=== PATIENT | male | born 1940 | race Caucasian/White ===

== ENCOUNTER 2018-11-23 19:22 | Inpatient (IN) | payer MEDICARE, OTHER ==
[~2018-11-23] VITALS: Ht 172.7 cm; Wt 110.0 kg
[2018-11-23] MEDS: FUROSEMIDE 40 MG INJ IV ONE ×2 (00:45→23:02)
[~2018-11-23 19:22] MED LIST: ARIP5TAB14 PO; ASPI-535 PO; ATEN50TA PO; BENA20TA4 PO; CALC-143 PO; DIGO250T6 PO; DILT120C10 PO; ESCI20TA38 PO; FURO80TA3 PO; HYDR-3672 PO; IBUP-1542 PO; LORA10TA3 PO; METF-849 PO; MULTI PO; PANT40TA4 PO; PIOG30TA71 PO; POTA8CAP PO; TAMS0.4C2 PO
[2018-11-23] MEDS ORDERED: LEVOFLOXACIN 750MG/D5W (PMX) 150 ML IVPB STA (19:32)
[2018-11-23] MEDS ORDERED: ALBUTEROL 0.5% (NEB) 2.5 MG/0.5 ML AMP INH STA (19:32)
[2018-11-23] MEDS ORDERED: CEFTRIAXONE 1 GM/50 ML (PMX) 50 ML IVPB STA (19:32)
--- NOTE | 2018-11-23 20:16 | ERD ---
ER Documentation Chief Complaint Chief Complaint PRATIK ROBERT,from home,low O2 sat 74% RA,wheezing,lethargic HPI This is a 78-year-old man from home who was brought in for difficulty breathing and decreased mental status. The patient is a very poor historian but can tell me that he is been ill lately with a cough and malaise and possible fever. He started wheezing and have a difficult time breathing gradually this afternoon. He says he is not in any discomfort. Patient was discharged from this hospital last night. ROS All systems reviewed and are negative except as per history of present illness. Medications Home Meds Active Scripts Pantoprazole (Protonix) 40 Mg Tabec, 40 MG PO BID, #60 TAB 1 Refill Prov:IVY GARCIANAYANA S. 11/22/18 Reported Medications Calcium Citrate/Vitamin D (Citracal-Vitamin D 200 MG-250) 1 Each Tablet, 1 EACH PO BID, TAB 11/19/18 Ibuprofen* (Ibuprofen*) 600 Mg Tablet, 600 MG PO Q6H PRN for PAIN LEVEL 1-5, TAB 11/19/18 Hydralazine Hcl* (Hydralazine Hcl*) 50 Mg Tablet, 50 MG PO Q6H, #60 TAB 11/19/18 Metformin* (Glucophage*) 500 Mg Tab, 500 MG PO WITH BREAKFAST, #30 TAB 11/19/18 Multivitamins* (Theragran*) 1 Tab Tab, 1 TAB PO DAILY, TAB 11/19/18 Aripiprazole* (Abilify*) 5 Mg Tab, 5 MG PO DAILY, #30 TAB 11/19/18 Diltiazem Hcl* (Cardizem SR*) 120 Mg Cap.sr.12h, 120 MG PO Q12, CAP 11/19/18 Pioglitazone Hcl* (Pioglitazone Hcl*) 30 Mg Tablet, 30 MG PO DAILY, TAB 11/19/18 Escitalopram Oxalate* (Escitalopram Oxalate*) 20 Mg Tablet, 20 MG PO DAILY, #30 TAB 11/19/18 Benazepril Hcl* (Benazepril Hcl*) 20 Mg Tablet, 20 MG PO DAILY, #30 TAB 11/19/18 Tamsulosin Hcl* (Tamsulosin Hcl*) 0.4 Mg Cap.er.24h, 0.4 MG PO HS, CAP 11/19/18 Aspirin Ec (Aspir 81) 81 Mg Tablet.dr, 81 MG PO DAILY, #30 TAB 11/19/18 Loratadine* (Loratadine*) 10 Mg Tablet, 10 MG PO DAILY, #30 TAB 11/19/18 Potassium Chloride* (Potassium Chloride*) 8 Meq Capsule.er, 8 MEQ PO DAILY, CAP 11/19/18 Furosemide* (Furosemide*) 80 Mg Tablet, 80 MG PO DAILY, #30 TAB 11/19/18 Atenolol* (Atenolol*) 50 Mg Tablet, 50 MG PO DAILY, #30 TAB 11/19/18 Digoxin* (Lanoxin*) 0.25 Mg Tablet, 0.25 MG PO DAILY, TAB 11/19/18 Allergies Allergies: Coded Allergies: No Known Allergy (Unverified , 11/19/18) PMhx/Soc History of Surgery: Yes (HX: ) Anesthesia Reaction: No Hx Neurological Disorder: No Hx Respiratory Disorders: No Hx Cardiac Disorders: Yes (CHF, HTN) Hx Psychiatric Problems: No Hx Miscellaneous Medical Probl: Yes (pls see EMR) Hx Alcohol Use: Yes Hx Substance Use: No Hx Tobacco Use: No Smoking Status: Never smoker FmHx Family History: No coronary disease Physical Exam Vitals Vital Signs Date Temp Pulse Resp B/P (MAP) Pulse Ox O2 O2 Flow FiO2 Time Delivery Rate 11/23/18 115 27 112/71 99 BIPAP 21:30 (85) 11/23/18 115 26 137/70 95 BIPAP 21:00 (92) 11/23/18 116 96 40 20:40 11/23/18 118 20 129/75 100 BIPAP 20:30 (93) 11/23/18 117 31 119/65 100 BIPAP 20:09 (83) 11/23/18 Non 15.0 19:49 Rebreathe r 11/23/18 Non 15 19:49 Rebreathe r 11/23/18 113 21 114/59 99 BIPAP 19:30 (77) 11/23/18 101.7 103 21 124/96 74 19:23 (105) Physical Exam Const: Well-developed, well-nourished Head: Atraumatic, normocephalic Eyes: Normal Conjunctiva, PERRLA, EOMI, normal sclera, no nystagmus ENT: Normal External Ears, Nose and Mouth, moist mucus membranes. Neck: Full range of motion. No meningismus, no lymphadenopathy. Resp: Moderate increased work of breathing, bilateral rhonchi and wheezes decreased breath sounds in the bases Cardio: Regular rate and rhythm, no murmurs, S1 S2 present Abd: Soft, non tender x 4, non distended. Normal bowel sounds, no guarding or rebound, no pulsitile abdominal masses or bruits Skin: No petechiae or rashes, no ecchymosis , no maculopapular rash Back: No midline or flank tenderness Ext: No cyanosis, or edema, FROM x 4, normal inspection, neurovascularly intact x 4 Neur: Groggy but arousable, STR 5/5 x 4, sensation intact x 4, no focal findings, cerebellum intact] Psych: Normal Mood and Affect Result Diagram: 11/23/18200611/23/182006 Results 24 hrs Laboratory Tests Test 11/23/18 19:32 11/23/18 19:59 11/23/18 20:06 11/23/18 20:07 Blood Gas Blood venous Specimen Source Arterial Blood 11/23/2018 7:50:43 Date Drawn PM Arterial Blood VENOUS LINE Gas Puncture Site Nilson Test N/A Venous Blood pH 7.257 Venous Blood pCO2 73.3 mmHG (Temp Corrected) Venous Blood pO2 42.3 mmHG (Temp Corrected) Venous Blood HCO3 31.9 mmol/L Venous Blood 66.2 mmHG Oxygen Saturation Venous Blood Base 3.2 mmol/L Excess Venous Blood 11.1 g/dl Total Hemoglobin Venous Blood 64.7 % Oxyhemoglobin Venous Blood 0.3 % Methemoglobin Carboxyhemoglobin 2.0 % Blood Gas 37.0 C Temperature Blood Gas Actual 24 Respiration Rate Blood Gas NRM Modality FiO2 100.0 % Blood Gas Suresh BENÍTEZ Critical Value Read Back Blood Gas BL Notified Whom Blood Gas 11/23/2018 8:17:21 Notified Time PM POC Venous 2.6 mmol/L Lactate Digoxin Level 0.7 ng/ml White Blood Count 11.3 10^3/ul Red Blood Count 4.76 10^6/ul Hemoglobin 9.6 g/dl Hematocrit 37.4 % Mean Corpuscular 78.6 fl Volume Mean Corpuscular 20.2 pg Hemoglobin Mean Corpuscular 25.7 g/dl Hemoglobin Concen t Red Cell 29.1 % Distribution Width Platelet Count 207 10^3/UL Mean Platelet fl Volume Immature 0.700 % Granulocytes % Neutrophils % 80.0 % Lymphocytes % 9.8 % Monocytes % 7.6 % Eosinophils % 1.0 % Basophils % 0.9 % Nucleated Red 0.2 /100WBC Blood Cells % Immature 0.080 10^3/ul Granulocytes # Neutrophils # 9.0 10^3/ul Lymphocytes # 1.1 10^3/ul Monocytes # 0.9 10^3/ul Eosinophils # 0.1 10^3/ul Basophils # 0.1 10^3/ul Nucleated Red 0.0 10^3/ul Blood Cells # Prothrombin Time 17.3 Sec Prothrombin Time 1.4 Ratio INR International 1.40 Normalized Ratio Activated 38.1 Sec Partial Thrombopl ast Time Sodium Level 147 mmol/L Potassium Level 4.2 mmol/L Chloride Level 101 mmol/L Carbon Dioxide 31 mmol/L Level Anion Gap 15 Blood Urea 39 mg/dl Nitrogen Creatinine 2.07 mg/dl Est Glomerular mL/min Filtrat Rate mL/min Glucose Level 183 mg/dl Calcium Level 8.8 mg/dl Total Bilirubin 0.5 mg/dl Direct Bilirubin 0.00 mg/dl Indirect 0.5 mg/dl Bilirubin Aspartate Amino 38 IU/L Transf (AST/SGOT) Alanine 50 IU/L Aminotransferase (ALT/SGPT) Alkaline 66 IU/L Phosphatase Troponin I 0.851 ng/ml B-Type 36465 PG/ML Natriuretic Peptide Total Protein 6.8 g/dl Albumin 3.6 g/dl Globulin 3.20 g/dl Albumin/Globulin 1.12 Ratio Current Medications Medications Dose Sig/Mare Start Time Status Last (Trade) Ordered Route PRN Stop Time Admin Dose Reason Admin Albuterol 10 mg ONCE STAT 11/23/18 DC 11/23/18 (Proventil INH 19:32 11/23/18 20:10 0.5% (Neb)) 19:35 Ceftriaxone 50 ml @ ONCE STAT 11/23/18 DC 11/23/18 Sodium 100 mls/hr IVPB 19:32 11/23/18 20:29 20:01 150 ml @ ONCE STAT 11/23/18 DC 11/23/18 Levofloxacin/ 100 mls/hr IVPB 19:32 11/23/18 20:47 Dextrose 21:01 Sodium 3,140 ml BOLUS OVER 2 11/23/18 DC 11/23/18 Chloride HOURS STAT 20:25 11/23/18 20:30 (NS) IV* 20:27 Enoxaparin 105 mg ONCE ONCE 11/23/18 DC Sodium SC 21:30 11/23/18 (Lovenox) 21:31 Procedures/MDM EKG: Rate/Rhythm: Atrial fibrillation rapid ventricular response heart rate 101, left axis deviation, right bundle branch block QRS, ST, QT: NORMAL AL, QRS, QT] Impression: Abnormal EKG MR #: [id number] DOS: 11/23/181931 Ordering MD: DANICA HALL DO Location: E/R Room/Bed: PROCEDURE: Portable chest x-ray. CLINICAL INDICATION: Shortness of breath. TECHNIQUE: Portable AP view of the chest. COMPARISON: None. FINDINGS: There are patchy bilateral lower lung opacities. The cardiac silhouette is enlarged. There is a small right pleural effusion. There is no pneumothorax. IMPRESSION: Patchy bilateral lower lung opacities, possibly representing pulmonary edema or pneumonia. Enlarged cardiac silhouette. Small right pleural effusion. RPTAT: HTAR .Mor Alvarado MD, MD Date Time Electronically viewed and signed by .Mor Alvarado MD, MD on 11/23/2018 20:16 .R/ CC: DANICA HALL DO [id number] The patient was put on BiPAP. After BiPAP the patient has improved mentally. His ABG showed elevated CO2. He is clinically improving and we will get another ABG soon Patient has elevated troponins likely due to cardiac sweating due to sepsis, he was treated with Lovenox Admit MDM: Patient's infectious symptoms have not stabilized and the patient is at risk of rapid decompensation. The patient will be admitted for careful hydration, antibiotic therapy, and infectious source control. Severe Sepsis criteria: Infectious source: Pneumonia End organ damage indicated by: Evaded lactate Lactate > 2.0 mmol/L Hypotension (SBP < 90 or >40 mmHG drop or MAP < 65) Acute Resp Failure (sat < 92% w/o oxygen) [employer] > 2.0 INR > 1.5 Plt < 100 Bili > 2 Sepsis Management: Time of recognition of severe sepsis: At time of lactate Within 3 hours of recognition: Blood cultures x 2 before broad-spectrum antibiotics: []Yes 30 ml/kg NS bolus []Completed Initial lactate 2.7 Repeat lactate pending Septic Shock Assessment: Any lactic acid > 4.0 []No Persistent hypotension (SBP < 90 or 40 mmHg drop, MAP < 65) despite 30 mL/kg IV fluid bolus []No Persistent Hypotension Treatment: Comfort care []No Hypotension caused by: pt. baseline, med-induced, erroneous value, condition other than infection []No Refusal by patient/decision maker for: blood draw, IVF, Antibiotics, Pressors []No Accepting Care Team Current data and ongoing care discussed. Time: [] Admitting Physician: Panel Technical Stenographer(s): Outstanding Data: []None Critical Care Time: 40minutes Treatments/Evaluations: Close monitoring and treatment of unstable vital signs, cardiorespiratory, and neurologic status, while maintaining tight balance of fluid, respiratory, and cardiac interventions. This includes the administration of emergency fluid management while maintaining close respiratory support as well as the provision of immediate and broad-spectrum antibiotic therapy, while performing a simultaneous assessment for possible sources in order to direct targeted therapy. This time includes discussing the case with the patient and the patient's family. This time also includes the consideration for invasive and chemical support to prevent cardiopulmonary collapse. This time does not include all procedures stated elsewhere in this record. This time also includes reviewing old records, labs and radiological studies. This time includes examining and re-examining the patient. Additionally, this time also includes arranging care with admitting and consulting physicians. Departure Diagnosis: Primary Impression: Sepsis Sepsis type: sepsis due to unspecified organism Qualified Codes: A41.9 - Sepsis, unspecified organism Additional Impressions: Pneumonia Pneumonia type: due to unspecified organism Laterality: bilateral Lung location: lower lobe of lung Qualified Codes: J18.1 - Lobar pneumonia, un specified organism Non-STEMI (non-ST elevated myocardial infarction) Condition: Stable DANICA HALL DO Nov 23, 2018 20:16
[2018-11-23] MEDS ORDERED: SODIUM CHLORIDE 0.9% 1L BAG IV* STA (20:25)
[2018-11-23] MEDS ORDERED: ENOXAPARIN 100 MG/ML SYG SC ONE (21:30)
[2018-11-23] MEDS ORDERED: SOD CHLORIDE 0.9% 1,000 ML IV SCH (21:59)
[2018-11-23] MEDS ORDERED: ONDANSETRON 4 MG INJ IV PRN ×2 (22:00→22:30)
[2018-11-23] MEDS ORDERED: ACETAMINOPHEN 325 MG TAB PO PRN (22:00)
--- NOTE | 2018-11-23 22:25 | HP ---
Date/Time of Note Date/Time of Note DATE: 11/23/18 TIME: 22:25 Assessment/Plan VTE Prophylaxis Pharmacological prophylaxis: heparin Lines/Catheters IV Catheter Type (from Nrsg): Saline Lock Assessment/Plan Assessment/Plan 1. Hypoxic and hypercapnic respiratory failure: Likely secondary to pneumonia and fluid overload -ICU admission -Supplemental oxygen, BiPAP, bronchodilators -IV antibiotic -Will diurese while closely monitoring kidney function -Repeat ABG -Pulmonary consult 2. Sepsis: As evidenced by fever and tachycardia: Secondary to pneumonia -IV antibiotic -Follow-up respiratory and blood culture results -Trend lactate 3. Positive troponin: Likely secondary to #1 and #2 -Status post treatment dose Lovenox in ER. Will continue -Trend troponin -Cardiology consult 4. Sigmoid mass: Status post biopsy during recent hospitalization. Pathology pending 5. Atrial fibrillation with RVR -will give a dose of digoxin for now 6. Renal insufficiency: Creatinine slightly worsened since discharge 2 days ago -During recent hospitalization, he was diagnosed with obstructive uropathy and was evaluated by urology -We will place a Ballard -Re-consult urology as needed -Nephrology consult 7. Diabetes: Insulin while in-house Result Diagram: 11/23/18200611/23/182006 Results 24hrs Laboratory Tests Test 11/23/18 19:32 11/23/18 19:59 11/23/18 20:06 11/23/18 20:07 Blood Gas Specimen Blood venous Source Arterial Blood 11/23/2018 7:50:43 Date Drawn PM Arterial Blood Gas VENOUS LINE Puncture Site Nilson Test N/A Venous Blood pH 7.257 L Venous Blood pCO2 73.3 H (Temp Corrected) Venous Blood pO2 42.3 H (Temp Corrected) Venous Blood HCO3 31.9 H Venous Blood 66.2 Oxygen Saturation Venous Blood Base 3.2 Excess Venous Blood Total 11.1 Hemoglobin Venous Blood 64.7 Oxyhemoglobin Venous Blood 0.3 Methemoglobin Carboxyhemoglobin 2.0 Blood Gas 37.0 Temperature Blood Gas Actual 24 Respiration Rate Blood Gas Modality NRM FiO2 100.0 Blood Gas Critical Suresh BENÍTEZ Value Read Back Blood Gas Notified [facility] Blood Gas Notified 11/23/2018 8:17:21 Time PM POC Venous Lactate 2.6 *H Digoxin Level 0.7 L White Blood Count 11.3 #H Red Blood Count 4.76 Hemoglobin 9.6 L Hematocrit 37.4 L Mean Corpuscular 78.6 L Volume Mean Corpuscular 20.2 L Hemoglobin Mean Corpuscular 25.7 L Hemoglobin Concent Red Cell 29.1 H Distribution Width Platelet Count 207 Mean Platelet Volume Immature 0.700 H Granulocytes % Neutrophils % 80.0 H Lymphocytes % 9.8 L Monocytes % 7.6 Eosinophils % 1.0 Basophils % 0.9 Nucleated Red 0.2 H Blood Cells % Immature 0.080 H Granulocytes # Neutrophils # 9.0 H Lymphocytes # 1.1 Monocytes # 0.9 Eosinophils # 0.1 Basophils # 0.1 Nucleated Red 0.0 Blood Cells # Prothrombin Time 17.3 H Prothrombin Time 1.4 Ratio INR International 1.40 Normalized Ratio Activated 38.[address] Time Sodium Level 147 H Potassium Level 4.2 Chloride Level 101 Carbon Dioxide 31 Level Anion Gap 15 #H Blood Urea 39 H Nitrogen Creatinine 2.07 H Est Glomerular Filtrat Rate mL/min Glucose Level 183 Calcium Level 8.8 Total Bilirubin 0.5 Direct Bilirubin 0.00 Indirect Bilirubin 0.5 Aspartate Amino 38 Transf (AST/SGOT) Alanine 50 Aminotransferase ( ALT/SGPT) Alkaline 66 Phosphatase Troponin I 0.851 *H B-Type Natriuretic 90753 H Peptide Total Protein 6.8 Albumin 3.6 Globulin 3.20 Albumin/Globulin 1.12 Ratio Test 11/23/18 22:01 POC Venous Lactate 1.4 HPI/ROS Admit Date/Time Admit Date/Time Hx of Present Illness This is a 78-year-old male with a history of diabetes, atrial fibrillation, sigmoid mass, obstructive uropathy who was brought to ER for shortness of breath and lethargy. Patient was just discharged from here yesterday. During the recent hospitalization, he had a biopsy of the sigmoid mass, pathology is still pending. He was also found to be in volume overload with anasarca and lower extremity edema. His creatinine was around 1.8. Patient now brought back because of severe shortness of breath and lethargy. He still has lower extremity edema. Chest x-ray shows bilateral patchy opacity. When he presented, he was febrile with a temperature of 101.7, heart rate as high as almost 120. Initial O2 sat 74. VBG shows a pH of 7.25, PCO2 73, PO2 42, bicarb 32. He has been placed on BiPAP. Initial troponin [address] elevation or depression. PMH/Family/Social Past Medical History Medications Current Medications Sodium Chloride 1,000 ml @ 80 mls/hr [id number] IV ; Start 11/23/18 at 21:59; Stop 11/24/18 at 10:28 Ondansetron HCl (Zofran Inj) 4 mg BRIDGE ORDER PRN IV NAUSEA AND/OR VOMITING; Start 11/23/18 at 22:00; Stop 11/24/18 at 21:59 Acetaminophen (Tylenol Tab) 650 mg ER BRIDGE PRN PO MILD PAIN(1-3)OR ELEVATED TEMP; Start 11/23/18 at 22:00; Stop 11/24/18 at 21:59 Ondansetron HCl (Zofran Inj) 4 mg Q6H PRN IV NAUSEA AND/OR VOMITING; Start 11/23/18 at 22:30; Status UNV Albuterol/ Ipratropium (Duoneb) 3 ml Q2H RESP THERAPY PRN NEB SHORTNESS OF BREATH; Start 11/23/18 at 22:30; Status UNV Methylprednisolone Sodium Succinate (Solu-Medrol) 60 mg ONCE ONCE IV ; Start 11/23/18 at 22:30; Stop 11/23/18 at 22:31; Status UNV Acetaminophen (Tylenol Liquid) 650 mg Q6H PRN PO PAIN LEVEL 1-3 OR FEVER; Start 11/23/18 at 22:30; Status UNV Acetaminophen (Tylenol Supp) 650 mg Q4H PRN OR PAIN LEVEL 1-3 OR FEVER; Start 11/23/18 at 22:30; Status UNV Lorazepam (Ativan) 0.5 mg Q4H PRN IV ANXIETY; Start 11/23/18 at 22:30; Status UNV Pantoprazole (Protonix Iv) 40 mg DAILY@06 IV ; Start 11/24/18 at 06:00; Status UNV Furosemide (Lasix) 40 mg ONCE ONCE IV ; Start 11/23/18 at 22:30; Stop 11/23/18 at 22:31; Status UNV Cefepime HCl 50 ml @ 100 mls/hr Q12 IVPB ; Start 11/23/18 at 22:30; Status UNV Digoxin (Digoxin) 250 mcg ONCE ONCE IV ; Start 11/23/18 at 22:30; Stop 11/23/18 at 22:31; Status UNV Coded Allergies: No Known Allergy (Unverified , 11/23/18) Past Surgical History Past Surgical Hx: other Family History Significant Family History: no pertinent family hx Social History Smoking Status: Never smoker Exam/Review of Systems Vital Signs Vitals Vital Signs Date Temp Pulse Resp B/P (MAP) Pulse Ox O2 O2 Flow FiO2 Time Delivery Rate 11/23/18 115 100 30 21:56 11/23/18 27 112/71 BIPAP 21:30 (85) 11/23/18 15.0 19:49 11/23/18 101.7 19:23 Exam Exam Constitutional: other (no acute distress) Head: normocephalic Respiratory: other (slight decreased at bases) Cardiovascular: regular rate and rhythm Gastrointestinal: soft Extremities: normal pulses PMH/Family/Social Past Medical History Medical History: other (see hpi) Coded Allergies: No Known Drug Allergy (Verified Allergy, Unknown, 07/10/16) Past Surgical History Past Surgical Hx: other (see hpi) Family History Significant Family History: no pertinent family hx Social History Alcohol Use: other Smoking Status: Unknown if ever smoked Drug Use: other AJ PIERRE MD Nov 23, 2018 22:25
[2018-11-23] MEDS ORDERED: METHYLPREDNISOLONE 125 MG INJ IV ONE (22:30)
[2018-11-23] MEDS ORDERED: DIGOXIN 500 MCG INJ IV ONE (22:30)
[2018-11-23] MEDS ORDERED: ALBUTEROL/IPRATROPIUM (NEB) 3 ML AMP NEB PRN (22:30)
[2018-11-23] MEDS: CEFEPIME 1GM/50 ML (PMX) 50 ML IVPB SCH (23:02)
[2018-11-24] VITALS (35 sets, daily range): BP systolic 95–169; BP diastolic 53–128; PULSE 64–108; RESP 14–30; Ht 172.7 cm; Wt 110.0 kg
--- NOTE | 2018-11-24 03:49 | NUR ---
ADMIT TO ICU ROOM 117 ED nurse- Mckay called and gave report @ 8101 11/23/18, per Mckay hess catheter difficult to place; was told by son that during previous recent admission "special doctor" had to place hess. Pt. arrived on the unit @ 0040. Escorted by transportation services, ED RN-Mckay, and RT-Collin. Upon arrival pt. on BiPap 08/05 R22 30% and saturating well @ 100%, tachycardic in low 100s. Slightly elevated temperature of 100.5 via axillary and 100 on recheck. Pt. A&O x2, knows his name and that he's in the hospital. Son and grandson were at bedside for an hour after arrival before going home for the evening. Per son- pt. was recently here 11/19-11/22. During his stay here he was in the ICU and Med/Surg, had rectal bleeding and a colonoscopy in which a biopsy was taken and results are pending. Was told again by son that the "special doctor" placed the Hess catheter during his last admission. Currently @ 0350: Pt. saturating well on simple mask @ 10L, repeat ABG ordered for 0400. Currently in Normal Sinus Rhythm/Sinus Tach in high 90s to low 100s. Pt. has voided and had a small BM since ICU admission. Pt. did not ask for bedpan or urinal and appears to be incontinent at this time. Dr. Farias was notified about difficult to place Hess catheter and that Dr. Cramer had to place it last time, just a few days ago. Dr. Farias also made aware of Troponin trending upwards, previous draw in Ed was 0.851 now @ 1.5. Will continue to monitor patient for the remainder of shift.
[2018-11-24] MEDS ORDERED: PANTOPRAZOLE 40 MG INJ IV SCH (06:00)
--- NOTE | 2018-11-24 07:09 | NUR ---
EOSS: Pt. came in overnight (see previous note). Pt. doing well since admit to ICU, mentation improving, pt. appears to be less lethargic as he is much more alert. Pt. still A&Ox2, aware he is in the hospital, and alert to name. Heart rate bouncing between high 90s to low 100s, last temperature check pt. afebrile @ 98.7 via axillary. Pt. placed back on BiPAP from Simple Mask @ 16/5, R12, 30% due to follow up ABG reading. Pt. was only on a simple mask for 1 hour. Pt. has had 2 BMs and has Voided x2 during shift. Pt. is incontinent, and does not ask for urinal or notify of void/BM. Ballard catheter was tried in ED but no luck, as mentioned in previous note, Dr. Cramer had to place Ballard catheter during his previous admission 11/19-11/22, Dr. Farias made aware. Son Ang at bedside from admit time until approximately 0130 in which he left to go home and sleep but said he would be back in the morning. Pt. lives with son at home and son helps manage pts. medication. Son available by phone if need be. All information will be endorsed to day shift RN.
[2018-11-24] MEDS: CEFEPIME 1GM/50 ML (PMX) 50 ML IVPB SCH ×2 (08:35→20:46)
[2018-11-24] MEDS ORDERED: ASPIRIN (EC) 81 MG TAB PO SCH (09:00)
[2018-11-24] MEDS ORDERED: ALBUTEROL/IPRATROPIUM (NEB) 3 ML AMP HHN PRN (09:00)
--- NOTE | 2018-11-24 09:09 | PN ---
Date/Time of Note Date/Time of Note DATE: 11/24/18 TIME: 08:58 Assessment/Plan VTE Prophylaxis Risk [place] [facility] [place] risk: 10 SCD applied [place] [facility] [place] No SCD contraindicated: other Pharmacological prophylaxis: LMWH Lines/Catheters IV Catheter Type (from [facility]): Saline Lock Urinary Cath still in place: No Assessment/Plan Hospital Course S: Patient presently off of BiPAP now. Waiting to be seen by multiple obiee consultant teams. O: VS - see below PE: Const: Lying in bed, no acute distress presently Head: Atraumatic, normocephalic Eyes: Normal Conjunctiva, PERRLA, EOMI, normal sclera, no nystagmus ENT: Normal External Ears, Nose and Mouth, moist mucus membranes. Neck: Supple Resp: Some increased work of breathing, bilateral rhonchi and wheezes decreased breath sounds in the bases Cardio: Regular rate and rhythm, no murmurs, S1 S2 present Abd: Soft, non tender x 4, non distended. Normal bowel sounds, no guarding or rebound Ext: No cyanosis, or edema Neur: No focal deficits Assessment/Plan: 78-year-old male recently diagnosed with new colon mass, who presents with: 1. Hypoxic and hypercapnic respiratory failure: Likely secondary to pneumonia and fluid overload. Chest x-ray positive findings, patient had fever as well. Patient required BiPAP overnight. -Continue ICU care, Supplemental oxygen, BiPAP, bronchodilators -IV antibiotic, follow culture results, Tylenol as needed fever -Follow up pulmonary recommendations -DuoNeb's as needed 2. Sepsis: As evidenced by fever and tachycardia: Secondary to pneumonia -see #1. -Again, continue broad-spectrum IV antibiotic -Follow-up respiratory and blood culture results -Lactic acid slightly elevated, continue to trend lactate 3. Positive troponin: Likely secondary to #1 and #2-Status post treatment dose Lovenox in ER. -Continue to trend troponin -We will obtain cardiology consult 4. Sigmoid mass: Status post biopsy during recent hospitalization. Pathology pending -there is a suspicion of colon cancer given elevated tumor markers -Follow-up results of biopsy performed a few days ago -We will also reconsult hematology oncology, GI, and neurosurgery teams. 5. Atrial fibrillation with RVR -appears to be resolved presently after getting a dose of digoxin. -Continue to monitor, again will obtain cardiology consult 6. Renal insufficiency: Creatinine slightly worsened since discharge 2 days ago-During recent hospitalization, he was diagnosed with obstructive uropathy and was evaluated by urology at that time. -Continue Ballard -Re-consult urology as needed -Consider nephrology consult 7. Diabetes: Insulin while in-house Critical care time spent on patient care today equals 50 minutes. Result Diagram: 11/24/18 0408 11/24/18 0408 Results 24hrs Laboratory Tests Test 11/23/18 19:32 11/23/18 19:59 11/23/18 20:06 11/23/18 20:07 Blood Gas Blood venous Specimen Source Arterial Blood 11/23/2018 7:50:43 Date Drawn PM Arterial Blood VENOUS LINE Gas Puncture Site Nilson Test N/A Venous Blood pH 7.257 L Venous Blood 73.3 H pCO2 (Temp Corrected) Venous Blood pO2 42.3 H (Temp Corrected) Venous Blood 31.9 H HCO3 Venous Blood 66.2 Oxygen Saturation Venous Blood 3.2 Base Excess Venous Blood 11.1 Total Hemoglobin Venous Blood 64.7 Oxyhemoglobin Venous Blood 0.3 Methemoglobin Carboxyhemoglobi 2.0 n Blood Gas 37.0 Temperature Blood Gas Actual 24 Respiration Rate Blood Gas NRM Modality FiO2 100.0 Blood Gas Critical Value Suresh LOZANO Read Back Blood Gas BL Notified Whom Blood Gas 11/23/2018 8:17:21 Notified Time PM POC Venous 2.6 *H Lactate Digoxin Level 0.7 L White Blood 11.3 #H Count Red Blood Count 4.76 Hemoglobin 9.6 L Hematocrit 37.4 L Mean Corpuscular 78.6 L Volume Mean Corpuscular 20.2 L Hemoglobin Mean Corpuscular 25.7 L Hemoglobin Sonali nt Red Cell 29.1 H Distribution Width Platelet Count 207 Mean Platelet Volume Immature 0.700 H Granulocytes % Neutrophils % 80.0 H Lymphocytes % 9.8 L Monocytes % 7.6 Eosinophils % 1.0 Basophils % 0.9 Nucleated Red 0.2 H Blood Cells % Immature 0.080 H Granulocytes # Neutrophils # 9.0 H Lymphocytes # 1.1 Monocytes # 0.9 Eosinophils # 0.1 Basophils # 0.1 Nucleated Red 0.0 Blood Cells # Prothrombin Time 17.3 H Prothrombin Time 1.4 Ratio INR 1.40 International Normalized Ratio Activated 38.1 H Partial Thrombop last Time Sodium Level 147 H Potassium Level 4.2 Chloride Level 101 Carbon Dioxide 31 Level Anion Gap 15 #H Blood Urea 39 H Nitrogen Creatinine 2.07 H Est Glomerular Filtrat Rate mL/min Glucose Level 183 Calcium Level 8.8 Total Bilirubin 0.5 Direct Bilirubin 0.00 Indirect 0.5 Bilirubin Aspartate Amino 38 Transf (AST/SGOT ) Alanine 50 Aminotransferase (ALT/SGPT) Alkaline 66 Phosphatase Troponin I 0.851 *H B-Type 43881 H Natriuretic Peptide Total Protein 6.8 Albumin 3.6 Globulin 3.20 Albumin/Globulin 1.12 Ratio Test 11/23/18 22:01 11/23/18 23:30 11/24/18 01:19 11/24/18 04:00 POC Venous 1.4 Lactate Lactic Acid 2.2 *H Level Creatine Kinase 301 H Creatine Kinase 0.5 Index Creatinine 1.61 Kinase MB (Mass) Troponin I 1.500 *H Blood Gas Blood arterial Specimen Source Arterial Blood 11/24/2018 4:14:08 Date Drawn AM Arterial Blood 7.339 L pH (Temp corrected) Arterial Blood 53.4 H pCO2 (Temp correct) Arterial Blood 142.9 H pO2 (Temp corrected) Arterial Blood 28.1 H HCO3 Arterial Blood 1.7 Base Excess Arterial Blood 98.6 Oxygen Saturatio n Nilson Test ACCEPTAB Arterial Blood Right Radial Gas Puncture Site Arterial 1.3 Blood Carboxyhem oglobin Arterial Blood 0.4 Methemoglobin Blood Gas A-a O2 233.4 H Differential Oxyhemoglobin 96.9 Percent Blood Gas 37.0 Temperature Blood Gas Actual 20 Respiration Rate Blood Gas MASK - SIMPLE Modality FiO2 61.0 Blood Gas MM Notified Whom Blood Gas 11/24/2018 4:21:05 Notified Time AM Test 11/24/18 04:07 11/24/18 04:08 11/24/18 07:29 Lactic Acid 2.1 *H Level White Blood 11.3 H Count Red Blood Count 4.39 L Hemoglobin 9.0 L Hematocrit 34.5 L Mean Corpuscular 78.6 L Volume Mean Corpuscular 20.5 L Hemoglobin Mean Corpuscular 26.1 L Hemoglobin Sonali nt Red Cell 29.6 H Distribution Width Platelet Count 179 Mean Platelet Volume Immature 0.500 H Granulocytes % Neutrophils % 90.2 H Segmented 93 H Neutrophils % (Manual) Band Neutrophils 1 % (Manual) Lymphocytes % 6.5 L Lymphocytes % 2 L (Manual) Monocytes % 1.8 Eosinophils % 0.3 Eosinophils % 1 (Manual) Basophils % 0.7 Basophils % 1 (Manual) Myelocytes % 2 H (Manual) Nucleated Red 0.0 Blood Cells % Immature 0.060 H Granulocytes # Neutrophils # 10.2 H Neutrophils # 10.5 H (Manual) Band Neutrophils 0.1 # Lymphocytes 0.2 L (Manual) Lymphocytes # 0.7 L Monocytes # 0.2 L Eosinophils # 0.0 Basophils # 0.1 Basophils # 0.1 H (Manual) Myelocytes # 0.2 H Nucleated Red 0.0 Blood Cells # Toxic 1+ Granulation Platelet NORMAL Estimate Giant Platelets 3 H Polychromasia 1+ Poikilocytosis 1+ Anisocytosis 2+ Microcytosis 2+ Macrocytosis 1+ Sodium Level 149 H Potassium Level 4.4 Chloride Level 107 Carbon Dioxide 31 Level Anion Gap 11 Blood Urea 41 H Nitrogen Creatinine 1.84 H Est Glomerular Filtrat Rate mL/min Glucose Level 150 Calcium Level 8.4 Total Bilirubin 0.3 Direct Bilirubin 0.00 Indirect 0.3 Bilirubin Aspartate Amino 52 H Transf (AST/SGOT ) Alanine 49 Aminotransferase (ALT/SGPT) Alkaline 54 Phosphatase Total Protein 6.2 Albumin 3.2 L Globulin 3.00 Albumin/Globulin 1.06 Ratio Creatine Kinase 549 #H Creatine Kinase 0.5 Index Creatinine 2.64 H Kinase MB (Mass) Troponin I 1.200 *H Exam/Review of Systems Vital Signs Vitals Vital Signs Date Temp Pulse Resp B/P (MAP) Pulse Ox O2 O2 Flow FiO2 Time Delivery Rate 11/24/18 99 20 128/67 96 BIPAP 07:00 (87) 11/24/18 30 04:31 11/24/18 98.7 10.0 04:00 Intake and Output 11/23/18 11/23/18 11/24/18 1515:00 23:00 07:00 IntakeIntake Total 560 ml OutputOutput Total 0 ml BalanceBalance 560 ml Medications Medications Current Medications Sodium Chloride 1,000 ml @ 80 mls/hr [id number] IV Last administered on 11/23/18at 22:42; Admin Dose 80 MLS/HR; Start 11/23/18 at 21:59; Stop 11/24/18 at 10:28 Ondansetron HCl (Zofran Inj) 4 mg Q6H PRN IV NAUSEA AND/OR VOMITING; Start 11/23/18 at 22:30 Albuterol/ Ipratropium (Duoneb) 3 ml Q2H RESP THERAPY PRN NEB SHORTNESS OF BREATH; Start 11/23/18 at 22:30 Acetaminophen (Tylenol Liquid) 650 mg Q6H PRN PO PAIN LEVEL 1-3 OR FEVER; Start 11/23/18 at 22:30 Acetaminophen (Tylenol Supp) [address] PAIN LEVEL 1-3 OR FEVER; Start 11/23/18 at 22:30 Lorazepam (Ativan) 0.5 mg Q4H PRN IV ANXIETY; Start 11/23/18 at 22:30 Pantoprazole (Protonix Iv) 40 mg DAILY@06 IV Last administered on 11/24/18at 06:21; Admin Dose 40 MG; Start 11/24/18 at 06:00 Cefepime HCl 50 ml @ 100 mls/hr Q12 IVPB Last administered on 11/24/18at 08:35; Admin Dose 100 MLS/HR; Start 11/23/18 at 22:30 Aspirin (Halfprin) 81 mg DAILY PO Last administered on 11/24/18at 08:35; Admin D ose 81 MG; Start 11/24/18 at 09:00 Atorvastatin Calcium (Lipitor) 20 mg HS PO ; Start 11/24/18 at 21:00 NAYANA GARCIA Nov 24, 2018 09:09
[2018-11-24] MEDS ORDERED: DEXTROSE 5% 1,000 ML IV SCH (09:30)
[2018-11-24] MEDS ORDERED: FUROSEMIDE 40 MG TAB PO SCH (09:30)
[2018-11-24] MEDS ORDERED: IBUPROFEN 600 MG TAB PO PRN (09:30)
[2018-11-24] MEDS ORDERED: POTASSIUM CHLORIDE (SR) 8 MEQ CAP PO SCH (10:00)
[2018-11-24] MEDS: ESCITALOPRAM 10 MG TAB PO SCH (10:01)
[2018-11-24] MEDS: ARIPIPRAZOLE 5 MG TAB PO SCH (10:01)
[2018-11-24] MEDS: ATENOLOL 50 MG TAB PO SCH (10:01)
[2018-11-24] MEDS: MULTIVITAMINS THERAPEUTIC TAB PO SCH (10:02)
[2018-11-24] MEDS: CALCIUM/VITAMIN D (500/200) TAB PO SCH (10:12)
[2018-11-24] MEDS: LORATADINE 10 MG TAB PO SCH (10:12)
--- NOTE | 2018-11-24 10:57 | NUR ---
SS NOTE: READMISSION MET WITH PT AND SON, PAWAN AT PT'S BEDSIDE. PT ALERT/ORIENTED X3. LIVES AT HOME WITH SON WHO IS PT'S CAREGIVER. PT WAS DISCHARGED ON 11/22/19 AND WAS READMITTED DUE TO SEPSIS, PNA. SON REPORTED THAT PT HAD AN APPOINTMENT WITH GI ON Thursday11/25/18 BUT WAS HOSPITALIZED. SON REPORTED NO ISSUES WITH PT'S MEDICATION BUT FEELS THAT SOME OF THE MEDICATIONS MIGHT BE MAKING PT VERY SLEEPY. SW ENCOURAGED HIM TO DISCUSS HIS CONCERN WITH MD FOR POSSIBLE CHANGES IN MEDS OR DOSAGES. SON WILL F/U. SW ALSO DISCUSSED AHCD. SON REPORTED THAT PT DOES NOT HAVE AHCD. PT STATED THAT HIS SON CAN MAKE DECISIONS FOR HIM IF NEEDED. DECLINED AHCD FORM AT THIS TIME. PT WILL RETURN HOME WITH FAMILY AFTER D/C. NO OTHER ISSUES PRESENT AT TIME. SW WILL CONTINUE TO REMAIN AVAILABLE NEEDED.
[2018-11-24] MEDS ORDERED: METOPROLOL 5 MG INJ IV PRN (11:00)
--- NOTE | 2018-11-24 11:11 | NUR ---
PT EVAL Therapy day number 1 Evaluation Start Time 10:15 Evaluation Total Time 0 min Subjective Current complaint of pain Pain Scale NUMERIC Pain Intensity 0 (0-10) Patient Stated Goal for Pain Relief 0 (0-10) Pain Level Comment denies pain Pre Treatment Vital Signs Stable Yes - 110/48, 91% RA, 101 bpm Exercise Assessment Label Bilat Lower Extremity Exercise Type Active ROM Additional Exercise Comments semi-supine APs, heel slides, SLR Supine to Sit Minimum Assist Bed Mobility Sit to Supine Moderate Assist Sitting Tolerance 15 min Additional Mobility Comments dependent for scooting up in bed; rolling to L and R with Margaux Patient uses wheelchair Not Applicable Additional Gait Comments TBA Static Sitting Balance Good Dynamic Sitting Balance Fair plus Safety Judgement Good Activity Tolerance Good Equipment Present IV pump Additional Equipment Present ICU lines; O2 via NC Post Treatment Pain Intensity 0 0-10 Variance Documentation SEE PT EVAL PT Technical Record Comment PT EVAL Pt is a 78 yo M with PMH of DM, Afib, sigmoid mass, obstructive uropathy who was brought ot ER with SOB and lethargy. Pt was d/c'd from [facility] on 11/22. Pt admitted for hypoxic and hypercapnic respiratory failure likely 2/2 PNA and fluid overload. Pt with elevated troponins, EKG without ST elevation or depression. Dr. Ferro (cardiology) cleared pt for bed level assessment. pt received in ICU. PLOF: Per son, pt lives with son and dtr-in-law in single story home with 2 small steps or ramp to enter. Prior to 11/11 admission, pt was ambulatory without AD, using cane occassionally. When d/c'd on 11/22, pt was using FWW for mobility. CLOF: LEYLA Gutierrez and Dr. Ferro cleared pt for bed-level PT evaluation. Pt received in bed, vitals assessed and stable, son at bedside, pt agreeable to and educated in purpose of PT eval. B UE/LE ROM/strength WFL. Bed mobility assessment as above. Pt returned to bed, all needs in reach, no signs of distress. RN attending to pt at end of session, notified of pt's status. Recommendation: Pt demonstrates mild overall weakness, requiring Margaux for rolling and Margaux for supine>sitting EOB. Sitting balance good. Pt will benefit from additional skilled PT services during hospital stay to improve overall mobility and strength. Gait TBA. D/c recommendation pending pt progress, anticipating home discharge with family assistance once cleared by MD. No anticipated DME needs. Plan: Continue c PT POC (daily x 5)
--- NOTE | 2018-11-24 11:14 | CONS ---
Date/Time of Note Date/Time of Note DATE: 11/24/18 TIME: 11:10 Assessment/Plan Assessment/Plan Hospital Course unfortunate 78 yo with what appears to be locally advanced colon ca, path pending he has very poor performance status and multiple co-morbidities surgery has seen pt and feels he may not be an appropriate resection candidate given patient's tenuous status that is a reasonable assessment I explained to pt's family that we are working under the assumption that this is colon ca given that he appears to have localized disease, once path back (which should be by end of day, or latest by ) ideally surgical resection is optimal treatment but again given his multiple medical issues, a palliative rectal stent may be an initial approach discussed with family and son at bedside Result Diagram: 11/24/18 0408 11/24/188 Results 24hrs Laboratory Tests Test 11/23/18 19:32 11/23/18 19:59 11/23/18 20:06 11/23/18 20:07 Blood Gas Blood venous Specimen Source Arterial Blood 11/23/2018 7:50:43 Date Drawn PM Arterial Blood VENOUS LINE Gas Puncture Site Nilson Test N/A Venous Blood pH 7.257 L Venous Blood 73.3 H pCO2 (Temp Corrected) Venous Blood pO2 42.3 H (Temp Corrected) Venous Blood 31.9 H HCO3 Venous Blood 66.2 Oxygen Saturation Venous Blood 3.2 Base Excess Venous Blood 11.1 Total Hemoglobin Venous Blood 64.7 Oxyhemoglobin Venous Blood 0.3 Methemoglobin Carboxyhemoglobi 2.0 n Blood Gas 37.0 Temperature Blood Gas Actual 24 Respiration Rate Blood Gas NRM Modality FiO2 100.0 Blood Gas Critical Value Suresh LOZANO Read Back Blood Gas BL Notified Whom Blood Gas 11/23/2018 8:17:21 Notified Time PM POC Venous 2.6 *H Lactate Digoxin Level 0.7 L White Blood 11.3 #H Count Red Blood Count 4.76 Hemoglobin 9.6 L Hematocrit 37.4 L Mean Corpuscular 78.6 L Volume Mean Corpuscular 20.2 L Hemoglobin Mean Corpuscular 25.7 L Hemoglobin Sonali nt Red Cell 29.1 H Distribution Width Platelet Count 207 Mean Platelet Volume Immature 0.700 H Granulocytes % Neutrophils % 80.0 H Lymphocytes % 9.8 L Monocytes % 7.6 Eosinophils % 1.0 Basophils % 0.9 Nucleated Red 0.2 H Blood Cells % Immature 0.080 H Granulocytes # Neutrophils # 9.0 H Lymphocytes # 1.1 Monocytes # 0.9 Eosinophils # 0.1 Basophils # 0.1 Nucleated Red 0.0 Blood Cells # Prothrombin Time 17.3 H Prothrombin Time 1.4 Ratio INR 1.40 International Normalized Ratio Activated 38.1 H Partial Thrombop last Time Sodium Level 147 H Potassium Level 4.2 Chloride Level 101 Carbon Dioxide 31 Level Anion Gap 15 #H Blood Urea 39 H Nitrogen Creatinine 2.07 H Est Glomerular Filtrat Rate mL/min Glucose Level 183 Calcium Level 8.8 Total Bilirubin 0.5 Direct Bilirubin 0.00 Indirect 0.5 Bilirubin Aspartate Amino 38 Transf (AST/SGOT ) Alanine 50 Aminotransferase (ALT/SGPT) Alkaline 66 Phosphatase Troponin I 0.851 *H B-Type 04845 H Natriuretic Peptide Total Protein 6.8 Albumin 3.6 Globulin 3.20 Albumin/Globulin 1.12 Ratio Test 11/23/18 22:01 11/23/18 23:30 11/24/18 01:19 11/24/18 04:00 POC Venous 1.4 Lactate Lactic Acid 2.2 *H Level Creatine Kinase 301 H Creatine Kinase 0.5 Index Creatinine 1.61 Kinase MB (Mass) Troponin I 1.500 *H Blood Gas Blood arterial Specimen Source Arterial Blood 11/24/2018 4:14:08 Date Drawn AM Arterial Blood 7.339 L pH (Temp corrected) Arterial Blood 53.4 H pCO2 (Temp correct) Arterial Blood 142.9 H pO2 (Temp corrected) Arterial Blood 28.1 H HCO3 Arterial Blood 1.7 Base Excess Arterial Blood 98.6 Oxygen Saturatio n Nilson Test ACCEPTAB Arterial Blood Right Radial Gas Puncture Site Arterial 1.3 Blood Carboxyhem oglobin Arterial Blood 0.4 Methemoglobin Blood Gas A-a O2 233.4 H Differential Oxyhemoglobin 96.9 Percent Blood Gas 37.0 Temperature Blood Gas Actual 20 Respiration Rate Blood Gas MASK - SIMPLE Modality FiO2 61.0 Blood Gas MM Notified Whom Blood Gas 11/24/2018 4:21:05 Notified Time AM Test 11/24/18 04:07 11/24/18 04:08 11/24/18 07:29 Lactic Acid 2.1 *H Level White Blood 11.3 H Count Red Blood Count 4.39 L Hemoglobin 9.0 L Hematocrit 34.5 L Mean Corpuscular 78.6 L Volume Mean Corpuscular 20.5 L Hemoglobin Mean Corpuscular 26.1 L Hemoglobin Sonali nt Red Cell 29.6 H Distribution Width Platelet Count 179 Mean Platelet Volume Immature 0.500 H Granulocytes % Neutrophils % 90.2 H Segmented 93 H Neutrophils % (Manual) Band Neutrophils 1 % (Manual) Lymphocytes % 6.5 L Lymphocytes % 2 L (Manual) Monocytes % 1.8 Eosinophils % 0.3 Eosinophils % 1 (Manual) Basophils % 0.7 Basophils % 1 (Manual) Myelocytes % 2 H (Manual) Nucleated Red 0.0 Blood Cells % Immature 0.060 H Granulocytes # Neutrophils # 10.2 H Neutrophils # 10.5 H (Manual) Band Neutrophils 0.1 # Lymphocytes 0.2 L (Manual) Lymphocytes # 0.7 L Monocytes # 0.2 L Eosinophils # 0.0 Basophils # 0.1 Basophils # 0.1 H (Manual) Myelocytes # 0.2 H Nucleated Red 0.0 Blood Cells # Toxic 1+ Granulation Platelet NORMAL Estimate Giant Platelets 3 H Polychromasia 1+ Poikilocytosis 1+ Anisocytosis 2+ Microcytosis 2+ Macrocytosis 1+ Sodium Level 149 H Potassium Level 4.4 Chloride Level 107 Carbon Dioxide 31 Level Anion Gap 11 Blood Urea 41 H Nitrogen Creatinine 1.84 H Est Glomerular Filtrat Rate mL/min Glucose Level 150 Calcium Level 8.4 Total Bilirubin 0.3 Direct Bilirubin 0.00 Indirect 0.3 Bilirubin Aspartate Amino 52 H Transf (AST/SGOT ) Alanine 49 Aminotransferase (ALT/SGPT) Alkaline 54 Phosphatase Total Protein 6.2 Albumin 3.2 L Globulin 3.00 Albumin/Globulin 1.06 Ratio Creatine Kinase 549 #H Creatine Kinase 0.5 Index Creatinine 2.64 H Kinase MB (Mass) Troponin I 1.200 *H Consultation Date/Type/Reason Admit Date/Time Hx of Present Illness 78 yo admitted about 1 week ago when he presented to ER with weakness. Increasingly fatigued x several weels prior to admission. The family also reported that they noticed that he had swelling of his bilateral legs which has been gradually increasing over the last few months. Family also noted BRBPR. On initial eval in ER, labs showed critical anemia with hgb 4.6, iron studies c.w profound iron deficiency ferritin 4 iron sat 5%, serum iron 18. He was transfused, stabilized, Underwent colonoscopy showing sigmoid mass, path pending. Also had CT CAP showing no distant disease He was discharged on Thursday as family did not want surgery input and now returns and is back in ICU, hypoxic, CHF, +troponin leak We have been asked to see him again for oncology input Final path still pending, being reviewed by pathologist now Subjective hx not possible: pt critical Constitutional: poor po ENT: no complaints Respiratory: cough, shortness of breath Cardiovascular: no complaints Gastrointestinal: no complaints Genitourinary: no complaints Musculoskeletal: no complaints Skin: no complaints Endocrine: no complaints Lymphatic: no complaints Psychological: no complaints Past Medical History Medications Current Medications Ondansetron HCl (Zofran Inj) 4 mg Q6H PRN IV NAUSEA AND/OR VOMITING; Start 11/23/18 at 22:30 Acetaminophen (Tylenol Liquid) 650 mg Q6H PRN PO PAIN LEVEL 1-3 OR FEVER; Start 11/23/18 at 22:30 Acetaminophen (Tylenol Supp) 650 mg Q4H PRN SD PAIN LEVEL 1-3 OR FEVER; Start 11/23/18 at 22:30 Lorazepam (Ativan) 0.5 mg Q4H PRN IV ANXIETY; Start 11/23/18 at 22:30 Pantoprazole (Protonix Iv) 40 mg DAILY@06 IV Last administered on 11/24/18at 06:21; Admin Dose 40 MG; Start 11/24/18 at 06:00 Cefepime HCl 50 ml @ 100 mls/hr Q12 IVPB Last administered on 11/24/18at 08:35; Admin Dose 100 MLS/HR; Start 11/23/18 at 22:30 Atorvastatin Calcium (Lipitor) 20 mg HS PO ; Start 11/24/18 at 21:00 Albuterol/ Ipratropium (Duoneb) 3 ml Q4H RESP THERAPY PRN HHN SHORTNESS OF B REATH; Start 11/24/18 at 09:00 Dextrose 1,000 ml @ 75 mls/hr [id number] IV Last administered on 11/24/18at 10:02; Admin Dose 75 MLS/HR; Start 11/24/18 at 09:30; Stop 11/24/18 at 21:30 Aripiprazole (Abilify) 5 mg DAILY PO Last administered on 1/2/19at 10:01; Admin Dose 5 MG; Start 11/24/18 at 09:30 Atenolol (Tenormin) 50 mg DAILY PO Last administered on 11/24/18 10:01; Admin Dose 50 MG; Start 11/24/18 at 09:30 Digoxin (Digoxin) 0.25 mg DAILY@1300 PO ; Start 11/24/18 at 13:00 Diltiazem HCl (Cardizem Sr) 120 mg Q12 PO ; Start 11/24/18 at 10:00 Escitalopram Oxalate (Lexapro) 20 mg DAILY PO Last administered on 11/24/18 10:01; Admin Dose 20 MG; Start 11/24/18 at 09:30 Furosemide (Lasix) 80 mg DAILY@0600 PO Last administered on 11/24/18 10:01; Admin Dose 80 MG; Start 11/24/18 at 09:30 Hydralazine HCl (Apresoline) 50 mg Q6 PO Last administered on 11/24/18 10:02; Admin Dose 50 MG; Start 11/24/18 at 09:30 Ibuprofen (Motrin) 600 mg Q6H PRN PO PAIN LEVEL 1-5; Start 11/24/18 at 09:30 Loratadine (Claritin) 10 mg DAILY PO Last administered on 11/24/18 10:12; Admin Dose 10 MG; Start 11/24/18 at 10:00 Multivitamins Therapeutic (Theragran) 1 tab DAILY PO Last administered on 11/24/18 10:02; Admin Dose 1 TAB; Start 11/24/18 at 09:30 Potassium Chloride (Micro-K) 8 meq DAILY PO Last administered on 11/24/18 10:12; Admin Dose 8 MEQ; Start 11/24/18 at 10:00 Tamsulosin HCl (Flomax) 0.4 mg HS PO ; Start 11/24/18 at 21:00 Calcium/Vitamin D (Oyster Shell/ Vit-D (500/200)) 1 tab DAILY PO Last administered on 11/24/18 10:12; Admin Dose 1 TAB; Start 11/24/18 at 09:30 Aspirin (Ecotrin) 325 mg DAILY PO ; Start 11/25/18 at 09:00 Metoprolol Tartrate (Lopressor) 5 mg Q4H PRN IV HR>110 Hold SBP<100; Start 11/24/18 at 11:00 Allergies: Coded Allergies: No Known Allergy (Unverified , 11/23/18) Past Surgical History Past Surgical Hx: other Social History Smoking Status: Never smoker Exam/Review of Systems Vital Signs Vitals Vital Signs Date Temp Pulse Resp B/P (MAP) Pulse Ox O2 O2 Flow FiO2 Time Delivery Rate 11/24/18 98 08:00 11/24/18 20 128/67 96 BIPAP 07:00 (87) 11/24/18 30 04:31 11/24/18 98.7 10.0 04:00 Intake and Output 11/23/18 11/23/18 11/24/18 1515:00 23:00 07:00 IntakeIntake Total 560 ml OutputOutput Total 0 ml BalanceBalance 560 ml Exam Constitutional: frail Psych: confusion Eyes: other (pale) Respiratory: normal air movement Medications Medications Current Medications Ondansetron HCl (Zofran Inj) 4 mg Q6H PRN IV NAUSEA AND/OR VOMITING; Start 11/23/18 at 22:30 Acetaminophen (Tylenol Liquid) 650 mg Q6H PRN PO PAIN LEVEL 1-3 OR FEVER; Start 11/23/18 at 22:30 Acetaminophen (Tylenol Supp) 650 mg Q4H PRN SD PAIN LEVEL 1-3 OR FEVER; Start 11/23/18 at 22:30 Lorazepam (Ativan) 0.5 mg Q4H PRN IV ANXIETY; Start 11/23/18 at 22:30 Pantoprazole (Protonix Iv) 40 mg DAILY@06 IV Last administered on 11/24/18at 06:21; Admin Dose 40 MG; Start 11/24/18 at 06:00 Cefepime HCl 50 ml @ 100 mls/hr Q12 IVPB Last administered on 11/24/18at 08:35; Admin Dose 100 MLS/HR; Start 11/23/18 at 22:30 Atorvastatin Calcium (Lipitor) 20 mg HS PO ; Start 11/24/18 at 21:00 Albuterol/ Ipratropium (Duoneb) 3 ml Q4H RESP THERAPY PRN HHN SHORTNESS OF B REATH; Start 11/24/18 at 09:00 Dextrose 1,000 ml @ 75 mls/hr [id number] IV Last administered on 11/24/18at 10:02; Admin Dose 75 MLS/HR; Start 11/24/18 at 09:30; Stop 11/24/18 at 21:30 Aripiprazole (Abilify) 5 mg DAILY PO Last administered on 11/24/18 10:01; Admin Dose 5 MG; Start 11/24/18 at 09:30 Atenolol (Tenormin) 50 mg DAILY PO Last administered on 11/24/18 10:01; Admin Dose 50 MG; Start 11/24/18 at 09:30 Digoxin (Digoxin) 0.25 mg DAILY@1300 PO ; Start 11/24/18 at 13:00 Diltiazem HCl (Cardizem Sr) 120 mg Q12 PO ; Start 11/24/18 at 10:00 Escitalopram Oxalate (Lexapro) 20 mg DAILY PO Last administered on 11/24/18 10:01; Admin Dose 20 MG; Start 11/24/18 at 09:30 Furosemide (Lasix) 80 mg DAILY@0600 PO Last administered on 11/24/18 10:01; Admin Dose 80 MG; Start 11/24/18 at 09:30 Hydralazine HCl (Apresoline) 50 mg Q6 PO Last administered on 11/24/18 10:02; Admin Dose 50 MG; Start 11/24/18 at 09:30 Ibuprofen (Motrin) 600 mg Q6H PRN PO PAIN LEVEL 1-5; Start 11/24/18 at 09:30 Loratadine (Claritin) 10 mg DAILY PO Last administered on 11/24/18 10:12; Admin Dose 10 MG; Start 11/24/18 at 10:00 Multivitamins Therapeutic (Theragran) 1 tab DAILY PO Last administered on 11/24/18 10:02; Admin Dose 1 TAB; Start 11/24/18 at 09:30 Potassium Chloride (Micro-K) 8 meq DAILY PO Last administered on 11/24/18 10:12; Admin Dose 8 MEQ; Start 11/24/18 at 10:00 Tamsulosin HCl (Flomax) 0.4 mg HS PO ; Start 11/24/18 at 21:00 Calcium/Vitamin D (Oyster Shell/ Vit-D (500/200)) 1 tab DAILY PO Last administered on 11/24/18 10:12; Admin Dose 1 TAB; Start 11/24/18 at 09:30 Aspirin (Ecotrin) 325 mg DAILY PO ; Start 11/25/18 at 09:00 Metoprolol Tartrate (Lopressor) 5 mg Q4H PRN IV HR>110 Hold SBP<100; Start 11/24/18 at 11:00 TEO LOZOYA Nov 24, 2018 11:14
[2018-11-24] MEDS: DILTIAZEM (SR) 60 MG CAP PO SCH ×2 (12:00→20:49)
--- NOTE | 2018-11-24 12:12 | NUR ---
Held 10 am Diltiazem d/t delay in administration (procedures, tests, frequent clean ups and other BP meds all administered an hour or two prior). By the time RN went to administer it, BP and HR were low with other cardiac meds ordered within a couple of hours.
--- NOTE | 2018-11-24 12:27 | CONS ---
DATE OF ADMISSION: 11/23/2018 DATE OF CONSULTATION: TYPE OF CONSULTATION: Pulmonary. REASON FOR CONSULT: Respiratory distress. HISTORY OF PRESENT ILLNESS: This is a 78-year-old gentleman, recent diagnosis of colon cancer follow ing presentation for severe anemia, came in yesterday with increasing shortness of breath, orthopnea, PND, mild hypoxemia, initially requiring noninvasive positive pressure ventilation. Chest x-ray dem onstrated pulmonary edema versus pneumonia in addition to atrial fibrillation with rapid ventricular rate and elevated troponin. The patient initially was on noninvasive positive pressure ventilation, now titrated down to nasal cannula O2, remains awake, alert, oriented, responding in full and complet e sentences. PAST MEDICAL HISTORY: 1. Severe anemia. 2. Colon carcinoma. 3. AFib with RVR. 4. Hypoxemic respiratory failure. MEDICATIONS: Per chart. ALLERGIES: NONE. SOCIAL HISTORY: Nonsmoker. No alcohol, no history of drug use. FAMILY HISTORY: Noncontributory. SYSTEMS REVIEW: A 12-point review of systems was negative other than mentioned above. PHYSICAL EXAMINATION: GENERAL: Well-nourished, well-developed gentleman, comfortable at rest, talking in full and complete sentences. VITAL SIGNS: Currently afebrile, pulse is 100, blood pressure 128/67, O2 saturation 96% on nasal can nula. NECK: Supple. No JVD or lymphadenopathy. CARDIAC: S1, S2. No added sounds or murmurs. CHEST: Diminished air entry bilaterally with few rales. ABDOMEN: Soft, nontender. No guarding or rebound. EXTREMITIES: No clubbing, cyanosis or edema. NEUROLOGIC: Grossly intact. No focal deficits. LABORATORIES: White count 11.3, hemoglobin 9, platelets 179. BUN 41, creatinine 1.84. Troponin sergo nding down now 1.2. Lactic acid from 2.2 to 2.1. Arterial blood gas PaO2 was 142 on BiPAP on simple mask. DIAGNOSTIC DATA: Chest x-ray was reviewed, which showed patchy bilateral infiltrates, possible under lying pneumonia. IMPRESSION AND PLAN: 1. Acute hypoxemic respiratory failure, likely secondary to congestive cardiac failure versus commun ity-acquired pneumonia. 2. Sigmoid mass, presumed colon cancer with recent severe anemia. 3. Non-ST elevation myocardial infarction. The patient is not a candidate for heparin given signifi cant severe anemia. I discussed with cardiology. I agree with aspirin. 4. Atrial fibrillation with rapid ventricular response, now rate controlled. Continue cardiac recom mendations. Dictated By: JANNET BERG MD SV/JOANN Conf#: [id number] DID#: [id number] CC: AJ PIERRE MD; MARILEE CHAVEZ MD; NAYANA GARCIA;*EndCC*
--- NOTE | 2018-11-24 12:53 | CONS ---
DATE OF ADMISSION: 11/23/2018 DATE OF CONSULTATION: TYPE OF CONSULTATION: Gastroenterology. Dear Dr. Garcia: Thank you for asking me to see Mr. Sanders in GI consultation. HISTORY OF PRESENT ILLNESS: The patient, as you know, is a 78-year-old French gentleman was admitt ed to the hospital last night because of history of shortness of breath and apparently, he was found to have elevated troponin level of 1.500 and today, it is 1.20. CPK-MB is 2.64. He had a colonoscop y done last admission before he got discharged and he is found to have an ulcerated and stenotic sigm oid mass. Biopsies are pending. PHYSICAL EXAMINATION: GENERAL: The patient is alert. He is not really in respiratory distress. CARDIOVASCULAR: He has got atrial fibrillation with irregular heart rate around 120 per minute. RESPIRATORY: Occasional rales bilaterally. ABDOMEN: Soft. LABORATORY WORKUP: Hemoglobin 9.0, hematocrit 34.5, WBC 7.3. The potassium is 4.4. Lactic acid is 2.1. CLINICAL IMPRESSION: The patient presenting with history of shortness of breath secondary to probabl y pneumonia as noted on the chest x-ray. He also could have pulmonary edema. This is being evaluate d by Kasie from the cardiology standpoint. Again from the gastrointestinal standpoint, he has ulce rated stenotic sigmoid mass noted on the colonoscopy. Biopsies are pending. PLAN: Continue present management. There is a good possibility that the patient would not be able t o handle the surgery. He may need a stent into the rectum. Once again, doctor, thank you for this consultation. Dictated By: FRANCE PAREDES/JOANN Conf#: [id number] DID#: [id number] CC: NAYANA GARCIA; AJ PIERRE MD; MARILEE CHAVEZ MD;*EndCC*
--- NOTE | 2018-11-24 13:46 | PN ---
Date/Time of Note Date/Time of Note DATE: 11/24/18 TIME: 13:38 Assessment/Plan VTE Prophylaxis Risk score (from Ns)>0 risk: 12 SCD applied (from Ns): No SCD contraindicated: other (Edema and cellulitis) Pharmacological prophylaxis: LMWH Lines/Catheters IV Catheter Type (from [facility]): Peripheral IV Urinary Cath still in place: Yes Reason Cath still needed: other (indicate) (To monitor his urine output) Assessment/Plan Assessment/Plan This is a 78-year-old male who was in the hospital and was discharged on November 22, 2018. He was readmitted the following day because of shortness of breath and lethargy. His son gave him his medications and noticed that he was sleeping and was not waking up he called 911 and the patient was brought to the hospital. The patient was found to be in fluid overload and attempts to insert a Ballard catheter for him by the staff were not successful therefore a urological consultation was requested again. I did prep the genital area and then was able to retract the foreskin and expose the urethral meatus. I then inserted a 16 [place] Ballard catheter. The urine that drained was clear. The volume was very little indicating that he does empty his bladder well. Urologically will just leave the Ballard catheter in to monitor his urine output. Result Diagram: 11/24/18 0408 11/24/18 0408 Results 24hrs Laboratory Tests Test 11/23/18 19:32 11/23/18 19:59 11/23/18 20:06 11/23/18 20:07 Blood Gas Blood venous Specimen Source Arterial Blood 11/23/2018 7:50:43 Date Drawn PM Arterial Blood VENOUS LINE Gas Puncture Site Nilson Test N/A Venous Blood pH 7.257 L Venous Blood 73.3 H pCO2 (Temp Corrected) Venous Blood pO2 42.3 H (Temp Corrected) Venous Blood 31.9 H HCO3 Venous Blood 66.2 Oxygen Saturation Venous Blood 3.2 Base Excess Venous Blood 11.1 Total Hemoglobin Venous Blood 64.7 Oxyhemoglobin Venous Blood 0.3 Methemoglobin Carboxyhemoglobi 2.0 n Blood Gas 37.0 Temperature Blood Gas Actual 24 Respiration Rate Blood Gas NRM Modality FiO2 100.0 Blood Gas Critical Value Suresh LOZANO Read Back Blood Gas Notified Whom Blood Gas 11/23/2018 8:17:21 Notified Time PM POC Venous 2.6 *H Lactate Digoxin Level 0.7 L White Blood 11.3 #H Count Red Blood Count 4.76 Hemoglobin 9.6 L Hematocrit 37.4 L Mean Corpuscular 78.6 L Volume Mean Corpuscular 20.2 L Hemoglobin Mean Corpuscular 25.7 L Hemoglobin Sonali nt Red Cell 29.1 H Distribution Width Platelet Count 207 Mean Platelet Volume Immature 0.700 H Granulocytes % Neutrophils % 80.0 H Lymphocytes % 9.8 L Monocytes % 7.6 Eosinophils % 1.0 Basophils % 0.9 Nucleated Red 0.2 H Blood Cells % Immature 0.080 H Granulocytes # Neutrophils # 9.0 H Lymphocytes # 1.1 Monocytes # 0.9 Eosinophils # 0.1 Basophils # 0.1 Nucleated Red 0.0 Blood Cells # Prothrombin Time 17.3 H Prothrombin Time 1.4 Ratio INR 1.40 International Normalized Ratio Activated 38.1 H Partial Thrombop last Time Sodium Level 147 H Potassium Level 4.2 Chloride Level 101 Carbon Dioxide 31 Level Anion Gap 15 #H Blood Urea 39 H Nitrogen Creatinine 2.07 H Est Glomerular Filtrat Rate mL/min Glucose Level 183 Calcium Level 8.8 Total Bilirubin 0.5 Direct Bilirubin 0.00 Indirect 0.5 Bilirubin Aspartate Amino 38 Transf (AST/SGOT ) Alanine 50 Aminotransferase (ALT/SGPT) Alkaline 66 Phosphatase Troponin I 0.851 *H B-Type 09200 H Natriuretic Peptide Total Protein 6.8 Albumin 3.6 Globulin 3.20 Albumin/Globulin 1.12 Ratio Test 11/23/18 22:01 11/23/18 23:30 11/24/18 01:19 11/24/18 04:00 POC Venous 1.4 Lactate Lactic Acid 2.2 *H Level Creatine Kinase 301 H Creatine Kinase 0.5 Index Creatinine 1.61 Kinase MB (Mass) Troponin I 1.500 *H Blood Gas Blood arterial Specimen Source Arterial Blood 11/24/2018 4:14:08 Date Drawn AM Arterial Blood 7.339 L pH (Temp corrected) Arterial Blood 53.4 H pCO2 (Temp correct) Arterial Blood 142.9 H pO2 (Temp corrected) Arterial Blood 28.1 H HCO3 Arterial Blood 1.7 Base Excess Arterial Blood 98.6 Oxygen Saturatio n Nilson Test ACCEPTAB Arterial Blood Right Radial Gas Puncture Site Arterial 1.3 Blood Carboxyhem oglobin Arterial Blood 0.4 Methemoglobin Blood Gas A-a O2 233.4 H Differential Oxyhemoglobin 96.9 Percent Blood Gas 37.0 Temperature Blood Gas Actual 20 Respiration Rate Blood Gas MASK - SIMPLE Modality FiO2 61.0 Blood Gas MM Notified Whom Blood Gas 11/24/2018 4:21:05 Notified Time AM Test 11/24/18 04:07 11/24/18 04:08 11/24/18 07:29 Lactic Acid 2.1 *H Level White Blood 11.3 H Count Red Blood Count 4.39 L Hemoglobin 9.0 L Hematocrit 34.5 L Mean Corpuscular 78.6 L Volume Mean Corpuscular 20.5 L Hemoglobin Mean Corpuscular 26.1 L Hemoglobin Sonali nt Red Cell 29.6 H Distribution Width Platelet Count 179 Mean Platelet Volume Immature 0.500 H Granulocytes % Neutrophils % 90.2 H Segmented 93 H Neutrophils % (Manual) Band Neutrophils 1 % (Manual) Lymphocytes % 6.5 L Lymphocytes % 2 L (Manual) Monocytes % 1.8 Eosinophils % 0.3 Eosinophils % 1 (Manual) Basophils % 0.7 Basophils % 1 (Manual) Myelocytes % 2 H (Manual) Nucleated Red 0.0 Blood Cells % Immature 0.060 H Granulocytes # Neutrophils # 10.2 H Neutrophils # 10.5 H (Manual) Band Neutrophils 0.1 # Lymphocytes 0.2 L (Manual) Lymphocytes # 0.7 L Monocytes # 0.2 L Eosinophils # 0.0 Basophils # 0.1 Basophils # 0.1 H (Manual) Myelocytes # 0.2 H Nucleated Red 0.0 Blood Cells # Toxic 1+ Granulation Platelet NORMAL Estimate Giant Platelets 3 H Polychromasia 1+ Poikilocytosis 1+ Anisocytosis 2+ Microcytosis 2+ Macrocytosis 1+ Sodium Level 149 H Potassium Level 4.4 Chloride Level 107 Carbon Dioxide 31 Level Anion Gap 11 Blood Urea 41 H Nitrogen Creatinine 1.84 H Est Glomerular Filtrat Rate mL/min Glucose Level 150 Calcium Level 8.4 Total Bilirubin 0.3 Direct Bilirubin 0.00 Indirect 0.3 Bilirubin Aspartate Amino 52 H Transf (AST/SGOT ) Alanine 49 Aminotransferase (ALT/SGPT) Alkaline 54 Phosphatase Total Protein 6.2 Albumin 3.2 L Globulin 3.00 Albumin/Globulin 1.06 Ratio Creatine Kinase 549 #H Creatine Kinase 0.5 Index Creatinine 2.64 H Kinase MB (Mass) Troponin I 1.200 *H Subjective 24 Hr Interval Summary Free Text/Dictation This is a 78-year-old male who was in the hospital and was discharged on Dece er 2017. He was readmitted the following day because of shortness of breath and lethargy. His son gave him his medications and noticed that he was sleeping and was not waking up he called 911 and the patient was brought to the hospital. The patient was found to be in fluid overload and attempts to insert a Ballard catheter for him by the staff were not successful therefore a urological consul tation was requested again. ENT: no complaints Respiratory: shortness of breath Gastrointestinal: no complaints Genitourinary: No dysuria Neurologic: no complaints Exam/Review of Systems Vital Signs Vitals Vital Signs Date Temp Pulse Resp B/P (MAP) Pulse Ox O2 O2 Flow FiO2 Time Delivery Rate 11/24/18 76 12:00 11/24/18 30 114/67 97 Nasal 11:00 (83) Cannula 11/24/18 98.8 08:00 11/24/18 30 04:31 11/24/18 10.0 04:00 Intake and Output 11/23/18 11/23/18 11/24/18 1515:00 23:00 07:00 IntakeIntake Total 560 ml OutputOutput Total 0 ml BalanceBalance 560 ml Exam Constitutional: alert Head: normocephalic Eyes: nl conjunctiva Neck: supple Gastrointestinal: soft Genitourinary - Male: other (Phimosis, he just voided and the urine is clear.) Extremities: edema, other (Erythema of lower extremities) Medications Medications Current Medications Ondansetron HCl (Zofran Inj) 4 mg Q6H PRN IV NAUSEA AND/OR VOMITING; Start 11/23/18 at 22:30 Acetaminophen (Tylenol Liquid) 650 mg Q6H PRN PO PAIN LEVEL 1-3 OR FEVER; Start 11/23/18 at 22:30 Acetaminophen (Tylenol Supp) 650 mg Q4H PRN CO PAIN LEVEL 1-3 OR FEVER; Start 11/23/18 at 22:30 Lorazepam (Ativan) 0.5 mg Q4H PRN IV ANXIETY; Start 11/23/18 at 22:30 Pantoprazole (Protonix Iv) 40 mg DAILY@06 IV Last administered on 1/2/19at 06:21; Admin Dose 40 MG; Start 11/24/18 at 06:00 Cefepime HCl 50 ml @ 100 mls/hr Q12 IVPB Last administered on 11/24/18 08:35; Admin Dose 100 MLS/HR; Start 11/23/18 at 22:30 Atorvastatin Calcium (Lipitor) 20 mg HS PO ; Start 11/24/18 at 21:00 Albuterol/ Ipratropium (Duoneb) 3 ml Q4H RESP THERAPY PRN HHN SHORTNESS OF BREATH; Start 11/24/18 at 09:00 Dextrose 1,000 ml @ 75 mls/hr [id number] IV Last administered on 11/24/18 10:02; Admin Dose 75 MLS/HR; Start 11/24/18 at 09:30; Stop 11/24/18 at 21:30 Aripiprazole (Abilify) 5 mg DAILY PO Last administered on 11/24/18 10:01; Admin Dose 5 MG; Start 11/24/18 at 09:30 Atenolol (Tenormin) 50 mg DAILY PO Last administered on 11/24/18 10:01; Admin Dose 50 MG; Start 11/24/18 at 09:30 Digoxin (Digoxin) 0.25 mg DAILY@1300 PO ; Start 11/24/18 at 13:00 Diltiazem HCl (Cardizem Sr) 120 mg Q12 PO ; Start 11/24/18 at 10:00 Escitalopram Oxalate (Lexapro) 20 mg DAILY PO Last administered on 11/24/18 10:01; Admin Dose 20 MG; Start 11/24/18 at 09:30 Furosemide (Lasix) 80 mg DAILY@0600 PO Last administered on 11/24/18 10:01; Admin Dose 80 MG; Start 11/24/18 at 09:30 Hydralazine HCl (Apresoline) 50 mg Q6 PO Last administered on 11/24/18 10:02; Admin Dose 50 MG; Start 11/24/18 at 09:30 Ibuprofen (Motrin) 600 mg Q6H PRN PO PAIN LEVEL 1-5; Start 11/24/18 at 09:30 Loratadine (Claritin) 10 mg DAILY PO Last administered on 11/24/18 10:12; Admin Dose 10 MG; Start 11/24/18 at 10:00 Multivitamins Therapeutic (Theragran) 1 tab DAILY PO Last administered on 11/24/18at 10:02; Admin Dose 1 TAB; Start 11/24/18 at 09:30 Potassium Chloride (Micro-K) 8 meq DAILY PO Last administered on 11/24/18at 10:12; Admin Dose 8 MEQ; Start 11/24/18 at 10:00 Tamsulosin HCl (Flomax) 0.4 mg HS PO ; Start 11/24/18 at 21:00 Calcium/Vitamin D (Oyster Shell/ Vit-D (500/200)) 1 tab DAILY PO Last administered on 11/24/18at 10:12; Admin Dose 1 TAB; Start 11/24/18 at 09:30 Aspirin (Ecotrin) 325 mg DAILY PO ; Start 11/25/18 at 09:00 Metoprolol Tartrate (Lopressor) 5 mg Q4H PRN IV HR>110 Hold SBP<100; Start 11/24/18 at 11:00 MARILEE CHAVEZ MD Nov 24, 2018 13:46
--- NOTE | 2018-11-24 14:19 | RADRPT ---
Echocardiogram Report Patient Name: MARIELOS ALFORD Gender: Male Date: 1940 Study Date: 24-Nov-2018 Spiritual Care Coordinator: Abram Peng [facility] Location: [address] Ref. Physician: TWAN FERRO Quality: Adequate Procedures: Transthoracic echocardiogram with complete 2D, M-Mode, and doppler examination. Indications: Evaluate Left Ventricular function and r/o effusion. 2D/M Mode Doppler Measurement Value Normal Ranges Measurement Value Normal Ranges LVIDd 2D 4.9 3.5 - 5.6 cm LVIDs 2D 3.0 2.1 - 4.1 cm LVPWd 2D 1.2 0.6 - 1.1 cm IVSd 2D 1.5 0.6 - 1.1 cm AoR Diam 2D 3.7 2.0 - 3.7 cm LA/Ao 2D 1 0 - 1 LA Dimen 2D 4.1 2.3 - 4.0 cm Findings Left Ventricle: Normal left ventricular systolic function. Normal left ventricular cavity size. Sigmoid septum. Ejection fraction is visually estimated at 55 %. Right Ventricle: Normal right ventricular systolic function. Moderate enlargement of right ventricle. Left Atrium: There is mild enlargement of left atrium. Right Atrium: There is mild enlargement of right atrium. Mitral Valve: Mild mitral leaflet calcification. Mild mitral annular calcification. Trace mitral regurgitation. Aortic Valve: No significant aortic stenosis or insufficiency. Aortic cusps appear mildly calcified. Tricuspid Valve: Normal appearance of the tricuspid valve. There is trace tricuspid regurgitation. Pericardium: Normal pericardium with no significant pericardial effusion. Aorta: Normal aortic root. IVC: Dilated IVC without respiratory collapse consistent with elevated right atrial pressure. Conclusions Normal left ventricular systolic function. Normal left ventricular cavity size. Sigmoid septum. Ejection fraction is visually estimated at 55 %. Normal right ventricular systolic function. Moderate enlargement of right ventricle. There is mild enlargement of left atrium. There is mild enlargement of right atrium. Mild mitral leaflet calcification. Mild mitral annular calcification. Trace mitral regurgitation. Normal appearance of the tricuspid valve. There is trace tricuspid regurgitation. Electronically Signed By: Twan Ferro 24-Nov-2018 14:18:37 -0800 Patient Name: MARIELOS ALFORD Study Date: 24-Nov-2018 [id number]
--- NOTE | 2018-11-24 14:58 | NUR ---
Bedside swallow evaluation completed: Patient is a 78-year-old male with a recent diagnosis of colon cancer who was recently admitted to [facility] with severe anemia. He returned to hospital with increasing shortness of breath, orthopnea, PND, and mild hypoxemia, initially requiring noninvasive positive pressure ventilation. Chest x-ray demonstrated pulmonary edema versus pneumonia in addition to atrial fibrillation with rapid ventricular rate and elevated troponin. He is now tolerating O2 via nasal cannula, maintaining O2 SATs at 100% throughout evaluation with RR 18-22. He is being treated for acute hypoxemic respiratory failure likely 2/2 congestive cardiac failure, sigmoid mass, non-ST elevation myocardial infarction, and atrial fibrillation. He is awake, oriented and participatory in evaluation and social exchanges. He benefitted from participation with interpretation from family members at bedside. He has partial set of upper dentition, and has bottom dentures at home. However completely edentulous on bottom for evaluation. He is on a mechanical soft diet, but was noted to be coughing at breakfast and therefore his lunch tray was held by RN until he could be seen for evaluation. Oral mech: Face symmetrical, tongue at midline. Oral motor strength/ coordination is WFL. Mild reduced hyolaryngeal excursion, per palpation. Trials: Thin liquids via tsp, cup and straw, pureed solids, soft solids- reg solids not tested Oral phase characterized by increased mastication time with soft solids 2/2 missing dentition. Mild-mod residue following the initial swallow with soft solids, cleared with repeat swallow/ liquid wash. Suspect premature spillage with liquids. Suspect mild delay in the pharyngeal swallow with thin liquids. Tolerated all trials without s/s aspiration or change in O2 saturation. Patient safe to continue current diet when alert and upright in bed. Recommendations: Soft ground solids/ thin liquids Meds in puree or thin liquids Maintain aspiration precautions and oral care guidelines Sit patient upright at 90 degrees for PO intake [address] to f/u
[2018-11-24] MEDS: DIGOXIN 0.25 MG TAB PO SCH (15:25)
[2018-11-24] MEDS ORDERED: ALBUMIN HUMAN 25% 100 ML IV STA (17:26)
--- NOTE | 2018-11-24 17:26 | CONS ---
Date/Time of Note Date/Time of Note DATE: 11/24/18 TIME: 17:25 Assessment/Plan Assessment/Plan Assessment/Plan 1. Oliguric acute on chronic renal failure due to Sepsis and Hemodynamics + obstructive uropathy 2. atrial fibrillation with RVR 3. acute hypoxemic and hypercapnic resp failure due to PNA 4. Sepsis 5. Positive troponin 6. BPH on flomax Plan: seen in ICU, Labs reviewed s/p Urology consult and Ballard placement I will give albumin 25% 100ml IV x 1 followed by NS 500 cc bolus then lasix 40mg IV x 1 after it Renal US Rate control with digoxin and Atenolol Thanks for consultation, i will continue to follow up Result Diagram: 11/24/188 11/24/188 Results 24hrs Laboratory Tests Test 11/23/18 19:32 11/23/18 19:59 11/23/18 20:06 11/23/18 20:07 Blood Gas Blood venous Specimen Source Arterial Blood 11/23/2018 7:50:43 Date Drawn PM Arterial Blood VENOUS LINE Gas Puncture Site Nilson Test N/A Venous Blood pH 7.257 L Venous Blood 73.3 H pCO2 (Temp Corrected) Venous Blood pO2 42.3 H (Temp Corrected) Venous Blood 31.9 H HCO3 Venous Blood 66.2 Oxygen Saturation Venous Blood 3.2 Base Excess Venous Blood 11.1 Total Hemoglobin Venous Blood 64.7 Oxyhemoglobin Venous Blood 0.3 Methemoglobin Carboxyhemoglobi 2.0 n Blood Gas 37.0 Temperature Blood Gas Actual 24 Respiration Rate Blood Gas NRM Modality FiO2 100.0 Blood Gas Critical Value Suresh LOZANO Read Back Blood Gas BL Notified Whom Blood Gas 11/23/2018 8:17:21 Notified Time PM POC Venous 2.6 *H Lactate Digoxin Level 0.7 L White Blood 11.3 #H Count Red Blood Count 4.76 Hemoglobin 9.6 L Hematocrit 37.4 L Mean Corpuscular 78.6 L Volume Mean Corpuscular 20.2 L Hemoglobin Mean Corpuscular 25.7 L Hemoglobin Sonali nt Red Cell 29.1 H Distribution Width Platelet Count 207 Mean Platelet Volume Immature 0.700 H Granulocytes % Neutrophils % 80.0 H Lymphocytes % 9.8 L Monocytes % 7.6 Eosinophils % 1.0 Basophils % 0.9 Nucleated Red 0.2 H Blood Cells % Immature 0.080 H Granulocytes # Neutrophils # 9.0 H Lymphocytes # 1.1 Monocytes # 0.9 Eosinophils # 0.1 Basophils # 0.1 Nucleated Red 0.0 Blood Cells # Prothrombin Time 17.3 H Prothrombin Time 1.4 Ratio INR 1.40 International Normalized Ratio Activated 38.1 H Partial Thrombop last Time Sodium Level 147 H Potassium Level 4.2 Chloride Level 101 Carbon Dioxide 31 Level Anion Gap 15 #H Blood Urea 39 H Nitrogen Creatinine 2.07 H Est Glomerular Filtrat Rate mL/min Glucose Level 183 Calcium Level 8.8 Total Bilirubin 0.5 Direct Bilirubin 0.00 Indirect 0.5 Bilirubin Aspartate Amino 38 Transf (AST/SGOT ) Alanine 50 Aminotransferase (ALT/SGPT) Alkaline 66 Phosphatase Troponin I 0.851 *H B-Type 91696 H Natriuretic Peptide Total Protein 6.8 Albumin 3.6 Globulin 3.20 Albumin/Globulin 1.12 Ratio Test 11/23/18 22:01 11/23/18 23:30 11/24/18 01:19 11/24/18 04:00 POC Venous 1.4 Lactate Lactic Acid 2.2 *H Level Creatine Kinase 301 H Creatine Kinase 0.5 Index Creatinine 1.61 Kinase MB (Mass) Troponin I 1.500 *H Blood Gas Blood arterial Specimen Source Arterial Blood 11/24/2018 4:14:08 Date Drawn AM Arterial Blood 7.339 L pH (Temp corrected) Arterial Blood 53.4 H pCO2 (Temp correct) Arterial Blood 142.9 H pO2 (Temp corrected) Arterial Blood 28.1 H HCO3 Arterial Blood 1.7 Base Excess Arterial Blood 98.6 Oxygen Saturatio n Nilson Test ACCEPTAB Arterial Blood Right Radial Gas Puncture Site Arterial 1.3 Blood Carboxyhem oglobin Arterial Blood 0.4 Methemoglobin Blood Gas A-a O2 233.4 H Differential Oxyhemoglobin 96.9 Percent Blood Gas 37.0 Temperature Blood Gas Actual 20 Respiration Rate Blood Gas MASK - SIMPLE Modality FiO2 61.0 Blood Gas MM Notified Whom Blood Gas 11/24/2018 4:21:05 Notified Time AM Test 11/24/18 04:07 11/24/18 04:08 11/24/18 07:29 11/24/18 14:52 Lactic Acid 2.1 *H 1.6 Level White Blood 11.3 H Count Red Blood Count 4.39 L Hemoglobin 9.0 L Hematocrit 34.5 L Mean Corpuscular 78.6 L Volume Mean Corpuscular 20.5 L Hemoglobin Mean Corpuscular 26.1 L Hemoglobin Sonali nt Red Cell 29.6 H Distribution Width Platelet Count 179 Mean Platelet Volume Immature 0.500 H Granulocytes % Neutrophils % 90.2 H Segmented 93 H Neutrophils % (Manual) Band Neutrophils 1 % (Manual) Lymphocytes % 6.5 L Lymphocytes % 2 L (Manual) Monocytes % 1.8 Eosinophils % 0.3 Eosinophils % 1 (Manual) Basophils % 0.7 Basophils % 1 (Manual) Myelocytes % 2 H (Manual) Nucleated Red 0.0 Blood Cells % Immature 0.060 H Granulocytes # Neutrophils # 10.2 H Neutrophils # 10.5 H (Manual) Band Neutrophils 0.1 # Lymphocytes 0.2 L (Manual) Lymphocytes # 0.7 L Monocytes # 0.2 L Eosinophils # 0.0 Basophils # 0.1 Basophils # 0.1 H (Manual) Myelocytes # 0.2 H Nucleated Red 0.0 Blood Cells # Toxic 1+ Granulation Platelet NORMAL Estimate Giant Platelets 3 H Polychromasia 1+ Poikilocytosis 1+ Anisocytosis 2+ Microcytosis 2+ Macrocytosis 1+ Sodium Level 149 H Potassium Level 4.4 Chloride Level 107 Carbon Dioxide 31 Level Anion Gap 11 Blood Urea 41 H Nitrogen Creatinine 1.84 H Est Glomerular Filtrat Rate mL/min Glucose Level 150 Calcium Level 8.4 Total Bilirubin 0.3 Direct Bilirubin 0.00 Indirect 0.3 Bilirubin Aspartate Amino 52 H Transf (AST/SGOT ) Alanine 49 Aminotransferase (ALT/SGPT) Alkaline 54 Phosphatase Total Protein 6.2 Albumin 3.2 L Globulin 3.00 Albumin/Globulin 1.06 Ratio Creatine Kinase 549 #H Creatine Kinase 0.5 Index Creatinine 2.64 H Kinase MB (Mass) Troponin I 1.200 *H 0.899 *H Consultation Date/Type/Reason Admit Date/Time 11/23/18 Date of Consultation: Nov 24, 2018 Type of Consult NEPHROLOGY Reason for Consultation Oliguric acute kidney injury on CKD Requesting Provider: NAYANA GARCIA Hx of Present Illness 8-year-old male with a history of diabetes, atrial fibrillation, sigmoid mass, obstructive uropathy who was brought to ER for shortness of breath and lethargy. Patient was just discharged from here yesterday. During the recent hospitalization, he had a biopsy of the sigmoid mass, pathology is still pending. He was also found to be in volume overload with anasarca and lower extremity edema. His creatinine was around 1.8. Patient now brought back because of severe shortness of breath and lethargy. He still has lower extremity edema. Chest x-ray shows bilateral patchy opacity. When he presented, he was febrile with a temperature of 101.7, heart rate as high as almost 120. Initial O2 sat 74. VBG shows a pH of 7.25, PCO2 73, PO2 42, bicarb 32. He has been placed on BiPAP. pt was admitte for acute hypoxemic resp failure, fluid overload, noted to have Cr 1.8- Cardiology consulted for NSTEMI. Subjective hx not possible: pt critical status Past Medical History Medical History: diabetes, hypertension, other (obstructive uropathy, atrial fibrillation ) Medications Current Medications Ondansetron HCl (Zofran Inj) 4 mg Q6H PRN IV NAUSEA AND/OR VOMITING; Start 11/23/18 at 22:30 Acetaminophen (Tylenol Liquid) 650 mg Q6H PRN PO PAIN LEVEL 1-3 OR FEVER; Start 11/23/18 at 22:30 Acetaminophen (Tylenol Supp) 650 mg Q4H PRN MI PAIN LEVEL 1-3 OR FEVER; Start 11/23/18 at 22:30 Lorazepam (Ativan) 0.5 mg Q4H PRN IV ANXIETY; Start 11/23/18 at 22:30 Cefepime HCl 50 ml @ 100 mls/hr Q12 IVPB Last administered on 11/24/18at 08:35; Admin Dose 100 MLS/HR; Start 11/23/18 at 22:30 Atorvastatin Calcium (Lipitor) 20 mg HS PO ; Start 11/24/18 at 21:00 Albuterol/ Ipratropium (Duoneb) 3 ml Q4H RESP THERAPY PRN HHN SHORTNESS OF BREATH; Start 11/24/18 at 09:00 Dextrose 1,000 ml @ 75 mls/hr [id number] IV Last administered on 11/24/18at 10:02; Admin Dose 75 MLS/HR; Start 11/24/18 at 09:30; Stop 11/24/18 at 21:30 Aripiprazole (Abilify) 5 mg DAILY PO Last administered on 11/24/18 10:01; Admin Dose 5 MG; Start 11/24/18 at 09:30 Atenolol (Tenormin) 50 mg DAILY PO Last administered on 11/24/18 10:01; Admin Dose 50 MG; Start 11/24/18 at 09:30 Digoxin (Digoxin) 0.25 mg DAILY@1300 PO Last administered on 11/24/18 15:25; Admin Dose 0.25 MG; Start 11/24/18 at 13:00 Diltiazem HCl (Cardizem Sr) 120 mg Q12 PO ; Start 11/24/18 at 10:00 Escitalopram Oxalate (Lexapro) 20 mg DAILY PO Last administered on 11/24/18 10:01; Admin Dose 20 MG; Start 11/24/18 at 09:30 Furosemide (Lasix) 80 mg DAILY@0600 PO Last administered on 11/24/18 10:01; Admin Dose 80 MG; Start 11/24/18 at 09:30; Status Hold Hydralazine HCl (Apresoline) 50 mg Q6 PO Last administered on 11/24/18 15:25; Admin Dose 50 MG; Start 11/24/18 at 09:30 Ibuprofen (Motrin) 600 mg Q6H PRN PO PAIN LEVEL 1-5; Start 11/24/18 at 09:30 Loratadine (Claritin) 10 mg DAILY PO Last administered on 11/24/18 10:12; Admin Dose 10 MG; Start 11/24/18 at 10:00 Multivitamins Therapeutic (Theragran) 1 tab DAILY PO Last administered on 11/24/18 10:02; Admin Dose 1 TAB; Start 11/24/18 at 09:30 Potassium Chloride (Micro-K) 8 meq DAILY PO Last administered on 11/24/18 10:12; Admin Dose 8 MEQ; Start 11/24/18 at 10:00; Status Hold Tamsulosin HCl (Flomax) 0.4 mg HS PO ; Start 11/24/18 at 21:00 Calcium/Vitamin D (Oyster Shell/ Vit-D (500/200)) 1 tab DAILY PO Last administered on 11/24/18 10:12; Admin Dose 1 TAB; Start 11/24/18 at 09:30 Aspirin (Ecotrin) 325 mg DAILY PO ; Start 11/25/18 at 09:00 Metoprolol Tartrate (Lopressor) 5 mg Q4H PRN IV HR>110 Hold SBP<100; Start 11/24/18 at 11:00 Pantoprazole (Protonix Tab) 40 mg DAILY@06 PO ; Start 11/25/18 at 06:00 Allergies: Coded Allergies: No Known Allergy (Unverified , 11/23/18) Past Surgical History Past Surgical Hx: no surgical history, other Family History Significant Family History: no pertinent family hx Social History Alcohol Use: none Smoking Status: Never smoker Drug Use: none Exam/Review of Systems Vital Signs Vitals Vital Signs Date Temp Pulse Resp B/P (MAP) Pulse Ox O2 O2 Flow FiO2 Time Delivery Rate 11/24/18 73 16:00 11/24/18 30 114/67 97 Nasal 11:00 (83) Cannula 11/24/18 98.8 08:00 11/24/18 30 04:31 11/24/18 10.0 04:00 Intake and Output 11/23/18 11/23/18 11/24/18 1515:00 23:00 07:00 IntakeIntake Total 560 ml OutputOutput Total 0 ml BalanceBalance 560 ml Exam Constitutional: alert Psych: no complaints Head: normocephalic Eyes: nl conjunctiva Neck: supple, non-tender Respiratory: congested cough, crackles/rales, diminished breath sounds Cardiovascular: regular rate and rhythm, nl pulses Gastrointestinal: soft, non-tender Musculoskeletal: nl extremities to inspection, muscle weakness, swelling Neurological: other (Non focal ) Skin: nl turgor Lymph: nl lymph nodes Medications Medications Current Medications Ondansetron HCl (Zofran Inj) 4 mg Q6H PRN IV NAUSEA AND/OR VOMITING; Start 11/23/18 at 22:30 Acetaminophen (Tylenol Liquid) 650 mg Q6H PRN PO PAIN LEVEL 1-3 OR FEVER; Start 11/23/18 at 22:30 Acetaminophen (Tylenol Supp) 650 mg Q4H PRN MI PAIN LEVEL 1-3 OR FEVER; Start 11/23/18 at 22:30 Lorazepam (Ativan) 0.5 mg Q4H PRN IV ANXIETY; Start 11/23/18 at 22:30 Cefepime HCl 50 ml @ 100 mls/hr Q12 IVPB Last administered on 11/24/18 08:35; Admin Dose 100 MLS/HR; Start 11/23/18 at 22:30 Atorvastatin Calcium (Lipitor) 20 mg HS PO ; Start 11/24/18 at 21:00 Albuterol/ Ipratropium (Duoneb) 3 ml Q4H RESP THERAPY PRN HHN SHORTNESS OF BREATH; Start 11/24/18 at 09:00 Dextrose 1,000 ml @ 75 mls/hr [id number] IV Last administered on 11/24/18 10:02; Admin Dose 75 MLS/HR; Start 11/24/18 at 09:30; Stop 11/24/18 at 21:30 Aripiprazole (Abilify) 5 mg DAILY PO Last administered on 11/24/18 10:01; Admin Dose 5 MG; Start 11/24/18 at 09:30 Atenolol (Tenormin) 50 mg DAILY PO Last administered on 11/24/18 10:01; Admin Dose 50 MG; Start 11/24/18 at 09:30 Digoxin (Digoxin) 0.25 mg DAILY@1300 PO Last administered on 11/24/18 15:25; Admin Dose 0.25 MG; Start 11/24/18 at 13:00 Diltiazem HCl (Cardizem Sr) 120 mg Q12 PO ; Start 11/24/18 at 10:00 Escitalopram Oxalate (Lexapro) 20 mg DAILY PO Last administered on 11/24/18 10:01; Admin Dose 20 MG; Start 11/24/18 at 09:30 Furosemide (Lasix) 80 mg DAILY@0600 PO Last administered on 11/24/18 10:01; Admin Dose 80 MG; Start 11/24/18 at 09:30; Status Hold Hydralazine HCl (Apresoline) 50 mg Q6 PO Last administered on 11/24/18 15:25; Admin Dose 50 MG; Start 11/24/18 at 09:30 Ibuprofen (Motrin) 600 mg Q6H PRN PO PAIN LEVEL 1-5; Start 11/24/18 at 09:30 Loratadine (Claritin) 10 mg DAILY PO Last administered on 11/24/18 10:12; Admin Dose 10 MG; Start 11/24/18 at 10:00 Multivitamins Therapeutic (Theragran) 1 tab DAILY PO Last administered on 11/24/18at 10:02; Admin Dose 1 TAB; Start 11/24/18 at 09:30 Potassium Chloride (Micro-K) 8 meq DAILY PO Last administered on 11/24/18at 10:12; Admin Dose 8 MEQ; Start 11/24/18 at 10:00; Status Hold Tamsulosin HCl (Flomax) 0.4 mg HS PO ; Start 11/24/18 at 21:00 Calcium/Vitamin D (Oyster Shell/ Vit-D (500/200)) 1 tab DAILY PO Last administered on 11/24/18at 10:12; Admin Dose 1 TAB; Start 11/24/18 at 09:30 Aspirin (Ecotrin) 325 mg DAILY PO ; Start 11/25/18 at 09:00 Metoprolol Tartrate (Lopressor) 5 mg Q4H PRN IV HR>110 Hold SBP<100; Start 11/24/18 at 11:00 Pantoprazole (Protonix Tab) 40 mg DAILY@06 PO ; Start 11/25/18 at 06:00 RENAN HERNANDEZ MD Nov 24, 2018 17:26
[2018-11-24] MEDS ORDERED: SOD CHLORIDE 0.9% 500 ML IV ONE (17:30)
[2018-11-24] MEDS ORDERED: FUROSEMIDE 40 MG INJ IV ONE (18:30)
--- NOTE | 2018-11-24 20:13 | NUR ---
Pt changed from Bipap to 6L NC this am and is tolerating well. If NC is removed temporarily (by patient) sp02 does drop into the 80's. Restarted home medication today. At times incontinent of bowel and bladder. Total of 7 BM's today. Ballard catheter placed by urology. After 80mg PO LAsix administered per order. Patient was only voiding 30-50mls for several hours after. Ballard catheter tubing manipulated and bladder scan performed and did not show any retention. Dr. Cotton notified, orders received. Pt. at times will vagal and HR drops to the 40's temporarily, recovers and returns to SR in the 60-70's, other VSS. Swallow evaluation performed after patient was coughing throughout breakfast. Passed swallow evaluation and when patient ate his dinner, RN noted the same coughing, it appears that patient is eating quickly as well as talking with family with food in his mouth, RN requested that patient try to eat slower and not talk at the same time.
[2018-11-24] MEDS: ATORVASTATIN 20 MG TAB PO SCH (20:48)
[2018-11-24] MEDS ORDERED: NON-FORMULARY/PATIENT OWN MED (Calcium Citrate/Vitamin D (Citracal-Vitamin D 200 MG-250) 1 PO SCH (21:00)
[2018-11-24] MEDS: TAMSULOSIN (SR) 0.4 MG CAP PO SCH (21:12)
--- NOTE | 2018-11-24 21:29 | NUR ---
received patient from LEYLA Mason at 2100
[2018-11-25] VITALS (47 sets, daily range): BP systolic 82–120; BP diastolic 40–92; PULSE 50–72; RESP 8–27
[2018-11-25] MEDS: PANTOPRAZOLE (EC) 40 MG TAB PO SCH (05:50)
--- NOTE | 2018-11-25 06:19 | NUR ---
END OF SHIFT REPORT PT IS ALERT AND ORIENTED X2. HE IS AWARE OF HIS NAME AND ABLE TO ANSWER SOME BASIC QUESTIONS APPROPRIATELY. PT SLEPT WELL MOST OF THE NIGHT. PT OLIGURIC URINE OUTPUT BTW 10-20CC. PER DR. HERNANDEZ PROGRESS NOTE HE IS AWARE PATIENT IS OLIGURIC. PATIENT SATING WELL ON 6L. BLOOD PRESSURE WNL. WHEN PATIENT GOES INTO A DEEP SLEEP PT HR CAN GO INTO LOW 40S. WHEN PT IS AWAKE HR IS IN LOW TO MID 60S. PT IS ASYMPTOMATIC. DR. PIERRE AWARE ADVISED TO PASS INFO TO DAY SHIFT TO INFORM DR. ESTEVEZ WHEN HE DOES ROUNDS, CALL DR. ESTEVEZ IF PATIENT BECOMES SYMPTOMATIC.
[2018-11-25] MEDS: ATENOLOL 50 MG TAB PO SCH ×2 (09:00→14:00)
[2018-11-25] MEDS: DILTIAZEM (SR) 60 MG CAP PO SCH ×2 (09:00→14:00)
--- NOTE | 2018-11-25 09:02 | CONS ---
DATE OF ADMISSION: 11/23/2018 DATE OF CONSULTATION: 11/24/2018 REASON FOR CONSULTATION: Positive troponin consistent with non-ST elevation myocardial infarction. REQUESTING PHYSICIAN: Dr. Garcia from the hospitalist service. HISTORY OF PRESENT ILLNESS: Mr. Sanders is a 78-year-old male with a history of recently diagnosed colonic mass, likely consistent with colon CA, after presenting with severe anemia with a hemoglobin in the 4s and having a bout of sepsis, currently admitted to the ICU for ongoing renal failure, obstructive uropathy and an echo at that time that revealed a normal EF. The patient was discharged to outpatient followup, who now presents with hypercarbic respiratory failure. Upon arrival, temperature 101.7, blood pressure 124/96, pulse 103, respiratory rate 21, satting 74%. The patient's labs with a white count 11.3, hemoglobin 9.6, platelet count 207. Sodium of 147, potassium 4.2, creatinine 2.0, BUN 39, Trop positive 0.851. BNP of 20,600. INR of 1.4. Tox screen revealing digoxin 0.7. ABG with a venous pH of 7.257, PaO2 of 42, pCO2 of 73. The patient's electrocardiogram revealed atrial fibrillation at a rate of 101, right bundle branch block, left axis deviation, left anterior fascicular block. Patient subsequently has been admitted to the ICU and since admit to ICU, has been placed on BiPAP, which has been weaned off since. The patient at this time remains now in the ICU. Most recent blood pressure 120/67, pulse 99, satting 96% with patient's troponins initially trending up to 1.5 and then down to 1.2 with very low CK-MB of 2.64. PAST MEDICAL HISTORY: As above in HPI. MEDICATIONS CURRENTLY IN HOSPITAL: 1. Flomax 0.4. 2. Digoxin 0.25 mg daily. 3. Diltiazem-SR 120 mg q.12h. 4. Claritin. 5. Abilify. 6. Atenolol 50 mg daily. 7. Lexapro 20 mg daily. 8. Lasix 80 mg daily. 9. Hydralazine. 11. Motrin p.r.n. 12. Multivitamins. 13. Aspirin 81 mg daily. 14. Protonix. 15. Tylenol p.r.n. 16. Ativan p.r.n. 17. Cefepime p.r.n. ALLERGIES: No known drug allergies. SOCIAL HISTORY: No current tobacco, ETOH or illicit drug use. FAMILY HISTORY: No sudden cardiac or early CAD. REVIEW OF SYSTEMS: As above in HPI. CONSTITUTIONAL: Positive chills. PULMONARY: Respiratory failure, improving off BiPAP. GASTROINTESTINAL: Colonic mass. GENITOURINARY: No hematuria. MUSCULOSKELETAL: Degenerative joint disease. PSYCHIATRIC: No documented psych history. NEUROLOGIC: No documented CVA. ENDOCRINE: No documented . PHYSICAL EXAMINATION: VITAL SIGNS: Temperature 98.7, blood pressure 120/67, pulse 99, respiratory rate 20, satting 96%. GENERAL: The patient is alert, awake, no acute distress. NECK: JVP approximately 8 to 9 cm of water. CHEST: Upper airway rhonchus sounds. HEART: Regular rate and rhythm. Normal S1, increased S2, 1/6 systolic murmur. Nondisplaced PMI. ABDOMEN: Positive bowel sounds, soft. EXTREMITIES: Trace edema 1+. Difficult to palpate distal pulses bilateral posterior tibial. LABORATORIES: Most recent from today, sodium 149, potassium 4.4, creatinine 1.4, BUN 41, troponin 1.2, down from 1.5. CK-MB of 2.64 up from 1.61. White cells 11.3, hemoglobin 9.0, platelet count 179. IMAGING STUDIES: Chest x-ray revealing patchy bilateral low lung infiltrates, possibly representing pulmonary edema or pneumonia, large cardiac silhouette, small right pleural effusion. IMPRESSION: 1. Non-ST elevation myocardial infarction, currently down trending cardiac enzymes likely a type 2 demand infarct in the setting of fevers, hypercarbic respiratory failure. 2. Abnormal electrocardiogram. 3. Right bundle branch block. 4. Colonic mass. 5. Anemia. 6. Renal failure. 7. Leukocytosis. 8. Coagulopathy. 9. Possible sepsis. 10. Atrial fibrillation. RECOMMENDATIONS: 1. At this time, we will continue to trend the patient's cardiac enzymes, assess for any significant ongoing cardiac damage. 2. We will continue patient's aspirin at this time for prophylaxis for prevention of thromboembolic events in setting of atrial fibrillation in lieu of Lovenox at this time or heparin 3. Cystic duct anticoagulation given the patient's colonic mass and prior presentation of severe anemia. 4. Continue the patient's current diltiazem and atenolol for control of heart rate and blood pressure. Continue the patient's digoxin but will have to follow levels closely in the setting of renal failure and continue the patient's statin and adjust it according to a fasting lipid panel to be checked. 4. Continue antibiotics and follow up all culture data. 5. Pending reevaluation by surgical colleagues in GI to evaluate the patient's colonic mass. Thank you for allowing me to take part in the care of this patient. I will continue to follow closely with you with further recommendations made as the patient progresses through his inpatient hospital clinical course. Dictated By: TWAN CHARLES/JOANN Conf#: [id number] DID#: [id number] CC: NAYANA GARCIA; AJ PIERRE MD;*EndCC* MTDD
[2018-11-25] MEDS: CALCIUM/VITAMIN D (500/200) TAB PO SCH (09:19)
[2018-11-25] MEDS: ESCITALOPRAM 10 MG TAB PO SCH (09:19)
[2018-11-25] MEDS: ARIPIPRAZOLE 5 MG TAB PO SCH (09:19)
[2018-11-25] MEDS: LORATADINE 10 MG TAB PO SCH (09:19)
[2018-11-25] MEDS: ASPIRIN (EC) 325 MG TAB PO SCH (09:19)
--- NOTE | 2018-11-25 09:19 | NUR ---
PT NOTE Therapy day number 1 Subjective Denies pain Pain Scale NUMERIC Pain Intensity 0 (0-10) Patient Stated Goal for Pain Relief 0 (0-10) Pain Level Comment denies pain Pre Treatment Vital Signs Stable Yes - 80/45, 50 bpm, 94%O2 sats on O2 Exercise Assessment Label Bilat Lower Extremity Exercise Type Active ROM Additional Exercise Comments semi-supine APs, heel slides, SLR, abd/add, glute sets Exercise Start Time 08:55 Exercise End Time 09:19 Total Exercise Time 24 min (8-127) Additional Mobility Comments EOB/OOB on hold due to low BP Additional Gait Comments TBA Safety Judgement Fair Activity Tolerance Good Equipment Present Ballard Catheter IV pump Additional Equipment Present ICU lines; O2 via NC Post Treatment Pain Intensity 0 0-10 Variance Documentation SEE PT NOTE Total Treament Time 24 min (8-127) Total Minutes 24 Total Units 2 PT Technical Record Comment PT NOTE S: "I am feeling good." O: LEYLA Beyer cleared pt for PT session. Pt received in bed, family at bedside, vitals assessed, noted hypotension, limited PT session to bed-level exercise. Pt participated in bed-level exercise as described above. Pt left semi-supine in bed, no signs of distress, family at bedside, RN attending to pt. A: Pt session limited due to pt presenting with low BP (80/45), with pt participating in bed-level exercise as able. P: Continue c PT POC; progress to standing
--- NOTE | 2018-11-25 09:20 | CONS ---
Date/Time of Note Date/Time of Note DATE: 11/25/18 TIME: 09:18 Assessment/Plan Assessment/Plan Assessment/Plan Assessment recommendations; 1. 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 Clinically improving. 2. Chronic renal insufficiency. 3. History of BPH. 4. A. fib with RVR converted to sinus rhythm. 5. Sigmoid mass. Possibly malignant. 6. Anemia and thrombocytopenia. Continue current supportive care. Consider transfer to medical floor. Result Diagram: 11/25/18 0337 11/25/18 0337 Results 24hrs Laboratory Tests Test 11/24/18 14:52 11/24/18 17:00 11/24/18 21:09 11/25/18 03:32 Lactic Acid Level 1.6 1.5 Troponin I 0.899 *H 0.724 *H 0.621 *H Sodium Level 146 H Potassium Level 4.0 Chloride Level 109 Carbon Dioxide Level 29 Anion Gap 8 Blood Urea Nitrogen 47 H Creatinine 1.83 H Est Glomerular Filtrat Rate mL/min Glucose Level 198 Calcium Level 8.4 Phosphorus Level 5.3 H Magnesium Level 2.1 Test 11/25/18 03:37 11/25/18 03:48 White Blood Count 12.5 H Red Blood Count 4.18 L Hemoglobin 8.6 L Hematocrit 33.8 L Mean Corpuscular Volume 80.9 L Mean Corpuscular 20.6 L Hemoglobin Mean Corpuscular 25.4 L Hemoglobin Concent Red Cell Distribution 29.5 H Width Platelet Count 172 Mean Platelet Volume Immature Granulocytes % 0.600 H Neutrophils % Segmented Neutrophils 89 H % (Manual) Lymphocytes % Lymphocytes % (Manual) 6 L Monocytes % Monocytes % (Manual) 5 Eosinophils % Basophils % Nucleated Red Blood 0.0 Cells % Immature Granulocytes # 0.070 H Neutrophils # Lymphocytes (Manual) 0.7 L Lymphocytes # Monocytes # Monocytes # (Manual) 0.6 Eosinophils # Basophils # Nucleated Red Blood Cells # Platelet Estimate NORMAL Giant Platelets 7 H Polychromasia 2+ Hypochromasia 2+ Poikilocytosis 2+ Anisocytosis 2+ Microcytosis 2+ Tear Drop Cells 1+ Ovalocytes 2+ Sodium Level 144 Potassium Level 4.5 Chloride Level 106 Carbon Dioxide Level 30 Anion Gap 8 Blood Urea Nitrogen 57 H Creatinine 2.11 H Est Glomerular Filtrat Rate mL/min Glucose Level 132 # Calcium Level 8.8 Lactic Acid Level 1.1 Consultation Date/Type/Reason Admit Date/Time Nov 23, 2018 at 22:01 Initial Consult Date 11/24/18 Type of Consult Pulmonary/critical care Reason for Consultation Patient's condition is gradually improving. Off BiPAP now and doing fairly well on 6 L nasal cannula. Patient denies any chest pain, shortness of breath. General exam; elderly male, awake and alert. Currently in no distress. H EENT exam; supple neck, positive JVD. No lymphadenopathy. Midline trachea. No thyromegaly. No neck masses. Patient's lower jaw is edentulous. Chest exam; diminished but clear breath sounds. S1-S2 audible, no murmurs. Regular rhythm. Abdomen exam; soft, nontender. No organomegaly. Nondistended. Bowel sounds audible. Extremity exam; no peripheral edema or clubbing. CONSULTANT INTERN exam; no focal deficit. Requesting Provider: NAYANA GARCIA Exam/Review of Systems Vital Signs Vitals Vital Signs Date Temp Pulse Resp B/P (MAP) Pulse Ox O2 O2 Flow FiO2 Time Delivery Rate 11/25/18 98.5 51 18 93/44 (60) 93 07:32 11/25/18 4.0 05:51 11/24/18 Nasal 21:00 Cannula 11/24/18 30 04:31 Intake and Output 11/24/18 11/24/18 11/25/18 1515:00 23:00 07:00 IntakeIntake Total 1140 ml 1525 ml OutputOutput Total 170 ml 190 ml 100 ml BalanceBalance 970 ml 1335 ml -100 ml Medications Medications Current Medications Ondansetron HCl (Zofran Inj) 4 mg Q6H PRN IV NAUSEA AND/OR VOMITING; Start 11/23/18 at 22:30 Acetaminophen (Tylenol Liquid) 650 mg Q6H PRN PO PAIN LEVEL 1-3 OR FEVER; Start 11/23/18 at 22:30 Acetaminophen (Tylenol Supp) 650 mg Q4H PRN [place] PAIN LEVEL 1-3 OR FEVER; Start 11/23/18 at 22:30 Lorazepam (Ativan) 0.5 mg Q4H PRN IV ANXIETY; Start 11/23/18 at 22:30 Cefepime HCl 50 ml @ 100 mls/hr Q12 IVPB Last administered on 11/24/18 20:46; Admin Dose 100 MLS/HR; Start 11/23/18 at 22:30 Atorvastatin Calcium (Lipitor) 20 mg HS PO Last administered on 11/24/18 20:48; Admin Dose 20 MG; Start 11/24/18 at 21:00 Albuterol/ Ipratropium (Duoneb) 3 ml Q4H RESP THERAPY PRN HHN SHORTNESS OF BREATH; Start 11/24/18 at 09:00 Aripiprazole (Abilify) 5 mg DAILY PO Last administered on 11/24/18 10:01; Admin Dose 5 MG; Start 11/24/18 at 09:30 Atenolol (Tenormin) 50 mg DAILY PO Last administered on 11/24/18 10:01; Admin Dose 50 MG; Start 11/24/18 at 09:30 Digoxin (Digoxin) 0.25 mg DAILY@1300 PO Last administered on 11/24/18 15:25; Admin Dose 0.25 MG; Start 11/24/18 at 13:00 Diltiazem HCl (Cardizem Sr) 120 mg Q12 PO Last administered on 11/24/18 20:49; Admin Dose 120 MG; Start 11/24/18 at 10:00 Escitalopram Oxalate (Lexapro) 20 mg DAILY PO Last administered on 11/24/18 10:01; Admin Dose 20 MG; Start 11/24/18 at 09:30 Furosemide (Lasix) 80 mg DAILY@0600 PO Last administered on 11/24/18 10:01; Admin Dose 80 MG; Start 11/24/18 at 09:30; Status Hold Hydralazine HCl (Apresoline) 50 mg Q6 PO Last administered on 11/24/18 18:41; Admin Dose 50 MG; Start 11/24/18 at 09:30 Loratadine (Claritin) 10 mg DAILY PO Last administered on 11/24/18 10:12; Admin Dose 10 MG; Start 11/24/18 at 10:00 Multivitamins Therapeutic (Theragran) 1 tab DAILY PO Last administered on 10:02; Admin Dose 1 TAB; Start 11/24/18 at 09:30 Potassium Chloride (Micro-K) 8 meq DAILY PO Last administered on 1/2/19at 10:12; Admin Dose 8 MEQ; Start 11/24/18 at 10:00; Status Hold Tamsulosin HCl (Flomax) 0.4 mg HS PO Last administered on 11/24/18at 21:12; Admin Dose 0.4 MG; Start 11/24/18 at 21:00 Calcium/Vitamin D (Oyster Shell/ Vit-D (500/200)) 1 tab DAILY PO Last administered on 11/24/18at 10:12; Admin Dose 1 TAB; Start 11/24/18 at 09:30 Aspirin (Ecotrin) 325 mg DAILY PO ; Start 11/25/18 at 09:00 Metoprolol Tartrate (Lopressor) 5 mg Q4H PRN IV HR>110 Hold SBP<100; Start 11/24/18 at 11:00 Pantoprazole (Protonix Tab) 40 mg DAILY@06 PO ; Start 11/25/18 at 06:00 Ferric Sodium Gluconate Complex 125 mg/Sodium Chloride 110 ml @ 110 mls/hr DAILY@1300 IVPB ; Start 11/25/18 at 13:00; Stop 11/29/18 at 13:59 OK SOOD Nov 25, 2018 09:20
[2018-11-25] MEDS: MULTIVITAMINS THERAPEUTIC TAB PO SCH (09:21)
[2018-11-25] MEDS: CEFEPIME 1GM/50 ML (PMX) 50 ML IVPB SCH ×2 (09:22→20:11)
--- NOTE | 2018-11-25 09:42 | NUR ---
Called Dr. Cramer regarding low urine output (20 cc at this time. Was 5 cc at 0730). Verbalized, "You need to speak with the medical Doctors. This is more of a medical problem rather than a urological problem. Will notify Dr. Cotton regarding low urine output.
--- NOTE | 2018-11-25 11:00 | PN ---
Date/Time of Note Date/Time of Note DATE: 11/25/18 TIME: 10:50 Assessment/Plan VTE Prophylaxis Risk score (from Ns)>0 risk: 16 SCD applied (from Ns): Yes Pharmacological prophylaxis: other Lines/Catheters IV [facility] Type [facility]from [facility]): Peripheral IV Urinary Cath still in place: Yes Reason Cath still needed: urinary retention Assessment/Plan Hospital Course S: Patient seen by multiple consultants yesterday, still having overall low urine output since admission. Had some atrial fibrillation with RVR yesterday, now having some bradycardia and hypotension. Blood pressure medicines held this morning subsequently. No fevers in the last 24 hours however. O: VS - see below PE: Const: Lying in bed, no acute distress presently, family at the bedside Head: Atraumatic, normocephalic Eyes: Normal Conjunctiva, PERRLA, EOMI, normal sclera, no nystagmus ENT: Normal External Ears, Nose and Mouth, moist mucus membranes. Neck: Supple Resp: Some increased work of breathing, still some bilateral rhonchi and wheezes decreased breath sounds in the bases Cardio: Regular rate and rhythm, no murmurs, S1 S2 present Abd: Soft, non tender x 4, slight distention. Normal bowel sounds, no guarding or rebound Ext: No cyanosis, or edema Neur: No focal deficits 2D echo November 24, 2018: Conclusions Normal left ventricular systolic function. Normal left ventricular cavity size. Sigmoid septum. Ejection fraction is visually estimated at 55 %. Normal right ventricular systolic function. Moderate enlargement of right ventricle. There is mild enlargement of left atrium. There is mild enlargement of right atrium. Mild mitral leaflet calcification. Mild mitral annular calcification. Trace mitral regurgitation. Normal appearance of the tricuspid valve. There is trace tricuspid regurgitation. Assessment/Plan: 78-year-old male recently diagnosed with new colon mass, who presents with: 1. Hypoxic and hypercapnic respiratory failure: secondary to pneumonia and CHF/mild fluid overload. Afebrile for last 24 hours. Earlier this admission patient required BiPAP -Continue ICU care, Supplemental oxygen, BiPAP as needed, bronchodilators -continue IV antibiotic, follow culture results, Tylenol as needed fever -Follow up pulmonary recommendations -DuoNeb's as needed 2. Sepsis: As evidenced by fever and tachycardia: Secondary to pneumonia -see #1. Slowly improving now as patient is been afebrile for the last 24 hours -Again, continue broad-spectrum IV antibiotic -Follow-up respiratory and blood culture results - Lactic acid slightly elevated, continue to trend lactate 3. Cardiac, elevated troponins: Likely secondary to #1 and #2-Status post treatment dose Lovenox in ER. Elevated troponins, per cardiology, likely a type 2 demand infarct in the setting of fevers, hypercarbic respiratory failure -but currently down trending cardiac enzymes -Continue to trend troponin -Follow-up cardiology consult recommendations 4. Sigmoid mass: Status post biopsy during recent hospitalization. Pathology pending -there is a suspicion of colon cancer given elevated tumor markers -Follow-up results of biopsy performed a few days ago -All of her conditions from hematology oncology, GI teams -Surgery consult obtained as well, follow-up their recommendations 5. Atrial fibrillation with RVR -appears to be resolved presently after getting a dose of digoxin - again now patient having bradycardia -Continue to monitor, patient on beta-esther and digoxin (but these held this morning), cardiology consult 6. Renal insufficiency: Creatinine slightly worsened -likely secondary to sepsis - during recent hospitalization, he was diagnosed with obstructive uropathy and was evaluated by urology at that time. Appreciate renal consult, Ballard catheter in place now, but again overall having lower urine output, patient also still somewhat hypotensive. -Continue Ballard, measure urine output carefully -Follow-up recommendations from urology and renal teams 7. Diabetes: Sugar stable, continue insulin while in-house Critical care time spent on patient care today equals 50 minutes. Result Diagram: 11/25/18 0337 11/25/18 0337 Results 24hrs Laboratory Tests Test 11/24/18 14:52 11/24/18 17:00 11/24/18 21:09 11/25/18 03:32 Lactic Acid Level 1.6 1.5 Troponin I 0.899 *H 0.724 *H 0.621 *H Sodium Level 146 H Potassium Level 4.0 Chloride Level 109 Carbon Dioxide Level 29 Anion Gap 8 Blood Urea Nitrogen 47 H Creatinine 1.83 H Est Glomerular Filtrat Rate mL/min Glucose Level 198 Calcium Level 8.4 Phosphorus Level 5.3 H Magnesium Level 2.1 Test 11/25/18 03:37 11/25/18 03:48 White Blood Count 12.5 H Red Blood Count 4.18 L Hemoglobin 8.6 L Hematocrit 33.8 L Mean Corpuscular Volume 80.9 L Mean Corpuscular 20.6 L Hemoglobin Mean Corpuscular 25.4 L Hemoglobin Concent Red Cell Distribution 29.5 H Width Platelet Count 172 Mean Platelet Volume Immature Granulocytes % 0.600 H Neutrophils % Segmented Neutrophils 89 H % (Manual) Lymphocytes % Lymphocytes % (Manual) 6 L Monocytes % Monocytes % (Manual) 5 Eosinophils % Basophils % Nucleated Red Blood 0.0 Cells % Immature Granulocytes # 0.070 H Neutrophils # Lymphocytes (Manual) 0.7 L Lymphocytes # Monocytes # Monocytes # (Manual) 0.6 Eosinophils # Basophils # Nucleated Red Blood Cells # Platelet Estimate NORMAL Giant Platelets 7 H Polychromasia 2+ Hypochromasia 2+ Poikilocytosis 2+ Anisocytosis 2+ Microcytosis 2+ Tear Drop Cells 1+ Ovalocytes 2+ Sodium Level 144 Potassium Level 4.5 Chloride Level 106 Carbon Dioxide Level 30 Anion Gap 8 Blood Urea Nitrogen 57 H Creatinine 2.11 H Est Glomerular Filtrat Rate mL/min Glucose Level 132 # Calcium Level 8.8 Lactic Acid Level 1.1 Iron Level 18 L Total Iron Binding 338 Capacity Percent Iron Saturation 5 L Exam/Review of Systems Vital Signs Vitals Vital Signs Date Temp Pulse Resp B/P (MAP) Pulse Ox O2 O2 Flow FiO2 Time Delivery Rate 11/25/18 98.4 61 18 97/46 (63) 98 09:00 11/25/18 Nasal 6.0 08:00 Cannula 11/24/18 30 04:31 Intake and Output 11/24/18 11/24/18 11/25/18 1515:00 23:00 07:00 IntakeIntake Total 1140 ml 1525 ml OutputOutput Total 170 ml 190 ml 100 ml BalanceBalance 970 ml 1335 ml -100 ml Medications Medications Current Medications Ondansetron HCl (Zofran Inj) 4 mg Q6H PRN IV NAUSEA AND/OR VOMITING; Start 11/23/18 at 22:30 Acetaminophen (Tylenol Liquid) 650 mg Q6H PRN PO PAIN LEVEL 1-3 OR FEVER; Start 11/23/18 at 22:30 Acetaminophen (Tylenol Supp) 650 mg Q4H PRN [place] PAIN LEVEL 1-3 OR FEVER; Start 11/23/18 at 22:30 Lorazepam (Ativan) 0.5 mg Q4H PRN IV ANXIETY; Start 11/23/18 at 22:30 Cefepime HCl 50 ml @ 100 mls/hr Q12 IVPB Last administered on 11/25/18 09:22; Admin Dose 100 MLS/HR; Start 11/23/18 at 22:30 Atorvastatin Calcium (Lipitor) 20 mg HS PO Last administered on 11/24/18 20:48; Admin Dose 20 MG; Start 11/24/18 at 21:00 Albuterol/ Ipratropium (Duoneb) 3 ml Q4H RESP THERAPY PRN HHN SHORTNESS OF BREATH; Start 11/24/18 at 09:00 Aripiprazole (Abilify) 5 mg DAILY PO Last administered on 11/25/18 09:19; Admin Dose 5 MG; Start 11/24/18 at 09:30 Atenolol (Tenormin) 50 mg DAILY PO Last administered on 11/24/18 10:01; Admin Dose 50 MG; Start 11/24/18 at 09:30 Digoxin (Digoxin) 0.25 mg DAILY@1300 PO Last administered on 11/24/18 15:25; Admin Dose 0.25 MG; Start 11/24/18 at 13:00 Diltiazem HCl (Cardizem Sr) 120 mg Q12 PO Last administered on 11/24/18 20:49; Admin Dose 120 MG; Start 11/24/18 at 10:00 Escitalopram Oxalate (Lexapro) 20 mg DAILY PO Last administered on 11/25/18 09:19; Admin Dose 20 MG; Start 11/24/18 at 09:30 Furosemide (Lasix) 80 mg DAILY@0600 PO Last administered on 11/24/18 10:01; Admin Dose 80 MG; Start 11/24/18 at 09:30; Status Hold Hydralazine HCl (Apresoline) 50 mg Q6 PO Last administered on 11/24/18 18:41; Admin Dose 50 MG; Start 11/24/18 at 09:30 Loratadine (Claritin) 10 mg DAILY PO Last administered on 11/25/18 09:19; Admin Dose 10 MG; Start 11/24/18 at 10:00 Multivitamins Therapeutic (Theragran) 1 tab DAILY PO Last administered on 11/25/18 09:21; Admin Dose 1 TAB; Start 11/24/18 at 09:30 Potassium Chloride (Micro-K) 8 meq DAILY PO Last administered on 11/24/18at 10:12; Admin Dose 8 MEQ; Start 11/24/18 at 10:00; Status Hold Tamsulosin HCl (Flomax) 0.4 mg HS PO Last administered on 11/24/18at 21:12; Admin Dose 0.4 MG; Start 11/24/18 at 21:00 Calcium/Vitamin D (Oyster Shell/ Vit-D (500/200)) 1 tab DAILY PO Last administered on 11/25/18at 09:19; Admin Dose 1 TAB; Start 11/24/18 at 09:30 Aspirin (Ecotrin) 325 mg DAILY PO Last administered on 11/25/18at 09:19; Admin Dose 325 MG; Start 11/25/18 at 09:00 Metoprolol Tartrate (Lopressor) 5 mg Q4H PRN IV HR>110 Hold SBP<100; Start 11/24/18 at 11:00 Pantoprazole (Protonix Tab) 40 mg DAILY@06 PO ; Start 11/25/18 at 06:00 Ferric Sodium Gluconate Complex 125 mg/Sodium Chloride 110 ml @ 110 mls/hr DAILY@1300 IVPB ; Start 11/25/18 at 13:00; Stop 11/29/18 at 13:59 NAYANA GARCIA Nov 25, 2018 11:00
--- NOTE | 2018-11-25 11:08 | CONS ---
Date/Time of Note Date/Time of Note DATE: 11/25/18 TIME: 11:05 Assessment/Plan Assessment/Plan Assessment/Plan A 78 yo male with #Colon mass - locally advanced colon ca, path pending - poor performance status and multiple co-morbidities make patient a poor surgical candidate -path pending; once path back pt may benefit from single agent Xeloda -but again given his multiple medical issues, a palliative rectal stent may be an initial approach #Microcytic Anemia -2/2 GI bleed -IV ordered x 5 days #Sepsis/ Pneumonia -continue antibiotics #NSTEMI -Continue asa -Holding/Dilt/atenolol in the setting of hypotension -Cardiac cath on hold given hypotension Patient is seen in collaboration with Dr Langley Result Diagram: 11/25/18 0337 11/25/18 0337 Results 24hrs Laboratory Tests Test 11/24/18 14:52 11/24/18 17:00 11/24/18 21:09 11/25/18 03:32 Lactic Acid Level 1.6 1.5 Troponin I 0.899 *H 0.724 *H 0.621 *H Sodium Level 146 H Potassium Level 4.0 Chloride Level 109 Carbon Dioxide Level 29 Anion Gap 8 Blood Urea Nitrogen 47 H Creatinine 1.83 H Est Glomerular Filtrat Rate mL/min Glucose Level 198 Calcium Level 8.4 Phosphorus Level 5.3 H Magnesium Level 2.1 Test 11/25/18 03:37 11/25/18 03:48 White Blood Count 12.5 H Red Blood Count 4.18 L Hemoglobin 8.6 L Hematocrit 33.8 L Mean Corpuscular Volume 80.9 L Mean Corpuscular 20.6 L Hemoglobin Mean Corpuscular 25.4 L Hemoglobin Concent Red Cell Distribution 29.5 H Width Platelet Count 172 Mean Platelet Volume Immature Granulocytes % 0.600 H Neutrophils % Segmented Neutrophils 89 H % (Manual) Lymphocytes % Lymphocytes % (Manual) 6 L Monocytes % Monocytes % (Manual) 5 Eosinophils % Basophils % Nucleated Red Blood 0.0 Cells % Immature Granulocytes # 0.070 H Neutrophils # Lymphocytes (Manual) 0.7 L Lymphocytes # Monocytes # Monocytes # (Manual) 0.6 Eosinophils # Basophils # Nucleated Red Blood Cells # Platelet Estimate NORMAL Giant Platelets 7 H Polychromasia 2+ Hypochromasia 2+ Poikilocytosis 2+ Anisocytosis 2+ Microcytosis 2+ Tear Drop Cells 1+ Ovalocytes 2+ Sodium Level 144 Potassium Level 4.5 Chloride Level 106 Carbon Dioxide Level 30 Anion Gap 8 Blood Urea Nitrogen 57 H Creatinine 2.11 H Est Glomerular Filtrat Rate mL/min Glucose Level 132 # Calcium Level 8.8 Lactic Acid Level 1.1 Iron Level 18 L Total Iron Binding 338 Capacity Percent Iron Saturation 5 L Consultation Date/Type/Reason Admit Date/Time Nov 23, 2018 at 22:01 Initial Consult Date 11/24/18 Type of Consult oncology Reason for Consultation COLON MASS Requesting Provider: NAYANA GARCIA 24 HR Interval Summary Free Text/Dictation SP Colonoscopy - started on IViron - dw staff Subjective hx not possible: pt non-verbal Constitutional: requiring IVF, requiring O2 Exam/Review of Systems Vital Signs Vitals Vital Signs Date Temp Pulse Resp B/P (MAP) Pulse Ox O2 O2 Flow FiO2 Time Delivery Rate 11/25/18 98.4 61 18 97/46 (63) 98 09:00 11/25/18 Nasal 6.0 08:00 Cannula 11/24/18 30 04:31 Intake and Output 11/24/18 11/24/18 11/25/18 1515:00 23:00 07:00 IntakeIntake Total 1140 ml 1525 ml OutputOutput Total 170 ml 190 ml 100 ml BalanceBalance 970 ml 1335 ml -100 ml Exam Constitutional: non-verbal, frail Psych: no complaints Eyes: nl lids ENMT: nl external ears & nose Respiratory: crackles/rales, diminished breath sounds Cardiovascular: nl pulses, other (s1s2) Gastrointestinal: soft Musculoskeletal: muscle weakness Extremities: normal pulses Neurological: unresponsive Medications Medications Current Medications Ondansetron HCl (Zofran Inj) 4 mg Q6H PRN IV NAUSEA AND/OR VOMITING; Start 11/23/18 at 22:30 Acetaminophen (Tylenol Liquid) 650 mg Q6H PRN PO PAIN LEVEL 1-3 OR FEVER; Start 11/23/18 at 22:30 Acetaminophen (Tylenol Supp) 650 mg Q4H PRN [place] PAIN LEVEL 1-3 OR FEVER; Start 11/23/18 at 22:30 Lorazepam (Ativan) 0.5 mg Q4H PRN IV ANXIETY; Start 11/23/18 at 22:30 Cefepime HCl 50 ml @ 100 mls/hr Q12 IVPB Last administered on 11/25/18 09:22; Admin Dose 100 MLS/HR; Start 11/23/18 at 22:30 Atorvastatin Calcium (Lipitor) 20 mg HS PO Last administered on 11/24/18at 20:48; Admin Dose 20 MG; Start 11/24/18 at 21:00 Albuterol/ Ipratropium (Duoneb) 3 ml Q4H RESP THERAPY PRN HHN SHORTNESS OF BREATH; Start 11/24/18 at 09:00 Aripiprazole (Abilify) 5 mg DAILY PO Last administered on 11/25/18 09:19; Admin Dose 5 MG; Start 11/24/18 at 09:30 Atenolol (Tenormin) 50 mg DAILY PO Last administered on 11/24/18 10:01; Admin Dose 50 MG; Start 11/24/18 at 09:30 Digoxin (Digoxin) 0.25 mg DAILY@1300 PO Last administered on 11/24/18 15:25; Admin Dose 0.25 MG; Start 11/24/18 at 13:00 Diltiazem HCl (Cardizem Sr) 120 mg Q12 PO Last administered on 11/24/18 20:49; Admin Dose 120 MG; Start 11/24/18 at 10:00 Escitalopram Oxalate (Lexapro) 20 mg DAILY PO Last administered on 11/25/18 09:19; Admin Dose 20 MG; Start 11/24/18 at 09:30 Furosemide (Lasix) 80 mg DAILY@0600 PO Last administered on 11/24/18 10:01; Admin Dose 80 MG; Start 11/24/18 at 09:30; Status Hold Hydralazine HCl (Apresoline) 50 mg Q6 PO Last administered on 11/24/18 18:41; Admin Dose 50 MG; Start 11/24/18 at 09:30 Loratadine (Claritin) 10 mg DAILY PO Last administered on 11/25/18 09:19; Admin Dose 10 MG; Start 11/24/18 at 10:00 Multivitamins Therapeutic (Theragran) 1 tab DAILY PO Last administered on 11/25/18 09:21; Admin Dose 1 TAB; Start 11/24/18 at 09:30 Potassium Chloride (Micro-K) 8 meq DAILY PO Last administered on 11/24/18at 10:12; Admin Dose 8 MEQ; Start 11/24/18 at 10:00; Status Hold Tamsulosin HCl (Flomax) 0.4 mg HS PO Last administered on 11/24/18at 21:12; Admin Dose 0.4 MG; Start 11/24/18 at 21:00 Calcium/Vitamin D (Oyster Shell/ Vit-D (500/200)) 1 tab DAILY PO Last administered on 11/25/18at 09:19; Admin Dose 1 TAB; Start 11/24/18 at 09:30 Aspirin (Ecotrin) 325 mg DAILY PO Last administered on 11/25/18at 09:19; Admin Dose 325 MG; Start 11/25/18 at 09:00 Metoprolol Tartrate (Lopressor) 5 mg Q4H PRN IV HR>110 Hold SBP<100; Start 11/24/18 at 11:00 Pantoprazole (Protonix Tab) 40 mg DAILY@06 PO ; Start 11/25/18 at 06:00 Ferric Sodium Gluconate Complex 125 mg/Sodium Chloride 110 ml @ 110 mls/hr DAILY@1300 IVPB ; Start 11/25/18 at 13:00; Stop 11/29/18 at 13:59 DORIAN MOSS Nov 25, 2018 11:08 am
--- NOTE | 2018-11-25 11:14 | CONS ---
Date/Time of Note Date/Time of Note DATE: 11/25/18 TIME: 11:06 Assessment/Plan Assessment/Plan Hospital Course IMPRESSION: 1. Non-ST elevation myocardial infarction, currently down trending cardiac enzymes likely a type 2 demand infarct in the setting of fevers, hypercarbic respiratory failure.-downtrended cardiac enzymes. NO cp. Echo this admit 11/24 with NL EF 55% 2. Abnormal electrocardiogram. 3. Right bundle branch block. 4. Colonic mass. 5. Anemia. 6. Renal failure-worsening 7. Leukocytosis. 8. Coagulopathy. 9. Sepsis. 10. Atrial fibrillation-now in SR Recc: -ICU -consider initiation of pressors -Continue asa -Holding/Dilt/atenolol in the setting of hypotension -Had placed patient on for LHC tomorrow at 9:30 am to better define coronary anatomy in anticipation of upcoming need for resection of sigmoid mass but given worsening renal function/Hotn may have to be postponed. -Continue broad spectrum abx's and f/u cx data Result Diagram: 11/25/18 0337 11/25/18 0337 Results 24hrs Laboratory Tests Test 11/24/18 14:52 11/24/18 17:00 11/24/18 21:09 11/25/18 03:32 Lactic Acid Level 1.6 1.5 Troponin I 0.899 *H 0.724 *H 0.621 *H Sodium Level 146 H Potassium Level 4.0 Chloride Level 109 Carbon Dioxide Level 29 Anion Gap 8 Blood Urea Nitrogen 47 H Creatinine 1.83 H Est Glomerular Filtrat Rate mL/min Glucose Level 198 Calcium Level 8.4 Phosphorus Level 5.3 H Magnesium Level 2.1 Test 11/25/18 03:37 11/25/18 03:48 White Blood Count 12.5 H Red Blood Count 4.18 L Hemoglobin 8.6 L Hematocrit 33.8 L Mean Corpuscular Volume 80.9 L Mean Corpuscular 20.6 L Hemoglobin Mean Corpuscular 25.4 L Hemoglobin Concent Red Cell Distribution 29.5 H Width Platelet Count 172 Mean Platelet Volume Immature Granulocytes % 0.600 H Neutrophils % Segmented Neutrophils 89 H % (Manual) Lymphocytes % Lymphocytes % (Manual) 6 L Monocytes % Monocytes % (Manual) 5 Eosinophils % Basophils % Nucleated Red Blood 0.0 Cells % Immature Granulocytes # 0.070 H Neutrophils # Lymphocytes (Manual) 0.7 L Lymphocytes # Monocytes # Monocytes # (Manual) 0.6 Eosinophils # Basophils # Nucleated Red Blood Cells # Platelet Estimate NORMAL Giant Platelets 7 H Polychromasia 2+ Hypochromasia 2+ Poikilocytosis 2+ Anisocytosis 2+ Microcytosis 2+ Tear Drop Cells 1+ Ovalocytes 2+ Sodium Level 144 Potassium Level 4.5 Chloride Level 106 Carbon Dioxide Level 30 Anion Gap 8 Blood Urea Nitrogen 57 H Creatinine 2.11 H Est Glomerular Filtrat Rate mL/min Glucose Level 132 # Calcium Level 8.8 Lactic Acid Level 1.1 Iron Level 18 L Total Iron Binding 338 Capacity Percent Iron Saturation 5 L Consultation Date/Type/Reason Admit Date/Time Nov 23, 2018 at 22:01 Initial Consult Date 11/24/18 Type of Consult cardiology Reason for Consultation Nstemi/AF Requesting Provider: NAYANA GARCIA Exam/Review of Systems Vital Signs Vitals Vital Signs Date Temp Pulse Resp B/P (MAP) Pulse Ox O2 O2 Flow FiO2 Time Delivery Rate 11/25/18 98.4 61 18 97/46 (63) 98 09:00 11/25/18 Nasal 6.0 08:00 Cannula 11/24/18 30 04:31 Intake and Output 11/24/18 11/24/18 11/25/18 1515:00 23:00 07:00 IntakeIntake Total 1140 ml 1525 ml OutputOutput Total 170 ml 190 ml 100 ml BalanceBalance 970 ml 1335 ml -100 ml Exam Review of Systems: CONSTITUTIONAL: No fevers, chills. PULMONARY: No sob CARDIOVASCULAR: No chest pain/palpitations GASTROINTESTINAL: No nausea/vomiting. GENITOURINARY: No hematuria/dysuria. MUSCULOSKELETAL: No myagias/arthalgias. PSYCHIATRIC: The patient denies depression. NEUROLOGIC: No weakness Constitutional: alert Psych: no complaints Head: normocephalic ENMT: mucosa pink and moist Neck: supple, jvd (9 cm water) Respiratory: diminished breath sounds Cardiovascular: regular rate and rhythm Gastrointestinal: soft, non-tender Musculoskeletal: muscle tone (normal) Extremities: pitting pedal edema (trace/B) Neurological: other (No focal deficits) Medications Medications Current Medications Ondansetron HCl (Zofran Inj) 4 mg Q6H PRN IV NAUSEA AND/OR VOMITING; Start 11/23/18 at 22:30 Acetaminophen (Tylenol Liquid) 650 mg Q6H PRN PO PAIN LEVEL 1-3 OR FEVER; Start 11/23/18 at 22:30 Acetaminophen (Tylenol Supp) 650 mg Q4H PRN [place] PAIN LEVEL 1-3 OR FEVER; Start 11/23/18 at 22:30 Lorazepam (Ativan) 0.5 mg Q4H PRN IV ANXIETY; Start 11/23/18 at 22:30 Cefepime HCl 50 ml @ 100 mls/hr Q12 IVPB Last administered on 11/25/18 09:22; Admin Dose 100 MLS/HR; Start 11/23/18 at 22:30 Atorvastatin Calcium (Lipitor) 20 mg HS PO Last administered on 11/24/18at 20:48; Admin Dose 20 MG; Start 11/24/18 at 21:00 Albuterol/ Ipratropium (Duoneb) 3 ml Q4H RESP THERAPY PRN HHN SHORTNESS OF BREATH; Start 11/24/18 at 09:00 Aripiprazole (Abilify) 5 mg DAILY PO Last administered on 11/25/18 09:19; Admin Dose 5 MG; Start 11/24/18 at 09:30 Atenolol (Tenormin) 50 mg DAILY PO Last administered on 11/24/18 10:01; Admin Dose 50 MG; Start 11/24/18 at 09:30 Digoxin (Digoxin) 0.25 mg DAILY@1300 PO Last administered on 11/24/18 15:25; Admin Dose 0.25 MG; Start 11/24/18 at 13:00 Diltiazem HCl (Cardizem Sr) 120 mg Q12 PO Last administered on 11/24/18 20:49; Admin Dose 120 MG; Start 11/24/18 at 10:00 Escitalopram Oxalate (Lexapro) 20 mg DAILY PO Last administered on 11/25/18 09:19; Admin Dose 20 MG; Start 11/24/18 at 09:30 Furosemide (Lasix) 80 mg DAILY@0600 PO Last administered on 11/24/18 10:01; Admin Dose 80 MG; Start 11/24/18 at 09:30; Status Hold Hydralazine HCl (Apresoline) 50 mg Q6 PO Last administered on 11/24/18 18:41; Admin Dose 50 MG; Start 11/24/18 at 09:30 Loratadine (Claritin) 10 mg DAILY PO Last administered on 11/25/18 09:19; Admin Dose 10 MG; Start 11/24/18 at 10:00 Multivitamins Therapeutic (Theragran) 1 tab DAILY PO Last administered on 11/25/18 09:21; Admin Dose 1 TAB; Start 11/24/18 at 09:30 Potassium Chloride (Micro-K) 8 meq DAILY PO Last administered on 11/24/18at 10:12; Admin Dose 8 MEQ; Start 11/24/18 at 10:00; Status Hold Tamsulosin HCl (Flomax) 0.4 mg HS PO Last administered on 11/24/18 21:12; Admin Dose 0.4 MG; Start 11/24/18 at 21:00 Calcium/Vitamin D (Oyster Shell/ Vit-D (500/200)) 1 tab DAILY PO Last administered on 11/25/18 09:19; Admin Dose 1 TAB; Start 11/24/18 at 09:30 Aspirin (Ecotrin) 325 mg DAILY PO Last administered on 11/25/18 09:19; Admin Dose 325 MG; Start 11/25/18 at 09:00 Metoprolol Tartrate (Lopressor) 5 mg Q4H PRN IV HR>110 Hold SBP<100; Start 11/24/18 at 11:00 Pantoprazole (Protonix Tab) 40 mg DAILY@06 PO ; Start 11/25/18 at 06:00 Ferric Sodium Gluconate Complex 125 mg/Sodium Chloride 110 ml @ 110 mls/hr DAILY@1300 IVPB ; Start 11/25/18 at 13:00; Stop 11/29/18 at 13:59 TWAN ESTEVEZ Nov 25, 2018 11:14
--- NOTE | 2018-11-25 11:26 | NUR ---
Paged Dr. Linn for low urine output. Received call back and was notified. No new orders received. Verbalized to continue monitoring urine output.
--- NOTE | 2018-11-25 11:49 | NUR ---
WOUND CONSULT: 78 year old male admitted with hypoxia and hypercapnic respiratory failure possible 2/2 to pneumonia and fluid overload per record. History of sigmoid mass and diabetes. Patient awake with eye open. Nasal cannula. Ballard cath. Incontinent of bowel. Max assist to turn. On low air loss surface. WBC 12.5. H&H 8.6/33.8 BUN/Cr 57/2.11. Albumin 3.2. Dietitian on case. Generalized edema. ASSESSMENT/RECOMMENDATIONS: - Right inner gluteal region/buttock intact deep tissue pressure injury vs unknown etiology. Linear blood blister measured [id number]. Unable to directly palpate bone to injury area. Periwound intact. No drainage. No odor. Recommended to cleanse with normal saline. Pat dry. Apply Venelex ointment BID. Then, cover with foam border dressing. - Float heels off bed with HeelZup Gibson or at least 2 pillows. - Bilateral heels and Bilateral ankles: Cover with Allevyn Heels for protection. Assess skin under dressing each shift. - Continue low air loss surface. - Reposition every 2 hours. - Earmates foam for nasal cannula for protection. Discussed assessment and plan of care with RNGwendolyn. RN to obtain wound care recommendations from . [place], BSN RN CWOCN
[2018-11-25] MEDS ORDERED: SOD CHLORIDE 0.9% 250 ML IV ONE (12:30)
[2018-11-25] MEDS ORDERED: LIDOCAINE 1% (MPF) 5 ML VIAL SC ONE (12:30)
--- NOTE | 2018-11-25 12:47 | NUR ---
Received order for patient to be on levophed drip from Dr. Ferro. Dr. Cotton made aware. Received order for PICC line insertion for patient. Consent signed by Ang (Son).
[2018-11-25] MEDS: DIGOXIN 0.25 MG TAB PO SCH (13:00)
--- NOTE | 2018-11-25 13:43 | CONS ---
Date/Time of Note Date/Time of Note DATE: 11/25/18 TIME: 13:43 Assessment/Plan Assessment/Plan Assessment/Plan 1. Oliguric acute on chronic renal failure due to Sepsis and Hemodynamics + obstructive uropathy 2. atrial fibrillation with RVR 3. acute hypoxemic and hypercapnic resp failure due to PNA 4. Sepsis 5. Positive troponin 6. BPH on flomax Plan: BUN/Cr still high, urine output dropped, will start bumex gtt at 1 mg/hr s/p Urology consult and Ballard placement Renal US will follow up Result Diagram: 11/25/18 0337 11/25/18 0337 Results 24hrs Laboratory Tests Test 11/24/18 14:52 11/24/18 17:00 11/24/18 21:09 11/25/18 03:32 Lactic Acid Level 1.6 1.5 Troponin I 0.899 *H 0.724 *H 0.621 *H Sodium Level 146 H Potassium Level 4.0 Chloride Level 109 Carbon Dioxide Level 29 Anion Gap 8 Blood Urea Nitrogen 47 H Creatinine 1.83 H Est Glomerular Filtrat Rate mL/min Glucose Level 198 Calcium Level 8.4 Phosphorus Level 5.3 H Magnesium Level 2.1 Test 11/25/18 03:37 11/25/18 03:48 White Blood Count 12.5 H Red Blood Count 4.18 L Hemoglobin 8.6 L Hematocrit 33.8 L Mean Corpuscular Volume 80.9 L Mean Corpuscular 20.6 L Hemoglobin Mean Corpuscular 25.4 L Hemoglobin Concent Red Cell Distribution 29.5 H Width Platelet Count 172 Mean Platelet Volume Immature Granulocytes % 0.600 H Neutrophils % Segmented Neutrophils 89 H % (Manual) Lymphocytes % Lymphocytes % (Manual) 6 L Monocytes % Monocytes % (Manual) 5 Eosinophils % Basophils % Nucleated Red Blood 0.0 Cells % Immature Granulocytes # 0.070 H Neutrophils # Lymphocytes (Manual) 0.7 L Lymphocytes # Monocytes # Monocytes # (Manual) 0.6 Eosinophils # Basophils # Nucleated Red Blood Cells # Platelet Estimate NORMAL Giant Platelets 7 H Polychromasia 2+ Hypochromasia 2+ Poikilocytosis 2+ Anisocytosis 2+ Microcytosis 2+ Tear Drop Cells 1+ Ovalocytes 2+ Sodium Level 144 Potassium Level 4.5 Chloride Level 106 Carbon Dioxide Level 30 Anion Gap 8 Blood Urea Nitrogen 57 H Creatinine 2.11 H Est Glomerular Filtrat Rate mL/min Glucose Level 132 # Calcium Level 8.8 Lactic Acid Level 1.1 Iron Level 18 L Total Iron Binding 338 Capacity Percent Iron Saturation 5 L Consultation Date/Type/Reason Admit Date/Time Nov 23, 2018 at 22:01 Initial Consult Date 11/24/18 Type of Consult NEPHROLOGY Requesting Provider: NAYANA GARCIA Exam/Review of Systems Vital Signs Vitals Vital Signs Date Temp Pulse Resp B/P (MAP) Pulse Ox O2 O2 Flow FiO2 Time Delivery Rate 11/25/18 98.0 59 14 93/40 (57) 100 13:00 11/25/18 Nasal 6.0 08:00 Cannula 11/24/18 30 04:31 Intake and Output 11/24/18 11/24/18 11/25/18 1515:00 23:00 07:00 IntakeIntake Total 1140 ml 1525 ml OutputOutput Total 170 ml 190 ml 110 ml BalanceBalance 970 ml 1335 ml -110 ml Exam Constitutional: alert Respiratory: congested cough, crackles/rales, diminished breath sounds Cardiovascular: regular rate and rhythm, nl pulses Gastrointestinal: soft, non-tender Musculoskeletal: nl extremities to inspection, muscle weakness, swelling Neurological: other (Non focal ) Skin: nl turgor Lymph: nl lymph nodes Medications Medications Current Medications Ondansetron HCl (Zofran Inj) 4 mg Q6H PRN IV NAUSEA AND/OR VOMITING; Start 11/23/18 at 22:30 Acetaminophen (Tylenol Liquid) 650 mg Q6H PRN PO PAIN LEVEL 1-3 OR FEVER; Start 11/23/18 at 22:30 Acetaminophen (Tylenol Supp) 650 mg Q4H PRN [place] PAIN LEVEL 1-3 OR FEVER; Start 11/23/18 at 22:30 Lorazepam (Ativan) 0.5 mg Q4H PRN IV ANXIETY; Start 11/23/18 at 22:30 Cefepime HCl 50 ml @ 100 mls/hr Q12 IVPB Last administered on 11/25/18at 09:22; Admin Dose 100 MLS/HR; Start 11/23/18 at 22:30; Stop 11/25/18 at 23:45 Atorvastatin Calcium (Lipitor) 20 mg HS PO Last administered on 11/24/18at 20:48; Admin Dose 20 MG; Start 11/24/18 at 21:00 Albuterol/ Ipratropium (Duoneb) 3 ml Q4H RESP THERAPY PRN HHN SHORTNESS OF BREATH; Start 11/24/18 at 09:00 Aripiprazole (Abilify) 5 mg DAILY PO Last administered on 11/25/18 09:19; Admin Dose 5 MG; Start 11/24/18 at 09:30 Digoxin (Digoxin) 0.25 mg DAILY@1300 PO Last administered on 11/24/18at 15:25; Admin Dose 0.25 MG; Start 11/24/18 at 13:00 Escitalopram Oxalate (Lexapro) 20 mg DAILY PO Last administered on 11/25/18 09:19; Admin Dose 20 MG; Start 11/24/18 at 09:30 Furosemide (Lasix) 80 mg DAILY@0600 PO Last administered on 11/24/18 10:01; Admin Dose 80 MG; Start 11/24/18 at 09:30; Status Hold Hydralazine HCl (Apresoline) 50 mg Q6 PO Last administered on 11/24/18 18:41; Admin Dose 50 MG; Start 11/24/18 at 09:30 Loratadine (Claritin) 10 mg DAILY PO Last administered on 11/25/18 09:19; Admin Dose 10 MG; Start 11/24/18 at 10:00 Multivitamins Therapeutic (Theragran) 1 tab DAILY PO Last administered on 11/25/18 09:21; Admin Dose 1 TAB; Start 11/24/18 at 09:30 Potassium Chloride (Micro-K) 8 meq DAILY PO Last administered on 11/24/18 10:12; Admin Dose 8 MEQ; Start 11/24/18 at 10:00; Status Hold Tamsulosin HCl (Flomax) 0.4 mg HS PO Last administered on 11/24/18 21:12; Admin Dose 0.4 MG; Start 11/24/18 at 21:00 Calcium/Vitamin D (Oyster Shell/ Vit-D (500/200)) 1 tab DAILY PO Last administered on 11/25/18 09:19; Admin Dose 1 TAB; Start 11/24/18 at 09:30 Aspirin (Ecotrin) 325 mg DAILY PO Last administered on 11/25/18 09:19; Admin Dose 325 MG; Start 11/25/18 at 09:00 Metoprolol Tartrate (Lopressor) 5 mg Q4H PRN IV HR>110 Hold SBP<100; Start 11/24/18 at 11:00 Pantoprazole (Protonix Tab) 40 mg DAILY@06 PO ; Start 11/25/18 at 06:00 Ferric Sodium Gluconate Complex 125 mg/Sodium Chloride 110 ml @ 110 mls/hr DAILY@1300 IVPB ; Start 11/25/18 at 13:00; Stop 11/29/18 at 13:59 Atenolol (Tenormin) 25 mg DAILY PO ; Start 11/25/18 at 14:00 Diltiazem HCl (Cardizem Sr) 120 mg DAILY PO ; Start 11/25/18 at 14:00 Norepinephrine 16 mg/Dextrose 500 ml @ 1.88 mls/hr TITRATE IV ; Start 11/25/18 at 14:00 Cefepime HCl 50 ml @ 100 mls/hr Q24H IVPB ; Start 11/26/18 at 12:00 RENAN HERNANDEZ MD Nov 25, 2018 13:43
[2018-11-25] MEDS ORDERED: ALBUMIN HUMAN 25% 100 ML IV ONE (14:00)
--- NOTE | 2018-11-25 15:45 | NUR ---
PICC Insertion. Received order in the Radiology Department from ICU for peripherally inserted central catheter (PICC) insertion at bedside. Orders verified and history reviewed. Patient lethargic but awakens to name with tactile stimulus, son at bedside until start of procedure. Procedure reviewed, son agreed to proceed. Signed consent on chart for PICC from the son. Mid-AURE circumference 31cm. LUE prepped with chlorhexidene, then maximum barrier drape applied. Xylocaine 1% given SC at the intended insertion site. Left brachial vein accessed with 21G needle. 6 FR triple lumen Arrow Power PICC, Lot#[id number], Product #[id number], inserted into brachial vein after trimming catheter down to 42cm, using U/S guidance and sterile technique. Brisk blood return from all ports. CXR performed; tip verbally confirmed by in lower 1/3 SVC with 42cm internal and none out. All wires removed and accounted for. Sterile dressing applied. Patient tolerated procedure well.
[2018-11-25] MEDS: SOD FERRIC GLUC COMPLX 125 MG in SOD CHLORIDE 0.9% 100 ML IVPB SCH (16:28)
[2018-11-25] MEDS: BALSAM PERU/CASTOR OIL 60 GM TUBE TOP SCH ×2 (17:50→20:08)
[2018-11-25] MEDS: BUMETANIDE 25 MG in DEXTROSE 5% 150 ML IV SCH ×2 (17:50→20:51)
--- NOTE | 2018-11-25 18:21 | NUR ---
Per corina (son) request, All MD and staff must speak with him regarding all medical information. Pt.'s son Corina requested to not disclose information regarding biopsy result to patient. Will endorse to incoming nurse and staff.
--- NOTE | 2018-11-25 19:05 | CONS ---
Date/Time of Note Date/Time of Note DATE: 11/25/18 TIME: 19:02 Consult Date/Type/Reason Admit Date/Time Nov 23, 2018 at 22:01 Initial Consult Date 11/24/18 Type of Consultation: Urology Reason for Consultation Difficulty inserting catheter and phimosis Requesting Provider: NAYANA GARCIA Patient is sleeping and family at bedside asking not to tell him that the biopsy from the colon showed cancer Objective Vital Signs Date Temp Pulse Resp B/P (MAP) Pulse Ox O2 O2 Flow FiO2 Time Delivery Rate 11/25/18 97.9 59 13 102/51 95 Nasal 18:45 (68) Cannula 11/25/18 6.0 18:15 11/24/18 30 04:31 Intake and Output 11/24/18 11/24/18 11/25/18 1515:00 23:00 07:00 IntakeIntake Total 1140 ml 1525 ml OutputOutput Total 170 ml 190 ml 110 ml BalanceBalance 970 ml 1335 ml -110 ml Exam His urine output has been low earlier and he was put on Bumex. The Ballard catheter is in place and draining well Results/Medications Result Diagram: 11/25/18 0337 11/25/18 0337 Results 24 hrs Laboratory Tests Test 11/24/18 21:09 11/25/18 03:32 11/25/18 03:37 11/25/18 03:48 Lactic Acid Level 1.5 1.1 Troponin I 0.724 *H 0.621 *H Phosphorus Level 5.3 H Magnesium Level 2.1 White Blood Count 12.5 H Red Blood Count 4.18 L Hemoglobin 8.6 L Hematocrit 33.8 L Mean Corpuscular Volume 80.9 L Mean Corpuscular 20.6 L Hemoglobin Mean Corpuscular 25.4 L Hemoglobin Concent Red Cell Distribution 29.5 H Width Platelet Count 172 Mean Platelet Volume Immature Granulocytes % 0.600 H Neutrophils % Segmented Neutrophils 89 H % (Manual) Lymphocytes % Lymphocytes % (Manual) 6 L Monocytes % Monocytes % (Manual) 5 Eosinophils % Basophils % Nucleated Red Blood 0.0 Cells % Immature Granulocytes # 0.070 H Neutrophils # Lymphocytes (Manual) 0.7 L Lymphocytes # Monocytes # Monocytes # (Manual) 0.6 Eosinophils # Basophils # Nucleated Red Blood Cells # Platelet Estimate NORMAL Giant Platelets 7 H Polychromasia 2+ Hypochromasia 2+ Poikilocytosis 2+ Anisocytosis 2+ Microcytosis 2+ Tear Drop Cells 1+ Ovalocytes 2+ Sodium Level 144 Potassium Level 4.5 Chloride Level 106 Carbon Dioxide Level 30 Anion Gap 8 Blood Urea Nitrogen 57 H Creatinine 2.11 H Est Glomerular Filtrat Rate mL/min Glucose Level 132 # Calcium Level 8.8 Iron Level 18 L Total Iron Binding 338 Capacity Percent Iron Saturation 5 L Medications Current Medications Ondansetron HCl (Zofran Inj) 4 mg Q6H PRN IV NAUSEA AND/OR VOMITING; Start 11/23/18 at 22:30 Acetaminophen (Tylenol Liquid) 650 mg Q6H PRN PO PAIN LEVEL 1-3 OR FEVER; Start 11/23/18 at 22:30 Acetaminophen (Tylenol Supp) 650 mg Q4H PRN [place] PAIN LEVEL 1-3 OR FEVER; Start 11/23/18 at 22:30 Lorazepam (Ativan) 0.5 mg Q4H PRN IV ANXIETY; Start 11/23/18 at 22:30 Cefepime HCl 50 ml @ 100 mls/hr Q12 IVPB Last administered on 11/25/18at 09:22; Admin Dose 100 MLS/HR; Start 11/23/18 at 22:30; Stop 11/25/18 at 23:45 Atorvastatin Calcium (Lipitor) 20 mg HS PO Last administered on 11/24/18at 20:48; Admin Dose 20 MG; Start 11/24/18 at 21:00 Albuterol/ Ipratropium (Duoneb) 3 ml Q4H RESP THERAPY PRN HHN SHORTNESS OF BREATH; Start 11/24/18 at 09:00 Aripiprazole (Abilify) 5 mg DAILY PO Last administered on 11/25/18 09:19; Admin Dose 5 MG; Start 11/24/18 at 09:30 Digoxin (Digoxin) 0.25 mg DAILY@1300 PO Last administered on 11/24/18at 15:25; Admin Dose 0.25 MG; Start 11/24/18 at 13:00 Escitalopram Oxalate (Lexapro) 20 mg DAILY PO Last administered on 11/25/18 09:19; Admin Dose 20 MG; Start 11/24/18 at 09:30 Furosemide (Lasix) 80 mg DAILY@0600 PO Last administered on 11/24/18 10:01; Admin Dose 80 MG; Start 11/24/18 at 09:30; Status Hold Hydralazine HCl (Apresoline) 50 mg Q6 PO Last administered on 11/24/18 18:41; Admin Dose 50 MG; Start 11/24/18 at 09:30 Loratadine (Claritin) 10 mg DAILY PO Last administered on 11/25/18 09:19; Admin Dose 10 MG; Start 11/24/18 at 10:00 Multivitamins Therapeutic (Theragran) 1 tab DAILY PO Last administered on 11/25/18 09:21; Admin Dose 1 TAB; Start 11/24/18 at 09:30 Potassium Chloride (Micro-K) 8 meq DAILY PO Last administered on 11/24/18 10:12; Admin Dose 8 MEQ; Start 11/24/18 at 10:00; Status Hold Tamsulosin HCl (Flomax) 0.4 mg HS PO Last administered on 11/24/18 21:12; Admin Dose 0.4 MG; Start 11/24/18 at 21:00 Calcium/Vitamin D (Oyster Shell/ Vit-D (500/200)) 1 tab DAILY PO Last administered on 11/25/18 09:19; Admin Dose 1 TAB; Start 11/24/18 at 09:30 Aspirin (Ecotrin) 325 mg DAILY PO Last administered on 11/25/18 09:19; Admin Dose 325 MG; Start 11/25/18 at 09:00 Metoprolol Tartrate (Lopressor) 5 mg Q4H PRN IV HR>110 Hold SBP<100; Start 11/24/18 at 11:00 Pantoprazole (Protonix Tab) 40 mg DAILY@06 PO ; Start 11/25/18 at 06:00 Ferric Sodium Gluconate Complex 125 mg/Sodium Chloride 110 ml @ 110 mls/hr DAILY@1300 IVPB Last administered on 11/25/18 16:28; Admin Dose 110 MLS/HR; Start 11/25/18 at 13:00; Stop 11/29/18 at 13:59 Atenolol (Tenormin) 25 mg DAILY PO ; Start 11/25/18 at 14:00 Diltiazem HCl (Cardizem Sr) 120 mg DAILY PO ; Start 11/25/18 at 14:00 Norepinephrine 16 mg/Dextrose 500 ml @ 1.88 mls/hr TITRATE IV Last administered on 11/25/18at 15:51; Admin Dose 3.75 MLS/HR; Start 11/25/18 at 14:00 Cefepime HCl 50 ml @ 100 mls/hr Q24H IVPB ; Start 11/26/18 at 12:00 Bumetanide 25 mg/ Dextrose 250 ml @ 10 mls/hr Q24H IV Last administered on 11/25/18at 17:50; Admin Dose 10 MLS/HR; Start 11/25/18 at 16:00 IV Flush (NS 10 ml) 10 ml PRN PRN IV IV PROTOCOL; Start 11/25/18 at 16:00 Assessment/Plan Chief Complaint/Hosp Course 78-year-old male was admitted because of lethargy and difficulty breathing. Troponins were high. Attempts by the nursing staff to insert a Ballard catheter were not successful. He does have phimosis. I did insert a 16 [place] Ballard catheter for him and that is draining well. 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 Urologically I will keep the Ballard catheter as long as it is needed to monitor his output. MARILEE CHAVEZ MD Nov 25, 2018 19:05
--- NOTE | 2018-11-25 19:15 | NUR ---
End of shift report Patient is alert to person and place. No shortness of breath noted at this time. No complaint of pain. Patient was noted to have low blood pressure (lowest 81/45) and low heart rate (lowest 40's). Dr. Ferro made aware. Received order for pressors to be given. Dr. Cotton made aware. Received order for PICC line placement. Consent signed by Ang (son) at bedside. PICC line place on left upper arm. Limb alert placed to left arm. Started infusion of levophed drip after PICC line placement. Titrated by Red TAWER. Dr. dale made aware regarding low urine output. no orders received. Repositioned Q2. Wound care consult done. Wound care treatment: NS, Pat dry, Venelex cream, and mepilex BID. Wound care done. All needs attended to and met. Kept comfortable. Hourly rounds done.
--- NOTE | 2018-11-25 19:40 | RADRPT ---
Vent Rate: 51 bpm RR Interval: 0 msec TN Interval: 160 msec QRS Duration: 134 msec QT Interval: 466 msec QTC Interval: 429 msec P-R-T [place]: 53 - -80 - 0 degrees Sinus bradycardia Right bundle branch block Left anterior fascicular block Bifascicular block T wave abnormality, consider inferolateral ischemia Abnormal ECG Electronically Signed By: Levi Rodriguez [id number]
[2018-11-25] MEDS: TAMSULOSIN (SR) 0.4 MG CAP PO SCH (20:12)
[2018-11-25] MEDS: ATORVASTATIN 20 MG TAB PO SCH (20:12)
[2018-11-26] VITALS (35 sets, daily range): BP systolic 93–112; BP diastolic 44–62; PULSE 36–75; RESP 10–23
--- NOTE | 2018-11-26 01:35 | CONS ---
Date/Time of Note Date/Time of Note DATE: 11/26/18 TIME: 01:30 Assessment/Plan Assessment/Plan Assessment/Plan 78 year-old male admitted today for increasing shortness of breath patient recently diagnosedwith adenocarcinoma from colonoscopy which was done last week when the patient was in hospital. There were 2 areas biopsied at 12 and 20 cm a 20 cm mass was consistent with adenocarcinoma and the 12 cm with a dysplastic area. Patient also seems to be in acute renal failure with elevating elevated BUN and creatinine urology is following for this as well as insertion of Ballard catheter secondary to difficulty due to phimosis. Patient had non-STEMI OK. He is being followed by critical care, oncology, cardiology I discussed with the patient's son Ang who is a primary elementary math tutor and he does not want his father to know the diagnosis of colon cancer. He would like to wait a couple of days and see how the patient's clinical condition improves. I did explain that the patient is a very high risk for undergoing surgery and there is a chance that if he did undergo surgery that he would remain intubated postoperatively though the amount of time it would be unclear. Result Diagram: 11/25/18 0337 11/25/18 0337 Results 24hrs Laboratory Tests Test 11/25/18 03:32 11/25/18 03:37 11/25/18 03:48 Phosphorus Level 5.3 H Magnesium Level 2.1 Troponin I 0.621 *H White Blood Count 12.5 H Red Blood Count 4.18 L Hemoglobin 8.6 L Hematocrit 33.8 L Mean Corpuscular Volume 80.9 L Mean Corpuscular Hemoglobin 20.6 L Mean Corpuscular Hemoglobin Concent 25.4 L Red Cell Distribution Width 29.5 H Platelet Count 172 Mean Platelet Volume Immature Granulocytes % 0.600 H Neutrophils % Segmented Neutrophils % (Manual) 89 H Lymphocytes % Lymphocytes % (Manual) 6 L Monocytes % Monocytes % (Manual) 5 Eosinophils % Basophils % Nucleated Red Blood Cells % 0.0 Immature Granulocytes # 0.070 H Neutrophils # Lymphocytes (Manual) 0.7 L Lymphocytes # Monocytes # Monocytes # (Manual) 0.6 Eosinophils # Basophils # Nucleated Red Blood Cells # Platelet Estimate NORMAL Giant Platelets 7 H Polychromasia 2+ Hypochromasia 2+ Poikilocytosis 2+ Anisocytosis 2+ Microcytosis 2+ Tear Drop Cells 1+ Ovalocytes 2+ Sodium Level 144 Potassium Level 4.5 Chloride Level 106 Carbon Dioxide Level 30 Anion Gap 8 Blood Urea Nitrogen 57 H Creatinine 2.11 H Est Glomerular Filtrat Rate mL/min Glucose Level 132 # Calcium Level 8.8 Lactic Acid Level 1.1 Iron Level 18 L Total Iron Binding Capacity 338 Percent Iron Saturation 5 L Consultation Date/Type/Reason Admit Date/Time Nov 23, 2018 at 22:01 Date of Consultation: Nov 25, 2018 Type of Consult Surgical consultation Reason for Consultation Recently diagnosed sigmoid colon adenocarcinoma Requesting Provider: NAYANA GARCIA of Present Illness Patient 78-year-old male who has a complicated medical history with recent discharge from hospital at [facility] this past week. At that time he was noted to have anemia and colonoscopy revealed a moderate size mass in the sigmoid colon biopsies were taken and pathology at 12 and 20 cm were consistent with invasive adenocarcinoma. Patient also had elevated CEA at the time. Patient was discharged to home and presented today with shortness of breath and on evaluation noted to have acute CHF. Other complicating factors were phimosis and requiring urology to insert Ballard catheter increasing BUN and creatinine and decreasing urine output. Patient also had a non-STEMI, has been seen by cardiology critical care, pulmonary and oncology. Patient is now in the ICU not intubated but with signs of exacerbation of CHF. I discussed with the family they do not wish to have the patient know the diagnosis of his recent diagnosis of colon cancer at least at this time. I have an extensive discussion with the son regarding patient's wishes and next steps to treatment but they would like to hold off until his other medical issues become more stable. Respiratory: no complaints, pain, cough, pleuritic pain, shortness of breath (Increasing shortness of breath), sputum, wheezing, other Past Medical History Medical History: diabetes, hypertension, other (obstructive uropathy, atrial fibrillation ) Medications Current Medications Ondansetron HCl (Zofran Inj) 4 mg Q6H PRN IV NAUSEA AND/OR VOMITING; Start 11/23/18 at 22:30 Acetaminophen (Tylenol Liquid) 650 mg Q6H PRN PO PAIN LEVEL 1-3 OR FEVER; Start 11/23/18 at 22:30 Acetaminophen (Tylenol Supp) 650 mg Q4H PRN [place] PAIN LEVEL 1-3 OR FEVER; Start 11/23/18 at 22:30 Lorazepam (Ativan) 0.5 mg Q4H PRN IV ANXIETY; Start 11/23/18 at 22:30 Atorvastatin Calcium (Lipitor) 20 mg HS PO Last administered on 11/24/18at 20:48; Admin Dose 20 MG; Start 11/24/18 at 21:00 Albuterol/ Ipratropium (Duoneb) 3 ml Q4H RESP THERAPY PRN HHN SHORTNESS OF BREATH; Start 11/24/18 at 09:00 Aripiprazole (Abilify) 5 mg DAILY PO Last administered on 11/25/18 09:19; Admin Dose 5 MG; Start 11/24/18 at 09:30 Digoxin (Digoxin) 0.25 mg DAILY@1300 PO Last administered on 11/24/18 15:25; Admin Dose 0.25 MG; Start 11/24/18 at 13:00 Escitalopram Oxalate (Lexapro) 20 mg DAILY PO Last administered on 11/25/18 09:19; Admin Dose 20 MG; Start 11/24/18 at 09:30 Furosemide (Lasix) 80 mg DAILY@0600 PO Last administered on 11/24/18 10:01; Admin Dose 80 MG; Start 11/24/18 at 09:30; Status Hold Hydralazine HCl (Apresoline) 50 mg Q6 PO Last administered on 11/24/18 18:41; Admin Dose 50 MG; Start 11/24/18 at 09:30 Loratadine (Claritin) 10 mg DAILY PO Last administered on 11/25/18 09:19; Admin Dose 10 MG; Start 11/24/18 at 10:00 Multivitamins Therapeutic (Theragran) 1 tab DAILY PO Last administered on 11/25/18 09:21; Admin Dose 1 TAB; Start 11/24/18 at 09:30 Potassium Chloride (Micro-K) 8 meq DAILY PO Last administered on 11/24/18 10:12; Admin Dose 8 MEQ; Start 11/24/18 at 10:00; Status Hold Tamsulosin HCl (Flomax) 0.4 mg HS PO Last administered on 11/24/18 21:12; Admin Dose 0.4 MG; Start 11/24/18 at 21:00 Calcium/Vitamin D (Oyster Shell/ Vit-D (500/200)) 1 tab DAILY PO Last administered on 11/25/18at 09:19; Admin Dose 1 TAB; Start 11/24/18 at 09:30 Aspirin (Ecotrin) 325 mg DAILY PO Last administered on 11/25/18at 09:19; Admin Dose 325 MG; Start 11/25/18 at 09:00 Metoprolol Tartrate (Lopressor) 5 mg Q4H PRN IV HR>110 Hold SBP<100; Start 11/24/18 at 11:00 Pantoprazole (Protonix Tab) 40 mg DAILY@06 PO ; Start 11/25/18 at 06:00 Ferric Sodium Gluconate Complex 125 mg/Sodium Chloride 110 ml @ 110 mls/hr DAILY@1300 IVPB Last administered on 11/25/18at 16:28; Admin Dose 110 MLS/HR; Start 11/25/18 at 13:00; Stop 11/29/18 at 13:59 Atenolol (Tenormin) 25 mg DAILY PO ; Start 11/25/18 at 14:00 Diltiazem HCl (Cardizem Sr) 120 mg DAILY PO ; Start 11/25/18 at 14:00 Norepinephrine 16 mg/Dextrose 500 ml @ 1.88 mls/hr TITRATE IV Last administered on 11/25/18at 15:51; Admin Dose 3.75 MLS/HR; Start 11/25/18 at 14:00 Cefepime HCl 50 ml @ 100 mls/hr Q24H IVPB ; Start 11/26/18 at 12:00 Bumetanide 25 mg/ Dextrose 250 ml @ 10 mls/hr Q24H IV Last administered on 11/25/18at 20:51; Admin Dose 10 MLS/HR; Start 11/25/18 at 16:00 IV Flush (NS 10 ml) 10 ml PRN PRN IV IV PROTOCOL; Start 11/25/18 at 16:00 Allergies: Coded Allergies: No Known Allergy (Unverified , 11/23/18) Past Surgical History Past Surgical Hx: no surgical history, other Social History Alcohol Use: none Smoking Status: Never smoker Drug Use: none Exam/Review of Systems Vital Signs Vitals Vital Signs Date Temp Pulse Resp B/P (MAP) Pulse Ox O2 O2 Flow FiO2 Time Delivery Rate 11/26/18 98.2 69 10 98/53 (68) 94 Nasal 6.0 00:00 Cannula 11/24/18 30 04:31 Intake and Output 11/25/18 11/25/18 11/26/18 1414:59 22:59 06:59 IntakeIntake Total 120 ml 671.27 ml 31.26 ml OutputOutput Total 40 ml 55 ml 15 ml BalanceBalance 80 ml 616.27 ml 16.26 ml Exam Patient poor historian mildly interactive. The nurse says that he is able to ask for water but otherwise he is not able to have a conversation though he is also non-South African speaking (Polish speaking) according to the patient's son he was not interacting very much at all today. Patient is awake sitting in bed with mild bladder dyspnea noted. Heart regular regular normal S1-S2 without murmurs. Abdomen soft nondistended non-tender. Medications Medications Current Medications Ondansetron HCl (Zofran Inj) 4 mg Q6H PRN IV NAUSEA AND/OR VOMITING; Start 11/23/18 at 22:30 Acetaminophen (Tylenol Liquid) 650 mg Q6H PRN PO PAIN LEVEL 1-3 OR FEVER; Start 11/23/18 at 22:30 Acetaminophen (Tylenol Supp) 650 mg Q4H PRN [place] PAIN LEVEL 1-3 OR FEVER; Start 11/23/18 at 22:30 Lorazepam (Ativan) 0.5 mg Q4H PRN IV ANXIETY; Start 11/23/18 at 22:30 Atorvastatin Calcium (Lipitor) 20 mg HS PO Last administered on 11/24/18at 20:48; Admin Dose 20 MG; Start 11/24/18 at 21:00 Albuterol/ Ipratropium (Duoneb) 3 ml Q4H RESP THERAPY PRN HHN SHORTNESS OF BREATH; Start 11/24/18 at 09:00 Aripiprazole (Abilify) 5 mg DAILY PO Last administered on 11/25/18at 09:19; Admin Dose 5 MG; Start 11/24/18 at 09:30 Digoxin (Digoxin) 0.25 mg DAILY@1300 PO Last administered on 11/24/18at 15:25; Admin Dose 0.25 MG; Start 11/24/18 at 13:00 Escitalopram Oxalate (Lexapro) 20 mg DAILY PO Last administered on 11/25/18at 09:19; Admin Dose 20 MG; Start 11/24/18 at 09:30 Furosemide (Lasix) 80 mg DAILY@0600 PO Last administered on 11/24/18at 10:01; Admin Dose 80 MG; Start 11/24/18 at 09:30; Status Hold Hydralazine HCl (Apresoline) 50 mg Q6 PO Last administered on 11/24/18at 18:41; Admin Dose 50 MG; Start 11/24/18 at 09:30 Loratadine (Claritin) 10 mg DAILY PO Last administered on 11/25/18 09:19; Admin Dose 10 MG; Start 11/24/18 at 10:00 Multivitamins Therapeutic (Theragran) 1 tab DAILY PO Last administered on 11/25/18 09:21; Admin Dose 1 TAB; Start 11/24/18 at 09:30 Potassium Chloride (Micro-K) 8 meq DAILY PO Last administered on 11/24/18 10:12; Admin Dose 8 MEQ; Start 11/24/18 at 10:00; Status Hold Tamsulosin HCl (Flomax) 0.4 mg HS PO Last administered on 11/24/18 21:12; Admin Dose 0.4 MG; Start 11/24/18 at 21:00 Calcium/Vitamin D (Oyster Shell/ Vit-D (500/200)) 1 tab DAILY PO Last administered on 11/25/18 09:19; Admin Dose 1 TAB; Start 11/24/18 at 09:30 Aspirin (Ecotrin) 325 mg DAILY PO Last administered on 11/25/18 09:19; Admin Dose 325 MG; Start 11/25/18 at 09:00 Metoprolol Tartrate (Lopressor) 5 mg Q4H PRN IV HR>110 Hold SBP<100; Start 11/24/18 at 11:00 Pantoprazole (Protonix Tab) 40 mg DAILY@06 PO ; Start 11/25/18 at 06:00 Ferric Sodium Gluconate Complex 125 mg/Sodium Chloride 110 ml @ 110 mls/hr DAILY@1300 IVPB Last administered on 11/25/18at 16:28; Admin Dose 110 MLS/HR; Start 11/25/18 at 13:00; Stop 11/29/18 at 13:59 Atenolol (Tenormin) 25 mg DAILY PO ; Start 11/25/18 at 14:00 Diltiazem HCl (Cardizem Sr) 120 mg DAILY PO ; Start 11/25/18 at 14:00 Norepinephrine 16 mg/Dextrose 500 ml @ 1.88 mls/hr TITRATE IV Last administered on 11/25/18at 15:51; Admin Dose 3.75 MLS/HR; Start 11/25/18 at 14:00 Cefepime HCl 50 ml @ 100 mls/hr Q24H IVPB ; Start 11/26/18 at 12:00 Bumetanide 25 mg/ Dextrose 250 ml @ 10 mls/hr Q24H IV Last administered on 11/25/18at 20:51; Admin Dose 10 MLS/HR; Start 11/25/18 at 16:00 IV Flush (NS 10 ml) 10 ml PRN PRN IV IV PROTOCOL; Start 11/25/18 at 16:00 AJ SCOTT MD Nov 26, 2018 01:35
[2018-11-26] MEDS: PANTOPRAZOLE (EC) 40 MG TAB PO SCH (05:24)
--- NOTE | 2018-11-26 06:08 | NUR ---
end of shift report no acute events over night. pt slept most of the night. pt more lethargic today then yesterday. pt still oliguric. continuing bumex drip. vitals wnl. pt had a few second run of asymptomatic vtach. bed bath given and oral care provided, tolerated well.
[2018-11-26] MEDS: LORATADINE 10 MG TAB PO SCH (09:00)
[2018-11-26] MEDS: CALCIUM/VITAMIN D (500/200) TAB PO SCH (09:00)
[2018-11-26] MEDS: MULTIVITAMINS THERAPEUTIC TAB PO SCH (09:00)
[2018-11-26] MEDS: DILTIAZEM (SR) 60 MG CAP PO SCH (09:00)
[2018-11-26] MEDS: ATENOLOL 50 MG TAB PO SCH (09:00)
[2018-11-26] MEDS ORDERED: HEPARIN 1000 UNITS/ML 10 ML INJ ONE (09:15)
[2018-11-26] MEDS ORDERED: VERAPAMIL 5 MG INJ ONE (09:15)
[2018-11-26] MEDS ORDERED: FENTAnyl 50 MCG/ML VIAL ONE (09:15)
[2018-11-26] MEDS ORDERED: MIDAZOLAM 1 MG/ML 2 ML INJ ONE (09:15)
[2018-11-26] MEDS ORDERED: SOD CHLORIDE 0.9% 500 ML ONE (09:15)
[2018-11-26] MEDS ORDERED: IODIXANOL LOCM 100 ML BTL ONE (09:15)
[2018-11-26] MEDS ORDERED: LIDOCAINE 1% (MDV) 20 ML INJ ONE (09:15)
[2018-11-26] MEDS ORDERED: NITROGLYCERIN (IC) 100 MCG/ML INJ ONE (09:15)
--- NOTE | 2018-11-26 10:42 | CONS ---
DATE OF ADMISSION: 11/23/2018 DATE OF CONSULTATION: The patient is in the intensive care unit because of the myocardial infarction. He has a rectosigmoi d cancer. Pathology showed adenocarcinoma which was invasive and he is not a surgical candidate. He nce sigmoid stent needs to be placed. 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 PLAN: Discussed with the family, we will put a stent into the sigmoid colon, until he is stable for a surgical procedure. Dictated By: FRANCE BRIGGS MD NC/NTS Conf#: [id number] DID#: [id number] CC: NAYANA GARCIA; AJ PIERRE MD; MARILEE CHAVEZ MD;*End*
--- NOTE | 2018-11-26 10:48 | PN ---
Date/Time of Note Date/Time of Note DATE: 11/26/18 TIME: 10:39 Assessment/Plan VTE Prophylaxis Risk score (from Ns)>0 risk: 14 SCD applied (from Ns): Yes Pharmacological prophylaxis: other Lines/Catheters [facility] PICC Line Central line still needed: Yes Urinary Cath still in place: Yes Reason Cath still needed: urinary retention Assessment/Plan Hospital Course S: Patient seen by multiple consultants yesterday, now off of pressor support since early this morning after requiring it throughout the day yesterday. Pat ient still with minimal urine output despite Bumex IV given yesterday. No further arrhythmias noted. O: VS - see below PE: Const: Lying in bed, no acute distress presently, family at the bedside Head: Atraumatic, normocephalic Eyes: Normal Conjunctiva, PERRLA, EOMI, normal sclera, no nystagmus ENT: Normal External Ears, Nose and Mouth, moist mucus membranes. Neck: Supple Resp: Some increased work of breathing, still some bilateral rhonchi and wheezes decreased breath sounds in the bases Cardio: Regular rate and rhythm, no murmurs, S1 S2 present Abd: Soft, non tender x 4, slight distention. Normal bowel sounds, no guarding or rebound Ext: No cyanosis, or edema Neur: No focal deficits 2D echo November 24, 2018: Conclusions Normal left ventricular systolic function. Normal left ventricular cavity size. Sigmoid septum. Ejection fraction is visually estimated at 55 %. Normal right ventricular systolic function. Moderate enlargement of right ventricle. There is mild enlargement of left atrium. There is mild enlargement of right atrium. Mild mitral leaflet calcification. Mild mitral annular calcification. Trace mitral regurgitation. Normal appearance of the tricuspid valve. There is trace tricuspid regurgitation. Assessment/Plan: 78-year-old male recently diagnosed with new colon mass, who presents with: 1. Hypoxic and hypercapnic respiratory failure: secondary to pneumonia and CHF/mild fluid overload. Afebrile for last 48 hours. Earlier this admission patient required BiPAP -Continue ICU care, Supplemental oxygen, BiPAP as needed, bronchodilators -continue IV antibiotic, follow culture results, Tylenol as needed fever -Follow up pulmonary recommendations -DuoNeb's as needed 2. Sepsis: As evidenced by fever and tachycardia: Secondary to pneumonia -see #1. Slowly improving now as patient is been afebrile for the last 48 hours -Again, continue broad-spectrum IV antibiotic -Follow-up final respiratory and blood culture results 3. Cardiac, elevated troponins: Likely secondary to #1 and #2-Status post treatment dose Lovenox in ER. Elevated troponins, per cardiology, likely a type 2 demand infarct in the setting of fevers, hypercarbic respiratory failure -but currently down trending cardiac enzymes -Continue to trend troponin -Follow-up cardiology consult recommendations 4. Sigmoid mass: Status post biopsy during recent hospitalization. Pathology pending -there is a suspicion of colon cancer given elevated tumor markers -appr eciate surgery consult. -Follow-up final results of biopsy performed a few days ago -Follow-up surgery, hematology oncology, GI team recommendation 5. Atrial fibrillation with RVR -resolved now presently after getting a dose of digoxin - again now patient having bradycardia -Continue to monitor, patient on beta-esther and digoxin (but these held this morning), cardiology consult 6. Renal insufficiency: Overall appears to be worsening, patient received IV Bumex yesterday but still with very minimal urine output-likely secondary to sepsis - during recent hospitalization, he was diagnosed with obstructive uropathy and was evaluated by urology at that time. Appreciate renal consult, Ballard catheter in place now, but again overall having lower urine output. -Continue Ballard, measure urine output carefully, continue p.o. Bumex as ordered by renal team -Follow-up recommendations from urology and renal teams 7. Diabetes: Sugar stable, continue insulin while in-house Critical care time spent on patient care today equals 50 minutes. Result Diagram: 11/26/18 0430 11/26/18 0430 Results 24hrs Laboratory Tests Test 11/26/18 04:30 White Blood Count 10.9 H Red Blood Count 4.22 L Hemoglobin 8.8 L Hematocrit 35.0 L Mean Corpuscular Volume 82.9 Mean Corpuscular Hemoglobin 20.9 L Mean Corpuscular Hemoglobin Concent 25.1 L Red Cell Distribution Width 30.2 H Platelet Count 145 Mean Platelet Volume Immature Granulocytes % 1.700 H Neutrophils % 83.4 H Lymphocytes % 6.6 L Monocytes % 6.0 Eosinophils % 2.0 Basophils % 0.3 Nucleated Red Blood Cells % 0.5 H Immature Granulocytes # 0.190 H Neutrophils # 9.1 H Lymphocytes # 0.7 L Monocytes # 0.7 Eosinophils # 0.2 Basophils # 0.0 Nucleated Red Blood Cells # 0.1 H Sodium Level 144 Potassium Level 4.7 Chloride Level 107 Carbon Dioxide Level 27 Anion Gap 10 Blood Urea Nitrogen 71 H Creatinine 3.05 H Est Glomerular Filtrat Rate mL/min Glucose Level 120 Calcium Level 8.7 Total Bilirubin 0.0 L Direct Bilirubin 0.00 Indirect Bilirubin 0.0 Aspartate Amino Transf (AST/SGOT) 38 Alanine Aminotransferase (ALT/SGPT) 43 Alkaline Phosphatase 50 Total Protein 6.7 Albumin 3.5 Exam/Review of Systems Vital Signs Vitals Vital Signs Date Temp Pulse Resp B/P (MAP) Pulse Ox O2 O2 Flow FiO2 Time Delivery Rate 11/26/18 71 21 105/55 Nasal 08:00 (72) Cannula 11/26/18 6.0 08:00 11/26/18 98.0 99 07:00 11/24/18 30 04:31 Intake and Output 11/25/18 11/25/18 11/26/18 1515:00 23:00 07:00 IntakeIntake Total 150 ml 656.90 ml 75.63 ml OutputOutput Total 40 ml 45 ml 30 ml BalanceBalance 110 ml 611.90 ml 45.63 ml Medications Medications Current Medications Ondansetron HCl (Zofran Inj) 4 mg Q6H PRN IV NAUSEA AND/OR VOMITING; Start 11/23/18 at 22:30 Acetaminophen (Tylenol Liquid) 650 mg Q6H PRN PO PAIN LEVEL 1-3 OR FEVER; Start 11/23/18 at 22:30 Acetaminophen (Tylenol Supp) 650 mg Q4H PRN [place] PAIN LEVEL 1-3 OR FEVER; Start 11/23/18 at 22:30 Lorazepam (Ativan) 0.5 mg Q4H PRN IV ANXIETY; Start 11/23/18 at 22:30 Atorvastatin Calcium (Lipitor) 20 mg HS PO Last administered on 11/24/18at 20:48; Admin Dose 20 MG; Start 11/24/18 at 21:00 Albuterol/ Ipratropium (Duoneb) 3 ml Q4H RESP THERAPY PRN HHN SHORTNESS OF BREATH; Start 11/24/18 at 09:00 Aripiprazole (Abilify) 5 mg DAILY PO Last administered on 11/25/18at 09:19; Admin Dose 5 MG; Start 11/24/18 at 09:30 Digoxin (Digoxin) 0.25 mg DAILY@1300 PO Last administered on 11/24/18 15:25; Admin Dose 0.25 MG; Start 11/24/18 at 13:00 Escitalopram Oxalate (Lexapro) 20 mg DAILY PO Last administered on 11/25/18 09:19; Admin Dose 20 MG; Start 11/24/18 at 09:30 Furosemide (Lasix) 80 mg DAILY@0600 PO Last administered on 11/24/18 10:01; Admin Dose 80 MG; Start 11/24/18 at 09:30; Status Hold Hydralazine HCl (Apresoline) 50 mg Q6 PO Last administered on 11/24/18 18:41; Admin Dose 50 MG; Start 11/24/18 at 09:30 Loratadine (Claritin) 10 mg DAILY PO Last administered on 11/25/18 09:19; Admin Dose 10 MG; Start 11/24/18 at 10:00 Multivitamins Therapeutic (Theragran) 1 tab DAILY PO Last administered on 11/25/18 09:21; Admin Dose 1 TAB; Start 11/24/18 at 09:30 Potassium Chloride (Micro-K) 8 meq DAILY PO Last administered on 11/24/18 10:12; Admin Dose 8 MEQ; Start 11/24/18 at 10:00; Status Hold Tamsulosin HCl (Flomax) 0.4 mg HS PO Last administered on 11/24/18 21:12; Admin Dose 0.4 MG; Start 11/24/18 at 21:00 Calcium/Vitamin D (Oyster Shell/ Vit-D (500/200)) 1 tab DAILY PO Last administered on 11/25/18 09:19; Admin Dose 1 TAB; Start 11/24/18 at 09:30 Aspirin (Ecotrin) 325 mg DAILY PO Last administered on 11/25/18 09:19; Admin Dose 325 MG; Start 11/25/18 at 09:00 Metoprolol Tartrate (Lopressor) 5 mg Q4H PRN IV HR>110 Hold SBP<100; Start 11/24/18 at 11:00 Pantoprazole (Protonix Tab) 40 mg DAILY@06 PO Last administered on 11/26/18 0 5:24; Admin Dose 40 MG; Start 11/25/18 at 06:00 Ferric Sodium Gluconate Complex 125 mg/Sodium Chloride 110 ml @ 110 mls/hr DAILY@1300 IVPB Last administered on 11/25/18at 16:28; Admin Dose 110 MLS/HR; Start 11/25/18 at 13:00; Stop 11/29/18 at 13:59 Atenolol (Tenormin) 25 mg DAILY PO ; Start 11/25/18 at 14:00 Diltiazem HCl (Cardizem Sr) 120 mg DAILY PO ; Start 11/25/18 at 14:00 Norepinephrine 16 mg/Dextrose 500 ml @ 1.88 mls/hr TITRATE IV Last administered on 11/25/18at 15:51; Admin Dose 3.75 MLS/HR; Start 11/25/18 at 14:00 Cefepime HCl 50 ml @ 100 mls/hr Q24H IVPB ; Start 11/26/18 at 12:00 IV Flush (NS 10 ml) 10 ml PRN PRN IV IV PROTOCOL; Start 11/25/18 at 16:00 Bumetanide (Bumex) 2 mg BID DIURETICS PO ; Start 11/26/18 at 18:00 NAYANA GARCIA Nov 26, 2018 10:48
[2018-11-26] MEDS: ESCITALOPRAM 10 MG TAB PO SCH (11:45)
[2018-11-26] MEDS: ASPIRIN (EC) 325 MG TAB PO SCH (11:45)
[2018-11-26] MEDS: ARIPIPRAZOLE 5 MG TAB PO SCH (11:45)
--- NOTE | 2018-11-26 12:00 | NUR ---
SS NOTE: F/U MET WITH PT'S SON, PAWAN WHO REPORTED THAT HE HAD A GOOD COMMUNICATION WITH DR. GARCIA ABOUT PT'S CONDITION AND PLAN OF CARE. NO QUESTIONS AT THIS TIME. SW WILL REMAIN AVAILABLE.
--- NOTE | 2018-11-26 12:18 | NUR ---
PT NOTE Therapy day number 3 Subjective Denies pain Pain Scale NUMERIC Pain Intensity 0 (0-10) Patient Stated Goal for Pain Relief 0 (0-10) Pain Level Comment denies pain Pre Treatment Vital Signs Stable Yes - 101/62, 71bpm, 96% on 6LO2 via NC Exercise Assessment Label Bilat Lower Extremity Exercise Type Active ROM Additional Exercise Comments seated LAQs, marching Exercise Start Time 11:35 Exercise End Time 11:47 Total Exercise Time 12 min (8-127) Transfer Training Start Time 11:47 Supine to Sit Maximum Assist Transfer Sit to Stand Ability Maximum Assist Bed Mobility Sit to Supine Maximum Assist Sitting Tolerance 20 min Additional Mobility Comments all mobility maxA x 2 person assist Transfer Training End Time 12:18 Total Transfer Training Time 31 min (8-127) Additional Gait Comments intiated weight shifting; attempted marching (pt unable) Static Sitting Balance Fair plus Dynamic Sitting Balance Fair plus Standing Static Balance Fair minus Dynamic Standing Balance Poor plus Additional Balance Assessments Comments standing for ~8 minutes Safety Judgement Fair Activity Tolerance Fair Equipment Present Ballard Catheter IV pump Additional Equipment Present ICU lines, 6LO2 via NC Post Treatment Pain Intensity 0 0-10 Variance Documentation SEE PT NOTE Total Treament Time 43 min (8-127) Total Minutes 43 Total Units 3 PT Technical Record Comment PT NOTE S: Pt denied pain, states feeling better today O: LEYLA Goodwin cleared pt for PT session. Pt received in bed, son at bedside, agreeable to PT session. Vitals assessed and stable. Pt participated in interventions above, pt able to maintain static sitting for ~20 minutes and performed 2 STS and maintained static standing for ~8 minutes. Pt returned to bed, all needs in reach, no signs of distress. End vitals 112/51,73 bpm, 97%O2 sats on 6LO2. A; Pt required greater assistance today compared to initial eval to perform bed mobility tasks, requiring maxA, 2-person assist for all mobility. Attempted pre-gait training, pt able to weight shift but unable to effectively perform standing marching or side-stepping due to weakness P: Continue c PT POC; contine pre-gait training
--- NOTE | 2018-11-26 13:02 | CONS ---
DORIAN MOSS 11/26/18 1302: Date/Time of Note Date/Time of Note DATE: 11/26/18 TIME: 12:56 Assessment/Plan Assessment/Plan Assessment/Plan A 78 yo male with #Colon mass - locally advanced colon ca, path pending - poor performance status and multiple co-morbidities make patient a poor surgical candidate -path pending; once path back pt may benefit from single agent Xeloda -but again given his multiple medical issues, a palliative rectal stent may be an initial approach #Microcytic Anemia, Hgb 8.8 -2/2 GI bleed -IV ordered x 5 days #Sepsis/ Pneumonia -continue antibiotics #NSTEMI -Continue asa -Holding/Dilt/atenolol in the setting of hypotension -Cardiac cath on hold given hypotension Family at bed side - all Qs answered. Patient is seen in collaboration with Dr Hall. Result Diagram: 11/26/18 0430 11/26/18 0430 Results 24hrs Laboratory Tests Test 11/26/18 04:30 White Blood Count 10.9 H Red Blood Count 4.22 L Hemoglobin 8.8 L Hematocrit 35.0 L Mean Corpuscular Volume 82.9 Mean Corpuscular Hemoglobin 20.9 L Mean Corpuscular Hemoglobin Concent 25.1 L Red Cell Distribution Width 30.2 H Platelet Count 145 Mean Platelet Volume Immature Granulocytes % 1.700 H Neutrophils % 83.4 H Lymphocytes % 6.6 L Monocytes % 6.0 Eosinophils % 2.0 Basophils % 0.3 Nucleated Red Blood Cells % 0.5 H Immature Granulocytes # 0.190 H Neutrophils # 9.1 H Lymphocytes # 0.7 L Monocytes # 0.7 Eosinophils # 0.2 Basophils # 0.0 Nucleated Red Blood Cells # 0.1 H Sodium Level 144 Potassium Level 4.7 Chloride Level 107 Carbon Dioxide Level 27 Anion Gap 10 Blood Urea Nitrogen 71 H Creatinine 3.05 H Est Glomerular Filtrat Rate mL/min Glucose Level 120 Calcium Level 8.7 Total Bilirubin 0.0 L Direct Bilirubin 0.00 Indirect Bilirubin 0.0 Aspartate Amino Transf (AST/SGOT) 38 Alanine Aminotransferase (ALT/SGPT) 43 Alkaline Phosphatase 50 Total Protein 6.7 Albumin 3.5 Consultation Date/Type/Reason Admit Date/Time Nov 23, 2018 at 22:01 Initial Consult Date 11/24/18 Type of Consult oncology Reason for Consultation ANEMIA; COLON MASS Requesting Provider: NAYANA GARCIA 24 HR Interval Summary Free Text/Dictation - very alert - started soft diet- tolerating well - no new issues reported last night Constitutional: requiring IVF, requiring O2 Exam/Review of Systems Vital Signs Vitals Vital Signs Date Temp Pulse Resp B/P (MAP) Pulse Ox O2 O2 Flow FiO2 Time Delivery Rate 11/26/18 98.1 20 97/44 (61) 100 Nasal 12:00 Cannula 11/26/18 70 11:00 11/26/18 6.0 08:00 11/24/18 30 04:31 Intake and Output 11/25/18 11/25/18 11/26/18 1515:00 23:00 07:00 IntakeIntake Total 150 ml 656.90 ml 75.63 ml OutputOutput Total 40 ml 45 ml 30 ml BalanceBalance 110 ml 611.90 ml 45.63 ml Exam Constitutional: alert, well developed Psych: nl mood/affect Head: normocephalic Eyes: nl conjunctiva, EOMI, nl lids ENMT: nl external ears & nose Neck: non-tender Respiratory: diminished breath sounds (bilaterally) Cardiovascular: nl pulses, other (s1s2) Gastrointestinal: soft, non-tender Musculoskeletal: nl extremities to inspection Extremities: normal pulses Neurological: nl speech, other (alert/responsive) Skin: nl turgor Lymph: nontender Medications Medications Current Medications Ondansetron HCl (Zofran Inj) 4 mg Q6H PRN IV NAUSEA AND/OR VOMITING; Start 11/23/18 at 22:30 Acetaminophen (Tylenol Liquid) 650 mg Q6H PRN PO PAIN LEVEL 1-3 OR FEVER; Start 11/23/18 at 22:30 Acetaminophen (Tylenol Supp) [address] PAIN LEVEL 1-3 OR FEVER; Start 11/23/18 at 22:30 Lorazepam (Ativan) 0.5 mg Q4H PRN IV ANXIETY; Start 11/23/18 at 22:30 Atorvastatin Calcium (Lipitor) 20 mg HS PO Last administered on 11/24/18at 20:48; Admin Dose 20 MG; Start 11/24/18 at 21:00 Albuterol/ Ipratropium (Duoneb) 3 ml Q4H RESP THERAPY PRN HHN SHORTNESS OF BREATH; Start 11/24/18 at 09:00 Aripiprazole (Abilify) 5 mg DAILY PO Last administered on 11/26/18 11:45; Admin Dose 5 MG; Start 11/24/18 at 09:30 Digoxin (Digoxin) 0.25 mg DAILY@1300 PO Last administered on 11/24/18 15:25; Admin Dose 0.25 MG; Start 11/24/18 at 13:00 Escitalopram Oxalate (Lexapro) 20 mg DAILY PO Last administered on 11/26/18 11:45; Admin Dose 20 MG; Start 11/24/18 at 09:30 Furosemide (Lasix) 80 mg DAILY@0600 PO Last administered on 11/24/18 10:01; Admin Dose 80 MG; Start 11/24/18 at 09:30; Status Hold Hydralazine HCl (Apresoline) 50 mg Q6 PO Last administered on 11/24/18 18:41; Admin Dose 50 MG; Start 11/24/18 at 09:30 Loratadine (Claritin) 10 mg DAILY PO Last administered on 11/25/18 09:19; Admin Dose 10 MG; Start 11/24/18 at 10:00 Multivitamins Therapeutic (Theragran) 1 tab DAILY PO Last administered on 11/25/18 09:21; Admin Dose 1 TAB; Start 11/24/18 at 09:30 Potassium Chloride (Micro-K) 8 meq DAILY PO Last administered on 11/24/18 10:12; Admin Dose 8 MEQ; Start 11/24/18 at 10:00; Status Hold Tamsulosin HCl (Flomax) 0.4 mg HS PO Last administered on 11/24/18 21:12; Admin Dose 0.4 MG; Start 11/24/18 at 21:00 Calcium/Vitamin D (Oyster Shell/ Vit-D (500/200)) 1 tab DAILY PO Last administered on 11/25/18 09:19; Admin Dose 1 TAB; Start 11/24/18 at 09:30 Aspirin (Ecotrin) 325 mg DAILY PO Last administered on 11/26/18 11:45; Admin Dose 325 MG; Start 11/25/18 at 09:00 Metoprolol Tartrate (Lopressor) 5 mg Q4H PRN IV HR>110 Hold SBP<100; Start 11/24/18 at 11:00 Pantoprazole (Protonix Tab) 40 mg DAILY@06 PO Last administered on 11/26/18at 05:24; Admin Dose 40 MG; Start 11/25/18 at 06:00 Ferric Sodium Gluconate Complex 125 mg/Sodium Chloride 110 ml @ 110 mls/hr DAILY@1300 IVPB Last administered on 11/25/18at 16:28; Admin Dose 110 MLS/HR; Start 11/25/18 at 13:00; Stop 11/29/18 at 13:59 Atenolol (Tenormin) 25 mg DAILY PO ; Start 11/25/18 at 14:00 Diltiazem HCl (Cardizem Sr) 120 mg DAILY PO ; Start 11/25/18 at 14:00 Cefepime HCl 50 ml @ 100 mls/hr Q24H IVPB ; Start 11/26/18 at 12:00 IV Flush (NS 10 ml) 10 ml PRN PRN IV IV PROTOCOL; Start 11/25/18 at 16:00 Bumetanide (Bumex) 2 mg BID DIURETICS PO ; Start 11/26/18 at 18:00 TEO HALL 11/26/18 1454: Assessment/Plan Assessment/Plan Result Diagram: 11/26/18 0430 11/26/18 0430 24 HR Interval Summary Free Text/Dictation pt just transferred from ICU DORIAN MOSS Nov 26, 2018 13:02 TEO HALL Nov 26, 2018 14:54
--- NOTE | 2018-11-26 13:15 | NUR ---
Received pt from ICU , pt lethargic, sleepy but arousable. family at bed side . Call light within reach
[2018-11-26] MEDS: DIGOXIN 0.25 MG TAB PO SCH (13:41)
[2018-11-26] MEDS: SOD FERRIC GLUC COMPLX 125 MG in SOD CHLORIDE 0.9% 100 ML IVPB SCH (13:54)
[2018-11-26] MEDS: BALSAM PERU/CASTOR OIL 60 GM TUBE TOP SCH ×2 (13:55→22:20)
--- NOTE | 2018-11-26 14:24 | NUR ---
Pt remained stable with no acute changes A&O x 4. Scheduled for geophysical laboratory chief and was picked up this morning, but procedure got cancelled due to chemistry levels. Dr Ferro had a conversation with family to make them aware of this situation. Pt remained on NC at 4-6L . Soft diet remains an order Physical Therapy came and pt was able to stand up for a little. Transfer orders were placed. Pt went up tp [id number]. Report was given to LEYLA Lopez. Nurse met me and pt at bedside. Pt was placed on the tele monitor. Skin ointment was left in ICU, but Jessica came down during my break to pick it up. :) Family at bedside all day. Pt remained free from injury and all needs were met
--- NOTE | 2018-11-26 14:56 | CONS ---
Date/Time of Note Date/Time of Note DATE: 11/26/18 TIME: 14:54 Assessment/Plan Assessment/Plan Hospital Course unfortunate 78 yo with what appears to be locally advanced colon ca, path pending -he has very poor performance status and multiple co-morbidities -surgery has seen pt and feels he may not be an appropriate resection candidate -given patient's tenuous status that is a reasonable assessment -I explained to pt's family that we are working under the assumption that this is colon ca -given that he appears to have localized disease, once path back ideally surgical resection is optimal treatment if he every becomes stable for surgery -but again given his multiple medical issues, a palliative rectal stent may be an initial approach OF THURSDAY AFTERNOON PATH PENDING #ANEMIA due to colon mass, hgb stable keep >7 Result Diagram: 11/26/18 0430 11/26/18 0430 Results 24hrs Laboratory Tests Test 11/26/18 04:30 White Blood Count 10.9 H Red Blood Count 4.22 L Hemoglobin 8.8 L Hematocrit 35.0 L Mean Corpuscular Volume 82.9 Mean Corpuscular Hemoglobin 20.9 L Mean Corpuscular Hemoglobin Concent 25.1 L Red Cell Distribution Width 30.2 H Platelet Count 145 Mean Platelet Volume Immature Granulocytes % 1.700 H Neutrophils % 83.4 H Lymphocytes % 6.6 L Monocytes % 6.0 Eosinophils % 2.0 Basophils % 0.3 Nucleated Red Blood Cells % 0.5 H Immature Granulocytes # 0.190 H Neutrophils # 9.1 H Lymphocytes # 0.7 L Monocytes # 0.7 Eosinophils # 0.2 Basophils # 0.0 Nucleated Red Blood Cells # 0.1 H Sodium Level 144 Potassium Level 4.7 Chloride Level 107 Carbon Dioxide Level 27 Anion Gap 10 Blood Urea Nitrogen 71 H Creatinine 3.05 H Est Glomerular Filtrat Rate mL/min Glucose Level 120 Calcium Level 8.7 Total Bilirubin 0.0 L Direct Bilirubin 0.00 Indirect Bilirubin 0.0 Aspartate Amino Transf (AST/SGOT) 38 Alanine Aminotransferase (ALT/SGPT) 43 Alkaline Phosphatase 50 Total Protein 6.7 Albumin 3.5 Consultation Date/Type/Reason Admit Date/Time Nov 23, 2018 at 22:01 Initial Consult Date 11/25/18 Requesting Provider: NAYANA GARCIA 24 HR Interval Summary Free Text/Dictation pt just transferred from ICU Exam/Review of Systems Vital Signs Vitals Vital Signs Date Temp Pulse Resp B/P (MAP) Pulse Ox O2 O2 Flow FiO2 Time Delivery Rate 11/26/18 98.2 75 18 99/57 (71) 96 13:20 11/26/18 Nasal 12:00 Cannula 11/26/18 6.0 08:00 11/24/18 30 04:31 Intake and Output 11/25/18 11/25/18 11/26/18 1515:00 23:00 07:00 IntakeIntake Total 150 ml 656.90 ml 75.63 ml OutputOutput Total 40 ml 45 ml 30 ml BalanceBalance 110 ml 611.90 ml 45.63 ml Exam Constitutional: frail Psych: anxiety, confusion Head: normocephalic, atraumatic Musculoskeletal: range of motion Medications Medications Current Medications Ondansetron HCl (Zofran Inj) 4 mg Q6H PRN IV NAUSEA AND/OR VOMITING; Start 11/23/18 at 22:30 Acetaminophen (Tylenol Liquid) 650 mg Q6H PRN PO PAIN LEVEL 1-3 OR FEVER; Start 11/23/18 at 22:30 Acetaminophen (Tylenol Supp) 650 mg Q4H PRN [place] PAIN LEVEL 1-3 OR FEVER; Start 11/23/18 at 22:30 Lorazepam (Ativan) 0.5 mg Q4H PRN IV ANXIETY; Start 11/23/18 at 22:30 Atorvastatin Calcium (Lipitor) 20 mg HS PO Last administered on 11/24/18at 20:48; Admin Dose 20 MG; Start 11/24/18 at 21:00 Albuterol/ Ipratropium (Duoneb) 3 ml Q4H RESP THERAPY PRN HHN SHORTNESS OF BREATH; Start 11/24/18 at 09:00 Aripiprazole (Abilify) 5 mg DAILY PO Last administered on 11/26/18at 11:45; Admin Dose 5 MG; Start 11/24/18 at 09:30 Digoxin (Digoxin) 0.25 mg DAILY@1300 PO Last administered on 11/24/18at 15:25; Admin Dose 0.25 MG; Start 11/24/18 at 13:00 Escitalopram Oxalate (Lexapro) 20 mg DAILY PO Last administered on 11/26/18at 11:45; Admin Dose 20 MG; Start 11/24/18 at 09:30 Furosemide (Lasix) 80 mg DAILY@0600 PO Last administered on 11/24/18 10:01; Admin Dose 80 MG; Start 11/24/18 at 09:30; Status Hold Hydralazine HCl (Apresoline) 50 mg Q6 PO Last administered on 11/24/18at 18:41; Admin Dose 50 MG; Start 11/24/18 at 09:30 Loratadine (Claritin) 10 mg DAILY PO Last administered on 11/25/18 09:19; Admin Dose 10 MG; Start 11/24/18 at 10:00 Multivitamins Therapeutic (Theragran) 1 tab DAILY PO Last administered on 11/25/18 09:21; Admin Dose 1 TAB; Start 11/24/18 at 09:30 Potassium Chloride (Micro-K) 8 meq DAILY PO Last administered on 11/24/18 10:12; Admin Dose 8 MEQ; Start 11/24/18 at 10:00; Status Hold Tamsulosin HCl (Flomax) 0.4 mg HS PO Last administered on 11/24/18 21:12; Admin Dose 0.4 MG; Start 11/24/18 at 21:00 Calcium/Vitamin D (Oyster Shell/ Vit-D (500/200)) 1 tab DAILY PO Last administered on 11/25/18 09:19; Admin Dose 1 TAB; Start 11/24/18 at 09:30 Aspirin (Ecotrin) 325 mg DAILY PO Last administered on 11/26/18at 11:45; Admin Dose 325 MG; Start 11/25/18 at 09:00 Metoprolol Tartrate (Lopressor) 5 mg Q4H PRN IV HR>110 Hold SBP<100; Start 11/24/18 at 11:00 Pantoprazole (Protonix Tab) 40 mg DAILY@06 PO Last administered on 11/26/18 05:24; Admin Dose 40 MG; Start 11/25/18 at 06:00 Ferric Sodium Gluconate Complex 125 mg/Sodium Chloride 110 ml @ 110 mls/hr DAILY@1300 IVPB Last administered on 11/25/18 16:28; Admin Dose 110 MLS/HR; Start 11/25/18 at 13:00; Stop 11/29/18 at 13:59 Atenolol (Tenormin) 25 mg DAILY PO ; Start 11/25/18 at 14:00 Diltiazem HCl (Cardizem Sr) 120 mg DAILY PO ; Start 11/25/18 at 14:00 Cefepime HCl 50 ml @ 100 mls/hr Q24H IVPB ; Start 11/26/18 at 12:00 IV Flush (NS 10 ml) 10 ml PRN PRN IV IV PROTOCOL; Start 11/25/18 at 16:00 Bumetanide (Bumex) 2 mg BID DIURETICS PO ; Start 11/26/18 at 18:00 TEO LOZOYA Nov 26, 2018 14:56
[2018-11-26] MEDS: CEFEPIME 2GM/50 ML IVPB SCH (15:11)
--- NOTE | 2018-11-26 17:17 | CONS ---
Date/Time of Note Date/Time of Note DATE: 11/26/18 TIME: 17:17 Assessment/Plan Assessment/Plan Assessment/Plan 1. Oliguric acute on chronic renal failure due to Sepsis and Hemodynamics + obstructive uropathy 2. atrial fibrillation with RVR 3. acute hypoxemic and hypercapnic resp failure due to PNA 4. Sepsis 5. Positive troponin 6. BPH on flomax 7. Colon CA Plan: BUN/Cr 71/3.05, pt remains confused, Not making enough urine- did not respond to bumex gtt, will give bumex 1mg IV BID not a candidate for hemodialysis due to poor prognosis from Colon CA s/p Urology consult and [facility] placement discussed with family at [facility], if pt continues to deteriorate then consider palliative care consult will follow up Result Diagram: 11/26/18 0430 11/26/18 0430 Results 24hrs Laboratory Tests Test 11/26/18 04:30 White Blood Count 10.9 H Red Blood Count 4.22 L Hemoglobin 8.8 L Hematocrit 35.0 L Mean Corpuscular Volume 82.9 Mean Corpuscular Hemoglobin 20.9 L Mean Corpuscular Hemoglobin Concent 25.1 L Red Cell Distribution Width 30.2 H Platelet Count 145 Mean Platelet Volume Immature Granulocytes % 1.700 H Neutrophils % 83.4 H Lymphocytes % 6.6 L Monocytes % 6.0 Eosinophils % 2.0 Basophils % 0.3 Nucleated Red Blood Cells % 0.5 H Immature Granulocytes # 0.190 H Neutrophils # 9.1 H Lymphocytes # 0.7 L Monocytes # 0.7 Eosinophils # 0.2 Basophils # 0.0 Nucleated Red Blood Cells # 0.1 H Sodium Level 144 Potassium Level 4.7 Chloride Level 107 Carbon Dioxide Level 27 Anion Gap 10 Blood Urea Nitrogen 71 H Creatinine 3.05 H Est Glomerular Filtrat Rate mL/min Glucose Level 120 Calcium Level 8.7 Total Bilirubin 0.0 L Direct Bilirubin 0.00 Indirect Bilirubin 0.0 Aspartate Amino Transf (AST/SGOT) 38 Alanine Aminotransferase (ALT/SGPT) 43 Alkaline Phosphatase 50 Total Protein 6.7 Albumin 3.5 Consultation Date/Type/Reason Admit Date/Time Nov 23, 2018 at 22:01 Initial Consult Date 11/24/18 Type of Consult NEPHROLOGY Requesting Provider: NAYANA GARCIA 24 HR Interval Summary Free Text/Dictation BUN/Cr 71/3.05, pt remains confused, Not making enough urine Exam/Review of Systems Vital Signs Vitals Vital Signs Date Temp Pulse Resp B/P (MAP) Pulse Ox O2 O2 Flow FiO2 Time Delivery Rate 11/26/18 68 16:25 11/26/18 5.0 16:20 11/26/18 97.8 18 111/56 96 Nasal 15:29 (74) Cannula 11/24/18 30 04:31 Intake and Output 11/25/18 11/25/18 11/26/18 1515:00 23:00 07:00 IntakeIntake Total 150 ml 656.90 ml 75.63 ml OutputOutput Total 40 ml 45 ml 30 ml BalanceBalance 110 ml 611.90 ml 45.63 ml Exam Constitutional: alert Respiratory: congested cough, crackles/rales, diminished breath sounds Cardiovascular: regular rate and rhythm, nl pulses Gastrointestinal: soft, non-tender Musculoskeletal: nl extremities to inspection, muscle weakness, swelling Neurological: other (Non focal ) Skin: nl turgor Lymph: nl lymph nodes Medications Medications Current Medications Ondansetron HCl (Zofran Inj) 4 mg Q6H PRN IV NAUSEA AND/OR VOMITING; Start 11/23/18 at 22:30 Acetaminophen (Tylenol Liquid) 650 mg Q6H PRN PO PAIN LEVEL 1-3 OR FEVER; Start 11/23/18 at 22:30 Acetaminophen (Tylenol Supp) 650 mg Q4H PRN [place] PAIN LEVEL 1-3 OR FEVER; Start 11/23/18 at 22:30 Lorazepam (Ativan) 0.5 mg Q4H PRN IV ANXIETY; Start 11/23/18 at 22:30 Atorvastatin Calcium (Lipitor) 20 mg HS PO Last administered on 11/24/18at 20:48; Admin Dose 20 MG; Start 11/24/18 at 21:00 Albuterol/ Ipratropium (Duoneb) 3 ml Q4H RESP THERAPY PRN HHN SHORTNESS OF BREATH; Start 11/24/18 at 09:00 Aripiprazole (Abilify) 5 mg DAILY PO Last administered on 11/26/18at 11:45; Admin Dose 5 MG; Start 11/24/18 at 09:30 Digoxin (Digoxin) 0.25 mg DAILY@1300 PO Last administered on 11/26/18at 13:41; Admin Dose 0.25 MG; Start 11/24/18 at 13:00 Escitalopram Oxalate (Lexapro) 20 mg DAILY PO Last administered on 11/26/18 11:45; Admin Dose 20 MG; Start 11/24/18 at 09:30 Furosemide (Lasix) 80 mg DAILY@0600 PO Last administered on 11/24/18 10:01; Admin Dose 80 MG; Start 11/24/18 at 09:30; Status Hold Hydralazine HCl (Apresoline) 50 mg Q6 PO Last administered on 11/24/18 18:41; Admin Dose 50 MG; Start 11/24/18 at 09:30 Loratadine (Claritin) 10 mg DAILY PO Last administered on 11/25/18 09:19; Admin Dose 10 MG; Start 11/24/18 at 10:00 Multivitamins Therapeutic (Theragran) 1 tab DAILY PO Last administered on 11/25/18 09:21; Admin Dose 1 TAB; Start 11/24/18 at 09:30 Potassium Chloride (Micro-K) 8 meq DAILY PO Last administered on 11/24/18 10:12; Admin Dose 8 MEQ; Start 11/24/18 at 10:00; Status Hold Tamsulosin HCl (Flomax) 0.4 mg HS PO Last administered on 11/24/18 21:12; Admin Dose 0.4 MG; Start 11/24/18 at 21:00 Calcium/Vitamin D (Oyster Shell/ Vit-D (500/200)) 1 tab DAILY PO Last administered on 11/25/18 09:19; Admin Dose 1 TAB; Start 11/24/18 at 09:30 Aspirin (Ecotrin) 325 mg DAILY PO Last administered on 11/26/18 11:45; Admin Dose 325 MG; Start 11/25/18 at 09:00 Metoprolol Tartrate (Lopressor) 5 mg Q4H PRN IV HR>110 Hold SBP<100; Start 11/24/18 at 11:00 Pantoprazole (Protonix Tab) 40 mg DAILY@06 PO Last administered on 11/26/18 05:24; Admin Dose 40 MG; Start 11/25/18 at 06:00 Ferric Sodium Gluconate Complex 125 mg/Sodium Chloride 110 ml @ 110 mls/hr DAILY@1300 IVPB Last administered on 1/4/19at 13:54; Admin Dose 110 MLS/HR; Start 11/25/18 at 13:00; Stop 11/29/18 at 13:59 Atenolol (Tenormin) 25 mg DAILY PO ; Start 11/25/18 at 14:00 Diltiazem HCl (Cardizem Sr) 120 mg DAILY PO ; Start 11/25/18 at 14:00 Cefepime HCl 50 ml @ 100 mls/hr Q24H IVPB Last administered on 11/26/18at 15:11; Admin Dose 100 MLS/HR; Start 11/26/18 at 12:00 IV Flush (NS 10 ml) 10 ml PRN PRN IV IV PROTOCOL; Start 11/25/18 at 16:00 Bumetanide (Bumex) 2 mg BID DIURETICS PO ; Start 11/26/18 at 18:00 RENAN HERNANDEZ MD Nov 26, 2018 17:17
--- NOTE | 2018-11-26 17:30 | CONS ---
Date/Time of Note Date/Time of Note DATE: 11/26/18 TIME: 17:25 Assessment/Plan Assessment/Plan Hospital Course IMPRESSION: 1. Non-ST elevation myocardial infarction, currently down trending cardiac enzymes likely a type 2 demand infarct in the setting of fevers, hypercarbic respiratory failure.-downtrended cardiac enzymes. NO cp. Echo this admit 11/24 with NL EF 55% 2. Abnormal electrocardiogram. 3. Right bundle branch block. 4. Colonic mass. 5. Anemia. 6. Renal failure-worsening 7. Leukocytosis. 8. Coagulopathy. 9. Sepsis. 10. Atrial fibrillation-now in SR Recc: -Now back on tele -Continue asa -Dilt/atenolol held in the setting of borderline BP -Continue broad spectrum abx's and f/u cx data -ongoing discussion about surgical intervention upon patient with treating surgeon and family -C cancelled today due to worsening renal failure Result Diagram: 11/26/18 0430 11/26/18 0430 Results 24hrs Laboratory Tests Test 11/26/18 04:30 White Blood Count 10.9 H Red Blood Count 4.22 L Hemoglobin 8.8 L Hematocrit 35.0 L Mean Corpuscular Volume 82.9 Mean Corpuscular Hemoglobin 20.9 L Mean Corpuscular Hemoglobin Concent 25.1 L Red Cell Distribution Width 30.2 H Platelet Count 145 Mean Platelet Volume Immature Granulocytes % 1.700 H Neutrophils % 83.4 H Lymphocytes % 6.6 L Monocytes % 6.0 Eosinophils % 2.0 Basophils % 0.3 Nucleated Red Blood Cells % 0.5 H Immature Granulocytes # 0.190 H Neutrophils # 9.1 H Lymphocytes # 0.7 L Monocytes # 0.7 Eosinophils # 0.2 Basophils # 0.0 Nucleated Red Blood Cells # 0.1 H Sodium Level 144 Potassium Level 4.7 Chloride Level 107 Carbon Dioxide Level 27 Anion Gap 10 Blood Urea Nitrogen 71 H Creatinine 3.05 H Est Glomerular Filtrat Rate mL/min Glucose Level 120 Calcium Level 8.7 Total Bilirubin 0.0 L Direct Bilirubin 0.00 Indirect Bilirubin 0.0 Aspartate Amino Transf (AST/SGOT) 38 Alanine Aminotransferase (ALT/SGPT) 43 Alkaline Phosphatase 50 Total Protein 6.7 Albumin 3.5 Consultation Date/Type/Reason Admit Date/Time Nov 23, 2018 at 22:01 Initial Consult Date 11/24/18 Type of Consult cardiology Reason for Consultation Nstemi Requesting Provider: NAYANA GARCIA Exam/Review of Systems Vital Signs Vitals Vital Signs Date Temp Pulse Resp B/P (MAP) Pulse Ox O2 O2 Flow FiO2 Time Delivery Rate 11/26/18 68 16:25 11/26/18 5.0 16:20 11/26/18 97.8 18 111/56 96 Nasal 15:29 (74) Cannula 11/24/18 30 04:31 Intake and Output 11/25/18 11/25/18 11/26/18 1515:00 23:00 07:00 IntakeIntake Total 150 ml 656.90 ml 75.63 ml OutputOutput Total 40 ml 45 ml 30 ml BalanceBalance 110 ml 611.90 ml 45.63 ml Exam Review of Systems: CONSTITUTIONAL: No fevers, chills. PULMONARY: No sob CARDIOVASCULAR: No chest pain/palpitations GASTROINTESTINAL: No nausea/vomiting. GENITOURINARY: No hematuria/dysuria. MUSCULOSKELETAL: No myagias/arthalgias. PSYCHIATRIC: The patient denies depression. NEUROLOGIC: No weakness Constitutional: alert Psych: no complaints Head: normocephalic ENMT: mucosa pink and moist Neck: supple, jvd (9 cm water) Respiratory: diminished breath sounds Cardiovascular: regular rate and rhythm Gastrointestinal: soft, non-tender Musculoskeletal: muscle tone Extremities: edema (none) Neurological: other (No focal deficits) Medications Medications Current Medications Ondansetron HCl (Zofran Inj) 4 mg Q6H PRN IV NAUSEA AND/OR VOMITING; Start 11/23/18 at 22:30 Acetaminophen (Tylenol Liquid) 650 mg Q6H PRN PO PAIN LEVEL 1-3 OR FEVER; Start 11/23/18 at 22:30 Acetaminophen (Tylenol Supp) 650 mg Q4H PRN [place] PAIN LEVEL 1-3 OR FEVER; Start 11/23/18 at 22:30 Lorazepam (Ativan) 0.5 mg Q4H PRN IV ANXIETY; Start 11/23/18 at 22:30 Atorvastatin Calcium (Lipitor) 20 mg HS PO Last administered on 11/24/18at 20:48; Admin Dose 20 MG; Start 11/24/18 at 21:00 Albuterol/ Ipratropium (Duoneb) 3 ml Q4H RESP THERAPY PRN HHN SHORTNESS OF BREATH; Start 11/24/18 at 09:00 Aripiprazole (Abilify) 5 mg DAILY PO Last administered on 11/26/18 11:45; Admin Dose 5 MG; Start 11/24/18 at 09:30 Digoxin (Digoxin) 0.25 mg DAILY@1300 PO Last administered on 11/26/18 13:41; Admin Dose 0.25 MG; Start 11/24/18 at 13:00 Escitalopram Oxalate (Lexapro) 20 mg DAILY PO Last administered on 11/26/18 11:45; Admin Dose 20 MG; Start 11/24/18 at 09:30 Furosemide (Lasix) 80 mg DAILY@0600 PO Last administered on 11/24/18 10:01; Admin Dose 80 MG; Start 11/24/18 at 09:30; Status Hold Hydralazine HCl (Apresoline) 50 mg Q6 PO Last administered on 11/24/18 18:41; Admin Dose 50 MG; Start 11/24/18 at 09:30 Loratadine (Claritin) 10 mg DAILY PO Last administered on 11/25/18 09:19; Admin Dose 10 MG; Start 11/24/18 at 10:00 Multivitamins Therapeutic (Theragran) 1 tab DAILY PO Last administered on 11/25/18 09:21; Admin Dose 1 TAB; Start 11/24/18 at 09:30 Potassium Chloride (Micro-K) 8 meq DAILY PO Last administered on 11/24/18 10:12; Admin Dose 8 MEQ; Start 11/24/18 at 10:00; Status Hold Tamsulosin HCl (Flomax) 0.4 mg HS PO Last administered on 11/24/18 21:12; Admin Dose 0.4 MG; Start 11/24/18 at 21:00 Calcium/Vitamin D (Oyster Shell/ Vit-D (500/200)) 1 tab DAILY PO Last administered on 11/25/18 09:19; Admin Dose 1 TAB; Start 11/24/18 at 09:30 Aspirin (Ecotrin) 325 mg DAILY PO Last administered on 11/26/18 11:45; Admin Dose 325 MG; Start 11/25/18 at 09:00 Metoprolol Tartrate (Lopressor) 5 mg Q4H PRN IV HR>110 Hold SBP<100; Start 11/24/18 at 11:00 Pantoprazole (Protonix Tab) 40 mg DAILY@06 PO Last administered on 11/26/18at 0 5:24; Admin Dose 40 MG; Start 11/25/18 at 06:00 Ferric Sodium Gluconate Complex 125 mg/Sodium Chloride 110 ml @ 110 mls/hr DAILY@1300 IVPB Last administered on 11/26/18at 13:54; Admin Dose 110 MLS/HR; Start 11/25/18 at 13:00; Stop 11/29/18 at 13:59 Atenolol (Tenormin) 25 mg DAILY PO ; Start 11/25/18 at 14:00 Diltiazem HCl (Cardizem Sr) 120 mg DAILY PO ; Start 11/25/18 at 14:00 Cefepime HCl 50 ml @ 100 mls/hr Q24H IVPB Last administered on 11/26/18at 15:11; Admin Dose 100 MLS/HR; Start 11/26/18 at 12:00 IV Flush (NS 10 ml) 10 ml PRN PRN IV IV PROTOCOL; Start 11/25/18 at 16:00 Bumetanide (Bumex) 2 mg BID DIURETICS PO ; Start 11/26/18 at 18:00 TWAN ESTEVEZ Nov 26, 2018 17:30
[2018-11-26] MEDS: BUMETANIDE 1 MG TAB PO SCH (17:35)
--- NOTE | 2018-11-26 18:00 | CONS ---
Date/Time of Note Date/Time of Note DATE: 11/26/18 TIME: 17:56 Consult Date/Type/Reason Admit Date/Time Nov 23, 2018 at 22:01 Initial Consult Date 11/24/18 Type of Consultation: Urology Reason for Consultation Phimosis, difficulty inserting a Ballard catheter, low urinary output Requesting Provider: NAYANA GARCIA Subjective Patient is confused, family at bedside. They say when he wakes up and after a while he would be much less confused. He denies any pain except in his back. Objective Vital Signs Date Temp Pulse Resp B/P (MAP) Pulse Ox O2 O2 Flow FiO2 Time Delivery Rate 11/26/18 68 16:25 11/26/18 5.0 16:20 11/26/18 97.8 18 111/56 96 Nasal 15:29 (74) Cannula 11/24/18 30 04:31 Intake and Output 11/25/18 11/25/18 11/26/18 1515:00 23:00 07:00 IntakeIntake Total 150 ml 656.90 ml 75.63 ml OutputOutput Total 40 ml 45 ml 30 ml BalanceBalance 110 ml 611.90 ml 45.63 ml Exam Ballard catheter is draining clear urine but the urine output is very low and his creatinine is going up Results/Medications Result Diagram: 11/26/18 0430 11/26/18 0430 Results 24 hrs Laboratory Tests Test 11/26/18 04:30 White Blood Count 10.9 H Red Blood Count 4.22 L Hemoglobin 8.8 L Hematocrit 35.0 L Mean Corpuscular Volume 82.9 Mean Corpuscular Hemoglobin 20.9 L Mean Corpuscular Hemoglobin Concent 25.1 L Red Cell Distribution Width 30.2 H Platelet Count 145 Mean Platelet Volume Immature Granulocytes % 1.700 H Neutrophils % 83.4 H Lymphocytes % 6.6 L Monocytes % 6.0 Eosinophils % 2.0 Basophils % 0.3 Nucleated Red Blood Cells % 0.5 H Immature Granulocytes # 0.190 H Neutrophils # 9.1 H Lymphocytes # 0.7 L Monocytes # 0.7 Eosinophils # 0.2 Basophils # 0.0 Nucleated Red Blood Cells # 0.1 H Sodium Level 144 Potassium Level 4.7 Chloride Level 107 Carbon Dioxide Level 27 Anion Gap 10 Blood Urea Nitrogen 71 H Creatinine 3.05 H Est Glomerular Filtrat Rate mL/min Glucose Level 120 Calcium Level 8.7 Total Bilirubin 0.0 L Direct Bilirubin 0.00 Indirect Bilirubin 0.0 Aspartate Amino Transf (AST/SGOT) 38 Alanine Aminotransferase (ALT/SGPT) 43 Alkaline Phosphatase 50 Total Protein 6.7 Albumin 3.5 Medications Current Medications Ondansetron HCl (Zofran Inj) 4 mg Q6H PRN IV NAUSEA AND/OR VOMITING; Start 11/23/18 at 22:30 Acetaminophen (Tylenol Liquid) 650 mg Q6H PRN PO PAIN LEVEL 1-3 OR FEVER; Start 11/23/18 at 22:30 Acetaminophen (Tylenol Supp) 650 mg Q4H PRN [place] PAIN LEVEL 1-3 OR FEVER; Start 11/23/18 at 22:30 Lorazepam (Ativan) 0.5 mg Q4H PRN IV ANXIETY; Start 11/23/18 at 22:30 Atorvastatin Calcium (Lipitor) 20 mg HS PO Last administered on 11/24/18at 20:48; Admin Dose 20 MG; Start 11/24/18 at 21:00 Albuterol/ Ipratropium (Duoneb) 3 ml Q4H RESP THERAPY PRN HHN SHORTNESS OF BREATH; Start 11/24/18 at 09:00 Aripiprazole (Abilify) 5 mg DAILY PO Last administered on 11/26/18 11:45; Admin Dose 5 MG; Start 11/24/18 at 09:30 Digoxin (Digoxin) 0.25 mg DAILY@1300 PO Last administered on 11/26/18 13:41; Admin Dose 0.25 MG; Start 11/24/18 at 13:00 Escitalopram Oxalate (Lexapro) 20 mg DAILY PO Last administered on 11/26/18 11:45; Admin Dose 20 MG; Start 11/24/18 at 09:30 Furosemide (Lasix) 80 mg DAILY@0600 PO Last administered on 11/24/18 10:01; Admin Dose 80 MG; Start 11/24/18 at 09:30; Status Hold Loratadine (Claritin) 10 mg DAILY PO Last administered on 11/25/18 09:19; Admin Dose 10 MG; Start 11/24/18 at 10:00 Multivitamins Therapeutic (Theragran) 1 tab DAILY PO Last administered on 11/25/18 09:21; Admin Dose 1 TAB; Start 11/24/18 at 09:30 Potassium Chloride (Micro-K) 8 meq DAILY PO Last administered on 11/24/18at 10:12; Admin Dose 8 MEQ; Start 11/24/18 at 10:00; Status Hold Tamsulosin HCl (Flomax) 0.4 mg HS PO Last administered on 11/24/18 21:12; Admin Dose 0.4 MG; Start 11/24/18 at 21:00 Calcium/Vitamin D (Oyster Shell/ Vit-D (500/200)) 1 tab DAILY PO Last administered on 11/25/18at 09:19; Admin Dose 1 TAB; Start 11/24/18 at 09:30 Aspirin (Ecotrin) 325 mg DAILY PO Last administered on 11/26/18 11:45; Admin Dose 325 MG; Start 11/25/18 at 09:00 Metoprolol Tartrate (Lopressor) 5 mg Q4H PRN IV HR>110 Hold SBP<100; Start 11/24/18 at 11:00 Pantoprazole (Protonix Tab) 40 mg DAILY@06 PO Last administered on 11/26/18at 05:24; Admin Dose 40 MG; Start 11/25/18 at 06:00 Ferric Sodium Gluconate Complex 125 mg/Sodium Chloride 110 ml @ 110 mls/hr DA CRISTI@1300 IVPB Last administered on 11/26/18at 13:54; Admin Dose 110 MLS/HR; Start 11/25/18 at 13:00; Stop 11/29/18 at 13:59 Atenolol (Tenormin) 25 mg DAILY PO ; Start 11/25/18 at 14:00 Diltiazem HCl (Cardizem Sr) 120 mg DAILY PO ; Start 11/25/18 at 14:00; Status Hold Cefepime HCl 50 ml @ 100 mls/hr Q24H IVPB Last administered on 11/26/18at 15:11; Admin Dose 100 MLS/HR; Start 11/26/18 at 12:00 IV Flush (NS 10 ml) 10 ml PRN PRN IV IV PROTOCOL; Start 11/25/18 at 16:00 Bumetanide (Bumex) 2 mg BID DIURETICS PO Last administered on 11/26/18at 17:35; Admin Dose 2 MG; Start 1/4/19 at 18:00 Hydralazine HCl (Apresoline) 25 mg Q8 PO ; Start 11/26/18 at 22:00 Assessment/Plan Chief Complaint/Hosp Course 78-year-old male was admitted because of lethargy and difficulty breathing. Troponins were high. Attempts by the nursing staff to insert a Ballard catheter were not successful. He does have phimosis. I did insert a 16 English Ballard catheter for him and that is draining well. 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 His urine output has been very low. Urologically I will keep the Ballard catheter as long as it is needed to monitor his output. MARILEE CHAVEZ MD Nov 26, 2018 18:00
[2018-11-26] MEDS: ATORVASTATIN 20 MG TAB PO SCH (20:41)
[2018-11-26] MEDS: TAMSULOSIN (SR) 0.4 MG CAP PO SCH (20:41)
[2018-11-27] VITALS (13 sets, daily range): BP systolic 101–131; BP diastolic 52–61; PULSE 30–84; RESP 16–18
[2018-11-27] MEDS: PANTOPRAZOLE (EC) 40 MG TAB PO SCH (05:19)
[2018-11-27] MEDS: BUMETANIDE 1 MG TAB PO SCH ×2 (05:19→18:48)
--- NOTE | 2018-11-27 06:30 | NUR ---
PT REMAINS CONFUSED. DOES TAKES OFF HIS NASAL CANNULA OCCASIONALLY. O2 SAT ON 80'S WHEN OFF O2. AIRLOSS MATTRESS NOT YET DELIVERED AT THIS TIME. VS REMAINS STABLE. ALL NEEDS ATTENDED. WILL ENDORSE TO AM SHIFT FOR CONTINUITY OF CARE
[2018-11-27] MEDS: ATENOLOL 50 MG TAB PO SCH (08:17)
[2018-11-27] MEDS: MULTIVITAMINS THERAPEUTIC TAB PO SCH (09:01)
[2018-11-27] MEDS: ASPIRIN (EC) 325 MG TAB PO SCH (09:01)
[2018-11-27] MEDS: ARIPIPRAZOLE 5 MG TAB PO SCH (09:01)
[2018-11-27] MEDS: ESCITALOPRAM 10 MG TAB PO SCH (09:01)
[2018-11-27] MEDS: LORATADINE 10 MG TAB PO SCH (09:01)
[2018-11-27] MEDS: CALCIUM/VITAMIN D (500/200) TAB PO SCH (09:01)
[2018-11-27] MEDS: BALSAM PERU/CASTOR OIL 60 GM TUBE TOP SCH ×2 (09:24→21:48)
--- NOTE | 2018-11-27 09:48 | CONS ---
Date/Time of Note Date/Time of Note DATE: 11/27/18 TIME: 09:44 Consult Date/Type/Reason Admit Date/Time Nov 23, 2018 at 22:01 Initial Consult Date 11/24/18 Type of Consultation: Urology Reason for Consultation Difficulty inserting a Ballard catheter, phimosis and oliguria Requesting Provider: NAYANA GARCIA Subjective Patient is awake, confused most of the time and very weak Objective Vital Signs Date Temp Pulse Resp B/P (MAP) Pulse Ox O2 O2 Flow FiO2 Time Delivery Rate 11/27/18 Nasal 4.0 09:08 Cannula 11/27/18 79 08:00 11/27/18 98.2 16 101/52 94 07:41 (68) 11/24/18 30 04:31 Intake and Output 11/26/18 11/26/18 11/27/18 1515:00 23:00 07:00 IntakeIntake Total 240 ml 360 ml 200 ml OutputOutput Total 300 ml 550 ml BalanceBalance 240 ml 60 ml -350 ml Exam The Ballard catheter is draining clear urine. His urine output has improved but the creatinine still going up Results/Medications Result Diagram: 11/27/18 0459 11/27/18 0459 Results 24 hrs Laboratory Tests Test 11/27/18 04:59 White Blood Count 8.3 # Red Blood Count 4.10 L Hemoglobin 8.7 L Hematocrit 33.8 L Mean Corpuscular Volume 82.4 Mean Corpuscular Hemoglobin 21.2 L Mean Corpuscular Hemoglobin Concent 25.7 L Red Cell Distribution Width 30.5 H Platelet Count 139 L Mean Platelet Volume Immature Granulocytes % 1.100 H Neutrophils % 80.1 H Lymphocytes % 8.7 L Monocytes % 6.4 Eosinophils % 3.5 Basophils % 0.2 Nucleated Red Blood Cells % 0.4 H Immature Granulocytes # 0.090 H Neutrophils # 6.6 Lymphocytes # 0.7 L Monocytes # 0.5 Eosinophils # 0.3 Basophils # 0.0 Nucleated Red Blood Cells # 0.0 Sodium Level 142 Potassium Level 4.3 Chloride Level 106 Carbon Dioxide Level 25 Anion Gap 11 Blood Urea Nitrogen 81 H Creatinine 3.47 H Est Glomerular Filtrat Rate mL/min Glucose Level 91 Calcium Level 8.3 L Medications Current Medications Ondansetron HCl (Zofran Inj) 4 mg Q6H PRN IV NAUSEA AND/OR VOMITING; Start 11/23 at 22:30 Acetaminophen (Tylenol Liquid) 650 mg Q6H PRN PO PAIN LEVEL 1-3 OR FEVER; Start 11/23/18 at 22:30 Acetaminophen (Tylenol Supp) 650 mg Q4H PRN [place] PAIN LEVEL 1-3 OR FEVER; Start 11/23/18 at 22:30 Lorazepam (Ativan) 0.5 mg Q4H PRN IV ANXIETY; Start 11/23/18 at 22:30 Atorvastatin Calcium (Lipitor) 20 mg HS PO Last administered on 11/26/18 20:41; Admin Dose 20 MG; Start 11/24/18 at 21:00 Albuterol/ Ipratropium (Duoneb) 3 ml Q4H RESP THERAPY PRN HHN SHORTNESS OF BREATH; Start 11/24/18 at 09:00 Aripiprazole (Abilify) 5 mg DAILY PO Last administered on 11/27/18 09:01; Admin Dose 5 MG; Start 11/24/18 at 09:30 Digoxin (Digoxin) 0.25 mg DAILY@1300 PO Last administered on 11/26/18 13:41; A dmin Dose 0.25 MG; Start 11/24/18 at 13:00 Escitalopram Oxalate (Lexapro) 20 mg DAILY PO Last administered on 11/27/18 09:01; Admin Dose 20 MG; Start 11/24/18 at 09:30 Furosemide (Lasix) 80 mg DAILY@0600 PO Last administered on 11/24/18 10:01; Admin Dose 80 MG; Start 11/24/18 at 09:30; Status Hold Loratadine (Claritin) 10 mg DAILY PO Last administered on 11/27/18 09:01; Admin Dose 10 MG; Start 11/24/18 at 10:00 Multivitamins Therapeutic (Theragran) 1 tab DAILY PO Last administered on 11/27/18 09:01; Admin Dose 1 TAB; Start 11/24/18 at 09:30 Potassium Chloride (Micro-K) 8 meq DAILY PO Last administered on 11/24/18 10:12; Admin Dose 8 MEQ; Start 11/24/18 at 10:00; Status Hold Tamsulosin HCl (Flomax) 0.4 mg HS PO Last administered on 1/4/19at 20:41; Admin Dose 0.4 MG; Start 11/24/18 at 21:00 Calcium/Vitamin D (Oyster Shell/ Vit-D (500/200)) 1 tab DAILY PO Last administered on 11/27/18at 09:01; Admin Dose 1 TAB; Start 11/24/18 at 09:30 Aspirin (Ecotrin) 325 mg DAILY PO Last administered on 11/27/18at 09:01; Admin Dose 325 MG; Start 11/25/18 at 09:00 Metoprolol Tartrate (Lopressor) 5 mg Q4H PRN IV HR>110 Hold SBP<100; Start 11/24/18 at 11:00 Pantoprazole (Protonix Tab) 40 mg DAILY@06 PO Last administered on 11/27/18at 05:19; Admin Dose 40 MG; Start 11/25/18 at 06:00 Ferric Sodium Gluconate Complex 125 mg/Sodium Chloride 110 ml @ 110 mls/hr DAILY@1300 IVPB Last administered on 11/26/18at 13:54; Admin Dose 110 MLS/HR; Start 11/25/18 at 13:00; Stop 11/29/18 at 13:59 Atenolol (Tenormin) 25 mg DAILY PO ; Start 11/25/18 at 14:00 Diltiazem HCl (Cardizem Sr) 120 mg DAILY PO ; Start 11/25/18 at 14:00; Status Hold Cefepime HCl 50 ml @ 100 mls/hr Q24H IVPB Last administered on 11/26/18at 15:11; Admin Dose 100 MLS/HR; Start 11/26/18 at 12:00 IV Flush (NS 10 ml) 10 ml PRN PRN IV IV PROTOCOL; Start 11/25/18 at 16:00 Bumetanide (Bumex) 2 mg BID DIURETICS PO Last administered on 11/27/18at 05:19; Admin Dose 2 MG; Start 11/26/18 at 18:00 Hydralazine HCl (Apresoline) 25 mg Q8 PO ; Start 11/26/18 at 22:00 Assessment/Plan Chief Complaint/Hosp Course 78-year-old male was admitted because of lethargy and difficulty breathing. Troponins were high. Attempts by the nursing staff to insert a Ballard catheter were not successful. He does have phimosis. I did insert a 16 Serbian Ballard catheter for him and that is draining well. 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 His urine output has been very low and has improved today. His creatinine did go up to 3.47. Urologically I will keep the Ballard catheter as long as it is needed to monitor his output. MARILEE CHAVEZ MD Nov 27, 2018 09:48
--- NOTE | 2018-11-27 10:51 | PN ---
Date/Time of Note Date/Time of Note DATE: 11/27/18 TIME: 10:50 Assessment/Plan VTE Prophylaxis Risk score (from Ns)>0 risk: 13 SCD applied (from Ns): Yes Pharmacological prophylaxis: other Lines/Catheters IV Catheter Type (from [facility]): PICC Line Central line still needed: Yes Urinary Cath still in place: Yes Reason Cath still needed: urinary retention Assessment/Plan Hospital Course S: Patient out of the ICU now. Urine output overall improved with Bumex in the last 24 hours, however creatinine levels more elevated today. O: VS - see below PE: Const: Lying in bed, lethargic, no acute distress presently, family at the bedside Head: Atraumatic, normocephalic Eyes: Normal Conjunctiva, PERRLA, EOMI, normal sclera, no nystagmus ENT: Normal External Ears, Nose and Mouth, moist mucus membranes. Neck: Supple Resp: Some increased work of breathing, still some bilateral rhonchi and wheezes decreased breath sounds in the bases Cardio: Regular rate and rhythm, no murmurs, S1 S2 present Abd: Soft, non tender x 4, slight distention. Normal bowel sounds, no guarding or rebound Ext: No cyanosis, or edema Neur: No focal deficits 2D echo November 24, 2018: Conclusions Normal left ventricular systolic function. Normal left ventricular cavity size. Sigmoid septum. Ejection fraction is visually estimated at 55 %. Normal right ventricular systolic function. Moderate enlargement of right ventricle. There is mild enlargement of left atrium. There is mild enlargement of right atrium. Mild mitral leaflet calcification. Mild mitral annular calcification. Trace mitral regurgitation. Normal appearance of the tricuspid valve. There is trace tricuspid regurgitation. Assessment/Plan: 78-year-old male recently diagnosed with new colon mass, who presents with: 1. Hypoxic and hypercapnic respiratory failure: Appears to be slowly improving, now down to 4 L oxygen so still requiring O2 supplementation. Symptoms secondary to pneumonia and CHF/mild fluid overload. No fevers the last 3 days. Earlier this admission patient required BiPAP. -Continue Supplemental oxygen, BiPAP as needed, bronchodilators -continue IV antibiotic, follow up final culture results, Tylenol as needed fever -Follow up pulmonary recommendations -DuoNeb's as needed 2. Sepsis: As evidenced by fever and tachycardia: Secondary to pneumonia -see #1. Slowly improving now as patient is been afebrile for the last 3 days -Again, continue broad-spectrum IV antibiotic -Follow-up final respiratory and blood culture results 3. Cardiac- elevated troponins: Likely secondary to #1 and #2-Status post treatment dose Lovenox in ER. Elevated troponins, per cardiology, likely a type 2 demand infarct in the setting of fevers, hypercarbic respiratory failure -but currently down trending cardiac enzymes -Continue to trend troponin -Follow-up cardiology consult recommendations -no left heart cath at this time secondary to renal insufficiency 4. Sigmoid mass: Status post biopsy during recent hospitalization. Final pathology report pending -although there is strong suspicion of colon cancer given elevated tumor markers. Surgery team on the case. -Follow-up final results of biopsy performed a few days ago -still pending in the computer records -Follow-up surgery, hematology oncology, GI team recommendations -likely need to determine the exact type and stage of cancer this likely is to determine the best treatment options: i.e. surgery and chemotherapy/radiation coordination. 5. Atrial fibrillation with RVR -resolved now -Continue to monitor, patient on beta-esther and digoxin, follow-up cardiology recommendations 6. Renal insufficiency: Oliguric acute on chronic renal failure due to Sepsis and Hemodynamics + obstructive uropathy. Urine output in the last 24 hours improved compared to earlier, however creatinine levels were elevated today. Has been on Bumex the last 1-2 days. Appreciate renal consult, Ballard catheter in place. -Continue Ballard, measure urine output carefully, continue. Bumex as ordered by renal team -Follow-up recommendations from urology and renal teams 7. Diabetes: Sugar stable, continue insulin while in-house Result Diagram: 11/27/18 0459 11/27/18 0459 Results 24hrs Laboratory Tests Test 11/27/18 04:59 White Blood Count 8.3 # Red Blood Count 4.10 L Hemoglobin 8.7 L Hematocrit 33.8 L Mean Corpuscular Volume 82.4 Mean Corpuscular Hemoglobin 21.2 L Mean Corpuscular Hemoglobin Concent 25.7 L Red Cell Distribution Width 30.5 H Platelet Count 139 L Mean Platelet Volume Immature Granulocytes % 1.100 H Neutrophils % 80.1 H Lymphocytes % 8.7 L Monocytes % 6.4 Eosinophils % 3.5 Basophils % 0.2 Nucleated Red Blood Cells % 0.4 H Immature Granulocytes # 0.090 H Neutrophils # 6.6 Lymphocytes # 0.7 L Monocytes # 0.5 Eosinophils # 0.3 Basophils # 0.0 Nucleated Red Blood Cells # 0.0 Sodium Level 142 Potassium Level 4.3 Chloride Level 106 Carbon Dioxide Level 25 Anion Gap 11 Blood Urea Nitrogen 81 H Creatinine 3.47 H Est Glomerular Filtrat Rate mL/min Glucose Level 91 Calcium Level 8.3 L Exam/Review of Systems Vital Signs Vitals Vital Signs Date Temp Pulse Resp B/P (MAP) Pulse Ox O2 O2 Flow FiO2 Time Delivery Rate 11/27/18 Nasal 4.0 09:08 Cannula 11/27/18 79 08:00 11/27/18 98.2 16 101/52 94 07:41 (68) 11/24/18 30 04:31 Intake and Output 11/26/18 11/26/18 11/27/18 1515:00 23:00 07:00 IntakeIntake Total 240 ml 360 ml 200 ml OutputOutput Total 300 ml 550 ml BalanceBalance 240 ml 60 ml -350 ml Medications Medications Current Medications Ondansetron HCl (Zofran Inj) 4 mg Q6H PRN IV NAUSEA AND/OR VOMITING; Start 11/23/18 at 22:30 Acetaminophen (Tylenol Liquid) 650 mg Q6H PRN PO PAIN LEVEL 1-3 OR FEVER; Start 11/23/18 at 22:30 Acetaminophen (Tylenol Supp) 650 mg Q4H PRN PA PAIN LEVEL 1-3 OR FEVER; Start 11/23/18 at 22:30 Lorazepam (Ativan) 0.5 mg Q4H PRN IV ANXIETY; Start 11/23/18 at 22:30 Atorvastatin Calcium (Lipitor) 20 mg HS PO Last administered on 11/26/18at 20:41; Admin Dose 20 MG; Start 11/24/18 at 21:00 Albuterol/ Ipratropium (Duoneb) 3 ml Q4H RESP THERAPY PRN HHN SHORTNESS OF BREATH; Start 11/24/18 at 09:00 Aripiprazole (Abilify) 5 mg DAILY PO Last administered on 11/27/18at 09:01; Admin Dose 5 MG; Start 11/24/18 at 09:30 Digoxin (Digoxin) 0.25 mg DAILY@1300 PO Last administered on 11/26/18at 13:41; Admin Dose 0.25 MG; Start 11/24/18 at 13:00 Escitalopram Oxalate (Lexapro) 20 mg DAILY PO Last administered on 11/27/18 0 9:01; Admin Dose 20 MG; Start 11/24/18 at 09:30 Furosemide (Lasix) 80 mg DAILY@0600 PO Last administered on 11/24/18 10:01; Admin Dose 80 MG; Start 11/24/18 at 09:30; Status Hold Loratadine (Claritin) 10 mg DAILY PO Last administered on 11/27/18 09:01; Admin Dose 10 MG; Start 11/24/18 at 10:00 Multivitamins Therapeutic (Theragran) 1 tab DAILY PO Last administered on 11/27/18 09:01; Admin Dose 1 TAB; Start 11/24/18 at 09:30 Potassium Chloride (Micro-K) 8 meq DAILY PO Last administered on 11/24/18 10:12; Admin Dose 8 MEQ; Start 11/24/18 at 10:00; Status Hold Tamsulosin HCl (Flomax) 0.4 mg HS PO Last administered on 11/26/18 20:41; Admin Dose 0.4 MG; Start 11/24/18 at 21:00 Calcium/Vitamin D (Oyster Shell/ Vit-D (500/200)) 1 tab DAILY PO Last administered on 11/27/18 09:01; Admin Dose 1 TAB; Start 11/24/18 at 09:30 Aspirin (Ecotrin) 325 mg DAILY PO Last administered on 11/27/18 09:01; Admin Dose 325 MG; Start 11/25/18 at 09:00 Metoprolol Tartrate (Lopressor) 5 mg Q4H PRN IV HR>110 Hold SBP<100; Start 11/24/18 at 11:00 Pantoprazole (Protonix Tab) 40 mg DAILY@06 PO Last administered on 11/27/18 05:19; Admin Dose 40 MG; Start 11/25/18 at 06:00 Ferric Sodium Gluconate Complex 125 mg/Sodium Chloride 110 ml @ 110 mls/hr DAILY@1300 IVPB Last administered on 11/26/18 13:54; Admin Dose 110 MLS/HR; Start 11/25/18 at 13:00; Stop 11/29/18 at 13:59 Atenolol (Tenormin) 25 mg DAILY PO ; Start 11/25/18 at 14:00 Diltiazem HCl (Cardizem Sr) 120 mg DAILY PO ; Start 11/25/18 at 14:00; Status Hold Cefepime HCl 50 ml @ 100 mls/hr Q24H IVPB Last administered on 11/26/18at 15:11; Admin Dose 100 MLS/HR; Start 11/26/18 at 12:00 IV Flush (NS 10 ml) 10 ml PRN PRN IV IV PROTOCOL; Start 11/25/18 at 16:00 Bumetanide (Bumex) 2 mg BID DIURETICS PO Last administered on 11/27/18at 05:19; Admin Dose 2 MG; Start 11/26/18 at 18:00 Hydralazine HCl (Apresoline) 25 mg Q8 PO ; Start 11/26/18 at 22:00 NAYANA GARCIA Nov 27, 2018 10:51
[2018-11-27] MEDS: CEFEPIME 2GM/50 ML IVPB SCH (12:07)
--- NOTE | 2018-11-27 12:54 | CONS ---
Date/Time of Note Date/Time of Note DATE: 11/27/18 TIME: 12:52 Assessment/Plan Assessment/Plan Assessment/Plan 1. Non-ST elevation myocardial infarction, currently down trending cardiac enzymes likely a type 2 demand infarct in the setting of fevers, hypercarbic respiratory failure.-downtrended cardiac enzymes. NO cp. Echo this admit 11/24 with NL EF 55% - LHC not done with increased Cr - con't med rx now. 2. Abnormal electrocardiogram- LHC when Cr satble 3. Right bundle branch block- chronic 4. Colonic mass- defer to PMD. 5. Anemia- con't to follow - blood rX as needed 6. Renal failure-worsening - renal team follows avoid nephrotoxic meds - responded to diuresis with increased urinre output 7. Leukocytosis- on anti-bx now 8. Coagulopathy. 9. Sepsis. 10. Atrial fibrillation-now in SR - rate controlled Result Diagram: 11/27/18 0459 11/27/18 0459 Results 24hrs Laboratory Tests Test 11/27/18 04:59 White Blood Count 8.3 # Red Blood Count 4.10 L Hemoglobin 8.7 L Hematocrit 33.8 L Mean Corpuscular Volume 82.4 Mean Corpuscular Hemoglobin 21.2 L Mean Corpuscular Hemoglobin Concent 25.7 L Red Cell Distribution Width 30.5 H Platelet Count 139 L Mean Platelet Volume Immature Granulocytes % 1.100 H Neutrophils % 80.1 H Lymphocytes % 8.7 L Monocytes % 6.4 Eosinophils % 3.5 Basophils % 0.2 Nucleated Red Blood Cells % 0.4 H Immature Granulocytes # 0.090 H Neutrophils # 6.6 Lymphocytes # 0.7 L Monocytes # 0.5 Eosinophils # 0.3 Basophils # 0.0 Nucleated Red Blood Cells # 0.0 Sodium Level 142 Potassium Level 4.3 Chloride Level 106 Carbon Dioxide Level 25 Anion Gap 11 Blood Urea Nitrogen 81 H Creatinine 3.47 H Est Glomerular Filtrat Rate mL/min Glucose Level 91 Calcium Level 8.3 L Consultation Date/Type/Reason Admit Date/Time Nov 23, 2018 at 22:01 Initial Consult Date 11/25/18 Requesting Provider: NAYANA GARCIA 24 HR Interval Summary Free Text/Dictation LHC not done with increased Cr - con't med rx now. .ros: no F/c/n/V - increased urine output Exam/Review of Systems Vital Signs Vitals Vital Signs Date Temp Pulse Resp B/P (MAP) Pulse Ox O2 O2 Flow FiO2 Time Delivery Rate 11/27/18 75 12:00 11/27/18 98.4 16 116/55 93 11:59 (75) 11/27/18 Nasal 4.0 09:08 Cannula 11/24/18 30 04:31 Intake and Output 11/26/18 11/26/18 11/27/18 1515:00 23:00 07:00 IntakeIntake Total 240 ml 360 ml 200 ml OutputOutput Total 300 ml 550 ml BalanceBalance 240 ml 60 ml -350 ml Exam General: WN/WD/NAD, AOx comfortable HEENT: Unicetric/atraumatic/EOMI (does not follow commands) NECK: JVD elevated, no thyromegaly Lymph: no lymphadenopathy HEART: regular with no S3, II/ systolic murmur at apex, PMI L LUNGS: Coarse sounds ABD: soft, NT, ND, +BS : Intact Neuro: non focal SKIN: chronic changes EXT: + edema Medications Medications Current Medications Ondansetron HCl (Zofran Inj) 4 mg Q6H PRN IV NAUSEA AND/OR VOMITING; Start 11/23/18 at 22:30 Acetaminophen (Tylenol Liquid) 650 mg Q6H PRN PO PAIN LEVEL 1-3 OR FEVER; Start 11/23/18 at 22:30 Acetaminophen (Tylenol Supp) 650 mg Q4H PRN NE PAIN LEVEL 1-3 OR FEVER; Start 11/23/18 at 22:30 Lorazepam (Ativan) 0.5 mg Q4H PRN IV ANXIETY; Start 11/23/18 at 22:30 Atorvastatin Calcium (Lipitor) 20 mg HS PO Last administered on 11/26/18at 20:41; Admin Dose 20 MG; Start 11/24/18 at 21:00 Albuterol/ Ipratropium (Duoneb) 3 ml Q4H RESP THERAPY PRN HHN SHORTNESS OF BREATH; Start 11/24/18 at 09:00 Aripiprazole (Abilify) 5 mg DAILY PO Last administered on 11/27/18at 09:01; Admin Dose 5 MG; Start 11/24/18 at 09:30 Digoxin (Digoxin) 0.25 mg DAILY@1300 PO Last administered on 11/26/18 13:41; Admin Dose 0.25 MG; Start 11/24/18 at 13:00 Escitalopram Oxalate (Lexapro) 20 mg DAILY PO Last administered on 11/27/18 09:01; Admin Dose 20 MG; Start 11/24/18 at 09:30 Furosemide (Lasix) 80 mg DAILY@0600 PO Last administered on 11/24/18 10:01; Admin Dose 80 MG; Start 11/24/18 at 09:30; Status Hold Loratadine (Claritin) 10 mg DAILY PO Last administered on 11/27/18 09:01; Admin Dose 10 MG; Start 11/24/18 at 10:00 Multivitamins Therapeutic (Theragran) 1 tab DAILY PO Last administered on 11/27/18 09:01; Admin Dose 1 TAB; Start 11/24/18 at 09:30 Potassium Chloride (Micro-K) 8 meq DAILY PO Last administered on 11/24/18 10:12; Admin Dose 8 MEQ; Start 11/24/18 at 10:00; Status Hold Tamsulosin HCl (Flomax) 0.4 mg HS PO Last administered on 11/26/18 20:41; Admin Dose 0.4 MG; Start 11/24/18 at 21:00 Calcium/Vitamin D (Oyster Shell/ Vit-D (500/200)) 1 tab DAILY PO Last administered on 11/27/18 09:01; Admin Dose 1 TAB; Start 11/24/18 at 09:30 Aspirin (Ecotrin) 325 mg DAILY PO Last administered on 11/27/18 09:01; Admin Dose 325 MG; Start 11/25/18 at 09:00 Metoprolol Tartrate (Lopressor) 5 mg Q4H PRN IV HR>110 Hold SBP<100; Start 11/24/18 at 11:00 Pantoprazole (Protonix Tab) 40 mg DAILY@06 PO Last administered on 11/27/18 05:19; Admin Dose 40 MG; Start 11/25/18 at 06:00 Ferric Sodium Gluconate Complex 125 mg/Sodium Chloride 110 ml @ 110 mls/hr DAILY@1300 IVPB Last administered on 11/26/18 13:54; Admin Dose 110 MLS/HR; Start 11/25/18 at 13:00; Stop 11/29/18 at 13:59 Atenolol (Tenormin) 25 mg DAILY PO ; Start 11/25/18 at 14:00 Diltiazem HCl (Cardizem Sr) 120 mg DAILY PO ; Start 11/25/18 at 14:00; Status Hold Cefepime HCl 50 ml @ 100 mls/hr Q24H IVPB Last administered on 11/27/18at 12:07; Admin Dose 100 MLS/HR; Start 11/26/18 at 12:00 IV Flush (NS 10 ml) 10 ml PRN PRN IV IV PROTOCOL; Start 11/25/18 at 16:00 Bumetanide (Bumex) 2 mg BID DIURETICS PO Last administered on 11/27/18at 05:19; Admin Dose 2 MG; Start 11/26/18 at 18:00 Hydralazine HCl (Apresoline) 25 mg Q8 PO ; Start 11/26/18 at 22:00 SCARLET HARDWICK MD Nov 27, 2018 12:54
[2018-11-27] MEDS: DIGOXIN 0.25 MG TAB PO SCH (13:00)
--- NOTE | 2018-11-27 13:34 | CONS ---
Date/Time of Note Date/Time of Note DATE: 11/27/18 TIME: 13:33 Assessment/Plan Assessment/Plan Assessment/Plan 1. Oliguric acute on chronic renal failure due to Sepsis and Hemodynamics + obstructive uropathy 2. atrial fibrillation with RVR 3. acute hypoxemic and hypercapnic resp failure due to PNA 4. Sepsis 5. Positive troponin 6. BPH on flomax 7. Colon CA Plan: BUN/Cr 81/3.47, pt remains confused, bumex 1mg IV BID- Urine output 850 cc- Discussed with son about in details- they want to keep pt full code and want to do HD if needed Family want to know about staging for colon CA s/p Urology consult and Ballard placement will follow up Result Diagram: 11/27/18 0459 11/27/18 0459 Results 24hrs Laboratory Tests Test 11/27/18 04:59 White Blood Count 8.3 # Red Blood Count 4.10 L Hemoglobin 8.7 L Hematocrit 33.8 L Mean Corpuscular Volume 82.4 Mean Corpuscular Hemoglobin 21.2 L Mean Corpuscular Hemoglobin Concent 25.7 L Red Cell Distribution Width 30.5 H Platelet Count 139 L Mean Platelet Volume Immature Granulocytes % 1.100 H Neutrophils % 80.1 H Lymphocytes % 8.7 L Monocytes % 6.4 Eosinophils % 3.5 Basophils % 0.2 Nucleated Red Blood Cells % 0.4 H Immature Granulocytes # 0.090 H Neutrophils # 6.6 Lymphocytes # 0.7 L Monocytes # 0.5 Eosinophils # 0.3 Basophils # 0.0 Nucleated Red Blood Cells # 0.0 Sodium Level 142 Potassium Level 4.3 Chloride Level 106 Carbon Dioxide Level 25 Anion Gap 11 Blood Urea Nitrogen 81 H Creatinine 3.47 H Est Glomerular Filtrat Rate mL/min Glucose Level 91 Calcium Level 8.3 L Consultation Date/Type/Reason Admit Date/Time Nov 23, 2018 at 22:01 Initial Consult Date 11/24/18 Type of Consult NEPHROLOGY Requesting Provider: NAYANA GARCIA 24 HR Interval Summary Free Text/Dictation still confused disoriented, Bp stable Exam/Review of Systems Vital Signs Vitals Vital Signs Date Temp Pulse Resp B/P (MAP) Pulse Ox O2 O2 Flow FiO2 Time Delivery Rate 11/27/18 75 12:00 11/27/18 98.4 16 116/55 93 11:59 (75) 11/27/18 Nasal 4.0 09:08 Cannula 11/24/18 30 04:31 Intake and Output 11/26/18 11/26/18 11/27/18 1515:00 23:00 07:00 IntakeIntake Total 240 ml 360 ml 200 ml OutputOutput Total 300 ml 550 ml BalanceBalance 240 ml 60 ml -350 ml Exam Constitutional: alert Respiratory: congested cough, crackles/rales, diminished breath sounds Cardiovascular: regular rate and rhythm, nl pulses Gastrointestinal: soft, non-tender Musculoskeletal: nl extremities to inspection, muscle weakness, swelling Neurological: other (Non focal ) Skin: nl turgor Lymph: nl lymph nodes Medications Medications Current Medications Ondansetron HCl (Zofran Inj) 4 mg Q6H PRN IV NAUSEA AND/OR VOMITING; Start 11/23/18 at 22:30 Acetaminophen (Tylenol Liquid) 650 mg Q6H PRN PO PAIN LEVEL 1-3 OR FEVER; Start 11/23/18 at 22:30 Acetaminophen (Tylenol Supp) 650 mg Q4H PRN [place] PAIN LEVEL 1-3 OR FEVER; Start 11/23/18 at 22:30 Lorazepam (Ativan) 0.5 mg Q4H PRN IV ANXIETY; Start 11/23/18 at 22:30 Atorvastatin Calcium (Lipitor) 20 mg HS PO Last administered on 11/26/18at 20:41; Admin Dose 20 MG; Start 11/24/18 at 21:00 Albuterol/ Ipratropium (Duoneb) 3 ml Q4H RESP THERAPY PRN HHN SHORTNESS OF BREATH; Start 11/24/18 at 09:00 Aripiprazole (Abilify) 5 mg DAILY PO Last administered on 11/27/18 09:01; Admin Dose 5 MG; Start 11/24/18 at 09:30 Digoxin (Digoxin) 0.25 mg DAILY@1300 PO Last administered on 11/26/18 13:41; Admin Dose 0.25 MG; Start 11/24/18 at 13:00 Escitalopram Oxalate (Lexapro) 20 mg DAILY PO Last administered on 11/27/18 09:01; Admin Dose 20 MG; Start 11/24/18 at 09:30 Furosemide (Lasix) 80 mg DAILY@0600 PO Last administered on 11/24/18 10:01; Admin Dose 80 MG; Start 11/24/18 at 09:30; Status Hold Loratadine (Claritin) 10 mg DAILY PO Last administered on 11/27/18 09:01; Admin Dose 10 MG; Start 11/24/18 at 10:00 Multivitamins Therapeutic (Theragran) 1 tab DAILY PO Last administered on 11/27/18 09:01; Admin Dose 1 TAB; Start 11/24/18 at 09:30 Potassium Chloride (Micro-K) 8 meq DAILY PO Last administered on 11/24/18 10:12; Admin Dose 8 MEQ; Start 11/24/18 at 10:00; Status Hold Tamsulosin HCl (Flomax) 0.4 mg HS PO Last administered on 11/26/18 20:41; Admin Dose 0.4 MG; Start 11/24/18 at 21:00 Calcium/Vitamin D (Oyster Shell/ Vit-D (500/200)) 1 tab DAILY PO Last administered on 11/27/18 09:01; Admin Dose 1 TAB; Start 11/24/18 at 09:30 Aspirin (Ecotrin) 325 mg DAILY PO Last administered on 11/27/18 09:01; Admin Dose 325 MG; Start 11/25/18 at 09:00 Metoprolol Tartrate (Lopressor) 5 mg Q4H PRN IV HR>110 Hold SBP<100; Start 11/24/18 at 11:00 Pantoprazole (Protonix Tab) 40 mg DAILY@06 PO Last administered on 11/27/18 05:19; Admin Dose 40 MG; Start 11/25/18 at 06:00 Ferric Sodium Gluconate Complex 125 mg/Sodium Chloride 110 ml @ 110 mls/hr DAILY@1300 IVPB Last administered on 11/26/18 13:54; Admin Dose 110 MLS/HR; Start 11/25/18 at 13:00; Stop 11/29/18 at 13:59 Atenolol (Tenormin) 25 mg DAILY PO ; Start 11/25/18 at 14:00 Diltiazem HCl (Cardizem Sr) 120 mg DAILY PO ; Start 11/25/18 at 14:00; Status Hold Cefepime HCl 50 ml @ 100 mls/hr Q24H IVPB Last administered on 1/5/19at 12:07; Admin Dose 100 MLS/HR; Start 11/26/18 at 12:00 IV Flush (NS 10 ml) 10 ml PRN PRN IV IV PROTOCOL; Start 11/25/18 at 16:00 Bumetanide (Bumex) 2 mg BID DIURETICS PO Last administered on 11/27/18at 05:19; Admin Dose 2 MG; Start 11/26/18 at 18:00 Hydralazine HCl (Apresoline) 25 mg Q8 PO ; Start 11/26/18 at 22:00 RENAN HERNANDEZ MD Nov 27, 2018 13:34
[2018-11-27] MEDS: SOD FERRIC GLUC COMPLX 125 MG in SOD CHLORIDE 0.9% 100 ML IVPB SCH (13:41)
--- NOTE | 2018-11-27 16:44 | CONS ---
Date/Time of Note Date/Time of Note DATE: 11/27/18 TIME: 16:41 Consult Date/Type/Reason Admit Date/Time Nov 23, 2018 at 22:01 Initial Consult Date 11/25/18 Type of Consultation: Pulm Requesting Provider: NAYANA GARCIA Subjective No events overnight. UO remains low Objective Vital Signs Date Temp Pulse Resp B/P (MAP) Pulse Ox O2 O2 Flow FiO2 Time Delivery Rate 11/27/18 98.2 83 16 131/60 92 15:33 (83) 11/27/18 4.0 15:20 11/27/18 Nasal 09:08 Cannula 11/24/18 30 04:31 Intake and Output 11/26/18 11/26/18 11/27/18 1515:00 23:00 07:00 IntakeIntake Total 240 ml 360 ml 200 ml OutputOutput Total 300 ml 550 ml BalanceBalance 240 ml 60 ml -350 ml Exam HEENT: Neck supple; + JVD; no LAD CVS: Irreg irreg, S1 and S2 CHEST: Bilateral rales ABD: Soft, NT, + BS EXT: No c/c; + edema Results/Medications Result Diagram: 11/27/18 0459 11/27/18 0459 Results 24 hrs Laboratory Tests Test 11/27/18 04:59 11/27/18 13:40 White Blood Count 8.3 # Red Blood Count 4.10 L Hemoglobin 8.7 L Hematocrit 33.8 L Mean Corpuscular Volume 82.4 Mean Corpuscular Hemoglobin 21.2 L Mean Corpuscular Hemoglobin Concent 25.7 L Red Cell Distribution Width 30.5 H Platelet Count 139 L Mean Platelet Volume Immature Granulocytes % 1.100 H Neutrophils % 80.1 H Lymphocytes % 8.7 L Monocytes % 6.4 Eosinophils % 3.5 Basophils % 0.2 Nucleated Red Blood Cells % 0.4 H Immature Granulocytes # 0.090 H Neutrophils # 6.6 Lymphocytes # 0.7 L Monocytes # 0.5 Eosinophils # 0.3 Basophils # 0.0 Nucleated Red Blood Cells # 0.0 Sodium Level 142 Potassium Level 4.3 Chloride Level 106 Carbon Dioxide Level 25 Anion Gap 11 Blood Urea Nitrogen 81 H Creatinine 3.47 H Est Glomerular Filtrat Rate mL/min Glucose Level 91 Calcium Level 8.3 L Bedside Glucose 138 Medications Current Medications Ondansetron HCl (Zofran Inj) 4 mg Q6H PRN IV NAUSEA AND/OR VOMITING; Start 11/23/18 at 22:30 Acetaminophen (Tylenol Liquid) 650 mg Q6H PRN PO PAIN LEVEL 1-3 OR FEVER; Start 11/23/18 at 22:30 Acetaminophen (Tylenol Supp) 650 mg Q4H PRN [place] PAIN LEVEL 1-3 OR FEVER; Start 11/23/18 at 22:30 Lorazepam (Ativan) 0.5 mg Q4H PRN IV ANXIETY; Start 11/23/18 at 22:30 Atorvastatin Calcium (Lipitor) 20 mg HS PO Last administered on 11/26/18 20:41; Admin Dose 20 MG; Start 11/24/18 at 21:00 Albuterol/ Ipratropium (Duoneb) 3 ml Q4H RESP THERAPY PRN HHN SHORTNESS OF BREATH; Start 11/24/18 at 09:00 Aripiprazole (Abilify) 5 mg DAILY PO Last administered on 11/27/18 09:01; Admin Dose 5 MG; Start 11/24/18 at 09:30 Digoxin (Digoxin) 0.25 mg DAILY@1300 PO Last administered on 11/26/18 13:41; Admin Dose 0.25 MG; Start 11/24/18 at 13:00 Escitalopram Oxalate (Lexapro) 20 mg DAILY PO Last administered on 11/27/18 09:01; Admin Dose 20 MG; Start 11/24/18 at 09:30 Furosemide (Lasix) 80 mg DAILY@0600 PO Last administered on 11/24/18 10:01; Ad min Dose 80 MG; Start 11/24/18 at 09:30; Status Hold Loratadine (Claritin) 10 mg DAILY PO Last administered on 11/27/18 09:01; Admin Dose 10 MG; Start 11/24/18 at 10:00 Multivitamins Therapeutic (Theragran) 1 tab DAILY PO Last administered on 11/27/18 09:01; Admin Dose 1 TAB; Start 11/24/18 at 09:30 Potassium Chloride (Micro-K) 8 meq DAILY PO Last administered on 11/24/18 10:12; Admin Dose 8 MEQ; Start 11/24/18 at 10:00; Status Hold Tamsulosin HCl (Flomax) 0.4 mg HS PO Last administered on 11/26/18at 20:41; Admin Dose 0.4 MG; Start 11/24/18 at 21:00 Calcium/Vitamin D (Oyster Shell/ Vit-D (500/200)) 1 tab DAILY PO Last administered on 11/27/18at 09:01; Admin Dose 1 TAB; Start 11/24/18 at 09:30 Aspirin (Ecotrin) 325 mg DAILY PO Last administered on 11/27/18at 09:01; Admin Dose 325 MG; Start 11/25/18 at 09:00 Metoprolol Tartrate (Lopressor) 5 mg Q4H PRN IV HR>110 Hold SBP<100; Start 11/24/18 at 11:00 Pantoprazole (Protonix Tab) 40 mg DAILY@06 PO Last administered on 11/27/18 05:19; Admin Dose 40 MG; Start 11/25/18 at 06:00 Ferric Sodium Gluconate Complex 125 mg/Sodium Chloride 110 ml @ 110 mls/hr DAILY@1300 IVPB Last administered on 11/27/18at 13:41; Admin Dose 110 MLS/HR; Start 11/25/18 at 13:00; Stop 11/29/18 at 13:59 Atenolol (Tenormin) 25 mg DAILY PO ; Start 11/25/18 at 14:00 Diltiazem HCl (Cardizem Sr) 120 mg DAILY PO ; Start 11/25/18 at 14:00; Status Hold Cefepime HCl 50 ml @ 100 mls/hr Q24H IVPB Last administered on 11/27/18at 12:07; Admin Dose 100 MLS/HR; Start 11/26/18 at 12:00 IV Flush (NS 10 ml) 10 ml PRN PRN IV IV PROTOCOL; Start 11/25/18 at 16:00 Bumetanide (Bumex) 2 mg BID DIURETICS PO Last administered on 11/27/18 05:19; Admin Dose 2 MG; Start 11/26/18 at 18:00 Hydralazine HCl (Apresoline) 25 mg Q8 PO ; Start 11/26/18 at 22:00 Assessment/Plan Additional Assessment/Plan IMP: 1. Acute hypoxemic/hypercapnic respiratory failure, likely secondary to congestive cardiac failure/volume overload versus community-acquired pneumonia. 2. Sigmoid mass, presumed colon cancer with recent severe anemia. 3. Non-ST elevation myocardial infarction. 4. Atrial fibrillation with rapid ventricular response, now rate controlled 5. ARF with oliguria RECS: 1. Agree with bumex; if no response may soon need HD/UF 2. Am ABG 3. Monitor resp status closely 4. Abx KATHY HUTCHINSON MD Nov 27, 2018 16:44
--- NOTE | 2018-11-27 16:49 | NUR ---
Patient's family members at the bedside requested to let patient rest at this time and switch to low air loss at later time. sterilization specialistLEYLA orona.
--- NOTE | 2018-11-27 17:34 | NUR ---
Called [facility] again to follow up on low air loss bed. Spoke to Yanira, who said transport was already called and bed should be delivered soon.
--- NOTE | 2018-11-27 18:11 | NUR ---
Bumex currently out of stock in [facility]. Called pharmacy and spoke with Chi who stated they will bring some up.
--- NOTE | 2018-11-27 19:00 | NUR ---
EOSS Patient remains confused, SR on the monitor at this time, continues to be on 4L O2 via NC. Toward end of shift at approximately 1837, patient's HR suddenly dropped to 30, sinus momo, did not sustain. Called and notified Dr. Betancourt. No new orders received. Followed up on low air loss mattress with [facility], which wasnt delivered yet, and endorsed to oncoming RN. Patient kept clean and dry, turned q2h, and dressing changes done. Plan for chest xray and ABGs in am. Continue with plan of care.
[2018-11-27] MEDS: TAMSULOSIN (SR) 0.4 MG CAP PO SCH (21:05)
[2018-11-27] MEDS: ATORVASTATIN 20 MG TAB PO SCH (21:05)
[2018-11-28] VITALS (24 sets, daily range): BP systolic 104–134; BP diastolic 50–65; PULSE 65–84; RESP 13–25
[2018-11-28] MEDS: BUMETANIDE 1 MG TAB PO SCH (06:12)
[2018-11-28] MEDS: PANTOPRAZOLE (EC) 40 MG TAB PO SCH (06:12)
[2018-11-28] MEDS: ESCITALOPRAM 10 MG TAB PO SCH (08:53)
[2018-11-28] MEDS: LORATADINE 10 MG TAB PO SCH (08:53)
[2018-11-28] MEDS: CALCIUM/VITAMIN D (500/200) TAB PO SCH (08:53)
[2018-11-28] MEDS: ATENOLOL 50 MG TAB PO SCH (08:53)
[2018-11-28] MEDS: MULTIVITAMINS THERAPEUTIC TAB PO SCH (08:54)
[2018-11-28] MEDS: ASPIRIN (EC) 325 MG TAB PO SCH (08:54)
[2018-11-28] MEDS: ARIPIPRAZOLE 5 MG TAB PO SCH (08:54)
[2018-11-28] MEDS: BALSAM PERU/CASTOR OIL 60 GM TUBE TOP SCH ×2 (08:54→21:02)
--- NOTE | 2018-11-28 11:49 | PN ---
Date/Time of Note Date/Time of Note DATE: 11/28/18 TIME: 11:48 Assessment/Plan VTE Prophylaxis Risk score (from [facility] [place]0 risk: 17 SCD applied (from Ns): Yes Pharmacological prophylaxis: other Lines/Catheters IV [facility] (from [facility] PICC Line Central line still needed: Yes Urinary Cath still in place: Yes Reason Cath still needed: urinary retention Assessment/Plan Hospital Course S: Patient had some respiratory distress last night. Presently on BiPAP. O: VS - see below PE: Const: Lying in bed, lethargic, no acute distress presently, family at the bedside Head: Atraumatic, normocephalic Eyes: Normal Conjunctiva, PERRLA, EOMI, normal sclera, no nystagmus ENT: Normal External Ears, Nose and Mouth, moist mucus membranes. Neck: Supple Resp: Some increased work of breathing, still some bilateral rhonchi and wheezes decreased breath sounds in the bases Cardio: Regular rate and rhythm, no murmurs, S1 S2 present Abd: Soft, non tender x 4, slight distention. 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 2D echo November 24, 2018: Conclusions Normal left ventricular systolic function. Normal left ventricular cavity size. Sigmoid septum. Ejection fraction is visually estimated at 55 %. Normal right ventricular systolic function. Moderate enlargement of right ventricle. There is mild enlargement of left atrium. There is mild enlargement of right atrium. Mild mitral leaflet calcification. Mild mitral annular calcification. Trace mitral regurgitation. Normal appearance of the tricuspid valve. There is trace tricuspid regurgitation. Assessment/Plan: 78-year-old male recently diagnosed with new colon mass, who presents with: 1. Hypoxic and hypercapnic respiratory failure: Appears to be slowly improving, now down to 4 L oxygen so still requiring O2 supplementation. Symptoms secondary to pneumonia and CHF/mild fluid overload. No fevers the last 3 days. Earlier this admission patient required BiPAP. -Continue Supplemental oxygen, BiPAP as needed, bronchodilators -continue IV antibiotic, follow up final culture results, Tylenol as needed fever -Follow up pulmonary recommendations -DuoNeb's as needed 2. Sepsis: As evidenced by fever and tachycardia: Secondary to pneumonia -see #1. Slowly improving now as patient is been afebrile for the last 3 days -Again, continue broad-spectrum IV antibiotic -Follow-up final respiratory and blood culture results 3. Cardiac- elevated troponins: Likely secondary to #1 and #2-Status post treatment dose Lovenox in ER. Elevated troponins, per cardiology, likely a type 2 demand infarct in the setting of fevers, hypercarbic respiratory failure -but currently down trending cardiac enzymes -Continue to trend troponin -Follow-up cardiology consult recommendations -no left heart cath at this time secondary to renal insufficiency 4. Sigmoid mass: Status post biopsy during recent hospitalization. 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 -Follow-up surgery, hematology oncology, GI team recommendations -to determine treatment options at this point for his adenocarcinoma regarding surgery, chemotherapy, radiation options-this will likely be more considered when patient is more medically optimized. 5. Atrial fibrillation with RVR -resolved now -Continue to monitor, patient on beta-esther and digoxin, follow-up c ardiology recommendations 6. Renal insufficiency: Oliguric acute on chronic renal failure due to Sepsis and Hemodynamics + obstructive uropathy. Urine output in the last 24-48 hours improved compared to earlier this admission. Has been on Bumex the last 2 days. Appreciate renal consult, Ballard catheter in place. -Continue Ballard, measure urine output carefully, continue. Bumex as ordered by renal team -Follow-up BMP results this morning, still pending, and recommendations from urology and renal teams 7. Diabetes: Sugar stable, continue insulin while in-house Result Diagram: 11/27/18 0459 11/27/18 0459 Results 24hrs Laboratory Tests Test 11/27/18 13:40 11/28/18 05:00 Bedside Glucose 138 Blood Gas Specimen Source Blood arterial Arterial Blood Date Drawn 11/28/2018 5:00:03 AM Arterial Blood pH (Temp corrected) 7.192 *L Arterial Blood pCO2 (Temp correct) 68.7 H Arterial Blood pO2 (Temp corrected) 83.1 Arterial Blood HCO3 25.8 Arterial Blood Base Excess -3.3 L Arterial Blood Oxygen Saturation 94.4 L Nilson Test ACCEPTAB Arterial Blood Gas Puncture Site Right Radial Arterial Blood Carboxyhemoglobin 1.6 Arterial Blood Methemoglobin 0.3 Blood Gas A-a O2 Differential 72.0 H Oxyhemoglobin Percent 92.6 L Blood Gas Temperature 37.0 Blood Gas Modality NASAL CANNULA FiO2 33.0 Blood Gas Critical Value Read Back FRANCHESCA MAYER Blood Gas Notified Whom KM Blood Gas Notified Time 11/28/2018 5:12:15 AM Exam/Review of Systems Vital Signs Vitals Vital Signs Date Temp Pulse Resp B/P (MAP) Pulse Ox O2 O2 Flow FiO2 Time Delivery Rate 11/28/18 97.6 66 16 114/54 95 11:30 (74) 11/28/18 35 09:15 11/28/18 4.0 06:10 11/27/18 Nasal 20:00 Cannula Intake and Output 11/27/18 11/27/18 11/28/18 1515:00 23:00 07:00 IntakeIntake Total 150 ml 60 ml OutputOutput Total 800 ml 550 ml BalanceBalance -650 ml -490 ml Medications Medications Current Medications Ondansetron HCl (Zofran Inj) 4 mg Q6H PRN IV NAUSEA AND/OR VOMITING; Start 11/23/18 at 22:30 Acetaminophen (Tylenol Liquid) 650 mg Q6H PRN PO PAIN LEVEL 1-3 OR FEVER; Start 11/23/18 at 22:30 Acetaminophen (Tylenol Supp) 650 mg Q4H PRN [place] PAIN LEVEL 1-3 OR FEVER; Start 11/23/18 at 22:30 Lorazepam (Ativan) 0.5 mg Q4H PRN IV ANXIETY; Start 11/23/18 at 22:30 Atorvastatin Calcium (Lipitor) 20 mg HS PO Last administered on 11/27/18at 21:05; Admin Dose 20 MG; Start 11/24/18 at 21:00 Albuterol/ Ipratropium (Duoneb) 3 ml Q4H RESP THERAPY PRN HHN SHORTNESS OF BREATH; Start 11/24/18 at 09:00 Aripiprazole (Abilify) 5 mg DAILY PO Last administered on 11/28/18 08:54; Admin Dose 5 MG; Start 11/24/18 at 09:30 Digoxin (Digoxin) 0.25 mg DAILY@1300 PO Last administered on 11/26/18 13:41; Admin Dose 0.25 MG; Start 11/24/18 at 13:00 Escitalopram Oxalate (Lexapro) 20 mg DAILY PO Last administered on 11/28/18 08:53; Admin Dose 20 MG; Start 11/24/18 at 09:30 Furosemide (Lasix) 80 mg DAILY@0600 PO Last administered on 11/24/18 10:01; Admin Dose 80 MG; Start 11/24/18 at 09:30; Status Hold Loratadine (Claritin) 10 mg DAILY PO Last administered on 11/28/18 08:53; Admin Dose 10 MG; Start 11/24/18 at 10:00 Multivitamins Therapeutic (Theragran) 1 tab DAILY PO Last administered on 11/28/18 08:54; Admin Dose 1 TAB; Start 11/24/18 at 09:30 Potassium Chloride (Micro-K) 8 meq DAILY PO Last administered on 11/24/18 10:12; Admin Dose 8 MEQ; Start 11/24/18 at 10:00; Status Hold Tamsulosin HCl (Flomax) 0.4 mg HS PO Last administered on 11/27/18 21:05; Admin Dose 0.4 MG; Start 11/24/18 at 21:00 Calcium/Vitamin D (Oyster Shell/ Vit-D (500/200)) 1 tab DAILY PO Last administered on 11/28/18 08:53; Admin Dose 1 TAB; Start 11/24/18 at 09:30 Aspirin (Ecotrin) 325 mg DAILY PO Last administered on 11/28/18 08:54; Admin Dose 325 MG; Start 11/25/18 at 09:00 Metoprolol Tartrate (Lopressor) 5 mg Q4H PRN IV HR>110 Hold SBP<100; Start 11/24/18 at 11:00 Pantoprazole (Protonix Tab) 40 mg DAILY@06 PO Last administered on 11/28/18 06:12; Admin Dose 40 MG; Start 11/25/18 at 06:00 Ferric Sodium Gluconate Complex 125 mg/Sodium Chloride 110 ml @ 110 mls/hr DAILY@1300 IVPB Last administered on 11/27/18at 13:41; Admin Dose 110 MLS/HR; Start 11/25/18 at 13:00; Stop 11/29/18 at 13:59 Atenolol (Tenormin) 25 mg DAILY PO Last administered on 11/28/18at 08:53; Admin Dose 25 MG; Start 11/25/18 at 14:00 Diltiazem HCl (Cardizem Sr) 120 mg DAILY PO ; Start 11/25/18 at 14:00; Status Hold Cefepime HCl 50 ml @ 100 mls/hr Q24H IVPB Last administered on 11/27/18at 12:07; Admin Dose 100 MLS/HR; Start 11/26/18 at 12:00 IV Flush (NS 10 ml) 10 ml PRN PRN IV IV PROTOCOL; Start 11/25/18 at 16:00 Bumetanide (Bumex) 2 mg BID DIURETICS PO Last administered on 11/28/18at 06:12; Admin Dose 2 MG; Start 11/26/18 at 18:00 Hydralazine HCl (Apresoline) 25 mg Q8 PO ; Start 11/26/18 at 22:00 NAYANA GARCIA Nov 28, 2018 11:49
[2018-11-28] MEDS: CEFEPIME 2GM/50 ML IVPB SCH (12:19)
--- NOTE | 2018-11-28 12:46 | CONS ---
Date/Time of Note Date/Time of Note DATE: 11/28/18 TIME: 12:45 Consult Date/Type/Reason Admit Date/Time Nov 23, 2018 at 22:01 Initial Consult Date 11/24/18 Type of Consultation: Pulm Requesting Provider: NAYANA GARCIA Objective Vital Signs Date Temp Pulse Resp B/P (MAP) Pulse Ox O2 O2 Flow FiO2 Time Delivery Rate 11/28/18 97.6 66 16 114/54 95 11:30 (74) 11/28/18 35 09:15 11/28/18 4.0 06:10 11/27/18 Nasal 20:00 Cannula Intake and Output 11/27/18 11/27/18 11/28/18 1515:00 23:00 07:00 IntakeIntake Total 150 ml 60 ml OutputOutput Total 800 ml 550 ml BalanceBalance -650 ml -490 ml Results/Medications Result Diagram: 11/27/18 0459 11/27/18 0459 Results 24 hrs Laboratory Tests Test 11/27/18 13:40 11/28/18 05:00 Bedside Glucose 138 Blood Gas Specimen Source Blood arterial Arterial Blood Date Drawn 11/28/2018 5:00:03 AM Arterial Blood pH (Temp corrected) 7.192 *L Arterial Blood pCO2 (Temp correct) 68.7 H Arterial Blood pO2 (Temp corrected) 83.1 Arterial Blood HCO3 25.8 Arterial Blood Base Excess -3.3 L Arterial Blood Oxygen Saturation 94.4 L Nilson Test ACCEPTAB Arterial Blood Gas Puncture Site Right Radial Arterial Blood Carboxyhemoglobin 1.6 Arterial Blood Methemoglobin 0.3 Blood Gas A-a O2 Differential 72.0 H Oxyhemoglobin Percent 92.6 L Blood Gas Temperature 37.0 Blood Gas Modality NASAL CANNULA FiO2 33.0 Blood Gas Critical Value Read Back FRANCHESCA MAYER Blood Gas Notified Whom KM Blood Gas Notified Time 11/28/2018 5:12:15 AM Medications Current Medications Ondansetron HCl (Zofran Inj) 4 mg Q6H PRN IV NAUSEA AND/OR VOMITING; Start 11/23/18 at 22:30 Acetaminophen (Tylenol Liquid) 650 mg Q6H PRN PO PAIN LEVEL 1-3 OR FEVER; Start 11/23/18 at 22:30 Acetaminophen (Tylenol Supp) 650 mg Q4H PRN [place] PAIN LEVEL 1-3 OR FEVER; Start 11/23/18 at 22:30 Lorazepam (Ativan) 0.5 mg Q4H PRN IV ANXIETY; Start 11/23/18 at 22:30 Atorvastatin Calcium (Lipitor) 20 mg HS PO Last administered on 11/27/18 21:05; Admin Dose 20 MG; Start 11/24/18 at 21:00 Albuterol/ Ipratropium (Duoneb) 3 ml Q4H RESP THERAPY PRN HHN SHORTNESS OF BREATH; Start 11/24/18 at 09:00 Aripiprazole (Abilify) 5 mg DAILY PO Last administered on 11/28/18 08:54; Admin Dose 5 MG; Start 11/24/18 at 09:30 Digoxin (Digoxin) 0.25 mg DAILY@1300 PO Last administered on 11/26/18 13:41; Admin Dose 0.25 MG; Start 11/24/18 at 13:00; Status Hold Escitalopram Oxalate (Lexapro) 20 mg DAILY PO Last administered on 11/28/18 08:53; Admin Dose 20 MG; Start 11/24/18 at 09:30 Furosemide (Lasix) 80 mg DAILY@0600 PO Last administered on 11/24/18 10:01; Admin Dose 80 MG; Start 11/24/18 at 09:30; Status Hold Loratadine (Claritin) 10 mg DAILY PO Last administered on 11/28/18 08:53; Admin Dose 10 MG; Start 11/24/18 at 10:00 Multivitamins Therapeutic (Theragran) 1 tab DAILY PO Last administered on 11/28 08:54; Admin Dose 1 TAB; Start 11/24/18 at 09:30 Potassium Chloride (Micro-K) 8 meq DAILY PO Last administered on 11/24/18 10:12; Admin Dose 8 MEQ; Start 11/24/18 at 10:00; Status Hold Tamsulosin HCl (Flomax) 0.4 mg HS PO Last administered on 11/27/18 21:05; Admin Dose 0.4 MG; Start 11/24/18 at 21:00 Calcium/Vitamin D (Oyster Shell/ Vit-D (500/200)) 1 tab DAILY PO Last administered on 11/28/18 08:53; Admin Dose 1 TAB; Start 11/24/18 at 09:30 Aspirin (Ecotrin) 325 mg DAILY PO Last administered on 11/28/18at 08:54; Admin Dose 325 MG; Start 11/25/18 at 09:00 Metoprolol Tartrate (Lopressor) 5 mg Q4H PRN IV HR>110 Hold SBP<100; Start 11/24/18 at 11:00 Pantoprazole (Protonix Tab) 40 mg DAILY@06 PO Last administered on 11/28/18at 06:12; Admin Dose 40 MG; Start 11/25/18 at 06:00 Ferric Sodium Gluconate Complex 125 mg/Sodium Chloride 110 ml @ 110 mls/hr DAILY@1300 IVPB Last administered on 11/27/18at 13:41; Admin Dose 110 MLS/HR; Start 11/25/18 at 13:00; Stop 11/29/18 at 13:59 Atenolol (Tenormin) 25 mg DAILY PO Last administered on 11/28/18at 08:53; Admin Dose 25 MG; Start 11/25/18 at 14:00 Diltiazem HCl (Cardizem Sr) 120 mg DAILY PO ; Start 11/25/18 at 14:00; Status Hold Cefepime HCl 50 ml @ 100 mls/hr Q24H IVPB Last administered on 11/28/18at 12:19; Admin Dose 100 MLS/HR; Start 11/26/18 at 12:00 IV Flush (NS 10 ml) 10 ml PRN PRN IV IV PROTOCOL; Start 11/25/18 at 16:00 Bumetanide (Bumex) 2 mg BID DIURETICS PO Last administered on 11/28/18at 06:12; Admin Dose 2 MG; Start 11/26/18 at 18:00 Hydralazine HCl (Apresoline) 25 mg Q8 PO ; Start 11/26/18 at 22:00 Assessment/Plan Chief Complaint/Hosp Course 78-year-old male was admitted because of lethargy and difficulty breathing. Troponins were high. Attempts by the nursing staff to insert a Ballard catheter were not successful. He does have phimosis. I did insert a 16 [place] Ballard catheter for him and that is draining well. 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 His urine output has been very low and it has improved . His creatinine did go up to 3.47. Urologically keep the Ballard catheter in to monitor his urine output and especially that he is very weak. MARILEE CHAVEZ MD Nov 28, 2018 12:46
--- NOTE | 2018-11-28 13:02 | CONS ---
Date/Time of Note Date/Time of Note DATE: 11/28/18 TIME: 12:49 Consult Date/Type/Reason Admit Date/Time Nov 23, 2018 at 22:01 Initial Consult Date 11/25/18 Type of Consultation: Pulm/CCM Requesting Provider: NAYANA GARCIA Objective Vital Signs Date Temp Pulse Resp B/P (MAP) Pulse Ox O2 O2 Flow FiO2 Time Delivery Rate 11/28/18 97.6 66 16 114/54 95 11:30 (74) 11/28/18 35 09:15 11/28/18 4.0 06:10 11/27/18 Nasal 20:00 Cannula Intake and Output 11/27/18 11/27/18 11/28/18 1414:59 22:59 06:59 IntakeIntake Total 150 ml 60 ml OutputOutput Total 800 ml 550 ml BalanceBalance -650 ml -490 ml Exam HEENT: Neck supple; + JVD; no LAD CVS: Irreg irreg, S1 and S2 CHEST: Bilateral rales ABD: Soft, NT, + BS EXT: No c/c; + edema NEURO: Confused; not able to follow commands. Moves all extremities. Results/Medications Result Diagram: 11/27/18 0459 11/27/18 0459 Results 24 hrs Laboratory Tests Test 11/27/18 13:40 11/28/18 05:00 Bedside Glucose 138 Blood Gas Specimen Source Blood arterial Arterial Blood Date Drawn 11/28/2018 5:00:03 AM Arterial Blood pH (Temp corrected) 7.192 *L Arterial Blood pCO2 (Temp correct) 68.7 H Arterial Blood pO2 (Temp corrected) 83.1 Arterial Blood HCO3 25.8 Arterial Blood Base Excess -3.3 L Arterial Blood Oxygen Saturation 94.4 L Nilson Test ACCEPTAB Arterial Blood Gas Puncture Site Right Radial Arterial Blood Carboxyhemoglobin 1.6 Arterial Blood Methemoglobin 0.3 Blood Gas A-a O2 Differential 72.0 H Oxyhemoglobin Percent 92.6 L Blood Gas Temperature 37.0 Blood Gas Modality NASAL CANNULA FiO2 33.0 Blood Gas Critical Value Read Back FRANCHESCA MAYER Blood Gas Notified Whom KM Blood Gas Notified Time 11/28/2018 5:12:15 AM Medications Current Medications Ondansetron HCl (Zofran Inj) 4 mg Q6H PRN IV NAUSEA AND/OR VOMITING; Start 11/23/18 at 22:30 Acetaminophen (Tylenol Liquid) 650 mg Q6H PRN PO PAIN LEVEL 1-3 OR FEVER; Start 11/23/18 at 22:30 Acetaminophen (Tylenol Supp) 650 mg Q4H PRN [place] PAIN LEVEL 1-3 OR FEVER; Start 11/23/18 at 22:30 Lorazepam (Ativan) 0.5 mg Q4H PRN IV ANXIETY; Start 11/23/18 at 22:30 Atorvastatin Calcium (Lipitor) 20 mg HS PO Last administered on 11/27/18 21:05; Admin Dose 20 MG; Start 11/24/18 at 21:00 Albuterol/ Ipratropium (Duoneb) 3 ml Q4H RESP THERAPY PRN HHN SHORTNESS OF BREATH; Start 11/24/18 at 09:00 Aripiprazole (Abilify) 5 mg DAILY PO Last administered on 11/28/18 08:54; Admin Dose 5 MG; Start 11/24/18 at 09:30 Digoxin (Digoxin) 0.25 mg DAILY@1300 PO Last administered on 11/26/18 13:41; Admin Dose 0.25 MG; Start 11/24/18 at 13:00; Status Hold Escitalopram Oxalate (Lexapro) 20 mg DAILY PO Last administered on 11/28/18 08:53; Admin Dose 20 MG; Start 11/24/18 at 09:30 Furosemide (Lasix) 80 mg DAILY@0600 PO Last administered on 11/24/18 10:01; Admin Dose 80 MG; Start 11/24/18 at 09:30; Status Hold Loratadine (Claritin) 10 mg DAILY PO Last administered on 11/28/18 08:53; Admin Dose 10 MG; Start 11/24/18 at 10:00 Multivitamins Therapeutic (Theragran) 1 tab DAILY PO Last administered on 11/28/18 08:54; Admin Dose 1 TAB; Start 11/24/18 at 09:30 Potassium Chloride (Micro-K) 8 meq DAILY PO Last administered on 11/24/18 10:12; Admin Dose 8 MEQ; Start 11/24/18 at 10:00; Status Hold Tamsulosin HCl (Flomax) 0.4 mg HS PO Last administered on 11/27/18 21:05; Admin Dose 0.4 MG; Start 11/24/18 at 21:00 Calcium/Vitamin D (Oyster Shell/ Vit-D (500/200)) 1 tab DAILY PO Last administered on 11/28/18at 08:53; Admin Dose 1 TAB; Start 11/24/18 at 09:30 Aspirin (Ecotrin) 325 mg DAILY PO Last administered on 11/28/18at 08:54; Admin Dose 325 MG; Start 11/25/18 at 09:00 Metoprolol Tartrate (Lopressor) 5 mg Q4H PRN IV HR>110 Hold SBP<100; Start 11/24/18 at 11:00 Pantoprazole (Protonix Tab) 40 mg DAILY@06 PO Last administered on 11/28/18at 06:12; Admin Dose 40 MG; Start 11/25/18 at 06:00 Ferric Sodium Gluconate Complex 125 mg/Sodium Chloride 110 ml @ 110 mls/hr DAILY@1300 IVPB Last administered on 11/27/18at 13:41; Admin Dose 110 MLS/HR; Start 11/25/18 at 13:00; Stop 11/29/18 at 13:59 Atenolol (Tenormin) 25 mg DAILY PO Last administered on 11/28/18at 08:53; Admin Dose 25 MG; Start 11/25/18 at 14:00 Diltiazem HCl (Cardizem Sr) 120 mg DAILY PO ; Start 11/25/18 at 14:00; Status Hold Cefepime HCl 50 ml @ 100 mls/hr Q24H IVPB Last administered on 11/28/18at 12:19; Admin Dose 100 MLS/HR; Start 11/26/18 at 12:00 IV Flush (NS 10 ml) 10 ml PRN PRN IV IV PROTOCOL; Start 11/25/18 at 16:00 Bumetanide (Bumex) 2 mg BID DIURETICS PO Last administered on 11/28/18at 06:12; Admin Dose 2 MG; Start 11/26/18 at 18:00 Hydralazine HCl (Apresoline) 25 mg Q8 PO ; Start 11/26/18 at 22:00 Assessment/Plan Additional Assessment/Plan IMP: 1. Acute hypoxemic/hypercapnic respiratory failure--most likely due to volume overload +/- pneumonia 2. Sigmoid mass, presumed colon cancer with recent severe anemia. 3. Non-ST elevation myocardial infarction. 4. Atrial fibrillation with rapid ventricular response, now rate controlled 5. ARF 6. Anemia RECS: 1. Worsening clinical status, mental status, and acute hypercapnic respiratory failure require transfer to the ICU 2. Continue BiPAP 3. Stat labs/ABG on BiPAP 4. Will likely require HD sooner than later--will discuss with Renal. 5. Continue bumex gtt for now Case D/W family in detail. Case D/W RN and ICU advanced registered nurse. Orders placed to transfer to the ICU. 40 min cc time spent KATHY HUTCHINSON MD Nov 28, 2018 13:02
--- NOTE | 2018-11-28 13:15 | CONS ---
Date/Time of Note Date/Time of Note DATE: 11/28/18 TIME: 13:13 Assessment/Plan Assessment/Plan Assessment/Plan 1. Non-ST elevation myocardial infarction, currently down trending cardiac enzymes likely a type 2 demand infarct in the setting of fevers, hypercarbic respiratory failure.-downtrended cardiac enzymes. NO cp. Echo this admit 11/24 with NL EF 55% - LHC not done with increased Cr - con't med rx now. Pt now with confusion and increased hypoxia -going to ICU. No new episodes of a. fib - sinus momo noted. 2. Abnormal electrocardiogram- LHC when Cr satble - now deferred 3. Right bundle branch block- chronic 4. Colonic mass- defer to PMD. 5. Anemia- con't to follow - blood rX as needed 6. Renal failure-worsening - renal team follows avoid nephrotoxic meds - responded to diuresis with increased urinre output 7. Leukocytosis- on anti-bx now 8. Coagulopathy. 9. Sepsis. 10. Atrial fibrillation-now in SR - rate controlled - momo noted, with hypoxia Result Diagram: 11/27/18 0459 11/27/18 0459 Results 24hrs Laboratory Tests Test 11/27/18 13:40 11/28/18 05:00 Bedside Glucose 138 Blood Gas Specimen Source Blood arterial Arterial Blood Date Drawn 11/28/2018 5:00:03 AM Arterial Blood pH (Temp corrected) 7.192 *L Arterial Blood pCO2 (Temp correct) 68.7 H Arterial Blood pO2 (Temp corrected) 83.1 Arterial Blood HCO3 25.8 Arterial Blood Base Excess -3.3 L Arterial Blood Oxygen Saturation 94.4 L Nilson Test ACCEPTAB Arterial Blood Gas Puncture Site Right Radial Arterial Blood Carboxyhemoglobin 1.6 Arterial Blood Methemoglobin 0.3 Blood Gas A-a O2 Differential 72.0 H Oxyhemoglobin Percent 92.6 L Blood Gas Temperature 37.0 Blood Gas Modality NASAL CANNULA FiO2 33.0 Blood Gas Critical Value Read Back FRANCHESCA MAYER Blood Gas Notified Whom KM Blood Gas Notified Time 11/28/2018 5:12:15 AM Consultation Date/Type/Reason Admit Date/Time Nov 23, 2018 at 22:01 Initial Consult Date 11/25/18 Requesting Provider: NAYANA GARCIA 24 HR Interval Summary Free Text/Dictation Pt now with confusion and increased hypoxia -going to ICU. No new episodes of a. fib - sinus momo noted. ROS: No fever, no chills, no nausea, no vomiting, no diarrhea/constipation - per nurse, CONFUSED + SOB Exam/Review of Systems Vital Signs Vitals Vital Signs Date Temp Pulse Resp B/P (MAP) Pulse Ox O2 O2 Flow FiO2 Time Delivery Rate 11/28/18 97.6 66 16 114/54 95 11:30 (74) 11/28/18 35 09:15 11/28/18 4.0 06:10 11/27/18 Nasal 20:00 Cannula Intake and Output 11/27/18 11/27/18 11/28/18 1515:00 23:00 07:00 IntakeIntake Total 150 ml 60 ml OutputOutput Total 800 ml 550 ml BalanceBalance -650 ml -490 ml Exam General: WN/WD/NAD, AOx confused HEENT: Unicetric/atraumatic/EOMI (does not follow commands) - BiPAP on NECK: JVD elevated, no thyromegaly Lymph: no lymphadenopathy HEART: regular with no S3, II/ systolic murmur at apex LUNGS: Coarse sounds ABD: soft, NT, ND, +BS : Intact Neuro: non focal SKIN: chronic changes EXT: trace edema Medications Medications Current Medications Ondansetron HCl (Zofran Inj) 4 mg Q6H PRN IV NAUSEA AND/OR VOMITING; Start 11/23/18 at 22:30 Acetaminophen (Tylenol Liquid) 650 mg Q6H PRN PO PAIN LEVEL 1-3 OR FEVER; Sta rt 11/23/18 at 22:30 Acetaminophen (Tylenol Supp) 650 mg Q4H PRN [place] PAIN LEVEL 1-3 OR FEVER; Start 11/23/18 at 22:30 Lorazepam (Ativan) 0.5 mg Q4H PRN IV ANXIETY; Start 11/23/18 at 22:30 Atorvastatin Calcium (Lipitor) 20 mg HS PO Last administered on 11/27/18at 21:05; Admin Dose 20 MG; Start 11/24/18 at 21:00 Albuterol/ Ipratropium (Duoneb) 3 ml Q4H RESP THERAPY PRN HHN SHORTNESS OF BREATH; Start 11/24/18 at 09:00 Aripiprazole (Abilify) 5 mg DAILY PO Last administered on 11/28/18 08:54; Admin Dose 5 MG; Start 11/24/18 at 09:30 Digoxin (Digoxin) 0.25 mg DAILY@1300 PO Last administered on 11/26/18 13:41; Admin Dose 0.25 MG; Start 11/24/18 at 13:00; Status Hold Escitalopram Oxalate (Lexapro) 20 mg DAILY PO Last administered on 11/28/18 08:53; Admin Dose 20 MG; Start 11/24/18 at 09:30 Furosemide (Lasix) 80 mg DAILY@0600 PO Last administered on 11/24/18 10:01; Admin Dose 80 MG; Start 11/24/18 at 09:30; Status Hold Loratadine (Claritin) 10 mg DAILY PO Last administered on 11/28/18 08:53; Admin Dose 10 MG; Start 11/24/18 at 10:00 Multivitamins Therapeutic (Theragran) 1 tab DAILY PO Last administered on 11/28/18 08:54; Admin Dose 1 TAB; Start 11/24/18 at 09:30 Potassium Chloride (Micro-K) 8 meq DAILY PO Last administered on 11/24/18 10:12; Admin Dose 8 MEQ; Start 11/24/18 at 10:00; Status Hold Tamsulosin HCl (Flomax) 0.4 mg HS PO Last administered on 11/27/18 21:05; Admin Dose 0.4 MG; Start 11/24/18 at 21:00 Calcium/Vitamin D (Oyster Shell/ Vit-D (500/200)) 1 tab DAILY PO Last admini stered on 11/28/18 08:53; Admin Dose 1 TAB; Start 11/24/18 at 09:30 Aspirin (Ecotrin) 325 mg DAILY PO Last administered on 11/28/18 08:54; Admin Dose 325 MG; Start 11/25/18 at 09:00 Metoprolol Tartrate (Lopressor) 5 mg Q4H PRN IV HR>110 Hold SBP<100; Start 11/24/18 at 11:00 Pantoprazole (Protonix Tab) 40 mg DAILY@06 PO Last administered on 11/28/18 06:12; Admin Dose 40 MG; Start 11/25/18 at 06:00 Ferric Sodium Gluconate Complex 125 mg/Sodium Chloride 110 ml @ 110 mls/hr DAILY@1300 IVPB Last administered on 11/27/18at 13:41; Admin Dose 110 MLS/HR; Start 11/25/18 at 13:00; Stop 11/29/18 at 13:59 Atenolol (Tenormin) 25 mg DAILY PO Last administered on 11/28/18at 08:53; Admin Dose 25 MG; Start 11/25/18 at 14:00 Diltiazem HCl (Cardizem Sr) 120 mg DAILY PO ; Start 11/25/18 at 14:00; Status Hold Cefepime HCl 50 ml @ 100 mls/hr Q24H IVPB Last administered on 11/28/18at 12:19; Admin Dose 100 MLS/HR; Start 11/26/18 at 12:00 IV Flush (NS 10 ml) 10 ml PRN PRN IV IV PROTOCOL; Start 11/25/18 at 16:00 Bumetanide (Bumex) 2 mg BID DIURETICS PO Last administered on 11/28/18at 06:12; Admin Dose 2 MG; Start 11/26/18 at 18:00 Hydralazine HCl (Apresoline) 25 mg Q8 PO ; Start 11/26/18 at 22:00 SCARLET HARDWICK MD Nov 28, 2018 13:15
--- NOTE | 2018-11-28 13:25 | NUR ---
Patient with worsening clinical status, mental status, and acute hypercapnic respiratory failure. Patient currently on BiPap. Dr. Leong placed order to transfer to the ICU. Called son Ang [phone], he is aware of transfer to room ICU room 116. Report given to Red MAYER.
[2018-11-28] MEDS: SOD FERRIC GLUC COMPLX 125 MG in SOD CHLORIDE 0.9% 100 ML IVPB SCH (13:29)
--- NOTE | 2018-11-28 15:34 | CONS ---
Date/Time of Note Date/Time of Note DATE: 11/28/18 TIME: 15:34 Assessment/Plan Assessment/Plan Assessment/Plan 1. Oliguric acute on chronic renal failure due to Sepsis and Hemodynamics + obstructive uropathy 2. atrial fibrillation with RVR 3. acute hypoxemic and hypercapnic resp failure due to PNA - on BIPAP 4. Sepsis 5. Positive troponin 6. BPH on flomax 7. Colon CA Plan: BUN/Cr 84/3.1- pt condition deteriorated, high PCO2- transferred to ICU For acute hypercapnic resp failure - Electrolytes stable today, U/O 1.3 L in last 24 hr, continue bumex 1 mg IV BID , Pulmoanry has been following, - Discussed with son about in details- they want to keep pt full code and want to do HD if needed Family want to know about staging for colon CA s/p Urology consult and Ballard placement will follow up Result Diagram: 11/28/18 1333 11/28/18 1333 Results 24hrs Laboratory Tests Test 11/28/18 05:00 11/28/18 13:02 11/28/18 13:33 Blood Gas Specimen Blood arterial Blood arterial Source Arterial Blood Date 11/28/2018 5:00:03 AM 11/28/2018 3:12:30 PM Drawn Arterial Blood pH 7.192 *L 7.249 *L (Temp corrected) Arterial Blood pCO2 68.7 H 62.2 H (Temp correct) Arterial Blood pO2 83.1 88.9 (Temp corrected) Arterial Blood HCO3 25.8 26.6 H Arterial Blood Base -3.3 L -1.4 Excess Arterial Blood 94.4 L 95.9 Oxygen Saturation Nilson Test ACCEPTAB ACCEPTAB Arterial Blood Gas Right Radial Right Radial Puncture Site Arterial 1.6 1.2 Blood Carboxyhemoglobin Arterial Blood 0.3 0.4 Methemoglobin Blood Gas A-a O2 72.0 H 88.3 H Differential Oxyhemoglobin Percent 92.6 L 94.4 Blood Gas Temperature 37.0 37.0 Blood Gas Modality NASAL CANNULA MASK - BIPAP FiO2 33.0 35.0 Blood Gas Critical Value FRANCHESCA Reeves RN Read Back Blood Gas Notified Whom KM AT Blood Gas Notified Time 11/28/2018 5:12:15 AM 11/28/2018 3:24:10 PM Blood Gas Respiration 12.0 Rate Blood Gas Actual 20 Respiration Rate Blood Gas Pressure 10 Support Blood Gas IPAP/EPAP 16/6 Ratio White Blood Count 7.7 Red Blood Count 4.22 L Hemoglobin 8.9 L Hematocrit 34.8 L Mean Corpuscular Volume 82.5 Mean Corpuscular 21.1 L Hemoglobin Mean Corpuscular 25.6 L Hemoglobin Concent Red Cell Distribution 30.9 H Width Platelet Count 161 Mean Platelet Volume Immature Granulocytes % 1.000 H Neutrophils % 78.9 H Lymphocytes % 8.6 L Monocytes % 6.8 Eosinophils % 4.0 Basophils % 0.7 Nucleated Red Blood 0.0 Cells % Immature Granulocytes # 0.080 H Neutrophils # 6.0 Lymphocytes # 0.7 L Monocytes # 0.5 Eosinophils # 0.3 Basophils # 0.1 Nucleated Red Blood 0.0 Cells # Sodium Level 147 H Potassium Level 3.8 Chloride Level 104 Carbon Dioxide Level 28 Anion Gap 15 H Blood Urea Nitrogen 84 H Creatinine 3.10 H Est Glomerular Filtrat Rate mL/min Glucose Level 82 Calcium Level 8.7 Total Bilirubin 0.1 L Direct Bilirubin 0.00 Indirect Bilirubin 0.1 Aspartate Amino 22 Transf (AST/SGOT) Alanine 36 Aminotransferase (ALT/SG PT) Alkaline Phosphatase 48 Total Protein 6.4 Albumin 3.3 Globulin 3.10 Albumin/Globulin Ratio 1.06 Consultation Date/Type/Reason Admit Date/Time Nov 23, 2018 at 22:01 Initial Consult Date 11/24/18 Type of Consult NEPHROLOGY Requesting Provider: NAYANA GARCIA 24 HR Interval Summary Free Text/Dictation pt transferred to ICU on BIPAP, BP labile, still SOB , U/O 1.3 liter Exam/Review of Systems Vital Signs Vitals Vital Signs Date Temp Pulse Resp B/P (MAP) Pulse Ox O2 O2 Flow FiO2 Time Delivery Rate 11/28/18 97.7 74 13 121/55 99 BIPAP 14:00 (77) 11/28/18 35 13:50 11/28/18 4.0 06:10 Intake and Output 11/27/18 11/27/18 11/28/18 1515:00 23:00 07:00 IntakeIntake Total 150 ml 60 ml OutputOutput Total 800 ml 550 ml BalanceBalance -650 ml -490 ml Exam Constitutional: moderate distress, confused disoriented on BIPAP Respiratory: Bilateral coarse BS+, basilar crackles Cardiovascular: regular rate and rhythm, nl pulses Gastrointestinal: soft, non-tender Musculoskeletal: nl extremities to inspection, muscle weakness, swelling Neurological: confused, lethargic Medications Medications Current Medications Ondansetron HCl (Zofran Inj) 4 mg Q6H PRN IV NAUSEA AND/OR VOMITING; Start 11/23/18 at 22:30 Acetaminophen (Tylenol Liquid) 650 mg Q6H PRN PO PAIN LEVEL 1-3 OR FEVER; Start 11/23/18 at 22:30 Acetaminophen (Tylenol Supp) 650 mg Q4H PRN OR PAIN LEVEL 1-3 OR FEVER; Start 11/23/18 at 22:30 Lorazepam (Ativan) 0.5 mg Q4H PRN IV ANXIETY; Start 11/23/18 at 22:30 Atorvastatin Calcium (Lipitor) 20 mg HS PO Last administered on 11/27/18at 21:05; Admin Dose 20 MG; Start 11/24/18 at 21:00 Albuterol/ Ipratropium (Duoneb) 3 ml Q4H RESP THERAPY PRN HHN SHORTNESS OF BREATH; Start 11/24/18 at 09:00 Aripiprazole (Abilify) 5 mg DAILY PO Last administered on 11/28/18 08:54; Admin Dose 5 MG; Start 11/24/18 at 09:30 Digoxin (Digoxin) 0.25 mg DAILY@1300 PO Last administered on 11/26/18at 13:41; Admin Dose 0.25 MG; Start 11/24/18 at 13:00; Status Hold Escitalopram Oxalate (Lexapro) 20 mg DAILY PO Last administered on 11/28/18 08:53; Admin Dose 20 MG; Start 11/24/18 at 09:30 Furosemide (Lasix) 80 mg DAILY@0600 PO Last administered on 11/24/18 10:01; Admin Dose 80 MG; Start 11/24/18 at 09:30; Status Hold Loratadine (Claritin) 10 mg DAILY PO Last administered on 11/28/18 08:53; Admin Dose 10 MG; Start 11/24/18 at 10:00 Multivitamins Therapeutic (Theragran) 1 tab DAILY PO Last administered on 11/28/18at 08:54; Admin Dose 1 TAB; Start 11/24/18 at 09:30 Potassium Chloride (Micro-K) 8 meq DAILY PO Last administered on 11/24/18at 10:1 2; Admin Dose 8 MEQ; Start 11/24/18 at 10:00; Status Hold Tamsulosin HCl (Flomax) 0.4 mg HS PO Last administered on 11/27/18at 21:05; Admin Dose 0.4 MG; Start 11/24/18 at 21:00 Calcium/Vitamin D (Oyster Shell/ Vit-D (500/200)) 1 tab DAILY PO Last administered on 11/28/18at 08:53; Admin Dose 1 TAB; Start 11/24/18 at 09:30 Aspirin (Ecotrin) 325 mg DAILY PO Last administered on 11/28/18 08:54; Admin Dose 325 MG; Start 11/25/18 at 09:00 Metoprolol Tartrate (Lopressor) 5 mg Q4H PRN IV HR>110 Hold SBP<100; Start 11/24/18 at 11:00 Pantoprazole (Protonix Tab) 40 mg DAILY@06 PO Last administered on 11/28/18at 06:12; Admin Dose 40 MG; Start 11/25/18 at 06:00 Ferric Sodium Gluconate Complex 125 mg/Sodium Chloride 110 ml @ 110 mls/hr DAILY@1300 IVPB Last administered on 11/28/18at 13:29; Admin Dose 110 MLS/HR; Start 11/25/18 at 13:00; Stop 11/29/18 at 13:59 Atenolol (Tenormin) 25 mg DAILY PO Last administered on 11/28/18at 08:53; Admin Dose 25 MG; Start 11/25/18 at 14:00 Diltiazem HCl (Cardizem Sr) 120 mg DAILY PO ; Start 11/25/18 at 14:00; Status Hold Cefepime HCl 50 ml @ 100 mls/hr Q24H IVPB Last administered on 11/28/18at 12:19; Admin Dose 100 MLS/HR; Start 11/26/18 at 12:00 IV Flush (NS 10 ml) 10 ml PRN PRN IV IV PROTOCOL; Start 11/25/18 at 16:00 Hydralazine HCl (Apresoline) 25 mg Q8 PO ; Start 11/26/18 at 22:00 Bumetanide (Bumex) 2 mg BID DIURETICS IV ; Start 11/28/18 at 18:00 RENAN HERNANDEZ MD Nov 28, 2018 15:34
[2018-11-28] MEDS: LORAZEPAM 4 MG/ML VIAL IV PRN (17:08)
[2018-11-28] MEDS: BUMETANIDE 1 MG INJ IV SCH (18:11)
--- NOTE | 2018-11-28 18:43 | CONS ---
DATE OF ADMISSION: 11/23/2018 DATE OF CONSULTATION: The patient is in intensive care unit because of congestive heart failure. She is on a CPAP. The pa shiva has history of a sigmoid carcinoma and surgically is not in a stable situation and had to under go major surgery, hence the consensus is that of ____ of a sigmoid stent. PHYSICAL EXAMINATION: GENERAL: The patient is dyspneic and is on a CPAP. VITAL SIGNS: Pulse is 76, blood pressure is 122/68. CARDIOVASCULAR: Normal heart sounds. RESPIRATORY: Rales heard bilaterally in both sides of the lungs. ABDOMEN: Unremarkable. LABORATORY WORKUP: Hemoglobin is 8.9. CLINICAL IMPRESSION: 1. The patient currently is in congestive heart failure. 2. 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 PLAN: At this time, recommend a sigmoid stent when the patient is stable. Once again, doctor, thank you for this consultation. Dictated By: FRANCE PAREDES/NTS Conf#: [id number] DID#: [id number] CC: NAYANA GARCIA; AJ PIERRE MD;*End*
--- NOTE | 2018-11-28 19:34 | NUR ---
END OF SHIFT SUMMARY PT WAS TRANSFERRED TO ICU FOR EXTRA MONITORING. PT HAD ABG TAKEN UPON ARRIVAL, CRITICAL BUT SHOWING IMPROVEMENT. MD MORRIS NOTIFIED. BIPAP SETTINGS WERE CHANGED. PT HAS BEEN STABLE THIS SHIFT. PT IS BEING DIURESE. NO OTHER SIGNIFICANT EVENS OCCURRED. ALL OF PT NEEDS CARED FOR. ENDORSING CARE TO PIPE TURNER RN.
[2018-11-28] MEDS: TAMSULOSIN (SR) 0.4 MG CAP PO SCH (20:28)
[2018-11-28] MEDS: ATORVASTATIN 20 MG TAB PO SCH (20:28)
[2018-11-29] VITALS (36 sets, daily range): BP systolic 100–154; BP diastolic 43–111; PULSE 72–150; RESP 15–26
[2018-11-29] MEDS: PANTOPRAZOLE 40 MG INJ IV SCH (05:07)
[2018-11-29] MEDS: BUMETANIDE 1 MG INJ IV SCH ×2 (05:07→18:35)
--- NOTE | 2018-11-29 05:57 | NUR ---
Dr. Farias notified of 0500 ABG results, and phos 5.6 received orders to continue BIPAP. Will continue to monitor patient.
--- NOTE | 2018-11-29 06:38 | NUR ---
EOSS: Patient alert, oriented x1, opens eyes to voice, withdraws from pain, yet appears lethargic. Switched patient off of BIPAP to 4L O2 via NC, patient sating >92%, RR would periodically decrease, NC changed to 8L Simple mask. Patient sating >95%, yet RR decreased again to apneic, but patient has visible respirations. Patient was then placed back on BIPAP 16/6 RATE 18, FIO2 30%, ABG'S drawn. Placed patient on NPO status, as he remains too lethargic to swallow. Ballard catheter in place, patent, draining >1700 cc on PM shift.
[2018-11-29] MEDS: BALSAM PERU/CASTOR OIL 60 GM TUBE TOP SCH ×2 (08:14→21:44)
--- NOTE | 2018-11-29 08:14 | NUR ---
Per chart review, pt transferred out of ICU 11/26/17 and readmitted to ICU 11/28/17 secondary to respiratory status and change in mentation. Patient will require new orders to continue skilled inpatient PT when medically appropriate.
[2018-11-29] MEDS: LORATADINE 10 MG TAB PO SCH (09:00)
[2018-11-29] MEDS: MULTIVITAMINS THERAPEUTIC TAB PO SCH (09:00)
[2018-11-29] MEDS: ASPIRIN (EC) 325 MG TAB PO SCH (09:00)
[2018-11-29] MEDS: ESCITALOPRAM 10 MG TAB PO SCH (09:00)
[2018-11-29] MEDS: CALCIUM/VITAMIN D (500/200) TAB PO SCH (09:00)
[2018-11-29] MEDS: ATENOLOL 50 MG TAB PO SCH (09:00)
[2018-11-29] MEDS: ARIPIPRAZOLE 5 MG TAB PO SCH (09:00)
--- NOTE | 2018-11-29 09:01 | NUR ---
PT currently on BIPAP s/p high CO2 and critically low PH levels. ST will f/u with pt as schedule permits.
[2018-11-29] MEDS: LORAZEPAM 4 MG/ML VIAL IV PRN ×2 (09:29→20:00)
--- NOTE | 2018-11-29 10:00 | CONS ---
Date/Time of Note Date/Time of Note DATE: 11/29/18 TIME: 09:59 Consult Date/Type/Reason Admit Date/Time Nov 23, 2018 at 22:01 Initial Consult Date 11/25/18 Type of Consultation: Pulm/CCM Requesting Provider: NAYANA GARCIA Subjective Remains agitated and confused requiring noninvasive positive pressure ventilation. Objective Vital Signs Date Temp Pulse Resp B/P (MAP) Pulse Ox O2 O2 Flow FiO2 Time Delivery Rate 11/29/18 83 08:00 11/29/18 98.4 24 105/55 97 BIPAP 08:00 (72) 11/29/18 30 05:26 11/28/18 8.0 23:00 Intake and Output 11/28/18 11/28/18 11/29/18 1515:00 23:00 07:00 IntakeIntake Total 160 ml OutputOutput Total 1350 ml 1517 ml 1975 ml BalanceBalance -1190 ml -1517 ml -1975 ml Exam GENERAL: VITAL SIGNS: per chart NECK: Supple. No JVD or lymphadenopathy. CARDIAC EXAM: S1, S2. No added sounds or murmurs. CHEST: clear bilaterally, No added sounds, rales or wheezes ABDOMEN: Soft, nontender. No guarding or rebound. EXTREMITIES: No cyanosis, clubbing or edema. NEUROLOGIC: Generalized weakness. No focal deficits. Chronically ill- appearing gentleman on bilevel ventilation. Results/Medications Result Diagram: 11/29/18 0422 11/29/18 0422 Results 24 hrs Laboratory Tests Test 11/28/18 13:02 11/28/18 13:33 11/28/18 22:58 11/29/18 04:22 Blood Gas Blood arterial Blood arterial Specimen Source Arterial Blood 11/28/2018 3:12:30 11/29/2018 12:45:5 Date Drawn PM 0 AM Arterial Blood 7.249 *L 7.264 *L pH (Temp corrected) Arterial Blood 62.2 H 67.8 H pCO2 (Temp correct) Arterial Blood 88.9 64.2 L pO2 (Temp corrected) Arterial Blood 26.6 H 30.0 H HCO3 Arterial Blood -1.4 1.7 Base Excess Arterial Blood 95.9 91.6 L Oxygen Saturatio n Nilson Test ACCEPTAB ACCEPTAB Arterial Blood Right Radial Right Radial Gas Puncture Site Arterial 1.2 1.4 Blood Carboxyhem oglobin Arterial Blood 0.4 0.4 Methemoglobin Blood Gas A-a O2 88.3 H 70.0 H Differential Oxyhemoglobin 94.4 90.0 L Percent Blood Gas 37.0 37.0 Temperature Blood Gas 12.0 16.0 Respiration Rate Blood Gas Actual 20 10 Respiration Rate Blood Gas MASK - BIPAP MASK - BIPAP Modality FiO2 35.0 30.0 Blood Gas 10 10 Pressure Support Blood Gas 08/05 16/ IPAP/EPAP Ratio Blood Gas CHENTE Payton RN Critical Value Read Back Blood Gas AT [facility] Notified Whom Blood Gas 11/28/2018 3:24:10 11/29/2018 12:59:1 Notified Time PM 9 AM White Blood 7.7 8.3 Count Red Blood Count 4.22 L 4.12 L Hemoglobin 8.9 L 8.7 L Hematocrit 34.8 L 33.8 L Mean Corpuscular 82.5 82.0 Volume Mean Corpuscular 21.1 L 21.1 L Hemoglobin Mean Corpuscular 25.6 L 25.7 L Hemoglobin Sonali nt Red Cell 30.9 H 31.3 H Distribution Width Platelet Count 161 179 Mean Platelet Volume Immature 1.000 H 0.800 H Granulocytes % Neutrophils % 78.9 H 79.6 H Lymphocytes % 8.6 L 7.3 L Monocytes % 6.8 7.3 Eosinophils % 4.0 4.3 Basophils % 0.7 0.7 Nucleated Red 0.0 0.0 Blood Cells % Immature 0.080 H 0.070 H Granulocytes # Neutrophils # 6.0 6.6 Lymphocytes # 0.7 L 0.6 L Monocytes # 0.5 0.6 Eosinophils # 0.3 0.4 Basophils # 0.1 0.1 Nucleated Red 0.0 0.0 Blood Cells # Sodium Level 147 H 149 H Potassium Level 3.8 3.9 Chloride Level 104 107 Carbon Dioxide 28 30 Level Anion Gap 15 H 12 Blood Urea 84 H 83 H Nitrogen Creatinine 3.10 H 2.51 H Est Glomerular Filtrat Rate mL/min Glucose Level 82 69 #L Calcium Level 8.7 8.9 Total Bilirubin 0.1 L 0.1 L Direct Bilirubin 0.00 0.00 Indirect 0.1 0.1 Bilirubin Aspartate Amino 22 22 Transf (AST/SGOT ) Alanine 36 36 Aminotransferase (ALT/SGPT) Alkaline 48 54 Phosphatase Total Protein 6.4 6.1 Albumin 3.3 3.2 L Globulin 3.10 2.90 Albumin/Globulin 1.06 1.10 Ratio Blood Gas Tidal 456.0 Volume Lactic Acid 1.0 Level Phosphorus Level 5.6 H Magnesium Level 2.3 Test 11/29/18 05:00 Blood Gas Blood arterial Specimen Source Arterial Blood 11/29/2018 4:55:09 Date Drawn AM Arterial Blood 7.290 *L pH (Temp corrected) Arterial Blood 66.3 H pCO2 (Temp correct) Arterial Blood 85.0 pO2 (Temp corrected) Arterial Blood 31.2 H HCO3 Arterial Blood 3.2 H Base Excess Arterial Blood 96.0 Oxygen Saturatio n Nilson Test N/A Arterial Blood Right Radial Gas Puncture Site Arterial 1.8 Blood Carboxyhem oglobin Arterial Blood 0.3 Methemoglobin Blood Gas A-a O2 87.5 H Differential Oxyhemoglobin 94.0 Percent Blood Gas 37.0 Temperature Blood Gas 18.0 Respiration Rate Blood Gas Actual 22 Respiration Rate Blood Gas MASK - BIPAP Modality FiO2 35.0 Blood Gas 16/6 IPAP/EPAP Ratio Blood Gas C.OH RN Critical Value Read Back Blood Gas S.H> Notified Whom Blood Gas 11/29/2018 5:15:56 Notified Time AM Medications Current Medications Ondansetron HCl (Zofran Inj) 4 mg Q6H PRN IV NAUSEA AND/OR VOMITING; Start 11/23/18 at 22:30 Acetaminophen (Tylenol Liquid) 650 mg Q6H PRN PO PAIN LEVEL 1-3 OR FEVER; Start 11/23/18 at 22:30 Acetaminophen (Tylenol Supp) 650 mg Q4H PRN [place] PAIN LEVEL 1-3 OR FEVER; Start 11/23/18 at 22:30 Lorazepam (Ativan) 0.5 mg Q4H PRN IV ANXIETY Last administered on 11/29/18at 09:29; Admin Dose 0.5 MG; Start 11/23/18 at 22:30 Atorvastatin Calcium (Lipitor) 20 mg HS PO Last administered on 11/27/18at 21:05; Admin Dose 20 MG; Start 11/24/18 at 21:00 Albuterol/ Ipratropium (Duoneb) 3 ml Q4H RESP THERAPY PRN HHN SHORTNESS OF BREATH; Start 11/24/18 at 09:00 Aripiprazole (Abilify) 5 mg DAILY PO Last administered on 11/28/18 08:54; Admin Dose 5 MG; Start 11/24/18 at 09:30 Digoxin (Digoxin) 0.25 mg DAILY@1300 PO Last administered on 11/26/18 13:41; Admin Dose 0.25 MG; Start 11/24/18 at 13:00; Status Hold Escitalopram Oxalate (Lexapro) 20 mg DAILY PO Last administered on 11/28/18 08:53; Admin Dose 20 MG; Start 11/24/18 at 09:30 Loratadine (Claritin) 10 mg DAILY PO Last administered on 11/28/18 08:53; Admin Dose 10 MG; Start 11/24/18 at 10:00 Multivitamins Therapeutic (Theragran) 1 tab DAILY PO Last administered on 11/28/18 08:54; Admin Dose 1 TAB; Start 11/24/18 at 09:30 Potassium Chloride (Micro-K) 8 meq DAILY PO Last administered on 11/24/18 10:12; Admin Dose 8 MEQ; Start 11/24/18 at 10:00; Status Hold Tamsulosin HCl (Flomax) 0.4 mg HS PO Last administered on 11/27/18 21:05; Admin Dose 0.4 MG; Start 11/24/18 at 21:00 Calcium/Vitamin D (Oyster Shell/ Vit-D (500/200)) 1 tab DAILY PO Last admini stered on 11/28/18 08:53; Admin Dose 1 TAB; Start 11/24/18 at 09:30 Aspirin (Ecotrin) 325 mg DAILY PO Last administered on 11/28/18 08:54; Admin Dose 325 MG; Start 11/25/18 at 09:00 Metoprolol Tartrate (Lopressor) 5 mg Q4H PRN IV HR>110 Hold SBP<100; Start 11/24/18 at 11:00 Ferric Sodium Gluconate Complex 125 mg/Sodium Chloride 110 ml @ 110 mls/hr DAILY@1300 IVPB Last administered on 11/28/18 13:29; Admin Dose 110 MLS/HR; Start 11/25/18 at 13:00; Stop 11/29/18 at 13:59 Atenolol (Tenormin) 25 mg DAILY PO Last administered on 11/28/18at 08:53; Admin Dose 25 MG; Start 11/25/18 at 14:00 Diltiazem HCl (Cardizem Sr) 120 mg DAILY PO ; Start 11/25/18 at 14:00; Status Hold Cefepime HCl 50 ml @ 100 mls/hr Q24H IVPB Last administered on 11/28/18at 12:19; Admin Dose 100 MLS/HR; Start 11/26/18 at 12:00 IV Flush (NS 10 ml) 10 ml PRN PRN IV IV PROTOCOL; Start 11/25/18 at 16:00 Hydralazine HCl (Apresoline) 25 mg Q8 PO ; Start 11/26/18 at 22:00 Bumetanide (Bumex) 2 mg BID DIURETICS IV Last administered on 11/29/18at 05:07; Admin Dose 2 MG; Start 11/28/18 at 18:00 Pantoprazole (Protonix Iv) 40 mg DAILY@06 IV Last administered on 11/29/18at 05:07; Admin Dose 40 MG; Start 11/29/18 at 06:00 Assessment/Plan Chief Complaint/Hosp Course IMP: 1. Acute hypoxemic/hypercapnic respiratory failure--most likely due to volume overload +/- pneumonia 2. Sigmoid mass, presumed colon cancer with recent severe anemia. 3. Non-ST elevation myocardial infarction. 4. Atrial fibrillation with rapid ventricular response, now rate controlled 5. ARF 6. Anemia RECS: 1. Worsening clinical status, mental status, and acute hypercapnic respiratory failure require transfer to the ICU 2. Continue BiPAP 3. Routine labs. Keep n.p.o. 4. Renal recommendations. 5. Continue diuretics. Case D/W family in detail. Critical care time 40 minutes JANNET BERG MD, [facility] Nov 29, 2018 10:00
--- NOTE | 2018-11-29 10:55 | CONS ---
Date/Time of Note Date/Time of Note DATE: 11/29/18 TIME: 10:50 Assessment/Plan Assessment/Plan Hospital Course IMPRESSION: 1. Non-ST elevation myocardial infarction, currently down trending cardiac enzymes likely a type 2 demand infarct in the setting of fevers, hypercarbic respiratory failure.-downtrended cardiac enzymes. NO cp. Echo this admit 11/24 with NL EF 55% 2. Abnormal electrocardiogram. 3. Right bundle branch block. 4. Colonic mass. 5. Anemia. 6. Renal failure-worsening 7. Leukocytosis. 8. Coagulopathy. 9. Sepsis. 10. Atrial fibrillation-now in SR 11.CHF-diastolic acute on chronic Recc: -ICU -Continue asa -Continue hydralazine/atenolol as tolerated -Continue broad spectrum abx's and f/u cx data -Continue Bumex -? HD -? surgery for removal mass/sigmoid stent Result Diagram: 11/29/18 0422 11/29/18 0422 Results 24hrs Laboratory Tests Test 11/28/18 13:02 11/28/18 13:33 11/28/18 22:58 11/29/18 04:22 Blood Gas Blood arterial Blood arterial Specimen Source Arterial Blood 11/28/2018 3:12:30 11/29/2018 12:45:5 Date Drawn PM 0 AM Arterial Blood 7.249 *L 7.264 *L pH (Temp corrected) Arterial Blood 62.2 H 67.8 H pCO2 (Temp correct) Arterial Blood 88.9 64.2 L pO2 (Temp corrected) Arterial Blood 26.6 H 30.0 H HCO3 Arterial Blood -1.4 1.7 Base Excess Arterial Blood 95.9 91.6 L Oxygen Saturatio n Nilson Test ACCEPTAB ACCEPTAB Arterial Blood Right Radial Right Radial Gas Puncture Site Arterial 1.2 1.4 Blood Carboxyhem oglobin Arterial Blood 0.4 0.4 Methemoglobin Blood Gas A-a O2 88.3 H 70.0 H Differential Oxyhemoglobin 94.4 90.0 L Percent Blood Gas 37.0 37.0 Temperature Blood Gas 12.0 16.0 Respiration Rate Blood Gas Actual 20 10 Respiration Rate Blood Gas MASK - BIPAP MASK - BIPAP Modality FiO2 35.0 30.0 Blood Gas 10 10 Pressure Support Blood Gas 08/05 16 IPAP/EPAP Ratio Blood Gas ELDRIDGE M LEYLA Patrick Oh RN Critical Value Read Back Blood Gas AT [facility] Notified Whom Blood Gas 11/28/2018 3:24:10 11/29/2018 12:59:1 Notified Time PM 9 AM White Blood 7.7 8.3 Count Red Blood Count 4.22 L 4.12 L Hemoglobin 8.9 L 8.7 L Hematocrit 34.8 L 33.8 L Mean Corpuscular 82.5 82.0 Volume Mean Corpuscular 21.1 L 21.1 L Hemoglobin Mean Corpuscular 25.6 L 25.7 L Hemoglobin Sonali nt Red Cell 30.9 H 31.3 H Distribution Width Platelet Count 161 179 Mean Platelet Volume Immature 1.000 H 0.800 H Granulocytes % Neutrophils % 78.9 H 79.6 H Lymphocytes % 8.6 L 7.3 L Monocytes % 6.8 7.3 Eosinophils % 4.0 4.3 Basophils % 0.7 0.7 Nucleated Red 0.0 0.0 Blood Cells % Immature 0.080 H 0.070 H Granulocytes # Neutrophils # 6.0 6.6 Lymphocytes # 0.7 L 0.6 L Monocytes # 0.5 0.6 Eosinophils # 0.3 0.4 Basophils # 0.1 0.1 Nucleated Red 0.0 0.0 Blood Cells # Sodium Level 147 H 149 H Potassium Level 3.8 3.9 Chloride Level 104 107 Carbon Dioxide 28 30 Level Anion Gap 15 H 12 Blood Urea 84 H 83 H Nitrogen Creatinine 3.10 H 2.51 H Est Glomerular Filtrat Rate mL/min Glucose Level 82 69 #L Calcium Level 8.7 8.9 Total Bilirubin 0.1 L 0.1 L Direct Bilirubin 0.00 0.00 Indirect 0.1 0.1 Bilirubin Aspartate Amino 22 22 Transf (AST/SGOT ) Alanine 36 36 Aminotransferase (ALT/SGPT) Alkaline 48 54 Phosphatase Total Protein 6.4 6.1 Albumin 3.3 3.2 L Globulin 3.10 2.90 Albumin/Globulin 1.06 1.10 Ratio Blood Gas Tidal 456.0 Volume Lactic Acid 1.0 Level Phosphorus Level 5.6 H Magnesium Level 2.3 Test 11/29/18 05:00 Blood Gas Blood arterial Specimen Source Arterial Blood 11/29/2018 4:55:09 Date Drawn AM Arterial Blood 7.290 *L pH (Temp corrected) Arterial Blood 66.3 H pCO2 (Temp correct) Arterial Blood 85.0 pO2 (Temp corrected) Arterial Blood 31.2 H HCO3 Arterial Blood 3.2 H Base Excess Arterial Blood 96.0 Oxygen Saturatio n Nilson Test N/A Arterial Blood Right Radial Gas Puncture Site Arterial 1.8 Blood Carboxyhem oglobin Arterial Blood 0.3 Methemoglobin Blood Gas A-a O2 87.5 H Differential Oxyhemoglobin 94.0 Percent Blood Gas 37.0 Temperature Blood Gas 18.0 Respiration Rate Blood Gas Actual 22 Respiration Rate Blood Gas MASK - BIPAP Modality FiO2 35.0 Blood Gas 16/6 IPAP/EPAP Ratio Blood Gas C.OH RN Critical Value Read Back Blood Gas S.H> Notified Whom Blood Gas 11/29/2018 5:15:56 Notified Time AM Consultation Date/Type/Reason Admit Date/Time Nov 23, 2018 at 22:01 Initial Consult Date 11/24/18 Type of Consult cardiology Reason for Consultation Nstemi Requesting Provider: NAYANA GARCIA Exam/Review of Systems Vital Signs Vitals Vital Signs Date Temp Pulse Resp B/P (MAP) Pulse Ox O2 O2 Flow FiO2 Time Delivery Rate 11/29/18 83 08:00 11/29/18 98.4 24 105/55 97 BIPAP 08:00 (72) 11/29/18 30 05:26 11/28/18 8.0 23:00 Intake and Output 11/28/18 11/28/18 11/29/18 1515:00 23:00 07:00 IntakeIntake Total 160 ml OutputOutput Total 1350 ml 1517 ml 1975 ml BalanceBalance -1190 ml -1517 ml -1975 ml Exam Review of Systems: CONSTITUTIONAL: No fevers, chills. PULMONARY: on BIPAP CARDIOVASCULAR: No chest pain/palpitations GASTROINTESTINAL: No nausea/vomiting. GENITOURINARY: No hematuria/dysuria. MUSCULOSKELETAL: No myagias/arthalgias. PSYCHIATRIC: The patient denies depression. NEUROLOGIC: No weakness Constitutional: alert Psych: no complaints Head: normocephalic ENMT: mucosa pink and moist Neck: supple, jvd (9 cm water) Respiratory: diminished breath sounds Cardiovascular: regular rate and rhythm Gastrointestinal: soft, non-tender Musculoskeletal: muscle tone (normal) Extremities: edema (trace/B) Neurological: other (No focal deficits) Medications Medications Current Medications Ondansetron HCl (Zofran Inj) 4 mg Q6H PRN IV NAUSEA AND/OR VOMITING; Start 11/23/18 at 22:30 Acetaminophen (Tylenol Liquid) 650 mg Q6H PRN PO PAIN LEVEL 1-3 OR FEVER; Start 11/23/18 at 22:30 Acetaminophen (Tylenol Supp) 650 mg Q4H PRN [place] PAIN LEVEL 1-3 OR FEVER; Start 11/23/18 at 22:30 Lorazepam (Ativan) 0.5 mg Q4H PRN IV ANXIETY Last administered on 11/29/18 09:29; Admin Dose 0.5 MG; Start 11/23/18 at 22:30 Atorvastatin Calcium (Lipitor) 20 mg HS PO Last administered on 11/27/18 21:05; Admin Dose 20 MG; Start 11/24/18 at 21:00 Albuterol/ Ipratropium (Duoneb) 3 ml Q4H RESP THERAPY PRN HHN SHORTNESS OF BREATH; Start 11/24/18 at 09:00 Aripiprazole (Abilify) 5 mg DAILY PO Last administered on 11/28/18 08:54; Admin Dose 5 MG; Start 11/24/18 at 09:30 Digoxin (Digoxin) 0.25 mg DAILY@1300 PO Last administered on 11/26/18 13:41; Admin Dose 0.25 MG; Start 11/24/18 at 13:00; Status Hold Escitalopram Oxalate (Lexapro) 20 mg DAILY PO Last administered on 11/28/18 08:53; Admin Dose 20 MG; Start 11/24/18 at 09:30 Loratadine (Claritin) 10 mg DAILY PO Last administered on 11/28/18 08:53; Admin Dose 10 MG; Start 11/24/18 at 10:00 Multivitamins Therapeutic (Theragran) 1 tab DAILY PO Last administered on 11/28/18 08:54; Admin Dose 1 TAB; Start 11/24/18 at 09:30 Potassium Chloride (Micro-K) 8 meq DAILY PO Last administered on 11/24/18 10:12; Admin Dose 8 MEQ; Start 11/24/18 at 10:00; Status Hold Tamsulosin HCl (Flomax) 0.4 mg HS PO Last administered on 1/5/19at 21:05; Admin Dose 0.4 MG; Start 11/24/18 at 21:00 Calcium/Vitamin D (Oyster Shell/ Vit-D (500/200)) 1 tab DAILY PO Last administered on 11/28/18at 08:53; Admin Dose 1 TAB; Start 11/24/18 at 09:30 Aspirin (Ecotrin) 325 mg DAILY PO Last administered on 11/28/18at 08:54; Admin Dose 325 MG; Start 11/25/18 at 09:00 Metoprolol Tartrate (Lopressor) 5 mg Q4H PRN IV HR>110 Hold SBP<100; Start 11/24/18 at 11:00 Ferric Sodium Gluconate Complex 125 mg/Sodium Chloride 110 ml @ 110 mls/hr DAILY@1300 IVPB Last administered on 11/28/18at 13:29; Admin Dose 110 MLS/HR; Start 11/25/18 at 13:00; Stop 11/29/18 at 13:59 Atenolol (Tenormin) 25 mg DAILY PO Last administered on 11/28/18at 08:53; Admin Dose 25 MG; Start 11/25/18 at 14:00 Diltiazem HCl (Cardizem Sr) 120 mg DAILY PO ; Start 11/25/18 at 14:00; Status Hold Cefepime HCl 50 ml @ 100 mls/hr Q24H IVPB Last administered on 11/28/18at 12:19; Admin Dose 100 MLS/HR; Start 11/26/18 at 12:00 IV Flush (NS 10 ml) 10 ml PRN PRN IV IV PROTOCOL; Start 11/25/18 at 16:00 Hydralazine HCl (Apresoline) 25 mg Q8 PO ; Start 11/26/18 at 22:00 Bumetanide (Bumex) 2 mg BID DIURETICS IV Last administered on 11/29/18 05:07; Admin Dose 2 MG; Start 11/28/18 at 18:00 Pantoprazole (Protonix Iv) 40 mg DAILY@06 IV Last administered on 11/29/18at 05:07; Admin Dose 40 MG; Start 11/29/18 at 06:00 TWAN ESTEVEZ Nov 29, 2018 10:55
--- NOTE | 2018-11-29 11:08 | NUR ---
SS NOTE: CONSULT DR. BERG REQUESTED FOR A FAMILY CONFERENCE TO DISCUSS PT'S PLAN OF CARE. SPOKE WITH DR. ESTEVEZ WHO REPORTED THAT ACCORDING TO HIS SCHEDULE, THE EARLIEST HE CAN DO THE CONFERENCE IS OR THURSDAY MORNING. SPOKE WITH DR. BERG WHO REPORTED THAT HE CAN MEET WITH PT'S FAMILY ALONG WITH DR. PATTERSON ON THURSDAY AT 10:[address] THEN [address] ESTEVEZ CAN MEET WITH FAMILY LATER. BRADY MET WITH PT'S SON, PAWAN AND INFORMED HIM OF THE MEETING. SON STATED THAT HE WILL BE AVAILABLE TO MEET WITH THE DOCTORS TOMORROW AT 10:00. RN, JACKI AWARE. SW WILL REMAIN AVAILABLE.
--- NOTE | 2018-11-29 11:35 | CONS ---
Date/Time of Note Date/Time of Note DATE: 11/29/18 TIME: 11:34 Assessment/Plan Assessment/Plan Hospital Course unfortunate 78 yo with what appears to be locally advanced colon ca, path pending -he has very poor performance status and multiple co-morbidities -he is back in the ICU on BiPAP -surgery has seen pt and feels he may not be an appropriate resection candidate -given patient's tenuous status this is understandable -path confirms colon ca -given that he appears to have localized disease, surgical resection is optimal treatment if he ever becomes stable for surgery. typically radiation has no role in localized colon ca, radiation can play a role in palliative tx of met colon if painful site of metastatic disease for example. -but again given his multiple medical issues, a palliative rectal stent may be a n initial approach -discussed with son at bedside who understands oncologic tx at this time not feasible until pt stabilizes #ANEMIA due to colon mass, hgb stable keep >7 Result Diagram: 11/29/18 0422 11/29/18 0422 Results 24hrs Laboratory Tests Test 11/28/18 13:02 11/28/18 13:33 11/28/18 22:58 11/29/18 04:22 Blood Gas Blood arterial Blood arterial Specimen Source Arterial Blood 11/28/2018 3:12:30 11/29/2018 12:45:5 Date Drawn PM 0 AM Arterial Blood 7.249 *L 7.264 *L pH (Temp corrected) Arterial Blood 62.2 H 67.8 H pCO2 (Temp correct) Arterial Blood 88.9 64.2 L pO2 (Temp corrected) Arterial Blood 26.6 H 30.0 H HCO3 Arterial Blood -1.4 1.7 Base Excess Arterial Blood 95.9 91.6 L Oxygen Saturatio n Nilson Test ACCEPTAB ACCEPTAB Arterial Blood Right Radial Right Radial Gas Puncture Site Arterial 1.2 1.4 Blood Carboxyhem oglobin Arterial Blood 0.4 0.4 Methemoglobin Blood Gas A-a O2 88.3 H 70.0 H Differential Oxyhemoglobin 94.4 90.0 L Percent Blood Gas 37.0 37.0 Temperature Blood Gas 12.0 16.0 Respiration Rate Blood Gas Actual 20 10 Respiration Rate Blood Gas MASK - BIPAP MASK - BIPAP Modality FiO2 35.0 30.0 Blood Gas 10 10 Pressure Support Blood Gas 16/6 16/6 IPAP/EPAP Ratio Blood Gas CHENTE Payton RN Critical Value Read Back Blood Gas AT July Jurgen Notified Whom Blood Gas 11/28/2018 3:24:10 11/29/2018 12:59:1 Notified Time PM 9 AM White Blood 7.7 8.3 Count Red Blood Count 4.22 L 4.12 L Hemoglobin 8.9 L 8.7 L Hematocrit 34.8 L 33.8 L Mean Corpuscular 82.5 82.0 Volume Mean Corpuscular 21.1 L 21.1 L Hemoglobin Mean Corpuscular 25.6 L 25.7 L Hemoglobin Sonali nt Red Cell 30.9 H 31.3 H Distribution Width Platelet Count 161 179 Mean Platelet Volume Immature 1.000 H 0.800 H Granulocytes % Neutrophils % 78.9 H 79.6 H Lymphocytes % 8.6 L 7.3 L Monocytes % 6.8 7.3 Eosinophils % 4.0 4.3 Basophils % 0.7 0.7 Nucleated Red 0.0 0.0 Blood Cells % Immature 0.080 H 0.070 H Granulocytes # Neutrophils # 6.0 6.6 Lymphocytes # 0.7 L 0.6 L Monocytes # 0.5 0.6 Eosinophils # 0.3 0.4 Basophils # 0.1 0.1 Nucleated Red 0.0 0.0 Blood Cells # Sodium Level 147 H 149 H Potassium Level 3.8 3.9 Chloride Level 104 107 Carbon Dioxide 28 30 Level Anion Gap 15 H 12 Blood Urea 84 H 83 H Nitrogen Creatinine 3.10 H 2.51 H Est Glomerular Filtrat Rate mL/min Glucose Level 82 69 #L Calcium Level 8.7 8.9 Total Bilirubin 0.1 L 0.1 L Direct Bilirubin 0.00 0.00 Indirect 0.1 0.1 Bilirubin Aspartate Amino 22 22 Transf (AST/SGOT ) Alanine 36 36 Aminotransferase (ALT/SGPT) Alkaline 48 54 Phosphatase Total Protein 6.4 6.1 Albumin 3.3 3.2 L Globulin 3.10 2.90 Albumin/Globulin 1.06 1.10 Ratio Blood Gas Tidal 456.0 Volume Lactic Acid 1.0 Level Phosphorus Level 5.6 H Magnesium Level 2.3 Test 11/29/18 05:00 Blood Gas Blood arterial Specimen Source Arterial Blood 11/29/2018 4:55:09 Date Drawn AM Arterial Blood 7.290 *L pH (Temp corrected) Arterial Blood 66.3 H pCO2 (Temp correct) Arterial Blood 85.0 pO2 (Temp corrected) Arterial Blood 31.2 H HCO3 Arterial Blood 3.2 H Base Excess Arterial Blood 96.0 Oxygen Saturatio n Nilson Test N/A Arterial Blood Right Radial Gas Puncture Site Arterial 1.8 Blood Carboxyhem oglobin Arterial Blood 0.3 Methemoglobin Blood Gas A-a O2 87.5 H Differential Oxyhemoglobin 94.0 Percent Blood Gas 37.0 Temperature Blood Gas 18.0 Respiration Rate Blood Gas Actual 22 Respiration Rate Blood Gas MASK - BIPAP Modality FiO2 35.0 Blood Gas 16/6 IPAP/EPAP Ratio Blood Gas C.OH RN Critical Value Read Back Blood Gas S.H> Notified Whom Blood Gas 11/29/2018 5:15:56 Notified Time AM Consultation Date/Type/Reason Admit Date/Time Nov 23, 2018 at 22:01 Initial Consult Date 11/25/18 Requesting Provider: NAYANA GARCIA 24 HR Interval Summary Free Text/Dictation DECOMPENSATED PULMONARY STATUS Subjective hx not possible: pt critical status Constitutional: requiring O2 Exam/Review of Systems Vital Signs Vitals Vital Signs Date Temp Pulse Resp B/P (MAP) Pulse Ox O2 O2 Flow FiO2 Time Delivery Rate 11/29/18 77 17 106/52 96 BIPAP 10:00 (70) 11/29/18 98.4 08:00 11/29/18 30 05:26 11/28/18 8.0 23:00 Intake and Output 11/28/18 11/28/18 11/29/18 1515:00 23:00 07:00 IntakeIntake Total 160 ml OutputOutput Total 1350 ml 1517 ml 1975 ml BalanceBalance -1190 ml -1517 ml -1975 ml Exam Constitutional: frail Psych: confusion Head: normocephalic, atraumatic Respiratory: diminished breath sounds Medications Medications Current Medications Ondansetron HCl (Zofran Inj) 4 mg Q6H PRN IV NAUSEA AND/OR VOMITING; Start 11/23/18 at 22:30 Acetaminophen (Tylenol Liquid) 650 mg Q6H PRN PO PAIN LEVEL 1-3 OR FEVER; Start 11/23/18 at 22:30 Acetaminophen (Tylenol Supp) 650 mg Q4H PRN [place] PAIN LEVEL 1-3 OR FEVER; Start 11/23/18 at 22:30 Lorazepam (Ativan) 0.5 mg Q4H PRN IV ANXIETY Last administered on 11/29/18 09:29; Admin Dose 0.5 MG; Start 11/23/18 at 22:30 Atorvastatin Calcium (Lipitor) 20 mg HS PO Last administered on 11/27/18 21:05; Admin Dose 20 MG; Start 11/24/18 at 21:00 Albuterol/ Ipratropium (Duoneb) 3 ml Q4H RESP THERAPY PRN HHN SHORTNESS OF BREATH; Start 11/24/18 at 09:00 Aripiprazole (Abilify) 5 mg DAILY PO Last administered on 11/28/18 08:54; Admin Dose 5 MG; Start 11/24/18 at 09:30 Digoxin (Digoxin) 0.25 mg DAILY@1300 PO Last administered on 11/26/18 13:41; Admin Dose 0.25 MG; Start 11/24/18 at 13:00; Status Hold Escitalopram Oxalate (Lexapro) 20 mg DAILY PO Last administered on 11/28/18 08:53; Admin Dose 20 MG; Start 11/24/18 at 09:30 Loratadine (Claritin) 10 mg DAILY PO Last administered on 11/28/18 08:53; Admin Dose 10 MG; Start 11/24/18 at 10:00 Multivitamins Therapeutic (Theragran) 1 tab DAILY PO Last administered on 11/28/18 08:54; Admin Dose 1 TAB; Start 11/24/18 at 09:30 Potassium Chloride (Micro-K) 8 meq DAILY PO Last administered on 11/24/18 10:12; Admin Dose 8 MEQ; Start 11/24/18 at 10:00; Status Hold Tamsulosin HCl (Flomax) 0.4 mg HS PO Last administered on 11/27/18 21:05; Admin Dose 0.4 MG; Start 11/24/18 at 21:00 Calcium/Vitamin D (Oyster Shell/ Vit-D (500/200)) 1 tab DAILY PO Last administered on 11/28/18 08:53; Admin Dose 1 TAB; Start 11/24/18 at 09:30 Aspirin (Ecotrin) 325 mg DAILY PO Last administered on 1/6/19at 08:54; Admin Dose 325 MG; Start 11/25/18 at 09:00 Metoprolol Tartrate (Lopressor) 5 mg Q4H PRN IV HR>110 Hold SBP<100; Start 11/24/18 at 11:00 Ferric Sodium Gluconate Complex 125 mg/Sodium Chloride 110 ml @ 110 mls/hr DAILY@1300 IVPB Last administered on 11/28/18at 13:29; Admin Dose 110 MLS/HR; Start 11/25/18 at 13:00; Stop 11/29/18 at 13:59 Atenolol (Tenormin) 25 mg DAILY PO Last administered on 11/28/18at 08:53; Admin Dose 25 MG; Start 11/25/18 at 14:00 Diltiazem HCl (Cardizem Sr) 120 mg DAILY PO ; Start 11/25/18 at 14:00; Status Hold Cefepime HCl 50 ml @ 100 mls/hr Q24H IVPB Last administered on 11/28/18at 12:19; Admin Dose 100 MLS/HR; Start 11/26/18 at 12:00 IV Flush (NS 10 ml) 10 ml PRN PRN IV IV PROTOCOL; Start 11/25/18 at 16:00 Hydralazine HCl (Apresoline) 25 mg Q8 PO ; Start 11/26/18 at 22:00 Bumetanide (Bumex) 2 mg BID DIURETICS IV Last administered on 11/29/18at 05:07; Admin Dose 2 MG; Start 11/28/18 at 18:00 Pantoprazole (Protonix Iv) 40 mg DAILY@06 IV Last administered on 11/29/18at 05:07; Admin Dose 40 MG; Start 11/29/18 at 06:00 TEO LOZOYA Nov 29, 2018 11:35
[2018-11-29] MEDS: CEFEPIME 2GM/50 ML IVPB SCH (13:27)
[2018-11-29] MEDS: SOD FERRIC GLUC COMPLX 125 MG in SOD CHLORIDE 0.9% 100 ML IVPB SCH (13:34)
--- NOTE | 2018-11-29 14:26 | CONS ---
Date/Time of Note Date/Time of Note DATE: 11/29/18 TIME: 14:26 Assessment/Plan Assessment/Plan Assessment/Plan 1. Oliguric acute on chronic renal failure due to Sepsis and Hemodynamics + obstructive uropathy 2. atrial fibrillation with RVR 3. acute hypoxemic and hypercapnic resp failure due to PNA - on BIPAP 4. Sepsis 5. Positive troponin 6. BPH on flomax 7. Colon CA Plan: BUN/Cr 83/2.51, Na 149- U/o 4 liter yesterday, already has 2.3 L urine since morning, Decrease bumex to 1mg IV BID, - Discussed with son about in details- they want to keep pt full code and want to do HD if needed Family want to know about staging for colon CA - family meeting scheduled tomorrow AM will follow up Result Diagram: 11/29/18 0422 11/29/18 0422 Results 24hrs Laboratory Tests Test 11/28/18 22:58 11/29/18 04:22 11/29/18 05:00 Blood Gas Specimen Blood arterial Blood arterial Source Arterial Blood Date 11/29/2018 12:45:50 AM 11/29/2018 4:55:09 AM Drawn Arterial Blood pH 7.264 *L 7.290 *L (Temp corrected) Arterial Blood pCO2 67.8 H 66.3 H (Temp correct) Arterial Blood pO2 64.2 L 85.0 (Temp corrected) Arterial Blood HCO3 30.0 H 31.2 H Arterial Blood Base 1.7 3.2 H Excess Arterial Blood 91.6 L 96.0 Oxygen Saturation Nilson Test ACCEPTAB N/A Arterial Blood Gas Right Radial Right Radial Puncture Site Arterial 1.4 1.8 Blood Carboxyhemoglobin Arterial Blood 0.4 0.3 Methemoglobin Blood Gas A-a O2 70.0 H 87.5 H Differential Oxyhemoglobin Percent 90.0 L 94.0 Blood Gas Temperature 37.0 37.0 Blood Gas Respiration 16.0 18.0 Rate Blood Gas Actual 10 22 Respiration Rate Blood Gas Modality MASK - BIPAP MASK - BIPAP FiO2 30.0 35.0 Blood Gas Tidal Volume 456.0 Blood Gas Pressure 10 Support Blood Gas IPAP/EPAP 16/6 16/6 Ratio Blood Gas Critical Celina Payton RN DOMI RN Value Read Back Blood Gas Notified Whom July Seaman S.H> Blood Gas Notified 11/29/2018 12:59:19 AM 11/29/2018 5:15:56 AM Time White Blood Count 8.3 Red Blood Count 4.12 L Hemoglobin 8.7 L Hematocrit 33.8 L Mean Corpuscular Volume 82.0 Mean Corpuscular 21.1 L Hemoglobin Mean Corpuscular 25.7 L Hemoglobin Concent Red Cell Distribution 31.3 H Width Platelet Count 179 Mean Platelet Volume Immature Granulocytes % 0.800 H Neutrophils % 79.6 H Lymphocytes % 7.3 L Monocytes % 7.3 Eosinophils % 4.3 Basophils % 0.7 Nucleated Red Blood 0.0 Cells % Immature Granulocytes # 0.070 H Neutrophils # 6.6 Lymphocytes # 0.6 L Monocytes # 0.6 Eosinophils # 0.4 Basophils # 0.1 Nucleated Red Blood 0.0 Cells # Sodium Level 149 H Potassium Level 3.9 Chloride Level 107 Carbon Dioxide Level 30 Anion Gap 12 Blood Urea Nitrogen 83 H Creatinine 2.51 H Est Glomerular Filtrat Rate mL/min Glucose Level 69 #L Lactic Acid Level 1.0 Calcium Level 8.9 Phosphorus Level 5.6 H Magnesium Level 2.3 Total Bilirubin 0.1 L Direct Bilirubin 0.00 Indirect Bilirubin 0.1 Aspartate Amino 22 Transf (AST/SGOT) Alanine 36 Aminotransferase (ALT/S GPT) Alkaline Phosphatase 54 Total Protein 6.1 Albumin 3.2 L Globulin 2.90 Albumin/Globulin Ratio 1.10 Consultation Date/Type/Reason Admit Date/Time Nov 23, 2018 at 22:01 Initial Consult Date 11/24/18 Type of Consult NEPHROLOGY Requesting Provider: NAYANA GARCIA 24 HR Interval Summary Free Text/Dictation pt remains lethargic, BUN/cr stil high but very good urine output Exam/Review of Systems Vital Signs Vitals Vital Signs Date Temp Pulse Resp B/P (MAP) Pulse Ox O2 O2 Flow FiO2 Time Delivery Rate 11/29/18 78 18 112/47 96 BIPAP 13:00 (68) 11/29/18 98.6 12:00 11/29/18 30 05:26 11/28/18 8.0 23:00 Intake and Output 11/28/18 11/28/18 11/29/18 1515:00 23:00 07:00 IntakeIntake Total 160 ml OutputOutput Total 1350 ml 1517 ml 1975 ml BalanceBalance -1190 ml -1517 ml -1975 ml Exam Constitutional: moderate distress, confused disoriented on BIPAP Respiratory: Bilateral coarse BS+, basilar crackles Cardiovascular: regular rate and rhythm, nl pulses Gastrointestinal: soft, non-tender Musculoskeletal: nl extremities to inspection, muscle weakness, swelling Neurological: confused, lethargic Medications Medications Current Medications Ondansetron HCl (Zofran Inj) 4 mg Q6H PRN IV NAUSEA AND/OR VOMITING; Start 11/23/18 at 22:30 Acetaminophen (Tylenol Liquid) 650 mg Q6H PRN PO PAIN LEVEL 1-3 OR FEVER; Start 11/23/18 at 22:30 Acetaminophen (Tylenol Supp) 650 mg Q4H PRN [place] PAIN LEVEL 1-3 OR FEVER; Start 11/23/18 at 22:30 Lorazepam (Ativan) 0.5 mg Q4H PRN IV ANXIETY Last administered on 11/29/18 09:29; Admin Dose 0.5 MG; Start 11/23/18 at 22:30 Atorvastatin Calcium (Lipitor) 20 mg HS PO Last administered on 11/27/18 21:05; Admin Dose 20 MG; Start 11/24/18 at 21:00 Albuterol/ Ipratropium (Duoneb) 3 ml Q4H RESP THERAPY PRN HHN SHORTNESS OF BREATH; Start 11/24/18 at 09:00 Aripiprazole (Abilify) 5 mg DAILY PO Last administered on 11/28/18 08:54; Admin Dose 5 MG; Start 11/24/18 at 09:30 Digoxin (Digoxin) 0.25 mg DAILY@1300 PO Last administered on 11/26/18 13:41; Admin Dose 0.25 MG; Start 11/24/18 at 13:00; Status Hold Escitalopram Oxalate (Lexapro) 20 mg DAILY PO Last administered on 11/28/18 08:53; Admin Dose 20 MG; Start 11/24/18 at 09:30 Loratadine (Claritin) 10 mg DAILY PO Last administered on 11/28/18 08:53; Admin Dose 10 MG; Start 11/24/18 at 10:00 Multivitamins Therapeutic (Theragran) 1 tab DAILY PO Last administered on 11/28/18 08:54; Admin Dose 1 TAB; Start 11/24/18 at 09:30 Potassium Chloride (Micro-K) 8 meq DAILY PO Last administered on 11/24/18 10:12; Admin Dose 8 MEQ; Start 11/24/18 at 10:00; Status Hold Tamsulosin HCl (Flomax) 0.4 mg HS PO Last administered on 11/27/18 21:05; Admin Dose 0.4 MG; Start 11/24/18 at 21:00 Calcium/Vitamin D (Oyster Shell/ Vit-D (500/200)) 1 tab DAILY PO Last administered on 11/28/18 08:53; Admin Dose 1 TAB; Start 11/24/18 at 09:30 Aspirin (Ecotrin) 325 mg DAILY PO Last administered on 11/28/18 08:54; Admin Dose 325 MG; Start 11/25/18 at 09:00 Metoprolol Tartrate (Lopressor) 5 mg Q4H PRN IV HR>110 Hold SBP<100; Start 11/24/18 at 11:00 Atenolol (Tenormin) 25 mg DAILY PO Last administered on 11/28/18 08:53; Admin Dose 25 MG; Start 11/25/18 at 14:00 Diltiazem HCl (Cardizem Sr) 120 mg DAILY PO ; Start 11/25/18 at 14:00; Status Hold Cefepime HCl 50 ml @ 100 mls/hr Q24H IVPB Last administered on 11/29/18 13:27; Admin Dose 100 MLS/HR; Start 11/26/18 at 12:00 IV Flush (NS 10 ml) 10 ml PRN PRN IV IV PROTOCOL; Start 11/25/18 at 16:00 Hydralazine HCl (Apresoline) 25 mg Q8 PO ; Start 11/26/18 at 22:00 Bumetanide (Bumex) 2 mg BID DIURETICS IV Last administered on 11/29/18 05:07; Admin Dose 2 MG; Start 11/28/18 at 18:00 Pantoprazole (Protonix Iv) 40 mg DAILY@06 IV Last administered on 11/29/18 05:07; Admin Dose 40 MG; Start 11/29/18 at 06:00 RENAN HERNANDEZ MD Nov 29, 2018 14:26
--- NOTE | 2018-11-29 16:37 | PN ---
Date/Time of Note Date/Time of Note DATE: 11/29/18 TIME: 16:29 Assessment/Plan VTE Prophylaxis Risk score (from Ns)>0 risk: 13 SCD applied (from Ns): No SCD contraindicated: other (no) Pharmacological prophylaxis: LMWH Lines/Catheters IV Catheter Type (from Nrs): PICC Line Central line still needed: Yes Urinary Cath still in place: Yes Reason Cath still needed: urinary retention Assessment/Plan Assessment/Plan 78-year-old male recently diagnosed with new colon mass, who presents with: # Hypoxic and hypercapnic respiratory failure: Appears to be due to pulmonary edema and possible pneumonia. - Currently requiring BiPAP -Continue Supplemental oxygen, BiPAP as needed, bronchodilators -continue IV antibiotic, follow up final culture results, Tylenol as needed fever -Follow up pulmonary recommendations -DuoNeb's as needed # Sepsis: As evidenced by fever and tachycardia: Secondary to pneumonia -see #1. Slowly improving now as patient is been afebrile for the last 3 days -Again, continue broad-spectrum IV antibiotics -Follow-up final respiratory and blood culture results 3. Cardiac- elevated troponins: Likely secondary to #1 and #2-Status post treatment dose Lovenox in ER. Elevated troponins, per cardiology, likely a type 2 demand ischemia in the setting of fevers, hypercarbic respiratory failure -but currently down trending cardiac enzymes -Continue to trend troponin -Follow-up cardiology consult recommendations -no left heart cath at this time secondary to renal insufficiency 4. Sigmoid mass: Status post biopsy during recent hospitalization. 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 -Follow-up surgery, hematology oncology, GI team recommendations -to determine treatment options at this point for his adenocarcinoma regarding surgery, chemotherapy, radiation options-this will likely be more considered when patient is more medically optimized. - If he develops obstruction, he will need a palliative rectal stent. For now however it looks like he is passing stools. # Atrial fibrillation with RVR -resolved now -Continue to monitor, patient on beta-esther and digoxin, follow-up cardiology recommendations # Renal insufficiency: Oliguric acute on chronic renal failure due to Sepsis and Hemodynamics + obstructive uropathy. Urine output in the last 24-48 hours improved compared to earlier this admission. Has been on Bumex the last 2 days. Appreciate renal consult, Ballard catheter in place. -Continue Ballard, measure urine output carefully, continue. Bumex as ordered by renal team -Follow-up BMP results this morning, still pending, and recommendations from urology and renal teams # Diabetes: Sugar stable, continue insulin while in-house DVT: Will start lovenox Result Diagram: 11/29/18 0422 11/29/18 0422 Results 24hrs Laboratory Tests Test 11/28/18 22:58 11/29/18 04:22 11/29/18 05:00 Blood Gas Specimen Blood arterial Blood arterial Source Arterial Blood Date 11/29/2018 12:45:50 AM 11/29/2018 4:55:09 AM Drawn Arterial Blood pH 7.264 *L 7.290 *L (Temp corrected) Arterial Blood pCO2 67.8 H 66.3 H (Temp correct) Arterial Blood pO2 64.2 L 85.0 (Temp corrected) Arterial Blood HCO3 30.0 H 31.2 H Arterial Blood Base 1.7 3.2 H Excess Arterial Blood 91.6 L 96.0 Oxygen Saturation Nilson Test ACCEPTAB N/A Arterial Blood Gas Right Radial Right Radial Puncture Site Arterial 1.4 1.8 Blood Carboxyhemoglobin Arterial Blood 0.4 0.3 Methemoglobin Blood Gas A-a O2 70.0 H 87.5 H Differential Oxyhemoglobin Percent 90.0 L 94.0 Blood Gas Temperature 37.0 37.0 Blood Gas Respiration 16.0 18.0 Rate Blood Gas Actual 10 22 Respiration Rate Blood Gas Modality MASK - BIPAP MASK - BIPAP FiO2 30.0 35.0 Blood Gas Tidal Volume 456.0 Blood Gas Pressure 10 Support Blood Gas IPAP/EPAP 16/6 16/6 Ratio Blood Gas Critical Celina Payton RN DOMI RN Value Read Back Blood Gas Notified Whom July Marcum Blood Gas Notified 11/29/2018 12:59:19 AM 11/29/2018 5:15:56 AM Time White Blood Count 8.3 Red Blood Count 4.12 L Hemoglobin 8.7 L Hematocrit 33.8 L Mean Corpuscular Volume 82.0 Mean Corpuscular 21.1 L Hemoglobin Mean Corpuscular 25.7 L Hemoglobin Concent Red Cell Distribution 31.3 H Width Platelet Count 179 Mean Platelet Volume Immature Granulocytes % 0.800 H Neutrophils % 79.6 H Lymphocytes % 7.3 L Monocytes % 7.3 Eosinophils % 4.3 Basophils % 0.7 Nucleated Red Blood 0.0 Cells % Immature Granulocytes # 0.070 H Neutrophils # 6.6 Lymphocytes # 0.6 L Monocytes # 0.6 Eosinophils # 0.4 Basophils # 0.1 Nucleated Red Blood 0.0 Cells # Sodium Level 149 H Potassium Level 3.9 Chloride Level 107 Carbon Dioxide Level 30 Anion Gap 12 Blood Urea Nitrogen 83 H Creatinine 2.51 H Est Glomerular Filtrat Rate mL/min Glucose Level 69 #L Lactic Acid Level 1.0 Calcium Level 8.9 Phosphorus Level 5.6 H Magnesium Level 2.3 Total Bilirubin 0.1 L Direct Bilirubin 0.00 Indirect Bilirubin 0.1 Aspartate Amino 22 Transf (AST/SGOT) Alanine 36 Aminotransferase (ALT/S GPT) Alkaline Phosphatase 54 Total Protein 6.1 Albumin 3.2 L Globulin 2.90 Albumin/Globulin Ratio 1.10 Subjective 24 Hr Interval Summary Free Text/Dictation No acute overnight events. Patient still on BiPAP. Required Ativan last night and this morning for trying to pull off mask. Spoke with family at bedside, updated them about the plan. Exam/Review of Systems Vital Signs Vitals Vital Signs Date Temp Pulse Resp B/P (MAP) Pulse Ox O2 O2 Flow FiO2 Time Delivery Rate 11/29/18 98.3 99 18 124/60 91 BIPAP 16:00 (81) 11/29/18 35 15:17 11/28/18 8.0 23:00 Intake and Output 11/28/18 11/28/18 11/29/18 1515:00 23:00 07:00 IntakeIntake Total 160 ml OutputOutput Total 1350 ml 1517 ml 2175 ml BalanceBalance -1190 ml -1517 ml -2175 ml Exam Const: Obese man lying in bed on CPAP, minimally responsive (s/p Ativan) Head: Atraumatic, normocephalic Eyes: Normal Conjunctiva, PERRLA, EOMI, normal sclera, no nystagmus ENT: Normal External Ears, Nose and Mouth, dry mucus membranes. Neck: Supple Resp: Some increased work of breathing, still some bilateral rhonchi and wheezes decreased breath sounds in the bases Cardio: Regular rate and rhythm, no murmurs, S1 S2 present Abd: Soft, non tender x 4, slight distention. Normal bowel sounds, no guarding or rebound Ext: No cyanosis, or edema Medications Medications Current Medications Ondansetron HCl (Zofran Inj) 4 mg Q6H PRN IV NAUSEA AND/OR VOMITING; Start 11/23/18 at 22:30 Acetaminophen (Tylenol Liquid) 650 mg Q6H PRN PO PAIN LEVEL 1-3 OR FEVER; Start 11/23/18 at 22:30 Acetaminophen (Tylenol Supp) 650 mg Q4H PRN [place] PAIN LEVEL 1-3 OR FEVER; Start 11/23/18 at 22:30 Lorazepam (Ativan) 0.5 mg Q4H PRN IV ANXIETY Last administered on 11/29/18 09:29; Admin Dose 0.5 MG; Start 11/23/18 at 22:30 Atorvastatin Calcium (Lipitor) 20 mg HS PO Last administered on 11/27/18 21:05; Admin Dose 20 MG; Start 11/24/18 at 21:00 Albuterol/ Ipratropium (Duoneb) 3 ml Q4H RESP THERAPY PRN HHN SHORTNESS OF BREATH; Start 11/24/18 at 09:00 Aripiprazole (Abilify) 5 mg DAILY PO Last administered on 11/28/18 08:54; Admin Dose 5 MG; Start 11/24/18 at 09:30 Digoxin (Digoxin) 0.25 mg DAILY@1300 PO Last administered on 11/26/18 13:41; Admin Dose 0.25 MG; Start 11/24/18 at 13:00; Status Hold Escitalopram Oxalate (Lexapro) 20 mg DAILY PO Last administered on 11/28/18 08:53; Admin Dose 20 MG; Start 11/24/18 at 09:30 Loratadine (Claritin) 10 mg DAILY PO Last administered on 11/28/18 08:53; Admin Dose 10 MG; Start 11/24/18 at 10:00 Multivitamins Therapeutic (Theragran) 1 tab DAILY PO Last administered on 11/28/18 08:54; Admin Dose 1 TAB; Start 11/24/18 at 09:30 Potassium Chloride (Micro-K) 8 meq DAILY PO Last administered on 11/24/18 10:12; Admin Dose 8 MEQ; Start 11/24/18 at 10:00; Status Hold Tamsulosin HCl (Flomax) 0.4 mg HS PO Last administered on 11/27/18 21:05; Admin Dose 0.4 MG; Start 11/24/18 at 21:00 Calcium/Vitamin D (Oyster Shell/ Vit-D (500/200)) 1 tab DAILY PO Last administered on 11/28/18 08:53; Admin Dose 1 TAB; Start 11/24/18 at 09:30 Aspirin (Ecotrin) 325 mg DAILY PO Last administered on 11/28/18 08:54; Admin Dose 325 MG; Start 11/25/18 at 09:00 Metoprolol Tartrate (Lopressor) 5 mg Q4H PRN IV HR>110 Hold SBP<100; Start 11/24/18 at 11:00 Atenolol (Tenormin) 25 mg DAILY PO Last administered on 11/28/18 08:53; Admin Dose 25 MG; Start 11/25/18 at 14:00 Diltiazem HCl (Cardizem Sr) 120 mg DAILY PO ; Start 11/25/18 at 14:00; Status Hold Cefepime HCl 50 ml @ 100 mls/hr Q24H IVPB Last administered on 11/29/18at 13:27; Admin Dose 100 MLS/HR; Start 11/26/18 at 12:00 IV Flush (NS 10 ml) 10 ml PRN PRN IV IV PROTOCOL; Start 11/25/18 at 16:00 Hydralazine HCl (Apresoline) 25 mg Q8 PO ; Start 11/26/18 at 22:00 Bumetanide (Bumex) 2 mg BID DIURETICS IV Last administered on 11/29/18 05:07; Admin Dose 2 MG; Start 11/28/18 at 18:00 Pantoprazole (Protonix Iv) 40 mg DAILY@06 IV Last administered on 11/29/18 05:07; Admin Dose 40 MG; Start 11/29/18 at 06:00 TWAN PATTERSON MD Nov 29, 2018 16:37
--- NOTE | 2018-11-29 20:17 | NUR ---
END OF SHIFT: ALL NEEDS ATTENDED. NO SIGNIFICANT CHANGE IN CONDITION. PATIENT STABLE. VITAL SIGNS STABLE. RESP: REMAINS ON BIPAP: 16/6, RATE 18, Fi02 35%. NO EPISODE OF DESATURATION. NEURO: AGITATED AND RESTLESS IN THE MORNING. ATIVAN 0.5mg. IV GIVEN X1. EFFECTIVE. CARD: VITAL SIGNS STABLE. SINUS RHYTHM. NO EPISODE OF HYPO/HYPERTENSION DURING THE SHIFT. 19:00 BS=989/55, HR=86. GI: X3 BOWEL MOVEMENT MODERATE SIZE. INSERTED NG TUBE X1, UNSUCCESSFUL. REMOVED AND WILL ATTEMPT LATER. : [place] CATH DRAINING WELL. TOTAL URINE OUTPUT=3,250ML. ON BUMEX 1MG. IV BID. SKIN: TURNED & REPOSITIONED [id number]. DRESSING CHANGED 2X TO BUTTOCKS. NO NEW WOUND IDENTIFIED. FAMILY AT THE BEDSIDE DURING THE SHIFT. UPDATED ON PATIENT'S CONDITION AND WILL HAVE FAMILY CONFERENCE IN THE MORNING. (pls. see SW notes). ENDORSED TO INCOMING RN: MELLY.
[2018-11-29] MEDS: ATORVASTATIN 20 MG TAB PO SCH (21:43)
[2018-11-29] MEDS: TAMSULOSIN (SR) 0.4 MG CAP PO SCH (21:43)
[2018-11-30] VITALS (32 sets, daily range): BP systolic 105–136; BP diastolic 46–109; PULSE 72–100; RESP 16–31
[2018-11-30] MEDS: BUMETANIDE 1 MG INJ IV SCH (05:31)
[2018-11-30] MEDS: PANTOPRAZOLE 40 MG INJ IV SCH (05:31)
--- NOTE | 2018-11-30 06:24 | PN ---
DATE: 11/29/2018 SUBJECTIVE: The patient is in intensive care unit. He has a history of anemia, history of sigmoid c ancer noted on the colonoscopy. He sustained a myocardial infarction and he has respiratory failure, congestive heart failure. He is being treated with a CPAP now. OBJECTIVE: VITAL SIGNS: Pulse is 79, blood pressure is 124/62. CARDIOVASCULAR: Normal heart sounds. RESPIRATORY: Rales heard bilaterally. ABDOMEN: Soft. 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 PLAN: The patient is not a surgical candidate; hence metal stent can be inserted for the tumor for p alliative reasons and whenever he is stable, surgery can be performed. Right now, the patient is not stable for endoscopic stent placement. Dictated By: FRANCE BRIGGS MD NC/NTS Conf#: [id number] DID#: [id number] CC: MARILEE CHAVEZ MD; AJ PIERRE MD; TWAN PATTERSON MD;*End*
--- NOTE | 2018-11-30 06:52 | NUR ---
Patient restless and lethargic, withdraws from pain. Vitals stable, with periodic adjustments to BIPAP mask. Patient remains on BIPAP. 0500 ABG resulted, MD notified, and received orders for BIPAP setting change to 18/6 RATE 20 FIO2 50% PICC line place. Ballard catheter in place. Patient remains afebrile on PM shift. Turned q2hrs, pt tolerated well.
[2018-11-30] MEDS ORDERED: DEXTROSE 5%-0.45% NACL 1,000 ML IV SCH (07:30)
[2018-11-30] MEDS ORDERED: DEXTROSE 50% 50 ML SYRINGE IV PRN ×2 (08:00)
[2018-11-30] MEDS ORDERED: GLUCAGON 1 MG INJ IM PRN (08:00)
[2018-11-30] MEDS ORDERED: GLUCOSE GEL 15 GRAM TUBE BUCCAL PRN (08:00)
[2018-11-30] MEDS ORDERED: GLUCOSE GEL 15 GRAM TUBE PO PRN ×2 (08:00)
--- NOTE | 2018-11-30 08:48 | CONS ---
Date/Time of Note Date/Time of Note DATE: 11/30/18 TIME: 08:45 Assessment/Plan Assessment/Plan Assessment/Plan 1. Non-ST elevation myocardial infarction, currently down trending cardiac enzymes likely a type 2 demand infarct in the setting of fevers, hypercarbic respiratory failure.-downtrended cardiac enzymes. NO cp. Echo this admit 11/24 with NL EF 55% - no cardiac interventio planned. 2. Abnormal electrocardiogram - con't resp Rx. 3. Right bundle branch block - chronic. 4. Colonic mass- per GI notes, no surgical intervention as pt is not a good candidate. 5. Anemia- repalce as needed. 6. Renal failure-worsening 7. Leukocytosis. 8. Coagulopathy. 9. Sepsis. 10. Atrial fibrillation-now in SR - rate controlled. 11.CHF-diastolic acute on chronic - hold bumex now with increased Na+ Result Diagram: 11/30/18 0449 11/30/18 0449 Results 24hrs Laboratory Tests Test 11/30/18 04:49 11/30/18 05:00 11/30/18 07:18 White Blood Count 8.1 Red Blood Count 4.26 L Hemoglobin 9.0 L Hematocrit 35.5 L Mean Corpuscular Volume 83.3 Mean Corpuscular Hemoglobin 21.1 L Mean Corpuscular 25.4 L Hemoglobin Concent Red Cell Distribution Width 31.8 H Platelet Count 239 # Mean Platelet Volume Immature Granulocytes % 0.600 H Neutrophils % 81.1 H Lymphocytes % 6.9 L Monocytes % 6.2 Eosinophils % 4.6 Basophils % 0.6 Nucleated Red Blood Cells % 0.0 Immature Granulocytes # 0.050 H Neutrophils # 6.6 Lymphocytes # 0.6 L Monocytes # 0.5 Eosinophils # 0.4 Basophils # 0.1 Nucleated Red Blood Cells # 0.0 Sodium Level 154 H Potassium Level 3.7 Chloride Level 108 Carbon Dioxide Level 35 H Anion Gap 11 Blood Urea Nitrogen 78 H Creatinine 2.01 H Est Glomerular Filtrat Rate mL/min Glucose Level 67 L Calcium Level 9.3 Creatine Kinase 22 L Creatine Kinase Index 6.9 Creatinine Kinase MB (Mass) 1.52 Troponin I 0.118 Blood Gas Specimen Source Blood arterial Arterial Blood Date Drawn 11/30/2018 5:57:34 AM Arterial Blood pH 7.308 L (Temp corrected) Arterial Blood pCO2 65.1 H (Temp correct) Arterial Blood pO2 75.4 L (Temp corrected) Arterial Blood HCO3 31.9 H Arterial Blood Base Excess 3.6 H Arterial Blood 94.1 L Oxygen Saturation Nilson Test ACCEPTAB Arterial Blood Gas Right Radial Puncture Site Arterial 1.8 Blood Carboxyhemoglobin Arterial Blood Methemoglobin 0.3 Blood Gas A-a O2 Differential 98.5 H Oxyhemoglobin Percent 92.1 L Blood Gas Temperature 37.0 Blood Gas Respiration Rate 16.0 Blood Gas Actual 16 Respiration Rate Blood Gas Modality BIPAP - S/T FiO2 35.0 Blood Gas Pressure Support 10 Blood Gas IPAP/EPAP Ratio 16/6 Blood Gas Notified Whom RTR Blood Gas Notified Time 11/30/2018 6:14:34 AM Bedside Glucose 70 Consultation Date/Type/Reason Admit Date/Time Nov 23, 2018 at 22:01 Initial Consult Date 11/25/18 Requesting Provider: NAYANA GARCIA 24 HR Interval Summary Free Text/Dictation NO acute events - con't resp RX - hold Bumex now to keep euvolemic. ROS: No fever, no chills, no nausea, no vomiting, no diarrhea/constipation - PER NURSE Exam/Review of Systems Vital Signs Vitals Vital Signs Date Temp Pulse Resp B/P (MAP) Pulse Ox O2 O2 Flow FiO2 Time Delivery Rate 11/30/18 99.1 95 21 113/53 99 BIPAP 08:00 (73) 11/30/18 35 04:17 11/28/18 8.0 23:00 Intake and Output 11/29/18 11/29/18 11/30/18 1515:00 23:00 07:00 IntakeIntake Total 160 ml OutputOutput Total 2150 ml 2301 ml 2050 ml BalanceBalance -1990 ml -2301 ml -2050 ml Exam General: WN/WD/NAD, AOx confused HEENT: Unicetric/atraumatic/EOMI (does not follow commands) - BiPAP NECK: JVD elevated, no thyromegaly Lymph: no lymphadenopathy HEART: regular with no S3, II/ systolic murmur at apex LUNGS: Coarse sounds ABD: soft, NT, ND, +BS : Intact Neuro: non focal SKIN: chronic changes EXT: decreased edema Medications Medications Current Medications Ondansetron HCl (Zofran Inj) 4 mg Q6H PRN IV NAUSEA AND/OR VOMITING; Start 11/23 at 22:30 Acetaminophen (Tylenol Liquid) 650 mg Q6H PRN PO PAIN LEVEL 1-3 OR FEVER; Start 11/23/18 at 22:30 Acetaminophen (Tylenol Supp) 650 mg Q4H PRN PA PAIN LEVEL 1-3 OR FEVER; Start 11/23/18 at 22:30 Lorazepam (Ativan) 0.5 mg Q4H PRN IV ANXIETY Last administered on 11/29/18 20:00; Admin Dose 0.5 MG; Start 11/23/18 at 22:30 Atorvastatin Calcium (Lipitor) 20 mg HS PO Last administered on 11/29/18 21:43; Admin Dose 20 MG; Start 11/24/18 at 21:00 Albuterol/ Ipratropium (Duoneb) 3 ml Q4H RESP THERAPY PRN HHN SHORTNESS OF BREATH; Start 11/24/18 at 09:00 Aripiprazole (Abilify) 5 mg DAILY PO Last administered on 11/28/18 08:54; Admin Dose 5 MG; Start 11/24/18 at 09:30 Digoxin (Digoxin) 0.25 mg DAILY@1300 PO Last administered on 11/26/18 13:41; Admin Dose 0.25 MG; Start 11/24/18 at 13:00; Status Hold Escitalopram Oxalate (Lexapro) 20 mg DAILY PO Last administered on 11/28/18 08:53; Admin Dose 20 MG; Start 11/24/18 at 09:30 Loratadine (Claritin) 10 mg DAILY PO Last administered on 11/28/18 08:53; Admin Dose 10 MG; Start 11/24/18 at 10:00 Multivitamins Therapeutic (Theragran) 1 tab DAILY PO Last administered on 11/28/18 08:54; Admin Dose 1 TAB; Start 11/24/18 at 09:30 Potassium Chloride (Micro-K) 8 meq DAILY PO Last administered on 11/24/18 10:12; Admin Dose 8 MEQ; Start 11/24/18 at 10:00; Status Hold Tamsulosin HCl (Flomax) 0.4 mg HS PO Last administered on 11/29/18 21:43; Admin Dose 0.4 MG; Start 11/24/18 at 21:00 Calcium/Vitamin D (Oyster Shell/ Vit-D (500/200)) 1 tab DAILY PO Last administered on 11/28/18at 08:53; Admin Dose 1 TAB; Start 11/24/18 at 09:30 Aspirin (Ecotrin) 325 mg DAILY PO Last administered on 11/28/18at 08:54; Admin Dose 325 MG; Start 11/25/18 at 09:00 Metoprolol Tartrate (Lopressor) 5 mg Q4H PRN IV HR>110 Hold SBP<100; Start 11/24/18 at 11:00 Atenolol (Tenormin) 25 mg DAILY PO Last administered on 11/28/18at 08:53; Admin Dose 25 MG; Start 11/25/18 at 14:00 Diltiazem HCl (Cardizem Sr) 120 mg DAILY PO ; Start 11/25/18 at 14:00; Status Hold Cefepime HCl 50 ml @ 100 mls/hr Q24H IVPB Last administered on 11/29/18at 13:27; Admin Dose 100 MLS/HR; Start 11/26/18 at 12:00 IV Flush (NS 10 ml) 10 ml PRN PRN IV IV PROTOCOL; Start 11/25/18 at 16:00 Hydralazine HCl (Apresoline) 25 mg Q8 PO Last administered on 11/30/18at 05:31; Admin Dose 25 MG; Start 11/26/18 at 22:00 Pantoprazole (Protonix Iv) 40 mg DAILY@06 IV Last administered on 11/30/18at 05:31; Admin Dose 40 MG; Start 11/29/18 at 06:00 Enoxaparin Sodium (Lovenox) 30 mg DAILY SC ; Start 11/30/18 at 09:00 Dextrose/Sodium Chloride 1,000 ml @ 50 mls/hr Q20H IV Last administered on 11/30/18at 08:37; Admin Dose 50 MLS/HR; Start 11/30/18 at 07:30 Diagnostic Test (Pha) (Accu-Chek) 1 ea 02 XX ; Start 12/01/18 at 02:00 Insulin Aspart (Novolog Insulin Pen) (Adult SC Insulin - Mild Algorithm)... Q4 SC ; Start 11/30/18 at 09:00 Miscellaneous Information 1 ea NOTE XX ; Start 11/30/18 at 08:00 Glucose (Glutose) 15 gm Q15M PRN PO DECREASED GLUCOSE; Start 11/30/18 at 08:00 Glucose (Glutose) 22.5 gm Q15M PRN PO DECREASED GLUCOSE; Start 11/30/18 at 08:00 Dextrose (D50w Syringe) 25 ml Q15M PRN IV DECREASED GLUCOSE; Start 11/30/18 at 08:00 Dextrose (D50w Syringe) 50 ml Q15M PRN IV DECREASED GLUCOSE; Start 11/30/18 at 08:00 Glucagon (Glucagen) 1 mg Q15M PRN IM DECREASED GLUCOSE; Start 11/30/18 at 08:00 Glucose (Glutose) 15 gm Q15M PRN BUCCAL DECREASED GLUCOSE; Start 11/30/18 at 08:00 SCARLET HARDWICK MD Nov 30, 2018 08:48
[2018-11-30] MEDS: Insulin NOVOLOG SS MILD Algorithm (NPO/TPN/ENTERAL FEEDS) SC SCH ×4 (09:00→20:59)
[2018-11-30] MEDS ORDERED: INSULIN ASPART [NOVOLOG] 3 ML PEN SC SCH (09:00)
[2018-11-30] MEDS: ASPIRIN (EC) 325 MG TAB PO SCH (09:00)
[2018-11-30] MEDS: ARIPIPRAZOLE 5 MG TAB PO SCH (09:48)
[2018-11-30] MEDS: LORATADINE 10 MG TAB PO SCH (09:49)
[2018-11-30] MEDS: MULTIVITAMINS THERAPEUTIC TAB PO SCH (09:49)
[2018-11-30] MEDS: ESCITALOPRAM 10 MG TAB PO SCH (09:49)
[2018-11-30] MEDS: ENOXAPARIN 30 MG/0.3 ML SYG SC SCH (09:50)
[2018-11-30] MEDS: CALCIUM/VITAMIN D (500/200) TAB PO SCH (09:51)
[2018-11-30] MEDS: BALSAM PERU/CASTOR OIL 60 GM TUBE TOP SCH ×2 (09:52→21:00)
[2018-11-30] MEDS: ATENOLOL 50 MG TAB PO SCH (09:53)
--- NOTE | 2018-11-30 10:03 | CONS ---
Date/Time of Note Date/Time of Note DATE: 11/30/18 TIME: 10:03 Assessment/Plan Assessment/Plan Assessment/Plan 1. Oliguric acute on chronic renal failure due to Sepsis and Hemodynamics + obstructive uropathy 2. atrial fibrillation with RVR 3. acute hypoxemic and hypercapnic resp failure due to PNA - on BIPAP 4. Sepsis 5. Positive troponin 6. BPH on flomax 7. Colon CA Plan: BUN/Cr 78/2.01, Na trended upto 154- U/o 6.7 liter yesterday, on Bumex 1 mg IV BID, pt is in polyuria phase post obstructive Diuresis, will give DDAVP 2mcg IVx 1 dose now , - Discussed with son about in details- they want to keep pt full code and want to do HD if needed will follow up Result Diagram: 11/30/18 0449 11/30/18 0449 Results 24hrs Laboratory Tests Test 11/30/18 04:49 11/30/18 05:00 11/30/18 07:18 White Blood Count 8.1 Red Blood Count 4.26 L Hemoglobin 9.0 L Hematocrit 35.5 L Mean Corpuscular Volume 83.3 Mean Corpuscular Hemoglobin 21.1 L Mean Corpuscular 25.4 L Hemoglobin Concent Red Cell Distribution Width 31.8 H Platelet Count 239 # Mean Platelet Volume Immature Granulocytes % 0.600 H Neutrophils % 81.1 H Lymphocytes % 6.9 L Monocytes % 6.2 Eosinophils % 4.6 Basophils % 0.6 Nucleated Red Blood Cells % 0.0 Immature Granulocytes # 0.050 H Neutrophils # 6.6 Lymphocytes # 0.6 L Monocytes # 0.5 Eosinophils # 0.4 Basophils # 0.1 Nucleated Red Blood Cells # 0.0 Sodium Level 154 H Potassium Level 3.7 Chloride Level 108 Carbon Dioxide Level 35 H Anion Gap 11 Blood Urea Nitrogen 78 H Creatinine 2.01 H Est Glomerular Filtrat Rate mL/min Glucose Level 67 L Calcium Level 9.3 Creatine Kinase 22 L Creatine Kinase Index 6.9 Creatinine Kinase MB (Mass) 1.52 Troponin I 0.118 Blood Gas Specimen Source Blood arterial Arterial Blood Date Drawn 11/30/2018 5:57:34 AM Arterial Blood pH 7.308 L (Temp corrected) Arterial Blood pCO2 65.1 H (Temp correct) Arterial Blood pO2 75.4 L (Temp corrected) Arterial Blood HCO3 31.9 H Arterial Blood Base Excess 3.6 H Arterial Blood 94.1 L Oxygen Saturation Nilson Test ACCEPTAB Arterial Blood Gas Right Radial Puncture Site Arterial 1.8 Blood Carboxyhemoglobin Arterial Blood Methemoglobin 0.3 Blood Gas A-a O2 Differential 98.5 H Oxyhemoglobin Percent 92.1 L Blood Gas Temperature 37.0 Blood Gas Respiration Rate 16.0 Blood Gas Actual 16 Respiration Rate Blood Gas Modality BIPAP - S/T FiO2 35.0 Blood Gas Pressure Support 10 Blood Gas IPAP/EPAP Ratio 16/6 Blood Gas Notified Whom RTR Blood Gas Notified Time 11/30/2018 6:14:34 AM Bedside Glucose 70 Consultation Date/Type/Reason Admit Date/Time Nov 23, 2018 at 22:01 Initial Consult Date 11/24/18 Type of Consult NEPHROLOGY Requesting Provider: NAYANA GARCIA 24 HR Interval Summary Free Text/Dictation pt had a Urine output 6.7 L removed, BP stable Exam/Review of Systems Vital Signs Vitals Vital Signs Date Temp Pulse Resp B/P (MAP) Pulse Ox O2 O2 Flow FiO2 Time Delivery Rate 11/30/18 99.1 95 21 113/53 99 BIPAP 08:00 (73) 11/30/18 35 04:17 11/28/18 8.0 23:00 Intake and Output 11/29/18 11/29/18 11/30/18 1414:59 22:59 06:59 IntakeIntake Total 50 ml 110 ml OutputOutput Total 2050 ml 2376 ml 2275 ml BalanceBalance -2000 ml -2266 ml -2275 ml Exam Constitutional: moderate distress, confused disoriented on BIPAP Respiratory: Bilateral coarse BS+, basilar crackles Cardiovascular: regular rate and rhythm, nl pulses Gastrointestinal: soft, non-tender Musculoskeletal: nl extremities to inspection, muscle weakness, swelling Neurological: confused, lethargic Medications Medications Current Medications Ondansetron HCl (Zofran Inj) 4 mg Q6H PRN IV NAUSEA AND/OR VOMITING; Start 11/23/18 at 22:30 Acetaminophen (Tylenol Liquid) 650 mg Q6H PRN PO PAIN LEVEL 1-3 OR FEVER; Start 11/23/18 at 22:30 Acetaminophen (Tylenol Supp) 650 mg Q4H PRN ID PAIN LEVEL 1-3 OR FEVER; Start 11/23/18 at 22:30 Lorazepam (Ativan) 0.5 mg Q4H PRN IV ANXIETY Last administered on 11/29/18 20:00; Admin Dose 0.5 MG; Start 11/23/18 at 22:30 Atorvastatin Calcium (Lipitor) 20 mg HS PO Last administered on 11/29/18 21:43; Admin Dose 20 MG; Start 11/24/18 at 21:00 Albuterol/ Ipratropium (Duoneb) 3 ml Q4H RESP THERAPY PRN HHN SHORTNESS OF BREATH; Start 11/24/18 at 09:00 Aripiprazole (Abilify) 5 mg DAILY PO Last administered on 11/30/18 09:48; Admin Dose 5 MG; Start 11/24/18 at 09:30 Digoxin (Digoxin) 0.25 mg DAILY@1300 PO Last administered on 11/26/18 13:41; Admin Dose 0.25 MG; Start 11/24/18 at 13:00; Status Hold Escitalopram Oxalate (Lexapro) 20 mg DAILY PO Last administered on 11/30/18 09:49; Admin Dose 20 MG; Start 11/24/18 at 09:30 Loratadine (Claritin) 10 mg DAILY PO Last administered on 11/30/18 09:49; Admin Dose 10 MG; Start 11/24/18 at 10:00 Multivitamins Therapeutic (Theragran) 1 tab DAILY PO Last administered on 11/30/18 09:49; Admin Dose 1 TAB; Start 11/24/18 at 09:30 Potassium Chloride (Micro-K) 8 meq DAILY PO Last administered on 11/24/18 10:12; Admin Dose 8 MEQ; Start 11/24/18 at 10:00; Status Hold Tamsulosin HCl (Flomax) 0.4 mg HS PO Last administered on 11/29/18 21:43; Admin Dose 0.4 MG; Start 11/24/18 at 21:00 Calcium/Vitamin D (Oyster Shell/ Vit-D (500/200)) 1 tab DAILY PO Last administered on 11/30/18 09:51; Admin Dose 1 TAB; Start 11/24/18 at 09:30 Aspirin (Ecotrin) 325 mg DAILY PO Last administered on 11/28/18 08:54; Admin Dose 325 MG; Start 11/25/18 at 09:00 Metoprolol Tartrate (Lopressor) 5 mg Q4H PRN IV HR>110 Hold SBP<100; Start 11/24/18 at 11:00 Atenolol (Tenormin) 25 mg DAILY PO Last administered on 11/30/18at 09:53; Admin Dose 25 MG; Start 11/25/18 at 14:00 Diltiazem HCl (Cardizem Sr) 120 mg DAILY PO ; Start 11/25/18 at 14:00; Status Hold Cefepime HCl 50 ml @ 100 mls/hr Q24H IVPB Last administered on 11/29/18at 13:27; Admin Dose 100 MLS/HR; Start 11/26/18 at 12:00 IV Flush (NS 10 ml) 10 ml PRN PRN IV IV PROTOCOL; Start 11/25/18 at 16:00 Hydralazine HCl (Apresoline) 25 mg Q8 PO Last administered on 11/30/18at 05:31; Admin Dose 25 MG; Start 11/26/18 at 22:00 Pantoprazole (Protonix Iv) 40 mg DAILY@06 IV Last administered on 11/30/18at 05:31; Admin Dose 40 MG; Start 11/29/18 at 06:00 Enoxaparin Sodium (Lovenox) 30 mg DAILY SC Last administered on 11/30/18at 09:50; Admin Dose 30 MG; Start 11/30/18 at 09:00 Dextrose/Sodium Chloride 1,000 ml @ 50 mls/hr Q20H IV Last administered on 11/30/18at 08:37; Admin Dose 50 MLS/HR; Start 11/30/18 at 07:30 Diagnostic Test (Pha) (Accu-Chek) 1 ea 02 XX ; Start 12/01/18 at 02:00 Insulin Aspart (Novolog Insulin Pen) (Adult SC Insulin - Mild Algorithm)... Q4 SC ; Start 11/30/18 at 09:00 Miscellaneous Information 1 ea NOTE XX ; Start 11/30/18 at 08:00 Glucose (Glutose) 15 gm Q15M PRN PO DECREASED GLUCOSE; Start 11/30/18 at 08:00 Glucose (Glutose) 22.5 gm Q15M PRN PO DECREASED GLUCOSE; Start 11/30/18 at 08:00 Dextrose (D50w Syringe) 25 ml Q15M PRN IV DECREASED GLUCOSE; Start 11/30/18 at 08:00 Dextrose (D50w Syringe) 50 ml Q15M PRN IV DECREASED GLUCOSE; Start 11/30/18 at 08:00 Glucagon (Glucagen) 1 mg Q15M PRN IM DECREASED GLUCOSE; Start 11/30/18 at 08:00 Glucose (Glutose) 15 gm Q15M PRN BUCCAL DECREASED GLUCOSE; Start 11/30/18 at 08:00 RENAN HERNANDEZ MD Nov 30, 2018 10:03
--- NOTE | 2018-11-30 10:05 | CONS ---
Date/Time of Note Date/Time of Note DATE: 11/30/18 TIME: 10:00 Consult Date/Type/Reason Admit Date/Time Nov 23, 2018 at 22:01 Initial Consult Date 11/25/18 Type of Consultation: Pulm/CCM Requesting Provider: NAYANA GARCIA Subjective Remains altered on bipap. No pressors. Improved renal function. Objective Vital Signs Date Temp Pulse Resp B/P (MAP) Pulse Ox O2 O2 Flow FiO2 Time Delivery Rate 11/30/18 99.1 95 21 113/53 99 BIPAP 08:00 (73) 11/30/18 35 04:17 11/28/18 8.0 23:00 Intake and Output 11/29/18 11/29/18 11/30/18 1515:00 23:00 07:00 IntakeIntake Total 160 ml OutputOutput Total 2150 ml 2301 ml 2050 ml BalanceBalance -1990 ml -2301 ml -2050 ml Exam GENERAL: Elderly Haitian gentleman remains confused and agitated VITAL SIGNS: per chart NECK: Supple. No JVD or lymphadenopathy. CARDIAC EXAM: S1, S2. No added sounds or murmurs. CHEST: clear bilaterally, No added sounds, rales or wheezes ABDOMEN: Soft, nontender. No guarding or rebound. EXTREMITIES: No cyanosis, clubbing or edema. NEUROLOGIC: Generalized weakness. No focal deficits. Results/Medications Result Diagram: 11/30/18 0449 11/30/18 0449 Results 24 hrs Laboratory Tests Test 11/30/18 04:49 11/30/18 05:00 11/30/18 07:18 White Blood Count 8.1 Red Blood Count 4.26 L Hemoglobin 9.0 L Hematocrit 35.5 L Mean Corpuscular Volume 83.3 Mean Corpuscular Hemoglobin 21.1 L Mean Corpuscular 25.4 L Hemoglobin Concent Red Cell Distribution Width 31.8 H Platelet Count 239 # Mean Platelet Volume Immature Granulocytes % 0.600 H Neutrophils % 81.1 H Lymphocytes % 6.9 L Monocytes % 6.2 Eosinophils % 4.6 Basophils % 0.6 Nucleated Red Blood Cells % 0.0 Immature Granulocytes # 0.050 H Neutrophils # 6.6 Lymphocytes # 0.6 L Monocytes # 0.5 Eosinophils # 0.4 Basophils # 0.1 Nucleated Red Blood Cells # 0.0 Sodium Level 154 H Potassium Level 3.7 Chloride Level 108 Carbon Dioxide Level 35 H Anion Gap 11 Blood Urea Nitrogen 78 H Creatinine 2.01 H Est Glomerular Filtrat Rate mL/min Glucose Level 67 L Calcium Level 9.3 Creatine Kinase 22 L Creatine Kinase Index 6.9 Creatinine Kinase MB (Mass) 1.52 Troponin I 0.118 Blood Gas Specimen Source Blood arterial Arterial Blood Date Drawn 11/30/2018 5:57:34 AM Arterial Blood pH 7.308 L (Temp corrected) Arterial Blood pCO2 65.1 H (Temp correct) Arterial Blood pO2 75.4 L (Temp corrected) Arterial Blood HCO3 31.9 H Arterial Blood Base Excess 3.6 H Arterial Blood 94.1 L Oxygen Saturation Nilson Test ACCEPTAB Arterial Blood Gas Right Radial Puncture Site Arterial 1.8 Blood Carboxyhemoglobin Arterial Blood Methemoglobin 0.3 Blood Gas A-a O2 Differential 98.5 H Oxyhemoglobin Percent 92.1 L Blood Gas Temperature 37.0 Blood Gas Respiration Rate 16.0 Blood Gas Actual 16 Respiration Rate Blood Gas Modality BIPAP - S/T FiO2 35.0 Blood Gas Pressure Support 10 Blood Gas IPAP/EPAP Ratio 16/6 Blood Gas Notified Whom RTR Blood Gas Notified Time 11/30/2018 6:14:34 AM Bedside Glucose 70 Medications Current Medications Ondansetron HCl (Zofran Inj) 4 mg Q6H PRN IV NAUSEA AND/OR VOMITING; Start 11/23/18 at 22:30 Acetaminophen (Tylenol Liquid) 650 mg Q6H PRN PO PAIN LEVEL 1-3 OR FEVER; Start 11/23/18 at 22:30 Acetaminophen (Tylenol Supp) 650 mg Q4H PRN [place] PAIN LEVEL 1-3 OR FEVER; Start 11/23/18 at 22:30 Lorazepam (Ativan) 0.5 mg Q4H PRN IV ANXIETY Last administered on 11/29/18at 20:00; Admin Dose 0.5 MG; Start 11/23/18 at 22:30 Atorvastatin Calcium (Lipitor) 20 mg HS PO Last administered on 11/29/18at 21:43; Admin Dose 20 MG; Start 11/24/18 at 21:00 Albuterol/ Ipratropium (Duoneb) 3 ml Q4H RESP THERAPY PRN HHN SHORTNESS OF BREATH; Start 11/24/18 at 09:00 Aripiprazole (Abilify) 5 mg DAILY PO Last administered on 11/30/18 09:48; Admin Dose 5 MG; Start 11/24/18 at 09:30 Digoxin (Digoxin) 0.25 mg DAILY@1300 PO Last administered on 11/26/18 13:41; Admin Dose 0.25 MG; Start 11/24/18 at 13:00; Status Hold Escitalopram Oxalate (Lexapro) 20 mg DAILY PO Last administered on 11/30/18 09:49; Admin Dose 20 MG; Start 11/24/18 at 09:30 Loratadine (Claritin) 10 mg DAILY PO Last administered on 11/30/18 09:49; Admin Dose 10 MG; Start 11/24/18 at 10:00 Multivitamins Therapeutic (Theragran) 1 tab DAILY PO Last administered on 11/30/18 09:49; Admin Dose 1 TAB; Start 11/24/18 at 09:30 Potassium Chloride (Micro-K) 8 meq DAILY PO Last administered on 11/24/18 10:12; Admin Dose 8 MEQ; Start 11/24/18 at 10:00; Status Hold Tamsulosin HCl (Flomax) 0.4 mg HS PO Last administered on 11/29/18 21:43; Admin Dose 0.4 MG; Start 11/24/18 at 21:00 Calcium/Vitamin D (Oyster Shell/ Vit-D (500/200)) 1 tab DAILY PO Last administered on 11/30/18 09:51; Admin Dose 1 TAB; Start 11/24/18 at 09:30 Aspirin (Ecotrin) 325 mg DAILY PO Last administered on 11/28/18 08:54; Admin Dose 325 MG; Start 11/25/18 at 09:00 Metoprolol Tartrate (Lopressor) 5 mg Q4H PRN IV HR>110 Hold SBP<100; Start 11/24/18 at 11:00 Atenolol (Tenormin) 25 mg DAILY PO Last administered on 11/30/18 09:53; Admin Dose 25 MG; Start 11/25/18 at 14:00 Diltiazem HCl (Cardizem Sr) 120 mg DAILY PO ; Start 11/25/18 at 14:00; Status Hold Cefepime HCl 50 ml @ 100 mls/hr Q24H IVPB Last administered on 11/29/18at 13:27; Admin Dose 100 MLS/HR; Start 11/26/18 at 12:00 IV Flush (NS 10 ml) 10 ml PRN PRN IV IV PROTOCOL; Start 11/25/18 at 16:00 Hydralazine HCl (Apresoline) 25 mg Q8 PO Last administered on 11/30/18at 05:31; Admin Dose 25 MG; Start 11/26/18 at 22:00 Pantoprazole (Protonix Iv) 40 mg DAILY@06 IV Last administered on 11/30/18at 05:31; Admin Dose 40 MG; Start 11/29/18 at 06:00 Enoxaparin Sodium (Lovenox) 30 mg DAILY SC Last administered on 11/30/18at 09:50; Admin Dose 30 MG; Start 11/30/18 at 09:00 Dextrose/Sodium Chloride 1,000 ml @ 50 mls/hr Q20H IV Last administered on 11/30/18at 08:37; Admin Dose 50 MLS/HR; Start 11/30/18 at 07:30 Diagnostic Test (Pha) (Accu-Chek) 1 ea 02 XX ; Start 12/01/18 at 02:00 Insulin Aspart (Novolog Insulin Pen) (Adult SC Insulin - Mild Algorithm)... Q4 SC ; Start 11/30/18 at 09:00 Miscellaneous Information 1 ea NOTE XX ; Start 11/30/18 at 08:00 Glucose (Glutose) 15 gm Q15M PRN PO DECREASED GLUCOSE; Start 11/30/18 at 08:00 Glucose (Glutose) 22.5 gm Q15M PRN PO DECREASED GLUCOSE; Start 11/30/18 at 08:00 Dextrose (D50w Syringe) 25 ml Q15M PRN IV DECREASED GLUCOSE; Start 11/30/18 at 08:00 Dextrose (D50w Syringe) 50 ml Q15M PRN IV DECREASED GLUCOSE; Start 11/30/18 at 08:00 Glucagon (Glucagen) 1 mg Q15M PRN IM DECREASED GLUCOSE; Start 11/30/18 at 08:00 Glucose (Glutose) 15 gm Q15M PRN BUCCAL DECREASED GLUCOSE; Start 11/30/18 at 08:00 Assessment/Plan Chief Complaint/Hosp Course IMP: 1. Acute hypoxemic/hypercapnic respiratory failure--most likely due to volume overload +/- pneumonia 2. Sigmoid mass, presumed colon cancer with recent severe anemia. 3. Non-ST elevation myocardial infarction. 4. Atrial fibrillation with rapid ventricular response, now rate controlled 5. ARF 6. Anemia RECS: 1. Worsening clinical status, mental status, hypoxemia and hypercapnia. Requiring noninvasive positive pressure ventilation. 2. Continue BiPAP hold off on intubation today. 3. Improving renal function likely postobstructive uropathy improved with Ballard catheter placement. 4. GI recommendations and surgical evaluation regarding colon mass. Case D/W family in detail. Patient may require intubation prior to cardiac catheterization. Following intubation patient can proceed to surgery if cleared by cardiology. Family wish ed to proceed with all aggressive measures including elective intubation and mechanical ventilation prior to all procedures if needed. Discussed with case management Critical care time 40 minutes JANNET BERG MD, [facility] Nov 30, 2018 10:05
--- NOTE | 2018-11-30 12:20 | NUR ---
SS NOTE: FAMILY CONF DR. BERG MET WITH PT'S SON, PAWAN AND DISCUSSED PT'S CONDITION AND PLAN OF CARE. SW MET WITH DR. BERG WHO REPORTED THAT FAMILY WANTS EVERYTHING DONE FOR PT, INCLUDING INTUBATION. PT REMAINS FULL CODE. STATED THAT PT MIGHT NEED TO BE INTUBATED BEFORE GOING FOR A HEART CATH IF HIS O2 INTAKE DOES NOT IMPROVE. SW MET WITH PT'S SON WHO CONFIRMED THAT HE MET WITH MD AND HAS REQUESTED FOR EVERYTHING TO BE DONE. SON REPORTED UNDERSTANDING THAT PT MIGHT BE INTUBATED. STATED THAT HE WANTS TO GIVE PT EVERY CHANCE TO GET BETTER IF POSSIBLE. SW PROVIDED EMOTIONAL SUPPORT. WILL CONTINUE TO REMAIN AVAILABLE NEEDED.
--- NOTE | 2018-11-30 12:31 | CONS ---
Date/Time of Note Date/Time of Note DATE: 11/30/18 TIME: 12:30 Assessment/Plan Assessment/Plan Assessment/Plan A 78 yo with locally advanced colon ca, -path confirms colon ca -he has very poor performance status and multiple co-morbidities -IN ICU on BiPAP -surgery has seen pt and feels he may not be an appropriate resection candidate -given patient's tenuous status this is understandable -given that he appears to have localized disease, surgical resection is optimal treatment if he ever becomes stable for surgery. typically radiation has no role in localized colon ca, radiation can play a role in palliative tx of met colon if painful site of metastatic disease for example. -but again given his multiple medical issues, a palliative rectal stent may be an initial approach Patient seen in collaboration with Dr Langley Result Diagram: 11/30/18 0449 11/30/18 0449 Results 24hrs Laboratory Tests Test 11/30/18 04:49 11/30/18 05:00 11/30/18 07:18 White Blood Count 8.1 Red Blood Count 4.26 L Hemoglobin 9.0 L Hematocrit 35.5 L Mean Corpuscular Volume 83.3 Mean Corpuscular Hemoglobin 21.1 L Mean Corpuscular 25.4 L Hemoglobin Concent Red Cell Distribution Width 31.8 H Platelet Count 239 # Mean Platelet Volume Immature Granulocytes % 0.600 H Neutrophils % 81.1 H Lymphocytes % 6.9 L Monocytes % 6.2 Eosinophils % 4.6 Basophils % 0.6 Nucleated Red Blood Cells % 0.0 Immature Granulocytes # 0.050 H Neutrophils # 6.6 Lymphocytes # 0.6 L Monocytes # 0.5 Eosinophils # 0.4 Basophils # 0.1 Nucleated Red Blood Cells # 0.0 Sodium Level 154 H Potassium Level 3.7 Chloride Level 108 Carbon Dioxide Level 35 H Anion Gap 11 Blood Urea Nitrogen 78 H Creatinine 2.01 H Est Glomerular Filtrat Rate mL/min Glucose Level 67 L Calcium Level 9.3 Creatine Kinase 22 L Creatine Kinase Index 6.9 Creatinine Kinase MB (Mass) 1.52 Troponin I 0.118 Blood Gas Specimen Source Blood arterial Arterial Blood Date Drawn 11/30/2018 5:57:34 AM Arterial Blood pH 7.308 L (Temp corrected) Arterial Blood pCO2 65.1 H (Temp correct) Arterial Blood pO2 75.4 L (Temp corrected) Arterial Blood HCO3 31.9 H Arterial Blood Base Excess 3.6 H Arterial Blood 94.1 L Oxygen Saturation Nilson Test ACCEPTAB Arterial Blood Gas Right Radial Puncture Site Arterial 1.8 Blood Carboxyhemoglobin Arterial Blood Methemoglobin 0.3 Blood Gas A-a O2 Differential 98.5 H Oxyhemoglobin Percent 92.1 L Blood Gas Temperature 37.0 Blood Gas Respiration Rate 16.0 Blood Gas Actual 16 Respiration Rate Blood Gas Modality BIPAP - S/T FiO2 35.0 Blood Gas Pressure Support 10 Blood Gas IPAP/EPAP Ratio 16/6 Blood Gas Notified Whom RTR Blood Gas Notified Time 11/30/2018 6:14:34 AM Bedside Glucose 70 Consultation Date/Type/Reason Admit Date/Time Nov 23, 2018 at 22:01 Initial Consult Date 11/24/18 Type of Consult oncology Reason for Consultation ANEMIA Requesting Provider: NAYANA GARCIA 24 HR Interval Summary Free Text/Dictation Unresponsive On BIPAP; NGT intact no family at bed side at present dw staff Subjective hx not possible: pt non-verbal Constitutional: requiring IVF, requiring O2 Exam/Review of Systems Vital Signs Vitals Vital Signs Date Temp Pulse Resp B/P (MAP) Pulse Ox O2 O2 Flow FiO2 Time Delivery Rate 11/30/18 94 31 120/55 100 10:00 (76) 11/30/18 99.1 BIPAP 08:00 11/30/18 35 04:17 11/28/18 8.0 23:00 Intake and Output 11/29/18 11/29/18 11/30/18 1515:00 23:00 07:00 IntakeIntake Total 160 ml OutputOutput Total 2150 ml 2301 ml 2050 ml BalanceBalance -1990 ml -2301 ml -2050 ml Exam Constitutional: non-verbal, frail Psych: nl mood/affect Eyes: nl lids ENMT: nl external ears & nose Respiratory: crackles/rales, diminished breath sounds (bilaterally) Cardiovascular: nl pulses Gastrointestinal: soft Musculoskeletal: muscle weakness, range of motion Extremities: edema Neurological: unresponsive Skin: nl turgor Medications Medications Current Medications Ondansetron HCl (Zofran Inj) 4 mg Q6H PRN IV NAUSEA AND/OR VOMITING; Start 11/23/18 at 22:30 Acetaminophen (Tylenol Liquid) 650 mg Q6H PRN PO PAIN LEVEL 1-3 OR FEVER; Start 11/23/18 at 22:30 Acetaminophen (Tylenol Supp) 650 mg Q4H PRN [place] PAIN LEVEL 1-3 OR FEVER; Start 11/23/18 at 22:30 Lorazepam (Ativan) 0.5 mg Q4H PRN IV ANXIETY Last administered on 11/29/18 20:00; Admin Dose 0.5 MG; Start 11/23/18 at 22:30 Atorvastatin Calcium (Lipitor) 20 mg HS PO Last administered on 11/29/18 21:43; Admin Dose 20 MG; Start 11/24/18 at 21:00 Albuterol/ Ipratropium (Duoneb) 3 ml Q4H RESP THERAPY PRN HHN SHORTNESS OF BREATH; Start 11/24/18 at 09:00 Aripiprazole (Abilify) 5 mg DAILY PO Last administered on 11/30/18 09:48; Admin Dose 5 MG; Start 11/24/18 at 09:30 Digoxin (Digoxin) 0.25 mg DAILY@1300 PO Last administered on 11/26/18 13:41; Admin Dose 0.25 MG; Start 11/24/18 at 13:00; Status Hold Escitalopram Oxalate (Lexapro) 20 mg DAILY PO Last administered on 11/30/18 09:49; Admin Dose 20 MG; Start 11/24/18 at 09:30 Loratadine (Claritin) 10 mg DAILY PO Last administered on 11/30/18 09:49; Admin Dose 10 MG; Start 11/24/18 at 10:00 Multivitamins Therapeutic (Theragran) 1 tab DAILY PO Last administered on 11/30/18 09:49; Admin Dose 1 TAB; Start 11/24/18 at 09:30 Potassium Chloride (Micro-K) 8 meq DAILY PO Last administered on 11/24/18 10:12; Admin Dose 8 MEQ; Start 11/24/18 at 10:00; Status Hold Tamsulosin HCl (Flomax) 0.4 mg HS PO Last administered on 11/29/18 21:43; Admin Dose 0.4 MG; Start 11/24/18 at 21:00 Calcium/Vitamin D (Oyster Shell/ Vit-D (500/200)) 1 tab DAILY PO Last administered on 11/30/18 09:51; Admin Dose 1 TAB; Start 11/24/18 at 09:30 Metoprolol Tartrate (Lopressor) 5 mg Q4H PRN IV HR>110 Hold SBP<100; Start 11/24/18 at 11:00 Atenolol (Tenormin) 25 mg DAILY PO Last administered on 11/30/18at 09:53; Admin Dose 25 MG; Start 11/25/18 at 14:00 Diltiazem HCl (Cardizem Sr) 120 mg DAILY PO ; Start 11/25/18 at 14:00; Status Hold Cefepime HCl 50 ml @ 100 mls/hr Q24H IVPB Last administered on 11/29/18at 13:27; Admin Dose 100 MLS/HR; Start 11/26/18 at 12:00 IV Flush (NS 10 ml) 10 ml PRN PRN IV IV PROTOCOL; Start 11/25/18 at 16:00 Hydralazine HCl (Apresoline) 25 mg Q8 PO Last administered on 11/30/18at 05:31; Admin Dose 25 MG; Start 11/26/18 at 22:00 Pantoprazole (Protonix Iv) 40 mg DAILY@06 IV Last administered on 11/30/18at 05:31; Admin Dose 40 MG; Start 11/29/18 at 06:00 Enoxaparin Sodium (Lovenox) 30 mg DAILY SC Last administered on 11/30/18at 09:50; Admin Dose 30 MG; Start 11/30/18 at 09:00 Dextrose/Sodium Chloride 1,000 ml @ 50 mls/hr Q20H IV Last administered on 11/30/18at 08:37; Admin Dose 50 MLS/HR; Start 11/30/18 at 07:30 Diagnostic Test (Pha) (Accu-Chek) 1 ea 02 XX ; Start 12/01/18 at 02:00 Insulin Aspart (Novolog Insulin Pen) (Adult SC Insulin - Mild Algorithm)... Q4 SC ; Start 11/30/18 at 09:00 Miscellaneous Information 1 ea NOTE XX ; Start 11/30/18 at 08:00 Glucose (Glutose) 15 gm Q15M PRN PO DECREASED GLUCOSE; Start 11/30/18 at 08:00 Glucose (Glutose) 22.5 gm Q15M PRN PO DECREASED GLUCOSE; Start 11/30/18 at 08:00 Dextrose (D50w Syringe) 25 ml Q15M PRN IV DECREASED GLUCOSE; Start 11/30/18 at 08:00 Dextrose (D50w Syringe) 50 ml Q15M PRN IV DECREASED GLUCOSE; Start 11/30/18 at 08:00 Glucagon (Glucagen) 1 mg Q15M PRN IM DECREASED GLUCOSE; Start 11/30/18 at 08:00 Glucose (Glutose) 15 gm Q15M PRN BUCCAL DECREASED GLUCOSE; Start 11/30/18 at 08:00 Aspirin (Aspirin) 325 mg DAILY NGT ; Start 11/30/18 at 12:00 DORIAN MOSS Nov 30, 2018 12:31 pm
[2018-11-30] MEDS: ASPIRIN 325 MG TAB NGT SCH (13:34)
[2018-11-30] MEDS: CEFEPIME 2GM/50 ML IVPB SCH (13:34)
--- NOTE | 2018-11-30 15:36 | PN ---
Date/Time of Note Date/Time of Note DATE: 11/30/18 TIME: 15:27 Assessment/Plan VTE Prophylaxis Risk score (from Nsg)>0 risk: 8 SCD applied (from Ns): No SCD contraindicated: other (no) Pharmacological prophylaxis: LMWH Lines/Catheters IV Catheter Type (from Nrsg): PICC Line Central line still needed: Yes Urinary Cath still in place: Yes Reason Cath still needed: terminal illness/intractable pain Assessment/Plan Assessment/Plan 78-year-old male recently diagnosed with new colon mass, who presents with: # Hypoxic and hypercapnic respiratory failure: Appears to be due to pulmonary edema and possible pneumonia. - Currently requiring BiPAP -Continue Supplemental oxygen, BiPAP as needed, bronchodilators -continue IV antibiotic, follow up final culture results, Tylenol as needed fever -Follow up pulmonary recommendations -DuoNeb's as needed # Sepsis: As evidenced by fever and tachycardia: Secondary to pneumonia -see #1. Slowly improving now as patient is been afebrile for the last 3 days -Again, continue broad-spectrum IV antibiotics -Follow-up final respiratory and blood culture results # Cardiac- elevated troponins: Likely secondary to #1 and #2-Status post treatment dose Lovenox in ER. Elevated troponins, per cardiology, likely a type 2 demand ischemia in the setting of fevers, hypercarbic respiratory failure -but currently down trending cardiac enzymes -Continue to trend troponin -Follow-up cardiology consult recommendations -no left heart cath at this time secondary to renal insufficiency # Sigmoid mass: Status post biopsy during recent hospitalization. 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 -Follow-up surgery, hematology oncology, GI team recommendations -to determine treatment options at this point for his adenocarcinoma regarding surgery, chemotherapy, radiation options-this will likely be more considered when patient is more medically optimized. - If he develops obstruction, he will need a palliative rectal stent. For now however it looks like he is passing stools. # Atrial fibrillation with RVR -resolved now -Continue to monitor, patient on beta-esther and digoxin, follow-up cardiology recommendations # Renal insufficiency: Oliguric acute on chronic renal failure due to Sepsis and Hemodynamics + obstructive uropathy. Urine output in the last 24-48 hours improved compared to earlier this admission. Has been on Bumex the last 2 days. Appreciate renal consult, Ballard catheter in place. -Continue Ballard, measure urine output carefully, continue. Bumex as ordered by renal team -Follow-up BMP results this morning, still pending, and recommendations from urology and renal teams #Hypernatremia - Likely from postobstructive diuresis. - Will start D5W # Diabetes: Sugar stable, continue insulin while in-house DVT: lovenox GI: PPI Code status: Full. Family wants everything done to treat his multiorgan failure and cancer. Result Diagram: 11/30/1844811/30/18448 Results 24hrs Laboratory Tests Test 11/30/18 04:49 11/30/18 05:00 11/30/18 07:18 11/30/18 13:38 White Blood Count 8.1 Red Blood Count 4.26 L Hemoglobin 9.0 L Hematocrit 35.5 L Mean Corpuscular 83.3 Volume Mean Corpuscular 21.1 L Hemoglobin Mean Corpuscular 25.4 L Hemoglobin Concent Red Cell 31.8 H Distribution Width Platelet Count 239 # Mean Platelet Volume Immature 0.600 H Granulocytes % Neutrophils % 81.1 H Lymphocytes % 6.9 L Monocytes % 6.2 Eosinophils % 4.6 Basophils % 0.6 Nucleated Red 0.0 Blood Cells % Immature 0.050 H Granulocytes # Neutrophils # 6.6 Lymphocytes # 0.6 L Monocytes # 0.5 Eosinophils # 0.4 Basophils # 0.1 Nucleated Red 0.0 Blood Cells # Sodium Level 154 H Potassium Level 3.7 Chloride Level 108 Carbon Dioxide 35 H Level Anion Gap 11 Blood Urea 78 H Nitrogen Creatinine 2.01 H Est Glomerular Filtrat Rate mL/min Glucose Level 67 L Calcium Level 9.3 Creatine Kinase 22 L Creatine Kinase 6.9 Index Creatinine Kinase 1.52 MB (Mass) Troponin I 0.118 Blood Gas Specimen Blood arterial Source Arterial Blood 11/30/2018 5:57:34 Date Drawn AM Arterial Blood pH 7.308 L (Temp corrected) Arterial Blood 65.1 H pCO2 (Temp correct) Arterial Blood pO2 75.4 L (Temp corrected) Arterial Blood 31.9 H HCO3 Arterial Blood 3.6 H Base Excess Arterial Blood 94.1 L Oxygen Saturation Nilson Test ACCEPTAB Arterial Blood Gas Right Radial Puncture Site Arterial 1.8 Blood Carboxyhemog lobin Arterial Blood 0.3 Methemoglobin Blood Gas A-a O2 98.5 H Differential Oxyhemoglobin 92.1 L Percent Blood Gas 37.0 Temperature Blood Gas 16.0 Respiration Rate Blood Gas Actual 16 Respiration Rate Blood Gas Modality BIPAP - S/T FiO2 35.0 Blood Gas Pressure 10 Support Blood Gas 16/6 IPAP/EPAP Ratio Blood Gas Notified RTR Whom Blood Gas Notified 11/30/2018 6:14:34 Time AM Bedside Glucose 70 77 Subjective 24 Hr Interval Summary Free Text/Dictation No acute overnight events. Patient is still struggling on BiPAP; intermittently trying to take the mask off requiring ativan. Exam/Review of Systems Vital Signs Vitals Vital Signs Date Temp Pulse Resp B/P (MAP) Pulse Ox O2 O2 Flow FiO2 Time Delivery Rate 11/30/18 81 106/52 78 13:00 (70) 11/30/18 98.7 18 12:00 11/30/18 35 11:30 11/30/18 BIPAP 08:00 11/28/18 8.0 23:00 Intake and Output 11/29/18 11/29/18 11/30/18 1414:59 22:59 06:59 IntakeIntake Total 50 ml 110 ml OutputOutput Total 2050 ml 2376 ml 2275 ml BalanceBalance -2000 ml -2266 ml -2275 ml Exam Const: Obese man lying in bed on CPAP, minimally responsive Head: Atraumatic, normocephalic Eyes: Normal Conjunctiva, PERRLA, EOMI, normal sclera, no nystagmus ENT: Normal External Ears, Nose and Mouth, dry mucus membranes. Neck: Supple Resp: Some increased work of breathing, still some bilateral rhonchi and wheezes decreased breath sounds in the bases Cardio: Regular rate and rhythm, no murmurs, S1 S2 present Abd: Soft, non tender x 4, slight distention. Normal bowel sounds, no guarding or rebound Ext: No cyanosis, or edema Medications Medications Current Medications Ondansetron HCl (Zofran Inj) 4 mg Q6H PRN IV NAUSEA AND/OR VOMITING; Start 11/23/18 at 22:30 Acetaminophen (Tylenol Liquid) 650 mg Q6H PRN PO PAIN LEVEL 1-3 OR FEVER; Start 11/23/18 at 22:30 Acetaminophen (Tylenol Supp) 650 mg Q4H PRN [place] PAIN LEVEL 1-3 OR FEVER; Start 11/23/18 at 22:30 Lorazepam (Ativan) 0.5 mg Q4H PRN IV ANXIETY Last administered on 11/29/18 20:00; Admin Dose 0.5 MG; Start 11/23/18 at 22:30 Atorvastatin Calcium (Lipitor) 20 mg HS PO Last administered on 11/29/18 21:43; Admin Dose 20 MG; Start 11/24/18 at 21:00 Albuterol/ Ipratropium (Duoneb) 3 ml Q4H RESP THERAPY PRN HHN SHORTNESS OF BREATH; Start 11/24/18 at 09:00 Aripiprazole (Abilify) 5 mg DAILY PO Last administered on 11/30/18 09:48; Admin Dose 5 MG; Start 11/24/18 at 09:30 Digoxin (Digoxin) 0.25 mg DAILY@1300 PO Last administered on 11/26/18 13:41; Admin Dose 0.25 MG; Start 11/24/18 at 13:00; Status Hold Escitalopram Oxalate (Lexapro) 20 mg DAILY PO Last administered on 11/30/18 09:49; Admin Dose 20 MG; Start 11/24/18 at 09:30 Loratadine (Claritin) 10 mg DAILY PO Last administered on 11/30/18 09:49; Admin Dose 10 MG; Start 11/24/18 at 10:00 Multivitamins Therapeutic (Theragran) 1 tab DAILY PO Last administered on 11/30/18 09:49; Admin Dose 1 TAB; Start 11/24/18 at 09:30 Potassium Chloride (Micro-K) 8 meq DAILY PO Last administered on 11/24/18 10:12; Admin Dose 8 MEQ; Start 11/24/18 at 10:00; Status Hold Tamsulosin HCl (Flomax) 0.4 mg HS PO Last administered on 11/29/18 21:43; Admin Dose 0.4 MG; Start 11/24/18 at 21:00 Calcium/Vitamin D (Oyster Shell/ Vit-D (500/200)) 1 tab DAILY PO Last admin istered on 11/30/18at 09:51; Admin Dose 1 TAB; Start 11/24/18 at 09:30 Metoprolol Tartrate (Lopressor) 5 mg Q4H PRN IV HR>110 Hold SBP<100; Start 11/24/18 at 11:00 Atenolol (Tenormin) 25 mg DAILY PO Last administered on 11/30/18at 09:53; Admin Dose 25 MG; Start 11/25/18 at 14:00 Diltiazem HCl (Cardizem Sr) 120 mg DAILY PO ; Start 11/25/18 at 14:00; Status Hold Cefepime HCl 50 ml @ 100 mls/hr Q24H IVPB Last administered on 11/30/18at 13:34; Admin Dose 100 MLS/HR; Start 11/26/18 at 12:00 IV Flush (NS 10 ml) 10 ml PRN PRN IV IV PROTOCOL; Start 11/25/18 at 16:00 Hydralazine HCl (Apresoline) 25 mg Q8 PO Last administered on 11/30/18at 05:31; Admin Dose 25 MG; Start 11/26/18 at 22:00 Pantoprazole (Protonix Iv) 40 mg DAILY@06 IV Last administered on 11/30/18at 05:31; Admin Dose 40 MG; Start 11/29/18 at 06:00 Enoxaparin Sodium (Lovenox) 30 mg DAILY SC Last administered on 11/30/18at 09:50; Admin Dose 30 MG; Start 11/30/18 at 09:00 Dextrose/Sodium Chloride 1,000 ml @ 50 mls/hr Q20H IV Last administered on 11/30/18at 08:37; Admin Dose 50 MLS/HR; Start 11/30/18 at 07:30 Diagnostic Test (Pha) (Accu-Chek) 1 ea 02 XX ; Start 12/01/18 at 02:00 Insulin Aspart (Novolog Insulin Pen) (Adult SC Insulin - Mild Algorithm)... Q4 SC ; Start 11/30/18 at 09:00 Miscellaneous Information 1 ea NOTE XX ; Start 11/30/18 at 08:00 Glucose (Glutose) 15 gm Q15M PRN PO DECREASED GLUCOSE; Start 11/30/18 at 08:00 Glucose (Glutose) 22.5 gm Q15M PRN PO DECREASED GLUCOSE; Start 11/30/18 at 08:00 Dextrose (D50w Syringe) 25 ml Q15M PRN IV DECREASED GLUCOSE; Start 11/30/18 at 08:00 Dextrose (D50w Syringe) 50 ml Q15M PRN IV DECREASED GLUCOSE; Start 11/30/18 at 08:00 Glucagon (Glucagen) 1 mg Q15M PRN IM DECREASED GLUCOSE; Start 11/30/18 at 08:00 Glucose (Glutose) 15 gm Q15M PRN BUCCAL DECREASED GLUCOSE; Start 11/30/18 at 08:00 Aspirin (Aspirin) 325 mg DAILY NGT Last administered on 11/30/18at 13:34; Admin Dose 325 MG; Start 11/30/18 at 12:00 TWAN PATTERSON MD Nov 30, 2018 15:36
[2018-11-30] MEDS: DEXTROSE 5% 1,000 ML IV SCH (16:29)
--- NOTE | 2018-11-30 18:45 | NUR ---
pt stable, pt was on king mask for 2 hours, put back on bipap due to ABG results, pt is on the same BiPap settings, family remains at bedside and POC updated all shift, Blood glucose WNL today and pt remains in D5W @50 ml/hr, pt turned q2 hours with venilex ointment applied to buttocks, no other issues with pt no s/sx of distress, VSS WNL safety measures are in place, NG tube remains in place. BUE and BUE elevated all shift.
[2018-11-30] MEDS: TAMSULOSIN (SR) 0.4 MG CAP PO SCH (20:59)
[2018-11-30] MEDS: ATORVASTATIN 20 MG TAB PO SCH (20:59)
[2018-11-30] MEDS ORDERED: DESMOPRESSIN 4 MCG INJ IV ONE (21:30)
[2018-12-01] VITALS (28 sets, daily range): BP systolic 91–122; BP diastolic 31–69; PULSE 70–89; RESP 9–25
[2018-12-01] MEDS: ACETAMINOPHEN 650MG/20.3ML CUP PO PRN ×2 (00:21→20:18)
[2018-12-01] MEDS: Insulin NOVOLOG SS MILD Algorithm (NPO/TPN/ENTERAL FEEDS) SC SCH ×6 (01:00→20:27)
--- NOTE | 2018-12-01 01:00 | NUR ---
pt non verbal withdraws to pain on bipap sat 93%.HOB elevated .IVF infusing well via PICC left upper arm. hess cath patent draining clear urine output.
[2018-12-01] MEDS: ACCU-CHEK XX SCH (02:00)
[2018-12-01] MEDS: PANTOPRAZOLE 40 MG INJ IV SCH (05:35)
--- NOTE | 2018-12-01 06:22 | NUR ---
eoss; pt remains non verbal moves rt and left arm to touch . on cont BIPAP 18/6, rate 20, FIO2 40% ngt clamped .f/c draining cloudy yellow urine .son called update given re pts condition. awaiting labs will cont to monitor pt.
[2018-12-01] MEDS ORDERED: POTASSIUM CHLORIDE 20 MEQ POWDER FOR ORAL SOLN NGT ONE (08:30)
[2018-12-01] MEDS: ESCITALOPRAM 10 MG TAB PO SCH (09:05)
[2018-12-01] MEDS: ASPIRIN 325 MG TAB NGT SCH (09:05)
[2018-12-01] MEDS: ARIPIPRAZOLE 5 MG TAB PO SCH (09:05)
[2018-12-01] MEDS: LORATADINE 10 MG TAB PO SCH (09:06)
[2018-12-01] MEDS: MULTIVITAMINS THERAPEUTIC TAB PO SCH (09:06)
[2018-12-01] MEDS: CALCIUM/VITAMIN D (500/200) TAB PO SCH (09:06)
[2018-12-01] MEDS: ATENOLOL 50 MG TAB PO SCH (09:06)
[2018-12-01] MEDS: ENOXAPARIN 30 MG/0.3 ML SYG SC SCH (09:07)
[2018-12-01] MEDS: DEXTROSE 5% 1,000 ML IV SCH ×3 (09:24→22:30)
[2018-12-01] MEDS: BALSAM PERU/CASTOR OIL 60 GM TUBE TOP SCH ×2 (09:24→20:27)
--- NOTE | 2018-12-01 11:00 | CONS ---
Date/Time of Note Date/Time of Note DATE: 12/01/18 TIME: 11:00 Assessment/Plan Assessment/Plan Assessment/Plan 1. Oliguric acute on chronic renal failure due to Sepsis and Hemodynamics + obstructive uropathy 2. atrial fibrillation with RVR 3. acute hypoxemic and hypercapnic resp failure due to PNA - on BIPAP 4. Sepsis 5. Positive troponin 6. BPH on flomax 7. Colon CA Plan: BUN/Cr 65/2.04,, Na trended upto 154- K 3.4- KCL 20mEQ IV x 1 dose now making adequate urine , - Discussed with son about in details- they want to keep pt full code and want to do HD if needed will follow up Result Diagram: 12/01/18 0410 12/01/18 0946 Results 24hrs Laboratory Tests Test 11/30/18 13:38 11/30/18 16:41 11/30/18 18:00 11/30/18 20:58 Bedside Glucose 77 84 95 Blood Gas Blood arterial Specimen Source Arterial Blood 11/30/2018 6:20:09 Date Drawn PM Arterial Blood 7.308 L pH (Temp corrected) Arterial Blood 80.3 *H pCO2 (Temp correct) Arterial Blood 66.1 L pO2 (Temp corrected) Arterial Blood 39.3 H HCO3 Arterial Blood 10.7 H Base Excess Arterial Blood 93.4 L Oxygen Saturatio n Nilson Test ACCEPTAB Arterial Blood Right Radial Gas Puncture Site Arterial 0.9 Blood Carboxyhem oglobin Arterial Blood 0.4 Methemoglobin Blood Gas A-a O2 200.1 H Differential Oxyhemoglobin 92.2 L Percent Blood Gas 37.0 Temperature Blood Gas 0 Respiration Rate Blood Gas Actual 18 Respiration Rate Blood Gas MASK - VENTI Modality FiO2 50.0 Blood Gas Burke. [place] Critical Value Read Back Blood Gas RDIX Notified Whom Blood Gas 11/30/2018 6:31:25 Notified Time PM Test 11/30/18 21:38 12/01/18 01:10 12/01/18 04:10 12/01/18 04:45 Sodium Level 153 H 155 H Potassium Level 3.4 L 3.2 L Chloride Level 108 108 Carbon Dioxide 39 H 40 H Level Anion Gap 6 7 Blood Urea 71 H 68 H Nitrogen Creatinine 1.68 H 1.96 H Est Glomerular Filtrat Rate mL/min Glucose Level 103 107 Calcium Level 9.2 9.1 Bedside Glucose 115 97 White Blood 6.8 Count Red Blood Count 4.14 L Hemoglobin 8.8 L Hematocrit 34.9 L Mean Corpuscular 84.3 Volume Mean Corpuscular 21.3 L Hemoglobin Mean Corpuscular 25.2 L Hemoglobin Sonali nt Red Cell 31.8 H Distribution Width Platelet Count 263 Mean Platelet Volume Immature 0.400 Granulocytes % Neutrophils % 73.0 Lymphocytes % 10.4 L Monocytes % 11.5 H Eosinophils % 4.0 Basophils % 0.7 Nucleated Red 0.0 Blood Cells % Immature 0.030 Granulocytes # Neutrophils # 4.9 Lymphocytes # 0.7 L Monocytes # 0.8 Eosinophils # 0.3 Basophils # 0.1 Nucleated Red 0.0 Blood Cells # Phosphorus Level 4.1 Magnesium Level 2.1 Test 12/01/18 07:00 12/01/18 09:23 12/01/18 09:46 Blood Gas Blood arterial Specimen Source Arterial Blood 12/01/2018 7:50:29 Date Drawn AM Arterial Blood 7.357 pH (Temp corrected) Arterial Blood 78.2 H pCO2 (Temp correct) Arterial Blood 88.4 pO2 (Temp corrected) Arterial Blood 42.9 *H HCO3 Arterial Blood 14.7 H Base Excess Arterial Blood 96.0 Oxygen Saturatio n Nilson Test ACCEPTAB Arterial Blood Right Radial Gas Puncture Site Arterial 1.1 Blood Carboxyhem oglobin Arterial Blood 0.3 Methemoglobin Blood Gas A-a O2 180.1 H Differential Oxyhemoglobin 94.7 Percent Blood Gas 37.0 Temperature Blood Gas 18.0 Respiration Rate Blood Gas Actual 22 Respiration Rate Blood Gas MASK - BIPAP Modality FiO2 50.0 Blood Gas 12 Pressure Support Blood Gas 18/6 IPAP/EPAP Ratio Blood Gas Ava TAN RN Critical Value Read Back Blood Gas DT Notified Whom Blood Gas 12/01/2018 8:07:02 Notified Time AM Bedside Glucose 98 Sodium Level 155 H Potassium Level 4.0 Chloride Level 107 Carbon Dioxide 38 H Level Anion Gap 10 Blood Urea 69 H Nitrogen Creatinine 1.87 H Est Glomerular Filtrat Rate mL/min Glucose Level 109 Calcium Level 9.1 Consultation Date/Type/Reason Admit Date/Time Nov 23, 2018 at 22:01 Initial Consult Date 11/24/18 Type of Consult NEPHROLOGY Requesting Provider: NAYANA GARCIA Exam/Review of Systems Vital Signs Vitals Vital Signs Date Temp Pulse Resp B/P (MAP) Pulse Ox O2 O2 Flow FiO2 Time Delivery Rate 12/01/18 76 19 104/56 BIPAP 10:00 (72) 12/01/18 96 40 09:39 12/01/18 98.2 07:00 11/28/18 8.0 23:00 Intake and Output 11/30/18 11/30/18 12/01/18 1515:00 23:00 07:00 IntakeIntake Total 70 ml 860 ml 80 ml OutputOutput Total 1625 ml 1651 ml 715 ml BalanceBalance -1555 ml -791 ml -635 ml Exam Constitutional: moderate distress, confused disoriented on BIPAP Respiratory: Bilateral coarse BS+, basilar crackles Cardiovascular: regular rate and rhythm, nl pulses Gastrointestinal: soft, non-tender Musculoskeletal: nl extremities to inspection, muscle weakness, swelling Neurological: confused, lethargic Medications Medications Current Medications Ondansetron HCl (Zofran Inj) 4 mg Q6H PRN IV NAUSEA AND/OR VOMITING; Start 11/23/18 at 22:30 Acetaminophen (Tylenol Liquid) 650 mg Q6H PRN PO PAIN LEVEL 1-3 OR FEVER Last administered on 12/01/18at 00:21; Admin Dose 650 MG; Start 11/23/18 at 22:30 Acetaminophen (Tylenol Supp) 650 mg Q4H PRN [place] PAIN LEVEL 1-3 OR FEVER; Start 11/23/18 at 22:30 Lorazepam (Ativan) 0.5 mg Q4H PRN IV ANXIETY Last administered on 11/29/18at 20:00; Admin Dose 0.5 MG; Start 11/23/18 at 22:30 Atorvastatin Calcium (Lipitor) 20 mg HS PO Last administered on 11/30/18at 20:59; Admin Dose 20 MG; Start 11/24/18 at 21:00 Albuterol/ Ipratropium (Duoneb) 3 ml Q4H RESP THERAPY PRN HHN SHORTNESS OF BREATH; Start 11/24/18 at 09:00 Aripiprazole (Abilify) 5 mg DAILY PO Last administered on 12/01/18at 09:05; Admin Dose 5 MG; Start 11/24/18 at 09:30 Digoxin (Digoxin) 0.25 mg DAILY@1300 PO Last administered on 1/4/19at 13:41; Admin Dose 0.25 MG; Start 11/24/18 at 13:00; Status Hold Escitalopram Oxalate (Lexapro) 20 mg DAILY PO Last administered on 12/01/18 09:05; Admin Dose 20 MG; Start 11/24/18 at 09:30 Loratadine (Claritin) 10 mg DAILY PO Last administered on 12/01/18 09:06; Admin Dose 10 MG; Start 11/24/18 at 10:00 Multivitamins Therapeutic (Theragran) 1 tab DAILY PO Last administered on 12/01/18 09:06; Admin Dose 1 TAB; Start 11/24/18 at 09:30 Potassium Chloride (Micro-K) 8 meq DAILY PO Last administered on 11/24/18 10:12; Admin Dose 8 MEQ; Start 11/24/18 at 10:00; Status Hold Tamsulosin HCl (Flomax) 0.4 mg HS PO Last administered on 11/30/18 20:59; Admin Dose 0.4 MG; Start 11/24/18 at 21:00 Calcium/Vitamin D (Oyster Shell/ Vit-D (500/200)) 1 tab DAILY PO Last administered on 12/01/18 09:06; Admin Dose 1 TAB; Start 11/24/18 at 09:30 Metoprolol Tartrate (Lopressor) 5 mg Q4H PRN IV HR>110 Hold SBP<100; Start 11/24/18 at 11:00 Atenolol (Tenormin) 25 mg DAILY PO Last administered on 12/01/18 09:06; Admin Dose 25 MG; Start 11/25/18 at 14:00 Diltiazem HCl (Cardizem Sr) 120 mg DAILY PO ; Start 11/25/18 at 14:00; Status Hold Cefepime HCl 50 ml @ 100 mls/hr Q24H IVPB Last administered on 11/30/18 13:34; Admin Dose 100 MLS/HR; Start 11/26/18 at 12:00 IV Flush (NS 10 ml) 10 ml PRN PRN IV IV PROTOCOL; Start 11/25/18 at 16:00 Hydralazine HCl (Apresoline) 25 mg Q8 PO Last administered on 12/01/18 05:36; Admin Dose 25 MG; Start 11/26/18 at 22:00 Pantoprazole (Protonix Iv) 40 mg DAILY@06 IV Last administered on 12/01/18at 05:35; Admin Dose 40 MG; Start 11/29/18 at 06:00 Enoxaparin Sodium (Lovenox) 30 mg DAILY SC Last administered on 12/01/18at 09:07; Admin Dose 30 MG; Start 11/30/18 at 09:00 Dextrose/Sodium Chloride 1,000 ml @ 50 mls/hr Q20H IV Last administered on 11/30/18at 08:37; Admin Dose 50 MLS/HR; Start 11/30/18 at 07:30; Status Hold Diagnostic Test (Pha) (Accu-Chek) 1 ea 02 XX ; Start 12/01/18 at 02:00 Insulin Aspart (Novolog Insulin Pen) (Adult SC Insulin - Mild Algorithm)... Q4 SC ; Start 11/30/18 at 09:00 Miscellaneous Information 1 ea NOTE XX ; Start 11/30/18 at 08:00 Glucose (Glutose) 15 gm Q15M PRN PO DECREASED GLUCOSE; Start 11/30/18 at 08:00 Glucose (Glutose) 22.5 gm Q15M PRN PO DECREASED GLUCOSE; Start 11/30/18 at 08:00 Dextrose (D50w Syringe) 25 ml Q15M PRN IV DECREASED GLUCOSE; Start 11/30/18 at 08:00 Dextrose (D50w Syringe) 50 ml Q15M PRN IV DECREASED GLUCOSE; Start 11/30/18 at 08:00 Glucagon (Glucagen) 1 mg Q15M PRN IM DECREASED GLUCOSE; Start 11/30/18 at 08:00 Glucose (Glutose) 15 gm Q15M PRN BUCCAL DECREASED GLUCOSE; Start 11/30/18 at 08:00 Aspirin (Aspirin) 325 mg DAILY NGT Last administered on 12/01/18at 09:05; Admin Dose 325 MG; Start 11/30/18 at 12:00 Dextrose 1,000 ml @ 100 mls/hr Q10H IV Last administered on 12/01/18at 09:24; Admin Dose 100 MLS/HR; Start 11/30/18 at 15:30 RENAN HERNANDEZ MD Dec 01, 2018 11:00
[2018-12-01] MEDS: CEFEPIME 2GM/50 ML IVPB SCH (11:45)
--- NOTE | 2018-12-01 13:07 | CONS ---
Date/Time of Note Date/Time of Note DATE: 12/01/18 TIME: 13:07 Assessment/Plan Assessment/Plan Hospital Course unfortunate 78 yo with what appears to be locally advanced colon ca, path pending -he has very poor performance status and multiple co-morbidities -he is back in the ICU on BiPAP, Hypoxic and hypercapnic respiratory failure due to pulmonary edema and possible pneumonia, on abx -surgery has seen pt and feels he may not be an appropriate resection candidate -given patient's tenuous status this is understandable -path confirms colon ca -given that he appears to have localized disease, surgical resection is optimal treatment if he ever becomes stable for surgery. typically radiation has no role in localized colon ca, radiation can play a role in palliative tx of met colon if painful site of metastatic disease for example. -but again given his multiple medical issues, a palliative rectal stent may be an initial approach -I have discussed with son at bedside earlier in the week who understands oncologic tx at this time not feasible until pt stabilizes #ANEMIA due to colon mass, hgb stable keep >7 Result Diagram: 12/01/18 0410 12/01/18 0946 Results 24hrs Laboratory Tests Test 11/30/18 13:38 11/30/18 16:41 11/30/18 18:00 11/30/18 20:58 Bedside Glucose 77 84 95 Blood Gas Blood arterial Specimen Source Arterial Blood 11/30/2018 6:20:09 Date Drawn PM Arterial Blood 7.308 L pH (Temp corrected) Arterial Blood 80.3 *H pCO2 (Temp correct) Arterial Blood 66.1 L pO2 (Temp corrected) Arterial Blood 39.3 H HCO3 Arterial Blood 10.7 H Base Excess Arterial Blood 93.4 L Oxygen Saturatio n Nilson Test ACCEPTAB Arterial Blood Right Radial Gas Puncture Site Arterial 0.9 Blood Carboxyhem oglobin Arterial Blood 0.4 Methemoglobin Blood Gas A-a O2 200.1 H Differential Oxyhemoglobin 92.2 L Percent Blood Gas 37.0 Temperature Blood Gas 0 Respiration Rate Blood Gas Actual 18 Respiration Rate Blood Gas MASK - VENTI Modality FiO2 50.0 Blood Gas L. RYLAND Critical Value Read Back Blood Gas RDIX Notified Whom Blood Gas 11/30/2018 6:31:25 Notified Time PM Test 11/30/18 21:38 12/01/18 01:10 12/01/18 04:10 12/01/18 04:45 Sodium Level 153 H 155 H Potassium Level 3.4 L 3.2 L Chloride Level 108 108 Carbon Dioxide 39 H 40 H Level Anion Gap 6 7 Blood Urea 71 H 68 H Nitrogen Creatinine 1.68 H 1.96 H Est Glomerular Filtrat Rate mL/min Glucose Level 103 107 Calcium Level 9.2 9.1 Bedside Glucose 115 97 White Blood 6.8 Count Red Blood Count 4.14 L Hemoglobin 8.8 L Hematocrit 34.9 L Mean Corpuscular 84.3 Volume Mean Corpuscular 21.3 L Hemoglobin Mean Corpuscular 25.2 L Hemoglobin Sonali nt Red Cell 31.8 H Distribution Width Platelet Count 263 Mean Platelet Volume Immature 0.400 Granulocytes % Neutrophils % 73.0 Lymphocytes % 10.4 L Monocytes % 11.5 H Eosinophils % 4.0 Basophils % 0.7 Nucleated Red 0.0 Blood Cells % Immature 0.030 Granulocytes # Neutrophils # 4.9 Lymphocytes # 0.7 L Monocytes # 0.8 Eosinophils # 0.3 Basophils # 0.1 Nucleated Red 0.0 Blood Cells # Phosphorus Level 4.1 Magnesium Level 2.1 Test 12/01/18 07:00 12/01/18 09:23 12/01/18 09:46 12/01/18 11:47 Blood Gas Blood arterial Specimen Source Arterial Blood 12/01/2018 7:50:29 Date Drawn AM Arterial Blood 7.357 pH (Temp corrected) Arterial Blood 78.2 H pCO2 (Temp correct) Arterial Blood 88.4 pO2 (Temp corrected) Arterial Blood 42.9 *H HCO3 Arterial Blood 14.7 H Base Excess Arterial Blood 96.0 Oxygen Saturatio n Nilson Test ACCEPTAB Arterial Blood Right Radial Gas Puncture Site Arterial 1.1 Blood Carboxyhem oglobin Arterial Blood 0.3 Methemoglobin Blood Gas A-a O2 180.1 H Differential Oxyhemoglobin 94.7 Percent Blood Gas 37.0 Temperature Blood Gas 18.0 Respiration Rate Blood Gas Actual 22 Respiration Rate Blood Gas MASK - BIPAP Modality FiO2 50.0 Blood Gas 12 Pressure Support Blood Gas 18/6 IPAP/EPAP Ratio Blood Gas Ava TAN RN Critical Value Read Back Blood Gas DT Notified Whom Blood Gas 12/01/2018 8:07:02 Notified Time AM Bedside Glucose 98 118 Sodium Level 155 H Potassium Level 4.0 Chloride Level 107 Carbon Dioxide 38 H Level Anion Gap 10 Blood Urea 69 H Nitrogen Creatinine 1.87 H Est Glomerular Filtrat Rate mL/min Glucose Level 109 Calcium Level 9.1 Consultation Date/Type/Reason Admit Date/Time Nov 23, 2018 at 22:01 Initial Consult Date 11/25/18 Requesting Provider: NAYANA GARCIA 24 HR Interval Summary Free Text/Dictation pt resting Exam/Review of Systems Vital Signs Vitals Vital Signs Date Temp Pulse Resp B/P (MAP) Pulse Ox O2 O2 Flow FiO2 Time Delivery Rate 12/01/18 97 70 12:42 12/01/18 78 25 95/62 (73) High Flow 12:00 12/01/18 98.2 07:00 11/28/18 8.0 23:00 Intake and Output 11/30/18 11/30/18 12/01/18 1515:00 23:00 07:00 IntakeIntake Total 70 ml 860 ml 80 ml OutputOutput Total 1625 ml 1651 ml 715 ml BalanceBalance -1555 ml -791 ml -635 ml Medications Medications Current Medications Ondansetron HCl (Zofran Inj) 4 mg Q6H PRN IV NAUSEA AND/OR VOMITING; Start 11/23/18 at 22:30 Acetaminophen (Tylenol Liquid) 650 mg Q6H PRN PO PAIN LEVEL 1-3 OR FEVER Last administered on 12/01/18at 00:21; Admin Dose 650 MG; Start 11/23/18 at 22:30 Acetaminophen (Tylenol Supp) 650 mg Q4H PRN [place] PAIN LEVEL 1-3 OR FEVER; Start 11/23/18 at 22:30 Lorazepam (Ativan) 0.5 mg Q4H PRN IV ANXIETY Last administered on 11/29/18at 20:00; Admin Dose 0.5 MG; Start 11/23/18 at 22:30 Atorvastatin Calcium (Lipitor) 20 mg HS PO Last administered on 11/30/18at 20:59; Admin Dose 20 MG; Start 11/24/18 at 21:00 Albuterol/ Ipratropium (Duoneb) 3 ml Q4H RESP THERAPY PRN HHN SHORTNESS OF BREATH; Start 11/24/18 at 09:00 Aripiprazole (Abilify) 5 mg DAILY PO Last administered on 12/01/18at 09:05; Admin Dose 5 MG; Start 11/24/18 at 09:30 Digoxin (Digoxin) 0.25 mg DAILY@1300 PO Last administered on 11/26/18 13:41; Admin Dose 0.25 MG; Start 11/24/18 at 13:00; Status Hold Escitalopram Oxalate (Lexapro) 20 mg DAILY PO Last administered on 12/01/18 09:05; Admin Dose 20 MG; Start 11/24/18 at 09:30 Loratadine (Claritin) 10 mg DAILY PO Last administered on 12/01/18 09:06; Admin Dose 10 MG; Start 11/24/18 at 10:00 Multivitamins Therapeutic (Theragran) 1 tab DAILY PO Last administered on 12/01/18 09:06; Admin Dose 1 TAB; Start 11/24/18 at 09:30 Potassium Chloride (Micro-K) 8 meq DAILY PO Last administered on 11/24/18 10:12; Admin Dose 8 MEQ; Start 11/24/18 at 10:00; Status Hold Tamsulosin HCl (Flomax) 0.4 mg HS PO Last administered on 11/30/18 20:59; Admin Dose 0.4 MG; Start 11/24/18 at 21:00 Calcium/Vitamin D (Oyster Shell/ Vit-D (500/200)) 1 tab DAILY PO Last administered on 12/01/18 09:06; Admin Dose 1 TAB; Start 11/24/18 at 09:30 Metoprolol Tartrate (Lopressor) 5 mg Q4H PRN IV HR>110 Hold SBP<100; Start 11/24/18 at 11:00 Atenolol (Tenormin) 25 mg DAILY PO Last administered on 12/01/18 09:06; Admin Dose 25 MG; Start 11/25/18 at 14:00 Diltiazem HCl (Cardizem Sr) 120 mg DAILY PO ; Start 11/25/18 at 14:00; Status Hold Cefepime HCl 50 ml @ 100 mls/hr Q24H IVPB Last administered on 12/01/18at 11:45; Admin Dose 100 MLS/HR; Start 11/26/18 at 12:00 IV Flush (NS 10 ml) 10 ml PRN PRN IV IV PROTOCOL; Start 11/25/18 at 16:00 Hydralazine HCl (Apresoline) 25 mg Q8 PO Last administered on 12/01/18at 05:36; Admin Dose 25 MG; Start 11/26/18 at 22:00 Pantoprazole (Protonix Iv) 40 mg DAILY@06 IV Last administered on 12/01/18at 05:35; Admin Dose 40 MG; Start 11/29/18 at 06:00 Enoxaparin Sodium (Lovenox) 30 mg DAILY SC Last administered on 12/01/18at 09:07; Admin Dose 30 MG; Start 11/30/18 at 09:00 Dextrose/Sodium Chloride 1,000 ml @ 50 mls/hr Q20H IV Last administered on 11/30/18at 08:37; Admin Dose 50 MLS/HR; Start 11/30/18 at 07:30; Status Hold Diagnostic Test (Pha) (Accu-Chek) 1 ea 02 XX ; Start 12/01/18 at 02:00 Insulin Aspart (Novolog Insulin Pen) (Adult SC Insulin - Mild Algorithm)... Q4 SC ; Start 11/30/18 at 09:00 Miscellaneous Information 1 ea NOTE XX ; Start 11/30/18 at 08:00 Glucose (Glutose) 15 gm Q15M PRN PO DECREASED GLUCOSE; Start 11/30/18 at 08:00 Glucose (Glutose) 22.5 gm Q15M PRN PO DECREASED GLUCOSE; Start 11/30/18 at 08:00 Dextrose (D50w Syringe) 25 ml Q15M PRN IV DECREASED GLUCOSE; Start 11/30/18 at 08:00 Dextrose (D50w Syringe) 50 ml Q15M PRN IV DECREASED GLUCOSE; Start 11/30/18 at 08:00 Glucagon (Glucagen) 1 mg Q15M PRN IM DECREASED GLUCOSE; Start 11/30/18 at 08:00 Glucose (Glutose) 15 gm Q15M PRN BUCCAL DECREASED GLUCOSE; Start 11/30/18 at 08:00 Aspirin (Aspirin) 325 mg DAILY NGT Last administered on 12/01/18at 09:05; Admin Dose 325 MG; Start 11/30/18 at 12:00 Dextrose 1,000 ml @ 100 mls/hr Q10H IV Last administered on 12/01/18at 11:45; Admin Dose 100 MLS/HR; Start 11/30/18 at 15:30 TEO LOZOYA Dec 01, 2018 13:07
--- NOTE | 2018-12-01 13:56 | CONS ---
Date/Time of Note Date/Time of Note DATE: 12/01/18 TIME: 13:50 Assessment/Plan Assessment/Plan Hospital Course IMPRESSION: 1. Non-ST elevation myocardial infarction, currently down trending cardiac enzymes likely a type 2 demand infarct in the setting of fevers, hypercarbic respiratory failure.-downtrended cardiac enzymes. NO cp. Echo this admit 11/24 with NL EF 55% 2. Abnormal electrocardiogram. 3. Right bundle branch block. 4. Colonic mass. 5. Anemia. 6. Renal failure-worsening 7. Leukocytosis. 8. Coagulopathy. 9. Sepsis. 10. Atrial fibrillation-now in SR 11.CHF-diastolic acute on chronic Recc: -ICU -Continue asa -Continue hydralazine/atenolol as tolerated -Continue broad spectrum abx's and f/u cx data -Continue Bumex -s/p family discussion and would like everything done and thus have discussed with pulmonary cardiac cath with intubation prior to cath. Patient thus placed on schedule for cardiac cath to take place tomorrow @ 11:00 am Result Diagram: 12/01/18 0410 12/01/18 0946 Results 24hrs Laboratory Tests Test 11/30/18 16:41 11/30/18 18:00 11/30/18 20:58 11/30/18 21:38 Bedside Glucose 84 95 Blood Gas Blood arterial Specimen Source Arterial Blood 11/30/2018 6:20:09 Date Drawn PM Arterial Blood 7.308 L pH (Temp corrected) Arterial Blood 80.3 *H pCO2 (Temp correct) Arterial Blood 66.1 L pO2 (Temp corrected) Arterial Blood 39.3 H HCO3 Arterial Blood 10.7 H Base Excess Arterial Blood 93.4 L Oxygen Saturatio n Nilson Test ACCEPTAB Arterial Blood Right Radial Gas Puncture Site Arterial 0.9 Blood Carboxyhem oglobin Arterial Blood 0.4 Methemoglobin Blood Gas A-a O2 200.1 H Differential Oxyhemoglobin 92.2 L Percent Blood Gas 37.0 Temperature Blood Gas 0 Respiration Rate Blood Gas Actual 18 Respiration Rate Blood Gas MASK - VENTI Modality FiO2 50.0 Blood Gas L. RYLAND Critical Value Read Back Blood Gas RDIX Notified Whom Blood Gas 11/30/2018 6:31:25 Notified Time PM Sodium Level 153 H Potassium Level 3.4 L Chloride Level 108 Carbon Dioxide 39 H Level Anion Gap 6 Blood Urea 71 H Nitrogen Creatinine 1.68 H Est Glomerular Filtrat Rate mL/min Glucose Level 103 Calcium Level 9.2 Test 12/01/18 01:10 12/01/18 04:10 12/01/18 04:45 12/01/18 07:00 Bedside Glucose 115 97 White Blood 6.8 Count Red Blood Count 4.14 L Hemoglobin 8.8 L Hematocrit 34.9 L Mean Corpuscular 84.3 Volume Mean Corpuscular 21.3 L Hemoglobin Mean Corpuscular 25.2 L Hemoglobin Sonali nt Red Cell 31.8 H Distribution Width Platelet Count 263 Mean Platelet Volume Immature 0.400 Granulocytes % Neutrophils % 73.0 Lymphocytes % 10.4 L Monocytes % 11.5 H Eosinophils % 4.0 Basophils % 0.7 Nucleated Red 0.0 Blood Cells % Immature 0.030 Granulocytes # Neutrophils # 4.9 Lymphocytes # 0.7 L Monocytes # 0.8 Eosinophils # 0.3 Basophils # 0.1 Nucleated Red 0.0 Blood Cells # Sodium Level 155 H Potassium Level 3.2 L Chloride Level 108 Carbon Dioxide 40 H Level Anion Gap 7 Blood Urea 68 H Nitrogen Creatinine 1.96 H Est Glomerular Filtrat Rate mL/min Glucose Level 107 Calcium Level 9.1 Phosphorus Level 4.1 Magnesium Level 2.1 Blood Gas Blood arterial Specimen Source Arterial Blood 12/01/2018 7:50:29 Date Drawn AM Arterial Blood 7.357 pH (Temp corrected) Arterial Blood 78.2 H pCO2 (Temp correct) Arterial Blood 88.4 pO2 (Temp corrected) Arterial Blood 42.9 *H HCO3 Arterial Blood 14.7 H Base Excess Arterial Blood 96.0 Oxygen Saturatio n Nilson Test ACCEPTAB Arterial Blood Right Radial Gas Puncture Site Arterial 1.1 Blood Carboxyhem oglobin Arterial Blood 0.3 Methemoglobin Blood Gas A-a O2 180.1 H Differential Oxyhemoglobin 94.7 Percent Blood Gas 37.0 Temperature Blood Gas 18.0 Respiration Rate Blood Gas Actual 22 Respiration Rate Blood Gas MASK - BIPAP Modality FiO2 50.0 Blood Gas 12 Pressure Support Blood Gas 18/6 IPAP/EPAP Ratio Blood Gas Ava TAN RN Critical Value Read Back Blood Gas DT Notified Whom Blood Gas 12/01/2018 8:07:02 Notified Time AM Test 12/01/18 09:23 12/01/18 09:46 12/01/18 11:47 12/01/18 13:30 Bedside Glucose 98 118 Sodium Level 155 H Potassium Level 4.0 Chloride Level 107 Carbon Dioxide 38 H Level Anion Gap 10 Blood Urea 69 H Nitrogen Creatinine 1.87 H Est Glomerular Filtrat Rate mL/min Glucose Level 109 Calcium Level 9.1 Blood Gas Blood arterial Specimen Source Arterial Blood 12/01/2018 1:39:23 Date Drawn PM Arterial Blood 7.333 L pH (Temp corrected) Arterial Blood 70.0 H pCO2 (Temp correct) Arterial Blood 66.1 L pO2 (Temp corrected) Arterial Blood 36.3 H HCO3 Arterial Blood 8.6 H Base Excess Arterial Blood 90.8 L Oxygen Saturatio n Nilson Test ACCEPTAB Arterial Blood Right Radial Gas Puncture Site Arterial 0.9 Blood Carboxyhem oglobin Arterial Blood 0.3 Methemoglobin Blood Gas A-a O2 211.7 H Differential Oxyhemoglobin 89.7 L Percent Blood Gas 37.0 Temperature Blood Gas HFNC Modality FiO2 50.[address] Keller Critical Value VADISATU MDVAD Read Back Blood Gas Winnie JIMENES Notified Whom Blood Gas 12/01/2018 1:44:42 Notified Time PM Consultation Date/Type/Reason Admit Date/Time Nov 23, 2018 at 22:01 Initial Consult Date 11/24/18 Type of Consult cardiology Reason for Consultation Nstemi Requesting Provider: NAYANA GARCIA Exam/Review of Systems Vital Signs Vitals Vital Signs Date Temp Pulse Resp B/P (MAP) Pulse Ox O2 O2 Flow FiO2 Time Delivery Rate 12/01/18 92 50 13:36 12/01/18 78 25 95/62 (73) High Flow 12:00 12/01/18 98.2 07:00 11/28/18 8.0 23:00 Intake and Output 11/30/18 11/30/18 12/01/18 1515:00 23:00 07:00 IntakeIntake Total 70 ml 860 ml 80 ml OutputOutput Total 1625 ml 1651 ml 715 ml BalanceBalance -1555 ml -791 ml -635 ml Exam Review of Systems: CONSTITUTIONAL: No fevers, chills. PULMONARY: resp distress CARDIOVASCULAR: No chest pain/palpitations GASTROINTESTINAL: No nausea/vomiting. GENITOURINARY: No hematuria/dysuria. MUSCULOSKELETAL: No myagias/arthalgias. PSYCHIATRIC: The patient denies depression. NEUROLOGIC: generalized weakness Constitutional: alert Psych: no complaints Head: normocephalic ENMT: mucosa pink and moist Neck: supple, jvd (9 cm water) Respiratory: diminished breath sounds (at bases/B) Cardiovascular: regular rate and rhythm Gastrointestinal: soft, non-tender Musculoskeletal: muscle tone (normal) Extremities: other (trace/B) Neurological: confused Medications Medications Current Medications Ondansetron HCl (Zofran Inj) 4 mg Q6H PRN IV NAUSEA AND/OR VOMITING; Start 11/23/18 at 22:30 Acetaminophen (Tylenol Liquid) 650 mg Q6H PRN PO PAIN LEVEL 1-3 OR FEVER Last administered on 12/01/18at 00:21; Admin Dose 650 MG; Start 11/23/18 at 22:30 Acetaminophen (Tylenol Supp) 650 mg Q4H PRN [place] PAIN LEVEL 1-3 OR FEVER; Start 11/23/18 at 22:30 Lorazepam (Ativan) 0.5 mg Q4H PRN IV ANXIETY Last administered on 11/29/18 20:00; Admin Dose 0.5 MG; Start 11/23/18 at 22:30 Atorvastatin Calcium (Lipitor) 20 mg HS PO Last administered on 11/30/18 20:59; Admin Dose 20 MG; Start 11/24/18 at 21:00 Albuterol/ Ipratropium (Duoneb) 3 ml Q4H RESP THERAPY PRN HHN SHORTNESS OF BREATH; Start 11/24/18 at 09:00 Aripiprazole (Abilify) 5 mg DAILY PO Last administered on 12/01/18 09:05; Admin Dose 5 MG; Start 11/24/18 at 09:30 Digoxin (Digoxin) 0.25 mg DAILY@1300 PO Last administered on 11/26/18 13:41; Admin Dose 0.25 MG; Start 11/24/18 at 13:00; Status Hold Escitalopram Oxalate (Lexapro) 20 mg DAILY PO Last administered on 12/01/18 09:05; Admin Dose 20 MG; Start 11/24/18 at 09:30 Loratadine (Claritin) 10 mg DAILY PO Last administered on 12/01/18 09:06; Admin Dose 10 MG; Start 11/24/18 at 10:00 Multivitamins Therapeutic (Theragran) 1 tab DAILY PO Last administered on 12/01/18 09:06; Admin Dose 1 TAB; Start 11/24/18 at 09:30 Potassium Chloride (Micro-K) 8 meq DAILY PO Last administered on 11/24/18 10:12; Admin Dose 8 MEQ; Start 11/24/18 at 10:00; Status Hold Tamsulosin HCl (Flomax) 0.4 mg HS PO Last administered on 11/30/18 20:59; Admin Dose 0.4 MG; Start 11/24/18 at 21:00 Calcium/Vitamin D (Oyster Shell/ Vit-D (500/200)) 1 tab DAILY PO Last administered on 12/01/18 09:06; Admin Dose 1 TAB; Start 11/24/18 at 09:30 Metoprolol Tartrate (Lopressor) 5 mg Q4H PRN IV HR>110 Hold SBP<100; Start 11/24/18 at 11:00 Atenolol (Tenormin) 25 mg DAILY PO Last administered on 12/01/18 09:06; Admin Dose 25 MG; Start 11/25/18 at 14:00 Diltiazem HCl (Cardizem Sr) 120 mg DAILY PO ; Start 11/25/18 at 14:00; Status H old Cefepime HCl 50 ml @ 100 mls/hr Q24H IVPB Last administered on 12/01/18 11:45; Admin Dose 100 MLS/HR; Start 11/26/18 at 12:00 IV Flush (NS 10 ml) 10 ml PRN PRN IV IV PROTOCOL; Start 11/25/18 at 16:00 Hydralazine HCl (Apresoline) 25 mg Q8 PO Last administered on 12/01/18 05:36; Admin Dose 25 MG; Start 11/26/18 at 22:00 Pantoprazole (Protonix Iv) 40 mg DAILY@06 IV Last administered on 12/01/18 05:35; Admin Dose 40 MG; Start 11/29/18 at 06:00 Enoxaparin Sodium (Lovenox) 30 mg DAILY SC Last administered on 12/01/18 09:07; Admin Dose 30 MG; Start 11/30/18 at 09:00 Dextrose/Sodium Chloride 1,000 ml @ 50 mls/hr Q20H IV Last administered on 1/8/19at 08:37; Admin Dose 50 MLS/HR; Start 11/30/18 at 07:30; Status Hold Diagnostic Test (Pha) (Accu-Chek) 1 ea 02 XX ; Start 12/01/18 at 02:00 Insulin Aspart (Novolog Insulin Pen) (Adult SC Insulin - Mild Algorithm)... Q4 SC ; Start 11/30/18 at 09:00 Miscellaneous Information 1 ea NOTE XX ; Start 11/30/18 at 08:00 Glucose (Glutose) 15 gm Q15M PRN PO DECREASED GLUCOSE; Start 11/30/18 at 08:00 Glucose (Glutose) 22.5 gm Q15M PRN PO DECREASED GLUCOSE; Start 11/30/18 at 08:00 Dextrose (D50w Syringe) 25 ml Q15M PRN IV DECREASED GLUCOSE; Start 11/30/18 at 08:00 Dextrose (D50w Syringe) 50 ml Q15M PRN IV DECREASED GLUCOSE; Start 11/30/18 at 08:00 Glucagon (Glucagen) 1 mg Q15M PRN IM DECREASED GLUCOSE; Start 11/30/18 at 08:00 Glucose (Glutose) 15 gm Q15M PRN BUCCAL DECREASED GLUCOSE; Start 11/30/18 at 08:00 Aspirin (Aspirin) 325 mg DAILY NGT Last administered on 12/01/18at 09:05; Admin Dose 325 MG; Start 11/30/18 at 12:00 Dextrose 1,000 ml @ 100 mls/hr Q10H IV Last administered on 12/01/18at 11:45; Admin Dose 100 MLS/HR; Start 11/30/18 at 15:30 TWAN ESTEVEZ Dec 01, 2018 13:56
--- NOTE | 2018-12-01 15:06 | CONS ---
Date/Time of Note Date/Time of Note DATE: 12/01/18 TIME: 14:54 Consult Date/Type/Reason Admit Date/Time Nov 23, 2018 at 22:01 Initial Consult Date 11/25/18 Type of Consultation: Pulm/CCM Requesting Provider: NAYANA GARCIA Patient transitioned from level to high flow O2. Currently remained stable. Still confused and encephalopathic. Objective Vital Signs Date Temp Pulse Resp B/P (MAP) Pulse Ox O2 O2 Flow FiO2 Time Delivery Rate 12/01/18 92 50 13:36 12/01/18 78 25 95/62 (73) High Flow 12:00 12/01/18 98.2 07:00 11/28/18 8.0 23:00 Intake and Output 11/30/18 11/30/18 12/01/18 1515:00 23:00 07:00 IntakeIntake Total 70 ml 860 ml 80 ml OutputOutput Total 1625 ml 1651 ml 715 ml BalanceBalance -1555 ml -791 ml -635 ml Exam GENERAL: Elderly [place] gentleman remains somewhat lethargic. VITAL SIGNS: per chart NECK: Supple. No JVD or lymphadenopathy. CARDIAC EXAM: S1, S2. No added sounds or murmurs. CHEST: Diminished air entry bilaterally ABDOMEN: Soft, nontender. No guarding or rebound. EXTREMITIES: No cyanosis, clubbing or edema. NEUROLOGIC: Generalized weakness. No focal deficits. Results/Medications Result Diagram: 12/01/18 0410 12/01/18 0946 Results 24 hrs Laboratory Tests Test 11/30/18 16:41 11/30/18 18:00 11/30/18 20:58 11/30/18 21:38 Bedside Glucose 84 95 Blood Gas Blood arterial Specimen Source Arterial Blood 11/30/2018 6:20:09 Date Drawn PM Arterial Blood 7.308 L pH (Temp corrected) Arterial Blood 80.3 *H pCO2 (Temp correct) Arterial Blood 66.1 L pO2 (Temp corrected) Arterial Blood 39.3 H HCO3 Arterial Blood 10.7 H Base Excess Arterial Blood 93.4 L Oxygen Saturatio n Nilson Test ACCEPTAB Arterial Blood Right Radial Gas Puncture Site Arterial 0.9 Blood Carboxyhem oglobin Arterial Blood 0.4 Methemoglobin Blood Gas A-a O2 200.1 H Differential Oxyhemoglobin 92.2 L Percent Blood Gas 37.0 Temperature Blood Gas 0 Respiration Rate Blood Gas Actual 18 Respiration Rate Blood Gas MASK - VENTI Modality FiO2 50.0 Blood Gas L. RYLAND Critical Value Read Back Blood Gas RDIX Notified Whom Blood Gas 11/30/2018 6:31:25 Notified Time PM Sodium Level 153 H Potassium Level 3.4 L Chloride Level 108 Carbon Dioxide 39 H Level Anion Gap 6 Blood Urea 71 H Nitrogen Creatinine 1.68 H Est Glomerular Filtrat Rate mL/min Glucose Level 103 Calcium Level 9.2 Test 12/01/18 01:10 12/01/18 04:10 12/01/18 04:45 12/01/18 07:00 Bedside Glucose 115 97 White Blood 6.8 Count Red Blood Count 4.14 L Hemoglobin 8.8 L Hematocrit 34.9 L Mean Corpuscular 84.3 Volume Mean Corpuscular 21.3 L Hemoglobin Mean Corpuscular 25.2 L Hemoglobin Sonali nt Red Cell 31.8 H Distribution Width Platelet Count 263 Mean Platelet Volume Immature 0.400 Granulocytes % Neutrophils % 73.0 Lymphocytes % 10.4 L Monocytes % 11.5 H Eosinophils % 4.0 Basophils % 0.7 Nucleated Red 0.0 Blood Cells % Immature 0.030 Granulocytes # Neutrophils # 4.9 Lymphocytes # 0.7 L Monocytes # 0.8 Eosinophils # 0.3 Basophils # 0.1 Nucleated Red 0.0 Blood Cells # Sodium Level 155 H Potassium Level 3.2 L Chloride Level 108 Carbon Dioxide 40 H Level Anion Gap 7 Blood Urea 68 H Nitrogen Creatinine 1.96 H Est Glomerular Filtrat Rate mL/min Glucose Level 107 Calcium Level 9.1 Phosphorus Level 4.1 Magnesium Level 2.1 Blood Gas Blood arterial Specimen Source Arterial Blood 12/01/2018 7:50:29 Date Drawn AM Arterial Blood 7.357 pH (Temp corrected) Arterial Blood 78.2 H pCO2 (Temp correct) Arterial Blood 88.4 pO2 (Temp corrected) Arterial Blood 42.9 *H HCO3 Arterial Blood 14.7 H Base Excess Arterial Blood 96.0 Oxygen Saturatio n Nilson Test ACCEPTAB Arterial Blood Right Radial Gas Puncture Site Arterial 1.1 Blood Carboxyhem oglobin Arterial Blood 0.3 Methemoglobin Blood Gas A-a O2 180.1 H Differential Oxyhemoglobin 94.7 Percent Blood Gas 37.0 Temperature Blood Gas 18.0 Respiration Rate Blood Gas Actual 22 Respiration Rate Blood Gas MASK - BIPAP Modality FiO2 50.0 Blood Gas 12 Pressure Support Blood Gas 10/05 IPAP/EPAP Ratio Blood Gas Ava TAN RN Critical Value Read Back Blood Gas DT Notified Whom Blood Gas 12/01/2018 8:07:02 Notified Time AM Test 12/01/18 09:23 12/01/18 09:46 12/01/18 11:47 12/01/18 13:30 Bedside Glucose 98 118 Sodium Level 155 H Potassium Level 4.0 Chloride Level 107 Carbon Dioxide 38 H Level Anion Gap 10 Blood Urea 69 H Nitrogen Creatinine 1.87 H Est Glomerular Filtrat Rate mL/min Glucose Level 109 Calcium Level 9.1 Blood Gas Blood arterial Specimen Source Arterial Blood 12/01/2018 1:39:23 Date Drawn PM Arterial Blood 7.333 L pH (Temp corrected) Arterial Blood 70.0 H pCO2 (Temp correct) Arterial Blood 66.1 L pO2 (Temp corrected) Arterial Blood 36.3 H HCO3 Arterial Blood 8.6 H Base Excess Arterial Blood 90.8 L Oxygen Saturatio n Nilson Test ACCEPTAB Arterial Blood Right Radial Gas Puncture Site Arterial 0.9 Blood Carboxyhem oglobin Arterial Blood 0.3 Methemoglobin Blood Gas A-a O2 211.7 H Differential Oxyhemoglobin 89.7 L Percent Blood Gas 37.0 Temperature Blood Gas HFNC Modality FiO2 50.[address] Keller Critical Value MORENA CHRISTIEVAD Read Back Blood Gas T JALIL Notified Whom Blood Gas 12/01/2018 1:44:42 Notified Time PM Medications Current Medications Ondansetron HCl (Zofran Inj) 4 mg Q6H PRN IV NAUSEA AND/OR VOMITING; Start 11/23/18 at 22:30 Acetaminophen (Tylenol Liquid) 650 mg Q6H PRN PO PAIN LEVEL 1-3 OR FEVER Last administered on 12/01/18at 00:21; Admin Dose 650 MG; Start 11/23/18 at 22:30 Acetaminophen (Tylenol Supp) 650 mg Q4H PRN [place] PAIN LEVEL 1-3 OR FEVER; Start 11/23/18 at 22:30 Lorazepam (Ativan) 0.5 mg Q4H PRN IV ANXIETY Last administered on 11/29/18at 20: 00; Admin Dose 0.5 MG; Start 11/23/18 at 22:30 Atorvastatin Calcium (Lipitor) 20 mg HS PO Last administered on 11/30/18 20:59; Admin Dose 20 MG; Start 11/24/18 at 21:00 Albuterol/ Ipratropium (Duoneb) 3 ml Q4H RESP THERAPY PRN HHN SHORTNESS OF BREATH; Start 11/24/18 at 09:00 Aripiprazole (Abilify) 5 mg DAILY PO Last administered on 12/01/18 09:05; Admin Dose 5 MG; Start 11/24/18 at 09:30 Digoxin (Digoxin) 0.25 mg DAILY@1300 PO Last administered on 11/26/18 13:41; Admin Dose 0.25 MG; Start 11/24/18 at 13:00; Status Hold Escitalopram Oxalate (Lexapro) 20 mg DAILY PO Last administered on 12/01/18 09:05; Admin Dose 20 MG; Start 11/24/18 at 09:30 Loratadine (Claritin) 10 mg DAILY PO Last administered on 12/01/18 09:06; Admin Dose 10 MG; Start 11/24/18 at 10:00 Multivitamins Therapeutic (Theragran) 1 tab DAILY PO Last administered on 12/01/18 09:06; Admin Dose 1 TAB; Start 11/24/18 at 09:30 Potassium Chloride (Micro-K) 8 meq DAILY PO Last administered on 11/24/18 10:12; Admin Dose 8 MEQ; Start 11/24/18 at 10:00; Status Hold Tamsulosin HCl (Flomax) 0.4 mg HS PO Last administered on 11/30/18 20:59; Admin Dose 0.4 MG; Start 11/24/18 at 21:00 Calcium/Vitamin D (Oyster Shell/ Vit-D (500/200)) 1 tab DAILY PO Last administered on 12/01/18 09:06; Admin Dose 1 TAB; Start 11/24/18 at 09:30 Metoprolol Tartrate (Lopressor) 5 mg Q4H PRN IV HR>110 Hold SBP<100; Start 11/24/18 at 11:00 Atenolol (Tenormin) 25 mg DAILY PO Last administered on 12/01/18 09:06; Admin Dose 25 MG; Start 11/25/18 at 14:00 Diltiazem HCl (Cardizem Sr) 120 mg DAILY PO ; Start 11/25/18 at 14:00; Status Hold Cefepime HCl 50 ml @ 100 mls/hr Q24H IVPB Last administered on 12/01/18at 11:45; Admin Dose 100 MLS/HR; Start 11/26/18 at 12:00 IV Flush (NS 10 ml) 10 ml PRN PRN IV IV PROTOCOL; Start 11/25/18 at 16:00 Hydralazine HCl (Apresoline) 25 mg Q8 PO Last administered on 12/01/18at 05:36; Admin Dose 25 MG; Start 11/26/18 at 22:00 Pantoprazole (Protonix Iv) 40 mg DAILY@06 IV Last administered on 12/01/18at 05:35; Admin Dose 40 MG; Start 11/29/18 at 06:00 Enoxaparin Sodium (Lovenox) 30 mg DAILY SC Last administered on 12/01/18at 09:07; Admin Dose 30 MG; Start 11/30/18 at 09:00 Dextrose/Sodium Chloride 1,000 ml @ 50 mls/hr Q20H IV Last administered on 11/30/18at 08:37; Admin Dose 50 MLS/HR; Start 11/30/18 at 07:30; Status Hold Diagnostic Test (Pha) (Accu-Chek) 1 ea 02 XX ; Start 12/01/18 at 02:00 Insulin Aspart (Novolog Insulin Pen) (Adult SC Insulin - Mild Algorithm)... Q4 SC ; Start 11/30/18 at 09:00 Miscellaneous Information 1 ea NOTE XX ; Start 11/30/18 at 08:00 Glucose (Glutose) 15 gm Q15M PRN PO DECREASED GLUCOSE; Start 11/30/18 at 08:00 Glucose (Glutose) 22.5 gm Q15M PRN PO DECREASED GLUCOSE; Start 11/30/18 at 08:00 Dextrose (D50w Syringe) 25 ml Q15M PRN IV DECREASED GLUCOSE; Start 11/30/18 at 08:00 Dextrose (D50w Syringe) 50 ml Q15M PRN IV DECREASED GLUCOSE; Start 11/30/18 at 08:00 Glucagon (Glucagen) 1 mg Q15M PRN IM DECREASED GLUCOSE; Start 11/30/18 at 08:00 Glucose (Glutose) 15 gm Q15M PRN BUCCAL DECREASED GLUCOSE; Start 11/30/18 at 08:00 Aspirin (Aspirin) 325 mg DAILY NGT Last administered on 12/01/18at 09:05; Admin Dose 325 MG; Start 11/30/18 at 12:00 Dextrose 1,000 ml @ 100 mls/hr Q10H IV Last administered on 12/01/18at 11:45; Admin Dose 100 MLS/HR; Start 11/30/18 at 15:30 Diazepam (Valium) 5 mg OC ONCE PO ; Start 12/02/18 at 08:00; Stop 12/02/18 at 08:01 Diphenhydramine HCl (Benadryl) 50 mg OC ONCE PO ; Start 12/02/18 at 08:00; Stop 12/02/18 at 08:01 Assessment/Plan Chief Complaint/Hosp Course IMP: 1. Acute hypoxemic/hypercapnic respiratory failure--most likely due to volume overload +/- pneumonia 2. Sigmoid mass, presumed colon cancer with recent severe anemia. 3. Non-ST elevation myocardial infarction. 4. Atrial fibrillation with rapid ventricular response, now rate controlled 5. ARF 6. Anemia RECS: 1. Trial of noninvasive positive pressure ventilation 2. May require intubation prior to cardiac catheterization tomorrow. 3. Improving renal function likely postobstructive uropathy improved with Ballard catheter placement. 4. GI recommendations and surgical evaluation regarding colon mass. Case discussed with cardiology and patient's son at bedside at length. Critical care time 40 minutes JANNET BERG MD[place] [facility] [place] 01[place] 15:06
--- NOTE | 2018-12-01 16:06 | PN ---
Date/Time of Note Date/Time of Note DATE: 12/01/18 TIME: 16:00 Assessment/Plan VTE Prophylaxis Risk score (from Nsg)>0 risk: 5 SCD applied (from Nsg): Yes Pharmacological prophylaxis: LMWH Lines/Catheters IV Catheter Type (from Nrsg): PICC Line Central line still needed: Yes Urinary Cath still in place: Yes Reason Cath still needed: urinary retention Assessment/Plan Assessment/Plan 78-year-old male recently diagnosed with new colon mass, who presents with: # Hypoxic and hypercapnic respiratory failure: Appears to be due to pulmonary edema and possible pneumonia. - Currently requiring BiPAP/HFNC -Continue Supplemental oxygen, BiPAP/HFNC as needed, bronchodilators -continue IV antibiotics -Follow up pulmonary recommendations -DuoNeb's as needed # Sepsis: As evidenced by fever and tachycardia: Secondary to pneumonia -Again, continue broad-spectrum IV antibiotics -Follow-up final respiratory and blood culture results # Cardiac- elevated troponins: Likely secondary to #1 and #2-Status post treatment dose Lovenox in ER. Elevated troponins, per cardiology, likely a type 2 demand ischemia in the setting of fevers, hypercarbic respiratory failure -but currently down trending cardiac enzymes - Plan for cardiac cath tomorrow. # Sigmoid mass: Status post biopsy during recent hospitalization. 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 - Mass is almost completely obstructive. Because the patient is too unstable for surgery, plan for palliative rectal stent. Dr. Fang consulted. # Atrial fibrillation with RVR -resolved now -Continue to monitor, patient on beta-esther and digoxin, follow-up card iology recommendations # Renal insufficiency: Oliguric acute on chronic renal failure - This was likely due to obstructive uropathy - Now that Ballard is back in, patient is having post-obstructive diuresis and significant improvement in Cr. #Hypernatremia - Likely from postobstructive diuresis. - Will start D5W # Diabetes: Sugar stable, continue insulin while in-house DVT: lovenox GI: PPI Code status: Full. Family wants everything done to treat his multiorgan failure and cancer. Result Diagram: 12/01/18 0410 12/01/18 1456 Results 24hrs Laboratory Tests Test 11/30/18 16:41 11/30/18 18:00 11/30/18 20:58 11/30/18 21:38 Bedside Glucose 84 95 Blood Gas Blood arterial Specimen Source Arterial Blood 11/30/2018 6:20:09 Date Drawn PM Arterial Blood 7.308 L pH (Temp corrected) Arterial Blood 80.3 *H pCO2 (Temp correct) Arterial Blood 66.1 L pO2 (Temp corrected) Arterial Blood 39.3 H HCO3 Arterial Blood 10.7 H Base Excess Arterial Blood 93.4 L Oxygen Saturatio n Nilson Test ACCEPTAB Arterial Blood Right Radial Gas Puncture Site Arterial 0.9 Blood Carboxyhem oglobin Arterial Blood 0.4 Methemoglobin Blood Gas A-a O2 200.1 H Differential Oxyhemoglobin 92.2 L Percent Blood Gas 37.0 Temperature Blood Gas 0 Respiration Rate Blood Gas Actual 18 Respiration Rate Blood Gas MASK - VENTI Modality FiO2 50.0 Blood Gas L. RYLAND Critical Value Read Back Blood Gas RDIX Notified Whom Blood Gas 11/30/2018 6:31:25 Notified Time PM Sodium Level 153 H Potassium Level 3.4 L Chloride Level 108 Carbon Dioxide 39 H Level Anion Gap 6 Blood Urea 71 H Nitrogen Creatinine 1.68 H Est Glomerular Filtrat Rate mL/min Glucose Level 103 Calcium Level 9.2 Test 12/01/18 01:10 12/01/18 04:10 12/01/18 04:45 12/01/18 07:00 Bedside Glucose 115 97 White Blood 6.8 Count Red Blood Count 4.14 L Hemoglobin 8.8 L Hematocrit 34.9 L Mean Corpuscular 84.3 Volume Mean Corpuscular 21.3 L Hemoglobin Mean Corpuscular 25.2 L Hemoglobin Sonali nt Red Cell 31.8 H Distribution Width Platelet Count 263 Mean Platelet Volume Immature 0.400 Granulocytes % Neutrophils % 73.0 Lymphocytes % 10.4 L Monocytes % 11.5 H Eosinophils % 4.0 Basophils % 0.7 Nucleated Red 0.0 Blood Cells % Immature 0.030 Granulocytes # Neutrophils # 4.9 Lymphocytes # 0.7 L Monocytes # 0.8 Eosinophils # 0.3 Basophils # 0.1 Nucleated Red 0.0 Blood Cells # Sodium Level 155 H Potassium Level 3.2 L Chloride Level 108 Carbon Dioxide 40 H Level Anion Gap 7 Blood Urea 68 H Nitrogen Creatinine 1.96 H Est Glomerular Filtrat Rate mL/min Glucose Level 107 Calcium Level 9.1 Phosphorus Level 4.1 Magnesium Level 2.1 Blood Gas Blood arterial Specimen Source Arterial Blood 12/01/2018 7:50:29 Date Drawn AM Arterial Blood 7.357 pH (Temp corrected) Arterial Blood 78.2 H pCO2 (Temp correct) Arterial Blood 88.4 pO2 (Temp corrected) Arterial Blood 42.9 *H HCO3 Arterial Blood 14.7 H Base Excess Arterial Blood 96.0 Oxygen Saturatio n Nilson Test ACCEPTAB Arterial Blood Right Radial Gas Puncture Site Arterial 1.1 Blood Carboxyhem oglobin Arterial Blood 0.3 Methemoglobin Blood Gas A-a O2 180.1 H Differential Oxyhemoglobin 94.7 Percent Blood Gas 37.0 Temperature Blood Gas 18.0 Respiration Rate Blood Gas Actual 22 Respiration Rate Blood Gas MASK - BIPAP Modality FiO2 50.0 Blood Gas 12 Pressure Support Blood Gas 18/6 IPAP/EPAP Ratio Blood Gas Ava TAN RN Critical Value Read Back Blood Gas DT Notified Whom Blood Gas 12/01/2018 8:07:02 Notified Time AM Test 12/01/18 09:23 12/01/18 09:46 12/01/18 11:47 12/01/18 13:30 Bedside Glucose 98 118 Sodium Level 155 H Potassium Level 4.0 Chloride Level 107 Carbon Dioxide 38 H Level Anion Gap 10 Blood Urea 69 H Nitrogen Creatinine 1.87 H Est Glomerular Filtrat Rate mL/min Glucose Level 109 Calcium Level 9.1 Blood Gas Blood arterial Specimen Source Arterial Blood 12/01/2018 1:39:23 Date Drawn PM Arterial Blood 7.333 L pH (Temp corrected) Arterial Blood 70.0 H pCO2 (Temp correct) Arterial Blood 66.1 L pO2 (Temp corrected) Arterial Blood 36.3 H HCO3 Arterial Blood 8.6 H Base Excess Arterial Blood 90.8 L Oxygen Saturatio n Nilson Test ACCEPTAB Arterial Blood Right Radial Gas Puncture Site Arterial 0.9 Blood Carboxyhem oglobin Arterial Blood 0.3 Methemoglobin Blood Gas A-a O2 211.7 H Differential Oxyhemoglobin 89.7 L Percent Blood Gas 37.0 Temperature Blood Gas HFNC Modality FiO2 50.[address] Keller Critical Value MORENA SANTIAGOD Read Back Blood Gas T EDWARDOII Notified Whom Blood Gas 12/01/2018 1:44:42 Notified Time PM Test 12/01/18 14:56 Sodium Level 155 H Potassium Level 3.5 Chloride Level 106 Carbon Dioxide 38 H Level Anion Gap 11 Blood Urea 71 H Nitrogen Creatinine 1.91 H Est Glomerular Filtrat Rate mL/min Glucose Level 122 Calcium Level 9.2 Subjective 24 Hr Interval Summary Free Text/Dictation Patient switched from BiPAP to HFNC today. Still minimally responsive. Exam/Review of Systems Vital Signs Vitals Vital Signs Date Temp Pulse Resp B/P (MAP) Pulse Ox O2 O2 Flow FiO2 Time Delivery Rate 12/01/18 96 50 15:32 12/01/18 76 19 109/63 High Flow 15:00 (78) 12/01/18 98.2 07:00 11/28/18 8.0 23:00 Intake and Output 11/30/18 11/30/18 12/01/18 1515:00 23:00 07:00 IntakeIntake Total 70 ml 860 ml 80 ml OutputOutput Total 1625 ml 1651 ml 715 ml BalanceBalance -1555 ml -791 ml -635 ml Exam Const: Obese man lying in bed on HFNC, minimally responsive Head: Atraumatic, normocephalic Eyes: Normal Conjunctiva, PERRLA, EOMI, normal sclera, no nystagmus ENT: Normal External Ears, Nose and Mouth, dry mucus membranes. Neck: Supple Resp: Some increased work of breathing, still some bilateral rhonchi and wheezes decreased breath sounds in the bases Cardio: Regular rate and rhythm, no murmurs, S1 S2 present Abd: Soft, non tender x 4, slight distention. Normal bowel sounds, no guarding or rebound Ext: No cyanosis, or edema Medications Medications Current Medications Ondansetron HCl (Zofran Inj) 4 mg Q6H PRN IV NAUSEA AND/OR VOMITING; Start 11/23/18 at 22:30 Acetaminophen (Tylenol Liquid) 650 mg Q6H PRN PO PAIN LEVEL 1-3 OR FEVER Last administered on 12/01/18at 00:21; Admin Dose 650 MG; Start 11/23/18 at 22:30 Acetaminophen (Tylenol Supp) 650 mg Q4H PRN [place] PAIN LEVEL 1-3 OR FEVER; Start 11/23/18 at 22:30 Atorvastatin Calcium (Lipitor) 20 mg HS PO Last administered on 11/30/18 20:59; Admin Dose 20 MG; Start 11/24/18 at 21:00 Albuterol/ Ipratropium (Duoneb) 3 ml Q4H RESP THERAPY PRN HHN SHORTNESS OF BREATH; Start 11/24/18 at 09:00 Aripiprazole (Abilify) 5 mg DAILY PO Last administered on 12/01/18 09:05; Admin Dose 5 MG; Start 11/24/18 at 09:30 Digoxin (Digoxin) 0.25 mg DAILY@1300 PO Last administered on 11/26/18 13:41; Admin Dose 0.25 MG; Start 11/24/18 at 13:00; Status Hold Escitalopram Oxalate (Lexapro) 20 mg DAILY PO Last administered on 12/01/18 09:05; Admin Dose 20 MG; Start 11/24/18 at 09:30 Loratadine (Claritin) 10 mg DAILY PO Last administered on 12/01/18 09:06; Admin Dose 10 MG; Start 11/24/18 at 10:00 Multivitamins Therapeutic (Theragran) 1 tab DAILY PO Last administered on 12/01/18 09:06; Admin Dose 1 TAB; Start 11/24/18 at 09:30 Potassium Chloride (Micro-K) 8 meq DAILY PO Last administered on 11/24/18 10:12; Admin Dose 8 MEQ; Start 11/24/18 at 10:00; Status Hold Tamsulosin HCl (Flomax) 0.4 mg HS PO Last administered on 11/30/18 20:59; Admin Dose 0.4 MG; Start 11/24/18 at 21:00 Calcium/Vitamin D (Oyster Shell/ Vit-D (500/200)) 1 tab DAILY PO Last administered on 12/01/18 09:06; Admin Dose 1 TAB; Start 11/24/18 at 09:30 Metoprolol Tartrate (Lopressor) 5 mg Q4H PRN IV HR>110 Hold SBP<100; Start 11/24/18 at 11:00 Atenolol (Tenormin) 25 mg DAILY PO Last administered on 12/01/18 09:06; Admin Dose 25 MG; Start 11/25/18 at 14:00 Diltiazem HCl (Cardizem Sr) 120 mg DAILY PO ; Start 11/25/18 at 14:00; Status Hold Cefepime HCl 50 ml @ 100 mls/hr Q24H IVPB Last administered on 12/01/18at 11:45; Admin Dose 100 MLS/HR; Start 11/26/18 at 12:00 IV Flush (NS 10 ml) 10 ml PRN PRN IV IV PROTOCOL; Start 11/25/18 at 16:00 Hydralazine HCl (Apresoline) 25 mg Q8 PO Last administered on 12/01/18at 05:36; Admin Dose 25 MG; Start 11/26/18 at 22:00 Pantoprazole (Protonix Iv) 40 mg DAILY@06 IV Last administered on 12/01/18at 05:35; Admin Dose 40 MG; Start 11/29/18 at 06:00 Enoxaparin Sodium (Lovenox) 30 mg DAILY SC Last administered on 12/01/18at 09:07; Admin Dose 30 MG; Start 11/30/18 at 09:00 Dextrose/Sodium Chloride 1,000 ml @ 50 mls/hr Q20H IV Last administered on 11/30/18at 08:37; Admin Dose 50 MLS/HR; Start 11/30/18 at 07:30; Status Hold Diagnostic Test (Pha) (Accu-Chek) 1 ea 02 XX ; Start 12/01/18 at 02:00 Insulin Aspart (Novolog Insulin Pen) (Adult SC Insulin - Mild Algorithm)... Q4 SC ; Start 11/30/18 at 09:00 Miscellaneous Information 1 ea NOTE XX ; Start 11/30/18 at 08:00 Glucose (Glutose) 15 gm Q15M PRN PO DECREASED GLUCOSE; Start 11/30/18 at 08:00 Glucose (Glutose) 22.5 gm Q15M PRN PO DECREASED GLUCOSE; Start 11/30/18 at 08:00 Dextrose (D50w Syringe) 25 ml Q15M PRN IV DECREASED GLUCOSE; Start 11/30/18 at 08:00 Dextrose (D50w Syringe) 50 ml Q15M PRN IV DECREASED GLUCOSE; Start 11/30/18 at 08:00 Glucagon (Glucagen) 1 mg Q15M PRN IM DECREASED GLUCOSE; Start 11/30/18 at 08:00 Glucose (Glutose) 15 gm Q15M PRN BUCCAL DECREASED GLUCOSE; Start 11/30/18 at 08:00 Aspirin (Aspirin) 325 mg DAILY NGT Last administered on 12/01/18at 09:05; Admin Dose 325 MG; Start 11/30/18 at 12:00 Dextrose 1,000 ml @ 100 mls/hr Q10H IV Last administered on 12/01/18at 11:45; Admin Dose 100 MLS/HR; Start 11/30/18 at 15:30 Diazepam (Valium) 5 mg OC ONCE PO ; Start 12/02/18 at 08:00; Stop 12/02/18 at 08:01 Diphenhydramine HCl (Benadryl) 50 mg OC ONCE PO ; Start 12/02/18 at 08:00; Stop 12/02/18 at 08:01 TWAN PATTERSON MD Dec 01, 2018 16:06
--- NOTE | 2018-12-01 17:57 | NUR ---
pt nonverbal, nonresponsive, does not follow commands, does move all extremties spontanous and equel vss afeb, changed from bipap to high flow 100 percent, sats wnl blood gas checked by rt dr aware of results son at bedside very anxious and mult demands, he spoke at length with all drs here to see pt pt to have card cath in am, consent signed by son pt turned q2 hr and prn , bottom redness noted, incont of stool x 2, cleaned often and ointment applied pt has dti upper buttocks cleaned x4 and changed hess to bsd adequate urine output noted
[2018-12-01] MEDS: TAMSULOSIN (SR) 0.4 MG CAP PO SCH (20:18)
[2018-12-01] MEDS: ATORVASTATIN 20 MG TAB PO SCH (20:18)
--- NOTE | 2018-12-01 22:24 | NUR ---
Phone Call Called Dr. Linn and made aware of labs and pt's condition KCl 20 mEq IV x1 ordered
[2018-12-01] MEDS ORDERED: POTASSIUM CHLORIDE 100 ML IVPB ONE (22:30)
--- NOTE | 2018-12-01 23:26 | NUR ---
DR NOTIFIED Notified Dr. Diaz about fever at start of shift, resolved with one dose of acetaminophen. Per MD order, if another fever persists 100.4, get blood culture x2 and urinalysis lactic acid and urine culture.
[2018-12-02] VITALS (73 sets, daily range): BP systolic 78–133; BP diastolic 40–86; PULSE 49–96; RESP 14–31
[2018-12-02] MEDS: Insulin NOVOLOG SS MILD Algorithm (NPO/TPN/ENTERAL FEEDS) SC SCH ×6 (00:43→20:16)
[2018-12-02] MEDS: ACCU-CHEK XX SCH (01:28)
[2018-12-02] MEDS: ACETAMINOPHEN 650MG/20.3ML CUP PO PRN (02:31)
--- NOTE | 2018-12-02 04:13 | NUR ---
PT STATUS pt started to desat. Abnormal ABGs. Dr Diaz notified. Currently on BiPAP
[2018-12-02] MEDS ORDERED: PROPOFOL 100 ML ONE (05:56)
[2018-12-02] MEDS ORDERED: PROPOFOL 100 ML IV SCH (06:00)
[2018-12-02] MEDS: PANTOPRAZOLE 40 MG INJ IV SCH (06:13)
--- NOTE | 2018-12-02 06:24 | NUR ---
PT CRITICAL ABG ON BIPAP RELAYED TO DR. LEO AND PT WAS INTUBATED AROUND 0520. SON PAWAN WAS NOTIFIED.
[2018-12-02] MEDS ORDERED: MIDAZOLAM (DRIP) 50 mg/50 mL 50 ML IV ONE (06:40)
[2018-12-02] MEDS: MIDAZOLAM (DRIP) 50 mg/50 mL 50 ML IV SCH ×2 (06:59→15:29)
[2018-12-02] MEDS ORDERED: SUCCINYLCHOLINE CHLORIDE 100 MG/5 ML SYG IV ONE (07:00)
--- NOTE | 2018-12-02 07:01 | NUR ---
EOSS Patient's respiratory status declined towards end of shift. ABG's were done, Doctor Joe notified, and BiPAP was ordered. 1H post BiPAP, ABGs were done and intubation was required. Intubation when smoothly. Patient currently holding good O2sat. Couple episode of sinus pause, dr made aware, and potassium was replaced. Urine output was about 25cc/hr. 1 BM during shift. Patient is currently having episodes of bradycardia, continuing to closely monitor and keeping dr updated. all needs were tended to, care plans updated and completed. will endorse care to oncoming day shift nurse
--- NOTE | 2018-12-02 07:37 | EN ---
Date/Time of Note Date/Time of Note DATE: 12/02/18 TIME: 07:37 Event Note Medicine Medicine Event Note Patient was noted to be hypercapnic overnight on ABG. patient was started on BiPAP however repeat ABG showed worsening hypercapnia and patient was noted to be obtunded. Emergent call was placed to the ER dr. langford and patient was intubated successfully. ASAEL LEO Dec 02, 2018 07:37
[2018-12-02] MEDS ORDERED: DIPHENHYDRAMINE 50 MG CAP PO ONE (08:00)
[2018-12-02] MEDS ORDERED: DIAZEPAM 5 MG TAB PO ONE (08:00)
[2018-12-02] MEDS: ESCITALOPRAM 10 MG TAB PO SCH (08:24)
[2018-12-02] MEDS: MULTIVITAMINS THERAPEUTIC TAB PO SCH (08:24)
[2018-12-02] MEDS: ARIPIPRAZOLE 5 MG TAB PO SCH (08:24)
[2018-12-02] MEDS: LORATADINE 10 MG TAB PO SCH (08:24)
[2018-12-02] MEDS: ASPIRIN 325 MG TAB NGT SCH (08:24)
--- NOTE | 2018-12-02 08:27 | CONS ---
Date/Time of Note Date/Time of Note DATE: 12/02/18 TIME: 08:27 Assessment/Plan Assessment/Plan Assessment/Plan 1. Oliguric acute on chronic renal failure due to Sepsis and Hemodynamics + obstructive uropathy 2. atrial fibrillation with RVR 3. acute hypoxemic and hypercapnic resp failure due to PNA - on BIPAP 4. Sepsis 5. Positive troponin 6. BPH on flomax 7. Colon CA Plan: BUN/Cr 70/2.08,,, Na 153- , U/o 3.9 Liter, continue current IV bumex, Monitor electrolyes and replace as needed Plan for [facility] today by Cardiology - Discussed with son about in details- they want to keep pt full code and want to do HD if needed will follow up Result Diagram: 12/02/184 12/02/184 Results 24hrs Laboratory Tests Test 12/01/18 09:23 12/01/18 09:46 12/01/18 11:47 12/01/18 13:30 Bedside Glucose 98 118 Sodium Level 155 H Potassium Level 4.0 Chloride Level 107 Carbon Dioxide 38 H Level Anion Gap 10 Blood Urea 69 H Nitrogen Creatinine 1.87 H Est Glomerular Filtrat Rate mL/min Glucose Level 109 Calcium Level 9.1 Blood Gas Blood Specimen arterial Source Arterial Blood 12/01/2018 1:39: Date Drawn 23 PM Arterial Blood 7.333 L pH (Temp corrected ) Arterial Blood 70.0 H pCO2 (Temp correct) Arterial Blood 66.1 L pO2 (Temp corrected ) Arterial Blood 36.3 H HCO3 Arterial Blood 8.6 H Base Excess Arterial Blood 90.8 L Oxygen Saturati on Nilson Test ACCEPTAB Arterial Blood Right Radial Gas Puncture Site Arterial 0.9 Blood Carboxyhe moglobin Arterial Blood 0.3 Methemoglobin Blood Gas A-a 211.7 H O2 Differential Oxyhemoglobin 89.7 L Percent Blood Gas 37.0 Temperature Blood Gas HFNC Modality FiO2 50.[address] Keller Critical Value MORENA JOHNSON Read Back Blood Gas Winnie JIMENES Notified Whom Blood Gas 12/01/2018 1:44: Notified Time 42 PM Test 12/01/18 14:56 12/01/18 17:27 12/01/18 20:26 12/01/18 21:09 Sodium Level 155 H 154 H Potassium Level 3.5 3.4 L Chloride Level 106 106 Carbon Dioxide 38 H 39 H Level Anion Gap 11 9 Blood Urea 71 H 65 H Nitrogen Creatinine 1.91 H 2.04 H Est Glomerular Filtrat Rate mL/min Glucose Level 122 123 Calcium Level 9.2 8.9 Bedside Glucose 113 111 Magnesium Level 2.0 Test 12/02/18 00:30 12/02/18 00:43 12/02/18 03:17 12/02/18 04:24 Lactic Acid 1.0 Level Bedside Glucose 100 Blood Gas Blood arterial Specimen Source Arterial Blood 12/02/2018 3:15: Date Drawn 46 AM Arterial Blood 7.293 *L pH (Temp corrected ) Arterial Blood 85.8 *H pCO2 (Temp correct) Arterial Blood 48.5 *L pO2 (Temp corrected ) Arterial Blood 40.6 *H HCO3 Arterial Blood 11.5 H Base Excess Arterial Blood 81.6 L Oxygen Saturati on Nilson Test ACCEPTAB Arterial Blood Right Radial Gas Puncture Site Arterial 0.9 Blood Carboxyhe moglobin Arterial Blood 0.4 Methemoglobin Blood Gas A-a 578.7 H O2 Differential Oxyhemoglobin 80.5 L Percent Blood Gas 37.0 Temperature Blood Gas HFNC Modality FiO2 100.0 Blood Gas J RELOS RN Critical Value Read Back Blood Gas UP Notified Whom Blood Gas 12/02/2018 3:28: Notified Time 00 AM White Blood 7.3 Count Red Blood Count 4.12 L Hemoglobin 9.0 L Hematocrit 35.5 L Mean 86.2 Corpuscular Volume Mean 21.8 L Corpuscular Hemoglobin Mean 25.4 L Corpuscular Hemoglobin Conc ent Red Cell 31.4 H Distribution Width Platelet Count 263 Mean Platelet 11.0 H Volume Immature 0.400 Granulocytes % Neutrophils % 71.5 Lymphocytes % 14.0 L Monocytes % 9.8 Eosinophils % 3.7 Basophils % 0.6 Nucleated Red 0.0 Blood Cells % Immature 0.030 Granulocytes # Neutrophils # 5.2 Lymphocytes # 1.0 Monocytes # 0.7 Eosinophils # 0.3 Basophils # 0.0 Nucleated Red 0.0 Blood Cells # Prothrombin 17.8 H Time Prothrombin 1.4 Time Ratio INR 1.46 International Normalized Rati o Activated 43.1 H Partial Thrombo plast Time Sodium Level 153 H Potassium Level 4.0 Chloride Level 108 Carbon Dioxide 39 H Level Anion Gap 6 Blood Urea 70 H Nitrogen Creatinine 2.08 H Est Glomerular Filtrat Rate mL/min Glucose Level 115 Calcium Level 9.1 Phosphorus 4.4 Level Magnesium Level 2.1 Total Bilirubin 0.1 L Direct 0.00 Bilirubin Indirect 0.1 Bilirubin Aspartate Amino 28 Transf (AST/SGO T) Alanine 25 Aminotransferas e (ALT/SGPT) Alkaline 58 Phosphatase Total Protein 6.3 Albumin 3.3 Globulin 3.00 Albumin/Globuli 1.10 n Ratio Test 12/02/18 05:00 12/02/18 06:11 12/02/18 07:00 Blood Gas Blood arterial Blood arterial Specimen Source Arterial Blood 12/02/2018 5:10: 12/02/2018 7:05: Date Drawn 24 AM 36 AM Arterial Blood 7.255 *L 7.388 pH (Temp corrected ) Arterial Blood 92.4 *H 64.0 H pCO2 (Temp correct) Arterial Blood 103.0 H 165.8 H pO2 (Temp corrected ) Arterial Blood 40.1 *H 37.7 H HCO3 Arterial Blood 10.0 H 10.8 H Base Excess Arterial Blood 96.9 99.0 Oxygen Saturati on [place]ils[place] Test ACCEPTAB ACCEPTAB Arterial Blood Right Radial Right Radial Gas Puncture Site Arterial 1.2 0.5 Blood Carboxyhe moglobin Arterial Blood 0.5 0.5 Methemoglobin Blood Gas A-a 517.6 H 483.2 H O2 Differential Oxyhemoglobin 95.3 98.0 Percent Blood Gas 37.0 37.0 Temperature Blood Gas 26.0 24.0 Respiration Rate Blood Gas 27 24 Actual Respiration Rat e Blood Gas MASK - BIPAP VENT - AC Modality FiO2 100.0 100.0 Blood Gas 20/8 IPAP/EPAP Ratio Blood Gas Lala LEO MD Critical Value Read Back Blood Gas MINI SWANSON Notified Whom Blood Gas 12/02/2018 5:23: 12/02/2018 7:23: Notified Time 34 AM 12 AM Bedside Glucose 114 Blood Gas Tidal 500.0 Volume Blood Gas Low 5.0 PEEP Setting Consultation Date/Type/Reason Admit Date/Time Nov 23, 2018 at 22:01 Initial Consult Date 11/24/18 Type of Consult NEPHROLOGY Requesting Provider: NAYANA GARCIA 24 HR Interval Summary Free Text/Dictation plan for [facility] today, afebrile, BP stable , on BIPAP, U/O 3.9 Liter Exam/Review of Systems Vital Signs Vitals Vital Signs Date Temp Pulse Resp B/P (MAP) Pulse Ox O2 O2 Flow FiO2 Time Delivery Rate 12/02/18 71 24 99 100 06:09 12/02/18 109/49 Mechanica 06:00 (69) l Ventilato r 12/02/18 100.8 04:00 11/28/18 8.0 23:00 Intake and Output 12/01/18 12/01/18 12/02/18 1515:00 23:00 07:00 IntakeIntake Total 1635 ml 800 ml OutputOutput Total 600 ml BalanceBalance 1035 ml 800 ml Exam Constitutional: moderate distress, confused disoriented on BIPAP Respiratory: Bilateral coarse BS+, basilar crackles Cardiovascular: regular rate and rhythm, nl pulses Gastrointestinal: soft, non-tender Musculoskeletal: nl extremities to inspection, muscle weakness, swelling Neurological: confused, lethargic Medications Medications Current Medications Ondansetron HCl (Zofran Inj) 4 mg Q6H PRN IV NAUSEA AND/OR VOMITING; Start 11/23/18 at 22:30 Acetaminophen (Tylenol Liquid) 650 mg Q6H PRN PO PAIN LEVEL 1-3 OR FEVER Last administered on 12/02/18at 02:31; Admin Dose 650 MG; Start 11/23/18 at 22:30 Acetaminophen (Tylenol Supp) 650 mg Q4H PRN [place] PAIN LEVEL 1-3 OR FEVER; Start 11/23/18 at 22:30 Atorvastatin Calcium (Lipitor) 20 mg HS PO Last administered on 12/01/18at 20:18; Admin Dose 20 MG; Start 11/24/18 at 21:00 Albuterol/ Ipratropium (Duoneb) 3 ml Q4H RESP THERAPY PRN HHN SHORTNESS OF BREATH; Start 11/24/18 at 09:00 Aripiprazole (Abilify) 5 mg DAILY PO Last administered on 12/01/18 09:05; Admin Dose 5 MG; Start 11/24/18 at 09:30 Digoxin (Digoxin) 0.25 mg DAILY@1300 PO Last administered on 11/26/18at 13:41; Admin Dose 0.25 MG; Start 11/24/18 at 13:00; Status Hold Escitalopram Oxalate (Lexapro) 20 mg DAILY PO Last administered on 12/01/18at 09:05; Admin Dose 20 MG; Start 11/24/18 at 09:30 Loratadine (Claritin) 10 mg DAILY PO Last administered on 12/01/18 09:06; Admin Dose 10 MG; Start 11/24/18 at 10:00 Multivitamins Therapeutic (Theragran) 1 tab DAILY PO Last administered on 12/01/18 09:06; Admin Dose 1 TAB; Start 11/24/18 at 09:30 Potassium Chloride (Micro-K) 8 meq DAILY PO Last administered on 11/24/18 10:12; Admin Dose 8 MEQ; Start 11/24/18 at 10:00; Status Hold Tamsulosin HCl (Flomax) 0.4 mg HS PO Last administered on 11/30/18 20:59; Admin Dose 0.4 MG; Start 11/24/18 at 21:00 Calcium/Vitamin D (Oyster Shell/ Vit-D (500/200)) 1 tab DAILY PO Last administered on 12/01/18 09:06; Admin Dose 1 TAB; Start 11/24/18 at 09:30 Metoprolol Tartrate (Lopressor) 5 mg Q4H PRN IV HR>110 Hold SBP<100; Start 11/24/18 at 11:00 Atenolol (Tenormin) 25 mg DAILY PO Last administered on 12/01/18 09:06; Admin Dose 25 MG; Start 11/25/18 at 14:00 Diltiazem HCl (Cardizem Sr) 120 mg DAILY PO ; Start 11/25/18 at 14:00; Status Hold Cefepime HCl 50 ml @ 100 mls/hr Q24H IVPB Last administered on 12/01/18at 11:45; Admin Dose 100 MLS/HR; Start 11/26/18 at 12:00 IV Flush (NS 10 ml) 10 ml PRN PRN IV IV PROTOCOL; Start 11/25/18 at 16:00 Hydralazine HCl (Apresoline) 25 mg Q8 PO Last administered on 12/01/18 05:36; Admin Dose 25 MG; Start 11/26/18 at 22:00 Pantoprazole (Protonix Iv) 40 mg DAILY@06 IV Last administered on 12/02/18at 06:13; Admin Dose 40 MG; Start 11/29/18 at 06:00 Enoxaparin Sodium (Lovenox) 30 mg DAILY SC Last administered on 12/01/18at 09:07; Admin Dose 30 MG; Start 11/30/18 at 09:00 Diagnostic Test (Pha) (Accu-Chek) 1 ea 02 XX Last administered on 12/02/18at 01:28; Admin Dose 1 EA; Start 12/01/18 at 02:00 Insulin Aspart (Novolog Insulin Pen) (Adult SC Insulin - Mild Algorithm)... Q4 SC ; Start 11/30/18 at 09:00 Miscellaneous Information 1 ea NOTE XX ; Start 11/30/18 at 08:00 Glucose (Glutose) 15 gm Q15M PRN PO DECREASED GLUCOSE; Start 11/30/18 at 08:00 Glucose (Glutose) 22.5 gm Q15M PRN PO DECREASED GLUCOSE; Start 11/30/18 at 08:00 Dextrose (D50w Syringe) 25 ml Q15M PRN IV DECREASED GLUCOSE; Start 11/30/18 at 08:00 Dextrose (D50w Syringe) 50 ml Q15M PRN IV DECREASED GLUCOSE; Start 11/30/18 at 08:00 Glucagon (Glucagen) 1 mg Q15M PRN IM DECREASED GLUCOSE; Start 11/30/18 at 08:00 Glucose (Glutose) 15 gm Q15M PRN BUCCAL DECREASED GLUCOSE; Start 11/30/18 at 08:00 Aspirin (Aspirin) 325 mg DAILY NGT Last administered on 12/01/18at 09:05; Admin Dose 325 MG; Start 11/30/18 at 12:00 Dextrose 1,000 ml @ 100 mls/hr Q10H IV Last administered on 12/01/18at 22:30; Admin Dose 100 MLS/HR; Start 11/30/18 at 15:30 Midazolam HCl 50 ml @ 1 mls/hr TITRATE IV Last administered on 12/02/18at 06:59; Admin Dose 2 MLS/HR; Start 12/02/18 at 07:00 RENAN HERNANDEZ MD Dec 02, 2018 08:27
[2018-12-02] MEDS: CALCIUM/VITAMIN D (500/200) TAB PO SCH (08:28)
[2018-12-02] MEDS: ACETAMINOPHEN 650 MG SUPP PR PRN ×2 (08:29→21:21)
[2018-12-02] MEDS: ENOXAPARIN 30 MG/0.3 ML SYG SC SCH (08:29)
[2018-12-02] MEDS: ATENOLOL 50 MG TAB PO SCH (08:29)
[2018-12-02] MEDS: BALSAM PERU/CASTOR OIL 60 GM TUBE TOP SCH ×2 (08:30→20:10)
[2018-12-02] MEDS ORDERED: NORepinephrine 8MG/250 ML (PMX 250 ML ONE (09:19)
[2018-12-02] MEDS: DEXTROSE 5% 1,000 ML IV SCH ×2 (09:25→19:44)
[2018-12-02] MEDS ORDERED: IODIXANOL LOCM 100 ML BTL ONE (10:09)
[2018-12-02] MEDS ORDERED: LIDOCAINE 1% (MDV) 20 ML INJ ONE (10:09)
[2018-12-02] MEDS ORDERED: VERAPAMIL 5 MG INJ ONE (10:09)
[2018-12-02] MEDS ORDERED: HEPARIN 1000 UNITS/ML 10 ML INJ ONE (10:09)
[2018-12-02] MEDS ORDERED: NITROGLYCERIN (IC) 100 MCG/ML INJ ONE (10:09)
--- NOTE | 2018-12-02 10:34 | CONS ---
Date/Time of Note Date/Time of Note DATE: 12/02/18 TIME: 10:31 Consult Date/Type/Reason Admit Date/Time Nov 23, 2018 at 22:01 Initial Consult Date 11/25/18 Type of Consultation: Pulm/CCM Requesting Provider: NAYANA GARCIA Subjective Intubated yesterday for respiratory distress. Cardiac cath today Objective Vital Signs Date Temp Pulse Resp B/P (MAP) Pulse Ox O2 O2 Flow FiO2 Time Delivery Rate 12/02/18 98 50 10:16 12/02/18 97.8 10:04 12/02/18 69 24 10:00 12/02/18 81/45 (57) Mechanical 09:45 Ventilator 11/28/18 8.0 23:00 Intake and Output 12/01/18 12/01/18 12/02/18 1414:59 22:59 06:59 IntakeIntake Total 1520 ml 915 ml OutputOutput Total 600 ml BalanceBalance 920 ml 915 ml Exam GENERAL: Elderly Italian gentleman remains somewhat lethargic. VITAL SIGNS: per chart NECK: Supple. No JVD or lymphadenopathy. CARDIAC EXAM: S1, S2. No added sounds or murmurs. CHEST: Diminished air entry bilaterally ABDOMEN: Soft, nontender. No guarding or rebound. EXTREMITIES: No cyanosis, clubbing or edema. NEUROLOGIC: Generalized weakness. No focal deficits. Results/Medications Result Diagram: 12/02/18 0424 12/02/18 0424 Results 24 hrs Laboratory Tests Test 12/01/18 11:47 12/01/18 13:30 12/01/18 14:56 12/01/18 17:27 Bedside Glucose 118 113 Blood Gas Blood arterial Specimen Source Arterial Blood 12/01/2018 1:39:2 Date Drawn 3 PM Arterial Blood 7.333 L pH (Temp corrected ) Arterial Blood 70.0 H pCO2 (Temp correct) Arterial Blood 66.1 L pO2 (Temp corrected ) Arterial Blood 36.3 H HCO3 Arterial Blood 8.6 H Base Excess Arterial Blood 90.8 L Oxygen Saturati on Nilson Test ACCEPTAB Arterial Blood Right Radial Gas Puncture Site Arterial 0.9 Blood Carboxyhe moglobin Arterial Blood 0.3 Methemoglobin Blood Gas A-a 211.7 H O2 Differential Oxyhemoglobin 89.7 L Percent Blood Gas 37.0 Temperature Blood Gas HFNC Modality FiO2 50.[address] Keller Critical Value MORENA CHRISTIEVAD Read Back Blood Gas T JALIL Notified Whom Blood Gas 12/01/2018 1:44:4 Notified Time 2 PM Sodium Level 155 H Potassium Level 3.5 Chloride Level 106 Carbon Dioxide 38 H Level Anion Gap 11 Blood Urea 71 H Nitrogen Creatinine 1.91 H Est Glomerular Filtrat Rate mL/min Glucose Level 122 Calcium Level 9.2 Test 12/01/18 20:26 12/01/18 21:09 12/02/18 00:30 12/02/18 00:43 Bedside Glucose 111 100 Sodium Level 154 H Potassium Level 3.4 L Chloride Level 106 Carbon Dioxide 39 H Level Anion Gap 9 Blood Urea 65 H Nitrogen Creatinine 2.04 H Est Glomerular Filtrat Rate mL/min Glucose Level 123 Calcium Level 8.9 Magnesium Level 2.0 Lactic Acid 1.0 Level Test 12/02/18 03:17 12/02/18 04:24 12/02/18 05:00 12/02/18 06:11 Blood Gas Blood arterial Blood Specimen arterial Source Arterial Blood 12/02/2018 3:15: 12/02/2018 5:10 Date Drawn 46 AM :24 AM Arterial Blood 7.293 *L 7.255 *L pH (Temp corrected ) Arterial Blood 85.8 *H 92.4 *H pCO2 (Temp correct) Arterial Blood 48.5 *L 103.0 H pO2 (Temp corrected ) Arterial Blood 40.6 *H 40.1 *H HCO3 Arterial Blood 11.5 H 10.0 H Base Excess Arterial Blood 81.6 L 96.9 Oxygen Saturati on Nilson Test ACCEPTAB ACCEPTAB Arterial Blood Right Radial Right Radial Gas Puncture Site Arterial 0.9 1.2 Blood Carboxyhe moglobin Arterial Blood 0.4 0.5 Methemoglobin Blood Gas A-a 578.7 H 517.6 H O2 Differential Oxyhemoglobin 80.5 L 95.3 Percent Blood Gas 37.0 37.0 Temperature Blood Gas HFNC MASK - BIPAP Modality FiO2 100.0 100.0 Blood Gas Lala GARNER RN, MD Critical Value Read Back Blood Gas UP MA Notified Whom Blood Gas 12/02/2018 3:28: 12/02/2018 5:23 Notified Time 00 AM :34 AM White Blood 7.3 Count Red Blood Count 4.12 L Hemoglobin 9.0 L Hematocrit 35.5 L Mean 86.2 Corpuscular Volume Mean 21.8 L Corpuscular Hemoglobin Mean 25.4 L Corpuscular Hemoglobin Conc ent Red Cell 31.4 H Distribution Width Platelet Count 263 Mean Platelet 11.0 H Volume Immature 0.400 Granulocytes % Neutrophils % 71.5 Lymphocytes % 14.0 L Monocytes % 9.8 Eosinophils % 3.7 Basophils % 0.6 Nucleated Red 0.0 Blood Cells % Immature 0.030 Granulocytes # Neutrophils # 5.2 Lymphocytes # 1.0 Monocytes # 0.7 Eosinophils # 0.3 Basophils # 0.0 Nucleated Red 0.0 Blood Cells # Prothrombin 17.8 H Time Prothrombin 1.4 Time Ratio INR 1.46 International Normalized Rati o Activated 43.1 H Partial Thrombo plast Time Sodium Level 153 H Potassium Level 4.0 Chloride Level 108 Carbon Dioxide 39 H Level Anion Gap 6 Blood Urea 70 H Nitrogen Creatinine 2.08 H Est Glomerular Filtrat Rate mL/min Glucose Level 115 Calcium Level 9.1 Phosphorus 4.4 Level Magnesium Level 2.1 Total Bilirubin 0.1 L Direct 0.00 Bilirubin Indirect 0.1 Bilirubin Aspartate Amino 28 Transf (AST/SGO T) Alanine 25 Aminotransferas e (ALT/SGPT) Alkaline 58 Phosphatase Total Protein 6.3 Albumin 3.3 Globulin 3.00 Albumin/Globuli 1.10 n Ratio Blood Gas 26.0 Respiration Rate Blood Gas 27 Actual Respiration Rat e Blood Gas 20/8 IPAP/EPAP Ratio Bedside Glucose 114 Test 12/02/18 07:00 12/02/18 08:19 Blood Gas Blood arterial Specimen Source Arterial Blood 12/02/2018 7:05: Date Drawn 36 AM Arterial Blood 7.388 pH (Temp corrected ) Arterial Blood 64.0 H pCO2 (Temp correct) Arterial Blood 165.8 H pO2 (Temp corrected ) Arterial Blood 37.7 H HCO3 Arterial Blood 10.8 H Base Excess Arterial Blood 99.0 Oxygen Saturati on Nilson Test ACCEPTAB Arterial Blood Right Radial Gas Puncture Site Arterial 0.5 Blood Carboxyhe moglobin Arterial Blood 0.5 Methemoglobin Blood Gas A-a 483.2 H O2 Differential Oxyhemoglobin 98.0 Percent Blood Gas 37.0 Temperature Blood Gas 24.0 Respiration Rate Blood Gas 24 Actual Respiration Rat e Blood Gas VENT - AC Modality FiO2 100.0 Blood Gas Tidal 500.0 Volume Blood Gas Low 5.0 PEEP Setting Blood Gas TM Notified Whom Blood Gas 12/02/2018 7:23: Notified Time 12 AM Bedside Glucose 102 Medications Current Medications Ondansetron HCl (Zofran Inj) 4 mg Q6H PRN IV NAUSEA AND/OR VOMITING; Start 11/23/18 at 22:30 Acetaminophen (Tylenol Liquid) 650 mg Q6H PRN PO PAIN LEVEL 1-3 OR FEVER Last administered on 12/02/18 02:31; Admin Dose 650 MG; Start 11/23/18 at 22:30 Acetaminophen (Tylenol Supp) [address] PAIN LEVEL 1-3 OR FEVER Last administered on 12/02/18 08:29; Admin Dose 650 MG; Start 11/23/18 at 22:30 Atorvastatin Calcium (Lipitor) 20 mg HS PO Last administered on 12/01/18 20:18; Admin Dose 20 MG; Start 11/24/18 at 21:00 Albuterol/ Ipratropium (Duoneb) 3 ml Q4H RESP THERAPY PRN HHN SHORTNESS OF BREATH; Start 11/24/18 at 09:00 Aripiprazole (Abilify) 5 mg DAILY PO Last administered on 12/02/18 08:24; Admin Dose 5 MG; Start 11/24/18 at 09:30 Digoxin (Digoxin) 0.25 mg DAILY@1300 PO Last administered on 11/26/18 13:41; Admin Dose 0.25 MG; Start 11/24/18 at 13:00; Status Hold Escitalopram Oxalate (Lexapro) 20 mg DAILY PO Last administered on 12/02/18 08:24; Admin Dose 20 MG; Start 11/24/18 at 09:30 Loratadine (Claritin) 10 mg DAILY PO Last administered on 12/02/18 08:24; Admin Dose 10 MG; Start 11/24/18 at 10:00 Multivitamins Therapeutic (Theragran) 1 tab DAILY PO Last administered on 12/02/18 08:24; Admin Dose 1 TAB; Start 11/24/18 at 09:30 Potassium Chloride (Micro-K) 8 meq DAILY PO Last administered on 11/24/18 10:12; Admin Dose 8 MEQ; Start 11/24/18 at 10:00; Status Hold Tamsulosin HCl (Flomax) 0.4 mg HS PO Last administered on 11/30/18at 20:59; Admin Dose 0.4 MG; Start 11/24/18 at 21:00 Calcium/Vitamin D (Oyster Shell/ Vit-D (500/200)) 1 tab DAILY PO Last administered on 12/02/18at 08:28; Admin Dose 1 TAB; Start 11/24/18 at 09:30 Metoprolol Tartrate (Lopressor) 5 mg Q4H PRN IV HR>110 Hold SBP<100; Start 11/24/18 at 11:00 Atenolol (Tenormin) 25 mg DAILY PO Last administered on 12/01/18at 09:06; Admin Dose 25 MG; Start 11/25/18 at 14:00 Diltiazem HCl (Cardizem Sr) 120 mg DAILY PO ; Start 11/25/18 at 14:00; Status Hold Cefepime HCl 50 ml @ 100 mls/hr Q24H IVPB Last administered on 12/01/18at 11:45; Admin Dose 100 MLS/HR; Start 11/26/18 at 12:00 IV Flush (NS 10 ml) 10 ml PRN PRN IV IV PROTOCOL; Start 11/25/18 at 16:00 Hydralazine HCl (Apresoline) 25 mg Q8 PO Last administered on 12/01/18at 05:36; Admin Dose 25 MG; Start 11/26/18 at 22:00 Pantoprazole (Protonix Iv) 40 mg DAILY@06 IV Last administered on 12/02/18at 06:13; Admin Dose 40 MG; Start 11/29/18 at 06:00 Enoxaparin Sodium (Lovenox) 30 mg DAILY SC Last administered on 12/01/18at 09:07; Admin Dose 30 MG; Start 11/30/18 at 09:00 Diagnostic Test (Pha) (Accu-Chek) 1 ea 02 XX Last administered on 12/02/18at 01:28; Admin Dose 1 EA; Start 12/01/18 at 02:00 Insulin Aspart (Novolog Insulin Pen) (Adult SC Insulin - Mild Algorithm)... Q4 SC ; Start 11/30/18 at 09:00 Miscellaneous Information 1 ea NOTE XX ; Start 11/30/18 at 08:00 Glucose (Glutose) 15 gm Q15M PRN PO DECREASED GLUCOSE; Start 11/30/18 at 08:00 Glucose (Glutose) 22.5 gm Q15M PRN PO DECREASED GLUCOSE; Start 11/30/18 at 08:00 Dextrose (D50w Syringe) 25 ml Q15M PRN IV DECREASED GLUCOSE; Start 11/30/18 at 08:00 Dextrose (D50w Syringe) 50 ml Q15M PRN IV DECREASED GLUCOSE; Start 11/30/18 at 08:00 Glucagon (Glucagen) 1 mg Q15M PRN IM DECREASED GLUCOSE; Start 11/30/18 at 08:00 Glucose (Glutose) 15 gm Q15M PRN BUCCAL DECREASED GLUCOSE; Start 11/30/18 at 08:00 Aspirin (Aspirin) 325 mg DAILY NGT Last administered on 12/02/18at 08:24; Admin Dose 325 MG; Start 11/30/18 at 12:00 Dextrose 1,000 ml @ 100 mls/hr Q10H IV Last administered on 12/02/18at 09:25; Admin Dose 100 MLS/HR; Start 11/30/18 at 15:30 Midazolam HCl 50 ml @ 1 mls/hr TITRATE IV Last administered on 12/02/18at 06:59; Admin Dose 2 MLS/HR; Start 12/02/18 at 07:00 Norepinephrine 16 mg/Dextrose 500 ml @ 1.88 mls/hr TITRATE IV Last administered on 12/02/18at 10:03; Admin Dose 9.383 MLS/HR; Start 12/02/18 at 09:30 Fentanyl 100 ml @ 2.5 mls/hr TITRATE IV ; Start 12/02/18 at 10:30 Assessment/Plan Chief Complaint/Hosp Course IMP: 1. Acute hypoxemic/hypercapnic respiratory failure--most likely due to volume overload +/- pneumonia. Right pleural effusion. 2. Sigmoid mass, presumed colon cancer with recent severe anemia. 3. Non-ST elevation myocardial infarction. 4. Atrial fibrillation with rapid ventricular response, now rate controlled 5. ARF 6. Anemia RECS: 1. Continue vent. Thoracentesis right lung. 2. Cardiac cath today 3. Continue renal recs 4. GI recommendations, not surgical candidate. For stent placement whilst intubated. Critical care time 40 minutes JANNET BERG MD, [facility] Dec 02, 2018 10:34
--- NOTE | 2018-12-02 11:00 | NUR ---
ICU NURSE NOTES: DURING SKIN ASSESSMENT, IT APPEARS THERE MAY BE SOME SLOUGH ON THE DTI THAT WAS PRESENT ON ADMISSION. THIS WOULD MAKE IT A FULL THICKNESS WOUND. THE AREA IS NOT ON A BONY PROMINENCE. S/W DAVID DERAS. SHE WILL SEE THE PATIENT TOMORROW PT WAS GOING TO POISER BALANCE AND THEN FOR U/S GUIDED PARACENTESIS. NOTIFIED SON AT BEDSIDE OF SKIN ISSUE. HE WAS ABLE TO SEE IT AND IS AWARE THAT HE HAD SKIN BREAKDOWN ON ADMISSION. EXPLAINED INTERVENTION BEING DONE TO PROTECT SKIN. NO FURTHER QUESTIONS.
[2018-12-02] MEDS ORDERED: SOD CHLORIDE 0.9% 1,000 ML IV SCH (11:46)
--- NOTE | 2018-12-02 11:49 | SIPON ---
Date/Time of Note Date/Time of Note DATE: 12/02/18 TIME: 11:48 Operative Report Preoperative Diagnosis 1.Nstemi Postoperative Diagnosis moderate nonobstructive cad Operation/Procedure Performed 1.[facility] Surgeon see signature line educational/development assistant 1.Abram Anesthesia: general Estimated blood loss: minimal Transfusion Required none Specimen none Grafts/Implants none Complications none TWAN ESTEVEZ Dec 02, 2018 11:48
--- NOTE | 2018-12-02 11:53 | CONS ---
Date/Time of Note Date/Time of Note DATE: 12/02/18 TIME: 11:49 Assessment/Plan Assessment/Plan Hospital Course IMPRESSION: 1. Non-ST elevation myocardial infarction, currently down trending cardiac enzymes likely a type 2 demand infarct in the setting of fevers, hypercarbic respiratory failure.-downtrended cardiac enzymes. NO cp. Echo this admit 11/24 with NL EF 55%. Now s/p LHC 12/02 with no sig major epicardial obstructive cad. LVEDP 21 2. Abnormal electrocardiogram. 3. Right bundle branch block. 4. Colonic mass. 5. Anemia. 6. Renal failure-worsening 7. Leukocytosis. 8. Coagulopathy. 9. Sepsis. 10. Atrial fibrillation-now in SR 11.CHF-diastolic acute on chronic 12. Resp failure s/p intubation 14. Hypotension on levophed Recc: -ICU -Continue asa/statin -Wean pressors as tolerated -Continue broad spectrum abx's and f/u cx data -wean vent as possible Result Diagram: 12/02/18 0424 12/02/18 0424 Results 24hrs Laboratory Tests Test 12/01/18 13:30 12/01/18 14:56 12/01/18 17:27 12/01/18 20:26 Blood Gas Blood arterial Specimen Source Arterial Blood 12/01/2018 1:39:2 Date Drawn 3 PM Arterial Blood 7.333 L pH (Temp corrected ) Arterial Blood 70.0 H pCO2 (Temp correct) Arterial Blood 66.1 L pO2 (Temp corrected ) Arterial Blood 36.3 H HCO3 Arterial Blood 8.6 H Base Excess Arterial Blood 90.8 L Oxygen Saturati on Nilson Test ACCEPTAB Arterial Blood Right Radial Gas Puncture Site Arterial 0.9 Blood Carboxyhe moglobin Arterial Blood 0.3 Methemoglobin Blood Gas A-a 211.7 H O2 Differential Oxyhemoglobin 89.7 L Percent Blood Gas 37.0 Temperature Blood Gas HFNC Modality FiO2 50.[address] Keller Critical Value MORENA JOHNSON Read Back Blood Gas Winnie JIMENES Notified Whom Blood Gas 12/01/2018 1:44:4 Notified Time 2 PM Sodium Level 155 H Potassium Level 3.5 Chloride Level 106 Carbon Dioxide 38 H Level Anion Gap 11 Blood Urea 71 H Nitrogen Creatinine 1.91 H Est Glomerular Filtrat Rate mL/min Glucose Level 122 Calcium Level 9.2 Bedside Glucose 113 111 Test 12/01/18 21:09 12/02/18 00:30 12/02/18 00:43 12/02/18 03:17 Sodium Level 154 H Potassium Level 3.4 L Chloride Level 106 Carbon Dioxide 39 H Level Anion Gap 9 Blood Urea 65 H Nitrogen Creatinine 2.04 H Est Glomerular Filtrat Rate mL/min Glucose Level 123 Calcium Level 8.9 Magnesium Level 2.0 Lactic Acid 1.0 Level Bedside Glucose 100 Blood Gas Blood Specimen arterial Source Arterial Blood 12/02/2018 3:15 Date Drawn :46 AM Arterial Blood 7.293 *L pH (Temp corrected ) Arterial Blood 85.8 *H pCO2 (Temp correct) Arterial Blood 48.5 *L pO2 (Temp corrected ) Arterial Blood 40.6 *H HCO3 Arterial Blood 11.5 H Base Excess Arterial Blood 81.6 L Oxygen Saturati on Nilson Test ACCEPTAB Arterial Blood Right Radial Gas Puncture Site Arterial 0.9 Blood Carboxyhe moglobin Arterial Blood 0.4 Methemoglobin Blood Gas A-a 578.7 H O2 Differential Oxyhemoglobin 80.5 L Percent Blood Gas 37.0 Temperature Blood Gas HFNC Modality FiO2 100.0 Blood Gas J CHRISSY RN Critical Value Read Back Blood Gas UP Notified Whom Blood Gas 12/02/2018 3:28 Notified Time :00 AM Test 12/02/18 04:24 12/02/18 05:00 12/02/18 06:11 12/02/18 07:00 White Blood 7.3 Count Red Blood Count 4.12 L Hemoglobin 9.0 L Hematocrit 35.5 L Mean 86.2 Corpuscular Volume Mean 21.8 L Corpuscular Hemoglobin Mean 25.4 L Corpuscular Hemoglobin Conc ent Red Cell 31.4 H Distribution Width Platelet Count 263 Mean Platelet 11.0 H Volume Immature 0.400 Granulocytes % Neutrophils % 71.5 Lymphocytes % 14.0 L Monocytes % 9.8 Eosinophils % 3.7 Basophils % 0.6 Nucleated Red 0.0 Blood Cells % Immature 0.030 Granulocytes # Neutrophils # 5.2 Lymphocytes # 1.0 Monocytes # 0.7 Eosinophils # 0.3 Basophils # 0.0 Nucleated Red 0.0 Blood Cells # Prothrombin 17.8 H Time Prothrombin 1.4 Time Ratio INR 1.46 International Normalized Rati o Activated 43.1 H Partial Thrombo plast Time Sodium Level 153 H Potassium Level 4.0 Chloride Level 108 Carbon Dioxide 39 H Level Anion Gap 6 Blood Urea 70 H Nitrogen Creatinine 2.08 H Est Glomerular Filtrat Rate mL/min Glucose Level 115 Calcium Level 9.1 Phosphorus 4.4 Level Magnesium Level 2.1 Total Bilirubin 0.1 L Direct 0.00 Bilirubin Indirect 0.1 Bilirubin Aspartate Amino 28 Transf (AST/SGO T) Alanine 25 Aminotransferas e (ALT/SGPT) Alkaline 58 Phosphatase Total Protein 6.3 Albumin 3.3 Globulin 3.00 Albumin/Globuli 1.10 n Ratio Blood Gas Blood arterial Blood Specimen arterial Source Arterial Blood 12/02/2018 5:10: 12/02/2018 7:05 Date Drawn 24 AM :36 AM Arterial Blood 7.255 *L 7.388 pH (Temp corrected ) Arterial Blood 92.4 *H 64.0 H pCO2 (Temp correct) Arterial Blood 103.0 H 165.8 H pO2 (Temp corrected ) Arterial Blood 40.1 *H 37.7 H HCO3 Arterial Blood 10.0 H 10.8 H Base Excess Arterial Blood 96.9 99.0 Oxygen Saturati on Nilson Test ACCEPTAB ACCEPTAB Arterial Blood Right Radial Right Radial Gas Puncture Site Arterial 1.2 0.5 Blood Carboxyhe moglobin Arterial Blood 0.5 0.5 Methemoglobin Blood Gas A-a 517.6 H 483.2 H O2 Differential Oxyhemoglobin 95.3 98.0 Percent Blood Gas 37.0 37.0 Temperature Blood Gas 26.0 24.0 Respiration Rate Blood Gas 27 24 Actual Respiration Rat e Blood Gas MASK - BIPAP VENT - AC Modality FiO2 100.0 100.0 Blood Gas 20/8 IPAP/EPAP Ratio Blood Gas Lala LEO MD Critical Value Read Back Blood Gas MINI SWANSON Notified Whom Blood Gas 12/02/2018 5:23: 12/02/2018 7:23 Notified Time 34 AM :12 AM Bedside Glucose 114 Blood Gas Tidal 500.0 Volume Blood Gas Low 5.0 PEEP Setting Test 12/02/18 08:19 12/02/18 08:45 Bedside Glucose 102 Urine Color LEANNE Urine Clarity CLOUDY A Urine pH 5.0 Urine Specific 1.019 [place] Urine Ketones NEGATIVE Urine Nitrite NEGATIVE Urine Bilirubin NEGATIVE Urine 1+ H Urobilinogen Urine Leukocyte 2+ H Esterase Urine > 182 H Microscopic RBC Urine 117 H Microscopic WBC Urine Squamous FEW Epithelial Cell s Urine Yeast MANY A (Budding) Urine 2+ H Hemoglobin Urine Glucose NEGATIVE Urine Total 2+ H Protein Consultation Date/Type/Reason Admit Date/Time Nov 23, 2018 at 22:01 Initial Consult Date 11/24/18 Type of Consult cardiology Reason for Consultation Nstemi Requesting Provider: NAYANA GARCIA Exam/Review of Systems Vital Signs Vitals Vital Signs Date Temp Pulse Resp B/P (MAP) Pulse Ox O2 O2 Flow FiO2 Time Delivery Rate 12/02/18 98 50 10:16 12/02/18 97.8 10:04 12/02/18 69 24 10:00 12/02/18 81/45 (57) Mechanical 09:45 Ventilator 11/28/18 8.0 23:00 Intake and Output 12/01/18 12/01/18 12/02/18 1414:59 22:59 06:59 IntakeIntake Total 1520 ml 915 ml OutputOutput Total 600 ml BalanceBalance 920 ml 915 ml Exam Review of Systems: CONSTITUTIONAL: No fevers, chills. PULMONARY: No sob CARDIOVASCULAR: No chest pain/palpitations GASTROINTESTINAL: No nausea/vomiting. GENITOURINARY: No hematuria/dysuria. MUSCULOSKELETAL: No myagias/arthalgias. PSYCHIATRIC: The patient denies depression. NEUROLOGIC: No weakness Constitutional: other (sedated) Psych: no complaints Head: normocephalic ENMT: mucosa pink and moist, intubated Neck: supple, jvd (9 cm water) Respiratory: other (upper airway rhoncherous sounds) Cardiovascular: regular rate and rhythm Gastrointestinal: soft, non-tender Musculoskeletal: muscle weakness (generalized) Extremities: edema (trace/B) Neurological: other (sedated) Medications Medications Current Medications Ondansetron HCl (Zofran Inj) 4 mg Q6H PRN IV NAUSEA AND/OR VOMITING; Start 11/23/18 at 22:30 Acetaminophen (Tylenol Liquid) 650 mg Q6H PRN PO PAIN LEVEL 1-3 OR FEVER Last administered on 12/02/18at 02:31; Admin Dose 650 MG; Start 11/23/18 at 22:30 Acetaminophen (Tylenol Supp) 650 mg Q4H PRN DE PAIN LEVEL 1-3 OR FEVER Last administered on 12/02/18at 08:29; Admin Dose 650 MG; Start 11/23/18 at 22:30 Atorvastatin Calcium (Lipitor) 20 mg HS PO Last administered on 12/01/18 20:18; Admin Dose 20 MG; Start 11/24/18 at 21:00 Albuterol/ Ipratropium (Duoneb) 3 ml Q4H RESP THERAPY PRN HHN SHORTNESS OF BREATH; Start 11/24/18 at 09:00 Aripiprazole (Abilify) 5 mg DAILY PO Last administered on 12/02/18 08:24; Admin Dose 5 MG; Start 11/24/18 at 09:30 Digoxin (Digoxin) 0.25 mg DAILY@1300 PO Last administered on 11/26/18 13:41; Admin Dose 0.25 MG; Start 11/24/18 at 13:00; Status Hold Escitalopram Oxalate (Lexapro) 20 mg DAILY PO Last administered on 12/02/18 08:24; Admin Dose 20 MG; Start 11/24/18 at 09:30 Loratadine (Claritin) 10 mg DAILY PO Last administered on 12/02/18 08:24; Admin Dose 10 MG; Start 11/24/18 at 10:00 Multivitamins Therapeutic (Theragran) 1 tab DAILY PO Last administered on 12/02/18 08:24; Admin Dose 1 TAB; Start 11/24/18 at 09:30 Potassium Chloride (Micro-K) 8 meq DAILY PO Last administered on 11/24/18 10:12; Admin Dose 8 MEQ; Start 11/24/18 at 10:00; Status Hold Tamsulosin HCl (Flomax) 0.4 mg HS PO Last administered on 11/30/18 20:59; Admin Dose 0.4 MG; Start 11/24/18 at 21:00 Calcium/Vitamin D (Oyster Shell/ Vit-D (500/200)) 1 tab DAILY PO Last administered on 12/02/18 08:28; Admin Dose 1 TAB; Start 11/24/18 at 09:30 Metoprolol Tartrate (Lopressor) 5 mg Q4H PRN IV HR>110 Hold SBP<100; Start 11/24/18 at 11:00 Atenolol (Tenormin) 25 mg DAILY PO Last administered on 12/01/18 09:06; Admin Dose 25 MG; Start 11/25/18 at 14:00 Diltiazem HCl (Cardizem Sr) 120 mg DAILY PO ; Start 11/25/18 at 14:00; Status Hold Cefepime HCl 50 ml @ 100 mls/hr Q24H IVPB Last administered on 12/01/18at 11:45; Admin Dose 100 MLS/HR; Start 11/26/18 at 12:00 IV Flush (NS 10 ml) 10 ml PRN PRN IV IV PROTOCOL; Start 11/25/18 at 16:00 Hydralazine HCl (Apresoline) 25 mg Q8 PO Last administered on 12/01/18at 05:36; Admin Dose 25 MG; Start 11/26/18 at 22:00 Pantoprazole (Protonix Iv) 40 mg DAILY@06 IV Last administered on 12/02/18at 06:13; Admin Dose 40 MG; Start 11/29/18 at 06:00 Enoxaparin Sodium (Lovenox) 30 mg DAILY SC Last administered on 12/01/18at 09:07; Admin Dose 30 MG; Start 11/30/18 at 09:00 Diagnostic Test (Pha) (Accu-Chek) 1 ea 02 XX Last administered on 12/02/18at 01:28; Admin Dose 1 EA; Start 12/01/18 at 02:00 Insulin Aspart (Novolog Insulin Pen) (Adult SC Insulin - Mild Algorithm)... Q4 SC ; Start 11/30/18 at 09:00 Miscellaneous Information 1 ea NOTE XX ; Start 11/30/18 at 08:00 Glucose (Glutose) 15 gm Q15M PRN PO DECREASED GLUCOSE; Start 11/30/18 at 08:00 Glucose (Glutose) 22.5 gm Q15M PRN PO DECREASED GLUCOSE; Start 11/30/18 at 08:00 Dextrose (D50w Syringe) 25 ml Q15M PRN IV DECREASED GLUCOSE; Start 11/30/18 at 08:00 Dextrose (D50w Syringe) 50 ml Q15M PRN IV DECREASED GLUCOSE; Start 11/30/18 at 08:00 Glucagon (Glucagen) 1 mg Q15M PRN IM DECREASED GLUCOSE; Start 11/30/18 at 08:00 Glucose (Glutose) 15 gm Q15M PRN BUCCAL DECREASED GLUCOSE; Start 11/30/18 at 08:00 Aspirin (Aspirin) 325 mg DAILY NGT Last administered on 12/02/18at 08:24; Admin Dose 325 MG; Start 11/30/18 at 12:00 Dextrose 1,000 ml @ 100 mls/hr Q10H IV Last administered on 12/02/18at 09:25; Admin Dose 100 MLS/HR; Start 11/30/18 at 15:30 Midazolam HCl 50 ml @ 1 mls/hr TITRATE IV Last administered on 12/02/18at 06:59; Admin Dose 2 MLS/HR; Start 12/02/18 at 07:00 Norepinephrine 16 mg/Dextrose 500 ml @ 1.88 mls/hr TITRATE IV Last administered on 12/02/18at 10:03; Admin Dose 9.383 MLS/HR; Start 12/02/18 at 09:30 Fentanyl 100 ml @ 2.5 mls/hr TITRATE IV ; Start 12/02/18 at 10:30 TWAN ETSEVEZ Dec 02, 2018 11:52
[2018-12-02] MEDS ORDERED: AL HYDROX/MG HYDROX/SIMETH 30 ML CUP PO PRN (12:00)
[2018-12-02] MEDS ORDERED: ONDANSETRON 4 MG INJ IV PRN (12:00)
[2018-12-02] MEDS: HOLD all METFORMIN and METFORMIN CONTAINING medications for 48 hours post procedure. Chec XX SCH (12:00)
[2018-12-02] MEDS ORDERED: morphine 2 MG INJ IV PRN (12:00)
--- NOTE | 2018-12-02 12:25 | PN ---
Date/Time of Note Date/Time of Note DATE: 12/02/18 TIME: 12:14 Assessment/Plan VTE Prophylaxis Risk score (from [facility] [place]0 risk: 16 SCD applied (from [facility] [place]): No SCD contraindicated: other (no) Pharmacological prophylaxis: LMWH Lines/Catheters IV Catheter Type (from [facility], [place]): PICC Line Central line still needed: Yes Urinary Cath still in place: Yes Reason Cath still needed: urinary retention Assessment/Plan Assessment/Plan 78-year-old male recently diagnosed with new colon mass, who presents with: # Hypoxic and hypercapnic respiratory failure: Appears to be due to pulmonary edema and possible pneumonia. - Failed BiPAP, intubated 12/02. -continue IV antibiotics - Currently requiring pressors. - Daily weaning trials per pulmonary. # Sepsis: As evidenced by fever and tachycardia: Secondary to pneumonia -Again, continue broad-spectrum IV antibiotics -Follow-up final respiratory and blood culture results # Cardiac- elevated troponins: - Got cardiac cath 12/02, clear coronaries. # Sigmoid mass: Status post biopsy during recent hospitalization. 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 - Mass is almost completely obstructive. Because the patient is too unstable for surgery, plan for palliative rectal stent. Dr. Fang consulted. - Per discussion with Dr. Juan on 12/01, patient is not currently a surgical candidate. # Atrial fibrillation with RVR -resolved now -Continue to monitor, patient on beta-esther and digoxin, follow-up cardiology recommendations # Renal insufficiency: Oliguric acute on chronic renal failure - This was likely due to obstructive uropathy - Now that [place] is back in, patient is having post-obstructive diuresis and significant improvement in Cr. #Hypernatremia - Likely from postobstructive diuresis. - Cont D5W, titrate to serum Na. # Diabetes: Sugar stable, continue insulin while in-house DVT: lovenox GI: PPI Code status: Full. Family wants everything done to treat his multiorgan failure and cancer. Result Diagram: 12/02/18 0424 12/02/18423 Subjective 24 Hr Interval Summary Free Text/Dictation Overnight, patient developed progressive worsening respiratory failure and required intubation. Early this morning started on pressors. Later this morning went for left heart cath, has clean coronaries. I updated family that his condition is declining Exam/Review of Systems Vital Signs Vitals Vital Signs Date Temp Pulse Resp B/P (MAP) Pulse Ox O2 O2 Flow FiO2 Time Delivery Rate 12/02/18 98 50 10:16 12/02/18 97.8 10:04 12/02/18 69 24 10:00 12/02/18 81/45 (57) Mechanical 09:45 Ventilator 11/28/18 8.0 23:00 Intake and Output 12/01/18 12/01/18 12/02/18 1515:00 23:00 07:00 IntakeIntake Total 1635 ml 800 ml OutputOutput Total 600 ml BalanceBalance 1035 ml 800 ml Exam Const: Obese man sedated, intubated, unresponsive. Head: Atraumatic, normocephalic Eyes: Normal Conjunctiva, PERRLA, EOMI, normal sclera, no nystagmus ENT: Normal External Ears, Nose and Mouth, dry mucus membranes. Neck: Supple Resp: Mechanical breath sounds throughout. No crackles or wheezes. Cardio: Regular rate and rhythm, no murmurs, S1 S2 present Abd: Soft, slight distention. Normal bowel sounds, no guarding or rebound Ext: No cyanosis, or edema Medications Medications Current Medications Ondansetron HCl (Zofran Inj) 4 mg Q6H PRN IV NAUSEA AND/OR VOMITING; Start 11/23/18 at 22:30 Acetaminophen (Tylenol Liquid) 650 mg Q6H PRN PO PAIN LEVEL 1-3 OR FEVER Last administered on 12/02/18at 02:31; Admin Dose 650 MG; Start 11/23/18 at 22:30 Acetaminophen (Tylenol Supp) [address] PAIN LEVEL 1-3 OR FEVER Last administered on 12/02/18at 08:29; Admin Dose 650 MG; Start 11/23/18 at 22:30 Atorvastatin Calcium (Lipitor) 20 mg HS PO Last administered on 12/01/18at 20:18; Admin Dose 20 MG; Start 11/24/18 at 21:00 Albuterol/ Ipratropium (Duoneb) 3 ml Q4H RESP THERAPY PRN HHN SHORTNESS OF BREATH; Start 11/24/18 at 09:00 Aripiprazole (Abilify) 5 mg DAILY PO Last administered on 12/02/18 08:24; Admin Dose 5 MG; Start 11/24/18 at 09:30 Digoxin (Digoxin) 0.25 mg DAILY@1300 PO Last administered on 11/26/18 13:41; Admin Dose 0.25 MG; Start 11/24/18 at 13:00; Status Hold Escitalopram Oxalate (Lexapro) 20 mg DAILY PO Last administered on 12/02/18 08:24; Admin Dose 20 MG; Start 11/24/18 at 09:30 Loratadine (Claritin) 10 mg DAILY PO Last administered on 12/02/18 08:24; Admin Dose 10 MG; Start 11/24/18 at 10:00 Multivitamins Therapeutic (Theragran) 1 tab DAILY PO Last administered on 12/02/18 08:24; Admin Dose 1 TAB; Start 11/24/18 at 09:30 Potassium Chloride (Micro-K) 8 meq DAILY PO Last administered on 11/24/18 10:12; Admin Dose 8 MEQ; Start 11/24/18 at 10:00; Status Hold Tamsulosin HCl (Flomax) 0.4 mg HS PO Last administered on 11/30/18 20:59; Admin Dose 0.4 MG; Start 11/24/18 at 21:00 Calcium/Vitamin D (Oyster Shell/ Vit-D (500/200)) 1 tab DAILY PO Last administered on 12/02/18 08:28; Admin Dose 1 TAB; Start 11/24/18 at 09:30 Metoprolol Tartrate (Lopressor) 5 mg Q4H PRN IV HR>110 Hold SBP<100; Start 11/24/18 at 11:00 Atenolol (Tenormin) 25 mg DAILY PO Last administered on 12/01/18 09:06; Admin Dose 25 MG; Start 11/25/18 at 14:00 Diltiazem HCl (Cardizem Sr) 120 mg DAILY PO ; Start 11/25/18 at 14:00; Status Hold Cefepime HCl 50 ml @ 100 mls/hr Q24H IVPB Last administered on 12/01/18 11:45; Admin Dose 100 MLS/HR; Start 11/26/18 at 12:00 IV Flush (NS 10 ml) 10 ml PRN PRN IV IV PROTOCOL; Start 11/25/18 at 16:00 Hydralazine HCl (Apresoline) 25 mg Q8 PO Last administered on 12/01/18at 05:36; Admin Dose 25 MG; Start 11/26/18 at 22:00 Pantoprazole (Protonix Iv) 40 mg DAILY@06 IV Last administered on 12/02/18at 06:13; Admin Dose 40 MG; Start 11/29/18 at 06:00 Enoxaparin Sodium (Lovenox) 30 mg DAILY SC Last administered on 12/01/18at 09:07; Admin Dose 30 MG; Start 11/30/18 at 09:00 Diagnostic Test (Pha) (Accu-Chek) 1 ea 02 XX Last administered on 12/02/18at 01:28; Admin Dose 1 EA; Start 12/01/18 at 02:00 Insulin Aspart (Novolog Insulin Pen) (Adult SC Insulin - Mild Algorithm)... Q4 SC ; Start 11/30/18 at 09:00 Miscellaneous Information 1 ea NOTE XX ; Start 11/30/18 at 08:00 Glucose (Glutose) 15 gm Q15M PRN PO DECREASED GLUCOSE; Start 11/30/18 at 08:00 Glucose (Glutose) 22.5 gm Q15M PRN PO DECREASED GLUCOSE; Start 11/30/18 at 08:00 Dextrose (D50w Syringe) 25 ml Q15M PRN IV DECREASED GLUCOSE; Start 11/30/18 at 08:00 Dextrose (D50w Syringe) 50 ml Q15M PRN IV DECREASED GLUCOSE; Start 11/30/18 at 08:00 Glucagon (Glucagen) 1 mg Q15M PRN IM DECREASED GLUCOSE; Start 11/30/18 at 08:00 Glucose (Glutose) 15 gm Q15M PRN BUCCAL DECREASED GLUCOSE; Start 11/30/18 at 08:00 Aspirin (Aspirin) 325 mg DAILY NGT Last administered on 12/02/18at 08:24; Admin Dose 325 MG; Start 11/30/18 at 12:00 Dextrose 1,000 ml @ 100 mls/hr Q10H IV Last administered on 12/02/18at 09:25; Admin Dose 100 MLS/HR; Start 11/30/18 at 15:30 Midazolam HCl 50 ml @ 1 mls/hr TITRATE IV Last administered on 12/02/18at 06:59; Admin Dose 2 MLS/HR; Start 12/02/18 at 07:00 Norepinephrine 16 mg/Dextrose 500 ml @ 1.88 mls/hr TITRATE IV Last administered on 12/02/18at 10:03; Admin Dose 9.383 MLS/HR; Start 12/02/18 at 09:30 Fentanyl 100 ml @ 2.5 mls/hr TITRATE IV ; Start 12/02/18 at 10:30 Miscellaneous Information (* Miscellaneous Pharmacy Order) HOLD all METFORMIN ... ONCE XX ; Start 12/02/18 at 12:00; Stop 12/04/18 at 11:59 Acetaminophen (Tylenol Tab) 650 mg Q4H PRN PO mild pain; Start 12/02/18 at 12:00 Morphine Sulfate (morphine) 2 mg Q2H PRN IV moderate to severe pain; Start 12/02/18 at 12:00 Al Hydrox/Mg Hydrox/Simethicone (Mag-Al Plus) 30 ml Q4H PRN PO GASTROINTESTINAL UPSET; Start 12/02/18 at 12:00 Ondansetron HCl (Zofran Inj) 4 mg Q4H PRN IV NAUSEA AND/OR VOMITING; Start 12/02/18 at 12:00 Sodium Chloride 1,000 ml @ 75 mls/hr [id number] IV ; Start 12/02/18 at 11:46; Stop 12/02/18 at 16:45 TWAN PATTERSON MD Dec 02, 2018 12:24
[2018-12-02] MEDS: CEFEPIME 2GM/50 ML IVPB SCH (12:56)
--- NOTE | 2018-12-02 13:18 | CARRPT ---
DATE OF PROCEDURE: 12/02/2018 TYPE OF PROCEDURES: 1. Left heart catheterization. 2. Coronary angiography. 3. Measurement of left ventricular end diastolic pressure. ATTENDING PHYSICIAN: Twan Ferro MD REFERRING PHYSICIAN: Alvin Skinner MD and Twan Nolen MD, from the hospitalist service. BRIEF HISTORY AND HOSPITAL COURSE: Mr. Sanders is a 78-year-old male with a history of hypertensi on, dyslipidemia, coronary artery disease, recent finding of a sigmoid mass, who had been discharged to outpatient followup and for treatment of sigmoid mass represented with a non-ST segment myocardial infarction and respiratory distress, developed hypotension requiring pressor support and anemia requ iring transfusions. The patient continues to have a sigmoid mass and therefore, these have further d elineation of coronary anatomy in order to decide upon a surgical candidacy. DESCRIPTION OF PROCEDURE: After informed consent was obtained, the patient was brought to the [facility] cardiac catheterization lab, where his right radial area was prepped and drape d in sterile fashion. A 2% lidocaine was infiltrated into right radial area in order to achieve adeq uate anesthesia. With modified Seldinger technique, the radial artery was cannulated and a 6-Jordanian arterial sheath was placed. A 6-Jordanian JL3.5 catheter was used to cannulate the left main coronary o stium unsuccessfully and subsequently exchanged for JL4 which was used to successfully cannulate the left main coronary ostium. With contrast injection, multiple views of left coronary arterial system were obtained. A JL4 was removed over a guidewire and a JR4 was used to cannulate the right coronary arterial ostium. With contrast injection, multiple views of right coronary arterial system were obt ained. JR4 was then additionally used to cross the aortic valve. LVEDP was measured and pullback ac ross the aortic valve to assess for gradient, which there was not and removed. Subsequently at this t timothy, the patient's sheath was removed. TR band was applied. There were no noted complications. FINDINGS: Coronary angiography: Left main is 5 mm, no significant focal stenoses. Circumflex proxi kulwinder is a 3 mm vessel, quickly splits into a circ continuation AV groove and obtuse marginal, each a pproximately 2.5 mm with no significant focal stenoses. There appears to be a very small ramus branc h, sub 2 mm with moderate diffuse disease up to 50% to 60%. The LAD proximally is a 3.5 mm vessel an d has no significant focal stenoses. The mid LAD in the mid portion, there are mild luminal irregula rities of 10% to 20% around the apex. No other significant focal stenoses. There is a mid branching diagonal 2.5 mm with no significant focal stenoses. The right coronary artery proximally is a 3.5 m m vessel in its mid portion with luminal irregularities up to 20% to 30%. It is a dominant vessel. It gives off a right-sided PDA, a 2.5 mm with the very distal portion of the PDA. Apparently, there becomes diffuse disease or possibly a cutoff with what appears to be a likely mild to moderate diffus e disease. There is a sizable posterolateral branch 3 mm with no significant focal stenoses. Measurement of left ventricular end-diastolic pressure of 21. No significant aortic stenosis by grad ient. TOTAL FLUOROSCOPY TIME: 16.5 minutes. TOTAL CONTRAST: 100 mL. IMPRESSION: 1. Mild to moderate main nonobstructive disease with the possible some moderate diffuse disease with small ramus branch and very distal portion of PDA may be the culprit for patient's [id number] myocardial infarction. 2. Mildly elevated left heart filling pressures. 3. No significant aortic stenosis by gradient. RECOMMENDATIONS: In light of procedure findings at this time, we would: 1. Maximize medical management. 2. Aggressive risk factor reduction. 3. We would continue to proceed with the patient's current management with weaning of vent, weaning of pressure support and progression with removal of sigmoid mass. Dictated By: TWAN CHARLES/NTS Conf#: [id number] DID#: [id number] CC: TWAN NOLEN MD; AJ PIERRE MD; MARILEE CHAVEZ MD;*EndCC*
[2018-12-02] MEDS ORDERED: LIDOCAINE 1% (MPF) 5 ML VIAL ONE (14:55)
--- NOTE | 2018-12-02 14:55 | CONS ---
Date/Time of Note Date/Time of Note DATE: 12/02/18 TIME: 14:18 Assessment/Plan Assessment/Plan Assessment/Plan A unfortunate 78 yo male with what appears to be locally advanced colon ca - poor performance status and multiple co-morbidities # Hypoxic and hypercapnic respiratory failure due to pulmonary edema and possib le pneumonia, - Failed BiPAP -12/02/18- intubated - continue IV antibiotics - Currently requiring pressors. - Daily weaning trials per pulmonary. # Cardiac- elevated troponin: - 12/02/18 sp left heart cardiac cath - clear coronaries. # Sepsis: As evidenced by fever and tachycardia: Secondary to pneumonia -continue broad-spectrum IV antibiotics per PMD - final respiratory and blood culture results- pending # Sigmoid mass: Status post biopsy during recent hospitalization. Final p athology for from November 20 does confirm: A-Ulcerated colon mass at 20 cm, biopsies: -Invasive moderately-differentiated adenocarcinoma with extensive u lceration associated with acute fibrinoneutrophilic exudate. B-Colon mass at 15 cm, biopsies: - Focus of intramucosal adenocarcinoma arising from tubulovillous adenoma with high grade dysplasia. - Mass is almost completely obstructive. Because the patient is too unstable for surgery, plan for palliative rectal stent Gi follows - not a surgical candidate per surgical evaluation -but again given his multiple medical issues, a palliative rectal stent may be an initial approach # Anemia Hgb 9.0 today; stable -due to colon mass -keep >7 # Atrial fibrillation with RVR -resolved now - per cardiology # Renal insufficiency: Oliguric acute on chronic renal failure - Cr 2.08 today- slightly up - Nephrology follows #Hypernatremia - per PMD # Diabetes - per PMD A total of 40 minutes of face to face time was spent speaking with the patient , of which greater than 50% was spent in counseling coordination of care and the detailed question and answer session. Patient seen in collaboration with Dr Langley Result Diagram: 12/02/18 0424 12/02/18423 Results 24hrs Laboratory Tests Test 12/01/18 14:56 12/01/18 17:27 12/01/18 20:26 12/01/18 21:09 Sodium Level 155 H 154 H Potassium Level 3.5 3.4 L Chloride Level 106 106 Carbon Dioxide 38 H 39 H Level Anion Gap 11 9 Blood Urea 71 H 65 H Nitrogen Creatinine 1.91 H 2.04 H Est Glomerular Filtrat Rate mL/min Glucose Level 122 123 Calcium Level 9.2 8.9 Bedside Glucose 113 111 Magnesium Level 2.0 Test 12/02/18 00:30 12/02/18 00:43 12/02/18 03:17 12/02/18 04:24 Lactic Acid 1.0 Level Bedside Glucose 100 Blood Gas Blood arterial Specimen Source Arterial Blood 12/02/2018 3:15: Date Drawn 46 AM Arterial Blood 7.293 *L pH (Temp corrected) Arterial Blood 85.8 *H pCO2 (Temp correct) Arterial Blood 48.5 *L pO2 (Temp corrected) Arterial Blood 40.6 *H HCO3 Arterial Blood 11.5 H Base Excess Arterial Blood 81.6 L Oxygen Saturatio n Nilson Test ACCEPTAB Arterial Blood Right Radial Gas Puncture Site Arterial 0.9 Blood Carboxyhem oglobin Arterial Blood 0.4 Methemoglobin Blood Gas A-a O2 578.7 H Differential Oxyhemoglobin 80.5 L Percent Blood Gas 37.0 Temperature Blood Gas HFNC Modality FiO2 100.0 Blood Gas J CHRISSY RN Critical Value Read Back Blood Gas UP Notified Whom Blood Gas 12/02/2018 3:28: Notified Time 00 AM White Blood 7.3 Count Red Blood Count 4.12 L Hemoglobin 9.0 L Hematocrit 35.5 L Mean Corpuscular 86.2 Volume Mean Corpuscular 21.8 L Hemoglobin Mean Corpuscular 25.4 L Hemoglobin Sonali nt Red Cell 31.4 H Distribution Width Platelet Count 263 Mean Platelet 11.0 H Volume Immature 0.400 Granulocytes % Neutrophils % 71.5 Lymphocytes % 14.0 L Monocytes % 9.8 Eosinophils % 3.7 Basophils % 0.6 Nucleated Red 0.0 Blood Cells % Immature 0.030 Granulocytes # Neutrophils # 5.2 Lymphocytes # 1.0 Monocytes # 0.7 Eosinophils # 0.3 Basophils # 0.0 Nucleated Red 0.0 Blood Cells # Prothrombin Time 17.8 H Prothrombin Time 1.4 Ratio INR 1.46 International Normalized Ratio Activated 43.1 H Partial Thrombop last Time Sodium Level 153 H Potassium Level 4.0 Chloride Level 108 Carbon Dioxide 39 H Level Anion Gap 6 Blood Urea 70 H Nitrogen Creatinine 2.08 H Est Glomerular Filtrat Rate mL/min Glucose Level 115 Calcium Level 9.1 Phosphorus Level 4.4 Magnesium Level 2.1 Total Bilirubin 0.1 L Direct Bilirubin 0.00 Indirect 0.1 Bilirubin Aspartate Amino 28 Transf (AST/SGOT ) Alanine 25 Aminotransferase (ALT/SGPT) Alkaline 58 Phosphatase Total Protein 6.3 Albumin 3.3 Globulin 3.00 Albumin/Globulin 1.10 Ratio Test 12/02/18 05:00 12/02/18 06:11 12/02/18 07:00 12/02/18 08:19 Blood Gas Blood arterial Blood arterial Specimen Source Arterial Blood 12/02/2018 5:10: 12/02/2018 7:05: Date Drawn 24 AM 36 AM Arterial Blood 7.255 *L 7.388 pH (Temp corrected) Arterial Blood 92.4 *H 64.0 H pCO2 (Temp correct) Arterial Blood 103.0 H 165.8 H pO2 (Temp corrected) Arterial Blood 40.1 *H 37.7 H HCO3 Arterial Blood 10.0 H 10.8 H Base Excess Arterial Blood 96.9 99.0 Oxygen Saturatio n Nilson Test ACCEPTAB ACCEPTAB Arterial Blood Right Radial Right Radial Gas Puncture Site Arterial 1.2 0.5 Blood Carboxyhem oglobin Arterial Blood 0.5 0.5 Methemoglobin Blood Gas A-a O2 517.6 H 483.2 H Differential Oxyhemoglobin 95.3 98.0 Percent Blood Gas 37.0 37.0 Temperature Blood Gas 26.0 24.0 Respiration Rate Blood Gas Actual 27 24 Respiration Rate Blood Gas MASK - BIPAP VENT - AC Modality FiO2 100.0 100.0 Blood Gas 20/8 IPAP/EPAP Ratio Blood Gas Lala LEO MD Critical Value Read Back Blood Gas MINI SWANSON Notified Whom Blood Gas 12/02/2018 5:23: 12/02/2018 7:23: Notified Time 34 AM 12 AM Bedside Glucose 114 102 Blood Gas Tidal 500.0 Volume Blood Gas Low 5.0 PEEP Setting Test 12/02/18 08:45 12/02/18 12:58 Urine Color LEANNE Urine Clarity CLOUDY A Urine pH 5.0 Urine Specific 1.019 [place] Urine Ketones NEGATIVE Urine Nitrite NEGATIVE Urine Bilirubin NEGATIVE Urine 1+ H Urobilinogen Urine Leukocyte 2+ H Esterase Urine > 182 H Microscopic RBC Urine 117 H Microscopic WBC Urine Squamous FEW Epithelial Cells Urine Yeast MANY A (Budding) Urine Hemoglobin 2+ H Urine Glucose NEGATIVE Urine Total 2+ H Protein Bedside Glucose 102 Consultation Date/Type/Reason Admit Date/Time Nov 23, 2018 at 22:01 Initial Consult Date 11/24/18 Type of Consult oncology Reason for Consultation Colon Cancer Requesting Provider: NAYANA GARCIA 24 HR Interval Summary Free Text/Dictation - sp intubation today - On pressors - SP right thoracentesis today- fluid sect for c/s - febrile last night - ID follows; c/s pending dw staff Subjective hx not possible: pt non-verbal Constitutional: requiring IVF, requiring O2 Exam/Review of Systems Vital Signs Vitals Vital Signs Date Temp Pulse Resp B/P (MAP) Pulse Ox O2 O2 Flow FiO2 Time Delivery Rate 12/02/18 64 21 112/56 100 Mechanical 13:00 (74) Ventilator 12/02/18 96.5 12:15 12/02/18 50 10:16 11/28/18 8.0 23:00 Intake and Output 12/01/18 12/01/18 12/02/18 1515:00 23:00 07:00 IntakeIntake Total 1635 ml 800 ml OutputOutput Total 600 ml BalanceBalance 1035 ml 800 ml Exam Constitutional: well developed, non-verbal, frail Psych: nl mood/affect Head: atraumatic Eyes: EOMI ENMT: nl external ears & nose Neck: other (ET tube intact) Respiratory: diminished breath sounds Cardiovascular: nl pulses, other (s1s2) Gastrointestinal: soft Musculoskeletal: muscle weakness Extremities: normal pulses Neurological: unresponsive Medications Medications Current Medications Ondansetron HCl (Zofran Inj) 4 mg Q6H PRN IV NAUSEA AND/OR VOMITING; Start 11/23/18 at 22:30 Acetaminophen (Tylenol Liquid) 650 mg Q6H PRN PO PAIN LEVEL 1-3 OR FEVER Last administered on 12/02/18at 02:31; Admin Dose 650 MG; Start 11/23/18 at 22:30 Acetaminophen (Tylenol Supp) 650 mg Q4H PRN NH PAIN LEVEL 1-3 OR FEVER Last administered on 12/02/18at 08:29; Admin Dose 650 MG; Start 11/23/18 at 22:30 Atorvastatin Calcium (Lipitor) 20 mg HS PO Last administered on 12/01/18at 20:18; Admin Dose 20 MG; Start 11/24/18 at 21:00 Albuterol/ Ipratropium (Duoneb) 3 ml Q4H RESP THERAPY PRN HHN SHORTNESS OF BREATH; Start 11/24/18 at 09:00 Aripiprazole (Abilify) 5 mg DAILY PO Last administered on 12/02/18 08:24; Admin Dose 5 MG; Start 11/24/18 at 09:30 Digoxin (Digoxin) 0.25 mg DAILY@1300 PO Last administered on 11/26/18 13:41; Admin Dose 0.25 MG; Start 11/24/18 at 13:00; Status Hold Escitalopram Oxalate (Lexapro) 20 mg DAILY PO Last administered on 12/02/18 08:24; Admin Dose 20 MG; Start 11/24/18 at 09:30 Loratadine (Claritin) 10 mg DAILY PO Last administered on 12/02/18 08:24; Admin Dose 10 MG; Start 11/24/18 at 10:00 Multivitamins Therapeutic (Theragran) 1 tab DAILY PO Last administered on 12/02/18 08:24; Admin Dose 1 TAB; Start 11/24/18 at 09:30 Potassium Chloride (Micro-K) 8 meq DAILY PO Last administered on 11/24/18 10:12; Admin Dose 8 MEQ; Start 11/24/18 at 10:00; Status Hold Tamsulosin HCl (Flomax) 0.4 mg HS PO Last administered on 11/30/18 20:59; Admin Dose 0.4 MG; Start 11/24/18 at 21:00 Calcium/Vitamin D (Oyster Shell/ Vit-D (500/200)) 1 tab DAILY PO Last administered on 12/02/18 08:28; Admin Dose 1 TAB; Start 11/24/18 at 09:30 Metoprolol Tartrate (Lopressor) 5 mg Q4H PRN IV HR>110 Hold SBP<100; Start 11/24/18 at 11:00 Atenolol (Tenormin) 25 mg DAILY PO Last administered on 12/01/18 09:06; Admin Dose 25 MG; Start 11/25/18 at 14:00 Diltiazem HCl (Cardizem Sr) 120 mg DAILY PO ; Start 11/25/18 at 14:00; Status Hold Cefepime HCl 50 ml @ 100 mls/hr Q24H IVPB Last administered on 12/02/18 1 2:56; Admin Dose 100 MLS/HR; Start 11/26/18 at 12:00 IV Flush (NS 10 ml) 10 ml PRN PRN IV IV PROTOCOL; Start 11/25/18 at 16:00 Hydralazine HCl (Apresoline) 25 mg Q8 PO Last administered on 12/01/18at 05:36; Admin Dose 25 MG; Start 11/26/18 at 22:00 Pantoprazole (Protonix Iv) 40 mg DAILY@06 IV Last administered on 12/02/18at 06:13; Admin Dose 40 MG; Start 11/29/18 at 06:00 Enoxaparin Sodium (Lovenox) 30 mg DAILY SC Last administered on 12/01/18at 09:07; Admin Dose 30 MG; Start 11/30/18 at 09:00 Diagnostic Test (Pha) (Accu-Chek) 1 ea 02 XX Last administered on 12/02/18at 01:28; Admin Dose 1 EA; Start 12/01/18 at 02:00 Insulin Aspart (Novolog Insulin Pen) (Adult SC Insulin - Mild Algorithm)... Q4 SC ; Start 11/30/18 at 09:00 Miscellaneous Information 1 ea NOTE XX ; Start 11/30/18 at 08:00 Glucose (Glutose) 15 gm Q15M PRN PO DECREASED GLUCOSE; Start 11/30/18 at 08:00 Glucose (Glutose) 22.5 gm Q15M PRN PO DECREASED GLUCOSE; Start 11/30/18 at 08:00 Dextrose (D50w Syringe) 25 ml Q15M PRN IV DECREASED GLUCOSE; Start 11/30/18 at 08:00 Dextrose (D50w Syringe) 50 ml Q15M PRN IV DECREASED GLUCOSE; Start 11/30/18 at 08:00 Glucagon (Glucagen) 1 mg Q15M PRN IM DECREASED GLUCOSE; Start 11/30/18 at 08:00 Glucose (Glutose) 15 gm Q15M PRN BUCCAL DECREASED GLUCOSE; Start 11/30/18 at 08:00 Aspirin (Aspirin) 325 mg DAILY NGT Last administered on 12/02/18at 08:24; Admin Dose 325 MG; Start 11/30/18 at 12:00 Dextrose 1,000 ml @ 100 mls/hr Q10H IV Last administered on 12/02/18at 09:25; Admin Dose 100 MLS/HR; Start 11/30/18 at 15:30 Midazolam HCl 50 ml @ 1 mls/hr TITRATE IV Last administered on 12/02/18at 06:59; Admin Dose 2 MLS/HR; Start 12/02/18 at 07:00 Norepinephrine 16 mg/Dextrose 500 ml @ 1.88 mls/hr TITRATE IV Last administered on 12/02/18at 10:03; Admin Dose 9.383 MLS/HR; Start 12/02/18 at 09:30 Fentanyl 100 ml @ 2.5 mls/hr TITRATE IV ; Start 12/02/18 at 10:30 Miscellaneous Information (* Miscellaneous Pharmacy Order) HOLD all METFORMIN ... ONCE XX ; Start 12/02/18 at 12:00; Stop 12/04/18 at 11:59 Acetaminophen (Tylenol Tab) 650 mg Q4H PRN PO mild pain; Start 12/02/18 at 12:00 Morphine Sulfate (morphine) 2 mg Q2H PRN IV moderate to severe pain; Start 12/02/18 at 12:00 Al Hydrox/Mg Hydrox/Simethicone (Mag-Al Plus) 30 ml Q4H PRN PO GASTROINTESTINAL UPSET; Start 12/02/18 at 12:00 Ondansetron HCl (Zofran Inj) 4 mg Q4H PRN IV NAUSEA AND/OR VOMITING; Start 12/02/18 at 12:00 DORIAN MOSS Dec 02, 2018 14:28
--- NOTE | 2018-12-02 14:58 | NUR ---
Paracentesis Dr. Ochoa used a total of 15ml of 1% lidocaine to right posterior chest two separate locations for ultrasound guided right thoracentesis, 75ml of melquiades color fluid was removed by Dr. Ochoa, fluid was sent to laboratory for analysis, patient tolerated exam RP
[2018-12-02] MEDS: FENTAnyl (DRIP) 1000 mcg/100mL 100 ML IV SCH (15:40)
--- NOTE | 2018-12-02 19:01 | NUR ---
Pt remains intubated at this time, with 50% Fi02. Continued Versed gtt (4mg/hr) and started on Fentanyl gtt (25mcg/hr). Levophed gtt titrated off at this time. D5W continues at 100mls/hr. TR band removed and site c,d,i and HEALTH CONSULTANT, previously noted hematoma remains but does not appear any larger, +2 pulses. Toracentesis done at bedside, pt tolerated well, fluids sent to lab for culture. NGT connected to LIWS with minimal bile output. Ballard remains in place with adequate output. Addendum: 12/02/18 at 1929 by QUANG BENSON RN Pts son signed consent for OR tomorrow with Dr. Fang, consents in the chart.
--- NOTE | 2018-12-02 19:10 | CONS ---
DATE OF ADMISSION: 11/23/2018 DATE OF CONSULTATION: The patient is presenting with history of anemia. Colonoscopy showed a sigmoid mass. Pathology show ed adenocarcinoma and patient was discharged. Again, patient was brought back to the hospital [facility] of the congestive heart failure and he was found to have myocardial infarction. Subsequently, federica childers, underwent a cardiac catheterization which did not show any significant disease. No stenting was d one. Regarding the sigmoid mass, according to Dr. Alec Nolen's note, he discussed this with reynaldo Min surgeon, and the surgeon felt that patient is unstable for surgery and is not a great surgical can didate. Again, upon discussion with Dr. Alec Nolen and Dr. Skinner, it was decided patient needed a palliative assistance into the sigmoid obstructing mass. Discussed with the family members including the son. He had been with this process we are going thro [facility] he agreed with the placement of a metallic sigmoid stent until the patient is stable and then he will have to undergo definitive surgical therapy. PHYSICAL EXAMINATION: GENERAL: The patient is a 78-year-old [place] gentleman who at this time is intubated. VITAL SIGNS: Temperature is afebrile, pulse is 58, blood pressure 112/56. CARDIOVASCULAR: Normal heart sounds. RESPIRATORY: Normal breath sounds. ABDOMEN: Soft abdomen. LABORATORY WORKUP: Sodium is the range of 146, 145, 140, 154, and today is actually increased to 153 . Potassium 4.0, BUN 70, creatinine 2.08. CLINICAL IMPRESSION: The patient has obstructing sigmoid carcinoma. PLAN: The patient will have an endoscopic metal stent placement into to the sigmoid stricture for pa lliative reasons. Dictated By: FRANCE PAREDES/NTS Conf#: [id number] DID#: [id number] CC: JANNET SKINNER MD; AJ PIERRE MD;*EndCC*
[2018-12-02] MEDS: TAMSULOSIN (SR) 0.4 MG CAP PO SCH (20:07)
[2018-12-02] MEDS: ATORVASTATIN 20 MG TAB PO SCH (20:10)
[2018-12-03] VITALS (87 sets, daily range): BP systolic 65–132; BP diastolic 43–100; PULSE 52–84; RESP 14–25
[2018-12-03] MEDS: Insulin NOVOLOG SS MILD Algorithm (NPO/TPN/ENTERAL FEEDS) SC SCH ×6 (01:00→20:48)
--- NOTE | 2018-12-03 01:00 | NUR ---
Phone Call to MD Call placed to Dr. Diaz regarding STAT BMP results. Ordered: Magnesium Sulfate 1g IV x1 Potassium Chloride 20 mEq IV x3 BMP & Magnesium Labs taken at 12/03/18 @ 1000
[2018-12-03] MEDS ORDERED: MAGNESIUM SULFATE 1 GM/D5W 100 ML IVPB ONE (01:30)
[2018-12-03] MEDS: ACCU-CHEK XX SCH (02:15)
[2018-12-03] MEDS: POTASSIUM CHLORIDE 100 ML IVPB SCH ×3 (03:07→07:59)
[2018-12-03] MEDS: MIDAZOLAM (DRIP) 50 mg/50 mL 50 ML IV SCH (03:19)
[2018-12-03] MEDS: PANTOPRAZOLE 40 MG INJ IV SCH (05:15)
[2018-12-03] MEDS: DEXTROSE 5% 1,000 ML IV SCH ×2 (05:26→21:23)
--- NOTE | 2018-12-03 05:48 | NUR ---
EOSS Patient presented with mild fever, a-fib with PACs. Fever treated and resolved with one dose of acetaminophen and currently afebrile. BMP with magnesium labs were done STAT due to arrhythmias. Magnesium and Potassium replaced as ordered by MD. Patient had no respiratory distress throughout shift, able to lower FiO2 to 50%. Patient still running on Versed @ 4, Fentanyl @25, and Levo currently off. Patient still bradycardic, holding at around 50s bpm. Skin care was done per protocol, turned Q2H, oral care Q2H. Patient has had 3 BM this shift and incontinent cristina care done. Urine output averaged about 30-40cc/hr with a total of 450cc throughout shift. All needs were tended to, care plans updated and performed. Will endorse care to oncoming day shift nurse.
[2018-12-03] MEDS ORDERED: LACTULOSE 30ML CUP NGT ONE (06:30)
--- NOTE | 2018-12-03 06:59 | NUR ---
PHONE CALL FROM DR. CHESTER CHRISTIE called to check on pt's status, updated status on labs, BP, drips and new orders. Orders received: Lactulose 20GM NGT x1 then clamp, stop low int suction Tap Water Enema until clear Call Dr. Fang back concerning 1000 repeat BMP/Mg labs Rental Stent placement scheduled to be done 12/03/18 @ [address] Fang
[2018-12-03] MEDS: ASPIRIN 325 MG TAB NGT SCH (09:00)
[2018-12-03] MEDS: ENOXAPARIN 30 MG/0.3 ML SYG SC SCH (09:00)
[2018-12-03] MEDS: ATENOLOL 50 MG TAB PO SCH (09:00)
--- NOTE | 2018-12-03 09:06 | CONS ---
Date/Time of Note Date/Time of Note DATE: 12/03/18 TIME: 09:04 Consult Date/Type/Reason Admit Date/Time Nov 23, 2018 at 22:01 Initial Consult Date 11/25/18 Type of Consultation: Pulm/CCM Requesting Provider: NAYANA GARCIA Patient remained stable this morning orally intubated low-dose vasopressor support. Status post cardiac catheterization with no target lesions identified. Ultrasound of the chest was performed that demonstrated only a small pleural effusion had 7-5 cc of fluid removed yesterday. Remains sedated this morning on mechanical ventilation pending colonoscopy. Objective Vital Signs Date Temp Pulse Resp B/P (MAP) Pulse Ox O2 O2 Flow FiO2 Time Delivery Rate 12/03/18 56 24 108/60 100 Mechanical 07:00 (76) Ventilator 12/03/18 50 05:26 12/03/18 98.7 04:00 Intake and Output 12/02/18 12/02/18 12/03/18 1515:00 23:00 07:00 IntakeIntake Total 1027.10 ml 911.38 ml 1202.28 ml OutputOutput Total 300 ml 330 ml 410 ml BalanceBalance 727.10 ml 581.38 ml 792.28 ml Exam GENERAL: Elderly [place]ian gentleman remains somewhat lethargic. VITAL SIGNS: per chart NECK: Supple. No JVD or lymphadenopathy. CARDIAC EXAM: S1, S2. No added sounds or murmurs. CHEST: Diminished air entry bilaterally ABDOMEN: Soft, nontender. No guarding or rebound. EXTREMITIES: No cyanosis, clubbing or edema. NEUROLOGIC: Generalized weakness. No focal deficits. Results/Medications Result Diagram: 12/03/18 0440 12/03/18 0044 Results 24 hrs Laboratory Tests Test 12/02/18 12:58 12/02/18 13:15 12/02/18 18:33 12/02/18 20:12 Bedside Glucose 102 100 86 Body Fluid Type THORACENTESIS F LUID Body Fluid 90.0 Volume Body Fluid Color RED Body Fluid BLOODY Appearance Body Fluid WBC 114 Body Fluid RBC 83847 (Auto) Body Fluid 48.3 Polynuclear WBCs (%) Body Fluid 51.7 Mononuclear Cells % Auto Body Fluid 106 Glucose Body Fluid Total 2.5 Protein Body Fluid 366 Lactate Dehydrog enase Test 12/03/18 00:44 12/03/18 01:54 12/03/18 04:13 12/03/18 04:40 Sodium Level 148 H Potassium Level 2.9 *L Chloride Level 103 Carbon Dioxide 35 H Level Anion Gap 10 Blood Urea 71 H Nitrogen Creatinine 2.44 H Est Glomerular Filtrat Rate mL/min Glucose Level 103 Calcium Level 8.6 Magnesium Level 1.9 Bedside Glucose 101 103 White Blood 6.3 Count Red Blood Count 4.07 L Hemoglobin 8.8 L Hematocrit 33.1 L Mean Corpuscular 81.3 L Volume Mean Corpuscular 21.6 L Hemoglobin Mean Corpuscular 26.6 L Hemoglobin Sonali nt Red Cell 31.9 H Distribution Width Platelet Count 259 Mean Platelet Volume Immature 0.500 H Granulocytes % Neutrophils % 72.9 Lymphocytes % 14.2 L Monocytes % 6.9 Eosinophils % 5.0 Basophils % 0.5 Nucleated Red 0.0 Blood Cells % Immature 0.030 Granulocytes # Neutrophils # 4.6 Lymphocytes # 0.9 Monocytes # 0.4 Eosinophils # 0.3 Basophils # 0.0 Nucleated Red 0.0 Blood Cells # Test 12/03/18 07:00 Blood Gas Blood arterial Specimen Source Arterial Blood 12/03/2018 7:10: Date Drawn 47 AM Arterial Blood 7.495 H pH (Temp corrected) Arterial Blood 43.2 pCO2 (Temp correct) Arterial Blood 84.8 pO2 (Temp corrected) Arterial Blood 32.6 H HCO3 Arterial Blood 8.5 H Base Excess Arterial Blood 96.5 Oxygen Saturatio n Nilson Test N/A Arterial Blood Right Brachial Gas Puncture Site Arterial 0.7 Blood Carboxyhem oglobin Arterial Blood 0.4 Methemoglobin Blood Gas A-a O2 223.1 H Differential Oxyhemoglobin 95.4 Percent Blood Gas 37.0 Temperature Blood Gas 24.0 Respiration Rate Blood Gas Actual 24 Respiration Rate Blood Gas VENT - AC Modality FiO2 50.0 Blood Gas Tidal 500.0 Volume Blood Gas Low 5.0 PEEP Setting Blood Gas TM Notified Whom Blood Gas 12/03/2018 7:19: Notified Time 22 AM Medications Current Medications Ondansetron HCl (Zofran Inj) 4 mg Q6H PRN IV NAUSEA AND/OR VOMITING; Start 11/23/18 at 22:30 Acetaminophen (Tylenol Liquid) 650 mg Q6H PRN PO PAIN LEVEL 1-3 OR FEVER Last administered on 1/10/19at 02:31; Admin Dose 650 MG; Start 11/23/18 at 22:30 Acetaminophen (Tylenol Supp) 650 mg Q4H PRN LA PAIN LEVEL 1-3 OR FEVER Last administered on 12/02/18 21:21; Admin Dose 650 MG; Start 11/23/18 at 22:30 Atorvastatin Calcium (Lipitor) 20 mg HS PO Last administered on 12/02/18 20:10; Admin Dose 20 MG; Start 11/24/18 at 21:00 Albuterol/ Ipratropium (Duoneb) 3 ml Q4H RESP THERAPY PRN HHN SHORTNESS OF BREATH; Start 11/24/18 at 09:00 Aripiprazole (Abilify) 5 mg DAILY PO Last administered on 12/02/18 08:24; Admin Dose 5 MG; Start 11/24/18 at 09:30 Digoxin (Digoxin) 0.25 mg DAILY@1300 PO Last administered on 11/26/18 13:41; Admin Dose 0.25 MG; Start 11/24/18 at 13:00; Status Hold Escitalopram Oxalate (Lexapro) 20 mg DAILY PO Last administered on 12/02/18 08:24; Admin Dose 20 MG; Start 11/24/18 at 09:30 Loratadine (Claritin) 10 mg DAILY PO Last administered on 12/02/18 08:24; Admin Dose 10 MG; Start 11/24/18 at 10:00 Multivitamins Therapeutic (Theragran) 1 tab DAILY PO Last administered on 12/02/18 08:24; Admin Dose 1 TAB; Start 11/24/18 at 09:30 Potassium Chloride (Micro-K) 8 meq DAILY PO Last administered on 11/24/18 10:12; Admin Dose 8 MEQ; Start 11/24/18 at 10:00; Status Hold Tamsulosin HCl (Flomax) 0.4 mg HS PO Last administered on 11/30/18 20:59; Admin Dose 0.4 MG; Start 11/24/18 at 21:00 Calcium/Vitamin D (Oyster Shell/ Vit-D (500/200)) 1 tab DAILY PO Last administ ered on 12/02/18 08:28; Admin Dose 1 TAB; Start 11/24/18 at 09:30 Metoprolol Tartrate (Lopressor) 5 mg Q4H PRN IV HR>110 Hold SBP<100; Start 11/24/18 at 11:00 Atenolol (Tenormin) 25 mg DAILY PO Last administered on 12/01/18at 09:06; Admin Dose 25 MG; Start 11/25/18 at 14:00 Diltiazem HCl (Cardizem Sr) 120 mg DAILY PO ; Start 11/25/18 at 14:00; Status Hold Cefepime HCl 50 ml @ 100 mls/hr Q24H IVPB Last administered on 12/02/18at 12:56; Admin Dose 100 MLS/HR; Start 11/26/18 at 12:00 IV Flush (NS 10 ml) 10 ml PRN PRN IV IV PROTOCOL; Start 11/25/18 at 16:00 Hydralazine HCl (Apresoline) 25 mg Q8 PO Last administered on 12/01/18at 05:36; Admin Dose 25 MG; Start 11/26/18 at 22:00 Pantoprazole (Protonix Iv) 40 mg DAILY@06 IV Last administered on 12/03/18at 05:15; Admin Dose 40 MG; Start 11/29/18 at 06:00 Enoxaparin Sodium (Lovenox) 30 mg DAILY SC Last administered on 12/01/18at 09:07; Admin Dose 30 MG; Start 11/30/18 at 09:00 Diagnostic Test (Pha) (Accu-Chek) 1 ea 02 XX Last administered on 12/03/18at 02:15; Admin Dose 1 EA; Start 12/01/18 at 02:00 Insulin Aspart (Novolog Insulin Pen) (Adult SC Insulin - Mild Algorithm)... Q4 SC ; Start 11/30/18 at 09:00 Miscellaneous Information 1 ea NOTE XX ; Start 11/30/18 at 08:00 Glucose (Glutose) 15 gm Q15M PRN PO DECREASED GLUCOSE; Start 11/30/18 at 08:00 Glucose (Glutose) 22.5 gm Q15M PRN PO DECREASED GLUCOSE; Start 11/30/18 at 08:00 Dextrose (D50w Syringe) 25 ml Q15M PRN IV DECREASED GLUCOSE; Start 11/30/18 at 08:00 Dextrose (D50w Syringe) 50 ml Q15M PRN IV DECREASED GLUCOSE; Start 11/30/18 at 08:00 Glucagon (Glucagen) 1 mg Q15M PRN IM DECREASED GLUCOSE; Start 11/30/18 at 08:00 Glucose (Glutose) 15 gm Q15M PRN BUCCAL DECREASED GLUCOSE; Start 11/30/18 at 08:00 Aspirin (Aspirin) 325 mg DAILY NGT Last administered on 12/02/18at 08:24; Admin Dose 325 MG; Start 11/30/18 at 12:00 Dextrose 1,000 ml @ 100 mls/hr Q10H IV Last administered on 12/03/18at 05:26; Admin Dose 100 MLS/HR; Start 11/30/18 at 15:30 Midazolam HCl 50 ml @ 1 mls/hr TITRATE IV Last administered on 12/03/18at 03:19; Admin Dose 4 MLS/HR; Start 12/02/18 at 07:00 Norepinephrine 16 mg/Dextrose 500 ml @ 1.88 mls/hr TITRATE IV Last administered on 12/02/18at 10:03; Admin Dose 9.383 MLS/HR; Start 12/02/18 at 09:30 Fentanyl 100 ml @ 2.5 mls/hr TITRATE IV Last administered on 12/02/18at 15:40; Admin Dose 2.5 MLS/HR; Start 12/02/18 at 10:30 Miscellaneous Information (* Miscellaneous Pharmacy Order) HOLD all METFORMIN ... ONCE XX ; Start 12/02/18 at 12:00; Stop 12/04/18 at 11:59 Acetaminophen (Tylenol Tab) 650 mg Q4H PRN PO mild pain; Start 12/02/18 at 12:00 Morphine Sulfate (morphine) 2 mg Q2H PRN IV moderate to severe pain; Start 12/02/18 at 12:00 Al Hydrox/Mg Hydrox/Simethicone (Mag-Al Plus) 30 ml Q4H PRN PO GASTROINTESTINAL UPSET; Start 12/02/18 at 12:00 Ondansetron HCl (Zofran Inj) 4 mg Q4H PRN IV NAUSEA AND/OR VOMITING; Start 12/02/18 at 12:00 Assessment/Plan Chief Complaint/Hosp Course IMP: 1. Acute hypoxemic/hypercapnic respiratory failure--most likely due to volume overload +/- pneumonia. Right pleural effusion. Status post thoracentesis. 2. Sigmoid mass, presumed colon cancer with recent severe anemia. Pending colonoscopy today. 3. Non-ST elevation myocardial infarction. Status post cardiac cath with no target lesions identified. 4. Atrial fibrillation with rapid ventricular response, now rate controlled 5. Worsening renal failure likely ATN. Possible nephrotoxic injury from contrast for cardiac catheterization 6. Anemia RECS: 1. Continue vent. Hold off weaning pending colonoscopy continue chest PT 2. Continue cardiac recommendations 3. Continue renal recs continue IV fluids 4. GI recommendations, colonoscopy scheduled for today. Critical care time 40 minutes JANNET BERG MD, [facility] Dec 03, 2018 09:06
[2018-12-03] MEDS: LORATADINE 10 MG TAB PO SCH (09:19)
[2018-12-03] MEDS: ARIPIPRAZOLE 5 MG TAB PO SCH (09:19)
[2018-12-03] MEDS: ESCITALOPRAM 10 MG TAB PO SCH (09:19)
[2018-12-03] MEDS: CALCIUM/VITAMIN D (500/200) TAB PO SCH (09:19)
[2018-12-03] MEDS: MULTIVITAMINS THERAPEUTIC TAB PO SCH (09:19)
--- NOTE | 2018-12-03 10:10 | NUR ---
WOUND CONSULT RE-EVALUATION FOR RIGHT INNER BUTTOCK WOUND: 78 year old male admitted with hypoxia and hypercapnic respiratory failure possible 2/2 to pneumonia and fluid overload per record. History of sigmoid mass and diabetes. Patient currently intubated. Ballard cath. Incontinent of bowel. On pressor. Max assist to turn. On low air loss surface. WBC 6.3. H&H 8.8/23.1 BUN/Cr 71/2.44. Albumin 3.3. Dietitian on case. Generalized edema. Planning for rectal stent today. Bowel prep. ASSESSMENT/RECOMMENDATIONS: - Patient admitted with Right inner gluteal region/buttock linear intact flatten blood blister. Wound measured [id number]. Unable to directly palpate bone to injury area. There was no biomedical engineering director prior to the perirectal area. Original documented as intact deep tissue pressure injury vs unknown etiology. This is not likely pressure related. Currently non-intact blood blister with visible yellow slough and purple wound edges. And incontinent associated dermatitis. Area constantly moist d/t incontinent episode. Small serous drainage. No odor. Recommended to modify treatment recommendation as follow: Cleanse with normal saline. Pat dry. Apply 3M Cavilon no-sting skin barrier to periwound skin. Apply Santyl ointment to wound bed daily. Cover with dry dressing and secure with Tegaderm. - Float heels off bed with HeelZup [place] or at least 2 pillows. - Bilateral heels and Bilateral ankles: Cover with Allevyn Heels for protection. Assess skin under dressing each shift. - Continue low air loss surface. - Reposition every 2 hours. Assessed patient with Brenda MAYER and discussed plan of care with RN. RN to obtain wound care recommendations from . [place] BSN RN CWOCN
--- NOTE | 2018-12-03 10:41 | CONS ---
Date/Time of Note Date/Time of Note DATE: 12/03/18 TIME: 10:35 Assessment/Plan Assessment/Plan Hospital Course unfortunate 78 yo with what appears to be locally advanced colon ca #nearly obstructive colon ca -he has very poor performance status and multiple co-morbidities/multiple medical complications -he is back in the ICU on BiPAP, Hypoxic and hypercapnic respiratory failure due to pulmonary edema and possible pneumonia, on abx -surgery has seen pt and feels he may not be an appropriate resection candidate -given patient's tenuous status this is understandable -path confirms colon ca -given that he appears to have localized disease, surgical resection is optimal treatment if he ever becomes stable for surgery. typically radiation has no role in localized colon ca, radiation can play a role in palliative tx of met colon if painful site of metastatic disease for example. -but again given his multiple medical issues, a palliative rectal stent may be an initial approach -I have discussed with son at bedside earlier in the week who understands oncologic tx at this time not feasible until pt stabilizes #anemia due to colon ca hgb 8.8 repeat iron studies to determine if he needs iron supplementation #CAD s/p cardiac cath, no critical obstruction #ANEMIA due to colon mass, hgb stable keep >7 Result Diagram: 12/03/18 0440 12/03/18 0044 Results 24hrs Laboratory Tests Test 12/02/18 12:58 12/02/18 13:15 12/02/18 18:33 12/02/18 20:12 Bedside Glucose 102 100 86 Body Fluid Type THORACENTESIS F LUID Body Fluid 90.0 Volume Body Fluid Color RED Body Fluid BLOODY Appearance Body Fluid WBC 114 Body Fluid RBC 53292 (Auto) Body Fluid 48.3 Polynuclear WBCs (%) Body Fluid 51.7 Mononuclear Cells % Auto Body Fluid 106 Glucose Body Fluid Total 2.5 Protein Body Fluid 366 Lactate Dehydrog enase Test 12/03/18 00:44 12/03/18 01:54 12/03/18 04:13 12/03/18 04:40 Sodium Level 148 H Potassium Level 2.9 *L Chloride Level 103 Carbon Dioxide 35 H Level Anion Gap 10 Blood Urea 71 H Nitrogen Creatinine 2.44 H Est Glomerular Filtrat Rate mL/min Glucose Level 103 Calcium Level 8.6 Magnesium Level 1.9 Bedside Glucose 101 103 White Blood 6.3 Count Red Blood Count 4.07 L Hemoglobin 8.8 L Hematocrit 33.1 L Mean Corpuscular 81.3 L Volume Mean Corpuscular 21.6 L Hemoglobin Mean Corpuscular 26.6 L Hemoglobin Sonali nt Red Cell 31.9 H Distribution Width Platelet Count 259 Mean Platelet Volume Immature 0.500 H Granulocytes % Neutrophils % 72.9 Lymphocytes % 14.2 L Monocytes % 6.9 Eosinophils % 5.0 Basophils % 0.5 Nucleated Red 0.0 Blood Cells % Immature 0.030 Granulocytes # Neutrophils # 4.6 Lymphocytes # 0.9 Monocytes # 0.4 Eosinophils # 0.3 Basophils # 0.0 Nucleated Red 0.0 Blood Cells # Test 12/03/18 07:00 12/03/18 09:33 Blood Gas Blood arterial Specimen Source Arterial Blood 12/03/2018 7:10: Date Drawn 47 AM Arterial Blood 7.495 H pH (Temp corrected) Arterial Blood 43.2 pCO2 (Temp correct) Arterial Blood 84.8 pO2 (Temp corrected) Arterial Blood 32.6 H HCO3 Arterial Blood 8.5 H Base Excess Arterial Blood 96.5 Oxygen Saturatio n Nilson Test N/A Arterial Blood Right Brachial Gas Puncture Site Arterial 0.7 Blood Carboxyhem oglobin Arterial Blood 0.4 Methemoglobin Blood Gas A-a O2 223.1 H Differential Oxyhemoglobin 95.4 Percent Blood Gas 37.0 Temperature Blood Gas 24.0 Respiration Rate Blood Gas Actual 24 Respiration Rate Blood Gas VENT - AC Modality FiO2 50.0 Blood Gas Tidal 500.0 Volume Blood Gas Low 5.0 PEEP Setting Blood Gas TM Notified Whom Blood Gas 12/03/2018 7:19: Notified Time 22 AM Bedside Glucose 92 Consultation Date/Type/Reason Admit Date/Time Nov 23, 2018 at 22:01 Initial Consult Date 11/25/18 Requesting Provider: NAYANA GARCIA Exam/Review of Systems Vital Signs Vitals Vital Signs Date Temp Pulse Resp B/P (MAP) Pulse Ox O2 O2 Flow FiO2 Time Delivery Rate 12/03/18 65 08:00 12/03/18 24 108/60 100 Mechanical 07:00 (76) Ventilator 12/03/18 50 05:26 12/03/18 98.7 04:00 Intake and Output 12/02/18 12/02/18 12/03/18 1515:00 23:00 07:00 IntakeIntake Total 1027.10 ml 911.38 ml 1202.28 ml OutputOutput Total 300 ml 330 ml 410 ml BalanceBalance 727.10 ml 581.38 ml 792.28 ml Medications Medications Current Medications Ondansetron HCl (Zofran Inj) 4 mg Q6H PRN IV NAUSEA AND/OR VOMITING; Start 11/23/18 at 22:30 Acetaminophen (Tylenol Liquid) 650 mg Q6H PRN PO PAIN LEVEL 1-3 OR FEVER Last administered on 12/02/18 02:31; Admin Dose 650 MG; Start 11/23/18 at 22:30 Acetaminophen (Tylenol Supp) 650 mg Q4H PRN PA PAIN LEVEL 1-3 OR FEVER Last ad ministered on 12/02/18 21:21; Admin Dose 650 MG; Start 11/23/18 at 22:30 Atorvastatin Calcium (Lipitor) 20 mg HS PO Last administered on 12/02/18 20:10; Admin Dose 20 MG; Start 11/24/18 at 21:00 Albuterol/ Ipratropium (Duoneb) 3 ml Q4H RESP THERAPY PRN HHN SHORTNESS OF BREATH; Start 11/24/18 at 09:00 Aripiprazole (Abilify) 5 mg DAILY PO Last administered on 12/03/18 09:19; Admin Dose 5 MG; Start 11/24/18 at 09:30 Digoxin (Digoxin) 0.25 mg DAILY@1300 PO Last administered on 11/26/18 13:41; Admin Dose 0.25 MG; Start 11/24/18 at 13:00; Status Hold Escitalopram Oxalate (Lexapro) 20 mg DAILY PO Last administered on 12/03/18 09:19; Admin Dose 20 MG; Start 11/24/18 at 09:30 Loratadine (Claritin) 10 mg DAILY PO Last administered on 12/03/18 09:19; Admin Dose 10 MG; Start 11/24/18 at 10:00 Multivitamins Therapeutic (Theragran) 1 tab DAILY PO Last administered on 12/03/18 09:19; Admin Dose 1 TAB; Start 11/24/18 at 09:30 Potassium Chloride (Micro-K) 8 meq DAILY PO Last administered on 11/24/18at 10:12; Admin Dose 8 MEQ; Start 11/24/18 at 10:00; Status Hold Tamsulosin HCl (Flomax) 0.4 mg HS PO Last administered on 11/30/18at 20:59; Admin Dose 0.4 MG; Start 11/24/18 at 21:00 Calcium/Vitamin D (Oyster Shell/ Vit-D (500/200)) 1 tab DAILY PO Last administered on 12/03/18at 09:19; Admin Dose 1 TAB; Start 11/24/18 at 09:30 Metoprolol Tartrate (Lopressor) 5 mg Q4H PRN IV HR>110 Hold SBP<100; Start 11/24/18 at 11:00 Atenolol (Tenormin) 25 mg DAILY PO Last administered on 12/01/18at 09:06; Admin Dose 25 MG; Start 11/25/18 at 14:00 Diltiazem HCl (Cardizem Sr) 120 mg DAILY PO ; Start 11/25/18 at 14:00; Status Hold Cefepime HCl 50 ml @ 100 mls/hr Q24H IVPB Last administered on 12/02/18at 12:56; Admin Dose 100 MLS/HR; Start 11/26/18 at 12:00 IV Flush (NS 10 ml) 10 ml PRN PRN IV IV PROTOCOL; Start 11/25/18 at 16:00 Hydralazine HCl (Apresoline) 25 mg Q8 PO Last administered on 12/01/18at 05:36; Admin Dose 25 MG; Start 11/26/18 at 22:00 Pantoprazole (Protonix Iv) 40 mg DAILY@06 IV Last administered on 12/03/18at 05:15; Admin Dose 40 MG; Start 11/29/18 at 06:00 Enoxaparin Sodium (Lovenox) 30 mg DAILY SC Last administered on 12/01/18at 09:07; Admin Dose 30 MG; Start 11/30/18 at 09:00 Diagnostic Test (Pha) (Accu-Chek) 1 ea 02 XX Last administered on 12/03/18at 02:15; Admin Dose 1 EA; Start 12/01/18 at 02:00 Insulin Aspart (Novolog Insulin Pen) (Adult SC Insulin - Mild Algorithm)... Q4 SC ; Start 11/30/18 at 09:00 Miscellaneous Information 1 ea NOTE XX ; Start 11/30/18 at 08:00 Glucose (Glutose) 15 gm Q15M PRN PO DECREASED GLUCOSE; Start 11/30/18 at 08:00 Glucose (Glutose) 22.5 gm Q15M PRN PO DECREASED GLUCOSE; Start 11/30/18 at 08:00 Dextrose (D50w Syringe) 25 ml Q15M PRN IV DECREASED GLUCOSE; Start 11/30/18 at 08:00 Dextrose (D50w Syringe) 50 ml Q15M PRN IV DECREASED GLUCOSE; Start 11/30/18 at 08:00 Glucagon (Glucagen) 1 mg Q15M PRN IM DECREASED GLUCOSE; Start 11/30/18 at 08:00 Glucose (Glutose) 15 gm Q15M PRN BUCCAL DECREASED GLUCOSE; Start 11/30/18 at 08:00 Aspirin (Aspirin) 325 mg DAILY NGT Last administered on 12/02/18at 08:24; Admin Dose 325 MG; Start 11/30/18 at 12:00 Dextrose 1,000 ml @ 100 mls/hr Q10H IV Last administered on 12/03/18at 05:26; Admin Dose 100 MLS/HR; Start 11/30/18 at 15:30 Midazolam HCl 50 ml @ 1 mls/hr TITRATE IV Last administered on 12/03/18at 03:19; Admin Dose 4 MLS/HR; Start 12/02/18 at 07:00 Norepinephrine 16 mg/Dextrose 500 ml @ 1.88 mls/hr TITRATE IV Last administered on 12/02/18at 10:03; Admin Dose 9.383 MLS/HR; Start 12/02/18 at 09:30 Fentanyl 100 ml @ 2.5 mls/hr TITRATE IV Last administered on 12/02/18at 15:40; Admin Dose 2.5 MLS/HR; Start 12/02/18 at 10:30 Miscellaneous Information (* Miscellaneous Pharmacy Order) HOLD all METFORMIN . .. ONCE XX ; Start 12/02/18 at 12:00; Stop 12/04/18 at 11:59 Acetaminophen (Tylenol Tab) 650 mg Q4H PRN PO mild pain; Start 12/02/18 at 12:00 Morphine Sulfate (morphine) 2 mg Q2H PRN IV moderate to severe pain; Start 12/02/18 at 12:00 Al Hydrox/Mg Hydrox/Simethicone (Mag-Al Plus) 30 ml Q4H PRN PO GASTROINTESTINAL UPSET; Start 12/02/18 at 12:00 Ondansetron HCl (Zofran Inj) 4 mg Q4H PRN IV NAUSEA AND/OR VOMITING; Start 12/02/18 at 12:00 TEO LOZOYA Dec 03, 2018 10:41
[2018-12-03] MEDS ORDERED: AMIODARONE 150MG/D5W BOLUS 100 ML ONE (11:48)
[2018-12-03] MEDS: HOLD all METFORMIN and METFORMIN CONTAINING medications for 48 hours post procedure. Chec XX SCH (12:00)
--- NOTE | 2018-12-03 12:04 | PN ---
Date/Time of Note Date/Time of Note DATE: 12/03/18 TIME: 12:03 Assessment/Plan VTE Prophylaxis Risk score (from Ns)>0 risk: 18 SCD applied (from [facility] [place]): No SCD contraindicated: other (no) Pharmacological prophylaxis: LMWH Lines/Catheters IV Catheter Type (from [facility]): PICC Line Central line still needed: Yes Urinary Cath still in place: Yes Reason Cath still needed: urinary retention Assessment/Plan Assessment/Plan 78-year-old male recently diagnosed with new colon mass, who presents with: # Hypoxic and hypercapnic respiratory failure: Appears to be due to pulmonary edema and possible pneumonia. - Failed BiPAP, intubated 12/02. -continue IV antibiotics - Currently requiring pressors. - Daily weaning trials per pulmonary. # Sepsis: As evidenced by fever and tachycardia: Secondary to pneumonia -Again, continue broad-spectrum IV antibiotics -Follow-up final respiratory and blood culture results # Cardiac- elevated troponins: - Got cardiac cath 12/02, clear coronaries. # Sigmoid mass: Status post biopsy during recent hospitalization. 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 - Mass is almost completely obstructive. Because the patient is too unstable for surgery, plan for palliative rectal stent. Dr. Fang consulted. - Per discussion with Dr. Juan on 12/01, patient is not currently a surgical candidate due to his acute illness but may get surgery if he improves. # Atrial fibrillation with RVR -resolved now -Continue to monitor, patient on beta-esther and digoxin, follow-up cardiology recommendations # Renal insufficiency: Oliguric acute on chronic renal failure - This was likely due to obstructive uropathy - Now that [place] is back in, patient is having post-obstructive diuresis and significant improvement in Cr. #Hypernatremia - Likely from postobstructive diuresis. - Cont D5W, titrate to serum Na. # Diabetes: Sugar stable, continue insulin while in-house DVT: lovenox GI: PPI Code status: Full. Family wants everything done to treat his multiorgan failure and cancer. Result Diagram: 12/03/18 0440 12/03/18 1016 Results 24hrs Laboratory Tests Test 12/02/18 12:58 12/02/18 13:15 12/02/18 18:33 12/02/18 20:12 Bedside Glucose 102 100 86 Body Fluid Type THORACENTESIS F LUID Body Fluid 90.0 Volume Body Fluid Color RED Body Fluid BLOODY Appearance Body Fluid WBC 114 Body Fluid RBC 85870 (Auto) Body Fluid 48.3 Polynuclear WBCs (%) Body Fluid 51.7 Mononuclear Cells % Auto Body Fluid 106 Glucose Body Fluid Total 2.5 Protein Body Fluid 366 Lactate Dehydrog enase Test 12/03/18 00:44 12/03/18 01:54 12/03/18 04:13 12/03/18 04:40 Sodium Level 148 H Potassium Level 2.9 *L Chloride Level 103 Carbon Dioxide 35 H Level Anion Gap 10 Blood Urea 71 H Nitrogen Creatinine 2.44 H Est Glomerular Filtrat Rate mL/min Glucose Level 103 Calcium Level 8.6 Magnesium Level 1.9 Bedside Glucose 101 103 White Blood 6.3 Count Red Blood Count 4.07 L Hemoglobin 8.8 L Hematocrit 33.1 L Mean Corpuscular 81.3 L Volume Mean Corpuscular 21.6 L Hemoglobin Mean Corpuscular 26.6 L Hemoglobin Sonali nt Red Cell 31.9 H Distribution Width Platelet Count 259 Mean Platelet Volume Immature 0.500 H Granulocytes % Neutrophils % 72.9 Lymphocytes % 14.2 L Monocytes % 6.9 Eosinophils % 5.0 Basophils % 0.5 Nucleated Red 0.0 Blood Cells % Immature 0.030 Granulocytes # Neutrophils # 4.6 Lymphocytes # 0.9 Monocytes # 0.4 Eosinophils # 0.3 Basophils # 0.0 Nucleated Red 0.0 Blood Cells # Test 12/03/18 07:00 12/03/18 09:33 12/03/18 10:16 Blood Gas Blood arterial Specimen Source Arterial Blood 12/03/2018 7:10: Date Drawn 47 AM Arterial Blood 7.495 H pH (Temp corrected) Arterial Blood 43.2 pCO2 (Temp correct) Arterial Blood 84.8 pO2 (Temp corrected) Arterial Blood 32.6 H HCO3 Arterial Blood 8.5 H Base Excess Arterial Blood 96.5 Oxygen Saturatio n Nilson Test N/A Arterial Blood Right Brachial Gas Puncture Site Arterial 0.7 Blood Carboxyhem oglobin Arterial Blood 0.4 Methemoglobin Blood Gas A-a O2 223.1 H Differential Oxyhemoglobin 95.4 Percent Blood Gas 37.0 Temperature Blood Gas 24.0 Respiration Rate Blood Gas Actual 24 Respiration Rate Blood Gas VENT - AC Modality FiO2 50.0 Blood Gas Tidal 500.0 Volume Blood Gas Low 5.0 PEEP Setting Blood Gas TM Notified Whom Blood Gas 12/03/2018 7:19: Notified Time 22 AM Bedside Glucose 92 Sodium Level 147 H Potassium Level 3.7 Chloride Level 102 Carbon Dioxide 34 H Level Anion Gap 11 Blood Urea 70 H Nitrogen Creatinine 2.38 H Est Glomerular Filtrat Rate mL/min Glucose Level 102 Calcium Level 8.9 Magnesium Level 2.0 Subjective 24 Hr Interval Summary Free Text/Dictation Patient remains intubated, sedated. Tentative plan for rectal stent today. Exam/Review of Systems Vital Signs Vitals Vital Signs Date Temp Pulse Resp B/P (MAP) Pulse Ox O2 O2 Flow FiO2 Time Delivery Rate 12/03/18 65 08:00 12/03/18 40 08:00 12/03/18 24 108/60 100 Mechanical 07:00 (76) Ventilator 12/03/18 98.7 04:00 Intake and Output 12/02/18 12/02/18 12/03/18 1515:00 23:00 07:00 IntakeIntake Total 1027.10 ml 911.38 ml 1202.28 ml OutputOutput Total 300 ml 330 ml 410 ml BalanceBalance 727.10 ml 581.38 ml 792.28 ml Exam Const: Obese man sedated, intubated, unresponsive. Head: Atraumatic, normocephalic Eyes: Normal Conjunctiva, PERRLA, EOMI, normal sclera, no nystagmus ENT: Normal External Ears, Nose and Mouth, dry mucus membranes. Neck: Supple Resp: Mechanical breath sounds throughout. No crackles or wheezes. Cardio: Regular rate and rhythm, no murmurs, S1 S2 present Abd: Soft, slight distention. Normal bowel sounds, no guarding or rebound Ext: No cyanosis, or edema Medications Medications Current Medications Ondansetron HCl (Zofran Inj) 4 mg Q6H PRN IV NAUSEA AND/OR VOMITING; Start 11/23/18 at 22:30 Acetaminophen (Tylenol Liquid) 650 mg Q6H PRN PO PAIN LEVEL 1-3 OR FEVER Last administered on 12/02/18 02:31; Admin Dose 650 MG; Start 11/23/18 at 22:30 Acetaminophen (Tylenol Supp) 650 mg Q4H PRN [place] PAIN LEVEL 1-3 OR FEVER Last administered on 12/02/18 21:21; Admin Dose 650 MG; Start 11/23/18 at 22:30 Atorvastatin Calcium (Lipitor) 20 mg HS PO Last administered on 12/02/18 20:10; Admin Dose 20 MG; Start 11/24/18 at 21:00 Albuterol/ Ipratropium (Duoneb) 3 ml Q4H RESP THERAPY PRN HHN SHORTNESS OF BREATH; Start 11/24/18 at 09:00 Aripiprazole (Abilify) 5 mg DAILY PO Last administered on 12/03/18 09:19; Admin Dose 5 MG; Start 11/24/18 at 09:30 Digoxin (Digoxin) 0.25 mg DAILY@1300 PO Last administered on 11/26/18 13:41; Admin Dose 0.25 MG; Start 11/24/18 at 13:00; Status Hold Escitalopram Oxalate (Lexapro) 20 mg DAILY PO Last administered on 12/03/18 09:19; Admin Dose 20 MG; Start 11/24/18 at 09:30 Loratadine (Claritin) 10 mg DAILY PO Last administered on 12/03/18 09:19; Admin Dose 10 MG; Start 11/24/18 at 10:00 Multivitamins Therapeutic (Theragran) 1 tab DAILY PO Last administered on 12/03/18 09:19; Admin Dose 1 TAB; Start 11/24/18 at 09:30 Potassium Chloride (Micro-K) 8 meq DAILY PO Last administered on 11/24/18 10:12; Admin Dose 8 MEQ; Start 11/24/18 at 10:00; Status Hold Tamsulosin HCl (Flomax) 0.4 mg HS PO Last administered on 11/30/18 20:59; Admin Dose 0.4 MG; Start 11/24/18 at 21:00 Calcium/Vitamin D (Oyster Shell/ Vit-D (500/200)) 1 tab DAILY PO Last administered on 12/03/18 09:19; Admin Dose 1 TAB; Start 11/24/18 at 09:30 Metoprolol Tartrate (Lopressor) 5 mg Q4H PRN IV HR>110 Hold SBP<100; Start 11/24/18 at 11:00 Atenolol (Tenormin) 25 mg DAILY PO Last administered on 12/01/18at 09:06; Admin Dose 25 MG; Start 11/25/18 at 14:00 Diltiazem HCl (Cardizem Sr) 120 mg DAILY PO ; Start 11/25/18 at 14:00; Status Hold Cefepime HCl 50 ml @ 100 mls/hr Q24H IVPB Last administered on 12/02/18at 12:56; Admin Dose 100 MLS/HR; Start 11/26/18 at 12:00 IV Flush (NS 10 ml) 10 ml PRN PRN IV IV PROTOCOL; Start 11/25/18 at 16:00 Hydralazine HCl (Apresoline) 25 mg Q8 PO Last administered on 12/01/18at 05:36; Admin Dose 25 MG; Start 11/26/18 at 22:00 Pantoprazole (Protonix Iv) 40 mg DAILY@06 IV Last administered on 12/03/18at 05:15; Admin Dose 40 MG; Start 11/29/18 at 06:00 Enoxaparin Sodium (Lovenox) 30 mg DAILY SC Last administered on 12/01/18at 09:07; Admin Dose 30 MG; Start 11/30/18 at 09:00 Diagnostic Test (Pha) (Accu-Chek) 1 ea 02 XX Last administered on 12/03/18at 02:15; Admin Dose 1 EA; Start 12/01/18 at 02:00 Insulin Aspart (Novolog Insulin Pen) (Adult SC Insulin - Mild Algorithm)... Q4 SC ; Start 11/30/18 at 09:00 Miscellaneous Information 1 ea NOTE XX ; Start 11/30/18 at 08:00 Glucose (Glutose) 15 gm Q15M PRN PO DECREASED GLUCOSE; Start 11/30/18 at 08:00 Glucose (Glutose) 22.5 gm Q15M PRN PO DECREASED GLUCOSE; Start 11/30/18 at 08:00 Dextrose (D50w Syringe) 25 ml Q15M PRN IV DECREASED GLUCOSE; Start 11/30/18 at 08:00 Dextrose (D50w Syringe) 50 ml Q15M PRN IV DECREASED GLUCOSE; Start 11/30/18 at 08:00 Glucagon (Glucagen) 1 mg Q15M PRN IM DECREASED GLUCOSE; Start 11/30/18 at 08:00 Glucose (Glutose) 15 gm Q15M PRN BUCCAL DECREASED GLUCOSE; Start 11/30/18 at 08:00 Aspirin (Aspirin) 325 mg DAILY NGT Last administered on 12/02/18at 08:24; Admin Dose 325 MG; Start 11/30/18 at 12:00 Dextrose 1,000 ml @ 100 mls/hr Q10H IV Last administered on 12/03/18at 05:26; Admin Dose 100 MLS/HR; Start 11/30/18 at 15:30 Midazolam HCl 50 ml @ 1 mls/hr TITRATE IV Last administered on 12/03/18at 03:19; Admin Dose 4 MLS/HR; Start 12/02/18 at 07:00 Norepinephrine 16 mg/Dextrose 500 ml @ 1.88 mls/hr TITRATE IV Last administered on 12/02/18at 10:03; Admin Dose 9.383 MLS/HR; Start 12/02/18 at 09:30 Fentanyl 100 ml @ 2.5 mls/hr TITRATE IV Last administered on 12/02/18at 15:40; Admin Dose 2.5 MLS/HR; Start 12/02/18 at 10:30 Miscellaneous Information (* Miscellaneous Pharmacy Order) HOLD all METFORMIN ... ONCE XX ; Start 12/02/18 at 12:00; Stop 12/04/18 at 11:59 Acetaminophen (Tylenol Tab) 650 mg Q4H PRN PO mild pain; Start 12/02/18 at 12:00 Morphine Sulfate (morphine) 2 mg Q2H PRN IV moderate to severe pain; Start 12/02/18 at 12:00 Al Hydrox/Mg Hydrox/Simethicone (Mag-Al Plus) 30 ml Q4H PRN PO GASTROINTESTINAL UPSET; Start 12/02/18 at 12:00 Ondansetron HCl (Zofran Inj) 4 mg Q4H PRN IV NAUSEA AND/OR VOMITING; Start 12/02/18 at 12:00 TWAN PATTERSON MD Dec 03, 2018 12:04
--- NOTE | 2018-12-03 12:31 | NUR ---
NUTRITION CONSULT: S: ORALLY INTUBATED, SEDATED, UPPER/LOWER EXTREMITIES, NGT IN PLACE, O: NPO 6TH DAY R/T MEDICAL PROCEDURE NA+147, BUN/S.CREAT 70/2.38, POC GLUCOSE <140, NO INSULIN IV D5W 100 ML/HR URINE OUTPUT 60 - 80 ML/HR. A: DECREASED NUTRITION INTAKE R/T MEDICAL PROCEDURE. SEEN BY WOUND CONSULT FOR SKIN BREAKDOWN SCHEDULED FOR RECTAL STENT PLACEMENT TODAY P: NGT FEEDING MAY BE CONSIDERED IF NOT CONTRAINDICATED POST RECTAL STENT PLACEMENT. SUGGEST HIGH PROTEIN ISOTONIC FORMULA REPLETE START AT 20 ML/HR INCREASE BY 10 ML Q 6 HOURS TO GOAL OF 60 ML/HR TO PROVIDE 1560 JOSEPH/ 99.8 GM PROT/1300 ML FREE WATER. WATER FLUSHES 30 ML Q 8 HOURS OR PER MD. IVF OF D5W MAY BE ADJUSTED.
[2018-12-03] MEDS: CEFEPIME 2GM/50 ML IVPB SCH (12:39)
--- NOTE | 2018-12-03 13:11 | PREAC ---
Date/Time of Note Date/Time of Note DATE: 12/03/18 TIME: 13:06 Anesthesia Eval and Record Evaluation Time Pre-Procedure Interview DATE: 12/03/18 TIME: 13:06 Age 78 Sex male NPO: 8 hrs Preoperative diagnosis Sigmoid Cancer Planned procedure Colon stent placement Past Medical History Past Medical History: Includes Cardio: HTN, Dyslipidemia, CAD, Arrythmia, CHF, Other (history of Afib) Endo: Diabetes Pulm: Other (intubatred with respiratory failure) Renal: CKD Heme: Anemia, Coagulation disorder Surgery & Anesthesia Issues No known issue Meds Anticoagulation: No Beta Vivian within 24 hr: No Reason Beta Vivian not given: Pt. not on B-Vivian Active Scripts Pantoprazole (Protonix) 40 Mg Tabec, 40 MG PO BID, #60 TAB 1 Refill Prov:FELIBERTONAYANA Vang 11/22/18 Reported Medications Calcium Citrate/Vitamin D (Citracal-Vitamin D 200 MG-250) 1 Each Tablet, 1 EACH PO BID, TAB 11/19/18 Ibuprofen* (Ibuprofen*) 600 Mg Tablet, 600 MG PO Q6H PRN for PAIN LEVEL 1-5, TAB 11/19/18 Hydralazine Hcl* (Hydralazine Hcl*) 50 Mg Tablet, 50 MG PO Q6H, #60 TAB 11/19/18 Metformin* (Glucophage*) 500 Mg Tab, 500 MG PO WITH BREAKFAST, #30 TAB 11/19/18 Multivitamins* (Theragran*) 1 Tab Tab, 1 TAB PO DAILY, TAB 11/19/18 Aripiprazole* (Abilify*) 5 Mg Tab, 5 MG PO DAILY, #30 TAB 11/19/18 Diltiazem Hcl* (Cardizem SR*) 120 Mg Cap.sr.12h, 120 MG PO Q12, CAP 11/19/18 Pioglitazone Hcl* (Pioglitazone Hcl*) 30 Mg Tablet, 30 MG PO DAILY, TAB 11/19/18 Escitalopram Oxalate* (Escitalopram Oxalate*) 20 Mg Tablet, 20 MG PO DAILY, #30 TAB 11/19/18 Benazepril Hcl* (Benazepril Hcl*) 20 Mg Tablet, 20 MG PO DAILY, #30 TAB 11/19/18 Tamsulosin Hcl* (Tamsulosin Hcl*) 0.4 Mg Cap.er.24h, 0.4 MG PO HS, CAP 11/19/18 Aspirin Ec (Aspir 81) 81 Mg Tablet.dr, 81 MG PO DAILY, #30 TAB 11/19/18 Loratadine* (Loratadine*) 10 Mg Tablet, 10 MG PO DAILY, #30 TAB 11/19/18 Potassium Chloride* (Potassium Chloride*) 8 Meq Capsule.er, 8 MEQ PO DAILY, CAP 11/19/18 Furosemide* (Furosemide*) 80 Mg Tablet, 80 MG PO DAILY, #30 TAB 11/19/18 Atenolol* (Atenolol*) 50 Mg Tablet, 50 MG PO DAILY, #30 TAB 11/19/18 Digoxin* (Lanoxin*) 0.25 Mg Tablet, 0.25 MG PO DAILY, TAB 11/19/18 Current Medications Ondansetron HCl (Zofran Inj) 4 mg Q6H PRN IV NAUSEA AND/OR VOMITING; Start 11/23/18 at 22:30 Acetaminophen (Tylenol Liquid) 650 mg Q6H PRN PO PAIN LEVEL 1-3 OR FEVER Last administered on 12/02/18at 02:31; Admin Dose 650 MG; Start 11/23/18 at 22:30 Acetaminophen (Tylenol Supp) 650 mg Q4H PRN [place] PAIN LEVEL 1-3 OR FEVER Last administered on 12/02/18at 21:21; Admin Dose 650 MG; Start 11/23/18 at 22:30 Atorvastatin Calcium (Lipitor) 20 mg HS PO Last administered on 12/02/18at 20:10; Admin Dose 20 MG; Start 11/24/18 at 21:00 Albuterol/ Ipratropium (Duoneb) 3 ml Q4H RESP THERAPY PRN HHN SHORTNESS OF B REATH; Start 11/24/18 at 09:00 Aripiprazole (Abilify) 5 mg DAILY PO Last administered on 12/03/18at 09:19; Admin Dose 5 MG; Start 11/24/18 at 09:30 Digoxin (Digoxin) 0.25 mg DAILY@1300 PO Last administered on 11/26/18at 13:41; Admin Dose 0.25 MG; Start 11/24/18 at 13:00; Status Hold Escitalopram Oxalate (Lexapro) 20 mg DAILY PO Last administered on 12/03/18at 09:19; Admin Dose 20 MG; Start 11/24/18 at 09:30 Loratadine (Claritin) 10 mg DAILY PO Last administered on 12/03/18at 09:19; Admin Dose 10 MG; Start 11/24/18 at 10:00 Multivitamins Therapeutic (Theragran) 1 tab DAILY PO Last administered on at 09:19; Admin Dose 1 TAB; Start 11/24/18 at 09:30 Potassium Chloride (Micro-K) 8 meq DAILY PO Last administered on 11/24/18at 10:12; Admin Dose 8 MEQ; Start 11/24/18 at 10:00; Status Hold Tamsulosin HCl (Flomax) 0.4 mg HS PO Last administered on 11/30/18 20:59; Admin Dose 0.4 MG; Start 11/24/18 at 21:00 Calcium/Vitamin D (Oyster Shell/ Vit-D (500/200)) 1 tab DAILY PO Last administered on 12/03/18at 09:19; Admin Dose 1 TAB; Start 11/24/18 at 09:30 Metoprolol Tartrate (Lopressor) 5 mg Q4H PRN IV HR>110 Hold SBP<100; Start 11/24/18 at 11:00 Atenolol (Tenormin) 25 mg DAILY PO Last administered on 12/01/18at 09:06; Admin Dose 25 MG; Start 11/25/18 at 14:00 Diltiazem HCl (Cardizem Sr) 120 mg DAILY PO ; Start 11/25/18 at 14:00; Status Hold Cefepime HCl 50 ml @ 100 mls/hr Q24H IVPB Last administered on 12/03/18at 12:39; Admin Dose 100 MLS/HR; Start 11/26/18 at 12:00 IV Flush (NS 10 ml) 10 ml PRN PRN IV IV PROTOCOL; Start 11/25/18 at 16:00 Hydralazine HCl (Apresoline) 25 mg Q8 PO Last administered on 12/01/18at 05:36; Admin Dose 25 MG; Start 11/26/18 at 22:00 Pantoprazole (Protonix Iv) 40 mg DAILY@06 IV Last administered on 12/03/18at 05:15; Admin Dose 40 MG; Start 11/29/18 at 06:00 Enoxaparin Sodium (Lovenox) 30 mg DAILY SC Last administered on 12/01/18at 09:07; Admin Dose 30 MG; Start 11/30/18 at 09:00 Diagnostic Test (Pha) (Accu-Chek) 1 ea 02 XX Last administered on 12/03/18at 02:15; Admin Dose 1 EA; Start 12/01/18 at 02:00 Insulin Aspart (Novolog Insulin Pen) (Adult SC Insulin - Mild Algorithm)... Q4 SC ; Start 11/30/18 at 09:00 Miscellaneous Information 1 ea NOTE XX ; Start 11/30/18 at 08:00 Glucose (Glutose) 15 gm Q15M PRN PO DECREASED GLUCOSE; Start 11/30/18 at 08:00 Glucose (Glutose) 22.5 gm Q15M PRN PO DECREASED GLUCOSE; Start 11/30/18 at 08:00 Dextrose (D50w Syringe) 25 ml Q15M PRN IV DECREASED GLUCOSE; Start 11/30/18 at 08:00 Dextrose (D50w Syringe) 50 ml Q15M PRN IV DECREASED GLUCOSE; Start 11/30/18 at 08:00 Glucagon (Glucagen) 1 mg Q15M PRN IM DECREASED GLUCOSE; Start 11/30/18 at 08:00 Glucose (Glutose) 15 gm Q15M PRN BUCCAL DECREASED GLUCOSE; Start 11/30/18 at 08: 00 Aspirin (Aspirin) 325 mg DAILY NGT Last administered on 12/02/18at 08:24; Admin Dose 325 MG; Start 11/30/18 at 12:00 Dextrose 1,000 ml @ 100 mls/hr Q10H IV Last administered on 12/03/18at 05:26; Admin Dose 100 MLS/HR; Start 11/30/18 at 15:30 Midazolam HCl 50 ml @ 1 mls/hr TITRATE IV Last administered on 12/03/18at 03:19; Admin Dose 4 MLS/HR; Start 12/02/18 at 07:00 Norepinephrine 16 mg/Dextrose 500 ml @ 1.88 mls/hr TITRATE IV Last administered on 12/02/18at 10:03; Admin Dose 9.383 MLS/HR; Start 12/02/18 at 09:30 Fentanyl 100 ml @ 2.5 mls/hr TITRATE IV Last administered on 12/02/18at 15:40; Admin Dose 2.5 MLS/HR; Start 12/02/18 at 10:30 Miscellaneous Information (* Miscellaneous Pharmacy Order) HOLD all METFORMIN ... ONCE XX ; Start 12/02/18 at 12:00; Stop 12/04/18 at 11:59 Acetaminophen (Tylenol Tab) 650 mg Q4H PRN PO mild pain; Start 12/02/18 at 12:00 Morphine Sulfate (morphine) 2 mg Q2H PRN IV moderate to severe pain; Start 12/02/18 at 12:00 Al Hydrox/Mg Hydrox/Simethicone (Mag-Al Plus) 30 ml Q4H PRN PO GASTROINTESTINAL UPSET; Start 12/02/18 at 12:00 Ondansetron HCl (Zofran Inj) 4 mg Q4H PRN IV NAUSEA AND/OR VOMITING; Start 12/02/18 at 12:00 Meds reviewed: Yes Allergies Coded Allergies: No Known Allergy (Unverified , 11/23/18) Allergies Reviewed: Yes Labs/Studies Labs Reviewed: Reviewed by anesthesiologist Result Diagram: 12/03/18 0440 12/03/18 1016 Laboratory Tests 12/03/18 04:40 12/03/18 10:16 test: N/A Studies: ECG (Right BBB, Left ant fascicular block), CXR (Right Pleural effusion, cardiomegally, and Atherosclerosic aorta) Pre-procedure Exam Last vitals Vital Signs Date Temp Pulse Resp B/P (MAP) Pulse Ox O2 O2 Flow FiO2 Time Delivery Rate 12/03/18 57 21 113/51 100 12:15 (71) 12/03/18 98.9 Mechanical 12:00 Ventilator 12/03/18 40 08:00 Airway: Adequate mouth opening, Adequate thyromental dist Mallampati: Mallampati II Teeth: Normal Lung: Abnormal (respriratory failure on ventilatiotor with ETT) Heart: Normal ASA Physical Status ASA physical status: 4 Emergency: None Planned Anesthetic General/MAC: ETT Planned Pain Management Parenteral pain med Pre-operative Attestations Prior to commencing anesthesia and surgery, the patient was re-evaluated, there was verification of: *The patient's identity *The results of appropriate recent lab work and preoperative vital signs *The above evaluation not changing prior to induction *Anesthetic plan, risk benefits, alternative and complications discussed with patient/family; questions answered; patient/family understands, accepts and wishes to proceed. JOHAN MURILLO MD Dec 03, 2018 13:11
[2018-12-03] MEDS ORDERED: ROCURONIUM 50 MG INJ ONE (13:29)
[2018-12-03] MEDS ORDERED: LABETALOL HCL 20MG INJ IV PRN (13:30)
[2018-12-03] MEDS ORDERED: FENTAnyl 50 MCG/ML VIAL IV PRN (13:30)
[2018-12-03] MEDS ORDERED: ONDANSETRON 4 MG INJ IV PRN (13:30)
[2018-12-03] MEDS ORDERED: hydrALAzine 20 MG INJ IV PRN (13:30)
[2018-12-03] MEDS ORDERED: morphine (1 MG/ML) 10ML SYRINGE IV PRN (13:30)
[2018-12-03] MEDS ORDERED: EPHEDrine SULFATE 50 MG/5 ML SYG IV PRN (13:30)
[2018-12-03] MEDS ORDERED: PHENYLephrine (100 MCG/ML) 10ML SYG ONE ×2 (13:48→14:14)
[2018-12-03] MEDS ORDERED: PHENYLephrine 10 MG INJ ONE (13:48)
--- NOTE | 2018-12-03 13:56 | CONS ---
Date/Time of Note Date/Time of Note DATE: 12/03/18 TIME: 13:55 Assessment/Plan Assessment/Plan Assessment/Plan 1. Oliguric acute on chronic renal failure due to Sepsis and Hemodynamics + obstructive uropathy 2. atrial fibrillation with RVR 3. acute hypoxemic and hypercapnic resp failure due to PNA - on BIPAP 4. Sepsis 5. Positive troponin 6. BPH on flomax 7. Colon CA Plan: BUN/Cr 70/2.38,,, Na 147- , U/o 960 cc,, continue current IV bumex, Monitor electrolyes and replace as needed S/p LHC which showed moderate Nonobstructive CAD - medical management Plan for Colonoscopy with stent placement by GI today - Discussed with son about in details- they want to keep pt full code and want t o do HD if needed - currently no acute indication for HD at this time will follow up Result Diagram: 12/03/18 0440 12/03/18 1016 Results 24hrs Laboratory Tests Test 12/02/18 18:33 12/02/18 20:12 12/03/18 00:44 12/03/18 01:54 Bedside Glucose 100 86 101 Sodium Level 148 H Potassium Level 2.9 *L Chloride Level 103 Carbon Dioxide 35 H Level Anion Gap 10 Blood Urea 71 H Nitrogen Creatinine 2.44 H Est Glomerular Filtrat Rate mL/min Glucose Level 103 Calcium Level 8.6 Magnesium Level 1.9 Test 12/03/18 04:13 12/03/18 04:40 12/03/18 07:00 12/03/18 09:33 Bedside Glucose 103 92 White Blood Count 6.3 Red Blood Count 4.07 L Hemoglobin 8.8 L Hematocrit 33.1 L Mean Corpuscular 81.3 L Volume Mean Corpuscular 21.6 L Hemoglobin Mean Corpuscular 26.6 L Hemoglobin Concen t Red Cell 31.9 H Distribution Width Platelet Count 259 Mean Platelet Volume Immature 0.500 H Granulocytes % Neutrophils % 72.9 Lymphocytes % 14.2 L Monocytes % 6.9 Eosinophils % 5.0 Basophils % 0.5 Nucleated Red 0.0 Blood Cells % Immature 0.030 Granulocytes # Neutrophils # 4.6 Lymphocytes # 0.9 Monocytes # 0.4 Eosinophils # 0.3 Basophils # 0.0 Nucleated Red 0.0 Blood Cells # Blood Gas Blood arterial Specimen Source Arterial Blood 12/03/2018 7:10:4 Date Drawn 7 AM Arterial Blood pH 7.495 H (Temp corrected) Arterial Blood 43.2 pCO2 (Temp correct) Arterial Blood 84.8 pO2 (Temp corrected) Arterial Blood 32.6 H HCO3 Arterial Blood 8.5 H Base Excess Arterial Blood 96.5 Oxygen Saturation Nilson Test N/A Arterial Blood Right Brachial Gas Puncture Site Arterial 0.7 Blood Carboxyhemo globin Arterial Blood 0.4 Methemoglobin Blood Gas A-a O2 223.1 H Differential Oxyhemoglobin 95.4 Percent Blood Gas 37.0 Temperature Blood Gas 24.0 Respiration Rate Blood Gas Actual 24 Respiration Rate Blood Gas VENT - AC Modality FiO2 50.0 Blood Gas Tidal 500.0 Volume Blood Gas Low 5.0 PEEP Setting Blood Gas TM Notified Whom Blood Gas 12/03/2018 7:19:2 Notified Time 2 AM Test 12/03/18 10:16 12/03/18 12:38 Sodium Level 147 H Potassium Level 3.7 Chloride Level 102 Carbon Dioxide 34 H Level Anion Gap 11 Blood Urea 70 H Nitrogen Creatinine 2.38 H Est Glomerular Filtrat Rate mL/min Glucose Level 102 Calcium Level 8.9 Magnesium Level 2.0 Bedside Glucose 91 Consultation Date/Type/Reason Admit Date/Time Nov 23, 2018 at 22:01 Initial Consult Date 11/24/18 Type of Consult NEPHROLOGY Requesting Provider: NAYANA GARCIA 24 HR Interval Summary Free Text/Dictation s/p LHC which showed mild to moderate Non obstructive CAD- plan for colonoscopy with stent placement Exam/Review of Systems Vital Signs Vitals Vital Signs Date Temp Pulse Resp B/P (MAP) Pulse Ox O2 O2 Flow FiO2 Time Delivery Rate 12/03/18 57 21 113/51 100 12:15 (71) 12/03/18 98.9 Mechanical 12:00 Ventilator 12/03/18 40 08:00 Intake and Output 12/02/18 12/02/18 12/03/18 1515:00 23:00 07:00 IntakeIntake Total 1027.10 ml 911.38 ml 1202.28 ml OutputOutput Total 300 ml 330 ml 410 ml BalanceBalance 727.10 ml 581.38 ml 792.28 ml Exam Constitutional: moderate distress, confused disoriented on BIPAP Respiratory: Bilateral coarse BS+, basilar crackles Cardiovascular: regular rate and rhythm, nl pulses Gastrointestinal: soft, non-tender Musculoskeletal: nl extremities to inspection, muscle weakness, swelling Neurological: confused, lethargic Medications Medications Current Medications Ondansetron HCl (Zofran Inj) 4 mg Q6H PRN IV NAUSEA AND/OR VOMITING; Start 11/23/18 at 22:30 Acetaminophen (Tylenol Liquid) 650 mg Q6H PRN PO PAIN LEVEL 1-3 OR FEVER Last administered on 12/02/18 02:31; Admin Dose 650 MG; Start 11/23/18 at 22:30 Acetaminophen (Tylenol Supp) 650 mg Q4H PRN [place] PAIN LEVEL 1-3 OR FEVER Last administered on 12/02/18 21:21; Admin Dose 650 MG; Start 11/23/18 at 22:30 Atorvastatin Calcium (Lipitor) 20 mg HS PO Last administered on 12/02/18 20: 10; Admin Dose 20 MG; Start 11/24/18 at 21:00 Albuterol/ Ipratropium (Duoneb) 3 ml Q4H RESP THERAPY PRN HHN SHORTNESS OF BREATH; Start 11/24/18 at 09:00 Aripiprazole (Abilify) 5 mg DAILY PO Last administered on 12/03/18 09:19; Admin Dose 5 MG; Start 11/24/18 at 09:30 Digoxin (Digoxin) 0.25 mg DAILY@1300 PO Last administered on 11/26/18 13:41; Admin Dose 0.25 MG; Start 11/24/18 at 13:00; Status Hold Escitalopram Oxalate (Lexapro) 20 mg DAILY PO Last administered on 12/03/18 09:19; Admin Dose 20 MG; Start 11/24/18 at 09:30 Loratadine (Claritin) 10 mg DAILY PO Last administered on 12/03/18 09:19; Admin Dose 10 MG; Start 11/24/18 at 10:00 Multivitamins Therapeutic (Theragran) 1 tab DAILY PO Last administered on 12/03/18 09:19; Admin Dose 1 TAB; Start 11/24/18 at 09:30 Potassium Chloride (Micro-K) 8 meq DAILY PO Last administered on 11/24/18at 10:12; Admin Dose 8 MEQ; Start 11/24/18 at 10:00; Status Hold Tamsulosin HCl (Flomax) 0.4 mg HS PO Last administered on 11/30/18at 20:59; Admin Dose 0.4 MG; Start 11/24/18 at 21:00 Calcium/Vitamin D (Oyster Shell/ Vit-D (500/200)) 1 tab DAILY PO Last administered on 12/03/18at 09:19; Admin Dose 1 TAB; Start 11/24/18 at 09:30 Metoprolol Tartrate (Lopressor) 5 mg Q4H PRN IV HR>110 Hold SBP<100; Start 11/24/18 at 11:00 Atenolol (Tenormin) 25 mg DAILY PO Last administered on 12/01/18at 09:06; Admin Dose 25 MG; Start 11/25/18 at 14:00 Diltiazem HCl (Cardizem Sr) 120 mg DAILY PO ; Start 11/25/18 at 14:00; Status Hold Cefepime HCl 50 ml @ 100 mls/hr Q24H IVPB Last administered on 12/03/18at 12:39; Admin Dose 100 MLS/HR; Start 11/26/18 at 12:00 IV Flush (NS 10 ml) 10 ml PRN PRN IV IV PROTOCOL; Start 11/25/18 at 16:00 Hydralazine HCl (Apresoline) 25 mg Q8 PO Last administered on 12/01/18at 05:36; Admin Dose 25 MG; Start 11/26/18 at 22:00 Pantoprazole (Protonix Iv) 40 mg DAILY@06 IV Last administered on 12/03/18at 05:15; Admin Dose 40 MG; Start 11/29/18 at 06:00 Enoxaparin Sodium (Lovenox) 30 mg DAILY SC Last administered on 12/01/18at 09:07; Admin Dose 30 MG; Start 11/30/18 at 09:00 Diagnostic Test (Pha) (Accu-Chek) 1 ea 02 XX Last administered on 12/03/18at 02:15; Admin Dose 1 EA; Start 12/01/18 at 02:00 Insulin Aspart (Novolog Insulin Pen) (Adult SC Insulin - Mild Algorithm)... Q4 SC ; Start 11/30/18 at 09:00 Miscellaneous Information 1 ea NOTE XX ; Start 11/30/18 at 08:00 Glucose (Glutose) 15 gm Q15M PRN PO DECREASED GLUCOSE; Start 11/30/18 at 08:00 Glucose (Glutose) 22.5 gm Q15M PRN PO DECREASED GLUCOSE; Start 11/30/18 at 08:00 Dextrose (D50w Syringe) 25 ml Q15M PRN IV DECREASED GLUCOSE; Start 11/30/18 at 08:00 Dextrose (D50w Syringe) 50 ml Q15M PRN IV DECREASED GLUCOSE; Start 11/30/18 at 08:00 Glucagon (Glucagen) 1 mg Q15M PRN IM DECREASED GLUCOSE; Start 11/30/18 at 08:00 Glucose (Glutose) 15 gm Q15M PRN BUCCAL DECREASED GLUCOSE; Start 11/30/18 at 08:00 Aspirin (Aspirin) 325 mg DAILY NGT Last administered on 12/02/18at 08:24; Admin Dose 325 MG; Start 11/30/18 at 12:00 Dextrose 1,000 ml @ 100 mls/hr Q10H IV Last administered on 12/03/18at 05:26; Admin Dose 100 MLS/HR; Start 11/30/18 at 15:30 Midazolam HCl 50 ml @ 1 mls/hr TITRATE IV Last administered on 12/03/18at 03:19; Admin Dose 4 MLS/HR; Start 12/02/18 at 07:00 Norepinephrine 16 mg/Dextrose 500 ml @ 1.88 mls/hr TITRATE IV Last administered on 12/02/18at 10:03; Admin Dose 9.383 MLS/HR; Start 12/02/18 at 09:30 Fentanyl 100 ml @ 2.5 mls/hr TITRATE IV Last administered on 12/02/18at 15:40; Admin Dose 2.5 MLS/HR; Start 12/02/18 at 10:30 Miscellaneous Information (* Miscellaneous Pharmacy Order) HOLD all METFORMIN ... ONCE XX ; Start 12/02/18 at 12:00; Stop 12/04/18 at 11:59 Acetaminophen (Tylenol Tab) 650 mg Q4H PRN PO mild pain; Start 12/02/18 at 12:00 Morphine Sulfate (morphine) 2 mg Q2H PRN IV moderate to severe pain; Start 12/02/18 at 12:00 Al Hydrox/Mg Hydrox/Simethicone (Mag-Al Plus) 30 ml Q4H PRN PO GASTROINTESTINAL UPSET; Start 12/02/18 at 12:00 Ondansetron HCl (Zofran Inj) 4 mg Q4H PRN IV NAUSEA AND/OR VOMITING; Start 12/02/18 at 12:00 Morphine Sulfate (morphine (REC)) 2 mg PACU ORDER PRN IV MILD PAIN LEVEL 1-3; Start 12/03/18 at 13:30; Stop 12/03/18 at 17:30 Fentanyl (Sublimaze) 25 mcg PACU ORDER PRN IV MILD PAIN LEVEL 1-3; Start 12/03/18 at 13:30; Stop 12/03/18 at 17:30 Ondansetron HCl (Zofran Inj) 4 mg PACU ORDER PRN IV NAUSEA AND/OR VOMITING; Start 12/03/18 at 13:30; Stop 12/03/18 at 17:30 Labetalol HCl (Labetalol) 5 mg PACU ORDER PRN IV ELEVATED BLOOD PRESSURE; Start 12/03/18 at 13:30; Stop 12/03/18 at 17:30 Hydralazine HCl (Apresoline) 5 mg PACU ORDER PRN IV ELEVATED BLOOD PRESSURE; Start 12/03/18 at 13:30; Stop 12/03/18 at 17:30 Ephedrine Sulfate 5 mg PACU ORDER PRN IV BLOOD PRESSURE SUPPORT; Start 12/03/18 at 13:30; Stop 12/03/18 at 17:30 Collagenase (Santyl) 1 applic DAILY TOP ; Start 12/03/18 at 14:00 RENAN HERNANDEZ MD Dec 03, 2018 13:55
--- NOTE | 2018-12-03 14:55 | OPR ---
Date/Time of Note Date/Time of Note DATE: 12/03/18 TIME: 14:52 Operative Report Preoperative Diagnosis sigmoid cancer Postoperative Diagnosis same Operation/Procedure Performed colonoscopy stent placement Surgeon see signature line Money Market Clerk none Anesthesia Type: general Anesthesiologist: JOHAN MURILLO MD Estimated Blood Loss: none Transfusion none Specimen none Grafts/Implants none Tubes/Drains none Complications none Pt Condition Post Procedure: stable Indications sigmoid cancer Procedure Description colonoscopy done wall [metal stent[] inserted through sigmoid stricture FRANCE BRIGGS MD Dec 03, 2018 14:55
--- NOTE | 2018-12-03 14:56 | PAC ---
Date/Time of Note Date/Time of Note DATE: 12/03/18 TIME: 14:55 Post-Anesthesia Notes Post-Anesthesia Note Last documented vital signs Vital Signs Date Temp Pulse Resp B/P (MAP) Pulse Ox O2 O2 Flow FiO2 Time Delivery Rate 12/03/18 98.9 57 21 113/51 100 intubated 15:00 (71) 12/03/18 98.9 Mechanical 12:00 Ventilator 12/03/18 40 08:00 Activity: WNL Respiratory function: WNL Cardiovascular function: WNL Mental status: Baseline Pain reasonably controlled: Yes Hydration appropriate: Yes Nausea/Vomiting absent: Yes JOHAN MURILLO MD Dec 03, 2018 14:56
--- NOTE | 2018-12-03 15:27 | CONS ---
Date/Time of Note Date/Time of Note DATE: 12/03/18 TIME: 15:22 Assessment/Plan Assessment/Plan Assessment/Plan 1. Non-ST elevation myocardial infarction, currently down trending cardiac enzymes likely a type 2 demand infarct in the setting of fevers, hypercarbic respiratory failure.-downtrended cardiac enzymes. NO cp. Echo this admit 11/24 with NL EF 55%. Now s/p LHC 12/02 with no sig major epicardial obstructive cad. LVEDP 21 2. Abnormal electrocardiogram. 3. Right bundle branch block. 4. Atrial fibrillation-now in SR 5.CHF-diastolic acute on chronic 6. Resp failure s/p intubation 7. Hypotension on levophed 8. renal insuff 9. Anemia Recc: -ICU -Continue asa/statin -Wean pressors as tolerated -Continue broad spectrum abx's and f/u cx data -wean vent as possible Result Diagram: 12/03/18 0440 12/03/18 1016 Results 24hrs Laboratory Tests Test 12/02/18 18:33 12/02/18 20:12 12/03/18 00:44 12/03/18 01:54 Bedside Glucose 100 86 101 Sodium Level 148 H Potassium Level 2.9 *L Chloride Level 103 Carbon Dioxide 35 H Level Anion Gap 10 Blood Urea 71 H Nitrogen Creatinine 2.44 H Est Glomerular Filtrat Rate mL/min Glucose Level 103 Calcium Level 8.6 Magnesium Level 1.9 Test 12/03/18 04:13 12/03/18 04:40 12/03/18 07:00 12/03/18 09:33 Bedside Glucose 103 92 White Blood Count 6.3 Red Blood Count 4.07 L Hemoglobin 8.8 L Hematocrit 33.1 L Mean Corpuscular 81.3 L Volume Mean Corpuscular 21.6 L Hemoglobin Mean Corpuscular 26.6 L Hemoglobin Concen t Red Cell 31.9 H Distribution Width Platelet Count 259 Mean Platelet Volume Immature 0.500 H Granulocytes % Neutrophils % 72.9 Lymphocytes % 14.2 L Monocytes % 6.9 Eosinophils % 5.0 Basophils % 0.5 Nucleated Red 0.0 Blood Cells % Immature 0.030 Granulocytes # Neutrophils # 4.6 Lymphocytes # 0.9 Monocytes # 0.4 Eosinophils # 0.3 Basophils # 0.0 Nucleated Red 0.0 Blood Cells # Blood Gas Blood arterial Specimen Source Arterial Blood 12/03/2018 7:10:4 Date Drawn 7 AM Arterial Blood pH 7.495 H (Temp corrected) Arterial Blood 43.2 pCO2 (Temp correct) Arterial Blood 84.8 pO2 (Temp corrected) Arterial Blood 32.6 H HCO3 Arterial Blood 8.5 H Base Excess Arterial Blood 96.5 Oxygen Saturation Nilson Test N/A Arterial Blood Right Brachial Gas Puncture Site Arterial 0.7 Blood Carboxyhemo globin Arterial Blood 0.4 Methemoglobin Blood Gas A-a O2 223.1 H Differential Oxyhemoglobin 95.4 Percent Blood Gas 37.0 Temperature Blood Gas 24.0 Respiration Rate Blood Gas Actual 24 Respiration Rate Blood Gas VENT - AC Modality FiO2 50.0 Blood Gas Tidal 500.0 Volume Blood Gas Low 5.0 PEEP Setting Blood Gas TM Notified Whom Blood Gas 12/03/2018 7:19:2 Notified Time 2 AM Test 12/03/18 10:16 12/03/18 12:38 Sodium Level 147 H Potassium Level 3.7 Chloride Level 102 Carbon Dioxide 34 H Level Anion Gap 11 Blood Urea 70 H Nitrogen Creatinine 2.38 H Est Glomerular Filtrat Rate mL/min Glucose Level 102 Calcium Level 8.9 Magnesium Level 2.0 Bedside Glucose 91 Consultation Date/Type/Reason Admit Date/Time Nov 23, 2018 at 22:01 Initial Consult Date 11/25/18 Requesting Provider: NAYANA GARCIA 24 HR Interval Summary Free Text/Dictation ROS: Not available as pt is non verbal and intubated and sedated Exam/Review of Systems Vital Signs Vitals Vital Signs Date Temp Pulse Resp B/P (MAP) Pulse Ox O2 O2 Flow FiO2 Time Delivery Rate 12/03/18 57 21 113/51 100 12:15 (71) 12/03/18 98.9 Mechanical 12:00 Ventilator 12/03/18 40 08:00 Intake and Output 12/02/18 12/02/18 12/03/18 1515:00 23:00 07:00 IntakeIntake Total 1027.10 ml 911.38 ml 1202.28 ml OutputOutput Total 300 ml 330 ml 410 ml BalanceBalance 727.10 ml 581.38 ml 792.28 ml Exam Intubated. General: WN/WD HEENT: Unicetric/atraumatic/ no assymetry NECK: JVD not elevated, no thyromegaly, carotids revealed normal upstrokes Lymph: no lymphadenopathy HEART: regular with no S3, I/ systolic murmur at apex LUNGS: clear ABD: soft, NT, ND, +BS, no organomegaly Neuro: no deficit SKIN: no leisons EXT: no edema Medications Medications Current Medications Ondansetron HCl (Zofran Inj) 4 mg Q6H PRN IV NAUSEA AND/OR VOMITING; Start 11/23/18 at 22:30 Acetaminophen (Tylenol Liquid) 650 mg Q6H PRN PO PAIN LEVEL 1-3 OR FEVER Last administered on 12/02/18 02:31; Admin Dose 650 MG; Start 11/23/18 at 22:30 Acetaminophen (Tylenol Supp) 650 mg Q4H PRN [place] PAIN LEVEL 1-3 OR FEVER Last administered on 12/02/18 21:21; Admin Dose 650 MG; Start 11/23/18 at 22:30 Atorvastatin Calcium (Lipitor) 20 mg HS PO Last administered on 12/02/18 20:10; Admin Dose 20 MG; Start 11/24/18 at 21:00 Albuterol/ Ipratropium (Duoneb) 3 ml Q4H RESP THERAPY PRN HHN SHORTNESS OF ABDOULAYE ATH; Start 11/24/18 at 09:00 Aripiprazole (Abilify) 5 mg DAILY PO Last administered on 12/03/18 09:19; Admin Dose 5 MG; Start 11/24/18 at 09:30 Digoxin (Digoxin) 0.25 mg DAILY@1300 PO Last administered on 11/26/18 13:41; Admin Dose 0.25 MG; Start 11/24/18 at 13:00; Status Hold Escitalopram Oxalate (Lexapro) 20 mg DAILY PO Last administered on 12/03/18 09:19; Admin Dose 20 MG; Start 11/24/18 at 09:30 Loratadine (Claritin) 10 mg DAILY PO Last administered on 12/03/18 09:19; Admin Dose 10 MG; Start 11/24/18 at 10:00 Multivitamins Therapeutic (Theragran) 1 tab DAILY PO Last administered on 11/23 09:19; Admin Dose 1 TAB; Start 11/24/18 at 09:30 Potassium Chloride (Micro-K) 8 meq DAILY PO Last administered on 1/2/19at 10:12; Admin Dose 8 MEQ; Start 11/24/18 at 10:00; Status Hold Tamsulosin HCl (Flomax) 0.4 mg HS PO Last administered on 11/30/18at 20:59; Admin Dose 0.4 MG; Start 11/24/18 at 21:00 Calcium/Vitamin D (Oyster Shell/ Vit-D (500/200)) 1 tab DAILY PO Last administered on 12/03/18 09:19; Admin Dose 1 TAB; Start 11/24/18 at 09:30 Metoprolol Tartrate (Lopressor) 5 mg Q4H PRN IV HR>110 Hold SBP<100; Start 11/24/18 at 11:00 Atenolol (Tenormin) 25 mg DAILY PO Last administered on 12/01/18at 09:06; Admin Dose 25 MG; Start 11/25/18 at 14:00 Diltiazem HCl (Cardizem Sr) 120 mg DAILY PO ; Start 11/25/18 at 14:00; Status Hold Cefepime HCl 50 ml @ 100 mls/hr Q24H IVPB Last administered on 12/03/18at 12:39; Admin Dose 100 MLS/HR; Start 11/26/18 at 12:00 IV Flush (NS 10 ml) 10 ml PRN PRN IV IV PROTOCOL; Start 11/25/18 at 16:00 Hydralazine HCl (Apresoline) 25 mg Q8 PO Last administered on 12/01/18at 05:36; Admin Dose 25 MG; Start 11/26/18 at 22:00 Pantoprazole (Protonix Iv) 40 mg DAILY@06 IV Last administered on 12/03/18at 05:15; Admin Dose 40 MG; Start 11/29/18 at 06:00 Enoxaparin Sodium (Lovenox) 30 mg DAILY SC Last administered on 12/01/18 09:07; Admin Dose 30 MG; Start 11/30/18 at 09:00 Diagnostic Test (Pha) (Accu-Chek) 1 ea 02 XX Last administered on 12/03/18at 02:15; Admin Dose 1 EA; Start 12/01/18 at 02:00 Insulin Aspart (Novolog Insulin Pen) (Adult SC Insulin - Mild Algorithm)... Q4 SC ; Start 11/30/18 at 09:00 Miscellaneous Information 1 ea NOTE XX ; Start 11/30/18 at 08:00 Glucose (Glutose) 15 gm Q15M PRN PO DECREASED GLUCOSE; Start 11/30/18 at 08:00 Glucose (Glutose) 22.5 gm Q15M PRN PO DECREASED GLUCOSE; Start 11/30/18 at 08:00 Dextrose (D50w Syringe) 25 ml Q15M PRN IV DECREASED GLUCOSE; Start 11/30/18 at 08:00 Dextrose (D50w Syringe) 50 ml Q15M PRN IV DECREASED GLUCOSE; Start 11/30/18 at 08:00 Glucagon (Glucagen) 1 mg Q15M PRN IM DECREASED GLUCOSE; Start 11/30/18 at 08:00 Glucose (Glutose) 15 gm Q15M PRN BUCCAL DECREASED GLUCOSE; Start 11/30/18 at 08:00 Aspirin (Aspirin) 325 mg DAILY NGT Last administered on 12/02/18at 08:24; Admin Dose 325 MG; Start 11/30/18 at 12:00 Dextrose 1,000 ml @ 100 mls/hr Q10H IV Last administered on 12/03/18at 05:26; Admin Dose 100 MLS/HR; Start 11/30/18 at 15:30 Midazolam HCl 50 ml @ 1 mls/hr TITRATE IV Last administered on 12/03/18at 03:19; Admin Dose 4 MLS/HR; Start 12/02/18 at 07:00 Norepinephrine 16 mg/Dextrose 500 ml @ 1.88 mls/hr TITRATE IV Last administered on 12/02/18at 10:03; Admin Dose 9.383 MLS/HR; Start 12/02/18 at 09:30 Fentanyl 100 ml @ 2.5 mls/hr TITRATE IV Last administered on 12/02/18at 15:40; Admin Dose 2.5 MLS/HR; Start 12/02/18 at 10:30 Miscellaneous Information (* Miscellaneous Pharmacy Order) HOLD all METFORMIN ... ONCE XX ; Start 12/02/18 at 12:00; Stop 12/04/18 at 11:59 Acetaminophen (Tylenol Tab) 650 mg Q4H PRN PO mild pain; Start 12/02/18 at 12:00 Morphine Sulfate (morphine) 2 mg Q2H PRN IV moderate to severe pain; Start 12/02/18 at 12:00 Al Hydrox/Mg Hydrox/Simethicone (Mag-Al Plus) 30 ml Q4H PRN PO GASTROINTESTINAL UPSET; Start 12/02/18 at 12:00 Ondansetron HCl (Zofran Inj) 4 mg Q4H PRN IV NAUSEA AND/OR VOMITING; Start 12/02/18 at 12:00 Morphine Sulfate (morphine (REC)) 2 mg PACU ORDER PRN IV MILD PAIN LEVEL 1-3; Start 12/03/18 at 13:30; Stop 12/03/18 at 17:30 Fentanyl (Sublimaze) 25 mcg PACU ORDER PRN IV MILD PAIN LEVEL 1-3; Start 12/03/18 at 13:30; Stop 12/03/18 at 17:30 Ondansetron HCl (Zofran Inj) 4 mg PACU ORDER PRN IV NAUSEA AND/OR VOMITING; Start 12/03/18 at 13:30; Stop 12/03/18 at 17:30 Labetalol HCl (Labetalol) 5 mg PACU ORDER PRN IV ELEVATED BLOOD PRESSURE; Start 12/03/18 at 13:30; Stop 12/03/18 at 17:30 Hydralazine HCl (Apresoline) 5 mg PACU ORDER PRN IV ELEVATED BLOOD PRESSURE; Start 12/03/18 at 13:30; Stop 12/03/18 at 17:30 Ephedrine Sulfate 5 mg PACU ORDER PRN IV BLOOD PRESSURE SUPPORT; Start 12/03/18 at 13:30; Stop 12/03/18 at 17:30 Collagenase (Santyl) 1 applic DAILY TOP ; Start 12/03/18 at 14:00 YOSVANY HARRIS MD Dec 03, 2018 15:27
[2018-12-03] MEDS: COLLAGENASE 5 GM (UD JAR) TOP SCH (15:30)
--- NOTE | 2018-12-03 16:39 | OPPN ---
Date/Time of Note Date/Time of Note DATE: 12/03/18 TIME: 16:[address] under Ultrasound guide, Right IJ, the placement was confirmed with Chest Xray, small apical pneumothorax was noted after the line placement which will be observed no need for chest tube. family of the patient were notified. JOHAN MURILLO MD Dec 03, 2018 16:39
--- NOTE | 2018-12-03 16:59 | NUR ---
Pt. returned from GI suite after procedure. Upon arrival no IV infusions were going d/t the accidental removed of PICC line while in OR. Dr. Adan Slaughter placed a R IJ CVL at bedside. CXR completed and new R sided pneumothorax was noted per Radiology. RN notified Dr. Nolen and Dr. Skinner. Dr. Skinner stated a sp02 of 92% or greater is acceptable and requested a CXR for the am be ordered as well as Dr. Slaughter coming to bedside to speak with pts son Ang regarding the pneumothorax. Dr. Slaughter agreed to come speak to the family as soon as he was finished in the GI Suite. Will continue to monitor respiratory status. IV infusions remain off except for D5W 100 ml/hr. Patient hemodynamically stable. Dressing changed according to wound care recommendations. Patient continues to have freq loose mucoid bm's, attempting to keep area as clean and dry as possible continues to be difficult. Plans to start TF's in the am at Dr. Fang's request.
--- NOTE | 2018-12-03 19:15 | NUR ---
REPORT RECEIVED TO OUTGOING RN. CARE ASSUMED. ASSESSMENT DONE. OFF SEDATION BUT PT. REMAINS LETHARGIC. ORALLY INTUBATED. VENT SETTING NOTED.. . > 955SON AT BEDSIDE, UPDATES GIVEN AND VERBALIZED UNDERSTANDINGPLAN OF CARE DISCUSSED. CONTINUE MECHANICAL VENTILATION, MEDICATIONS, COMFORT, HYGIENE ETC. SON VERBALIZED UNDERSTANDING.2100 GLUCOMETER CHECKED DONE, NO COVERAGED NEEEDED PER SLIDING SCALE.
[2018-12-03] MEDS: ATORVASTATIN 20 MG TAB PO SCH (20:48)
[2018-12-03] MEDS: TAMSULOSIN (SR) 0.4 MG CAP PO SCH (20:48)
[2018-12-04] VITALS (102 sets, daily range): BP systolic 82–120; BP diastolic 42–83; PULSE 68–90; RESP 15–30
[2018-12-04] MEDS: Insulin NOVOLOG SS MILD Algorithm (NPO/TPN/ENTERAL FEEDS) SC SCH ×6 (01:00→21:00)
[2018-12-04] MEDS: DEXTROSE 5% 1,000 ML IV SCH (01:25)
[2018-12-04] MEDS: ACCU-CHEK XX SCH (01:39)
--- NOTE | 2018-12-04 01:50 | RADRPT ---
Vent Rate: 74 bpm RR Interval: 0 msec VT Interval: 178 msec QRS Duration: 112 msec QT Interval: 394 msec QTC Interval: 437 msec P-R-T [place]: 59 - -71 - 0 degrees Normal sinus rhythm Right bundle branch block Left anterior fascicular block Bifascicular block Marked ST abnormality, possible anterior subendocardial injury Abnormal ECG Electronically Signed By: Huang Briscoe [id number]
[2018-12-04] MEDS: PANTOPRAZOLE 40 MG INJ IV SCH (06:21)
--- NOTE | 2018-12-04 07:08 | NUR ---
REPORT GIVEN TO ONCOMING RN. IN STABLE, CRITICAL CONDITION.
[2018-12-04] MEDS: ATENOLOL 50 MG TAB PO SCH (09:00)
[2018-12-04] MEDS ORDERED: MAGNESIUM SULFATE 2 GM/50 ML 50 ML IVPB ONE (09:30)
--- NOTE | 2018-12-04 09:32 | CONS ---
Date/Time of Note Date/Time of Note DATE: 12/04/18 TIME: 09:28 Assessment/Plan Assessment/Plan Assessment/Plan Chest x-ray showing cardiomegaly with mild bilateral pulmonary edema. Ventilator setting; AC of 24, tidal volume 500, PEEP of 5, 40% FiO2. The patient is currently on Levophed at 1 dhruv per minute. Off sedation since yesterday evening. Assessment recommendations; 1 patient admitted with abdominal pain and distention as well as shortness of breath due to pulmonary edema requiring intubation. 2. Status post cardiac catheterization with no target lesions identified. 3. Sigmoid mass, possibly malignant. Status post sigmoidoscopy yesterday with placement of sigmoid stent. 4. Likely chronic renal insufficiency. 5. BPH. 6. Anemia. 7. History of hypertension. 8. Persistent mild hypotension. 9. Encephalopathy, likely exacerbated by renal insufficiency and combined with sedative use. Continue to hold sedation. Administer Lasix 40 mg IV every 12 hours. Obtain follow-up chest x-ray in 24 hours. Decrease assist control rate to 16. Patient currently is too lethargic to undergo CPAP trial. Will attempt again at 24 hours. I did have a detailed discussion with the patient's son at bedside and answered all his questions. 35 minutes of critical care time was spent evaluating the patient. Result Diagram: 12/04/18 0400 12/04/18 0400 Results 24hrs Laboratory Tests Test 12/03/18 09:33 12/03/18 10:16 12/03/18 12:38 12/03/18 17:15 Bedside Glucose 92 91 102 Sodium Level 147 H Potassium Level 3.7 Chloride Level 102 Carbon Dioxide Level 34 H Anion Gap 11 Blood Urea Nitrogen 70 H Creatinine 2.38 H Est Glomerular Filtrat Rate mL/min Glucose Level 102 Calcium Level 8.9 Magnesium Level 2.0 Test 12/03/18 20:45 12/04/18 01:05 12/04/18 01:37 12/04/18 04:00 Bedside Glucose 115 118 113 White Blood Count 7.0 Red Blood Count 3.79 L Hemoglobin 8.3 L Hematocrit 30.2 L Mean Corpuscular 79.7 L Volume Mean Corpuscular 21.9 L Hemoglobin Mean Corpuscular 27.5 L Hemoglobin Concent Red Cell 31.9 H Distribution Width Platelet Count 227 Mean Platelet Volume Immature 0.600 H Granulocytes % Neutrophils % 74.3 Lymphocytes % 15.5 Monocytes % 6.3 Eosinophils % 3.0 Basophils % 0.3 Nucleated Red Blood 0.0 Cells % Immature 0.040 H Granulocytes # Neutrophils # 5.2 Lymphocytes # 1.1 Monocytes # 0.4 Eosinophils # 0.2 Basophils # 0.0 Nucleated Red Blood 0.0 Cells # Sodium Level 144 Potassium Level 3.5 Chloride Level 101 Carbon Dioxide Level 33 H Anion Gap 10 Blood Urea Nitrogen 67 H Creatinine 2.07 H Est Glomerular Filtrat Rate mL/min Glucose Level 103 Calcium Level 8.4 Phosphorus Level 3.1 Magnesium Level 1.8 Total Bilirubin 0.3 Direct Bilirubin 0.00 Indirect Bilirubin 0.3 Aspartate Amino 24 Transf (AST/SGOT) Alanine 27 Aminotransferase (AL T/SGPT) Alkaline Phosphatase 48 Total Protein 5.4 L Albumin 2.6 L Globulin 2.80 Albumin/Globulin 0.92 Ratio Test 12/04/18 04:52 12/04/18 08:10 Bedside Glucose 112 121 Consultation Date/Type/Reason Admit Date/Time Nov 23, 2018 at 22:01 Initial Consult Date 11/24/18 Type of Consult Pulmonary/critical care Requesting Provider: NAYANA GARCIA 24 HR Interval Summary Free Text/Dictation Patient's condition remains critical. Underwent sigmoidoscopy yesterday with placement of sigmoid stent. General exam; elderly male, orally intubated, patient still not much responsive. Currently no distress. Exam/Review of Systems Vital Signs Vitals Vital Signs Date Temp Pulse Resp B/P (MAP) Pulse Ox O2 O2 Flow FiO2 Time Delivery Rate 12/04/18 76 24 97/46 (63) 95 08:30 12/04/18 Mechanical 08:00 Ventilator 12/04/18 40 05:40 12/04/18 98.9 04:00 Intake and Output 12/03/18 12/03/18 12/04/18 1414:59 22:59 06:59 IntakeIntake Total 913.70 ml 915.64 ml 814.82 ml OutputOutput Total 780 ml 915 ml 950 ml BalanceBalance 133.70 ml 0.64 ml -135.18 ml Exam H EENT exam; supple neck, positive JVD. No lymphadenopathy. Midline trachea. No thyromegaly. Orally intubated. Patient is edentulous. No neck masses. Chest exam; diminished but clear breath sounds. S1-S2 audible, no murmurs. Regular rhythm. Abdomen exam; soft, no organomegaly. Bowel sounds audible. Extremity exam; no peripheral edema or clubbing. HE[employer] WORK[employer] exam; is currently unresponsive. Medications Medications Current Medications Acetaminophen (Tylenol Liquid) 650 mg Q6H PRN PO PAIN LEVEL 1-3 OR FEVER Last administered on 12/02/18 02:31; Admin Dose 650 MG; Start 11/23/18 at 22:30 Acetaminophen (Tylenol Supp) 650 mg Q4H PRN [place] PAIN LEVEL 1-3 OR FEVER Last administered on 12/02/18 21:21; Admin Dose 650 MG; Start 11/23/18 at 22:30 Atorvastatin Calcium (Lipitor) 20 mg HS PO Last administered on 12/03/18 20:48; Admin Dose 20 MG; Start 11/24/18 at 21:00 Albuterol/ Ipratropium (Duoneb) 3 ml Q4H RESP THERAPY PRN HHN SHORTNESS OF BREATH; Start 11/24/18 at 09:00 Aripiprazole (Abilify) 5 mg DAILY PO Last administered on 12/03/18 09:19; Admin Dose 5 MG; Start 11/24/18 at 09:30 Digoxin (Digoxin) 0.25 mg DAILY@1300 PO Last administered on 11/26/18 13:41; Admin Dose 0.25 MG; Start 11/24/18 at 13:00; Status Hold Escitalopram Oxalate (Lexapro) 20 mg DAILY PO Last administered on 12/03/18 09:19; Admin Dose 20 MG; Start 11/24/18 at 09:30 Loratadine (Claritin) 10 mg DAILY PO Last administered on 12/03/18 09:19; Admin Dose 10 MG; Start 11/24/18 at 10:00 Multivitamins Therapeutic (Theragran) 1 tab DAILY PO Last administered on 12/03/18 09:19; Admin Dose 1 TAB; Start 11/24/18 at 09:30 Potassium Chloride (Micro-K) 8 meq DAILY PO Last administered on 11/24/18 10:12; Admin Dose 8 MEQ; Start 11/24/18 at 10:00; Status Hold Tamsulosin HCl (Flomax) 0.4 mg HS PO Last administered on 1/11/19at 20:48; Admin Dose 0.4 MG; Start 11/24/18 at 21:00 Calcium/Vitamin D (Oyster Shell/ Vit-D (500/200)) 1 tab DAILY PO Last administered on 12/03/18at 09:19; Admin Dose 1 TAB; Start 11/24/18 at 09:30 Metoprolol Tartrate (Lopressor) 5 mg Q4H PRN IV HR>110 Hold SBP<100; Start 11/24/18 at 11:00 Atenolol (Tenormin) 25 mg DAILY PO Last administered on 12/01/18at 09:06; Admin Dose 25 MG; Start 11/25/18 at 14:00 Diltiazem HCl (Cardizem Sr) 120 mg DAILY PO ; Start 11/25/18 at 14:00; Status Hold Cefepime HCl 50 ml @ 100 mls/hr Q24H IVPB Last administered on 12/03/18at 12:39; Admin Dose 100 MLS/HR; Start 11/26/18 at 12:00 IV Flush (NS 10 ml) 10 ml PRN PRN IV IV PROTOCOL; Start 11/25/18 at 16:00 Hydralazine HCl (Apresoline) 25 mg Q8 PO Last administered on 12/01/18at 05:36; Admin Dose 25 MG; Start 11/26/18 at 22:00 Pantoprazole (Protonix Iv) 40 mg DAILY@06 IV Last administered on 12/04/18at 06:21; Admin Dose 40 MG; Start 11/29/18 at 06:00 Enoxaparin Sodium (Lovenox) 30 mg DAILY SC Last administered on 12/01/18at 09:07; Admin Dose 30 MG; Start 11/30/18 at 09:00 Diagnostic Test (Pha) (Accu-Chek) 1 ea 02 XX Last administered on 12/03/18at 02:15; Admin Dose 1 EA; Start 12/01/18 at 02:00 Insulin Aspart (Novolog Insulin Pen) (Adult SC Insulin - Mild Algorithm)... Q4 SC ; Start 11/30/18 at 09:00 Miscellaneous Information 1 ea NOTE XX ; Start 11/30/18 at 08:00 Glucose (Glutose) 15 gm Q15M PRN PO DECREASED GLUCOSE; Start 11/30/18 at 08:00 Glucose (Glutose) 22.5 gm Q15M PRN PO DECREASED GLUCOSE; Start 11/30/18 at 08:00 Dextrose (D50w Syringe) 25 ml Q15M PRN IV DECREASED GLUCOSE; Start 11/30/18 at 08:00 Dextrose (D50w Syringe) 50 ml Q15M PRN IV DECREASED GLUCOSE; Start 11/30/18 at 08:00 Glucagon (Glucagen) 1 mg Q15M PRN IM DECREASED GLUCOSE; Start 11/30/18 at 08:00 Glucose (Glutose) 15 gm Q15M PRN BUCCAL DECREASED GLUCOSE; Start 11/30/18 at 08:00 Aspirin (Aspirin) 325 mg DAILY NGT Last administered on 12/02/18at 08:24; Admin Dose 325 MG; Start 11/30/18 at 12:00 Dextrose 1,000 ml @ 100 mls/hr Q10H IV Last administered on 12/04/18at 01:25; Admin Dose 100 MLS/HR; Start 11/30/18 at 15:30; Status Hold Midazolam HCl 50 ml @ 1 mls/hr TITRATE IV Last administered on 12/03/18at 03:19; Admin Dose 4 MLS/HR; Start 12/02/18 at 07:00 Norepinephrine 16 mg/Dextrose 500 ml @ 1.88 mls/hr TITRATE IV Last administered on 12/02/18at 10:03; Admin Dose 9.383 MLS/HR; Start 12/02/18 at 09:30 Fentanyl 100 ml @ 2.5 mls/hr TITRATE IV Last administered on 12/02/18at 15:40; Admin Dose 2.5 MLS/HR; Start 12/02/18 at 10:30 Miscellaneous Information (* Miscellaneous Pharmacy Order) HOLD all METFORMIN ... ONCE XX ; Start 12/02/18 at 12:00; Stop 12/04/18 at 11:59 Acetaminophen (Tylenol Tab) 650 mg Q4H PRN PO mild pain; Start 12/02/18 at 12:00 Morphine Sulfate (morphine) 2 mg Q2H PRN IV moderate to severe pain; Start 12/02/18 at 12:00 Al Hydrox/Mg Hydrox/Simethicone (Mag-Al Plus) 30 ml Q4H PRN PO GASTROINTESTINAL UPSET; Start 12/02/18 at 12:00 Ondansetron HCl (Zofran Inj) 4 mg Q4H PRN IV NAUSEA AND/OR VOMITING; Start 09/10 at 12:00 Collagenase (Santyl) 1 applic DAILY TOP Last administered on 12/03/18at 15:30; Admin Dose 1 APPLIC; Start 12/03/18 at 14:00 Magnesium Sulfate 50 ml @ 25 mls/hr ONCE ONCE IVPB ; Start 12/04/18 at 09:30; Stop 12/04/18 at 11:29 OK SOOD Dec 04, 2018 09:32
[2018-12-04] MEDS: ASPIRIN 325 MG TAB NGT SCH (09:49)
[2018-12-04] MEDS: ARIPIPRAZOLE 5 MG TAB PO SCH (09:49)
[2018-12-04] MEDS: COLLAGENASE 5 GM (UD JAR) TOP SCH (09:49)
[2018-12-04] MEDS: MULTIVITAMINS THERAPEUTIC TAB PO SCH (09:50)
[2018-12-04] MEDS: CALCIUM/VITAMIN D (500/200) TAB PO SCH (09:50)
[2018-12-04] MEDS: ESCITALOPRAM 10 MG TAB PO SCH (09:50)
[2018-12-04] MEDS: LORATADINE 10 MG TAB PO SCH (09:50)
[2018-12-04] MEDS: FUROSEMIDE 40 MG INJ IV SCH ×2 (09:53→18:23)
[2018-12-04] MEDS: ENOXAPARIN 30 MG/0.3 ML SYG SC SCH (09:56)
--- NOTE | 2018-12-04 10:58 | CONS ---
Date/Time of Note Date/Time of Note DATE: 12/04/18 TIME: 10:52 Assessment/Plan Assessment/Plan Assessment/Plan 1. Oliguric acute on chronic renal failure due to Sepsis and Hemodynamics + obstructive uropathy 2. atrial fibrillation with RVR 3. acute hypoxemic and hypercapnic resp failure due to PNA - failed BIPAP; int ubated 4. Sepsis 5. Positive troponin 6. BPH on flomax 7. Colon CA Plan: BUN/Cr 67/2.07, Na 144 U/o 2.6 L/24 hrs continue current IV Bumex, Monitor electrolyses and replace as needed S/p LHC which showed moderate Nonobstructive CAD - medical management SP Colonoscopy with stent placement by GI - Discussed with son- patient remains full code ; family wants HD if needed - currently no acute indication for HD at this time will follow up Patient seen in collaboration with Dr Yudi Linn. Dw staff Result Diagram: 12/04/18 0400 12/04/18 0400 Results 24hrs Laboratory Tests Test 12/03/18 12:38 12/03/18 17:15 12/03/18 20:45 12/04/18 01:05 Bedside Glucose 91 102 115 118 Test 12/04/18 01:37 12/04/18 04:00 12/04/18 04:52 12/04/18 08:10 Bedside Glucose 113 112 121 White Blood Count 7.0 Red Blood Count 3.79 L Hemoglobin 8.3 L Hematocrit 30.2 L Mean Corpuscular 79.7 L Volume Mean Corpuscular 21.9 L Hemoglobin Mean Corpuscular 27.5 L Hemoglobin Concent Red Cell 31.9 H Distribution Width Platelet Count 227 Mean Platelet Volume Immature 0.600 H Granulocytes % Neutrophils % 74.3 Lymphocytes % 15.5 Monocytes % 6.3 Eosinophils % 3.0 Basophils % 0.3 Nucleated Red Blood 0.0 Cells % Immature 0.040 H Granulocytes # Neutrophils # 5.2 Lymphocytes # 1.1 Monocytes # 0.4 Eosinophils # 0.2 Basophils # 0.0 Nucleated Red Blood 0.0 Cells # Sodium Level 144 Potassium Level 3.5 Chloride Level 101 Carbon Dioxide Level 33 H Anion Gap 10 Blood Urea Nitrogen 67 H Creatinine 2.07 H Est Glomerular Filtrat Rate mL/min Glucose Level 103 Calcium Level 8.4 Phosphorus Level 3.1 Magnesium Level 1.8 Total Bilirubin 0.3 Direct Bilirubin 0.00 Indirect Bilirubin 0.3 Aspartate Amino 24 Transf (AST/SGOT) Alanine 27 Aminotransferase (AL T/SGPT) Alkaline Phosphatase 48 Total Protein 5.4 L Albumin 2.6 L Globulin 2.80 Albumin/Globulin 0.92 Ratio Consultation Date/Type/Reason Admit Date/Time Nov 23, 2018 at 22:01 Initial Consult Date 11/24/18 Type of Consult NEPHROLOGY Reason for Consultation RENAL FAILURE Requesting Provider: NAYANA GARCIA 24 HR Interval Summary Free Text/Dictation NAD - remains stable on supplement oxygen - ET intact - 12/03- sp rectal stent yesterday - 12/02- sp left heart cath - 12/02sp right thoracentesis - family at bed side - all Qs answered - no new events reported overnight per staff Subjective hx not possible: pt non-verbal, pt critical status Constitutional: requiring O2 Exam/Review of Systems Vital Signs Vitals Vital Signs Date Temp Pulse Resp B/P (MAP) Pulse Ox O2 O2 Flow FiO2 Time Delivery Rate 12/04/18 81 15 111/49 96 10:15 (69) 12/04/18 [place] 10:00 l Ventilato r 12/04/18 101.0 09:00 12/04/18 40 08:45 Intake and Output 12/03/18 12/03/18 12/04/18 1515:00 23:00 07:00 IntakeIntake Total 707.20 ml 1016.58 ml 713.88 ml OutputOutput Total 700 ml 1015 ml 1000 ml BalanceBalance 7.20 ml 1.58 ml -286.12 ml Exam Constitutional: non-verbal, frail Psych: nl mood/affect Head: atraumatic Eyes: nl lids ENMT: nl external ears & nose Neck: non-tender Cardiovascular: nl pulses, other (s1s2) Medications Medications Current Medications Acetaminophen (Tylenol Liquid) 650 mg Q6H PRN PO PAIN LEVEL 1-3 OR FEVER Last administered on 12/02/18at 02:31; Admin Dose 650 MG; Start 11/23/18 at 22:30 Acetaminophen (Tylenol Supp) 650 mg Q4H PRN [place] PAIN LEVEL 1-3 OR FEVER Last administered on 12/02/18at 21:21; Admin Dose 650 MG; Start 11/23/18 at 22:30 Atorvastatin Calcium (Lipitor) 20 mg HS PO Last administered on 12/03/18 20:48; Admin Dose 20 MG; Start 11/24/18 at 21:00 Albuterol/ Ipratropium (Duoneb) 3 ml Q4H RESP THERAPY PRN HHN SHORTNESS OF BREATH; Start 11/24/18 at 09:00 Aripiprazole (Abilify) 5 mg DAILY PO Last administered on 12/04/18 09:49; Admin Dose 5 MG; Start 11/24/18 at 09:30 Digoxin (Digoxin) 0.25 mg DAILY@1300 PO Last administered on 11/26/18 13:41; Admin Dose 0.25 MG; Start 11/24/18 at 13:00; Status Hold Escitalopram Oxalate (Lexapro) 20 mg DAILY PO Last administered on 12/04/18 09:50; Admin Dose 20 MG; Start 11/24/18 at 09:30 Loratadine (Claritin) 10 mg DAILY PO Last administered on 12/04/18 09:50; Admin Dose 10 MG; Start 11/24/18 at 10:00 Multivitamins Therapeutic (Theragran) 1 tab DAILY PO Last administered on 12/04/18 09:50; Admin Dose 1 TAB; Start 11/24/18 at 09:30 Potassium Chloride (Micro-K) 8 meq DAILY PO Last administered on 11/24/18 10:12; Admin Dose 8 MEQ; Start 11/24/18 at 10:00; Status Hold Tamsulosin HCl (Flomax) 0.4 mg HS PO Last administered on 12/03/18 20:48; Admin Dose 0.4 MG; Start 11/24/18 at 21:00 Calcium/Vitamin D (Oyster Shell/ Vit-D (500/200)) 1 tab DAILY PO Last administ ered on 12/04/18 09:50; Admin Dose 1 TAB; Start 11/24/18 at 09:30 Metoprolol Tartrate (Lopressor) 5 mg Q4H PRN IV HR>110 Hold SBP<100; Start 11/24/18 at 11:00 Atenolol (Tenormin) 25 mg DAILY PO Last administered on 12/01/18 09:06; Admin Dose 25 MG; Start 11/25/18 at 14:00 Diltiazem HCl (Cardizem Sr) 120 mg DAILY PO ; Start 11/25/18 at 14:00; Status Hold Cefepime HCl 50 ml @ 100 mls/hr Q24H IVPB Last administered on 12/03/18at 12:39; Admin Dose 100 MLS/HR; Start 11/26/18 at 12:00 IV Flush (NS 10 ml) 10 ml PRN PRN IV IV PROTOCOL; Start 11/25/18 at 16:00 Hydralazine HCl (Apresoline) 25 mg Q8 PO Last administered on 12/01/18at 05:36; Admin Dose 25 MG; Start 11/26/18 at 22:00 Pantoprazole (Protonix Iv) 40 mg DAILY@06 IV Last administered on 12/04/18at 06:21; Admin Dose 40 MG; Start 11/29/18 at 06:00 Enoxaparin Sodium (Lovenox) 30 mg DAILY SC Last administered on 12/04/18at 09:56; Admin Dose 30 MG; Start 11/30/18 at 09:00 Diagnostic Test (Pha) (Accu-Chek) 1 ea 02 XX Last administered on 12/03/18at 02:15; Admin Dose 1 EA; Start 12/01/18 at 02:00 Insulin Aspart (Novolog Insulin Pen) (Adult SC Insulin - Mild Algorithm)... Q4 SC ; Start 11/30/18 at 09:00 Miscellaneous Information 1 ea NOTE XX ; Start 11/30/18 at 08:00 Glucose (Glutose) 15 gm Q15M PRN PO DECREASED GLUCOSE; Start 11/30/18 at 08:00 Glucose (Glutose) 22.5 gm Q15M PRN PO DECREASED GLUCOSE; Start 11/30/18 at 08:00 Dextrose (D50w Syringe) 25 ml Q15M PRN IV DECREASED GLUCOSE; Start 11/30/18 at 08:00 Dextrose (D50w Syringe) 50 ml Q15M PRN IV DECREASED GLUCOSE; Start 11/30/18 at 08:00 Glucagon (Glucagen) 1 mg Q15M PRN IM DECREASED GLUCOSE; Start 11/30/18 at 08:00 Glucose (Glutose) 15 gm Q15M PRN BUCCAL DECREASED GLUCOSE; Start 11/30/18 at 08:00 Aspirin (Aspirin) 325 mg DAILY NGT Last administered on 12/04/18at 09:49; Admin Dose 325 MG; Start 11/30/18 at 12:00 Dextrose 1,000 ml @ 100 mls/hr Q10H IV Last administered on 12/04/18at 01:25; Admin Dose 100 MLS/HR; Start 11/30/18 at 15:30; Status Hold Midazolam HCl 50 ml @ 1 mls/hr TITRATE IV Last administered on 12/03/18at 03:19; Admin Dose 4 MLS/HR; Start 12/02/18 at 07:00 Norepinephrine 16 mg/Dextrose 500 ml @ 1.88 mls/hr TITRATE IV Last administered on 12/02/18at 10:03; Admin Dose 9.383 MLS/HR; Start 12/02/18 at 09:30 Fentanyl 100 ml @ 2.5 mls/hr TITRATE IV Last administered on 12/02/18at 15:40; Admin Dose 2.5 MLS/HR; Start 12/02/18 at 10:30 Miscellaneous Information (* Miscellaneous Pharmacy Order) HOLD all METFORMIN ... ONCE XX ; Start 12/02/18 at 12:00; Stop 12/04/18 at 11:59 Acetaminophen (Tylenol Tab) 650 mg Q4H PRN PO mild pain; Start 12/02/18 at 12:00 Morphine Sulfate (morphine) 2 mg Q2H PRN IV moderate to severe pain; Start 12/02/18 at 12:00 Al Hydrox/Mg Hydrox/Simethicone (Mag-Al Plus) 30 ml Q4H PRN PO GASTROINTESTINAL UPSET; Start 12/02/18 at 12:00 Ondansetron HCl (Zofran Inj) 4 mg Q4H PRN IV NAUSEA AND/OR VOMITING; Start 12/02/18 at 12:00 Collagenase (Santyl) 1 applic DAILY TOP Last administered on 12/04/18at 09:49; Admin Dose 1 APPLIC; Start 12/03/18 at 14:00 Magnesium Sulfate 50 ml @ 25 mls/hr ONCE ONCE IVPB Last administered on 12/04/18 09:53; Admin Dose 25 MLS/HR; Start 12/04/18 at 09:30; Stop 12/04/18 at 11:29 Furosemide (Lasix) 40 mg BID DIURETICS IV Last administered on 12/04/18 09:53; Admin Dose 40 MG; Start 12/04/18 at 09:30 DORIAN MOSS Dec 04, 2018 10:58
[2018-12-04] MEDS: CEFEPIME 2GM/50 ML IVPB SCH (12:20)
--- NOTE | 2018-12-04 13:43 | CONS ---
Date/Time of Note Date/Time of Note DATE: 12/04/18 TIME: 13:40 Assessment/Plan Assessment/Plan Hospital Course IMPRESSION: 1. Non-ST elevation myocardial infarction, currently down trending cardiac enzymes likely a type 2 demand infarct in the setting of fevers, hypercarbic respiratory failure.-downtrended cardiac enzymes. NO cp. Echo this admit 11/24 with NL EF 55%. Now s/p LHC 12/02 with no sig major epicardial obstructive cad. LVEDP 21 2. Abnormal electrocardiogram. 3. Right bundle branch block. 4. Colonic mass s/p stent placement 5. Anemia. 6. Renal failure-worsening 7. Leukocytosis. 8. Coagulopathy. 9. Sepsis. 10. Atrial fibrillation-now in SR 11.CHF-diastolic acute on chronic 12. Resp failure s/p intubation 14. Hypotension on levophed 15. PTX Recc: -ICU -Continue asa/statin -Wean pressors as tolerated -Continue broad spectrum abx's and f/u cx data -wean vent as possible -gentle lasix diuresis Result Diagram: 12/04/18 0400 12/04/18 0400 Results 24hrs Laboratory Tests Test 12/03/18 17:15 12/03/18 20:45 12/04/18 01:05 12/04/18 01:37 Bedside Glucose 102 115 118 113 Test 12/04/18 04:00 12/04/18 04:52 12/04/18 08:10 12/04/18 12:29 White Blood Count 7.0 Red Blood Count 3.79 L Hemoglobin 8.3 L Hematocrit 30.2 L Mean Corpuscular 79.7 L Volume Mean Corpuscular 21.9 L Hemoglobin Mean Corpuscular 27.5 L Hemoglobin Concent Red Cell 31.9 H Distribution Width Platelet Count 227 Mean Platelet Volume Immature 0.600 H Granulocytes % Neutrophils % 74.3 Lymphocytes % 15.5 Monocytes % 6.3 Eosinophils % 3.0 Basophils % 0.3 Nucleated Red Blood 0.0 Cells % Immature 0.040 H Granulocytes # Neutrophils # 5.2 Lymphocytes # 1.1 Monocytes # 0.4 Eosinophils # 0.2 Basophils # 0.0 Nucleated Red Blood 0.0 Cells # Sodium Level 144 Potassium Level 3.5 Chloride Level 101 Carbon Dioxide Level 33 H Anion Gap 10 Blood Urea Nitrogen 67 H Creatinine 2.07 H Est Glomerular Filtrat Rate mL/min Glucose Level 103 Calcium Level 8.4 Phosphorus Level 3.1 Magnesium Level 1.8 Total Bilirubin 0.3 Direct Bilirubin 0.00 Indirect Bilirubin 0.3 Aspartate Amino 24 Transf (AST/SGOT) Alanine 27 Aminotransferase (AL T/SGPT) Alkaline Phosphatase 48 Total Protein 5.4 L Albumin 2.6 L Globulin 2.80 Albumin/Globulin 0.92 Ratio Bedside Glucose 112 121 104 Consultation Date/Type/Reason Admit Date/Time Nov 23, 2018 at 22:01 Initial Consult Date 11/24/18 Type of Consult cardiology Reason for Consultation hypotension Requesting Provider: NAYANA GARCIA Exam/Review of Systems Vital Signs Vitals Vital Signs Date Temp Pulse Resp B/P (MAP) Pulse Ox O2 O2 Flow FiO2 Time Delivery Rate 12/04/18 79 12:00 12/04/18 24 92/46 (61) 95 10:45 12/04/18 Mechanica 10:00 l Ventilato r 12/04/18 101.0 09:00 12/04/18 40 08:45 Intake and Output 12/03/18 12/03/18 12/04/18 1515:00 23:00 07:00 IntakeIntake Total 707.20 ml 1016.58 ml 815.88 ml OutputOutput Total 700 ml 1015 ml 1000 ml BalanceBalance 7.20 ml 1.58 ml -184.12 ml Exam Review of Systems: CONSTITUTIONAL: No fevers, chills. PULMONARY: No sob CARDIOVASCULAR: No chest pain/palpitations GASTROINTESTINAL: No nausea/vomiting. GENITOURINARY: No hematuria/dysuria. MUSCULOSKELETAL: No myagias/arthalgias. PSYCHIATRIC: The patient denies depression. NEUROLOGIC: No weakness Constitutional: alert Psych: no complaints Head: normocephalic ENMT: mucosa pink and moist Neck: supple, jvd (9 cm water) Respiratory: diminished breath sounds Cardiovascular: regular rate and rhythm Gastrointestinal: soft, non-tender Musculoskeletal: muscle weakness (generalized) Extremities: pitting pedal edema (bilateral) Neurological: other (No focal deficits) Medications Medications Current Medications Acetaminophen (Tylenol Liquid) 650 mg Q6H PRN PO PAIN LEVEL 1-3 OR FEVER Last administered on 12/02/18at 02:31; Admin Dose 650 MG; Start 11/23/18 at 22:30 Acetaminophen (Tylenol Supp) 650 mg Q4H PRN MD PAIN LEVEL 1-3 OR FEVER Last administered on 12/02/18 21:21; Admin Dose 650 MG; Start 11/23/18 at 22:30 Atorvastatin Calcium (Lipitor) 20 mg HS PO Last administered on 12/03/18 20:48; Admin Dose 20 MG; Start 11/24/18 at 21:00 Albuterol/ Ipratropium (Duoneb) 3 ml Q4H RESP THERAPY PRN HHN SHORTNESS OF BREATH; Start 11/24/18 at 09:00 Aripiprazole (Abilify) 5 mg DAILY PO Last administered on 12/04/18 09:49; Admin Dose 5 MG; Start 11/24/18 at 09:30 Digoxin (Digoxin) 0.25 mg DAILY@1300 PO Last administered on 11/26/18 13:41; Admin Dose 0.25 MG; Start 11/24/18 at 13:00; Status Hold Escitalopram Oxalate (Lexapro) 20 mg DAILY PO Last administered on 12/04/18 09:50; Admin Dose 20 MG; Start 11/24/18 at 09:30 Loratadine (Claritin) 10 mg DAILY PO Last administered on 12/04/18 09:50; Admin Dose 10 MG; Start 11/24/18 at 10:00 Multivitamins Therapeutic (Theragran) 1 tab DAILY PO Last administered on 12/04/18 09:50; Admin Dose 1 TAB; Start 11/24/18 at 09:30 Potassium Chloride (Micro-K) 8 meq DAILY PO Last administered on 11/24/18 10:12; Admin Dose 8 MEQ; Start 11/24/18 at 10:00; Status Hold Tamsulosin HCl (Flomax) 0.4 mg HS PO Last administered on 12/03/18 20:48; Admin Dose 0.4 MG; Start 11/24/18 at 21:00 Calcium/Vitamin D (Oyster Shell/ Vit-D (500/200)) 1 tab DAILY PO Last administered on 12/04/18 09:50; Admin Dose 1 TAB; Start 11/24/18 at 09:30 Metoprolol Tartrate (Lopressor) 5 mg Q4H PRN IV HR>110 Hold SBP<100; Start 11/24/18 at 11:00 Atenolol (Tenormin) 25 mg DAILY PO Last administered on 12/01/18at 09:06; Admin Dose 25 MG; Start 11/25/18 at 14:00 Diltiazem HCl (Cardizem Sr) 120 mg DAILY PO ; Start 11/25/18 at 14:00; Status Hold Cefepime HCl 50 ml @ 100 mls/hr Q24H IVPB Last administered on 12/04/18at 12:20; Admin Dose 100 MLS/HR; Start 11/26/18 at 12:00 IV Flush (NS 10 ml) 10 ml PRN PRN IV IV PROTOCOL; Start 11/25/18 at 16:00 Hydralazine HCl (Apresoline) 25 mg Q8 PO Last administered on 12/01/18at 05:36; Admin Dose 25 MG; Start 11/26/18 at 22:00 Pantoprazole (Protonix Iv) 40 mg DAILY@06 IV Last administered on 12/04/18at 06:21; Admin Dose 40 MG; Start 11/29/18 at 06:00 Enoxaparin Sodium (Lovenox) 30 mg DAILY SC Last administered on 12/04/18at 09:56; Admin Dose 30 MG; Start 11/30/18 at 09:00 Diagnostic Test (Pha) (Accu-Chek) 1 ea 02 XX Last administered on 12/03/18at 02:15; Admin Dose 1 EA; Start 12/01/18 at 02:00 Insulin Aspart (Novolog Insulin Pen) (Adult SC Insulin - Mild Algorithm)... Q4 SC ; Start 11/30/18 at 09:00 Miscellaneous Information 1 ea NOTE XX ; Start 11/30/18 at 08:00 Glucose (Glutose) 15 gm Q15M PRN PO DECREASED GLUCOSE; Start 11/30/18 at 08:00 Glucose (Glutose) 22.5 gm Q15M PRN PO DECREASED GLUCOSE; Start 11/30/18 at 08:00 Dextrose (D50w Syringe) 25 ml Q15M PRN IV DECREASED GLUCOSE; Start 11/30/18 at 08:00 Dextrose (D50w Syringe) 50 ml Q15M PRN IV DECREASED GLUCOSE; Start 11/30/18 at 08:00 Glucagon (Glucagen) 1 mg Q15M PRN IM DECREASED GLUCOSE; Start 11/30/18 at 08:00 Glucose (Glutose) 15 gm Q15M PRN BUCCAL DECREASED GLUCOSE; Start 11/30/18 at 08:00 Aspirin (Aspirin) 325 mg DAILY NGT Last administered on 12/04/18 09:49; Admin Dose 325 MG; Start 11/30/18 at 12:00 Dextrose 1,000 ml @ 100 mls/hr Q10H IV Last administered on 12/04/18at 01:25; Admin Dose 100 MLS/HR; Start 11/30/18 at 15:30; Status Hold Midazolam HCl 50 ml @ 1 mls/hr TITRATE IV Last administered on 12/03/18at 03:19; Admin Dose 4 MLS/HR; Start 12/02/18 at 07:00 Norepinephrine 16 mg/Dextrose 500 ml @ 1.88 mls/hr TITRATE IV Last administered on 12/02/18at 10:03; Admin Dose 9.383 MLS/HR; Start 12/02/18 at 09:30 Fentanyl 100 ml @ 2.5 mls/hr TITRATE IV Last administered on 12/02/18at 15:40; Admin Dose 2.5 MLS/HR; Start 12/02/18 at 10:30 Acetaminophen (Tylenol Tab) 650 mg Q4H PRN PO mild pain; Start 12/02/18 at 12:00 Morphine Sulfate (morphine) 2 mg Q2H PRN IV moderate to severe pain; Start 12/02/18 at 12:00 Al Hydrox/Mg Hydrox/Simethicone (Mag-Al Plus) 30 ml Q4H PRN PO GASTROINTESTINAL UPSET; Start 12/02/18 at 12:00 Ondansetron HCl (Zofran Inj) 4 mg Q4H PRN IV NAUSEA AND/OR VOMITING; Start 12/02/18 at 12:00 Collagenase (Santyl) 1 applic DAILY TOP Last administered on 12/04/18 09:49; Admin Dose 1 APPLIC; Start 12/03/18 at 14:00 Furosemide (Lasix) 40 mg BID DIURETICS IV Last administered on 12/04/18 09:53; Admin Dose 40 MG; Start 12/04/18 at 09:30 TWAN ESTEVEZ Dec 04, 2018 13:43
--- NOTE | 2018-12-04 14:29 | PN ---
Date/Time of Note Date/Time of Note DATE: 12/04/18 TIME: 14:28 Assessment/Plan VTE Prophylaxis Risk score (from Ns)>0 risk: 12 SCD applied (from Ns): No SCD contraindicated: low risk/ambulating Pharmacological prophylaxis: LMWH Lines/Catheters [facility]from [facility] Central Line Central line still needed: Yes Urinary Cath still in place: Yes Reason Cath still needed: urinary retention Assessment/Plan Assessment/Plan 78-year-old male recently diagnosed with new colon mass, who presents with: # Hypoxic and hypercapnic respiratory failure: Appears to be due to pulmonary edema and possible pneumonia. - Failed BiPAP, intubated 12/02. - continue IV antibiotics - Currently requiring pressors. - Daily weaning trials per pulmonary. # Sepsis: As evidenced by fever and tachycardia: Secondary to pneumonia -Again, continue broad-spectrum IV antibiotics -Follow-up final respiratory and blood culture results # Cardiac- elevated troponins: - Got cardiac cath 12/02, clear coronaries. # Sigmoid mass: Status post biopsy during recent hospitalization. 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 - Mass is almost completely obstructive. Because the patient is too unstable for surgery, plan for palliative rectal stent. Dr. Fang consulted. - Per discussion with Dr. Juan on 12/01, patient is not currently a surgical candidate due to his acute illness but may get surgery if he improves. # Atrial fibrillation with RVR -resolved now -Continue to monitor, patient on beta-esther and digoxin, follow-up cardiology recommendations # Renal insufficiency: Oliguric acute on chronic renal failure - This was likely due to obstructive uropathy - Now that Ballard is back in, patient is having post-obstructive diuresis and significant improvement in Cr. #Hypernatremia, resolving. - Likely from postobstructive diuresis. - Will stop D5W, switch to free water flushes via NGt # Diabetes: Sugar stable, continue insulin while in-house DVT: lovenox GI: PPI Code status: Full. Family wants everything done to treat his multiorgan failure and cancer. Result Diagram: 1/12/19 0400 12/04/18 0400 Results 24hrs Laboratory Tests Test 12/03/18 17:15 12/03/18 20:45 12/04/18 01:05 12/04/18 01:37 Bedside Glucose 102 115 118 113 Test 12/04/18 04:00 12/04/18 04:52 12/04/18 08:10 12/04/18 12:29 White Blood Count 7.0 Red Blood Count 3.79 L Hemoglobin 8.3 L Hematocrit 30.2 L Mean Corpuscular 79.7 L Volume Mean Corpuscular 21.9 L Hemoglobin Mean Corpuscular 27.5 L Hemoglobin Concent Red Cell 31.9 H Distribution Width Platelet Count 227 Mean Platelet Volume Immature 0.600 H Granulocytes % Neutrophils % 74.3 Lymphocytes % 15.5 Monocytes % 6.3 Eosinophils % 3.0 Basophils % 0.3 Nucleated Red Blood 0.0 Cells % Immature 0.040 H Granulocytes # Neutrophils # 5.2 Lymphocytes # 1.1 Monocytes # 0.4 Eosinophils # 0.2 Basophils # 0.0 Nucleated Red Blood 0.0 Cells # Sodium Level 144 Potassium Level 3.5 Chloride Level 101 Carbon Dioxide Level 33 H Anion Gap 10 Blood Urea Nitrogen 67 H Creatinine 2.07 H Est Glomerular Filtrat Rate mL/min Glucose Level 103 Calcium Level 8.4 Phosphorus Level 3.1 Magnesium Level 1.8 Total Bilirubin 0.3 Direct Bilirubin 0.00 Indirect Bilirubin 0.3 Aspartate Amino 24 Transf (AST/SGOT) Alanine 27 Aminotransferase (AL T/SGPT) Alkaline Phosphatase 48 Total Protein 5.4 L Albumin 2.6 L Globulin 2.80 Albumin/Globulin 0.92 Ratio Bedside Glucose 112 121 104 Subjective 24 Hr Interval Summary Free Text/Dictation No acute overnight events. Off sedation since yesterday afternoon; delayed to wake up. Exam/Review of Systems Vital Signs Vitals Vital Signs Date Temp Pulse Resp B/P (MAP) Pulse Ox O2 O2 Flow FiO2 Time Delivery Rate 12/04/18 79 25 96 40 13:30 12/04/18 92/46 (61) 10:45 12/04/18 Mechanica 10:00 l Ventilato r 12/04/18 101.0 09:00 Intake and Output 12/03/18 12/03/18 12/04/18 1515:00 23:00 07:00 IntakeIntake Total 707.20 ml 1016.58 ml 815.88 ml OutputOutput Total 700 ml 1015 ml 1000 ml BalanceBalance 7.20 ml 1.58 ml -184.12 ml Exam Const: Obese man sedated, intubated, unresponsive. Head: Atraumatic, normocephalic Eyes: Normal Conjunctiva, PERRLA, EOMI, normal sclera, no nystagmus ENT: Normal External Ears, Nose and Mouth, dry mucus membranes. Neck: Supple Resp: Mechanical breath sounds throughout, although diminished on R side. No crackles or wheezes. Cardio: Regular rate and rhythm, no murmurs, S1 S2 present Abd: Soft, slight distention. Normal bowel sounds, no guarding or rebound Ext: No cyanosis, or edema Medications Medications Current Medications Acetaminophen (Tylenol Liquid) 650 mg Q6H PRN PO PAIN LEVEL 1-3 OR FEVER Last administered on 12/02/18 02:31; Admin Dose 650 MG; Start 11/23/18 at 22:30 Acetaminophen (Tylenol Supp) 650 mg Q4H PRN [place] PAIN LEVEL 1-3 OR FEVER Last administered on 12/02/18 21:21; Admin Dose 650 MG; Start 11/23/18 at 22:30 Atorvastatin Calcium (Lipitor) 20 mg HS PO Last administered on 12/03/18 20:48; Admin Dose 20 MG; Start 11/24/18 at 21:00 Albuterol/ Ipratropium (Duoneb) 3 ml Q4H RESP THERAPY PRN HHN SHORTNESS OF BREATH; Start 11/24/18 at 09:00 Aripiprazole (Abilify) 5 mg DAILY PO Last administered on 12/04/18 09:49; Admin Dose 5 MG; Start 11/24/18 at 09:30 Digoxin (Digoxin) 0.25 mg DAILY@1300 PO Last administered on 11/26/18 13:41; Admin Dose 0.25 MG; Start 11/24/18 at 13:00; Status Hold Escitalopram Oxalate (Lexapro) 20 mg DAILY PO Last administered on 12/04/18 09:50; Admin Dose 20 MG; Start 11/24/18 at 09:30 Loratadine (Claritin) 10 mg DAILY PO Last administered on 1/12/19at 09:50; Admin Dose 10 MG; Start 11/24/18 at 10:00 Multivitamins Therapeutic (Theragran) 1 tab DAILY PO Last administered on 12/04/18 09:50; Admin Dose 1 TAB; Start 11/24/18 at 09:30 Potassium Chloride (Micro-K) 8 meq DAILY PO Last administered on 11/24/18 10:12; Admin Dose 8 MEQ; Start 11/24/18 at 10:00; Status Hold Tamsulosin HCl (Flomax) 0.4 mg HS PO Last administered on 12/03/18at 20:48; Admin Dose 0.4 MG; Start 11/24/18 at 21:00 Calcium/Vitamin D (Oyster Shell/ Vit-D (500/200)) 1 tab DAILY PO Last adminis tered on 12/04/18 09:50; Admin Dose 1 TAB; Start 11/24/18 at 09:30 Metoprolol Tartrate (Lopressor) 5 mg Q4H PRN IV HR>110 Hold SBP<100; Start 11/24/18 at 11:00 Atenolol (Tenormin) 25 mg DAILY PO Last administered on 12/01/18 09:06; Admin Dose 25 MG; Start 11/25/18 at 14:00 Diltiazem HCl (Cardizem Sr) 120 mg DAILY PO ; Start 11/25/18 at 14:00; Status Hold Cefepime HCl 50 ml @ 100 mls/hr Q24H IVPB Last administered on 12/04/18 12:20; Admin Dose 100 MLS/HR; Start 11/26/18 at 12:00 IV Flush (NS 10 ml) 10 ml PRN PRN IV IV PROTOCOL; Start 11/25/18 at 16:00 Hydralazine HCl (Apresoline) 25 mg Q8 PO Last administered on 12/01/18 05:36; Admin Dose 25 MG; Start 11/26/18 at 22:00 Pantoprazole (Protonix Iv) 40 mg DAILY@06 IV Last administered on 12/04/18 06:21; Admin Dose 40 MG; Start 11/29/18 at 06:00 Enoxaparin Sodium (Lovenox) 30 mg DAILY SC Last administered on 12/04/18 09:56; Admin Dose 30 MG; Start 11/30/18 at 09:00 Diagnostic Test (Pha) (Accu-Chek) 1 ea 02 XX Last administered on 12/03/18at 02:15; Admin Dose 1 EA; Start 12/01/18 at 02:00 Insulin Aspart (Novolog Insulin Pen) (Adult SC Insulin - Mild Algorithm)... Q4 SC ; Start 11/30/18 at 09:00 Miscellaneous Information 1 ea NOTE XX ; Start 11/30/18 at 08:00 Glucose (Glutose) 15 gm Q15M PRN PO DECREASED GLUCOSE; Start 11/30/18 at 08:00 Glucose (Glutose) 22.5 gm Q15M PRN PO DECREASED GLUCOSE; Start 11/30/18 at 08:00 Dextrose (D50w Syringe) 25 ml Q15M PRN IV DECREASED GLUCOSE; Start 11/30/18 at 08:00 Dextrose (D50w Syringe) 50 ml Q15M PRN IV DECREASED GLUCOSE; Start 11/30/18 at 08:00 Glucagon (Glucagen) 1 mg Q15M PRN IM DECREASED GLUCOSE; Start 11/30/18 at 08:00 Glucose (Glutose) 15 gm Q15M PRN BUCCAL DECREASED GLUCOSE; Start 11/30/18 at 08:00 Aspirin (Aspirin) 325 mg DAILY NGT Last administered on 12/04/18at 09:49; Admin Dose 325 MG; Start 11/30/18 at 12:00 Dextrose 1,000 ml @ 100 mls/hr Q10H IV Last administered on 12/04/18at 01:25; Admin Dose 100 MLS/HR; Start 11/30/18 at 15:30; Status Hold Midazolam HCl 50 ml @ 1 mls/hr TITRATE IV Last administered on 12/03/18at 03:19; Admin Dose 4 MLS/HR; Start 12/02/18 at 07:00 Norepinephrine 16 mg/Dextrose 500 ml @ 1.88 mls/hr TITRATE IV Last administered on 12/02/18at 10:03; Admin Dose 9.383 MLS/HR; Start 12/02/18 at 09:30 Fentanyl 100 ml @ 2.5 mls/hr TITRATE IV Last administered on 12/02/18at 15:40; Admin Dose 2.5 MLS/HR; Start 12/02/18 at 10:30 Acetaminophen (Tylenol Tab) 650 mg Q4H PRN PO mild pain; Start 12/02/18 at 12:00 Morphine Sulfate (morphine) 2 mg Q2H PRN IV moderate to severe pain; Start 12/02/18 at 12:00 Al Hydrox/Mg Hydrox/Simethicone (Mag-Al Plus) 30 ml Q4H PRN PO GASTROINTESTINAL UPSET; Start 12/02/18 at 12:00 Ondansetron HCl (Zofran Inj) 4 mg Q4H PRN IV NAUSEA AND/OR VOMITING; Start 12/02/18 at 12:00 Collagenase (Santyl) 1 applic DAILY TOP Last administered on 12/04/18at 09:49; Admin Dose 1 APPLIC; Start 12/03/18 at 14:00 Furosemide (Lasix) 40 mg BID DIURETICS IV Last administered on 12/04/18at 09:53; Admin Dose 40 MG; Start 12/04/18 at 09:30 TWAN PATTERSON MD Dec 04, 2018 14:29
[2018-12-04] MEDS: FENTAnyl (DRIP) 1000 mcg/100mL 100 ML IV SCH (17:18)
--- NOTE | 2018-12-04 19:41 | NUR ---
END OF SHIFT: All needs attended. Vital signs stable during the shift. Remains intubated. Restarted Fentanyl Drip 25mcgs/hr before 1700 due to restlessness, patient keeps moving and possible to pull out ET tube. Explained to son: Ang the reason why low dose Fentanyl restarted. Son wants patient to be fully awake and stated "so I could talk to him and he could reply to me". Patient's RASS score -2. Cardiac; remains on Levophed 2mcgs. Seen by Dr. Ferro and MD updated o patient's condition. GI: Patient had 2 watery stool, Replete tube feeding started around 1330 at 2cc/hr. Goal is 60cc/hr. Ballard output: remains sufficient. Lasix 40mg IV BID given. 1275ml output during the shift. SKIN: Turned and repositioned Qhours, patient tolerated. Found new DTI to Rt parietal head. Dr. Nolen made aware, with orders for wound consult and Venelex ointment. Son: Ang made aware of the new skin injury. Endorsed to incoming: LELYA Guallpa. Bedside report performed.
[2018-12-04] MEDS: ATORVASTATIN 20 MG TAB PO SCH (21:32)
[2018-12-04] MEDS: BALSAM PERU/CASTOR OIL 60 GM TUBE TOP SCH (21:32)
[2018-12-04] MEDS: TAMSULOSIN (SR) 0.4 MG CAP PO SCH (21:32)
--- NOTE | 2018-12-04 22:15 | NUR ---
40 CC GASTRIC RESIDUAL ASPIRATED FROM NG TUBE. TUBE FEED RATE INCREASED TO 30CC/HR.
[2018-12-05] VITALS (101 sets, daily range): BP systolic 80–128; BP diastolic 40–75; PULSE 58–96; RESP 10–30
[2018-12-05] MEDS: Insulin NOVOLOG SS MILD Algorithm (NPO/TPN/ENTERAL FEEDS) SC SCH ×6 (01:00→21:00)
[2018-12-05] MEDS: ACCU-CHEK XX SCH (01:03)
[2018-12-05] MEDS: ACETAMINOPHEN 325 MG TAB PO PRN (01:13)
--- NOTE | 2018-12-05 02:00 | NUR ---
PATIENT TEMPERATURE 101.4 AFTER GIVING TYLENOL. BLANKETS REMOVED AND ICE PACKS PLACED UNDER EACH ARMPIT.
--- NOTE | 2018-12-05 05:00 | NUR ---
ASPIRATED 10 CC GASTRIC RESIDUAL FROM PATIENT NG TUBE. TUBE FEEDS INCREASED TO 40 CC/HR.
--- NOTE | 2018-12-05 05:04 | NUR ---
MD LEO INFORMED OF PATIENT CRITICAL POTASSIUM VALUE. ORDERS FOR POTASSIUM REPLACEMENT TO BE CARRIED OUT.
[2018-12-05] MEDS ORDERED: MAGNESIUM SULFATE 1 GM/D5W 100 ML IVPB ONE (05:30)
[2018-12-05] MEDS: PANTOPRAZOLE 40 MG INJ IV SCH (05:49)
[2018-12-05] MEDS: FUROSEMIDE 40 MG INJ IV SCH ×2 (05:51→18:35)
[2018-12-05] MEDS: POTASSIUM CHLORIDE 100 ML IVPB SCH ×3 (05:52→11:42)
[2018-12-05] MEDS: COLLAGENASE 5 GM (UD JAR) TOP SCH (08:06)
[2018-12-05] MEDS: MULTIVITAMINS THERAPEUTIC TAB PO SCH (08:06)
[2018-12-05] MEDS: ARIPIPRAZOLE 5 MG TAB PO SCH (08:06)
[2018-12-05] MEDS: LORATADINE 10 MG TAB PO SCH (08:06)
[2018-12-05] MEDS: ESCITALOPRAM 10 MG TAB PO SCH (08:06)
[2018-12-05] MEDS: CALCIUM/VITAMIN D (500/200) TAB PO SCH (08:06)
[2018-12-05] MEDS: ASPIRIN 325 MG TAB NGT SCH (08:06)
[2018-12-05] MEDS: ATENOLOL 50 MG TAB PO SCH (08:10)
[2018-12-05] MEDS: BALSAM PERU/CASTOR OIL 60 GM TUBE TOP SCH ×2 (09:00→21:51)
[2018-12-05] MEDS: ENOXAPARIN 30 MG/0.3 ML SYG SC SCH (09:06)
--- NOTE | 2018-12-05 11:01 | CONS ---
Date/Time of Note Date/Time of Note DATE: 12/05/18 TIME: 10:58 Assessment/Plan Assessment/Plan Assessment/Plan Chest x-ray showing cardiomegaly with mild CHF pattern. Ventilator setting; AC of 16, tidal volume 500, PEEP of 5, 40% FiO2. Patient is currently on Levophed at 2 mics per minute, fentanyl 25 mics per hour. Assessment and recommendations; 1. Patient admitted with shortness of breath due to underlying CHF status post cardiac catheterization without any significant findings. 2. Bowel obstruction status post sigmoidoscopy with placement of sigmoid stent. Biopsy results are pending. Possibly underlying malignancy. 3. Anemia. 4. Chronic renal insufficiency. 5. History of hypertension. 6. Systemic hypotension, requiring low-dose Levophed. Hold further sedation. Discontinue beta-esther. Continue current antibiotics. Once the patient is off sedation he will be evaluated for possible weaning from ventilator. 35 minutes of critical care time was spent evaluating the patient. Result Diagram: 12/05/18 0330 12/05/18 0330 Results 24hrs Laboratory Tests Test 12/04/18 12:29 12/04/18 17:42 12/04/18 21:27 12/05/18 01:01 Bedside Glucose 104 106 114 113 Test 12/05/18 03:30 12/05/18 05:53 12/05/18 08:55 White Blood Count 9.5 # Red Blood Count 3.82 L Hemoglobin 8.3 L Hematocrit 31.4 L Mean Corpuscular 82.2 Volume Mean Corpuscular 21.7 L Hemoglobin Mean Corpuscular 26.4 L Hemoglobin Concent Red Cell 31.5 H Distribution Width Platelet Count 223 Mean Platelet Volume Immature 0.500 H Granulocytes % Neutrophils % 81.0 H Lymphocytes % 10.0 L Monocytes % 4.9 Eosinophils % 3.3 Basophils % 0.3 Nucleated Red Blood 0.0 Cells % Immature 0.050 H Granulocytes # Neutrophils # 7.7 H Lymphocytes # 1.0 Monocytes # 0.5 Eosinophils # 0.3 Basophils # 0.0 Nucleated Red Blood 0.0 Cells # Sodium Level 143 Potassium Level 2.9 *L Chloride Level 100 Carbon Dioxide Level 34 H Anion Gap 9 Blood Urea Nitrogen 71 H Creatinine 2.46 H Est Glomerular Filtrat Rate mL/min Glucose Level 110 Calcium Level 8.4 Total Bilirubin 0.2 Direct Bilirubin 0.00 Indirect Bilirubin 0.2 Aspartate Amino 27 Transf (AST/SGOT) Alanine 27 Aminotransferase (AL T/SGPT) Alkaline Phosphatase 56 Total Protein 5.8 L Albumin 2.8 L Globulin 3.00 Albumin/Globulin 0.93 Ratio Bedside Glucose 127 114 Consultation Date/Type/Reason Admit Date/Time Nov 23, 2018 at 22:01 Initial Consult Date 11/24/18 Type of Consult Pulmonary/critical care Requesting Provider: NAYANA GARCIA 24 HR Interval Summary Free Text/Dictation Patient's condition remains critical but stable. Still requiring low-dose Levophed. Mental status has significantly improved over the last 24 hours. General exam; elderly male, orally intubated, awake and responsive. Currently in no distress. Exam/Review of Systems Vital Signs Vitals Vital Signs Date Temp Pulse Resp B/P (MAP) Pulse Ox O2 O2 Flow FiO2 Time Delivery Rate 12/05/18 67 18 91/43 (59) 98 10:30 12/05/18 Mechanical 10:00 Ventilator 12/05/18 98.4 08:00 12/05/18 40 08:00 Intake and Output 12/04/18 12/04/18 12/05/18 1515:00 23:00 07:00 IntakeIntake Total 443.00 ml 427.50 ml 556.28 ml OutputOutput Total 950 ml 745 ml 470 ml BalanceBalance -507.00 ml -317.50 ml 86.28 ml Exam H EENT exam; supple neck, positive JVD. No lymphadenopathy. Midline trachea. No thyromegaly. Orally intubated. Patient is edentulous. Chest exam; diminished but clear breath sounds. S1-S2 audible, no murmurs. Regular rhythm. Abdomen exam; soft, no organomegaly. Bowel sounds audible. Extremity exam; no peripheral edema or clubbing. INFORMATION LEAD exam; patient is awake and responsive. Medications Medications Current Medications Acetaminophen (Tylenol Liquid) 650 mg Q6H PRN PO PAIN LEVEL 1-3 OR FEVER Last administered on 12/02/18at 02:31; Admin Dose 650 MG; Start 11/23/18 at 22:30 Acetaminophen (Tylenol Supp) 650 mg Q4H PRN WI PAIN LEVEL 1-3 OR FEVER Last administered on 12/02/18at 21:21; Admin Dose 650 MG; Start 11/23/18 at 22:30 Atorvastatin Calcium (Lipitor) 20 mg HS PO Last administered on 12/04/18 21:32; Admin Dose 20 MG; Start 11/24/18 at 21:00 Albuterol/ Ipratropium (Duoneb) 3 ml Q4H RESP THERAPY PRN HHN SHORTNESS OF BREATH; Start 11/24/18 at 09:00 Aripiprazole (Abilify) 5 mg DAILY PO Last administered on 12/05/18 08:06; Admin Dose 5 MG; Start 11/24/18 at 09:30 Digoxin (Digoxin) 0.25 mg DAILY@1300 PO Last administered on 11/26/18 13:41; Admin Dose 0.25 MG; Start 11/24/18 at 13:00; Status Hold Escitalopram Oxalate (Lexapro) 20 mg DAILY PO Last administered on 12/05/18 08:06; Admin Dose 20 MG; Start 11/24/18 at 09:30 Loratadine (Claritin) 10 mg DAILY PO Last administered on 12/05/18 08:06; Admin Dose 10 MG; Start 11/24/18 at 10:00 Multivitamins Therapeutic (Theragran) 1 tab DAILY PO Last administered on 12/05/18 08:06; Admin Dose 1 TAB; Start 11/24/18 at 09:30 Potassium Chloride (Micro-K) 8 meq DAILY PO Last administered on 11/24/18 10:12; Admin Dose 8 MEQ; Start 11/24/18 at 10:00; Status Hold Tamsulosin HCl (Flomax) 0.4 mg HS PO Last administered on 12/04/18 21:32; Admin Dose 0.4 MG; Start 11/24/18 at 21:00 Calcium/Vitamin D (Oyster Shell/ Vit-D (500/200)) 1 tab DAILY PO Last administered on 12/05/18 08:06; Admin Dose 1 TAB; Start 11/24/18 at 09:30 Metoprolol Tartrate (Lopressor) 5 mg Q4H PRN IV HR>110 Hold SBP<100; Start 11/24/18 at 11:00 Atenolol (Tenormin) 25 mg DAILY PO Last administered on 12/01/18 09:06; Admin Dose 25 MG; Start 11/25/18 at 14:00 Diltiazem HCl (Cardizem Sr) 120 mg DAILY PO ; Start 11/25/18 at 14:00; Status Hold Cefepime HCl 50 ml @ 100 mls/hr Q24H IVPB Last administered on 12/04/18at 12:20; Admin Dose 100 MLS/HR; Start 11/26/18 at 12:00 IV Flush (NS 10 ml) 10 ml PRN PRN IV IV PROTOCOL; Start 11/25/18 at 16:00 Hydralazine HCl (Apresoline) 25 mg Q8 PO Last administered on 12/01/18at 05:36; Admin Dose 25 MG; Start 11/26/18 at 22:00 Pantoprazole (Protonix Iv) 40 mg DAILY@06 IV Last administered on 12/05/18at 05:49; Admin Dose 40 MG; Start 11/29/18 at 06:00 Enoxaparin Sodium (Lovenox) 30 mg DAILY SC Last administered on 12/05/18at 09:06; Admin Dose 30 MG; Start 11/30/18 at 09:00 Diagnostic Test (Pha) (Accu-Chek) 1 ea 02 XX Last administered on 12/05/18at 01:03; Admin Dose 1 EA; Start 12/01/18 at 02:00 Insulin Aspart (Novolog Insulin Pen) (Adult SC Insulin - Mild Algorithm)... Q4 SC ; Start 11/30/18 at 09:00 Miscellaneous Information 1 ea NOTE XX ; Start 11/30/18 at 08:00 Glucose (Glutose) 15 gm Q15M PRN PO DECREASED GLUCOSE; Start 11/30/18 at 08:00 Glucose (Glutose) 22.5 gm Q15M PRN PO DECREASED GLUCOSE; Start 11/30/18 at 08:00 Dextrose (D50w Syringe) 25 ml Q15M PRN IV DECREASED GLUCOSE; Start 11/30/18 at 08:00 Dextrose (D50w Syringe) 50 ml Q15M PRN IV DECREASED GLUCOSE; Start 11/30/18 at 08:00 Glucagon (Glucagen) 1 mg Q15M PRN IM DECREASED GLUCOSE; Start 11/30/18 at 08:00 Glucose (Glutose) 15 gm Q15M PRN BUCCAL DECREASED GLUCOSE; Start 11/30/18 at 08:00 Aspirin (Aspirin) 325 mg DAILY NGT Last administered on 12/05/18 08:06; Admin Dose 325 MG; Start 11/30/18 at 12:00 Dextrose 1,000 ml @ 100 mls/hr Q10H IV Last administered on 12/04/18 01:25; Admin Dose 100 MLS/HR; Start 11/30/18 at 15:30; Status Hold Midazolam HCl 50 ml @ 1 mls/hr TITRATE IV Last administered on 12/03/18 03:19; Admin Dose 4 MLS/HR; Start 12/02/18 at 07:00 Norepinephrine 16 mg/Dextrose 500 ml @ 1.88 mls/hr TITRATE IV Last administered on 12/02/18 10:03; Admin Dose 9.383 MLS/HR; Start 12/02/18 at 09:30 Fentanyl 100 ml @ 2.5 mls/hr TITRATE IV Last administered on 12/04/18 17:18; Admin Dose 2.5 MLS/HR; Start 12/02/18 at 10:30 Acetaminophen (Tylenol Tab) 650 mg Q4H PRN PO mild pain Last administered on 12/05/18 01:13; Admin Dose 650 MG; Start 12/02/18 at 12:00 Morphine Sulfate (morphine) 2 mg Q2H PRN IV moderate to severe pain; Start 12/02/18 at 12:00 Al Hydrox/Mg Hydrox/Simethicone (Mag-Al Plus) 30 ml Q4H PRN PO GASTROINTESTINAL UPSET; Start 12/02/18 at 12:00 Ondansetron HCl (Zofran Inj) 4 mg Q4H PRN IV NAUSEA AND/OR VOMITING; Start 12/02/18 at 12:00 Collagenase (Santyl) 1 applic DAILY TOP Last administered on 12/05/18 08:06; Admin Dose 1 APPLIC; Start 12/03/18 at 14:00 Furosemide (Lasix) 40 mg BID DIURETICS IV Last administered on 12/04/18 18:23; Admin Dose 40 MG; Start 12/04/18 at 09:30 Potassium Chloride 100 ml @ 50 mls/hr Q2H IVPB Last administered on 12/05/18 08:06; Admin Dose 50 MLS/HR; Start 12/05/18 at 05:30; Stop 12/05/18 at 11:29 OK SOOD Dec 05, 2018 11:01
--- NOTE | 2018-12-05 11:51 | CONS ---
Date/Time of Note Date/Time of Note DATE: 12/05/18 TIME: 11:45 Assessment/Plan Assessment/Plan Assessment/Plan - Severe Hypokalemia- replaced; monitor labs 1. Oliguric acute on chronic renal failure due to Sepsis and Hemodynamics + obstructive uropathy 2. atrial fibrillation with RVR 3. acute hypoxemic and hypercapnic resp failure due to PNA - Failed BIPAP- intubated 4. Sepsis 5. Positive troponin 6. BPH on flomax 7. Colon CA Plan: BUN/Cr 71/ 2.26;, Na 143- U/o 2.3 L /24 hrs continue current IV bumex, Monitor electrolyses and replace as needed S/p LHC which showed moderate Nonobstructive CAD - medical management Plan for Colonoscopy with stent placement by GI today Discussed with son- patient remains full code ; family wants HD if needed - currently no acute indication for HD at this time will follow up Total critical care tie spent 35 mins. Patient seen in collaboration with Dr Yudi dale Result Diagram: 12/05/18 0330 12/05/18 0330 Results 24hrs Laboratory Tests Test 12/04/18 12:29 12/04/18 17:42 12/04/18 21:27 12/05/18 01:01 Bedside Glucose 104 106 114 113 Test 12/05/18 03:30 12/05/18 05:53 12/05/18 08:55 White Blood Count 9.5 # Red Blood Count 3.82 L Hemoglobin 8.3 L Hematocrit 31.4 L Mean Corpuscular 82.2 Volume Mean Corpuscular 21.7 L Hemoglobin Mean Corpuscular 26.4 L Hemoglobin Concent Red Cell 31.5 H Distribution Width Platelet Count 223 Mean Platelet Volume Immature 0.500 H Granulocytes % Neutrophils % 81.0 H Lymphocytes % 10.0 L Monocytes % 4.9 Eosinophils % 3.3 Basophils % 0.3 Nucleated Red Blood 0.0 Cells % Immature 0.050 H Granulocytes # Neutrophils # 7.7 H Lymphocytes # 1.0 Monocytes # 0.5 Eosinophils # 0.3 Basophils # 0.0 Nucleated Red Blood 0.0 Cells # Sodium Level 143 Potassium Level 2.9 *L Chloride Level 100 Carbon Dioxide Level 34 H Anion Gap 9 Blood Urea Nitrogen 71 H Creatinine 2.46 H Est Glomerular Filtrat Rate mL/min Glucose Level 110 Calcium Level 8.4 Total Bilirubin 0.2 Direct Bilirubin 0.00 Indirect Bilirubin 0.2 Aspartate Amino 27 Transf (AST/SGOT) Alanine 27 Aminotransferase (AL T/SGPT) Alkaline Phosphatase 56 Total Protein 5.8 L Albumin 2.8 L Globulin 3.00 Albumin/Globulin 0.93 Ratio Bedside Glucose 127 114 Consultation Date/Type/Reason Admit Date/Time Nov 23, 2018 at 22:01 Initial Consult Date 11/24/18 Type of Consult NEPHROLOGY Reason for Consultation RENAL INSUFFICIENCY Requesting Provider: NAYANA GARCIA 24 HR Interval Summary Subjective hx not possible: pt non-verbal Constitutional: requiring IVF, requiring O2 Exam/Review of Systems Vital Signs Vitals Vital Signs Date Temp Pulse Resp B/P (MAP) Pulse Ox O2 O2 Flow FiO2 Time Delivery Rate 12/05/18 67 18 91/43 (59) 98 10:30 12/05/18 Mechanical 10:00 Ventilator 12/05/18 98.4 08:00 12/05/18 40 08:00 Intake and Output 12/04/18 12/04/18 12/05/18 1515:00 23:00 07:00 IntakeIntake Total 443.00 ml 427.50 ml 556.28 ml OutputOutput Total 950 ml 745 ml 470 ml BalanceBalance -507.00 ml -317.50 ml 86.28 ml Medications Medications Current Medications Acetaminophen (Tylenol Liquid) 650 mg Q6H PRN PO PAIN LEVEL 1-3 OR FEVER Last administered on 12/02/18at 02:31; Admin Dose 650 MG; Start 11/23/18 at 22:30 Acetaminophen (Tylenol Supp) 650 mg Q4H PRN [place] PAIN LEVEL 1-3 OR FEVER Last administered on 12/02/18at 21:21; Admin Dose 650 MG; Start 11/23/18 at 22:30 Atorvastatin Calcium (Lipitor) 20 mg HS PO Last administered on 12/04/18at 21:32; Admin Dose 20 MG; Start 11/24/18 at 21:00 Albuterol/ Ipratropium (Duoneb) 3 ml Q4H RESP THERAPY PRN HHN SHORTNESS OF BREATH; Start 11/24/18 at 09:00 Aripiprazole (Abilify) 5 mg DAILY PO Last administered on 12/05/18at 08:06; Admin Dose 5 MG; Start 11/24/18 at 09:30 Digoxin (Digoxin) 0.25 mg DAILY@1300 PO Last administered on 11/26/18at 13:41; Admin Dose 0.25 MG; Start 11/24/18 at 13:00; Status Hold Escitalopram Oxalate (Lexapro) 20 mg DAILY PO Last administered on 12/05/18at 08:06; Admin Dose 20 MG; Start 11/24/18 at 09:30 Loratadine (Claritin) 10 mg DAILY PO Last administered on 12/05/18at 08:06; Admin Dose 10 MG; Start 11/24/18 at 10:00 Multivitamins Therapeutic (Theragran) 1 tab DAILY PO Last administered on 12/05/18at 08:06; Admin Dose 1 TAB; Start 11/24/18 at 09:30 Potassium Chloride (Micro-K) 8 meq DAILY PO Last administered on 11/24/18at 10:12; Admin Dose 8 MEQ; Start 11/24/18 at 10:00; Status Hold Tamsulosin HCl (Flomax) 0.4 mg HS PO Last administered on 12/04/18at 21:32; Admin Dose 0.4 MG; Start 11/24/18 at 21:00 Calcium/Vitamin D (Oyster Shell/ Vit-D (500/200)) 1 tab DAILY PO Last administered on 12/05/18at 08:06; Admin Dose 1 TAB; Start 11/24/18 at 09:30 Metoprolol Tartrate (Lopressor) 5 mg Q4H PRN IV HR>110 Hold SBP<100; Start 11/24/18 at 11:00 Diltiazem HCl (Cardizem Sr) 120 mg DAILY PO ; Start 11/25/18 at 14:00; Status Hold Cefepime HCl 50 ml @ 100 mls/hr Q24H IVPB Last administered on 12/04/18at 12:20; Admin Dose 100 MLS/HR; Start 11/26/18 at 12:00 IV Flush (NS 10 ml) 10 ml PRN PRN IV IV PROTOCOL; Start 11/25/18 at 16:00 Hydralazine HCl (Apresoline) 25 mg Q8 PO Last administered on 12/01/18at 05:36; Admin Dose 25 MG; Start 11/26/18 at 22:00 Pantoprazole (Protonix Iv) 40 mg DAILY@06 IV Last administered on 12/05/18at 05:49; Admin Dose 40 MG; Start 11/29/18 at 06:00 Enoxaparin Sodium (Lovenox) 30 mg DAILY SC Last administered on 12/05/18at 09:06; Admin Dose 30 MG; Start 11/30/18 at 09:00 Diagnostic Test (Pha) (Accu-Chek) 1 ea 02 XX Last administered on 12/05/18at 01 :03; Admin Dose 1 EA; Start 12/01/18 at 02:00 Insulin Aspart (Novolog Insulin Pen) (Adult SC Insulin - Mild Algorithm)... Q4 SC ; Start 11/30/18 at 09:00 Miscellaneous Information 1 ea NOTE XX ; Start 11/30/18 at 08:00 Glucose (Glutose) 15 gm Q15M PRN PO DECREASED GLUCOSE; Start 11/30/18 at 08:00 Glucose (Glutose) 22.5 gm Q15M PRN PO DECREASED GLUCOSE; Start 11/30/18 at 08:00 Dextrose (D50w Syringe) 25 ml Q15M PRN IV DECREASED GLUCOSE; Start 11/30/18 at 08:00 Dextrose (D50w Syringe) 50 ml Q15M PRN IV DECREASED GLUCOSE; Start 11/30/18 at 08:00 Glucagon (Glucagen) 1 mg Q15M PRN IM DECREASED GLUCOSE; Start 11/30/18 at 08:00 Glucose (Glutose) 15 gm Q15M PRN BUCCAL DECREASED GLUCOSE; Start 11/30/18 at 08:00 Aspirin (Aspirin) 325 mg DAILY NGT Last administered on 12/05/18at 08:06; Admin Dose 325 MG; Start 11/30/18 at 12:00 Dextrose 1,000 ml @ 100 mls/hr Q10H IV Last administered on 12/04/18at 01:25; Admin Dose 100 MLS/HR; Start 11/30/18 at 15:30; Status Hold Midazolam HCl 50 ml @ 1 mls/hr TITRATE IV Last administered on 12/03/18at 03:19; Admin Dose 4 MLS/HR; Start 12/02/18 at 07:00 Norepinephrine 16 mg/Dextrose 500 ml @ 1.88 mls/hr TITRATE IV Last administered on 12/02/18at 10:03; Admin Dose 9.383 MLS/HR; Start 12/02/18 at 09:30 Fentanyl 100 ml @ 2.5 mls/hr TITRATE IV Last administered on 12/04/18at 17:18; Admin Dose 2.5 MLS/HR; Start 12/02/18 at 10:30 Acetaminophen (Tylenol Tab) 650 mg Q4H PRN PO mild pain Last administered on 12/05/18at 01:13; Admin Dose 650 MG; Start 12/02/18 at 12:00 Morphine Sulfate (morphine) 2 mg Q2H PRN IV moderate to severe pain; Start 12/02/18 at 12:00 Al Hydrox/Mg Hydrox/Simethicone (Mag-Al Plus) 30 ml Q4H PRN PO GASTROINTESTINAL UPSET; Start 12/02/18 at 12:00 Ondansetron HCl (Zofran Inj) 4 mg Q4H PRN IV NAUSEA AND/OR VOMITING; Start 12/02/18 at 12:00 Collagenase (Santyl) 1 applic DAILY TOP Last administered on 12/05/18at 08:06; Admin Dose 1 APPLIC; Start 12/03/18 at 14:00 Furosemide (Lasix) 40 mg BID DIURETICS IV Last administered on 12/04/18at 18:23; Admin Dose 40 MG; Start 12/04/18 at 09:30 DORIAN MOSS Dec 05, 2018 11:51
--- NOTE | 2018-12-05 14:18 | CONS ---
Date/Time of Note Date/Time of Note DATE: 12/05/18 TIME: 14:16 Assessment/Plan Assessment/Plan Hospital Course IMPRESSION: 1. Non-ST elevation myocardial infarction, currently down trending cardiac enzymes likely a type 2 demand infarct in the setting of fevers, hypercarbic respiratory failure.-downtrended cardiac enzymes. NO cp. Echo this admit 11/24 with NL EF 55%. Now s/p LHC 12/02 with no sig major epicardial obstructive cad. LVEDP 21 2. Abnormal electrocardiogram. 3. Right bundle branch block. 4. Colonic mass s/p stent placement 5. Anemia. 6. Renal failure-worsening 7. Leukocytosis. 8. Coagulopathy. 9. Sepsis. 10. Atrial fibrillation-now in SR 11.CHF-diastolic acute on chronic 12. Resp failure s/p intubation 14. Hypotension on levophed 15. PTX Recc: -ICU -Continue asa/statin -Wean pressors as tolerated -Continue broad spectrum abx's and f/u cx data -wean vent as possible -Continue lasix diuresis -replete KCL -continue asa Result Diagram: 12/05/18 0330 12/05/18 0330 Results 24hrs Laboratory Tests Test 12/04/18 17:42 12/04/18 21:27 12/05/18 01:01 12/05/18 03:30 Bedside Glucose 106 114 113 White Blood Count 9.5 # Red Blood Count 3.82 L Hemoglobin 8.3 L Hematocrit 31.4 L Mean Corpuscular 82.2 Volume Mean Corpuscular 21.7 L Hemoglobin Mean Corpuscular 26.4 L Hemoglobin Concen t Red Cell 31.5 H Distribution Width Platelet Count 223 Mean Platelet Volume Immature 0.500 H Granulocytes % Neutrophils % 81.0 H Lymphocytes % 10.0 L Monocytes % 4.9 Eosinophils % 3.3 Basophils % 0.3 Nucleated Red 0.0 Blood Cells % Immature 0.050 H Granulocytes # Neutrophils # 7.7 H Lymphocytes # 1.0 Monocytes # 0.5 Eosinophils # 0.3 Basophils # 0.0 Nucleated Red 0.0 Blood Cells # Sodium Level 143 Potassium Level 2.9 *L Chloride Level 100 Carbon Dioxide 34 H Level Anion Gap 9 Blood Urea 71 H Nitrogen Creatinine 2.46 H Est Glomerular Filtrat Rate mL/min Glucose Level 110 Calcium Level 8.4 Total Bilirubin 0.2 Direct Bilirubin 0.00 Indirect 0.2 Bilirubin Aspartate Amino 27 Transf (AST/SGOT) Alanine 27 Aminotransferase (ALT/SGPT) Alkaline 56 Phosphatase Total Protein 5.8 L Albumin 2.8 L Globulin 3.00 Albumin/Globulin 0.93 Ratio Test 12/05/18 05:53 12/05/18 08:55 12/05/18 12:00 12/05/18 12:51 Bedside Glucose 127 114 113 Blood Gas Blood arterial Specimen Source Arterial Blood 12/05/2018 12:05: Date Drawn 23 PM Arterial Blood pH 7.348 L (Temp corrected) Arterial Blood 64.2 H pCO2 (Temp correct) Arterial Blood 74.9 L pO2 (Temp corrected) Arterial Blood 34.5 H HCO3 Arterial Blood 7.4 H Base Excess Arterial Blood 94.1 L Oxygen Saturation Nilson Test N/A Arterial Blood Right Brachial Gas Puncture Site Arterial 0.8 Blood Carboxyhemo globin Arterial Blood 0.3 Methemoglobin Blood Gas A-a O2 136.5 H Differential Oxyhemoglobin 93.1 Percent Blood Gas 37.0 Temperature Blood Gas Actual 20 Respiration Rate Blood Gas VENT - CPAP Modality FiO2 40.0 Blood Gas Tidal 475.0 Volume Blood Gas Low 5.0 PEEP Setting Blood Gas 10 Pressure Support Blood Gas N. HAWKINS CN Critical Value Read Back Blood Gas RDIX Notified Whom Blood Gas 12/05/2018 12:23: Notified Time 53 PM Consultation Date/Type/Reason Admit Date/Time Nov 23, 2018 at 22:01 Initial Consult Date 11/24/18 Type of Consult cardiology Reason for Consultation Nstemi Requesting Provider: NAYANA GARCIA Exam/Review of Systems Vital Signs Vitals Vital Signs Date Temp Pulse Resp B/P (MAP) Pulse Ox O2 O2 Flow FiO2 Time Delivery Rate 12/05/18 68 12:00 12/05/18 18 91/43 (59) 98 10:30 12/05/18 Mechanical 10:00 Ventilator 12/05/18 98.4 08:00 12/05/18 40 08:00 Intake and Output 12/04/18 12/04/18 12/05/18 1515:00 23:00 07:00 IntakeIntake Total 443.00 ml 427.50 ml 556.28 ml OutputOutput Total 950 ml 745 ml 470 ml BalanceBalance -507.00 ml -317.50 ml 86.28 ml Exam Review of Systems: CONSTITUTIONAL: No fevers, chills. PULMONARY: intubated CARDIOVASCULAR: No chest pain/palpitations GASTROINTESTINAL: No nausea/vomiting. GENITOURINARY: No hematuria/dysuria. MUSCULOSKELETAL: No myagias/arthalgias. PSYCHIATRIC: The patient denies depression. NEUROLOGIC: No weakness Constitutional: other (sedated) Psych: no complaints Head: normocephalic ENMT: intubated Neck: supple, jvd (9 cm water) Respiratory: diminished breath sounds (at bases/B) Cardiovascular: regular rate and rhythm Gastrointestinal: soft, non-tender Musculoskeletal: muscle weakness (generalized) Extremities: edema (trace/B) Neurological: other (No focal deficits) Medications Medications Current Medications Acetaminophen (Tylenol Liquid) 650 mg Q6H PRN PO PAIN LEVEL 1-3 OR FEVER Last administered on 12/02/18 02:31; Admin Dose 650 MG; Start 11/23/18 at 22:30 Acetaminophen (Tylenol Supp) 650 mg Q4H PRN SD PAIN LEVEL 1-3 OR FEVER Last administered on 12/02/18 21:21; Admin Dose 650 MG; Start 11/23/18 at 22:30 Atorvastatin Calcium (Lipitor) 20 mg HS PO Last administered on 12/04/18 21:32; Admin Dose 20 MG; Start 11/24/18 at 21:00 Albuterol/ Ipratropium (Duoneb) 3 ml Q4H RESP THERAPY PRN HHN SHORTNESS OF BREATH; Start 11/24/18 at 09:00 Aripiprazole (Abilify) 5 mg DAILY PO Last administered on 12/05/18 08:06; Admin Dose 5 MG; Start 11/24/18 at 09:30 Digoxin (Digoxin) 0.25 mg DAILY@1300 PO Last administered on 11/26/18 13:41; Admin Dose 0.25 MG; Start 11/24/18 at 13:00; Status Hold Escitalopram Oxalate (Lexapro) 20 mg DAILY PO Last administered on 12/05/18 08:06; Admin Dose 20 MG; Start 11/24/18 at 09:30 Loratadine (Claritin) 10 mg DAILY PO Last administered on 12/05/18 08:06; Admin Dose 10 MG; Start 11/24/18 at 10:00 Multivitamins Therapeutic (Theragran) 1 tab DAILY PO Last administered on 12/05/18at 08:06; Admin Dose 1 TAB; Start 11/24/18 at 09:30 Potassium Chloride (Micro-K) 8 meq DAILY PO Last administered on 11/24/18at 10:12; Admin Dose 8 MEQ; Start 11/24/18 at 10:00; Status Hold Tamsulosin HCl (Flomax) 0.4 mg HS PO Last administered on 12/04/18at 21:32; Admin Dose 0.4 MG; Start 11/24/18 at 21:00 Calcium/Vitamin D (Oyster Shell/ Vit-D (500/200)) 1 tab DAILY PO Last administered on 12/05/18at 08:06; Admin Dose 1 TAB; Start 11/24/18 at 09:30 Metoprolol Tartrate (Lopressor) 5 mg Q4H PRN IV HR>110 Hold SBP<100; Start 11/24/18 at 11:00 Diltiazem HCl (Cardizem Sr) 120 mg DAILY PO ; Start 11/25/18 at 14:00; Status Hold Cefepime HCl 50 ml @ 100 mls/hr Q24H IVPB Last administered on 12/04/18at 12:20; Admin Dose 100 MLS/HR; Start 11/26/18 at 12:00 IV Flush (NS 10 ml) 10 ml PRN PRN IV IV PROTOCOL; Start 11/25/18 at 16:00 Hydralazine HCl (Apresoline) 25 mg Q8 PO Last administered on 12/01/18at 05:36; Admin Dose 25 MG; Start 11/26/18 at 22:00 Pantoprazole (Protonix Iv) 40 mg DAILY@06 IV Last administered on 12/05/18at 05:49; Admin Dose 40 MG; Start 11/29/18 at 06:00 Enoxaparin Sodium (Lovenox) 30 mg DAILY SC Last administered on 12/05/18at 09:06; Admin Dose 30 MG; Start 11/30/18 at 09:00 Diagnostic Test (Pha) (Accu-Chek) 1 ea 02 XX Last administered on 12/05/18at 01:03; Admin Dose 1 EA; Start 12/01/18 at 02:00 Insulin Aspart (Novolog Insulin Pen) (Adult SC Insulin - Mild Algorithm)... Q4 SC ; Start 11/30/18 at 09:00 Miscellaneous Information 1 ea NOTE XX ; Start 11/30/18 at 08:00 Glucose (Glutose) 15 gm Q15M PRN PO DECREASED GLUCOSE; Start 11/30/18 at 08:00 Glucose (Glutose) 22.5 gm Q15M PRN PO DECREASED GLUCOSE; Start 11/30/18 at 08:00 Dextrose (D50w Syringe) 25 ml Q15M PRN IV DECREASED GLUCOSE; Start 11/30/18 at 08:00 Dextrose (D50w Syringe) 50 ml Q15M PRN IV DECREASED GLUCOSE; Start 11/30/18 at 08:00 Glucagon (Glucagen) 1 mg Q15M PRN IM DECREASED GLUCOSE; Start 11/30/18 at 08:00 Glucose (Glutose) 15 gm Q15M PRN BUCCAL DECREASED GLUCOSE; Start 11/30/18 at 08:00 Aspirin (Aspirin) 325 mg DAILY NGT Last administered on 12/05/18at 08:06; Admin Dose 325 MG; Start 11/30/18 at 12:00 Dextrose 1,000 ml @ 100 mls/hr Q10H IV Last administered on 12/04/18at 01:25; Admin Dose 100 MLS/HR; Start 11/30/18 at 15:30; Status Hold Midazolam HCl 50 ml @ 1 mls/hr TITRATE IV Last administered on 12/03/18at 03:19; Admin Dose 4 MLS/HR; Start 12/02/18 at 07:00 Norepinephrine 16 mg/Dextrose 500 ml @ 1.88 mls/hr TITRATE IV Last adm inistered on 12/02/18at 10:03; Admin Dose 9.383 MLS/HR; Start 12/02/18 at 09:30 Fentanyl 100 ml @ 2.5 mls/hr TITRATE IV Last administered on 12/04/18at 17:18; Admin Dose 2.5 MLS/HR; Start 12/02/18 at 10:30 Acetaminophen (Tylenol Tab) 650 mg Q4H PRN PO mild pain Last administered on 12/05/18at 01:13; Admin Dose 650 MG; Start 12/02/18 at 12:00 Morphine Sulfate (morphine) 2 mg Q2H PRN IV moderate to severe pain; Start 12/02/18 at 12:00 Al Hydrox/Mg Hydrox/Simethicone (Mag-Al Plus) 30 ml Q4H PRN PO GASTROINTESTINAL UPSET; Start 12/02/18 at 12:00 Ondansetron HCl (Zofran Inj) 4 mg Q4H PRN IV NAUSEA AND/OR VOMITING; Start 12/02/18 at 12:00 Collagenase (Santyl) 1 applic DAILY TOP Last administered on 12/05/18at 08:06; Admin Dose 1 APPLIC; Start 12/03/18 at 14:00 Furosemide (Lasix) 40 mg BID DIURETICS IV Last administered on 12/04/18at 18:23; Admin Dose 40 MG; Start 12/04/18 at 09:30 TWAN ESTEVEZ Dec 05, 2018 14:18
[2018-12-05] MEDS: CEFEPIME 2GM/50 ML IVPB SCH (14:30)
--- NOTE | 2018-12-05 15:52 | GILP ---
DATE OF PROCEDURE: 12/03/2018 NAME OF PROCEDURE: Colonoscopy and deployment of colonic metal stents. PREOPERATIVE DIAGNOSIS: The patient is presenting with history of anemia and colonoscopy showed evid ence of an apple core lesion in the sigmoid colon and because of this apple core lesion, the patient is unable to have bowel movements. The patient is not a surgical candidate because of recent myocard ial infarction. Because of this temporary palliation, colonic metal stent needs to be placed. POSTOPERATIVE DIAGNOSIS: The patient is presenting with history of anemia and colonoscopy showed camron dence of an apple core lesion in the sigmoid colon and because of this apple core lesion, the patient is unable to have bowel movements. The patient is not a surgical candidate because of recent myocar dial infarction. Because of this temporary palliation, colonic metal stent needs to be placed. A 25 x 120 self-expanding metal stent was placed. DESCRIPTION OF PROCEDURE: After informed written consent was obtained while the patient was intubate d by anesthesiologist, Dr. Reid, Olympus video colonoscope was inserted into the rectum. It is a pediatric colonoscope and at about 20 cm from the anus, there is evidence of mass noted although the mass a stenotic, scope was gently advanced through the stricture into the colon proximal to the lesio n. The stricture probably measures about 8 cm in length. This is an approximate length. At this ti me, the guidewire was inserted through the scope through the stricture into the colon proximal to the malignant stricture. Scope was withdrawn. At this time, regular colonoscope was used. The guidewi re was inserted through the scope and the stent was grabbed and the guidewire was brought out through the colonic channel which is a biopsy channel. Scope was reintroduced into the sigmoid colon area. At this time, it was made sure that I see the tumor which is distal part of the tumor very clearly. Now, 25 x 120 self-expanding wall metal stent was inserted over the wire through the biopsy channel of the scope and the stent was advanced through the stricture for about 2 to 3 cm proximal to the pro ximal end of this malignant stricture. Slow deployment was carried out. The proximal end of the met al stent was found to be opening up and again deployment was carried out until the distal end of this metal stent was widely open. Several photographs were obtained. On the fluoroscopy, this metal roshni nt was found to be in the proper position. The scope was withdrawn and the procedure was terminated. PLAN: I recommend to resume the G-tube feeding. Dictated By: FRANCE PAREDES/JOANN Conf#: [id number] DID#: [id number] CC: AJ PIERRE MD; MARILEE CHAVEZ MD; TWAN PATTERSON MD;*EndCC*
--- NOTE | 2018-12-05 16:53 | PN ---
Date/Time of Note Date/Time of Note DATE: 12/05/18 TIME: 16:51 Assessment/Plan VTE Prophylaxis Risk score (from Ns)>0 risk: 11 SCD applied (from Ns): No SCD contraindicated: low risk/ambulating Pharmacological prophylaxis: LMWH Lines/Catheters IV C[facility]ter Type [facility]from [facility] Central Line Central line still needed: Yes Urinary Cath still in place: Yes Reason Cath still needed: urinary retention Assessment/Plan Assessment/Plan 78-year-old male recently diagnosed with new colon mass, who presents with: # Hypoxic and hypercapnic respiratory failure: Appears to be due to pulmonary edema and possible pneumonia. - Failed BiPAP, intubated 12/02. - continue IV antibiotics - Currently requiring pressors. - Daily weaning trials per pulmonary. # Sepsis: As evidenced by fever and tachycardia: Secondary to pneumonia -Again, continue broad-spectrum IV antibiotics -Follow-up final respiratory and blood culture results # Cardiac- elevated troponins: - Got cardiac cath 12/02, clear coronaries. # Sigmoid mass: Status post biopsy during recent hospitalization. 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 - Mass is almost completely obstructive. Because the patient is too unstable for surgery, plan for palliative rectal stent. Dr. Fang consulted. - Per discussion with Dr. Juan on 12/01, patient is not currently a surgical candidate due to his acute illness but may get surgery if he improves. # Atrial fibrillation with RVR -resolved now -Continue to monitor, patient on beta-esther and digoxin, follow-up cardiology recommendations # Renal insufficiency: Oliguric acute on chronic renal failure - This was likely due to obstructive uropathy - Now that [place] is back in, patient is having post-obstructive diuresis and significant improvement in Cr. #Hypernatremia, resolving. - Likely from postobstructive diuresis. - Will stop D5W, switch to free water flushes via NGt # Diabetes: Sugar stable, continue insulin while in-house DVT: lovenox GI: PPI Code status: Full. Family wants everything done to treat his multiorgan failure and cancer. Result Diagram: 1/13/19 0330 12/05/18 1407 Results 24hrs Laboratory Tests Test 12/04/18 17:42 12/04/18 21:27 12/05/18 01:01 12/05/18 03:30 Bedside Glucose 106 114 113 White Blood Count 9.5 # Red Blood Count 3.82 L Hemoglobin 8.3 L Hematocrit 31.4 L Mean Corpuscular 82.2 Volume Mean Corpuscular 21.7 L Hemoglobin Mean Corpuscular 26.4 L Hemoglobin Concen t Red Cell 31.5 H Distribution Width Platelet Count 223 Mean Platelet Volume Immature 0.500 H Granulocytes % Neutrophils % 81.0 H Lymphocytes % 10.0 L Monocytes % 4.9 Eosinophils % 3.3 Basophils % 0.3 Nucleated Red 0.0 Blood Cells % Immature 0.050 H Granulocytes # Neutrophils # 7.7 H Lymphocytes # 1.0 Monocytes # 0.5 Eosinophils # 0.3 Basophils # 0.0 Nucleated Red 0.0 Blood Cells # Sodium Level 143 Potassium Level 2.9 *L Chloride Level 100 Carbon Dioxide 34 H Level Anion Gap 9 Blood Urea 71 H Nitrogen Creatinine 2.46 H Est Glomerular Filtrat Rate mL/min Glucose Level 110 Calcium Level 8.4 Total Bilirubin 0.2 Direct Bilirubin 0.00 Indirect 0.2 Bilirubin Aspartate Amino 27 Transf (AST/SGOT) Alanine 27 Aminotransferase (ALT/SGPT) Alkaline 56 Phosphatase Total Protein 5.8 L Albumin 2.8 L Globulin 3.00 Albumin/Globulin 0.93 Ratio Test 12/05/18 05:53 12/05/18 08:55 12/05/18 12:00 12/05/18 12:51 Bedside Glucose 127 114 113 Blood Gas Blood arterial Specimen Source Arterial Blood 12/05/2018 12:05: Date Drawn 23 PM Arterial Blood pH 7.348 L (Temp corrected) Arterial Blood 64.2 H pCO2 (Temp correct) Arterial Blood 74.9 L pO2 (Temp corrected) Arterial Blood 34.5 H HCO3 Arterial Blood 7.4 H Base Excess Arterial Blood 94.1 L Oxygen Saturation Nilson Test N/A Arterial Blood Right Brachial Gas Puncture Site Arterial 0.8 Blood Carboxyhemo globin Arterial Blood 0.3 Methemoglobin Blood Gas A-a O2 136.5 H Differential Oxyhemoglobin 93.1 Percent Blood Gas 37.0 Temperature Blood Gas Actual 20 Respiration Rate Blood Gas VENT - CPAP Modality FiO2 40.0 Blood Gas Tidal 475.0 Volume Blood Gas Low 5.0 PEEP Setting Blood Gas 10 Pressure Support Blood Gas JulietRonni HAWKINS LUANN Critical Value Read Back Blood Gas RDIX Notified Whom Blood Gas 12/05/2018 12:23: Notified Time 53 PM Test 12/05/18 14:07 Sodium Level 142 Potassium Level 3.7 Chloride Level 100 Carbon Dioxide 32 H Level Anion Gap 10 Blood Urea 74 H Nitrogen Creatinine 2.80 H Est Glomerular Filtrat Rate mL/min Glucose Level 100 Calcium Level 8.4 Magnesium Level 2.4 Subjective 24 Hr Interval Summary Free Text/Dictation Sedation held late, no weaning trial. No acute overnight events. Exam/Review of Systems Vital Signs Vitals Vital Signs Date Temp Pulse Resp B/P (MAP) Pulse Ox O2 O2 Flow FiO2 Time Delivery Rate 12/05/18 40 16:00 12/05/18 87 27 102/47 95 15:15 (65) 12/05/18 Mechanical 15:00 Ventilator 12/05/18 98.6 12:00 Intake and Output 12/04/18 12/04/18 12/05/18 1515:00 23:00 07:00 IntakeIntake Total 443.00 ml 427.50 ml 556.28 ml OutputOutput Total 950 ml 745 ml 470 ml BalanceBalance -507.00 ml -317.50 ml 86.28 ml Exam Const: Obese man sedated, intubated, unresponsive. Head: Atraumatic, normocephalic Eyes: Normal Conjunctiva, PERRLA, EOMI, normal sclera, no nystagmus ENT: Normal External Ears, Nose and Mouth, dry mucus membranes. Neck: Supple Resp: Mechanical breath sounds throughout, although diminished on R side. No crackles or wheezes. Cardio: Regular rate and rhythm, no murmurs, S1 S2 present Abd: Soft, slight distention. Normal bowel sounds, no guarding or rebound Ext: No cyanosis, or edema Medications Medications Current Medications Acetaminophen (Tylenol Liquid) 650 mg Q6H PRN PO PAIN LEVEL 1-3 OR FEVER Last administered on 12/02/18at 02:31; Admin Dose 650 MG; Start 11/23/18 at 22:30 Acetaminophen (Tylenol Supp) 650 mg Q4H PRN MA PAIN LEVEL 1-3 OR FEVER Last administered on 12/02/18 21:21; Admin Dose 650 MG; Start 11/23/18 at 22:30 Atorvastatin Calcium (Lipitor) 20 mg HS PO Last administered on 12/04/18 21:32; Admin Dose 20 MG; Start 11/24/18 at 21:00 Albuterol/ Ipratropium (Duoneb) 3 ml Q4H RESP THERAPY PRN HHN SHORTNESS OF BREATH; Start 11/24/18 at 09:00 Aripiprazole (Abilify) 5 mg DAILY PO Last administered on 12/05/18 08:06; Admin Dose 5 MG; Start 11/24/18 at 09:30 Digoxin (Digoxin) 0.25 mg DAILY@1300 PO Last administered on 11/26/18 13:41; Admin Dose 0.25 MG; Start 11/24/18 at 13:00; Status Hold Escitalopram Oxalate (Lexapro) 20 mg DAILY PO Last administered on 12/05/18 08:06; Admin Dose 20 MG; Start 11/24/18 at 09:30 Loratadine (Claritin) 10 mg DAILY PO Last administered on 12/05/18 08:06; Admin Dose 10 MG; Start 11/24/18 at 10:00 Multivitamins Therapeutic (Theragran) 1 tab DAILY PO Last administered on 12/05/18 08:06; Admin Dose 1 TAB; Start 11/24/18 at 09:30 Potassium Chloride (Micro-K) 8 meq DAILY PO Last administered on 11/24/18 10:12; Admin Dose 8 MEQ; Start 11/24/18 at 10:00; Status Hold Tamsulosin HCl (Flomax) 0.4 mg HS PO Last administered on 12/04/18 21:32; Admin Dose 0.4 MG; Start 11/24/18 at 21:00 Calcium/Vitamin D (Oyster Shell/ Vit-D (500/200)) 1 tab DAILY PO Last administered on 12/05/18 08:06; Admin Dose 1 TAB; Start 11/24/18 at 09:30 Metoprolol Tartrate (Lopressor) 5 mg Q4H PRN IV HR>110 Hold SBP<100; Start 11/24/18 at 11:00 Diltiazem HCl (Cardizem Sr) 120 mg DAILY PO ; Start 11/25/18 at 14:00; Status Hold Cefepime HCl 50 ml @ 100 mls/hr Q24H IVPB Last administered on 12/05/18at 14: 30; Admin Dose 100 MLS/HR; Start 11/26/18 at 12:00 IV Flush (NS 10 ml) 10 ml PRN PRN IV IV PROTOCOL; Start 11/25/18 at 16:00 Hydralazine HCl (Apresoline) 25 mg Q8 PO Last administered on 12/01/18at 05:36; Admin Dose 25 MG; Start 11/26/18 at 22:00 Pantoprazole (Protonix Iv) 40 mg DAILY@06 IV Last administered on 12/05/18at 05:49; Admin Dose 40 MG; Start 11/29/18 at 06:00 Enoxaparin Sodium (Lovenox) 30 mg DAILY SC Last administered on 12/05/18at 09:06; Admin Dose 30 MG; Start 11/30/18 at 09:00 Diagnostic Test (Pha) (Accu-Chek) 1 ea 02 XX Last administered on 12/05/18at 01:03; Admin Dose 1 EA; Start 12/01/18 at 02:00 Insulin Aspart (Novolog Insulin Pen) (Adult SC Insulin - Mild Algorithm)... Q4 SC ; Start 11/30/18 at 09:00 Miscellaneous Information 1 ea NOTE XX ; Start 11/30/18 at 08:00 Glucose (Glutose) 15 gm Q15M PRN PO DECREASED GLUCOSE; Start 11/30/18 at 08:00 Glucose (Glutose) 22.5 gm Q15M PRN PO DECREASED GLUCOSE; Start 11/30/18 at 08:00 Dextrose (D50w Syringe) 25 ml Q15M PRN IV DECREASED GLUCOSE; Start 11/30/18 at 08:00 Dextrose (D50w Syringe) 50 ml Q15M PRN IV DECREASED GLUCOSE; Start 11/30/18 at 08:00 Glucagon (Glucagen) 1 mg Q15M PRN IM DECREASED GLUCOSE; Start 11/30/18 at 08:00 Glucose (Glutose) 15 gm Q15M PRN BUCCAL DECREASED GLUCOSE; Start 11/30/18 at 08:00 Dextrose 1,000 ml @ 100 mls/hr Q10H IV Last administered on 12/04/18at 01:25; Admin Dose 100 MLS/HR; Start 11/30/18 at 15:30; Status Hold Midazolam HCl 50 ml @ 1 mls/hr TITRATE IV Last administered on 12/03/18at 03:19; Admin Dose 4 MLS/HR; Start 12/02/18 at 07:00 Norepinephrine 16 mg/Dextrose 500 ml @ 1.88 mls/hr TITRATE IV Last administered on 12/02/18at 10:03; Admin Dose 9.383 MLS/HR; Start 12/02/18 at 09:30 Fentanyl 100 ml @ 2.5 mls/hr TITRATE IV Last administered on 12/04/18at 17:18; Admin Dose 2.5 MLS/HR; Start 12/02/18 at 10:30 Acetaminophen (Tylenol Tab) 650 mg Q4H PRN PO mild pain Last administered on 12/05/18at 01:13; Admin Dose 650 MG; Start 12/02/18 at 12:00 Morphine Sulfate (morphine) 2 mg Q2H PRN IV moderate to severe pain; Start 12/02/18 at 12:00 Al Hydrox/Mg Hydrox/Simethicone (Mag-Al Plus) 30 ml Q4H PRN PO GASTROINTESTINAL UPSET; Start 12/02/18 at 12:00 Ondansetron HCl (Zofran Inj) 4 mg Q4H PRN IV NAUSEA AND/OR VOMITING; Start 12/02/18 at 12:00 Collagenase (Santyl) 1 applic DAILY TOP Last administered on 12/05/18at 08:06; Admin Dose 1 APPLIC; Start 12/03/18 at 14:00 Furosemide (Lasix) 40 mg BID DIURETICS IV Last administered on 12/04/18at 18:23; Admin Dose 40 MG; Start 12/04/18 at 09:30 Aspirin (Aspirin) 81 mg DAILY NGT ; Start 12/06/18 at 09:00 TWAN PATTERSON MD Dec 05, 2018 16:53
--- NOTE | 2018-12-05 19:00 | NUR ---
EOSS: Patient lying comfortably in bed, AO1, on fentanyl at25 and Levo at 2. Family at bedside throughout shift and updated on patients status. CPAP trial failed due to ABG results after 2 hours of CPAP. MD Neil made aware of results. All care provided for patient according to MD orders. VSS. Report to be given to Pm RN.
[2018-12-05] MEDS: ATORVASTATIN 20 MG TAB PO SCH (21:50)
[2018-12-05] MEDS: TAMSULOSIN (SR) 0.4 MG CAP PO SCH (21:50)
[2018-12-06] VITALS (100 sets, daily range): BP systolic 81–128; BP diastolic 44–71; PULSE 62–89; RESP 0–40
--- NOTE | 2018-12-06 00:25 | NUR ---
zero gastric residual aspirated, TF rate increased to 50 cc/hr
[2018-12-06] MEDS: Insulin NOVOLOG SS MILD Algorithm (NPO/TPN/ENTERAL FEEDS) SC SCH ×6 (00:53→21:00)
[2018-12-06] MEDS: FENTAnyl (DRIP) 1000 mcg/100mL 100 ML IV SCH (00:54)
[2018-12-06] MEDS: ACCU-CHEK XX SCH (01:46)
[2018-12-06] MEDS: PANTOPRAZOLE 40 MG INJ IV SCH (05:36)
[2018-12-06] MEDS: FUROSEMIDE 40 MG INJ IV SCH ×2 (05:56→17:00)
[2018-12-06] MEDS ORDERED: ASPIRIN 325 MG TAB ONE (07:41)
--- NOTE | 2018-12-06 07:45 | PN ---
DATE: 12/05/2018 SUBJECTIVE: The patient still remains intubated and we are in the process of extubating the patient. PHYSICAL EXAMINATION: GENERAL: The patient is alert now. VITAL SIGNS: Pulse is 78, blood pressure is 99/70. CARDIOVASCULAR: Heart sounds are well heard. ABDOMEN: Shows soft abdomen with no palpable masses and no tenderness. Upon discussion with the daren se, I realized that patient had a small bowel movement. LABORATORY WORKUP: WBC count is 9500, hemoglobin is 8.3. CLINICAL IMPRESSION: The patient is presenting with history of colonic mass and on 12/03/2018, I dep loyed colonic metal stent. Now, it appears that metal stent is working and the patient is having bow el movements. PLAN: I recommend a regular p.o. diet. Dictated By: FRANCE BRIGGS MD NC/NTS Conf#: [id number] DID#: [id number] CC: MARILEE CHAVEZ MD; AJ PIERRE MD; TWAN PATTERSON MD;*End*
[2018-12-06] MEDS: ARIPIPRAZOLE 5 MG TAB PO SCH (08:04)
[2018-12-06] MEDS: MULTIVITAMINS THERAPEUTIC TAB PO SCH (08:04)
[2018-12-06] MEDS: ESCITALOPRAM 10 MG TAB PO SCH (08:04)
[2018-12-06] MEDS: ASPIRIN 325 MG TAB NGT SCH (08:04)
[2018-12-06] MEDS: CALCIUM/VITAMIN D (500/200) TAB PO SCH (08:05)
[2018-12-06] MEDS: COLLAGENASE 5 GM (UD JAR) TOP SCH (08:05)
[2018-12-06] MEDS: LORATADINE 10 MG TAB PO SCH (08:05)
[2018-12-06] MEDS: BALSAM PERU/CASTOR OIL 60 GM TUBE TOP SCH ×2 (08:05→21:47)
[2018-12-06] MEDS: ENOXAPARIN 30 MG/0.3 ML SYG SC SCH (08:09)
--- NOTE | 2018-12-06 09:49 | PN ---
Date/Time of Note Date/Time of Note DATE: 12/06/18 TIME: 09:35 Assessment/Plan VTE Prophylaxis Risk score (from [facility])>0 risk: 16 SCD applied (from [facility]): No SCD contraindicated: other Pharmacological prophylaxis: heparin Lines/Catheters IV Catheter Type (from [facility]): Central Line Central line still needed: Yes Urinary Cath still in place: Yes Reason Cath still needed: urinary retention Assessment/Plan Hospital Course S: Patient still on low-dose pressor support, off sedation this morning. Still intubated. No fevers in the last 24 hours. O: VS - see below PE: Const: Lying in bed, family at the bedside Head: Atraumatic, normocephalic Eyes: Normal Conjunctiva, PERRLA, EOMI, normal sclera, no nystagmus ENT: Normal External Ears, Nose and Mouth, moist mucus membranes. Neck: Supple Resp: Some increased work of breathing, still some bilateral rhonchi and wheezes decreased breath sounds in the bases Cardio: Regular rate and rhythm, no murmurs, S1 S2 present Abd: Soft, non tender x 4, slight distention. 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 2D echo November 24, 2018: Conclusions Normal left ventricular systolic function. Normal left ventricular cavity size. Sigmoid septum. Ejection fraction is visually estimated at 55 %. Normal right ventricular systolic function. Moderate enlargement of right ventricle. There is mild enlargement of left atrium. There is mild enlargement of right atrium. Mild mitral leaflet calcification. Mild mitral annular calcification. Trace mitral regurgitation. Normal appearance of the tricuspid valve. There is trace tricuspid regurgitation. Assessment/Plan: 78-year-old male recently diagnosed with new colon mass, who presents with: # Hypoxic and hypercapnic respiratory failure: Appears to be due to pulmonary edema and possible pneumonia- Failed BiPAP, intubated 12/02. Presently on sedation vacation, still intubated. Presently on low-dose levo fed. - continue IV antibiotics - Continue Daily weaning trials per pulmonary. # Sepsis: As evidenced by fever and tachycardia 2-3 days ago: Secondary to pneumonia versus UTI, on low-dose pressor but no fevers in the last 24 hours. -Again, for now continue broad-spectrum IV antibiotics -Follow-up final respiratory culture results, and will check UA and urine culture today as well # Cardiac- elevated troponins: - Got cardiac cath 12/02, clear coronaries. -Continue aspirin and statin for now, follow up cardiology recommendations # Sigmoid mass: Status post biopsy during recent hospitalization. 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 Mass is almost completely obstructive. Patient received rectal stent on December [address] Fang. -Monitor for now, Per discussion between hospitalist and Dr. Juan on 12/01, patient is not currently a surgical candidate due to his acute illness but may get surgery if he improves. # Atrial fibrillation with RVR -resolved now -Continue to monitor, follow-up cardiology recommendations # Renal insufficiency: Oliguric acute on chronic renal failure.c This was likely due to obstructive uropathy Being followed by renal team, presently on Lasix IV twice daily -Continue monitor urine output, Ballard catheter in place, follow-up renal recommendations #Hypernatremia -resolved -Monitor for now # Diabetes: Sugar stable, continue insulin while in-house DVT: Heparin GI: PPI Code status: Full. Family wants everything done to treat his multiorgan failure and cancer. Critical care time spent on patient care today equals 50 minutes. Result Diagram: 12/06/18 0330 12/06/18 0330 Results 24hrs Laboratory Tests Test 12/05/18 12:00 12/05/18 12:51 12/05/18 14:07 12/05/18 18:34 Blood Gas Blood arterial Specimen Source Arterial Blood 12/05/2018 12:05: Date Drawn 23 PM Arterial Blood pH 7.348 L (Temp corrected) Arterial Blood 64.2 H pCO2 (Temp correct) Arterial Blood 74.9 L pO2 (Temp corrected) Arterial Blood 34.5 H HCO3 Arterial Blood 7.4 H Base Excess Arterial Blood 94.1 L Oxygen Saturation Nilson Test N/A Arterial Blood Right Brachial Gas Puncture Site Arterial 0.8 Blood Carboxyhemo globin Arterial Blood 0.3 Methemoglobin Blood Gas A-a O2 136.5 H Differential Oxyhemoglobin 93.1 Percent Blood Gas 37.0 Temperature Blood Gas Actual 20 Respiration Rate Blood Gas VENT - CPAP Modality FiO2 40.0 Blood Gas Tidal 475.0 Volume Blood Gas Low 5.0 PEEP Setting Blood Gas 10 Pressure Support Blood Gas Gualberto KONG Critical Value Read Back Blood Gas RDIX Notified Whom Blood Gas 12/05/2018 12:23: Notified Time 53 PM Bedside Glucose 113 106 Sodium Level 142 Potassium Level 3.7 Chloride Level 100 Carbon Dioxide 32 H Level Anion Gap 10 Blood Urea 74 H Nitrogen Creatinine 2.80 H Est Glomerular Filtrat Rate mL/min Glucose Level 100 Calcium Level 8.4 Magnesium Level 2.4 Test 12/05/18 21:49 12/06/18 00:35 12/06/18 03:30 12/06/18 05:34 Bedside Glucose 111 114 133 White Blood Count 9.3 Red Blood Count 3.81 L Hemoglobin 8.3 L Hematocrit 32.0 L Mean Corpuscular 84.0 Volume Mean Corpuscular 21.8 L Hemoglobin Mean Corpuscular 25.9 L Hemoglobin Concen t Red Cell 30.7 H Distribution Width Platelet Count 207 Mean Platelet Volume Immature 0.500 H Granulocytes % Neutrophils % 76.2 Lymphocytes % 11.9 L Monocytes % 5.8 Eosinophils % 5.4 Basophils % 0.2 Nucleated Red 0.0 Blood Cells % Immature 0.050 H Granulocytes # Neutrophils # 7.1 Lymphocytes # 1.1 Monocytes # 0.5 Eosinophils # 0.5 Basophils # 0.0 Nucleated Red 0.0 Blood Cells # Sodium Level 142 Potassium Level 3.3 L Chloride Level 100 Carbon Dioxide 32 H Level Anion Gap 10 Blood Urea 78 H Nitrogen Creatinine 3.27 H Est Glomerular Filtrat Rate mL/min Glucose Level 110 Calcium Level 8.5 Phosphorus Level 4.6 Magnesium Level 2.3 Total Bilirubin 0.1 L Direct Bilirubin 0.00 Indirect 0.1 Bilirubin Aspartate Amino 26 Transf (AST/SGOT) Alanine 28 Aminotransferase (ALT/SGPT) Alkaline 59 Phosphatase Total Protein 6.2 Albumin 3.0 L Globulin 3.20 Albumin/Globulin 0.93 Ratio Test 12/06/18 08:00 Bedside Glucose 133 Exam/Review of Systems Vital Signs Vitals Vital Signs Date Temp Pulse Resp B/P (MAP) Pulse Ox O2 O2 Flow FiO2 Time Delivery Rate 12/06/18 70 16 85/48 (60) 98 09:15 12/06/18 Mechanical 09:00 Ventilator 12/06/18 98.4 08:00 12/06/18 40 08:00 Intake and Output 12/05/18 12/05/18 12/06/18 1515:00 23:00 07:00 IntakeIntake Total 461.25 ml 370.00 ml 590.00 ml OutputOutput Total 300 ml 390 ml 460 ml BalanceBalance 161.25 ml -20.00 ml 130.00 ml Medications Medications Current Medications Acetaminophen (Tylenol Liquid) 650 mg Q6H PRN PO PAIN LEVEL 1-3 OR FEVER Last administered on 12/02/18at 02:31; Admin Dose 650 MG; Start 11/23/18 at 22:30 Acetaminophen (Tylenol Supp) 650 mg Q4H PRN IN PAIN LEVEL 1-3 OR FEVER Last administered on 12/02/18at 21:21; Admin Dose 650 MG; Start 11/23/18 at 22:30 Atorvastatin Calcium (Lipitor) 20 mg HS PO Last administered on 12/05/18at 21:50; Admin Dose 20 MG; Start 11/24/18 at 21:00 Albuterol/ Ipratropium (Duoneb) 3 ml Q4H RESP THERAPY PRN HHN SHORTNESS OF BREATH; Start 11/24/18 at 09:00 Aripiprazole (Abilify) 5 mg DAILY PO Last administered on 12/06/18 08:04; Admin Dose 5 MG; Start 11/24/18 at 09:30 Digoxin (Digoxin) 0.25 mg DAILY@1300 PO Last administered on 11/26/18 13:41; Admin Dose 0.25 MG; Start 11/24/18 at 13:00; Status Hold Escitalopram Oxalate (Lexapro) 20 mg DAILY PO Last administered on 12/06/18 08:04; Admin Dose 20 MG; Start 11/24/18 at 09:30 Loratadine (Claritin) 10 mg DAILY PO Last administered on 12/06/18 08:05; Admin Dose 10 MG; Start 11/24/18 at 10:00 Multivitamins Therapeutic (Theragran) 1 tab DAILY PO Last administered on 12/06/18 08:04; Admin Dose 1 TAB; Start 11/24/18 at 09:30 Potassium Chloride (Micro-K) 8 meq DAILY PO Last administered on 11/24/18at 10:12; Admin Dose 8 MEQ; Start 11/24/18 at 10:00; Status Hold Tamsulosin HCl (Flomax) 0.4 mg HS PO Last administered on 12/05/18at 21:50; Admin Dose 0.4 MG; Start 11/24/18 at 21:00 Calcium/Vitamin D (Oyster Shell/ Vit-D (500/200)) 1 tab DAILY PO Last administered on 12/06/18at 08:05; Admin Dose 1 TAB; Start 11/24/18 at 09:30 Metoprolol Tartrate (Lopressor) 5 mg Q4H PRN IV HR>110 Hold SBP<100; Start 11/24/18 at 11:00 Diltiazem HCl (Cardizem Sr) 120 mg DAILY PO ; Start 11/25/18 at 14:00; Status Hold Cefepime HCl 50 ml @ 100 mls/hr Q24H IVPB Last administered on 12/05/18at 14:30; Admin Dose 100 MLS/HR; Start 11/26/18 at 12:00 IV Flush (NS 10 ml) 10 ml PRN PRN IV IV PROTOCOL; Start 11/25/18 at 16:00 Hydralazine HCl (Apresoline) 25 mg Q8 PO Last administered on 12/01/18at 05:36; Admin Dose 25 MG; Start 11/26/18 at 22:00 Pantoprazole (Protonix Iv) 40 mg DAILY@06 IV Last administered on 12/06/18at 05:36; Admin Dose 40 MG; Start 11/29/18 at 06:00 Enoxaparin Sodium (Lovenox) 30 mg DAILY SC Last administered on 12/06/18at 08:09; Admin Dose 30 MG; Start 11/30/18 at 09:00 Diagnostic Test (Pha) (Accu-Chek) 1 ea 02 XX Last administered on 12/06/18at 01:46; Admin Dose 1 EA; Start 12/01/18 at 02:00 Insulin Aspart (Novolog Insulin Pen) (Adult SC Insulin - Mild Algorithm)... Q4 SC ; Start 11/30/18 at 09:00 Miscellaneous Information 1 ea NOTE XX ; Start 11/30/18 at 08:00 Glucose (Glutose) 15 gm Q15M PRN PO DECREASED GLUCOSE; Start 11/30/18 at 08:00 Glucose (Glutose) 22.5 gm Q15M PRN PO DECREASED GLUCOSE; Start 11/30/18 at 08:00 Dextrose (D50w Syringe) 25 ml Q15M PRN IV DECREASED GLUCOSE; Start 11/30/18 at 08:00 Dextrose (D50w Syringe) 50 ml Q15M PRN IV DECREASED GLUCOSE; Start 11/30/18 at 0 8:00 Glucagon (Glucagen) 1 mg Q15M PRN IM DECREASED GLUCOSE; Start 11/30/18 at 08:00 Glucose (Glutose) 15 gm Q15M PRN BUCCAL DECREASED GLUCOSE; Start 11/30/18 at 08:00 Dextrose 1,000 ml @ 100 mls/hr Q10H IV Last administered on 12/04/18at 01:25; Admin Dose 100 MLS/HR; Start 11/30/18 at 15:30; Status Hold Midazolam HCl 50 ml @ 1 mls/hr TITRATE IV Last administered on 12/03/18at 03:19; Admin Dose 4 MLS/HR; Start 12/02/18 at 07:00 Norepinephrine 16 mg/Dextrose 500 ml @ 1.88 mls/hr TITRATE IV Last administered on 12/02/18at 10:03; Admin Dose 9.383 MLS/HR; Start 12/02/18 at 09:30 Fentanyl 100 ml @ 2.5 mls/hr TITRATE IV Last administered on 12/06/18at 00:54; Admin Dose 2.5 MLS/HR; Start 12/02/18 at 10:30 Acetaminophen (Tylenol Tab) 650 mg Q4H PRN PO mild pain Last administered on 12/05/18at 01:13; Admin Dose 650 MG; Start 12/02/18 at 12:00 Morphine Sulfate (morphine) 2 mg Q2H PRN IV moderate to severe pain; Start 12/02/18 at 12:00 Al Hydrox/Mg Hydrox/Simethicone (Mag-Al Plus) 30 ml Q4H PRN PO GASTROINTESTINAL UPSET; Start 12/02/18 at 12:00 Ondansetron HCl (Zofran Inj) 4 mg Q4H PRN IV NAUSEA AND/OR VOMITING; Start 12/02/18 at 12:00 Collagenase (Santyl) 1 applic DAILY TOP Last administered on 12/06/18at 08:05; Admin Dose 1 APPLIC; Start 12/03/18 at 14:00 Furosemide (Lasix) 40 mg BID DIURETICS IV Last administered on 12/06/18at 05:56; Admin Dose 40 MG; Start 12/04/18 at 09:30 Aspirin (Aspirin) 81 mg DAILY NGT Last administered on 12/06/18at 08:04; Admin Dose 81 MG; Start 12/06/18 at 09:00 NAYANA GARCIA Dec 06, 2018 09:46
--- NOTE | 2018-12-06 10:00 | CONS ---
Date/Time of Note Date/Time of Note DATE: 12/06/18 TIME: 09:58 Consult Date/Type/Reason Admit Date/Time Nov 23, 2018 at 22:01 Initial Consult Date 11/25/18 Type of Consultation: Pulm/CCM Requesting Provider: NAYANA GARCIA Subjective Patient more alert this morning. Opening eyes and following simple commands. Continues low-dose vasopressor support. Family at bedside. Tolerated CPAP yesterday. Objective Vital Signs Date Temp Pulse Resp B/P (MAP) Pulse Ox O2 O2 Flow FiO2 Time Delivery Rate 12/06/18 70 16 85/48 (60) 98 09:15 12/06/18 Mechanical 09:00 Ventilator 12/06/18 98.4 08:00 12/06/18 40 08:00 Intake and Output 12/05/18 12/05/18 12/06/18 1515:00 23:00 07:00 IntakeIntake Total 461.25 ml 370.00 ml 590.00 ml OutputOutput Total 300 ml 390 ml 460 ml BalanceBalance 161.25 ml -20.00 ml 130.00 ml Exam GENERAL: Elderly appearing gentleman orally intubated on mechanical ventilation VITAL SIGNS: per chart NECK: Supple. No JVD or lymphadenopathy. CARDIAC EXAM: S1, S2. No added sounds or murmurs. CHEST: Diminished air entry bilaterally ABDOMEN: Soft, nontender. No guarding or rebound. EXTREMITIES: No cyanosis, clubbing or edema. NEUROLOGIC: Generalized weakness. No focal deficits. Results/Medications Result Diagram: 12/06/18 0330 12/06/18 0330 Results 24 hrs Laboratory Tests Test 12/05/18 12:00 12/05/18 12:51 12/05/18 14:07 12/05/18 18:34 Blood Gas Blood arterial Specimen Source Arterial Blood 12/05/2018 12:05: Date Drawn 23 PM Arterial Blood pH 7.348 L (Temp corrected) Arterial Blood 64.2 H pCO2 (Temp correct) Arterial Blood 74.9 L pO2 (Temp corrected) Arterial Blood 34.5 H HCO3 Arterial Blood 7.4 H Base Excess Arterial Blood 94.1 L Oxygen Saturation Nilson Test N/A Arterial Blood Right Brachial Gas Puncture Site Arterial 0.8 Blood Carboxyhemo globin Arterial Blood 0.3 Methemoglobin Blood Gas A-a O2 136.5 H Differential Oxyhemoglobin 93.1 Percent Blood Gas 37.0 Temperature Blood Gas Actual 20 Respiration Rate Blood Gas VENT - CPAP Modality FiO2 40.0 Blood Gas Tidal 475.0 Volume Blood Gas Low 5.0 PEEP Setting Blood Gas 10 Pressure Support Blood Gas Gualberto KONG Critical Value Read Back Blood Gas RDIX Notified Whom Blood Gas 12/05/2018 12:23: Notified Time 53 PM Bedside Glucose 113 106 Sodium Level 142 Potassium Level 3.7 Chloride Level 100 Carbon Dioxide 32 H Level Anion Gap 10 Blood Urea 74 H Nitrogen Creatinine 2.80 H Est Glomerular Filtrat Rate mL/min Glucose Level 100 Calcium Level 8.4 Magnesium Level 2.4 Test 12/05/18 21:49 12/06/18 00:35 12/06/18 03:30 12/06/18 05:34 Bedside Glucose 111 114 133 White Blood Count 9.3 Red Blood Count 3.81 L Hemoglobin 8.3 L Hematocrit 32.0 L Mean Corpuscular 84.0 Volume Mean Corpuscular 21.8 L Hemoglobin Mean Corpuscular 25.9 L Hemoglobin Concen t Red Cell 30.7 H Distribution Width Platelet Count 207 Mean Platelet Volume Immature 0.500 H Granulocytes % Neutrophils % 76.2 Lymphocytes % 11.9 L Monocytes % 5.8 Eosinophils % 5.4 Basophils % 0.2 Nucleated Red 0.0 Blood Cells % Immature 0.050 H Granulocytes # Neutrophils # 7.1 Lymphocytes # 1.1 Monocytes # 0.5 Eosinophils # 0.5 Basophils # 0.0 Nucleated Red 0.0 Blood Cells # Sodium Level 142 Potassium Level 3.3 L Chloride Level 100 Carbon Dioxide 32 H Level Anion Gap 10 Blood Urea 78 H Nitrogen Creatinine 3.27 H Est Glomerular Filtrat Rate mL/min Glucose Level 110 Calcium Level 8.5 Phosphorus Level 4.6 Magnesium Level 2.3 Total Bilirubin 0.1 L Direct Bilirubin 0.00 Indirect 0.1 Bilirubin Aspartate Amino 26 Transf (AST/SGOT) Alanine 28 Aminotransferase (ALT/SGPT) Alkaline 59 Phosphatase Total Protein 6.2 Albumin 3.0 L Globulin 3.20 Albumin/Globulin 0.93 Ratio Test 12/06/18 08:00 Bedside Glucose 133 Medications Current Medications Acetaminophen (Tylenol Liquid) 650 mg Q6H PRN PO PAIN LEVEL 1-3 OR FEVER Last administered on 12/02/18at 02:31; Admin Dose 650 MG; Start 11/23/18 at 22:30 Acetaminophen (Tylenol Supp) 650 mg Q4H PRN MA PAIN LEVEL 1-3 OR FEVER Last administered on 12/02/18 21:21; Admin Dose 650 MG; Start 11/23/18 at 22:30 Atorvastatin Calcium (Lipitor) 20 mg HS PO Last administered on 12/05/18 21:50; Admin Dose 20 MG; Start 11/24/18 at 21:00 Albuterol/ Ipratropium (Duoneb) 3 ml Q4H RESP THERAPY PRN HHN SHORTNESS OF BREATH; Start 11/24/18 at 09:00 Aripiprazole (Abilify) 5 mg DAILY PO Last administered on 12/06/18 08:04; Admin Dose 5 MG; Start 11/24/18 at 09:30 Digoxin (Digoxin) 0.25 mg DAILY@1300 PO Last administered on 11/26/18 13:41; Admin Dose 0.25 MG; Start 11/24/18 at 13:00; Status Hold Escitalopram Oxalate (Lexapro) 20 mg DAILY PO Last administered on 12/06/18 08:04; Admin Dose 20 MG; Start 11/24/18 at 09:30 Loratadine (Claritin) 10 mg DAILY PO Last administered on 12/06/18 08:05; Admin Dose 10 MG; Start 11/24/18 at 10:00 Multivitamins Therapeutic (Theragran) 1 tab DAILY PO Last administered on 12/06/18 08:04; Admin Dose 1 TAB; Start 11/24/18 at 09:30 Potassium Chloride (Micro-K) 8 meq DAILY PO Last administered on 11/24/18 10:12; Admin Dose 8 MEQ; Start 11/24/18 at 10:00; Status Hold Tamsulosin HCl (Flomax) 0.4 mg HS PO Last administered on 12/05/18 21:50; Admin Dose 0.4 MG; Start 11/24/18 at 21:00 Calcium/Vitamin D (Oyster Shell/ Vit-D (500/200)) 1 tab DAILY PO Last administered on 12/06/18 08:05; Admin Dose 1 TAB; Start 11/24/18 at 09:30 Metoprolol Tartrate (Lopressor) 5 mg Q4H PRN IV HR>110 Hold SBP<100; Start 11/24/18 at 11:00 Diltiazem HCl (Cardizem Sr) 120 mg DAILY PO ; Start 11/25/18 at 14:00; Status Hold Cefepime HCl 50 ml @ 100 mls/hr Q24H IVPB Last administered on 12/05/18at 14: 30; Admin Dose 100 MLS/HR; Start 11/26/18 at 12:00 IV Flush (NS 10 ml) 10 ml PRN PRN IV IV PROTOCOL; Start 11/25/18 at 16:00 Hydralazine HCl (Apresoline) 25 mg Q8 PO Last administered on 12/01/18at 05:36; Admin Dose 25 MG; Start 11/26/18 at 22:00 Pantoprazole (Protonix Iv) 40 mg DAILY@06 IV Last administered on 12/06/18at 05:36; Admin Dose 40 MG; Start 11/29/18 at 06:00 Diagnostic Test (Pha) (Accu-Chek) 1 ea 02 XX Last administered on 12/06/18at 01:46; Admin Dose 1 EA; Start 12/01/18 at 02:00 Insulin Aspart (Novolog Insulin Pen) (Adult SC Insulin - Mild Algorithm)... Q4 SC ; Start 11/30/18 at 09:00 Miscellaneous Information 1 ea NOTE XX ; Start 11/30/18 at 08:00 Glucose (Glutose) 15 gm Q15M PRN PO DECREASED GLUCOSE; Start 11/30/18 at 08:00 Glucose (Glutose) 22.5 gm Q15M PRN PO DECREASED GLUCOSE; Start 11/30/18 at 08:00 Dextrose (D50w Syringe) 25 ml Q15M PRN IV DECREASED GLUCOSE; Start 11/30/18 at 08:00 Dextrose (D50w Syringe) 50 ml Q15M PRN IV DECREASED GLUCOSE; Start 11/30/18 at 08:00 Glucagon (Glucagen) 1 mg Q15M PRN IM DECREASED GLUCOSE; Start 11/30/18 at 08:00 Glucose (Glutose) 15 gm Q15M PRN BUCCAL DECREASED GLUCOSE; Start 11/30/18 at 08:00 Dextrose 1,000 ml @ 100 mls/hr Q10H IV Last administered on 12/04/18at 01:25; Admin Dose 100 MLS/HR; Start 11/30/18 at 15:30; Status Hold Midazolam HCl 50 ml @ 1 mls/hr TITRATE IV Last administered on 12/03/18at 03:19; Admin Dose 4 MLS/HR; Start 12/02/18 at 07:00 Norepinephrine 16 mg/Dextrose 500 ml @ 1.88 mls/hr TITRATE IV Last administe red on 12/02/18at 10:03; Admin Dose 9.383 MLS/HR; Start 12/02/18 at 09:30 Fentanyl 100 ml @ 2.5 mls/hr TITRATE IV Last administered on 12/06/18at 00:54; Admin Dose 2.5 MLS/HR; Start 12/02/18 at 10:30 Acetaminophen (Tylenol Tab) 650 mg Q4H PRN PO mild pain Last administered on 12/05/18at 01:13; Admin Dose 650 MG; Start 12/02/18 at 12:00 Morphine Sulfate (morphine) 2 mg Q2H PRN IV moderate to severe pain; Start 12/02/18 at 12:00 Al Hydrox/Mg Hydrox/Simethicone (Mag-Al Plus) 30 ml Q4H PRN PO GASTROINTESTINAL UPSET; Start 12/02/18 at 12:00 Ondansetron HCl (Zofran Inj) 4 mg Q4H PRN IV NAUSEA AND/OR VOMITING; Start 12/02/18 at 12:00 Collagenase (Santyl) 1 applic DAILY TOP Last administered on 12/06/18at 08:05; Admin Dose 1 APPLIC; Start 12/03/18 at 14:00 Furosemide (Lasix) 40 mg BID DIURETICS IV Last administered on 12/06/18at 05:56; Admin Dose 40 MG; Start 12/04/18 at 09:30 Aspirin (Aspirin) 81 mg DAILY NGT Last administered on 12/06/18at 08:04; Admin Dose 81 MG; Start 12/06/18 at 09:00 Heparin Sodium (Porcine) (Heparin (5000 Units/1ml)) 5,000 unit BID SC ; Start 12/06/18 at 21:00 Assessment/Plan Chief Complaint/Hosp Course IMP: 1. Acute hypoxemic/hypercapnic respiratory failure--most likely due to volume overload +/- pneumonia. Right pleural effusion. Status post thoracentesis. 2. Sigmoid mass, presumed colon cancer with recent severe anemia. Status post stent placement 3. Non-ST elevation myocardial infarction. Status post cardiac cath with no target lesions identified. 4. Atrial fibrillation with rapid ventricular response, now rate controlled 5. Worsening renal failure likely ATN. Possible nephrotoxic injury from contrast for cardiac catheterization 6. Anemia RECS: 1. Continue vent. weaning when hemodynamically stable 2. Continue cardiac recommendations 3. Continue renal recs ? May require hemodialysis. 4. GI recommendations, 5. Continue vasopressor support Critical care time 40 minutes JANNET BERG MD, [facility] Dec 06, 2018 10:00
--- NOTE | 2018-12-06 10:00 | CONS ---
Date/Time of Note Date/Time of Note DATE: 12/06/18 TIME: 09:57 Assessment/Plan Assessment/Plan Hospital Course IMPRESSION: 1. Non-ST elevation myocardial infarction, currently down trending cardiac enzymes likely a type 2 demand infarct in the setting of fevers, hypercarbic respiratory failure.-downtrended cardiac enzymes. NO cp. Echo this admit 11/24 with NL EF 55%. Now s/p LHC 12/02 with no sig major epicardial obstructive cad. LVEDP 21 2. Abnormal electrocardiogram. 3. Right bundle branch block. 4. Colonic mass s/p stent placement 5. Anemia. 6. Renal failure-worsening 7. Leukocytosis. 8. Coagulopathy. 9. Sepsis. 10. Atrial fibrillation-now in SR 11.CHF-diastolic acute on chronic 12. Resp failure s/p intubation 14. Hypotension on levophed 15. PTX Recc: -ICU -Continue asa/statin -Wean pressors as tolerated -Continue broad spectrum abx's and f/u cx data -wean vent as possible -Continue lasix diuresis -continue asa -surgery when stable? Result Diagram: 12/06/18 0330 12/06/18 0330 Results 24hrs Laboratory Tests Test 12/05/18 12:00 12/05/18 12:51 12/05/18 14:07 12/05/18 18:34 Blood Gas Blood arterial Specimen Source Arterial Blood 12/05/2018 12:05: Date Drawn 23 PM Arterial Blood pH 7.348 L (Temp corrected) Arterial Blood 64.2 H pCO2 (Temp correct) Arterial Blood 74.9 L pO2 (Temp corrected) Arterial Blood 34.5 H HCO3 Arterial Blood 7.4 H Base Excess Arterial Blood 94.1 L Oxygen Saturation Nilson Test N/A Arterial Blood Right Brachial Gas Puncture Site Arterial 0.8 Blood Carboxyhemo globin Arterial Blood 0.3 Methemoglobin Blood Gas A-a O2 136.5 H Differential Oxyhemoglobin 93.1 Percent Blood Gas 37.0 Temperature Blood Gas Actual 20 Respiration Rate Blood Gas VENT - CPAP Modality FiO2 40.0 Blood Gas Tidal 475.0 Volume Blood Gas Low 5.0 PEEP Setting Blood Gas 10 Pressure Support Blood Gas Gualberto KONG Critical Value Read Back Blood Gas RDIX Notified Whom Blood Gas 12/05/2018 12:23: Notified Time 53 PM Bedside Glucose 113 106 Sodium Level 142 Potassium Level 3.7 Chloride Level 100 Carbon Dioxide 32 H Level Anion Gap 10 Blood Urea 74 H Nitrogen Creatinine 2.80 H Est Glomerular Filtrat Rate mL/min Glucose Level 100 Calcium Level 8.4 Magnesium Level 2.4 Test 12/05/18 21:49 12/06/18 00:35 12/06/18 03:30 12/06/18 05:34 Bedside Glucose 111 114 133 White Blood Count 9.3 Red Blood Count 3.81 L Hemoglobin 8.3 L Hematocrit 32.0 L Mean Corpuscular 84.0 Volume Mean Corpuscular 21.8 L Hemoglobin Mean Corpuscular 25.9 L Hemoglobin Concen t Red Cell 30.7 H Distribution Width Platelet Count 207 Mean Platelet Volume Immature 0.500 H Granulocytes % Neutrophils % 76.2 Lymphocytes % 11.9 L Monocytes % 5.8 Eosinophils % 5.4 Basophils % 0.2 Nucleated Red 0.0 Blood Cells % Immature 0.050 H Granulocytes # Neutrophils # 7.1 Lymphocytes # 1.1 Monocytes # 0.5 Eosinophils # 0.5 Basophils # 0.0 Nucleated Red 0.0 Blood Cells # Sodium Level 142 Potassium Level 3.3 L Chloride Level 100 Carbon Dioxide 32 H Level Anion Gap 10 Blood Urea 78 H Nitrogen Creatinine 3.27 H Est Glomerular Filtrat Rate mL/min Glucose Level 110 Calcium Level 8.5 Phosphorus Level 4.6 Magnesium Level 2.3 Total Bilirubin 0.1 L Direct Bilirubin 0.00 Indirect 0.1 Bilirubin Aspartate Amino 26 Transf (AST/SGOT) Alanine 28 Aminotransferase (ALT/SGPT) Alkaline 59 Phosphatase Total Protein 6.2 Albumin 3.0 L Globulin 3.20 Albumin/Globulin 0.93 Ratio Test 12/06/18 08:00 Bedside Glucose 133 Consultation Date/Type/Reason Admit Date/Time Nov 23, 2018 at 22:01 Initial Consult Date 11/24/18 Type of Consult cardiology Reason for Consultation Nstemi Requesting Provider: NAYANA GARCIA Exam/Review of Systems Vital Signs Vitals Vital Signs Date Temp Pulse Resp B/P (MAP) Pulse Ox O2 O2 Flow FiO2 Time Delivery Rate 12/06/18 70 16 85/48 (60) 98 09:15 12/06/18 Mechanical 09:00 Ventilator 12/06/18 98.4 08:00 12/06/18 40 08:00 Intake and Output 112/05/18 12/06/18 1515:00 23:00 07:00 IntakeIntake Total 461.25 ml 370.00 ml 590.00 ml OutputOutput Total 300 ml 390 ml 460 ml BalanceBalance 161.25 ml -20.00 ml 130.00 ml Exam Review of Systems: CONSTITUTIONAL: No fevers, chills. PULMONARY: intubated CARDIOVASCULAR: No chest pain/palpitations GASTROINTESTINAL: No nausea/vomiting. GENITOURINARY: No hematuria/dysuria. MUSCULOSKELETAL: No myagias/arthalgias. PSYCHIATRIC: The patient denies depression. NEUROLOGIC: No weakness Constitutional: other (sedated) Psych: no complaints Head: normocephalic ENMT: mucosa pink and moist Neck: supple, jvd (9 cm water) Respiratory: diminished breath sounds (at bases/B) Cardiovascular: regular rate and rhythm Gastrointestinal: nl liver, spleen Musculoskeletal: muscle tone (normal) Extremities: edema (trace/B) Neurological: other (sedated) Medications Medications Current Medications Acetaminophen (Tylenol Liquid) 650 mg Q6H PRN PO PAIN LEVEL 1-3 OR FEVER Last administered on 12/02/18 02:31; Admin Dose 650 MG; Start 11/23/18 at 22:30 Acetaminophen (Tylenol Supp) 650 mg Q4H PRN [place] PAIN LEVEL 1-3 OR FEVER Last administered on 12/02/18 21:21; Admin Dose 650 MG; Start 11/23/18 at 22:30 Atorvastatin Calcium (Lipitor) 20 mg HS PO Last administered on 12/05/18at 21:50; Admin Dose 20 MG; Start 11/24/18 at 21:00 Albuterol/ Ipratropium (Duoneb) 3 ml Q4H RESP THERAPY PRN HHN SHORTNESS OF BREATH; Start 11/24/18 at 09:00 Aripiprazole (Abilify) 5 mg DAILY PO Last administered on 12/06/18 08:04; Admin Dose 5 MG; Start 11/24/18 at 09:30 Digoxin (Digoxin) 0.25 mg DAILY@1300 PO Last administered on 11/26/18 13:41; Admin Dose 0.25 MG; Start 11/24/18 at 13:00; Status Hold Escitalopram Oxalate (Lexapro) 20 mg DAILY PO Last administered on 12/06/18 08:04; Admin Dose 20 MG; Start 11/24/18 at 09:30 Loratadine (Claritin) 10 mg DAILY PO Last administered on 12/06/18 08:05; Admin Dose 10 MG; Start 11/24/18 at 10:00 Multivitamins Therapeutic (Theragran) 1 tab DAILY PO Last administered on 12/06/18 08:04; Admin Dose 1 TAB; Start 11/24/18 at 09:30 Potassium Chloride (Micro-K) 8 meq DAILY PO Last administered on 11/24/18at 10:12; Admin Dose 8 MEQ; Start 11/24/18 at 10:00; Status Hold Tamsulosin HCl (Flomax) 0.4 mg HS PO Last administered on 12/05/18 21:50; Admin Dose 0.4 MG; Start 11/24/18 at 21:00 Calcium/Vitamin D (Oyster Shell/ Vit-D (500/200)) 1 tab DAILY PO Last administered on 12/06/18 08:05; Admin Dose 1 TAB; Start 11/24/18 at 09:30 Metoprolol Tartrate (Lopressor) 5 mg Q4H PRN IV HR>110 Hold SBP<100; Start 11/24/18 at 11:00 Diltiazem HCl (Cardizem Sr) 120 mg DAILY PO ; Start 11/25/18 at 14:00; Status Hold Cefepime HCl 50 ml @ 100 mls/hr Q24H IVPB Last administered on 12/05/18 14:30; Admin Dose 100 MLS/HR; Start 11/26/18 at 12:00 IV Flush (NS 10 ml) 10 ml PRN PRN IV IV PROTOCOL; Start 11/25/18 at 16:00 Hydralazine HCl (Apresoline) 25 mg Q8 PO Last administered on 12/01/18 05:36; Admin Dose 25 MG; Start 11/26/18 at 22:00 Pantoprazole (Protonix Iv) 40 mg DAILY@06 IV Last administered on 12/06/18 05:36; Admin Dose 40 MG; Start 11/29/18 at 06:00 Diagnostic Test (Pha) (Accu-Chek) 1 ea 02 XX Last administered on 12/06/18at 01:46; Admin Dose 1 EA; Start 12/01/18 at 02:00 Insulin Aspart (Novolog Insulin Pen) (Adult SC Insulin - Mild Algorithm)... Q4 SC ; Start 11/30/18 at 09:00 Miscellaneous Information 1 ea NOTE XX ; Start 11/30/18 at 08:00 Glucose (Glutose) 15 gm Q15M PRN PO DECREASED GLUCOSE; Start 11/30/18 at 08:00 Glucose (Glutose) 22.5 gm Q15M PRN PO DECREASED GLUCOSE; Start 11/30/18 at 08:00 Dextrose (D50w Syringe) 25 ml Q15M PRN IV DECREASED GLUCOSE; Start 11/30/18 at 08:00 Dextrose (D50w Syringe) 50 ml Q15M PRN IV DECREASED GLUCOSE; Start 11/30/18 at 08:00 Glucagon (Glucagen) 1 mg Q15M PRN IM DECREASED GLUCOSE; Start 11/30/18 at 08:00 Glucose (Glutose) 15 gm Q15M PRN BUCCAL DECREASED GLUCOSE; Start 11/30/18 at 08:00 Dextrose 1,000 ml @ 100 mls/hr Q10H IV Last administered on 12/04/18at 01:25; Admin Dose 100 MLS/HR; Start 11/30/18 at 15:30; Status Hold Midazolam HCl 50 ml @ 1 mls/hr TITRATE IV Last administered on 12/03/18at 03:19; Admin Dose 4 MLS/HR; Start 12/02/18 at 07:00 Norepinephrine 16 mg/Dextrose 500 ml @ 1.88 mls/hr TITRATE IV Last administered on 12/02/18at 10:03; Admin Dose 9.383 MLS/HR; Start 12/02/18 at 09:30 Fentanyl 100 ml @ 2.5 mls/hr TITRATE IV Last administered on 12/06/18at 00:54; Admin Dose 2.5 MLS/HR; Start 12/02/18 at 10:30 Acetaminophen (Tylenol Tab) 650 mg Q4H PRN PO mild pain Last administered on 12/05/18at 01:13; Admin Dose 650 MG; Start 12/02/18 at 12:00 Morphine Sulfate (morphine) 2 mg Q2H PRN IV moderate to severe pain; Start 12/02/18 at 12:00 Al Hydrox/Mg Hydrox/Simethicone (Mag-Al Plus) 30 ml Q4H PRN PO GASTROINTESTINAL UPSET; Start 12/02/18 at 12:00 Ondansetron HCl (Zofran Inj) 4 mg Q4H PRN IV NAUSEA AND/OR VOMITING; Start 12/02/18 at 12:00 Collagenase (Santyl) 1 applic DAILY TOP Last administered on 12/06/18at 08:05; Admin Dose 1 APPLIC; Start 12/03/18 at 14:00 Furosemide (Lasix) 40 mg BID DIURETICS IV Last administered on 12/06/18at 05:56; Admin Dose 40 MG; Start 12/04/18 at 09:30 Aspirin (Aspirin) 81 mg DAILY NGT Last administered on 12/06/18at 08:04; Admin Dose 81 MG; Start 12/06/18 at 09:00 Heparin Sodium (Porcine) (Heparin (5000 Units/1ml)) 5,000 unit BID SC ; Start 12/06/18 at 21:00 TWAN ESTEVEZ Dec 06, 2018 10:00
[2018-12-06] MEDS: CEFEPIME 2GM/50 ML IVPB SCH (12:04)
--- NOTE | 2018-12-06 12:42 | CONS ---
Date/Time of Note Date/Time of Note DATE: 12/06/18 TIME: 12:42 Assessment/Plan Assessment/Plan Assessment/Plan 1. Oliguric Acute on chronic renal failure due to Sepsis and Hemodynamics + obstructive uropathy 2. atrial fibrillation with RVR 3. acute hypoxemic and hypercapnic resp failure due to PNA - failed BIPAP; int ubated 4. Sepsis 5. Positive troponin 6. BPH on flomax 7. Colon CA Plan: pt remains on BIPAP but awake, ,moderate distress, BUN/cr continues to rise 78/3.27, Urine output 1.1 Liter Lasix 40mg IV BID, monitor electrolytes and replace as needed. we will give albumin 25% 100 ml Q 8 hr x 3 S/p LHC which showed moderate Nonobstructive CAD - medical management SP Colonoscopy with stent placement by GI - Discussed with son- patient remains full code ; family wants HD if needed - currently no acute indication for HD at this time will follow up Result Diagram: 12/06/18 0330 12/06/18 0330 Results 24hrs Laboratory Tests Test 12/05/18 12:51 12/05/18 14:07 12/05/18 18:34 12/05/18 21:49 Bedside Glucose 113 106 111 Sodium Level 142 Potassium Level 3.7 Chloride Level 100 Carbon Dioxide Level 32 H Anion Gap 10 Blood Urea Nitrogen 74 H Creatinine 2.80 H Est Glomerular Filtrat Rate mL/min Glucose Level 100 Calcium Level 8.4 Magnesium Level 2.4 Test 12/06/18 00:35 12/06/18 03:30 12/06/18 05:34 12/06/18 08:00 Bedside Glucose 114 133 133 White Blood Count 9.3 Red Blood Count 3.81 L Hemoglobin 8.3 L Hematocrit 32.0 L Mean Corpuscular 84.0 Volume Mean Corpuscular 21.8 L Hemoglobin Mean Corpuscular 25.9 L Hemoglobin Concent Red Cell 30.7 H Distribution Width Platelet Count 207 Mean Platelet Volume Immature 0.500 H Granulocytes % Neutrophils % 76.2 Lymphocytes % 11.9 L Monocytes % 5.8 Eosinophils % 5.4 Basophils % 0.2 Nucleated Red Blood 0.0 Cells % Immature 0.050 H Granulocytes # Neutrophils # 7.1 Lymphocytes # 1.1 Monocytes # 0.5 Eosinophils # 0.5 Basophils # 0.0 Nucleated Red Blood 0.0 Cells # Sodium Level 142 Potassium Level 3.3 L Chloride Level 100 Carbon Dioxide Level 32 H Anion Gap 10 Blood Urea Nitrogen 78 H Creatinine 3.27 H Est Glomerular Filtrat Rate mL/min Glucose Level 110 Calcium Level 8.5 Phosphorus Level 4.6 Magnesium Level 2.3 Total Bilirubin 0.1 L Direct Bilirubin 0.00 Indirect Bilirubin 0.1 Aspartate Amino 26 Transf (AST/SGOT) Alanine 28 Aminotransferase (AL T/SGPT) Alkaline Phosphatase 59 Total Protein 6.2 Albumin 3.0 L Globulin 3.20 Albumin/Globulin 0.93 Ratio Test 12/06/18 10:25 12/06/18 12:08 Urine Color YELLOW Urine Clarity CLOUDY A Urine pH 5.0 Urine Specific 1.012 [place] Urine Ketones NEGATIVE Urine Nitrite NEGATIVE Urine Bilirubin NEGATIVE Urine Urobilinogen NEGATIVE Urine Leukocyte 3+ H Esterase Urine Microscopic 93 H RBC Urine Microscopic 130 H WBC Urine Bacteria FEW A Urine Mucus FEW A Urine Yeast MANY A (Budding) Urine Hemoglobin 2+ H Urine Glucose NEGATIVE Urine Total Protein 2+ H Bedside Glucose 115 Consultation Date/Type/Reason Admit Date/Time Nov 23, 2018 at 22:01 Initial Consult Date 11/24/18 Type of Consult NEPHROLOGY Requesting Provider: NAYANA GARCIA 24 HR Interval Summary Free Text/Dictation pt remains on BIPAP but awake, ,moderate distress, BUN/cr continues to rise 78/3.27, Urine output 1.1 Liter Exam/Review of Systems Vital Signs Vitals Vital Signs Date Temp Pulse Resp B/P (MAP) Pulse Ox O2 O2 Flow FiO2 Time Delivery Rate 12/06/18 73 12:00 12/06/18 16 85/48 (60) 98 09:15 12/06/18 Mechanical 09:00 Ventilator 12/06/18 98.4 08:00 12/06/18 40 08:00 Intake and Output 12/05/18 12/05/18 12/06/18 1515:00 23:00 07:00 IntakeIntake Total 461.25 ml 370.00 ml 590.00 ml OutputOutput Total 300 ml 390 ml 460 ml BalanceBalance 161.25 ml -20.00 ml 130.00 ml Exam Constitutional: moderate distress, confused disoriented on BIPAP Respiratory: Bilateral coarse BS+, basilar crackles Cardiovascular: regular rate and rhythm, nl pulses Gastrointestinal: soft, non-tender Musculoskeletal: nl extremities to inspection, muscle weakness, swelling Neurological: confused, lethargic Medications Medications Current Medications Acetaminophen (Tylenol Liquid) 650 mg Q6H PRN PO PAIN LEVEL 1-3 OR FEVER Last administered on 12/02/18 02:31; Admin Dose 650 MG; Start 11/23/18 at 22:30 Acetaminophen (Tylenol Supp) 650 mg Q4H PRN [place] PAIN LEVEL 1-3 OR FEVER Last administered on 12/02/18 21:21; Admin Dose 650 MG; Start 11/23/18 at 22:30 Atorvastatin Calcium (Lipitor) 20 mg HS PO Last administered on 12/05/18 21:50; Admin Dose 20 MG; Start 11/24/18 at 21:00 Albuterol/ Ipratropium (Duoneb) 3 ml Q4H RESP THERAPY PRN HHN SHORTNESS OF BREATH; Start 11/24/18 at 09:00 Aripiprazole (Abilify) 5 mg DAILY PO Last administered on 12/06/18 08:04; Admin Dose 5 MG; Start 11/24/18 at 09:30 Digoxin (Digoxin) 0.25 mg DAILY@1300 PO Last administered on 11/26/18 13:41; Admin Dose 0.25 MG; Start 11/24/18 at 13:00; Status Hold Escitalopram Oxalate (Lexapro) 20 mg DAILY PO Last administered on 12/06/18 08:04; Admin Dose 20 MG; Start 11/24/18 at 09:30 Loratadine (Claritin) 10 mg DAILY PO Last administered on 12/06/18 08:05; Admin Dose 10 MG; Start 11/24/18 at 10:00 Multivitamins Therapeutic (Theragran) 1 tab DAILY PO Last administered on 12/06/18 08:04; Admin Dose 1 TAB; Start 11/24/18 at 09:30 Potassium Chloride (Micro-K) 8 meq DAILY PO Last administered on 11/24/18 10:12; Admin Dose 8 MEQ; Start 11/24/18 at 10:00; Status Hold Tamsulosin HCl (Flomax) 0.4 mg HS PO Last administered on 12/05/18 21:50; Admin Dose 0.4 MG; Start 11/24/18 at 21:00 Calcium/Vitamin D (Oyster Shell/ Vit-D (500/200)) 1 tab DAILY PO Last administered on 12/06/18at 08:05; Admin Dose 1 TAB; Start 11/24/18 at 09:30 Metoprolol Tartrate (Lopressor) 5 mg Q4H PRN IV HR>110 Hold SBP<100; Start 11/24/18 at 11:00 Diltiazem HCl (Cardizem Sr) 120 mg DAILY PO ; Start 11/25/18 at 14:00; Status Hold Cefepime HCl 50 ml @ 100 mls/hr Q24H IVPB Last administered on 12/06/18at 12:04; Admin Dose 100 MLS/HR; Start 11/26/18 at 12:00 IV Flush (NS 10 ml) 10 ml PRN PRN IV IV PROTOCOL; Start 11/25/18 at 16:00 Hydralazine HCl (Apresoline) 25 mg Q8 PO Last administered on 12/01/18at 05:36; Admin Dose 25 MG; Start 11/26/18 at 22:00 Pantoprazole (Protonix Iv) 40 mg DAILY@06 IV Last administered on 12/06/18at 05:36; Admin Dose 40 MG; Start 11/29/18 at 06:00 Diagnostic Test (Pha) (Accu-Chek) 1 ea 02 XX Last administered on 12/06/18at 01:46; Admin Dose 1 EA; Start 12/01/18 at 02:00 Insulin Aspart (Novolog Insulin Pen) (Adult SC Insulin - Mild Algorithm)... Q4 SC ; Start 11/30/18 at 09:00 Miscellaneous Information 1 ea NOTE XX ; Start 11/30/18 at 08:00 Glucose (Glutose) 15 gm Q15M PRN PO DECREASED GLUCOSE; Start 11/30/18 at 08:00 Glucose (Glutose) 22.5 gm Q15M PRN PO DECREASED GLUCOSE; Start 11/30/18 at 08:00 Dextrose (D50w Syringe) 25 ml Q15M PRN IV DECREASED GLUCOSE; Start 11/30/18 at 08:00 Dextrose (D50w Syringe) 50 ml Q15M PRN IV DECREASED GLUCOSE; Start 11/30/18 at 08:00 Glucagon (Glucagen) 1 mg Q15M PRN IM DECREASED GLUCOSE; Start 11/30/18 at 08:00 Glucose (Glutose) 15 gm Q15M PRN BUCCAL DECREASED GLUCOSE; Start 11/30/18 at 08:00 Dextrose 1,000 ml @ 100 mls/hr Q10H IV Last administered on 12/04/18at 01:25; Admin Dose 100 MLS/HR; Start 11/30/18 at 15:30; Status Hold Midazolam HCl 50 ml @ 1 mls/hr TITRATE IV Last administered on 12/03/18at 03:19; Admin Dose 4 MLS/HR; Start 12/02/18 at 07:00 Norepinephrine 16 mg/Dextrose 500 ml @ 1.88 mls/hr TITRATE IV Last administered on 12/02/18at 10:03; Admin Dose 9.383 MLS/HR; Start 12/02/18 at 09:30 Fentanyl 100 ml @ 2.5 mls/hr TITRATE IV Last administered on 12/06/18at 00:54; Admin Dose 2.5 MLS/HR; Start 12/02/18 at 10:30 Acetaminophen (Tylenol Tab) 650 mg Q4H PRN PO mild pain Last administered on 12/05/18at 01:13; Admin Dose 650 MG; Start 12/02/18 at 12:00 Morphine Sulfate (morphine) 2 mg Q2H PRN IV moderate to severe pain; Start 12/02/18 at 12:00 Al Hydrox/Mg Hydrox/Simethicone (Mag-Al Plus) 30 ml Q4H PRN PO GASTROINTESTINAL UPSET; Start 12/02/18 at 12:00 Ondansetron HCl (Zofran Inj) 4 mg Q4H PRN IV NAUSEA AND/OR VOMITING; Start 12/02/18 at 12:00 Collagenase (Santyl) 1 applic DAILY TOP Last administered on 12/06/18at 08:05; Admin Dose 1 APPLIC; Start 12/03/18 at 14:00 Furosemide (Lasix) 40 mg BID DIURETICS IV Last administered on 12/06/18at 05:56; Admin Dose 40 MG; Start 12/04/18 at 09:30 Aspirin (Aspirin) 81 mg DAILY NGT Last administered on 12/06/18at 08:04; Admin Dose 81 MG; Start 12/06/18 at 09:00 Heparin Sodium (Porcine) (Heparin (5000 Units/1ml)) 5,000 unit BID SC ; Start 12/06/18 at 21:00 RENAN HERNANDEZ MD Dec 06, 2018 12:42
--- NOTE | 2018-12-06 13:14 | NUR ---
WOUND CONSULT EVALUATION FOR RIGHT PARIETAL HEAD, DEVICE-RELATED INJURY, FOLLOW UP 78 year old male well known to our service, admitted with hypoxia and hypercapnic respiratory failure possible 2/2 to pneumonia and fluid overload per record. History of sigmoid mass and diabetes who recently underwent a colonoscopy with stent deployment for sigmoid carcinoma. Patient currently intubated with attempt to wean, low dose vasopressor therapy. [place] cath. Incontinent of bowel. Max assist to turn. On low air loss surface. Wound consult re-evaluation for a device-related pressure injury. ASSESSMENT/RECOMMENDATIONS: - Right-Sided parietal head device-related intact deep tissue injury. Condition is not present on admission measuring approx 1cmx3.0xsr4al with intact periwound, and according to patient's son who is very active in his care and at the bedside, previous to his intubation during colonoscopy procedure, patient wore a BiPAP mask with the securement device attributing to his pressure injury. Recommendations - Apply Venelex ointment to deep tissue injury twice daily and cover with foam border dressing. - Maintain neutral head positioning when turning, and inspect occiput and sides of head at every shift - Recommend use of waffle pillow to further reduce any pressure injury - If patient requires use of Bipap, to fully pad the mask including using padding such as ABD or foam wedges to avoid skin contact and re-adjust BiPAP at least every 2 hours. - Continue low air loss surface. - Reposition every 2 hours. Discussed findings and treatment plan with LEYLA Pelletier, and patient's son, Ang. RN to continue to implement above treatments Thank you Brenda Malin, MSN, RN, CCRN, C
--- NOTE | 2018-12-06 13:26 | CONS ---
Date/Time of Note Date/Time of Note DATE: 12/06/18 TIME: 13:26 Assessment/Plan Assessment/Plan Hospital Course unfortunate 78 yo with what appears to be locally advanced colon ca #nearly obstructive colon ca -he has very poor performance status and multiple co-morbidities/multiple medical complications -he is intubated -surgery has seen pt and feels he may not be an appropriate resection candidate, s/p stent -given that he appears to have localized disease, surgical resection is optimal treatment if he ever becomes stable for surgery. typically radiation has no role in localized colon ca, radiation can play a role in palliative tx of met colon if painful site of metastatic disease for example. -I have discussed with son over the phone just now that his father's health is very tenuous and he is not a candidate for chemo now, unclear if he will ever be improved enough for oncologic tx #anemia due to colon ca hgb 8.3 repeat iron studies to determine if he needs iron supplementation #CAD s/p cardiac cath, no critical obstruction #ANEMIA due to colon mass, hgb stable keep >7 Result Diagram: 12/06/18 0330 12/06/18 0330 Results 24hrs Laboratory Tests Test 12/05/18 14:07 12/05/18 18:34 12/05/18 21:49 12/06/18 00:35 Sodium Level 142 Potassium Level 3.7 Chloride Level 100 Carbon Dioxide Level 32 H Anion Gap 10 Blood Urea Nitrogen 74 H Creatinine 2.80 H Est Glomerular Filtrat Rate mL/min Glucose Level 100 Calcium Level 8.4 Magnesium Level 2.4 Bedside Glucose 106 111 114 Test 12/06/18 03:30 12/06/18 05:34 12/06/18 08:00 12/06/18 10:25 White Blood Count 9.3 Red Blood Count 3.81 L Hemoglobin 8.3 L Hematocrit 32.0 L Mean Corpuscular 84.0 Volume Mean Corpuscular 21.8 L Hemoglobin Mean Corpuscular 25.9 L Hemoglobin Concent Red Cell 30.7 H Distribution Width Platelet Count 207 Mean Platelet Volume Immature 0.500 H Granulocytes % Neutrophils % 76.2 Lymphocytes % 11.9 L Monocytes % 5.8 Eosinophils % 5.4 Basophils % 0.2 Nucleated Red Blood 0.0 Cells % Immature 0.050 H Granulocytes # Neutrophils # 7.1 Lymphocytes # 1.1 Monocytes # 0.5 Eosinophils # 0.5 Basophils # 0.0 Nucleated Red Blood 0.0 Cells # Sodium Level 142 Potassium Level 3.3 L Chloride Level 100 Carbon Dioxide Level 32 H Anion Gap 10 Blood Urea Nitrogen 78 H Creatinine 3.27 H Est Glomerular Filtrat Rate mL/min Glucose Level 110 Calcium Level 8.5 Phosphorus Level 4.6 Magnesium Level 2.3 Total Bilirubin 0.1 L Direct Bilirubin 0.00 Indirect Bilirubin 0.1 Aspartate Amino 26 Transf (AST/SGOT) Alanine 28 Aminotransferase (AL T/SGPT) Alkaline Phosphatase 59 Total Protein 6.2 Albumin 3.0 L Globulin 3.20 Albumin/Globulin 0.93 Ratio Bedside Glucose 133 133 Urine Color YELLOW Urine Clarity CLOUDY A Urine pH 5.0 Urine Specific 1.012 [place] Urine Ketones NEGATIVE Urine Nitrite NEGATIVE Urine Bilirubin NEGATIVE Urine Urobilinogen NEGATIVE Urine Leukocyte 3+ H Esterase Urine Microscopic 93 H RBC Urine Microscopic 130 H WBC Urine Bacteria FEW A Urine Mucus FEW A Urine Yeast MANY A (Budding) Urine Hemoglobin 2+ H Urine Glucose NEGATIVE Urine Total Protein 2+ H Test 12/06/18 12:08 Bedside Glucose 115 Consultation Date/Type/Reason Admit Date/Time Nov 23, 2018 at 22:01 Initial Consult Date 11/25/18 Requesting Provider: NAYANA GARCIA 24 HR Interval Summary Free Text/Dictation pt is intubated had colonic stent placement 12/03/18 Exam/Review of Systems Vital Signs Vitals Vital Signs Date Temp Pulse Resp B/P (MAP) Pulse Ox O2 O2 Flow FiO2 Time Delivery Rate 12/06/18 68 18 100/51 97 12:30 (67) 12/06/18 98.9 Mechanical 12:00 Ventilator 12/06/18 40 08:00 Intake and Output 12/05/18 12/05/18 12/06/18 1515:00 23:00 07:00 IntakeIntake Total 461.25 ml 370.00 ml 590.00 ml OutputOutput Total 300 ml 390 ml 460 ml BalanceBalance 161.25 ml -20.00 ml 130.00 ml Exam Constitutional: frail Psych: other Respiratory: normal air movement Cardiovascular: regular rate and rhythm Musculoskeletal: nl extremities to inspection Medications Medications Current Medications Acetaminophen (Tylenol Liquid) 650 mg Q6H PRN PO PAIN LEVEL 1-3 OR FEVER Last administered on 12/02/18at 02:31; Admin Dose 650 MG; Start 11/23/18 at 22:30 Acetaminophen (Tylenol Supp) 650 mg Q4H PRN GA PAIN LEVEL 1-3 OR FEVER Last administered on 12/02/18 21:21; Admin Dose 650 MG; Start 11/23/18 at 22:30 Atorvastatin Calcium (Lipitor) 20 mg HS PO Last administered on 12/05/18 21:50; Admin Dose 20 MG; Start 11/24/18 at 21:00 Albuterol/ Ipratropium (Duoneb) 3 ml Q4H RESP THERAPY PRN HHN SHORTNESS OF BREATH; Start 11/24/18 at 09:00 Aripiprazole (Abilify) 5 mg DAILY PO Last administered on 12/06/18 08:04; Admin Dose 5 MG; Start 11/24/18 at 09:30 Digoxin (Digoxin) 0.25 mg DAILY@1300 PO Last administered on 11/26/18 13:41; Admin Dose 0.25 MG; Start 11/24/18 at 13:00; Status Hold Escitalopram Oxalate (Lexapro) 20 mg DAILY PO Last administered on 12/06/18 08:04; Admin Dose 20 MG; Start 11/24/18 at 09:30 Loratadine (Claritin) 10 mg DAILY PO Last administered on 12/06/18 08:05; Admin Dose 10 MG; Start 11/24/18 at 10:00 Multivitamins Therapeutic (Theragran) 1 tab DAILY PO Last administered on 12/06/18 08:04; Admin Dose 1 TAB; Start 11/24/18 at 09:30 Potassium Chloride (Micro-K) 8 meq DAILY PO Last administered on 11/24/18 10:12; Admin Dose 8 MEQ; Start 11/24/18 at 10:00; Status Hold Tamsulosin HCl (Flomax) 0.4 mg HS PO Last administered on 12/05/18 21:50; Admin Dose 0.4 MG; Start 11/24/18 at 21:00 Calcium/Vitamin D (Oyster Shell/ Vit-D (500/200)) 1 tab DAILY PO Last administered on 12/06/18 08:05; Admin Dose 1 TAB; Start 11/24/18 at 09:30 Metoprolol Tartrate (Lopressor) 5 mg Q4H PRN IV HR>110 Hold SBP<100; Start 11/24/18 at 11:00 Diltiazem HCl (Cardizem Sr) 120 mg DAILY PO ; Start 11/25/18 at 14:00; Status Hold Cefepime HCl 50 ml @ 100 mls/hr Q24H IVPB Last administered on 12/06/18at 12:04; Admin Dose 100 MLS/HR; Start 11/26/18 at 12:00 IV Flush (NS 10 ml) 10 ml PRN PRN IV IV PROTOCOL; Start 11/25/18 at 16:00 Hydralazine HCl (Apresoline) 25 mg Q8 PO Last administered on 12/01/18at 05:36; Admin Dose 25 MG; Start 11/26/18 at 22:00 Pantoprazole (Protonix Iv) 40 mg DAILY@06 IV Last administered on 12/06/18at 05:36; Admin Dose 40 MG; Start 11/29/18 at 06:00 Diagnostic Test (Pha) (Accu-Chek) 1 ea 02 XX Last administered on 12/06/18at 01:46; Admin Dose 1 EA; Start 12/01/18 at 02:00 Insulin Aspart (Novolog Insulin Pen) (Adult SC Insulin - Mild Algorithm)... Q4 SC ; Start 11/30/18 at 09:00 Miscellaneous Information 1 ea NOTE XX ; Start 11/30/18 at 08:00 Glucose (Glutose) 15 gm Q15M PRN PO DECREASED GLUCOSE; Start 11/30/18 at 08:00 Glucose (Glutose) 22.5 gm Q15M PRN PO DECREASED GLUCOSE; Start 11/30/18 at 08:00 Dextrose (D50w Syringe) 25 ml Q15M PRN IV DECREASED GLUCOSE; Start 11/30/18 at 08:00 Dextrose (D50w Syringe) 50 ml Q15M PRN IV DECREASED GLUCOSE; Start 11/30/18 at 08:00 Glucagon (Glucagen) 1 mg Q15M PRN IM DECREASED GLUCOSE; Start 11/30/18 at 08:00 Glucose (Glutose) 15 gm Q15M PRN BUCCAL DECREASED GLUCOSE; Start 11/30/18 at 08:00 Midazolam HCl 50 ml @ 1 mls/hr TITRATE IV Last administered on 12/03/18at 03:19; Admin Dose 4 MLS/HR; Start 12/02/18 at 07:00 Norepinephrine 16 mg/Dextrose 500 ml @ 1.88 mls/hr TITRATE IV Last administered on 12/02/18at 10:03; Admin Dose 9.383 MLS/HR; Start 12/02/18 at 09:30 Fentanyl 100 ml @ 2.5 mls/hr TITRATE IV Last administered on 12/06/18at 00:54; Admin Dose 2.5 MLS/HR; Start 12/02/18 at 10:30 Acetaminophen (Tylenol Tab) 650 mg Q4H PRN PO mild pain Last administered on 12/05/18at 01:13; Admin Dose 650 MG; Start 12/02/18 at 12:00 Morphine Sulfate (morphine) 2 mg Q2H PRN IV moderate to severe pain; Start 12/02/18 at 12:00 Al Hydrox/Mg Hydrox/Simethicone (Mag-Al Plus) 30 ml Q4H PRN PO GASTROINTESTINAL UPSET; Start 12/02/18 at 12:00 Ondansetron HCl (Zofran Inj) 4 mg Q4H PRN IV NAUSEA AND/OR VOMITING; Start 12/02/18 at 12:00 Collagenase (Santyl) 1 applic DAILY TOP Last administered on 12/06/18at 08:05; Admin Dose 1 APPLIC; Start 12/03/18 at 14:00 Furosemide (Lasix) 40 mg BID DIURETICS IV Last administered on 12/06/18at 05:56; Admin Dose 40 MG; Start 12/04/18 at 09:30 Aspirin (Aspirin) 81 mg DAILY NGT Last administered on 12/06/18at 08:04; Admin Dose 81 MG; Start 12/06/18 at 09:00 Heparin Sodium (Porcine) (Heparin (5000 Units/1ml)) 5,000 unit BID SC ; Start 12/06/18 at 21:00 Albumin Human 100 ml @ 100 mls/hr Q8H IV ; Start 12/06/18 at 13:00; Stop 12/07/18 at 05:59; Status TEO JESSICA Dec 06, 2018 13:26
[2018-12-06] MEDS: ALBUMIN HUMAN 25% 100 ML IV SCH ×2 (13:33→21:47)
[2018-12-06] MEDS: ATORVASTATIN 20 MG TAB PO SCH (21:42)
[2018-12-06] MEDS: TAMSULOSIN (SR) 0.4 MG CAP PO SCH (21:42)
[2018-12-06] MEDS: HEPARIN 5,000 UNIT/1 ML VIAL SC SCH (21:43)
[2018-12-07] VITALS (101 sets, daily range): BP systolic 92–154; BP diastolic 42–79; PULSE 64–91; RESP 14–35
[2018-12-07] MEDS: Insulin NOVOLOG SS MILD Algorithm (NPO/TPN/ENTERAL FEEDS) SC SCH ×6 (01:00→20:53)
[2018-12-07] MEDS: ACCU-CHEK XX SCH (01:22)
[2018-12-07] MEDS: ALBUMIN HUMAN 25% 100 ML IV SCH (05:51)
[2018-12-07] MEDS: FUROSEMIDE 40 MG INJ IV SCH (05:53)
[2018-12-07] MEDS: PANTOPRAZOLE 40 MG INJ IV SCH (05:53)
--- NOTE | 2018-12-07 06:57 | NUR ---
EOSS: Pt remains orally intubated to vent, no SOB, no restraints but calm as noted. on Fentanyl drip at 30 mgs/hr. Levophed drip for BP support. Unable to turn Levo drip off, BP drops below acceptable range, afebrile. turned and repositioned due meds adm., complete bedbath rendered, minimal u/o w/ known urological obstruction. no signs of distress.
--- NOTE | 2018-12-07 08:26 | CONS ---
Date/Time of Note Date/Time of Note DATE: 12/07/18 TIME: 08:23 Assessment/Plan Assessment/Plan Assessment/Plan 1. Non-ST elevation myocardial infarction, currently down trending cardiac enzymes likely a type 2 demand infarct in the setting of fevers, hypercarbic respiratory failure.-downtrended cardiac enzymes. NO cp. Echo this admit 11/24 with NL EF 55%. Now s/p LHC 12/02 with no sig major epicardial obstructive cad. LVEDP 21 - no active CP - no cardiac intervention planned now. 2. Abnormal electrocardiogram - no CP noted, intermittently responsive, but confused. 3. Right bundle branch block. 4. Colonic mass s/p stent placement - surgical team follows, 5. Anemia. 6. Renal failure-worsening 7. Leukocytosis. 8. Coagulopathy. 9. Sepsis. 10. Atrial fibrillation-now in SR - will monitor clinically. 11.CHF-diastolic acute on chronic - euvolemic by exam now. 12. Resp failure s/p intubation 14. Hypotension on levophed 15. PTX Result Diagram: 12/07/18 0420 12/07/18 0420 Results 24hrs Laboratory Tests Test 12/06/18 10:25 12/06/18 12:08 12/06/18 16:31 12/06/18 21:40 Urine Color YELLOW Urine Clarity CLOUDY A Urine pH 5.0 Urine Specific 1.012 [place] Urine Ketones NEGATIVE Urine Nitrite NEGATIVE Urine Bilirubin NEGATIVE Urine Urobilinogen NEGATIVE Urine Leukocyte 3+ H Esterase Urine Microscopic 93 H RBC Urine Microscopic 130 H WBC Urine Bacteria FEW A Urine Mucus FEW A Urine Yeast MANY A (Budding) Urine Hemoglobin 2+ H Urine Glucose NEGATIVE Urine Total Protein 2+ H Bedside Glucose 115 119 135 Test 12/07/18 01:19 12/07/18 04:20 12/07/18 05:45 Bedside Glucose 134 140 White Blood Count 10.3 Red Blood Count 3.56 L Hemoglobin 8.0 L Hematocrit 30.1 L Mean Corpuscular 84.6 Volume Mean Corpuscular 22.5 L Hemoglobin Mean Corpuscular 26.6 L Hemoglobin Concent Red Cell 29.8 H Distribution Width Platelet Count 217 Mean Platelet Volume Immature 0.400 Granulocytes % Neutrophils % 72.9 Lymphocytes % 15.9 Monocytes % 5.9 Eosinophils % 4.7 Basophils % 0.2 Nucleated Red Blood 0.0 Cells % Immature 0.040 H Granulocytes # Neutrophils # 7.5 Lymphocytes # 1.6 Monocytes # 0.6 Eosinophils # 0.5 Basophils # 0.0 Nucleated Red Blood 0.0 Cells # Sodium Level 141 Potassium Level 3.5 Chloride Level 100 Carbon Dioxide Level 32 H Anion Gap 9 Blood Urea Nitrogen 82 H Creatinine 4.13 H Est Glomerular Filtrat Rate mL/min Glucose Level 113 Calcium Level 8.6 Total Bilirubin 0.1 L Direct Bilirubin 0.00 Indirect Bilirubin 0.1 Aspartate Amino 25 Transf (AST/SGOT) Alanine 23 Aminotransferase (AL T/SGPT) Alkaline Phosphatase 61 Total Protein 6.5 Albumin 3.3 Globulin 3.20 Albumin/Globulin 1.03 Ratio Consultation Date/Type/Reason Admit Date/Time Nov 23, 2018 at 22:01 Initial Consult Date 11/25/18 Requesting Provider: NAYANA GARCIA 24 HR Interval Summary Free Text/Dictation NO acute events - rate controlled - not able to wean - con't supportive RX now. ROS: No fever, no chills, no nausea, no vomiting, no diarrhea/constipation No recent weight changes No chest pain, no PND, no orthopnea + SOB per nurse No dizziness, blurred vision No thirst, no heat or cold intolerance Exam/Review of Systems Vital Signs Vitals Vital Signs Date Temp Pulse Resp B/P (MAP) Pulse Ox O2 O2 Flow FiO2 Time Delivery Rate 12/07/18 98.0 79 18 107/56 95 Mechanical 07:45 (73) Ventilator 12/07/18 30 05:30 Intake and Output 12/06/18 12/06/18 12/07/18 1515:00 23:00 07:00 IntakeIntake Total 858.00 ml 724.00 ml 467.24 ml OutputOutput Total 160 ml 120 ml 80 ml BalanceBalance 698.00 ml 604.00 ml 387.24 ml Exam General: WN/WD/NAD, AOx 0 intermittently confused HEENT: Unicetric/atraumatic/EOMI (does not follow commands) NECK: JVD elevated, no thyromegaly - intubated Lymph: no lymphadenopathy HEART: regular with no S3, II/ systolic murmur at apex LUNGS: Coarse sounds ABD: soft, NT, ND, +BS : Intact Neuro: non focal SKIN: chronic changes EXT: trace edema Medications Medications Current Medications Acetaminophen (Tylenol Liquid) 650 mg Q6H PRN PO PAIN LEVEL 1-3 OR FEVER Last administered on 12/02/18 02:31; Admin Dose 650 MG; Start 11/23/18 at 22:30 Acetaminophen (Tylenol Supp) 650 mg Q4H PRN DC PAIN LEVEL 1-3 OR FEVER Last administered on 12/02/18 21:21; Admin Dose 650 MG; Start 11/23/18 at 22:30 Atorvastatin Calcium (Lipitor) 20 mg HS PO Last administered on 12/06/18 21:42; Admin Dose 20 MG; Start 11/24/18 at 21:00 Albuterol/ Ipratropium (Duoneb) 3 ml Q4H RESP THERAPY PRN HHN SHORTNESS OF BREATH; Start 11/24/18 at 09:00 Aripiprazole (Abilify) 5 mg DAILY PO Last administered on 12/06/18 08:04; A dmin Dose 5 MG; Start 11/24/18 at 09:30 Digoxin (Digoxin) 0.25 mg DAILY@1300 PO Last administered on 11/26/18 13:41; Admin Dose 0.25 MG; Start 11/24/18 at 13:00; Status Hold Escitalopram Oxalate (Lexapro) 20 mg DAILY PO Last administered on 12/06/18 08:04; Admin Dose 20 MG; Start 11/24/18 at 09:30 Loratadine (Claritin) 10 mg DAILY PO Last administered on 12/06/18 08:05; Admin Dose 10 MG; Start 11/24/18 at 10:00 Multivitamins Therapeutic (Theragran) 1 tab DAILY PO Last administered on 12/06/18 08:04; Admin Dose 1 TAB; Start 11/24/18 at 09:30 Potassium Chloride (Micro-K) 8 meq DAILY PO Last administered on 11/24/18 10:12; Admin Dose 8 MEQ; Start 11/24/18 at 10:00; Status Hold Tamsulosin HCl (Flomax) 0.4 mg HS PO Last administered on 12/06/18 21:42; Admin Dose 0.4 MG; Start 11/24/18 at 21:00 Calcium/Vitamin D (Oyster Shell/ Vit-D (500/200)) 1 tab DAILY PO Last administered on 1/14/19at 08:05; Admin Dose 1 TAB; Start 11/24/18 at 09:30 Metoprolol Tartrate (Lopressor) 5 mg Q4H PRN IV HR>110 Hold SBP<100; Start 11/24/18 at 11:00 Diltiazem HCl (Cardizem Sr) 120 mg DAILY PO ; Start 11/25/18 at 14:00; Status Hold Cefepime HCl 50 ml @ 100 mls/hr Q24H IVPB Last administered on 12/06/18at 12:04; Admin Dose 100 MLS/HR; Start 11/26/18 at 12:00 IV Flush (NS 10 ml) 10 ml PRN PRN IV IV PROTOCOL; Start 11/25/18 at 16:00 Hydralazine HCl (Apresoline) 25 mg Q8 PO Last administered on 12/07/18at 06:37; Admin Dose 25 MG; Start 11/26/18 at 22:00 Pantoprazole (Protonix Iv) 40 mg DAILY@06 IV Last administered on 12/07/18at 05:53; Admin Dose 40 MG; Start 11/29/18 at 06:00 Diagnostic Test (Pha) (Accu-Chek) 1 ea 02 XX Last administered on 12/06/18at 01:46; Admin Dose 1 EA; Start 12/01/18 at 02:00 Insulin Aspart (Novolog Insulin Pen) (Adult SC Insulin - Mild Algorithm)... Q4 SC ; Start 11/30/18 at 09:00 Miscellaneous Information 1 ea NOTE XX ; Start 11/30/18 at 08:00 Glucose (Glutose) 15 gm Q15M PRN PO DECREASED GLUCOSE; Start 11/30/18 at 08:00 Glucose (Glutose) 22.5 gm Q15M PRN PO DECREASED GLUCOSE; Start 11/30/18 at 08:00 Dextrose (D50w Syringe) 25 ml Q15M PRN IV DECREASED GLUCOSE; Start 11/30/18 at 08:00 Dextrose (D50w Syringe) 50 ml Q15M PRN IV DECREASED GLUCOSE; Start 11/30/18 at 08:00 Glucagon (Glucagen) 1 mg Q15M PRN IM DECREASED GLUCOSE; Start 11/30/18 at 08:00 Glucose (Glutose) 15 gm Q15M PRN BUCCAL DECREASED GLUCOSE; Start 11/30/18 at 08:00 Midazolam HCl 50 ml @ 1 mls/hr TITRATE IV Last administered on 12/03/18 03:19; Admin Dose 4 MLS/HR; Start 12/02/18 at 07:00 Norepinephrine 16 mg/Dextrose 500 ml @ 1.88 mls/hr TITRATE IV Last administered on 12/02/18at 10:03; Admin Dose 9.383 MLS/HR; Start 12/02/18 at 09:30 Fentanyl 100 ml @ 2.5 mls/hr TITRATE IV Last administered on 12/06/18at 00:54; Admin Dose 2.5 MLS/HR; Start 12/02/18 at 10:30 Acetaminophen (Tylenol Tab) 650 mg Q4H PRN PO mild pain Last administered on 12/05/18at 01:13; Admin Dose 650 MG; Start 12/02/18 at 12:00 Morphine Sulfate (morphine) 2 mg Q2H PRN IV moderate to severe pain; Start 12/02/18 at 12:00 Al Hydrox/Mg Hydrox/Simethicone (Mag-Al Plus) 30 ml Q4H PRN PO GASTROINTESTINAL UPSET; Start 12/02/18 at 12:00 Ondansetron HCl (Zofran Inj) 4 mg Q4H PRN IV NAUSEA AND/OR VOMITING; Start 12/02/18 at 12:00 Collagenase (Santyl) 1 applic DAILY TOP Last administered on 12/06/18at 08:05; Admin Dose 1 APPLIC; Start 12/03/18 at 14:00 Furosemide (Lasix) 40 mg BID DIURETICS IV Last administered on 12/07/18 05:53; Admin Dose 40 MG; Start 12/04/18 at 09:30 Aspirin (Aspirin) 81 mg DAILY NGT Last administered on 12/06/18 08:04; Admin Dose 81 MG; Start 12/06/18 at 09:00 Heparin Sodium (Porcine) (Heparin (5000 Units/1ml)) 5,000 unit BID SC Last administered on 12/06/18at 21:43; Admin Dose 5,000 UNIT; Start 12/06/18 at 21:00 SCARLET HARDWICK MD Dec 07, 2018 08:26
[2018-12-07] MEDS: ESCITALOPRAM 10 MG TAB PO SCH (08:55)
[2018-12-07] MEDS: CALCIUM/VITAMIN D (500/200) TAB PO SCH (08:55)
[2018-12-07] MEDS: MULTIVITAMINS THERAPEUTIC TAB PO SCH (08:56)
[2018-12-07] MEDS: ASPIRIN 325 MG TAB NGT SCH (08:56)
[2018-12-07] MEDS: HEPARIN 5,000 UNIT/1 ML VIAL SC SCH ×2 (08:57→20:47)
[2018-12-07] MEDS: ARIPIPRAZOLE 5 MG TAB PO SCH (09:03)
[2018-12-07] MEDS: LORATADINE 10 MG TAB PO SCH (09:03)
[2018-12-07] MEDS: BALSAM PERU/CASTOR OIL 60 GM TUBE TOP SCH ×2 (09:08→20:48)
--- NOTE | 2018-12-07 09:24 | CONS ---
Date/Time of Note Date/Time of Note DATE: 12/07/18 TIME: 09:21 Assessment/Plan Assessment/Plan Assessment/Plan Ventilator setting; AC of 16, tidal volume 500, PEEP of 5, 30% FiO2. Patient is currently on Levophed 2 mics per minute, fentanyl 30 mics per hour. Assessment recommendations; 1. Patient admitted with respiratory failure due to pneumonia and CHF exacerbation as well as non-ST elevation PA status post coronary angiography with negative findings. 2. Worsening renal function likely ATN. 3. Chronic atrial for ablation. 4. Anemia. 5. Bilateral pneumonia with interval improvement. 6. Status post endoscopy with discovery of sigmoid mass status post stenting of lesion. Biopsy results are pending. 7. Status post right thoracentesis for pleural effusion. 8. Failure to be weaned from ventilator despite multiple times. Hold fentanyl drip. Perform another CPAP trial as tolerated. Continue other s upportive measures. I did have a detailed discussion with the patient's son at bedside and answered all his questions. Prognosis is guarded. Result Diagram: 12/07/18 0420 12/07/18 0420 Results 24hrs Laboratory Tests Test 12/06/18 10:25 12/06/18 12:08 12/06/18 16:31 12/06/18 21:40 Urine Color YELLOW Urine Clarity CLOUDY A Urine pH 5.0 Urine Specific 1.012 [place] Urine Ketones NEGATIVE Urine Nitrite NEGATIVE Urine Bilirubin NEGATIVE Urine Urobilinogen NEGATIVE Urine Leukocyte 3+ H Esterase Urine Microscopic 93 H RBC Urine Microscopic 130 H WBC Urine Bacteria FEW A Urine Mucus FEW A Urine Yeast MANY A (Budding) Urine Hemoglobin 2+ H Urine Glucose NEGATIVE Urine Total Protein 2+ H Bedside Glucose 115 119 135 Test 12/07/18 01:19 12/07/18 04:20 12/07/18 05:45 Bedside Glucose 134 140 White Blood Count 10.3 Red Blood Count 3.56 L Hemoglobin 8.0 L Hematocrit 30.1 L Mean Corpuscular 84.6 Volume Mean Corpuscular 22.5 L Hemoglobin Mean Corpuscular 26.6 L Hemoglobin Concent Red Cell 29.8 H Distribution Width Platelet Count 217 Mean Platelet Volume Immature 0.400 Granulocytes % Neutrophils % 72.9 Lymphocytes % 15.9 Monocytes % 5.9 Eosinophils % 4.7 Basophils % 0.2 Nucleated Red Blood 0.0 Cells % Immature 0.040 H Granulocytes # Neutrophils # 7.5 Lymphocytes # 1.6 Monocytes # 0.6 Eosinophils # 0.5 Basophils # 0.0 Nucleated Red Blood 0.0 Cells # Sodium Level 141 Potassium Level 3.5 Chloride Level 100 Carbon Dioxide Level 32 H Anion Gap 9 Blood Urea Nitrogen 82 H Creatinine 4.13 H Est Glomerular Filtrat Rate mL/min Glucose Level 113 Calcium Level 8.6 Total Bilirubin 0.1 L Direct Bilirubin 0.00 Indirect Bilirubin 0.1 Aspartate Amino 25 Transf (AST/SGOT) Alanine 23 Aminotransferase (AL T/SGPT) Alkaline Phosphatase 61 Total Protein 6.5 Albumin 3.3 Globulin 3.20 Albumin/Globulin 1.03 Ratio Consultation Date/Type/Reason Admit Date/Time Nov 23, 2018 at 22:01 Initial Consult Date 11/24/18 Type of Consult Pulmonary/critical care Requesting Provider: NAYANA GARCIA 24 HR Interval Summary Free Text/Dictation Patient condition remains critical but stable. Patient has remained hemodynamically stable. Exhibiting stable atrial fibrillation. General exam; elderly male, orally intubated, sedated, currently in no distress. Exam/Review of Systems Vital Signs Vitals Vital Signs Date Temp Pulse Resp B/P (MAP) Pulse Ox O2 O2 Flow FiO2 Time Delivery Rate 12/07/18 98.0 79 18 107/56 95 Mechanical 07:45 (73) Ventilator 12/07/18 30 05:30 Intake and Output 12/06/18 12/06/18 12/07/18 1515:00 23:00 07:00 IntakeIntake Total 858.00 ml 724.00 ml 467.24 ml OutputOutput Total 160 ml 120 ml 80 ml BalanceBalance 698.00 ml 604.00 ml 387.24 ml Exam H EENT exam; supple neck, positive JVD. No lymphadenopathy. Midline trachea. No thyromegaly. Orally intubated. Nasogastric tube in place. Patient has carious teeth. Chest exam; diminished but clear breath sounds. S1-S2 audible, no murmurs. Irregular rhythm. Abdomen exam; soft, no organomegaly. Bowel sounds audible. Extremity exam; no peripheral edema. [employer] exam; he is awake but sedated. Medications Medications Current Medications Acetaminophen (Tylenol Liquid) 650 mg Q6H PRN PO PAIN LEVEL 1-3 OR FEVER Last administered on 12/02/18at 02:31; Admin Dose 650 MG; Start 11/23/18 at 22:30 Acetaminophen (Tylenol Supp) 650 mg Q4H PRN [place] PAIN LEVEL 1-3 OR FEVER Last administered on 12/02/18 21:21; Admin Dose 650 MG; Start 11/23/18 at 22:30 Atorvastatin Calcium (Lipitor) 20 mg HS PO Last administered on 12/06/18 21:42; Admin Dose 20 MG; Start 11/24/18 at 21:00 Albuterol/ Ipratropium (Duoneb) 3 ml Q4H RESP THERAPY PRN HHN SHORTNESS OF VICKY TH; Start 11/24/18 at 09:00 Aripiprazole (Abilify) 5 mg DAILY PO Last administered on 12/07/18 09:03; Admin Dose 5 MG; Start 11/24/18 at 09:30 Digoxin (Digoxin) 0.25 mg DAILY@1300 PO Last administered on 11/26/18 13:41; Admin Dose 0.25 MG; Start 11/24/18 at 13:00; Status Hold Escitalopram Oxalate (Lexapro) 20 mg DAILY PO Last administered on 12/07/18 08:55; Admin Dose 20 MG; Start 11/24/18 at 09:30 Loratadine (Claritin) 10 mg DAILY PO Last administered on 12/07/18 09:03; Admin Dose 10 MG; Start 11/24/18 at 10:00 Multivitamins Therapeutic (Theragran) 1 tab DAILY PO Last administered on 12/07 08:56; Admin Dose 1 TAB; Start 11/24/18 at 09:30 Potassium Chloride (Micro-K) 8 meq DAILY PO Last administered on 11/24/18 10:12; Admin Dose 8 MEQ; Start 11/24/18 at 10:00; Status Hold Tamsulosin HCl (Flomax) 0.4 mg HS PO Last administered on 12/06/18 21:42; Admin Dose 0.4 MG; Start 11/24/18 at 21:00 Calcium/Vitamin D (Oyster Shell/ Vit-D (500/200)) 1 tab DAILY PO Last administered on 12/07/18 08:55; Admin Dose 1 TAB; Start 11/24/18 at 09:30 Metoprolol Tartrate (Lopressor) 5 mg Q4H PRN IV HR>110 Hold SBP<100; Start 11/24/18 at 11:00 Diltiazem HCl (Cardizem Sr) 120 mg DAILY PO ; Start 11/25/18 at 14:00; Status Hold Cefepime HCl 50 ml @ 100 mls/hr Q24H IVPB Last administered on 12/06/18at 12:04; Admin Dose 100 MLS/HR; Start 11/26/18 at 12:00 IV Flush (NS 10 ml) 10 ml PRN PRN IV IV PROTOCOL; Start 11/25/18 at 16:00 Hydralazine HCl (Apresoline) 25 mg Q8 PO Last administered on 12/07/18at 06:37; Admin Dose 25 MG; Start 11/26/18 at 22:00 Pantoprazole (Protonix Iv) 40 mg DAILY@06 IV Last administered on 12/07/18at 05:53; Admin Dose 40 MG; Start 11/29/18 at 06:00 Diagnostic Test (Pha) (Accu-Chek) 1 ea 02 XX Last administered on 12/06/18at 01:46; Admin Dose 1 EA; Start 12/01/18 at 02:00 Insulin Aspart (Novolog Insulin Pen) (Adult SC Insulin - Mild Algorithm)... Q4 SC ; Start 11/30/18 at 09:00 Miscellaneous Information 1 ea NOTE XX ; Start 11/30/18 at 08:00 Glucose (Glutose) 15 gm Q15M PRN PO DECREASED GLUCOSE; Start 11/30/18 at 08:00 Glucose (Glutose) 22.5 gm Q15M PRN PO DECREASED GLUCOSE; Start 11/30/18 at 08:00 Dextrose (D50w Syringe) 25 ml Q15M PRN IV DECREASED GLUCOSE; Start 11/30/18 at 08:00 Dextrose (D50w Syringe) 50 ml Q15M PRN IV DECREASED GLUCOSE; Start 11/30/18 at 08:00 Glucagon (Glucagen) 1 mg Q15M PRN IM DECREASED GLUCOSE; Start 11/30/18 at 08:00 Glucose (Glutose) 15 gm Q15M PRN BUCCAL DECREASED GLUCOSE; Start 11/30/18 at 08:00 Midazolam HCl 50 ml @ 1 mls/hr TITRATE IV Last administered on 12/03/18at 03:19; Admin Dose 4 MLS/HR; Start 12/02/18 at 07:00 Norepinephrine 16 mg/Dextrose 500 ml @ 1.88 mls/hr TITRATE IV Last administered on 12/02/18at 10:03; Admin Dose 9.383 MLS/HR; Start 12/02/18 at 09:30 Fentanyl 100 ml @ 2.5 mls/hr TITRATE IV Last administered on 12/06/18at 00:54; Admin Dose 2.5 MLS/HR; Start 12/02/18 at 10:30 Acetaminophen (Tylenol Tab) 650 mg Q4H PRN PO mild pain Last administered on 12/05/18at 01:13; Admin Dose 650 MG; Start 12/02/18 at 12:00 Morphine Sulfate (morphine) 2 mg Q2H PRN IV moderate to severe pain; Start 12/02/18 at 12:00 Al Hydrox/Mg Hydrox/Simethicone (Mag-Al Plus) 30 ml Q4H PRN PO GASTROINTESTINAL UPSET; Start 12/02/18 at 12:00 Ondansetron HCl (Zofran Inj) 4 mg Q4H PRN IV NAUSEA AND/OR VOMITING; Start 12/02/18 at 12:00 Collagenase (Santyl) 1 applic DAILY TOP Last administered on 12/06/18 08:05; Admin Dose 1 APPLIC; Start 12/03/18 at 14:00 Furosemide (Lasix) 40 mg BID DIURETICS IV Last administered on 12/07/18 05:53; Admin Dose 40 MG; Start 12/04/18 at 09:30 Aspirin (Aspirin) 81 mg DAILY NGT Last administered on 12/07/18 08:56; Admin Dose 81 MG; Start 12/06/18 at 09:00 Heparin Sodium (Porcine) (Heparin (5000 Units/1ml)) 5,000 unit BID SC Last administered on 12/07/18 08:57; Admin Dose 5,000 UNIT; Start 12/06/18 at 21:00 OK SOOD Dec 07, 2018 09:24
--- NOTE | 2018-12-07 10:00 | NUR ---
SS NOTE: F/U MET WITH PT'S SON, PAWAN. SON EXPRESSED FRUSTRATION PT'S CONDITION IS NOT IMPROVING. SON INQUIRED ABOUT TRANSFERRING PT TO ANOTHER HOSPITAL. SW EXPLAINED THE PROCESS OF TRANSFERRING PT FOR HIGHER LEVEL OF CARE VS LATERAL TRANSFER. SON STATED THAT IN ACTUALITY, HE DOESN'T WANT TO TRANSFER PT BUT HE IS JUST THINKING OF WHAT HIS OPTIONS ARE AND WHAT TO DO FOR PT. SW PROVIDED EMOTIONAL SUPPORT. ENCOURAGED HIM TO CONTINUE TO SPEAK WITH DOCTORS RE: PT'S CONDITION AND PLAN OF CARE. SON VERBALIZED UNDERSTANDING. SW WILL CONTINUE TO REMAIN AVAILABLE NEEDED.
--- NOTE | 2018-12-07 10:20 | PN ---
Date/Time of Note Date/Time of Note DATE: 12/07/18 TIME: 10:14 Assessment/Plan VTE Prophylaxis Risk score (from [facility])>0 risk: 11 SCD applied (from [facility]): No SCD contraindicated: other Pharmacological prophylaxis: heparin Lines/Catheters IV Catheter Type (from [facility]): Central Line Central line still needed: Yes Urinary Cath still in place: Yes Reason Cath still needed: urinary retention Assessment/Plan Hospital Course S: Patient still on low-dose pressor support, still intubated. Having less urine output overall in the last 24 hours despite IV Lasix and albumin given yesterday. Seen by pulmonary team this morning. O: VS - see below PE: Const: Lying in bed, family at the bedside Head: Atraumatic, normocephalic Eyes: Normal Conjunctiva, PERRLA, EOMI, normal sclera, no nystagmus ENT: Normal External Ears, Nose and Mouth, moist mucus membranes. Neck: Supple Resp: Some increased work of breathing, still some bilateral rhonchi and wheezes decreased breath sounds in the bases Cardio: Regular rate and rhythm, no murmurs, S1 S2 present Abd: Soft, non tender x 4, slight distention. 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 2D echo November 24, 2018: Conclusions Normal left ventricular systolic function. Normal left ventricular cavity size. Sigmoid septum. Ejection fraction is visually estimated at 55 %. Normal right ventricular systolic function. Moderate enlargement of right ventricle. There is mild enlargement of left atrium. There is mild enlargement of right atrium. Mild mitral leaflet calcification. Mild mitral annular calcification. Trace mitral regurgitation. Normal appearance of the tricuspid valve. There is trace tricuspid regurgitation. Assessment/Plan: 78-year-old male recently diagnosed with new colon mass, who presents with: # Hypoxic and hypercapnic respiratory failure: Appears to be due to pulmonary edema and possible pneumonia- Failed BiPAP, intubated 12/02. Presently still intubated. Presently on low-dose levophed still. -We will stop IV cefepime for now. - Continue Daily weaning trials per pulmonary recommendations # Sepsis: As evidenced by fever and tachycardia 3 days ago: Secondary to likely fungal UTI now, as UA from yesterday positive and urine culture from yesterday also showing Rosalie growth greater than 100,000 colony-forming units -We will start fluconazole # Cardiac- elevated troponins: - Got cardiac cath 12/02, clear coronaries. -Continue aspirin and statin for now, follow up cardiology recommendations # Sigmoid mass: Status post biopsy during recent hospitalization. 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 Mass is almost completely obstructive. Patient received rectal stent on December [address] Fang. -Monitor for now, Per discussion between hospitalist and Dr. Juan on 12/01, patient is not currently a surgical candidate due to his acute illness but may get surgery if he improves. -Per hematology oncology, it appears he has localized disease. Per their input, surgical resection is optimal treatment if he ever becomes stable for surgery. They have also stated typically radiation has no role in localized colon ca (radiation can play a role in palliative tx of met colon if painful site of metastatic disease for example). # Atrial fibrillation with RVR - resolved now -Continue to monitor, follow-up cardiology recommendations # Renal insufficiency: Oliguric acute on chronic renal failure. This was likely due to obstructive uropathy Being followed by renal team. Again in the last 48 hours to BUN and creatinine levels have been rising, urine output has decreased as well over this time.. Patient given albumin yesterday. -Continue monitor urine output, Ballard catheter in place, follow-up renal recommendations -For now will hold IV Lasix #Hypernatremia -resolved -Monitor for now # Diabetes: Sugar stable, continue insulin while in-house DVT: Heparin GI: PPI Code status: Full. Family wants everything done to treat his multiorgan failure and cancer. Critical care time spent on patient care today equals 45 minutes. Result Diagram: 12/07/18 0420 12/07/18 0420 Results 24hrs Laboratory Tests Test 12/06/18 10:25 12/06/18 12:08 12/06/18 16:31 12/06/18 21:40 Urine Color YELLOW Urine Clarity CLOUDY A Urine pH 5.0 Urine Specific 1.012 [place] Urine Ketones NEGATIVE Urine Nitrite NEGATIVE Urine Bilirubin NEGATIVE Urine Urobilinogen NEGATIVE Urine Leukocyte 3+ H Esterase Urine Microscopic 93 H RBC Urine Microscopic 130 H WBC Urine Bacteria FEW A Urine Mucus FEW A Urine Yeast MANY A (Budding) Urine Hemoglobin 2+ H Urine Glucose NEGATIVE Urine Total Protein 2+ H Bedside Glucose 115 119 135 Test 12/07/18 01:19 12/07/18 04:20 12/07/18 05:45 12/07/18 09:05 Bedside Glucose 134 140 137 White Blood Count 10.3 Red Blood Count 3.56 L Hemoglobin 8.0 L Hematocrit 30.1 L Mean Corpuscular 84.6 Volume Mean Corpuscular 22.5 L Hemoglobin Mean Corpuscular 26.6 L Hemoglobin Concent Red Cell 29.8 H Distribution Width Platelet Count 217 Mean Platelet Volume Immature 0.400 Granulocytes % Neutrophils % 72.9 Lymphocytes % 15.9 Monocytes % 5.9 Eosinophils % 4.7 Basophils % 0.2 Nucleated Red Blood 0.0 Cells % Immature 0.040 H Granulocytes # Neutrophils # 7.5 Lymphocytes # 1.6 Monocytes # 0.6 Eosinophils # 0.5 Basophils # 0.0 Nucleated Red Blood 0.0 Cells # Sodium Level 141 Potassium Level 3.5 Chloride Level 100 Carbon Dioxide Level 32 H Anion Gap 9 Blood Urea Nitrogen 82 H Creatinine 4.13 H Est Glomerular Filtrat Rate mL/min Glucose Level 113 Calcium Level 8.6 Total Bilirubin 0.1 L Direct Bilirubin 0.00 Indirect Bilirubin 0.1 Aspartate Amino 25 Transf (AST/SGOT) Alanine 23 Aminotransferase (AL T/SGPT) Alkaline Phosphatase 61 Total Protein 6.5 Albumin 3.3 Globulin 3.20 Albumin/Globulin 1.03 Ratio Exam/Review of Systems Vital Signs Vitals Vital Signs Date Temp Pulse Resp B/P (MAP) Pulse Ox O2 O2 Flow FiO2 Time Delivery Rate 12/07/18 78 08:00 12/07/18 98.0 18 107/56 95 Mechanical 07:45 (73) Ventilator 12/07/18 30 05:30 Intake and Output 12/06/18 12/06/18 12/07/18 1515:00 23:00 07:00 IntakeIntake Total 858.00 ml 724.00 ml 467.24 ml OutputOutput Total 160 ml 120 ml 80 ml BalanceBalance 698.00 ml 604.00 ml 387.24 ml Medications Medications Current Medications Acetaminophen (Tylenol Liquid) 650 mg Q6H PRN PO PAIN LEVEL 1-3 OR FEVER Last administered on 12/02/18 02:31; Admin Dose 650 MG; Start 11/23/18 at 22:30 Acetaminophen (Tylenol Supp) 650 mg Q4H PRN [place] PAIN LEVEL 1-3 OR FEVER Last administered on 12/02/18 21:21; Admin Dose 650 MG; Start 11/23/18 at 22:30 Atorvastatin Calcium (Lipitor) 20 mg HS PO Last administered on 12/06/18 21:42; Admin Dose 20 MG; Start 11/24/18 at 21:00 Albuterol/ Ipratropium (Duoneb) 3 ml Q4H RESP THERAPY PRN HHN SHORTNESS OF BREATH; Start 11/24/18 at 09:00 Aripiprazole (Abilify) 5 mg DAILY PO Last administered on 12/07/18 09:03; Admin Dose 5 MG; Start 11/24/18 at 09:30 Digoxin (Digoxin) 0.25 mg DAILY@1300 PO Last administered on 11/26/18 13:41; Admin Dose 0.25 MG; Start 11/24/18 at 13:00; Status Hold Escitalopram Oxalate (Lexapro) 20 mg DAILY PO Last administered on 12/07/18 08:55; Admin Dose 20 MG; Start 11/24/18 at 09:30 Loratadine (Claritin) 10 mg DAILY PO Last administered on 12/07/18 09:03; Admin Dose 10 MG; Start 11/24/18 at 10:00 Multivitamins Therapeutic (Theragran) 1 tab DAILY PO Last administered on 12/07/18 08:56; Admin Dose 1 TAB; Start 11/24/18 at 09:30 Potassium Chloride (Micro-K) 8 meq DAILY PO Last administered on 11/24/18 10:12; Admin Dose 8 MEQ; Start 11/24/18 at 10:00; Status Hold Tamsulosin HCl (Flomax) 0.4 mg HS PO Last administered on 12/06/18 21:42; Admin Dose 0.4 MG; Start 11/24/18 at 21:00 Calcium/Vitamin D (Oyster Shell/ Vit-D (500/200)) 1 tab DAILY PO Last administered on 12/07/18at 08:55; Admin Dose 1 TAB; Start 11/24/18 at 09:30 Metoprolol Tartrate (Lopressor) 5 mg Q4H PRN IV HR>110 Hold SBP<100; Start 11/24/18 at 11:00 Diltiazem HCl (Cardizem Sr) 120 mg DAILY PO ; Start 11/25/18 at 14:00; Status Hold IV Flush (NS 10 ml) 10 ml PRN PRN IV IV PROTOCOL; Start 11/25/18 at 16:00 Hydralazine HCl (Apresoline) 25 mg Q8 PO Last administered on 12/07/18at 06:37; Admin Dose 25 MG; Start 11/26/18 at 22:00 Pantoprazole (Protonix Iv) 40 mg DAILY@06 IV Last administered on 12/07/18at 05:53; Admin Dose 40 MG; Start 11/29/18 at 06:00 Diagnostic Test (Pha) (Accu-Chek) 1 ea 02 XX Last administered on 12/06/18at 01:46; Admin Dose 1 EA; Start 12/01/18 at 02:00 Insulin Aspart (Novolog Insulin Pen) (Adult SC Insulin - Mild Algorithm)... Q4 SC ; Start 11/30/18 at 09:00 Miscellaneous Information 1 ea NOTE XX ; Start 11/30/18 at 08:00 Glucose (Glutose) 15 gm Q15M PRN PO DECREASED GLUCOSE; Start 11/30/18 at 08:00 Glucose (Glutose) 22.5 gm Q15M PRN PO DECREASED GLUCOSE; Start 11/30/18 at 08:00 Dextrose (D50w Syringe) 25 ml Q15M PRN IV DECREASED GLUCOSE; Start 11/30/18 at 08:00 Dextrose (D50w Syringe) 50 ml Q15M PRN IV DECREASED GLUCOSE; Start 11/30/18 at 08:00 Glucagon (Glucagen) 1 mg Q15M PRN IM DECREASED GLUCOSE; Start 11/30/18 at 08:00 Glucose (Glutose) 15 gm Q15M PRN BUCCAL DECREASED GLUCOSE; Start 11/30/18 at 08:00 Midazolam HCl 50 ml @ 1 mls/hr TITRATE IV Last administered on 12/03/18 03:19; Admin Dose 4 MLS/HR; Start 12/02/18 at 07:00 Norepinephrine 16 mg/Dextrose 500 ml @ 1.88 mls/hr TITRATE IV Last adm inistered on 12/02/18 10:03; Admin Dose 9.383 MLS/HR; Start 12/02/18 at 09:30 Fentanyl 100 ml @ 2.5 mls/hr TITRATE IV Last administered on 12/06/18 00:54; Admin Dose 2.5 MLS/HR; Start 12/02/18 at 10:30 Acetaminophen (Tylenol Tab) 650 mg Q4H PRN PO mild pain Last administered on 12/05/18 01:13; Admin Dose 650 MG; Start 12/02/18 at 12:00 Morphine Sulfate (morphine) 2 mg Q2H PRN IV moderate to severe pain; Start 12/02/18 at 12:00 Al Hydrox/Mg Hydrox/Simethicone (Mag-Al Plus) 30 ml Q4H PRN PO GASTROINTESTINAL UPSET; Start 12/02/18 at 12:00 Ondansetron HCl (Zofran Inj) 4 mg Q4H PRN IV NAUSEA AND/OR VOMITING; Start 12/02/18 at 12:00 Collagenase (Santyl) 1 applic DAILY TOP Last administered on 12/06/18 08:05; Admin Dose 1 APPLIC; Start 12/03/18 at 14:00 Furosemide (Lasix) 40 mg BID DIURETICS IV Last administered on 12/07/18 05:53; Admin Dose 40 MG; Start 12/04/18 at 09:30; Status Hold Aspirin (Aspirin) 81 mg DAILY NGT Last administered on 12/07/18 08:56; Admin Dose 81 MG; Start 12/06/18 at 09:00 Heparin Sodium (Porcine) (Heparin (5000 Units/1ml)) 5,000 unit BID SC Last ad ministered on 12/07/18 08:57; Admin Dose 5,000 UNIT; Start 12/06/18 at 21:00 NAYANA GARCIA Dec 07, 2018 10:20
--- NOTE | 2018-12-07 11:15 | NUR ---
Patient placed on CPAP trial PEEP 5, PS 10, FI02 40%. Pt. calm, no respiratory distress noted. ABG done after 1 hour with result as follow PH 7.30,PC02 69, on the monitor etCO2 >55, Dr Neil was notified, new orders was obtained to place patient back on previous AC settings.
--- NOTE | 2018-12-07 11:41 | CONS ---
Date/Time of Note Date/Time of Note DATE: 12/07/18 TIME: 11:32 Assessment/Plan Assessment/Plan Assessment/Plan This is an unfortunate 78 yo with # nearly obstructive colon ca -he has very poor performance status and multiple co-morbidities/multiple medical complications -SP intubated - Per surgery patient is not a resection candidate - s/p rectal stent - Chemo only if patient is medically stable # anemia-hgb 8.0 due to colon ca iron studies - ordered to determine if he needs iron supplementation; fu #CAD s/p cardiac cath, no critical obstruction #ANEMIA due to colon mass, hgb stable keep >7 A total of 50 minutes of face to face time was spent speaking with the patient and his sister of which greater than 50% was spent in counseling and coordination of care and the detailed question and answer session. Dw staff Patient seen in collaboration with Dr Langley Result Diagram: 12/07/1841912/07/18 0420 Results 24hrs Laboratory Tests Test 12/06/18 12:08 12/06/18 16:31 12/06/18 21:40 12/07/18 01:19 Bedside Glucose 115 119 135 134 Test 12/07/18 04:20 12/07/18 05:45 12/07/18 09:05 White Blood Count 10.3 Red Blood Count 3.56 L Hemoglobin 8.0 L Hematocrit 30.1 L Mean Corpuscular 84.6 Volume Mean Corpuscular 22.5 L Hemoglobin Mean Corpuscular 26.6 L Hemoglobin Concent Red Cell 29.8 H Distribution Width Platelet Count 217 Mean Platelet Volume Immature 0.400 Granulocytes % Neutrophils % 72.9 Lymphocytes % 15.9 Monocytes % 5.9 Eosinophils % 4.7 Basophils % 0.2 Nucleated Red Blood 0.0 Cells % Immature 0.040 H Granulocytes # Neutrophils # 7.5 Lymphocytes # 1.6 Monocytes # 0.6 Eosinophils # 0.5 Basophils # 0.0 Nucleated Red Blood 0.0 Cells # Sodium Level 141 Potassium Level 3.5 Chloride Level 100 Carbon Dioxide Level 32 H Anion Gap 9 Blood Urea Nitrogen 82 H Creatinine 4.13 H Est Glomerular Filtrat Rate mL/min Glucose Level 113 Calcium Level 8.6 Total Bilirubin 0.1 L Direct Bilirubin 0.00 Indirect Bilirubin 0.1 Aspartate Amino 25 Transf (AST/SGOT) Alanine 23 Aminotransferase (AL T/SGPT) Alkaline Phosphatase 61 Total Protein 6.5 Albumin 3.3 Globulin 3.20 Albumin/Globulin 1.03 Ratio Bedside Glucose 140 137 Consultation Date/Type/Reason Admit Date/Time Nov 23, 2018 at 10:01 pm Initial Consult Date 11/24/18 Type of Consult ONCOLOGY Reason for Consultation Colon Cancer Requesting Provider: NAYANA GARCIA 24 HR Interval Summary Free Text/Dictation resting sp rectal stent no gi bleed reported no new events reported last night dw staff Subjective hx not possible: pt non-verbal ( ), pt critical status Constitutional: requiring O2 Exam/Review of Systems Vital Signs Vitals Vital Signs Date Temp Pulse Resp B/P (MAP) Pulse Ox O2 O2 Flow FiO2 Time Delivery Rate 12/07/18 40 11:15 12/07/18 78 08:00 12/07/18 98.0 18 107/56 95 Mechanical 07:45 (73) Ventilator Intake and Output 12/06/18 12/06/18 12/07/18 1515:00 23:00 07:00 IntakeIntake Total 858.00 ml 724.00 ml 473.99 ml OutputOutput Total 160 ml 120 ml 80 ml BalanceBalance 698.00 ml 604.00 ml 393.99 ml Exam Constitutional: alert, non-verbal, frail Psych: nl mood/affect Eyes: nl lids ENMT: nl external ears & nose Neck: other (et TUBE INTACT) Respiratory: diminished breath sounds Cardiovascular: nl pulses, other (S1S2) Gastrointestinal: soft Musculoskeletal: muscle weakness, range of motion Extremities: edema Neurological: lethargic Medications Medications Current Medications Acetaminophen (Tylenol Liquid) 650 mg Q6H PRN PO PAIN LEVEL 1-3 OR FEVER Last administered on 12/02/18at 02:31; Admin Dose 650 MG; Start 11/23/18 at 22:30 Acetaminophen (Tylenol Supp) 650 mg Q4H PRN NV PAIN LEVEL 1-3 OR FEVER Last administered on 12/02/18at 21:21; Admin Dose 650 MG; Start 11/23/18 at 22:30 Atorvastatin Calcium (Lipitor) 20 mg HS PO Last administered on 12/06/18at 21:42; Admin Dose 20 MG; Start 11/24/18 at 21:00 Albuterol/ Ipratropium (Duoneb) 3 ml Q4H RESP THERAPY PRN HHN SHORTNESS OF BREATH; Start 11/24/18 at 09:00 Aripiprazole (Abilify) 5 mg DAILY PO Last administered on 12/07/18 09:03; Admin Dose 5 MG; Start 11/24/18 at 09:30 Digoxin (Digoxin) 0.25 mg DAILY@1300 PO Last administered on 11/26/18at 13:41; Admin Dose 0.25 MG; Start 11/24/18 at 13:00; Status Hold Escitalopram Oxalate (Lexapro) 20 mg DAILY PO Last administered on 12/07/18 08:55; Admin Dose 20 MG; Start 11/24/18 at 09:30 Loratadine (Claritin) 10 mg DAILY PO Last administered on 12/07/18 09:03; Admin Dose 10 MG; Start 11/24/18 at 10:00 Multivitamins Therapeutic (Theragran) 1 tab DAILY PO Last administered on 12/07/18 08:56; Admin Dose 1 TAB; Start 11/24/18 at 09:30 Potassium Chloride (Micro-K) 8 meq DAILY PO Last administered on 11/24/18at 10:12; Admin Dose 8 MEQ; Start 11/24/18 at 10:00; Status Hold Tamsulosin HCl (Flomax) 0.4 mg HS PO Last administered on 12/06/18 21:42; Admin Dose 0.4 MG; Start 11/24/18 at 21:00 Calcium/Vitamin D (Oyster Shell/ Vit-D (500/200)) 1 tab DAILY PO Last administered on 12/07/18 08:55; Admin Dose 1 TAB; Start 11/24/18 at 09:30 Metoprolol Tartrate (Lopressor) 5 mg Q4H PRN IV HR>110 Hold SBP<100; Start 11/24/18 at 11:00 Diltiazem HCl (Cardizem Sr) 120 mg DAILY PO ; Start 11/25/18 at 14:00; Status Hold IV Flush (NS 10 ml) 10 ml PRN PRN IV IV PROTOCOL; Start 11/25/18 at 16:00 Hydralazine HCl (Apresoline) 25 mg Q8 PO Last administered on 12/07/18 06:37; Admin Dose 25 MG; Start 11/26/18 at 22:00 Pantoprazole (Protonix Iv) 40 mg DAILY@06 IV Last administered on 12/07/18at 05:53; Admin Dose 40 MG; Start 11/29/18 at 06:00 Diagnostic Test (Pha) (Accu-Chek) 1 ea 02 XX Last administered on 12/06/18at 01:46; Admin Dose 1 EA; Start 12/01/18 at 02:00 Insulin Aspart (Novolog Insulin Pen) (Adult SC Insulin - Mild Algorithm)... Q4 SC ; Start 11/30/18 at 09:00 Miscellaneous Information 1 ea NOTE XX ; Start 11/30/18 at 08:00 Glucose (Glutose) 15 gm Q15M PRN PO DECREASED GLUCOSE; Start 11/30/18 at 08:00 Glucose (Glutose) 22.5 gm Q15M PRN PO DECREASED GLUCOSE; Start 11/30/18 at 08:00 Dextrose (D50w Syringe) 25 ml Q15M PRN IV DECREASED GLUCOSE; Start 11/30/18 at 08:00 Dextrose (D50w Syringe) 50 ml Q15M PRN IV DECREASED GLUCOSE; Start 11/30/18 at 08:00 Glucagon (Glucagen) 1 mg Q15M PRN IM DECREASED GLUCOSE; Start 11/30/18 at 08:00 Glucose (Glutose) 15 gm Q15M PRN BUCCAL DECREASED GLUCOSE; Start 11/30/18 at 08:00 Midazolam HCl 50 ml @ 1 mls/hr TITRATE IV Last administered on 12/03/18at 03:19; Admin Dose 4 MLS/HR; Start 12/02/18 at 07:00 Norepinephrine 16 mg/Dextrose 500 ml @ 1.88 mls/hr TITRATE IV Last administered on 12/02/18at 10:03; Admin Dose 9.383 MLS/HR; Start 12/02/18 at 09:30 Fentanyl 100 ml @ 2.5 mls/hr TITRATE IV Last administered on 12/06/18at 00:54; Admin Dose 2.5 MLS/HR; Start 12/02/18 at 10:30 Acetaminophen (Tylenol Tab) 650 mg Q4H PRN PO mild pain Last administered on 12/05/18at 01:13; Admin Dose 650 MG; Start 12/02/18 at 12:00 Morphine Sulfate (morphine) 2 mg Q2H PRN IV moderate to severe pain; Start 12/02/18 at 12:00 Al Hydrox/Mg Hydrox/Simethicone (Mag-Al Plus) 30 ml Q4H PRN PO GASTROINTESTINAL UPSET; Start 12/02/18 at 12:00 Ondansetron HCl (Zofran Inj) 4 mg Q4H PRN IV NAUSEA AND/OR VOMITING; Start 12/02/18 at 12:00 Collagenase (Santyl) 1 applic DAILY TOP Last administered on 12/06/18at 08:05; Admin Dose 1 APPLIC; Start 12/03/18 at 14:00 Furosemide (Lasix) 40 mg BID DIURETICS IV Last administered on 12/07/18at 05:53; Admin Dose 40 MG; Start 12/04/18 at 09:30; Status Hold Aspirin (Aspirin) 81 mg DAILY NGT Last administered on 12/07/18at 08:56; Admin Dose 81 MG; Start 12/06/18 at 09:00 Heparin Sodium (Porcine) (Heparin (5000 Units/1ml)) 5,000 unit BID SC Last administered on 12/07/18at 08:57; Admin Dose 5,000 UNIT; Start 12/06/18 at 21:00 Fluconazole 100 ml @ 100 mls/hr Q24H IVPB ; Start 12/07/18 at 11:00 DORIAN MOSS Dec 07, 2018 11:41 am
[2018-12-07] MEDS: COLLAGENASE 5 GM (UD JAR) TOP SCH (11:57)
[2018-12-07] MEDS: FLUCONAZOLE 200 MG (PMX) 100 ML IVPB SCH (11:57)
[2018-12-07] MEDS: FENTAnyl (DRIP) 1000 mcg/100mL 100 ML IV SCH (12:01)
--- NOTE | 2018-12-07 14:22 | CONS ---
Date/Time of Note Date/Time of Note DATE: 12/07/18 TIME: 14:21 Assessment/Plan Assessment/Plan Assessment/Plan 1. Oliguric Acute on chronic renal failure due to Sepsis and Hemodynamics + obstructive uropathy 2. atrial fibrillation with RVR 3. acute hypoxemic and hypercapnic resp failure due to PNA - failed BIPAP; int ubated 4. Sepsis 5. Positive troponin 6. BPH on flomax 7. Colon CA Plan: BUN/Cr continues to rise 82/4.13,Urine output dropped to 390cc/24 hr, pt is on BIPAP, moderate distress , stop IV lasix- will give IVF NS x 1 liter today and reassess BUN/Cr in AM S/p LHC which showed moderate Nonobstructive CAD - medical management SP Colonoscopy with stent placement by GI - Discussed with son- patient remains full code ; family wants HD if needed - currently no acute indication for HD at this time - if BUN/Cr continues to rise in AM labs and urine output drops then we will discuss with family about hD initiation will follow up Result Diagram: 12/07/18 0420 12/07/18 0420 Results 24hrs Laboratory Tests Test 12/06/18 16:31 12/06/18 21:40 12/07/18 01:19 12/07/18 04:20 Bedside Glucose 119 135 134 White Blood Count 10.3 Red Blood Count 3.56 L Hemoglobin 8.0 L Hematocrit 30.1 L Mean Corpuscular 84.6 Volume Mean Corpuscular 22.5 L Hemoglobin Mean Corpuscular 26.6 L Hemoglobin Concen t Red Cell 29.8 H Distribution Width Platelet Count 217 Mean Platelet Volume Immature 0.400 Granulocytes % Neutrophils % 72.9 Lymphocytes % 15.9 Monocytes % 5.9 Eosinophils % 4.7 Basophils % 0.2 Nucleated Red 0.0 Blood Cells % Immature 0.040 H Granulocytes # Neutrophils # 7.5 Lymphocytes # 1.6 Monocytes # 0.6 Eosinophils # 0.5 Basophils # 0.0 Nucleated Red 0.0 Blood Cells # Sodium Level 141 Potassium Level 3.5 Chloride Level 100 Carbon Dioxide 32 H Level Anion Gap 9 Blood Urea 82 H Nitrogen Creatinine 4.13 H Est Glomerular Filtrat Rate mL/min Glucose Level 113 Calcium Level 8.6 Total Bilirubin 0.1 L Direct Bilirubin 0.00 Indirect 0.1 Bilirubin Aspartate Amino 25 Transf (AST/SGOT) Alanine 23 Aminotransferase (ALT/SGPT) Alkaline 61 Phosphatase Total Protein 6.5 Albumin 3.3 Globulin 3.20 Albumin/Globulin 1.03 Ratio Test 12/07/18 05:45 12/07/18 09:05 12/07/18 11:56 12/07/18 12:15 Bedside Glucose 140 137 116 Blood Gas Blood arterial Specimen Source Arterial Blood 12/07/2018 12:06: Date Drawn 44 PM Arterial Blood pH 7.300 L (Temp corrected) Arterial Blood 69.0 H pCO2 (Temp correct) Arterial Blood 81.9 pO2 (Temp corrected) Arterial Blood 33.2 H HCO3 Arterial Blood 5.5 H Base Excess Arterial Blood 95.2 Oxygen Saturation Nilson Test N/A Arterial Blood Right Brachial Gas Puncture Site Arterial 1.0 Blood Carboxyhemo globin Arterial Blood 0.4 Methemoglobin Blood Gas A-a O2 124.0 H Differential Oxyhemoglobin 93.9 Percent Blood Gas 37.0 Temperature Blood Gas Actual 18 Respiration Rate Blood Gas VENT - CPAP Modality FiO2 40.0 Blood Gas Low 5.0 PEEP Setting Blood Gas 10 Pressure Support Blood Gas TM Notified Whom Blood Gas 12/07/2018 12:14: Notified Time 23 PM Consultation Date/Type/Reason Admit Date/Time Nov 23, 2018 at 22:01 Initial Consult Date 11/24/18 Type of Consult NEPHROLOGY Requesting Provider: NAYANA GARCIA 24 HR Interval Summary Free Text/Dictation BUN/Cr continues to rise,Urine output dropped to 390cc/24 hr, pt is on BIPAP, moderate distress Exam/Review of Systems Vital Signs Vitals Vital Signs Date Temp Pulse Resp B/P (MAP) Pulse Ox O2 O2 Flow FiO2 Time Delivery Rate 12/07/18 30 13:00 12/07/18 73 16 100/52 98 Mechanical 12:45 (68) Ventilator 12/07/18 97.9 12:00 Intake and Output 12/06/18 12/06/18 12/07/18 1515:00 23:00 07:00 IntakeIntake Total 858.00 ml 724.00 ml 533.99 ml OutputOutput Total 160 ml 120 ml 90 ml BalanceBalance 698.00 ml 604.00 ml 443.99 ml Exam Constitutional: moderate distress, confused disoriented on BIPAP Respiratory: Bilateral coarse BS+, basilar crackles Cardiovascular: regular rate and rhythm, nl pulses Gastrointestinal: soft, non-tender Musculoskeletal: 1-2+ pitting edema Neurological: confused, lethargic Medications Medications Current Medications Acetaminophen (Tylenol Liquid) 650 mg Q6H PRN PO PAIN LEVEL 1-3 OR FEVER Last administered on 12/02/18 02:31; Admin Dose 650 MG; Start 11/23/18 at 22:30 Acetaminophen (Tylenol Supp) 650 mg Q4H PRN MD PAIN LEVEL 1-3 OR FEVER Last administered on 12/02/18 21:21; Admin Dose 650 MG; Start 11/23/18 at 22:30 Atorvastatin Calcium (Lipitor) 20 mg HS PO Last administered on 12/06/18 21:42; Admin Dose 20 MG; Start 11/24/18 at 21:00 Albuterol/ Ipratropium (Duoneb) 3 ml Q4H RESP THERAPY PRN HHN SHORTNESS OF BREATH; Start 11/24/18 at 09:00 Aripiprazole (Abilify) 5 mg DAILY PO Last administered on 12/07/18 09:03; Admin Dose 5 MG; Start 11/24/18 at 09:30 Digoxin (Digoxin) 0.25 mg DAILY@1300 PO Last administered on 11/26/18 13:41; Admin Dose 0.25 MG; Start 11/24/18 at 13:00; Status Hold Escitalopram Oxalate (Lexapro) 20 mg DAILY PO Last administered on 12/07/18 08:55; Admin Dose 20 MG; Start 11/24/18 at 09:30 Loratadine (Claritin) 10 mg DAILY PO Last administered on 12/07/18 09:03; Admin Dose 10 MG; Start 11/24/18 at 10:00 Multivitamins Therapeutic (Theragran) 1 tab DAILY PO Last administered on 12/07/18 08:56; Admin Dose 1 TAB; Start 11/24/18 at 09:30 Potassium Chloride (Micro-K) 8 meq DAILY PO Last administered on 11/24/18 10:12; Admin Dose 8 MEQ; Start 11/24/18 at 10:00; Status Hold Tamsulosin HCl (Flomax) 0.4 mg HS PO Last administered on 12/06/18 21:42; Admin Dose 0.4 MG; Start 11/24/18 at 21:00 Calcium/Vitamin D (Oyster Shell/ Vit-D (500/200)) 1 tab DAILY PO Last administered on 12/07/18at 08:55; Admin Dose 1 TAB; Start 11/24/18 at 09:30 Metoprolol Tartrate (Lopressor) 5 mg Q4H PRN IV HR>110 Hold SBP<100; Start 11/24/18 at 11:00 Diltiazem HCl (Cardizem Sr) 120 mg DAILY PO ; Start 11/25/18 at 14:00; Status Hold IV Flush (NS 10 ml) 10 ml PRN PRN IV IV PROTOCOL; Start 11/25/18 at 16:00 Hydralazine HCl (Apresoline) 25 mg Q8 PO Last administered on 12/07/18at 06:37; Admin Dose 25 MG; Start 11/26/18 at 22:00 Pantoprazole (Protonix Iv) 40 mg DAILY@06 IV Last administered on 12/07/18at 05:53; Admin Dose 40 MG; Start 11/29/18 at 06:00 Diagnostic Test (Pha) (Accu-Chek) 1 ea 02 XX Last administered on 12/06/18at 01:46; Admin Dose 1 EA; Start 12/01/18 at 02:00 Insulin Aspart (Novolog Insulin Pen) (Adult SC Insulin - Mild Algorithm)... Q4 SC ; Start 11/30/18 at 09:00 Miscellaneous Information 1 ea NOTE XX ; Start 11/30/18 at 08:00 Glucose (Glutose) 15 gm Q15M PRN PO DECREASED GLUCOSE; Start 11/30/18 at 08:00 Glucose (Glutose) 22.5 gm Q15M PRN PO DECREASED GLUCOSE; Start 11/30/18 at 08:00 Dextrose (D50w Syringe) 25 ml Q15M PRN IV DECREASED GLUCOSE; Start 11/30/18 at 08:00 Dextrose (D50w Syringe) 50 ml Q15M PRN IV DECREASED GLUCOSE; Start 11/30/18 at 08:00 Glucagon (Glucagen) 1 mg Q15M PRN IM DECREASED GLUCOSE; Start 11/30/18 at 08:00 Glucose (Glutose) 15 gm Q15M PRN BUCCAL DECREASED GLUCOSE; Start 11/30/18 at 08:00 Midazolam HCl 50 ml @ 1 mls/hr TITRATE IV Last administered on 12/03/18 03:19; Admin Dose 4 MLS/HR; Start 12/02/18 at 07:00 Norepinephrine 16 mg/Dextrose 500 ml @ 1.88 mls/hr TITRATE IV Last administered on 12/02/18 10:03; Admin Dose 9.383 MLS/HR; Start 12/02/18 at 09:30 Fentanyl 100 ml @ 2.5 mls/hr TITRATE IV Last administered on 12/07/18 12:01; Admin Dose 3 MLS/HR; Start 12/02/18 at 10:30 Acetaminophen (Tylenol Tab) 650 mg Q4H PRN PO mild pain Last administered on 12/05/18 01:13; Admin Dose 650 MG; Start 12/02/18 at 12:00 Morphine Sulfate (morphine) 2 mg Q2H PRN IV moderate to severe pain; Start 12/02/18 at 12:00 Al Hydrox/Mg Hydrox/Simethicone (Mag-Al Plus) 30 ml Q4H PRN PO GASTROINTESTINAL UPSET; Start 12/02/18 at 12:00 Ondansetron HCl (Zofran Inj) 4 mg Q4H PRN IV NAUSEA AND/OR VOMITING; Start 12/02/18 at 12:00 Collagenase (Santyl) 1 applic DAILY TOP Last administered on 12/07/18 11:57; Admin Dose 1 APPLIC; Start 12/03/18 at 14:00 Furosemide (Lasix) 40 mg BID DIURETICS IV Last administered on 12/07/18 05:53; Admin Dose 40 MG; Start 12/04/18 at 09:30; Status Hold Aspirin (Aspirin) 81 mg DAILY NGT Last administered on 12/07/18 08:56; Admin Dose 81 MG; Start 12/06/18 at 09:00 Heparin Sodium (Porcine) (Heparin (5000 Units/1ml)) 5,000 unit BID SC Last administered on 12/07/18 08:57; Admin Dose 5,000 UNIT; Start 12/06/18 at 21:00 Fluconazole 100 ml @ 100 mls/hr Q24H IVPB Last administered on 12/07/18 11:57; Admin Dose 100 MLS/HR; Start 12/07/18 at 11:00 RENAN HERNANDEZ MD Dec 07, 2018 14:22
[2018-12-07] MEDS ORDERED: SOD CHLORIDE 0.45% 1,000 ML IV SCH (14:30)
--- NOTE | 2018-12-07 18:02 | NUR ---
EOSS Patient continues on Levophed at 4 mcg/min to support B/P, on Fentanyl drip increased to 50 mcg/hr per comfort. CPAP trial done for 1 1/2 hour / failed. continue with low urine output 10-5 ml/hour. FI02 increased from 30 to 45% due to desating to 89-90%.TF [id number]. well no residual noted. Patient's son at the bedside updated patient status.
[2018-12-07] MEDS: TAMSULOSIN (SR) 0.4 MG CAP PO SCH (20:48)
[2018-12-07] MEDS: ATORVASTATIN 20 MG TAB PO SCH (20:48)
[2018-12-08] VITALS (108 sets, daily range): BP systolic 89–129; BP diastolic 45–81; PULSE 58–87; RESP 12–26
[2018-12-08] MEDS: Insulin NOVOLOG SS MILD Algorithm (NPO/TPN/ENTERAL FEEDS) SC SCH ×6 (00:18→20:32)
[2018-12-08] MEDS: ACCU-CHEK XX SCH (02:00)
[2018-12-08] MEDS: PANTOPRAZOLE 40 MG INJ IV SCH (05:12)
--- NOTE | 2018-12-08 05:35 | NUR ---
EOSS PT REMAINED STABLE THROUGHOUT SHIFT; FIO2 CHANGED FROM 45%-40%. AFEBRILE. BED BATH GIVEN AND ALL LINES CHANGED. URINE OUTPUT LOW; MD AWARE AND NO ORDERS GIVEN. LEVO REMAINS AT 3MCG AND FENTANYL AT 50 MCG. ALL INFORMATION WILL BE GIVEN TO DAY SHIFT NURSE.
[2018-12-08] MEDS: CALCIUM/VITAMIN D (500/200) TAB PO SCH (08:29)
[2018-12-08] MEDS: MULTIVITAMINS THERAPEUTIC TAB PO SCH (08:29)
[2018-12-08] MEDS: ASPIRIN 325 MG TAB NGT SCH (08:29)
[2018-12-08] MEDS: LORATADINE 10 MG TAB PO SCH (08:29)
[2018-12-08] MEDS: BALSAM PERU/CASTOR OIL 60 GM TUBE TOP SCH ×2 (08:30→20:32)
[2018-12-08] MEDS: ARIPIPRAZOLE 5 MG TAB PO SCH (08:30)
[2018-12-08] MEDS: ESCITALOPRAM 10 MG TAB PO SCH (08:30)
[2018-12-08] MEDS: COLLAGENASE 5 GM (UD JAR) TOP SCH (08:31)
[2018-12-08] MEDS: HEPARIN 5,000 UNIT/1 ML VIAL SC SCH ×2 (08:46→20:42)
[2018-12-08] MEDS ORDERED: MANNITOL 25% 50 ML IV PRN (09:30)
[2018-12-08] MEDS ORDERED: SODIUM CHLORIDE 0.9% 1L BAG IV PRN (09:30)
--- NOTE | 2018-12-08 09:32 | CONS ---
Date/Time of Note Date/Time of Note DATE: 12/08/18 TIME: 09:32 Assessment/Plan Assessment/Plan Assessment/Plan 1. Oliguric Acute on chronic renal failure due to Sepsis and Hemodynamics + obstructive uropathy - Worsening causing uremic encephalopathy 2. atrial fibrillation with RVR- now rate controlled 3. acute hypoxemic and hypercapnic resp failure due to PNA - failed BIPAP; intubated 4. Sepsis 5. Positive troponin 6. BPH on flomax 7. Colon CA Plan: BUN/Cr continues to rise 90/4.29, pt remains intubated on ventilator, Plan for weaning but he is not waking up due to uremia, Discussed with son at bedside, plan for pat catheter placement and will do HD x 2 hr today and 3 hr tomorrow S/p LHC which showed moderate Nonobstructive CAD - medical management SP Colonoscopy with stent placement by GI Full code will follow up Result Diagram: 12/08/18 0400 12/08/18 0400 Results 24hrs Laboratory Tests Test 12/07/18 11:56 12/07/18 12:15 12/07/18 17:03 12/07/18 20:52 Bedside Glucose 116 124 149 Blood Gas Blood arterial Specimen Source Arterial Blood 12/07/2018 12:06: Date Drawn 44 PM Arterial Blood pH 7.300 L (Temp corrected) Arterial Blood 69.0 H pCO2 (Temp correct) Arterial Blood 81.9 pO2 (Temp corrected) Arterial Blood 33.2 H HCO3 Arterial Blood 5.5 H Base Excess Arterial Blood 95.2 Oxygen Saturation Nilson Test N/A Arterial Blood Right Brachial Gas Puncture Site Arterial 1.0 Blood Carboxyhemo globin Arterial Blood 0.4 Methemoglobin Blood Gas A-a O2 124.0 H Differential Oxyhemoglobin 93.9 Percent Blood Gas 37.0 Temperature Blood Gas Actual 18 Respiration Rate Blood Gas VENT - CPAP Modality FiO2 40.0 Blood Gas Low 5.0 PEEP Setting Blood Gas 10 Pressure Support Blood Gas TM Notified Whom Blood Gas 12/07/2018 12:14: Notified Time 23 PM Test 12/08/18 00:18 12/08/18 04:00 12/08/18 04:36 12/08/18 08:44 Bedside Glucose 121 132 145 White Blood Count 9.0 Red Blood Count 3.61 L Hemoglobin 8.0 L Hematocrit 30.5 L Mean Corpuscular 84.5 Volume Mean Corpuscular 22.2 L Hemoglobin Mean Corpuscular 26.2 L Hemoglobin Concen t Red Cell 29.7 H Distribution Width Platelet Count 218 Mean Platelet Volume Immature 0.300 Granulocytes % Neutrophils % 74.5 Lymphocytes % 13.1 L Monocytes % 7.3 Eosinophils % 4.6 Basophils % 0.2 Nucleated Red 0.0 Blood Cells % Immature 0.030 Granulocytes # Neutrophils # 6.7 Lymphocytes # 1.2 Monocytes # 0.7 Eosinophils # 0.4 Basophils # 0.0 Nucleated Red 0.0 Blood Cells # Sodium Level 142 Potassium Level 3.8 Chloride Level 98 Carbon Dioxide 30 Level Anion Gap 14 H Blood Urea 90 H Nitrogen Creatinine 4.29 H Est Glomerular Filtrat Rate mL/min Glucose Level 116 Calcium Level 8.7 Phosphorus Level 4.0 Magnesium Level 2.2 Iron Level 42 Total Iron 216 L Binding Capacity Percent Iron 19 L Saturation Total Bilirubin 0.0 L Direct Bilirubin 0.00 Indirect 0.0 Bilirubin Aspartate Amino 32 Transf (AST/SGOT) Alanine 28 Aminotransferase (ALT/SGPT) Alkaline 58 Phosphatase Total Protein 6.8 Albumin 3.3 Globulin 3.50 H Albumin/Globulin 0.94 Ratio Consultation Date/Type/Reason Admit Date/Time Nov 23, 2018 at 22:01 Initial Consult Date 11/24/18 Type of Consult NEPHROLOGY Requesting Provider: NAYANA GARCIA 24 HR Interval Summary Free Text/Dictation pt remains intubated on ventilator, BUN/Cr worsening, BUN upto 90 Exam/Review of Systems Vital Signs Vitals Vital Signs Date Temp Pulse Resp B/P (MAP) Pulse Ox O2 O2 Flow FiO2 Time Delivery Rate 12/08/18 60 16 97/45 (62) 96 05:30 12/08/18 40 05:21 12/08/18 Mechanical 05:00 Ventilator 12/08/18 97.8 04:00 Intake and Output 12/07/18 12/07/18 12/08/18 1515:00 23:00 07:00 IntakeIntake Total 576.25 ml 974.26 ml 1054.41 ml OutputOutput Total 65 ml 70 ml 62 ml BalanceBalance 511.25 ml 904.26 ml 992.41 ml Exam Constitutional: moderate distress, intubated on ventilator, ET tube in place Respiratory: Bilateral coarse BS+, basilar crackles Cardiovascular: regular rate and rhythm, nl pulses Gastrointestinal: soft, non-tender Musculoskeletal: 1-2+ pitting edema , + hess catheter Neurological: Uncooperative for neuro exam Medications Medications Current Medications Acetaminophen (Tylenol Liquid) 650 mg Q6H PRN PO PAIN LEVEL 1-3 OR FEVER Last administered on 12/02/18 02:31; Admin Dose 650 MG; Start 11/23/18 at 22:30 Acetaminophen (Tylenol Supp) 650 mg Q4H PRN [place] PAIN LEVEL 1-3 OR FEVER Last administered on 12/02/18 21:21; Admin Dose 650 MG; Start 11/23/18 at 22:30 Atorvastatin Calcium (Lipitor) 20 mg HS PO Last administered on 12/07/18 20:48; Admin Dose 20 MG; Start 11/24/18 at 21:00 Albuterol/ Ipratropium (Duoneb) 3 ml Q4H RESP THERAPY PRN HHN SHORTNESS OF BREATH; Start 11/24/18 at 09:00 Aripiprazole (Abilify) 5 mg DAILY PO Last administered on 12/08/18 08:30; Admin Dose 5 MG; Start 11/24/18 at 09:30 Digoxin (Digoxin) 0.25 mg DAILY@1300 PO Last administered on 11/26/18 13:41; Admin Dose 0.25 MG; Start 11/24/18 at 13:00; Status Hold Escitalopram Oxalate (Lexapro) 20 mg DAILY PO Last administered on 12/08/18 08:30; Admin Dose 20 MG; Start 11/24/18 at 09:30 Loratadine (Claritin) 10 mg DAILY PO Last administered on 12/08/18 08:29; Admin Dose 10 MG; Start 11/24/18 at 10:00 Multivitamins Therapeutic (Theragran) 1 tab DAILY PO Last administered on 12/08/18 08:29; Admin Dose 1 TAB; Start 11/24/18 at 09:30 Potassium Chloride (Micro-K) 8 meq DAILY PO Last administered on 11/24/18 10:12; Admin Dose 8 MEQ; Start 11/24/18 at 10:00; Status Hold Tamsulosin HCl (Flomax) 0.4 mg HS PO Last administered on 12/07/18 20:48; Admin Dose 0.4 MG; Start 11/24/18 at 21:00 Calcium/Vitamin D (Oyster Shell/ Vit-D (500/200)) 1 tab DAILY PO Last administered on 12/08/18at 08:29; Admin Dose 1 TAB; Start 11/24/18 at 09:30 Metoprolol Tartrate (Lopressor) 5 mg Q4H PRN IV HR>110 Hold SBP<100; Start 11/24/18 at 11:00 Diltiazem HCl (Cardizem Sr) 120 mg DAILY PO ; Start 11/25/18 at 14:00; Status Hold IV Flush (NS 10 ml) 10 ml PRN PRN IV IV PROTOCOL; Start 11/25/18 at 16:00 Hydralazine HCl (Apresoline) 25 mg Q8 PO Last administered on 12/07/18at 06:37; Admin Dose 25 MG; Start 11/26/18 at 22:00 Pantoprazole (Protonix Iv) 40 mg DAILY@06 IV Last administered on 12/08/18at 05:12; Admin Dose 40 MG; Start 11/29/18 at 06:00 Diagnostic Test (Pha) (Accu-Chek) 1 ea 02 XX Last administered on 12/06/18at 01:46; Admin Dose 1 EA; Start 12/01/18 at 02:00 Insulin Aspart (Novolog Insulin Pen) (Adult SC Insulin - Mild Algorithm)... Q4 SC Last administered on 12/08/18at 08:46; Admin Dose 1 UNIT; Start 11/30/18 at 09:00 Miscellaneous Information 1 ea NOTE XX ; Start 11/30/18 at 08:00 Glucose (Glutose) 15 gm Q15M PRN PO DECREASED GLUCOSE; Start 11/30/18 at 08:00 Glucose (Glutose) 22.5 gm Q15M PRN PO DECREASED GLUCOSE; Start 11/30/18 at 08:00 Dextrose (D50w Syringe) 25 ml Q15M PRN IV DECREASED GLUCOSE; Start 11/30/18 at 08:00 Dextrose (D50w Syringe) 50 ml Q15M PRN IV DECREASED GLUCOSE; Start 11/30/18 at 08:00 Glucagon (Glucagen) 1 mg Q15M PRN IM DECREASED GLUCOSE; Start 11/30/18 at 08:00 Glucose (Glutose) 15 gm Q15M PRN BUCCAL DECREASED GLUCOSE; Start 11/30/18 at 08: 00 Midazolam HCl 50 ml @ 1 mls/hr TITRATE IV Last administered on 12/03/18 03:19; Admin Dose 4 MLS/HR; Start 12/02/18 at 07:00 Norepinephrine 16 mg/Dextrose 500 ml @ 1.88 mls/hr TITRATE IV Last ad ministered on 12/07/18at 22:16; Admin Dose 5.63 MLS/HR; Start 12/02/18 at 09:30 Fentanyl 100 ml @ 2.5 mls/hr TITRATE IV Last administered on 12/07/18 12:01; Admin Dose 3 MLS/HR; Start 12/02/18 at 10:30 Acetaminophen (Tylenol Tab) 650 mg Q4H PRN PO mild pain Last administered on 12/05/18 01:13; Admin Dose 650 MG; Start 12/02/18 at 12:00 Morphine Sulfate (morphine) 2 mg Q2H PRN IV moderate to severe pain; Start 12/02/18 at 12:00 Al Hydrox/Mg Hydrox/Simethicone (Mag-Al Plus) 30 ml Q4H PRN PO GASTROINTESTINAL UPSET; Start 12/02/18 at 12:00 Ondansetron HCl (Zofran Inj) 4 mg Q4H PRN IV NAUSEA AND/OR VOMITING Last administered on 12/07/18 23:27; Admin Dose 4 MG; Start 12/02/18 at 12:00 Collagenase (Santyl) 1 applic DAILY TOP Last administered on 12/08/18 08:31; Admin Dose 1 APPLIC; Start 12/03/18 at 14:00 Aspirin (Aspirin) 81 mg DAILY NGT Last administered on 12/08/18 08:29; Admin D ose 81 MG; Start 12/06/18 at 09:00 Heparin Sodium (Porcine) (Heparin (5000 Units/1ml)) 5,000 unit BID SC Last administered on 12/08/18 08:46; Admin Dose 5,000 UNIT; Start 12/06/18 at 21:00 Fluconazole 100 ml @ 100 mls/hr Q24H IVPB Last administered on 12/07/18 11:57; Admin Dose 100 MLS/HR; Start 12/07/18 at 11:00 Heparin Sodium (Porcine) (Heparin (1000 Units/ml)) 4,000 unit AFTER DIALYSIS C ATHETER ; Start 12/08/18 at 09:30; Status UNV Mannitol 50 ml @ 50 mls/5 min WITH DIALYSIS PRN IV Dysequilibrium syndrome ; Start 12/08/18 at 09:30; Status UNV Albumin Human 100 ml @ 100 mls/hr WITH DIALYSIS PRN IV SBP less than 90 mm Hg; Start 12/08/18 at 09:30; Status UNV Sodium Chloride (NS) -To prime the dialy... DIRECTED FOR HD PRN IV SBP less than 90 mm Hg; Start 12/08/18 at 09:30; Status UNV RENAN HERNANDEZ MD Dec 08, 2018 09:32
--- NOTE | 2018-12-08 09:40 | NUR ---
Dialysis Confirmation Number [id number]
--- NOTE | 2018-12-08 09:59 | PN ---
Date/Time of Note Date/Time of Note DATE: 12/08/18 TIME: 09:49 Assessment/Plan VTE [place]axis [place] [facility] [place]: 12 [place] [facility] [place] SCD contraindicated: other Pharmacological prophylaxis: heparin Lines/Catheters IV [facility]ter Type (from [facility] Central Line Central line still needed: Yes Urinary Cath still in place: Yes Reason Cath still needed: urinary retention Assessment/Plan Hospital Course S: Patient still on pressor support, still intubated. O: VS - see below PE: Const: Lying in bed, family at the bedside, intubated Head: Atraumatic, normocephalic Eyes: Normal Conjunctiva, PERRLA, EOMI, normal sclera, no nystagmus ENT: Normal External Ears, Nose and Mouth, moist mucus membranes. Neck: Supple Resp: Some decreased breath sounds in the bases b/l Cardio: Regular rate and rhythm, no murmurs, S1 S2 present Abd: Soft, non tender x 4, slight distention. 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 2D echo November 24, 2018: Conclusions Normal left ventricular systolic function. Normal left ventricular cavity size. Sigmoid septum. Ejection fraction is visually estimated at 55 %. Normal right ventricular systolic function. Moderate enlargement of right ventricle. There is mild enlargement of left atrium. There is mild enlargement of right atrium. Mild mitral leaflet calcification. Mild mitral annular calcification. Trace mitral regurgitation. Normal appearance of the tricuspid valve. There is trace tricuspid regurgitation. Assessment/Plan: 78-year-old male recently diagnosed with new colon mass, who presents with: # Hypoxic and hypercapnic respiratory failure: Appears to be due to pulmonary edema and possible pneumonia- Failed BiPAP, intubated 12/02. Presently still intubated. Presently on low-dose levophed still. - Continue Daily weaning trials per pulmonary recommendations # Sepsis: As evidenced by fever and tachycardia 3-4 days ago: Secondary to likely fungal UTI now, as UA from yesterday positive and urine culture showing Rosalie growth greater than 100,000 colony-forming units -For now continue fluconazole # Cardiac- elevated troponins: - Got cardiac cath 12/02, clear coronaries. -Continue aspirin and statin for now, follow up cardiology recommendations # Sigmoid mass: Status post biopsy during recent hospitalization. 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 Mass is almost completely obstructive. Patient received rectal stent on December [address] Fang. -Monitor for now, Per discussion between hospitalist and Dr. Juan on 12/01, patient is not currently a surgical candidate due to his acute illness but may get surgery if he improves. -Per hematology oncology, it appears he has localized disease. Per their input, surgical resection is optimal treatment if he ever becomes stable for surgery. They have also stated typically radiation has no role in localized colon ca (radiation can play a role in palliative tx of met colon if painful site of metastatic disease for example). # Atrial fibrillation with RVR - resolved now -Continue to monitor, follow-up cardiology recommendations # Renal insufficiency: Oliguric acute on chronic renal failure. This was likely due to obstructive uropathy Being followed by renal team. Again in the last 48-72 hours to BUN and creatinine levels have been rising, urine output has decreased as well over this time.. Patient given albumin 2 days ago. -Continue monitor urine output, now patient likely will get PermCath placement and start dialysis today or in the next 24 hours -Follow-up renal recommendations #Hypernatremia -resolved -Monitor for now # Diabetes: Sugar stable, continue insulin while in-house DVT: Heparin GI: PPI Code status: Full. Family wants everything done to treat his multiorgan failure and cancer. Critical care time spent on patient care today equals 40 minutes. Result Diagram: 12/08/18 0400 12/08/18 0400 Results 24hrs Laboratory Tests Test 12/07/18 11:56 12/07/18 12:15 12/07/18 17:03 12/07/18 20:52 Bedside Glucose 116 124 149 Blood Gas Blood arterial Specimen Source Arterial Blood 12/07/2018 12:06: Date Drawn 44 PM Arterial Blood pH 7.300 L (Temp corrected) Arterial Blood 69.0 H pCO2 (Temp correct) Arterial Blood 81.9 pO2 (Temp corrected) Arterial Blood 33.2 H HCO3 Arterial Blood 5.5 H Base Excess Arterial Blood 95.2 Oxygen Saturation Nilson Test N/A Arterial Blood Right Brachial Gas Puncture Site Arterial 1.0 Blood Carboxyhemo globin Arterial Blood 0.4 Methemoglobin Blood Gas A-a O2 124.0 H Differential Oxyhemoglobin 93.9 Percent Blood Gas 37.0 Temperature Blood Gas Actual 18 Respiration Rate Blood Gas VENT - CPAP Modality FiO2 40.0 Blood Gas Low 5.0 PEEP Setting Blood Gas 10 Pressure Support Blood Gas TM Notified Whom Blood Gas 12/07/2018 12:14: Notified Time 23 PM Test 12/08/18 00:18 12/08/18 04:00 12/08/18 04:36 12/08/18 08:44 Bedside Glucose 121 132 145 White Blood Count 9.0 Red Blood Count 3.61 L Hemoglobin 8.0 L Hematocrit 30.5 L Mean Corpuscular 84.5 Volume Mean Corpuscular 22.2 L Hemoglobin Mean Corpuscular 26.2 L Hemoglobin Concen t Red Cell 29.7 H Distribution Width Platelet Count 218 Mean Platelet Volume Immature 0.300 Granulocytes % Neutrophils % 74.5 Lymphocytes % 13.1 L Monocytes % 7.3 Eosinophils % 4.6 Basophils % 0.2 Nucleated Red 0.0 Blood Cells % Immature 0.030 Granulocytes # Neutrophils # 6.7 Lymphocytes # 1.2 Monocytes # 0.7 Eosinophils # 0.4 Basophils # 0.0 Nucleated Red 0.0 Blood Cells # Sodium Level 142 Potassium Level 3.8 Chloride Level 98 Carbon Dioxide 30 Level Anion Gap 14 H Blood Urea 90 H Nitrogen Creatinine 4.29 H Est Glomerular Filtrat Rate mL/min Glucose Level 116 Calcium Level 8.7 Phosphorus Level 4.0 Magnesium Level 2.2 Iron Level 42 Total Iron 216 L Binding Capacity Percent Iron 19 L Saturation Total Bilirubin 0.0 L Direct Bilirubin 0.00 Indirect 0.0 Bilirubin Aspartate Amino 32 Transf (AST/SGOT) Alanine 28 Aminotransferase (ALT/SGPT) Alkaline 58 Phosphatase Total Protein 6.8 Albumin 3.3 Globulin 3.50 H Albumin/Globulin 0.94 Ratio Exam/Review of Systems Vital Signs Vitals Vital Signs Date Temp Pulse Resp B/P (MAP) Pulse Ox O2 O2 Flow FiO2 Time Delivery Rate 12/08/18 60 16 97/45 (62) 96 05:30 12/08/18 40 05:21 12/08/18 Mechanical 05:00 Ventilator 12/08/18 97.8 04:00 Intake and Output 12/07/18 12/07/18 12/08/18 1414:59 22:59 06:59 IntakeIntake Total 512.50 ml 1034.13 ml 1125.04 ml OutputOutput Total 65 ml 75 ml 67 ml BalanceBalance 447.50 ml 959.13 ml 1058.04 ml Medications Medications Current Medications Acetaminophen (Tylenol Liquid) 650 mg Q6H PRN PO PAIN LEVEL 1-3 OR FEVER Last administered on 12/02/18 02:31; Admin Dose 650 MG; Start 11/23/18 at 22:30 Acetaminophen (Tylenol Supp) 650 mg Q4H PRN [place] PAIN LEVEL 1-3 OR FEVER Last administered on 12/02/18at 21:21; Admin Dose 650 MG; Start 11/23/18 at 22:30 Atorvastatin Calcium (Lipitor) 20 mg HS PO Last administered on 12/07/18at 20:48; Admin Dose 20 MG; Start 11/24/18 at 21:00 Albuterol/ Ipratropium (Duoneb) 3 ml Q4H RESP THERAPY PRN HHN SHORTNESS OF BREATH; Start 11/24/18 at 09:00 Aripiprazole (Abilify) 5 mg DAILY PO Last administered on 12/08/18 08:30; Admin Dose 5 MG; Start 11/24/18 at 09:30 Digoxin (Digoxin) 0.25 mg DAILY@1300 PO Last administered on 11/26/18 13:41; Admin Dose 0.25 MG; Start 11/24/18 at 13:00; Status Hold Escitalopram Oxalate (Lexapro) 20 mg DAILY PO Last administered on 12/08/18 08:30; Admin Dose 20 MG; Start 11/24/18 at 09:30 Loratadine (Claritin) 10 mg DAILY PO Last administered on 12/08/18 08:29; Admin Dose 10 MG; Start 11/24/18 at 10:00 Multivitamins Therapeutic (Theragran) 1 tab DAILY PO Last administered on 12/08/18at 08:29; Admin Dose 1 TAB; Start 11/24/18 at 09:30 Potassium Chloride (Micro-K) 8 meq DAILY PO Last administered on 11/24/18at 10:12; Admin Dose 8 MEQ; Start 11/24/18 at 10:00; Status Hold Tamsulosin HCl (Flomax) 0.4 mg HS PO Last administered on 12/07/18at 20:48; Admin Dose 0.4 MG; Start 11/24/18 at 21:00 Calcium/Vitamin D (Oyster Shell/ Vit-D (500/200)) 1 tab DAILY PO Last administered on 12/08/18at 08:29; Admin Dose 1 TAB; Start 11/24/18 at 09:30 Metoprolol Tartrate (Lopressor) 5 mg Q4H PRN IV HR>110 Hold SBP<100; Start 11/24/18 at 11:00 Diltiazem HCl (Cardizem Sr) 120 mg DAILY PO ; Start 11/25/18 at 14:00; Status Hold IV Flush (NS 10 ml) 10 ml PRN PRN IV IV PROTOCOL; Start 11/25/18 at 16:00 Hydralazine HCl (Apresoline) 25 mg Q8 PO Last administered on 12/07/18at 06:37; Admin Dose 25 MG; Start 11/26/18 at 22:00 Pantoprazole (Protonix Iv) 40 mg DAILY@06 IV Last administered on 12/08/18at 05:12; Admin Dose 40 MG; Start 11/29/18 at 06:00 Diagnostic Test (Pha) (Accu-Chek) 1 ea 02 XX Last administered on 12/06/18at 01:46; Admin Dose 1 EA; Start 12/01/18 at 02:00 Insulin Aspart (Novolog Insulin Pen) (Adult SC Insulin - Mild Algorithm)... Q4 SC Last administered on 12/08/18at 08:46; Admin Dose 1 UNIT; Start 11/30/18 at 09:00 Miscellaneous Information 1 ea NOTE XX ; Start 11/30/18 at 08:00 Glucose (Glutose) 15 gm Q15M PRN PO DECREASED GLUCOSE; Start 11/30/18 at 08:00 Glucose (Glutose) 22.5 gm Q15M PRN PO DECREASED GLUCOSE; Start 11/30/18 at 08:00 Dextrose (D50w Syringe) 25 ml Q15M PRN IV DECREASED GLUCOSE; Start 11/30/18 at 08:00 Dextrose (D50w Syringe) 50 ml Q15M PRN IV DECREASED GLUCOSE; Start 11/30/18 at 08:00 Glucagon (Glucagen) 1 mg Q15M PRN IM DECREASED GLUCOSE; Start 11/30/18 at 08:00 Glucose (Glutose) 15 gm Q15M PRN BUCCAL DECREASED GLUCOSE; Start 11/30/18 at 08:00 Midazolam HCl 50 ml @ 1 mls/hr TITRATE IV Last administered on 12/03/18at 03:19; Admin Dose 4 MLS/HR; Start 12/02/18 at 07:00 Norepinephrine 16 mg/Dextrose 500 ml @ 1.88 mls/hr TITRATE IV Last administered on 12/07/18at 22:16; Admin Dose 5.63 MLS/HR; Start 12/02/18 at 09:30 Fentanyl 100 ml @ 2.5 mls/hr TITRATE IV Last administered on 12/07/18at 12:01; Admin Dose 3 MLS/HR; Start 12/02/18 at 10:30 Acetaminophen (Tylenol Tab) 650 mg Q4H PRN PO mild pain Last administered on 12/05/18at 01:13; Admin Dose 650 MG; Start 12/02/18 at 12:00 Morphine Sulfate (morphine) 2 mg Q2H PRN IV moderate to severe pain; Start 12/02/18 at 12:00 Al Hydrox/Mg Hydrox/Simethicone (Mag-Al Plus) 30 ml Q4H PRN PO GASTROINTESTINAL UPSET; Start 12/02/18 at 12:00 Ondansetron HCl (Zofran Inj) 4 mg Q4H PRN IV NAUSEA AND/OR VOMITING Last administered on 12/07/18at 23:27; Admin Dose 4 MG; Start 12/02/18 at 12:00 Collagenase (Santyl) 1 applic DAILY TOP Last administered on 12/08/18at 08:31; Admin Dose 1 APPLIC; Start 12/03/18 at 14:00 Aspirin (Aspirin) 81 mg DAILY NGT Last administered on 12/08/18at 08:29; Admin Dose 81 MG; Start 12/06/18 at 09:00 Heparin Sodium (Porcine) (Heparin (5000 Units/1ml)) 5,000 unit BID SC Last administered on 12/08/18at 08:46; Admin Dose 5,000 UNIT; Start 12/06/18 at 21:00 Fluconazole 100 ml @ 100 mls/hr Q24H IVPB Last administered on 12/07/18at 11:57; Admin Dose 100 MLS/HR; Start 12/07/18 at 11:00 Heparin Sodium (Porcine) (Heparin (1000 Units/ml)) 4,000 unit AFTER DIALYSIS CATHETER ; Start 12/08/18 at 09:30 Mannitol 50 ml @ 50 mls/5 min WITH DIALYSIS PRN IV Dysequilibrium syndrome ; Start 12/08/18 at 09:30 Albumin Human 100 ml @ 100 mls/hr WITH DIALYSIS PRN IV SBP less than 90 mm Hg; Start 12/08/18 at 09:30 Sodium Chloride (NS) -To prime the dialy... DIRECTED FOR HD PRN IV SBP less than 90 mm Hg; Start 12/08/18 at 09:30 NAYANA GARCIA Dec 08, 2018 09:59
--- NOTE | 2018-12-08 10:08 | NUR ---
Tube feedings held at 1000 in anticipation of Duong catheter placement.
--- NOTE | 2018-12-08 10:48 | CONS ---
Date/Time of Note Date/Time of Note DATE: 12/08/18 TIME: 10:46 Consult Date/Type/Reason Admit Date/Time Nov 23, 2018 at 22:01 Initial Consult Date 11/25/18 Type of Consultation: Pulm/CCM Requesting Provider: NAYANA GARCIA Subjective Elderly [place] gentleman on CPAP weaning trial moderate secretions. Objective Vital Signs Date Temp Pulse Resp B/P (MAP) Pulse Ox O2 O2 Flow FiO2 Time Delivery Rate 12/08/18 77 16 106/57 100 10:30 (73) 12/08/18 Mechanical 10:15 Ventilator 12/08/18 40 08:00 12/08/18 98.7 08:00 Intake and Output 12/07/18 12/07/18 12/08/18 1515:00 23:00 07:00 IntakeIntake Total 576.25 ml 974.26 ml 1114.41 ml OutputOutput Total 65 ml 70 ml 67 ml BalanceBalance 511.25 ml 904.26 ml 1047.41 ml Exam GENERAL: Elderly appearing gentleman orally intubated on mechanical ventilation VITAL SIGNS: per chart NECK: Supple. No JVD or lymphadenopathy. CARDIAC EXAM: S1, S2. No added sounds or murmurs. CHEST: Diminished air entry bilaterally ABDOMEN: Soft, nontender. No guarding or rebound. EXTREMITIES: No cyanosis, clubbing or edema. NEUROLOGIC: Generalized weakness. No focal deficits. Results/Medications Result Diagram: 12/08/18 0400 12/08/18 0400 Results 24 hrs Laboratory Tests Test 12/07/18 11:56 12/07/18 12:15 12/07/18 17:03 12/07/18 20:52 Bedside Glucose 116 124 149 Blood Gas Blood arterial Specimen Source Arterial Blood 12/07/2018 12:06: Date Drawn 44 PM Arterial Blood pH 7.300 L (Temp corrected) Arterial Blood 69.0 H pCO2 (Temp correct) Arterial Blood 81.9 pO2 (Temp corrected) Arterial Blood 33.2 H HCO3 Arterial Blood 5.5 H Base Excess Arterial Blood 95.2 Oxygen Saturation Nilson Test N/A Arterial Blood Right Brachial Gas Puncture Site Arterial 1.0 Blood Carboxyhemo globin Arterial Blood 0.4 Methemoglobin Blood Gas A-a O2 124.0 H Differential Oxyhemoglobin 93.9 Percent Blood Gas 37.0 Temperature Blood Gas Actual 18 Respiration Rate Blood Gas VENT - CPAP Modality FiO2 40.0 Blood Gas Low 5.0 PEEP Setting Blood Gas 10 Pressure Support Blood Gas TM Notified Whom Blood Gas 12/07/2018 12:14: Notified Time 23 PM Test 12/08/18 00:18 12/08/18 04:00 12/08/18 04:36 12/08/18 08:44 Bedside Glucose 121 132 145 White Blood Count 9.0 Red Blood Count 3.61 L Hemoglobin 8.0 L Hematocrit 30.5 L Mean Corpuscular 84.5 Volume Mean Corpuscular 22.2 L Hemoglobin Mean Corpuscular 26.2 L Hemoglobin Concen t Red Cell 29.7 H Distribution Width Platelet Count 218 Mean Platelet Volume Immature 0.300 Granulocytes % Neutrophils % 74.5 Lymphocytes % 13.1 L Monocytes % 7.3 Eosinophils % 4.6 Basophils % 0.2 Nucleated Red 0.0 Blood Cells % Immature 0.030 Granulocytes # Neutrophils # 6.7 Lymphocytes # 1.2 Monocytes # 0.7 Eosinophils # 0.4 Basophils # 0.0 Nucleated Red 0.0 Blood Cells # Sodium Level 142 Potassium Level 3.8 Chloride Level 98 Carbon Dioxide 30 Level Anion Gap 14 H Blood Urea 90 H Nitrogen Creatinine 4.29 H Est Glomerular Filtrat Rate mL/min Glucose Level 116 Calcium Level 8.7 Phosphorus Level 4.0 Magnesium Level 2.2 Iron Level 42 Total Iron 216 L Binding Capacity Percent Iron 19 L Saturation Total Bilirubin 0.0 L Direct Bilirubin 0.00 Indirect 0.0 Bilirubin Aspartate Amino 32 Transf (AST/SGOT) Alanine 28 Aminotransferase (ALT/SGPT) Alkaline 58 Phosphatase Total Protein 6.8 Albumin 3.3 Globulin 3.50 H Albumin/Globulin 0.94 Ratio Medications Current Medications Acetaminophen (Tylenol Liquid) 650 mg Q6H PRN PO PAIN LEVEL 1-3 OR FEVER Last administered on 12/02/18at 02:31; Admin Dose 650 MG; Start 11/23/18 at 22:30 Acetaminophen (Tylenol Supp) 650 mg Q4H PRN SC PAIN LEVEL 1-3 OR FEVER Last administered on 12/02/18at 21:21; Admin Dose 650 MG; Start 11/23/18 at 22:30 Atorvastatin Calcium (Lipitor) 20 mg HS PO Last administered on 12/07/18at 20:48; Admin Dose 20 MG; Start 11/24/18 at 21:00 Albuterol/ Ipratropium (Duoneb) 3 ml Q4H RESP THERAPY PRN HHN SHORTNESS OF BREATH; Start 11/24/18 at 09:00 Aripiprazole (Abilify) 5 mg DAILY PO Last administered on 12/08/18 08:30; Admin Dose 5 MG; Start 11/24/18 at 09:30 Digoxin (Digoxin) 0.25 mg DAILY@1300 PO Last administered on 11/26/18 13:41; Admin Dose 0.25 MG; Start 11/24/18 at 13:00; Status Hold Escitalopram Oxalate (Lexapro) 20 mg DAILY PO Last administered on 12/08/18 08:30; Admin Dose 20 MG; Start 11/24/18 at 09:30 Loratadine (Claritin) 10 mg DAILY PO Last administered on 12/08/18 08:29; Admin Dose 10 MG; Start 11/24/18 at 10:00 Multivitamins Therapeutic (Theragran) 1 tab DAILY PO Last administered on 12/08/18 08:29; Admin Dose 1 TAB; Start 11/24/18 at 09:30 Potassium Chloride (Micro-K) 8 meq DAILY PO Last administered on 11/24/18 10:12; Admin Dose 8 MEQ; Start 11/24/18 at 10:00; Status Hold Tamsulosin HCl (Flomax) 0.4 mg HS PO Last administered on 12/07/18 20:48; Admin Dose 0.4 MG; Start 11/24/18 at 21:00 Calcium/Vitamin D (Oyster Shell/ Vit-D (500/200)) 1 tab DAILY PO Last administered on 12/08/18 08:29; Admin Dose 1 TAB; Start 11/24/18 at 09:30 Metoprolol Tartrate (Lopressor) 5 mg Q4H PRN IV HR>110 Hold SBP<100; Start 11/24/18 at 11:00 Diltiazem HCl (Cardizem Sr) 120 mg DAILY PO ; Start 11/25/18 at 14:00; Status Hold IV Flush (NS 10 ml) 10 ml PRN PRN IV IV PROTOCOL; Start 11/25/18 at 16:00 Hydralazine HCl (Apresoline) 25 mg Q8 PO Last administered on 1/15/19at 06:37; Admin Dose 25 MG; Start 11/26/18 at 22:00 Pantoprazole (Protonix Iv) 40 mg DAILY@06 IV Last administered on 12/08/18at 05:12; Admin Dose 40 MG; Start 11/29/18 at 06:00 Diagnostic Test (Pha) (Accu-Chek) 1 ea 02 XX Last administered on 12/06/18at 01:46; Admin Dose 1 EA; Start 12/01/18 at 02:00 Insulin Aspart (Novolog Insulin Pen) (Adult SC Insulin - Mild Algorithm)... Q4 SC Last administered on 12/08/18at 08:46; Admin Dose 1 UNIT; Start 11/30/18 at 09:00 Miscellaneous Information 1 ea NOTE XX ; Start 11/30/18 at 08:00 Glucose (Glutose) 15 gm Q15M PRN PO DECREASED GLUCOSE; Start 11/30/18 at 08:00 Glucose (Glutose) 22.5 gm Q15M PRN PO DECREASED GLUCOSE; Start 11/30/18 at 08:00 Dextrose (D50w Syringe) 25 ml Q15M PRN IV DECREASED GLUCOSE; Start 11/30/18 at 08:00 Dextrose (D50w Syringe) 50 ml Q15M PRN IV DECREASED GLUCOSE; Start 11/30/18 at 08:00 Glucagon (Glucagen) 1 mg Q15M PRN IM DECREASED GLUCOSE; Start 11/30/18 at 08:00 Glucose (Glutose) 15 gm Q15M PRN BUCCAL DECREASED GLUCOSE; Start 11/30/18 at 08:00 Midazolam HCl 50 ml @ 1 mls/hr TITRATE IV Last administered on 12/03/18at 03:19; Admin Dose 4 MLS/HR; Start 12/02/18 at 07:00 Norepinephrine 16 mg/Dextrose 500 ml @ 1.88 mls/hr TITRATE IV Last administered on 12/07/18at 22:16; Admin Dose 5.63 MLS/HR; Start 12/02/18 at 09:30 Fentanyl 100 ml @ 2.5 mls/hr TITRATE IV Last administered on 12/07/18at 12:01; Admin Dose 3 MLS/HR; Start 12/02/18 at 10:30 Acetaminophen (Tylenol Tab) 650 mg Q4H PRN PO mild pain Last administered on 12/05/18at 01:13; Admin Dose 650 MG; Start 12/02/18 at 12:00 Morphine Sulfate (morphine) 2 mg Q2H PRN IV moderate to severe pain; Start 12/02/18 at 12:00 Al Hydrox/Mg Hydrox/Simethicone (Mag-Al Plus) 30 ml Q4H PRN PO GASTROINTESTINAL UPSET; Start 12/02/18 at 12:00 Ondansetron HCl (Zofran Inj) 4 mg Q4H PRN IV NAUSEA AND/OR VOMITING Last administered on 12/07/18at 23:27; Admin Dose 4 MG; Start 12/02/18 at 12:00 Collagenase (Santyl) 1 applic DAILY TOP Last administered on 12/08/18 08:31; Admin Dose 1 APPLIC; Start 12/03/18 at 14:00 Aspirin (Aspirin) 81 mg DAILY NGT Last administered on 12/08/18at 08:29; Admin Dose 81 MG; Start 12/06/18 at 09:00 Heparin Sodium (Porcine) (Heparin (5000 Units/1ml)) 5,000 unit BID SC Last administered on 12/08/18at 08:46; Admin Dose 5,000 UNIT; Start 12/06/18 at 21:00 Fluconazole 100 ml @ 100 mls/hr Q24H IVPB Last administered on 12/07/18at 11:57; Admin Dose 100 MLS/HR; Start 12/07/18 at 11:00 Heparin Sodium (Porcine) (Heparin (1000 Units/ml)) 4,000 unit AFTER DIALYSIS CATHETER ; Start 12/08/18 at 09:30 Mannitol 50 ml @ 50 mls/5 min WITH DIALYSIS PRN IV Dysequilibrium syndrome ; Start 12/08/18 at 09:30 Albumin Human 100 ml @ 100 mls/hr WITH DIALYSIS PRN IV SBP less than 90 mm Hg; Start 12/08/18 at 09:30 Sodium Chloride (NS) -To prime the dialy... DIRECTED FOR HD PRN IV SBP less than 90 mm Hg; Start 12/08/18 at 09:30 Assessment/Plan Chief Complaint/Hosp Course IMP: 1. Acute hypoxemic/hypercapnic respiratory failure--most likely due to volume overload +/- pneumonia. Right pleural effusion. Status post thoracentesis. 2. Sigmoid mass, presumed colon cancer with recent severe anemia. Status post stent placement 3. Non-ST elevation myocardial infarction. Status post cardiac cath with no target lesions identified. 4. Atrial fibrillation with rapid ventricular response, now rate controlled 5. Worsening renal failure likely requiring hemodialysis. Likely contrast nephropathy 6. Anemia RECS: 1. Continue vent. weaning when hemodynamically stable 2. Continue cardiac recommendations 3. Continue renal recs Duong catheter placement and hemodialysis per nephrology 4. GI recommendations, Critical care time 40 minutes Long discussion with son at bedside. JANNET BERG MD, [facility] Dec 08, 2018 10:48
--- NOTE | 2018-12-08 11:10 | CONS ---
Date/Time of Note Date/Time of Note DATE: 12/08/18 TIME: 11:08 Assessment/Plan Assessment/Plan Hospital Course IMPRESSION: 1. Non-ST elevation myocardial infarction, currently down trending cardiac enzymes likely a type 2 demand infarct in the setting of fevers, hypercarbic respiratory failure.-downtrended cardiac enzymes. NO cp. Echo this admit 11/24 with NL EF 55%. Now s/p LHC 12/02 with no sig major epicardial obstructive cad. LVEDP 21 2. Abnormal electrocardiogram. 3. Right bundle branch block. 4. Colonic mass s/p stent placement 5. Anemia. 6. Renal failure-worsening 7. Leukocytosis. 8. Coagulopathy. 9. Sepsis. 10. Atrial fibrillation-now in SR 11.CHF-diastolic acute on chronic 12. Resp failure s/p intubation 14. Hypotension on levophed 15. PTX Recc: -ICU -Continue asa/statin -Wean pressors as tolerated -Continue broad spectrum abx's and f/u cx data -wean vent as possible -continue asa -To have HD started today -surgery when stable? Result Diagram: 12/08/18 0400 12/08/18 0400 Results 24hrs Laboratory Tests Test 12/07/18 11:56 12/07/18 12:15 12/07/18 17:03 12/07/18 20:52 Bedside Glucose 116 124 149 Blood Gas Blood arterial Specimen Source Arterial Blood 12/07/2018 12:06: Date Drawn 44 PM Arterial Blood pH 7.300 L (Temp corrected) Arterial Blood 69.0 H pCO2 (Temp correct) Arterial Blood 81.9 pO2 (Temp corrected) Arterial Blood 33.2 H HCO3 Arterial Blood 5.5 H Base Excess Arterial Blood 95.2 Oxygen Saturation Nilson Test N/A Arterial Blood Right Brachial Gas Puncture Site Arterial 1.0 Blood Carboxyhemo globin Arterial Blood 0.4 Methemoglobin Blood Gas A-a O2 124.0 H Differential Oxyhemoglobin 93.9 Percent Blood Gas 37.0 Temperature Blood Gas Actual 18 Respiration Rate Blood Gas VENT - CPAP Modality FiO2 40.0 Blood Gas Low 5.0 PEEP Setting Blood Gas 10 Pressure Support Blood Gas TM Notified Whom Blood Gas 12/07/2018 12:14: Notified Time 23 PM Test 12/08/18 00:18 12/08/18 04:00 12/08/18 04:36 12/08/18 08:44 Bedside Glucose 121 132 145 White Blood Count 9.0 Red Blood Count 3.61 L Hemoglobin 8.0 L Hematocrit 30.5 L Mean Corpuscular 84.5 Volume Mean Corpuscular 22.2 L Hemoglobin Mean Corpuscular 26.2 L Hemoglobin Concen t Red Cell 29.7 H Distribution Width Platelet Count 218 Mean Platelet Volume Immature 0.300 Granulocytes % Neutrophils % 74.5 Lymphocytes % 13.1 L Monocytes % 7.3 Eosinophils % 4.6 Basophils % 0.2 Nucleated Red 0.0 Blood Cells % Immature 0.030 Granulocytes # Neutrophils # 6.7 Lymphocytes # 1.2 Monocytes # 0.7 Eosinophils # 0.4 Basophils # 0.0 Nucleated Red 0.0 Blood Cells # Sodium Level 142 Potassium Level 3.8 Chloride Level 98 Carbon Dioxide 30 Level Anion Gap 14 H Blood Urea 90 H Nitrogen Creatinine 4.29 H Est Glomerular Filtrat Rate mL/min Glucose Level 116 Calcium Level 8.7 Phosphorus Level 4.0 Magnesium Level 2.2 Iron Level 42 Total Iron 216 L Binding Capacity Percent Iron 19 L Saturation Total Bilirubin 0.0 L Direct Bilirubin 0.00 Indirect 0.0 Bilirubin Aspartate Amino 32 Transf (AST/SGOT) Alanine 28 Aminotransferase (ALT/SGPT) Alkaline 58 Phosphatase Total Protein 6.8 Albumin 3.3 Globulin 3.50 H Albumin/Globulin 0.94 Ratio Consultation Date/Type/Reason Admit Date/Time Nov 23, 2018 at 22:01 Initial Consult Date 11/24/18 Type of Consult cardiology Reason for Consultation HYpotension Requesting Provider: NAYANA GARCIA Exam/Review of Systems Vital Signs Vitals Vital Signs Date Temp Pulse Resp B/P (MAP) Pulse Ox O2 O2 Flow FiO2 Time Delivery Rate 12/08/18 77 16 106/57 100 10:30 (73) 12/08/18 Mechanical 10:15 Ventilator 12/08/18 40 10:15 12/08/18 98.7 08:00 Intake and Output 12/07/18 12/07/18 12/08/18 1515:00 23:00 07:00 IntakeIntake Total 576.25 ml 974.26 ml 1120.04 ml OutputOutput Total 65 ml 70 ml 67 ml BalanceBalance 511.25 ml 904.26 ml 1053.04 ml Exam Review of Systems: CONSTITUTIONAL: No fevers, chills. PULMONARY: intubated CARDIOVASCULAR: No chest pain/palpitations GASTROINTESTINAL: No nausea/vomiting. GENITOURINARY: No hematuria/dysuria. MUSCULOSKELETAL: No myagias/arthalgias. PSYCHIATRIC: The patient denies depression. NEUROLOGIC: No weakness Constitutional: alert Psych: no complaints Head: normocephalic ENMT: mucosa pink and moist Neck: supple, jvd Respiratory: diminished breath sounds Cardiovascular: regular rate and rhythm Gastrointestinal: soft, non-tender Musculoskeletal: muscle tone (normal) Extremities: edema (none) Neurological: other (No focal deficits) Medications Medications Current Medications Acetaminophen (Tylenol Liquid) 650 mg Q6H PRN PO PAIN LEVEL 1-3 OR FEVER Last administered on 12/02/18 02:31; Admin Dose 650 MG; Start 11/23/18 at 22:30 Acetaminophen (Tylenol Supp) 650 mg Q4H PRN DC PAIN LEVEL 1-3 OR FEVER Last administered on 12/02/18 21:21; Admin Dose 650 MG; Start 11/23/18 at 22:30 Atorvastatin Calcium (Lipitor) 20 mg HS PO Last administered on 12/07/18 20:48; Admin Dose 20 MG; Start 11/24/18 at 21:00 Albuterol/ Ipratropium (Duoneb) 3 ml Q4H RESP THERAPY PRN HHN SHORTNESS OF BREATH; Start 11/24/18 at 09:00 Aripiprazole (Abilify) 5 mg DAILY PO Last administered on 12/08/18 08:30; Admin Dose 5 MG; Start 11/24/18 at 09:30 Digoxin (Digoxin) 0.25 mg DAILY@1300 PO Last administered on 11/26/18 13:41; Admin Dose 0.25 MG; Start 11/24/18 at 13:00; Status Hold Escitalopram Oxalate (Lexapro) 20 mg DAILY PO Last administered on 12/08/18 08:30; Admin Dose 20 MG; Start 11/24/18 at 09:30 Loratadine (Claritin) 10 mg DAILY PO Last administered on 12/08/18 08:29; Admin Dose 10 MG; Start 11/24/18 at 10:00 Multivitamins Therapeutic (Theragran) 1 tab DAILY PO Last administered on 12/08/18 08:29; Admin Dose 1 TAB; Start 11/24/18 at 09:30 Potassium Chloride (Micro-K) 8 meq DAILY PO Last administered on 11/24/18at 10:12; Admin Dose 8 MEQ; Start 11/24/18 at 10:00; Status Hold Tamsulosin HCl (Flomax) 0.4 mg HS PO Last administered on 12/07/18at 20:48; Admin Dose 0.4 MG; Start 11/24/18 at 21:00 Calcium/Vitamin D (Oyster Shell/ Vit-D (500/200)) 1 tab DAILY PO Last administered on 12/08/18at 08:29; Admin Dose 1 TAB; Start 11/24/18 at 09:30 Metoprolol Tartrate (Lopressor) 5 mg Q4H PRN IV HR>110 Hold SBP<100; Start 11/24/18 at 11:00 Diltiazem HCl (Cardizem Sr) 120 mg DAILY PO ; Start 11/25/18 at 14:00; Status Hold IV Flush (NS 10 ml) 10 ml PRN PRN IV IV PROTOCOL; Start 11/25/18 at 16:00 Hydralazine HCl (Apresoline) 25 mg Q8 PO Last administered on 12/07/18at 06:37; Admin Dose 25 MG; Start 11/26/18 at 22:00 Pantoprazole (Protonix Iv) 40 mg DAILY@06 IV Last administered on 12/08/18at 05:12; Admin Dose 40 MG; Start 11/29/18 at 06:00 Diagnostic Test (Pha) (Accu-Chek) 1 ea 02 XX Last administered on 12/06/18at 01:46; Admin Dose 1 EA; Start 12/01/18 at 02:00 Insulin Aspart (Novolog Insulin Pen) (Adult SC Insulin - Mild Algorithm)... Q4 SC Last administered on 12/08/18at 08:46; Admin Dose 1 UNIT; Start 11/30/18 at 09:00 Miscellaneous Information 1 ea NOTE XX ; Start 11/30/18 at 08:00 Glucose (Glutose) 15 gm Q15M PRN PO DECREASED GLUCOSE; Start 11/30/18 at 08:00 Glucose (Glutose) 22.5 gm Q15M PRN PO DECREASED GLUCOSE; Start 11/30/18 at 08:00 Dextrose (D50w Syringe) 25 ml Q15M PRN IV DECREASED GLUCOSE; Start 11/30/18 at 08:00 Dextrose (D50w Syringe) 50 ml Q15M PRN IV DECREASED GLUCOSE; Start 11/30/18 at 08:00 Glucagon (Glucagen) 1 mg Q15M PRN IM DECREASED GLUCOSE; Start 11/30/18 at 08:00 Glucose (Glutose) 15 gm Q15M PRN BUCCAL DECREASED GLUCOSE; Start 11/30/18 at 08:00 Midazolam HCl 50 ml @ 1 mls/hr TITRATE IV Last administered on 12/03/18at 03:19; Admin Dose 4 MLS/HR; Start 12/02/18 at 07:00 Norepinephrine 16 mg/Dextrose 500 ml @ 1.88 mls/hr TITRATE IV Last administered on 12/07/18at 22:16; Admin Dose 5.63 MLS/HR; Start 12/02/18 at 09:30 Fentanyl 100 ml @ 2.5 mls/hr TITRATE IV Last administered on 12/07/18at 12:01; Admin Dose 3 MLS/HR; Start 12/02/18 at 10:30 Acetaminophen (Tylenol Tab) 650 mg Q4H PRN PO mild pain Last administered on 12/05/18at 01:13; Admin Dose 650 MG; Start 12/02/18 at 12:00 Morphine Sulfate (morphine) 2 mg Q2H PRN IV moderate to severe pain; Start 12/02/18 at 12:00 Al Hydrox/Mg Hydrox/Simethicone (Mag-Al Plus) 30 ml Q4H PRN PO GASTROINTESTINAL UPSET; Start 12/02/18 at 12:00 Ondansetron HCl (Zofran Inj) 4 mg Q4H PRN IV NAUSEA AND/OR VOMITING Last administered on 12/07/18at 23:27; Admin Dose 4 MG; Start 12/02/18 at 12:00 Collagenase (Santyl) 1 applic DAILY TOP Last administered on 12/08/18at 08:31; Admin Dose 1 APPLIC; Start 12/03/18 at 14:00 Aspirin (Aspirin) 81 mg DAILY NGT Last administered on 12/08/18at 08:29; Admin Dose 81 MG; Start 12/06/18 at 09:00 Heparin Sodium (Porcine) (Heparin (5000 Units/1ml)) 5,000 unit BID SC Last administered on 12/08/18at 08:46; Admin Dose 5,000 UNIT; Start 12/06/18 at 21:00 Fluconazole 100 ml @ 100 mls/hr Q24H IVPB Last administered on 12/07/18at 11:57; Admin Dose 100 MLS/HR; Start 12/07/18 at 11:00 Heparin Sodium (Porcine) (Heparin (1000 Units/ml)) 4,000 unit AFTER DIALYSIS CATHETER ; Start 12/08/18 at 09:30 Mannitol 50 ml @ 50 mls/5 min WITH DIALYSIS PRN IV Dysequilibrium syndrome ; Start 12/08/18 at 09:30 Albumin Human 100 ml @ 100 mls/hr WITH DIALYSIS PRN IV SBP less than 90 mm Hg; Start 12/08/18 at 09:30 Sodium Chloride (NS) -To prime the dialy... DIRECTED FOR HD PRN IV SBP less than 90 mm Hg; Start 12/08/18 at 09:30 TWAN ESTEVEZ Dec 08, 2018 11:10
[2018-12-08] MEDS: FLUCONAZOLE 200 MG (PMX) 100 ML IVPB SCH (11:16)
--- NOTE | 2018-12-08 12:48 | CONS ---
Date/Time of Note Date/Time of Note DATE: 12/08/18 TIME: 12:46 Assessment/Plan Assessment/Plan Hospital Course unfortunate 78 yo with what appears to be locally advanced colon ca #nearly obstructive colon ca -he has very poor performance status and multiple co-morbidities/multiple medical complications -he is intubated -surgery has seen pt and feels he may not be an appropriate resection candidate, s/p stent -given that he appears to have localized disease, surgical resection is optimal treatment if he ever becomes stable for surgery. typically radiation has no role in localized colon ca, radiation can play a role in palliative tx of met colon if painful site of metastatic disease for example. -I have discussed with son that his father's health is very tenuous and he is not a candidate for chemo now, unclear if he will ever be improved enough for oncologic tx. unfortunately patient is declining, he is intubated, starting dialysis. at this point certainly not a candidate for chemo #anemia due to colon ca hgb 8.0 repeat iron studies to determine if he needs iron supplementation #CAD s/p cardiac cath, no critical obstruction #oliguric/renal failure may be starting dialysis Result Diagram: 12/08/18 0400 12/08/18 0400 Results 24hrs Laboratory Tests Test 12/07/18 17:03 12/07/18 20:52 12/08/18 00:18 12/08/18 04:00 Bedside Glucose 124 149 121 White Blood Count 9.0 Red Blood Count 3.61 L Hemoglobin 8.0 L Hematocrit 30.5 L Mean Corpuscular 84.5 Volume Mean Corpuscular 22.2 L Hemoglobin Mean Corpuscular 26.2 L Hemoglobin Concent Red Cell 29.7 H Distribution Width Platelet Count 218 Mean Platelet Volume Immature 0.300 Granulocytes % Neutrophils % 74.5 Lymphocytes % 13.1 L Monocytes % 7.3 Eosinophils % 4.6 Basophils % 0.2 Nucleated Red Blood 0.0 Cells % Immature 0.030 Granulocytes # Neutrophils # 6.7 Lymphocytes # 1.2 Monocytes # 0.7 Eosinophils # 0.4 Basophils # 0.0 Nucleated Red Blood 0.0 Cells # Sodium Level 142 Potassium Level 3.8 Chloride Level 98 Carbon Dioxide Level 30 Anion Gap 14 H Blood Urea Nitrogen 90 H Creatinine 4.29 H Est Glomerular Filtrat Rate mL/min Glucose Level 116 Calcium Level 8.7 Phosphorus Level 4.0 Magnesium Level 2.2 Iron Level 42 Total Iron Binding 216 L Capacity Percent Iron 19 L Saturation Total Bilirubin 0.0 L Direct Bilirubin 0.00 Indirect Bilirubin 0.0 Aspartate Amino 32 Transf (AST/SGOT) Alanine 28 Aminotransferase (AL T/SGPT) Alkaline Phosphatase 58 Total Protein 6.8 Albumin 3.3 Globulin 3.50 H Albumin/Globulin 0.94 Ratio Test 12/08/18 04:36 12/08/18 08:44 Bedside Glucose 132 145 Consultation Date/Type/Reason Admit Date/Time Nov 23, 2018 at 22:01 Initial Consult Date 11/25/18 Requesting Provider: NAYANA GARCIA 24 HR Interval Summary Free Text/Dictation intubated appears comfortable Subjective hx not possible: pt non-verbal, pt critical status Exam/Review of Systems Vital Signs Vitals Vital Signs Date Temp Pulse Resp B/P (MAP) Pulse Ox O2 O2 Flow FiO2 Time Delivery Rate 12/08/18 77 16 106/57 100 10:30 (73) 12/08/18 Mechanical 10:15 Ventilator 12/08/18 40 10:15 12/08/18 98.7 08:00 Intake and Output 12/07/18 12/07/18 12/08/18 1515:00 23:00 07:00 IntakeIntake Total 576.25 ml 974.26 ml 1120.04 ml OutputOutput Total 65 ml 70 ml 67 ml BalanceBalance 511.25 ml 904.26 ml 1053.04 ml Exam Constitutional: non-verbal, frail Head: normocephalic, atraumatic Eyes: nl conjunctiva ENMT: intubated Neck: supple Respiratory: diminished breath sounds Musculoskeletal: nl extremities to inspection Medications Medications Current Medications Acetaminophen (Tylenol Liquid) 650 mg Q6H PRN PO PAIN LEVEL 1-3 OR FEVER Last administered on 12/02/18at 02:31; Admin Dose 650 MG; Start 11/23/18 at 22:30 Acetaminophen (Tylenol Supp) 650 mg Q4H PRN ND PAIN LEVEL 1-3 OR FEVER Last administered on 12/02/18at 21:21; Admin Dose 650 MG; Start 11/23/18 at 22:30 Atorvastatin Calcium (Lipitor) 20 mg HS PO Last administered on 12/07/18at 20:48; Admin Dose 20 MG; Start 11/24/18 at 21:00 Albuterol/ Ipratropium (Duoneb) 3 ml Q4H RESP THERAPY PRN HHN SHORTNESS OF BREATH; Start 11/24/18 at 09:00 Aripiprazole (Abilify) 5 mg DAILY PO Last administered on 12/08/18 08:30; Admin Dose 5 MG; Start 11/24/18 at 09:30 Digoxin (Digoxin) 0.25 mg DAILY@1300 PO Last administered on 11/26/18 13:41; Admin Dose 0.25 MG; Start 11/24/18 at 13:00; Status Hold Escitalopram Oxalate (Lexapro) 20 mg DAILY PO Last administered on 12/08/18 08:30; Admin Dose 20 MG; Start 11/24/18 at 09:30 Loratadine (Claritin) 10 mg DAILY PO Last administered on 12/08/18 08:29; Admin Dose 10 MG; Start 11/24/18 at 10:00 Multivitamins Therapeutic (Theragran) 1 tab DAILY PO Last administered on 12/08/18 08:29; Admin Dose 1 TAB; Start 11/24/18 at 09:30 Potassium Chloride (Micro-K) 8 meq DAILY PO Last administered on 11/24/18 10:12; Admin Dose 8 MEQ; Start 11/24/18 at 10:00; Status Hold Tamsulosin HCl (Flomax) 0.4 mg HS PO Last administered on 12/07/18 20:48; Admin Dose 0.4 MG; Start 11/24/18 at 21:00 Calcium/Vitamin D (Oyster Shell/ Vit-D (500/200)) 1 tab DAILY PO Last administered on 12/08/18 08:29; Admin Dose 1 TAB; Start 11/24/18 at 09:30 Metoprolol Tartrate (Lopressor) 5 mg Q4H PRN IV HR>110 Hold SBP<100; Start 11/24/18 at 11:00 Diltiazem HCl (Cardizem Sr) 120 mg DAILY PO ; Start 11/25/18 at 14:00; Status Hold IV Flush (NS 10 ml) 10 ml PRN PRN IV IV PROTOCOL; Start 11/25/18 at 16:00 Hydralazine HCl (Apresoline) 25 mg Q8 PO Last administered on 1/15/19at 06:37; Admin Dose 25 MG; Start 11/26/18 at 22:00 Pantoprazole (Protonix Iv) 40 mg DAILY@06 IV Last administered on 12/08/18at 05:12; Admin Dose 40 MG; Start 11/29/18 at 06:00 Diagnostic Test (Pha) (Accu-Chek) 1 ea 02 XX Last administered on 12/06/18at 01:46; Admin Dose 1 EA; Start 12/01/18 at 02:00 Insulin Aspart (Novolog Insulin Pen) (Adult SC Insulin - Mild Algorithm)... Q4 SC Last administered on 12/08/18at 08:46; Admin Dose 1 UNIT; Start 11/30/18 at 09:00 Miscellaneous Information 1 ea NOTE XX ; Start 11/30/18 at 08:00 Glucose (Glutose) 15 gm Q15M PRN PO DECREASED GLUCOSE; Start 11/30/18 at 08:00 Glucose (Glutose) 22.5 gm Q15M PRN PO DECREASED GLUCOSE; Start 11/30/18 at 08:00 Dextrose (D50w Syringe) 25 ml Q15M PRN IV DECREASED GLUCOSE; Start 11/30/18 at 08:00 Dextrose (D50w Syringe) 50 ml Q15M PRN IV DECREASED GLUCOSE; Start 11/30/18 at 08:00 Glucagon (Glucagen) 1 mg Q15M PRN IM DECREASED GLUCOSE; Start 11/30/18 at 08:00 Glucose (Glutose) 15 gm Q15M PRN BUCCAL DECREASED GLUCOSE; Start 11/30/18 at 08:00 Midazolam HCl 50 ml @ 1 mls/hr TITRATE IV Last administered on 12/03/18at 03:19; Admin Dose 4 MLS/HR; Start 12/02/18 at 07:00 Norepinephrine 16 mg/Dextrose 500 ml @ 1.88 mls/hr TITRATE IV Last administered on 12/07/18at 22:16; Admin Dose 5.63 MLS/HR; Start 12/02/18 at 09:30 Fentanyl 100 ml @ 2.5 mls/hr TITRATE IV Last administered on 12/07/18at 12:01; Admin Dose 3 MLS/HR; Start 12/02/18 at 10:30 Acetaminophen (Tylenol Tab) 650 mg Q4H PRN PO mild pain Last administered on 12/05/18 01:13; Admin Dose 650 MG; Start 12/02/18 at 12:00 Morphine Sulfate (morphine) 2 mg Q2H PRN IV moderate to severe pain; Start at 12:00 Al Hydrox/Mg Hydrox/Simethicone (Mag-Al Plus) 30 ml Q4H PRN PO GASTROINTESTINAL UPSET; Start 12/02/18 at 12:00 Ondansetron HCl (Zofran Inj) 4 mg Q4H PRN IV NAUSEA AND/OR VOMITING Last administered on 12/07/18at 23:27; Admin Dose 4 MG; Start 12/02/18 at 12:00 Collagenase (Santyl) 1 applic DAILY TOP Last administered on 12/08/18 08:31; Admin Dose 1 APPLIC; Start 12/03/18 at 14:00 Aspirin (Aspirin) 81 mg DAILY NGT Last administered on 12/08/18 08:29; Admin Dose 81 MG; Start 12/06/18 at 09:00 Heparin Sodium (Porcine) (Heparin (5000 Units/1ml)) 5,000 unit BID SC Last administered on 12/08/18at 08:46; Admin Dose 5,000 UNIT; Start 12/06/18 at 21:00 Fluconazole 100 ml @ 100 mls/hr Q24H IVPB Last administered on 12/08/18 11:16; Admin Dose 100 MLS/HR; Start 12/07/18 at 11:00 Heparin Sodium (Porcine) (Heparin (1000 Units/ml)) 4,000 unit AFTER DIALYSIS CATHETER ; Start 12/08/18 at 09:30 Mannitol 50 ml @ 50 mls/5 min WITH DIALYSIS PRN IV Dysequilibrium syndrome ; Start 12/08/18 at 09:30 Albumin Human 100 ml @ 100 mls/hr WITH DIALYSIS PRN IV SBP less than 90 mm Hg; Start 12/08/18 at 09:30 Sodium Chloride (NS) -To prime the dialy... DIRECTED FOR HD PRN IV SBP less than 90 mm Hg; Start 12/08/18 at 09:30 TEO LOZOYA Dec 08, 2018 12:48
--- NOTE | 2018-12-08 13:06 | NUR ---
Dr. Skinner notified of ABG result with pH of 7.25 and pCO2 of 75.2. Pt. placed back on AC/VC at 1300.
[2018-12-08] MEDS: FENTAnyl (DRIP) 1000 mcg/100mL 100 ML IV SCH (16:55)
--- NOTE | 2018-12-08 20:28 | OPR ---
Date/Time of Note Date/Time of Note DATE: 12/08/18 TIME: 20:25 Operative Report Procedure Date: Dec 08, 2018 Preoperative Diagnosis RENAL FAILURE Postoperative Diagnosis SAME Operation/Procedure Performed RADHA CATHETER PLACEMENT Surgeon see signature line Cableman NONE Anesthesia Type: other (LOCAL) Estimated Blood Loss: minimal Transfusion none Specimen NONE Grafts/Implants none Complications none Pt Condition Post Procedure: critical Disposition: other (ICU) Procedure Description DATE OF OPERATION: 12/08/2018 SURGEON: Mary Vasquez MD PREOPERATIVE DIAGNOSIS: Renal failure POSTOPERATIVE DIAGNOSIS: same ANESTHESIA: Local BLOOD LOSS: minimal COMPLICATIONS: None. ACCESS: Right common femoral vein INDICATIONS: This is a 78 year-old male with renal failure requiring dialysis. Patient and family have been informed of the alternatives, risks, and benefits. Risks including but not limited to bleeding, thrombosis, embolization, myocardial infarction, , device malfunction, infection, pneumothorax, nephrotoxicity and patient has agreed to proceed. PROCEDURE: 1. Ultrasound guided access of right common femoral vein 2. Right common femoral vein non-tunneled hemodialysis catheter placement DESCRIPTION: The patient was in supine position in her ICU bed. Bed was placed in slight Trendelenburg position and the groin was prepped and draped with sterile technique. The central catheter was flushed with heparin to ensure function of each port. Landmarks were identified and the skin entry site was chosen using ultrasound guidance. The skin And subcutaneous tissue were anesthetized with 1% lidocaine. The vein was then located with a needle with a 10 mL syringe using ultrasound guidance. The needle was then directed towards the vein and was entered. The needle position was secured and syringe was removed. The hub was occluded to prevent venous air embolus. The guidewire was passed easily and the needle was removed while the wire was held in place. A small incision was then made at the point of the wire entry. The dilator was placed over the wire and the tract gently dilated. The catheter was fed over the wire, ensuring the wire exited from the port before advancing the catheter. The catheter was inserted to the desired depth and the wire removed. Each port was aspirated to ensure adequate blood flow and then flushed with heparinized saline solution. The catheter was secured in place with a 2-0 nylon suture and a sterile dressing was applied. The patient tolerated the procedure well and was in stable condition. All instrument, sponge and needle counts were correct 2. MARY VASQUEZ MD Dec 08, 2018 20:28
[2018-12-08] MEDS: TAMSULOSIN (SR) 0.4 MG CAP PO SCH (20:30)
[2018-12-08] MEDS: ATORVASTATIN 20 MG TAB PO SCH (20:30)
[2018-12-08] MEDS ORDERED: MANNITOL 20% 62.5 ML IV PRN (21:00)
--- NOTE | 2018-12-08 22:49 | CONS ---
DATE OF ADMISSION: 11/23/2018 DATE OF CONSULTATION: 12/08/2018 VASCULAR SURGERY CONSULTATION Dear Doctors: Jc Sanders is a 78-year-old gentleman who has presented to [facility] to a plethora of medical conditions and currently with acute hypoxic and hypercapnic respiratory failure secondary to pneumonia and currently developing acute on chronic renal failure. It appears t hat the patient's uremia has worsened with his BUN level being as high as 90 and creatinine being 4.3 , and the patient was required to undergo hemodialysis per our multidisciplinary team evaluation. [facility] consult has been obtained for further evaluation and management. REVIEW OF SYSTEMS: A 14-point review performed, however, limited secondary to the patient being intu bated and sedated. At the moment, the patient appears to be comfortable. PAST MEDICAL HISTORY: Entails atrial fibrillation, BPH, colon carcinoma, respiratory failure, pneumo radha, chronic kidney disease, non-ST elevated myocardial infarction, right bundle branch block, anemia of chronic disease, and sepsis. PAST SURGICAL HISTORY: Colonoscopy. SOCIAL HISTORY: Currently, no tobacco, alcohol, or illicit drug use. FAMILY HISTORY: Positive for hypertension. ALLERGIES: NO KNOWN DRUG ALLERGIES. PHYSICAL EXAMINATION: GENERAL: The patient is alert, is intubated and sedated, and comfortable. HEENT: Normocephalic, atraumatic. Mucosa moist. NECK: Supple. No carotid bruit. Right internal jugular vein, triple lumen catheter. CARDIOVASCULAR: S1 and S2 present, irregular. PULMONARY: Coarse breath sounds bilaterally, crackles at the bases. His ET tube intact. ABDOMEN: Soft, nontender, and nondistended. Bowel sounds positive. Truncal obesity. RIGHT LOWER EXTREMITY: Palpable femoral pulse. Nonpalpable pedal pulse. Motor and sensory unable t o ascertain as the patient is intubated. Edema of 2+. Lucero, a dry ulcer. LEFT LOWER EXTREMITY: Palpable femoral pulse. Nonpalpable pedal pulse. Motor and sensory unable to ascertain as the patient is intubated and sedated. Capillary refill 3 to 4 seconds. Edema of 1 to 2+. ASSESSMENT AND PLAN: 1. Bilateral lower extremity atherosclerosis: It seems the patient has nonpalpable pedal pulses at the moment. The patient does not have any significant tissue loss or ulcerations that would require any further vascular intervention. We will plan to continue to monitor the patient's followup. The patient is currently on vasopressors and intubated. Not much vascular option can be provided. 2. Renal failure: It seems the patient has developed acute on chronic kidney disease in which his r enal failure has worsened requiring dialysis with significant uremia. We will plan to place an urgen t hemodialysis catheter for him for now to temporize his renal failure. We will plan to continue the patient's progression and should he need a permanent dialysis catheter and/or access creation. Optimize vascular status (BP meds, diet, nutrition, exercise, sugar control, and antiplatelets). Discussed findings, plan, and management with the patient's son at the bedside; he agreed to proceed understanding all that is involved. Thank you for allowing us to partake in the care of your patient. Please call with any questions. Dictated By: MARY KATZ/NTS Conf#: [id number] DID#: [id number] CC: AJ PIERRE MD; ASAEL LEO MD; ALO VASQUEZ MD; NAYANA GARCIA; MARILEE CHAVEZ MD;*En dCC*
[2018-12-09] VITALS (78 sets, daily range): BP systolic 84–152; BP diastolic 47–67; PULSE 53–85; RESP 15–24
[2018-12-09] MEDS: HEPARIN 1000 UNITS/ML 10 ML INJ CATHETER SCH ×2 (00:17→18:06)
[2018-12-09] MEDS: Insulin NOVOLOG SS MILD Algorithm (NPO/TPN/ENTERAL FEEDS) SC SCH ×6 (01:00→21:00)
[2018-12-09] MEDS: ACCU-CHEK XX SCH (01:48)
[2018-12-09] MEDS: FENTAnyl (DRIP) 1000 mcg/100mL 100 ML IV SCH ×2 (04:31→13:13)
[2018-12-09] MEDS: PANTOPRAZOLE 40 MG INJ IV SCH (05:16)
--- NOTE | 2018-12-09 06:05 | NUR ---
EOSS: PATIENT REMAINED STABLE THROUGHOUT SHIFT. PUT IN A RADHA CATH AT BEGINNING OF SHIFT. PATIENT TOLERATED PROCEDURE WELL AND NO COMPLICATIONS PRESENT. DIALYSIS DONE TODAY, 1LITER TAKEN OUT, PATIENT TOLERATED HD WELL. ABLE TO TITRATE PATIENT OFF LEVOPHED AT 0200 AND MAP HAS BEEN ABOVE 65 SINCE. PATIENT HAS BEEN VERY RESTLESS ALL NIGHT LONG. TITRATED FENTANYL. STARTED TUBE FEEDING AGAIN SINCE 0000, PATIENT TOLERATING FEEDING WELL. PATIENT CHECKED ON HOURLY AND PRN BY NURSING STAFF.
--- NOTE | 2018-12-09 07:49 | PN ---
Date/Time of Note Date/Time of Note DATE: 12/09/18 TIME: 07:46 Assessment/Plan Lines/Catheters IV Catheter Type (from [facility]): RADHA CATH [place] in Place (from [facility]): Yes Assessment/Plan Chief Complaint/Hosp Course -Bilateral lower extremity atherosclerosis: It seems the patient has nonpalpable pedal pulses at the moment. The patient does not have any significa nt tissue loss or ulcerations that would require any further vascular intervention. We will plan to continue to monitor the patient's followup. The patient is currently on vasopressors and intubated. Not much vascular option can be provided. -Renal failure: It seems the patient has developed acute on chronic kidney disease in which his renal failure has worsened requiring dialysis with signifi cant uremia. -S/P Right femoral Radha catheter placement -Will plan to continue the patient's progression and should he need a permanent dialysis catheter and/or access creation. -Optimize vascular status (BP meds, diet, nutrition, exercise, sugar control, and antiplatelets). -Discussed findings, plan, and management with the patient's son at the bedside; he agreed to proceed understanding all that is involved. -Thank you for allowing us to partake in the care of your patient. Please call with any questions. Subjective 24 Hr Interval Summary no new vascular events overnight Exam/Review of Systems Vital Signs Vitals Vital Signs Date Temp Pulse Resp B/P (MAP) Pulse Ox O2 O2 Flow FiO2 Time Delivery Rate 12/09/18 65 16 96/51 (66) 99 Mechanical 06:00 Ventilator 12/09/18 40 05:15 12/09/18 97.4 04:00 Intake and Output 12/08/18 12/08/18 12/09/18 1515:00 23:00 07:00 IntakeIntake Total 325.04 ml 72.73 ml 347.51 ml OutputOutput Total 39 ml 51 ml 1526 ml BalanceBalance 286.04 ml 21.73 ml -1178.49 ml Exam Free Text/Dictation GENERAL: Intubated and sedated, and comfortable. HEENT: Normocephalic, atraumatic. Mucosa moist. NECK: Supple. No carotid bruit. Right internal jugular vein, triple lumen catheter. CARDIOVASCULAR: S1 and S2 present, irregular. PULMONARY: Coarse breath sounds bilaterally, crackles at the bases. His ET tube intact. ABDOMEN: Soft, nontender, and nondistended. Bowel sounds positive. Truncal obesity. RIGHT LOWER EXTREMITY: Palpable femoral pulse. Nonpalpable pedal pulse. Motor and sensory unable to ascertain as the patient is intubated. Edema of 2+. Lucero, a dry ulcer. groin catheter intact LEFT LOWER EXTREMITY: Palpable femoral pulse. Nonpalpable pedal pulse. Motor and sensory unable to ascertain as the patient is intubated and sedated. Capillary refill 3 to 4 seconds. Edema of 1 to 2+. Results Result Diagram: 12/09/1841912/09/18419 MARY VASQUEZ MD Dec 09, 2018 07:49
[2018-12-09] MEDS: ESCITALOPRAM 10 MG TAB PO SCH (08:36)
[2018-12-09] MEDS: ARIPIPRAZOLE 5 MG TAB PO SCH (08:36)
[2018-12-09] MEDS: LORATADINE 10 MG TAB PO SCH (08:36)
[2018-12-09] MEDS: ASPIRIN 325 MG TAB NGT SCH (08:36)
[2018-12-09] MEDS: MULTIVITAMINS THERAPEUTIC TAB PO SCH (08:36)
[2018-12-09] MEDS: HEPARIN 5,000 UNIT/1 ML VIAL SC SCH ×2 (08:38→21:55)
[2018-12-09] MEDS: CALCIUM/VITAMIN D (500/200) TAB PO SCH (08:40)
[2018-12-09] MEDS: BALSAM PERU/CASTOR OIL 60 GM TUBE TOP SCH ×2 (08:40→21:53)
--- NOTE | 2018-12-09 08:40 | CONS ---
Date/Time of Note Date/Time of Note DATE: 12/09/18 TIME: 08:37 Assessment/Plan Assessment/Plan Assessment/Plan Ventilator setting; AC of 16, tidal volume 500, PEEP of 5, 30% FiO2. Is currently on fentanyl drip at 100 mics per hour. Chest x-ray showing persistent pulmonary edema as well as pneumonia involving right lung. Assessment and recommendations; 1. Patient admitted with sepsis due to bilateral pneumonia and CHF. 2. Patient has failed multiple weaning trials from ventilator. 3. Element of acute renal failure, now requiring hemodialysis. 4. Sigmoid mass, status post sigmoidoscopy with placement of stent. 5. Elevated troponins, status post cardiac catheterization without any findings. 6. History of diabetes. 7. BPH. 8. Paroxysmal atrial fibrillation. 9. Anemia. Continue current supportive care. Obtain follow-up chest x-ray 24 hours. Patient to be given sedation vacation in 24 hours to assess for possible weaning from ventilator. Prognosis is guarded. 35 minutes of critical care time was spent evaluating the patient. Result Diagram: 12/09/18 0420 12/09/18 0420 Results 24hrs Laboratory Tests Test 12/08/18 08:44 12/08/18 12:30 12/08/18 12:57 12/08/18 16:47 Bedside Glucose 145 109 102 Blood Gas Blood arterial Specimen Source Arterial Blood 12/08/2018 12:38: Date Drawn 13 PM Arterial Blood pH 7.247 *L (Temp corrected) Arterial Blood 75.5 H pCO2 (Temp correct) Arterial Blood 75.2 L pO2 (Temp corrected) Arterial Blood 32.1 H HCO3 Arterial Blood 3.5 H Base Excess Arterial Blood 93.0 L Oxygen Saturation Nilson Test N/A Arterial Blood Right Brachial Gas Puncture Site Arterial 0.8 Blood Carboxyhemo globin Arterial Blood 0.3 Methemoglobin Blood Gas A-a O2 123.2 H Differential Oxyhemoglobin 92.0 L Percent Blood Gas 37.0 Temperature Blood Gas VENT - CPAP Modality FiO2 40.0 Blood Gas Low 5.0 PEEP Setting Blood Gas 10 Pressure Support Blood Gas MD BENJAMIN Critical Value Read Back Blood Gas [place] Notified Whom Blood Gas 12/08/2018 12:47: Notified Time 42 PM Test 12/08/18 20:29 12/09/18 01:47 12/09/18 04:20 12/09/18 05:15 Bedside Glucose 99 93 114 White Blood Count 6.7 # Red Blood Count 3.36 L Hemoglobin 7.6 L Hematocrit 28.5 L Mean Corpuscular 84.8 Volume Mean Corpuscular 22.6 L Hemoglobin Mean Corpuscular 26.7 L Hemoglobin Concen t Red Cell 29.2 H Distribution Width Platelet Count 215 Mean Platelet Volume Immature 0.600 H Granulocytes % Neutrophils % 69.5 Lymphocytes % 16.0 Monocytes % 9.0 Eosinophils % 4.6 Basophils % 0.3 Nucleated Red 0.0 Blood Cells % Immature 0.040 H Granulocytes # Neutrophils # 4.6 Lymphocytes # 1.1 Monocytes # 0.6 Eosinophils # 0.3 Basophils # 0.0 Nucleated Red 0.0 Blood Cells # Prothrombin Time 15.6 H Prothrombin Time 1.2 Ratio INR International 1.23 Normalized Ratio Activated 39.6 H Partial Thrombopl ast Time Sodium Level 138 Potassium Level 4.0 Chloride Level 95 L Carbon Dioxide 31 Level Anion Gap 12 Blood Urea 71 H Nitrogen Creatinine 4.28 H Est Glomerular Filtrat Rate mL/min Glucose Level 85 Calcium Level 8.6 Total Bilirubin 0.0 L Direct Bilirubin 0.00 Indirect 0.0 Bilirubin Aspartate Amino 22 Transf (AST/SGOT) Alanine 26 Aminotransferase (ALT/SGPT) Alkaline 62 Phosphatase Total Protein 6.1 Albumin 3.0 L Globulin 3.10 Albumin/Globulin 0.96 Ratio Consultation Date/Type/Reason Admit Date/Time Nov 23, 2018 at 22:01 Initial Consult Date 11/24/18 Type of Consult Pulmonary/critical care Requesting Provider: NAYANA GARCIA 24 HR Interval Summary Free Text/Dictation Patient's condition remains critical. Patient has failed multiple weaning trials from ventilator. Underwent hemodialysis. General exam; elderly male, orally intubated, sedated, currently in no distress. Exam/Review of Systems Vital Signs Vitals Vital Signs Date Temp Pulse Resp B/P (MAP) Pulse Ox O2 O2 Flow FiO2 Time Delivery Rate 12/09/18 97.5 61 16 97/56 (70) 98 Mechanical 08:00 Ventilator 12/09/18 40 08:00 Intake and Output 12/08/18 12/08/18 12/09/18 1515:00 23:00 07:00 IntakeIntake Total 325.04 ml 72.73 ml 357.51 ml OutputOutput Total 39 ml 51 ml 1526 ml BalanceBalance 286.04 ml 21.73 ml -1168.49 ml Exam H EENT exam; supple neck, positive JVD. No lymphadenopathy. Midline trachea. No thyromegaly. Orally intubated. Patient is edentulous. Pupils are small bilaterally. Chest exam; diminished breath sounds bilaterally. S1-S2 audible, no murmurs. Regular rhythm. Abdomen exam; soft, no organomegaly. Bowel sounds audible. Nondistended. Extremity exam; no peripheral edema. [employer] exam; patient is sedated. Medications Medications Current Medications Acetaminophen (Tylenol Liquid) 650 mg Q6H PRN PO PAIN LEVEL 1-3 OR FEVER Last administered on 12/02/18 02:31; Admin Dose 650 MG; Start 11/23/18 at 22:30 Acetaminophen (Tylenol Supp) 650 mg Q4H PRN [place] PAIN LEVEL 1-3 OR FEVER Last administered on 12/02/18 21:21; Admin Dose 650 MG; Start 11/23/18 at 22:30 Atorvastatin Calcium (Lipitor) 20 mg HS PO Last administered on 12/08/18 20:30; Admin Dose 20 MG; Start 11/24/18 at 21:00 Albuterol/ Ipratropium (Duoneb) 3 ml Q4H RESP THERAPY PRN HHN SHORTNESS OF BR EATH; Start 11/24/18 at 09:00 Aripiprazole (Abilify) 5 mg DAILY PO Last administered on 12/08/18 08:30; Admin Dose 5 MG; Start 11/24/18 at 09:30 Digoxin (Digoxin) 0.25 mg DAILY@1300 PO Last administered on 11/26/18 13:41; Admin Dose 0.25 MG; Start 11/24/18 at 13:00; Status Hold Escitalopram Oxalate (Lexapro) 20 mg DAILY PO Last administered on 12/08/18 08:30; Admin Dose 20 MG; Start 11/24/18 at 09:30 Loratadine (Claritin) 10 mg DAILY PO Last administered on 12/08/18 08:29; Admin Dose 10 MG; Start 11/24/18 at 10:00 Multivitamins Therapeutic (Theragran) 1 tab DAILY PO Last administered on 08:29; Admin Dose 1 TAB; Start 11/24/18 at 09:30 Potassium Chloride (Micro-K) 8 meq DAILY PO Last administered on 11/24/18at 10:12; Admin Dose 8 MEQ; Start 11/24/18 at 10:00; Status Hold Tamsulosin HCl (Flomax) 0.4 mg HS PO Last administered on 12/07/18at 20:48; Admin Dose 0.4 MG; Start 11/24/18 at 21:00 Calcium/Vitamin D (Oyster Shell/ Vit-D (500/200)) 1 tab DAILY PO Last administered on 12/08/18at 08:29; Admin Dose 1 TAB; Start 11/24/18 at 09:30 Metoprolol Tartrate (Lopressor) 5 mg Q4H PRN IV HR>110 Hold SBP<100; Start 11/24/18 at 11:00 Diltiazem HCl (Cardizem Sr) 120 mg DAILY PO ; Start 11/25/18 at 14:00; Status Hold IV Flush (NS 10 ml) 10 ml PRN PRN IV IV PROTOCOL; Start 11/25/18 at 16:00 Hydralazine HCl (Apresoline) 25 mg Q8 PO Last administered on 12/07/18at 06:37; Admin Dose 25 MG; Start 11/26/18 at 22:00 Pantoprazole (Protonix Iv) 40 mg DAILY@06 IV Last administered on 12/09/18at 05:16; Admin Dose 40 MG; Start 11/29/18 at 06:00 Diagnostic Test (Pha) (Accu-Chek) 1 ea 02 XX Last administered on 12/06/18at 01:46; Admin Dose 1 EA; Start 12/01/18 at 02:00 Insulin Aspart (Novolog Insulin Pen) (Adult SC Insulin - Mild Algorithm)... Q4 SC Last administered on 12/08/18at 08:46; Admin Dose 1 UNIT; Start 11/30/18 at 09:00 Miscellaneous Information 1 ea NOTE XX ; Start 11/30/18 at 08:00 Glucose (Glutose) 15 gm Q15M PRN PO DECREASED GLUCOSE; Start 11/30/18 at 08:00 Glucose (Glutose) 22.5 gm Q15M PRN PO DECREASED GLUCOSE; Start 11/30/18 at 08:00 Dextrose (D50w Syringe) 25 ml Q15M PRN IV DECREASED GLUCOSE; Start 11/30/18 at 08:00 Dextrose (D50w Syringe) 50 ml Q15M PRN IV DECREASED GLUCOSE; Start 11/30/18 at 08:00 Glucagon (Glucagen) 1 mg Q15M PRN IM DECREASED GLUCOSE; Start 11/30/18 at 08:00 Glucose (Glutose) 15 gm Q15M PRN BUCCAL DECREASED GLUCOSE; Start 11/30/18 at 08:00 Midazolam HCl 50 ml @ 1 mls/hr TITRATE IV Last administered on 12/03/18at 03:19; Admin Dose 4 MLS/HR; Start 12/02/18 at 07:00 Norepinephrine 16 mg/Dextrose 500 ml @ 1.88 mls/hr TITRATE IV Last administe red on 12/07/18at 22:16; Admin Dose 5.63 MLS/HR; Start 12/02/18 at 09:30 Fentanyl 100 ml @ 2.5 mls/hr TITRATE IV Last administered on 12/09/18at 04:31; Admin Dose 10 MLS/HR; Start 12/02/18 at 10:30 Acetaminophen (Tylenol Tab) 650 mg Q4H PRN PO mild pain Last administered on 12/05/18 01:13; Admin Dose 650 MG; Start 12/02/18 at 12:00 Morphine Sulfate (morphine) 2 mg Q2H PRN IV moderate to severe pain; Start 12/02/18 at 12:00 Al Hydrox/Mg Hydrox/Simethicone (Mag-Al Plus) 30 ml Q4H PRN PO GASTROINTESTINAL UPSET; Start 12/02/18 at 12:00 Ondansetron HCl (Zofran Inj) 4 mg Q4H PRN IV NAUSEA AND/OR VOMITING Last administered on 12/07/18at 23:27; Admin Dose 4 MG; Start 12/02/18 at 12:00 Collagenase (Santyl) 1 applic DAILY TOP Last administered on 12/08/18 08:31; Admin Dose 1 APPLIC; Start 12/03/18 at 14:00 Aspirin (Aspirin) 81 mg DAILY NGT Last administered on 12/08/18 08:29; Admin Dose 81 MG; Start 12/06/18 at 09:00 Heparin Sodium (Porcine) (Heparin (5000 Units/1ml)) 5,000 unit BID SC Last administered on 12/08/18at 08:46; Admin Dose 5,000 UNIT; Start 12/06/18 at 21:00 Fluconazole 100 ml @ 100 mls/hr Q24H IVPB Last administered on 12/08/18at 11:16; Admin Dose 100 MLS/HR; Start 12/07/18 at 11:00 Heparin Sodium (Porcine) (Heparin (1000 Units/ml)) 4,000 unit AFTER DIALYSIS CATHETER Last administered on 12/09/18at 00:17; Admin Dose 3,000 UNIT; Start 12/08/18 at 09:30 Albumin Human 100 ml @ 100 mls/hr WITH DIALYSIS PRN IV SBP less than 90 mm Hg; Start 12/08/18 at 09:30 Sodium Chloride (NS) -To prime the dialy... DIRECTED FOR HD PRN IV SBP less than 90 mm Hg; Start 12/08/18 at 09:30 Mannitol 62.5 ml @ 0 mls/hr WITH DIALYSIS PRN IV WITH DIALYSIS Last administered on 12/08/18at 22:03; Admin Dose 60 MLS/HR; Start 12/08/18 at 21:00 OK SOOD Dec 09, 2018 08:40
[2018-12-09] MEDS: COLLAGENASE 5 GM (UD JAR) TOP SCH (08:49)
--- NOTE | 2018-12-09 10:13 | PN ---
Date/Time of Note Date/Time of Note DATE: 12/09/18 TIME: 10:10 Assessment/Plan VTE Prophylaxis Risk score (from [facility])>0 risk: 13 SCD applied (from [facility]): No SCD contraindicated: other Pharmacological prophylaxis: heparin Lines/Catheters IV Catheter Type (from [facility]): RADHA CATH Urinary Cath still in place: Yes Reason Cath still needed: urinary retention Assessment/Plan Hospital Course S: Patient now off pressor support since 2 AM today. Received dialysis yesterday. Likely scheduled for another session today. Still intubated. Failed CPAP trial yesterday. O: VS - see below PE: Const: Lying in bed, family at the bedside, intubated Head: Atraumatic, normocephalic Eyes: Normal Conjunctiva, PERRLA, EOMI, normal sclera, no nystagmus ENT: Normal External Ears, Nose and Mouth, moist mucus membranes. Neck: Supple Resp: Some decreased breath sounds in the bases b/l Cardio: Regular rate and rhythm, no murmurs, S1 S2 present Abd: Soft, non tender x 4, slight distention. 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 2D echo November 24, 2018: Conclusions Normal left ventricular systolic function. Normal left ventricular cavity size. Sigmoid septum. Ejection fraction is visually estimated at 55 %. Normal right ventricular systolic function. Moderate enlargement of right ventricle. There is mild enlargement of left atrium. There is mild enlargement of right atrium. Mild mitral leaflet calcification. Mild mitral annular calcification. Trace mitral regurgitation. Normal appearance of the tricuspid valve. There is trace tricuspid regurgitation. Assessment/Plan: 78-year-old male recently diagnosed with new colon mass, who presents with: # Hypoxic and hypercapnic respiratory failure: Appears to be due to pulmonary edema and possible pneumonia- Failed BiPAP, intubated 12/02. Presently still intubated, has failed CPAP trial yesterday. Again now off pressor support since 2 AM today. - Continue Daily weaning trials per pulmonary recommendations # Sepsis: As evidenced by fever and tachycardia 4 days ago: Secondary to likely fungal UTI now, as UA positive and urine culture showing Rosalie growth greater than 100,000 colony-forming units -For now continue fluconazole, white blood cell count normal, no fevers # Cardiac- elevated troponins: - Got cardiac cath 12/02, clear coronaries. -Continue aspirin and statin for now, follow up cardiology recommendations # Sigmoid mass: Status post biopsy during recent hospitalization. 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 Mass is almost completely obstructive. Patient received rectal stent on December [address] Fang. -Monitor for now, Per discussion between hospitalist and Dr. Juan on 12/01, patient is not currently a surgical candidate due to his acute illness but may get surgery if he improves. -Per hematology oncology, it appears he has localized disease. Per their input, surgical resection is optimal treatment if he ever becomes stable for surgery. They have also stated typically radiation has no role in localized colon ca (radiation can play a role in palliative tx of met colon if painful site of metastatic disease for example). # Atrial fibrillation with RVR - resolved now -Continue to monitor, follow-up cardiology recommendations # Renal insufficiency: Oliguric acute on chronic renal failure. This was likely due to obstructive uropathy Being followed by renal team. Again received PermCath yesterday and now on dialysis which was started yesterday as well. -Continue monitor urine output, and continue dialysis per renal recommendations #Hypernatremia -resolved -Monitor for now # Diabetes: Sugar stable, continue insulin while in-house DVT: Heparin GI: PPI Code status: Full. Family wants everything done to treat his multiorgan failure and cancer. Critical care time spent on patient care today equals 45 minutes. Result Diagram: 12/09/1841912/09/18419 Results 24hrs Laboratory Tests Test 12/08/18 12:30 12/08/18 12:57 12/08/18 16:47 12/08/18 20:29 Blood Gas Blood arterial Specimen Source Arterial Blood 12/08/2018 12:38: Date Drawn 13 PM Arterial Blood pH 7.247 *L (Temp corrected) Arterial Blood 75.5 H pCO2 (Temp correct) Arterial Blood 75.2 L pO2 (Temp corrected) Arterial Blood 32.1 H HCO3 Arterial Blood 3.5 H Base Excess Arterial Blood 93.0 L Oxygen Saturation Nilson Test N/A Arterial Blood Right Brachial Gas Puncture Site Arterial 0.8 Blood Carboxyhemo globin Arterial Blood 0.3 Methemoglobin Blood Gas A-a O2 123.2 H Differential Oxyhemoglobin 92.0 L Percent Blood Gas 37.0 Temperature Blood Gas VENT - CPAP Modality FiO2 40.0 Blood Gas Low 5.0 PEEP Setting Blood Gas 10 Pressure Support Blood Gas MD BENJAMIN Critical Value Read Back Blood Gas SC Notified Whom Blood Gas 12/08/2018 12:47: Notified Time 42 PM Bedside Glucose 109 102 99 Test 12/09/18 01:47 12/09/18 04:20 12/09/18 05:15 Bedside Glucose 93 114 White Blood Count 6.7 # Red Blood Count 3.36 L Hemoglobin 7.6 L Hematocrit 28.5 L Mean Corpuscular 84.8 Volume Mean Corpuscular 22.6 L Hemoglobin Mean Corpuscular 26.7 L Hemoglobin Concen t Red Cell 29.2 H Distribution Width Platelet Count 215 Mean Platelet Volume Immature 0.600 H Granulocytes % Neutrophils % 69.5 Lymphocytes % 16.0 Monocytes % 9.0 Eosinophils % 4.6 Basophils % 0.3 Nucleated Red 0.0 Blood Cells % Immature 0.040 H Granulocytes # Neutrophils # 4.6 Lymphocytes # 1.1 Monocytes # 0.6 Eosinophils # 0.3 Basophils # 0.0 Nucleated Red 0.0 Blood Cells # Prothrombin Time 15.6 H Prothrombin Time 1.2 Ratio INR International 1.23 Normalized Ratio Activated 39.6 H Partial Thrombopl ast Time Sodium Level 138 Potassium Level 4.0 Chloride Level 95 L Carbon Dioxide 31 Level Anion Gap 12 Blood Urea 71 H Nitrogen Creatinine 4.28 H Est Glomerular Filtrat Rate mL/min Glucose Level 85 Calcium Level 8.6 Total Bilirubin 0.0 L Direct Bilirubin 0.00 Indirect 0.0 Bilirubin Aspartate Amino 22 Transf (AST/SGOT) Alanine 26 Aminotransferase (ALT/SGPT) Alkaline 62 Phosphatase Total Protein 6.1 Albumin 3.0 L Globulin 3.10 Albumin/Globulin 0.96 Ratio Exam/Review of Systems Vital Signs Vitals Vital Signs Date Temp Pulse Resp B/P (MAP) Pulse Ox O2 O2 Flow FiO2 Time Delivery Rate 12/09/18 97.5 61 16 97/56 (70) 98 Mechanical 08:00 Ventilator 12/09/18 40 08:00 Intake and Output 12/08/18 12/08/18 12/09/18 1515:00 23:00 07:00 IntakeIntake Total 325.04 ml 72.73 ml 357.51 ml OutputOutput Total 39 ml 51 ml 1526 ml BalanceBalance 286.04 ml 21.73 ml -1168.49 ml Medications Medications Current Medications Acetaminophen (Tylenol Liquid) 650 mg Q6H PRN PO PAIN LEVEL 1-3 OR FEVER Last administered on 12/02/18 02:31; Admin Dose 650 MG; Start 11/23/18 at 22:30 Acetaminophen (Tylenol Supp) 650 mg Q4H PRN [place] PAIN LEVEL 1-3 OR FEVER Last administered on 12/02/18 21:21; Admin Dose 650 MG; Start 11/23/18 at 22:30 Atorvastatin Calcium (Lipitor) 20 mg HS PO Last administered on 12/08/18 20:30; Admin Dose 20 MG; Start 11/24/18 at 21:00 Albuterol/ Ipratropium (Duoneb) 3 ml Q4H RESP THERAPY PRN HHN SHORTNESS OF BREATH; Start 11/24/18 at 09:00 Aripiprazole (Abilify) 5 mg DAILY PO Last administered on 12/09/18 08:36; Admin Dose 5 MG; Start 11/24/18 at 09:30 Digoxin (Digoxin) 0.25 mg DAILY@1300 PO Last administered on 11/26/18 13:41; Admin Dose 0.25 MG; Start 11/24/18 at 13:00; Status Hold Escitalopram Oxalate (Lexapro) 20 mg DAILY PO Last administered on 12/09/18 08:36; Admin Dose 20 MG; Start 11/24/18 at 09:30 Loratadine (Claritin) 10 mg DAILY PO Last administered on 12/09/18 08:36; Admin Dose 10 MG; Start 11/24/18 at 10:00 Multivitamins Therapeutic (Theragran) 1 tab DAILY PO Last administered on 1/17/19at 08:36; Admin Dose 1 TAB; Start 11/24/18 at 09:30 Potassium Chloride (Micro-K) 8 meq DAILY PO Last administered on 11/24/18at 10:12; Admin Dose 8 MEQ; Start 11/24/18 at 10:00; Status Hold Tamsulosin HCl (Flomax) 0.4 mg HS PO Last administered on 12/07/18at 20:48; Admin Dose 0.4 MG; Start 11/24/18 at 21:00 Calcium/Vitamin D (Oyster Shell/ Vit-D (500/200)) 1 tab DAILY PO Last administered on 12/09/18at 08:40; Admin Dose 1 TAB; Start 11/24/18 at 09:30 Metoprolol Tartrate (Lopressor) 5 mg Q4H PRN IV HR>110 Hold SBP<100; Start 11/24/18 at 11:00 Diltiazem HCl (Cardizem Sr) 120 mg DAILY PO ; Start 11/25/18 at 14:00; Status Hold IV Flush (NS 10 ml) 10 ml PRN PRN IV IV PROTOCOL; Start 11/25/18 at 16:00 Hydralazine HCl (Apresoline) 25 mg Q8 PO Last administered on 12/07/18at 06:37; Admin Dose 25 MG; Start 11/26/18 at 22:00 Pantoprazole (Protonix Iv) 40 mg DAILY@06 IV Last administered on 12/09/18at 05:16; Admin Dose 40 MG; Start 11/29/18 at 06:00 Diagnostic Test (Pha) (Accu-Chek) 1 ea 02 XX Last administered on 12/06/18at 01:46; Admin Dose 1 EA; Start 12/01/18 at 02:00 Insulin Aspart (Novolog Insulin Pen) (Adult SC Insulin - Mild Algorithm)... Q4 SC Last administered on 12/08/18at 08:46; Admin Dose 1 UNIT; Start 11/30/18 at 09:00 Miscellaneous Information 1 ea NOTE XX ; Start 11/30/18 at 08:00 Glucose (Glutose) 15 gm Q15M PRN PO DECREASED GLUCOSE; Start 11/30/18 at 08:00 Glucose (Glutose) 22.5 gm Q15M PRN PO DECREASED GLUCOSE; Start 11/30/18 at 08:00 Dextrose (D50w Syringe) 25 ml Q15M PRN IV DECREASED GLUCOSE; Start 11/30/18 at 08:00 Dextrose (D50w Syringe) 50 ml Q15M PRN IV DECREASED GLUCOSE; Start 11/30/18 at 08:00 Glucagon (Glucagen) 1 mg Q15M PRN IM DECREASED GLUCOSE; Start 11/30/18 at 08:00 Glucose (Glutose) 15 gm Q15M PRN BUCCAL DECREASED GLUCOSE; Start 11/30/18 at 08:00 Midazolam HCl 50 ml @ 1 mls/hr TITRATE IV Last administered on 12/03/18at 03:19; Admin Dose 4 MLS/HR; Start 12/02/18 at 07:00 Norepinephrine 16 mg/Dextrose 500 ml @ 1.88 mls/hr TITRATE IV Last administered on 12/07/18at 22:16; Admin Dose 5.63 MLS/HR; Start 12/02/18 at 09:30 Fentanyl 100 ml @ 2.5 mls/hr TITRATE IV Last administered on 12/09/18at 04:31; Admin Dose 10 MLS/HR; Start 12/02/18 at 10:30 Acetaminophen (Tylenol Tab) 650 mg Q4H PRN PO mild pain Last administered on 12/05/18at 01:13; Admin Dose 650 MG; Start 12/02/18 at 12:00 Morphine Sulfate (morphine) 2 mg Q2H PRN IV moderate to severe pain; Start 12/02/18 at 12:00 Al Hydrox/Mg Hydrox/Simethicone (Mag-Al Plus) 30 ml Q4H PRN PO GASTROINTESTINAL UPSET; Start 12/02/18 at 12:00 Ondansetron HCl (Zofran Inj) 4 mg Q4H PRN IV NAUSEA AND/OR VOMITING Last administered on 12/07/18at 23:27; Admin Dose 4 MG; Start 12/02/18 at 12:00 Collagenase (Santyl) 1 applic DAILY TOP Last administered on 12/09/18at 08:49; Admin Dose 1 APPLIC; Start 12/03/18 at 14:00 Aspirin (Aspirin) 81 mg DAILY NGT Last administered on 12/09/18at 08:36; Admin Dose 81 MG; Start 12/06/18 at 09:00 Heparin Sodium (Porcine) (Heparin (5000 Units/1ml)) 5,000 unit BID SC Last administered on 12/09/18at 08:38; Admin Dose 5,000 UNIT; Start 12/06/18 at 21:00 Fluconazole 100 ml @ 100 mls/hr Q24H IVPB Last administered on 12/08/18at 11: 16; Admin Dose 100 MLS/HR; Start 12/07/18 at 11:00 Heparin Sodium (Porcine) (Heparin (1000 Units/ml)) 4,000 unit AFTER DIALYSIS CATHETER Last administered on 12/09/18at 00:17; Admin Dose 3,000 UNIT; Start 12/08/18 at 09:30 Albumin Human 100 ml @ 100 mls/hr WITH DIALYSIS PRN IV SBP less than 90 mm Hg; Start 12/08/18 at 09:30 Sodium Chloride (NS) -To prime the dialy... DIRECTED FOR HD PRN IV SBP less than 90 mm Hg; Start 12/08/18 at 09:30 Mannitol 62.5 ml @ 0 mls/hr WITH DIALYSIS PRN IV WITH DIALYSIS Last administered on 12/08/18at 22:03; Admin Dose 60 MLS/HR; Start 12/08/18 at 21:00 NAYANA GARCIA Dec 09, 2018 10:13
[2018-12-09] MEDS: FLUCONAZOLE 200 MG (PMX) 100 ML IVPB SCH (11:36)
--- NOTE | 2018-12-09 12:02 | CONS ---
Date/Time of Note Date/Time of Note DATE: 12/09/18 TIME: 11:55 Assessment/Plan Assessment/Plan Assessment/Plan This is an unfortunate 78 yo with # nearly obstructive colon ca -he has very poor performance status and multiple co-morbidities/multiple medical complications -SP intubated - Per surgery patient is not a resection candidate - s/p rectal stent - Chemo only if patient is medically stable # anemia-hgb 7.6 keep >7 due to colon ca iron studies - ordered to determine if he needs iron supplementation; fu #CAD s/p cardiac cath, no critical obstruction #oliguric/renal failure - Hemo dialysis today per nephro A total of 50 minutes of face to face time was spent speaking with the patient' son of which greater than 50% was spent in counseling and coordination of care and the detailed question and answer session. Dw staff Patient seen in collaboration with Dr Langley Result Diagram: 12/09/18 0420 12/09/18 0420 Results 24hrs Laboratory Tests Test 12/08/18 12:30 12/08/18 12:57 12/08/18 16:47 12/08/18 20:29 Blood Gas Blood arterial Specimen Source Arterial Blood 12/08/2018 12:38: Date Drawn 13 PM Arterial Blood pH 7.247 *L (Temp corrected) Arterial Blood 75.5 H pCO2 (Temp correct) Arterial Blood 75.2 L pO2 (Temp corrected) Arterial Blood 32.1 H HCO3 Arterial Blood 3.5 H Base Excess Arterial Blood 93.0 L Oxygen Saturation Nilson Test N/A Arterial Blood Right Brachial Gas Puncture Site Arterial 0.8 Blood Carboxyhemo globin Arterial Blood 0.3 Methemoglobin Blood Gas A-a O2 123.2 H Differential Oxyhemoglobin 92.0 L Percent Blood Gas 37.0 Temperature Blood Gas VENT - CPAP Modality FiO2 40.0 Blood Gas Low 5.0 PEEP Setting Blood Gas 10 Pressure Support Blood Gas MD BENJAMIN Critical Value Read Back Blood Gas CO Notified Whom Blood Gas 12/08/2018 12:47: Notified Time 42 PM Bedside Glucose 109 102 99 Test 12/09/18 01:47 12/09/18 04:20 12/09/18 05:15 12/09/18 11:34 Bedside Glucose 93 114 103 White Blood Count 6.7 # Red Blood Count 3.36 L Hemoglobin 7.6 L Hematocrit 28.5 L Mean Corpuscular 84.8 Volume Mean Corpuscular 22.6 L Hemoglobin Mean Corpuscular 26.7 L Hemoglobin Concen t Red Cell 29.2 H Distribution Width Platelet Count 215 Mean Platelet Volume Immature 0.600 H Granulocytes % Neutrophils % 69.5 Lymphocytes % 16.0 Monocytes % 9.0 Eosinophils % 4.6 Basophils % 0.3 Nucleated Red 0.0 Blood Cells % Immature 0.040 H Granulocytes # Neutrophils # 4.6 Lymphocytes # 1.1 Monocytes # 0.6 Eosinophils # 0.3 Basophils # 0.0 Nucleated Red 0.0 Blood Cells # Prothrombin Time 15.6 H Prothrombin Time 1.2 Ratio INR International 1.23 Normalized Ratio Activated 39.6 H Partial Thrombopl ast Time Sodium Level 138 Potassium Level 4.0 Chloride Level 95 L Carbon Dioxide 31 Level Anion Gap 12 Blood Urea 71 H Nitrogen Creatinine 4.28 H Est Glomerular Filtrat Rate mL/min Glucose Level 85 Calcium Level 8.6 Total Bilirubin 0.0 L Direct Bilirubin 0.00 Indirect 0.0 Bilirubin Aspartate Amino 22 Transf (AST/SGOT) Alanine 26 Aminotransferase (ALT/SGPT) Alkaline 62 Phosphatase Total Protein 6.1 Albumin 3.0 L Globulin 3.10 Albumin/Globulin 0.96 Ratio Consultation Date/Type/Reason Admit Date/Time Nov 23, 2018 at 10:01 pm Initial Consult Date 11/24/18 Type of Consult ONCOLOGY Reason for Consultation Colon Cancer Requesting Provider: NAYANA GARCIA 24 HR Interval Summary Free Text/Dictation - For HD today - Son at bed side- all Qs answered. - no new events reported last night per staff. Subjective hx not possible: pt non-verbal, pt critical status Constitutional: requiring IVF, requiring O2 Exam/Review of Systems Vital Signs Vitals Vital Signs Date Temp Pulse Resp B/P (MAP) Pulse Ox O2 O2 Flow FiO2 Time Delivery Rate 12/09/18 97.5 61 16 97/56 (70) 98 Mechanical 08:00 Ventilator 12/09/18 40 08:00 Intake and Output 12/08/18 12/08/18 12/09/18 1515:00 23:00 07:00 IntakeIntake Total 325.04 ml 72.73 ml 357.51 ml OutputOutput Total 39 ml 51 ml 1526 ml BalanceBalance 286.04 ml 21.73 ml -1168.49 ml Exam Constitutional: non-verbal, frail Psych: nl mood/affect Head: atraumatic Eyes: nl lids, nl sclera ENMT: nl external ears & nose Neck: non-tender, other (ET tube intact) Respiratory: diminished breath sounds (bilaterally) Cardiovascular: nl pulses, other (s1s2) Gastrointestinal: soft Musculoskeletal: muscle weakness, range of motion Extremities: edema Neurological: unresponsive Medications Medications Current Medications Acetaminophen (Tylenol Liquid) 650 mg Q6H PRN PO PAIN LEVEL 1-3 OR FEVER Last administered on 12/02/18 02:31; Admin Dose 650 MG; Start 11/23/18 at 22:30 Acetaminophen (Tylenol Supp) 650 mg Q4H PRN [place] PAIN LEVEL 1-3 OR FEVER Last administered on 12/02/18 21:21; Admin Dose 650 MG; Start 11/23/18 at 22:30 Atorvastatin Calcium (Lipitor) 20 mg HS PO Last administered on 12/08/18 20:30; Admin Dose 20 MG; Start 11/24/18 at 21:00 Albuterol/ Ipratropium (Duoneb) 3 ml Q4H RESP THERAPY PRN HHN SHORTNESS OF BREATH; Start 11/24/18 at 09:00 Aripiprazole (Abilify) 5 mg DAILY PO Last administered on 12/09/18 08:36; Admin Dose 5 MG; Start 11/24/18 at 09:30 Digoxin (Digoxin) 0.25 mg DAILY@1300 PO Last administered on 11/26/18 13:41; Admin Dose 0.25 MG; Start 11/24/18 at 13:00; Status Hold Escitalopram Oxalate (Lexapro) 20 mg DAILY PO Last administered on 12/09/18 08:36; Admin Dose 20 MG; Start 11/24/18 at 09:30 Loratadine (Claritin) 10 mg DAILY PO Last administered on 12/09/18 08:36; Admin Dose 10 MG; Start 11/24/18 at 10:00 Multivitamins Therapeutic (Theragran) 1 tab DAILY PO Last administered on 12/09/18 08:36; Admin Dose 1 TAB; Start 11/24/18 at 09:30 Potassium Chloride (Micro-K) 8 meq DAILY PO Last administered on 11/24/18 10:12; Admin Dose 8 MEQ; Start 11/24/18 at 10:00; Status Hold Tamsulosin HCl (Flomax) 0.4 mg HS PO Last administered on 12/07/18at 20:48; Admin Dose 0.4 MG; Start 11/24/18 at 21:00 Calcium/Vitamin D (Oyster Shell/ Vit-D (500/200)) 1 tab DAILY PO Last administered on 12/09/18at 08:40; Admin Dose 1 TAB; Start 11/24/18 at 09:30 Metoprolol Tartrate (Lopressor) 5 mg Q4H PRN IV HR>110 Hold SBP<100; Start 11/24/18 at 11:00 Diltiazem HCl (Cardizem Sr) 120 mg DAILY PO ; Start 11/25/18 at 14:00; Status Hold IV Flush (NS 10 ml) 10 ml PRN PRN IV IV PROTOCOL; Start 11/25/18 at 16:00 Hydralazine HCl (Apresoline) 25 mg Q8 PO Last administered on 12/07/18at 06:37; Admin Dose 25 MG; Start 11/26/18 at 22:00 Pantoprazole (Protonix Iv) 40 mg DAILY@06 IV Last administered on 12/09/18at 05:16; Admin Dose 40 MG; Start 11/29/18 at 06:00 Diagnostic Test (Pha) (Accu-Chek) 1 ea 02 XX Last administered on 12/06/18at 01:46; Admin Dose 1 EA; Start 12/01/18 at 02:00 Insulin Aspart (Novolog Insulin Pen) (Adult SC Insulin - Mild Algorithm)... Q4 SC Last administered on 12/08/18at 08:46; Admin Dose 1 UNIT; Start 11/30/18 at 09:00 Miscellaneous Information 1 ea NOTE XX ; Start 11/30/18 at 08:00 Glucose (Glutose) 15 gm Q15M PRN PO DECREASED GLUCOSE; Start 11/30/18 at 08:00 Glucose (Glutose) 22.5 gm Q15M PRN PO DECREASED GLUCOSE; Start 11/30/18 at 08:00 Dextrose (D50w Syringe) 25 ml Q15M PRN IV DECREASED GLUCOSE; Start 11/30/18 at 08:00 Dextrose (D50w Syringe) 50 ml Q15M PRN IV DECREASED GLUCOSE; Start 11/30/18 at 08:00 Glucagon (Glucagen) 1 mg Q15M PRN IM DECREASED GLUCOSE; Start 11/30/18 at 08:00 Glucose (Glutose) 15 gm Q15M PRN BUCCAL DECREASED GLUCOSE; Start 11/30/18 at 08:00 Midazolam HCl 50 ml @ 1 mls/hr TITRATE IV Last administered on 12/03/18at 03:19; Admin Dose 4 MLS/HR; Start 12/02/18 at 07:00 Norepinephrine 16 mg/Dextrose 500 ml @ 1.88 mls/hr TITRATE IV Last administered on 12/07/18 22:16; Admin Dose 5.63 MLS/HR; Start 12/02/18 at 09:30 Fentanyl 100 ml @ 2.5 mls/hr TITRATE IV Last administered on 12/09/18at 04:31; Admin Dose 10 MLS/HR; Start 12/02/18 at 10:30 Acetaminophen (Tylenol Tab) 650 mg Q4H PRN PO mild pain Last administered on 12/05/18 01:13; Admin Dose 650 MG; Start 12/02/18 at 12:00 Morphine Sulfate (morphine) 2 mg Q2H PRN IV moderate to severe pain; Start 12/02/18 at 12:00 Al Hydrox/Mg Hydrox/Simethicone (Mag-Al Plus) 30 ml Q4H PRN PO GASTROINTESTINAL UPSET; Start 12/02/18 at 12:00 Ondansetron HCl (Zofran Inj) 4 mg Q4H PRN IV NAUSEA AND/OR VOMITING Last administered on 12/07/18 23:27; Admin Dose 4 MG; Start 12/02/18 at 12:00 Collagenase (Santyl) 1 applic DAILY TOP Last administered on 12/09/18 08:49; Admin Dose 1 APPLIC; Start 12/03/18 at 14:00 Aspirin (Aspirin) 81 mg DAILY NGT Last administered on 12/09/18 08:36; Admin Dose 81 MG; Start 12/06/18 at 09:00 Heparin Sodium (Porcine) (Heparin (5000 Units/1ml)) 5,000 unit BID SC Last administered on 12/09/18 08:38; Admin Dose 5,000 UNIT; Start 12/06/18 at 21:00 Fluconazole 100 ml @ 100 mls/hr Q24H IVPB Last administered on 1/17/19at 11:36; Admin Dose 100 MLS/HR; Start 12/07/18 at 11:00 Heparin Sodium (Porcine) (Heparin (1000 Units/ml)) 4,000 unit AFTER DIALYSIS CATHETER Last administered on 12/09/18at 00:17; Admin Dose 3,000 UNIT; Start 12/08/18 at 09:30 Albumin Human 100 ml @ 100 mls/hr WITH DIALYSIS PRN IV SBP less than 90 mm Hg; Start 12/08/18 at 09:30 Sodium Chloride (NS) -To prime the dialy... DIRECTED FOR HD PRN IV SBP less than 90 mm Hg; Start 12/08/18 at 09:30 Mannitol 62.5 ml @ 0 mls/hr WITH DIALYSIS PRN IV WITH DIALYSIS Last administered on 12/08/18at 22:03; Admin Dose 60 MLS/HR; Start 12/08/18 at 21:00 DORIAN MOSS Dec 09, 2018 12:02 pm
--- NOTE | 2018-12-09 12:23 | NUR ---
dialysis confirmation no. for 12/10/18 [id number] . between 8-10am
--- NOTE | 2018-12-09 12:28 | CONS ---
Date/Time of Note Date/Time of Note DATE: 12/09/18 TIME: 12:25 Assessment/Plan Assessment/Plan Hospital Course IMPRESSION: 1. Non-ST elevation myocardial infarction, currently down trending cardiac enzymes likely a type 2 demand infarct in the setting of fevers, hypercarbic respiratory failure.-downtrended cardiac enzymes. NO cp. Echo this admit 11/24 with NL EF 55%. Now s/p LHC 12/02 with no sig major epicardial obstructive cad. LVEDP 21 2. Abnormal electrocardiogram. 3. Right bundle branch block. 4. Colonic mass s/p stent placement 5. Anemia. 6. Renal failure-worsening 7. Leukocytosis. 8. Coagulopathy. 9. Sepsis. 10. Atrial fibrillation-now in SR 11.CHF-diastolic acute on chronic 12. Resp failure s/p intubation 14. Hypotension on levophed 15. PTX Recc: -ICU -Continue asa/statin -off pressors at this time/follow BP closely -Continue broad spectrum abx's and f/u cx data -wean vent as possible -continue asa -HD for volume removal -surgery when stable? Result Diagram: 12/09/180 12/09/180 Results 24hrs Laboratory Tests Test 12/08/18 12:30 12/08/18 12:57 12/08/18 16:47 12/08/18 20:29 Blood Gas Blood arterial Specimen Source Arterial Blood 12/08/2018 12:38: Date Drawn 13 PM Arterial Blood pH 7.247 *L (Temp corrected) Arterial Blood 75.5 H pCO2 (Temp correct) Arterial Blood 75.2 L pO2 (Temp corrected) Arterial Blood 32.1 H HCO3 Arterial Blood 3.5 H Base Excess Arterial Blood 93.0 L Oxygen Saturation Nilson Test N/A Arterial Blood Right Brachial Gas Puncture Site Arterial 0.8 Blood Carboxyhemo globin Arterial Blood 0.3 Methemoglobin Blood Gas A-a O2 123.2 H Differential Oxyhemoglobin 92.0 L Percent Blood Gas 37.0 Temperature Blood Gas VENT - CPAP Modality FiO2 40.0 Blood Gas Low 5.0 PEEP Setting Blood Gas 10 Pressure Support Blood Gas MD BENJAMIN Critical Value Read Back Blood Gas MO Notified Whom Blood Gas 12/08/2018 12:47: Notified Time 42 PM Bedside Glucose 109 102 99 Test 12/09/18 01:47 12/09/18 04:20 12/09/18 05:15 12/09/18 11:34 Bedside Glucose 93 114 103 White Blood Count 6.7 # Red Blood Count 3.36 L Hemoglobin 7.6 L Hematocrit 28.5 L Mean Corpuscular 84.8 Volume Mean Corpuscular 22.6 L Hemoglobin Mean Corpuscular 26.7 L Hemoglobin Concen t Red Cell 29.2 H Distribution Width Platelet Count 215 Mean Platelet Volume Immature 0.600 H Granulocytes % Neutrophils % 69.5 Lymphocytes % 16.0 Monocytes % 9.0 Eosinophils % 4.6 Basophils % 0.3 Nucleated Red 0.0 Blood Cells % Immature 0.040 H Granulocytes # Neutrophils # 4.6 Lymphocytes # 1.1 Monocytes # 0.6 Eosinophils # 0.3 Basophils # 0.0 Nucleated Red 0.0 Blood Cells # Prothrombin Time 15.6 H Prothrombin Time 1.2 Ratio INR International 1.23 Normalized Ratio Activated 39.6 H Partial Thrombopl ast Time Sodium Level 138 Potassium Level 4.0 Chloride Level 95 L Carbon Dioxide 31 Level Anion Gap 12 Blood Urea 71 H Nitrogen Creatinine 4.28 H Est Glomerular Filtrat Rate mL/min Glucose Level 85 Calcium Level 8.6 Total Bilirubin 0.0 L Direct Bilirubin 0.00 Indirect 0.0 Bilirubin Aspartate Amino 22 Transf (AST/SGOT) Alanine 26 Aminotransferase (ALT/SGPT) Alkaline 62 Phosphatase Total Protein 6.1 Albumin 3.0 L Globulin 3.10 Albumin/Globulin 0.96 Ratio Consultation Date/Type/Reason Admit Date/Time Nov 23, 2018 at 22:01 Initial Consult Date 11/24/18 Type of Consult cardiology Reason for Consultation Nstemi Requesting Provider: NAYANA GARCIA Exam/Review of Systems Vital Signs Vitals Vital Signs Date Temp Pulse Resp B/P (MAP) Pulse Ox O2 O2 Flow FiO2 Time Delivery Rate 12/09/18 98.6 63 16 98/52 (67) 98 Mechanical 12:00 Ventilator 12/09/18 40 08:00 Intake and Output 12/08/18 12/08/18 12/09/18 1515:00 23:00 07:00 IntakeIntake Total 325.04 ml 72.73 ml 357.51 ml OutputOutput Total 39 ml 51 ml 1526 ml BalanceBalance 286.04 ml 21.73 ml -1168.49 ml Exam Review of Systems: CONSTITUTIONAL: No fevers, chills. PULMONARY: intubated CARDIOVASCULAR: No chest pain/palpitations GASTROINTESTINAL: No nausea/vomiting. GENITOURINARY: No hematuria/dysuria. MUSCULOSKELETAL: No myagias/arthalgias. PSYCHIATRIC: The patient denies depression. NEUROLOGIC: sedated Constitutional: other (sedated) Head: normocephalic ENMT: intubated Neck: supple, jvd (9-10 cm water) Respiratory: diminished breath sounds Cardiovascular: regular rate and rhythm Gastrointestinal: soft, non-tender Musculoskeletal: muscle tone (normal) Extremities: edema (none) Neurological: other (No focal deficits) Medications Medications Current Medications Acetaminophen (Tylenol Liquid) 650 mg Q6H PRN PO PAIN LEVEL 1-3 OR FEVER Last administered on 12/02/18at 02:31; Admin Dose 650 MG; Start 11/23/18 at 22:30 Acetaminophen (Tylenol Supp) 650 mg Q4H PRN [place] PAIN LEVEL 1-3 OR FEVER Last administered on 12/02/18at 21:21; Admin Dose 650 MG; Start 11/23/18 at 22:30 Atorvastatin Calcium (Lipitor) 20 mg HS PO Last administered on 12/08/18at 20:30; Admin Dose 20 MG; Start 11/24/18 at 21:00 Albuterol/ Ipratropium (Duoneb) 3 ml Q4H RESP THERAPY PRN HHN SHORTNESS OF BREATH; Start 11/24/18 at 09:00 Aripiprazole (Abilify) 5 mg DAILY PO Last administered on 12/09/18at 08:36; Admin Dose 5 MG; Start 11/24/18 at 09:30 Digoxin (Digoxin) 0.25 mg DAILY@1300 PO Last administered on 11/26/18at 13:41; Admin Dose 0.25 MG; Start 11/24/18 at 13:00; Status Hold Escitalopram Oxalate (Lexapro) 20 mg DAILY PO Last administered on 12/09/18at 08:36; Admin Dose 20 MG; Start 11/24/18 at 09:30 Loratadine (Claritin) 10 mg DAILY PO Last administered on 12/09/18at 08:36; Admin Dose 10 MG; Start 11/24/18 at 10:00 Multivitamins Therapeutic (Theragran) 1 tab DAILY PO Last administered on 12/09/18at 08:36; Admin Dose 1 TAB; Start 11/24/18 at 09:30 Potassium Chloride (Micro-K) 8 meq DAILY PO Last administered on 11/24/18at 10:12; Admin Dose 8 MEQ; Start 11/24/18 at 10:00; Status Hold Tamsulosin HCl (Flomax) 0.4 mg HS PO Last administered on 12/07/18at 20:48; Admin Dose 0.4 MG; Start 11/24/18 at 21:00 Calcium/Vitamin D (Oyster Shell/ Vit-D (500/200)) 1 tab DAILY PO Last administered on 12/09/18at 08:40; Admin Dose 1 TAB; Start 11/24/18 at 09:30 Metoprolol Tartrate (Lopressor) 5 mg Q4H PRN IV HR>110 Hold SBP<100; Start 11/24/18 at 11:00 Diltiazem HCl (Cardizem Sr) 120 mg DAILY PO ; Start 11/25/18 at 14:00; Status Hold IV Flush (NS 10 ml) 10 ml PRN PRN IV IV PROTOCOL; Start 11/25/18 at 16:00 Hydralazine HCl (Apresoline) 25 mg Q8 PO Last administered on 12/07/18at 06:37; Admin Dose 25 MG; Start 11/26/18 at 22:00 Pantoprazole (Protonix Iv) 40 mg DAILY@06 IV Last administered on 12/09/18at 05:16; Admin Dose 40 MG; Start 11/29/18 at 06:00 Diagnostic Test (Pha) (Accu-Chek) 1 ea 02 XX Last administered on 12/06/18at 01:46; Admin Dose 1 EA; Start 12/01/18 at 02:00 Insulin Aspart (Novolog Insulin Pen) (Adult SC Insulin - Mild Algorithm)... Q4 SC Last administered on 12/08/18at 08:46; Admin Dose 1 UNIT; Start 11/30/18 at 09:00 Miscellaneous Information 1 ea NOTE XX ; Start 11/30/18 at 08:00 Glucose (Glutose) 15 gm Q15M PRN PO DECREASED GLUCOSE; Start 11/30/18 at 08:00 Glucose (Glutose) 22.5 gm Q15M PRN PO DECREASED GLUCOSE; Start 11/30/18 at 08:00 Dextrose (D50w Syringe) 25 ml Q15M PRN IV DECREASED GLUCOSE; Start 11/30/18 at 08:00 Dextrose (D50w Syringe) 50 ml Q15M PRN IV DECREASED GLUCOSE; Start 11/30/18 at 08:00 Glucagon (Glucagen) 1 mg Q15M PRN IM DECREASED GLUCOSE; Start 11/30/18 at 08:00 Glucose (Glutose) 15 gm Q15M PRN BUCCAL DECREASED GLUCOSE; Start 11/30/18 at 08:00 Midazolam HCl 50 ml @ 1 mls/hr TITRATE IV Last administered on 12/03/18at 03:19; Admin Dose 4 MLS/HR; Start 12/02/18 at 07:00 Norepinephrine 16 mg/Dextrose 500 ml @ 1.88 mls/hr TITRATE IV Last administered on 12/07/18at 22:16; Admin Dose 5.63 MLS/HR; Start 12/02/18 at 09:30 Fentanyl 100 ml @ 2.5 mls/hr TITRATE IV Last administered on 12/09/18at 04:31; Admin Dose 10 MLS/HR; Start 12/02/18 at 10:30 Acetaminophen (Tylenol Tab) 650 mg Q4H PRN PO mild pain Last administered on 12/05/18at 01:13; Admin Dose 650 MG; Start 12/02/18 at 12:00 Morphine Sulfate (morphine) 2 mg Q2H PRN IV moderate to severe pain; Start 12/02/18 at 12:00 Al Hydrox/Mg Hydrox/Simethicone (Mag-Al Plus) 30 ml Q4H PRN PO GASTROINTESTINAL UPSET; Start 12/02/18 at 12:00 Ondansetron HCl (Zofran Inj) 4 mg Q4H PRN IV NAUSEA AND/OR VOMITING Last administered on 12/07/18at 23:27; Admin Dose 4 MG; Start 12/02/18 at 12:00 Collagenase (Santyl) 1 applic DAILY TOP Last administered on 12/09/18at 08:49; Admin Dose 1 APPLIC; Start 12/03/18 at 14:00 Aspirin (Aspirin) 81 mg DAILY NGT Last administered on 12/09/18at 08:36; Admin Dose 81 MG; Start 12/06/18 at 09:00 Heparin Sodium (Porcine) (Heparin (5000 Units/1ml)) 5,000 unit BID SC Last administered on 12/09/18at 08:38; Admin Dose 5,000 UNIT; Start 12/06/18 at 21:00 Fluconazole 100 ml @ 100 mls/hr Q24H IVPB Last administered on 12/09/18at 11:36; Admin Dose 100 MLS/HR; Start 12/07/18 at 11:00 Heparin Sodium (Porcine) (Heparin (1000 Units/ml)) 4,000 unit AFTER DIALYSIS CATHETER Last administered on 12/09/18at 00:17; Admin Dose 3,000 UNIT; Start 12/08/18 at 09:30 Albumin Human 100 ml @ 100 mls/hr WITH DIALYSIS PRN IV SBP less than 90 mm Hg; Start 12/08/18 at 09:30 Sodium Chloride (NS) -To prime the dialy... DIRECTED FOR HD PRN IV SBP less than 90 mm Hg; Start 12/08/18 at 09:30 Mannitol 62.5 ml @ 0 mls/hr WITH DIALYSIS PRN IV WITH DIALYSIS Last a dministered on 12/08/18at 22:03; Admin Dose 60 MLS/HR; Start 12/08/18 at 21:00 TWAN ESTEVEZ Dec 09, 2018 12:28
--- NOTE | 2018-12-09 12:30 | CONS ---
Date/Time of Note Date/Time of Note DATE: 12/09/18 TIME: 12:30 Assessment/Plan Assessment/Plan Assessment/Plan 1. Oliguric Acute on chronic renal failure due to Sepsis and Hemodynamics + obstructive uropathy - Worsening causing uremic encephalopathy 2. atrial fibrillation with RVR- now rate controlled 3. acute hypoxemic and hypercapnic resp failure due to PNA - failed BIPAP; intubated 4. Sepsis 5. Positive troponin 6. BPH on flomax 7. Colon CA Plan: BUN/Cr continues to rise - started on HD on 12/08/18- Tolerated 2 hr Hd yesterday, will order HD x 3 hr today and tomorrow both days S/p LHC which showed moderate Nonobstructive CAD - medical management SP Colonoscopy with stent placement by GI Full code d/w pt son at bedside will follow up Result Diagram: 12/09/1841912/09/18 042 Results 24hrs Laboratory Tests Test 12/08/18 12:57 12/08/18 16:47 12/08/18 20:29 12/09/18 01:47 Bedside Glucose 109 102 99 93 Test 12/09/18 04:20 12/09/18 05:15 12/09/18 11:34 White Blood Count 6.7 # Red Blood Count 3.36 L Hemoglobin 7.6 L Hematocrit 28.5 L Mean Corpuscular 84.8 Volume Mean Corpuscular 22.6 L Hemoglobin Mean Corpuscular 26.7 L Hemoglobin Concent Red Cell 29.2 H Distribution Width Platelet Count 215 Mean Platelet Volume Immature 0.600 H Granulocytes % Neutrophils % 69.5 Lymphocytes % 16.0 Monocytes % 9.0 Eosinophils % 4.6 Basophils % 0.3 Nucleated Red Blood 0.0 Cells % Immature 0.040 H Granulocytes # Neutrophils # 4.6 Lymphocytes # 1.1 Monocytes # 0.6 Eosinophils # 0.3 Basophils # 0.0 Nucleated Red Blood 0.0 Cells # Prothrombin Time 15.6 H Prothrombin Time 1.2 Ratio INR International 1.23 Normalized Ratio Activated 39.6 H Partial Thromboplast Time Sodium Level 138 Potassium Level 4.0 Chloride Level 95 L Carbon Dioxide Level 31 Anion Gap 12 Blood Urea Nitrogen 71 H Creatinine 4.28 H Est Glomerular Filtrat Rate mL/min Glucose Level 85 Calcium Level 8.6 Total Bilirubin 0.0 L Direct Bilirubin 0.00 Indirect Bilirubin 0.0 Aspartate Amino 22 Transf (AST/SGOT) Alanine 26 Aminotransferase (AL T/SGPT) Alkaline Phosphatase 62 Total Protein 6.1 Albumin 3.0 L Globulin 3.10 Albumin/Globulin 0.96 Ratio Bedside Glucose 114 103 Consultation Date/Type/Reason Admit Date/Time Nov 23, 2018 at 22:01 Initial Consult Date 11/24/18 Type of Consult NEPHROLOGY Requesting Provider: NAYANA GARCIA Exam/Review of Systems Vital Signs Vitals Vital Signs Date Temp Pulse Resp B/P (MAP) Pulse Ox O2 O2 Flow FiO2 Time Delivery Rate 12/09/18 98.6 63 16 98/52 (67) 98 Mechanical 12:00 Ventilator 12/09/18 40 08:00 Intake and Output 12/08/18 12/08/18 12/09/18 1515:00 23:00 07:00 IntakeIntake Total 325.04 ml 72.73 ml 357.51 ml OutputOutput Total 39 ml 51 ml 1526 ml BalanceBalance 286.04 ml 21.73 ml -1168.49 ml Exam Constitutional: moderate distress, intubated on ventilator, ET tube in place Respiratory: Bilateral coarse BS+, basilar crackles Cardiovascular: regular rate and rhythm, nl pulses Gastrointestinal: soft, non-tender Musculoskeletal: 1-2+ pitting edema , + hess catheter Neurological: Uncooperative for neuro exam Medications Medications Current Medications Acetaminophen (Tylenol Liquid) 650 mg Q6H PRN PO PAIN LEVEL 1-3 OR FEVER Last administered on 12/02/18at 02:31; Admin Dose 650 MG; Start 11/23/18 at 22:30 Acetaminophen (Tylenol Supp) 650 mg Q4H PRN ND PAIN LEVEL 1-3 OR FEVER Last administered on 12/02/18at 21:21; Admin Dose 650 MG; Start 11/23/18 at 22:30 Atorvastatin Calcium (Lipitor) 20 mg HS PO Last administered on 12/08/18at 20:30; Admin Dose 20 MG; Start 11/24/18 at 21:00 Albuterol/ Ipratropium (Duoneb) 3 ml Q4H RESP THERAPY PRN HHN SHORTNESS OF BREATH; Start 11/24/18 at 09:00 Aripiprazole (Abilify) 5 mg DAILY PO Last administered on 12/09/18at 08:36; Admin Dose 5 MG; Start 11/24/18 at 09:30 Digoxin (Digoxin) 0.25 mg DAILY@1300 PO Last administered on 11/26/18at 13:41; Admin Dose 0.25 MG; Start 11/24/18 at 13:00; Status Hold Escitalopram Oxalate (Lexapro) 20 mg DAILY PO Last administered on 12/09/18at 08:36; Admin Dose 20 MG; Start 11/24/18 at 09:30 Loratadine (Claritin) 10 mg DAILY PO Last administered on 12/09/18at 08:36; Admin Dose 10 MG; Start 11/24/18 at 10:00 Multivitamins Therapeutic (Theragran) 1 tab DAILY PO Last administered on 12/09/18at 08:36; Admin Dose 1 TAB; Start 11/24/18 at 09:30 Potassium Chloride (Micro-K) 8 meq DAILY PO Last administered on 11/24/18at 10:12; Admin Dose 8 MEQ; Start 11/24/18 at 10:00; Status Hold Tamsulosin HCl (Flomax) 0.4 mg HS PO Last administered on 12/07/18at 20:48; Admin Dose 0.4 MG; Start 11/24/18 at 21:00 Calcium/Vitamin D (Oyster Shell/ Vit-D (500/200)) 1 tab DAILY PO Last administered on 12/09/18at 08:40; Admin Dose 1 TAB; Start 11/24/18 at 09:30 Metoprolol Tartrate (Lopressor) 5 mg Q4H PRN IV HR>110 Hold SBP<100; Start 11/24/18 at 11:00 Diltiazem HCl (Cardizem Sr) 120 mg DAILY PO ; Start 11/25/18 at 14:00; Status Hold IV Flush (NS 10 ml) 10 ml PRN PRN IV IV PROTOCOL; Start 11/25/18 at 16:00 Hydralazine HCl (Apresoline) 25 mg Q8 PO Last administered on 12/07/18at 06:37; Admin Dose 25 MG; Start 11/26/18 at 22:00 Pantoprazole (Protonix Iv) 40 mg DAILY@06 IV Last administered on 12/09/18at 05:16; Admin Dose 40 MG; Start 11/29/18 at 06:00 Diagnostic Test (Pha) (Accu-Chek) 1 ea 02 XX Last administered on 12/06/18at 01:46; Admin Dose 1 EA; Start 12/01/18 at 02:00 Insulin Aspart (Novolog Insulin Pen) (Adult SC Insulin - Mild Algorithm)... Q4 SC Last administered on 12/08/18at 08:46; Admin Dose 1 UNIT; Start 11/30/18 at 09:00 Miscellaneous Information 1 ea NOTE XX ; Start 11/30/18 at 08:00 Glucose (Glutose) 15 gm Q15M PRN PO DECREASED GLUCOSE; Start 11/30/18 at 08:00 Glucose (Glutose) 22.5 gm Q15M PRN PO DECREASED GLUCOSE; Start 11/30/18 at 08:00 Dextrose (D50w Syringe) 25 ml Q15M PRN IV DECREASED GLUCOSE; Start 11/30/18 at 08:00 Dextrose (D50w Syringe) 50 ml Q15M PRN IV DECREASED GLUCOSE; Start 11/30/18 at 08:00 Glucagon (Glucagen) 1 mg Q15M PRN IM DECREASED GLUCOSE; Start 11/30/18 at 08:00 Glucose (Glutose) 15 gm Q15M PRN BUCCAL DECREASED GLUCOSE; Start 11/30/18 at 08:00 Midazolam HCl 50 ml @ 1 mls/hr TITRATE IV Last administered on 12/03/18at 03:19; Admin Dose 4 MLS/HR; Start 12/02/18 at 07:00 Norepinephrine 16 mg/Dextrose 500 ml @ 1.88 mls/hr TITRATE IV Last admin istered on 12/07/18at 22:16; Admin Dose 5.63 MLS/HR; Start 12/02/18 at 09:30 Fentanyl 100 ml @ 2.5 mls/hr TITRATE IV Last administered on 12/09/18at 04:31; Admin Dose 10 MLS/HR; Start 12/02/18 at 10:30 Acetaminophen (Tylenol Tab) 650 mg Q4H PRN PO mild pain Last administered on 12/05/18at 01:13; Admin Dose 650 MG; Start 12/02/18 at 12:00 Morphine Sulfate (morphine) 2 mg Q2H PRN IV moderate to severe pain; Start 12/02/18 at 12:00 Al Hydrox/Mg Hydrox/Simethicone (Mag-Al Plus) 30 ml Q4H PRN PO GASTROINTESTINAL UPSET; Start 12/02/18 at 12:00 Ondansetron HCl (Zofran Inj) 4 mg Q4H PRN IV NAUSEA AND/OR VOMITING Last administered on 12/07/18at 23:27; Admin Dose 4 MG; Start 12/02/18 at 12:00 Collagenase (Santyl) 1 applic DAILY TOP Last administered on 12/09/18 08:49; Admin Dose 1 APPLIC; Start 12/03/18 at 14:00 Aspirin (Aspirin) 81 mg DAILY NGT Last administered on 12/09/18 08:36; Admin Dose 81 MG; Start 12/06/18 at 09:00 Heparin Sodium (Porcine) (Heparin (5000 Units/1ml)) 5,000 unit BID SC Last administered on 12/09/18 08:38; Admin Dose 5,000 UNIT; Start 12/06/18 at 21:00 Fluconazole 100 ml @ 100 mls/hr Q24H IVPB Last administered on 12/09/18 11:36; Admin Dose 100 MLS/HR; Start 12/07/18 at 11:00 Heparin Sodium (Porcine) (Heparin (1000 Units/ml)) 4,000 unit AFTER DIALYSIS CATHETER Last administered on 12/09/18 00:17; Admin Dose 3,000 UNIT; Start 12/08/18 at 09:30 Albumin Human 100 ml @ 100 mls/hr WITH DIALYSIS PRN IV SBP less than 90 mm Hg; Start 12/08/18 at 09:30 Sodium Chloride (NS) -To prime the dialy... DIRECTED FOR HD PRN IV SBP less than 90 mm Hg; Start 12/08/18 at 09:30 Mannitol 62.5 ml @ 0 mls/hr WITH DIALYSIS PRN IV WITH DIALYSIS Last administered on 12/08/18at 22:03; Admin Dose 60 MLS/HR; Start 12/08/18 at 21:00 RENAN HERNANDEZ MD Dec 09, 2018 12:30
[2018-12-09] MEDS: ATORVASTATIN 20 MG TAB PO SCH (21:52)
[2018-12-09] MEDS: TAMSULOSIN (SR) 0.4 MG CAP PO SCH (21:52)
[2018-12-10] VITALS (88 sets, daily range): BP systolic 75–136; BP diastolic 40–90; PULSE 53–102; RESP 15–27
[2018-12-10] MEDS: FENTAnyl (DRIP) 1000 mcg/100mL 100 ML IV SCH ×2 (00:09→11:30)
[2018-12-10] MEDS: Insulin NOVOLOG SS MILD Algorithm (NPO/TPN/ENTERAL FEEDS) SC SCH ×6 (01:00→21:00)
[2018-12-10] MEDS: ACCU-CHEK XX SCH (01:44)
--- NOTE | 2018-12-10 05:12 | NUR ---
TRANSPORT CALLED FOR TUBE FEEDING FORMULA
[2018-12-10] MEDS: PANTOPRAZOLE 40 MG INJ IV SCH (05:18)
--- NOTE | 2018-12-10 07:17 | PN ---
Date/Time of Note Date/Time of Note DATE: 12/10/18 TIME: 07:16 Assessment/Plan Lines/Catheters IV Catheter Type (from [facility]): RADHA [place] in Place (from [facility]): Yes Assessment/Plan Chief Complaint/Hosp Course -Bilateral lower extremity atherosclerosis: It seems the patient has nonpalpable pedal pulses at the moment. The patient does not have any significant tissue loss or ulcerations that would require any further vascular intervention. We will plan to continue to monitor the patient's followup. The patient is currently on vasopressors and intubated. Not much vascular option can be provided. -Renal failure: It seems the patient has developed acute on chronic kidney disease in which his renal failure has worsened requiring dialysis with significant uremia. -S/P Right femoral Radha catheter placement -Will plan to continue the patient's progression and should he need a permanent dialysis catheter and/or access creation. -Optimize vascular status (BP meds, diet, nutrition, exercise, sugar control, and antiplatelets). -Discussed findings, plan, and management with the patient's son at the bedside; he agreed to proceed understanding all that is involved. -Thank you for allowing us to partake in the care of your patient. Please call with any questions. Subjective 24 Hr Interval Summary no new vascular events overnight Constitutional: no complaints Exam/Review of Systems Vital Signs Vitals Vital Signs Date Temp Pulse Resp B/P (MAP) Pulse Ox O2 O2 Flow FiO2 Time Delivery Rate 12/10/18 82 16 96 40 05:45 12/10/18 103/51 Mechanical 03:00 (68) Ventilator 12/10/18 97.8 00:00 Intake and Output 12/09/18 12/09/18 12/10/18 1515:00 23:00 07:00 IntakeIntake Total 804.98 ml 721.2 ml 340 ml OutputOutput Total 30 ml 2025 ml 15 ml BalanceBalance 774.98 ml -1303.8 ml 325 ml Exam Free Text/Dictation GENERAL: Intubated and sedated, and comfortable. HEENT: Normocephalic, atraumatic. Mucosa moist. NECK: Supple. No carotid bruit. Right internal jugular vein, triple lumen catheter. CARDIOVASCULAR: S1 and S2 present, irregular. PULMONARY: Coarse breath sounds bilaterally, crackles at the bases. His ET tube intact. ABDOMEN: Soft, nontender, and nondistended. Bowel sounds positive. Truncal obesity. RIGHT LOWER EXTREMITY: Palpable femoral pulse. Nonpalpable pedal pulse. Motor and sensory unable to ascertain as the patient is intubated. Edema of 2+. Lucero, a dry ulcer. groin catheter intact LEFT LOWER EXTREMITY: Palpable femoral pulse. Nonpalpable pedal pulse. Motor and sensory unable to ascertain as the patient is intubated and sedated. Capillary refill 3 to 4 seconds. Edema of 1 to 2+. Results Result Diagram: 12/10/18 0436 12/10/18 0434 MARY VASQUEZ MD Dec 10, 2018 07:16
--- NOTE | 2018-12-10 07:29 | NUR ---
PATIENT HAD 30 CC BLOOD LEAKING FROM RECTUM AT END OF SHIFT LINEN CHANGE. MD PIERRE NOTIFIED AND PHONE CALL PLACED TO MD BRIGGS. ON HOLD WHILE DAY SHIFT RN CAME, FOLLOW UP WITH SURGEON ENDORSED TO DAY SHIFT RN. Addendum: 12/10/18 at 0757 by GABINO BURT RN DAY SHIFT RN ARMANDO CAMACHO
[2018-12-10] MEDS: ARIPIPRAZOLE 5 MG TAB PO SCH (08:48)
[2018-12-10] MEDS: ASPIRIN 325 MG TAB NGT SCH (08:48)
[2018-12-10] MEDS: COLLAGENASE 5 GM (UD JAR) TOP SCH (08:48)
[2018-12-10] MEDS: ESCITALOPRAM 10 MG TAB PO SCH (08:48)
[2018-12-10] MEDS: CALCIUM/VITAMIN D (500/200) TAB PO SCH (08:48)
[2018-12-10] MEDS: FLUCONAZOLE 200 MG TAB NGT SCH (08:48)
[2018-12-10] MEDS: MULTIVITAMINS THERAPEUTIC TAB PO SCH (08:48)
[2018-12-10] MEDS: BALSAM PERU/CASTOR OIL 60 GM TUBE TOP SCH ×2 (08:49→21:26)
[2018-12-10] MEDS: ALBUMIN HUMAN 25% 100 ML IV PRN (10:08)
--- NOTE | 2018-12-10 10:41 | PN ---
Date/Time of Note Date/Time of Note DATE: 12/10/18 TIME: 10:36 Assessment/Plan VTE Prophylaxis Risk score (from [facility])>0 risk: 11 SCD applied (from [facility]): Yes Pharmacological prophylaxis: NA/contraindicated Pharm contraindication: bleeding Lines/Catheters IV Catheter Type (from [facility]): RADHA Urinary Cath still in place: Yes Reason Cath still needed: urinary retention Assessment/Plan Hospital Course S: Patient still intubated. Received dialysis again yesterday. Per nursing staff apparently had some rectal bleeding last night. O: VS - see below PE: Const: Lying in bed, family at the bedside, intubated Head: Atraumatic, normocephalic Eyes: Normal Conjunctiva, PERRLA, EOMI, normal sclera, no nystagmus ENT: Normal External Ears, Nose and Mouth, moist mucus membranes. Neck: Supple Resp: Some decreased breath sounds in the bases b/l Cardio: Regular rate and rhythm, no murmurs, S1 S2 present Abd: Soft, non tender x 4, slight distention. 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 2D echo November 24, 2018: Conclusions Normal left ventricular systolic function. Normal left ventricular cavity size. Sigmoid septum. Ejection fraction is visually estimated at 55 %. Normal right ventricular systolic function. Moderate enlargement of right ventricle. There is mild enlargement of left atrium. There is mild enlargement of right atrium. Mild mitral leaflet calcification. Mild mitral annular calcification. Trace mitral regurgitation. Normal appearance of the tricuspid valve. There is trace tricuspid regurgitation. Assessment/Plan: 78-year-old male recently diagnosed with new colon mass, who presents with: # Hypoxic and hypercapnic respiratory failure: Appears to be due to pulmonary edema and possible pneumonia- Failed BiPAP, intubated 12/02. Presently still i ntubated, has failed CPAP trial yesterday. Again now off pressor support since 2 AM today. - Continue Daily weaning trials per pulmonary recommendations # Sepsis: As evidenced by fever and tachycardia 5 days ago: Secondary to likely fungal UTI now, as UA positive and urine culture showing Rosalie growth greater than 100,000 colony-forming units -For now continue fluconazole, white blood cell count normal, no fevers # Cardiac- elevated troponins: - Got cardiac cath 12/02, clear coronaries. -Continue aspirin and statin for now, follow up cardiology recommendations # Sigmoid mass: Status post biopsy during recent hospitalization. 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 Mass is almost completely obstructive. Patient received rectal stent on December [address] Fang. -Monitor for now, Per discussion between hospitalist and Dr. Juan on 12/01, patient is not currently a surgical candidate due to his acute illness but may get surgery if he improves. -Per hematology oncology, it appears he has localized disease. Per their input, surgical resection is optimal treatment if he ever becomes stable for surgery. They have also stated typically radiation has no role in localized colon ca (radiation can play a role in palliative tx of met colon if painful site of metastatic disease for example). # Atrial fibrillation with RVR - resolved now -Continue to monitor, follow-up cardiology recommendations # Renal insufficiency: Oliguric acute on chronic renal failure. This was likely due to obstructive uropathy Being followed by renal team. Again received PermC ath earlier and now on dialysis, getting again today -Continue monitor urine output, and continue dialysis per renal recommendations #Hypernatremia -resolved -Monitor for now # Diabetes: Sugar stable, continue insulin while in-house DVT: Heparin GI: PPI Code status: Full. Family wants everything done to treat his multiorgan failure and cancer. Critical care time spent on patient care today equals 45 minutes. Result Diagram: 12/10/18 0436 12/10/18 0434 Results 24hrs Laboratory Tests Test 12/09/18 11:34 12/09/18 17:08 12/09/18 21:52 12/10/18 01:36 Bedside Glucose 103 121 108 117 Test 12/10/18 04:34 12/10/18 04:36 12/10/18 04:50 12/10/18 05:19 Sodium Level 135 Potassium Level 4.1 Chloride Level 97 Carbon Dioxide Level 31 Anion Gap 7 Blood Urea Nitrogen 45 #H Creatinine 3.41 H Est Glomerular Filtrat Rate mL/min Glucose Level 112 Calcium Level 8.5 White Blood Count 6.2 Red Blood Count 3.33 L Hemoglobin 7.5 L Hematocrit 28.3 L Mean Corpuscular 85.0 Volume Mean Corpuscular 22.5 L Hemoglobin Mean Corpuscular 26.5 L Hemoglobin Concent Red Cell 29.4 H Distribution Width Platelet Count 211 Mean Platelet Volume Immature 0.700 H Granulocytes % Neutrophils % 66.7 Lymphocytes % 17.9 Monocytes % 9.6 Eosinophils % 4.6 Basophils % 0.5 Nucleated Red Blood 0.0 Cells % Immature 0.040 H Granulocytes # Neutrophils # 4.1 Lymphocytes # 1.1 Monocytes # 0.6 Eosinophils # 0.3 Basophils # 0.0 Nucleated Red Blood 0.0 Cells # Phosphorus Level 3.0 Magnesium Level 1.9 Bedside Glucose 110 Test 12/10/18 08:51 Bedside Glucose 108 Exam/Review of Systems Vital Signs Vitals Vital Signs Date Temp Pulse Resp B/P (MAP) Pulse Ox O2 O2 Flow FiO2 Time Delivery Rate 12/10/18 74 16 106/53 95 Mechanical 09:30 (70) Ventilator 12/10/18 40 05:45 12/10/18 98.4 04:00 Intake and Output 12/09/18 12/09/18 12/10/18 1515:00 23:00 07:00 IntakeIntake Total 804.98 ml 776.76 ml 693.16 ml OutputOutput Total 30 ml 2025 ml 25 ml BalanceBalance 774.98 ml -1248.24 ml 668.16 ml Medications Medications Current Medications Acetaminophen (Tylenol Liquid) 650 mg Q6H PRN PO PAIN LEVEL 1-3 OR FEVER Last administered on 12/02/18at 02:31; Admin Dose 650 MG; Start 11/23/18 at 22:30 Acetaminophen (Tylenol Supp) 650 mg Q4H PRN CA PAIN LEVEL 1-3 OR FEVER Last administered on 12/02/18at 21:21; Admin Dose 650 MG; Start 11/23/18 at 22:30 Atorvastatin Calcium (Lipitor) 20 mg HS PO Last administered on 12/09/18at 21:52; Admin Dose 20 MG; Start 11/24/18 at 21:00 Albuterol/ Ipratropium (Duoneb) 3 ml Q4H RESP THERAPY PRN HHN SHORTNESS OF BREATH; Start 11/24/18 at 09:00 Aripiprazole (Abilify) 5 mg DAILY PO Last administered on 12/10/18 08:48; Admin Dose 5 MG; Start 11/24/18 at 09:30 Digoxin (Digoxin) 0.25 mg DAILY@1300 PO Last administered on 11/26/18 13:41; Admin Dose 0.25 MG; Start 11/24/18 at 13:00; Status Hold Escitalopram Oxalate (Lexapro) 20 mg DAILY PO Last administered on 12/10/18 08:48; Admin Dose 20 MG; Start 11/24/18 at 09:30 Loratadine (Claritin) 10 mg DAILY PO Last administered on 12/09/18 08:36; Admin Dose 10 MG; Start 11/24/18 at 10:00 Multivitamins Therapeutic (Theragran) 1 tab DAILY PO Last administered on 12/10/18 08:48; Admin Dose 1 TAB; Start 11/24/18 at 09:30 Potassium Chloride (Micro-K) 8 meq DAILY PO Last administered on 11/24/18 10:12; Admin Dose 8 MEQ; Start 11/24/18 at 10:00; Status Hold Tamsulosin HCl (Flomax) 0.4 mg HS PO Last administered on 12/09/18 21:52; Admin Dose 0.4 MG; Start 11/24/18 at 21:00 Calcium/Vitamin D (Oyster Shell/ Vit-D (500/200)) 1 tab DAILY PO Last administered on 12/10/18 08:48; Admin Dose 1 TAB; Start 11/24/18 at 09:30 Metoprolol Tartrate (Lopressor) 5 mg Q4H PRN IV HR>110 Hold SBP<100; Start 11/24/18 at 11:00 Diltiazem HCl (Cardizem Sr) 120 mg DAILY PO ; Start 11/25/18 at 14:00; Status Hold IV Flush (NS 10 ml) 10 ml PRN PRN IV IV PROTOCOL; Start 11/25/18 at 16:00 Hydralazine HCl (Apresoline) 25 mg Q8 PO Last administered on 12/09/18at 13:13; Admin Dose 25 MG; Start 11/26/18 at 22:00 Pantoprazole (Protonix Iv) 40 mg DAILY@06 IV Last administered on 12/10/18at 05:18; Admin Dose 40 MG; Start 11/29/18 at 06:00 Diagnostic Test (Pha) (Accu-Chek) 1 ea 02 XX Last administered on 12/10/18at 01:44; Admin Dose 1 EA; Start 12/01/18 at 02:00 Insulin Aspart (Novolog Insulin Pen) (Adult SC Insulin - Mild Algorithm)... Q4 SC Last administered on 12/08/18at 08:46; Admin Dose 1 UNIT; Start 11/30/18 at 09:00 Miscellaneous Information 1 ea NOTE XX ; Start 11/30/18 at 08:00 Glucose (Glutose) 15 gm Q15M PRN PO DECREASED GLUCOSE; Start 11/30/18 at 08:00 Glucose (Glutose) 22.5 gm Q15M PRN PO DECREASED GLUCOSE; Start 11/30/18 at 08:00 Dextrose (D50w Syringe) 25 ml Q15M PRN IV DECREASED GLUCOSE; Start 11/30/18 at 08:00 Dextrose (D50w Syringe) 50 ml Q15M PRN IV DECREASED GLUCOSE; Start 11/30/18 at 08:00 Glucagon (Glucagen) 1 mg Q15M PRN IM DECREASED GLUCOSE; Start 11/30/18 at 08:00 Glucose (Glutose) 15 gm Q15M PRN BUCCAL DECREASED GLUCOSE; Start 11/30/18 at 08:00 Midazolam HCl 50 ml @ 1 mls/hr TITRATE IV Last administered on 12/03/18at 03:19; Admin Dose 4 MLS/HR; Start 12/02/18 at 07:00 Norepinephrine 16 mg/Dextrose 500 ml @ 1.88 mls/hr TITRATE IV Last admini stered on 12/09/18at 20:04; Admin Dose 1.88 MLS/HR; Start 12/02/18 at 09:30 Fentanyl 100 ml @ 2.5 mls/hr TITRATE IV Last administered on 12/10/18at 00:09; Admin Dose 10 MLS/HR; Start 12/02/18 at 10:30 Acetaminophen (Tylenol Tab) 650 mg Q4H PRN PO mild pain Last administered on 12/05/18 01:13; Admin Dose 650 MG; Start 12/02/18 at 12:00 Morphine Sulfate (morphine) 2 mg Q2H PRN IV moderate to severe pain; Start 12/02/18 at 12:00 Al Hydrox/Mg Hydrox/Simethicone (Mag-Al Plus) 30 ml Q4H PRN PO GASTROINTESTINAL UPSET; Start 12/02/18 at 12:00 Ondansetron HCl (Zofran Inj) 4 mg Q4H PRN IV NAUSEA AND/OR VOMITING Last administered on 12/07/18 23:27; Admin Dose 4 MG; Start 12/02/18 at 12:00 Collagenase (Santyl) 1 applic DAILY TOP Last administered on 12/10/18 08:48; Admin Dose 1 APPLIC; Start 12/03/18 at 14:00 Aspirin (Aspirin) 81 mg DAILY NGT Last administered on 12/10/18 08:48; Admin Dose 81 MG; Start 12/06/18 at 09:00 Heparin Sodium (Porcine) (Heparin (5000 Units/1ml)) 5,000 unit BID SC Last administered on 12/09/18 21:55; Admin Dose 5,000 UNIT; Start 12/06/18 at 21:00 Heparin Sodium (Porcine) (Heparin (1000 Units/ml)) 4,000 unit AFTER DIALYSIS CATHETER Last administered on 12/09/18 18:06; Admin Dose 4,000 UNIT; Start 12/08/18 at 09:30 Albumin Human 100 ml @ 100 mls/hr WITH DIALYSIS PRN IV SBP less than 90 mm Hg Last administered on 12/10/18 10:08; Admin Dose 100 MLS/HR; Start 12/08/18 at 09:30 Sodium Chloride (NS) -To prime the dialy... DIRECTED FOR HD PRN IV SBP less than 90 mm Hg; Start 12/08/18 at 09:30 Mannitol 62.5 ml @ 0 mls/hr WITH DIALYSIS PRN IV WITH DIALYSIS Last administered on 12/08/18 22:03; Admin Dose 60 MLS/HR; Start 12/08/18 at 21:00 Fluconazole (Diflucan) 200 mg DAILY NGT Last administered on 12/10/18 08:48; Admin Dose 200 MG; Start 12/10/18 at 09:00 NAYANA GARCIA Dec 10, 2018 10:41
--- NOTE | 2018-12-10 10:49 | CONS ---
Date/Time of Note Date/Time of Note DATE: 12/10/18 TIME: 10:47 Consult Date/Type/Reason Admit Date/Time Nov 23, 2018 at 22:01 Initial Consult Date 11/25/18 Type of Consultation: Pulm/CCM Requesting Provider: NAYANA GARCIA Subjective More alert, opens eyes on vent. Having HD Objective Vital Signs Date Temp Pulse Resp B/P (MAP) Pulse Ox O2 O2 Flow FiO2 Time Delivery Rate 12/10/18 80 10:40 12/10/18 16 106/53 95 Mechanical 09:30 (70) Ventilator 12/10/18 40 05:45 12/10/18 98.4 04:00 Intake and Output 12/09/18 12/09/18 12/10/18 1515:00 23:00 07:00 IntakeIntake Total 804.98 ml 776.76 ml 693.16 ml OutputOutput Total 30 ml 2025 ml 25 ml BalanceBalance 774.98 ml -1248.24 ml 668.16 ml Exam GENERAL: Elderly appearing gentleman orally intubated on mechanical ventilation VITAL SIGNS: per chart NECK: Supple. No JVD or lymphadenopathy. CARDIAC EXAM: S1, S2. No added sounds or murmurs. CHEST: Diminished air entry bilaterally ABDOMEN: Soft, nontender. No guarding or rebound. EXTREMITIES: No cyanosis, clubbing or edema. NEUROLOGIC: Generalized weakness. No focal deficits. Results/Medications Result Diagram: 12/10/18 0436 12/10/18 0434 Results 24 hrs Laboratory Tests Test 12/09/18 11:34 12/09/18 17:08 12/09/18 21:52 12/10/18 01:36 Bedside Glucose 103 121 108 117 Test 12/10/18 04:34 12/10/18 04:36 12/10/18 04:50 12/10/18 05:19 Sodium Level 135 Potassium Level 4.1 Chloride Level 97 Carbon Dioxide Level 31 Anion Gap 7 Blood Urea Nitrogen 45 #H Creatinine 3.41 H Est Glomerular Filtrat Rate mL/min Glucose Level 112 Calcium Level 8.5 White Blood Count 6.2 Red Blood Count 3.33 L Hemoglobin 7.5 L Hematocrit 28.3 L Mean Corpuscular 85.0 Volume Mean Corpuscular 22.5 L Hemoglobin Mean Corpuscular 26.5 L Hemoglobin Concent Red Cell 29.4 H Distribution Width Platelet Count 211 Mean Platelet Volume Immature 0.700 H Granulocytes % Neutrophils % 66.7 Lymphocytes % 17.9 Monocytes % 9.6 Eosinophils % 4.6 Basophils % 0.5 Nucleated Red Blood 0.0 Cells % Immature 0.040 H Granulocytes # Neutrophils # 4.1 Lymphocytes # 1.1 Monocytes # 0.6 Eosinophils # 0.3 Basophils # 0.0 Nucleated Red Blood 0.0 Cells # Phosphorus Level 3.0 Magnesium Level 1.9 Bedside Glucose 110 Test 12/10/18 08:51 Bedside Glucose 108 Medications Current Medications Acetaminophen (Tylenol Liquid) 650 mg Q6H PRN PO PAIN LEVEL 1-3 OR FEVER Last administered on 12/02/18 02:31; Admin Dose 650 MG; Start 11/23/18 at 22:30 Acetaminophen (Tylenol Supp) 650 mg Q4H PRN [place] PAIN LEVEL 1-3 OR FEVER Last administered on 12/02/18 21:21; Admin Dose 650 MG; Start 11/23/18 at 22:30 Atorvastatin Calcium (Lipitor) 20 mg HS PO Last administered on 12/09/18 21:52; Admin Dose 20 MG; Start 11/24/18 at 21:00 Albuterol/ Ipratropium (Duoneb) 3 ml Q4H RESP THERAPY PRN HHN SHORTNESS OF BREATH; Start 11/24/18 at 09:00 Aripiprazole (Abilify) 5 mg DAILY PO Last administered on 12/10/18 08:48; Admin Dose 5 MG; Start 11/24/18 at 09:30 Digoxin (Digoxin) 0.25 mg DAILY@1300 PO Last administered on 11/26/18 13:41; Admin Dose 0.25 MG; Start 11/24/18 at 13:00; Status Hold Escitalopram Oxalate (Lexapro) 20 mg DAILY PO Last administered on 12/10/18 08:48; Admin Dose 20 MG; Start 11/24/18 at 09:30 Loratadine (Claritin) 10 mg DAILY PO Last administered on 12/09/18 08:36; Admin Dose 10 MG; Start 11/24/18 at 10:00 Multivitamins Therapeutic (Theragran) 1 tab DAILY PO Last administered on 12/10/18 08:48; Admin Dose 1 TAB; Start 11/24/18 at 09:30 Potassium Chloride (Micro-K) 8 meq DAILY PO Last administered on 11/24/18at 10:12; Admin Dose 8 MEQ; Start 11/24/18 at 10:00; Status Hold Tamsulosin HCl (Flomax) 0.4 mg HS PO Last administered on 12/09/18at 21:52; Admin Dose 0.4 MG; Start 11/24/18 at 21:00 Calcium/Vitamin D (Oyster Shell/ Vit-D (500/200)) 1 tab DAILY PO Last adminis tered on 12/10/18at 08:48; Admin Dose 1 TAB; Start 11/24/18 at 09:30 Metoprolol Tartrate (Lopressor) 5 mg Q4H PRN IV HR>110 Hold SBP<100; Start 11/24/18 at 11:00 Diltiazem HCl (Cardizem Sr) 120 mg DAILY PO ; Start 11/25/18 at 14:00; Status Hold IV Flush (NS 10 ml) 10 ml PRN PRN IV IV PROTOCOL; Start 11/25/18 at 16:00 Hydralazine HCl (Apresoline) 25 mg Q8 PO Last administered on 12/09/18at 13:13; Admin Dose 25 MG; Start 11/26/18 at 22:00 Pantoprazole (Protonix Iv) 40 mg DAILY@06 IV Last administered on 12/10/18at 05:18; Admin Dose 40 MG; Start 11/29/18 at 06:00 Diagnostic Test (Pha) (Accu-Chek) 1 ea 02 XX Last administered on 12/10/18at 01:44; Admin Dose 1 EA; Start 12/01/18 at 02:00 Insulin Aspart (Novolog Insulin Pen) (Adult SC Insulin - Mild Algorithm)... Q4 SC Last administered on 12/08/18at 08:46; Admin Dose 1 UNIT; Start 11/30/18 at 09:00 Miscellaneous Information 1 ea NOTE XX ; Start 11/30/18 at 08:00 Glucose (Glutose) 15 gm Q15M PRN PO DECREASED GLUCOSE; Start 11/30/18 at 08:00 Glucose (Glutose) 22.5 gm Q15M PRN PO DECREASED GLUCOSE; Start 11/30/18 at 08:00 Dextrose (D50w Syringe) 25 ml Q15M PRN IV DECREASED GLUCOSE; Start 11/30/18 at 08:00 Dextrose (D50w Syringe) 50 ml Q15M PRN IV DECREASED GLUCOSE; Start 11/30/18 at 08:00 Glucagon (Glucagen) 1 mg Q15M PRN IM DECREASED GLUCOSE; Start 11/30/18 at 08:00 Glucose (Glutose) 15 gm Q15M PRN BUCCAL DECREASED GLUCOSE; Start 11/30/18 at 08:00 Midazolam HCl 50 ml @ 1 mls/hr TITRATE IV Last administered on 12/03/18at 03:19; Admin Dose 4 MLS/HR; Start 12/02/18 at 07:00 Norepinephrine 16 mg/Dextrose 500 ml @ 1.88 mls/hr TITRATE IV Last administered on 12/09/18at 20:04; Admin Dose 1.88 MLS/HR; Start 12/02/18 at 09:30 Fentanyl 100 ml @ 2.5 mls/hr TITRATE IV Last administered on 12/10/18at 00:09; Admin Dose 10 MLS/HR; Start 12/02/18 at 10:30 Acetaminophen (Tylenol Tab) 650 mg Q4H PRN PO mild pain Last administered on 12/05/18at 01:13; Admin Dose 650 MG; Start 12/02/18 at 12:00 Morphine Sulfate (morphine) 2 mg Q2H PRN IV moderate to severe pain; Start 12/02/18 at 12:00 Al Hydrox/Mg Hydrox/Simethicone (Mag-Al Plus) 30 ml Q4H PRN PO GASTROINTESTINAL UPSET; Start 12/02/18 at 12:00 Ondansetron HCl (Zofran Inj) 4 mg Q4H PRN IV NAUSEA AND/OR VOMITING Last administered on 12/07/18at 23:27; Admin Dose 4 MG; Start 12/02/18 at 12:00 Collagenase (Santyl) 1 applic DAILY TOP Last administered on 12/10/18at 08:48; Admin Dose 1 APPLIC; Start 12/03/18 at 14:00 Aspirin (Aspirin) 81 mg DAILY NGT Last administered on 12/10/18at 08:48; Admin Dose 81 MG; Start 12/06/18 at 09:00 Heparin Sodium (Porcine) (Heparin (5000 Units/1ml)) 5,000 unit BID SC Last administered on 12/09/18 21:55; Admin Dose 5,000 UNIT; Start 12/06/18 at 21:00 Heparin Sodium (Porcine) (Heparin (1000 Units/ml)) 4,000 unit AFTER DIALYSIS CATHETER Last administered on 12/09/18at 18:06; Admin Dose 4,000 UNIT; Start 12/08/18 at 09:30 Albumin Human 100 ml @ 100 mls/hr WITH DIALYSIS PRN IV SBP less than 90 mm Hg Last administered on 12/10/18 10:08; Admin Dose 100 MLS/HR; Start 12/08/18 at 09:30 Sodium Chloride (NS) -To prime the dialy... DIRECTED FOR HD PRN IV SBP less than 90 mm Hg; Start 12/08/18 at 09:30 Mannitol 62.5 ml @ 0 mls/hr WITH DIALYSIS PRN IV WITH DIALYSIS Last administered on 12/08/18at 22:03; Admin Dose 60 MLS/HR; Start 12/08/18 at 21:00 Fluconazole (Diflucan) 200 mg DAILY NGT Last administered on 12/10/18at 08:48; Admin Dose 200 MG; Start 12/10/18 at 09:00 Assessment/Plan Chief Complaint/Hosp Course IMP: 1. Acute hypoxemic/hypercapnic respiratory failure--most likely due to volume overload +/- pneumonia. Right pleural effusion. Status post thoracentesis. 2. Sigmoid mass, presumed colon cancer with recent severe anemia. Status post stent placement 3. Non-ST elevation myocardial infarction. Status post cardiac cath with no target lesions identified. 4. Atrial fibrillation with rapid ventricular response, now rate controlled 5. Worsening renal failure likely requiring hemodialysis. Likely contrast nephropathy 6. Anemia RECS: 1. Continue vent. weaning when hemodynamically stable, cpap trial after HD today. 2. Continue cardiac recommendations 3. Continue renal recs Duong catheter placement and hemodialysis per nephrology 4. GI recommendations, Critical care time 40 minutes Long discussion with son at bedside. JANNET BERG MD, [facility] Dec 10, 2018 10:49
--- NOTE | 2018-12-10 12:00 | CONS ---
Date/Time of Note Date/Time of Note DATE: 12/10/18 TIME: 12:00 Assessment/Plan Assessment/Plan Assessment/Plan 1. Oliguric Acute on chronic renal failure due to Sepsis and Hemodynamics + obstructive uropathy - Worsening causing uremic encephalopathy 2. atrial fibrillation with RVR- now rate controlled 3. acute hypoxemic and hypercapnic resp failure due to PNA - failed BIPAP; intubated 4. Sepsis 5. Positive troponin 6. BPH on flomax 7. Colon CA Plan: BUN/Cr continues to rise - started on HD on 12/08/18- s/p HD x 3 days in a row, today 1.6 L removed, Plan for another session of HD on Thursday and then after he will be on Thursday, thursday, Thursday schedule. S/p LHC which showed moderate Nonobstructive CAD - medical management SP Colonoscopy with stent placement by GI Full code d/w pt son at bedside will follow up Result Diagram: 12/10/18 0436 12/10/18 0434 Results 24hrs Laboratory Tests Test 12/09/18 17:08 12/09/18 21:52 12/10/18 01:36 12/10/18 04:34 Bedside Glucose 121 108 117 Sodium Level 135 Potassium Level 4.1 Chloride Level 97 Carbon Dioxide Level 31 Anion Gap 7 Blood Urea Nitrogen 45 #H Creatinine 3.41 H Est Glomerular Filtrat Rate mL/min Glucose Level 112 Calcium Level 8.5 Test 12/10/18 04:36 12/10/18 04:50 12/10/18 05:19 12/10/18 08:51 White Blood Count 6.2 Red Blood Count 3.33 L Hemoglobin 7.5 L Hematocrit 28.3 L Mean Corpuscular 85.0 Volume Mean Corpuscular 22.5 L Hemoglobin Mean Corpuscular 26.5 L Hemoglobin Concent Red Cell 29.4 H Distribution Width Platelet Count 211 Mean Platelet Volume Immature 0.700 H Granulocytes % Neutrophils % 66.7 Lymphocytes % 17.9 Monocytes % 9.6 Eosinophils % 4.6 Basophils % 0.5 Nucleated Red Blood 0.0 Cells % Immature 0.040 H Granulocytes # Neutrophils # 4.1 Lymphocytes # 1.1 Monocytes # 0.6 Eosinophils # 0.3 Basophils # 0.0 Nucleated Red Blood 0.0 Cells # Phosphorus Level 3.0 Magnesium Level 1.9 Bedside Glucose 110 108 Consultation Date/Type/Reason Admit Date/Time Nov 23, 2018 at 22:01 Initial Consult Date 11/24/18 Type of Consult NEPHROLOGY Requesting Provider: NAYANA GARCIA 24 HR Interval Summary Free Text/Dictation plan for HD today, remains intubated, on ventilator Exam/Review of Systems Vital Signs Vitals Vital Signs Date Temp Pulse Resp B/P (MAP) Pulse Ox O2 O2 Flow FiO2 Time Delivery Rate 12/10/18 73 17 93 40 11:33 12/10/18 106/53 Mechanical 09:30 (70) Ventilator 12/10/18 98.4 04:00 Intake and Output 12/09/18 12/09/18 12/10/18 1515:00 23:00 07:00 IntakeIntake Total 804.98 ml 776.76 ml 693.16 ml OutputOutput Total 30 ml 2025 ml 25 ml BalanceBalance 774.98 ml -1248.24 ml 668.16 ml Exam Constitutional: moderate distress, intubated on ventilator, ET tube in place Respiratory: Bilateral coarse BS+, basilar crackles Cardiovascular: regular rate and rhythm, nl pulses Gastrointestinal: soft, non-tender Musculoskeletal: 1-2+ pitting edema , + hess catheter Neurological: Uncooperative for neuro exam Medications Medications Current Medications Acetaminophen (Tylenol Liquid) 650 mg Q6H PRN PO PAIN LEVEL 1-3 OR FEVER Last administered on 12/02/18at 02:31; Admin Dose 650 MG; Start 11/23/18 at 22:30 Acetaminophen (Tylenol Supp) 650 mg Q4H PRN [place] PAIN LEVEL 1-3 OR FEVER Last administered on 12/02/18at 21:21; Admin Dose 650 MG; Start 11/23/18 at 22:30 Atorvastatin Calcium (Lipitor) 20 mg HS PO Last administered on 12/09/18at 21:52; Admin Dose 20 MG; Start 11/24/18 at 21:00 Albuterol/ Ipratropium (Duoneb) 3 ml Q4H RESP THERAPY PRN HHN SHORTNESS OF BREATH; Start 11/24/18 at 09:00 Aripiprazole (Abilify) 5 mg DAILY PO Last administered on 12/10/18at 08:48; Admin Dose 5 MG; Start 11/24/18 at 09:30 Digoxin (Digoxin) 0.25 mg DAILY@1300 PO Last administered on 11/26/18 13:41; Admin Dose 0.25 MG; Start 11/24/18 at 13:00; Status Hold Escitalopram Oxalate (Lexapro) 20 mg DAILY PO Last administered on 12/10/18 08:48; Admin Dose 20 MG; Start 11/24/18 at 09:30 Loratadine (Claritin) 10 mg DAILY PO Last administered on 12/09/18 08:36; Adm in Dose 10 MG; Start 11/24/18 at 10:00 Multivitamins Therapeutic (Theragran) 1 tab DAILY PO Last administered on 12/10/18 08:48; Admin Dose 1 TAB; Start 11/24/18 at 09:30 Potassium Chloride (Micro-K) 8 meq DAILY PO Last administered on 11/24/18at 10:12; Admin Dose 8 MEQ; Start 11/24/18 at 10:00; Status Hold Tamsulosin HCl (Flomax) 0.4 mg HS PO Last administered on 12/09/18at 21:52; Admin Dose 0.4 MG; Start 11/24/18 at 21:00 Calcium/Vitamin D (Oyster Shell/ Vit-D (500/200)) 1 tab DAILY PO Last adm inistered on 12/10/18 08:48; Admin Dose 1 TAB; Start 11/24/18 at 09:30 Metoprolol Tartrate (Lopressor) 5 mg Q4H PRN IV HR>110 Hold SBP<100; Start 11/24/18 at 11:00 Diltiazem HCl (Cardizem Sr) 120 mg DAILY PO ; Start 11/25/18 at 14:00; Status Hold IV Flush (NS 10 ml) 10 ml PRN PRN IV IV PROTOCOL; Start 11/25/18 at 16:00 Hydralazine HCl (Apresoline) 25 mg Q8 PO Last administered on 12/09/18 13:13; Admin Dose 25 MG; Start 11/26/18 at 22:00 Pantoprazole (Protonix Iv) 40 mg DAILY@06 IV Last administered on 12/10/18 05:18; Admin Dose 40 MG; Start 11/29/18 at 06:00 Diagnostic Test (Pha) (Accu-Chek) 1 ea 02 XX Last administered on 12/10/18at 01:44; Admin Dose 1 EA; Start 12/01/18 at 02:00 Insulin Aspart (Novolog Insulin Pen) (Adult SC Insulin - Mild Algorithm)... Q4 SC Last administered on 12/08/18at 08:46; Admin Dose 1 UNIT; Start 11/30/18 at 09:00 Miscellaneous Information 1 ea NOTE XX ; Start 11/30/18 at 08:00 Glucose (Glutose) 15 gm Q15M PRN PO DECREASED GLUCOSE; Start 11/30/18 at 08:00 Glucose (Glutose) 22.5 gm Q15M PRN PO DECREASED GLUCOSE; Start 11/30/18 at 08:00 Dextrose (D50w Syringe) 25 ml Q15M PRN IV DECREASED GLUCOSE; Start 11/30/18 at 08:00 Dextrose (D50w Syringe) 50 ml Q15M PRN IV DECREASED GLUCOSE; Start 11/30/18 at 08:00 Glucagon (Glucagen) 1 mg Q15M PRN IM DECREASED GLUCOSE; Start 11/30/18 at 08:00 Glucose (Glutose) 15 gm Q15M PRN BUCCAL DECREASED GLUCOSE; Start 11/30/18 at 08:00 Midazolam HCl 50 ml @ 1 mls/hr TITRATE IV Last administered on 12/03/18at 03:19; Admin Dose 4 MLS/HR; Start 12/02/18 at 07:00 Norepinephrine 16 mg/Dextrose 500 ml @ 1.88 mls/hr TITRATE IV Last administered on 12/09/18at 20:04; Admin Dose 1.88 MLS/HR; Start 12/02/18 at 09:30 Fentanyl 100 ml @ 2.5 mls/hr TITRATE IV Last administered on 12/10/18at 11:30; Admin Dose 10 MLS/HR; Start 12/02/18 at 10:30 Acetaminophen (Tylenol Tab) 650 mg Q4H PRN PO mild pain Last administered on 12/05/18at 01:13; Admin Dose 650 MG; Start 12/02/18 at 12:00 Morphine Sulfate (morphine) 2 mg Q2H PRN IV moderate to severe pain; Start 12/02/18 at 12:00 Al Hydrox/Mg Hydrox/Simethicone (Mag-Al Plus) 30 ml Q4H PRN PO GASTROINTESTINAL UPSET; Start 12/02/18 at 12:00 Ondansetron HCl (Zofran Inj) 4 mg Q4H PRN IV NAUSEA AND/OR VOMITING Last administered on 12/07/18 23:27; Admin Dose 4 MG; Start 12/02/18 at 12:00 Collagenase (Santyl) 1 applic DAILY TOP Last administered on 12/10/18 08:48; Admin Dose 1 APPLIC; Start 12/03/18 at 14:00 Aspirin (Aspirin) 81 mg DAILY NGT Last administered on 12/10/18 08:48; Admin Dose 81 MG; Start 12/06/18 at 09:00 Heparin Sodium (Porcine) (Heparin (1000 Units/ml)) 4,000 unit AFTER DIALYSIS CATHETER Last administered on 12/09/18 18:06; Admin Dose 4,000 UNIT; Start 12/08/18 at 09:30 Albumin Human 100 ml @ 100 mls/hr WITH DIALYSIS PRN IV SBP less than 90 mm Hg Last administered on 12/10/18 10:08; Admin Dose 100 MLS/HR; Start 12/08/18 at 09:30 Sodium Chloride (NS) -To prime the dialy... DIRECTED FOR HD PRN IV SBP less than 90 mm Hg; Start 12/08/18 at 09:30 Mannitol 62.5 ml @ 0 mls/hr WITH DIALYSIS PRN IV WITH DIALYSIS Last administered on 12/08/18 22:03; Admin Dose 60 MLS/HR; Start 12/08/18 at 21:00 Fluconazole (Diflucan) 200 mg DAILY NGT Last administered on 12/10/18 08:48; Admin Dose 200 MG; Start 12/10/18 at 09:00 RENAN HERNANDEZ MD Dec 10, 2018 12:00
--- NOTE | 2018-12-10 12:29 | CONS ---
Date/Time of Note Date/Time of Note DATE: 12/10/18 TIME: 12:27 Assessment/Plan Assessment/Plan Hospital Course unfortunate 78 yo with what appears to be locally advanced colon ca #nearly obstructive colon ca -he has very poor performance status and multiple co-morbidities/multiple medical complications -he is intubated -surgery has seen pt and he is not an appropriate resection candidate, s/p stent -I have discussed with son that his father's health is very tenuous and he is not a candidate for chemo now, unclear if he will ever be improved enough for oncologic tx. unfortunately patient is declining, he is intubated, starting dialysis. at this point certainly not a candidate for chemo #anemia due to colon ca hgb 7.5 today transfuse to keep hgb >7 #CAD s/p cardiac cath, no critical obstruction #oliguric/renal failure on dialysis we will follow periodically, please call with questions Result Diagram: 12/10/18 0436 12/10/18 0434 Results 24hrs Laboratory Tests Test 12/09/18 17:08 12/09/18 21:52 12/10/18 01:36 12/10/18 04:34 Bedside Glucose 121 108 117 Sodium Level 135 Potassium Level 4.1 Chloride Level 97 Carbon Dioxide Level 31 Anion Gap 7 Blood Urea Nitrogen 45 #H Creatinine 3.41 H Est Glomerular Filtrat Rate mL/min Glucose Level 112 Calcium Level 8.5 Test 12/10/18 04:36 12/10/18 04:50 12/10/18 05:19 12/10/18 08:51 White Blood Count 6.2 Red Blood Count 3.33 L Hemoglobin 7.5 L Hematocrit 28.3 L Mean Corpuscular 85.0 Volume Mean Corpuscular 22.5 L Hemoglobin Mean Corpuscular 26.5 L Hemoglobin Concent Red Cell 29.4 H Distribution Width Platelet Count 211 Mean Platelet Volume Immature 0.700 H Granulocytes % Neutrophils % 66.7 Lymphocytes % 17.9 Monocytes % 9.6 Eosinophils % 4.6 Basophils % 0.5 Nucleated Red Blood 0.0 Cells % Immature 0.040 H Granulocytes # Neutrophils # 4.1 Lymphocytes # 1.1 Monocytes # 0.6 Eosinophils # 0.3 Basophils # 0.0 Nucleated Red Blood 0.0 Cells # Phosphorus Level 3.0 Magnesium Level 1.9 Bedside Glucose 110 108 Consultation Date/Type/Reason Admit Date/Time Nov 23, 2018 at 22:01 Initial Consult Date 11/25/18 Requesting Provider: NAYANA GARCIA 24 HR Interval Summary Free Text/Dictation still intubated getting HD nursing staff reported [id number] Subjective hx not possible: pt critical status Exam/Review of Systems Vital Signs Vitals Vital Signs Date Temp Pulse Resp B/P (MAP) Pulse Ox O2 O2 Flow FiO2 Time Delivery Rate 12/10/18 65 12:10 12/10/18 16 103/56 95 Mechanical 12:00 (72) Ventilator 12/10/18 40 11:33 12/10/18 98.2 07:30 Intake and Output 12/09/18 12/09/18 12/10/18 1515:00 23:00 07:00 IntakeIntake Total 804.98 ml 776.76 ml 693.16 ml OutputOutput Total 30 ml 2025 ml 30 ml BalanceBalance 774.98 ml -1248.24 ml 663.16 ml Exam Constitutional: frail ENMT: intubated Medications Medications Current Medications Acetaminophen (Tylenol Liquid) 650 mg Q6H PRN PO PAIN LEVEL 1-3 OR FEVER Last administered on 12/02/18at 02:31; Admin Dose 650 MG; Start 11/23/18 at 22:30 Acetaminophen (Tylenol Supp) 650 mg Q4H PRN [place] PAIN LEVEL 1-3 OR FEVER Last administered on 12/02/18at 21:21; Admin Dose 650 MG; Start 11/23/18 at 22:30 Atorvastatin Calcium (Lipitor) 20 mg HS PO Last administered on 12/09/18at 21:52; Admin Dose 20 MG; Start 11/24/18 at 21:00 Albuterol/ Ipratropium (Duoneb) 3 ml Q4H RESP THERAPY PRN HHN SHORTNESS OF BREATH; Start 11/24/18 at 09:00 Aripiprazole (Abilify) 5 mg DAILY PO Last administered on 12/10/18at 08:48; Admin Dose 5 MG; Start 11/24/18 at 09:30 Digoxin (Digoxin) 0.25 mg DAILY@1300 PO Last administered on 11/26/18at 13:41; Admin Dose 0.25 MG; Start 11/24/18 at 13:00; Status Hold Escitalopram Oxalate (Lexapro) 20 mg DAILY PO Last administered on 12/10/18 08:48; Admin Dose 20 MG; Start 11/24/18 at 09:30 Loratadine (Claritin) 10 mg DAILY PO Last administered on 12/09/18 08:36; Admin Dose 10 MG; Start 11/24/18 at 10:00 Multivitamins Therapeutic (Theragran) 1 tab DAILY PO Last administered on 12/10/18 08:48; Admin Dose 1 TAB; Start 11/24/18 at 09:30 Potassium Chloride (Micro-K) 8 meq DAILY PO Last administered on 11/24/18at 10:12; Admin Dose 8 MEQ; Start 11/24/18 at 10:00; Status Hold Tamsulosin HCl (Flomax) 0.4 mg HS PO Last administered on 12/09/18 21:52; Admin Dose 0.4 MG; Start 11/24/18 at 21:00 Calcium/Vitamin D (Oyster Shell/ Vit-D (500/200)) 1 tab DAILY PO Last administered on 12/10/18 08:48; Admin Dose 1 TAB; Start 11/24/18 at 09:30 Metoprolol Tartrate (Lopressor) 5 mg Q4H PRN IV HR>110 Hold SBP<100; Start 11/24/18 at 11:00 Diltiazem HCl (Cardizem Sr) 120 mg DAILY PO ; Start 11/25/18 at 14:00; Status Hold IV Flush (NS 10 ml) 10 ml PRN PRN IV IV PROTOCOL; Start 11/25/18 at 16:00 Hydralazine HCl (Apresoline) 25 mg Q8 PO Last administered on 12/09/18at 13:13; Admin Dose 25 MG; Start 11/26/18 at 22:00 Pantoprazole (Protonix Iv) 40 mg DAILY@06 IV Last administered on 12/10/18 05:18; Admin Dose 40 MG; Start 11/29/18 at 06:00 Diagnostic Test (Pha) (Accu-Chek) 1 ea 02 XX Last administered on 12/10/18at 01:44; Admin Dose 1 EA; Start 12/01/18 at 02:00 Insulin Aspart (Novolog Insulin Pen) (Adult SC Insulin - Mild Algorithm)... Q4 SC Last administered on 12/08/18at 08:46; Admin Dose 1 UNIT; Start 11/30/18 at 09:00 Miscellaneous Information 1 ea NOTE XX ; Start 11/30/18 at 08:00 Glucose (Glutose) 15 gm Q15M PRN PO DECREASED GLUCOSE; Start 11/30/18 at 08:00 Glucose (Glutose) 22.5 gm Q15M PRN PO DECREASED GLUCOSE; Start 11/30/18 at 08:00 Dextrose (D50w Syringe) 25 ml Q15M PRN IV DECREASED GLUCOSE; Start 11/30/18 at 08:00 Dextrose (D50w Syringe) 50 ml Q15M PRN IV DECREASED GLUCOSE; Start 11/30/18 at 08:00 Glucagon (Glucagen) 1 mg Q15M PRN IM DECREASED GLUCOSE; Start 11/30/18 at 08:00 Glucose (Glutose) 15 gm Q15M PRN BUCCAL DECREASED GLUCOSE; Start 11/30/18 at 08:00 Midazolam HCl 50 ml @ 1 mls/hr TITRATE IV Last administered on 12/03/18at 03:19; Admin Dose 4 MLS/HR; Start 12/02/18 at 07:00 Norepinephrine 16 mg/Dextrose 500 ml @ 1.88 mls/hr TITRATE IV Last administered on 12/09/18at 20:04; Admin Dose 1.88 MLS/HR; Start 12/02/18 at 09:30 Fentanyl 100 ml @ 2.5 mls/hr TITRATE IV Last administered on 12/10/18at 11:30; Admin Dose 10 MLS/HR; Start 12/02/18 at 10:30 Acetaminophen (Tylenol Tab) 650 mg Q4H PRN PO mild pain Last administered on 12/05/18at 01:13; Admin Dose 650 MG; Start 12/02/18 at 12:00 Morphine Sulfate (morphine) 2 mg Q2H PRN IV moderate to severe pain; Start 12/02/18 at 12:00 Al Hydrox/Mg Hydrox/Simethicone (Mag-Al Plus) 30 ml Q4H PRN PO GASTROINTESTINAL UPSET; Start 12/02/18 at 12:00 Ondansetron HCl (Zofran Inj) 4 mg Q4H PRN IV NAUSEA AND/OR VOMITING Last administered on 12/07/18at 23:27; Admin Dose 4 MG; Start 12/02/18 at 12:00 Collagenase (Santyl) 1 applic DAILY TOP Last administered on 12/10/18 08:48; Admin Dose 1 APPLIC; Start 12/03/18 at 14:00 Aspirin (Aspirin) 81 mg DAILY NGT Last administered on 12/10/18 08:48; Admin Dose 81 MG; Start 12/06/18 at 09:00 Heparin Sodium (Porcine) (Heparin (1000 Units/ml)) 4,000 unit AFTER DIALYSIS CATHETER Last administered on 12/09/18 18:06; Admin Dose 4,000 UNIT; Start 12/08/18 at 09:30 Albumin Human 100 ml @ 100 mls/hr WITH DIALYSIS PRN IV SBP less than 90 mm Hg Last administered on 12/10/18 10:08; Admin Dose 100 MLS/HR; Start 12/08/18 at 09:30 Sodium Chloride (NS) -To prime the dialy... DIRECTED FOR HD PRN IV SBP less than 90 mm Hg; Start 12/08/18 at 09:30 Mannitol 62.5 ml @ 0 mls/hr WITH DIALYSIS PRN IV WITH DIALYSIS Last administered on 12/08/18 22:03; Admin Dose 60 MLS/HR; Start 12/08/18 at 21:00 Fluconazole (Diflucan) 200 mg DAILY NGT Last administered on 12/10/18 08:48; Admin Dose 200 MG; Start 12/10/18 at 09:00 TEO LOZOYA Dec 10, 2018 12:29
[2018-12-10] MEDS: HEPARIN 1000 UNITS/ML 10 ML INJ CATHETER SCH (12:58)
--- NOTE | 2018-12-10 13:19 | CONS ---
Date/Time of Note Date/Time of Note DATE: 12/10/18 TIME: 13:13 Assessment/Plan Assessment/Plan Hospital Course IMPRESSION: 1. Non-ST elevation myocardial infarction, currently down trending cardiac enzymes likely a type 2 demand infarct in the setting of fevers, hypercarbic respiratory failure.-downtrended cardiac enzymes. NO cp. Echo this admit 11/24 with NL EF 55%. Now s/p LHC 12/02 with no sig major epicardial obstructive cad. LVEDP 21 2. Abnormal electrocardiogram. 3. Right bundle branch block. 4. Colonic mass s/p stent placement 5. Anemia. 6. Renal failure-worsening 7. Leukocytosis. 8. Coagulopathy. 9. Sepsis. 10. Atrial fibrillation-now in SR 11.CHF-diastolic acute on chronic 12. Resp failure s/p intubation 14. Hypotension on levophed 15. PTX Recc: -ICU -Continue asa/statin -Now back on levo after HD. Follow BP clsoely and wean back off levo as tolerated -Continue broad spectrum abx's and f/u cx data -wean vent as possible -HD for volume removal as tolerated -surgery when stable? Result Diagram: 12/10/18 0436 12/10/18 0434 Results 24hrs Laboratory Tests Test 12/09/18 17:08 12/09/18 21:52 12/10/18 01:36 12/10/18 04:34 Bedside Glucose 121 108 117 Sodium Level 135 Potassium Level 4.1 Chloride Level 97 Carbon Dioxide Level 31 Anion Gap 7 Blood Urea Nitrogen 45 #H Creatinine 3.41 H Est Glomerular Filtrat Rate mL/min Glucose Level 112 Calcium Level 8.5 Test 12/10/18 04:36 12/10/18 04:50 12/10/18 05:19 12/10/18 08:51 White Blood Count 6.2 Red Blood Count 3.33 L Hemoglobin 7.5 L Hematocrit 28.3 L Mean Corpuscular 85.0 Volume Mean Corpuscular 22.5 L Hemoglobin Mean Corpuscular 26.5 L Hemoglobin Concent Red Cell 29.4 H Distribution Width Platelet Count 211 Mean Platelet Volume Immature 0.700 H Granulocytes % Neutrophils % 66.7 Lymphocytes % 17.9 Monocytes % 9.6 Eosinophils % 4.6 Basophils % 0.5 Nucleated Red Blood 0.0 Cells % Immature 0.040 H Granulocytes # Neutrophils # 4.1 Lymphocytes # 1.1 Monocytes # 0.6 Eosinophils # 0.3 Basophils # 0.0 Nucleated Red Blood 0.0 Cells # Phosphorus Level 3.0 Magnesium Level 1.9 Bedside Glucose 110 108 Test 12/10/18 12:32 Bedside Glucose 112 Consultation Date/Type/Reason Admit Date/Time Nov 23, 2018 at 22:01 Initial Consult Date 11/24/18 Type of Consult cardiology Reason for Consultation Nstemi Requesting Provider: NAYANA GARCIA Exam/Review of Systems Vital Signs Vitals Vital Signs Date Temp Pulse Resp B/P (MAP) Pulse Ox O2 O2 Flow FiO2 Time Delivery Rate 12/10/18 74 12:40 12/10/18 16 103/56 95 Mechanical 12:00 (72) Ventilator 12/10/18 40 11:33 12/10/18 98.2 07:30 Intake and Output 12/09/18 12/09/18 12/10/18 1515:00 23:00 07:00 IntakeIntake Total 804.98 ml 776.76 ml 693.16 ml OutputOutput Total 30 ml 2025 ml 30 ml BalanceBalance 774.98 ml -1248.24 ml 663.16 ml Exam Review of Systems: CONSTITUTIONAL: No fevers, chills. PULMONARY: intubated CARDIOVASCULAR: No chest pain/palpitations GASTROINTESTINAL: No nausea/vomiting. GENITOURINARY: No hematuria/dysuria. MUSCULOSKELETAL: No myagias/arthalgias. PSYCHIATRIC: The patient denies depression. NEUROLOGIC: No weakness Constitutional: other (sedated) Psych: no complaints Head: normocephalic ENMT: mucosa pink and moist Neck: supple, jvd (9 cm water) Respiratory: diminished breath sounds (at bases/B) Cardiovascular: regular rate and rhythm Gastrointestinal: soft, non-tender Musculoskeletal: muscle tone (n ormal) Extremities: edema (none) Neurological: other (No focal defiicts) Medications Medications Current Medications Acetaminophen (Tylenol Liquid) 650 mg Q6H PRN PO PAIN LEVEL 1-3 OR FEVER Last administered on 12/02/18at 02:31; Admin Dose 650 MG; Start 11/23/18 at 22:30 Acetaminophen (Tylenol Supp) 650 mg Q4H PRN AL PAIN LEVEL 1-3 OR FEVER Last administered on 12/02/18 21:21; Admin Dose 650 MG; Start 11/23/18 at 22:30 Atorvastatin Calcium (Lipitor) 20 mg HS PO Last administered on 12/09/18 21:52; Admin Dose 20 MG; Start 11/24/18 at 21:00 Albuterol/ Ipratropium (Duoneb) 3 ml Q4H RESP THERAPY PRN HHN SHORTNESS OF BREATH; Start 11/24/18 at 09:00 Aripiprazole (Abilify) 5 mg DAILY PO Last administered on 12/10/18 08:48; Admin Dose 5 MG; Start 11/24/18 at 09:30 Digoxin (Digoxin) 0.25 mg DAILY@1300 PO Last administered on 11/26/18 13:41; Admin Dose 0.25 MG; Start 11/24/18 at 13:00; Status Hold Escitalopram Oxalate (Lexapro) 20 mg DAILY PO Last administered on 12/10/18 08:48; Admin Dose 20 MG; Start 11/24/18 at 09:30 Loratadine (Claritin) 10 mg DAILY PO Last administered on 12/09/18 08:36; Admin Dose 10 MG; Start 11/24/18 at 10:00 Multivitamins Therapeutic (Theragran) 1 tab DAILY PO Last administered on 12/10/18 08:48; Admin Dose 1 TAB; Start 11/24/18 at 09:30 Potassium Chloride (Micro-K) 8 meq DAILY PO Last administered on 11/24/18 10:12; Admin Dose 8 MEQ; Start 11/24/18 at 10:00; Status Hold Tamsulosin HCl (Flomax) 0.4 mg HS PO Last administered on 12/09/18 21:52; Admin Dose 0.4 MG; Start 11/24/18 at 21:00 Calcium/Vitamin D (Oyster Shell/ Vit-D (500/200)) 1 tab DAILY PO Last administered on 12/10/18 08:48; Admin Dose 1 TAB; Start 11/24/18 at 09:30 Metoprolol Tartrate (Lopressor) 5 mg Q4H PRN IV HR>110 Hold SBP<100; Start 11/24/18 at 11:00 Diltiazem HCl (Cardizem Sr) 120 mg DAILY PO ; Start 11/25/18 at 14:00; Status Hold IV Flush (NS 10 ml) 10 ml PRN PRN IV IV PROTOCOL; Start 11/25/18 at 16:00 Hydralazine HCl (Apresoline) 25 mg Q8 PO Last administered on 12/09/18at 13:13; Admin Dose 25 MG; Start 11/26/18 at 22:00 Pantoprazole (Protonix Iv) 40 mg DAILY@06 IV Last administered on 12/10/18at 05:18; Admin Dose 40 MG; Start 11/29/18 at 06:00 Diagnostic Test (Pha) (Accu-Chek) 1 ea 02 XX Last administered on 12/10/18at 01:44; Admin Dose 1 EA; Start 12/01/18 at 02:00 Insulin Aspart (Novolog Insulin Pen) (Adult SC Insulin - Mild Algorithm)... Q4 SC Last administered on 12/08/18at 08:46; Admin Dose 1 UNIT; Start 11/30/18 at 09:00 Miscellaneous Information 1 ea NOTE XX ; Start 11/30/18 at 08:00 Glucose (Glutose) 15 gm Q15M PRN PO DECREASED GLUCOSE; Start 11/30/18 at 08:00 Glucose (Glutose) 22.5 gm Q15M PRN PO DECREASED GLUCOSE; Start 11/30/18 at 08:00 Dextrose (D50w Syringe) 25 ml Q15M PRN IV DECREASED GLUCOSE; Start 11/30/18 at 08:00 Dextrose (D50w Syringe) 50 ml Q15M PRN IV DECREASED GLUCOSE; Start 11/30/18 at 08:00 Glucagon (Glucagen) 1 mg Q15M PRN IM DECREASED GLUCOSE; Start 11/30/18 at 08:00 Glucose (Glutose) 15 gm Q15M PRN BUCCAL DECREASED GLUCOSE; Start 11/30/18 at 08:00 Midazolam HCl 50 ml @ 1 mls/hr TITRATE IV Last administered on 12/03/18at 03:19; Admin Dose 4 MLS/HR; Start 12/02/18 at 07:00 Norepinephrine 16 mg/Dextrose 500 ml @ 1.88 mls/hr TITRATE IV Last administered on 12/09/18at 20:04; Admin Dose 1.88 MLS/HR; Start 12/02/18 at 09:30 Fentanyl 100 ml @ 2.5 mls/hr TITRATE IV Last administered on 12/10/18 11:30; Admin Dose 10 MLS/HR; Start 12/02/18 at 10:30 Acetaminophen (Tylenol Tab) 650 mg Q4H PRN PO mild pain Last administered on 12/05/18 01:13; Admin Dose 650 MG; Start 12/02/18 at 12:00 Morphine Sulfate (morphine) 2 mg Q2H PRN IV moderate to severe pain; Start 12/02/18 at 12:00 Al Hydrox/Mg Hydrox/Simethicone (Mag-Al Plus) 30 ml Q4H PRN PO GASTROINTESTINAL UPSET; Start 12/02/18 at 12:00 Ondansetron HCl (Zofran Inj) 4 mg Q4H PRN IV NAUSEA AND/OR VOMITING Last administered on 12/07/18 23:27; Admin Dose 4 MG; Start 12/02/18 at 12:00 Collagenase (Santyl) 1 applic DAILY TOP Last administered on 12/10/18 08:48; Admin Dose 1 APPLIC; Start 12/03/18 at 14:00 Aspirin (Aspirin) 81 mg DAILY NGT Last administered on 12/10/18 08:48; Admin Dose 81 MG; Start 12/06/18 at 09:00 Heparin Sodium (Porcine) (Heparin (1000 Units/ml)) 4,000 unit AFTER DIALYSIS CATHETER Last administered on 12/10/18 12:58; Admin Dose 3,000 UNIT; Start 12/08/18 at 09:30 Albumin Human 100 ml @ 100 mls/hr WITH DIALYSIS PRN IV SBP less than 90 mm Hg Last administered on 12/10/18 10:08; Admin Dose 100 MLS/HR; Start 12/08/18 at 09:30 Sodium Chloride (NS) -To prime the dialy... DIRECTED FOR HD PRN IV SBP less than 90 mm Hg; Start 12/08/18 at 09:30 Mannitol 62.5 ml @ 0 mls/hr WITH DIALYSIS PRN IV WITH DIALYSIS Last administered on 12/08/18 22:03; Admin Dose 60 MLS/HR; Start 12/08/18 at 21:00 Fluconazole (Diflucan) 200 mg DAILY NGT Last administered on 12/10/18 08:48; Admin Dose 200 MG; Start 12/10/18 at 09:00 TWAN ESTEVEZ 18, 2019 13:19
--- NOTE | 2018-12-10 14:38 | NUR ---
called Sim for HD tomorrow with confirmation #[id number]
[2018-12-10] MEDS: LORATADINE 10 MG TAB PO SCH (16:20)
--- NOTE | 2018-12-10 18:48 | NUR ---
EOSS: tolerated HD today. C-trial lasted 1 hr, ABG result critical, resumed AC per MD. With moderate thick yellow secretions, suctioned as needed, continue VAP and aspiration precaution. Tube feeding was held due to high residual and rectal bleeding last night - Notified Dr. Fang no new order made, Heparin SC currently on hold until further order. No BM noted today. Anuric, hess care done. Wound care done. Updates given to the son.
[2018-12-10] MEDS: ATORVASTATIN 20 MG TAB PO SCH (21:26)
[2018-12-10] MEDS: TAMSULOSIN (SR) 0.4 MG CAP PO SCH (21:26)
[2018-12-11] VITALS (82 sets, daily range): BP systolic 87–151; BP diastolic 42–110; PULSE 61–126; RESP 14–28
[2018-12-11] MEDS: Insulin NOVOLOG SS MILD Algorithm (NPO/TPN/ENTERAL FEEDS) SC SCH ×6 (01:00→21:00)
[2018-12-11] MEDS: ACCU-CHEK XX SCH (02:00)
[2018-12-11] MEDS: PANTOPRAZOLE 40 MG INJ IV SCH (05:39)
[2018-12-11] MEDS: FENTAnyl (DRIP) 1000 mcg/100mL 100 ML IV SCH ×2 (05:42→19:59)
--- NOTE | 2018-12-11 06:55 | NUR ---
Shift Summary Pt. continues on Levophed for BP support, turned it off, but BP dropped below 90 and MAP below 65. Continues on Fentanyl 50mcgs. Patient moves quite a bit, throws his legs out of the bed frequently, he has to be readjusted in bed very frequently. Continues on Vent therapy, tolerating well. Continues on proper plan of care.
[2018-12-11] MEDS: ASPIRIN 325 MG TAB NGT SCH (09:00)
[2018-12-11] MEDS: COLLAGENASE 5 GM (UD JAR) TOP SCH (09:00)
[2018-12-11] MEDS: LORATADINE 10 MG TAB PO SCH (10:17)
[2018-12-11] MEDS: CALCIUM/VITAMIN D (500/200) TAB PO SCH (10:17)
[2018-12-11] MEDS: ESCITALOPRAM 10 MG TAB PO SCH (10:17)
[2018-12-11] MEDS: ARIPIPRAZOLE 5 MG TAB PO SCH (10:17)
[2018-12-11] MEDS: FLUCONAZOLE 200 MG TAB NGT SCH (10:17)
[2018-12-11] MEDS: BALSAM PERU/CASTOR OIL 60 GM TUBE TOP SCH ×2 (10:19→21:33)
[2018-12-11] MEDS: MULTIVITAMINS THERAPEUTIC TAB PO SCH (10:19)
--- NOTE | 2018-12-11 12:23 | PN ---
Date/Time of Note Date/Time of Note DATE: 12/11/18 TIME: 12:20 Assessment/Plan VTE Prophylaxis Risk score (from [facility])>0 risk: 12 SCD applied (from Ns): Yes Pharmacological prophylaxis: NA/contraindicated Pharm contraindication: bleeding Lines/Catheters IV [facility]ter [facility] (from [facility]): Duong HD Catheter Urinary Cath still in place: Yes Reason Cath still needed: urinary retention Assessment/Plan Hospital Course S: Patient still intubated, off pressor support since this a.m. Presently getting dialysis. Per nursing staff, no signs of rectal bleeding today. O: VS - see below PE: Const: Lying in bed, family at the bedside, intubated Head: Atraumatic, normocephalic Eyes: Normal Conjunctiva, PERRLA, EOMI, normal sclera, no nystagmus ENT: Normal External Ears, Nose and Mouth, moist mucus membranes. Neck: Supple Resp: Some decreased breath sounds in the bases b/l Cardio: Regular rate and rhythm, no murmurs, S1 S2 present Abd: Soft, non tender x 4, slight distention. 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 2D echo November 24, 2018: Conclusions Normal left ventricular systolic function. Normal left ventricular cavity size. Sigmoid septum. Ejection fraction is visually estimated at 55 %. Normal right ventricular systolic function. Moderate enlargement of right ventricle. There is mild enlargement of left atrium. There is mild enlargement of right atrium. Mild mitral leaflet calcification. Mild mitral annular calcification. Trace mitral regurgitation. Normal appearance of the tricuspid valve. There is trace tricuspid regurgitation. Assessment/Plan: 78-year-old male recently diagnosed with new colon mass, who presents with: # Hypoxic and hypercapnic respiratory failure: Appears to be due to pulmonary edema and possible pneumonia- Failed BiPAP, intubated 12/02. Presently still intubated, has failed CPAP trial the last 2-3 days. Again now off pressor support since this morning. - Continue Daily weaning trials per pulmonary recommendations # Sepsis: Secondary to likely fungal UTI now, as well upper restaurant infection as well, as UA positive and urine culture showing Rosalie growth greater than 100,000 colony-forming units -For now continue fluconazole, white blood cell count normal, no fevers # Cardiac- elevated troponins: - Got cardiac cath 12/02, clear coronaries. -Continue aspirin and statin for now, follow up cardiology recommendations # Sigmoid mass: Status post biopsy during recent hospitalization. 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 Mass is almost completely obstructive. Patient received rectal stent on December [address] Fang. -Monitor for now, Per discussion between hospitalist and Dr. Juan on 12/01, patient is not currently a surgical candidate due to his acute illness but may get surgery if he improves. -Per hematology oncology, it appears he has localized disease. Per their input, surgical resection is optimal treatment if he ever becomes stable for surgery. They have also stated typically radiation has no role in localized colon ca (radiation can play a role in palliative tx of met colon if painful site of metastatic disease for example). # Atrial fibrillation with RVR - resolved now -Continue to monitor, follow-up cardiology recommendations # Renal insufficiency: Oliguric acute on chronic renal failure. This was likely due to obstructive uropathy Being followed by renal team. Again received PermCath earlier and now on dialysis, getting again today -Continue monitor urine output, and continue dialysis per renal recommendations -Per renal team, after dialysis today, will schedule patient for Thursday, thursday, Thursday dialysis schedule #Hypernatremia -resolved -Monitor for now # Diabetes: Sugar stable, continue insulin while in-house DVT: Heparin GI: PPI Code status: Full. Family wants everything done to treat his multiorgan failure and cancer. Critical care time spent on patient care today equals 40 minutes. Result Diagram: 12/11/18 0448 12/11/18 0448 Results 24hrs Laboratory Tests Test 12/10/18 12:32 12/10/18 15:00 12/10/18 17:34 12/10/18 21:31 Bedside Glucose 112 103 94 Blood Gas Blood arterial Specimen Source Arterial Blood 12/10/2018 3:30: Date Drawn 03 PM Arterial Blood 7.256 *L pH (Temp corrected) Arterial Blood 78.8 H pCO2 (Temp correct) Arterial Blood 81.2 pO2 (Temp corrected) Arterial Blood 34.3 H HCO3 Arterial Blood 5.7 H Base Excess Arterial Blood 95.2 Oxygen Saturatio n Nilson Test ACCEPTAB Arterial Blood Left Radial Gas Puncture Site Arterial 0.9 Blood Carboxyhem oglobin Arterial Blood 0.4 Methemoglobin Blood Gas A-a O2 113.4 H Differential Oxyhemoglobin 94.0 Percent Blood Gas 37.0 Temperature Blood Gas Actual 19 Respiration Rate Blood Gas VENT - CPAP Modality FiO2 40.0 Blood Gas Low 5.0 PEEP Setting Blood Gas 10 Pressure Support Blood Gas E CABUNGCAL RN Critical Value Read Back Blood Gas DT Notified Whom Blood Gas 12/10/2018 3:39: Notified Time 09 PM Test 12/11/18 04:48 12/11/18 05:46 12/11/18 07:00 12/11/18 11:09 White Blood 5.9 Count Red Blood Count 3.19 L Hemoglobin 7.2 L Hematocrit 27.9 L Mean Corpuscular 87.5 Volume Mean Corpuscular 22.6 L Hemoglobin Mean Corpuscular 25.8 L Hemoglobin Sonali nt Red Cell 29.0 H Distribution Width Platelet Count 216 Mean Platelet Volume Immature 0.500 H Granulocytes % Neutrophils % 77.4 H Lymphocytes % 8.5 L Monocytes % 9.7 Eosinophils % 3.4 Basophils % 0.5 Nucleated Red 0.0 Blood Cells % Immature 0.030 Granulocytes # Neutrophils # 4.6 Lymphocytes # 0.5 L Monocytes # 0.6 Eosinophils # 0.2 Basophils # 0.0 Nucleated Red 0.0 Blood Cells # Sodium Level 139 Potassium Level 4.1 Chloride Level 98 Carbon Dioxide 30 Level Anion Gap 11 Blood Urea 30 #H Nitrogen Creatinine 3.31 H Est Glomerular Filtrat Rate mL/min Glucose Level 87 Calcium Level 9.0 Bedside Glucose 95 85 Blood Gas Blood arterial Specimen Source Arterial Blood 12/11/2018 9:15: Date Drawn 09 AM Arterial Blood 7.262 *L pH (Temp corrected) Arterial Blood 70.1 H pCO2 (Temp correct) Arterial Blood 72.4 L pO2 (Temp corrected) Arterial Blood 30.9 H HCO3 Arterial Blood 2.9 Base Excess Arterial Blood 93.6 L Oxygen Saturatio n Nilson Test ACCEPTAB Arterial Blood Right Brachial Gas Puncture Site Arterial 0.9 Blood Carboxyhem oglobin Arterial Blood 0.3 Methemoglobin Blood Gas A-a O2 132.2 H Differential Oxyhemoglobin 92.5 L Percent Blood Gas 37.0 Temperature Blood Gas 16.0 Respiration Rate Blood Gas Actual 16 Respiration Rate Blood Gas VENT - AC Modality FiO2 40.0 Blood Gas Tidal 500.0 Volume Blood Gas Low 5.0 PEEP Setting Blood Gas Rubina MC RN Critical Value Read Back Blood Gas Lala [employer] P[employer] Notified Whom Blood Gas 12/11/2018 9:37: Notified Time 06 AM Exam/Review of Systems Vital Signs Vitals Vital Signs Date Temp Pulse Resp B/P (MAP) Pulse Ox O2 O2 Flow FiO2 Time Delivery Rate 12/11/18 104 20 116/67 95 Mechanical 11:25 (83) Ventilator 12/11/18 40 11:15 12/11/18 98.8 08:00 Intake and Output 12/10/18 12/10/18 12/11/18 1414:59 22:59 06:59 IntakeIntake Total 81.27 ml 67.53 ml 166.24 ml OutputOutput Total 3010 ml 5 ml 50 ml BalanceBalance -2928.73 ml 62.53 ml 116.24 ml Medications Medications Current Medications Acetaminophen (Tylenol Liquid) 650 mg Q6H PRN PO PAIN LEVEL 1-3 OR FEVER Last administered on 12/02/18at 02:31; Admin Dose 650 MG; Start 11/23/18 at 22:30 Acetaminophen (Tylenol Supp) 650 mg Q4H PRN [place] PAIN LEVEL 1-3 OR FEVER Last administered on 12/02/18at 21:21; Admin Dose 650 MG; Start 11/23/18 at 22:30 Atorvastatin Calcium (Lipitor) 20 mg HS PO Last administered on 12/10/18at 21:26; Admin Dose 20 MG; Start 11/24/18 at 21:00 Albuterol/ Ipratropium (Duoneb) 3 ml Q4H RESP THERAPY PRN HHN SHORTNESS OF BREATH; Start 11/24/18 at 09:00 Aripiprazole (Abilify) 5 mg DAILY PO Last administered on 12/11/18at 10:17; Admin Dose 5 MG; Start 11/24/18 at 09:30 Digoxin (Digoxin) 0.25 mg DAILY@1300 PO Last administered on 11/26/18 13:41; Admin Dose 0.25 MG; Start 11/24/18 at 13:00; Status Hold Escitalopram Oxalate (Lexapro) 20 mg DAILY PO Last administered on 12/11/18 10:17; Admin Dose 20 MG; Start 11/24/18 at 09:30 Loratadine (Claritin) 10 mg DAILY PO Last administered on 12/11/18 10:17; Admin Dose 10 MG; Start 11/24/18 at 10:00 Multivitamins Therapeutic (Theragran) 1 tab DAILY PO Last administered on 12/11/18 10:19; Admin Dose 1 TAB; Start 11/24/18 at 09:30 Potassium Chloride (Micro-K) 8 meq DAILY PO Last administered on 11/24/18at 10 :12; Admin Dose 8 MEQ; Start 11/24/18 at 10:00; Status Hold Tamsulosin HCl (Flomax) 0.4 mg HS PO Last administered on 12/10/18at 21:26; Admin Dose 0.4 MG; Start 11/24/18 at 21:00 Calcium/Vitamin D (Oyster Shell/ Vit-D (500/200)) 1 tab DAILY PO Last administered on 12/11/18 10:17; Admin Dose 1 TAB; Start 11/24/18 at 09:30 Metoprolol Tartrate (Lopressor) 5 mg Q4H PRN IV HR>110 Hold SBP<100; Start 11/24/18 at 11:00 Diltiazem HCl (Cardizem Sr) 120 mg DAILY PO ; Start 11/25/18 at 14:00; Status Hold IV Flush (NS 10 ml) 10 ml PRN PRN IV IV PROTOCOL; Start 11/25/18 at 16:00 Hydralazine HCl (Apresoline) 25 mg Q8 PO Last administered on 12/09/18at 13:13; Admin Dose 25 MG; Start 11/26/18 at 22:00 Pantoprazole (Protonix Iv) 40 mg DAILY@06 IV Last administered on 12/11/18at 05:39; Admin Dose 40 MG; Start 11/29/18 at 06:00 Diagnostic Test (Pha) (Accu-Chek) 1 ea 02 XX Last administered on 12/10/18at 01:44; Admin Dose 1 EA; Start 12/01/18 at 02:00 Insulin Aspart (Novolog Insulin Pen) (Adult SC Insulin - Mild Algorithm)... Q4 SC Last administered on 12/08/18at 08:46; Admin Dose 1 UNIT; Start 11/30/18 at 09:00 Miscellaneous Information 1 ea NOTE XX ; Start 11/30/18 at 08:00 Glucose (Glutose) 15 gm Q15M PRN PO DECREASED GLUCOSE; Start 11/30/18 at 08:00 Glucose (Glutose) 22.5 gm Q15M PRN PO DECREASED GLUCOSE; Start 11/30/18 at 08:00 Dextrose (D50w Syringe) 25 ml Q15M PRN IV DECREASED GLUCOSE; Start 11/30/18 at 08:00 Dextrose (D50w Syringe) 50 ml Q15M PRN IV DECREASED GLUCOSE; Start 11/30/18 at 08:00 Glucagon (Glucagen) 1 mg Q15M PRN IM DECREASED GLUCOSE; Start 11/30/18 at 08:00 Glucose (Glutose) 15 gm Q15M PRN BUCCAL DECREASED GLUCOSE; Start 11/30/18 at 08:00 Midazolam HCl 50 ml @ 1 mls/hr TITRATE IV Last administered on 12/03/18at 03:19; Admin Dose 4 MLS/HR; Start 12/02/18 at 07:00 Norepinephrine 16 mg/Dextrose 500 ml @ 1.88 mls/hr TITRATE IV Last administered on 12/09/18at 20:04; Admin Dose 1.88 MLS/HR; Start 12/02/18 at 09:30 Fentanyl 100 ml @ 2.5 mls/hr TITRATE IV Last administered on 12/11/18at 05:42; Admin Dose 5 MLS/HR; Start 12/02/18 at 10:30 Acetaminophen (Tylenol Tab) 650 mg Q4H PRN PO mild pain Last administered on 12/05/18at 01:13; Admin Dose 650 MG; Start 12/02/18 at 12:00 Morphine Sulfate (morphine) 2 mg Q2H PRN IV moderate to severe pain; Start 12/02/18 at 12:00 Al Hydrox/Mg Hydrox/Simethicone (Mag-Al Plus) 30 ml Q4H PRN PO GASTROINTESTINAL UPSET; Start 12/02/18 at 12:00 Ondansetron HCl (Zofran Inj) 4 mg Q4H PRN IV NAUSEA AND/OR VOMITING Last administered on 12/07/18 23:27; Admin Dose 4 MG; Start 12/02/18 at 12:00 Collagenase (Santyl) 1 applic DAILY TOP Last administered on 12/11/18 09:00; Admin Dose 1 APPLIC; Start 12/03/18 at 14:00 Aspirin (Aspirin) 81 mg DAILY NGT Last administered on 12/11/18 09:00; Admin Dose 81 MG; Start 12/06/18 at 09:00 Heparin Sodium (Porcine) (Heparin (1000 Units/ml)) 4,000 unit AFTER DIALYSIS CATHETER Last administered on 12/10/18 12:58; Admin Dose 3,000 UNIT; Start 12/08/18 at 09:30 Albumin Human 100 ml @ 100 mls/hr WITH DIALYSIS PRN IV SBP less than 90 mm Hg Last administered on 12/10/18 10:08; Admin Dose 100 MLS/HR; Start 12/08/18 at 09:30 Sodium Chloride (NS) -To prime the dialy... DIRECTED FOR HD PRN IV SBP less than 90 mm Hg; Start 12/08/18 at 09:30 Mannitol 62.5 ml @ 0 mls/hr WITH DIALYSIS PRN IV WITH DIALYSIS Last administered on 12/08/18 22:03; Admin Dose 60 MLS/HR; Start 12/08/18 at 21:00 Fluconazole (Diflucan) 200 mg DAILY NGT Last administered on 12/11/18 10:17; Admin Dose 200 MG; Start 12/10/18 at 09:00 NAYANA GARCIA Dec 11, 2018 12:23
--- NOTE | 2018-12-11 12:26 | CONS ---
Date/Time of Note Date/Time of Note DATE: 12/11/18 TIME: 12:24 Assessment/Plan Assessment/Plan Assessment/Plan 1. Non-ST elevation myocardial infarction, currently down trending cardiac enzymes likely a type 2 demand infarct in the setting of fevers, hypercarbic respiratory failure.-downtrended cardiac enzymes. NO cp. Echo this admit 11/24 with NL EF 55%. Now s/p LHC 12/02 with no sig major epicardial obstructive cad. LVEDP 21 - No CP - no intervention currently planned 2. Abnormal electrocardiogram- r/o OK. 3. Right bundle branch block. 4. Colonic mass s/p stent placement - GI follows. 5. Anemia. 6. Renal failure-worsening- nw on HD - goal to remove 2L now. 7. Leukocytosis. 8. Coagulopathy. 9. Sepsis. 10. Atrial fibrillation-now in SR- con't rate control. 11.CHF-diastolic acute on chronic 12. Resp failure s/p intubation 14. Hypotension on levophed 15. PTX Result Diagram: 12/11/188 12/11/18 0448 Results 24hrs Laboratory Tests Test 12/10/18 12:32 12/10/18 15:00 12/10/18 17:34 12/10/18 21:31 Bedside Glucose 112 103 94 Blood Gas Blood arterial Specimen Source Arterial Blood 12/10/2018 3:30: Date Drawn 03 PM Arterial Blood 7.256 *L pH (Temp corrected) Arterial Blood 78.8 H pCO2 (Temp correct) Arterial Blood 81.2 pO2 (Temp corrected) Arterial Blood 34.3 H HCO3 Arterial Blood 5.7 H Base Excess Arterial Blood 95.2 Oxygen Saturatio n Nilson Test ACCEPTAB Arterial Blood Left Radial Gas Puncture Site Arterial 0.9 Blood Carboxyhem oglobin Arterial Blood 0.4 Methemoglobin Blood Gas A-a O2 113.4 H Differential Oxyhemoglobin 94.0 Percent Blood Gas 37.0 Temperature Blood Gas Actual 19 Respiration Rate Blood Gas VENT - CPAP Modality FiO2 40.0 Blood Gas Low 5.0 PEEP Setting Blood Gas 10 Pressure Support Blood Gas E CABUNGCAL RN Critical Value Read Back Blood Gas DT Notified Whom Blood Gas 12/10/2018 3:39: Notified Time 09 PM Test 12/11/18 04:48 12/11/18 05:46 12/11/18 07:00 12/11/18 11:09 White Blood 5.9 Count Red Blood Count 3.19 L Hemoglobin 7.2 L Hematocrit 27.9 L Mean Corpuscular 87.5 Volume Mean Corpuscular 22.6 L Hemoglobin Mean Corpuscular 25.8 L Hemoglobin Sonali nt Red Cell 29.0 H Distribution Width Platelet Count 216 Mean Platelet Volume Immature 0.500 H Granulocytes % Neutrophils % 77.4 H Lymphocytes % 8.5 L Monocytes % 9.7 Eosinophils % 3.4 Basophils % 0.5 Nucleated Red 0.0 Blood Cells % Immature 0.030 Granulocytes # Neutrophils # 4.6 Lymphocytes # 0.5 L Monocytes # 0.6 Eosinophils # 0.2 Basophils # 0.0 Nucleated Red 0.0 Blood Cells # Sodium Level 139 Potassium Level 4.1 Chloride Level 98 Carbon Dioxide 30 Level Anion Gap 11 Blood Urea 30 #H Nitrogen Creatinine 3.31 H Est Glomerular Filtrat Rate mL/min Glucose Level 87 Calcium Level 9.0 Bedside Glucose 95 85 Blood Gas Blood arterial Specimen Source Arterial Blood 12/11/2018 9:15: Date Drawn 09 AM Arterial Blood 7.262 *L pH (Temp corrected) Arterial Blood 70.1 H pCO2 (Temp correct) Arterial Blood 72.4 L pO2 (Temp corrected) Arterial Blood 30.9 H HCO3 Arterial Blood 2.9 Base Excess Arterial Blood 93.6 L Oxygen Saturatio n Nilson Test ACCEPTAB Arterial Blood Right Brachial Gas Puncture Site Arterial 0.9 Blood Carboxyhem oglobin Arterial Blood 0.3 Methemoglobin Blood Gas A-a O2 132.2 H Differential Oxyhemoglobin 92.5 L Percent Blood Gas 37.0 Temperature Blood Gas 16.0 Respiration Rate Blood Gas Actual 16 Respiration Rate Blood Gas VENT - AC Modality FiO2 40.0 Blood Gas Tidal 500.0 Volume Blood Gas Low 5.0 PEEP Setting Blood Gas Rubina MC RN Critical Value Read Back Blood Gas Lala [employer] Notified Whom Blood Gas 12/11/2018 9:37: Notified Time 06 AM Consultation Date/Type/Reason Admit Date/Time Nov 23, 2018 at 22:01 Initial Consult Date 11/25/18 Requesting Provider: NAYANA GARCIA 24 HR Interval Summary Free Text/Dictation NO acute events - pt hemodynamically stable - no CP now - will keep euvolemic. ROS: No fever, no chills, no nausea, no vomiting, no diarrhea/constipation No recent weight changes No chest pain, no PND, no orthopnea - improved SOB No dizziness, blurred vision No thirst, no heat or cold intolerance Exam/Review of Systems Vital Signs Vitals Vital Signs Date Temp Pulse Resp B/P (MAP) Pulse Ox O2 O2 Flow FiO2 Time Delivery Rate 12/11/18 104 20 116/67 95 Mechanical 11:25 (83) Ventilator 12/11/18 40 11:15 12/11/18 98.8 08:00 Intake and Output 12/10/18 12/10/18 12/11/18 1515:00 23:00 07:00 IntakeIntake Total 80.02 ml 65.66 ml 159.36 ml OutputOutput Total 3005 ml 5 ml 50 ml BalanceBalance -2924.98 ml 60.66 ml 109.36 ml Exam General: WN/WD/NAD, AOx 0 HEENT: Unicetric/atraumatic/EOMI (does not follow commands) NECK: JVD elevated, no thyromegaly Lymph: no lymphadenopathy HEART: regular with no S3, II/ systolic murmur at apex - PMI L LUNGS: Coarse sounds ABD: soft, NT, ND, +BS : Intact Neuro: non focal SKIN: chronic changes EXT: trace edema Medications Medications Current Medications Acetaminophen (Tylenol Liquid) 650 mg Q6H PRN PO PAIN LEVEL 1-3 OR FEVER Last administered on 12/02/18at 02:31; Admin Dose 650 MG; Start 11/23/18 at 22:30 Acetaminophen (Tylenol Supp) 650 mg Q4H PRN [place] PAIN LEVEL 1-3 OR FEVER Last administered on 12/02/18at 21:21; Admin Dose 650 MG; Start 11/23/18 at 22:30 Atorvastatin Calcium (Lipitor) 20 mg HS PO Last administered on 12/10/18at 21:26; Admin Dose 20 MG; Start 11/24/18 at 21:00 Albuterol/ Ipratropium (Duoneb) 3 ml Q4H RESP THERAPY PRN HHN SHORTNESS OF BREATH; Start 11/24/18 at 09:00 Aripiprazole (Abilify) 5 mg DAILY PO Last administered on 12/11/18at 10:17; Admin Dose 5 MG; Start 11/24/18 at 09:30 Digoxin (Digoxin) 0.25 mg DAILY@1300 PO Last administered on 11/26/18 13:41; Admin Dose 0.25 MG; Start 11/24/18 at 13:00; Status Hold Escitalopram Oxalate (Lexapro) 20 mg DAILY PO Last administered on 12/11/18 10:17; Admin Dose 20 MG; Start 11/24/18 at 09:30 Loratadine (Claritin) 10 mg DAILY PO Last administered on 12/11/18 10:17; Admin Dose 10 MG; Start 11/24/18 at 10:00 Multivitamins Therapeutic (Theragran) 1 tab DAILY PO Last administered on 12/11/18 10:19; Admin Dose 1 TAB; Start 11/24/18 at 09:30 Potassium Chloride (Micro-K) 8 meq DAILY PO Last administered on 11/24/18 10:12; Admin Dose 8 MEQ; Start 11/24/18 at 10:00; Status Hold Tamsulosin HCl (Flomax) 0.4 mg HS PO Last administered on 12/10/18 21:26; Admin Dose 0.4 MG; Start 11/24/18 at 21:00 Calcium/Vitamin D (Oyster Shell/ Vit-D (500/200)) 1 tab DAILY PO Last administered on 12/11/18 10:17; Admin Dose 1 TAB; Start 11/24/18 at 09:30 Metoprolol Tartrate (Lopressor) 5 mg Q4H PRN IV HR>110 Hold SBP<100; Start 11/24/18 at 11:00 Diltiazem HCl (Cardizem Sr) 120 mg DAILY PO ; Start 11/25/18 at 14:00; Status Hold IV Flush (NS 10 ml) 10 ml PRN PRN IV IV PROTOCOL; Start 11/25/18 at 16:00 Hydralazine HCl (Apresoline) 25 mg Q8 PO Last administered on 12/09/18 13:13; Admin Dose 25 MG; Start 11/26/18 at 22:00 Pantoprazole (Protonix Iv) 40 mg DAILY@06 IV Last administered on 12/11/18 05:39; Admin Dose 40 MG; Start 11/29/18 at 06:00 Diagnostic Test (Pha) (Accu-Chek) 1 ea 02 XX Last administered on 12/10/18at 01:44; Admin Dose 1 EA; Start 12/01/18 at 02:00 Insulin Aspart (Novolog Insulin Pen) (Adult SC Insulin - Mild Algorithm)... Q4 SC Last administered on 12/08/18at 08:46; Admin Dose 1 UNIT; Start 11/30/18 at 09:00 Miscellaneous Information 1 ea NOTE XX ; Start 11/30/18 at 08:00 Glucose (Glutose) 15 gm Q15M PRN PO DECREASED GLUCOSE; Start 11/30/18 at 08:00 Glucose (Glutose) 22.5 gm Q15M PRN PO DECREASED GLUCOSE; Start 11/30/18 at 08:00 Dextrose (D50w Syringe) 25 ml Q15M PRN IV DECREASED GLUCOSE; Start 11/30/18 at 08:00 Dextrose (D50w Syringe) 50 ml Q15M PRN IV DECREASED GLUCOSE; Start 11/30/18 at 08:00 Glucagon (Glucagen) 1 mg Q15M PRN IM DECREASED GLUCOSE; Start 11/30/18 at 08:00 Glucose (Glutose) 15 gm Q15M PRN BUCCAL DECREASED GLUCOSE; Start 11/30/18 at 08:00 Midazolam HCl 50 ml @ 1 mls/hr TITRATE IV Last administered on 12/03/18at 03:19; Admin Dose 4 MLS/HR; Start 12/02/18 at 07:00 Norepinephrine 16 mg/Dextrose 500 ml @ 1.88 mls/hr TITRATE IV Last administered on 12/09/18at 20:04; Admin Dose 1.88 MLS/HR; Start 12/02/18 at 09:30 Fentanyl 100 ml @ 2.5 mls/hr TITRATE IV Last administered on 12/11/18at 05:42; Admin Dose 5 MLS/HR; Start 12/02/18 at 10:30 Acetaminophen (Tylenol Tab) 650 mg Q4H PRN PO mild pain Last administered on 12/05/18at 01:13; Admin Dose 650 MG; Start 12/02/18 at 12:00 Morphine Sulfate (morphine) 2 mg Q2H PRN IV moderate to severe pain; Start 12/02/18 at 12:00 Al Hydrox/Mg Hydrox/Simethicone (Mag-Al Plus) 30 ml Q4H PRN PO GASTROINTESTINAL UPSET; Start 12/02/18 at 12:00 Ondansetron HCl (Zofran Inj) 4 mg Q4H PRN IV NAUSEA AND/OR VOMITING Last administered on 12/07/18 23:27; Admin Dose 4 MG; Start 12/02/18 at 12:00 Collagenase (Santyl) 1 applic DAILY TOP Last administered on 12/11/18 09:00; Admin Dose 1 APPLIC; Start 12/03/18 at 14:00 Aspirin (Aspirin) 81 mg DAILY NGT Last administered on 12/11/18 09:00; Admin Dose 81 MG; Start 12/06/18 at 09:00 Heparin Sodium (Porcine) (Heparin (1000 Units/ml)) 4,000 unit AFTER DIALYSIS CATHETER Last administered on 12/10/18 12:58; Admin Dose 3,000 UNIT; Start 12/08/18 at 09:30 Albumin Human 100 ml @ 100 mls/hr WITH DIALYSIS PRN IV SBP less than 90 mm Hg Last administered on 12/10/18 10:08; Admin Dose 100 MLS/HR; Start 12/08/18 at 09:30 Sodium Chloride (NS) -To prime the dialy... DIRECTED FOR HD PRN IV SBP less than 90 mm Hg; Start 12/08/18 at 09:30 Mannitol 62.5 ml @ 0 mls/hr WITH DIALYSIS PRN IV WITH DIALYSIS Last administe red on 12/08/18 22:03; Admin Dose 60 MLS/HR; Start 12/08/18 at 21:00 Fluconazole (Diflucan) 200 mg DAILY NGT Last administered on 12/11/18 10:17; Admin Dose 200 MG; Start 12/10/18 at 09:00 SCARLET HARDWICK MD Dec 11, 2018 12:26
--- NOTE | 2018-12-11 12:42 | CONS ---
Date/Time of Note Date/Time of Note DATE: 12/11/18 TIME: 12:39 Consult Date/Type/Reason Admit Date/Time Nov 23, 2018 at 22:01 Initial Consult Date 11/25/18 Type of Consultation: Pulm/CCM Requesting Provider: NAYANA GARCIA Subjective No events. Agitated on the vent. On HD at time of visit. Objective Vital Signs Date Temp Pulse Resp B/P (MAP) Pulse Ox O2 O2 Flow FiO2 Time Delivery Rate 12/11/18 95 12:25 12/11/18 20 116/67 95 Mechanical 11:25 (83) Ventilator 12/11/18 40 11:15 12/11/18 98.8 08:00 Intake and Output 12/10/18 12/10/18 12/11/18 1515:00 23:00 07:00 IntakeIntake Total 80.02 ml 65.66 ml 159.36 ml OutputOutput Total 3005 ml 5 ml 50 ml BalanceBalance -2924.98 ml 60.66 ml 109.36 ml Exam HEENT: Neck supple; no JVD; no LAD; + ET tube CVS: Irreg, S1 and S2 CHEST: Coarse BS and rhonchi B/L ABD: Soft, NT, + BS EXT: No c/c; +tr edema Results/Medications Result Diagram: 12/11/1844712/11/18447 Results 24 hrs Laboratory Tests Test 12/10/18 15:00 12/10/18 17:34 12/10/18 21:31 12/11/18 04:48 Blood Gas Blood arterial Specimen Source Arterial Blood 12/10/2018 3:30: Date Drawn 03 PM Arterial Blood 7.256 *L pH (Temp corrected) Arterial Blood 78.8 H pCO2 (Temp correct) Arterial Blood 81.2 pO2 (Temp corrected) Arterial Blood 34.3 H HCO3 Arterial Blood 5.7 H Base Excess Arterial Blood 95.2 Oxygen Saturatio n Nilson Test ACCEPTAB Arterial Blood Left Radial Gas Puncture Site Arterial 0.9 Blood Carboxyhem oglobin Arterial Blood 0.4 Methemoglobin Blood Gas A-a O2 113.4 H Differential Oxyhemoglobin 94.0 Percent Blood Gas 37.0 Temperature Blood Gas Actual 19 Respiration Rate Blood Gas VENT - CPAP Modality FiO2 40.0 Blood Gas Low 5.0 PEEP Setting Blood Gas 10 Pressure Support Blood Gas E CABUNGCAL RN Critical Value Read Back Blood Gas DT Notified Whom Blood Gas 12/10/2018 3:39: Notified Time 09 PM Bedside Glucose 103 94 White Blood 5.9 Count Red Blood Count 3.19 L Hemoglobin 7.2 L Hematocrit 27.9 L Mean Corpuscular 87.5 Volume Mean Corpuscular 22.6 L Hemoglobin Mean Corpuscular 25.8 L Hemoglobin Sonali nt Red Cell 29.0 H Distribution Width Platelet Count 216 Mean Platelet Volume Immature 0.500 H Granulocytes % Neutrophils % 77.4 H Lymphocytes % 8.5 L Monocytes % 9.7 Eosinophils % 3.4 Basophils % 0.5 Nucleated Red 0.0 Blood Cells % Immature 0.030 Granulocytes # Neutrophils # 4.6 Lymphocytes # 0.5 L Monocytes # 0.6 Eosinophils # 0.2 Basophils # 0.0 Nucleated Red 0.0 Blood Cells # Sodium Level 139 Potassium Level 4.1 Chloride Level 98 Carbon Dioxide 30 Level Anion Gap 11 Blood Urea 30 #H Nitrogen Creatinine 3.31 H Est Glomerular Filtrat Rate mL/min Glucose Level 87 Calcium Level 9.0 Test 12/11/18 05:46 12/11/18 07:00 12/11/18 11:09 Bedside Glucose 95 85 Blood Gas Blood arterial Specimen Source Arterial Blood 12/11/2018 9:15: Date Drawn 09 AM Arterial Blood 7.262 *L pH (Temp corrected) Arterial Blood 70.1 H pCO2 (Temp correct) Arterial Blood 72.4 L pO2 (Temp corrected) Arterial Blood 30.9 H HCO3 Arterial Blood 2.9 Base Excess Arterial Blood 93.6 L Oxygen Saturatio n Nilson Test ACCEPTAB Arterial Blood Right Brachial Gas Puncture Site Arterial 0.9 Blood Carboxyhem oglobin Arterial Blood 0.3 Methemoglobin Blood Gas A-a O2 132.2 H Differential Oxyhemoglobin 92.5 L Percent Blood Gas 37.0 Temperature Blood Gas 16.0 Respiration Rate Blood Gas Actual 16 Respiration Rate Blood Gas VENT - AC Modality FiO2 40.0 Blood Gas Tidal 500.0 Volume Blood Gas Low 5.0 PEEP Setting Blood Gas Rubina MC RN Critical Value Read Back Blood Gas Lala ALFREDOP Notified Whom Blood Gas 12/11/2018 9:37: Notified Time 06 AM Medications Current Medications Acetaminophen (Tylenol Liquid) 650 mg Q6H PRN PO PAIN LEVEL 1-3 OR FEVER Last administered on 12/02/18 02:31; Admin Dose 650 MG; Start 11/23/18 at 22:30 Acetaminophen (Tylenol Supp) 650 mg Q4H PRN [place] PAIN LEVEL 1-3 OR FEVER Last administered on 12/02/18 21:21; Admin Dose 650 MG; Start 11/23/18 at 22:30 Atorvastatin Calcium (Lipitor) 20 mg HS PO Last administered on 12/10/18 21:26; Admin Dose 20 MG; Start 11/24/18 at 21:00 Albuterol/ Ipratropium (Duoneb) 3 ml Q4H RESP THERAPY PRN HHN SHORTNESS OF BREATH; Start 11/24/18 at 09:00 Aripiprazole (Abilify) 5 mg DAILY PO Last administered on 12/11/18 10:17; Admin Dose 5 MG; Start 11/24/18 at 09:30 Digoxin (Digoxin) 0.25 mg DAILY@1300 PO Last administered on 11/26/18 13:41; Admin Dose 0.25 MG; Start 11/24/18 at 13:00; Status Hold Escitalopram Oxalate (Lexapro) 20 mg DAILY PO Last administered on 12/11/18 10:17; Admin Dose 20 MG; Start 11/24/18 at 09:30 Loratadine (Claritin) 10 mg DAILY PO Last administered on 12/11/18 10:17; Admin Dose 10 MG; Start 11/24/18 at 10:00 Multivitamins Therapeutic (Theragran) 1 tab DAILY PO Last administered on 12/11/18 10:19; Admin Dose 1 TAB; Start 11/24/18 at 09:30 Potassium Chloride (Micro-K) 8 meq DAILY PO Last administered on 11/24/18 10:12; Admin Dose 8 MEQ; Start 11/24/18 at 10:00; Status Hold Tamsulosin HCl (Flomax) 0.4 mg HS PO Last administered on 12/10/18 21:26; Admin Dose 0.4 MG; Start 11/24/18 at 21:00 Calcium/Vitamin D (Oyster Shell/ Vit-D (500/200)) 1 tab DAILY PO Last administered on 12/11/18 10:17; Admin Dose 1 TAB; Start 11/24/18 at 09:30 Metoprolol Tartrate (Lopressor) 5 mg Q4H PRN IV HR>110 Hold SBP<100; Start 11/24/18 at 11:00 Diltiazem HCl (Cardizem Sr) 120 mg DAILY PO ; Start 11/25/18 at 14:00; Status Hold IV Flush (NS 10 ml) 10 ml PRN PRN IV IV PROTOCOL; Start 11/25/18 at 16:00 Hydralazine HCl (Apresoline) 25 mg Q8 PO Last administered on 12/09/18at 13:13; Admin Dose 25 MG; Start 11/26/18 at 22:00 Pantoprazole (Protonix Iv) 40 mg DAILY@06 IV Last administered on 12/11/18at 05:39; Admin Dose 40 MG; Start 11/29/18 at 06:00 Diagnostic Test (Pha) (Accu-Chek) 1 ea 02 XX Last administered on 12/10/18at 01:44; Admin Dose 1 EA; Start 12/01/18 at 02:00 Insulin Aspart (Novolog Insulin Pen) (Adult SC Insulin - Mild Algorithm)... Q4 SC Last administered on 12/08/18at 08:46; Admin Dose 1 UNIT; Start 11/30/18 at 09:00 Miscellaneous Information 1 ea NOTE XX ; Start 11/30/18 at 08:00 Glucose (Glutose) 15 gm Q15M PRN PO DECREASED GLUCOSE; Start 11/30/18 at 08:00 Glucose (Glutose) 22.5 gm Q15M PRN PO DECREASED GLUCOSE; Start 11/30/18 at 08:00 Dextrose (D50w Syringe) 25 ml Q15M PRN IV DECREASED GLUCOSE; Start 11/30/18 at 08:00 Dextrose (D50w Syringe) 50 ml Q15M PRN IV DECREASED GLUCOSE; Start 11/30/18 at 08:00 Glucagon (Glucagen) 1 mg Q15M PRN IM DECREASED GLUCOSE; Start 11/30/18 at 08:00 Glucose (Glutose) 15 gm Q15M PRN BUCCAL DECREASED GLUCOSE; Start 11/30/18 at 08:00 Midazolam HCl 50 ml @ 1 mls/hr TITRATE IV Last administered on 12/03/18at 03:19; Admin Dose 4 MLS/HR; Start 12/02/18 at 07:00 Norepinephrine 16 mg/Dextrose 500 ml @ 1.88 mls/hr TITRATE IV Last administered on 12/09/18 20:04; Admin Dose 1.88 MLS/HR; Start 12/02/18 at 09:30 Fentanyl 100 ml @ 2.5 mls/hr TITRATE IV Last administered on 12/11/18 05:42; Admin Dose 5 MLS/HR; Start 12/02/18 at 10:30 Acetaminophen (Tylenol Tab) 650 mg Q4H PRN PO mild pain Last administered on 12/05/18 01:13; Admin Dose 650 MG; Start 12/02/18 at 12:00 Morphine Sulfate (morphine) 2 mg Q2H PRN IV moderate to severe pain; Start 12/02/18 at 12:00 Al Hydrox/Mg Hydrox/Simethicone (Mag-Al Plus) 30 ml Q4H PRN PO GASTROINTESTINAL UPSET; Start 12/02/18 at 12:00 Ondansetron HCl (Zofran Inj) 4 mg Q4H PRN IV NAUSEA AND/OR VOMITING Last ad ministered on 12/07/18 23:27; Admin Dose 4 MG; Start 12/02/18 at 12:00 Collagenase (Santyl) 1 applic DAILY TOP Last administered on 12/11/18 09:00; Admin Dose 1 APPLIC; Start 12/03/18 at 14:00 Aspirin (Aspirin) 81 mg DAILY NGT Last administered on 12/11/18 09:00; Admin Dose 81 MG; Start 12/06/18 at 09:00 Heparin Sodium (Porcine) (Heparin (1000 Units/ml)) 4,000 unit AFTER DIALYSIS CATHETER Last administered on 12/10/18 12:58; Admin Dose 3,000 UNIT; Start 12/08/18 at 09:30 Albumin Human 100 ml @ 100 mls/hr WITH DIALYSIS PRN IV SBP less than 90 mm Hg Last administered on 12/10/18 10:08; Admin Dose 100 MLS/HR; Start 12/08/18 at 09:30 Sodium Chloride (NS) -To prime the dialy... DIRECTED FOR HD PRN IV SBP less than 90 mm Hg; Start 12/08/18 at 09:30 Mannitol 62.5 ml @ 0 mls/hr WITH DIALYSIS PRN IV WITH DIALYSIS Last administered on 12/08/18 22:03; Admin Dose 60 MLS/HR; Start 12/08/18 at 21:00 Fluconazole (Diflucan) 200 mg DAILY NGT Last administered on 12/11/18at 10:17; Admin Dose 200 MG; Start 12/10/18 at 09:00 Assessment/Plan Additional Assessment/Plan IMP: 1. Acute on chronic hypoxemic/hypercapnic respiratory failure--most likely due to volume overload +/- pneumonia. Right pleural effusion. Status post thoracentesis. 2. Sigmoid mass, presumed colon cancer with recent severe anemia. Status post stent placement 3. Non-ST elevation myocardial infarction. Status post cardiac cath with no target lesions identified. 4. Atrial fibrillation with rapid ventricular response, now rate controlled 5. Worsening renal failure likely requiring hemodialysis. Likely contrast nephropathy 6. Anemia RECS: 1. Continue efforts to wean as tolerated; perhaps post HD/UF may have more success 2. HD/UF 3. Vent support 4. For now vent to VC+ Vt targ 500; PEEP 5 Critical care time 40 minutes KATHY HUTCHINSON MD Dec 11, 2018 12:42
--- NOTE | 2018-12-11 19:16 | NUR ---
EOSS LEVOPHED IV STOPPED AT 0830. MAP >65. PT AGITATED THE ENTIRE DAY ON FENTANYL 50MCG/HR. MD AWARE. ABG RESULTED WITH CRITICAL PH, MD AWARE. VENT SETTINGS CHANGED PER PULMONARY. PT STILL IN THE 60S ON etCO2 MONITOR. PER DR. HUTCHINSON, OK TO INCREASE SEDATION FOR PT TO TOLERATE VENT BETTER. SPOKE TO FAMILY AT BEDSIDE WHO ARE VERY AGAINST INCREASING SEDATION, UPON TEACHING AND CLARIFYING THE REASONS THE PT NEEDED TO REST ON THE VENT, FAMILY UNDERSTANDS AND SUPPORTS OUR DECISION TO INCREASE FENTANYL. PT APPEARS MORE COMFORTABLE WITH INCREASED SEDATION. CHEST PT WITH BED PROVIDED TWICE TODAY. HD COMPLETED, 1.5 L PULLED.
--- NOTE | 2018-12-11 21:04 | CONS ---
Date/Time of Note Date/Time of Note DATE: 12/11/18 TIME: 21:04 Assessment/Plan Assessment/Plan Assessment/Plan 1. Oliguric Acute on chronic renal failure due to Sepsis and Hemodynamics + obstructive uropathy - Worsening causing uremic encephalopathy 2. atrial fibrillation with RVR- now rate controlled 3. acute hypoxemic and hypercapnic resp failure due to PNA - failed BIPAP; intubated 4. Sepsis 5. Positive troponin 6. BPH on flomax 7. Colon CA Plan: BUN/Cr continues to rise - started on HD on 12/08/18- s/p HD x 4 days in row, today 1.5 L removed, BUN improved to normal, pt is agitated during HD today will keep pt on MWF schedule. S/p LHC which showed moderate Nonobstructive CAD - medical management SP Colonoscopy with stent placement by GI Full code d/w pt son at bedside -still want to keep his dad Full code and want to aggressive care if needed will follow up Result Diagram: 12/11/18 0448 12/11/18 0448 Results 24hrs Laboratory Tests Test 12/10/18 21:31 12/11/18 04:48 12/11/18 05:46 12/11/18 07:00 Bedside Glucose 94 95 White Blood Count 5.9 Red Blood Count 3.19 L Hemoglobin 7.2 L Hematocrit 27.9 L Mean Corpuscular 87.5 Volume Mean Corpuscular 22.6 L Hemoglobin Mean Corpuscular 25.8 L Hemoglobin Concen t Red Cell 29.0 H Distribution Width Platelet Count 216 Mean Platelet Volume Immature 0.500 H Granulocytes % Neutrophils % 77.4 H Lymphocytes % 8.5 L Monocytes % 9.7 Eosinophils % 3.4 Basophils % 0.5 Nucleated Red 0.0 Blood Cells % Immature 0.030 Granulocytes # Neutrophils # 4.6 Lymphocytes # 0.5 L Monocytes # 0.6 Eosinophils # 0.2 Basophils # 0.0 Nucleated Red 0.0 Blood Cells # Sodium Level 139 Potassium Level 4.1 Chloride Level 98 Carbon Dioxide 30 Level Anion Gap 11 Blood Urea 30 #H Nitrogen Creatinine 3.31 H Est Glomerular Filtrat Rate mL/min Glucose Level 87 Calcium Level 9.0 Blood Gas Blood arterial Specimen Source Arterial Blood 12/11/2018 9:15:0 Date Drawn 9 AM Arterial Blood pH 7.262 *L (Temp corrected) Arterial Blood 70.1 H pCO2 (Temp correct) Arterial Blood 72.4 L pO2 (Temp corrected) Arterial Blood 30.9 H HCO3 Arterial Blood 2.9 Base Excess Arterial Blood 93.6 L Oxygen Saturation Nilson Test ACCEPTAB Arterial Blood Right Brachial Gas Puncture Site Arterial 0.9 Blood Carboxyhemo globin Arterial Blood 0.3 Methemoglobin Blood Gas A-a O2 132.2 H Differential Oxyhemoglobin 92.5 L Percent Blood Gas 37.0 Temperature Blood Gas 16.0 Respiration Rate Blood Gas Actual 16 Respiration Rate Blood Gas VENT - AC Modality FiO2 40.0 Blood Gas Tidal 500.0 Volume Blood Gas Low 5.0 PEEP Setting Blood Gas Rubina MC RN Critical Value Read Back Blood Gas Lala [employer]ERK Notified Whom Blood Gas 12/11/2018 9:37:0 Notified Time 6 AM Test 12/11/18 11:09 12/11/18 17:00 Bedside Glucose 85 71 Consultation Date/Type/Reason Admit Date/Time Nov 23, 2018 at 22:01 Initial Consult Date 11/24/18 Type of Consult NEPHROLOGY Requesting Provider: NAYANA GARCIA SRonni 24 HR Interval Summary Free Text/Dictation s/p HD today 1.5 L removed, pt remained on ventilator Exam/Review of Systems Vital Signs Vitals Vital Signs Date Temp Pulse Resp B/P (MAP) Pulse Ox O2 O2 Flow FiO2 Time Delivery Rate 12/11/18 40 20:00 12/11/18 107 23 123/61 98 Mechanical 20:00 (81) Ventilator 12/11/18 98.3 16:00 Intake and Output 12/10/18 12/10/18 12/11/18 1515:00 23:00 07:00 IntakeIntake Total 80.02 ml 65.66 ml 166.24 ml OutputOutput Total 3005 ml 5 ml 50 ml BalanceBalance -2924.98 ml 60.66 ml 116.24 ml Exam Constitutional: moderate distress, intubated on ventilator, ET tube in place Respiratory: Bilateral coarse BS+, basilar crackles Cardiovascular: regular rate and rhythm, nl pulses Gastrointestinal: soft, non-tender Musculoskeletal: 1-2+ pitting edema , + hess catheter Neurological: Uncooperative for neuro exam Medications Medications Current Medications Acetaminophen (Tylenol Liquid) 650 mg Q6H PRN PO PAIN LEVEL 1-3 OR FEVER Last administered on 12/02/18 02:31; Admin Dose 650 MG; Start 11/23/18 at 22:30 Acetaminophen (Tylenol Supp) 650 mg Q4H PRN GA PAIN LEVEL 1-3 OR FEVER Last administered on 12/02/18 21:21; Admin Dose 650 MG; Start 11/23/18 at 22:30 Atorvastatin Calcium (Lipitor) 20 mg HS PO Last administered on 12/10/18 21:26; Admin Dose 20 MG; Start 11/24/18 at 21:00 Albuterol/ Ipratropium (Duoneb) 3 ml Q4H RESP THERAPY PRN HHN SHORTNESS OF BREATH; Start 11/24/18 at 09:00 Aripiprazole (Abilify) 5 mg DAILY PO Last administered on 12/11/18 10:17; Admin Dose 5 MG; Start 11/24/18 at 09:30 Digoxin (Digoxin) 0.25 mg DAILY@1300 PO Last administered on 11/26/18 13:41; Admin Dose 0.25 MG; Start 11/24/18 at 13:00; Status Hold Escitalopram Oxalate (Lexapro) 20 mg DAILY PO Last administered on 12/11/18 10:17; Admin Dose 20 MG; Start 11/24/18 at 09:30 Loratadine (Claritin) 10 mg DAILY PO Last administered on 12/11/18 10:17; Admin Dose 10 MG; Start 11/24/18 at 10:00 Multivitamins Therapeutic (Theragran) 1 tab DAILY PO Last administered on 12/11/18 10:19; Admin Dose 1 TAB; Start 11/24/18 at 09:30 Potassium Chloride (Micro-K) 8 meq DAILY PO Last administered on 11/24/18 10:12; Admin Dose 8 MEQ; Start 11/24/18 at 10:00; Status Hold Tamsulosin HCl (Flomax) 0.4 mg HS PO Last administered on 12/10/18 21:26; Admin Dose 0.4 MG; Start 11/24/18 at 21:00 Calcium/Vitamin D (Oyster Shell/ Vit-D (500/200)) 1 tab DAILY PO Last administered on 12/11/18 10:17; Admin Dose 1 TAB; Start 11/24/18 at 09:30 Metoprolol Tartrate (Lopressor) 5 mg Q4H PRN IV HR>110 Hold SBP<100; Start 11/24/18 at 11:00 Diltiazem HCl (Cardizem Sr) 120 mg DAILY PO ; Start 11/25/18 at 14:00; Status Hold IV Flush (NS 10 ml) 10 ml PRN PRN IV IV PROTOCOL; Start 11/25/18 at 16:00 Hydralazine HCl (Apresoline) 25 mg Q8 PO Last administered on 12/09/18at 13:13; Admin Dose 25 MG; Start 11/26/18 at 22:00 Pantoprazole (Protonix Iv) 40 mg DAILY@06 IV Last administered on 12/11/18at 05:39; Admin Dose 40 MG; Start 11/29/18 at 06:00 Diagnostic Test (Pha) (Accu-Chek) 1 ea 02 XX Last administered on 12/10/18at 01:44; Admin Dose 1 EA; Start 12/01/18 at 02:00 Insulin Aspart (Novolog Insulin Pen) (Adult SC Insulin - Mild Algorithm)... Q4 SC Last administered on 12/08/18at 08:46; Admin Dose 1 UNIT; Start 11/30/18 at 09:00 Miscellaneous Information 1 ea NOTE XX ; Start 11/30/18 at 08:00 Glucose (Glutose) 15 gm Q15M PRN PO DECREASED GLUCOSE; Start 11/30/18 at 08:00 Glucose (Glutose) 22.5 gm Q15M PRN PO DECREASED GLUCOSE; Start 11/30/18 at 08:00 Dextrose (D50w Syringe) 25 ml Q15M PRN IV DECREASED GLUCOSE; Start 11/30/18 at 08:00 Dextrose (D50w Syringe) 50 ml Q15M PRN IV DECREASED GLUCOSE; Start 11/30/18 at 08:00 Glucagon (Glucagen) 1 mg Q15M PRN IM DECREASED GLUCOSE; Start 11/30/18 at 08:00 Glucose (Glutose) 15 gm Q15M PRN BUCCAL DECREASED GLUCOSE; Start 11/30/18 at 08:00 Midazolam HCl 50 ml @ 1 mls/hr TITRATE IV Last administered on 12/03/18at 03:19; Admin Dose 4 MLS/HR; Start 12/02/18 at 07:00 Norepinephrine 16 mg/Dextrose 500 ml @ 1.88 mls/hr TITRATE IV Last administered on 12/09/18 20:04; Admin Dose 1.88 MLS/HR; Start 12/02/18 at 09:30 Fentanyl 100 ml @ 2.5 mls/hr TITRATE IV Last administered on 12/11/18 19:59; Admin Dose 7.5 MLS/HR; Start 12/02/18 at 10:30 Acetaminophen (Tylenol Tab) 650 mg Q4H PRN PO mild pain Last administered on 12/05/18at 01:13; Admin Dose 650 MG; Start 12/02/18 at 12:00 Morphine Sulfate (morphine) 2 mg Q2H PRN IV moderate to severe pain; Start 12/02/18 at 12:00 Al Hydrox/Mg Hydrox/Simethicone (Mag-Al Plus) 30 ml Q4H PRN PO GASTROINTESTINAL UPSET; Start 12/02/18 at 12:00 Ondansetron HCl (Zofran Inj) 4 mg Q4H PRN IV NAUSEA AND/OR VOMITING Last administered on 12/07/18 23:27; Admin Dose 4 MG; Start 12/02/18 at 12:00 Collagenase (Santyl) 1 applic DAILY TOP Last administered on 12/11/18 09:00; Admin Dose 1 APPLIC; Start 12/03/18 at 14:00 Aspirin (Aspirin) 81 mg DAILY NGT Last administered on 12/11/18 09:00; Admin Dose 81 MG; Start 12/06/18 at 09:00 Heparin Sodium (Porcine) (Heparin (1000 Units/ml)) 4,000 unit AFTER DIALYSIS CATHETER Last administered on 12/10/18at 12:58; Admin Dose 3,000 UNIT; Start 12/08/18 at 09:30 Albumin Human 100 ml @ 100 mls/hr WITH DIALYSIS PRN IV SBP less than 90 mm Hg Last administered on 12/10/18 10:08; Admin Dose 100 MLS/HR; Start 12/08/18 at 09:30 Sodium Chloride (NS) -To prime the dialy... DIRECTED FOR HD PRN IV SBP less than 90 mm Hg; Start 12/08/18 at 09:30 Mannitol 62.5 ml @ 0 mls/hr WITH DIALYSIS PRN IV WITH DIALYSIS Last administered on 12/08/18at 22:03; Admin Dose 60 MLS/HR; Start 12/08/18 at 21:00 Fluconazole (Diflucan) 200 mg DAILY NGT Last administered on 12/11/18at 10:17; Admin Dose 200 MG; Start 12/10/18 at 09:00 RENAN HERNANDEZ MD Dec 11, 2018 21:04
[2018-12-11] MEDS: TAMSULOSIN (SR) 0.4 MG CAP PO SCH (21:33)
[2018-12-11] MEDS: ATORVASTATIN 20 MG TAB PO SCH (21:33)
[2018-12-11] MEDS: DEXTROSE 5%-0.9% NACL 1,000 ML IV SCH (22:43)
[2018-12-12] VITALS (36 sets, daily range): BP systolic 102–130; BP diastolic 53–99; PULSE 66–107; RESP 14–21
[2018-12-12] MEDS: Insulin NOVOLOG SS MILD Algorithm (NPO/TPN/ENTERAL FEEDS) SC SCH ×6 (01:00→21:00)
[2018-12-12] MEDS: ACCU-CHEK XX SCH (02:00)
[2018-12-12] MEDS: PANTOPRAZOLE 40 MG INJ IV SCH (05:34)
[2018-12-12] MEDS: FENTAnyl (DRIP) 1000 mcg/100mL 100 ML IV SCH ×2 (06:31→17:37)
--- NOTE | 2018-12-12 07:05 | NUR ---
Shift Summary Received patient awake and restless in bed, he continuously tries to throw his legs out of the bed. Readjusted many times, sedation increased. Ballard in place still minimal urine output. Patient continues on proper plan of care.
[2018-12-12] MEDS: ASPIRIN 325 MG TAB NGT SCH (09:00)
[2018-12-12] MEDS: MULTIVITAMINS THERAPEUTIC TAB PO SCH (09:38)
[2018-12-12] MEDS: CALCIUM/VITAMIN D (500/200) TAB PO SCH (09:38)
[2018-12-12] MEDS: BALSAM PERU/CASTOR OIL 60 GM TUBE TOP SCH ×2 (09:38→21:45)
[2018-12-12] MEDS: ESCITALOPRAM 10 MG TAB PO SCH (09:38)
[2018-12-12] MEDS: FLUCONAZOLE 200 MG TAB NGT SCH (09:38)
[2018-12-12] MEDS: LORATADINE 10 MG TAB PO SCH (09:38)
[2018-12-12] MEDS: ARIPIPRAZOLE 5 MG TAB PO SCH (09:38)
[2018-12-12] MEDS: COLLAGENASE 5 GM (UD JAR) TOP SCH (09:38)
--- NOTE | 2018-12-12 09:51 | CONS ---
Date/Time of Note Date/Time of Note DATE: 12/12/18 TIME: 09:49 Assessment/Plan Assessment/Plan Assessment/Plan 1. Non-ST elevation myocardial infarction, currently down trending cardiac enzymes likely a type 2 demand infarct in the setting of fevers, hypercarbic respiratory failure.-downtrended cardiac enzymes. NO cp. Echo this admit 11/24 with NL EF 55%. Now s/p LHC 12/02 with no sig major epicardial obstructive cad. LVEDP 21 - No CP - no intervention currently planned 2. Abnormal electrocardiogram- r/o SD. 3. Right bundle branch block - stable by tele. 4. Colonic mass s/p stent placement - GI follows. NO surgery planned. 5. Anemia. 6. Renal failure-worsening- HD to keep euvolemic. 7. Leukocytosis/ Sepsi- BP better with anti_bx. 8. Atrial fibrillation-now in SR- con't rate control. 9. .CHF-diastolic acute on chronic - remove fluid with HD 10. Resp failure s/p intubation - pt agitated - not weaning - might need trach. Result Diagram: 12/12/185 12/12/18 0445 Results 24hrs Laboratory Tests Test 12/11/18 11:09 12/11/18 17:00 12/11/18 21:41 12/11/18 22:01 Bedside Glucose 85 71 63 L 101 Test 12/11/18 22:23 12/12/18 00:42 12/12/18 04:45 12/12/18 05:00 Bedside Glucose 94 75 White Blood Count 7.2 # Red Blood Count 3.31 L Hemoglobin 7.6 L Hematocrit 29.0 L Mean Corpuscular 87.6 Volume Mean Corpuscular 23.0 L Hemoglobin Mean Corpuscular 26.2 L Hemoglobin Concen t Red Cell 28.6 H Distribution Width Platelet Count 234 Mean Platelet Volume Immature 0.300 Granulocytes % Neutrophils % 73.9 Lymphocytes % 12.4 L Monocytes % 8.8 Eosinophils % 4.2 Basophils % 0.4 Nucleated Red 0.0 Blood Cells % Immature 0.020 Granulocytes # Neutrophils # 5.3 Lymphocytes # 0.9 Monocytes # 0.6 Eosinophils # 0.3 Basophils # 0.0 Nucleated Red 0.0 Blood Cells # Sodium Level 139 Potassium Level 4.6 Chloride Level 100 Carbon Dioxide 30 Level Anion Gap 9 Blood Urea 22 H Nitrogen Creatinine 3.01 H Est Glomerular Filtrat Rate mL/min Glucose Level 84 Calcium Level 9.3 Phosphorus Level 4.9 Magnesium Level 2.0 Ammonia 22 Blood Gas Blood arterial Specimen Source Arterial Blood 12/12/2018 4:51:1 Date Drawn 0 AM Arterial Blood pH 7.255 *L (Temp corrected) Arterial Blood 74.3 H pCO2 (Temp correct) Arterial Blood 77.2 L pO2 (Temp corrected) Arterial Blood 32.2 H HCO3 Arterial Blood 3.7 H Base Excess Arterial Blood 94.8 L Oxygen Saturation Nilson Test ACCEPTAB Arterial Blood Right Radial Gas Puncture Site Arterial 1.4 Blood Carboxyhemo globin Arterial Blood 0.4 Methemoglobin Blood Gas A-a O2 122.6 H Differential Oxyhemoglobin 93.1 Percent Blood Gas 37.0 Temperature Blood Gas 16.0 Respiration Rate Blood Gas Actual 16 Respiration Rate Blood Gas VENT - AC Modality FiO2 40.0 Blood Gas Tidal 500.0 Volume Blood Gas Low 5.0 PEEP Setting Blood Gas 27.0 Inspiratory Pressure Blood Gas VERNA Escalante RN Critical Value Read Back Blood Gas KM Notified Whom Blood Gas 12/12/2018 5:12:5 Notified Time 8 AM Test 12/12/18 05:33 Bedside Glucose 78 Consultation Date/Type/Reason Admit Date/Time Nov 23, 2018 at 22:01 Initial Consult Date 11/25/18 Requesting Provider: NAYANA GARCIA 24 HR Interval Summary Free Text/Dictation NO acute events - pt agitated - not weaning - will likely need trach ROS: No fever, no chills, no nausea, no vomiting, no diarrhea/constipation - per NURSE Exam/Review of Systems Vital Signs Vitals Vital Signs Date Temp Pulse Resp B/P (MAP) Pulse Ox O2 O2 Flow FiO2 Time Delivery Rate 12/12/18 40 08:00 12/12/18 98.5 97 16 127/87 97 Mechanical 08:00 (100) Ventilator Intake and Output 12/11/18 12/11/18 12/12/18 1515:00 23:00 07:00 IntakeIntake Total 41.88 ml 88.8 ml 340 ml OutputOutput Total 1900 ml 25 ml 25 ml BalanceBalance -1858.12 ml 63.8 ml 315 ml Exam General: WN/WD/NAD, AOx 0 HEENT: Unicetric/atraumatic/EOMI (does not follow commands) NECK: JVD elevated, no thyromegaly - intubated Lymph: no lymphadenopathy HEART: regular with no S3, II/ systolic murmur at apex LUNGS: Coarse sounds ABD: soft, NT, ND, +BS : Intact Neuro: non focal SKIN: chronic changes EXT: trace edema Medications Medications Current Medications Acetaminophen (Tylenol Liquid) 650 mg Q6H PRN PO PAIN LEVEL 1-3 OR FEVER Last administered on 12/02/18 02:31; Admin Dose 650 MG; Start 11/23/18 at 22:30 Acetaminophen (Tylenol Supp) 650 mg Q4H PRN [place] PAIN LEVEL 1-3 OR FEVER Last administered on 12/02/18 21:21; Admin Dose 650 MG; Start 11/23/18 at 22:30 Atorvastatin Calcium (Lipitor) 20 mg HS PO Last administered on 12/11/18 21:33; Admin Dose 20 MG; Start 11/24/18 at 21:00 Albuterol/ Ipratropium (Duoneb) 3 ml Q4H RESP THERAPY PRN HHN SHORTNESS OF BREATH; Start 11/24/18 at 09:00 Aripiprazole (Abilify) 5 mg DAILY PO Last administered on 12/12/18 09:38; Admin Dose 5 MG; Start 11/24/18 at 09:30 Digoxin (Digoxin) 0.25 mg DAILY@1300 PO Last administered on 11/26/18 13:41; Admin Dose 0.25 MG; Start 11/24/18 at 13:00; Status Hold Escitalopram Oxalate (Lexapro) 20 mg DAILY PO Last administered on 12/12/18 09:38; Admin Dose 20 MG; Start 11/24/18 at 09:30 Loratadine (Claritin) 10 mg DAILY PO Last administered on 12/12/18 09:38; Admin Dose 10 MG; Start 11/24/18 at 10:00 Multivitamins Therapeutic (Theragran) 1 tab DAILY PO Last administered on 12/12/18 09:38; Admin Dose 1 TAB; Start 11/24/18 at 09:30 Potassium Chloride (Micro-K) 8 meq DAILY PO Last administered on 11/24/18 10 :12; Admin Dose 8 MEQ; Start 11/24/18 at 10:00; Status Hold Tamsulosin HCl (Flomax) 0.4 mg HS PO Last administered on 12/11/18at 21:33; Admin Dose 0.4 MG; Start 11/24/18 at 21:00 Calcium/Vitamin D (Oyster Shell/ Vit-D (500/200)) 1 tab DAILY PO Last administered on 12/12/18at 09:38; Admin Dose 1 TAB; Start 11/24/18 at 09:30 Metoprolol Tartrate (Lopressor) 5 mg Q4H PRN IV HR>110 Hold SBP<100; Start 11/24/18 at 11:00 Diltiazem HCl (Cardizem Sr) 120 mg DAILY PO ; Start 11/25/18 at 14:00; Status Hold IV Flush (NS 10 ml) 10 ml PRN PRN IV IV PROTOCOL; Start 11/25/18 at 16:00 Hydralazine HCl (Apresoline) 25 mg Q8 PO Last administered on 12/09/18at 13:13; Admin Dose 25 MG; Start 11/26/18 at 22:00 Pantoprazole (Protonix Iv) 40 mg DAILY@06 IV Last administered on 12/12/18at 05:34; Admin Dose 40 MG; Start 11/29/18 at 06:00 Diagnostic Test (Pha) (Accu-Chek) 1 ea 02 XX Last administered on 12/10/18at 01:44; Admin Dose 1 EA; Start 12/01/18 at 02:00 Insulin Aspart (Novolog Insulin Pen) (Adult SC Insulin - Mild Algorithm)... Q4 SC Last administered on 12/08/18at 08:46; Admin Dose 1 UNIT; Start 11/30/18 at 09:00 Miscellaneous Information 1 ea NOTE XX ; Start 11/30/18 at 08:00 Glucose (Glutose) 15 gm Q15M PRN PO DECREASED GLUCOSE; Start 11/30/18 at 08:00 Glucose (Glutose) 22.5 gm Q15M PRN PO DECREASED GLUCOSE; Start 11/30/18 at 08:00 Dextrose (D50w Syringe) 25 ml Q15M PRN IV DECREASED GLUCOSE Last administered on 12/11/18at 21:43; Admin Dose 25 ML; Start 11/30/18 at 08:00 Dextrose (D50w Syringe) 50 ml Q15M PRN IV DECREASED GLUCOSE; Start 11/30/18 at 08:00 Glucagon (Glucagen) 1 mg Q15M PRN IM DECREASED GLUCOSE; Start 11/30/18 at 08:00 Glucose (Glutose) 15 gm Q15M PRN BUCCAL DECREASED GLUCOSE; Start 11/30/18 at 08:00 Midazolam HCl 50 ml @ 1 mls/hr TITRATE IV Last administered on 12/03/18at 03:19; Admin Dose 4 MLS/HR; Start 12/02/18 at 07:00 Norepinephrine 16 mg/Dextrose 500 ml @ 1.88 mls/hr TITRATE IV Last administered on 12/09/18at 20:04; Admin Dose 1.88 MLS/HR; Start 12/02/18 at 09:30 Fentanyl 100 ml @ 2.5 mls/hr TITRATE IV Last administered on 12/12/18at 06:31; Admin Dose 10 MLS/HR; Start 12/02/18 at 10:30 Acetaminophen (Tylenol Tab) 650 mg Q4H PRN PO mild pain Last administered on at 01:13; Admin Dose 650 MG; Start 12/02/18 at 12:00 Morphine Sulfate (morphine) 2 mg Q2H PRN IV moderate to severe pain; Start 12/02/18 at 12:00 Al Hydrox/Mg Hydrox/Simethicone (Mag-Al Plus) 30 ml Q4H PRN PO GASTROINTESTINAL UPSET; Start 12/02/18 at 12:00 Ondansetron HCl (Zofran Inj) 4 mg Q4H PRN IV NAUSEA AND/OR VOMITING Last administered on 12/07/18at 23:27; Admin Dose 4 MG; Start 12/02/18 at 12:00 Collagenase (Santyl) 1 applic DAILY TOP Last administered on 12/12/18at 09:38; Admin Dose 1 APPLIC; Start 12/03/18 at 14:00 Aspirin (Aspirin) 81 mg DAILY NGT Last administered on 12/11/18at 09:00; Admin Dose 81 MG; Start 12/06/18 at 09:00 Heparin Sodium (Porcine) (Heparin (1000 Units/ml)) 4,000 unit AFTER DIALYSIS CATHETER Last administered on 12/10/18at 12:58; Admin Dose 3,000 UNIT; Start 12/08/18 at 09:30 Albumin Human 100 ml @ 100 mls/hr WITH DIALYSIS PRN IV SBP less than 90 mm Hg Last administered on 12/10/18at 10:08; Admin Dose 100 MLS/HR; Start 12/08/18 at 09:30 Sodium Chloride (NS) -To prime the dialy... DIRECTED FOR HD PRN IV SBP less than 90 mm Hg; Start 12/08/18 at 09:30 Mannitol 62.5 ml @ 0 mls/hr WITH DIALYSIS PRN IV WITH DIALYSIS Last administered on 12/08/18at 22:03; Admin Dose 60 MLS/HR; Start 12/08/18 at 21:00 Fluconazole (Diflucan) 200 mg DAILY NGT Last administered on 12/12/18 09:38; Admin Dose 200 MG; Start 12/10/18 at 09:00 Dextrose/Sodium Chloride 1,000 ml @ 20 mls/hr Q24H IV Last administered on 12/11/18at 22:43; Admin Dose 20 MLS/HR; Start 12/11/18 at 22:00 SCARLET HARDWICK MD Dec 12, 2018 09:51
--- NOTE | 2018-12-12 10:19 | PN ---
Date/Time of Note Date/Time of Note DATE: 12/12/18 TIME: 10:16 Assessment/Plan VTE Prophylaxis Risk score (from Ns)>0 risk: 10 SCD applied (from Ns): Yes Pharmacological prophylaxis: other Lines/Catheters IV [facility]from [facility] Duong Urinary Cath still in place: Yes Reason Cath still needed: urinary retention Assessment/Plan Hospital Course S: Patient still intubated (did not pass trial yesterday), still off pressor support since early yesterday. Received dialysis yesterday per per nursing staff, no signs of rectal bleeding. O: VS - see below PE: Const: Lying in bed, family at the bedside, intubated Head: Atraumatic, normocephalic Eyes: Normal Conjunctiva, PERRLA, EOMI, normal sclera, no nystagmus ENT: Normal External Ears, Nose and Mouth, moist mucus membranes. Neck: Supple Resp: Some decreased breath sounds in the bases b/l Cardio: Regular rate and rhythm, no murmurs, S1 S2 present Abd: Soft, non tender x 4, slight distention. 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 2D echo November 24, 2018: Conclusions Normal left ventricular systolic function. Normal left ventricular cavity size. Sigmoid septum. Ejection fraction is visually estimated at 55 %. Normal right ventricular systolic function. Moderate enlargement of right ventricle. There is mild enlargement of left atrium. There is mild enlargement of right atrium. Mild mitral leaflet calcification. Mild mitral annular calcification. Trace mitral regurgitation. Normal appearance of the tricuspid valve. There is trace tricuspid regurgitation. Assessment/Plan: 78-year-old male recently diagnosed with new colon mass, who presents with: # Hypoxic and hypercapnic respiratory failure: Appears to be due to pulmonary edema and possible pneumonia- Failed BiPAP, intubated 12/02. Presently still intubated, has failed CPAP trial the last few days. Again now off pressor support since this morning. - Continue Daily weaning trials per pulmonary recommendations # Sepsis: Secondary to likely fungal UTI now, as well upper restaurant infection as well, as UA positive and urine culture showing Rosalie growth greater than 100,000 colony-forming units -For now continue fluconazole, white blood cell count normal, no fevers # Cardiac- elevated troponins: - Got cardiac cath 12/02, clear coronaries. -Continue aspirin and statin for now, follow up cardiology recommendations # Sigmoid mass: Status post biopsy during recent hospitalization. 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 Mass is almost completely obstructive. Patient received rectal stent on December [address] Fang. -Monitor for now, Per discussion between hospitalist and Dr. Juan on 12/01, patient is not currently a surgical candidate due to his acute illness but may get surgery if he improves. -Per hematology oncology, it appears he has localized disease. Per their input, surgical resection is optimal treatment if he ever becomes stable for surgery. They have also stated typically radiation has no role in localized colon ca (radiation can play a role in palliative tx of met colon if painful site of metastatic disease for example). # Atrial fibrillation with RVR - resolved now -Continue to monitor, follow-up cardiology recommendations # Renal insufficiency: Oliguric acute on chronic renal failure. This was likely due to obstructive uropathy Being followed by renal team. Again received PermCath earlier and now on dialysis. -Continue monitor urine output, and continue dialysis per renal recommen dations -Per renal team will next schedule patient for Thursday, Thursday, Thursday dialysis schedule #Hypernatremia -resolved -Monitor for now # Diabetes: Sugar stable, continue insulin while in-house DVT: Heparin GI: PPI Code status: Full. Family wants everything done to treat his multiorgan failure and cancer. Critical care time spent on patient care today equals 40 minutes. Result Diagram: 12/12/18 0445 12/12/18 0445 Results 24hrs Laboratory Tests Test 12/11/18 11:09 12/11/18 17:00 12/11/18 21:41 12/11/18 22:01 Bedside Glucose 85 71 63 L 101 Test 12/11/18 22:23 12/12/18 00:42 12/12/18 04:45 12/12/18 05:00 Bedside Glucose 94 75 White Blood Count 7.2 # Red Blood Count 3.31 L Hemoglobin 7.6 L Hematocrit 29.0 L Mean Corpuscular 87.6 Volume Mean Corpuscular 23.0 L Hemoglobin Mean Corpuscular 26.2 L Hemoglobin Concen t Red Cell 28.6 H Distribution Width Platelet Count 234 Mean Platelet Volume Immature 0.300 Granulocytes % Neutrophils % 73.9 Lymphocytes % 12.4 L Monocytes % 8.8 Eosinophils % 4.2 Basophils % 0.4 Nucleated Red 0.0 Blood Cells % Immature 0.020 Granulocytes # Neutrophils # 5.3 Lymphocytes # 0.9 Monocytes # 0.6 Eosinophils # 0.3 Basophils # 0.0 Nucleated Red 0.0 Blood Cells # Sodium Level 139 Potassium Level 4.6 Chloride Level 100 Carbon Dioxide 30 Level Anion Gap 9 Blood Urea 22 H Nitrogen Creatinine 3.01 H Est Glomerular Filtrat Rate mL/min Glucose Level 84 Calcium Level 9.3 Phosphorus Level 4.9 Magnesium Level 2.0 Ammonia 22 Blood Gas Blood arterial Specimen Source Arterial Blood 12/12/2018 4:51:1 Date Drawn 0 AM Arterial Blood pH 7.255 *L (Temp corrected) Arterial Blood 74.3 H pCO2 (Temp correct) Arterial Blood 77.2 L pO2 (Temp corrected) Arterial Blood 32.2 H HCO3 Arterial Blood 3.7 H Base Excess Arterial Blood 94.8 L Oxygen Saturation Nilson Test ACCEPTAB Arterial Blood Right Radial Gas Puncture Site Arterial 1.4 Blood Carboxyhemo globin Arterial Blood 0.4 Methemoglobin Blood Gas A-a O2 122.6 H Differential Oxyhemoglobin 93.1 Percent Blood Gas 37.0 Temperature Blood Gas 16.0 Respiration Rate Blood Gas Actual 16 Respiration Rate Blood Gas VENT - AC Modality FiO2 40.0 Blood Gas Tidal 500.0 Volume Blood Gas Low 5.0 PEEP Setting Blood Gas 27.0 Inspiratory Pressure Blood Gas VERNA Escalante RN Critical Value Read Back Blood Gas Notified Whom Blood Gas 12/12/2018 5:12:5 Notified Time 8 AM Test 12/12/18 05:33 12/12/18 09:50 Bedside Glucose 78 80 Exam/Review of Systems Vital Signs Vitals Vital Signs Date Temp Pulse Resp B/P (MAP) Pulse Ox O2 O2 Flow FiO2 Time Delivery Rate 12/12/18 40 08:00 12/12/18 98.5 97 16 127/87 97 Mechanical 08:00 (100) Ventilator Intake and Output 12/11/18 12/11/18 12/12/18 1515:00 23:00 07:00 IntakeIntake Total 41.88 ml 88.8 ml 340 ml OutputOutput Total 1900 ml 25 ml 25 ml BalanceBalance -1858.12 ml 63.8 ml 315 ml Medications Medications Current Medications Acetaminophen (Tylenol Liquid) 650 mg Q6H PRN PO PAIN LEVEL 1-3 OR FEVER Last administered on 12/02/18 02:31; Admin Dose 650 MG; Start 11/23/18 at 22:30 Acetaminophen (Tylenol Supp) 650 mg Q4H PRN ID PAIN LEVEL 1-3 OR FEVER Last administered on 12/02/18 21:21; Admin Dose 650 MG; Start 11/23/18 at 22:30 Atorvastatin Calcium (Lipitor) 20 mg HS PO Last administered on 12/11/18 21:33; Admin Dose 20 MG; Start 11/24/18 at 21:00 Albuterol/ Ipratropium (Duoneb) 3 ml Q4H RESP THERAPY PRN HHN SHORTNESS OF BREATH; Start 11/24/18 at 09:00 Aripiprazole (Abilify) 5 mg DAILY PO Last administered on 12/12/18 09:38; Admin Dose 5 MG; Start 11/24/18 at 09:30 Digoxin (Digoxin) 0.25 mg DAILY@1300 PO Last administered on 11/26/18 13:41; Admin Dose 0.25 MG; Start 11/24/18 at 13:00; Status Hold Escitalopram Oxalate (Lexapro) 20 mg DAILY PO Last administered on 12/12/18 09:38; Admin Dose 20 MG; Start 11/24/18 at 09:30 Loratadine (Claritin) 10 mg DAILY PO Last administered on 12/12/18 09:38; Admin Dose 10 MG; Start 11/24/18 at 10:00 Multivitamins Therapeutic (Theragran) 1 tab DAILY PO Last administered on 12/12/18 09:38; Admin Dose 1 TAB; Start 11/24/18 at 09:30 Potassium Chloride (Micro-K) 8 meq DAILY PO Last administered on 11/24/18at 10:12; Admin Dose 8 MEQ; Start 11/24/18 at 10:00; Status Hold Tamsulosin HCl (Flomax) 0.4 mg HS PO Last administered on 12/11/18at 21:33; Admin Dose 0.4 MG; Start 11/24/18 at 21:00 Calcium/Vitamin D (Oyster Shell/ Vit-D (500/200)) 1 tab DAILY PO Last administered on 12/12/18at 09:38; Admin Dose 1 TAB; Start 11/24/18 at 09:30 Metoprolol Tartrate (Lopressor) 5 mg Q4H PRN IV HR>110 Hold SBP<100; Start 11/24/18 at 11:00 Diltiazem HCl (Cardizem Sr) 120 mg DAILY PO ; Start 11/25/18 at 14:00; Status Hold IV Flush (NS 10 ml) 10 ml PRN PRN IV IV PROTOCOL; Start 11/25/18 at 16:00 Hydralazine HCl (Apresoline) 25 mg Q8 PO Last administered on 12/09/18at 13:13; Admin Dose 25 MG; Start 11/26/18 at 22:00 Pantoprazole (Protonix Iv) 40 mg DAILY@06 IV Last administered on 12/12/18at 05:34; Admin Dose 40 MG; Start 11/29/18 at 06:00 Diagnostic Test (Pha) (Accu-Chek) 1 ea 02 XX Last administered on 12/10/18at 01:44; Admin Dose 1 EA; Start 12/01/18 at 02:00 Insulin Aspart (Novolog Insulin Pen) (Adult SC Insulin - Mild Algorithm)... Q4 SC Last administered on 12/08/18at 08:46; Admin Dose 1 UNIT; Start 11/30/18 at 09:00 Miscellaneous Information 1 ea NOTE XX ; Start 11/30/18 at 08:00 Glucose (Glutose) 15 gm Q15M PRN PO DECREASED GLUCOSE; Start 11/30/18 at 08:00 Glucose (Glutose) 22.5 gm Q15M PRN PO DECREASED GLUCOSE; Start 11/30/18 at 08:00 Dextrose (D50w Syringe) 25 ml Q15M PRN IV DECREASED GLUCOSE Last administered on 12/11/18at 21:43; Admin Dose 25 ML; Start 11/30/18 at 08:00 Dextrose (D50w Syringe) 50 ml Q15M PRN IV DECREASED GLUCOSE; Start 11/30/18 at 08:00 Glucagon (Glucagen) 1 mg Q15M PRN IM DECREASED GLUCOSE; Start 11/30/18 at 08:00 Glucose (Glutose) 15 gm Q15M PRN BUCCAL DECREASED GLUCOSE; Start 11/30/18 at 08:00 Midazolam HCl 50 ml @ 1 mls/hr TITRATE IV Last administered on 12/03/18at 03:19; Admin Dose 4 MLS/HR; Start 12/02/18 at 07:00 Norepinephrine 16 mg/Dextrose 500 ml @ 1.88 mls/hr TITRATE IV Last administere d on 12/09/18at 20:04; Admin Dose 1.88 MLS/HR; Start 12/02/18 at 09:30 Fentanyl 100 ml @ 2.5 mls/hr TITRATE IV Last administered on 12/12/18at 06:31; Admin Dose 10 MLS/HR; Start 12/02/18 at 10:30 Acetaminophen (Tylenol Tab) 650 mg Q4H PRN PO mild pain Last administered on 12/05/18at 01:13; Admin Dose 650 MG; Start 12/02/18 at 12:00 Morphine Sulfate (morphine) 2 mg Q2H PRN IV moderate to severe pain; Start 12/02/18 at 12:00 Al Hydrox/Mg Hydrox/Simethicone (Mag-Al Plus) 30 ml Q4H PRN PO GASTROINTESTINAL UPSET; Start 12/02/18 at 12:00 Ondansetron HCl (Zofran Inj) 4 mg Q4H PRN IV NAUSEA AND/OR VOMITING Last administered on 12/07/18at 23:27; Admin Dose 4 MG; Start 12/02/18 at 12:00 Collagenase (Santyl) 1 applic DAILY TOP Last administered on 12/12/18at 09:38; Admin Dose 1 APPLIC; Start 12/03/18 at 14:00 Aspirin (Aspirin) 81 mg DAILY NGT Last administered on 12/11/18at 09:00; Admin Dose 81 MG; Start 12/06/18 at 09:00 Heparin Sodium (Porcine) (Heparin (1000 Units/ml)) 4,000 unit AFTER DIALYSIS CATHETER Last administered on 12/10/18at 12:58; Admin Dose 3,000 UNIT; Start 12/08/18 at 09:30 Albumin Human 100 ml @ 100 mls/hr WITH DIALYSIS PRN IV SBP less than 90 mm Hg Last administered on 12/10/18at 10:08; Admin Dose 100 MLS/HR; Start 12/08/18 at 09:30 Sodium Chloride (NS) -To prime the dialy... DIRECTED FOR HD PRN IV SBP less than 90 mm Hg; Start 12/08/18 at 09:30 Mannitol 62.5 ml @ 0 mls/hr WITH DIALYSIS PRN IV WITH DIALYSIS Last administered on 12/08/18at 22:03; Admin Dose 60 MLS/HR; Start 12/08/18 at 21:00 Fluconazole (Diflucan) 200 mg DAILY NGT Last administered on 12/12/18at 09:38; Admin Dose 200 MG; Start 12/10/18 at 09:00 Dextrose/Sodium Chloride 1,000 ml @ 20 mls/hr Q24H IV Last administered on 12/11/18at 22:43; Admin Dose 20 MLS/HR; Start 12/11/18 at 22:00 NAYANA GARCIA Dec 12, 2018 10:19
[2018-12-12] MEDS ORDERED: LORAZEPAM 2 MG INJ IV PRN (10:30)
--- NOTE | 2018-12-12 10:34 | CONS ---
Date/Time of Note Date/Time of Note DATE: 12/12/18 TIME: 10:34 Assessment/Plan Assessment/Plan Assessment/Plan 1. Oliguric Acute on chronic renal failure due to Sepsis and Hemodynamics + obstructive uropathy - Worsening causing uremic encephalopathy 2. atrial fibrillation with RVR- now rate controlled 3. acute hypoxemic and hypercapnic resp failure due to PNA - failed BIPAP; intubated 4. Sepsis 5. Positive troponin 6. BPH on flomax 7. Colon CA Plan: Started on HD on 12/08/18- s/p HD x 4 days in row, HD ordered for tomorrow , will keep pt on MWF schedule from now. BUN/Cr improved to 22/3.01 with serial HDs. S/p LHC which showed moderate Nonobstructive CAD - medical management SP Colonoscopy with stent placement by GI Full code d/w pt son at bedside -still want to keep his dad Full code and want to aggressive care if needed will follow up Result Diagram: 12/12/18 0445 12/12/18 0445 Results 24hrs Laboratory Tests Test 12/11/18 11:09 12/11/18 17:00 12/11/18 21:41 12/11/18 22:01 Bedside Glucose 85 71 63 L 101 Test 12/11/18 22:23 12/12/18 00:42 12/12/18 04:45 12/12/18 05:00 Bedside Glucose 94 75 White Blood Count 7.2 # Red Blood Count 3.31 L Hemoglobin 7.6 L Hematocrit 29.0 L Mean Corpuscular 87.6 Volume Mean Corpuscular 23.0 L Hemoglobin Mean Corpuscular 26.2 L Hemoglobin Concen t Red Cell 28.6 H Distribution Width Platelet Count 234 Mean Platelet Volume Immature 0.300 Granulocytes % Neutrophils % 73.9 Lymphocytes % 12.4 L Monocytes % 8.8 Eosinophils % 4.2 Basophils % 0.4 Nucleated Red 0.0 Blood Cells % Immature 0.020 Granulocytes # Neutrophils # 5.3 Lymphocytes # 0.9 Monocytes # 0.6 Eosinophils # 0.3 Basophils # 0.0 Nucleated Red 0.0 Blood Cells # Sodium Level 139 Potassium Level 4.6 Chloride Level 100 Carbon Dioxide 30 Level Anion Gap 9 Blood Urea 22 H Nitrogen Creatinine 3.01 H Est Glomerular Filtrat Rate mL/min Glucose Level 84 Calcium Level 9.3 Phosphorus Level 4.9 Magnesium Level 2.0 Ammonia 22 Blood Gas Blood arterial Specimen Source Arterial Blood 12/12/2018 4:51:1 Date Drawn 0 AM Arterial Blood pH 7.255 *L (Temp corrected) Arterial Blood 74.3 H pCO2 (Temp correct) Arterial Blood 77.2 L pO2 (Temp corrected) Arterial Blood 32.2 H HCO3 Arterial Blood 3.7 H Base Excess Arterial Blood 94.8 L Oxygen Saturation Nilson Test ACCEPTAB Arterial Blood Right Radial Gas Puncture Site Arterial 1.4 Blood Carboxyhemo globin Arterial Blood 0.4 Methemoglobin Blood Gas A-a O2 122.6 H Differential Oxyhemoglobin 93.1 Percent Blood Gas 37.0 Temperature Blood Gas 16.0 Respiration Rate Blood Gas Actual 16 Respiration Rate Blood Gas VENT - AC Modality FiO2 40.0 Blood Gas Tidal 500.0 Volume Blood Gas Low 5.0 PEEP Setting Blood Gas 27.0 Inspiratory Pressure Blood Gas VERNA Escalante RN Critical Value Read Back Blood Gas KM Notified Whom Blood Gas 12/12/2018 5:12:5 Notified Time 8 AM Test 12/12/18 05:33 12/12/18 09:50 Bedside Glucose 78 80 Consultation Date/Type/Reason Admit Date/Time Nov 23, 2018 at 22:01 Initial Consult Date 11/24/18 Type of Consult NEPHROLOGY Requesting Provider: NAYANA GARCIA 24 HR Interval Summary Free Text/Dictation pt remained sedated on ventilator, HD ordered for Thursday Exam/Review of Systems Vital Signs Vitals Vital Signs Date Temp Pulse Resp B/P (MAP) Pulse Ox O2 O2 Flow FiO2 Time Delivery Rate 12/12/18 40 08:00 12/12/18 98.5 97 16 127/87 97 Mechanical 08:00 (100) Ventilator Intake and Output 12/11/18 12/11/18 12/12/18 1515:00 23:00 07:00 IntakeIntake Total 41.88 ml 88.8 ml 340 ml OutputOutput Total 1900 ml 25 ml 25 ml BalanceBalance -1858.12 ml 63.8 ml 315 ml Exam Constitutional: moderate distress, intubated on ventilator, ET tube in place Respiratory: Bilateral coarse BS+, basilar crackles Cardiovascular: regular rate and rhythm, nl pulses Gastrointestinal: soft, non-tender Musculoskeletal: 1-2+ pitting edema , + hess catheter Neurological: Uncooperative for neuro exam Medications Medications Current Medications Acetaminophen (Tylenol Liquid) 650 mg Q6H PRN PO PAIN LEVEL 1-3 OR FEVER Last administered on 12/02/18 02:31; Admin Dose 650 MG; Start 11/23/18 at 22:30 Acetaminophen (Tylenol Supp) 650 mg Q4H PRN DC PAIN LEVEL 1-3 OR FEVER Last ad ministered on 12/02/18 21:21; Admin Dose 650 MG; Start 11/23/18 at 22:30 Atorvastatin Calcium (Lipitor) 20 mg HS PO Last administered on 12/11/18 21:33; Admin Dose 20 MG; Start 11/24/18 at 21:00 Albuterol/ Ipratropium (Duoneb) 3 ml Q4H RESP THERAPY PRN HHN SHORTNESS OF BREATH; Start 11/24/18 at 09:00 Aripiprazole (Abilify) 5 mg DAILY PO Last administered on 12/12/18 09:38; Admin Dose 5 MG; Start 11/24/18 at 09:30 Digoxin (Digoxin) 0.25 mg DAILY@1300 PO Last administered on 11/26/18 13:41; Admin Dose 0.25 MG; Start 11/24/18 at 13:00; Status Hold Escitalopram Oxalate (Lexapro) 20 mg DAILY PO Last administered on 12/12/18 09:38; Admin Dose 20 MG; Start 11/24/18 at 09:30 Loratadine (Claritin) 10 mg DAILY PO Last administered on 12/12/18 09:38; Admin Dose 10 MG; Start 11/24/18 at 10:00 Multivitamins Therapeutic (Theragran) 1 tab DAILY PO Last administered on 12/12/18 09:38; Admin Dose 1 TAB; Start 11/24/18 at 09:30 Potassium Chloride (Micro-K) 8 meq DAILY PO Last administered on 11/24/18 10:12; Admin Dose 8 MEQ; Start 11/24/18 at 10:00; Status Hold Tamsulosin HCl (Flomax) 0.4 mg HS PO Last administered on 12/11/18 21:33; Admin Dose 0.4 MG; Start 11/24/18 at 21:00 Calcium/Vitamin D (Oyster Shell/ Vit-D (500/200)) 1 tab DAILY PO Last administered on 12/12/18at 09:38; Admin Dose 1 TAB; Start 11/24/18 at 09:30 Metoprolol Tartrate (Lopressor) 5 mg Q4H PRN IV HR>110 Hold SBP<100; Start 11/24/18 at 11:00 Diltiazem HCl (Cardizem Sr) 120 mg DAILY PO ; Start 11/25/18 at 14:00; Status Hold IV Flush (NS 10 ml) 10 ml PRN PRN IV IV PROTOCOL; Start 11/25/18 at 16:00 Hydralazine HCl (Apresoline) 25 mg Q8 PO Last administered on 12/09/18at 13:13; Admin Dose 25 MG; Start 11/26/18 at 22:00 Pantoprazole (Protonix Iv) 40 mg DAILY@06 IV Last administered on 12/12/18at 05:34; Admin Dose 40 MG; Start 11/29/18 at 06:00 Diagnostic Test (Pha) (Accu-Chek) 1 ea 02 XX Last administered on 12/10/18at 01:44; Admin Dose 1 EA; Start 12/01/18 at 02:00 Insulin Aspart (Novolog Insulin Pen) (Adult SC Insulin - Mild Algorithm)... Q4 SC Last administered on 12/08/18at 08:46; Admin Dose 1 UNIT; Start 11/30/18 at 09:00 Miscellaneous Information 1 ea NOTE XX ; Start 11/30/18 at 08:00 Glucose (Glutose) 15 gm Q15M PRN PO DECREASED GLUCOSE; Start 11/30/18 at 08:00 Glucose (Glutose) 22.5 gm Q15M PRN PO DECREASED GLUCOSE; Start 11/30/18 at 08:00 Dextrose (D50w Syringe) 25 ml Q15M PRN IV DECREASED GLUCOSE Last administered on 12/11/18at 21:43; Admin Dose 25 ML; Start 11/30/18 at 08:00 Dextrose (D50w Syringe) 50 ml Q15M PRN IV DECREASED GLUCOSE; Start 11/30/18 at 08:00 Glucagon (Glucagen) 1 mg Q15M PRN IM DECREASED GLUCOSE; Start 11/30/18 at 08:00 Glucose (Glutose) 15 gm Q15M PRN BUCCAL DECREASED GLUCOSE; Start 11/30/18 at 08:00 Midazolam HCl 50 ml @ 1 mls/hr TITRATE IV Last administered on 12/03/18 03:19; Admin Dose 4 MLS/HR; Start 12/02/18 at 07:00 Norepinephrine 16 mg/Dextrose 500 ml @ 1.88 mls/hr TITRATE IV Last administered on 12/09/18 20:04; Admin Dose 1.88 MLS/HR; Start 12/02/18 at 09:30 Fentanyl 100 ml @ 2.5 mls/hr TITRATE IV Last administered on 12/12/18 06:31; Admin Dose 10 MLS/HR; Start 12/02/18 at 10:30 Acetaminophen (Tylenol Tab) 650 mg Q4H PRN PO mild pain Last administered on 12/05/18 01:13; Admin Dose 650 MG; Start 12/02/18 at 12:00 Morphine Sulfate (morphine) 2 mg Q2H PRN IV moderate to severe pain; Start 12/02/18 at 12:00 Al Hydrox/Mg Hydrox/Simethicone (Mag-Al Plus) 30 ml Q4H PRN PO GASTROINTESTINAL UPSET; Start 12/02/18 at 12:00 Ondansetron HCl (Zofran Inj) 4 mg Q4H PRN IV NAUSEA AND/OR VOMITING Last administered on 12/07/18 23:27; Admin Dose 4 MG; Start 12/02/18 at 12:00 Collagenase (Santyl) 1 applic DAILY TOP Last administered on 12/12/18 09:38; Admin Dose 1 APPLIC; Start 12/03/18 at 14:00 Aspirin (Aspirin) 81 mg DAILY NGT Last administered on 12/11/18 09:00; Admin Dose 81 MG; Start 12/06/18 at 09:00 Heparin Sodium (Porcine) (Heparin (1000 Units/ml)) 4,000 unit AFTER DIALYSIS CATHETER Last administered on 12/10/18 12:58; Admin Dose 3,000 UNIT; Start 12/08/18 at 09:30 Albumin Human 100 ml @ 100 mls/hr WITH DIALYSIS PRN IV SBP less than 90 mm Hg Last administered on 12/10/18 10:08; Admin Dose 100 MLS/HR; Start 12/08/18 at 09:30 Sodium Chloride (NS) -To prime the dialy... DIRECTED FOR HD PRN IV SBP less than 90 mm Hg; Start 12/08/18 at 09:30 Mannitol 62.5 ml @ 0 mls/hr WITH DIALYSIS PRN IV WITH DIALYSIS Last administered on 12/08/18at 22:03; Admin Dose 60 MLS/HR; Start 12/08/18 at 21:00 Fluconazole (Diflucan) 200 mg DAILY NGT Last administered on 12/12/18at 09:38; Admin Dose 200 MG; Start 12/10/18 at 09:00 Dextrose/Sodium Chloride 1,000 ml @ 20 mls/hr Q24H IV Last administered on 12/11/18at 22:43; Admin Dose 20 MLS/HR; Start 12/11/18 at 22:00 Lorazepam (Ativan) 1 mg Q6H PRN IV AGITATION/ANXIETY; Start 12/12/18 at 10:30; Status RENAN SPEAR MD Dec 12, 2018 10:34
--- NOTE | 2018-12-12 11:08 | CONS ---
Date/Time of Note Date/Time of Note DATE: 12/12/18 TIME: 11:06 Consult Date/Type/Reason Admit Date/Time Nov 23, 2018 at 22:01 Initial Consult Date 11/25/18 Type of Consultation: Pulm/CCM Requesting Provider: NAYANA GARCIA Subjective No events overnight. Sedated on the vent. Objective Vital Signs Date Temp Pulse Resp B/P (MAP) Pulse Ox O2 O2 Flow FiO2 Time Delivery Rate 12/12/18 40 08:00 12/12/18 98.5 97 16 127/87 97 Mechanical 08:00 (100) Ventilator Intake and Output 12/11/18 12/11/18 12/12/18 1515:00 23:00 07:00 IntakeIntake Total 41.88 ml 88.8 ml 340 ml OutputOutput Total 1900 ml 25 ml 25 ml BalanceBalance -1858.12 ml 63.8 ml 315 ml Exam HEENT: Neck supple; no JVD; no LAD; + ET tube CVS: Irreg, S1 and S2 CHEST: Coarse BS and rhonchi B/L ABD: Soft, NT, + BS EXT: No c/c; +tr edema Results/Medications Result Diagram: 12/12/185 12/12/18 0445 Results 24 hrs Laboratory Tests Test 12/11/18 11:09 12/11/18 17:00 12/11/18 21:41 12/11/18 22:01 Bedside Glucose 85 71 63 L 101 Test 12/11/18 22:23 12/12/18 00:42 12/12/18 04:45 12/12/18 05:00 Bedside Glucose 94 75 White Blood Count 7.2 # Red Blood Count 3.31 L Hemoglobin 7.6 L Hematocrit 29.0 L Mean Corpuscular 87.6 Volume Mean Corpuscular 23.0 L Hemoglobin Mean Corpuscular 26.2 L Hemoglobin Concen t Red Cell 28.6 H Distribution Width Platelet Count 234 Mean Platelet Volume Immature 0.300 Granulocytes % Neutrophils % 73.9 Lymphocytes % 12.4 L Monocytes % 8.8 Eosinophils % 4.2 Basophils % 0.4 Nucleated Red 0.0 Blood Cells % Immature 0.020 Granulocytes # Neutrophils # 5.3 Lymphocytes # 0.9 Monocytes # 0.6 Eosinophils # 0.3 Basophils # 0.0 Nucleated Red 0.0 Blood Cells # Sodium Level 139 Potassium Level 4.6 Chloride Level 100 Carbon Dioxide 30 Level Anion Gap 9 Blood Urea 22 H Nitrogen Creatinine 3.01 H Est Glomerular Filtrat Rate mL/min Glucose Level 84 Calcium Level 9.3 Phosphorus Level 4.9 Magnesium Level 2.0 Ammonia 22 Blood Gas Blood arterial Specimen Source Arterial Blood 12/12/2018 4:51:1 Date Drawn 0 AM Arterial Blood pH 7.255 *L (Temp corrected) Arterial Blood 74.3 H pCO2 (Temp correct) Arterial Blood 77.2 L pO2 (Temp corrected) Arterial Blood 32.2 H HCO3 Arterial Blood 3.7 H Base Excess Arterial Blood 94.8 L Oxygen Saturation Nilson Test ACCEPTAB Arterial Blood Right Radial Gas Puncture Site Arterial 1.4 Blood Carboxyhemo globin Arterial Blood 0.4 Methemoglobin Blood Gas A-a O2 122.6 H Differential Oxyhemoglobin 93.1 Percent Blood Gas 37.0 Temperature Blood Gas 16.0 Respiration Rate Blood Gas Actual 16 Respiration Rate Blood Gas VENT - AC Modality FiO2 40.0 Blood Gas Tidal 500.0 Volume Blood Gas Low 5.0 PEEP Setting Blood Gas 27.0 Inspiratory Pressure Blood Gas CVERNA RN Critical Value Read Back Blood Gas KM Notified Whom Blood Gas 12/12/2018 5:12:5 Notified Time 8 AM Test 12/12/18 05:33 12/12/18 09:50 Bedside Glucose 78 80 Medications Current Medications Acetaminophen (Tylenol Liquid) 650 mg Q6H PRN PO PAIN LEVEL 1-3 OR FEVER Last administered on 12/02/18at 02:31; Admin Dose 650 MG; Start 11/23/18 at 22:30 Acetaminophen (Tylenol Supp) 650 mg Q4H PRN IN PAIN LEVEL 1-3 OR FEVER Last administered on 12/02/18at 21:21; Admin Dose 650 MG; Start 11/23/18 at 22:30 Atorvastatin Calcium (Lipitor) 20 mg HS PO Last administered on 12/11/18at 21:33; Admin Dose 20 MG; Start 11/24/18 at 21:00 Albuterol/ Ipratropium (Duoneb) 3 ml Q4H RESP THERAPY PRN HHN SHORTNESS OF BREATH; Start 11/24/18 at 09:00 Aripiprazole (Abilify) 5 mg DAILY PO Last administered on 12/12/18at 09:38; Admin Dose 5 MG; Start 11/24/18 at 09:30 Digoxin (Digoxin) 0.25 mg DAILY@1300 PO Last administered on 11/26/18 13:41; Admin Dose 0.25 MG; Start 11/24/18 at 13:00; Status Hold Escitalopram Oxalate (Lexapro) 20 mg DAILY PO Last administered on 12/12/18 09:38; Admin Dose 20 MG; Start 11/24/18 at 09:30 Loratadine (Claritin) 10 mg DAILY PO Last administered on 12/12/18 09:38; Adm in Dose 10 MG; Start 11/24/18 at 10:00 Multivitamins Therapeutic (Theragran) 1 tab DAILY PO Last administered on 12/12/18 09:38; Admin Dose 1 TAB; Start 11/24/18 at 09:30 Potassium Chloride (Micro-K) 8 meq DAILY PO Last administered on 11/24/18 10:12; Admin Dose 8 MEQ; Start 11/24/18 at 10:00; Status Hold Tamsulosin HCl (Flomax) 0.4 mg HS PO Last administered on 12/11/18 21:33; Admin Dose 0.4 MG; Start 11/24/18 at 21:00 Calcium/Vitamin D (Oyster Shell/ Vit-D (500/200)) 1 tab DAILY PO Last adm inistered on 12/12/18 09:38; Admin Dose 1 TAB; Start 11/24/18 at 09:30 Metoprolol Tartrate (Lopressor) 5 mg Q4H PRN IV HR>110 Hold SBP<100; Start 11/24/18 at 11:00 Diltiazem HCl (Cardizem Sr) 120 mg DAILY PO ; Start 11/25/18 at 14:00; Status Hold IV Flush (NS 10 ml) 10 ml PRN PRN IV IV PROTOCOL; Start 11/25/18 at 16:00 Hydralazine HCl (Apresoline) 25 mg Q8 PO Last administered on 12/09/18 13:13; Admin Dose 25 MG; Start 11/26/18 at 22:00 Pantoprazole (Protonix Iv) 40 mg DAILY@06 IV Last administered on 12/12/18 05:34; Admin Dose 40 MG; Start 11/29/18 at 06:00 Diagnostic Test (Pha) (Accu-Chek) 1 ea 02 XX Last administered on 12/10/18at 01:44; Admin Dose 1 EA; Start 12/01/18 at 02:00 Insulin Aspart (Novolog Insulin Pen) (Adult SC Insulin - Mild Algorithm)... Q4 SC Last administered on 12/08/18at 08:46; Admin Dose 1 UNIT; Start 11/30/18 at 09:00 Miscellaneous Information 1 ea NOTE XX ; Start 11/30/18 at 08:00 Glucose (Glutose) 15 gm Q15M PRN PO DECREASED GLUCOSE; Start 11/30/18 at 08:00 Glucose (Glutose) 22.5 gm Q15M PRN PO DECREASED GLUCOSE; Start 11/30/18 at 08:00 Dextrose (D50w Syringe) 25 ml Q15M PRN IV DECREASED GLUCOSE Last administered on 12/11/18at 21:43; Admin Dose 25 ML; Start 11/30/18 at 08:00 Dextrose (D50w Syringe) 50 ml Q15M PRN IV DECREASED GLUCOSE; Start 11/30/18 at 08:00 Glucagon (Glucagen) 1 mg Q15M PRN IM DECREASED GLUCOSE; Start 11/30/18 at 08:00 Glucose (Glutose) 15 gm Q15M PRN BUCCAL DECREASED GLUCOSE; Start 11/30/18 at 08:00 Midazolam HCl 50 ml @ 1 mls/hr TITRATE IV Last administered on 12/03/18at 03:19; Admin Dose 4 MLS/HR; Start 12/02/18 at 07:00 Norepinephrine 16 mg/Dextrose 500 ml @ 1.88 mls/hr TITRATE IV Last administered on 12/09/18at 20:04; Admin Dose 1.88 MLS/HR; Start 12/02/18 at 09:30 Fentanyl 100 ml @ 2.5 mls/hr TITRATE IV Last administered on 12/12/18at 06:31; Admin Dose 10 MLS/HR; Start 12/02/18 at 10:30 Acetaminophen (Tylenol Tab) 650 mg Q4H PRN PO mild pain Last administered on 12/05/18at 01:13; Admin Dose 650 MG; Start 12/02/18 at 12:00 Morphine Sulfate (morphine) 2 mg Q2H PRN IV moderate to severe pain; Start 12/02/18 at 12:00 Al Hydrox/Mg Hydrox/Simethicone (Mag-Al Plus) 30 ml Q4H PRN PO GASTROINTESTINAL UPSET; Start 12/02/18 at 12:00 Ondansetron HCl (Zofran Inj) 4 mg Q4H PRN IV NAUSEA AND/OR VOMITING Last administered on 12/07/18 23:27; Admin Dose 4 MG; Start 12/02/18 at 12:00 Collagenase (Santyl) 1 applic DAILY TOP Last administered on 12/12/18 09:38; Admin Dose 1 APPLIC; Start 12/03/18 at 14:00 Aspirin (Aspirin) 81 mg DAILY NGT Last administered on 12/11/18 09:00; Admin Dose 81 MG; Start 12/06/18 at 09:00 Heparin Sodium (Porcine) (Heparin (1000 Units/ml)) 4,000 unit AFTER DIALYSIS CATHETER Last administered on 12/10/18 12:58; Admin Dose 3,000 UNIT; Start 12/08/18 at 09:30 Albumin Human 100 ml @ 100 mls/hr WITH DIALYSIS PRN IV SBP less than 90 mm Hg Last administered on 12/10/18 10:08; Admin Dose 100 MLS/HR; Start 12/08/18 at 09:30 Sodium Chloride (NS) -To prime the dialy... DIRECTED FOR HD PRN IV SBP less than 90 mm Hg; Start 12/08/18 at 09:30 Mannitol 62.5 ml @ 0 mls/hr WITH DIALYSIS PRN IV WITH DIALYSIS Last administered on 12/08/18 22:03; Admin Dose 60 MLS/HR; Start 12/08/18 at 21:00 Fluconazole (Diflucan) 200 mg DAILY NGT Last administered on 12/12/18 09:38; Admin Dose 200 MG; Start 12/10/18 at 09:00 Dextrose/Sodium Chloride 1,000 ml @ 20 mls/hr Q24H IV Last administered on 12/11/18 22:43; Admin Dose 20 MLS/HR; Start 12/11/18 at 22:00 Lorazepam (Ativan) 1 mg Q6H PRN IV AGITATION/ANXIETY Last administered on 12/12/18 10:43; Admin Dose 1 MG; Start 12/12/18 at 10:30 Assessment/Plan Additional Assessment/Plan IMP: 1. Acute on chronic hypoxemic/hypercapnic respiratory failure--most likely due to volume overload +/- pneumonia. Right pleural effusion. Status post thoracentesis. 2. Sigmoid mass, presumed colon cancer with recent severe anemia. Status post stent placement 3. Non-ST elevation myocardial infarction. Status post cardiac cath with no target lesions identified. 4. Atrial fibrillation with rapid ventricular response, now rate controlled 5. Worsening renal failure likely requiring hemodialysis. Likely contrast nephropathy 6. Anemia RECS: 1. Continue efforts to wean as tolerated--> will try in am tomorrow. 2. HD/UF as per Renal 3. Vent support 4. Change vent to Vt targ of 550; continue 5 PEEP. Critical care time 40 minutes KATHY HUTCHINSON MD Dec 12, 2018 11:08
--- NOTE | 2018-12-12 11:45 | NUR ---
[facility] CALLED PER ORDERS CALLED [facility] AND NOTIFIED THEM OF PT'S HD ORDERS FOR TOMORROW, 12/13 AT 0700. CONFIRMATION NUMBER: [id number]
[2018-12-12] MEDS ORDERED: LORAZEPAM 2 MG INJ ONE (15:52)
[2018-12-12] MEDS ORDERED: LORAZEPAM 2 MG INJ IV ONE (16:00)
--- NOTE | 2018-12-12 16:52 | NUR ---
EOSS PT STILL VERY AGITATED AND RESTLESS WITH FENTANYL 100 MCG INFUSING ON THE VENT. SPOKE TO ATTENDING, ORDERS FOR ATIVAN 1MG IV RECEIVED. ADMINISTERED ATIVAN IV X2 TODAY AND PT WAS ABLE TO REST COMFORTABLY ON VENT WITH EXCELLENT VS. UPDATED FAMILY AT THE BEDSIDE. ORDERS FOR HD TOMORROW. CALLED [facility] AND CONFIRMATION NUMBER IN LAST NOTE.
[2018-12-12] MEDS ORDERED: LORAZEPAM 0.5 MG TAB NGT PRN (18:30)
[2018-12-12] MEDS: ATORVASTATIN 20 MG TAB PO SCH (21:44)
[2018-12-12] MEDS: TAMSULOSIN (SR) 0.4 MG CAP PO SCH (21:44)
[2018-12-12] MEDS: DEXTROSE 5%-0.9% NACL 1,000 ML IV SCH (21:48)
[2018-12-12] MEDS: LORAZEPAM 2 MG INJ IV PRN (23:55)
[2018-12-13] VITALS (48 sets, daily range): BP systolic 82–138; BP diastolic 45–111; PULSE 50–109; RESP 15–24
[2018-12-13] MEDS: Insulin NOVOLOG SS MILD Algorithm (NPO/TPN/ENTERAL FEEDS) SC SCH ×6 (01:00→21:00)
[2018-12-13] MEDS: ACCU-CHEK XX SCH (02:00)
[2018-12-13] MEDS: FENTAnyl (DRIP) 1000 mcg/100mL 100 ML IV SCH (03:45)
[2018-12-13] MEDS: PANTOPRAZOLE 40 MG INJ IV SCH (06:24)
[2018-12-13] MEDS: LORAZEPAM 2 MG INJ IV PRN (07:14)
--- NOTE | 2018-12-13 08:12 | CONS ---
Date/Time of Note Date/Time of Note DATE: 12/13/18 TIME: 08:09 Assessment/Plan Assessment/Plan Assessment/Plan 1. Non-ST elevation myocardial infarction, currently down trending cardiac enzymes likely a type 2 demand infarct in the setting of fevers, hypercarbic respiratory failure.-downtrended cardiac enzymes. NO cp. Echo this admit 11/24 with NL EF 55%. Now s/p LHC 12/02 with no sig major epicardial obstructive cad. LVEDP 21 - No CP - no intervention currently planned - no further cardiac intervention planned. 2. Abnormal electrocardiogram- r/o UT. 3. Right bundle branch block - stable by tele. Occasional tachy with agitation. 4. Colonic mass s/p stent placement - GI follows. NO surgery planned. 5. Anemia. 6. Renal failure-worsening- HD to keep euvolemic. Rx as needed. 7. Leukocytosis/ Sepsi- BP better with anti_bx. 8. Atrial fibrillation-now in SR- con't rate control. 9. .CHF-diastolic acute on chronic - remove fluid with HD 10. Resp failure s/p intubation - pt agitated - not weaning - might need trach - likely heading toward trach. Result Diagram: 12/13/18 0436 12/13/18 0436 Results 24hrs Laboratory Tests Test 12/12/18 09:50 12/12/18 13:25 12/12/18 16:20 12/12/18 22:02 Bedside Glucose 80 67 L 71 94 Test 12/13/18 04:30 12/13/18 04:36 12/13/18 05:00 12/13/18 06:27 Lactic Acid Level 0.9 White Blood Count 7.4 Red Blood Count 3.28 L Hemoglobin 7.6 L Hematocrit 27.9 L Mean Corpuscular 85.1 Volume Mean Corpuscular 23.2 L Hemoglobin Mean Corpuscular 27.2 L Hemoglobin Concen t Red Cell 29.0 H Distribution Width Platelet Count 255 Mean Platelet Volume Immature 0.500 H Granulocytes % Neutrophils % 66.3 Lymphocytes % 17.8 Monocytes % 9.5 Eosinophils % 5.4 Basophils % 0.5 Nucleated Red 0.0 Blood Cells % Immature 0.040 H Granulocytes # Neutrophils # 4.9 Lymphocytes # 1.3 Monocytes # 0.7 Eosinophils # 0.4 Basophils # 0.0 Nucleated Red 0.0 Blood Cells # Sodium Level 138 Potassium Level 4.2 Chloride Level 99 Carbon Dioxide 29 Level Anion Gap 10 Blood Urea 29 H Nitrogen Creatinine 4.15 #H Est Glomerular Filtrat Rate mL/min Glucose Level 92 Calcium Level 9.0 Phosphorus Level 4.1 Magnesium Level 1.9 Blood Gas Blood arterial Specimen Source Arterial Blood 12/13/2018 4:40:1 Date Drawn 3 AM Arterial Blood pH 7.345 L (Temp corrected) Arterial Blood 57.9 H pCO2 (Temp correct) Arterial Blood 72.6 L pO2 (Temp corrected) Arterial Blood 30.9 H HCO3 Arterial Blood 4.3 H Base Excess Arterial Blood 94.3 L Oxygen Saturation Nilson Test N/A Arterial Blood Right Brachial Gas Puncture Site Arterial 0.8 Blood Carboxyhemo globin Arterial Blood 0.3 Methemoglobin Blood Gas A-a O2 146.0 H Differential Oxyhemoglobin 93.3 Percent Blood Gas 37.0 Temperature Blood Gas 16.0 Respiration Rate Blood Gas Actual 16 Respiration Rate Blood Gas VENT - AC Modality FiO2 40.0 Blood Gas Tidal 550.0 Volume Blood Gas Low 5.0 PEEP Setting Blood Gas 28.0 Inspiratory Pressure Blood Gas MR Notified Whom Blood Gas 12/13/2018 4:54:4 Notified Time 9 AM Bedside Glucose 84 Consultation Date/Type/Reason Admit Date/Time Nov 23, 2018 at 22:01 Initial Consult Date 11/25/18 Requesting Provider: NAYANA GARCIA 24 HR Interval Summary Free Text/Dictation NO acute events - BP In good range - no CP now - intermittent agitation. ROS: No fever, no chills, no nausea, no vomiting, no diarrhea/constipation - per nurse. Exam/Review of Systems Vital Signs Vitals Vital Signs Date Temp Pulse Resp B/P (MAP) Pulse Ox O2 O2 Flow FiO2 Time Delivery Rate 12/13/18 95 16 126/63 97 07:00 (84) 12/13/18 40 05:13 12/13/18 Mechanical 05:00 Ventilator 12/13/18 98.9 04:00 Intake and Output 12/12/18 12/12/18 12/13/18 1515:00 23:00 07:00 IntakeIntake Total 360 ml 520 ml 580 ml OutputOutput Total 15 ml 20 ml BalanceBalance 360 ml 505 ml 560 ml Exam General: WN/WD/NAD, AOx comfortable now. HEENT: Unicetric/atraumatic/EOMI (does not follow commands) NECK: JVD elevated, no thyromegaly - intubated Lymph: no lymphadenopathy HEART: regular with no S3, II/ systolic murmur at apex LUNGS: Coarse sounds ABD: soft, NT, ND, +BS : Intact Neuro: non focal SKIN: chronic changes EXT: trace edema Medications Medications Current Medications Acetaminophen (Tylenol Liquid) 650 mg Q6H PRN PO PAIN LEVEL 1-3 OR FEVER Last administered on 12/02/18 02:31; Admin Dose 650 MG; Start 11/23/18 at 22:30 Acetaminophen (Tylenol Supp) 650 mg Q4H PRN PA PAIN LEVEL 1-3 OR FEVER Last administered on 12/02/18 21:21; Admin Dose 650 MG; Start 11/23/18 at 22:30 Atorvastatin Calcium (Lipitor) 20 mg HS PO Last administered on 12/12/18 21:44; Admin Dose 20 MG; Start 11/24/18 at 21:00 Albuterol/ Ipratropium (Duoneb) 3 ml Q4H RESP THERAPY PRN HHN SHORTNESS OF BREATH; Start 11/24/18 at 09:00 Aripiprazole (Abilify) 5 mg DAILY PO Last administered on 12/12/18 09:38; Admin Dose 5 MG; Start 11/24/18 at 09:30 Digoxin (Digoxin) 0.25 mg DAILY@1300 PO Last administered on 11/26/18 13:41; Admin Dose 0.25 MG; Start 11/24/18 at 13:00; Status Hold Escitalopram Oxalate (Lexapro) 20 mg DAILY PO Last administered on 12/12/18 09:38; Admin Dose 20 MG; Start 11/24/18 at 09:30 Loratadine (Claritin) 10 mg DAILY PO Last administered on 12/12/18 09:38; Admin Dose 10 MG; Start 11/24/18 at 10:00 Multivitamins Therapeutic (Theragran) 1 tab DAILY PO Last administered on 12/12/18 09:38; Admin Dose 1 TAB; Start 11/24/18 at 09:30 Potassium Chloride (Micro-K) 8 meq DAILY PO Last administered on 11/24/18 10:12; Admin Dose 8 MEQ; Start 11/24/18 at 10:00; Status Hold Tamsulosin HCl (Flomax) 0.4 mg HS PO Last administered on 12/12/18at 21:44; Adm in Dose 0.4 MG; Start 11/24/18 at 21:00 Calcium/Vitamin D (Oyster Shell/ Vit-D (500/200)) 1 tab DAILY PO Last administered on 12/12/18at 09:38; Admin Dose 1 TAB; Start 11/24/18 at 09:30 Metoprolol Tartrate (Lopressor) 5 mg Q4H PRN IV HR>110 Hold SBP<100; Start 11/24/18 at 11:00 Diltiazem HCl (Cardizem Sr) 120 mg DAILY PO ; Start 11/25/18 at 14:00; Status Hold IV Flush (NS 10 ml) 10 ml PRN PRN IV IV PROTOCOL; Start 11/25/18 at 16:00 Hydralazine HCl (Apresoline) 25 mg Q8 PO Last administered on 12/09/18at 13:13; Admin Dose 25 MG; Start 11/26/18 at 22:00 Pantoprazole (Protonix Iv) 40 mg DAILY@06 IV Last administered on 12/13/18at 06:24; Admin Dose 40 MG; Start 11/29/18 at 06:00 Diagnostic Test (Pha) (Accu-Chek) 1 ea 02 XX Last administered on 12/10/18at 01:44; Admin Dose 1 EA; Start 12/01/18 at 02:00 Insulin Aspart (Novolog Insulin Pen) (Adult SC Insulin - Mild Algorithm)... Q4 SC Last administered on 12/08/18at 08:46; Admin Dose 1 UNIT; Start 11/30/18 at 09:00 Miscellaneous Information 1 ea NOTE XX ; Start 11/30/18 at 08:00 Glucose (Glutose) 15 gm Q15M PRN PO DECREASED GLUCOSE; Start 11/30/18 at 08:00 Glucose (Glutose) 22.5 gm Q15M PRN PO DECREASED GLUCOSE; Start 11/30/18 at 08:00 Dextrose (D50w Syringe) 25 ml Q15M PRN IV DECREASED GLUCOSE Last administered on 12/11/18at 21:43; Admin Dose 25 ML; Start 11/30/18 at 08:00 Dextrose (D50w Syringe) 50 ml Q15M PRN IV DECREASED GLUCOSE; Start 11/30/18 at 08:00 Glucagon (Glucagen) 1 mg Q15M PRN IM DECREASED GLUCOSE; Start 11/30/18 at 08:00 Glucose (Glutose) 15 gm Q15M PRN BUCCAL DECREASED GLUCOSE; Start 11/30/18 at 08:00 Midazolam HCl 50 ml @ 1 mls/hr TITRATE IV Last administered on 12/03/18at 03:19; Admin Dose 4 MLS/HR; Start 12/02/18 at 07:00 Norepinephrine 16 mg/Dextrose 500 ml @ 1.88 mls/hr TITRATE IV Last administered on 12/09/18at 20:04; Admin Dose 1.88 MLS/HR; Start 12/02/18 at 09:30 Fentanyl 100 ml @ 2.5 mls/hr TITRATE IV Last administered on 12/13/18at 03:45; Admin Dose 10 MLS/HR; Start 12/02/18 at 10:30 Acetaminophen (Tylenol Tab) 650 mg Q4H PRN PO mild pain Last administered on 12/05/18at 01:13; Admin Dose 650 MG; Start 12/02/18 at 12:00 Morphine Sulfate (morphine) 2 mg Q2H PRN IV moderate to severe pain; Start 12/02/18 at 12:00 Al Hydrox/Mg Hydrox/Simethicone (Mag-Al Plus) 30 ml Q4H PRN PO GASTROINTESTINAL UPSET; Start 12/02/18 at 12:00 Ondansetron HCl (Zofran Inj) 4 mg Q4H PRN IV NAUSEA AND/OR VOMITING Last a dministered on 12/07/18at 23:27; Admin Dose 4 MG; Start 12/02/18 at 12:00 Collagenase (Santyl) 1 applic DAILY TOP Last administered on 12/12/18at 09:38; Admin Dose 1 APPLIC; Start 12/03/18 at 14:00 Aspirin (Aspirin) 81 mg DAILY NGT Last administered on 12/11/18at 09:00; Admin Dose 81 MG; Start 12/06/18 at 09:00 Heparin Sodium (Porcine) (Heparin (1000 Units/ml)) 4,000 unit AFTER DIALYSIS CATHETER Last administered on 12/10/18at 12:58; Admin Dose 3,000 UNIT; Start 12/08/18 at 09:30 Albumin Human 100 ml @ 100 mls/hr WITH DIALYSIS PRN IV SBP less than 90 mm Hg Last administered on 12/10/18at 10:08; Admin Dose 100 MLS/HR; Start 12/08/18 at 09:30 Sodium Chloride (NS) -To prime the dialy... DIRECTED FOR HD PRN IV SBP less than 90 mm Hg; Start 12/08/18 at 09:30 Mannitol 62.5 ml @ 0 mls/hr WITH DIALYSIS PRN IV WITH DIALYSIS Last administered on 12/08/18at 22:03; Admin Dose 60 MLS/HR; Start 12/08/18 at 21:00 Fluconazole (Diflucan) 200 mg DAILY NGT Last administered on 12/12/18at 09:38; Admin Dose 200 MG; Start 12/10/18 at 09:00 Dextrose/Sodium Chloride 1,000 ml @ 20 mls/hr Q24H IV Last administered on 12/12/18at 21:48; Admin Dose 20 MLS/HR; Start 12/11/18 at 22:00 Lorazepam (Ativan) 1 mg Q6H PRN IV AGITATION/ANXIETY Last administered on 12/13/18at 07:14; Admin Dose 1 MG; Start 12/12/18 at 23:20 SCARLET HARDWICK MD Dec 13, 2018 08:12
[2018-12-13] MEDS: ESCITALOPRAM 10 MG TAB PO SCH (08:39)
[2018-12-13] MEDS: ASPIRIN 325 MG TAB NGT SCH (08:39)
[2018-12-13] MEDS: CALCIUM/VITAMIN D (500/200) TAB PO SCH (08:40)
[2018-12-13] MEDS: BALSAM PERU/CASTOR OIL 60 GM TUBE TOP SCH ×2 (08:40→21:42)
[2018-12-13] MEDS: FLUCONAZOLE 200 MG TAB NGT SCH (08:40)
[2018-12-13] MEDS: ARIPIPRAZOLE 5 MG TAB PO SCH (08:40)
[2018-12-13] MEDS: MULTIVITAMINS THERAPEUTIC TAB PO SCH (08:40)
[2018-12-13] MEDS: LORATADINE 10 MG TAB PO SCH (08:40)
[2018-12-13] MEDS: COLLAGENASE 5 GM (UD JAR) TOP SCH (08:40)
--- NOTE | 2018-12-13 09:17 | PN ---
Date/Time of Note Date/Time of Note DATE: 12/13/18 TIME: 09:14 Assessment/Plan VTE Prophylaxis Risk score (from Ns)>0 risk: 9 SCD applied (from Ns): Yes Pharmacological prophylaxis: heparin Lines/Catheters IV Catheter Type (from [facility]): Duong Urinary Cath still in place: Yes Reason Cath still needed: other (indicate) (intubated) Assessment/Plan Assessment/Plan 78-year-old male recently diagnosed with new colon mass, who presents with: # Hypoxic and hypercapnic respiratory failure: Appears to be due to pulmonary edema and possible pneumonia - Failed BiPAP, intubated 12/02. Presently still intubated, has failed CPAP trial the last few days. - Not requiring IV pressors - Continue Daily weaning trials per pulmonary recommendations - Will introduce trach and PEG to family. # Sepsis: - Secondary to likely fungal UTI now, as well upper resp infection as well, as UA positive and urine culture showing Rosalie growth greater than 100,000 colony-forming units - For now continue fluconazole, white blood cell count normal, no fevers # Cardiac- elevated troponins: - Got cardiac cath 12/02, clear coronaries. -Continue aspirin and statin for now # Sigmoid mass: Status post biopsy during recent hospitalization. 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 Mass is almost completely obstructive. Patient received rectal stent on December [address] Fang. -Monitor for now, Per discussion between hospitalist and Dr. Juan on 12/01, patient is not currently a surgical candidate due to his acute illness but may get surgery if he improves. -Per hematology oncology, it appears he has localized disease. Per their input, surgical resection is optimal treatment if he ever becomes stable for surgery. They have also stated typically radiation has no role in localized colon ca (radiation can play a role in palliative tx of met colon if painful site of metastatic disease for example). # Atrial fibrillation with RVR - resolved now -Continue to monitor, follow-up cardiology recommendations # Renal insufficiency: Oliguric acute on chronic renal failure. This was likely due to obstructive uropathy Being followed by renal team. Again received PermCath earlier and now on dialysis. -Continue monitor urine output, and continue dialysis per renal recommendations -Per renal team will next schedule patient for Thursday, Thursday, Thursday dialysis schedule #Hypernatremia -resolved -Monitor for now # Diabetes: Sugar stable, continue insulin while in-house DVT: Heparin GI: PPI Code status: Full. Family wants everything done to treat his multiorgan failure and cancer. Critical care time spent on patient care today equals 40 minutes. Result Diagram: 12/13/18 0436 12/13/18 0436 Results 24hrs Laboratory Tests Test 12/12/18 09:50 12/12/18 13:25 12/12/18 16:20 12/12/18 22:02 Bedside Glucose 80 67 L 71 94 Test 12/13/18 04:30 12/13/18 04:36 12/13/18 05:00 12/13/18 06:27 Lactic Acid Level 0.9 White Blood Count 7.4 Red Blood Count 3.28 L Hemoglobin 7.6 L Hematocrit 27.9 L Mean Corpuscular 85.1 Volume Mean Corpuscular 23.2 L Hemoglobin Mean Corpuscular 27.2 L Hemoglobin Concen t Red Cell 29.0 H Distribution Width Platelet Count 255 Mean Platelet Volume Immature 0.500 H Granulocytes % Neutrophils % 66.3 Lymphocytes % 17.8 Monocytes % 9.5 Eosinophils % 5.4 Basophils % 0.5 Nucleated Red 0.0 Blood Cells % Immature 0.040 H Granulocytes # Neutrophils # 4.9 Lymphocytes # 1.3 Monocytes # 0.7 Eosinophils # 0.4 Basophils # 0.0 Nucleated Red 0.0 Blood Cells # Sodium Level 138 Potassium Level 4.2 Chloride Level 99 Carbon Dioxide 29 Level Anion Gap 10 Blood Urea 29 H Nitrogen Creatinine 4.15 #H Est Glomerular Filtrat Rate mL/min Glucose Level 92 Calcium Level 9.0 Phosphorus Level 4.1 Magnesium Level 1.9 Blood Gas Blood arterial Specimen Source Arterial Blood 12/13/2018 4:40:1 Date Drawn 3 AM Arterial Blood pH 7.345 L (Temp corrected) Arterial Blood 57.9 H pCO2 (Temp correct) Arterial Blood 72.6 L pO2 (Temp corrected) Arterial Blood 30.9 H HCO3 Arterial Blood 4.3 H Base Excess Arterial Blood 94.3 L Oxygen Saturation Nilson Test N/A Arterial Blood Right Brachial Gas Puncture Site Arterial 0.8 Blood Carboxyhemo globin Arterial Blood 0.3 Methemoglobin Blood Gas A-a O2 146.0 H Differential Oxyhemoglobin 93.3 Percent Blood Gas 37.0 Temperature Blood Gas 16.0 Respiration Rate Blood Gas Actual 16 Respiration Rate Blood Gas VENT - AC Modality FiO2 40.0 Blood Gas Tidal 550.0 Volume Blood Gas Low 5.0 PEEP Setting Blood Gas 28.0 Inspiratory Pressure Blood Gas MR Notified Whom Blood Gas 12/13/2018 4:54:4 Notified Time 9 AM Bedside Glucose 84 Subjective 24 Hr Interval Summary Free Text/Dictation No acute overnight events. Patient did not pass weaning trial yesterday. Required IV Ativan overnight and this morning for agitation. Getting HD this morning. Exam/Review of Systems Vital Signs Vitals Vital Signs Date Temp Pulse Resp B/P (MAP) Pulse Ox O2 O2 Flow FiO2 Time Delivery Rate 12/13/18 40 08:00 12/13/18 95 16 126/63 97 07:00 (84) 12/13/18 Mechanical 05:00 Ventilator 12/13/18 98.9 04:00 Intake and Output 12/12/18 12/12/18 12/13/18 1515:00 23:00 07:00 IntakeIntake Total 360 ml 520 ml 610 ml OutputOutput Total 15 ml 20 ml BalanceBalance 360 ml 505 ml 590 ml Exam Const: Lying in bed, intubated Head: Atraumatic, normocephalic Eyes: Normal Conjunctiva, pupils miotic nonreactive, normal sclera, no n ystagmus ENT: Normal External Ears, ET tube in place. Neck: Supple. R IJ line in place. Resp: Mechanical breath sounds bilaterally. Cardio: Regular rate and rhythm, no murmurs, S1 S2 present Abd: Soft, non tender x 4, slight distention. Normal bowel sounds, no guarding or rebound Ext: No cyanosis, or edema. R fem line in place. Medications Medications Current Medications Acetaminophen (Tylenol Liquid) 650 mg Q6H PRN PO PAIN LEVEL 1-3 OR FEVER Last administered on 12/02/18at 02:31; Admin Dose 650 MG; Start 11/23/18 at 22:30 Acetaminophen (Tylenol Supp) 650 mg Q4H PRN [place] PAIN LEVEL 1-3 OR FEVER Last administered on 12/02/18at 21:21; Admin Dose 650 MG; Start 11/23/18 at 22:30 Atorvastatin Calcium (Lipitor) 20 mg HS PO Last administered on 12/12/18 21:44; Admin Dose 20 MG; Start 11/24/18 at 21:00 Albuterol/ Ipratropium (Duoneb) 3 ml Q4H RESP THERAPY PRN HHN SHORTNESS OF BREATH; Start 11/24/18 at 09:00 Aripiprazole (Abilify) 5 mg DAILY PO Last administered on 12/13/18 08:40; Admin Dose 5 MG; Start 11/24/18 at 09:30 Digoxin (Digoxin) 0.25 mg DAILY@1300 PO Last administered on 11/26/18 13:41; Admin Dose 0.25 MG; Start 11/24/18 at 13:00; Status Hold Escitalopram Oxalate (Lexapro) 20 mg DAILY PO Last administered on 12/13/18 08:39; Admin Dose 20 MG; Start 11/24/18 at 09:30 Loratadine (Claritin) 10 mg DAILY PO Last administered on 12/13/18 08:40; Admin Dose 10 MG; Start 11/24/18 at 10:00 Multivitamins Therapeutic (Theragran) 1 tab DAILY PO Last administered on 12/13/18 08:40; Admin Dose 1 TAB; Start 11/24/18 at 09:30 Potassium Chloride (Micro-K) 8 meq DAILY PO Last administered on 11/24/18 10:12; Admin Dose 8 MEQ; Start 11/24/18 at 10:00; Status Hold Tamsulosin HCl (Flomax) 0.4 mg HS PO Last administered on 12/12/18 21:44; Admin Dose 0.4 MG; Start 11/24/18 at 21:00 Calcium/Vitamin D (Oyster Shell/ Vit-D (500/200)) 1 tab DAILY PO Last administered on 12/13/18 08:40; Admin Dose 1 TAB; Start 11/24/18 at 09:30 Metoprolol Tartrate (Lopressor) 5 mg Q4H PRN IV HR>110 Hold SBP<100; Start 11/24/18 at 11:00 Diltiazem HCl (Cardizem Sr) 120 mg DAILY PO ; Start 11/25/18 at 14:00; Status Hold IV Flush (NS 10 ml) 10 ml PRN PRN IV IV PROTOCOL; Start 11/25/18 at 16:00 Hydralazine HCl (Apresoline) 25 mg Q8 PO Last administered on 12/09/18at 13:13; Admin Dose 25 MG; Start 11/26/18 at 22:00 Pantoprazole (Protonix Iv) 40 mg DAILY@06 IV Last administered on 12/13/18at 06:24; Admin Dose 40 MG; Start 11/29/18 at 06:00 Diagnostic Test (Pha) (Accu-Chek) 1 ea 02 XX Last administered on 12/10/18at 01:44; Admin Dose 1 EA; Start 12/01/18 at 02:00 Insulin Aspart (Novolog Insulin Pen) (Adult SC Insulin - Mild Algorithm)... Q4 SC Last administered on 12/08/18at 08:46; Admin Dose 1 UNIT; Start 11/30/18 at 09:00 Miscellaneous Information 1 ea NOTE XX ; Start 11/30/18 at 08:00 Glucose (Glutose) 15 gm Q15M PRN PO DECREASED GLUCOSE; Start 11/30/18 at 08:00 Glucose (Glutose) 22.5 gm Q15M PRN PO DECREASED GLUCOSE; Start 11/30/18 at 08:00 Dextrose (D50w Syringe) 25 ml Q15M PRN IV DECREASED GLUCOSE Last administered on 12/11/18at 21:43; Admin Dose 25 ML; Start 11/30/18 at 08:00 Dextrose (D50w Syringe) 50 ml Q15M PRN IV DECREASED GLUCOSE; Start 11/30/18 at 08:00 Glucagon (Glucagen) 1 mg Q15M PRN IM DECREASED GLUCOSE; Start 11/30/18 at 08:00 Glucose (Glutose) 15 gm Q15M PRN BUCCAL DECREASED GLUCOSE; Start 11/30/18 at 08:00 Midazolam HCl 50 ml @ 1 mls/hr TITRATE IV Last administered on 12/03/18at 03:19; Admin Dose 4 MLS/HR; Start 12/02/18 at 07:00 Norepinephrine 16 mg/Dextrose 500 ml @ 1.88 mls/hr TITRATE IV Last administered on 12/09/18at 20:04; Admin Dose 1.88 MLS/HR; Start 12/02/18 at 09:30 Fentanyl 100 ml @ 2.5 mls/hr TITRATE IV Last administered on 12/13/18 03:45; Admin Dose 10 MLS/HR; Start 12/02/18 at 10:30 Acetaminophen (Tylenol Tab) 650 mg Q4H PRN PO mild pain Last administered on 12/05/18 01:13; Admin Dose 650 MG; Start 12/02/18 at 12:00 Morphine Sulfate (morphine) 2 mg Q2H PRN IV moderate to severe pain; Start 12/02/18 at 12:00 Al Hydrox/Mg Hydrox/Simethicone (Mag-Al Plus) 30 ml Q4H PRN PO GASTROINTESTINAL UPSET; Start 12/02/18 at 12:00 Ondansetron HCl (Zofran Inj) 4 mg Q4H PRN IV NAUSEA AND/OR VOMITING Last administered on 12/07/18 23:27; Admin Dose 4 MG; Start 12/02/18 at 12:00 Collagenase (Santyl) 1 applic DAILY TOP Last administered on 12/13/18 08:40; Admin Dose 1 APPLIC; Start 12/03/18 at 14:00 Aspirin (Aspirin) 81 mg DAILY NGT Last administered on 12/13/18 08:39; Admin Dose 81 MG; Start 12/06/18 at 09:00 Heparin Sodium (Porcine) (Heparin (1000 Units/ml)) 4,000 unit AFTER DIALYSIS CATHETER Last administered on 12/10/18 12:58; Admin Dose 3,000 UNIT; Start 12/08/18 at 09:30 Albumin Human 100 ml @ 100 mls/hr WITH DIALYSIS PRN IV SBP less than 90 mm Hg Last administered on 12/10/18 10:08; Admin Dose 100 MLS/HR; Start 12/08/18 at 09:30 Sodium Chloride (NS) -To prime the dialy... DIRECTED FOR HD PRN IV SBP less than 90 mm Hg; Start 12/08/18 at 09:30 Mannitol 62.5 ml @ 0 mls/hr WITH DIALYSIS PRN IV WITH DIALYSIS Last administered on 12/08/18 22:03; Admin Dose 60 MLS/HR; Start 12/08/18 at 21:00 Fluconazole (Diflucan) 200 mg DAILY NGT Last administered on 12/13/18 08:40; Admin Dose 200 MG; Start 12/10/18 at 09:00 Dextrose/Sodium Chloride 1,000 ml @ 20 mls/hr Q24H IV Last administered on 12/12/18at 21:48; Admin Dose 20 MLS/HR; Start 12/11/18 at 22:00 Lorazepam (Ativan) 1 mg Q6H PRN IV AGITATION/ANXIETY Last administered on 12/13/18at 07:14; Admin Dose 1 MG; Start 12/12/18 at 23:20 TWAN PATTERSON MD Dec 13, 2018 09:17
[2018-12-13] MEDS: ALBUMIN HUMAN 25% 100 ML IV PRN (09:36)
[2018-12-13] MEDS: HEPARIN 1000 UNITS/ML 10 ML INJ CATHETER SCH (11:48)
--- NOTE | 2018-12-13 11:54 | CONS ---
Date/Time of Note Date/Time of Note DATE: 12/13/18 TIME: 11:53 Consult Date/Type/Reason Admit Date/Time Nov 23, 2018 at 22:01 Initial Consult Date 11/25/18 Type of Consultation: Pulm/CCM Requesting Provider: NAYANA GARCIA Subjective Patient stable this morning on mechanical ventilation having hemodialysis. Objective Vital Signs Date Temp Pulse Resp B/P (MAP) Pulse Ox O2 O2 Flow FiO2 Time Delivery Rate 12/13/18 76 16 122/63 97 10:00 (82) 12/13/18 98.5 Mechanical 08:00 Ventilator 12/13/18 40 08:00 Intake and Output 12/12/18 12/12/18 12/13/18 1515:00 23:00 07:00 IntakeIntake Total 360 ml 520 ml 640 ml OutputOutput Total 15 ml 20 ml BalanceBalance 360 ml 505 ml 620 ml Exam GENERAL: VITAL SIGNS: per chart NECK: Supple. No JVD or lymphadenopathy. CARDIAC EXAM: S1, S2. No added sounds or murmurs. CHEST: clear bilaterally, No added sounds, rales or wheezes ABDOMEN: Soft, nontender. No guarding or rebound. EXTREMITIES: No cyanosis, clubbing or edema. NEUROLOGIC: Generalized weakness. No focal deficits. Results/Medications Result Diagram: 12/13/18 0436 12/13/18 0436 Results 24 hrs Laboratory Tests Test 12/12/18 13:25 12/12/18 16:20 12/12/18 22:02 12/13/18 04:30 Bedside Glucose 67 L 71 94 Lactic Acid Level 0.9 Test 12/13/18 04:36 12/13/18 05:00 12/13/18 06:27 12/13/18 09:25 White Blood Count 7.4 Red Blood Count 3.28 L Hemoglobin 7.6 L Hematocrit 27.9 L Mean Corpuscular 85.1 Volume Mean Corpuscular 23.2 L Hemoglobin Mean Corpuscular 27.2 L Hemoglobin Concen t Red Cell 29.0 H Distribution Width Platelet Count 255 Mean Platelet Volume Immature 0.500 H Granulocytes % Neutrophils % 66.3 Lymphocytes % 17.8 Monocytes % 9.5 Eosinophils % 5.4 Basophils % 0.5 Nucleated Red 0.0 Blood Cells % Immature 0.040 H Granulocytes # Neutrophils # 4.9 Lymphocytes # 1.3 Monocytes # 0.7 Eosinophils # 0.4 Basophils # 0.0 Nucleated Red 0.0 Blood Cells # Sodium Level 138 Potassium Level 4.2 Chloride Level 99 Carbon Dioxide 29 Level Anion Gap 10 Blood Urea 29 H Nitrogen Creatinine 4.15 #H Est Glomerular Filtrat Rate mL/min Glucose Level 92 Calcium Level 9.0 Phosphorus Level 4.1 Magnesium Level 1.9 Blood Gas Blood arterial Specimen Source Arterial Blood 12/13/2018 4:40:1 Date Drawn 3 AM Arterial Blood pH 7.345 L (Temp corrected) Arterial Blood 57.9 H pCO2 (Temp correct) Arterial Blood 72.6 L pO2 (Temp corrected) Arterial Blood 30.9 H HCO3 Arterial Blood 4.3 H Base Excess Arterial Blood 94.3 L Oxygen Saturation Nilson Test N/A Arterial Blood Right Brachial Gas Puncture Site Arterial 0.8 Blood Carboxyhemo globin Arterial Blood 0.3 Methemoglobin Blood Gas A-a O2 146.0 H Differential Oxyhemoglobin 93.3 Percent Blood Gas 37.0 Temperature Blood Gas 16.0 Respiration Rate Blood Gas Actual 16 Respiration Rate Blood Gas VENT - AC Modality FiO2 40.0 Blood Gas Tidal 550.0 Volume Blood Gas Low 5.0 PEEP Setting Blood Gas 28.0 Inspiratory Pressure Blood Gas MR Notified Whom Blood Gas 12/13/2018 4:54:4 Notified Time 9 AM Bedside Glucose 84 99 Test 12/13/18 10:53 Bedside Glucose 87 Medications Current Medications Acetaminophen (Tylenol Liquid) 650 mg Q6H PRN PO PAIN LEVEL 1-3 OR FEVER Last administered on 12/02/18at 02:31; Admin Dose 650 MG; Start 11/23/18 at 22:30 Acetaminophen (Tylenol Supp) 650 mg Q4H PRN [place] PAIN LEVEL 1-3 OR FEVER Last administered on 12/02/18at 21:21; Admin Dose 650 MG; Start 11/23/18 at 22:30 Atorvastatin Calcium (Lipitor) 20 mg HS PO Last administered on 12/12/18at 21:44; Admin Dose 20 MG; Start 11/24/18 at 21:00 Albuterol/ Ipratropium (Duoneb) 3 ml Q4H RESP THERAPY PRN HHN SHORTNESS OF BREATH; Start 11/24/18 at 09:00 Aripiprazole (Abilify) 5 mg DAILY PO Last administered on 12/13/18at 08:40; Admin Dose 5 MG; Start 11/24/18 at 09:30 Digoxin (Digoxin) 0.25 mg DAILY@1300 PO Last administered on 11/26/18 13:41; Admin Dose 0.25 MG; Start 11/24/18 at 13:00; Status Hold Escitalopram Oxalate (Lexapro) 20 mg DAILY PO Last administered on 12/13/18 08:39; Admin Dose 20 MG; Start 11/24/18 at 09:30 Loratadine (Claritin) 10 mg DAILY PO Last administered on 12/13/18 08:40; Admin Dose 10 MG; Start 11/24/18 at 10:00 Multivitamins Therapeutic (Theragran) 1 tab DAILY PO Last administered on 12/13/18 08:40; Admin Dose 1 TAB; Start 11/24/18 at 09:30 Potassium Chloride (Micro-K) 8 meq DAILY PO Last administered on 11/24/18at 10:12; Admin Dose 8 MEQ; Start 11/24/18 at 10:00; Status Hold Tamsulosin HCl (Flomax) 0.4 mg HS PO Last administered on 12/12/18at 21:44; Admin Dose 0.4 MG; Start 11/24/18 at 21:00 Calcium/Vitamin D (Oyster Shell/ Vit-D (500/200)) 1 tab DAILY PO Last administered on 12/13/18at 08:40; Admin Dose 1 TAB; Start 11/24/18 at 09:30 Metoprolol Tartrate (Lopressor) 5 mg Q4H PRN IV HR>110 Hold SBP<100; Start 11/24/18 at 11:00 Diltiazem HCl (Cardizem Sr) 120 mg DAILY PO ; Start 11/25/18 at 14:00; Status Hold IV Flush (NS 10 ml) 10 ml PRN PRN IV IV PROTOCOL; Start 11/25/18 at 16:00 Hydralazine HCl (Apresoline) 25 mg Q8 PO Last administered on 12/09/18at 13:13; Admin Dose 25 MG; Start 11/26/18 at 22:00 Pantoprazole (Protonix Iv) 40 mg DAILY@06 IV Last administered on 12/13/18at 06:24; Admin Dose 40 MG; Start 11/29/18 at 06:00 Diagnostic Test (Pha) (Accu-Chek) 1 ea 02 XX Last administered on 12/10/18at 01:44; Admin Dose 1 EA; Start 12/01/18 at 02:00 Insulin Aspart (Novolog Insulin Pen) (Adult SC Insulin - Mild Algorithm)... Q4 SC Last administered on 12/08/18at 08:46; Admin Dose 1 UNIT; Start 11/30/18 at 09:00 Miscellaneous Information 1 ea NOTE XX ; Start 11/30/18 at 08:00 Glucose (Glutose) 15 gm Q15M PRN PO DECREASED GLUCOSE; Start 11/30/18 at 08:00 Glucose (Glutose) 22.5 gm Q15M PRN PO DECREASED GLUCOSE; Start 11/30/18 at 08:00 Dextrose (D50w Syringe) 25 ml Q15M PRN IV DECREASED GLUCOSE Last administered on 12/11/18at 21:43; Admin Dose 25 ML; Start 11/30/18 at 08:00 Dextrose (D50w Syringe) 50 ml Q15M PRN IV DECREASED GLUCOSE; Start 11/30/18 at 08:00 Glucagon (Glucagen) 1 mg Q15M PRN IM DECREASED GLUCOSE; Start 11/30/18 at 08:00 Glucose (Glutose) 15 gm Q15M PRN BUCCAL DECREASED GLUCOSE; Start 11/30/18 at 08:00 Midazolam HCl 50 ml @ 1 mls/hr TITRATE IV Last administered on 12/03/18at 03:19; Admin Dose 4 MLS/HR; Start 12/02/18 at 07:00 Norepinephrine 16 mg/Dextrose 500 ml @ 1.88 mls/hr TITRATE IV Last administered on 12/09/18at 20:04; Admin Dose 1.88 MLS/HR; Start 12/02/18 at 09:30 Fentanyl 100 ml @ 2.5 mls/hr TITRATE IV Last administered on 12/13/18at 03:45; Admin Dose 10 MLS/HR; Start 12/02/18 at 10:30 Acetaminophen (Tylenol Tab) 650 mg Q4H PRN PO mild pain Last administered on 12/05/18at 01:13; Admin Dose 650 MG; Start 12/02/18 at 12:00 Morphine Sulfate (morphine) 2 mg Q2H PRN IV moderate to severe pain; Start 12/02/18 at 12:00 Al Hydrox/Mg Hydrox/Simethicone (Mag-Al Plus) 30 ml Q4H PRN PO GASTROINTESTINAL UPSET; Start 12/02/18 at 12:00 Ondansetron HCl (Zofran Inj) 4 mg Q4H PRN IV NAUSEA AND/OR VOMITING Last administered on 12/07/18 23:27; Admin Dose 4 MG; Start 12/02/18 at 12:00 Collagenase (Santyl) 1 applic DAILY TOP Last administered on 12/13/18 08:40; Admin Dose 1 APPLIC; Start 12/03/18 at 14:00 Aspirin (Aspirin) 81 mg DAILY NGT Last administered on 12/13/18 08:39; Admin Dose 81 MG; Start 12/06/18 at 09:00 Heparin Sodium (Porcine) (Heparin (1000 Units/ml)) 4,000 unit AFTER DIALYSIS CATHETER Last administered on 12/13/18 11:48; Admin Dose 3,000 UNIT; Start 12/08/18 at 09:30 Albumin Human 100 ml @ 100 mls/hr WITH DIALYSIS PRN IV SBP less than 90 mm Hg Last administered on 12/13/18 09:36; Admin Dose 100 MLS/HR; Start 12/08/18 at 09:30 Sodium Chloride (NS) -To prime the dialy... DIRECTED FOR HD PRN IV SBP less than 90 mm Hg; Start 12/08/18 at 09:30 Mannitol 62.5 ml @ 0 mls/hr WITH DIALYSIS PRN IV WITH DIALYSIS Last administered on 12/08/18at 22:03; Admin Dose 60 MLS/HR; Start 12/08/18 at 21:00 Fluconazole (Diflucan) 200 mg DAILY NGT Last administered on 12/13/18 08:40; Admin Dose 200 MG; Start 12/10/18 at 09:00 Dextrose/Sodium Chloride 1,000 ml @ 20 mls/hr Q24H IV Last administered on 12/12/18 21:48; Admin Dose 20 MLS/HR; Start 12/11/18 at 22:00 Haloperidol (Haldol) 1 mg Q6H PRN IV agitation; Start 12/13/18 at 09:30 Assessment/Plan Chief Complaint/Hosp Course IMP: 1. Acute on chronic hypoxemic/hypercapnic respiratory failure--most likely due to volume overload +/- pneumonia. Right pleural effusion. Status post thoracentesis. 2. Sigmoid mass, presumed colon cancer with recent severe anemia. Status post stent placement 3. Non-ST elevation myocardial infarction. Status post cardiac cath with no target lesions identified. 4. Atrial fibrillation with rapid ventricular response, now rate controlled 5. Worsening renal failure likely requiring hemodialysis. Likely contrast nephropathy 6. Anemia RECS: 1. Continue efforts to wean as tolerated, however it is unlikely patient come off ventilation anytime soon. 2. HD/UF as per Renal 3. Vent support 4. Change vent to Vt targ of 550; continue 5 PEEP. Discussed with son at length at bedside. We will proceed with tracheostomy and PEG tube. Critical care time 40 minutes. JANNET EBRG MD, [facility] Dec 13, 2018 11:54
--- NOTE | 2018-12-13 11:55 | CONS ---
Date/Time of Note Date/Time of Note DATE: 12/13/18 TIME: 11:54 Assessment/Plan Assessment/Plan Assessment/Plan 1. Oliguric Acute on chronic renal failure due to Sepsis and Hemodynamics + obstructive uropathy - Worsening causing uremic encephalopathy 2. atrial fibrillation with RVR- now rate controlled 3. acute hypoxemic and hypercapnic resp failure due to PNA - failed BIPAP; intubated 4. Sepsis 5. Positive troponin 6. BPH on flomax 7. Colon CA Plan: Started on HD on 12/08/18- s/p Hd today - BP dropped during HD so unable to remove more fluids, will keep pt on MWF schedule from now. BUN/Cr improved to 29/4.15 with serial HDs. -pt is still not waking up and unable to be weaned off from ventilator, CT surgery has been consulted today for possible tracheostomy today S/p C which showed moderate Nonobstructive CAD - medical management SP Colonoscopy with stent placement by GI Full code d/w pt son at bedside -still want to keep his dad Full code and want to continue HD will follow up Result Diagram: 12/13/18 0436 12/13/18 0436 Results 24hrs Laboratory Tests Test 12/12/18 13:25 12/12/18 16:20 12/12/18 22:02 12/13/18 04:30 Bedside Glucose 67 L 71 94 Lactic Acid Level 0.9 Test 12/13/18 04:36 12/13/18 05:00 12/13/18 06:27 12/13/18 09:25 White Blood Count 7.4 Red Blood Count 3.28 L Hemoglobin 7.6 L Hematocrit 27.9 L Mean Corpuscular 85.1 Volume Mean Corpuscular 23.2 L Hemoglobin Mean Corpuscular 27.2 L Hemoglobin Concen t Red Cell 29.0 H Distribution Width Platelet Count 255 Mean Platelet Volume Immature 0.500 H Granulocytes % Neutrophils % 66.3 Lymphocytes % 17.8 Monocytes % 9.5 Eosinophils % 5.4 Basophils % 0.5 Nucleated Red 0.0 Blood Cells % Immature 0.040 H Granulocytes # Neutrophils # 4.9 Lymphocytes # 1.3 Monocytes # 0.7 Eosinophils # 0.4 Basophils # 0.0 Nucleated Red 0.0 Blood Cells # Sodium Level 138 Potassium Level 4.2 Chloride Level 99 Carbon Dioxide 29 Level Anion Gap 10 Blood Urea 29 H Nitrogen Creatinine 4.15 #H Est Glomerular Filtrat Rate mL/min Glucose Level 92 Calcium Level 9.0 Phosphorus Level 4.1 Magnesium Level 1.9 Blood Gas Blood arterial Specimen Source Arterial Blood 12/13/2018 4:40:1 Date Drawn 3 AM Arterial Blood pH 7.345 L (Temp corrected) Arterial Blood 57.9 H pCO2 (Temp correct) Arterial Blood 72.6 L pO2 (Temp corrected) Arterial Blood 30.9 H HCO3 Arterial Blood 4.3 H Base Excess Arterial Blood 94.3 L Oxygen Saturation Nilson Test N/A Arterial Blood Right Brachial Gas Puncture Site Arterial 0.8 Blood Carboxyhemo globin Arterial Blood 0.3 Methemoglobin Blood Gas A-a O2 146.0 H Differential Oxyhemoglobin 93.3 Percent Blood Gas 37.0 Temperature Blood Gas 16.0 Respiration Rate Blood Gas Actual 16 Respiration Rate Blood Gas VENT - AC Modality FiO2 40.0 Blood Gas Tidal 550.0 Volume Blood Gas Low 5.0 PEEP Setting Blood Gas 28.0 Inspiratory Pressure Blood Gas MR Notified Whom Blood Gas 12/13/2018 4:54:4 Notified Time 9 AM Bedside Glucose 84 99 Test 12/13/18 10:53 Bedside Glucose 87 Consultation Date/Type/Reason Admit Date/Time Nov 23, 2018 at 22:01 Initial Consult Date 11/24/18 Type of Consult NEPHROLOGY Requesting Provider: NAYANA GARCIA 24 HR Interval Summary Free Text/Dictation pt is not able to be weaned off ventilator, famiy wants tracheostomy, CT surgery has been consulted on the case Exam/Review of Systems Vital Signs Vitals Vital Signs Date Temp Pulse Resp B/P (MAP) Pulse Ox O2 O2 Flow FiO2 Time Delivery Rate 12/13/18 76 16 122/63 97 10:00 (82) 12/13/18 98.5 Mechanical 08:00 Ventilator 12/13/18 40 08:00 Intake and Output 12/12/18 12/12/18 12/13/18 1515:00 23:00 07:00 IntakeIntake Total 360 ml 520 ml 640 ml OutputOutput Total 15 ml 20 ml BalanceBalance 360 ml 505 ml 620 ml Exam Constitutional: moderate distress, intubated on ventilator, ET tube in place Respiratory: Bilateral coarse BS+, basilar crackles Cardiovascular: regular rate and rhythm, nl pulses Gastrointestinal: soft, non-tender Musculoskeletal: 1-2+ pitting edema , + hess catheter Neurological: Uncooperative for neuro exam Medications Medications Current Medications Acetaminophen (Tylenol Liquid) 650 mg Q6H PRN PO PAIN LEVEL 1-3 OR FEVER Last administered on 12/02/18 02:31; Admin Dose 650 MG; Start 11/23/18 at 22:30 Acetaminophen (Tylenol Supp) 650 mg Q4H PRN IN PAIN LEVEL 1-3 OR FEVER Last administered on 12/02/18 21:21; Admin Dose 650 MG; Start 11/23/18 at 22:30 Atorvastatin Calcium (Lipitor) 20 mg HS PO Last administered on 12/12/18 21:44; Admin Dose 20 MG; Start 11/24/18 at 21:00 Albuterol/ Ipratropium (Duoneb) 3 ml Q4H RESP THERAPY PRN HHN SHORTNESS OF BREATH; Start 11/24/18 at 09:00 Aripiprazole (Abilify) 5 mg DAILY PO Last administered on 12/13/18 08:40; Admin Dose 5 MG; Start 11/24/18 at 09:30 Digoxin (Digoxin) 0.25 mg DAILY@1300 PO Last administered on 11/26/18 13:41; Admin Dose 0.25 MG; Start 11/24/18 at 13:00; Status Hold Escitalopram Oxalate (Lexapro) 20 mg DAILY PO Last administered on 12/13/18 08:39; Admin Dose 20 MG; Start 11/24/18 at 09:30 Loratadine (Claritin) 10 mg DAILY PO Last administered on 12/13/18 08:40; Admin Dose 10 MG; Start 11/24/18 at 10:00 Multivitamins Therapeutic (Theragran) 1 tab DAILY PO Last administered on 12/13/18 08:40; Admin Dose 1 TAB; Start 11/24/18 at 09:30 Potassium Chloride (Micro-K) 8 meq DAILY PO Last administered on 11/24/18 10:12; Admin Dose 8 MEQ; Start 11/24/18 at 10:00; Status Hold Tamsulosin HCl (Flomax) 0.4 mg HS PO Last administered on 12/12/18 21:44; Admin Dose 0.4 MG; Start 11/24/18 at 21:00 Calcium/Vitamin D (Oyster Shell/ Vit-D (500/200)) 1 tab DAILY PO Last administe red on 12/13/18at 08:40; Admin Dose 1 TAB; Start 11/24/18 at 09:30 Metoprolol Tartrate (Lopressor) 5 mg Q4H PRN IV HR>110 Hold SBP<100; Start 11/24/18 at 11:00 Diltiazem HCl (Cardizem Sr) 120 mg DAILY PO ; Start 11/25/18 at 14:00; Status Hold IV Flush (NS 10 ml) 10 ml PRN PRN IV IV PROTOCOL; Start 11/25/18 at 16:00 Hydralazine HCl (Apresoline) 25 mg Q8 PO Last administered on 12/09/18at 13:13; Admin Dose 25 MG; Start 11/26/18 at 22:00 Pantoprazole (Protonix Iv) 40 mg DAILY@06 IV Last administered on 12/13/18at 06:24; Admin Dose 40 MG; Start 11/29/18 at 06:00 Diagnostic Test (Pha) (Accu-Chek) 1 ea 02 XX Last administered on 12/10/18at 01:44; Admin Dose 1 EA; Start 12/01/18 at 02:00 Insulin Aspart (Novolog Insulin Pen) (Adult SC Insulin - Mild Algorithm)... Q4 SC Last administered on 12/08/18at 08:46; Admin Dose 1 UNIT; Start 11/30/18 at 09:00 Miscellaneous Information 1 ea NOTE XX ; Start 11/30/18 at 08:00 Glucose (Glutose) 15 gm Q15M PRN PO DECREASED GLUCOSE; Start 11/30/18 at 08:00 Glucose (Glutose) 22.5 gm Q15M PRN PO DECREASED GLUCOSE; Start 11/30/18 at 08:00 Dextrose (D50w Syringe) 25 ml Q15M PRN IV DECREASED GLUCOSE Last administered on 12/11/18at 21:43; Admin Dose 25 ML; Start 11/30/18 at 08:00 Dextrose (D50w Syringe) 50 ml Q15M PRN IV DECREASED GLUCOSE; Start 11/30/18 at 08:00 Glucagon (Glucagen) 1 mg Q15M PRN IM DECREASED GLUCOSE; Start 11/30/18 at 08:00 Glucose (Glutose) 15 gm Q15M PRN BUCCAL DECREASED GLUCOSE; Start 11/30/18 at 08:00 Midazolam HCl 50 ml @ 1 mls/hr TITRATE IV Last administered on 12/03/18at 03:19; Admin Dose 4 MLS/HR; Start 12/02/18 at 07:00 Norepinephrine 16 mg/Dextrose 500 ml @ 1.88 mls/hr TITRATE IV Last administered on 12/09/18at 20:04; Admin Dose 1.88 MLS/HR; Start 12/02/18 at 09:30 Fentanyl 100 ml @ 2.5 mls/hr TITRATE IV Last administered on 12/13/18at 03:45; Admin Dose 10 MLS/HR; Start 12/02/18 at 10:30 Acetaminophen (Tylenol Tab) 650 mg Q4H PRN PO mild pain Last administered on 12/05/18at 01:13; Admin Dose 650 MG; Start 12/02/18 at 12:00 Morphine Sulfate (morphine) 2 mg Q2H PRN IV moderate to severe pain; Start 12/02/18 at 12:00 Al Hydrox/Mg Hydrox/Simethicone (Mag-Al Plus) 30 ml Q4H PRN PO GASTROINTESTINAL UPSET; Start 12/02/18 at 12:00 Ondansetron HCl (Zofran Inj) 4 mg Q4H PRN IV NAUSEA AND/OR VOMITING Last administered on 12/07/18at 23:27; Admin Dose 4 MG; Start 12/02/18 at 12:00 Collagenase (Santyl) 1 applic DAILY TOP Last administered on 12/13/18at 08:40; Admin Dose 1 APPLIC; Start 12/03/18 at 14:00 Aspirin (Aspirin) 81 mg DAILY NGT Last administered on 12/13/18at 08:39; Admin Dose 81 MG; Start 12/06/18 at 09:00 Heparin Sodium (Porcine) (Heparin (1000 Units/ml)) 4,000 unit AFTER DIALYSIS CATHETER Last administered on 12/13/18 11:48; Admin Dose 3,000 UNIT; Start 12/08/18 at 09:30 Albumin Human 100 ml @ 100 mls/hr WITH DIALYSIS PRN IV SBP less than 90 mm Hg Last administered on 12/13/18at 09:36; Admin Dose 100 MLS/HR; Start 12/08/18 at 09:30 Sodium Chloride (NS) -To prime the dialy... DIRECTED FOR HD PRN IV SBP less than 90 mm Hg; Start 12/08/18 at 09:30 Mannitol 62.5 ml @ 0 mls/hr WITH DIALYSIS PRN IV WITH DIALYSIS Last administered on 12/08/18at 22:03; Admin Dose 60 MLS/HR; Start 12/08/18 at 21:00 Fluconazole (Diflucan) 200 mg DAILY NGT Last administered on 12/13/18at 08:40; Admin Dose 200 MG; Start 12/10/18 at 09:00 Dextrose/Sodium Chloride 1,000 ml @ 20 mls/hr Q24H IV Last administered on 11/24 at 21:48; Admin Dose 20 MLS/HR; Start 12/11/18 at 22:00 Haloperidol (Haldol) 1 mg Q6H PRN IV agitation; Start 12/13/18 at 09:30 RENAN HERNANDEZ MD Dec 13, 2018 11:55
--- NOTE | 2018-12-13 13:21 | NUR ---
WOUND CONSULT HAPI FOLLOW-UP 78 year old male well known to our service, admitted with hypoxia and hypercapnic respiratory failure possible 2/2 to pneumonia and fluid overload per record. History of sigmoid mass and diabetes who recently underwent a colonoscopy with stent deployment for sigmoid carcinoma. Patient currently intubated with attempt to wean, low dose vasopressor therapy. Ballard cath. Incontinent of bowel. Max assist to turn. On low air loss surface. Wound consult re-evaluation for a device-related pressure injury. ASSESSMENT - Right-Sided parietal head device-related intact deep tissue injury. Deep Tissue Injury appears to be responding well to current treatment with overall wound circumference measuring approx [id number] with intact periwound. Patient continues to utilize the waffle cushion RECOMMENDATION: - Continue with current treatment Thank you Brenda Malin, MSN, CCRN, C
--- NOTE | 2018-12-13 14:16 | CONS ---
Date/Time of Note Date/Time of Note DATE: 12/13/18 TIME: 14:16 Assessment/Plan Assessment/Plan Hospital Course unfortunate 78 yo with what appears to be locally advanced colon ca #nearly obstructive colon ca -he has very poor performance status and multiple co-morbidities/multiple medical complications -he is intubated -surgery has seen pt and he is not an appropriate resection candidate, s/p stent -I have discussed with son that his father's health is very tenuous and he is not a candidate for chemo now, unclear if he will ever be improved enough for oncologic tx. unfortunately patient is declining, he is intubated, starting dialysis. at this point certainly not a candidate for chemo # Hypoxic and hypercapnic respiratory failure - intubated 12/02. -failed weaning trials # Sepsis: - fungal UTI and PNA on fluconazole #anemia due to colon ca hgb 7.6 today transfuse to keep hgb >7 #CAD s/p cardiac cath, no critical obstruction #oliguric/renal failure on dialysis we will follow periodically, please call with questions Result Diagram: 12/13/18 0436 12/13/18 0436 Results 24hrs Laboratory Tests Test 12/12/18 16:20 12/12/18 22:02 12/13/18 04:30 12/13/18 04:36 Bedside Glucose 71 94 Lactic Acid Level 0.9 White Blood Count 7.4 Red Blood Count 3.28 L Hemoglobin 7.6 L Hematocrit 27.9 L Mean Corpuscular 85.1 Volume Mean Corpuscular 23.2 L Hemoglobin Mean Corpuscular 27.2 L Hemoglobin Concen t Red Cell 29.0 H Distribution Width Platelet Count 255 Mean Platelet Volume Immature 0.500 H Granulocytes % Neutrophils % 66.3 Lymphocytes % 17.8 Monocytes % 9.5 Eosinophils % 5.4 Basophils % 0.5 Nucleated Red 0.0 Blood Cells % Immature 0.040 H Granulocytes # Neutrophils # 4.9 Lymphocytes # 1.3 Monocytes # 0.7 Eosinophils # 0.4 Basophils # 0.0 Nucleated Red 0.0 Blood Cells # Sodium Level 138 Potassium Level 4.2 Chloride Level 99 Carbon Dioxide 29 Level Anion Gap 10 Blood Urea 29 H Nitrogen Creatinine 4.15 #H Est Glomerular Filtrat Rate mL/min Glucose Level 92 Calcium Level 9.0 Phosphorus Level 4.1 Magnesium Level 1.9 Test 12/13/18 05:00 12/13/18 06:27 12/13/18 09:25 12/13/18 10:53 Blood Gas Blood arterial Specimen Source Arterial Blood 12/13/2018 4:40:1 Date Drawn 3 AM Arterial Blood pH 7.345 L (Temp corrected) Arterial Blood 57.9 H pCO2 (Temp correct) Arterial Blood 72.6 L pO2 (Temp corrected) Arterial Blood 30.9 H HCO3 Arterial Blood 4.3 H Base Excess Arterial Blood 94.3 L Oxygen Saturation Nilson Test N/A Arterial Blood Right Brachial Gas Puncture Site Arterial 0.8 Blood Carboxyhemo globin Arterial Blood 0.3 Methemoglobin Blood Gas A-a O2 146.0 H Differential Oxyhemoglobin 93.3 Percent Blood Gas 37.0 Temperature Blood Gas 16.0 Respiration Rate Blood Gas Actual 16 Respiration Rate Blood Gas VENT - AC Modality FiO2 40.0 Blood Gas Tidal 550.0 Volume Blood Gas Low 5.0 PEEP Setting Blood Gas 28.0 Inspiratory Pressure Blood Gas MR Notified Whom Blood Gas 12/13/2018 4:54:4 Notified Time 9 AM Bedside Glucose 84 99 87 Consultation Date/Type/Reason Admit Date/Time Nov 23, 2018 at 22:01 Initial Consult Date 11/25/18 Requesting Provider: NAYANA GARCIA 24 HR Interval Summary Free Text/Dictation intubated Exam/Review of Systems Vital Signs Vitals Vital Signs Date Temp Pulse Resp B/P (MAP) Pulse Ox O2 O2 Flow FiO2 Time Delivery Rate 12/13/18 61 16 123/63 94 13:00 (83) 12/13/18 Mechanical 12:20 Ventilator 12/13/18 98.7 12:00 12/13/18 40 11:20 Intake and Output 12/12/18 12/12/18 12/13/18 1515:00 23:00 07:00 IntakeIntake Total 360 ml 520 ml 640 ml OutputOutput Total 15 ml 20 ml BalanceBalance 360 ml 505 ml 620 ml Medications Medications Current Medications Acetaminophen (Tylenol Liquid) 650 mg Q6H PRN PO PAIN LEVEL 1-3 OR FEVER Last administered on 12/02/18at 02:31; Admin Dose 650 MG; Start 11/23/18 at 22:30 Acetaminophen (Tylenol Supp) 650 mg Q4H PRN PA PAIN LEVEL 1-3 OR FEVER Last administered on 12/02/18at 21:21; Admin Dose 650 MG; Start 11/23/18 at 22:30 Atorvastatin Calcium (Lipitor) 20 mg HS PO Last administered on 12/12/18 21:44; Admin Dose 20 MG; Start 11/24/18 at 21:00 Albuterol/ Ipratropium (Duoneb) 3 ml Q4H RESP THERAPY PRN HHN SHORTNESS OF BREATH; Start 11/24/18 at 09:00 Aripiprazole (Abilify) 5 mg DAILY PO Last administered on 12/13/18 08:40; Admin Dose 5 MG; Start 11/24/18 at 09:30 Digoxin (Digoxin) 0.25 mg DAILY@1300 PO Last administered on 11/26/18 13:41; Admin Dose 0.25 MG; Start 11/24/18 at 13:00; Status Hold Escitalopram Oxalate (Lexapro) 20 mg DAILY PO Last administered on 12/13/18 08:39; Admin Dose 20 MG; Start 11/24/18 at 09:30 Loratadine (Claritin) 10 mg DAILY PO Last administered on 12/13/18 08:40; Admin Dose 10 MG; Start 11/24/18 at 10:00 Multivitamins Therapeutic (Theragran) 1 tab DAILY PO Last administered on 12/13/18 08:40; Admin Dose 1 TAB; Start 11/24/18 at 09:30 Potassium Chloride (Micro-K) 8 meq DAILY PO Last administered on 11/24/18 10:12; Admin Dose 8 MEQ; Start 11/24/18 at 10:00; Status Hold Tamsulosin HCl (Flomax) 0.4 mg HS PO Last administered on 12/12/18 21:44; Admin Dose 0.4 MG; Start 11/24/18 at 21:00 Calcium/Vitamin D (Oyster Shell/ Vit-D (500/200)) 1 tab DAILY PO Last administered on 12/13/18 08:40; Admin Dose 1 TAB; Start 11/24/18 at 09:30 Metoprolol Tartrate (Lopressor) 5 mg Q4H PRN IV HR>110 Hold SBP<100; Start 11/24/18 at 11:00 Diltiazem HCl (Cardizem Sr) 120 mg DAILY PO ; Start 11/25/18 at 14:00; Status Hold IV Flush (NS 10 ml) 10 ml PRN PRN IV IV PROTOCOL; Start 11/25/18 at 16:00 Hydralazine HCl (Apresoline) 25 mg Q8 PO Last administered on 12/09/18at 13:13; Admin Dose 25 MG; Start 11/26/18 at 22:00 Pantoprazole (Protonix Iv) 40 mg DAILY@06 IV Last administered on 12/13/18at 06:24; Admin Dose 40 MG; Start 11/29/18 at 06:00 Diagnostic Test (Pha) (Accu-Chek) 1 ea 02 XX Last administered on 12/10/18at 01:44; Admin Dose 1 EA; Start 12/01/18 at 02:00 Insulin Aspart (Novolog Insulin Pen) (Adult SC Insulin - Mild Algorithm)... Q4 SC Last administered on 12/08/18at 08:46; Admin Dose 1 UNIT; Start 11/30/18 at 09:00 Miscellaneous Information 1 ea NOTE XX ; Start 11/30/18 at 08:00 Glucose (Glutose) 15 gm Q15M PRN PO DECREASED GLUCOSE; Start 11/30/18 at 08:00 Glucose (Glutose) 22.5 gm Q15M PRN PO DECREASED GLUCOSE; Start 11/30/18 at 08:00 Dextrose (D50w Syringe) 25 ml Q15M PRN IV DECREASED GLUCOSE Last administered on 12/11/18at 21:43; Admin Dose 25 ML; Start 11/30/18 at 08:00 Dextrose (D50w Syringe) 50 ml Q15M PRN IV DECREASED GLUCOSE; Start 11/30/18 at 08:00 Glucagon (Glucagen) 1 mg Q15M PRN IM DECREASED GLUCOSE; Start 11/30/18 at 08:00 Glucose (Glutose) 15 gm Q15M PRN BUCCAL DECREASED GLUCOSE; Start 11/30/18 at 08:00 Midazolam HCl 50 ml @ 1 mls/hr TITRATE IV Last administered on 12/03/18at 03:19; Admin Dose 4 MLS/HR; Start 12/02/18 at 07:00 Norepinephrine 16 mg/Dextrose 500 ml @ 1.88 mls/hr TITRATE IV Last administered on 12/09/18at 20:04; Admin Dose 1.88 MLS/HR; Start 12/02/18 at 09:30 Fentanyl 100 ml @ 2.5 mls/hr TITRATE IV Last administered on 12/13/18 03:45; Admin Dose 10 MLS/HR; Start 12/02/18 at 10:30 Acetaminophen (Tylenol Tab) 650 mg Q4H PRN PO mild pain Last administered on 12/05/18 01:13; Admin Dose 650 MG; Start 12/02/18 at 12:00 Morphine Sulfate (morphine) 2 mg Q2H PRN IV moderate to severe pain; Start 12/02/18 at 12:00 Al Hydrox/Mg Hydrox/Simethicone (Mag-Al Plus) 30 ml Q4H PRN PO GASTROINTESTINAL UPSET; Start 12/02/18 at 12:00 Ondansetron HCl (Zofran Inj) 4 mg Q4H PRN IV NAUSEA AND/OR VOMITING Last administered on 12/07/18 23:27; Admin Dose 4 MG; Start 12/02/18 at 12:00 Collagenase (Santyl) 1 applic DAILY TOP Last administered on 12/13/18 08:40; Admin Dose 1 APPLIC; Start 12/03/18 at 14:00 Aspirin (Aspirin) 81 mg DAILY NGT Last administered on 12/13/18 08:39; Admin Dose 81 MG; Start 12/06/18 at 09:00 Heparin Sodium (Porcine) (Heparin (1000 Units/ml)) 4,000 unit AFTER DIALYSIS CATHETER Last administered on 12/13/18 11:48; Admin Dose 3,000 UNIT; Start 12/08/18 at 09:30 Albumin Human 100 ml @ 100 mls/hr WITH DIALYSIS PRN IV SBP less than 90 mm Hg Last administered on 12/13/18 09:36; Admin Dose 100 MLS/HR; Start 12/08/18 at 09:30 Sodium Chloride (NS) -To prime the dialy... DIRECTED FOR HD PRN IV SBP less than 90 mm Hg; Start 12/08/18 at 09:30 Mannitol 62.5 ml @ 0 mls/hr WITH DIALYSIS PRN IV WITH DIALYSIS Last administered on 12/08/18 22:03; Admin Dose 60 MLS/HR; Start 12/08/18 at 21:00 Fluconazole (Diflucan) 200 mg DAILY NGT Last administered on 12/13/18 08:40; Admin Dose 200 MG; Start 12/10/18 at 09:00 Dextrose/Sodium Chloride 1,000 ml @ 20 mls/hr Q24H IV Last administered on 12/12/18at 21:48; Admin Dose 20 MLS/HR; Start 12/11/18 at 22:00 Haloperidol (Haldol) 1 mg Q6H PRN IV agitation; Start 12/13/18 at 09:30 TEO LOZOYA Dec 13, 2018 14:16
[2018-12-13] MEDS: HALOPERIDOL 5 MG INJ IV PRN (14:42)
--- NOTE | 2018-12-13 15:03 | CONS ---
DATE OF ADMISSION: 11/23/2018 DATE OF CONSULTATION: REASON FOR CONSULTATION: Evaluation for tracheostomy. HISTORY OF PRESENT ILLNESS: This is a 78-year-old male admitted because of hypoxia, had to be intuba elena, currently unable to come off the ventilator secondary to multiple medical problems including nilsa al failure, pneumonia, respiratory failure. The patient's current saturation is 95% with FiO2 of 40% . The patient is currently on dialysis. The patient is also being treated for possible colon mass, sepsis, has had hypernatremia and elevation of the troponins. PAST MEDICAL HISTORY: Hypertension, hyperlipidemia, diabetes, renal failure. PAST SURGICAL HISTORY: Unknown. ALLERGIES: UNKNOWN. SOCIAL HISTORY: Unknown. MEDICATION LIST: Reviewed. PHYSICAL EXAMINATION: GENERAL: The patient is intubated. VITAL SIGNS: Blood pressure is 119/69, pulse is 85, respirations . CARDIOVASCULAR: Normal S1, S2, irregular. LUNGS: Have diminished breath sounds at the bases. ABDOMEN: Soft, nontender, nondistended. EXTREMITIES: Warm. There are palpable femoral pulses. I cannot palpate pedal pulses. The patient has 2+ edema. LABORATORY VALUES: Significant for hemoglobin of 7.6, white count of 7.4, platelet count 255. INR 1 .23. IMPRESSION: Respiratory failure, unable to come off the ventilator secondary to multiple medical pro blems. RECOMMENDATIONS: We will proceed with the placement of a tracheostomy. I discussed with the referri physicians. Dictated By: HALI CHUN MD FM/NTS Conf#: [id number] DID#: [id number] CC: AJ PIERRE MD; TWAN PATTERSON MD; MARILEE CHAVEZ MD;*EndCC*
--- NOTE | 2018-12-13 18:30 | NUR ---
EOSS PT WAS AGITATED AND RESTLESS THIS MORNING, ATIVAN 1MG IV ADMINISTERED. PT HAD HD SOON AFTER, HR DROPPED TO 50S, HELD FENTANYL GTT FOR HD, CARDIOLOGY AND ATTENDING AWARE OF CHANGES. NEW ORDERS FOR HALDOL IV INSTEAD. ADMINISTERED HALDOL 1X DURING SHIFT, NOT EFFECTIVE ATIVAN. PT CONTINUES TO BE RESTLESS IN BED, VS WITHIN WANTED LIMITS. DR BERG SPOKE TO PT'S SON. CONSENT FOR TRACH AND PEG OBTAINED. PRINTED UP HOSPITAL INFORMATION ON TRACHEOSTOMY FOR PT'S SON. ALL QUESTIONS ANSWERED.
[2018-12-13] MEDS ORDERED: NORepinephrine 8MG/250 ML (PMX 250 ML ONE (19:36)
[2018-12-13] MEDS: TAMSULOSIN (SR) 0.4 MG CAP PO SCH (21:41)
[2018-12-13] MEDS: ATORVASTATIN 20 MG TAB PO SCH (21:42)
[2018-12-13] MEDS: DEXTROSE 5%-0.9% NACL 1,000 ML IV SCH (21:44)
[2018-12-14] VITALS (37 sets, daily range): BP systolic 100–144; BP diastolic 51–92; PULSE 66–133; RESP 1–24
[2018-12-14] MEDS: HALOPERIDOL 5 MG INJ IV PRN ×2 (00:54→13:24)
[2018-12-14] MEDS: Insulin NOVOLOG SS MILD Algorithm (NPO/TPN/ENTERAL FEEDS) SC SCH ×6 (01:00→20:53)
[2018-12-14] MEDS: FENTAnyl (DRIP) 1000 mcg/100mL 100 ML IV SCH ×2 (01:10→10:46)
[2018-12-14] MEDS: ACCU-CHEK XX SCH (02:00)
[2018-12-14] MEDS: morphine 4 MG/ML VIAL IV PRN (05:23)
[2018-12-14] MEDS: PANTOPRAZOLE 40 MG INJ IV SCH (05:24)
[2018-12-14] MEDS: DEXTROSE 5%-0.9% NACL 1,000 ML IV SCH (06:35)
[2018-12-14] MEDS ORDERED: CEFAZOLIN 1 GM INJ ONE (07:00)
[2018-12-14] MEDS: FLUCONAZOLE 200 MG TAB NGT SCH (08:23)
[2018-12-14] MEDS: ESCITALOPRAM 10 MG TAB PO SCH (08:23)
[2018-12-14] MEDS: ASPIRIN 325 MG TAB NGT SCH (08:23)
[2018-12-14] MEDS: ARIPIPRAZOLE 5 MG TAB PO SCH (08:23)
[2018-12-14] MEDS: CALCIUM/VITAMIN D (500/200) TAB PO SCH (08:24)
[2018-12-14] MEDS: BALSAM PERU/CASTOR OIL 60 GM TUBE TOP SCH ×2 (08:24→20:53)
[2018-12-14] MEDS: COLLAGENASE 5 GM (UD JAR) TOP SCH (08:24)
[2018-12-14] MEDS: MULTIVITAMINS THERAPEUTIC TAB PO SCH (08:24)
[2018-12-14] MEDS: LORATADINE 10 MG TAB PO SCH (08:30)
--- NOTE | 2018-12-14 09:21 | CONS ---
Date/Time of Note Date/Time of Note DATE: 12/14/18 TIME: 09:18 Assessment/Plan Assessment/Plan Assessment/Plan Ventilator setting; AC of 16, tidal volume 550, PEEP of 5, 40% FiO2. Patient is currently on fentanyl drip at 100 mics per hour. Assessment and recommendations; 1. Patient admitted with sepsis due to pneumonia as well as CHF with right pleural effusion. Status post right thoracentesis. Without any further recurrence of pleural effusion. 2. Acute renal failure, now requiring hemodialysis. 3. Acute encephalopathy. 4. Status post sigmoid stent placement because of sigmoid mass. 5. Status post cardiac catheterization for evaluation of non-ST elevation [place]. No significant lesions identified. 6. Severe anemia. 7. BPH. Continue current supportive care. Patient scheduled for tracheostomy and G-tube placement. Prognosis is guarded. Result Diagram: 12/13/18 0436 12/13/18 0436 Results 24hrs Laboratory Tests Test 12/13/18 09:25 12/13/18 10:53 12/13/18 16:12 12/13/18 21:38 Bedside Glucose 99 87 95 104 Test 12/14/18 05:34 12/14/18 08:29 Bedside Glucose 118 114 Consultation Date/Type/Reason Admit Date/Time Nov 23, 2018 at 22:01 Initial Consult Date 11/24/18 Type of Consult Pulmonary/critical care Requesting Provider: NAYANA GARCIA 24 HR Interval Summary Free Text/Dictation Patient's condition remains critical. Patient has failed multiple weaning trials from ventilator. Scheduled for tracheostomy and G-tube placement. General exam; elderly male, orally intubated, mildly agitated. Exam/Review of Systems Vital Signs Vitals Vital Signs Date Temp Pulse Resp B/P (MAP) Pulse Ox O2 O2 Flow FiO2 Time Delivery Rate 12/14/18 115 18 97 40 07:55 12/14/18 124/92 Mechanical 05:00 (103) Ventilator 12/14/18 98.3 04:00 Intake and Output 12/13/18 12/13/18 12/14/18 1515:00 23:00 07:00 IntakeIntake Total 705 ml 440 ml 590 ml OutputOutput Total 2100 ml 35 ml 5 ml BalanceBalance -1395 ml 405 ml 585 ml Exam HEENT exam; supple neck, patient has fair dentition. Orally intubated. No neck masses. No lymphadenopathy. Pupils are small bilaterally. Chest exam; diminished but clear breath sounds. S1-S2 audible, no murmurs. Regular rhythm. Abdomen exam; soft, nondistended. No organomegaly. Bowel sounds audible. Extremity exam; trace edema. 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 Medications Medications Current Medications Acetaminophen (Tylenol Liquid) 650 mg Q6H PRN PO PAIN LEVEL 1-3 OR FEVER Last administered on 12/02/18 02:31; Admin Dose 650 MG; Start 11/23/18 at 22:30 Acetaminophen (Tylenol Supp) 650 mg Q4H PRN [place] PAIN LEVEL 1-3 OR FEVER Last administered on 12/02/18 21:21; Admin Dose 650 MG; Start 11/23/18 at 22:30 Atorvastatin Calcium (Lipitor) 20 mg HS PO Last administered on 12/13/18 21:42; Admin Dose 20 MG; Start 11/24/18 at 21:00 Albuterol/ Ipratropium (Duoneb) 3 ml Q4H RESP THERAPY PRN HHN SHORTNESS OF BREATH; Start 11/24/18 at 09:00 Aripiprazole (Abilify) 5 mg DAILY PO Last administered on 12/14/18 08:23; Admin Dose 5 MG; Start 11/24/18 at 09:30 Digoxin (Digoxin) 0.25 mg DAILY@1300 PO Last administered on 11/26/18 13:41; Admin Dose 0.25 MG; Start 11/24/18 at 13:00; Status Hold Escitalopram Oxalate (Lexapro) 20 mg DAILY PO Last administered on 12/14/18 08:23; Admin Dose 20 MG; Start 11/24/18 at 09:30 Loratadine (Claritin) 10 mg DAILY PO Last administered on 12/14/18 08:30; Admin Dose 10 MG; Start 11/24/18 at 10:00 Multivitamins Therapeutic (Theragran) 1 tab DAILY PO Last administered on 12/14/18 08:24; Admin Dose 1 TAB; Start 11/24/18 at 09:30 Potassium Chloride (Micro-K) 8 meq DAILY PO Last administered on 11/24/18 10:12; Admin Dose 8 MEQ; Start 11/24/18 at 10:00; Status Hold Tamsulosin HCl (Flomax) 0.4 mg HS PO Last administered on 12/13/18at 21:41; Admin Dose 0.4 MG; Start 11/24/18 at 21:00 Calcium/Vitamin D (Oyster Shell/ Vit-D (500/200)) 1 tab DAILY PO Last administered on 12/14/18at 08:24; Admin Dose 1 TAB; Start 11/24/18 at 09:30 Metoprolol Tartrate (Lopressor) 5 mg Q4H PRN IV HR>110 Hold SBP<100; Start 11/24/18 at 11:00 Diltiazem HCl (Cardizem Sr) 120 mg DAILY PO ; Start 11/25/18 at 14:00; Status Hold IV Flush (NS 10 ml) 10 ml PRN PRN IV IV PROTOCOL; Start 11/25/18 at 16:00 Hydralazine HCl (Apresoline) 25 mg Q8 PO Last administered on 12/09/18at 13:13; Admin Dose 25 MG; Start 11/26/18 at 22:00 Pantoprazole (Protonix Iv) 40 mg DAILY@06 IV Last administered on 12/14/18at 05:24; Admin Dose 40 MG; Start 11/29/18 at 06:00 Diagnostic Test (Pha) (Accu-Chek) 1 ea 02 XX Last administered on 12/10/18at 01:44; Admin Dose 1 EA; Start 12/01/18 at 02:00 Insulin Aspart (Novolog Insulin Pen) (Adult SC Insulin - Mild Algorithm)... Q4 SC Last administered on 12/08/18at 08:46; Admin Dose 1 UNIT; Start 11/30/18 at 09:00 Miscellaneous Information 1 ea NOTE XX ; Start 11/30/18 at 08:00 Glucose (Glutose) 15 gm Q15M PRN PO DECREASED GLUCOSE; Start 11/30/18 at 08:00 Glucose (Glutose) 22.5 gm Q15M PRN PO DECREASED GLUCOSE; Start 11/30/18 at 08:00 Dextrose (D50w Syringe) 25 ml Q15M PRN IV DECREASED GLUCOSE Last administered on 12/11/18at 21:43; Admin Dose 25 ML; Start 11/30/18 at 08:00 Dextrose (D50w Syringe) 50 ml Q15M PRN IV DECREASED GLUCOSE; Start 11/30/18 at 08:00 Glucagon (Glucagen) 1 mg Q15M PRN IM DECREASED GLUCOSE; Start 11/30/18 at 08:00 Glucose (Glutose) 15 gm Q15M PRN BUCCAL DECREASED GLUCOSE; Start 11/30/18 at 08:00 Midazolam HCl 50 ml @ 1 mls/hr TITRATE IV Last administered on 12/03/18 03:19; Admin Dose 4 MLS/HR; Start 12/02/18 at 07:00 Norepinephrine 16 mg/Dextrose 500 ml @ 1.88 mls/hr TITRATE IV Last administered on 12/09/18 20:04; Admin Dose 1.88 MLS/HR; Start 12/02/18 at 09:30 Fentanyl 100 ml @ 2.5 mls/hr TITRATE IV Last administered on 12/14/18 01:10; Admin Dose 10 MLS/HR; Start 12/02/18 at 10:30 Acetaminophen (Tylenol Tab) 650 mg Q4H PRN PO mild pain Last administered on 12/05/18 01:13; Admin Dose 650 MG; Start 12/02/18 at 12:00 Al Hydrox/Mg Hydrox/Simethicone (Mag-Al Plus) 30 ml Q4H PRN PO GASTROINTESTINAL UPSET; Start 12/02/18 at 12:00 Ondansetron HCl (Zofran Inj) 4 mg Q4H PRN IV NAUSEA AND/OR VOMITING Last adm inistered on 12/07/18 23:27; Admin Dose 4 MG; Start 12/02/18 at 12:00 Collagenase (Santyl) 1 applic DAILY TOP Last administered on 12/14/18 08:24; Admin Dose 1 APPLIC; Start 12/03/18 at 14:00 Aspirin (Aspirin) 81 mg DAILY NGT Last administered on 12/14/18 08:23; Admin Dose 81 MG; Start 12/06/18 at 09:00 Heparin Sodium (Porcine) (Heparin (1000 Units/ml)) 4,000 unit AFTER DIALYSIS CATHETER Last administered on 12/13/18 11:48; Admin Dose 3,000 UNIT; Start 12/08/18 at 09:30 Albumin Human 100 ml @ 100 mls/hr WITH DIALYSIS PRN IV SBP less than 90 mm Hg Last administered on 12/13/18 09:36; Admin Dose 100 MLS/HR; Start 12/08/18 at 09:30 Sodium Chloride (NS) -To prime the dialy... DIRECTED FOR HD PRN IV SBP less than 90 mm Hg; Start 12/08/18 at 09:30 Mannitol 62.5 ml @ 0 mls/hr WITH DIALYSIS PRN IV WITH DIALYSIS Last administered on 12/08/18 22:03; Admin Dose 60 MLS/HR; Start 12/08/18 at 21:00 Fluconazole (Diflucan) 200 mg DAILY NGT Last administered on 12/14/18at 08:23; Admin Dose 200 MG; Start 12/10/18 at 09:00 Dextrose/Sodium Chloride 1,000 ml @ 20 mls/hr Q24H IV Last administered on 12/14/18 06:35; Admin Dose 20 MLS/HR; Start 12/11/18 at 22:00 Haloperidol (Haldol) 1 mg Q6H PRN IV agitation Last administered on 12/14/18at 00:54; Admin Dose 1 MG; Start 12/13/18 at 09:30 Morphine Sulfate (morphine) 2 mg Q2H PRN IV moderate to severe pain Last administered on 12/14/18 05:23; Admin Dose 2 MG; Start 12/14/18 at 05:14 OK SOOD Dec 14, 2018 09:21
--- NOTE | 2018-12-14 10:35 | CONS ---
Date/Time of Note Date/Time of Note DATE: 12/14/18 TIME: 10:34 Assessment/Plan Assessment/Plan Assessment/Plan 1. Non-ST elevation myocardial infarction, currently down trending cardiac enzymes likely a type 2 demand infarct in the setting of fevers, hypercarbic respiratory failure.-downtrended cardiac enzymes. NO cp. Echo this admit 11/24 with NL EF 55%. Now s/p LHC 12/02 with no sig major epicardial obstructive cad. LVEDP 21 - No CP - no intervention currently planned - no further cardiac intervention planned. Stable. 2. Abnormal electrocardiogram- r/o AL- sinus tach - with discomort - ICU team follows. 3. Right bundle branch block - stable by tele. Occasional tachy with agitation. 4. Colonic mass s/p stent placement - GI follows. NO surgery planned. 5. Anemia. 6. Renal failure-worsening- HD to keep euvolemic. Rx as needed. Rx as needed. 7. Leukocytosis/ Sepsi- BP better with anti_bx. 8. Atrial fibrillation-now in SR- con't rate control. 9. .CHF-diastolic acute on chronic - remove fluid with HD 10. Resp failure s/p intubation - pt agitated - not weaning - might need trach - likely heading toward trach. Result Diagram: 12/14/18 0907 12/14/18 0907 Results 24hrs Laboratory Tests Test 12/13/18 10:53 12/13/18 16:12 12/13/18 21:38 12/14/18 05:34 Bedside Glucose 87 95 104 118 Test 12/14/18 08:29 12/14/18 09:07 Bedside Glucose 114 White Blood Count 7.2 Red Blood Count 3.41 L Hemoglobin 8.0 L Hematocrit 29.4 L Mean Corpuscular 86.2 Volume Mean Corpuscular 23.5 L Hemoglobin Mean Corpuscular 27.2 L Hemoglobin Concent Red Cell 28.4 H Distribution Width Platelet Count 269 Mean Platelet Volume Immature 0.400 Granulocytes % Neutrophils % 68.3 Lymphocytes % 15.2 Monocytes % 9.7 Eosinophils % 6.0 Basophils % 0.4 Nucleated Red Blood 0.0 Cells % Immature 0.030 Granulocytes # Neutrophils # 4.9 Lymphocytes # 1.1 Monocytes # 0.7 Eosinophils # 0.4 Basophils # 0.0 Nucleated Red Blood 0.0 Cells # Sodium Level 137 Potassium Level 4.6 Chloride Level 98 Carbon Dioxide Level 31 Anion Gap 8 Blood Urea Nitrogen 23 H Creatinine 3.54 H Est Glomerular Filtrat Rate mL/min Glucose Level 106 Calcium Level 8.9 Phosphorus Level 3.8 Magnesium Level 1.8 Total Bilirubin 0.1 L Direct Bilirubin 0.00 Indirect Bilirubin 0.1 Aspartate Amino 18 Transf (AST/SGOT) Alanine 25 Aminotransferase (AL T/SGPT) Alkaline Phosphatase 77 Total Protein 6.9 Albumin 3.5 Globulin 3.40 H Albumin/Globulin 1.02 Ratio Consultation Date/Type/Reason Admit Date/Time Nov 23, 2018 at 22:01 Initial Consult Date 11/25/18 Requesting Provider: NAYANA GARCIA 24 HR Interval Summary Free Text/Dictation NO acute events - family at beside - poor prognosis overall. ROS: No fever, no chills, no nausea, no vomiting, no diarrhea/constipation - per nurse + tachy Exam/Review of Systems Vital Signs Vitals Vital Signs Date Temp Pulse Resp B/P (MAP) Pulse Ox O2 O2 Flow FiO2 Time Delivery Rate 12/14/18 112 16 96 40 09:54 12/14/18 124/92 Mechanical 05:00 (103) Ventilator 12/14/18 98.3 04:00 Intake and Output 12/13/18 12/13/18 12/14/18 1515:00 23:00 07:00 IntakeIntake Total 705 ml 440 ml 590 ml OutputOutput Total 2100 ml 35 ml 5 ml BalanceBalance -1395 ml 405 ml 585 ml Exam General: WN/WD/NAD, AOx sedated HEENT: Unicetric/atraumatic/EOMI (does not follow commands) NECK: JVD elevated, no thyromegaly - indubated Lymph: no lymphadenopathy HEART: regular with no S3, II/ systolic murmur at apex LUNGS: Coarse sounds ABD: soft, NT, ND, +BS : Intact Neuro: non focal SKIN: chronic changes EXT: trace edema, wounds Medications Medications Current Medications Acetaminophen (Tylenol Liquid) 650 mg Q6H PRN PO PAIN LEVEL 1-3 OR FEVER Last administered on 12/02/18at 02:31; Admin Dose 650 MG; Start 11/23/18 at 22:30 Acetaminophen (Tylenol Supp) 650 mg Q4H PRN [place] PAIN LEVEL 1-3 OR FEVER Last administered on 12/02/18 21:21; Admin Dose 650 MG; Start 11/23/18 at 22:30 Atorvastatin Calcium (Lipitor) 20 mg HS PO Last administered on 12/13/18 21:42; Admin Dose 20 MG; Start 11/24/18 at 21:00 Albuterol/ Ipratropium (Duoneb) 3 ml Q4H RESP THERAPY PRN HHN SHORTNESS OF BREATH; Start 11/24/18 at 09:00 Aripiprazole (Abilify) 5 mg DAILY PO Last administered on 12/14/18 08:23; Admin Dose 5 MG; Start 11/24/18 at 09:30 Digoxin (Digoxin) 0.25 mg DAILY@1300 PO Last administered on 11/26/18 13:41; Admin Dose 0.25 MG; Start 11/24/18 at 13:00; Status Hold Escitalopram Oxalate (Lexapro) 20 mg DAILY PO Last administered on 12/14/18 08:23; Admin Dose 20 MG; Start 11/24/18 at 09:30 Loratadine (Claritin) 10 mg DAILY PO Last administered on 12/14/18 08:30; Admin Dose 10 MG; Start 11/24/18 at 10:00 Multivitamins Therapeutic (Theragran) 1 tab DAILY PO Last administered on 12/14/18 08:24; Admin Dose 1 TAB; Start 11/24/18 at 09:30 Potassium Chloride (Micro-K) 8 meq DAILY PO Last administered on 11/24/18 10:12; Admin Dose 8 MEQ; Start 11/24/18 at 10:00; Status Hold Tamsulosin HCl (Flomax) 0.4 mg HS PO Last administered on 12/13/18 21:41; Admin Dose 0.4 MG; Start 11/24/18 at 21:00 Calcium/Vitamin D (Oyster Shell/ Vit-D (500/200)) 1 tab DAILY PO Last administered on 12/14/18 08:24; Admin Dose 1 TAB; Start 11/24/18 at 09:30 Metoprolol Tartrate (Lopressor) 5 mg Q4H PRN IV HR>110 Hold SBP<100; Start 11/24/18 at 11:00 Diltiazem HCl (Cardizem Sr) 120 mg DAILY PO ; Start 11/25/18 at 14:00; Status Hold IV Flush (NS 10 ml) 10 ml PRN PRN IV IV PROTOCOL; Start 11/25/18 at 16:00 Hydralazine HCl (Apresoline) 25 mg Q8 PO Last administered on 12/09/18at 13:13; Admin Dose 25 MG; Start 11/26/18 at 22:00 Pantoprazole (Protonix Iv) 40 mg DAILY@06 IV Last administered on 12/14/18at 05:24; Admin Dose 40 MG; Start 11/29/18 at 06:00 Diagnostic Test (Pha) (Accu-Chek) 1 ea 02 XX Last administered on 12/10/18at 01:44; Admin Dose 1 EA; Start 12/01/18 at 02:00 Insulin Aspart (Novolog Insulin Pen) (Adult SC Insulin - Mild Algorithm)... Q4 SC Last administered on 12/08/18at 08:46; Admin Dose 1 UNIT; Start 11/30/18 at 09:00 Miscellaneous Information 1 ea NOTE XX ; Start 11/30/18 at 08:00 Glucose (Glutose) 15 gm Q15M PRN PO DECREASED GLUCOSE; Start 11/30/18 at 08:00 Glucose (Glutose) 22.5 gm Q15M PRN PO DECREASED GLUCOSE; Start 11/30/18 at 08:00 Dextrose (D50w Syringe) 25 ml Q15M PRN IV DECREASED GLUCOSE Last administered on 12/11/18at 21:43; Admin Dose 25 ML; Start 11/30/18 at 08:00 Dextrose (D50w Syringe) 50 ml Q15M PRN IV DECREASED GLUCOSE; Start 11/30/18 at 08:00 Glucagon (Glucagen) 1 mg Q15M PRN IM DECREASED GLUCOSE; Start 11/30/18 at 08:00 Glucose (Glutose) 15 gm Q15M PRN BUCCAL DECREASED GLUCOSE; Start 11/30/18 at 08:00 Midazolam HCl 50 ml @ 1 mls/hr TITRATE IV Last administered on 12/03/18at 03:19; Admin Dose 4 MLS/HR; Start 12/02/18 at 07:00 Norepinephrine 16 mg/Dextrose 500 ml @ 1.88 mls/hr TITRATE IV Last administered on 12/09/18at 20:04; Admin Dose 1.88 MLS/HR; Start 12/02/18 at 09:30 Fentanyl 100 ml @ 2.5 mls/hr TITRATE IV Last administered on 12/14/18 01:10; Admin Dose 10 MLS/HR; Start 12/02/18 at 10:30 Acetaminophen (Tylenol Tab) 650 mg Q4H PRN PO mild pain Last administered on 12/05/18 01:13; Admin Dose 650 MG; Start 12/02/18 at 12:00 Al Hydrox/Mg Hydrox/Simethicone (Mag-Al Plus) 30 ml Q4H PRN PO GASTROINTESTINAL UPSET; Start 12/02/18 at 12:00 Ondansetron HCl (Zofran Inj) 4 mg Q4H PRN IV NAUSEA AND/OR VOMITING Last administered on 12/07/18 23:27; Admin Dose 4 MG; Start 12/02/18 at 12:00 Collagenase (Santyl) 1 applic DAILY TOP Last administered on 12/14/18 08:24; Admin Dose 1 APPLIC; Start 12/03/18 at 14:00 Aspirin (Aspirin) 81 mg DAILY NGT Last administered on 12/14/18 08:23; Admin Dose 81 MG; Start 12/06/18 at 09:00 Heparin Sodium (Porcine) (Heparin (1000 Units/ml)) 4,000 unit AFTER DIALYSIS CATHETER Last administered on 12/13/18 11:48; Admin Dose 3,000 UNIT; Start 12/08/18 at 09:30 Albumin Human 100 ml @ 100 mls/hr WITH DIALYSIS PRN IV SBP less than 90 mm Hg Last administered on 12/13/18 09:36; Admin Dose 100 MLS/HR; Start 12/08/18 at 09:30 Sodium Chloride (NS) -To prime the dialy... DIRECTED FOR HD PRN IV SBP less than 90 mm Hg; Start 12/08/18 at 09:30 Mannitol 62.5 ml @ 0 mls/hr WITH DIALYSIS PRN IV WITH DIALYSIS Last administered on 12/08/18 22:03; Admin Dose 60 MLS/HR; Start 12/08/18 at 21:00 Fluconazole (Diflucan) 200 mg DAILY NGT Last administered on 12/14/18 08:23; Admin Dose 200 MG; Start 12/10/18 at 09:00 Dextrose/Sodium Chloride 1,000 ml @ 20 mls/hr Q24H IV Last administered on 12/14/18at 06:35; Admin Dose 20 MLS/HR; Start 12/11/18 at 22:00 Haloperidol (Haldol) 1 mg Q6H PRN IV agitation Last administered on 12/14/18at 00:54; Admin Dose 1 MG; Start 12/13/18 at 09:30 Morphine Sulfate (morphine) 2 mg Q2H PRN IV moderate to severe pain Last administered on 12/14/18at 05:23; Admin Dose 2 MG; Start 12/14/18 at 05:14 SCARLET HARDWICK MD Dec 14, 2018 10:35
--- NOTE | 2018-12-14 11:12 | NUR ---
SS NOTE: F/U MET WITH PT'S SON WHO REPORTED THAT THE PLAN IS FOR PT TO HAVE A TRACH. SON HOPING THAT PT WILL BE MORE COMFORTABLE WITH A TRACH. STATED THAT HE FEELS THAT PT WANTS TO SPEAK TO HIM BUT GETS FRUSTRATED BECAUSE OF THE ET TUBE. SW PROVIDED EMOTIONAL SUPPORT. INFORMED SON THAT PT MIGHT NOT BE ABLE TO SPEAK AT FIRST BUT FAMILY MIGHT BE ABLE TO READY HIS LIPS OR HAVE PT WRITE AND COMMUNICATE THAT WAY. SON VERBALIZED UNDERSTANDING. SW WILL CONTINUE TO REMAIN AVAILABLE NEEDED.
[2018-12-14] MEDS ORDERED: MAGNESIUM SULFATE 2 GM/50 ML 50 ML IVPB ONE (12:00)
--- NOTE | 2018-12-14 12:00 | NUR ---
ELECTROLYTES REPORTED ELECTROLYTES REPORTED TO MD PATTERSON. ORDERS RECEIVED.
--- NOTE | 2018-12-14 12:09 | CONS ---
Assessment/Plan Assessment/Plan Assessment/Plan 1. Oliguric Acute on chronic renal failure due to Sepsis and Hemodynamics + obstructive uropathy - Worsening causing uremic encephalopathy 2. atrial fibrillation with RVR- now rate controlled 3. acute hypoxemic and hypercapnic resp failure due to PNA - failed BIPAP; intubated 4. Sepsis 5. Positive troponin 6. BPH on flomax 7. Colon CA Plan: Started on HD on 12/08/18- HD ordered for thursday- will keep pt on MWF schedule from now.- pt currently has Temporary pat HD catheter, will wait for pt to be more stable before switching it to Permacath s/p Tracheostomy placement by CT surgery on 12/14/18- S/p LHC which showed moderate Nonobstructive CAD - medical management SP Colonoscopy with stent placement by GI Full code d/w pt son at bedside -still want to keep his dad Full code and want to continue HD will follow up Result Diagram: 12/14/18 0907 12/14/18 0907 Results 24hrs Laboratory Tests Test 12/13/18 16:12 12/13/18 21:38 12/14/18 05:34 12/14/18 08:29 Bedside Glucose 95 104 118 114 Test 12/14/18 09:07 White Blood Count 7.2 Red Blood Count 3.41 L Hemoglobin 8.0 L Hematocrit 29.4 L Mean Corpuscular 86.2 Volume Mean Corpuscular 23.5 L Hemoglobin Mean Corpuscular 27.2 L Hemoglobin Concent Red Cell 28.4 H Distribution Width Platelet Count 269 Mean Platelet Volume Immature 0.400 Granulocytes % Neutrophils % 68.3 Lymphocytes % 15.2 Monocytes % 9.7 Eosinophils % 6.0 Basophils % 0.4 Nucleated Red Blood 0.0 Cells % Immature 0.030 Granulocytes # Neutrophils # 4.9 Lymphocytes # 1.1 Monocytes # 0.7 Eosinophils # 0.4 Basophils # 0.0 Nucleated Red Blood 0.0 Cells # Sodium Level 137 Potassium Level 4.6 Chloride Level 98 Carbon Dioxide Level 31 Anion Gap 8 Blood Urea Nitrogen 23 H Creatinine 3.54 H Est Glomerular Filtrat Rate mL/min Glucose Level 106 Calcium Level 8.9 Phosphorus Level 3.8 Magnesium Level 1.8 Total Bilirubin 0.1 L Direct Bilirubin 0.00 Indirect Bilirubin 0.1 Aspartate Amino 18 Transf (AST/SGOT) Alanine 25 Aminotransferase (AL T/SGPT) Alkaline Phosphatase 77 Total Protein 6.9 Albumin 3.5 Globulin 3.40 H Albumin/Globulin 1.02 Ratio Consultation Date/Type/Reason Admit Date/Time Nov 23, 2018 at 22:01 Initial Consult Date 11/24/18 Type of Consult NEPHROLOGY Requesting Provider: NAYANA GARCIA 24 HR Interval Summary Free Text/Dictation pt remains intuated, plan for tracheostomy, HD ordered for tomorrow Exam/Review of Systems Vital Signs Vitals Vital Signs Date Temp Pulse Resp B/P (MAP) Pulse Ox O2 O2 Flow FiO2 Time Delivery Rate 12/14/18 108 17 98 40 11:58 12/14/18 113/57 Mechanical 10:00 (75) Ventilator 12/14/18 98.8 08:00 Intake and Output 12/13/18 12/13/18 12/14/18 1515:00 23:00 07:00 IntakeIntake Total 705 ml 440 ml 590 ml OutputOutput Total 2100 ml 35 ml 5 ml BalanceBalance -1395 ml 405 ml 585 ml Exam Constitutional: moderate distress, intubated on ventilator, ET tube in place Respiratory: Bilateral coarse BS+, basilar crackles Cardiovascular: regular rate and rhythm, nl pulses Gastrointestinal: soft, non-tender Musculoskeletal: 1-2+ pitting edema , + hess catheter Neurological: Uncooperative for neuro exam Medications Medications Current Medications Acetaminophen (Tylenol Liquid) 650 mg Q6H PRN PO PAIN LEVEL 1-3 OR FEVER Last administered on 12/02/18at 02:31; Admin Dose 650 MG; Start 11/23/18 at 22:30 Acetaminophen (Tylenol Supp) 650 mg Q4H PRN [place] PAIN LEVEL 1-3 OR FEVER Last administered on 12/02/18at 21:21; Admin Dose 650 MG; Start 11/23/18 at 22:30 Atorvastatin Calcium (Lipitor) 20 mg HS PO Last administered on 12/13/18at 21:42; Admin Dose 20 MG; Start 11/24/18 at 21:00 Albuterol/ Ipratropium (Duoneb) 3 ml Q4H RESP THERAPY PRN HHN SHORTNESS OF BREATH; Start 11/24/18 at 09:00 Aripiprazole (Abilify) 5 mg DAILY PO Last administered on 12/14/18at 08:23; Admin Dose 5 MG; Start 11/24/18 at 09:30 Digoxin (Digoxin) 0.25 mg DAILY@1300 PO Last administered on 11/26/18 13:41; Admin Dose 0.25 MG; Start 11/24/18 at 13:00; Status Hold Escitalopram Oxalate (Lexapro) 20 mg DAILY PO Last administered on 12/14/18at 08:23; Admin Dose 20 MG; Start 11/24/18 at 09:30 Loratadine (Claritin) 10 mg DAILY PO Last administered on 12/14/18at 08:30; Admin Dose 10 MG; Start 11/24/18 at 10:00 Multivitamins Therapeutic (Theragran) 1 tab DAILY PO Last administered on 12/14/18 08:24; Admin Dose 1 TAB; Start 11/24/18 at 09:30 Potassium Chloride (Micro-K) 8 meq DAILY PO Last administered on 11/24/18at 10:12; Admin Dose 8 MEQ; Start 11/24/18 at 10:00; Status Hold Tamsulosin HCl (Flomax) 0.4 mg HS PO Last administered on 12/13/18at 21:41; Admin Dose 0.4 MG; Start 11/24/18 at 21:00 Calcium/Vitamin D (Oyster Shell/ Vit-D (500/200)) 1 tab DAILY PO Last administered on 12/14/18at 08:24; Admin Dose 1 TAB; Start 11/24/18 at 09:30 Metoprolol Tartrate (Lopressor) 5 mg Q4H PRN IV HR>110 Hold SBP<100; Start 11/24/18 at 11:00 Diltiazem HCl (Cardizem Sr) 120 mg DAILY PO ; Start 11/25/18 at 14:00; Status Hold IV Flush (NS 10 ml) 10 ml PRN PRN IV IV PROTOCOL; Start 11/25/18 at 16:00 Hydralazine HCl (Apresoline) 25 mg Q8 PO Last administered on 12/09/18at 13:13; Admin Dose 25 MG; Start 11/26/18 at 22:00 Pantoprazole (Protonix Iv) 40 mg DAILY@06 IV Last administered on 12/14/18at 05:24; Admin Dose 40 MG; Start 11/29/18 at 06:00 Diagnostic Test (Pha) (Accu-Chek) 1 ea 02 XX Last administered on 12/10/18at 01:44; Admin Dose 1 EA; Start 12/01/18 at 02:00 Insulin Aspart (Novolog Insulin Pen) (Adult SC Insulin - Mild Algorithm)... Q4 SC Last administered on 12/08/18at 08:46; Admin Dose 1 UNIT; Start 11/30/18 at 09:00 Miscellaneous Information 1 ea NOTE XX ; Start 11/30/18 at 08:00 Glucose (Glutose) 15 gm Q15M PRN PO DECREASED GLUCOSE; Start 11/30/18 at 08:00 Glucose (Glutose) 22.5 gm Q15M PRN PO DECREASED GLUCOSE; Start 11/30/18 at 08:00 Dextrose (D50w Syringe) 25 ml Q15M PRN IV DECREASED GLUCOSE Last administered on 12/11/18at 21:43; Admin Dose 25 ML; Start 11/30/18 at 08:00 Dextrose (D50w Syringe) 50 ml Q15M PRN IV DECREASED GLUCOSE; Start 11/30/18 at 08:00 Glucagon (Glucagen) 1 mg Q15M PRN IM DECREASED GLUCOSE; Start 11/30/18 at 08:00 Glucose (Glutose) 15 gm Q15M PRN BUCCAL DECREASED GLUCOSE; Start 11/30/18 at 08:00 Midazolam HCl 50 ml @ 1 mls/hr TITRATE IV Last administered on 12/03/18at 03:19; Admin Dose 4 MLS/HR; Start 12/02/18 at 07:00 Norepinephrine 16 mg/Dextrose 500 ml @ 1.88 mls/hr TITRATE IV Last administered on 12/09/18at 20:04; Admin Dose 1.88 MLS/HR; Start 12/02/18 at 09:30 Fentanyl 100 ml @ 2.5 mls/hr TITRATE IV Last administered on 12/14/18at 10:46; Admin Dose 10 MLS/HR; Start 12/02/18 at 10:30 Acetaminophen (Tylenol Tab) 650 mg Q4H PRN PO mild pain Last administered on 12/05/18at 01:13; Admin Dose 650 MG; Start 12/02/18 at 12:00 Al Hydrox/Mg Hydrox/Simethicone (Mag-Al Plus) 30 ml Q4H PRN PO GASTROINTESTINAL UPSET; Start 12/02/18 at 12:00 Ondansetron HCl (Zofran Inj) 4 mg Q4H PRN IV NAUSEA AND/OR VOMITING Last administered on 12/07/18 23:27; Admin Dose 4 MG; Start 12/02/18 at 12:00 Collagenase (Santyl) 1 applic DAILY TOP Last administered on 12/14/18 08:24; Admin Dose 1 APPLIC; Start 12/03/18 at 14:00 Aspirin (Aspirin) 81 mg DAILY NGT Last administered on 12/14/18 08:23; Admin Dose 81 MG; Start 12/06/18 at 09:00 Heparin Sodium (Porcine) (Heparin (1000 Units/ml)) 4,000 unit AFTER DIALYSIS CATHETER Last administered on 12/13/18 11:48; Admin Dose 3,000 UNIT; Start 12/08/18 at 09:30 Albumin Human 100 ml @ 100 mls/hr WITH DIALYSIS PRN IV SBP less than 90 mm Hg Last administered on 12/13/18 09:36; Admin Dose 100 MLS/HR; Start 12/08/18 at 09:30 Sodium Chloride (NS) -To prime the dialy... DIRECTED FOR HD PRN IV SBP less than 90 mm Hg; Start 12/08/18 at 09:30 Mannitol 62.5 ml @ 0 mls/hr WITH DIALYSIS PRN IV WITH DIALYSIS Last adm inistered on 12/08/18at 22:03; Admin Dose 60 MLS/HR; Start 12/08/18 at 21:00 Fluconazole (Diflucan) 200 mg DAILY NGT Last administered on 12/14/18 08:23; Admin Dose 200 MG; Start 12/10/18 at 09:00 Dextrose/Sodium Chloride 1,000 ml @ 20 mls/hr Q24H IV Last administered on 12/14/18 06:35; Admin Dose 20 MLS/HR; Start 12/11/18 at 22:00 Haloperidol (Haldol) 1 mg Q6H PRN IV agitation Last administered on 12/14/18 00:54; Admin Dose 1 MG; Start 12/13/18 at 09:30 Morphine Sulfate (morphine) 2 mg Q2H PRN IV moderate to severe pain Last administered on 12/14/18 05:23; Admin Dose 2 MG; Start 12/14/18 at 05:14 Magnesium Sulfate 50 ml @ 25 mls/hr ONCE ONCE IVPB ; Start 12/14/18 at 12:00; Stop 12/14/18 at 13:59 Date/Time of Note Date/Time of Note DATE: 12/14/18 TIME: 12:08 RENAN HERNANDEZ MD Dec 14, 2018 12:08
--- NOTE | 2018-12-14 13:29 | PN ---
Date/Time of Note Date/Time of Note DATE: 12/14/18 TIME: 13:29 Assessment/Plan Lines/Catheters IV Catheter Type (from [facility]): hd catheter [place] in Place (from [facility]): Yes Assessment/Plan Chief Complaint/Hosp Course -Bilateral lower extremity atherosclerosis: It seems the patient has nonpalpable pedal pulses at the moment. The patient does not have any significant tissue loss or ulcerations that would require any further vascular intervention. We will plan to continue to monitor the patient's followup. The patient is currently on vasopressors and intubated. Not much vascular option can be provided. -Renal failure: It seems the patient has developed acute on chronic kidney disease in which his renal failure has worsened requiring dialysis with signific ant uremia. -S/P Right femoral Duong catheter placement -Will plan to continue the patient's progression and should he need a permanent dialysis catheter and/or access creation. -Optimize vascular status (BP meds, diet, nutrition, exercise, sugar control, and antiplatelets). -Discussed findings, plan, and management with the patient's son at the bedside; he agreed to proceed understanding all that is involved. -Thank you for allowing us to partake in the care of your patient. Please call with any questions. Subjective 24 Hr Interval Summary no new vascular events overnight Exam/Review of Systems Vital Signs Vitals Vital Signs Date Temp Pulse Resp B/P (MAP) Pulse Ox O2 O2 Flow FiO2 Time Delivery Rate 12/14/18 106 12:00 12/14/18 17 98 40 11:58 12/14/18 113/57 Mechanical 10:00 (75) Ventilator 12/14/18 98.8 08:00 Intake and Output 12/13/18 12/13/18 12/14/18 1515:00 23:00 07:00 IntakeIntake Total 705 ml 440 ml 590 ml OutputOutput Total 2100 ml 35 ml 5 ml BalanceBalance -1395 ml 405 ml 585 ml Exam Free Text/Dictation GENERAL: Intubated and sedated, and comfortable. HEENT: Normocephalic, atraumatic. Mucosa moist. NECK: Supple. No carotid bruit. Right internal jugular vein, triple lumen catheter. CARDIOVASCULAR: S1 and S2 present, irregular. PULMONARY: Coarse breath sounds bilaterally, crackles at the bases. His ET tube intact. ABDOMEN: Soft, nontender, and nondistended. Bowel sounds positive. Truncal obesity. RIGHT LOWER EXTREMITY: Palpable femoral pulse. Nonpalpable pedal pulse. Motor and sensory unable to ascertain as the patient is intubated. Edema of 2+. Lucero, a dry ulcer. groin catheter intact LEFT LOWER EXTREMITY: Palpable femoral pulse. Nonpalpable pedal pulse. Motor and sensory unable to ascertain as the patient is intubated and sedated. Capillary refill 3 to 4 seconds. Edema of 1 to 2+. Results Result Diagram: 12/14/18 0907 12/14/18 0907 MARY VASQUEZ MD Dec 14, 2018 13:29
--- NOTE | 2018-12-14 13:32 | PN ---
Date/Time of Note Date/Time of Note DATE: 12/14/18 TIME: 13:30 Assessment/Plan VTE Prophylaxis Risk score (from Ns)>0 risk: 11 SCD applied (from Ns): Yes Pharmacological prophylaxis: NA/contraindicated Pharm contraindication: surgical contra Lines/Catheters IV Catheter Type (from [facility] hd catheter Urinary Cath still in place: Yes Reason Cath still needed: other (indicate) (intubated) Assessment/Plan Assessment/Plan 78-year-old male recently diagnosed with new colon mass, who presents with: # Hypoxic and hypercapnic respiratory failure: Appears to be due to pulmonary edema and possible pneumonia - Failed BiPAP, intubated 12/02. Presently still intubated, has failed CPAP trial the last few days. - Not requiring IV pressors - Continue Daily weaning trials per pulmonary recommendations - Plan for trach and PEG. # Sepsis: - Secondary to likely fungal UTI now, as well upper resp infection as well, as UA positive and urine culture showing Rosalie growth greater than 100,000 colony-forming units - For now continue fluconazole, white blood cell count normal, no fevers # Cardiac- elevated troponins: - Got cardiac cath 12/02, clear coronaries. -Continue aspirin and statin for now # Sigmoid mass: Status post biopsy during recent hospitalization. 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 Mass is almost completely obstructive. Patient received rectal stent on December [address] Fang. -Monitor for now, Per discussion between hospitalist and Dr. Juan on 12/01, patient is not currently a surgical candidate due to his acute illness but may get surgery if he improves. -Per hematology oncology, it appears he has localized disease. Per their input, surgical resection is optimal treatment if he ever becomes stable for surgery. They have also stated typically radiation has no role in localized colon ca (radiation can play a role in palliative tx of met colon if painful site of metastatic disease for example). # Atrial fibrillation with RVR - resolved now -Continue to monitor, follow-up cardiology recommendations # Renal insufficiency: Oliguric acute on chronic renal failure. This was likely due to obstructive uropathy Being followed by renal team. Again received PermCath earlier and now on dialysis. -Continue monitor urine output, and continue dialysis per renal recommendations -Per renal team will next schedule patient for Thursday, Thursday, Thursday dialysis schedule #Hypernatremia -resolved -Monitor for now # Diabetes: Sugar stable, continue insulin while in-house DVT: Heparin GI: PPI Code status: Full. Family wants everything done to treat his multiorgan failure and cancer. Plan for trach and PEG. Critical care time spent on patient care today equals 40 minutes. Result Diagram: 12/14/1890612/14/18 09 Results 24hrs Laboratory Tests Test 12/13/18 16:12 12/13/18 21:38 12/14/18 05:34 12/14/18 08:29 Bedside Glucose 95 104 118 114 Test 12/14/18 09:07 12/14/18 13:11 White Blood Count 7.2 Red Blood Count 3.41 L Hemoglobin 8.0 L Hematocrit 29.4 L Mean Corpuscular 86.2 Volume Mean Corpuscular 23.5 L Hemoglobin Mean Corpuscular 27.2 L Hemoglobin Concent Red Cell 28.4 H Distribution Width Platelet Count 269 Mean Platelet Volume Immature 0.400 Granulocytes % Neutrophils % 68.3 Lymphocytes % 15.2 Monocytes % 9.7 Eosinophils % 6.0 Basophils % 0.4 Nucleated Red Blood 0.0 Cells % Immature 0.030 Granulocytes # Neutrophils # 4.9 Lymphocytes # 1.1 Monocytes # 0.7 Eosinophils # 0.4 Basophils # 0.0 Nucleated Red Blood 0.0 Cells # Sodium Level 137 Potassium Level 4.6 Chloride Level 98 Carbon Dioxide Level 31 Anion Gap 8 Blood Urea Nitrogen 23 H Creatinine 3.54 H Est Glomerular Filtrat Rate mL/min Glucose Level 106 Calcium Level 8.9 Phosphorus Level 3.8 Magnesium Level 1.8 Total Bilirubin 0.1 L Direct Bilirubin 0.00 Indirect Bilirubin 0.1 Aspartate Amino 18 Transf (AST/SGOT) Alanine 25 Aminotransferase (AL T/SGPT) Alkaline Phosphatase 77 Total Protein 6.9 Albumin 3.5 Globulin 3.40 H Albumin/Globulin 1.02 Ratio Bedside Glucose 95 Subjective 24 Hr Interval Summary Free Text/Dictation Patient intubated, sedated this morning. Exam/Review of Systems Vital Signs Vitals Vital Signs Date Temp Pulse Resp B/P (MAP) Pulse Ox O2 O2 Flow FiO2 Time Delivery Rate 12/14/18 106 12:00 12/14/18 17 98 40 11:58 12/14/18 113/57 Mechanical 10:00 (75) Ventilator 12/14/18 98.8 08:00 Intake and Output 12/13/18 12/13/18 12/14/18 1414:59 22:59 06:59 IntakeIntake Total 710 ml 440 ml 645 ml OutputOutput Total 2100 ml 30 ml 10 ml BalanceBalance -1390 ml 410 ml 635 ml Exam Const: Lying in bed, intubated Head: Atraumatic, normocephalic Eyes: Normal Conjunctiva, pupils miotic nonreactive, normal sclera, no nystagmus ENT: Normal External Ears, ET tube in place. Neck: Supple. R IJ line in place. Resp: Mechanical breath sounds bilaterally. Cardio: Regular rate and rhythm, no murmurs, S1 S2 present Abd: Soft, non tender x 4, slight distention. Normal bowel sounds, no guarding or rebound Ext: No cyanosis, or edema. R fem line in place. Medications Medications Current Medications Acetaminophen (Tylenol Liquid) 650 mg Q6H PRN PO PAIN LEVEL 1-3 OR FEVER Last administered on 12/02/18at 02:31; Admin Dose 650 MG; Start 11/23/18 at 22:30 Acetaminophen (Tylenol Supp) 650 mg Q4H PRN [place] PAIN LEVEL 1-3 OR FEVER Last administered on 12/02/18at 21:21; Admin Dose 650 MG; Start 11/23/18 at 22:30 Atorvastatin Calcium (Lipitor) 20 mg HS PO Last administered on 12/13/18at 21:42; Admin Dose 20 MG; Start 11/24/18 at 21:00 Albuterol/ Ipratropium (Duoneb) 3 ml Q4H RESP THERAPY PRN HHN SHORTNESS OF BREATH; Start 11/24/18 at 09:00 Aripiprazole (Abilify) 5 mg DAILY PO Last administered on 12/14/18at 08:23; Admin Dose 5 MG; Start 11/24/18 at 09:30 Digoxin (Digoxin) 0.25 mg DAILY@1300 PO Last administered on 11/26/18at 13:41; Admin Dose 0.25 MG; Start 11/24/18 at 13:00; Status Hold Escitalopram Oxalate (Lexapro) 20 mg DAILY PO Last administered on 12/14/18 08:23; Admin Dose 20 MG; Start 11/24/18 at 09:30 Loratadine (Claritin) 10 mg DAILY PO Last administered on 12/14/18at 08:30; Admin Dose 10 MG; Start 11/24/18 at 10:00 Multivitamins Therapeutic (Theragran) 1 tab DAILY PO Last administered on 12/14/18at 08:24; Admin Dose 1 TAB; Start 11/24/18 at 09:30 Potassium Chloride (Micro-K) 8 meq DAILY PO Last administered on 11/24/18at 10:12; Admin Dose 8 MEQ; Start 11/24/18 at 10:00; Status Hold Tamsulosin HCl (Flomax) 0.4 mg HS PO Last administered on 12/13/18at 21:41; Admin Dose 0.4 MG; Start 11/24/18 at 21:00 Calcium/Vitamin D (Oyster Shell/ Vit-D (500/200)) 1 tab DAILY PO Last administ ered on 12/14/18at 08:24; Admin Dose 1 TAB; Start 11/24/18 at 09:30 Metoprolol Tartrate (Lopressor) 5 mg Q4H PRN IV HR>110 Hold SBP<100; Start 11/24/18 at 11:00 Diltiazem HCl (Cardizem Sr) 120 mg DAILY PO ; Start 11/25/18 at 14:00; Status Hold IV Flush (NS 10 ml) 10 ml PRN PRN IV IV PROTOCOL; Start 11/25/18 at 16:00 Hydralazine HCl (Apresoline) 25 mg Q8 PO Last administered on 12/14/18at 13:15; Admin Dose 25 MG; Start 11/26/18 at 22:00 Pantoprazole (Protonix Iv) 40 mg DAILY@06 IV Last administered on 12/14/18at 05:24; Admin Dose 40 MG; Start 11/29/18 at 06:00 Diagnostic Test (Pha) (Accu-Chek) 1 ea 02 XX Last administered on 12/10/18at 01:44; Admin Dose 1 EA; Start 12/01/18 at 02:00 Insulin Aspart (Novolog Insulin Pen) (Adult SC Insulin - Mild Algorithm)... Q4 SC Last administered on 12/08/18at 08:46; Admin Dose 1 UNIT; Start 11/30/18 at 09:00 Miscellaneous Information 1 ea NOTE XX ; Start 11/30/18 at 08:00 Glucose (Glutose) 15 gm Q15M PRN PO DECREASED GLUCOSE; Start 11/30/18 at 08:00 Glucose (Glutose) 22.5 gm Q15M PRN PO DECREASED GLUCOSE; Start 11/30/18 at 08:00 Dextrose (D50w Syringe) 25 ml Q15M PRN IV DECREASED GLUCOSE Last administered on 12/11/18at 21:43; Admin Dose 25 ML; Start 11/30/18 at 08:00 Dextrose (D50w Syringe) 50 ml Q15M PRN IV DECREASED GLUCOSE; Start 11/30/18 at 08:00 Glucagon (Glucagen) 1 mg Q15M PRN IM DECREASED GLUCOSE; Start 11/30/18 at 08:00 Glucose (Glutose) 15 gm Q15M PRN BUCCAL DECREASED GLUCOSE; Start 11/30/18 at 08:00 Midazolam HCl 50 ml @ 1 mls/hr TITRATE IV Last administered on 12/03/18at 03:19; Admin Dose 4 MLS/HR; Start 12/02/18 at 07:00 Norepinephrine 16 mg/Dextrose 500 ml @ 1.88 mls/hr TITRATE IV Last administered on 12/09/18at 20:04; Admin Dose 1.88 MLS/HR; Start 12/02/18 at 09:30 Fentanyl 100 ml @ 2.5 mls/hr TITRATE IV Last administered on 12/14/18at 10:46; Admin Dose 10 MLS/HR; Start 12/02/18 at 10:30 Acetaminophen (Tylenol Tab) 650 mg Q4H PRN PO mild pain Last administered on 12/05/18at 01:13; Admin Dose 650 MG; Start 12/02/18 at 12:00 Al Hydrox/Mg Hydrox/Simethicone (Mag-Al Plus) 30 ml Q4H PRN PO GASTROINTESTINAL UPSET; Start 12/02/18 at 12:00 Ondansetron HCl (Zofran Inj) 4 mg Q4H PRN IV NAUSEA AND/OR VOMITING Last administered on 12/07/18at 23:27; Admin Dose 4 MG; Start 12/02/18 at 12:00 Collagenase (Santyl) 1 applic DAILY TOP Last administered on 12/14/18 08:24; Admin Dose 1 APPLIC; Start 12/03/18 at 14:00 Aspirin (Aspirin) 81 mg DAILY NGT Last administered on 12/14/18 08:23; Admin Dose 81 MG; Start 12/06/18 at 09:00 Heparin Sodium (Porcine) (Heparin (1000 Units/ml)) 4,000 unit AFTER DIALYSIS CATHETER Last administered on 12/13/18 11:48; Admin Dose 3,000 UNIT; Start 12/08/18 at 09:30 Albumin Human 100 ml @ 100 mls/hr WITH DIALYSIS PRN IV SBP less than 90 mm Hg Last administered on 12/13/18 09:36; Admin Dose 100 MLS/HR; Start 12/08/18 at 09:30 Sodium Chloride (NS) -To prime the dialy... DIRECTED FOR HD PRN IV SBP less than 90 mm Hg; Start 12/08/18 at 09:30 Mannitol 62.5 ml @ 0 mls/hr WITH DIALYSIS PRN IV WITH DIALYSIS Last administered on 12/08/18 22:03; Admin Dose 60 MLS/HR; Start 12/08/18 at 21:00 Fluconazole (Diflucan) 200 mg DAILY NGT Last administered on 12/14/18 08:23; Admin Dose 200 MG; Start 12/10/18 at 09:00 Dextrose/Sodium Chloride 1,000 ml @ 20 mls/hr Q24H IV Last administered on 12/14/18 06:35; Admin Dose 20 MLS/HR; Start 12/11/18 at 22:00 Haloperidol (Haldol) 1 mg Q6H PRN IV agitation Last administered on 12/14/18 13:24; Admin Dose 1 MG; Start 12/13/18 at 09:30 Morphine Sulfate (morphine) 2 mg Q2H PRN IV moderate to severe pain Last administered on 12/14/18 05:23; Admin Dose 2 MG; Start 12/14/18 at 05:14 Magnesium Sulfate 50 ml @ 25 mls/hr ONCE ONCE IVPB Last administered on 12/14/18 13:14; Admin Dose 25 MLS/HR; Start 12/14/18 at 12:00; Stop 12/14/18 at 13:59 TWAN PATTERSON MD Dec 14, 2018 13:32
--- NOTE | 2018-12-14 14:02 | NUR ---
HD SCHEDULE CALLED [facility] FOR HD TOMORROW AM. CONFIRMATION NUMBER [id number].
[2018-12-14] MEDS ORDERED: DOPamine-D5W 1.6 MG/ML 250 ML IV PRN (16:30)
--- NOTE | 2018-12-14 16:34 | NUR ---
PT HAD PAUSES PT HAD 3 PAUSES IN 30 MINUTES, LASTING BETWEEN 2-4.4 SECS. MD PATTERSON WAS MADE AWARE. MD HARDWICK WAS ALSO MADE AWARE. ORDERS RECEIVED FROM MD HARDWICK.
[2018-12-14] MEDS ORDERED: LIDOCAINE 100 MG SYRINGE ONE (16:40)
[2018-12-14] MEDS ORDERED: FENTAnyl 50 MCG/ML VIAL ONE ×2 (16:40→18:11)
[2018-12-14] MEDS ORDERED: PROPOFOL 20 ML ONE (16:40)
--- NOTE | 2018-12-14 16:52 | PREAC ---
Date/Time of Note Date/Time of Note DATE: 12/14/18 TIME: 16:49 Anesthesia Eval and Record Evaluation Time Pre-Procedure Interview DATE: 12/14/18 TIME: 16:49 Age 78 Sex male NPO: 8 hrs Preoperative diagnosis DYSPHAGIA Planned procedure EGD, PEG PLACEMENT Past Medical History Past Medical History: Includes Cardio: Other (POSITIVE TROPONINS, CLEAR CORONARIES ON THE CATH) Endo: Diabetes Pulm: Other (RESPIRATORY FAILURE, INTUBATED) GI: Other (COLON CANCER) Infection(s): Other (SEPSIS) Surgery & Anesthesia Issues No known issue Meds Anticoagulation: No Beta Vivian within 24 hr: No Reason Beta Vivian not given: Pt. not on B-Vivian Active Scripts Pantoprazole (Protonix) 40 Mg Tabec, 40 MG PO BID, #60 TAB 1 Refill Prov:JOSENAYANA S. 11/22/18 Reported Medications Calcium Citrate/Vitamin D (Citracal-Vitamin D 200 MG-250) 1 Each Tablet, 1 EACH PO BID, TAB 11/19/18 Ibuprofen* (Ibuprofen*) 600 Mg Tablet, 600 MG PO Q6H PRN for PAIN LEVEL 1-5, TAB 11/19/18 Hydralazine Hcl* (Hydralazine Hcl*) 50 Mg Tablet, 50 MG PO Q6H, #60 TAB 11/19/18 Metformin* (Glucophage*) 500 Mg Tab, 500 MG PO WITH BREAKFAST, #30 TAB 11/19/18 Multivitamins* (Theragran*) 1 Tab Tab, 1 TAB PO DAILY, TAB 11/19/18 Aripiprazole* (Abilify*) 5 Mg Tab, 5 MG PO DAILY, #30 TAB 11/19/18 Diltiazem Hcl* (Cardizem SR*) 120 Mg Cap.sr.12h, 120 MG PO Q12, CAP 11/19/18 Pioglitazone Hcl* (Pioglitazone Hcl*) 30 Mg Tablet, 30 MG PO DAILY, TAB 11/19/18 Escitalopram Oxalate* (Escitalopram Oxalate*) 20 Mg Tablet, 20 MG PO DAILY, #30 TAB 11/19/18 Benazepril Hcl* (Benazepril Hcl*) 20 Mg Tablet, 20 MG PO DAILY, #30 TAB 11/19/18 Tamsulosin Hcl* (Tamsulosin Hcl*) 0.4 Mg Cap.er.24h, 0.4 MG PO HS, CAP 11/19/18 Aspirin Ec (Aspir 81) 81 Mg Tablet.dr, 81 MG PO DAILY, #30 TAB 11/19/18 Loratadine* (Loratadine*) 10 Mg Tablet, 10 MG PO DAILY, #30 TAB 11/19/18 Potassium Chloride* (Potassium Chloride*) 8 Meq Capsule.er, 8 MEQ PO DAILY, CAP 11/19/18 Furosemide* (Furosemide*) 80 Mg Tablet, 80 MG PO DAILY, #30 TAB 11/19/18 Atenolol* (Atenolol*) 50 Mg Tablet, 50 MG PO DAILY, #30 TAB 11/19/18 Digoxin* (Lanoxin*) 0.25 Mg Tablet, 0.25 MG PO DAILY, TAB 11/19/18 Current Medications Acetaminophen (Tylenol Liquid) 650 mg Q6H PRN PO PAIN LEVEL 1-3 OR FEVER Last administered on 12/02/18 02:31; Admin Dose 650 MG; Start 11/23/18 at 22:30 Acetaminophen (Tylenol Supp) 650 mg Q4H PRN TN PAIN LEVEL 1-3 OR FEVER Last administered on 12/02/18at 21:21; Admin Dose 650 MG; Start 11/23/18 at 22:30 Atorvastatin Calcium (Lipitor) 20 mg HS PO Last administered on 12/13/18at 21:42; Admin Dose 20 MG; Start 11/24/18 at 21:00 Albuterol/ Ipratropium (Duoneb) 3 ml Q4H RESP THERAPY PRN HHN SHORTNESS OF BREATH; Start 11/24/18 at 09:00 Aripiprazole (Abilify) 5 mg DAILY PO Last administered on 12/14/18 08:23; Admin Dose 5 MG; Start 11/24/18 at 09:30 Digoxin (Digoxin) 0.25 mg DAILY@1300 PO Last administered on 11/26/18 13:41; Admin Dose 0.25 MG; Start 11/24/18 at 13:00; Status Hold Escitalopram Oxalate (Lexapro) 20 mg DAILY PO Last administered on 12/14/18 08:23; Admin Dose 20 MG; Start 11/24/18 at 09:30 Loratadine (Claritin) 10 mg DAILY PO Last administered on 12/14/18at 08:30; Admin Dose 10 MG; Start 11/24/18 at 10:00 Multivitamins Therapeutic (Theragran) 1 tab DAILY PO Last administered on 12/14/18at 08:24; Admin Dose 1 TAB; Start 11/24/18 at 09:30 Potassium Chloride (Micro-K) 8 meq DAILY PO Last administered on 11/24/18at 10:12; Admin Dose 8 MEQ; Start 11/24/18 at 10:00; Status Hold Tamsulosin HCl (Flomax) 0.4 mg HS PO Last administered on 12/13/18at 21:41; Admin Dose 0.4 MG; Start 11/24/18 at 21:00 Calcium/Vitamin D (Oyster Shell/ Vit-D (500/200)) 1 tab DAILY PO Last administered on 12/14/18at 08:24; Admin Dose 1 TAB; Start 11/24/18 at 09:30 Metoprolol Tartrate (Lopressor) 5 mg Q4H PRN IV HR>110 Hold SBP<100; Start 11/24/18 at 11:00 Diltiazem HCl (Cardizem Sr) 120 mg DAILY PO ; Start 11/25/18 at 14:00; Status Hold IV Flush (NS 10 ml) 10 ml PRN PRN IV IV PROTOCOL; Start 11/25/18 at 16:00 Hydralazine HCl (Apresoline) 25 mg Q8 PO Last administered on 12/14/18at 13:15; Admin Dose 25 MG; Start 11/26/18 at 22:00 Pantoprazole (Protonix Iv) 40 mg DAILY@06 IV Last administered on 12/14/18at 05:24; Admin Dose 40 MG; Start 11/29/18 at 06:00 Diagnostic Test (Pha) (Accu-Chek) 1 ea 02 XX Last administered on 12/10/18at 01:44; Admin Dose 1 EA; Start 12/01/18 at 02:00 Insulin Aspart (Novolog Insulin Pen) (Adult SC Insulin - Mild Algorithm)... Q4 SC Last administered on 12/08/18at 08:46; Admin Dose 1 UNIT; Start 11/30/18 at 09:00 Miscellaneous Information 1 ea NOTE XX ; Start 11/30/18 at 08:00 Glucose (Glutose) 15 gm Q15M PRN PO DECREASED GLUCOSE; Start 11/30/18 at 08:00 Glucose (Glutose) 22.5 gm Q15M PRN PO DECREASED GLUCOSE; Start 11/30/18 at 08:00 Dextrose (D50w Syringe) 25 ml Q15M PRN IV DECREASED GLUCOSE Last administered on 12/11/18at 21:43; Admin Dose 25 ML; Start 11/30/18 at 08:00 Dextrose (D50w Syringe) 50 ml Q15M PRN IV DECREASED GLUCOSE; Start 11/30/18 at 08:00 Glucagon (Glucagen) 1 mg Q15M PRN IM DECREASED GLUCOSE; Start 11/30/18 at 08:00 Glucose (Glutose) 15 gm Q15M PRN BUCCAL DECREASED GLUCOSE; Start 11/30/18 at 08:00 Midazolam HCl 50 ml @ 1 mls/hr TITRATE IV Last administered on 12/03/18at 03:19; Admin Dose 4 MLS/HR; Start 12/02/18 at 07:00 Norepinephrine 16 mg/Dextrose 500 ml @ 1.88 mls/hr TITRATE IV Last administered on 12/09/18at 20:04; Admin Dose 1.88 MLS/HR; Start 12/02/18 at 09:30 Fentanyl 100 ml @ 2.5 mls/hr TITRATE IV Last administered on 12/14/18at 10:46; Admin Dose 10 MLS/HR; Start 12/02/18 at 10:30 Acetaminophen (Tylenol Tab) 650 mg Q4H PRN PO mild pain Last administered on 12/05/18at 01:13; Admin Dose 650 MG; Start 12/02/18 at 12:00 Al Hydrox/Mg Hydrox/Simethicone (Mag-Al Plus) 30 ml Q4H PRN PO GASTROINTESTINAL UPSET; Start 12/02/18 at 12:00 Ondansetron HCl (Zofran Inj) 4 mg Q4H PRN IV NAUSEA AND/OR VOMITING Last administered on 12/07/18at 23:27; Admin Dose 4 MG; Start 12/02/18 at 12:00 Collagenase (Santyl) 1 applic DAILY TOP Last administered on 12/14/18at 08:24; Admin Dose 1 APPLIC; Start 12/03/18 at 14:00 Aspirin (Aspirin) 81 mg DAILY NGT Last administered on 12/14/18at 08:23; Admin Dose 81 MG; Start 12/06/18 at 09:00 Heparin Sodium (Porcine) (Heparin (1000 Units/ml)) 4,000 unit AFTER DIALYSIS CATHETER Last administered on 12/13/18at 11:48; Admin Dose 3,000 UNIT; Start 12/08/18 at 09:30 Albumin Human 100 ml @ 100 mls/hr WITH DIALYSIS PRN IV SBP less than 90 mm Hg Last administered on 12/13/18at 09:36; Admin Dose 100 MLS/HR; Start 12/08/18 at 09:30 Sodium Chloride (NS) -To prime the dialy... DIRECTED FOR HD PRN IV SBP less than 90 mm Hg; Start 12/08/18 at 09:30 Mannitol 62.5 ml @ 0 mls/hr WITH DIALYSIS PRN IV WITH DIALYSIS Last administered on 12/08/18at 22:03; Admin Dose 60 MLS/HR; Start 12/08/18 at 21:00 Fluconazole (Diflucan) 200 mg DAILY NGT Last administered on 12/14/18at 08:23; Admin Dose 200 MG; Start 12/10/18 at 09:00 Dextrose/Sodium Chloride 1,000 ml @ 20 mls/hr Q24H IV Last administered on 12/14/18at 06:35; Admin Dose 20 MLS/HR; Start 12/11/18 at 22:00 Haloperidol (Haldol) 1 mg Q6H PRN IV agitation Last administered on 12/14/18at 13:24; Admin Dose 1 MG; Start 12/13/18 at 09:30 Morphine Sulfate (morphine) 2 mg Q2H PRN IV moderate to severe pain Last administered on 12/14/18at 05:23; Admin Dose 2 MG; Start 12/14/18 at 05:14 Dopamine HCl/ Dextrose 250 ml @ 8.25 mls/hr TITRATE PRN IV BLOOD PRESSURE SUPPORT; Start 12/14/18 at 16:30 Meds reviewed: Yes Allergies Coded Allergies: No Known Allergy (Unverified , 11/23/18) Allergies Reviewed: Yes Labs/Studies Labs Reviewed: Reviewed by anesthesiologist Result Diagram: 12/14/1890612/14/18906 Laboratory Tests 12/14/18 09:07 test: N/A Pre-procedure Exam Last vitals Vital Signs Date Temp Pulse Resp B/P (MAP) Pulse Ox O2 O2 Flow FiO2 Time Delivery Rate 12/14/18 99.0 85 16 110/66 98 Mechanical 16:00 (81) Ventilator 12/14/18 40 15:48 Airway: Adequate mouth opening, Adequate thyromental dist Mallampati: Mallampati II Teeth: Abnormal (INTUBATED) Lung: Normal Heart: Normal ASA Physical Status ASA physical status: 3 Emergency: None Planned Anesthetic General/MAC: ETT (IN SITU) Planned Pain Management Parenteral pain med Pre-operative Attestations Prior to commencing anesthesia and surgery, the patient was re-evaluated, there was verification of: *The patient's identity *The results of appropriate recent lab work and preoperative vital signs *The above evaluation not changing prior to induction *Anesthetic plan, risk benefits, alternative and complications discussed with patient/family; questions answered; patient/family understands, accepts and wishes to proceed. Yusef Caraballo M.D. Dec 14, 2018 16:52
[2018-12-14] MEDS ORDERED: CEFAZOLIN 1 GM/50 ML (PMX) 50 ML IVPB ONE (16:58)
--- NOTE | 2018-12-14 17:18 | OPR ---
Date/Time of Note Date/Time of Note DATE: 12/14/18 TIME: 17:16 Operative Report Preoperative Diagnosis dysphagia Postoperative Diagnosis same Operation/Procedure Performed egd peg Surgeon see signature line Manufacturing Management Associate none Anesthesia Type: MAC Estimated Blood Loss: none Transfusion none Specimen none Grafts/Implants none Complications none Pt Condition Post Procedure: stable Procedure Description egd peg done FRANCE BRIGGS MD Dec 14, 2018 17:18
--- NOTE | 2018-12-14 18:10 | PREAC ---
Date/Time of Note Date/Time of Note DATE: 12/14/18 TIME: 18:07 Anesthesia Eval and Record Evaluation Time Pre-Procedure Interview DATE: 12/14/18 TIME: 18:07 Age 78 Sex male NPO: 8 hrs Preoperative diagnosis Sigmoid Cancer, respiratory Failure Planned procedure Tracheostomy Past Medical History Past Medical History: Includes Cardio: HTN, Dyslipidemia, CAD, CHF, Other (s/p Angiogram, No Significant Aortic Stenosis) Endo: Diabetes Pulm: Other (intubated, Respiratory Failure) Renal: CKD Heme: Anemia Surgery & Anesthesia Issues No known issue Meds Anticoagulation: No Beta Vivian within 24 hr: Yes Active Scripts Pantoprazole (Protonix) 40 Mg Tabec, 40 MG PO BID, #60 TAB 1 Refill Prov:YVETTE GARCIAP S. 11/22/18 Reported Medications Calcium Citrate/Vitamin D (Citracal-Vitamin D 200 MG-250) 1 Each Tablet, 1 EACH PO BID, TAB 11/19/18 Ibuprofen* (Ibuprofen*) 600 Mg Tablet, 600 MG PO Q6H PRN for PAIN LEVEL 1-5, TAB 11/19/18 Hydralazine Hcl* (Hydralazine Hcl*) 50 Mg Tablet, 50 MG PO Q6H, #60 TAB 11/19/18 Metformin* (Glucophage*) 500 Mg Tab, 500 MG PO WITH BREAKFAST, #30 TAB 11/19/18 Multivitamins* (Theragran*) 1 Tab Tab, 1 TAB PO DAILY, TAB 11/19/18 Aripiprazole* (Abilify*) 5 Mg Tab, 5 MG PO DAILY, #30 TAB 11/19/18 Diltiazem Hcl* (Cardizem SR*) 120 Mg Cap.sr.12h, 120 MG PO Q12, CAP 11/19/18 Pioglitazone Hcl* (Pioglitazone Hcl*) 30 Mg Tablet, 30 MG PO DAILY, TAB 11/19/18 Escitalopram Oxalate* (Escitalopram Oxalate*) 20 Mg Tablet, 20 MG PO DAILY, #30 TAB 11/19/18 Benazepril Hcl* (Benazepril Hcl*) 20 Mg Tablet, 20 MG PO DAILY, #30 TAB 11/19/18 Tamsulosin Hcl* (Tamsulosin Hcl*) 0.4 Mg Cap.er.24h, 0.4 MG PO HS, CAP 11/19/18 Aspirin Ec (Aspir 81) 81 Mg Tablet.dr, 81 MG PO DAILY, #30 TAB 11/19/18 Loratadine* (Loratadine*) 10 Mg Tablet, 10 MG PO DAILY, #30 TAB 11/19/18 Potassium Chloride* (Potassium Chloride*) 8 Meq Capsule.er, 8 MEQ PO DAILY, CAP 11/19/18 Furosemide* (Furosemide*) 80 Mg Tablet, 80 MG PO DAILY, #30 TAB 11/19/18 Atenolol* (Atenolol*) 50 Mg Tablet, 50 MG PO DAILY, #30 TAB 11/19/18 Digoxin* (Lanoxin*) 0.25 Mg Tablet, 0.25 MG PO DAILY, TAB 11/19/18 Current Medications Acetaminophen (Tylenol Liquid) 650 mg Q6H PRN PO PAIN LEVEL 1-3 OR FEVER Last administered on 12/02/18at 02:31; Admin Dose 650 MG; Start 11/23/18 at 22:30 Acetaminophen (Tylenol Supp) 650 mg Q4H PRN TN PAIN LEVEL 1-3 OR FEVER Last administered on 12/02/18 21:21; Admin Dose 650 MG; Start 11/23/18 at 22:30 Atorvastatin Calcium (Lipitor) 20 mg HS PO Last administered on 12/13/18 21:42; Admin Dose 20 MG; Start 11/24/18 at 21:00 Albuterol/ Ipratropium (Duoneb) 3 ml Q4H RESP THERAPY PRN HHN SHORTNESS OF BREATH; Start 11/24/18 at 09:00 Aripiprazole (Abilify) 5 mg DAILY PO Last administered on 12/14/18 08:23; Admin Dose 5 MG; Start 11/24/18 at 09:30 Digoxin (Digoxin) 0.25 mg DAILY@1300 PO Last administered on 11/26/18 13:41; Admin Dose 0.25 MG; Start 11/24/18 at 13:00; Status Hold Escitalopram Oxalate (Lexapro) 20 mg DAILY PO Last administered on 12/14/18 08:23; Admin Dose 20 MG; Start 11/24/18 at 09:30 Loratadine (Claritin) 10 mg DAILY PO Last administered on 12/14/18 08:30; Admin Dose 10 MG; Start 11/24/18 at 10:00 Multivitamins Therapeutic (Theragran) 1 tab DAILY PO Last administered on 12/14/18at 08:24; Admin Dose 1 TAB; Start 11/24/18 at 09:30 Potassium Chloride (Micro-K) 8 meq DAILY PO Last administered on 11/24/18at 10:12; Admin Dose 8 MEQ; Start 11/24/18 at 10:00; Status Hold Tamsulosin HCl (Flomax) 0.4 mg HS PO Last administered on 12/13/18at 21:41; Admin Dose 0.4 MG; Start 11/24/18 at 21:00 Calcium/Vitamin D (Oyster Shell/ Vit-D (500/200)) 1 tab DAILY PO Last administered on 12/14/18at 08:24; Admin Dose 1 TAB; Start 11/24/18 at 09:30 Metoprolol Tartrate (Lopressor) 5 mg Q4H PRN IV HR>110 Hold SBP<100; Start 11/24/18 at 11:00 Diltiazem HCl (Cardizem Sr) 120 mg DAILY PO ; Start 11/25/18 at 14:00; Status Hold IV Flush (NS 10 ml) 10 ml PRN PRN IV IV PROTOCOL; Start 11/25/18 at 16:00 Hydralazine HCl (Apresoline) 25 mg Q8 PO Last administered on 12/14/18at 13:15; Admin Dose 25 MG; Start 11/26/18 at 22:00 Pantoprazole (Protonix Iv) 40 mg DAILY@06 IV Last administered on 12/14/18at 05:24; Admin Dose 40 MG; Start 11/29/18 at 06:00 Diagnostic Test (Pha) (Accu-Chek) 1 ea 02 XX Last administered on 12/10/18at 01:44; Admin Dose 1 EA; Start 12/01/18 at 02:00 Insulin Aspart (Novolog Insulin Pen) (Adult SC Insulin - Mild Algorithm)... Q4 SC Last administered on 12/08/18at 08:46; Admin Dose 1 UNIT; Start 11/30/18 at 09:00 Miscellaneous Information 1 ea NOTE XX ; Start 11/30/18 at 08:00 Glucose (Glutose) 15 gm Q15M PRN PO DECREASED GLUCOSE; Start 11/30/18 at 08:00 Glucose (Glutose) 22.5 gm Q15M PRN PO DECREASED GLUCOSE; Start 11/30/18 at 08:00 Dextrose (D50w Syringe) 25 ml Q15M PRN IV DECREASED GLUCOSE Last administered on 12/11/18at 21:43; Admin Dose 25 ML; Start 11/30/18 at 08:00 Dextrose (D50w Syringe) 50 ml Q15M PRN IV DECREASED GLUCOSE; Start 11/30/18 at 08:00 Glucagon (Glucagen) 1 mg Q15M PRN IM DECREASED GLUCOSE; Start 11/30/18 at 08:00 Glucose (Glutose) 15 gm Q15M PRN BUCCAL DECREASED GLUCOSE; Start 11/30/18 at 08:00 Midazolam HCl 50 ml @ 1 mls/hr TITRATE IV Last administered on 12/03/18at 03:19; Admin Dose 4 MLS/HR; Start 12/02/18 at 07:00 Norepinephrine 16 mg/Dextrose 500 ml @ 1.88 mls/hr TITRATE IV Last administered on 12/09/18at 20:04; Admin Dose 1.88 MLS/HR; Start 12/02/18 at 09:30 Fentanyl 100 ml @ 2.5 mls/hr TITRATE IV Last administered on 12/14/18at 10:46; Admin Dose 10 MLS/HR; Start 12/02/18 at 10:30 Acetaminophen (Tylenol Tab) 650 mg Q4H PRN PO mild pain Last administered on 12/05/18at 01:13; Admin Dose 650 MG; Start 12/02/18 at 12:00 Al Hydrox/Mg Hydrox/Simethicone (Mag-Al Plus) 30 ml Q4H PRN PO GASTROINTESTINAL UPSET; Start 12/02/18 at 12:00 Ondansetron HCl (Zofran Inj) 4 mg Q4H PRN IV NAUSEA AND/OR VOMITING Last administered on 12/07/18at 23:27; Admin Dose 4 MG; Start 12/02/18 at 12:00 Collagenase (Santyl) 1 applic DAILY TOP Last administered on 12/14/18at 08:24; Admin Dose 1 APPLIC; Start 12/03/18 at 14:00 Aspirin (Aspirin) 81 mg DAILY NGT Last administered on 12/14/18at 08:23; Admin Dose 81 MG; Start 12/06/18 at 09:00 Heparin Sodium (Porcine) (Heparin (1000 Units/ml)) 4,000 unit AFTER DIALYSIS CATHETER Last administered on 12/13/18at 11:48; Admin Dose 3,000 UNIT; Start 12/08/18 at 09:30 Albumin Human 100 ml @ 100 mls/hr WITH DIALYSIS PRN IV SBP less than 90 mm Hg Last administered on 12/13/18 09:36; Admin Dose 100 MLS/HR; Start 12/08/18 at 09:30 Sodium Chloride (NS) -To prime the dialy... DIRECTED FOR HD PRN IV SBP less than 90 mm Hg; Start 12/08/18 at 09:30 Mannitol 62.5 ml @ 0 mls/hr WITH DIALYSIS PRN IV WITH DIALYSIS Last administered on 12/08/18 22:03; Admin Dose 60 MLS/HR; Start 12/08/18 at 21:00 Fluconazole (Diflucan) 200 mg DAILY NGT Last administered on 12/14/18at 08:23; Admin Dose 200 MG; Start 12/10/18 at 09:00 Dextrose/Sodium Chloride 1,000 ml @ 20 mls/hr Q24H IV Last administered on 12/14/18 06:35; Admin Dose 20 MLS/HR; Start 12/11/18 at 22:00 Haloperidol (Haldol) 1 mg Q6H PRN IV agitation Last administered on 12/14/18at 13:24; Admin Dose 1 MG; Start 12/13/18 at 09:30 Morphine Sulfate (morphine) 2 mg Q2H PRN IV moderate to severe pain Last adm inistered on 12/14/18at 05:23; Admin Dose 2 MG; Start 12/14/18 at 05:14 Dopamine HCl/ Dextrose 250 ml @ 8.25 mls/hr TITRATE PRN IV BLOOD PRESSURE SUPPORT; Start 12/14/18 at 16:30 Meds reviewed: Yes Allergies Coded Allergies: No Known Allergy (Unverified , 11/23/18) Allergies Reviewed: Yes Labs/Studies Labs Reviewed: Reviewed by anesthesiologist Result Diagram: 12/14/1890612/14/18906 Laboratory Tests 12/14/18 09:07 test: N/A Studies: ECG (NSR), CXR (No pneumothorax, Minimal Bilateral Pleural effusion.) Pre-procedure Exam Last vitals Vital Signs Date Temp Pulse Resp B/P (MAP) Pulse Ox O2 O2 Flow FiO2 Time Delivery Rate 12/14/18 81 16:00 12/14/18 99.0 16 110/66 98 Mechanical 16:00 (81) Ventilator 12/14/18 40 15:48 Airway: Adequate mouth opening, Adequate thyromental dist Mallampati: Mallampati II Teeth: Normal Lung: Normal Heart: Normal ASA Physical Status ASA physical status: 4 Emergency: None Planned Anesthetic General/MAC: ETT Planned Pain Management Parenteral pain med Pre-operative Attestations Prior to commencing anesthesia and surgery, the patient was re-evaluated, there was verification of: *The patient's identity *The results of appropriate recent lab work and preoperative vital signs *The above evaluation not changing prior to induction *Anesthetic plan, risk benefits, alternative and complications discussed with patient/family; questions answered; patient/family understands, accepts and wishes to proceed. JOHAN MURILLO MD Dec 14, 2018 18:10
[2018-12-14] MEDS ORDERED: ROCURONIUM 50 MG INJ ONE (18:11)
[2018-12-14] MEDS ORDERED: PHENYLephrine (100 MCG/ML) 5ML SYG ONE (18:11)
[2018-12-14] MEDS ORDERED: PROPOFOL 100 ML ONE (18:11)
[2018-12-14] MEDS ORDERED: MIDAZOLAM 1 MG/ML 2 ML INJ ONE (18:11)
--- NOTE | 2018-12-14 18:55 | OPR ---
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 Anesthesia Type: general Estimated Blood Loss: minimal Transfusion none Specimen None Grafts/Implants none Complications none Pt Condition Post Procedure: critical Disposition: PACU Procedure Description Patient was placed supine position prepped and draped in usual sterile fashion timeout was called and I started A 1 cm incision was made 1 fingerbreadth superior to the sternal notch incision was taken down to subcutaneous tissue which was then opened using Metzenbaum scissors access was gained into the trachea guidewire was advanced without any difficulties the trachea was dilated tracheostomy tube 8 cuffed Shiley advanced into the trachea as the tracheostomy tube was being pulled out the tracheostomy tube was secured to skin using 4 nylon sutures and a trach tie over foam protective pad adequate end-tidal CO2 was obtained patient tolerated procedure well HALI CHUN MD Dec 14, 2018 18:55
--- NOTE | 2018-12-14 18:58 | PAC ---
Date/Time of Note Date/Time of Note DATE: 12/14/18 TIME: 18:57 Post-Anesthesia Notes Post-Anesthesia Note Last documented vital signs Vital Signs Date Temp Pulse Resp B/P (MAP) Pulse Ox O2 O2 Flow FiO2 Time Delivery Rate 12/14/18 81 16:00 12/14/18 99.0 98 16 110/66 98 Mechanical 19:10 (81) Ventilator 12/14/18 40 15:48 Activity: WNL Respiratory function: WNL Cardiovascular function: WNL Mental status: Baseline Pain reasonably controlled: Yes Hydration appropriate: Yes Nausea/Vomiting absent: Yes JOHAN MURILLO MD Dec 14, 2018 18:58
--- NOTE | 2018-12-14 19:34 | NUR ---
END OF SHIFT SUMMARY PT HAD PEG PLACEMENT TODAY AT AROUND 1645. PT HAS ABD BINDER AROUND SITE OF PEG. PT ALSO HAD NEW TRACHEOSTOMY PLACE TODAY AROUND 1845. MD BRIGGS PLACED PEG AND MD CHUN PLACED TRACHEOSTOMY. PT HAD SIGNIFICANT EPISODES OF PAUSES. MD HARDWICK WAS MADE AWARE AND ORDERS WERE RECEIVED. PT IS RESTING COMFORTABLE WITH TRACH TO VENT AND FIO2 AT 40%. PT IS HEMODYNAMICALLY STABLE. PT HAS BEEN AFEBRILE. PT HAS HR LOW 49 AND HIGH 130S. FAMILY WAS UPDATED ABOUT PT STATUS. ALL EVENTS WERE REPORTED TO MDS. PT ELECTROLYTES WERE REPORTED TO MD PATTERSON AND ORDERS RECEIVED. ALL OF PT NEEDS WERE CARED FOR. ENDORSING CARE TO NIGHTSHIFT. Addendum: 12/14/18 at 1943 by MARQUIS ELDRIDGE RN PT ALSO HAS DIALYSIS PLANNED FOR TOMORROW AM.
[2018-12-14] MEDS: TAMSULOSIN (SR) 0.4 MG CAP PO SCH (20:49)
[2018-12-14] MEDS: ATORVASTATIN 20 MG TAB PO SCH (20:50)
[2018-12-14] MEDS: DEXTROSE 5%-0.45% NACL 1,000 ML IV SCH (23:33)
[2018-12-15] VITALS (60 sets, daily range): BP systolic 88–134; BP diastolic 45–76; PULSE 64–123; RESP 12–23
[2018-12-15] MEDS: FENTAnyl (DRIP) 1000 mcg/100mL 100 ML IV SCH (00:38)
--- NOTE | 2018-12-15 00:48 | GILP ---
DATE OF PROCEDURE: NAME OF PROCEDURE: Esophagogastroduodenoscopy and also percutaneous endoscopic gastrostomy tube plac ement. PREOPERATIVE DIAGNOSIS: The patient is presenting with history of difficulty swallowing and because of this, percutaneous endoscopic gastrostomy tube needs to be placed for long-term nutritional suppor t. POSTOPERATIVE DIAGNOSIS: The patient is presenting with history of difficulty swallowing and because of this, percutaneous endoscopic gastrostomy tube needs to be placed for long-term nutritional suppo rt. DESCRIPTION OF PROCEDURE: After informed written consent was obtained, the patient was asked to lie on the supine position. Intravenous anesthesia was given by anesthesiologist, Dr. Caraballo. When t he patient became somnolent, the Olympus video upper endoscope was inserted into the oropharynx, then into the esophagus. Esophagus appeared normal. Stomach showed minimal gastritis. Duodenum appeare d normal. Scope at this time was withdrawn to the level of the gastric cavity. The anterior abdomin al wall was prepared with Betadine and alcohol. A 2 mL of 2% Xylocaine was infiltrated at the endosc opic illuminating site and 5 mm incision was made by using the scalpel. Through this incision, a tro car was inserted into the stomach and stylet was removed and through this time, a guidewire was inser elena into the stomach and the guidewire was grabbed with a polypectomy snare and then it was brought o ut through the mouth along with the endoscope. To this end of the guidewire, a #20 Microvasive G-tub e was tied in a loop fashion and then it was brought out through the abdominal wall incision. Retent ion bumper was placed over the G-tube close to the skin. Tapered end of the gastrostomy tube was cut . The adapter was placed and the procedure was terminated. PLAN: I recommend starting G-tube feeding in a.m. Dictated By: FRANCE BRIGGS MD NC/NTS Conf#: [id number] DID#: [id number] CC: MARILEE CHAVEZ MD; AJ PIERRE MD; TWAN PATTERSON MD;*EndCC*
[2018-12-15] MEDS: ACCU-CHEK XX SCH (00:50)
[2018-12-15] MEDS: Insulin NOVOLOG SS MILD Algorithm (NPO/TPN/ENTERAL FEEDS) SC SCH ×6 (00:50→20:56)
[2018-12-15] MEDS: PANTOPRAZOLE 40 MG INJ IV SCH (05:29)
--- NOTE | 2018-12-15 07:30 | NUR ---
EOSS Patient was stable throughout shift. O2 sat >92% throughout shift. Patient trended down in BP and HR towards end of shift. Patient has had no BM this shift, low urine output about 100 throughout shift. No visible signs of bleeding on new PEG area and trach area, and no significant drop in CBC. Patient was turned Q2H, oral care Q2H, bed bath given and linens changed. All needs were tended to, care plans updated and performed.
--- NOTE | 2018-12-15 08:16 | CONS ---
Assessment/Plan Assessment/Plan Assessment/Plan 1. Oliguric Acute on chronic renal failure due to Sepsis and Hemodynamics + obstructive uropathy - Worsening causing uremic encephalopathy 2. atrial fibrillation with RVR- now rate controlled 3. acute hypoxemic and hypercapnic resp failure due to PNA - failed BIPAP; intubated 4. Sepsis 5. Positive troponin 6. BPH on flomax 7. Colon CA Plan: pt remained on ventilator, s/p tracheostomy and PEG tube ,, Pt is more agitated, requiring more fentanyl drip Started on HD on 12/08/18- s/p HD today 2L removed- will keep pt on MWF schedule from now.- pt currently has Temporary pat HD catheter, will wait for pt to be more stable before switching it to Permacath S/p LHC which showed moderate Nonobstructive CAD - medical management SP Colonoscopy with stent placement by GI Full code will follow up Result Diagram: 12/15/185 12/15/185 Results 24hrs Laboratory Tests Test 12/14/18 08:29 12/14/18 09:07 12/14/18 13:11 12/14/18 18:27 Bedside Glucose 114 95 76 White Blood Count 7.2 Red Blood Count 3.41 L Hemoglobin 8.0 L Hematocrit 29.4 L Mean Corpuscular 86.2 Volume Mean Corpuscular 23.5 L Hemoglobin Mean Corpuscular 27.2 L Hemoglobin Concent Red Cell 28.4 H Distribution Width Platelet Count 269 Mean Platelet Volume Immature 0.400 Granulocytes % Neutrophils % 68.3 Lymphocytes % 15.2 Monocytes % 9.7 Eosinophils % 6.0 Basophils % 0.4 Nucleated Red Blood 0.0 Cells % Immature 0.030 Granulocytes # Neutrophils # 4.9 Lymphocytes # 1.1 Monocytes # 0.7 Eosinophils # 0.4 Basophils # 0.0 Nucleated Red Blood 0.0 Cells # Sodium Level 137 Potassium Level 4.6 Chloride Level 98 Carbon Dioxide Level 31 Anion Gap 8 Blood Urea Nitrogen 23 H Creatinine 3.54 H Est Glomerular Filtrat Rate mL/min Glucose Level 106 Calcium Level 8.9 Phosphorus Level 3.8 Magnesium Level 1.8 Total Bilirubin 0.1 L Direct Bilirubin 0.00 Indirect Bilirubin 0.1 Aspartate Amino 18 Transf (AST/SGOT) Alanine 25 Aminotransferase (AL T/SGPT) Alkaline Phosphatase 77 Total Protein 6.9 Albumin 3.5 Globulin 3.40 H Albumin/Globulin 1.02 Ratio Test 12/14/18 20:52 12/15/18 00:49 12/15/18 04:25 12/15/18 04:42 Bedside Glucose 85 84 91 White Blood Count 7.6 Red Blood Count 3.13 L Hemoglobin 7.3 L Hematocrit 27.0 L Mean Corpuscular 86.3 Volume Mean Corpuscular 23.3 L Hemoglobin Mean Corpuscular 27.0 L Hemoglobin Concent Red Cell 28.7 H Distribution Width Platelet Count 231 Mean Platelet Volume 10.9 H Immature 0.400 Granulocytes % Neutrophils % 75.7 Lymphocytes % 10.3 L Monocytes % 7.7 Eosinophils % 5.5 Basophils % 0.4 Nucleated Red Blood 0.0 Cells % Immature 0.030 Granulocytes # Neutrophils # 5.7 Lymphocytes # 0.8 Monocytes # 0.6 Eosinophils # 0.4 Basophils # 0.0 Nucleated Red Blood 0.0 Cells # Sodium Level 141 Potassium Level 4.3 Chloride Level 98 Carbon Dioxide Level 30 Anion Gap 13 Blood Urea Nitrogen 26 H Creatinine 4.60 #H Est Glomerular Filtrat Rate mL/min Glucose Level 89 Calcium Level 8.9 Phosphorus Level 3.9 Magnesium Level 2.2 Consultation Date/Type/Reason Admit Date/Time Nov 23, 2018 at 22:01 Initial Consult Date 11/24/18 Type of Consult NEPHROLOGY Requesting Provider: NAYANA GARCIA 24 HR Interval Summary Free Text/Dictation pt remained on ventilator, s/p tracheostomy and PEG tube , s/p HD 2L removed, Pt is more agitated, requiring more fentanyl drip Exam/Review of Systems Vital Signs Vitals Vital Signs Date Temp Pulse Resp B/P (MAP) Pulse Ox O2 O2 Flow FiO2 Time Delivery Rate 12/15/18 88 16 98 40 07:32 12/15/18 119/65 Mechanical 06:00 (83) Ventilator Trach Collar 12/15/18 98.7 04:00 Intake and Output 12/14/18 12/14/18 12/15/18 1414:59 22:59 06:59 IntakeIntake Total 325 ml 102.5 ml 365 ml OutputOutput Total 20 ml 5 ml 70 ml BalanceBalance 305 ml 97.5 ml 295 ml Exam Constitutional: on ventilator,s/p tracheostomy Respiratory: Bilateral coarse BS+, basilar crackles Cardiovascular: regular rate and rhythm, nl pulses Gastrointestinal: soft, non-tender, + PEG tube in place Musculoskeletal: 1-2+ pitting edema , + hess catheter Neurological: sedated on ventilator Medications Medications Current Medications Acetaminophen (Tylenol Liquid) 650 mg Q6H PRN PO PAIN LEVEL 1-3 OR FEVER Last administered on 12/02/18 02:31; Admin Dose 650 MG; Start 11/23/18 at 22:30 Acetaminophen (Tylenol Supp) 650 mg Q4H PRN [place] PAIN LEVEL 1-3 OR FEVER Last administered on 12/02/18 21:21; Admin Dose 650 MG; Start 11/23/18 at 22:30 Atorvastatin Calcium (Lipitor) 20 mg HS PO Last administered on 12/13/18 21:42; Admin Dose 20 MG; Start 11/24/18 at 21:00 Albuterol/ Ipratropium (Duoneb) 3 ml Q4H RESP THERAPY PRN HHN SHORTNESS OF BREATH; Start 11/24/18 at 09:00 Aripiprazole (Abilify) 5 mg DAILY PO Last administered on 12/14/18 08:23; Admin Dose 5 MG; Start 11/24/18 at 09:30 Digoxin (Digoxin) 0.25 mg DAILY@1300 PO Last administered on 11/26/18 13:41; Admin Dose 0.25 MG; Start 11/24/18 at 13:00; Status Hold Escitalopram Oxalate (Lexapro) 20 mg DAILY PO Last administered on 12/14/18 08:23; Admin Dose 20 MG; Start 11/24/18 at 09:30 Loratadine (Claritin) 10 mg DAILY PO Last administered on 12/14/18 08:30; Admin Dose 10 MG; Start 11/24/18 at 10:00 Multivitamins Therapeutic (Theragran) 1 tab DAILY PO Last administered on 12/14/18 08:24; Admin Dose 1 TAB; Start 11/24/18 at 09:30 Potassium Chloride (Micro-K) 8 meq DAILY PO Last administered on 11/24/18 10:12; Admin Dose 8 MEQ; Start 11/24/18 at 10:00; Status Hold Tamsulosin HCl (Flomax) 0.4 mg HS PO Last administered on 12/13/18 21:41; Admin Dose 0.4 MG; Start 11/24/18 at 21:00 Calcium/Vitamin D (Oyster Shell/ Vit-D (500/200)) 1 tab DAILY PO Last administered on 12/14/18at 08:24; Admin Dose 1 TAB; Start 11/24/18 at 09:30 Metoprolol Tartrate (Lopressor) 5 mg Q4H PRN IV HR>110 Hold SBP<100; Start 11/24/18 at 11:00 Diltiazem HCl (Cardizem Sr) 120 mg DAILY PO ; Start 11/25/18 at 14:00; Status Hold IV Flush (NS 10 ml) 10 ml PRN PRN IV IV PROTOCOL; Start 11/25/18 at 16:00 Hydralazine HCl (Apresoline) 25 mg Q8 PO Last administered on 12/14/18at 13:15; Admin Dose 25 MG; Start 11/26/18 at 22:00 Pantoprazole (Protonix Iv) 40 mg DAILY@06 IV Last administered on 12/15/18at 05:29; Admin Dose 40 MG; Start 11/29/18 at 06:00 Diagnostic Test (Pha) (Accu-Chek) 1 ea 02 XX Last administered on 12/10/18at 01:44; Admin Dose 1 EA; Start 12/01/18 at 02:00 Insulin Aspart (Novolog Insulin Pen) (Adult SC Insulin - Mild Algorithm)... Q4 SC Last administered on 12/08/18at 08:46; Admin Dose 1 UNIT; Start 11/30/18 at 09:00 Miscellaneous Information 1 ea NOTE XX ; Start 11/30/18 at 08:00 Glucose (Glutose) 15 gm Q15M PRN PO DECREASED GLUCOSE; Start 11/30/18 at 08:00 Glucose (Glutose) 22.5 gm Q15M PRN PO DECREASED GLUCOSE; Start 11/30/18 at 08:00 Dextrose (D50w Syringe) 25 ml Q15M PRN IV DECREASED GLUCOSE Last administered on 12/11/18at 21:43; Admin Dose 25 ML; Start 11/30/18 at 08:00 Dextrose (D50w Syringe) 50 ml Q15M PRN IV DECREASED GLUCOSE; Start 11/30/18 at 08:00 Glucagon (Glucagen) 1 mg Q15M PRN IM DECREASED GLUCOSE; Start 11/30/18 at 08:00 Glucose (Glutose) 15 gm Q15M PRN BUCCAL DECREASED GLUCOSE; Start 11/30/18 at 08:00 Midazolam HCl 50 ml @ 1 mls/hr TITRATE IV Last administered on 12/03/18at 03:19; Admin Dose 4 MLS/HR; Start 12/02/18 at 07:00 Norepinephrine 16 mg/Dextrose 500 ml @ 1.88 mls/hr TITRATE IV Last administ ered on 12/09/18at 20:04; Admin Dose 1.88 MLS/HR; Start 12/02/18 at 09:30 Fentanyl 100 ml @ 2.5 mls/hr TITRATE IV Last administered on 12/15/18 00:38; Admin Dose 5 MLS/HR; Start 12/02/18 at 10:30 Acetaminophen (Tylenol Tab) 650 mg Q4H PRN PO mild pain Last administered on 12/05/18 01:13; Admin Dose 650 MG; Start 12/02/18 at 12:00 Al Hydrox/Mg Hydrox/Simethicone (Mag-Al Plus) 30 ml Q4H PRN PO GASTROINTESTINAL UPSET; Start 12/02/18 at 12:00 Ondansetron HCl (Zofran Inj) 4 mg Q4H PRN IV NAUSEA AND/OR VOMITING Last administered on 12/07/18 23:27; Admin Dose 4 MG; Start 12/02/18 at 12:00 Collagenase (Santyl) 1 applic DAILY TOP Last administered on 12/14/18 08:24; Admin Dose 1 APPLIC; Start 12/03/18 at 14:00 Aspirin (Aspirin) 81 mg DAILY NGT Last administered on 12/14/18 08:23; Admin D ose 81 MG; Start 12/06/18 at 09:00 Heparin Sodium (Porcine) (Heparin (1000 Units/ml)) 4,000 unit AFTER DIALYSIS CATHETER Last administered on 12/13/18 11:48; Admin Dose 3,000 UNIT; Start 12/08/18 at 09:30 Albumin Human 100 ml @ 100 mls/hr WITH DIALYSIS PRN IV SBP less than 90 mm Hg Last administered on 12/13/18 09:36; Admin Dose 100 MLS/HR; Start 12/08/18 at 09:30 Sodium Chloride (NS) -To prime the dialy... DIRECTED FOR HD PRN IV SBP less than 90 mm Hg; Start 12/08/18 at 09:30 Mannitol 62.5 ml @ 0 mls/hr WITH DIALYSIS PRN IV WITH DIALYSIS Last administered on 12/08/18at 22:03; Admin Dose 60 MLS/HR; Start 12/08/18 at 21:00 Fluconazole (Diflucan) 200 mg DAILY NGT Last administered on 12/14/18at 08:23; Admin Dose 200 MG; Start 12/10/18 at 09:00 Haloperidol (Haldol) 1 mg Q6H PRN IV agitation Last administered on 12/14/18at 13:24; Admin Dose 1 MG; Start 12/13/18 at 09:30 Morphine Sulfate (morphine) 2 mg Q2H PRN IV moderate to severe pain Last administered on 12/14/18at 05:23; Admin Dose 2 MG; Start 12/14/18 at 05:14 Dopamine HCl/ Dextrose 250 ml @ 8.25 mls/hr TITRATE PRN IV BLOOD PRESSURE SUPPORT; Start 12/14/18 at 16:30 Dextrose/Sodium Chloride 1,000 ml @ 50 mls/hr Q20H IV Last administered on 12/14/18at 23:33; Admin Dose 50 MLS/HR; Start 12/14/18 at 23:30 Date/Time of Note Date/Time of Note DATE: 12/15/18 TIME: 08:15 RENAN HERNANDEZ MD Dec 15, 2018 08:15
[2018-12-15] MEDS ORDERED: SOD CHLORIDE 0.9% 250 ML IV* SCH (09:14)
[2018-12-15] MEDS: ARIPIPRAZOLE 5 MG TAB PO SCH (10:11)
[2018-12-15] MEDS: MULTIVITAMINS THERAPEUTIC TAB PO SCH (10:12)
[2018-12-15] MEDS: LORATADINE 10 MG TAB PO SCH (10:12)
[2018-12-15] MEDS: CALCIUM/VITAMIN D (500/200) TAB PO SCH (10:12)
[2018-12-15] MEDS: ESCITALOPRAM 10 MG TAB PO SCH (10:12)
[2018-12-15] MEDS: ASPIRIN 325 MG TAB NGT SCH (10:12)
[2018-12-15] MEDS: COLLAGENASE 5 GM (UD JAR) TOP SCH (10:13)
[2018-12-15] MEDS: BALSAM PERU/CASTOR OIL 60 GM TUBE TOP SCH ×2 (10:13→20:57)
--- NOTE | 2018-12-15 10:26 | PAC ---
Date/Time of Note Date/Time of Note DATE: 12/15/18 TIME: 10:25 Post-Anesthesia Notes Post-Anesthesia Note Last documented vital signs Vital Signs Date Temp Pulse Resp B/P (MAP) Pulse Ox O2 O2 Flow FiO2 Time Delivery Rate 12/15/18 91 16 98 40 09:00 12/15/18 100.4 122/64 [employer] 08:00 (83) l Ventilato r Activity: WNL Respiratory function: WNL Cardiovascular function: WNL Mental status: Baseline Pain reasonably controlled: Yes Hydration appropriate: Yes Nausea/Vomiting absent: Yes Yusef Caraballo M.D. Dec 15, 2018 10:26
--- NOTE | 2018-12-15 10:47 | CONS ---
Assessment/Plan Cardiology Heart Failure NYHA Class: II Heart Failure Timing: Chronic Heart Failure Type: Diastolic Assessment/Plan Hospital Course (Demo Recall) Hospital Course IMPRESSION: 1. Non-ST elevation myocardial infarction, currently down trending cardiac enzymes likely a type 2 demand infarct in the setting of fevers, hypercarbic respiratory failure.-downtrended cardiac enzymes. NO cp. Echo this admit 11/24 with NL EF 55%. Now s/p LHC 12/02 with no sig major epicardial obstructive cad. LVEDP 21 2. Abnormal electrocardiogram. 3. Right bundle branch block. 4. Colonic mass s/p stent placement 5. Anemia. 6. Renal failure-On HD 7. Leukocytosis. 8. Coagulopathy. 9. Sepsis. 10. Atrial fibrillation-now in SR 11.CHF-diastolic acute on chronic 12. Resp failure s/p intubation 14. Hypotension off levophed 15. Asystole-short runs happened yesterday. No recurrence today. ? increased vagal tone Recc: -ICU -Continue asa/statin -Now back on levo after HD. Follow BP clsoely and wean back off levo as tolerated -Continue broad spectrum abx's and f/u cx data -wean vent as possible -HD for volume removal as tolerated Consultation Date/Type/Reason Admit Date/Time Nov 23, 2018 at 22:01 Initial Consult Date 11/24/18 Type of Consult Cardiology Reason for Consultation Nstemi Requesting Provider: NAYANA GARCIA Date/Time of Note DATE: 12/15/18 TIME: 10:39 Exam/Review of Systems Vital Signs Vitals Vital Signs Date Temp Pulse Resp B/P (MAP) Pulse Ox O2 O2 Flow FiO2 Time Delivery Rate 12/15/18 99 10:00 12/15/18 16 110/62 98 [employer] 09:30 (78) l Ventilato r Trach Collar 12/15/18 40 09:00 12/15/18 100.4 08:00 Intake and Output 12/14/18 12/14/18 12/15/18 1515:00 23:00 07:00 IntakeIntake Total 330 ml 72.5 ml 415 ml OutputOutput Total 20 ml 5 ml 70 ml BalanceBalance 310 ml 67.5 ml 345 ml Exam Exam Review of Systems: CONSTITUTIONAL: No fevers, chills. PULMONARY: trached CARDIOVASCULAR: No chest pain/palpitations GASTROINTESTINAL: No nausea/vomiting. GENITOURINARY: No hematuria/dysuria. MUSCULOSKELETAL: No myagias/arthalgias. PSYCHIATRIC: The patient denies depression. NEUROLOGIC: sedated Constitutional: alert Psych: no complaints Head: normocephalic ENMT: mucosa pink and moist Neck: supple, jvd (9 cm water) Respiratory: diminished breath sounds Cardiovascular: regular rate and rhythm Gastrointestinal: soft Musculoskeletal: muscle tone (normal) Extremities: edema (trace/B) Neurological: other (No focal deficits) Labs Result Diagram: 12/15/18 0425 12/15/18 0425 Results 24hrs Laboratory Tests Test 12/14/18 13:11 12/14/18 18:27 12/14/18 20:52 12/15/18 00:49 Bedside Glucose 95 76 85 84 Test 12/15/18 04:25 12/15/18 04:42 12/15/18 08:17 White Blood Count 7.6 Red Blood Count 3.13 L Hemoglobin 7.3 L Hematocrit 27.0 L Mean Corpuscular 86.3 Volume Mean Corpuscular 23.3 L Hemoglobin Mean Corpuscular 27.0 L Hemoglobin Concent Red Cell 28.7 H Distribution Width Platelet Count 231 Mean Platelet Volume 10.9 H Immature 0.400 Granulocytes % Neutrophils % 75.7 Lymphocytes % 10.3 L Monocytes % 7.7 Eosinophils % 5.5 Basophils % 0.4 Nucleated Red Blood 0.0 Cells % Immature 0.030 Granulocytes # Neutrophils # 5.7 Lymphocytes # 0.8 Monocytes # 0.6 Eosinophils # 0.4 Basophils # 0.0 Nucleated Red Blood 0.0 Cells # Sodium Level 141 Potassium Level 4.3 Chloride Level 98 Carbon Dioxide Level 30 Anion Gap 13 Blood Urea Nitrogen 26 H Creatinine 4.60 #H Est Glomerular Filtrat Rate mL/min Glucose Level 89 Calcium Level 8.9 Phosphorus Level 3.9 Magnesium Level 2.2 Bedside Glucose 91 103 TWAN ESTEVEZ Dec 15, 2018 10:47
--- NOTE | 2018-12-15 11:02 | CONS ---
Date/Time of Note Date/Time of Note DATE: 12/15/18 TIME: 10:59 Consult Date/Type/Reason Admit Date/Time Nov 23, 2018 at 22:01 Initial Consult Date 11/25/18 Type of Consultation: Pulm/CCM Requesting Provider: NAYANA GARCIA Subjective Status post tracheostomy and PEG tube. Still with intermittent agitation requiring fentanyl drip. Objective Vital Signs Date Temp Pulse Resp B/P (MAP) Pulse Ox O2 O2 Flow FiO2 Time Delivery Rate 12/15/18 85 10:45 12/15/18 17 124/71 96 10:30 (88) 12/15/18 [employer] 10:00 l Ventilato r 12/15/18 40 09:00 12/15/18 100.4 08:00 Intake and Output 12/14/18 12/14/18 12/15/18 1414:59 22:59 06:59 IntakeIntake Total 325 ml 102.5 ml 365 ml OutputOutput Total 20 ml 5 ml 70 ml BalanceBalance 305 ml 97.5 ml 295 ml Exam GENERAL: Elderly appearing gentleman comfortable at rest no acute distress. Continues mechanical ventilation via tracheostomy VITAL SIGNS: per chart NECK: Supple. No JVD or lymphadenopathy. CARDIAC EXAM: S1, S2. No added sounds or murmurs. CHEST: clear bilaterally, No added sounds, rales or wheezes ABDOMEN: Soft, nontender. No guarding or rebound. EXTREMITIES: No cyanosis, clubbing or edema. NEUROLOGIC: Generalized weakness. No focal deficits. Results/Medications Result Diagram: 12/15/18 0425 12/15/18 0425 Results 24 hrs Laboratory Tests Test 12/14/18 13:11 12/14/18 18:27 12/14/18 20:52 12/15/18 00:49 Bedside Glucose 95 76 85 84 Test 12/15/18 04:25 12/15/18 04:42 12/15/18 08:17 White Blood Count 7.6 Red Blood Count 3.13 L Hemoglobin 7.3 L Hematocrit 27.0 L Mean Corpuscular 86.3 Volume Mean Corpuscular 23.3 L Hemoglobin Mean Corpuscular 27.0 L Hemoglobin Concent Red Cell 28.7 H Distribution Width Platelet Count 231 Mean Platelet Volume 10.9 H Immature 0.400 Granulocytes % Neutrophils % 75.7 Lymphocytes % 10.3 L Monocytes % 7.7 Eosinophils % 5.5 Basophils % 0.4 Nucleated Red Blood 0.0 Cells % Immature 0.030 Granulocytes # Neutrophils # 5.7 Lymphocytes # 0.8 Monocytes # 0.6 Eosinophils # 0.4 Basophils # 0.0 Nucleated Red Blood 0.0 Cells # Sodium Level 141 Potassium Level 4.3 Chloride Level 98 Carbon Dioxide Level 30 Anion Gap 13 Blood Urea Nitrogen 26 H Creatinine 4.60 #H Est Glomerular Filtrat Rate mL/min Glucose Level 89 Calcium Level 8.9 Phosphorus Level 3.9 Magnesium Level 2.2 Bedside Glucose 91 103 Medications Current Medications Acetaminophen (Tylenol Liquid) 650 mg Q6H PRN PO PAIN LEVEL 1-3 OR FEVER Last administered on 12/02/18 02:31; Admin Dose 650 MG; Start 11/23/18 at 22:30 Acetaminophen (Tylenol Supp) 650 mg Q4H PRN [place] PAIN LEVEL 1-3 OR FEVER Last administered on 12/02/18 21:21; Admin Dose 650 MG; Start 11/23/18 at 22:30 Atorvastatin Calcium (Lipitor) 20 mg HS PO Last administered on 12/13/18 21:42; Admin Dose 20 MG; Start 11/24/18 at 21:00 Albuterol/ Ipratropium (Duoneb) 3 ml Q4H RESP THERAPY PRN HHN SHORTNESS OF BREATH; Start 11/24/18 at 09:00 Aripiprazole (Abilify) 5 mg DAILY PO Last administered on 12/15/18 10:11; Admin Dose 5 MG; Start 11/24/18 at 09:30 Digoxin (Digoxin) 0.25 mg DAILY@1300 PO Last administered on 11/26/18 13:41; Admin Dose 0.25 MG; Start 11/24/18 at 13:00; Status Hold Escitalopram Oxalate (Lexapro) 20 mg DAILY PO Last administered on 12/15/18 10:12; Admin Dose 20 MG; Start 11/24/18 at 09:30 Loratadine (Claritin) 10 mg DAILY PO Last administered on 12/15/18 10:12; Admin Dose 10 MG; Start 11/24/18 at 10:00 Multivitamins Therapeutic (Theragran) 1 tab DAILY PO Last administered on 12/15/18 10:12; Admin Dose 1 TAB; Start 11/24/18 at 09:30 Potassium Chloride (Micro-K) 8 meq DAILY PO Last administered on 11/24/18at 10:12; Admin Dose 8 MEQ; Start 11/24/18 at 10:00; Status Hold Tamsulosin HCl (Flomax) 0.4 mg HS PO Last administered on 12/13/18at 21:41; Admin Dose 0.4 MG; Start 11/24/18 at 21:00 Calcium/Vitamin D (Oyster Shell/ Vit-D (500/200)) 1 tab DAILY PO Last administered on 12/15/18at 10:12; Admin Dose 1 TAB; Start 11/24/18 at 09:30 Metoprolol Tartrate (Lopressor) 5 mg Q4H PRN IV HR>110 Hold SBP<100; Start 11/24/18 at 11:00 Diltiazem HCl (Cardizem Sr) 120 mg DAILY PO ; Start 11/25/18 at 14:00; Status Hold IV Flush (NS 10 ml) 10 ml PRN PRN IV IV PROTOCOL; Start 11/25/18 at 16:00 Hydralazine HCl (Apresoline) 25 mg Q8 PO Last administered on 12/14/18at 13:15; Admin Dose 25 MG; Start 11/26/18 at 22:00 Pantoprazole (Protonix Iv) 40 mg DAILY@06 IV Last administered on 12/15/18at 05:29; Admin Dose 40 MG; Start 11/29/18 at 06:00 Diagnostic Test (Pha) (Accu-Chek) 1 ea 02 XX Last administered on 12/10/18at 01:44; Admin Dose 1 EA; Start 12/01/18 at 02:00 Insulin Aspart (Novolog Insulin Pen) (Adult SC Insulin - Mild Algorithm)... Q4 SC Last administered on 12/08/18at 08:46; Admin Dose 1 UNIT; Start 11/30/18 at 09:00 Miscellaneous Information 1 ea NOTE XX ; Start 11/30/18 at 08:00 Glucose (Glutose) 15 gm Q15M PRN PO DECREASED GLUCOSE; Start 11/30/18 at 08:00 Glucose (Glutose) 22.5 gm Q15M PRN PO DECREASED GLUCOSE; Start 11/30/18 at 08:00 Dextrose (D50w Syringe) 25 ml Q15M PRN IV DECREASED GLUCOSE Last administered on 12/11/18 21:43; Admin Dose 25 ML; Start 11/30/18 at 08:00 Dextrose (D50w Syringe) 50 ml Q15M PRN IV DECREASED GLUCOSE; Start 11/30/18 at 08:00 Glucagon (Glucagen) 1 mg Q15M PRN IM DECREASED GLUCOSE; Start 11/30/18 at 08:00 Glucose (Glutose) 15 gm Q15M PRN BUCCAL DECREASED GLUCOSE; Start 11/30/18 at 08:00 Midazolam HCl 50 ml @ 1 mls/hr TITRATE IV Last administered on 12/03/18at 03:19; Admin Dose 4 MLS/HR; Start 12/02/18 at 07:00 Norepinephrine 16 mg/Dextrose 500 ml @ 1.88 mls/hr TITRATE IV Last administered on 12/09/18at 20:04; Admin Dose 1.88 MLS/HR; Start 12/02/18 at 09:30 Fentanyl 100 ml @ 2.5 mls/hr TITRATE IV Last administered on 12/15/18at 00:38; Admin Dose 5 MLS/HR; Start 12/02/18 at 10:30 Acetaminophen (Tylenol Tab) 650 mg Q4H PRN PO mild pain Last administered on 12/05/18 01:13; Admin Dose 650 MG; Start 12/02/18 at 12:00 Al Hydrox/Mg Hydrox/Simethicone (Mag-Al Plus) 30 ml Q4H PRN PO GASTROINTESTINAL UPSET; Start 12/02/18 at 12:00 Ondansetron HCl (Zofran Inj) 4 mg Q4H PRN IV NAUSEA AND/OR VOMITING Last administered on 12/07/18at 23:27; Admin Dose 4 MG; Start 12/02/18 at 12:00 Collagenase (Santyl) 1 applic DAILY TOP Last administered on 12/15/18 10:13; Admin Dose 1 APPLIC; Start 12/03/18 at 14:00 Aspirin (Aspirin) 81 mg DAILY NGT Last administered on 12/15/18 10:12; Admin Dose 81 MG; Start 12/06/18 at 09:00 Heparin Sodium (Porcine) (Heparin (1000 Units/ml)) 4,000 unit AFTER DIALYSIS CATHETER Last administered on 12/13/18at 11:48; Admin Dose 3,000 UNIT; Start 12/08/18 at 09:30 Albumin Human 100 ml @ 100 mls/hr WITH DIALYSIS PRN IV SBP less than 90 mm Hg Last administered on 12/13/18at 09:36; Admin Dose 100 MLS/HR; Start 12/08/18 at 09:30 Sodium Chloride (NS) -To prime the dialy... DIRECTED FOR HD PRN IV SBP less than 90 mm Hg; Start 12/08/18 at 09:30 Mannitol 62.5 ml @ 0 mls/hr WITH DIALYSIS PRN IV WITH DIALYSIS Last administ ered on 12/08/18at 22:03; Admin Dose 60 MLS/HR; Start 12/08/18 at 21:00 Fluconazole (Diflucan) 200 mg DAILY NGT Last administered on 12/14/18at 08:23; Admin Dose 200 MG; Start 12/10/18 at 09:00 Haloperidol (Haldol) 1 mg Q6H PRN IV agitation Last administered on 12/14/18at 13:24; Admin Dose 1 MG; Start 12/13/18 at 09:30 Morphine Sulfate (morphine) 2 mg Q2H PRN IV moderate to severe pain Last admini stered on 12/14/18at 05:23; Admin Dose 2 MG; Start 12/14/18 at 05:14 Dopamine HCl/ Dextrose 250 ml @ 8.25 mls/hr TITRATE PRN IV BLOOD PRESSURE SUPPORT; Start 12/14/18 at 16:30 Dextrose/Sodium Chloride 1,000 ml @ 50 mls/hr Q20H IV Last administered on 12/14/18at 23:33; Admin Dose 50 MLS/HR; Start 12/14/18 at 23:30 Sodium Chloride 250 ml @ 0 mls/hr Q0M IV* ; Start 12/15/18 at 09:14; Stop 12/15/18 at 23:00 Assessment/Plan Chief Complaint/Hosp Course IMP: 1. Acute on chronic hypoxemic/hypercapnic respiratory failure--most likely due to volume overload +/- pneumonia. Right pleural effusion. Status post thoracentesis. Now status post tracheostomy placement 2. Sigmoid mass, presumed colon cancer with recent severe anemia. Status post stent placement 3. Non-ST elevation myocardial infarction. Status post cardiac cath with no target lesions identified. 4. Atrial fibrillation with rapid ventricular response, now rate controlled 5. Acute renal failure likely contrast nephropathy remains dialysis dependent 6. Anemia RECS: 1. Resume tube feeding via G-tube. 2. HD/UF as per Renal 3. Vent support 4. Decrease sedation and fentanyl as tolerated. Trial of Seroquel Discussed with son at length at bedside. Critical care time 40 minutes. Transfer to telemetry when stable. [place] evaluation. JANNET BERG MD, [facility] Dec 15, 2018 11:01
[2018-12-15] MEDS: FLUCONAZOLE 200 MG TAB NGT SCH (12:00)
[2018-12-15] MEDS: ACETAMINOPHEN 325 MG TAB PO PRN (12:00)
[2018-12-15] MEDS: QUETIAPINE 25 MG TAB PO SCH ×2 (12:00→20:53)
--- NOTE | 2018-12-15 12:12 | PN ---
Date/Time of Note Date/Time of Note DATE: 12/15/18 TIME: 12:07 Assessment/Plan VTE Prophylaxis Risk score (from Ns)>0 risk: 18 SCD applied (from Ns): Yes Pharmacological prophylaxis: heparin Lines/Catheters IV Catheter Type (from [facility] Duong Urinary Cath still in place: No Reason Cath still needed: urinary retention Assessment/Plan Assessment/Plan 78-year-old male recently diagnosed with new colon mass, who presents with: # Hypoxic and hypercapnic respiratory failure: Appears to be due to pulmonary edema and possible pneumonia - Failed BiPAP, intubated 12/02. - Not requiring IV pressors - Continue Daily weaning trials per pulmonary recommendations - Trach/PEG placed on 12/14 # Sepsis: - Secondary to likely fungal UTI now, as well upper resp infection as well, as UA positive and urine culture showing Rosalie growth greater than 100,000 colony-forming units - For now continue fluconazole, white blood cell count normal, no fevers # Cardiac- elevated troponins: - Got cardiac cath 12/02, clear coronaries. -Continue aspirin and statin for now # Sigmoid mass: Status post biopsy during recent hospitalization. 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 Mass is almost completely obstructive. Patient received rectal stent on by Dr. Fang. -Monitor for now, Per discussion between hospitalist and Dr. Juan on 12/01, patient is not currently a surgical candidate due to his acute illness but may get surgery if he improves. -Per hematology oncology, it appears he has localized disease. Per their input, surgical resection is optimal treatment if he ever becomes stable for surgery. They have also stated typically radiation has no role in localized colon ca (radiation can play a role in palliative tx of met colon if painful site of metastatic disease for example). # Atrial fibrillation with RVR - resolved now -Continue to monitor, follow-up cardiology recommendations # Renal insufficiency: Oliguric acute on chronic renal failure. This was likely due to obstructive uropathy Being followed by renal team. Again received PermCath earlier and now on dialysis. -Continue monitor urine output, and continue dialysis per renal recommendations -Per renal team will next schedule patient for Thursday, Thursday, Thursday dialysis schedule #Hypernatremia -resolved -Monitor for now # Diabetes: Sugar stable, continue insulin while in-house DVT: Heparin GI: PPI Code status: Full. Family wants everything done to treat his multiorgan failure and cancer. Critical care time spent on patient care today equals 40 minutes. Result Diagram: 12/15/18 0425 12/15/18 0425 Results 24hrs Laboratory Tests Test 12/14/18 13:11 12/14/18 18:27 12/14/18 20:52 12/15/18 00:49 Bedside Glucose 95 76 85 84 Test 12/15/18 04:25 12/15/18 04:42 12/15/18 08:17 White Blood Count 7.6 Red Blood Count 3.13 L Hemoglobin 7.3 L Hematocrit 27.0 L Mean Corpuscular 86.3 Volume Mean Corpuscular 23.3 L Hemoglobin Mean Corpuscular 27.0 L Hemoglobin Concent Red Cell 28.7 H Distribution Width Platelet Count 231 Mean Platelet Volume 10.9 H Immature 0.400 Granulocytes % Neutrophils % 75.7 Lymphocytes % 10.3 L Monocytes % 7.7 Eosinophils % 5.5 Basophils % 0.4 Nucleated Red Blood 0.0 Cells % Immature 0.030 Granulocytes # Neutrophils # 5.7 Lymphocytes # 0.8 Monocytes # 0.6 Eosinophils # 0.4 Basophils # 0.0 Nucleated Red Blood 0.0 Cells # Sodium Level 141 Potassium Level 4.3 Chloride Level 98 Carbon Dioxide Level 30 Anion Gap 13 Blood Urea Nitrogen 26 H Creatinine 4.60 #H Est Glomerular Filtrat Rate mL/min Glucose Level 89 Calcium Level 8.9 Phosphorus Level 3.9 Magnesium Level 2.2 Bedside Glucose 91 103 Subjective 24 Hr Interval Summary Free Text/Dictation Patient got trach and PEG yesterday. This morning still confused, but interactive with family. Also getting HD this morning. Exam/Review of Systems Vital Signs Vitals Vital Signs Date Temp Pulse Resp B/P (MAP) Pulse Ox O2 O2 Flow FiO2 Time Delivery Rate 12/15/18 93 12:00 12/15/18 100.4 12:00 12/15/18 18 98 40 11:31 12/15/18 124/71 10:30 (88) 12/15/18 Mechanica 10:00 l Ventilato r Intake and Output 12/14/18 12/14/18 12/15/18 1515:00 23:00 07:00 IntakeIntake Total 330 ml 72.5 ml 415 ml OutputOutput Total 20 ml 5 ml 70 ml BalanceBalance 310 ml 67.5 ml 345 ml Exam Const: Lying in bed, awake, confused, not following commands. Head: Atraumatic, normocephalic Eyes: Normal Conjunctiva, pupils miotic nonreactive, normal sclera, no nystagmus ENT: Normal External Ears, ET tube in place. Neck: Supple. R IJ line in place. Trach in place. Resp: Mechanical breath sounds bilaterally. Cardio: Regular rate and rhythm, no murmurs, S1 S2 present Abd: Soft, non tender x 4, slight distention. Normal bowel sounds, no guarding or rebound Ext: No cyanosis, or edema. R fem line in place. Medications Medications Current Medications Acetaminophen (Tylenol Liquid) 650 mg Q6H PRN PO PAIN LEVEL 1-3 OR FEVER Last administered on 12/02/18 02:31; Admin Dose 650 MG; Start 11/23/18 at 22:30 Acetaminophen (Tylenol Supp) 650 mg Q4H PRN [place] PAIN LEVEL 1-3 OR FEVER Last administered on 12/02/18 21:21; Admin Dose 650 MG; Start 11/23/18 at 22:30 Atorvastatin Calcium (Lipitor) 20 mg HS PO Last administered on 12/13/18at 21:42; Admin Dose 20 MG; Start 11/24/18 at 21:00 Albuterol/ Ipratropium (Duoneb) 3 ml Q4H RESP THERAPY PRN HHN SHORTNESS OF BREATH; Start 11/24/18 at 09:00 Aripiprazole (Abilify) 5 mg DAILY PO Last administered on 12/15/18 10:11; Admin Dose 5 MG; Start 11/24/18 at 09:30 Digoxin (Digoxin) 0.25 mg DAILY@1300 PO Last administered on 11/26/18 13:41; Admin Dose 0.25 MG; Start 11/24/18 at 13:00; Status Hold Escitalopram Oxalate (Lexapro) 20 mg DAILY PO Last administered on 12/15/18 10:12; Admin Dose 20 MG; Start 11/24/18 at 09:30 Loratadine (Claritin) 10 mg DAILY PO Last administered on 12/15/18at 10:12; Admin Dose 10 MG; Start 11/24/18 at 10:00 Multivitamins Therapeutic (Theragran) 1 tab DAILY PO Last administered on 12/15/18 10:12; Admin Dose 1 TAB; Start 11/24/18 at 09:30 Potassium Chloride (Micro-K) 8 meq DAILY PO Last administered on 11/24/18 10:12; Admin Dose 8 MEQ; Start 11/24/18 at 10:00; Status Hold Tamsulosin HCl (Flomax) 0.4 mg HS PO Last administered on 12/13/18 21:41; Admin Dose 0.4 MG; Start 11/24/18 at 21:00 Calcium/Vitamin D (Oyster Shell/ Vit-D (500/200)) 1 tab DAILY PO Last administered on 12/15/18at 10:12; Admin Dose 1 TAB; Start 11/24/18 at 09:30 Metoprolol Tartrate (Lopressor) 5 mg Q4H PRN IV HR>110 Hold SBP<100; Start 11/24/18 at 11:00 Diltiazem HCl (Cardizem Sr) 120 mg DAILY PO ; Start 11/25/18 at 14:00; Status Hold IV Flush (NS 10 ml) 10 ml PRN PRN IV IV PROTOCOL; Start 11/25/18 at 16:00 Hydralazine HCl (Apresoline) 25 mg Q8 PO Last administered on 12/14/18at 13:15; Admin Dose 25 MG; Start 11/26/18 at 22:00 Pantoprazole (Protonix Iv) 40 mg DAILY@06 IV Last administered on 12/15/18at 05:29; Admin Dose 40 MG; Start 11/29/18 at 06:00 Diagnostic Test (Pha) (Accu-Chek) 1 ea 02 XX Last administered on 12/10/18at 01:44; Admin Dose 1 EA; Start 12/01/18 at 02:00 Insulin Aspart (Novolog Insulin Pen) (Adult SC Insulin - Mild Algorithm)... Q4 SC Last administered on 12/08/18at 08:46; Admin Dose 1 UNIT; Start 11/30/18 at 09:00 Miscellaneous Information 1 ea NOTE XX ; Start 11/30/18 at 08:00 Glucose (Glutose) 15 gm Q15M PRN PO DECREASED GLUCOSE; Start 11/30/18 at 08:00 Glucose (Glutose) 22.5 gm Q15M PRN PO DECREASED GLUCOSE; Start 11/30/18 at 08:00 Dextrose (D50w Syringe) 25 ml Q15M PRN IV DECREASED GLUCOSE Last administered on 12/11/18at 21:43; Admin Dose 25 ML; Start 11/30/18 at 08:00 Dextrose (D50w Syringe) 50 ml Q15M PRN IV DECREASED GLUCOSE; Start 11/30/18 at 08:00 Glucagon (Glucagen) 1 mg Q15M PRN IM DECREASED GLUCOSE; Start 11/30/18 at 08:00 Glucose (Glutose) 15 gm Q15M PRN BUCCAL DECREASED GLUCOSE; Start 11/30/18 at 08:00 Midazolam HCl 50 ml @ 1 mls/hr TITRATE IV Last administered on 12/03/18at 03:19; Admin Dose 4 MLS/HR; Start 12/02/18 at 07:00 Norepinephrine 16 mg/Dextrose 500 ml @ 1.88 mls/hr TITRATE IV Last administered on 12/09/18at 20:04; Admin Dose 1.88 MLS/HR; Start 12/02/18 at 09:30 Fentanyl 100 ml @ 2.5 mls/hr TITRATE IV Last administered on 12/15/18at 00:38; Admin Dose 5 MLS/HR; Start 12/02/18 at 10:30 Acetaminophen (Tylenol Tab) 650 mg Q4H PRN PO mild pain Last administered on 12/15/18at 12:00; Admin Dose 650 MG; Start 12/02/18 at 12:00 Al Hydrox/Mg Hydrox/Simethicone (Mag-Al Plus) 30 ml Q4H PRN PO GASTROINTESTINAL UPSET; Start 12/02/18 at 12:00 Ondansetron HCl (Zofran Inj) 4 mg Q4H PRN IV NAUSEA AND/OR VOMITING Last administered on 12/07/18at 23:27; Admin Dose 4 MG; Start 12/02/18 at 12:00 Collagenase (Santyl) 1 applic DAILY TOP Last administered on 12/15/18at 10:13; Admin Dose 1 APPLIC; Start 12/03/18 at 14:00 Aspirin (Aspirin) 81 mg DAILY NGT Last administered on 12/15/18 10:12; Admin Dose 81 MG; Start 12/06/18 at 09:00 Heparin Sodium (Porcine) (Heparin (1000 Units/ml)) 4,000 unit AFTER DIALYSIS CATHETER Last administered on 12/13/18 11:48; Admin Dose 3,000 UNIT; Start 12/08/18 at 09:30 Albumin Human 100 ml @ 100 mls/hr WITH DIALYSIS PRN IV SBP less than 90 mm Hg Last administered on 12/13/18at 09:36; Admin Dose 100 MLS/HR; Start 12/08/18 at 09:30 Sodium Chloride (NS) -To prime the dialy... DIRECTED FOR HD PRN IV SBP less than 90 mm Hg; Start 12/08/18 at 09:30 Mannitol 62.5 ml @ 0 mls/hr WITH DIALYSIS PRN IV WITH DIALYSIS Last administered on 12/08/18 22:03; Admin Dose 60 MLS/HR; Start 12/08/18 at 21:00 Fluconazole (Diflucan) 200 mg DAILY NGT Last administered on 12/15/18at 12:00; Admin Dose 200 MG; Start 12/10/18 at 09:00 Haloperidol (Haldol) 1 mg Q6H PRN IV agitation Last administered on 12/14/18 13:24; Admin Dose 1 MG; Start 12/13/18 at 09:30 Morphine Sulfate (morphine) 2 mg Q2H PRN IV moderate to severe pain Last administered on 12/14/18 05:23; Admin Dose 2 MG; Start 12/14/18 at 05:14 Dopamine HCl/ Dextrose 250 ml @ 8.25 mls/hr TITRATE PRN IV BLOOD PRESSURE SUPPORT; Start 12/14/18 at 16:30 Dextrose/Sodium Chloride 1,000 ml @ 50 mls/hr Q20H IV Last administered on 12/14/18at 23:33; Admin Dose 50 MLS/HR; Start 12/14/18 at 23:30 Sodium Chloride 250 ml @ 0 mls/hr Q0M IV* ; Start 12/15/18 at 09:14; Stop 12/15/18 at 23:00 Quetiapine Fumarate (Seroquel) 25 mg BID PO Last administered on 12/15/18at 12:00; Admin Dose 25 MG; Start 12/15/18 at 11:00 TWAN PATTERSON MD Dec 15, 2018 12:12
[2018-12-15] MEDS: HEPARIN 1000 UNITS/ML 10 ML INJ CATHETER SCH (12:32)
[2018-12-15] MEDS ORDERED: HEPARIN 5,000 UNIT/1 ML VIAL SC SCH (14:00)
--- NOTE | 2018-12-15 14:29 | NUR ---
Received an order this am for [facility] referral, t/c made to Sheila and sent the referral to her for review, still waiting for her response. Will follow the case.
[2018-12-15] MEDS: DEXTROSE 5%-0.45% NACL 1,000 ML IV SCH (18:39)
--- NOTE | 2018-12-15 19:00 | NUR ---
REPORT RECEIVED TO OUTGOING RN. YASMIN, ORDER HX. REVIEWED. PLAN OF CARE DISCUSSED TO PT. SON AND AT BEDSIDE, GASRIC RESIDUALS CHECKED< 30 CC. WILL CONTINUE TUBE FEEDING VIA PEG. TUBE, KEEP HOB.ELEVATED > 45 DEGREES FOR ASPIRATION PRECAUTIONS.
[2018-12-15] MEDS: morphine 4 MG/ML VIAL IV PRN (19:23)
--- NOTE | 2018-12-15 19:28 | NUR ---
Patient received dialysis and 2L were removed. VSS throughout the day, although patient did have a 1.6 sec pause with other smaller pauses for a few hours this afternoon, Dr. Ferro made aware of pauses from yesterday this morning. Pt. weaned of Fentanyl gtt and started on PO seroquel, also received 1 dose of prn Morphine tonight. Patient H&H dropped overnight, no obvious signs of bleeding at the time, patient received one unit of blood. This afternoon patient was found to have blood/clot coming from his rectum, this occurred again within an short period of time, Dr. Nolen made aware and labs rechecked. H&H were stable and patient had one more episode of bloody clot prior to end of shift. TF's were restarted but when the bleeding began they were shut off.
[2018-12-15] MEDS: ATORVASTATIN 20 MG TAB PO SCH (20:53)
[2018-12-15] MEDS: TAMSULOSIN (SR) 0.4 MG CAP PO SCH (20:53)
[2018-12-16] VITALS (30 sets, daily range): BP systolic 86–139; BP diastolic 51–78; PULSE 63–109; RESP 16–24
--- NOTE | 2018-12-16 00:49 | NUR ---
TELEMETRY W/ EPISODE OF SINUS PAUSES >2.8 SECONDS, BP RECHECKED 95/51. WILL CONTINUE TO MONITOR.
[2018-12-16] MEDS: Insulin NOVOLOG SS MILD Algorithm (NPO/TPN/ENTERAL FEEDS) SC SCH ×6 (01:00→21:00)
[2018-12-16] MEDS: ACCU-CHEK XX SCH (02:00)
--- NOTE | 2018-12-16 02:00 | NUR ---
received patient from
[2018-12-16] MEDS: PANTOPRAZOLE 40 MG INJ IV SCH (05:06)
--- NOTE | 2018-12-16 06:20 | NUR ---
END OF SHIFT REPORT NO ACUTE EVENTS OVER NIGHT. PT REMAINS LETHARGIC. OPENS EYES SLIGHTLY TO PAIN AND/OR VOICE. WITHDRAWS TO TOUCH. PT IS TOLERATING FEEDING WELL. ONLY 10CC URINE SINCE I RECEIVED PT AT 0200. VITALS WNL.
[2018-12-16] MEDS: ASPIRIN 325 MG TAB NGT SCH (08:10)
[2018-12-16] MEDS: CALCIUM/VITAMIN D (500/200) TAB PO SCH (08:10)
[2018-12-16] MEDS: ESCITALOPRAM 10 MG TAB PO SCH (08:10)
[2018-12-16] MEDS: ARIPIPRAZOLE 5 MG TAB PO SCH (08:10)
[2018-12-16] MEDS: MULTIVITAMINS THERAPEUTIC TAB PO SCH (08:11)
[2018-12-16] MEDS: COLLAGENASE 5 GM (UD JAR) TOP SCH (08:11)
[2018-12-16] MEDS: QUETIAPINE 25 MG TAB PO SCH ×2 (08:11→21:43)
[2018-12-16] MEDS: LORATADINE 10 MG TAB PO SCH (08:11)
[2018-12-16] MEDS: BALSAM PERU/CASTOR OIL 60 GM TUBE TOP SCH ×2 (08:11→21:00)
--- NOTE | 2018-12-16 09:06 | CONS ---
Assessment/Plan Assessment/Plan Assessment/Plan Ventilator setting; AC of 16, tidal volume 550, PEEP of 5, 30% FiO2. Assessment and recommendations; 1. Patient admitted with respiratory failure due to sepsis from pneumonia, UTI as well as CHF. Status post right thoracentesis without any recurrence of right pleural effusion. 2. Patient failed multiple weaning trials from ventilator, ultimately requiring tracheostomy and G-tube placement. 3. Encephalopathy. 4. Acute renal failure, now hemodialysis dependent. 5. Paroxysmal atrial fibrillation, currently in sinus rhythm. 6. Status post sigmoidoscopy with placement of sigmoid stent. 7. Status post cardiac catheterization with negative findings. 8. Persistent mild hypercapnia. Continue current supportive care. Perform SIMV trial with pressure support of 10 as tolerated. Patient can be transferred to telemetry unit. Prognosis is poor. Result Diagram: 12/16/1843112/16/18 0437 Results 24hrs Laboratory Tests Test 12/15/18 13:06 12/15/18 16:14 12/15/18 17:53 12/15/18 20:55 Bedside Glucose 95 83 85 White Blood Count 6.4 Red Blood Count 3.35 L Hemoglobin 8.1 L Hematocrit 29.0 L Mean Corpuscular 86.6 Volume Mean Corpuscular 24.2 L Hemoglobin Mean Corpuscular 27.9 L Hemoglobin Concent Red Cell 27.5 H Distribution Width Platelet Count 226 Mean Platelet Volume 10.8 H Immature 0.300 Granulocytes % Neutrophils % 70.6 Lymphocytes % 11.4 L Monocytes % 9.3 Eosinophils % 7.8 H Basophils % 0.6 Nucleated Red Blood 0.0 Cells % Immature 0.020 Granulocytes # Neutrophils # 4.5 Lymphocytes # 0.7 L Monocytes # 0.6 Eosinophils # 0.5 Basophils # 0.0 Nucleated Red Blood 0.0 Cells # Prothrombin Time 16.3 H Prothrombin Time 1.3 Ratio INR International 1.30 Normalized Ratio Activated 38.2 H Partial Thromboplast Time Fibrinogen 383.0 Test 12/16/18 01:12 12/16/18 04:28 12/16/18 04:32 12/16/18 04:37 Bedside Glucose 113 Magnesium Level 2.0 White Blood Count 7.1 Red Blood Count 3.17 L Hemoglobin 7.6 L Hematocrit 27.4 L Mean Corpuscular 86.4 Volume Mean Corpuscular 24.0 L Hemoglobin Mean Corpuscular 27.7 L Hemoglobin Concent Red Cell 27.5 H Distribution Width Platelet Count 242 Mean Platelet Volume Immature 0.300 Granulocytes % Neutrophils % 68.6 Lymphocytes % 12.5 L Monocytes % 10.5 Eosinophils % 7.7 H Basophils % 0.4 Nucleated Red Blood 0.0 Cells % Immature 0.020 Granulocytes # Neutrophils # 4.9 Lymphocytes # 0.9 Monocytes # 0.8 Eosinophils # 0.6 H Basophils # 0.0 Nucleated Red Blood 0.0 Cells # Sodium Level 139 Potassium Level 3.9 Chloride Level 97 Carbon Dioxide Level 29 Anion Gap 13 Blood Urea Nitrogen 19 Creatinine 3.41 #H Est Glomerular Filtrat Rate mL/min Glucose Level 110 Calcium Level 8.5 Phosphorus Level 3.0 Test 12/16/18 04:59 12/16/18 08:31 Bedside Glucose 114 116 Consultation Date/Type/Reason Admit Date/Time Nov 23, 2018 at 22:01 Initial Consult Date 11/24/18 Type of Consult Pulmonary/critical care Requesting Provider: NAYANA GARCIA 24 HR Interval Summary Free Text/Dictation Patient's condition remains critical but stable. Status post tracheostomy and G-tube placement. Patient has remained hemodynamically stable. General exam; elderly male, on ventilator via tracheostomy, awake but noncommunicative. Currently in no distress. Exam/Review of Systems Vital Signs Vitals Vital Signs Date Temp Pulse Resp B/P (MAP) Pulse Ox O2 O2 Flow FiO2 Time Delivery Rate 12/16/18 80 16 91/51 (64) 96 Mechanical 08:00 Ventilator 12/16/18 30 08:00 12/16/18 98.6 07:00 Intake and Output 12/15/18 12/15/18 12/16/18 1515:00 23:00 07:00 IntakeIntake Total 537.5 ml 490 ml 790 ml OutputOutput Total 2515 ml 20 ml 15 ml BalanceBalance -1977.5 ml 470 ml 775 ml Exam HEENT exam; supple neck, positive JVD. No lymphadenopathy. Midline trachea. No thyromegaly. Patient is edentulous. Tracheostomy in place. Insertion site is clean. No neck masses. Pupils are small bilaterally. Chest exam; diminished but clear breath sounds. S1-S2 audible, no murmurs. Regular rhythm. Abdomen exam; soft, G-tube in place. Nondistended. No organomegaly. Bowel sounds audible. Extremity exam; no peripheral edema or clubbing. 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 Medications Medications Current Medications Acetaminophen (Tylenol Liquid) 650 mg Q6H PRN PO PAIN LEVEL 1-3 OR FEVER Last administered on 12/02/18 02:31; Admin Dose 650 MG; Start 11/23/18 at 22:30 Acetaminophen (Tylenol Supp) 650 mg Q4H PRN [place] PAIN LEVEL 1-3 OR FEVER Last administered on 12/02/18 21:21; Admin Dose 650 MG; Start 11/23/18 at 22:30 Atorvastatin Calcium (Lipitor) 20 mg HS PO Last administered on 12/15/18 20:53; Admin Dose 20 MG; Start 11/24/18 at 21:00 Albuterol/ Ipratropium (Duoneb) 3 ml Q4H RESP THERAPY PRN HHN SHORTNESS OF BREATH; Start 11/24/18 at 09:00 Aripiprazole (Abilify) 5 mg DAILY PO Last administered on 12/16/18 08:10; Admin Dose 5 MG; Start 11/24/18 at 09:30 Digoxin (Digoxin) 0.25 mg DAILY@1300 PO Last administered on 11/26/18 13:41; Admin Dose 0.25 MG; Start 11/24/18 at 13:00; Status Hold Escitalopram Oxalate (Lexapro) 20 mg DAILY PO Last administered on 12/16/18 08:10; Admin Dose 20 MG; Start 11/24/18 at 09:30 Loratadine (Claritin) 10 mg DAILY PO Last administered on 12/16/18 08:11; Admin Dose 10 MG; Start 11/24/18 at 10:00 Multivitamins Therapeutic (Theragran) 1 tab DAILY PO Last administered on 12/16/18 08:11; Admin Dose 1 TAB; Start 11/24/18 at 09:30 Potassium Chloride (Micro-K) 8 meq DAILY PO Last administered on 11/24/18 10:12; Admin Dose 8 MEQ; Start 11/24/18 at 10:00; Status Hold Tamsulosin HCl (Flomax) 0.4 mg HS PO Last administered on 12/15/18 20:53; Admin Dose 0.4 MG; Start 11/24/18 at 21:00 Calcium/Vitamin D (Oyster Shell/ Vit-D (500/200)) 1 tab DAILY PO Last administered on 12/16/18at 08:10; Admin Dose 1 TAB; Start 11/24/18 at 09:30 Metoprolol Tartrate (Lopressor) 5 mg Q4H PRN IV HR>110 Hold SBP<100; Start 11/24/18 at 11:00 Diltiazem HCl (Cardizem Sr) 120 mg DAILY PO ; Start 11/25/18 at 14:00; Status Hold IV Flush (NS 10 ml) 10 ml PRN PRN IV IV PROTOCOL; Start 11/25/18 at 16:00 Hydralazine HCl (Apresoline) 25 mg Q8 PO Last administered on 12/14/18at 13:15; Admin Dose 25 MG; Start 11/26/18 at 22:00 Pantoprazole (Protonix Iv) 40 mg DAILY@06 IV Last administered on 12/16/18at 0 5:06; Admin Dose 40 MG; Start 11/29/18 at 06:00 Diagnostic Test (Pha) (Accu-Chek) 1 ea 02 XX Last administered on 12/10/18at 01:44; Admin Dose 1 EA; Start 12/01/18 at 02:00 Insulin Aspart (Novolog Insulin Pen) (Adult SC Insulin - Mild Algorithm)... Q4 SC Last administered on 12/08/18at 08:46; Admin Dose 1 UNIT; Start 11/30/18 at 09:00 Miscellaneous Information 1 ea NOTE XX ; Start 11/30/18 at 08:00 Glucose (Glutose) 15 gm Q15M PRN PO DECREASED GLUCOSE; Start 11/30/18 at 08:00 Glucose (Glutose) 22.5 gm Q15M PRN PO DECREASED GLUCOSE; Start 11/30/18 at 08:00 Dextrose (D50w Syringe) 25 ml Q15M PRN IV DECREASED GLUCOSE Last administered on 12/11/18at 21:43; Admin Dose 25 ML; Start 11/30/18 at 08:00 Dextrose (D50w Syringe) 50 ml Q15M PRN IV DECREASED GLUCOSE; Start 11/30/18 at 08:00 Glucagon (Glucagen) 1 mg Q15M PRN IM DECREASED GLUCOSE; Start 11/30/18 at 08:00 Glucose (Glutose) 15 gm Q15M PRN BUCCAL DECREASED GLUCOSE; Start 11/30/18 at 08:00 Midazolam HCl 50 ml @ 1 mls/hr TITRATE IV Last administered on 12/03/18at 03:19; Admin Dose 4 MLS/HR; Start 12/02/18 at 07:00 Norepinephrine 16 mg/Dextrose 500 ml @ 1.88 mls/hr TITRATE IV Last administered on 12/09/18at 20:04; Admin Dose 1.88 MLS/HR; Start 12/02/18 at 09:30 Fentanyl 100 ml @ 2.5 mls/hr TITRATE IV Last administered on 12/15/18at 00:38; Admin Dose 5 MLS/HR; Start 12/02/18 at 10:30 Acetaminophen (Tylenol Tab) 650 mg Q4H PRN PO mild pain Last administered on 12/15/18 12:00; Admin Dose 650 MG; Start 12/02/18 at 12:00 Al Hydrox/Mg Hydrox/Simethicone (Mag-Al Plus) 30 ml Q4H PRN PO GASTROINTESTINAL UPSET; Start 12/02/18 at 12:00 Ondansetron HCl (Zofran Inj) 4 mg Q4H PRN IV NAUSEA AND/OR VOMITING Last administered on 12/07/18 23:27; Admin Dose 4 MG; Start 12/02/18 at 12:00 Collagenase (Santyl) 1 applic DAILY TOP Last administered on 12/16/18 08:11; Admin Dose 1 APPLIC; Start 12/03/18 at 14:00 Aspirin (Aspirin) 81 mg DAILY NGT Last administered on 12/16/18 08:10; Admin Dose 81 MG; Start 12/06/18 at 09:00 Heparin Sodium (Porcine) (Heparin (1000 Units/ml)) 4,000 unit AFTER DIALYSIS CATHETER Last administered on 12/15/18 12:32; Admin Dose 4,000 UNIT; Start 12/08/18 at 09:30 Albumin Human 100 ml @ 100 mls/hr WITH DIALYSIS PRN IV SBP less than 90 mm Hg Last administered on 12/13/18 09:36; Admin Dose 100 MLS/HR; Start 12/08/18 at 09:30 Sodium Chloride (NS) -To prime the dialy... DIRECTED FOR HD PRN IV SBP less than 90 mm Hg; Start 12/08/18 at 09:30 Mannitol 62.5 ml @ 0 mls/hr WITH DIALYSIS PRN IV WITH DIALYSIS Last administered on 12/08/18at 22:03; Admin Dose 60 MLS/HR; Start 12/08/18 at 21:00 Haloperidol (Haldol) 1 mg Q6H PRN IV agitation Last administered on 12/14/18at 13:24; Admin Dose 1 MG; Start 12/13/18 at 09:30 Morphine Sulfate (morphine) 2 mg Q2H PRN IV moderate to severe pain Last administered on 12/15/18at 19:23; Admin Dose 2 MG; Start 12/14/18 at 05:14 Dopamine HCl/ Dextrose 250 ml @ 8.25 mls/hr TITRATE PRN IV BLOOD PRESSURE SUPPORT; Start 12/14/18 at 16:30 Dextrose/Sodium Chloride 1,000 ml @ 50 mls/hr Q20H IV Last administered on 12/15/18at 18:39; Admin Dose 50 MLS/HR; Start 12/14/18 at 23:30 Quetiapine Fumarate (Seroquel) 25 mg BID PO Last administered on 12/16/18at 08:11; Admin Dose 25 MG; Start 12/15/18 at 11:00 Date/Time of Note Date/Time of Note DATE: 12/16/18 TIME: 09:03 OK SOOD Dec 16, 2018 09:06
[2018-12-16] MEDS ORDERED: SOD CHLORIDE 0.9% 250 ML IV* ONE (09:10)
[2018-12-16] MEDS: morphine 4 MG/ML VIAL IV PRN (09:27)
--- NOTE | 2018-12-16 10:00 | NUR ---
MD VISIT DR. PATTERSON HERE TO SEE PATIENT AND UPDATED WITH PT'S CONDITION RE: PATIENT HAD AN EPISODE OF SMALL RECTAL BLEEDING. DOCTOR AWARE AND PER DR. PATTERSON, DR. BRIGGS AWARE OF BLEEDING . ORDERS TO TRANSFER PATIENT TO TELE.
--- NOTE | 2018-12-16 10:58 | NUR ---
PT NOTE , ORDER ACKNOWLEDGED ,CHART REVIEW COMPLETED , DISCUSSED THIS CASE WITH RN , PATIENT S/P TRACHEOSTOMY AND PEG PLACEMENT ON 12/14/18 , DUE TO INTERMITTENT AGITATION , PATIENT WAS SEDATED, ,LETHARGIC UNABLE TO FOLLOW COMMAND , PER RN REQUEST WILL HOLD PT TODAY, PLAN TO FOLLOW UP ON 12/17/18.
--- NOTE | 2018-12-16 10:58 | PN ---
Date/Time of Note Date/Time of Note DATE: 12/16/18 TIME: 10:57 Assessment/Plan Lines/Catheters IV Catheter Type (from [facility]): RADHA CATHETER [place] in Place (from [facility]): Yes Assessment/Plan Chief Complaint/Hosp Course -Bilateral lower extremity atherosclerosis: It seems the patient has nonpalpable pedal pulses at the moment. The patient does not have any signi ficant tissue loss or ulcerations that would require any further vascular intervention. We will plan to continue to monitor the patient's followup. The patient is currently on vasopressors and intubated. Not much vascular option can be provided. -Renal failure: It seems the patient has developed acute on chronic kidney disease in which his renal failure has worsened requiring dialysis with sig nificant uremia. -S/P Right femoral Radha catheter placement -Will plan to continue the patient's progression and should he need a permanent dialysis catheter and/or access creation. -Optimize vascular status (BP meds, diet, nutrition, exercise, sugar control, and antiplatelets). -Discussed findings, plan, and management with the patient's son at the bedside; he agreed to proceed understanding all that is involved. -Thank you for allowing us to partake in the care of your patient. Please call with any questions. Subjective 24 Hr Interval Summary no new vascular events overnight Exam/Review of Systems Vital Signs Vitals Vital Signs Date Temp Pulse Resp B/P (MAP) Pulse Ox O2 O2 Flow FiO2 Time Delivery Rate 12/16/18 97 20 114/65 95 Mechanical 10:00 (81) Ventilator 12/16/18 30 08:00 12/16/18 98.6 07:00 Intake and Output 12/15/18 12/15/18 12/16/18 1515:00 23:00 07:00 IntakeIntake Total 537.5 ml 490 ml 840 ml OutputOutput Total 2515 ml 20 ml 15 ml BalanceBalance -1977.5 ml 470 ml 825 ml Exam Free Text/Dictation GENERAL: Trach sedated, and comfortable. HEENT: Normocephalic, atraumatic. Mucosa moist. NECK: Supple. No carotid bruit. Right internal jugular vein, triple lumen catheter. CARDIOVASCULAR: S1 and S2 present, irregular. PULMONARY: Coarse breath sounds bilaterally, crackles at the bases. ABDOMEN: Soft, nontender, and nondistended. Bowel sounds positive. Truncal obesity. RIGHT LOWER EXTREMITY: Palpable femoral pulse. Nonpalpable pedal pulse. Motor and sensory unable to ascertain as the patient is intubated. Edema of 2+. Lucero, a dry ulcer. groin catheter intact LEFT LOWER EXTREMITY: Palpable femoral pulse. Nonpalpable pedal pulse. Motor and sensory unable to ascertain as the patient is intubated and sedated. Capillary refill 3 to 4 seconds. Edema of 1 to 2+ Results Result Diagram: 12/16/18 0432 12/16/18 0437 MARY VASQUEZ MD Dec 16, 2018 10:58
--- NOTE | 2018-12-16 11:10 | NUR ---
Case Management Notes: Patient accepted at [facility] today as per Sheila, still working on a bed. HEADMASTER/MISTRESSLEYLA Maldonado and CN notified and also Dr. Skinner. Will follow the case. HOLLEY ext [phone] Addendum: 12/16/18 at 1411 by MARKO GHOSH RN, CM Pt got a bed at [facility] already room # 3346, can transfer patient after 6pm as per Sheila. Please call for a report at ext [phone]. Gisele BABB notified.
--- NOTE | 2018-12-16 11:14 | CONS ---
Assessment/Plan Assessment/Plan Assessment/Plan 1. Oliguric SIMI on CKD with Progressive uremic Encephalopathy progressed to ESRD- started on HD during this admission on 12/08/18 2. atrial fibrillation with RVR- now rate controlled 3. acute hypoxemic and hypercapnic resp failure due to PNA - failed BIPAP; intubated 4. Sepsis 5. Positive troponin 6. BPH on flomax 7. Colon CA Plan: pt remained on ventilator, s/p tracheostomy and PEG tube , Started on HD on 12/08/18- HD ordered for Thursday- will keep pt on MWF schedule from now.- pt currently has Temporary pat HD catheter, will wait for pt to be more stable before switching it to Permacath S/p LHC which showed moderate Nonobstructive CAD - medical management SP Colonoscopy with stent placement by GI Full code will follow up Result Diagram: 12/16/18 0432 12/16/18 0437 Results 24hrs Laboratory Tests Test 12/15/18 13:06 12/15/18 16:14 12/15/18 17:53 12/15/18 20:55 Bedside Glucose 95 83 85 White Blood Count 6.4 Red Blood Count 3.35 L Hemoglobin 8.1 L Hematocrit 29.0 L Mean Corpuscular 86.6 Volume Mean Corpuscular 24.2 L Hemoglobin Mean Corpuscular 27.9 L Hemoglobin Concent Red Cell 27.5 H Distribution Width Platelet Count 226 Mean Platelet Volume 10.8 H Immature 0.300 Granulocytes % Neutrophils % 70.6 Lymphocytes % 11.4 L Monocytes % 9.3 Eosinophils % 7.8 H Basophils % 0.6 Nucleated Red Blood 0.0 Cells % Immature 0.020 Granulocytes # Neutrophils # 4.5 Lymphocytes # 0.7 L Monocytes # 0.6 Eosinophils # 0.5 Basophils # 0.0 Nucleated Red Blood 0.0 Cells # Prothrombin Time 16.3 H Prothrombin Time 1.3 Ratio INR International 1.30 Normalized Ratio Activated 38.2 H Partial Thromboplast Time Fibrinogen 383.0 Test 12/16/18 01:12 12/16/18 04:28 12/16/18 04:32 12/16/18 04:37 Bedside Glucose 113 Magnesium Level 2.0 White Blood Count 7.1 Red Blood Count 3.17 L Hemoglobin 7.6 L Hematocrit 27.4 L Mean Corpuscular 86.4 Volume Mean Corpuscular 24.0 L Hemoglobin Mean Corpuscular 27.7 L Hemoglobin Concent Red Cell 27.5 H Distribution Width Platelet Count 242 Mean Platelet Volume Immature 0.300 Granulocytes % Neutrophils % 68.6 Lymphocytes % 12.5 L Monocytes % 10.5 Eosinophils % 7.7 H Basophils % 0.4 Nucleated Red Blood 0.0 Cells % Immature 0.020 Granulocytes # Neutrophils # 4.9 Lymphocytes # 0.9 Monocytes # 0.8 Eosinophils # 0.6 H Basophils # 0.0 Nucleated Red Blood 0.0 Cells # Sodium Level 139 Potassium Level 3.9 Chloride Level 97 Carbon Dioxide Level 29 Anion Gap 13 Blood Urea Nitrogen 19 Creatinine 3.41 #H Est Glomerular Filtrat Rate mL/min Glucose Level 110 Calcium Level 8.5 Phosphorus Level 3.0 Test 12/16/18 04:59 12/16/18 08:31 Bedside Glucose 114 116 Consultation Date/Type/Reason Admit Date/Time Nov 23, 2018 at 22:01 Initial Consult Date 11/24/18 Type of Consult NEPHROLOGY Requesting Provider: NAYANA GARCIA 24 HR Interval Summary Free Text/Dictation s/p tracheostomy stable, s/p Hd yesteday, possible downgrade to tele, Exam/Review of Systems Vital Signs Vitals Vital Signs Date Temp Pulse Resp B/P (MAP) Pulse Ox O2 O2 Flow FiO2 Time Delivery Rate 12/16/18 101 19 111/61 94 Mechanical 11:00 (78) Ventilator 12/16/18 30 08:00 12/16/18 98.6 07:00 Intake and Output 12/15/18 12/15/18 12/16/18 1515:00 23:00 07:00 IntakeIntake Total 537.5 ml 490 ml 840 ml OutputOutput Total 2515 ml 20 ml 15 ml BalanceBalance -1977.5 ml 470 ml 825 ml Exam Constitutional: on ventilator,s/p tracheostomy Respiratory: Bilateral coarse BS+, basilar crackles Cardiovascular: regular rate and rhythm, nl pulses Gastrointestinal: soft, non-tender, + PEG tube in place Musculoskeletal: 1-2+ pitting edema , + hess catheter Neurological: sedated on ventilator Medications Medications Current Medications Acetaminophen (Tylenol Liquid) 650 mg Q6H PRN PO PAIN LEVEL 1-3 OR FEVER Last administered on 12/02/18at 02:31; Admin Dose 650 MG; Start 11/23/18 at 22:30 Atorvastatin Calcium (Lipitor) 20 mg HS PO Last administered on 12/15/18 20:53; Admin Dose 20 MG; Start 11/24/18 at 21:00 Albuterol/ Ipratropium (Duoneb) 3 ml Q4H RESP THERAPY PRN HHN SHORTNESS OF BREATH; Start 11/24/18 at 09:00 Aripiprazole (Abilify) 5 mg DAILY PO Last administered on 12/16/18 08:10; Admin Dose 5 MG; Start 11/24/18 at 09:30 Escitalopram Oxalate (Lexapro) 20 mg DAILY PO Last administered on 12/16/18 08:10; Admin Dose 20 MG; Start 11/24/18 at 09:30 Loratadine (Claritin) 10 mg DAILY PO Last administered on 12/16/18 08:11; Admin Dose 10 MG; Start 11/24/18 at 10:00 Multivitamins Therapeutic (Theragran) 1 tab DAILY PO Last administered on 12/16/18 08:11; Admin Dose 1 TAB; Start 11/24/18 at 09:30 Potassium Chloride (Micro-K) 8 meq DAILY PO Last administered on 11/24/18 10:12; Admin Dose 8 MEQ; Start 11/24/18 at 10:00; Status Hold Tamsulosin HCl (Flomax) 0.4 mg HS PO Last administered on 12/15/18 20:53; Admin Dose 0.4 MG; Start 11/24/18 at 21:00 Calcium/Vitamin D (Oyster Shell/ Vit-D (500/200)) 1 tab DAILY PO Last administered on 12/16/18 08:10; Admin Dose 1 TAB; Start 11/24/18 at 09:30 Metoprolol Tartrate (Lopressor) 5 mg Q4H PRN IV HR>110 Hold SBP<100; Start 11/24/18 at 11:00 Diltiazem HCl (Cardizem Sr) 120 mg DAILY PO ; Start 11/25/18 at 14:00; Status Hold IV Flush (NS 10 ml) 10 ml PRN PRN IV IV PROTOCOL; Start 11/25/18 at 16:00 Hydralazine HCl (Apresoline) 25 mg Q8 PO Last administered on 1/22/19at 13:15; Admin Dose 25 MG; Start 11/26/18 at 22:00 Pantoprazole (Protonix Iv) 40 mg DAILY@06 IV Last administered on 12/16/18at 05:06; Admin Dose 40 MG; Start 11/29/18 at 06:00 Diagnostic Test (Pha) (Accu-Chek) 1 ea 02 XX Last administered on 12/10/18at 01:44; Admin Dose 1 EA; Start 12/01/18 at 02:00 Insulin Aspart (Novolog Insulin Pen) (Adult SC Insulin - Mild Algorithm)... Q4 SC Last administered on 12/08/18at 08:46; Admin Dose 1 UNIT; Start 11/30/18 at 09:00 Miscellaneous Information 1 ea NOTE XX ; Start 11/30/18 at 08:00 Glucose (Glutose) 15 gm Q15M PRN PO DECREASED GLUCOSE; Start 11/30/18 at 08:00 Glucose (Glutose) 22.5 gm Q15M PRN PO DECREASED GLUCOSE; Start 11/30/18 at 08:00 Dextrose (D50w Syringe) 25 ml Q15M PRN IV DECREASED GLUCOSE Last administered on 12/11/18at 21:43; Admin Dose 25 ML; Start 11/30/18 at 08:00 Dextrose (D50w Syringe) 50 ml Q15M PRN IV DECREASED GLUCOSE; Start 11/30/18 at 08:00 Glucagon (Glucagen) 1 mg Q15M PRN IM DECREASED GLUCOSE; Start 11/30/18 at 08:00 Glucose (Glutose) 15 gm Q15M PRN BUCCAL DECREASED GLUCOSE; Start 11/30/18 at 08:00 Al Hydrox/Mg Hydrox/Simethicone (Mag-Al Plus) 30 ml Q4H PRN PO GASTROINTESTINAL UPSET; Start 12/02/18 at 12:00 Ondansetron HCl (Zofran Inj) 4 mg Q4H PRN IV NAUSEA AND/OR VOMITING Last administered on 12/07/18at 23:27; Admin Dose 4 MG; Start 12/02/18 at 12:00 Collagenase (Santyl) 1 applic DAILY TOP Last administered on 12/16/18 08:11; Admin Dose 1 APPLIC; Start 12/03/18 at 14:00 Aspirin (Aspirin) 81 mg DAILY NGT Last administered on 12/16/18at 08:10; Admin Dose 81 MG; Start 12/06/18 at 09:00 Heparin Sodium (Porcine) (Heparin (1000 Units/ml)) 4,000 unit AFTER DIALYSIS CATHETER Last administered on 12/15/18 12:32; Admin Dose 4,000 UNIT; Start 12/08/18 at 09:30 Albumin Human 100 ml @ 100 mls/hr WITH DIALYSIS PRN IV SBP less than 90 mm Hg Last administered on 12/13/18 09:36; Admin Dose 100 MLS/HR; Start 12/08/18 at 09:30 Sodium Chloride (NS) -To prime the dialy... DIRECTED FOR HD PRN IV SBP less than 90 mm Hg; Start 12/08/18 at 09:30 Mannitol 62.5 ml @ 0 mls/hr WITH DIALYSIS PRN IV WITH DIALYSIS Last administered on 12/08/18 22:03; Admin Dose 60 MLS/HR; Start 12/08/18 at 21:00 Haloperidol (Haldol) 1 mg Q6H PRN IV agitation Last administered on 12/14/18 13:24; Admin Dose 1 MG; Start 12/13/18 at 09:30 Morphine Sulfate (morphine) 2 mg Q2H PRN IV moderate to severe pain Last administered on 12/16/18 09:27; Admin Dose 2 MG; Start 12/14/18 at 05:14 Dextrose/Sodium Chloride 1,000 ml @ 50 mls/hr Q20H IV Last administered on 12/15/18 18:39; Admin Dose 50 MLS/HR; Start 12/14/18 at 23:30 Quetiapine Fumarate (Seroquel) 25 mg BID PO Last administered on 12/16/18 08:11; Admin Dose 25 MG; Start 12/15/18 at 11:00 Date/Time of Note Date/Time of Note DATE: 12/16/18 TIME: 11:14 RENAN HERNANDEZ MD Dec 16, 2018 11:14
--- NOTE | 2018-12-16 11:26 | NUR ---
NURSING NOTES CALLED [facility] #[id number] FOR HD IN AM
--- NOTE | 2018-12-16 11:54 | CONS ---
Assessment/Plan Cardiology NYHA: II Heart Failure Type: Diastolic Assessment/Plan Hospital Course (Demo Recall) Hospital Course IMPRESSION: 1. Non-ST elevation myocardial infarction, currently down trending cardiac enzymes likely a type 2 demand infarct in the setting of fevers, hypercarbic respiratory failure.-downtrended cardiac enzymes. NO cp. Echo this admit 11/24 with NL EF 55%. Now s/p LHC 12/02 with no sig major epicardial obstructive cad. LVEDP 21 2. Abnormal electrocardiogram. 3. Right bundle branch block. 4. Colonic mass s/p stent placement 5. Anemia. 6. Renal failure-On HD 7. Leukocytosis. 8. Coagulopathy. 9. Sepsis. 10. Atrial fibrillation-now in SR 11.CHF-diastolic acute on chronic 12. Resp failure s/p intubation 14. Hypotension off levophed 15. Asystole-short runs happened yesterday. No recurrence today. ? increased vagal tone Recc: -ICU -Continue asa/statin -off levo. Follow BP closely. Hold hydralazine given marginal BP -Continue broad spectrum abx's and f/u cx data -wean vent as possible -HD for volume removal as tolerated Consultation Date/Type/Reason Admit Date/Time Nov 23, 2018 at 22:01 Initial Consult Date 11/24/18 Type of Consult Cardiology Reason for Consultation Nstemi Requesting Provider: NAYANA GARCIA Date/Time of Note DATE: 12/16/18 TIME: 11:52 Exam/Review of Systems Vital Signs Vitals Vital Signs Date Temp Pulse Resp B/P (MAP) Pulse Ox O2 O2 Flow FiO2 Time Delivery Rate 12/16/18 101 19 111/61 94 Mechanical 11:00 (78) Ventilator 12/16/18 30 08:00 12/16/18 98.6 07:00 Intake and Output 12/15/18 12/15/18 12/16/18 1515:00 23:00 07:00 IntakeIntake Total 537.5 ml 490 ml 840 ml OutputOutput Total 2515 ml 20 ml 15 ml BalanceBalance -1977.5 ml 470 ml 825 ml Exam Exam Review of Systems: CONSTITUTIONAL: No fevers, chills. PULMONARY: No sob CARDIOVASCULAR: No chest pain/palpitations GASTROINTESTINAL: No nausea/vomiting. GENITOURINARY: No hematuria/dysuria. MUSCULOSKELETAL: No myagias/arthalgias. PSYCHIATRIC: The patient denies depression. NEUROLOGIC: No weakness Constitutional: alert, oriented Psych: no complaints Head: normocephalic ENMT: mucosa pink and moist Neck: supple, jvd (9 cm water), other (trached) Respiratory: diminished breath sounds (at bases/B) Cardiovascular: regular rate and rhythm Gastrointestinal: soft, non-tender Musculoskeletal: muscle tone (normal) Extremities: edema (none) Neurological: other (No focal deficits) Labs Result Diagram: 12/16/18 0432 12/16/18 0437 Results 24hrs Laboratory Tests Test 12/15/18 13:06 12/15/18 16:14 12/15/18 17:53 12/15/18 20:55 Bedside Glucose 95 83 85 White Blood Count 6.4 Red Blood Count 3.35 L Hemoglobin 8.1 L Hematocrit 29.0 L Mean Corpuscular 86.6 Volume Mean Corpuscular 24.2 L Hemoglobin Mean Corpuscular 27.9 L Hemoglobin Concent Red Cell 27.5 H Distribution Width Platelet Count 226 Mean Platelet Volume 10.8 H Immature 0.300 Granulocytes % Neutrophils % 70.6 Lymphocytes % 11.4 L Monocytes % 9.3 Eosinophils % 7.8 H Basophils % 0.6 Nucleated Red Blood 0.0 Cells % Immature 0.020 Granulocytes # Neutrophils # 4.5 Lymphocytes # 0.7 L Monocytes # 0.6 Eosinophils # 0.5 Basophils # 0.0 Nucleated Red Blood 0.0 Cells # Prothrombin Time 16.3 H Prothrombin Time 1.3 Ratio INR International 1.30 Normalized Ratio Activated 38.2 H Partial Thromboplast Time Fibrinogen 383.0 Test 12/16/18 01:12 12/16/18 04:28 12/16/18 04:32 12/16/18 04:37 Bedside Glucose 113 Magnesium Level 2.0 White Blood Count 7.1 Red Blood Count 3.17 L Hemoglobin 7.6 L Hematocrit 27.4 L Mean Corpuscular 86.4 Volume Mean Corpuscular 24.0 L Hemoglobin Mean Corpuscular 27.7 L Hemoglobin Concent Red Cell 27.5 H Distribution Width Platelet Count 242 Mean Platelet Volume Immature 0.300 Granulocytes % Neutrophils % 68.6 Lymphocytes % 12.5 L Monocytes % 10.5 Eosinophils % 7.7 H Basophils % 0.4 Nucleated Red Blood 0.0 Cells % Immature 0.020 Granulocytes # Neutrophils # 4.9 Lymphocytes # 0.9 Monocytes # 0.8 Eosinophils # 0.6 H Basophils # 0.0 Nucleated Red Blood 0.0 Cells # Sodium Level 139 Potassium Level 3.9 Chloride Level 97 Carbon Dioxide Level 29 Anion Gap 13 Blood Urea Nitrogen 19 Creatinine 3.41 #H Est Glomerular Filtrat Rate mL/min Glucose Level 110 Calcium Level 8.5 Phosphorus Level 3.0 Test 12/16/18 04:59 12/16/18 08:31 Bedside Glucose 114 116 TWAN ESTEVEZ Dec 16, 2018 11:54
--- NOTE | 2018-12-16 12:30 | NUR ---
TRANSFER REPORT GIVEN TO WAITSTAFF CAPTAIN. PATIENT'S V/S STABLE. 1 UNIT PRBC GIVEN WITH NO C/O REACTION. NO MORE RECTAL BLEEDING NOTED OTHER THAN THE ONE IN THE MORNING AND DR. PATTERSON AWARE. PAWAN, PT'S SON HERE AND MSG DR. PATTERSON SO HE CAN BE UPDATED ON PT' S CONDITION. PT'S SON TOOK ALL BELONGINGS WITH HIM. WILL CALL TRANSPORTATION TO TRANSFER PATIENT TO ROOM [id number].
--- NOTE | 2018-12-16 13:52 | NUR ---
received pt from ICU.
--- NOTE | 2018-12-16 14:07 | CONS ---
Assessment/Plan Assessment/Plan Assessment/Plan (Daily) unfortunate 78 yo with what appears to be locally advanced colon ca #nearly obstructive colon ca -he has very poor performance status and multiple co-morbidities/multiple medical complications -he is intubated -surgery has seen pt and he is not an appropriate resection candidate, s/p stent -Dr Hall has discussed with son that his father's health is very tenuous and he is not a candidate for chemo now, unclear if he will ever be improved enough for oncologic tx. unfortunately patient is declining, he is intubated, starting dialysis. at this point certainly not a candidate for chemo # Hypoxic and hypercapnic respiratory failure - intubated 12/02. -failed weaning trials # Sepsis: - fungal UTI and PNA on fluconazole #anemia due to colon ca hgb 7.6 today transfuse to keep hgb >7 #CAD s/p cardiac cath, no critical obstruction #oliguric/renal failure on dialysis Patient seen in collaboration with Dr Langley Consultation Date/Type/Reason Admit Date/Time Nov 23, 2018 at 22:01 Initial Consult Date 11/24/18 Type of Consult ONCOLOGY Reason for Consultation colon cancer Requesting Provider: NAYANA GARCIA Date/Time of Note DATE: 12/16/18 TIME: 14:06 24 HR Interval Summary Free Text/Dictation no acute overnight events Subjective hx not possible: pt non-verbal Constitutional: requiring IVF, requiring O2 Exam/Review of Systems Exam Vitals Vital Signs Date Temp Pulse Resp B/P (MAP) Pulse Ox O2 O2 Flow FiO2 Time Delivery Rate 12/16/18 84 12:00 12/16/18 98.8 17 103/57 97 Mechanical 12:00 (72) Ventilator 12/16/18 30 11:00 Intake and Output 12/15/18 12/15/18 12/16/18 1515:00 23:00 07:00 IntakeIntake Total 537.5 ml 490 ml 840 ml OutputOutput Total 2515 ml 20 ml 15 ml BalanceBalance -1977.5 ml 470 ml 825 ml Constitutional: non-verbal Head: normocephalic Eyes: nl conjunctiva ENMT: nl external ears & nose Neck: supple, other (trach intcat) Respiratory: diminished breath sounds Cardiovascular: regular rate and rhythm Gastrointestinal: soft Musculoskeletal: muscle weakness, range of motion Extremities: normal pulses Neurological: confused, lethargic Skin: other Results Result Diagram: 12/16/18 0432 12/16/18 0437 Results 24hrs Laboratory Tests Test 12/15/18 16:14 12/15/18 17:53 12/15/18 20:55 12/16/18 01:12 White Blood Count 6.4 Red Blood Count 3.35 L Hemoglobin 8.1 L Hematocrit 29.0 L Mean Corpuscular 86.6 Volume Mean Corpuscular 24.2 L Hemoglobin Mean Corpuscular 27.9 L Hemoglobin Concent Red Cell 27.5 H Distribution Width Platelet Count 226 Mean Platelet Volume 10.8 H Immature 0.300 Granulocytes % Neutrophils % 70.6 Lymphocytes % 11.4 L Monocytes % 9.3 Eosinophils % 7.8 H Basophils % 0.6 Nucleated Red Blood 0.0 Cells % Immature 0.020 Granulocytes # Neutrophils # 4.5 Lymphocytes # 0.7 L Monocytes # 0.6 Eosinophils # 0.5 Basophils # 0.0 Nucleated Red Blood 0.0 Cells # Prothrombin Time 16.3 H Prothrombin Time 1.3 Ratio INR International 1.30 Normalized Ratio Activated 38.2 H Partial Thromboplast Time Fibrinogen 383.0 Bedside Glucose 83 85 113 Test 12/16/18 04:28 12/16/18 04:32 12/16/18 04:37 12/16/18 04:59 Magnesium Level 2.0 White Blood Count 7.1 Red Blood Count 3.17 L Hemoglobin 7.6 L Hematocrit 27.4 L Mean Corpuscular 86.4 Volume Mean Corpuscular 24.0 L Hemoglobin Mean Corpuscular 27.7 L Hemoglobin Concent Red Cell 27.5 H Distribution Width Platelet Count 242 Mean Platelet Volume Immature 0.300 Granulocytes % Neutrophils % 68.6 Lymphocytes % 12.5 L Monocytes % 10.5 Eosinophils % 7.7 H Basophils % 0.4 Nucleated Red Blood 0.0 Cells % Immature 0.020 Granulocytes # Neutrophils # 4.9 Lymphocytes # 0.9 Monocytes # 0.8 Eosinophils # 0.6 H Basophils # 0.0 Nucleated Red Blood 0.0 Cells # Sodium Level 139 Potassium Level 3.9 Chloride Level 97 Carbon Dioxide Level 29 Anion Gap 13 Blood Urea Nitrogen 19 Creatinine 3.41 #H Est Glomerular Filtrat Rate mL/min Glucose Level 110 Calcium Level 8.5 Phosphorus Level 3.0 Bedside Glucose 114 Test 12/16/18 08:31 12/16/18 12:31 Bedside Glucose 116 118 DORIAN MOSS Dec 16, 2018 2:07 pm
[2018-12-16] MEDS: DEXTROSE 5%-0.45% NACL 1,000 ML IV SCH (15:44)
--- NOTE | 2018-12-16 17:18 | PN ---
Date/Time of Note Date/Time of Note DATE: 12/16/18 TIME: 17:13 Assessment/Plan VTE Prophylaxis [place] [facility] [place] risk: 13 SCD applied (from [facility] [place] Yes Pharmacological prophylaxis: NA/contraindicated Pharm contraindication: bleeding Lines/Catheters IV [facility]ter [facility]from [facility] pat cath Urinary Cath still in place: Yes Reason Cath still needed: urinary retention Assessment/Plan Assessment/Plan 78-year-old male recently diagnosed with new colon mass, who presents with: # Sigmoid mass: Status post biopsy during recent hospitalization. 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 Mass is almost completely obstructive. Patient received rectal stent on December [address] Fang. -Monitor for now, Per discussion between hospitalist and Dr. Juan on 12/01, patient is not currently a surgical candidate due to his acute illness but may get surgery if he improves. -Per hematology oncology, it appears he has localized disease. Per their input, surgical resection is optimal treatment if he ever becomes stable for woods rgery. They have also stated typically radiation has no role in localized colon ca (radiation can play a role in palliative tx of met colon if painful site of metastatic disease for example). - Of note, patient has had intermitted bright red bleeding from the rectum. This is likely the tumor bleeding. I discussed with interventional radiology that embolization of a necrotic tumor is not effective because the embolized area quickly gets necrotic and just causes further bleeding. # Hypoxic and hypercapnic respiratory failure: Appears to be due to pulmonary edema and possible pneumonia - Failed BiPAP, intubated 12/02. - Not requiring IV pressors - Continue Daily weaning trials per pulmonary recommendations - Trach/PEG placed on 12/14 # Renal insufficiency: Oliguric acute on chronic renal failure. This was likely due to obstructive uropathy Being followed by renal team. Again received PermCath earlier and now on dialysis. -Continue monitor urine output, and continue dialysis per renal recommendations -Per renal team will next schedule patient for Thursday, Thursday, Thursday dialysis schedule # Sepsis: resolved. - s/p course of fluconazole for fungal UTI. # Elevated troponins: - Got cardiac cath 12/02, clear coronaries. -Continue aspirin and statin for now # Atrial fibrillation with RVR - resolved now -Continue to monitor, follow-up cardiology recommendations # Diabetes: Sugar stable, continue insulin while in-house DVT: Heparin GI: PPI Code status: Full. Family wants everything done to treat his multiorgan failure and cancer. Dispo: Patient accepted to [place], tentative plan to transfer there. Result Diagram: 12/16/18 0432 12/16/18 0437 Results 24hrs Laboratory Tests Test 12/15/18 17:53 12/15/18 20:55 12/16/18 01:12 12/16/18 04:28 Bedside Glucose 83 85 113 Magnesium Level 2.0 Test 12/16/18 04:32 12/16/18 04:37 12/16/18 04:59 12/16/18 08:31 White Blood Count 7.1 Red Blood Count 3.17 L Hemoglobin 7.6 L Hematocrit 27.4 L Mean Corpuscular 86.4 Volume Mean Corpuscular 24.0 L Hemoglobin Mean Corpuscular 27.7 L Hemoglobin Concent Red Cell 27.5 H Distribution Width Platelet Count 242 Mean Platelet Volume Immature 0.300 Granulocytes % Neutrophils % 68.6 Lymphocytes % 12.5 L Monocytes % 10.5 Eosinophils % 7.7 H Basophils % 0.4 Nucleated Red Blood 0.0 Cells % Immature 0.020 Granulocytes # Neutrophils # 4.9 Lymphocytes # 0.9 Monocytes # 0.8 Eosinophils # 0.6 H Basophils # 0.0 Nucleated Red Blood 0.0 Cells # Sodium Level 139 Potassium Level 3.9 Chloride Level 97 Carbon Dioxide Level 29 Anion Gap 13 Blood Urea Nitrogen 19 Creatinine 3.41 #H Est Glomerular Filtrat Rate mL/min Glucose Level 110 Calcium Level 8.5 Phosphorus Level 3.0 Bedside Glucose 114 116 Test 12/16/18 12:31 Bedside Glucose 118 Subjective 24 Hr Interval Summary Free Text/Dictation Patient transferred out of ICU; now on tele with trach and PEG. According to son mental status is significantly improved; he recognizes family members. Exam/Review of Systems Exam Vitals Const: Lying in bed, awake, withdraws to all stimuli. Head: Atraumatic, normocephalic Eyes: Normal Conjunctiva, pupils miotic nonreactive, normal sclera, no nystagmus ENT: Normal External Ears, dry mucous membranes. Neck: Supple. R IJ line in place. Trach in place. Resp: Mechanical breath sounds bilaterally. Cardio: Regular rate and rhythm, no murmurs, S1 S2 present Abd: Soft, non tender x 4, slight distention. Normal bowel sounds, no guarding or rebound. PEG tube in place. Ext: No cyanosis, or edema. R fem line in place. Results Results 24hrs Laboratory Tests Test 12/15/18 17:53 12/15/18 20:55 12/16/18 01:12 12/16/18 04:28 Bedside Glucose 83 85 113 Magnesium Level 2.0 Test 12/16/18 04:32 12/16/18 04:37 12/16/18 04:59 12/16/18 08:31 White Blood Count 7.1 Red Blood Count 3.17 L Hemoglobin 7.6 L Hematocrit 27.4 L Mean Corpuscular 86.4 Volume Mean Corpuscular 24.0 L Hemoglobin Mean Corpuscular 27.7 L Hemoglobin Concent Red Cell 27.5 H Distribution Width Platelet Count 242 Mean Platelet Volume Immature 0.300 Granulocytes % Neutrophils % 68.6 Lymphocytes % 12.5 L Monocytes % 10.5 Eosinophils % 7.7 H Basophils % 0.4 Nucleated Red Blood 0.0 Cells % Immature 0.020 Granulocytes # Neutrophils # 4.9 Lymphocytes # 0.9 Monocytes # 0.8 Eosinophils # 0.6 H Basophils # 0.0 Nucleated Red Blood 0.0 Cells # Sodium Level 139 Potassium Level 3.9 Chloride Level 97 Carbon Dioxide Level 29 Anion Gap 13 Blood Urea Nitrogen 19 Creatinine 3.41 #H Est Glomerular Filtrat Rate mL/min Glucose Level 110 Calcium Level 8.5 Phosphorus Level 3.0 Bedside Glucose 114 116 Test 12/16/18 12:31 Bedside Glucose 118 TWAN PATTERSON MD Dec 16, 2018 17:18
--- NOTE | 2018-12-16 19:05 | NUR ---
EOSS: pt, with trach to vent, awake, open eyes, per son pt is trying to talk, pt still with hand mittens and noted still with episode of constant movement and pulling device, Gtube feeding on going and tolerated well, not in distress, continue with curren tplan of care.
--- NOTE | 2018-12-16 19:08 | NUR ---
for HD tomorrow Dario was notified and confirmed the schedule, #[id number].
[2018-12-16] MEDS: ATORVASTATIN 20 MG TAB PO SCH (21:43)
[2018-12-16] MEDS: TAMSULOSIN (SR) 0.4 MG CAP PO SCH (21:43)
[2018-12-17] VITALS (42 sets, daily range): BP systolic 117–163; BP diastolic 65–96; PULSE 76–135; RESP 16–29
[2018-12-17] MEDS: Insulin NOVOLOG SS MILD Algorithm (NPO/TPN/ENTERAL FEEDS) SC SCH ×5 (01:00→17:00)
[2018-12-17] MEDS: ACCU-CHEK XX SCH (02:00)
[2018-12-17] MEDS ORDERED: LANSOPRAZOLE 30 MG CAP PO SCH (06:00)
--- NOTE | 2018-12-17 06:33 | NUR ---
EOSS: Pt A&O x 1, spontaneous eye opening noted; nonverbal. VSS. Trach to vent; SIMV/PS mode, Fi02 30%, rate 12. No S/S of distress. Patient had 2 moderate sized, bloody BMs. Ballard intact. Bilateral hand mittens still necessary D/T pulling at trach/PEG. Fall precautions maintained; bed alarm on. Hourly rounding performed. Pt clean and dry; all needs and concerns attended to. Patient is scheduled to have hemodialysis today. Will endorse pt to AM RN for continuity of care.
--- NOTE | 2018-12-17 07:35 | PN ---
Date/Time of Note Date/Time of Note DATE: 12/17/18 TIME: 07:33 Assessment/Plan Lines/Catheters IV Catheter Type (from [facility]): Duong cath Ballard in Place (from [facility]): Yes Assessment/Plan Chief Complaint/Hosp Course -Bilateral lower extremity atherosclerosis: It seems the patient has nonpalpable pedal pulses at the moment. The patient does not have any significa nt tissue loss or ulcerations that would require any further vascular intervention. We will plan to continue to monitor the patient's followup. The patient was on vasopressors in the past. Not much vascular option can be provided. -Renal failure: It seems the patient has developed acute on chronic kidney disease in which his renal failure has worsened requiring dialysis with significant uremia. -S/P Right femoral Duong catheter placement -Will plan to continue the patient's progression and should he need a permanent dialysis catheter and/or access creation. -Optimize vascular status (BP meds, diet, nutrition, exercise, sugar control, and antiplatelets). -Discussed findings, plan, and management with the patient's son at the bedside; he agreed to proceed understanding all that is involved. -Thank you for allowing us to partake in the care of your patient. Please call with any questions. Subjective 24 Hr Interval Summary no new vascular events overnight Exam/Review of Systems Vital Signs Vitals Vital Signs Date Temp Pulse Resp B/P (MAP) Pulse Ox O2 O2 Flow FiO2 Time Delivery Rate 12/17/18 101 16 95 30 07:15 12/17/18 99.3 138/76 06:04 (96) 12/16/18 Mechanical 18:00 Ventilator Intake and Output 12/16/18 12/16/18 12/17/18 1515:00 23:00 07:00 IntakeIntake Total 900 ml 450 ml 550 ml OutputOutput Total 0 ml 20 ml 100 ml BalanceBalance 900 ml 430 ml 450 ml Exam Free Text/Dictation GENERAL: Awake and comfortable. NECK: Supple. No carotid bruit. Trach intact CARDIOVASCULAR: S1 and S2 present, irregular. PULMONARY: Coarse breath sounds bilaterally, crackles at the bases. ABDOMEN: Soft, nontender, and nondistended. Bowel sounds positive. Truncal obesity. PEG intact RIGHT LOWER EXTREMITY: Palpable femoral pulse. Nonpalpable pedal pulse. Motor and sensory unable to ascertain as the patient is intubated. Edema of 2+. Lucero, a dry ulcer. groin catheter intact LEFT LOWER EXTREMITY: Palpable femoral pulse. Nonpalpable pedal pulse. Motor and sensory unable to ascertain as the patient is intubated and sedated. Capillary refill 3 to 4 seconds. Edema of 1 to 2+ Results Result Diagram: 12/17/18 0557 12/17/18 0557 MARY VASQUEZ MD Dec 17, 2018 07:35
[2018-12-17] MEDS: HALOPERIDOL 5 MG INJ IV PRN (09:03)
[2018-12-17] MEDS: COLLAGENASE 5 GM (UD JAR) TOP SCH (09:06)
[2018-12-17] MEDS: BALSAM PERU/CASTOR OIL 60 GM TUBE TOP SCH (09:06)
--- NOTE | 2018-12-17 09:19 | CONS ---
Assessment/Plan Assessment/Plan Assessment/Plan (Daily) 1. Oliguric SIMI on CKD with Progressive uremic Encephalopathy progressed to ESRD- started on HD during this admission on 12/08/18 2. atrial fibrillation with RVR- now rate controlled 3. acute hypoxemic and hypercapnic resp failure due to PNA -pt remained on ventilator, s/p tracheostomy and PEG tube , 4. Sepsis 5. Positive troponin 6. BPH on flomax 7. Colon CA Plan: pt did not toleate Hd today , HR went upto 128, Bp drops, only 2 hr HD done will keep pt on MWF schedule from now.- pt currently has Temporary pat HD catheter, will wait for pt to be more stable before switching it to Permacath S/p [facility] which showed moderate Nonobstructive CAD - medical management SP Colonoscopy with stent placement by GI Full code will follow up Consultation Date/Type/Reason Admit Date/Time Nov 23, 2018 at 22:01 Initial Consult Date 11/24/18 Type of Consult NEPHROLOGY Requesting Provider: NAYANA GARCIA Date/Time of Note DATE: 12/17/18 TIME: 09:19 24 HR Interval Summary Free Text/Dictation pt did not toleated HD well, HR went upto 128, Bp drops, only 2 hr HD done Exam/Review of Systems Exam Vitals Vital Signs Date Temp Pulse Resp B/P (MAP) Pulse Ox O2 O2 Flow FiO2 Time Delivery Rate 12/17/18 120 23 93 30 09:09 12/17/18 97.6 123/72 Mechanical 08:18 (89) Ventilator Trach Collar Intake and Output 12/16/18 12/16/18 12/17/18 1515:00 23:00 07:00 IntakeIntake Total 900 ml 450 ml 550 ml OutputOutput Total 0 ml 20 ml 100 ml BalanceBalance 900 ml 430 ml 450 ml PHYSICAL EXAM: Constitutional: on ventilator,s/p tracheostomy Respiratory: Bilateral coarse BS+, basilar crackles Cardiovascular: regular rate and rhythm, nl pulses Gastrointestinal: soft, non-tender, + PEG tube in place Musculoskeletal: 1-2+ pitting edema , + hess catheter , + quionton HD catheter Neurological: agitated ,restless Results Result Diagram: 12/17/18 0557 12/17/18 0557 Results 24hrs Laboratory Tests Test 12/16/18 12:31 12/16/18 17:19 12/16/18 21:45 12/17/18 01:22 Bedside Glucose 118 122 106 101 Test 12/17/18 05:11 12/17/18 05:57 12/17/18 09:03 Bedside Glucose 106 112 White Blood Count 7.7 Red Blood Count 3.43 L Hemoglobin 8.7 L Hematocrit 29.8 L Mean Corpuscular 86.9 Volume Mean Corpuscular 25.4 L Hemoglobin Mean Corpuscular 29.2 L Hemoglobin Concent Red Cell 26.0 H Distribution Width Platelet Count 250 Mean Platelet Volume Immature 0.300 Granulocytes % Neutrophils % 73.5 Lymphocytes % 8.6 L Monocytes % 9.7 Eosinophils % 7.4 H Basophils % 0.5 Nucleated Red Blood 0.0 Cells % Immature 0.020 Granulocytes # Neutrophils # 5.6 Lymphocytes # 0.7 L Monocytes # 0.7 Eosinophils # 0.6 H Basophils # 0.0 Nucleated Red Blood 0.0 Cells # Sodium Level 138 Potassium Level 3.9 Chloride Level 99 Carbon Dioxide Level 27 Anion Gap 12 Blood Urea Nitrogen 31 #H Creatinine 4.51 #H Est Glomerular Filtrat Rate mL/min Glucose Level 109 Calcium Level 8.9 Phosphorus Level 3.7 Magnesium Level 1.9 RENAN HERNANDEZ MD Dec 17, 2018 09:19
--- NOTE | 2018-12-17 09:47 | NUR ---
WOUND RE-EVALUATION FOR RIGHT INNER GLUTEAL REGION/BUTTOCK WOUND: Patient on Dialysis. Unable to turn patient to assess above wound at this time. Latest photo documentation shows improvement of wound condition. Will re-attempt later. SAL PickardN RN CWOCN
[2018-12-17] MEDS: HEPARIN 1000 UNITS/ML 10 ML INJ CATHETER SCH (10:33)
[2018-12-17] MEDS: QUETIAPINE 25 MG TAB PO SCH (11:27)
[2018-12-17] MEDS: MULTIVITAMINS THERAPEUTIC TAB PO SCH (11:27)
[2018-12-17] MEDS: LORATADINE 10 MG TAB PO SCH (11:27)
[2018-12-17] MEDS: ARIPIPRAZOLE 5 MG TAB PO SCH (11:27)
[2018-12-17] MEDS: CALCIUM/VITAMIN D (500/200) TAB PO SCH (11:28)
[2018-12-17] MEDS: ESCITALOPRAM 10 MG TAB PO SCH (11:28)
[2018-12-17] MEDS: ASPIRIN 325 MG TAB NGT SCH (11:28)
--- NOTE | 2018-12-17 12:16 | CONS ---
Consult Date/Type/Reason Admit Date/Time Nov 23, 2018 at 22:01 Initial Consult Date 11/25/18 Type of Consult Pulmonary Requesting Provider: NAYANA GARCIA Date/Time of Note DATE: 12/17/18 TIME: 12:15 Subjective Remains comfortable on SIMV no respiratory distress. Objective Vital Signs Date Temp Pulse Resp B/P (MAP) Pulse Ox O2 O2 Flow FiO2 Time Delivery Rate 12/17/18 111 26 96 30 11:15 12/17/18 97.8 157/76 Mechanical 10:00 (103) Ventilator Intake and Output 12/16/18 12/16/18 12/17/18 1515:00 23:00 07:00 IntakeIntake Total 900 ml 450 ml 550 ml OutputOutput Total 0 ml 20 ml 100 ml BalanceBalance 900 ml 430 ml 450 ml Exam GENERAL: Elderly appearing gentleman comfortable at rest no acute distress. Continues mechanical ventilation via tracheostomy VITAL SIGNS: per chart NECK: Supple. No JVD or lymphadenopathy. CARDIAC EXAM: S1, S2. No added sounds or murmurs. CHEST: clear bilaterally, No added sounds, rales or wheezes ABDOMEN: Soft, nontender. No guarding or rebound. EXTREMITIES: No cyanosis, clubbing or edema. NEUROLOGIC: Generalized weakness. No focal deficits. Vent Setting Ventilator Support Mode: PS, SIMV, VC plus Fraction of Inspired Oxygen pe: 30 Positive End Expiratory Pressu: 5.0 Results/Medications Result Diagram: 12/17/18 0557 12/17/18 0557 Results 24 hrs Laboratory Tests Test 12/16/18 12:31 12/16/18 17:19 12/16/18 21:45 12/17/18 01:22 Bedside Glucose 118 122 106 101 Test 12/17/18 05:11 12/17/18 05:57 12/17/18 09:03 12/17/18 12:05 Bedside Glucose 106 112 148 White Blood Count 7.7 Red Blood Count 3.43 L Hemoglobin 8.7 L Hematocrit 29.8 L Mean Corpuscular 86.9 Volume Mean Corpuscular 25.4 L Hemoglobin Mean Corpuscular 29.2 L Hemoglobin Concent Red Cell 26.0 H Distribution Width Platelet Count 250 Mean Platelet Volume Immature 0.300 Granulocytes % Neutrophils % 73.5 Lymphocytes % 8.6 L Monocytes % 9.7 Eosinophils % 7.4 H Basophils % 0.5 Nucleated Red Blood 0.0 Cells % Immature 0.020 Granulocytes # Neutrophils # 5.6 Lymphocytes # 0.7 L Monocytes # 0.7 Eosinophils # 0.6 H Basophils # 0.0 Nucleated Red Blood 0.0 Cells # Sodium Level 138 Potassium Level 3.9 Chloride Level 99 Carbon Dioxide Level 27 Anion Gap 12 Blood Urea Nitrogen 31 #H Creatinine 4.51 #H Est Glomerular Filtrat Rate mL/min Glucose Level 109 Calcium Level 8.9 Phosphorus Level 3.7 Magnesium Level 1.9 Medications Current Medications Acetaminophen (Tylenol Liquid) 650 mg Q6H PRN PO PAIN LEVEL 1-3 OR FEVER Last administered on 12/02/18 02:31; Admin Dose 650 MG; Start 11/23/18 at 22:30 Atorvastatin Calcium (Lipitor) 20 mg HS PO Last administered on 12/16/18 21:43; Admin Dose 20 MG; Start 11/24/18 at 21:00 Albuterol/ Ipratropium (Duoneb) 3 ml Q4H RESP THERAPY PRN HHN SHORTNESS OF BREATH; Start 11/24/18 at 09:00 Aripiprazole (Abilify) 5 mg DAILY PO Last administered on 12/17/18 11:27; Admin Dose 5 MG; Start 11/24/18 at 09:30 Escitalopram Oxalate (Lexapro) 20 mg DAILY PO Last administered on 12/17/18 11:28; Admin Dose 20 MG; Start 11/24/18 at 09:30 Loratadine (Claritin) 10 mg DAILY PO Last administered on 12/17/18 11:27; Admin Dose 10 MG; Start 11/24/18 at 10:00 Multivitamins Therapeutic (Theragran) 1 tab DAILY PO Last administered on 12/17/18 11:27; Admin Dose 1 TAB; Start 11/24/18 at 09:30 Potassium Chloride (Micro-K) 8 meq DAILY PO Last administered on 11/24/18 10:12; Admin Dose 8 MEQ; Start 11/24/18 at 10:00; Status Hold Tamsulosin HCl (Flomax) 0.4 mg HS PO Last administered on 12/16/18 21:43; Admin Dose 0.4 MG; Start 11/24/18 at 21:00 Calcium/Vitamin D (Oyster Shell/ Vit-D (500/200)) 1 tab DAILY PO Last administered on 12/17/18at 11:28; Admin Dose 1 TAB; Start 11/24/18 at 09:30 Metoprolol Tartrate (Lopressor) 5 mg Q4H PRN IV HR>110 Hold SBP<100 Last administered on 12/17/18at 11:28; Admin Dose 5 MG; Start 11/24/18 at 11:00 Diltiazem HCl (Cardizem Sr) 120 mg DAILY PO ; Start 11/25/18 at 14:00; Status Hold IV Flush (NS 10 ml) 10 ml PRN PRN IV IV PROTOCOL; Start 11/25/18 at 16:00 Diagnostic Test (Pha) (Accu-Chek) 1 ea 02 XX Last administered on 12/10/18at 01: 44; Admin Dose 1 EA; Start 12/01/18 at 02:00 Insulin Aspart (Novolog Insulin Pen) (Adult SC Insulin - Mild Algorithm)... Q4 SC Last administered on 12/17/18at 12:09; Admin Dose 1 UNIT; Start 11/30/18 at 09:00 Miscellaneous Information 1 ea NOTE XX ; Start 11/30/18 at 08:00 Glucose (Glutose) 15 gm Q15M PRN PO DECREASED GLUCOSE; Start 11/30/18 at 08:00 Glucose (Glutose) 22.5 gm Q15M PRN PO DECREASED GLUCOSE; Start 11/30/18 at 08:00 Dextrose (D50w Syringe) 50 ml Q15M PRN IV DECREASED GLUCOSE; Start 11/30/18 at 08:00 Glucagon (Glucagen) 1 mg Q15M PRN IM DECREASED GLUCOSE; Start 11/30/18 at 08:00 Glucose (Glutose) 15 gm Q15M PRN BUCCAL DECREASED GLUCOSE; Start 11/30/18 at 08:00 Al Hydrox/Mg Hydrox/Simethicone (Mag-Al Plus) 30 ml Q4H PRN PO GASTROINTESTINAL UPSET; Start 12/02/18 at 12:00 Ondansetron HCl (Zofran Inj) 4 mg Q4H PRN IV NAUSEA AND/OR VOMITING Last administered on 12/07/18at 23:27; Admin Dose 4 MG; Start 12/02/18 at 12:00 Collagenase (Santyl) 1 applic DAILY TOP Last administered on 12/17/18 09:06; Admin Dose 1 APPLIC; Start 12/03/18 at 14:00 Aspirin (Aspirin) 81 mg DAILY NGT Last administered on 12/17/18 11:28; Admin Dose 81 MG; Start 12/06/18 at 09:00 Heparin Sodium (Porcine) (Heparin (1000 Units/ml)) 4,000 unit AFTER DIALYSIS CATHETER Last administered on 12/17/18 10:33; Admin Dose 3,000 UNIT; Start 12/08/18 at 09:30 Albumin Human 100 ml @ 100 mls/hr WITH DIALYSIS PRN IV SBP less than 90 mm Hg Last administered on 12/13/18 09:36; Admin Dose 100 MLS/HR; Start 12/08/18 at 09:30 Sodium Chloride (NS) -To prime the dialy... DIRECTED FOR HD PRN IV SBP less than 90 mm Hg; Start 12/08/18 at 09:30 Mannitol 62.5 ml @ 0 mls/hr WITH DIALYSIS PRN IV WITH DIALYSIS Last administered on 12/08/18 22:03; Admin Dose 60 MLS/HR; Start 12/08/18 at 21:00 Haloperidol (Haldol) 1 mg Q6H PRN IV agitation Last administered on 12/17/18 09:03; Admin Dose 1 MG; Start 12/13/18 at 09:30 Morphine Sulfate (morphine) 2 mg Q2H PRN IV moderate to severe pain Last administered on 12/16/18 09:27; Admin Dose 2 MG; Start 12/14/18 at 05:14 Quetiapine Fumarate (Seroquel) 25 mg BID PO Last administered on 12/17/18 11:27; Admin Dose 25 MG; Start 12/15/18 at 11:00 Lansoprazole (Prevacid) 30 mg DAILY@06 PO Last administered on 12/17/18 06:15; Admin Dose 30 MG; Start 12/17/18 at 06:00 Assessment/Plan Hospital Course (Demo Recall) IMP: 1. Acute on chronic hypoxemic/hypercapnic respiratory failure--most likely due to volume overload +/- pneumonia. Right pleural effusion. Status post thoracentesis. Now status post tracheostomy placement 2. Sigmoid mass, presumed colon cancer with recent severe anemia. Status post stent placement 3. Non-ST elevation myocardial infarction. Status post cardiac cath with no target lesions identified. 4. Atrial fibrillation with rapid ventricular response, now rate controlled 5. Acute renal failure likely contrast nephropathy remains dialysis dependent 6. Anemia RECS: 1. Continue SIMV weaning 2. HD/UF as per Renal 3. Tube feeding as tolerated 4. Continue Seroquel for agitation [place] J[facility] Agudelo MD[facility] Dec 17, 2018 12:16
--- NOTE | 2018-12-17 12:27 | NUR ---
PT RE-EVALUATION , RN CLEARED , PATIENT ALERT , AWAKE , ABLE TO FOLLOW ONE SIMPLE COMMAND IN ENGLISCH , FRISIAN AND DUTCH , FAMILY AT BED SIDE , AND RESPOND TO YES AND NO QUESTION. . PATIENT IS A 78 Y/O MALE WITH PMH: DM , A-FIB , SIGMOID MASS ( S/P BIOPSY) OBSTRUCTIVE UROPATHY, ORIGINALLY ADMITTED TO [facility] DUE TO SOB , BUT DUE TO RESPIRATORY FAILURE AND HYPOXIA , RENAL INSUFFICIENCY ( ON HD), TRANSFERRED TO ICU AND ON 12/14/18 UNDERWENT TRACHEOSTOMY WITH PEG PLACEMENT NOW IS IN TELE-UNIT TRACH ON VENT .PATIENT FOUND IN BED ABLE IN SUPINE POSITION ABLE TO PARTICIPATE IN AA/ROM BLE'S INCLUDING : AP, KNEE FLEX, EXT, ADD, ABD , SAQ , PATIENT OCC.AGITATED AND RESTLESS , WANTS TO PULL HIS IV AND OTHER TUBS , BUT PATIENT PLACED ON SOFT STRAINED , VS STABLE ,TOLERATED TREATMENT WELL . A: PATIENT LIVES WITH FAMILY IN A HOUSE , PT RECOMMEND SUB ACUTE / [facility] PLACEMENT ONCE CLEARED BY MD . P: PT DAILY X5 ( BED MOBILITY TR, THERA EXE'S BLE'S , ROM EXE'S BLE'S , RE-ASSESS FOR SITTING , STANDING WHEN ABLE , ALSO RE-ASSESS FOT PRE-GAIT TR/GAIT TR W/FWW WHEN /IF ABLE , PATIENT EDUCATION , TRAINING .
--- NOTE | 2018-12-17 13:37 | CONS ---
Assessment/Plan Assessment/Plan Assessment/Plan (Daily) 1. Non-ST elevation myocardial infarction, currently down trending cardiac enzymes likely a type 2 demand infarct in the setting of fevers, hypercarbic respiratory failure.-downtrended cardiac enzymes. NO cp. Echo this admit 11/24 with NL EF 55%. Now s/p LHC 12/02 with no sig major epicardial obstructive cad. LVEDP 21 - No CP - no intervention currently planned - no further cardiac intervention planned. 2. Abnormal electrocardiogram- r/o MT. 3. Right bundle branch block - stable by tele. Occasional tachy with agitation - today had tachycardia with HD - better now. 4. Colonic mass s/p stent placement - GI follows. NO surgery planned. 5. Anemia. 6. Renal failure-worsening- HD to keep euvolemic. Rx as needed. 7. Leukocytosis/ Sepsi- BP better with anti_bx. 8. Atrial fibrillation-now in SR- con't rate control. Pt with some pauses - very poor overall prognosis - will favor conservative Rx vs pacer. 9. .CHF-diastolic acute on chronic - remove fluid with HD 10. Resp failure s/p intubation - pt agitated - not weaning - resp follows. Consultation Date/Type/Reason Admit Date/Time Nov 23, 2018 at 22:01 Initial Consult Date 11/25/18 Requesting Provider: NAYANA GARCIA Date/Time of Note DATE: 12/17/18 TIME: 13:33 24 HR Interval Summary Free Text/Dictation Pt with some pauses - very poor overall prognosis - will favor conservative Rx vs pacer. Per nurse: no fevers/chills chronic SOB - tachy with HD Exam/Review of Systems Exam Vitals Vital Signs Date Temp Pulse Resp B/P (MAP) Pulse Ox O2 O2 Flow FiO2 Time Delivery Rate 12/17/18 75 17 96 30 13:05 12/17/18 97.8 157/76 Mechanical 10:00 (103) Ventilator Intake and Output 12/16/18 12/16/18 12/17/18 1515:00 23:00 07:00 IntakeIntake Total 900 ml 450 ml 550 ml OutputOutput Total 0 ml 20 ml 100 ml BalanceBalance 900 ml 430 ml 450 ml Additional Comments General: WN/WD/NAD, AOx 3 HEENT: Unicetric/atraumatic/EOMI - trach NECK: JVD elevated, no thyromegaly Lymph: no lymphadenopathy HEART: regular with no S3, II/ systolic murmur at apex - LUNGS: Coarse sounds ABD: soft, NT, ND, +BS : Intact Neuro: non focal SKIN: chronic changes EXT: trace edema Results Result Diagram: 12/17/18 0557 12/17/18 0557 Results 24hrs Laboratory Tests Test 12/16/18 17:19 12/16/18 21:45 12/17/18 01:22 12/17/18 05:11 Bedside Glucose 122 106 101 106 Test 12/17/18 05:57 12/17/18 09:03 12/17/18 12:05 White Blood Count 7.7 Red Blood Count 3.43 L Hemoglobin 8.7 L Hematocrit 29.8 L Mean Corpuscular 86.9 Volume Mean Corpuscular 25.4 L Hemoglobin Mean Corpuscular 29.2 L Hemoglobin Concent Red Cell 26.0 H Distribution Width Platelet Count 250 Mean Platelet Volume Immature 0.300 Granulocytes % Neutrophils % 73.5 Lymphocytes % 8.6 L Monocytes % 9.7 Eosinophils % 7.4 H Basophils % 0.5 Nucleated Red Blood 0.0 Cells % Immature 0.020 Granulocytes # Neutrophils # 5.6 Lymphocytes # 0.7 L Monocytes # 0.7 Eosinophils # 0.6 H Basophils # 0.0 Nucleated Red Blood 0.0 Cells # Sodium Level 138 Potassium Level 3.9 Chloride Level 99 Carbon Dioxide Level 27 Anion Gap 12 Blood Urea Nitrogen 31 #H Creatinine 4.51 #H Est Glomerular Filtrat Rate mL/min Glucose Level 109 Calcium Level 8.9 Phosphorus Level 3.7 Magnesium Level 1.9 Bedside Glucose 112 148 SCARLET HARDWICK MD Dec 17, 2018 13:36
--- NOTE | 2018-12-17 15:23 | NUR ---
WOUND CARE RE-EVALUATION FOR RIGHT INNER BUTTOCK WOUND: 78 year old male admitted with hypoxia and hypercapnic respiratory failure possible 2/2 to pneumonia and fluid overload per record. History of sigmoid mass and diabetes. Trach to vent. G-tube to feeding. Ballard cath. Incontinent of bowel. Max assist to turn. On low air loss surface. Dietitian on case. Generalized edema. ASSESSMENT/RECOMMENDATIONS: - Right inner gluteal region/buttock linear healing full thickness wound. Wound measured 6.5cmx0.6cmx<0.1cm. Unable to directly palpate bone to injury area. Modified treatment recommendation as follow: Cleanse with normal saline. Pat dry. Apply 3M Cavilon no-sting skin barrier to periwound skin. Apply Venelex ointment to wound bed Bid. Then, Apply barrier cream (Calazime) to perwiound area. - Float heels off bed with HeelZup Clark or at least 2 pillows. - Bilateral heels and Bilateral ankles: Cover with Allevyn Heels for protection. Assess skin under dressing each shift. - Continue low air loss surface. - Reposition every 2 hours. Assessed patient with RNGonzalo and discussed plan of care with RN. RN to obtain wound care recommendations from . [place], BSN RN CWOCN
--- NOTE | 2018-12-17 17:06 | NUR ---
Son Ang notified that there is an discharge order to [facility]. He said okay
--- NOTE | 2018-12-17 17:54 | DS ---
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 Patient Condition: Guarded Consults Gastroenterology Dr. Fang General Surgery Dr. Juan Pulmonary and critical care Dr. Skinner Cardiology Dr. Ferro Oncology Dr. Hall Procedures 12/01: Endotracheal intubation. 12/02: Left heart cath by Dr. Ferro 12/03: Sigmoid stent placement by Dr. Fang 12/14: Trach placement by Dr. Helton 12/14: PEG placement via EGD by Dr. Fang Hx of Present Illness This is a 78-year-old male with a history of diabetes, atrial fibrillation, sigmoid mass, obstructive uropathy who was brought to ER for shortness of breath and lethargy. Patient was just discharged from here yesterday. During the recent hospitalization, he had a biopsy of the sigmoid mass, pathology is still pending. He was also found to be in volume overload with anasarca and lower extremity edema. His creatinine was around 1.8. Patient now brought back because of severe shortness of breath and lethargy. He still has lower extremity edema. Chest x-ray shows bilateral patchy opacity. When he presented, he was febrile with a temperature of 101.7, heart rate as high as almost 120. Initial O2 sat 74. VBG shows a pH of 7.25, PCO2 73, PO2 42, bicarb 32. He has been placed on BiPAP. Initial troponin [address] elevation or depression. Hospital Course The patient was relatively stable on the med/surg floor until he developed obstructive uropathy and worsening SIMI. A Ballard catheter was placed with significant urine output, however kidney function continued to worsen. He was transferred to the ICU on BiPAP with pulmonary edema and respiratory failure. Around 12/01 the patient eventually developed worsening respiratory failure on CPAP and required intubation. On 12/02 Left heart cath by Dr. Ferro showed clean coronaries. On 12/03 Dr. Fang placed a sigmoid stent across the tumor to prevent obstruction. On 12/08 the patient's renal failure worsened to the extent that he now requires dialysis. The patient remained intubated, failing daily CPAP weaning trials. On 12/14 family decided on trach placement which was done by Dr. Helton and PEG placement via EGD by Dr. Fang. On 12/15 the patient was transferred upstairs to telemetry out of the ICU. He remained stable, able to open eyes and interact with family. On 12/17 decision was made to transfer to [place]. Home Meds Active Scripts Pantoprazole (Protonix) 40 Mg Tabec, 40 MG PO BID, #60 TAB 1 Refill Prov:NAYANA GARCIA S. 11/22/18 Reported Medications Calcium Citrate/Vitamin D (Citracal-Vitamin D 200 MG-250) 1 Each Tablet, 1 EACH PO BID, TAB 11/19/18 Ibuprofen* (Ibuprofen*) 600 Mg Tablet, 600 MG PO Q6H PRN for PAIN LEVEL 1-5, TAB 11/19/18 Hydralazine Hcl* (Hydralazine Hcl*) 50 Mg Tablet, 50 MG PO Q6H, #60 TAB 11/19/18 Metformin* (Glucophage*) 500 Mg Tab, 500 MG PO WITH BREAKFAST, #30 TAB 11/19/18 Multivitamins* (Theragran*) 1 Tab Tab, 1 TAB PO DAILY, TAB 11/19/18 Aripiprazole* (Abilify*) 5 Mg Tab, 5 MG PO DAILY, #30 TAB 11/19/18 Diltiazem Hcl* (Cardizem SR*) 120 Mg Cap.sr.12h, 120 MG PO Q12, CAP 11/19/18 Pioglitazone Hcl* (Pioglitazone Hcl*) 30 Mg Tablet, 30 MG PO DAILY, TAB 11/19/18 Escitalopram Oxalate* (Escitalopram Oxalate*) 20 Mg Tablet, 20 MG PO DAILY, #30 TAB 11/19/18 Benazepril Hcl* (Benazepril Hcl*) 20 Mg Tablet, 20 MG PO DAILY, #30 TAB 11/19/18 Tamsulosin Hcl* (Tamsulosin Hcl*) 0.4 Mg Cap.er.24h, 0.4 MG PO HS, CAP 11/19/18 Aspirin Ec (Aspir 81) 81 Mg Tablet.dr, 81 MG PO DAILY, #30 TAB 11/19/18 Loratadine* (Loratadine*) 10 Mg Tablet, 10 MG PO DAILY, #30 TAB 11/19/18 Potassium Chloride* (Potassium Chloride*) 8 Meq Capsule.er, 8 MEQ PO DAILY, CAP 11/19/18 Furosemide* (Furosemide*) 80 Mg Tablet, 80 MG PO DAILY, #30 TAB 11/19/18 Atenolol* (Atenolol*) 50 Mg Tablet, 50 MG PO DAILY, #30 TAB 11/19/18 Digoxin* (Lanoxin*) 0.25 Mg Tablet, 0.25 MG PO DAILY, TAB 11/19/18 Primary Care Provider Not On Staff Doctor Time spent on discharge: > 30 minutes Pending Labs Laboratory Tests Test 12/16/18 21:45 12/17/18 01:22 12/17/18 05:11 12/17/18 05:57 Bedside 106 101 106 Glucose mg/dL (70-220) mg/dL (70-220) mg/dL (70-220) White Blood 7.7 Count 10^3/ul (4.8-1 0.8) Red Blood 3.43 Count 10^6/ul (4.70- 6.10) Hemoglobin 8.7 g/dl (14.0-18. 0) Hematocrit 29.8 % (42.0-52.0) Mean 86.9 Corpuscular fl (82.0-101.0 Volume ) Mean 25.4 Corpuscular pg (29.0-33.0) Hemoglobin Mean 29.2 Corpuscular g/dl (32.0-37. Hemoglobin Conc 0) ent Red Cell 26.0 Distribution % (11.5-14.5) Width Platelet Count 250 10^3/UL (140-4 15) Mean Platelet fl (7.4-10.4) Volume Immature 0.300 Granulocytes % % (0.001-0.429 ) Neutrophils % 73.5 % (39.0-77.0) Lymphocytes % 8.6 % (15.0-51.0) Monocytes % 9.7 % (0.0-11.0) Eosinophils % 7.4 % (0.0-7.0) Basophils % 0.5 % (0.0-2.0) Nucleated Red 0.0 Blood Cells % /100WBC (0.0-0 .0) Immature 0.020 Granulocytes # 10^3/ul (0.0-0 .031) Neutrophils # 5.6 10^3/ul (1.6-7 .5) Lymphocytes # 0.7 10^3/ul (0.8-2 .9) Monocytes # 0.7 10^3/ul (0.3-0 .9) Eosinophils # 0.6 10^3/ul (0.0-0 .5) Basophils # 0.0 10^3/ul (0.0-0 .1) Nucleated Red 0.0 Blood Cells # 10^3/ul (0.0-0 .0) Sodium Level 138 mmol/L (135-14 4) Potassium 3.9 Level mmol/L (3.5-5. 1) Chloride Level 99 mmol/L (97-110 ) Carbon Dioxide 27 Level mmol/L (21-31) Anion Gap 12 (5-13) Blood Urea 31 Nitrogen mg/dl (7-20) Creatinine 4.51 mg/dl (0.61-1. 24) Est Glomerular mL/min (>60) Filtrat Rate mL/min Glucose Level 109 mg/dl (70-220) Calcium Level 8.9 mg/dl (8.4-10. 2) Phosphorus 3.7 Level mg/dl (2.5-4.9 ) Magnesium 1.9 Level mg/dl (1.7-2.5 ) Test 12/17/18 09:03 12/17/18 12:05 12/17/18 17:35 Bedside 112 148 121 Glucose mg/dL (70-220) mg/dL (70-220) mg/dL (70-220) TWAN PATTERSON MD Dec 17, 2018 17:52
--- NOTE | 2018-12-17 18:27 | NUR ---
EOSS Patient is alert, x1. On mechanical vent settings well tolerated. GT feeding also well tolerated. No nausea , vomiting noted. Repositioned Q2H. Skin assessment done. Wound care done. Family at bedside. Patient had blood stool in the morning. Currently, Light yellow soft stool. Dr. Nolen notified that he is having frequent bowel movements every time we turned him and stool smells foul order. He gave NNO. Patient is soon to be transferred to [facility], Report given to LEYLA Garrett. Will transfer once RT is available.
--- NOTE | 2018-12-17 20:45 | NUR ---
Patient D/C to [facility] Patient discharged to [facility] room #2354G via bed. Report given during AM shift. Pt A&O x 1, spontaneous eye opening noted; nonverbal. VSS. Trach to vent; SIMV/PS mode, Fi02 30%, rate 12. No S/S of distress. Ballard intact. Bilateral hand mittens still necessary D/T pulling at trach/PEG. HD performed today, 1L removed. All belongings and paperwork taken with patient and son, Ang.
== END 2018-12-17 20:54 | DRG 4 ==
LOC: E/R 19:22 → ICU 22:01 → 6WM 11-26 13:07 → ICU 11-28 13:48 → TEL 12-08 21:32 → 6WM 12-08 21:35 → ICU 12-08 21:39 → TEL 12-16 13:48
PROVIDERS: ADMIT Internal Medicine; ATTEND Internal Medicine
PROC: 0T9B70Z Drainage of Bladder with Drainage Device, Via Natural or Artificial Opening (ICD-10-PCS; 2018-11-24)
PROC: 02HV33Z Insertion of Infusion Device into Superior Vena Cava, Percutaneous Approach (ICD-10-PCS; 2018-11-25)
PROC: 5A1955Z Respiratory Ventilation, Greater than 96 Consecutive Hours (ICD-10-PCS; 2018-12-02)
PROC: 0BH17EZ Insertion of Endotracheal Airway into Trachea, Via Natural or Artificial Opening (ICD-10-PCS; 2018-12-02)
PROC: 4A023N7 Measurement of Cardiac Sampling and Pressure, Left Heart, Percutaneous Approach (ICD-10-PCS; 2018-12-02)
PROC: B211YZZ Fluoroscopy of Multiple Coronary Arteries using Other Contrast (ICD-10-PCS; 2018-12-02)
PROC: 0W993ZZ Drainage of Right Pleural Cavity, Percutaneous Approach (ICD-10-PCS; 2018-12-02)
PROC: 0D7N8DZ Dilation of Sigmoid Colon with Intraluminal Device, Via Natural or Artificial Opening Endoscopic (ICD-10-PCS; 2018-12-03)
PROC: 05HM33Z Insertion of Infusion Device into Right Internal Jugular Vein, Percutaneous Approach (ICD-10-PCS; 2018-12-03)
PROC: 06HY33Z Insertion of Infusion Device into Lower Vein, Percutaneous Approach (ICD-10-PCS; 2018-12-08)
PROC: 5A1D70Z Performance of Urinary Filtration, Intermittent, Less than 6 Hours Per Day (ICD-10-PCS; 2018-12-08)
PROC: 0DH63UZ Insertion of Feeding Device into Stomach, Percutaneous Approach (ICD-10-PCS; 2018-12-14)
PROC: 3E0G76Z Introduction of Nutritional Substance into Upper GI, Via Natural or Artificial Opening (ICD-10-PCS; 2018-12-14)
PROC: 0B110F4 Bypass Trachea to Cutaneous with Tracheostomy Device, Open Approach (ICD-10-PCS; principal; 2018-12-14 16:30)
PROC: 30233N1 Transfusion of Nonautologous Red Blood Cells into Peripheral Vein, Percutaneous Approach (ICD-10-PCS; 2018-12-15)
DX: A41.9 Sepsis, unspecified organism (principal); J18.9 Pneumonia, unspecified organism; J96.02 Acute respiratory failure with hypercapnia; J96.01 Acute respiratory failure with hypoxia; I50.33 Acute on chronic diastolic (congestive) heart failure; N17.0 Acute kidney failure with tubular necrosis; I21.A1 Myocardial infarction type 2; G93.41 Metabolic encephalopathy; N18.6 End stage renal disease; C18.7 Malignant neoplasm of sigmoid colon; D68.9 Coagulation defect, unspecified; N13.8 Other obstructive and reflux uropathy; I13.2 Hypertensive heart and chronic kidney disease with heart failure and with stage 5 chronic kidney disease, or end stage renal disease; E87.0 Hyperosmolality and hypernatremia; B37.49 Other urogenital candidiasis; R65.20 Severe sepsis without septic shock; D63.0 Anemia in neoplastic disease; E11.22 Type 2 diabetes mellitus with diabetic chronic kidney disease; N18.9 Chronic kidney disease, unspecified; I48.91 Unspecified atrial fibrillation; I45.10 Unspecified right bundle-branch block; N40.0 Benign prostatic hyperplasia without lower urinary tract symptoms; N47.1 Phimosis; R13.10 Dysphagia, unspecified; Z99.2 Dependence on renal dialysis; Z79.82 Long term (current) use of aspirin
CPT/HCPCS: 31500; 32555; 36415; 36430; 36569; 36600; 71045; 74018; 76937; 80048; 80053; 80076; 80162; 81001; 82140; 82550; 82553; 82803; 82945; 82962; 83540; 83605; 83615; 83735; 83880; 84100; 84157; 84484; 85025; 85384; 85610; 85730; 86644; 86850; 86900; 86901; 86920; 87040; 87070; 87081; 87086; 87102; 87116; 87340; 88104; 88107; 88305; 89051; 90935; 92610; 93005; 93308; 93458; 94002; 94003; 94644; 94660; 94667; 94668; 94770; 96374; 96375; 97110; 97162; 97164; 97530; C1751; C1887; C9113; J0282; J0690; J0692; J0696; J1630; J1644; J1650; J1815; J1940; J1956; J2001; J2060; J2150; J2250; J2270; J2370; J2405; J2916; J2930; J3010; J3475; J3480; J7030; J7040; J7042; J7060; J7070; P9016; P9047; Q9967

== ENCOUNTER 2019-01-19 00:45 | Inpatient (IN) | payer MEDICARE, OTHER ==
[~2019-01-19] VITALS: Ht 175.3 cm; Wt 81.5 kg
[2019-01-19] MEDS ORDERED: SEVOFLURANE 15 MIN ONE (07:00)
--- NOTE | 2019-01-19 17:35 | PREAC ---
Date/Time of Note Date/Time of Note DATE: 01/19/19 TIME: 17:34 Anesthesia Eval and Record Evaluation Time Pre-Procedure Interview DATE: 01/19/19 TIME: 17:34 Age 78 Sex male NPO: 8 hrs Preoperative diagnosis sigmoid mass Planned procedure laparoscopic vs. open left colon resection Past Medical History Past Medical History: Includes Cardio: HTN, Dyslipidemia, CAD, Arrythmia (atrial fibrillation) Endo: Diabetes Pulm: Other (pneumonia, respiratory failure s/p intubation then trach ) Neuro: Other (encephalopathy) Renal: BPH Heme: Anemia Surgery & Anesthesia Issues No known issue Meds Anticoagulation: No Beta Vivian within 24 hr: Yes Reason Beta Vivian not given: Bradycarida, Hypotension Active Scripts Pantoprazole (Protonix) 40 Mg Tabec, 40 MG PO BID, #60 TAB 1 Refill Prov:JOSENAYANA S. 11/22/18 Reported Medications Calcium Citrate/Vitamin D (Citracal-Vitamin D 200 MG-250) 1 Each Tablet, 1 EACH PO BID, TAB 11/19/18 Ibuprofen* (Ibuprofen*) 600 Mg Tablet, 600 MG PO Q6H PRN for PAIN LEVEL 1-5, TAB 11/19/18 Hydralazine Hcl* (Hydralazine Hcl*) 50 Mg Tablet, 50 MG PO Q6H, #60 TAB 11/19/18 Metformin* (Glucophage*) 500 Mg Tab, 500 MG PO WITH BREAKFAST, #30 TAB 11/19/18 Multivitamins* (Theragran*) 1 Tab Tab, 1 TAB PO DAILY, TAB 11/19/18 Aripiprazole* (Abilify*) 5 Mg Tab, 5 MG PO DAILY, #30 TAB 11/19/18 Diltiazem Hcl* (Cardizem SR*) 120 Mg Cap.sr.12h, 120 MG PO Q12, CAP 11/19/18 Pioglitazone Hcl* (Pioglitazone Hcl*) 30 Mg Tablet, 30 MG PO DAILY, TAB 11/19/18 Escitalopram Oxalate* (Escitalopram Oxalate*) 20 Mg Tablet, 20 MG PO DAILY, #30 TAB 11/19/18 Benazepril Hcl* (Benazepril Hcl*) 20 Mg Tablet, 20 MG PO DAILY, #30 TAB 11/19/18 Tamsulosin Hcl* (Tamsulosin Hcl*) 0.4 Mg Cap.er.24h, 0.4 MG PO HS, CAP 11/19/18 Aspirin Ec (Aspir 81) 81 Mg Tablet.dr, 81 MG PO DAILY, #30 TAB 11/19/18 Loratadine* (Loratadine*) 10 Mg Tablet, 10 MG PO DAILY, #30 TAB 11/19/18 Potassium Chloride* (Potassium Chloride*) 8 Meq Capsule.er, 8 MEQ PO DAILY, CAP 11/19/18 Furosemide* (Furosemide*) 80 Mg Tablet, 80 MG PO DAILY, #30 TAB 11/19/18 Atenolol* (Atenolol*) 50 Mg Tablet, 50 MG PO DAILY, #30 TAB 11/19/18 Digoxin* (Lanoxin*) 0.25 Mg Tablet, 0.25 MG PO DAILY, TAB 11/19/18 Meds reviewed: Yes Allergies Coded Allergies: No Known Allergy (Unverified , 11/23/18) Allergies Reviewed: Yes Labs/Studies Labs Reviewed: Reviewed by anesthesiologist test: N/A Pre-procedure Exam Airway: Adequate mouth opening, Adequate thyromental dist Mallampati: Mallampati II (trach) Teeth: Normal Lung: Normal Heart: Normal ASA Physical Status ASA physical status: 3 Emergency: None Planned Anesthetic General/MAC: Other (trach) Planned Pain Management Parenteral pain med Pre-operative Attestations Prior to commencing anesthesia and surgery, the patient was re-evaluated, there was verification of: *The patient's identity *The results of appropriate recent lab work and preoperative vital signs *The above evaluation not changing prior to induction *Anesthetic plan, risk benefits, alternative and complications discussed with patient/family; questions answered; patient/family understands, accepts and wishes to proceed. ANDREA DIAS MD Jan 19, 2019 17:35
[2019-01-19] MEDS ORDERED: LIDOCAINE 1% (MPF) 30 ML INJ ONE ×2 (18:02→18:23)
[2019-01-19] MEDS ORDERED: BUPIVACAINE 0.5%/EPI (SDV) 30 ML INJ ONE (18:02)
[2019-01-19] MEDS ORDERED: PHENYLephrine (100 MCG/ML) 5ML SYG ONE (19:09)
[2019-01-19] MEDS ORDERED: ROCURONIUM 50 MG INJ ONE ×3 (19:53→22:34)
[2019-01-19] MEDS ORDERED: metroNIDAZOLE 500 MG/NS (PMX) 100 ML IVPB ONE (19:53)
[2019-01-19] MEDS ORDERED: CEFAZOLIN 1 GM INJ ONE (19:53)
[2019-01-19] MEDS ORDERED: LIDOCAINE 1% (MPF) 30 ML INJ INJ ONE (20:05)
[2019-01-19] MEDS ORDERED: BUPIVACAINE 0.5%/EPI (SDV) 10 ML INJ INJ ONE (20:06)
[2019-01-19] MEDS ORDERED: ONDANSETRON 4 MG INJ ONE (20:13)
[2019-01-19] MEDS ORDERED: ONDANSETRON 4 MG INJ IV PRN ×2 (20:30→23:30)
[2019-01-19] MEDS ORDERED: morphine 2 MG INJ IV PRN (20:30)
[2019-01-19] MEDS ORDERED: NACL 0.9% 3 ML SYG IV SCH (20:30)
[2019-01-19] MEDS ORDERED: metroNIDAZOLE 500 MG/NS (PMX) 100 ML IVPB SCH (20:30)
[2019-01-19] MEDS ORDERED: OXYCODONE/ACETAMINOPHEN (5/325) TAB GTB PRN (20:30)
[2019-01-19] MEDS ORDERED: ALBUMIN HUMAN 5% 250 ML ONE ×2 (20:41→21:34)
[2019-01-19] MEDS ORDERED: SUGAMMADEX SODIUM 200 MG/2 ML VIAL IV ONE ×2 (23:13→23:20)
[2019-01-19] MEDS ORDERED: HYDROmorphONE 2 MG/ML SYG ONE (23:16)
[2019-01-19] MEDS ORDERED: HYDROmorphONE 0.5 MG/0.5 ML SYG IV PRN ×2 (23:30)
[2019-01-19] MEDS ORDERED: DIPHENHYDRAMINE 50 MG INJ IV PRN (23:30)
[2019-01-19] MEDS ORDERED: MEPERIDINE 25 MG INJ IV PRN (23:30)
[2019-01-19] MEDS ORDERED: LABETALOL HCL 20MG INJ IV PRN (23:30)
[2019-01-19] MEDS ORDERED: hydrALAzine 20 MG INJ IV PRN (23:30)
[2019-01-19] MEDS ORDERED: EPHEDrine SULFATE 50 MG/5 ML SYG IV PRN (23:30)
[2019-01-19] MEDS ORDERED: FENTAnyl 50 MCG/ML VIAL IV PRN (23:30)
[2019-01-20] VITALS (58 sets, daily range): BP systolic 76–151; BP diastolic 37–69; PULSE 65–132; RESP 16–31; Ht 175.3 cm; Wt 81.5 kg
--- NOTE | 2019-01-20 00:01 | PAC ---
Date/Time of Note Date/Time of Note DATE: 01/20/19 TIME: 00:01 Post-Anesthesia Notes Post-Anesthesia Note Activity: WNL Respiratory function: WNL Cardiovascular function: WNL Mental status: Baseline (confused at baseline) Pain reasonably controlled: Yes Hydration appropriate: Yes Nausea/Vomiting absent: Yes Comments BP: 131/65 HR: 99 RR: 15 T: 98 SaO2: 97% ANDREA DIAS MD Jan 20, 2019 00:01
--- NOTE | 2019-01-20 00:08 | OPR ---
Date/Time of Note Date/Time of Note DATE: 01/19/19 TIME: 23:44 Operative Report Free Text/Dictation Preoperative Diagnosis 1. 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 Multiple medical problems with at least moderate to high risk category 3. Continued colorectal bleed with anemia Postoperative Diagnosis 1. 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 Adhesions to anterior abdominal wall inferiorly and to the posterior bladder. Adhesions to small bowel and appendix. Adhesions to the colon. Fullness of retroperi toneum and upper pelvis. 2. Multiple medical problems with at least moderate to high risk category 3. Continued colorectal bleed with anemia Operation/Procedure Performed 1. Laparoscopic converted to open low anterior resection with end colostomy 2. Splenic mobilization 3. Laparoscopic appendectomy 4. Rigid sigmoidoscopy 5. Implantation of biologic 6. Difficult operation, modifier 22 Surgeon: Nimo Rose MD Tax Preparer: Sasha Sparks NP Anesthesia Type: general + local + regional Anesthesiologist: Serenity Ryan MD Estimated Blood Loss: 400 ml's Transfusion: 2u prbc + 500ml of 5% albumin + 3.5L XL Specimen: 1. Colon with stent distal 2. Further proximal colon Grafts/Implants: [Xenograft 7 x 10 cm, 3 layer] Tubes/Drains: 19 Czech Adebayo Complications: none Pt Condition Post Procedure: Fair Disposition: ICU Indications 78-year-old male with obstructing rectal-sigmoid adenocarcinoma. Who had multiple complications on his admission to [facility] previously and previous surgeon decided not to proceed with surgery. He was transferred to [facility] and clinically improved. Patient was cleared to proceed with surgery from all medical team members knowing that he is at higher risk category however not able to optimize him further. Long discussion was had with patient's family members mainly the son and all risks including but not limited to bleeding infection abscess seroma hematoma damage to bowel ischemia damage to bladder damage to ureters damage to any other organ inside recurrence hernia chronic pain chronic diarrhea fistulas abscess need for further surgeries or procedures heart attack stroke PE DVT pneumonia organ failures of . The understand the high risks and want to proceed with surgery. Procedure Description: Patient was brought into the operating room, placed supine on the operating table, SCDs were placed, right arm was tucked, all pressure points were well- padded, preoperative antibiotics administered, and after induction of anesthesia, patient was placed in the lithotomy. Ballard was inserted. Patient was then prepped and draped in usual sterile fashion, and timeout was performed. Rigid sigmoidoscopy was performed and identified the mass and the stent. Incision was made in the right upper quadrant, and using an Optiview port and 5 mm 0 scope abdomen was safely entered and insufflated to 15 mmHg with CO2. Laparoscopy was performed and no injuries were identified. Mass identified in the sigmoid colon and upper rectum which was stuck to the bladder, abdominal wall, colon, small bowel, appendix. Under direct visualization another 5 mm port was placed in the right lower quadrant another 5 mm port was placed in the right lower lateral quadrant. Patient was placed in Trendelenburg and left side up. I spent a large amount of time trying to identify the structures and separate the structures however due to the significant scarring and adhesions between the intestines and abdominal wall and bladder and the mass decision was made to proceed in an open fashion. Midline celiotomy was created and the abdomen was entered safely. Throughout the procedure patient had significant oozing from all the raw surfaces which were eventually controlled by the end of the operation. Appendix small bowel and colon were shaved off of the mass that was stuck to the abdominal wall. Intraoperative consultation was obtained from urology and they recommended shaving it off of the posterior bladder. I was able to gently mobilized the mass off of the bowel appendix and the posterior bladder and ab dominal wall. Care was taken not to injure these structures. This dissection was meticulous difficult and tedious. At this point the peritoneum was opened on both sides of the mesentery of the sigmoid and the rectum and using LigaSure and scissor colon was mobilized off of the left lateral wall in the avascular plane fully mobilizing the left colon, the sigmoid and the upper rectum. The medial mesentery was opened and the left colon, sigmoid and the upper rectum beyond the peritoneal reflection going beyond the mass in the avascular plane posteriorly with total mesorectal excision as possible. This area had significant fullness and scarring and probable tumor infiltration. At least 5 cm of colon proximal and distal to the mass were marked. The mesentery was sequentially taken using LigaSure with complete hemostasis. The colon 5 cm proximal to the mass was transected with CARLEEN 75 mm blue stapler. The ureters bilaterally were fully identified and preserved throughout the operation. I was able to go distal to the mass and the stent and transect the rectum using a TA 60 blue. A larger TA was needed and a thicker TA however was not available. After transection unfortunately the gina did not hold and opened up. The rectal stump had to be closed with 2-0 Vicryl in canal fashion followed by 2-0 silk second layer closure. Oozing around this area was controlled with FloSeal. To prevent adhesions of bowel into the pelvis 7 x 10cm 3 layer a cell was applied to cover this area. 19 Czech Adebayo drain was also placed through the right lower quadrant 5 mm port into the pelvis and left gutter. This was secured with 2-0 nylon. The appendix was abnormal and was initially stuck to the tumor. Decision was made to transect and removed the appendix. The base was transected with CARLEEN blue load stapler. The mesoappendix was taken with LigaSure. This was also sent to pathology. Mobilized the left colon to provide the colostomy since there was unhealthy rectal stump identified the distal tip of the left colon being ischemic. At this point splenic flexure was mobilized to provide longer segment of colon. Incision was made in left abdomen through the rectus for colostomy site. The distal colon was exteriorized and an area of pink colon was transected and further proximal colon was sent to pathology. The colostomy was matured with placing 2-0 silk sutures internally from colon to the abdominal wall followed by 2-0 silk sutures to ian the colon tip followed by 2-0 silk suture circumferentially to close the gap. Rigid sigmoidoscopy was performed and no air leak was identified. There was complete hemostasis. The omentum was eventually pulled over the bowel to the pelvis. There was complete hemostasis. Abdominal wall was closed with #1 looped PDS suture x2 followed by skin gina in skin. All counts were correct and the end of the operation 2. Patient was transferred to ICU on a ventilator in fair condition. NIMO ROSE MD Jan 20, 2019 00:08
[2019-01-20] MEDS ORDERED: CEFAZOLIN 2 GM/50 ML (PMX) 50 ML IVPB SCH (02:00)
[2019-01-20] MEDS: metroNIDAZOLE 500 MG/NS (PMX) 100 ML IVPB SCH ×3 (02:09→17:55)
[2019-01-20] MEDS: SOD CHLORIDE 0.9% 1,000 ML IV SCH ×2 (02:09→06:20)
[2019-01-20] MEDS ORDERED: ALBUTEROL HFA 8 GM INHALER INH PRN (02:30)
[2019-01-20] MEDS ORDERED: GLUCOSE GEL 15 GRAM TUBE BUCCAL PRN (02:30)
[2019-01-20] MEDS ORDERED: IPRATROPIUM (HFA) 12.9 GM INHALER INH PRN (02:30)
[2019-01-20] MEDS ORDERED: GLUCOSE GEL 15 GRAM TUBE PO PRN ×2 (02:30)
[2019-01-20] MEDS ORDERED: GLUCAGON 1 MG INJ IM PRN (02:30)
[2019-01-20] MEDS ORDERED: DEXTROSE 50% 50 ML SYRINGE IV PRN ×2 (02:30)
[2019-01-20] MEDS ORDERED: ONDANSETRON 4 MG INJ IV PRN (02:30)
--- NOTE | 2019-01-20 04:50 | HP ---
Date/Time of Note Date/Time of Note DATE: 01/20/19 TIME: 04:42 Assessment/Plan VTE Prophylaxis SCD applied (from Nsg): Yes Pharmacological prophylaxis: NA/contraindicated Pharm contraindication: bleeding, other (Patient just had extensive abdominal surgery with ELIUD draining bloody output) Lines/Catheters IV Catheter Type (from Nrsg): Mid Line Assessment/Plan Assessment/Plan 78-year-old male who is trach dependent with a history of diabetes, atrial fibrillation, obstructive uropathy, dysphagia status post G-tube, sigmoid/colon carcinoma status post stent admitted to ICU status post Laparoscopic converted to open low anterior resection with end colostomy, splenic mobilization and a laparoscopic appendectomy. 1. 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 Trach dependent respiratory failure: Currently on a vent -Repeat ABG in a.m. -Pulmonary to manage 3. Atrial fibrillation: Continue meds. Adjust as needed. Will hold Cardizem and a decreased dose of atenolol given BP is currently in the 90s to low 100s -Cardiology consult 4. Diabetes: Insulin 5. Dysphagia: Status post G-tube Results 24hrs Laboratory Tests Test 01/19/19 18:20 01/20/19 01:00 Bedside Glucose 121 Blood Gas Specimen Source Blood arterial Arterial Blood Date Drawn 01/20/2019 1:00:00 AM Arterial Blood pH (Temp corrected) 7.240 *L Arterial Blood pCO2 (Temp correct) 50.1 H Arterial Blood pO2 (Temp corrected) 138.6 H Arterial Blood HCO3 21.0 L Arterial Blood Base Excess -6.3 L Arterial Blood Oxygen Saturation 98.0 Nilson Test N/A Arterial Blood Gas Puncture Site A-Line Arterial Blood Carboxyhemoglobin 0.3 Arterial Blood Methemoglobin 0.4 Blood Gas A-a O2 Differential 161.5 H Oxyhemoglobin Percent 97.3 Blood Gas Temperature 37.0 Blood Gas Respiration Rate 14.0 Blood Gas Actual Respiration Rate 17 Blood Gas Modality VENT - AC FiO2 50.0 Blood Gas Tidal Volume 500.0 Blood Gas Low PEEP Setting 5.0 Blood Gas Critical Value Read Back SONIA MAYER Blood Gas Notified Whom MA Blood Gas Notified Time 01/20/2019 1:15:00 AM HPI/ROS Admit Date/Time Admit Date/Time Jan 19, 2019 at 10:30 Hx of Present Illness This is a 78-year-old male who is trach dependent with a history of diabetes, atrial fibrillation, obstructive uropathy, sigmoid/colon carcinoma status post stent. Patient is currently admitted to ICU status post Laparoscopic converted to open low anterior resection with end colostomy, splenic mobilization and a laparoscopic appendectomy. Patient's not able to provide any history at this time and as such information is gathered from chart review. His vitals were stable. Initial ABG shows acidosis with a pH of 7.24. He is connected to a vent with adjustment in the settings. PMH/Family/Social Past Medical History Medical History: other (See HPI) Medications Current Medications Morphine Sulfate (morphine) 2 mg Q2H PRN IV breakthrough pain; Start 01/19/19 at 20:30 Oxycodone/ Acetaminophen (Percocet (5/ 325)) 1 tab Q6H PRN GTB PAIN LEVEL 6-10; Start 01/19/19 at 20:30 Acetaminophen (Tylenol Tab) 650 mg Q6H PRN PEG MILD PAIN(1-3)OR ELEVATED TEMP; Start 01/19/19 at 20:30 Ondansetron HCl (Zofran Inj) 4 mg Q6H PRN IV NAUSEA AND/OR VOMITING; Start 01/19/19 at 20:30 Sodium Chloride 1,000 ml @ 100 mls/hr Q10H IV Last administered on 01/20/19at 02:09; Admin Dose 100 MLS/HR; Start 01/19/19 at 20:20 IV Flush (NS 3 ml) 3 ml PER PROTOCOL IV ; Start 01/19/19 at 20:30 Hydromorphone HCl (Dilaudid) 0.2 mg ICU RECOVERY PRN IV PAIN; Start 01/19/19 at 23:30; Stop 01/20/19 at 05:00 Hydromorphone HCl (Dilaudid) 0.4 mg ICU RECOVERY PRN IV PAIN LEVEL 6-10; Start 01/19/19 at 23:30; Stop 01/20/19 at 05:00 Fentanyl (Sublimaze) 25 mcg ICU RECOVERY PRN IV PAIN; Start 01/19/19 at 23:30; Stop 01/20/19 at 05:00 Ondansetron HCl (Zofran Inj) 4 mg ICU RECOVERY PRN IV NAUSEA/VOMITING; Start 01/19/19 at 23:30; Stop 01/20/19 at 05:00 Labetalol HCl (Labetalol) 5 mg ICU RECOVERY PRN IV HIGH BLOOD PRESSURE; Start 01/19/19 at 23:30; Stop 01/20/19 at 05:00 Hydralazine HCl (Apresoline) 5 mg ICU RECOVERY PRN IV HIGH BLOOD PRESSURE; Start 01/19/19 at 23:30; Stop 01/20/19 at 05:00 Ephedrine Sulfate 5 mg ICU RECOVERY PRN IV MAP LESS THAN 60; Start 01/19/19 at 23:30; Stop 01/20/19 at 05:00 Meperidine HCl (Demerol) 12.5 mg ICU RECOVERY PRN IV .RIGORS; Start 01/19/19 at 23:30; Stop 01/20/19 at 05:00 Diphenhydramine HCl (Benadryl) 12.5 mg ICU RECOVERY PRN IV .PRURITUS; Start 01/19/19 at 23:30; Stop 01/20/19 at 05:00 Metronidazole 100 ml @ 100 mls/hr Q8H IVPB Last administered on 01/20/19at 02 :09; Admin Dose 100 MLS/HR; Start 01/20/19 at 01:30; Stop 01/21/19 at 01:29 Dextrose/Sodium Chloride 1,000 ml @ 100 mls/hr Q10H IV ; Start 01/20/19 at 02:07 Ondansetron HCl (Zofran Inj) 4 mg Q6H PRN IV NAUSEA AND/OR VOMITING; Start 01/20/19 at 02:30 Albuterol (Ventolin Hfa) 4 puff Q2H RESP THERAPY PRN INH SHORTNESS OF BREATH; Start 01/20/19 at 02:30 Ipratropium [place] (Atrovent Hfa) 4 puff Q2H RESP THERAPY PRN INH SHORTNESS OF BREATH; Start 01/20/19 at 02:30 Pantoprazole (Protonix Iv) 40 mg DAILY@06 IV ; Start 01/20/19 at 06:00 Diagnostic Test (Pha) (Accu-Chek) 1 ea 02 XX ; Start 01/21/19 at 02:00 Insulin Aspart (Novolog Insulin Pen) NOVOLOG *MILD* ALGORI... Q4 SC ; Start 01/20/19 at 05:00 Atenolol (Tenormin) 25 mg DAILY PO ; Start 01/20/19 at 09:00 Digoxin (Digoxin) 0.25 mg DAILY@1300 PO ; Start 01/20/19 at 13:00 Furosemide (Lasix) 80 mg DAILY@0600 PO ; Start 01/20/19 at 06:00 Miscellaneous Information 1 ea NOTE XX ; Start 01/20/19 at 02:30 Glucose (Glutose) 15 gm Q15M PRN PO DECREASED GLUCOSE; Start 01/20/19 at 02:30 Glucose (Glutose) 22.5 gm Q15M PRN PO DECREASED GLUCOSE; Start 01/20/19 at 02:30 Dextrose (D50w Syringe) 25 ml Q15M PRN IV DECREASED GLUCOSE; Start 01/20/19 at 02:30 Dextrose (D50w Syringe) 50 ml Q15M PRN IV DECREASED GLUCOSE; Start 01/20/19 at 02:30 Glucagon (Glucagen) 1 mg Q15M PRN IM DECREASED GLUCOSE; Start 01/20/19 at 02:30 Glucose (Glutose) 15 gm Q15M PRN BUCCAL DECREASED GLUCOSE; Start 01/20/19 at 02:30 Coded Allergies: No Known Allergy (Unverified , 11/23/18) Past Surgical History Past Surgical Hx: other (See HPI) Family History Significant Family History: other (Unknown) Social History Alcohol Use: other (Unknown) Smoking Status: Unknown if ever smoked Drug Use: other (Unknown) Exam/Review of Systems Vital Signs Vitals Vital Signs Date Temp Pulse Resp B/P (MAP) Pulse Ox O2 O2 Flow FiO2 Time Delivery Rate 01/20/19 107 18 100 35 03:20 01/20/19 100/57 Mechanical 01:00 (71) Ventilator 01/20/19 97.5 00:30 Intake and Output 01/19/19 01/19/19 01/20/19 1515:00 23:00 07:00 IntakeIntake Total 3200 ml OutputOutput Total 1000 ml BalanceBalance 2200 ml Exam Constitutional: other (Eyes closed. No acute distress. Responds to painful stimuli.) Head: normocephalic Eyes: PERRL Respiratory: other (Decreased breath sounds at the base bilaterally) Cardiovascular: other (Tachycardic regular rhythm) Gastrointestinal: soft, other (Draining tubes in place. G-tube in place. Surgical site ) Extremities: normal pulses AJ PIERRE MD Jan 20, 2019 04:50
[2019-01-20] MEDS: INSULIN ASPART [NOVOLOG] 3 ML PEN SC SCH ×5 (05:00→20:06)
[2019-01-20] MEDS: PANTOPRAZOLE 40 MG INJ IV SCH (05:23)
[2019-01-20] MEDS: FUROSEMIDE 40 MG TAB PO SCH (05:24)
[2019-01-20] MEDS: DEXTROSE 5%-0.45% NACL 1,000 ML IV SCH ×2 (05:37→12:15)
[2019-01-20] MEDS ORDERED: PENDING SANTYL ORDER FOR WOUND CARE XX PRN (08:30)
[2019-01-20] MEDS: ATENOLOL 50 MG TAB PO SCH (09:04)
[2019-01-20] MEDS ORDERED: SOD CHLORIDE 0.9% 500 ML IV ONE ×2 (10:00→11:00)
--- NOTE | 2019-01-20 10:09 | PN ---
Date/Time of Note Date/Time of Note DATE: 01/20/19 TIME: 09:56 Assessment/Plan Lines/Catheters IV Catheter Type (from Nrs): Mid Line [place] in Place (from Nrs): Yes Assessment/Plan Chief Complaint/Hosp Course 1. Sigmoid/rectal adenocarcinoma with obstruction, status post stent and significant adhesions, colorectal bleed with anemia: Status post laparoscopic converted to open low anterior resection with end colostomy and laparoscopic appendectomy 01/19/19 -ICU care -N.p.o. bowel function -ambulate -ice pack to abdominal wall -Drain -Pain management -Close monitoring 2.Leukocytosis: -Monitor 3. Hypochromic anemia: No overt bleed noted -Monitor and transfuse as needed 4. Mild hypernatremia: -Judicious fluid management 5. VDRF: Mild bibasilar atelectasis versus airspace disease -Pulmonary toilet -vap prevention 6. Dysphagia status post PEG tube -Eventual tube feed resumption as above Thank you. Patient seen and examined in collaboration with Dr. Srini Rose. Subjective 24 Hr Interval Summary In ICU care. S/p LAR and end colostomy. Reportedly restless and agitated with tachycardia- improved after pain medications. Min temp. No labored breathing, congested cough, vomiting, seizures, rash. Minimal drainage from incision sites. No overt bleeding. Exam/Review of Systems Vital Signs Vitals Vital Signs Date Temp Pulse Resp B/P (MAP) Pulse Ox O2 O2 Flow FiO2 Time Delivery Rate 01/20/19 82 19 100 30 11:29 01/20/19 105/67 Mechanical 06:00 (80) Ventilator 01/20/19 97.8 04:00 Intake and Output 01/19/19 01/19/19 01/20/19 1414:59 22:59 06:59 IntakeIntake Total 3500 ml OutputOutput Total 1390 ml BalanceBalance 2110 ml Exam Constitutional: alert; No oriented Psych: confusion Head: normocephalic, atraumatic Eyes: nl conjunctiva, nl lids, nl sclera ENMT: nl external ears & nose, mucosa pink and moist; No nl lips & teeth (Edentulous) Neck: supple, non-tender, other (Tracheostomy) Respiratory: normal air movement; No congested cough, No labored breathing Cardiovascular: regular rate and rhythm (Sinus rhythm/sinus tach); No edema Gastrointestinal: soft, distended (Minimal), other (Incision sites: (Midline: Staple line clean with minimal serosanguineous drainage); ELIUD drain serosanguineous; colostomy: Moist) Genitourinary - Male: nl penis, nl scrotum, other (Ballard) Musculoskeletal: nl extremities to inspection Extremities: normal pulses, pitting pedal edema Neurological: confused; No nl mental status, No nl speech, No nl strength (Generalized weakness) Skin: No rash or lesions Results Result Diagram: 01/20/19 04401/20/19 044 TRACY FERREIRA NP Jan 20, 2019 10:07
--- NOTE | 2019-01-20 10:21 | CONS ---
Assessment/Plan Assessment/Plan Assessment/Plan (Daily) 1. acute kidney injury on CKD III due to ATN and prerenal azotemia 2. 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 acute on chronic respiratory failure s/p tracheostomy 4. Atrial fibrillation:rate controlled 5. H/o Diabetes melitus 6. H/O HTN 7. Dysphagia: Status post G-tube Plan: seen in ICU, hemodynamically stable, BUN/Cr 64/1.3, Na 147- slighlty better than [facility] labs IV flagyl 500mg Q 8 hr IVF D51/2NS at 100 cc/hr Renally dose all abx, monitor electrolytes General surgery following Thanks for consultation, i will continue to follow up Consultation Date/Type/Reason Admit Date/Time Jan 19, 2019 at 10:30 Date of Consultation: Jan 20, 2019 Type of Consult NEPHROLOGY Reason for Consultation acute renal faiure, on CKD , GI bleeding Requesting Provider: SPRING ADAME MD Date/Time of Note DATE: 01/20/19 TIME: 10:21 Hx of Present Illness 78-year-old male who is trach dependent with a history of diabetes, atrial fibrillation, obstructive uropathy, dysphagia status post G-tube, sigmoid/colon carcinoma status post stent admitted to ICU status post Laparoscopic converted to open low anterior resection with end colostomy, splenic mobilization and a laparoscopic appendectomy. pt was at [facility] resp unit - he had a Acute on chronic hypoxemic resp failure requiring tracheostomy- he also had a Jason on CKD due to ATN and prerenal azotemia Post surgery he in ICU, BUN/Cr 64/1.3, Na 147 - renal has been consulted for acute renal failure, Hypernatremia. Constitutional: disoriented, other (A & O x 2 ) Eyes: no complaints ENT: no complaints Respiratory: no complaints Cardiovascular: no complaints Gastrointestinal: no complaints Genitourinary: no complaints Musculoskeletal: bone/joint pain, neck pain, restricted range of motion Skin: no complaints Neurologic: no complaints Endocrine: no complaints Lymphatic: no complaints Psychological: no complaints Immunologic: no complaints Past Medical History Medical History: high cholesterol, hypertension, other (See HPI) Home Meds Active Scripts Pantoprazole (Protonix) 40 Mg Tabec, 40 MG PO BID, #60 TAB 1 Refill Prov:NAYANA GARCIA 11/22/18 Reported Medications Calcium Citrate/Vitamin D (Citracal-Vitamin D 200 MG-250) 1 Each Tablet, 1 EACH PO BID, TAB 11/19/18 Ibuprofen* (Ibuprofen*) 600 Mg Tablet, 600 MG PO Q6H PRN for PAIN LEVEL 1-5, TAB 11/19/18 Hydralazine Hcl* (Hydralazine Hcl*) 50 Mg Tablet, 50 MG PO Q6H, #60 TAB 11/19/18 Metformin* (Glucophage*) 500 Mg Tab, 500 MG PO WITH BREAKFAST, #30 TAB 11/19/18 Multivitamins* (Theragran*) 1 Tab Tab, 1 TAB PO DAILY, TAB 11/19/18 Aripiprazole* (Abilify*) 5 Mg Tab, 5 MG PO DAILY, #30 TAB 11/19/18 Diltiazem Hcl* (Cardizem SR*) 120 Mg Cap.sr.12h, 120 MG PO Q12, CAP 11/19/18 Pioglitazone Hcl* (Pioglitazone Hcl*) 30 Mg Tablet, 30 MG PO DAILY, TAB 11/19/18 Escitalopram Oxalate* (Escitalopram Oxalate*) 20 Mg Tablet, 20 MG PO DAILY, #30 TAB 11/19/18 Benazepril Hcl* (Benazepril Hcl*) 20 Mg Tablet, 20 MG PO DAILY, #30 TAB 11/19/18 Tamsulosin Hcl* (Tamsulosin Hcl*) 0.4 Mg Cap.er.24h, 0.4 MG PO HS, CAP 11/19/18 Aspirin Ec (Aspir 81) 81 Mg Tablet.dr, 81 MG PO DAILY, #30 TAB 11/19/18 Loratadine* (Loratadine*) 10 Mg Tablet, 10 MG PO DAILY, #30 TAB 11/19/18 Potassium Chloride* (Potassium Chloride*) 8 Meq Capsule.er, 8 MEQ PO DAILY, CAP 11/19/18 Furosemide* (Furosemide*) 80 Mg Tablet, 80 MG PO DAILY, #30 TAB 11/19/18 Atenolol* (Atenolol*) 50 Mg Tablet, 50 MG PO DAILY, #30 TAB 11/19/18 Digoxin* (Lanoxin*) 0.25 Mg Tablet, 0.25 MG PO DAILY, TAB 11/19/18 Medications Current Medications Morphine Sulfate (morphine) 2 mg Q2H PRN IV breakthrough pain Last administered on 01/20/19at 08:28; Admin Dose 2 MG; Start 01/19/19 at 20:30 Oxycodone/ Acetaminophen (Percocet (5/ 325)) 1 tab Q6H PRN GTB PAIN LEVEL 6-10 Last administered on 01/20/19at 09:05; Admin Dose 1 TAB; Start 01/19/19 at 20:30 Acetaminophen (Tylenol Tab) 650 mg Q6H PRN PEG MILD PAIN(1-3)OR ELEVATED TEMP; Start 01/19/19 at 20:30 Ondansetron HCl (Zofran Inj) 4 mg Q6H PRN IV NAUSEA AND/OR VOMITING; Start 01/19/19 at 20:30 IV Flush (NS 3 ml) 3 ml PER PROTOCOL IV ; Start 01/19/19 at 20:30 Metronidazole 100 ml @ 100 mls/hr Q8H IVPB Last administered on 01/20/19at 02:09; Admin Dose 100 MLS/HR; Start 01/20/19 at 01:30; Stop 01/21/19 at 01:29 Dextrose/Sodium Chloride 1,000 ml @ 100 mls/hr Q10H IV Last administered on 01/20/19at 05:37; Admin Dose 100 MLS/HR; Start 01/20/19 at 02:07 Ondansetron HCl (Zofran Inj) 4 mg Q6H PRN IV NAUSEA AND/OR VOMITING; Start 01/20/19 at 02:30 Albuterol (Ventolin Hfa) 4 puff Q2H RESP THERAPY PRN INH SHORTNESS OF BREATH; Start 01/20/19 at 02:30 Ipratropium [place] (Atrovent Hfa) 4 puff Q2H RESP THERAPY PRN INH SHORTNESS OF BREATH; Start 01/20/19 at 02:30 Pantoprazole (Protonix Iv) 40 mg DAILY@06 IV Last administered on 01/20/19at 05:23; Admin Dose 40 MG; Start 01/20/19 at 06:00 Diagnostic Test (Pha) (Accu-Chek) 1 ea 02 XX ; Start 01/21/19 at 02:00 Insulin Aspart (Novolog Insulin Pen) NOVOLOG *MILD* ALGORI... Q4 SC Last administered on 01/20/19at 09:17; Admin Dose 1 UNIT; Start 01/20/19 at 05:00 Atenolol (Tenormin) 25 mg DAILY PO Last administered on 01/20/19at 09:04; Admin Dose 25 MG; Start 01/20/19 at 09:00 Digoxin (Digoxin) 0.25 mg DAILY@1300 PO ; Start 01/20/19 at 13:00 Furosemide (Lasix) 80 mg DAILY@0600 PO Last administered on 01/20/19at 05:24; Admin Dose 80 MG; Start 01/20/19 at 06:00 Miscellaneous Information 1 ea NOTE XX ; Start 01/20/19 at 02:30 Glucose (Glutose) 15 gm Q15M PRN PO DECREASED GLUCOSE; Start 01/20/19 at 02:30 Glucose (Glutose) 22.5 gm Q15M PRN PO DECREASED GLUCOSE; Start 01/20/19 at 02:30 Dextrose (D50w Syringe) 25 ml Q15M PRN IV DECREASED GLUCOSE; Start 01/20/19 at 02:30 Dextrose (D50w Syringe) 50 ml Q15M PRN IV DECREASED GLUCOSE; Start 01/20/19 at 02:30 Glucagon (Glucagen) 1 mg Q15M PRN IM DECREASED GLUCOSE; Start 01/20/19 at 02:30 Glucose (Glutose) 15 gm Q15M PRN BUCCAL DECREASED GLUCOSE; Start 01/20/19 at 02:30 [facility] This patient huff... PRN PRN XX WOUND CARE; Start 01/20/19 at 08:30 Sodium Chloride 500 ml @ 500 mls/hr Q1H ONCE IV Last administered on 01/20/19at 10:02; Admin Dose 500 MLS/HR; Start 01/20/19 at 10:00; Stop 01/20/19 at 10:59 Allergies: Coded Allergies: No Known Allergy (Unverified , 01/20/19) Past Surgical History Past Surgical Hx: other (Tracheostomy, G tube, S/p Colon surgery now ) Family History Significant Family History: no pertinent family hx Social History Alcohol Use: none Smoking Status: Unknown if ever smoked Drug Use: none, other (Unknown) Exam/Review of Systems Exam Vitals Vital Signs Date Temp Pulse Resp B/P (MAP) Pulse Ox O2 O2 Flow FiO2 Time Delivery Rate 01/20/19 117 18 97 30 09:30 01/20/19 105/67 Mechanical 06:00 (80) Ventilator 01/20/19 97.8 04:00 Intake and Output 01/19/19 01/19/19 01/20/19 1515:00 23:00 07:00 IntakeIntake Total 3600 ml OutputOutput Total 1440 ml BalanceBalance 2160 ml Constitutional: alert, other (oriented x 2 ) Psych: no complaints Head: normocephalic Eyes: nl conjunctiva ENMT: nl external ears & nose Neck: supple, non-tender Respiratory: congested cough, crackles/rales, diminished breath sounds Cardiovascular: regular rate and rhythm, nl pulses Gastrointestinal: soft, other (abdominal dressing + ) Musculoskeletal: nl extremities to inspection Extremities: normal pulses Neurological: lethargic Skin: nl turgor Results Result Diagram: 01/20/19 0441 01/20/19 0441 Results 24hrs Laboratory Tests Test 01/19/19 18:20 01/20/19 01:00 01/20/19 04:41 01/20/19 05:00 Bedside Glucose 121 Blood Gas Blood arterial Blood Specimen arterial Source Arterial Blood 01/20/2019 1:00: 01/20/2019 5:15 Date Drawn 00 AM :39 AM Arterial Blood 7.240 *L 7.396 pH (Temp corrected ) Arterial Blood 50.1 H 31.0 L pCO2 (Temp correct) Arterial Blood 138.6 H 120.2 H pO2 (Temp corrected ) Arterial Blood 21.0 L 18.6 L HCO3 Arterial Blood -6.3 L -5.4 L Base Excess Arterial Blood 98.0 97.9 Oxygen Saturati on Nilson Test N/A N/A Arterial Blood A-Line A-Line Gas Puncture Site Arterial 0.3 0.3 Blood Carboxyhe moglobin Arterial Blood 0.4 0.3 Methemoglobin Blood Gas A-a 161.5 H 93.3 H O2 Differential Oxyhemoglobin 97.3 97.3 Percent Blood Gas 37.0 37.0 Temperature Blood Gas 14.0 16.0 Respiration Rate Blood Gas 17 27 Actual Respiration Rat e Blood Gas VENT - AC VENT - AC/VC+ Modality FiO2 50.0 35.0 Blood Gas Tidal 500.0 550.0 Volume Blood Gas Low 5.0 5.0 PEEP Setting Blood Gas SONIA MAYER Critical Value Read Back Blood Gas MA AA Notified Whom Blood Gas 01/20/2019 1:15: 01/20/2019 5:22 Notified Time 00 AM :38 AM White Blood 10.9 #H Count Red Blood Count 3.20 L Hemoglobin 8.7 L Hematocrit 29.3 L Mean 91.6 Corpuscular Volume Mean 27.2 L Corpuscular Hemoglobin Mean 29.7 L Corpuscular Hemoglobin Conc ent Red Cell 17.0 H Distribution Width Platelet Count 253 Mean Platelet 11.8 H Volume Immature 0.500 H Granulocytes % Neutrophils % 84.2 H Lymphocytes % 7.8 L Monocytes % 6.1 Eosinophils % 1.0 Basophils % 0.4 Nucleated Red 0.0 Blood Cells % Immature 0.050 H Granulocytes # Neutrophils # 9.1 H Lymphocytes # 0.9 Monocytes # 0.7 Eosinophils # 0.1 Basophils # 0.0 Nucleated Red 0.0 Blood Cells # Sodium Level 147 H Potassium Level 4.1 Chloride Level 117 H Carbon Dioxide 21 Level Anion Gap 9 Blood Urea 64 H Nitrogen Creatinine 1.30 H Est Glomerular Filtrat Rate mL/min Glucose Level 112 Calcium Level 8.7 Total Bilirubin 0.2 Direct 0.00 Bilirubin Indirect 0.2 Bilirubin Aspartate Amino 23 Transf (AST/SGO T) Alanine 21 Aminotransferas e (ALT/SGPT) Alkaline 92 Phosphatase Total Protein 6.4 # Albumin 2.9 L Globulin 3.50 H Albumin/Globuli 0.82 n Ratio Blood Gas 0.9 Inspiratory Time Blood Gas 27.0 Inspiratory Pressure Test 01/20/19 05:16 01/20/19 05:36 01/20/19 09:14 Lab Scanned BLOOD TRANSFUSI Report ON Bedside Glucose 116 153 Medications Medication Current Medications Morphine Sulfate (morphine) 2 mg Q2H PRN IV breakthrough pain Last administered on 01/20/19at 08:28; Admin Dose 2 MG; Start 01/19/19 at 20:30 Oxycodone/ Acetaminophen (Percocet (5/ 325)) 1 tab Q6H PRN GTB PAIN LEVEL 6-10 Last administered on 01/20/19at 09:05; Admin Dose 1 TAB; Start 01/19/19 at 20:30 Acetaminophen (Tylenol Tab) 650 mg Q6H PRN PEG MILD PAIN(1-3)OR ELEVATED TEMP; Start 01/19/19 at 20:30 Ondansetron HCl (Zofran Inj) 4 mg Q6H PRN IV NAUSEA AND/OR VOMITING; Start 01/19/19 at 20:30 IV Flush (NS 3 ml) 3 ml PER PROTOCOL IV ; Start 01/19/19 at 20:30 Metronidazole 100 ml @ 100 mls/hr Q8H IVPB Last administered on 01/20/19at 02 :09; Admin Dose 100 MLS/HR; Start 01/20/19 at 01:30; Stop 01/21/19 at 01:29 Dextrose/Sodium Chloride 1,000 ml @ 100 mls/hr Q10H IV Last administered on 01/20/19at 05:37; Admin Dose 100 MLS/HR; Start 01/20/19 at 02:07 Ondansetron HCl (Zofran Inj) 4 mg Q6H PRN IV NAUSEA AND/OR VOMITING; Start 01/20/19 at 02:30 Albuterol (Ventolin Hfa) 4 puff Q2H RESP THERAPY PRN INH SHORTNESS OF BREATH; Start 01/20/19 at 02:30 Ipratropium [place] (Atrovent Hfa) 4 puff Q2H RESP THERAPY PRN INH SHORTNESS OF BREATH; Start 01/20/19 at 02:30 Pantoprazole (Protonix Iv) 40 mg DAILY@06 IV Last administered on 01/20/19at 05:23; Admin Dose 40 MG; Start 01/20/19 at 06:00 Diagnostic Test (Pha) (Accu-Chek) 1 ea 02 XX ; Start 01/21/19 at 02:00 Insulin Aspart (Novolog Insulin Pen) NOVOLOG *MILD* ALGORI... Q4 SC Last adm inistered on 01/20/19at 09:17; Admin Dose 1 UNIT; Start 01/20/19 at 05:00 Atenolol (Tenormin) 25 mg DAILY PO Last administered on 01/20/19at 09:04; Admin Dose 25 MG; Start 01/20/19 at 09:00 Digoxin (Digoxin) 0.25 mg DAILY@1300 PO ; Start 01/20/19 at 13:00 Furosemide (Lasix) 80 mg DAILY@0600 PO Last administered on 01/20/19at 05:24; Admin Dose 80 MG; Start 01/20/19 at 06:00 Miscellaneous Information 1 ea NOTE XX ; Start 01/20/19 at 02:30 Glucose (Glutose) 15 gm Q15M PRN PO DECREASED GLUCOSE; Start 01/20/19 at 02:30 Glucose (Glutose) 22.5 gm Q15M PRN PO DECREASED GLUCOSE; Start 01/20/19 at 02:3 0 Dextrose (D50w Syringe) 25 ml Q15M PRN IV DECREASED GLUCOSE; Start 01/20/19 at 02:30 Dextrose (D50w Syringe) 50 ml Q15M PRN IV DECREASED GLUCOSE; Start 01/20/19 at 02:30 Glucagon (Glucagen) 1 mg Q15M PRN IM DECREASED GLUCOSE; Start 01/20/19 at 02:30 Glucose (Glutose) 15 gm Q15M PRN BUCCAL DECREASED GLUCOSE; Start 01/20/19 at 02:30 [facility] This patient huff... PRN PRN XX WOUND CARE; Start 01/20/19 at 08:30 Sodium Chloride 500 ml @ 500 mls/hr Q1H ONCE IV Last administered on 01/20/19at 10:02; Admin Dose 500 MLS/HR; Start 01/20/19 at 10:00; Stop 01/20/19 at 10:59 RENAN HERNANDEZ MD Jan 20, 2019 10:21
--- NOTE | 2019-01-20 12:03 | CONS ---
DATE OF ADMISSION: 01/19/2019 DATE OF CONSULTATION: 01/20/2019 TYPE OF CONSULTATION: Pulmonary. REASON FOR CONSULTATION: Ventilator management. Thank you, Dr. Farias, for this consultation. 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 The patient tolerated the procedure well without complications and was transferred to intensive car e for further monitoring. This morning remains awake, alert. Mild confusion, placed back on mechani kay ventilation at [facility]. The patient was off mechanical ventilation for 2 wee ks, tolerating PMV trials, but not eating as yet. PAST MEDICAL HISTORY: As above. MEDICATIONS: Per chart. ALLERGIES: None. SOCIAL HISTORY: Nonsmoker, no alcohol, no history of drug use. FAMILY HISTORY: Noncontributory. SYSTEMS REVIEW: A 12-point review of systems was negative other than that mentioned. PHYSICAL EXAMINATION: GENERAL: Well-nourished, well-developed gentleman, comfortable at rest, no acute distress. VITAL SIGNS: Currently afebrile, pulse is 110, blood pressure 106/67, O2 saturation 96% on FIO2 of 3 0%. NECK: Trach site clean and intact. CARDIAC: S1, S2, no added sounds or murmurs. CHEST: Diminished air entry bilaterally. ABDOMEN: Soft, nontender. No guarding or rebound. EXTREMITIES: No cyanosis, clubbing or edema. NEUROLOGIC: No focal deficits. LABORATORY DATA: White count 10.9, hemoglobin 8.7, platelets 253. BUN 63, creatinine 1.3. ABG this morning, pH 7.39, pCO2 of 31, pO2 of 120 with a bicarbonate of 18.6. DIAGNOSTIC DATA: Chest x-ray was reviewed, showed no significant effusion and persistent bibasilar a telectasis. IMPRESSION AND PLAN: Chronic respiratory failure with rectosigmoid tumor, status post resection, pos toperative hypotension this morning requiring low volume challenge. The patient will require: 1. Continue mechanical ventilation. 2. PICC line placement. 3. Vasopressor as needed. 4. Postoperative antibiotics. 5. Rate control. 6. Deep vein thrombosis and GI prophylaxis. Dictated By: JANNET MARSHALL/JOANN Conf#: [id number] DID#: [id number] CC: AJ FARIAS MD;*EndCC*
[2019-01-20] MEDS: morphine 2 MG INJ IV PRN ×5 (12:15→22:07)
--- NOTE | 2019-01-20 13:46 | PN ---
Date/Time of Note Date/Time of Note DATE: 01/20/19 TIME: 13:44 Assessment/Plan VTE Prophylaxis Risk score (from [facility] [place]0 risk: 10 SCD applied (from [facility] [place]): Yes Pharmacological prophylaxis: NA/contraindicated Pharm contraindication: surgical contra Lines/Catheters IV Catheter Type (from [facility]): Mid Line Assessment/Plan Hospital Course 78-year-old male who is trach dependent with a history of diabetes, atrial fibrillation, obstructive uropathy, dysphagia status post G-tube, sigmoid/colon carcinoma status post stent admitted to ICU status post Laparoscopic converted to open low anterior resection with end colostomy, splenic mobilization and a laparoscopic appendectomy. 1. 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 Trach dependent respiratory failure: Currently on a vent -Pulmonary to manage 3. Atrial fibrillation: Continue meds. Adjust as needed. Will hold Cardizem and atenolol given current hypotension 4. Hypotension -Improved with bolus -Monitor urine output 5. Diabetes: Insulin 6. Dysphagia: Status post G-tube Prophylaxis: SCDs Result Diagram: 01/20/19 0441 01/20/19 0441 Results 24hrs Laboratory Tests Test 01/19/19 18:20 01/20/19 01:00 01/20/19 04:41 01/20/19 05:00 Bedside Glucose 121 Blood Gas Blood arterial Blood Specimen arterial Source Arterial Blood 01/20/2019 1:00: 01/20/2019 5:15 Date Drawn 00 AM :39 AM Arterial Blood 7.240 *L 7.396 pH (Temp corrected ) Arterial Blood 50.1 H 31.0 L pCO2 (Temp correct) Arterial Blood 138.6 H 120.2 H pO2 (Temp corrected ) Arterial Blood 21.0 L 18.6 L HCO3 Arterial Blood -6.3 L -5.4 L Base Excess Arterial Blood 98.0 97.9 Oxygen Saturati on Nilson Test N/A N/A Arterial Blood A-Line A-Line Gas Puncture Site Arterial 0.3 0.3 Blood Carboxyhe moglobin Arterial Blood 0.4 0.3 Methemoglobin Blood Gas A-a 161.5 H 93.3 H O2 Differential Oxyhemoglobin 97.3 97.3 Percent Blood Gas 37.0 37.0 Temperature Blood Gas 14.0 16.0 Respiration Rate Blood Gas 17 27 Actual Respiration Rat e Blood Gas VENT - AC VENT - AC/VC+ Modality FiO2 50.0 35.0 Blood Gas Tidal 500.0 550.0 Volume Blood Gas Low 5.0 5.0 PEEP Setting Blood Gas SONIA MAYER Critical Value Read Back Blood Gas MINI AA Notified Whom Blood Gas 01/20/2019 1:15: 01/20/2019 5:22 Notified Time 00 AM :38 AM White Blood 10.9 #H Count Red Blood Count 3.20 L Hemoglobin 8.7 L Hematocrit 29.3 L Mean 91.6 Corpuscular Volume Mean 27.2 L Corpuscular Hemoglobin Mean 29.7 L Corpuscular Hemoglobin Conc ent Red Cell 17.0 H Distribution Width Platelet Count 253 Mean Platelet 11.8 H Volume Immature 0.500 H Granulocytes % Neutrophils % 84.2 H Lymphocytes % 7.8 L Monocytes % 6.1 Eosinophils % 1.0 Basophils % 0.4 Nucleated Red 0.0 Blood Cells % Immature 0.050 H Granulocytes # Neutrophils # 9.1 H Lymphocytes # 0.9 Monocytes # 0.7 Eosinophils # 0.1 Basophils # 0.0 Nucleated Red 0.0 Blood Cells # Sodium Level 147 H Potassium Level 4.1 Chloride Level 117 H Carbon Dioxide 21 Level Anion Gap 9 Blood Urea 64 H Nitrogen Creatinine 1.30 H Est Glomerular Filtrat Rate mL/min Glucose Level 112 Calcium Level 8.7 Total Bilirubin 0.2 Direct 0.00 Bilirubin Indirect 0.2 Bilirubin Aspartate Amino 23 Transf (AST/SGO T) Alanine 21 Aminotransferas e (ALT/SGPT) Alkaline 92 Phosphatase Total Protein 6.4 # Albumin 2.9 L Globulin 3.50 H Albumin/Globuli 0.82 n Ratio Blood Gas 0.9 Inspiratory Time Blood Gas 27.0 Inspiratory Pressure Test 01/20/19 05:16 01/20/19 05:36 01/20/19 09:14 Lab Scanned BLOOD TRANSFUSI Report ON Bedside Glucose 116 153 Subjective 24 Hr Interval Summary Subjective hx not possible: pt non-verbal Exam/Review of Systems Exam Vitals Vital Signs Date Temp Pulse Resp B/P (MAP) Pulse Ox O2 O2 Flow FiO2 Time Delivery Rate 01/20/19 81 16 100 30 13:24 01/20/19 92/55 (67) [place] 11:30 l Ventilato r 01/20/19 100.1 08:00 Intake and Output 2/27/19 2/27/19 2/28/19 1515:00 23:00 07:00 IntakeIntake Total 3600 ml OutputOutput Total 1440 ml BalanceBalance 2160 ml Constitutional: non-verbal Respiratory: clear to auscultation Cardiovascular: regular rate and rhythm Gastrointestinal: soft; No distended Musculoskeletal: nl extremities to inspection Results Results 24hrs Laboratory Tests Test 01/19/19 18:20 01/20/19 01:00 01/20/19 04:41 01/20/19 05:00 Bedside Glucose 121 Blood Gas Blood arterial Blood Specimen arterial Source Arterial Blood 01/20/2019 1:00: 01/20/2019 5:15 Date Drawn 00 AM :39 AM Arterial Blood 7.240 *L 7.396 pH (Temp corrected ) Arterial Blood 50.1 H 31.0 L pCO2 (Temp correct) Arterial Blood 138.6 H 120.2 H pO2 (Temp corrected ) Arterial Blood 21.0 L 18.6 L HCO3 Arterial Blood -6.3 L -5.4 L Base Excess Arterial Blood 98.0 97.9 Oxygen Saturati on Nilson Test N/A N/A Arterial Blood A-Line A-Line Gas Puncture Site Arterial 0.3 0.3 Blood Carboxyhe moglobin Arterial Blood 0.4 0.3 Methemoglobin Blood Gas A-a 161.5 H 93.3 H O2 Differential Oxyhemoglobin 97.3 97.3 Percent Blood Gas 37.0 37.0 Temperature Blood Gas 14.0 16.0 Respiration Rate Blood Gas 17 27 Actual Respiration Rat e Blood Gas VENT - AC VENT - AC/VC+ Modality FiO2 50.0 35.0 Blood Gas Tidal 500.0 550.0 Volume Blood Gas Low 5.0 5.0 PEEP Setting Blood Gas SONIA MAYER Critical Value Read Back Blood Gas MINI JOHNSON Notified Whom Blood Gas 01/20/2019 1:15: 01/20/2019 5:22 Notified Time 00 AM :38 AM White Blood 10.9 #H Count Red Blood Count 3.20 L Hemoglobin 8.7 L Hematocrit 29.3 L Mean 91.6 Corpuscular Volume Mean 27.2 L Corpuscular Hemoglobin Mean 29.7 L Corpuscular Hemoglobin Conc ent Red Cell 17.0 H Distribution Width Platelet Count 253 Mean Platelet 11.8 H Volume Immature 0.500 H Granulocytes % Neutrophils % 84.2 H Lymphocytes % 7.8 L Monocytes % 6.1 Eosinophils % 1.0 Basophils % 0.4 Nucleated Red 0.0 Blood Cells % Immature 0.050 H Granulocytes # Neutrophils # 9.1 H Lymphocytes # 0.9 Monocytes # 0.7 Eosinophils # 0.1 Basophils # 0.0 Nucleated Red 0.0 Blood Cells # Sodium Level 147 H Potassium Level 4.1 Chloride Level 117 H Carbon Dioxide 21 Level Anion Gap 9 Blood Urea 64 H Nitrogen Creatinine 1.30 H Est Glomerular Filtrat Rate mL/min Glucose Level 112 Calcium Level 8.7 Total Bilirubin 0.2 Direct 0.00 Bilirubin Indirect 0.2 Bilirubin Aspartate Amino 23 Transf (AST/SGO T) Alanine 21 Aminotransferas e (ALT/SGPT) Alkaline 92 Phosphatase Total Protein 6.4 # Albumin 2.9 L Globulin 3.50 H Albumin/Globuli 0.82 n Ratio Blood Gas 0.9 Inspiratory Time Blood Gas 27.0 Inspiratory Pressure Test 01/20/19 05:16 01/20/19 05:36 01/20/19 09:14 Lab Scanned BLOOD TRANSFUSI Report ON Bedside Glucose 116 153 Medications Medication Current Medications Oxycodone/ Acetaminophen (Percocet (5/ 325)) 1 tab Q6H PRN GTB PAIN LEVEL 6-10 Last administered on 01/20/19at 09:05; Admin Dose 1 TAB; Start 01/19/19 at 20:30 Acetaminophen (Tylenol Tab) 650 mg Q6H PRN PEG MILD PAIN(1-3)OR ELEVATED TEMP; Start 01/19/19 at 20:30 IV Flush (NS 3 ml) 3 ml PER PROTOCOL IV ; Start 01/19/19 at 20:30 Metronidazole 100 ml @ 100 mls/hr Q8H IVPB Last administered on 01/20/19at 10:21; Admin Dose 100 MLS/HR; Start 01/20/19 at 01:30; Stop 01/21/19 at 01:29 Dextrose/Sodium Chloride 1,000 ml @ 100 mls/hr Q10H IV Last administered on 01/20/19at 12:15; Admin Dose 100 MLS/HR; Start 01/20/19 at 02:07 Ondansetron HCl (Zofran Inj) 4 mg Q6H PRN IV NAUSEA AND/OR VOMITING; Start 01/20/19 at 02:30 Albuterol (Ventolin Hfa) 4 puff Q2H RESP THERAPY PRN INH SHORTNESS OF BREATH; Start 01/20/19 at 02:30 Ipratropium [place] (Atrovent Hfa) 4 puff Q2H RESP THERAPY PRN INH SHORTNESS OF BREATH; Start 01/20/19 at 02:30 Pantoprazole (Protonix Iv) 40 mg DAILY@06 IV Last administered on 01/20/19at 05:23; Admin Dose 40 MG; Start 01/20/19 at 06:00 Diagnostic Test (Pha) (Accu-Chek) 1 ea 02 XX ; Start 01/21/19 at 02:00 Insulin Aspart (Novolog Insulin Pen) NOVOLOG *MILD* ALGORI... Q4 SC Last administered on 01/20/19at 09:17; Admin Dose 1 UNIT; Start 01/20/19 at 05:00 Atenolol (Tenormin) 25 mg DAILY PO Last administered on 01/20/19at 09:04; Admin Dose 25 MG; Start 01/20/19 at 09:00 Digoxin (Digoxin) 0.25 mg DAILY@1300 PO ; Start 01/20/19 at 13:00 Furosemide (Lasix) 80 mg DAILY@0600 PO Last administered on 01/20/19at 05:24; Admin Dose 80 MG; Start 01/20/19 at 06:00 Miscellaneous Information 1 ea NOTE XX ; Start 01/20/19 at 02:30 Glucose (Glutose) 15 gm Q15M PRN PO DECREASED GLUCOSE; Start 01/20/19 at 02:30 Glucose (Glutose) 22.5 gm Q15M PRN PO DECREASED GLUCOSE; Start 01/20/19 at 02:30 Dextrose (D50w Syringe) 25 ml Q15M PRN IV DECREASED GLUCOSE; Start 01/20/19 at 02:30 Dextrose (D50w Syringe) 50 ml Q15M PRN IV DECREASED GLUCOSE; Start 01/20/19 at 02:30 Glucagon (Glucagen) 1 mg Q15M PRN IM DECREASED GLUCOSE; Start 01/20/19 at 02:30 Glucose (Glutose) 15 gm Q15M PRN BUCCAL DECREASED GLUCOSE; Start 01/20/19 at 02:30 Miscellaneous Information (Pending [facility] Order For Wound Care) This patient huff... PRN PRN XX WOUND CARE; Start 01/20/19 at 08:30 Morphine Sulfate (morphine) 1 mg Q2H PRN IV breakthrough pain Last administered on 01/20/19at 12:15; Admin Dose 1 MG; Start 01/20/19 at 12:30 GEO DELEON Jan 20, 2019 13:46
--- NOTE | 2019-01-20 13:47 | CONS ---
DATE OF ADMISSION: 01/19/2019 DATE OF CONSULTATION: 01/20/2019 TYPE OF CONSULTATION: Cardiology. REASON FOR CONSULTATION: Abnormal electrocardiogram, tachycardia. REQUESTING PHYSICIAN: Tyson Pierre MD, from the hospitalist service. HISTORY OF PRESENT ILLNESS: Mr. Sanders is a 78-year-old male with history of recently diagnosed colon CA and subsequent anemia post diagnosis who had a complicated hospital course including develop ment of acute myocardial infarction, status post left heart catheterization revealing no significant epicardial coronary artery disease, small vessel disease, prolonged intubation requiring a tracheosto my, dysphagia requiring G-tube and was then transferred to [facility] for ongoing ca re and additionally had renal failure. The patient had made significant recovery. He underwent carlos ogram as stated above revealing no significant coronary artery disease and a 2D echo revealing a pres erved EF. The patient was able to be weaned off the vent and the patient's creatinine has made signi ficant recovery. Therefore, the patient yesterday was taken to the OR and underwent a laparoscopic w hich was converted to an open low anterior resection with resection of patient's colonic mass and adrianne cement of a colostomy. The patient has now been admitted to the ICU where he remains at this time an d in the morning, the patient's heart rates in the 120s and now, it is relaxed down to 80s with some pain medications and marginal blood pressures. PAST MEDICAL HISTORY: As above in HPI. MEDICATIONS CURRENTLY IN HOSPITAL: 1. Digoxin 0.25 mg daily. 2. Morphine p.r.n. 3. Atenolol 25 mg daily. 4. Lasix 80 mg daily. 5. Zofran. 6. Albuterol. 7. Atrovent. 8. Flagyl q.8. 9. Percocet. 10. Tylenol. ALLERGIES: NO KNOWN DRUG ALLERGIES. SOCIAL HISTORY: No current tobacco, EtOH or illicit drug use. FAMILY HISTORY: No history of sudden cardiac or early CAD. REVIEW OF SYSTEMS: As above in HPI. CONSTITUTIONAL: No fevers, chills. PULMONARY: No current shortness of breath. CARDIOVASCULAR: No current signs of chest pain. GASTROINTESTINAL: Dysphagia, status post G-tube, status post resection of colonic mass. GENITOURINARY: Renal failure, improving. PSYCHIATRIC: No documented psych history. NEUROLOGIC: No documented history of CVA. ENDOCRINE: Positive diabetes mellitus. PHYSICAL EXAMINATION: VITAL SIGNS: Temperature of 97.5, blood pressure most recently of 105/67, pulse 82, respiratory rate 19, satting 100% on FiO2 of 30%. GENERAL: The patient is alert, awake, somewhat confused. NECK: Tracheostomy in place. CHEST: Upper airway transmitted rhonchorous sounds. HEART: Regular rate and rhythm. Normal S1, S2, I/ systolic murmur. ABDOMEN: Positive bowel sounds. Soft, covered by dressing. Colostomy in place. EXTREMITIES: No significant pitting edema, 1+ pulses bilateral posterior tibial. LABORATORY DATA: Most recently from today, sodium 147, potassium 4.1, creatinine 1.3, BUN of 64. Wh ite blood cell count of 10.9, hemoglobin 8.7, platelet count 253. IMAGING STUDIES: Chest x-ray on 01/20/2019 revealing no significant changes, bilateral opacities rep resenting atelectasis or airspace disease. ELECTROCARDIOGRAM: Most recently from 12/30/2018 revealing sinus rhythm rate of 90, IVCD, left axis deviation. IMPRESSION: 1. Tachycardia, intermittent consistent with sinus tachycardia, likely in the setting of pain and an xiety. 2. Hypotension, borderline after given pain meds, ensure good volume status. 3. Abnormal electrocardiogram, right bundle branch block, secondary repolarization abnormalities, as sess for heart block, rule out acute coronary syndrome postoperatively. 4. Colon carcinoma, status post resection, postop day #1. 5. Anemia. 6. Renal failure, improving. 7. Altered mental state/encephalopathy. 8. Diabetes mellitus. 9. Leukocytosis. 10. Hypernatremia. RECOMMENDATIONS: 1. At this time, we would maintain the patient in ICU on close monitoring. 2. Continue the patient's current atenolol, following blood pressure and heart rate closely as pattie ated. 3. Continue the patient's Lasix diuresis as tolerated. 4. The patient was started on digoxin which I will continue today but in the setting of renal failur e it will likely be discontinued so as not to cause accumulation of possible risk of toxicity. 5. Continue the patient's IV fluid hydration, following electrolytes closely and continue the patien t's antibiotic therapy. Thank you for allowing me to take part in the care of this patient. I will continue to follow him ve ry closely with you with further recommendations to be made as the [facility] Dictated By: TWAN CHARLES/JOANN Conf#: [id number] DID#: [id number] CC: GEO DELEON MD; AJ PIERRE MD; NIMO HOPKINS MD;*EndCC*
[2019-01-20] MEDS: DIGOXIN 0.25 MG TAB PO SCH (14:26)
[2019-01-20] MEDS ORDERED: LIDOCAINE 1% (MPF) 5 ML VIAL SC ONE (17:30)
[2019-01-20] MEDS ORDERED: LORAZEPAM 2 MG INJ IV ONE (23:00)
[2019-01-21] VITALS (36 sets, daily range): BP systolic 79–117; BP diastolic 41–72; PULSE 75–94; RESP 16–29
[2019-01-21] MEDS: INSULIN ASPART [NOVOLOG] 3 ML PEN SC SCH ×5 (01:00→18:00)
[2019-01-21] MEDS: DEXTROSE 5%-0.45% NACL 1,000 ML IV SCH ×3 (01:35→11:28)
[2019-01-21] MEDS ORDERED: ACCU-CHEK XX SCH (02:00)
[2019-01-21] MEDS: morphine 2 MG INJ IV PRN ×3 (02:15→17:54)
[2019-01-21] MEDS: PANTOPRAZOLE 40 MG INJ IV SCH (05:27)
[2019-01-21] MEDS: FUROSEMIDE 40 MG TAB PO SCH (05:29)
[2019-01-21] MEDS: ATENOLOL 50 MG TAB PO SCH (09:00)
--- NOTE | 2019-01-21 10:50 | CONS ---
Assessment/Plan Assessment/Plan Hospital Course (Demo Recall) IMPRESSION: 1. Tachycardia, intermittent consistent with sinus tachycardia, likely in the setting of pain and anxiety-improved 2. Hypotension, borderline after given pain meds, ensure good volume status. 3. Abnormal electrocardiogram, right bundle branch block, secondary repolarization abnormalities, assess for heart block, rule out acute coronary syndrome postoperatively. 4. Colon carcinoma, status post resection, postop day #2. 5. Anemia. 6. Renal failure, improving. 7. Altered mental state/encephalopathy. 8. Diabetes mellitus. 9. Leukocytosis. 10. Hypernatremia. Recc: -ICU -Continue BB as tolerated only -Follow volume status clsoely -routine post-op care -pain control Consultation Date/Type/Reason Admit Date/Time Jan 19, 2019 at 10:30 Initial Consult Date 01/20/19 Type of Consult Cardiology Reason for Consultation tachycardia Requesting Provider: SPRING ADAME MD Date/Time of Note DATE: 01/21/19 TIME: 10:46 Exam/Review of Systems Vital Signs Vitals Vital Signs Date Temp Pulse Resp B/P (MAP) Pulse Ox O2 O2 Flow FiO2 Time Delivery Rate 01/21/19 83 25 93 40 09:20 01/21/19 104/42 Mechanical 06:00 (62) Ventilator 01/21/19 98.5 04:00 Intake and Output 01/20/19 01/20/19 01/21/19 1515:00 23:00 07:00 IntakeIntake Total 1900 ml 800 ml 400 ml OutputOutput Total 125 ml 389 ml 325 ml BalanceBalance 1775 ml 411 ml 75 ml Exam Exam Review of Systems: CONSTITUTIONAL: No fevers, chills. PULMONARY: No sob CARDIOVASCULAR: No chest pain/palpitations GASTROINTESTINAL: No nausea/vomiting. GENITOURINARY: No hematuria/dysuria. MUSCULOSKELETAL: No myagias/arthalgias. PSYCHIATRIC: The patient denies depression. NEUROLOGIC: No weakness Constitutional: alert Psych: no complaints Head: normocephalic ENMT: mucosa pink and moist Neck: supple, jvd (9 cm water) Respiratory: clear to auscultation Cardiovascular: regular rate and rhythm Gastrointestinal: soft, surgical scars, other (colostomy) Musculoskeletal: muscle tone (normal) Extremities: edema (none) Neurological: other (No focal deficits) Labs Result Diagram: 01/21/1939901/21/19399 Results 24hrs Laboratory Tests Test 01/20/19 14:27 01/20/19 16:18 01/20/19 17:52 01/20/19 20:06 Bedside Glucose 140 117 110 Creatine Kinase 106 Creatine Kinase 1.7 Index Creatinine Kinase 1.76 MB (Mass) Troponin I 0.040 Test 01/21/19 00:26 01/21/19 01:04 01/21/19 04:00 01/21/19 05:26 Creatine Kinase 102 Creatine Kinase 1.3 Index Creatinine Kinase 1.31 MB (Mass) Troponin I 0.043 Bedside Glucose 97 108 White Blood Count 9.6 Red Blood Count 2.60 L Hemoglobin 7.2 L Hematocrit 23.7 L Mean Corpuscular 91.2 Volume Mean Corpuscular 27.7 L Hemoglobin Mean Corpuscular 30.4 L Hemoglobin Concen t Red Cell 17.4 H Distribution Width Platelet Count 242 Mean Platelet 12.8 H Volume Immature 0.500 H Granulocytes % Neutrophils % 76.8 Lymphocytes % 13.2 L Monocytes % 6.8 Eosinophils % 2.4 Basophils % 0.3 Nucleated Red 0.0 Blood Cells % Immature 0.050 H Granulocytes # Neutrophils # 7.4 Lymphocytes # 1.3 Monocytes # 0.7 Eosinophils # 0.2 Basophils # 0.0 Nucleated Red 0.0 Blood Cells # Sodium Level 145 H Potassium Level 3.9 Chloride Level 118 H Carbon Dioxide 20 L Level Anion Gap 7 Blood Urea 57 H Nitrogen Creatinine 1.54 H Est Glomerular Filtrat Rate mL/min Glucose Level 98 Calcium Level 8.0 L Test 01/21/19 07:00 01/21/19 08:33 Blood Gas Blood arterial Specimen Source Arterial Blood 01/21/2019 7:22:27 Date Drawn AM Arterial Blood pH 7.387 (Temp corrected) Arterial Blood 35.7 pCO2 (Temp correct) Arterial Blood 65.6 L pO2 (Temp corrected) Arterial Blood 21.0 L HCO3 Arterial Blood -3.6 L Base Excess Arterial Blood 92.3 L Oxygen Saturation Nilson Test N/A Arterial Blood A-Line Gas Puncture Site Arterial 0.7 Blood Carboxyhemo globin Arterial Blood 0.7 Methemoglobin Blood Gas A-a O2 106.4 H Differential Oxyhemoglobin 91.0 L Percent Blood Gas 37.0 Temperature Blood Gas 16.0 Respiration Rate Blood Gas Actual 21 Respiration Rate Blood Gas VENT - AC Modality FiO2 30.0 Blood Gas Tidal 550.0 Volume Blood Gas Low 5.0 PEEP Setting Blood Gas TM Notified Whom Blood Gas 01/21/2019 7:29:11 Notified Time AM Bedside Glucose 109 Medications Medications Current Medications Oxycodone/ Acetaminophen (Percocet (5/ 325)) 1 tab Q6H PRN GTB PAIN LEVEL 6-10 Last administered on 01/20/19at 09:05; Admin Dose 1 TAB; Start 01/19/19 at 20:30 Acetaminophen (Tylenol Tab) 650 mg Q6H PRN PEG MILD PAIN(1-3)OR ELEVATED TEMP; Start 01/19/19 at 20:30 IV Flush (NS 3 ml) 3 ml PER PROTOCOL IV ; Start 01/19/19 at 20:30 Dextrose/Sodium Chloride 1,000 ml @ 100 mls/hr Q10H IV Last administered on 01/21/19at 01:35; Admin Dose 100 MLS/HR; Start 01/20/19 at 02:07 Ondansetron HCl (Zofran Inj) 4 mg Q6H PRN IV NAUSEA AND/OR VOMITING; Start 01/20/19 at 02:30 Albuterol (Ventolin Hfa) 4 puff Q2H RESP THERAPY PRN INH SHORTNESS OF BREATH; Start 01/20/19 at 02:30 Ipratropium [place] (Atrovent Hfa) 4 puff Q2H RESP THERAPY PRN INH SHORTNESS OF BREATH; Start 01/20/19 at 02:30 Pantoprazole (Protonix Iv) 40 mg DAILY@06 IV Last administered on 01/21/19at 05:27; Admin Dose 40 MG; Start 01/20/19 at 06:00 Atenolol (Tenormin) 25 mg DAILY PO Last administered on 01/20/19at 09:04; Admin Dose 25 MG; Start 01/20/19 at 09:00 Digoxin (Digoxin) 0.25 mg DAILY@1300 PO Last administered on 01/20/19at 14:26; Admin Dose 0.25 MG; Start 01/20/19 at 13:00 Furosemide (Lasix) 80 mg DAILY@0600 PO Last administered on 01/20/19at 05:24; Admin Dose 80 MG; Start 01/20/19 at 06:00 Miscellaneous Information 1 ea NOTE XX ; Start 01/20/19 at 02:30 Glucose (Glutose) 15 gm Q15M PRN PO DECREASED GLUCOSE; Start 01/20/19 at 02:30 Glucose (Glutose) 22.5 gm Q15M PRN PO DECREASED GLUCOSE; Start 01/20/19 at 02:30 Dextrose (D50w Syringe) 25 ml Q15M PRN IV DECREASED GLUCOSE; Start 01/20/19 at 02:30 Dextrose (D50w Syringe) 50 ml Q15M PRN IV DECREASED GLUCOSE; Start 01/20/19 at 02:30 Glucagon (Glucagen) 1 mg Q15M PRN IM DECREASED GLUCOSE; Start 01/20/19 at 02:30 Glucose (Glutose) 15 gm Q15M PRN BUCCAL DECREASED GLUCOSE; Start 01/20/19 at 02:30 Miscellaneous Information (Pending [facility] Order For Wound Care) This patient huff... PRN PRN XX WOUND CARE; Start 01/20/19 at 08:30 Morphine Sulfate (morphine) 1 mg Q2H PRN IV breakthrough pain Last administered on 01/21/19at 09:28; Admin Dose 1 MG; Start 01/20/19 at 12:30 Insulin Aspart (Novolog Insulin Pen) NOVOLOG *MILD* ALGORI... Q6 SC ; Start 01/21/19 at 12:00 TWAN ESTEVEZ Jan 21, 2019 10:50
--- NOTE | 2019-01-21 11:10 | CONS ---
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 As stated it our prior notes, he will not be able to tolerate po Xeloda given this cannot be crushed and given through the g tube. We will have to assess if and when he would be a candidate for IV adjuvant chemotherapy #Afib -cards on board. currently off the [facility] drip #DM -continue meds per PMD Thank you for the opportunity to participate in this patients care A total of 40 minutes of face to face time was spent speaking with the patient, of which greater than 50% was spent in counseling and coordination of care and the detailed question and answer session. Consultation Date/Type/Reason Admit Date/Time Jan 19, 2019 at 10:30 Date of Consultation: Jan 21, 2019 Type of Consult oncology Reason for Consultation colon ca Requesting Provider: GEO DELEON Date/Time of Note DATE: 01/21/19 TIME: 10:57 Hx of Present Illness 78 yo male initially admitted 11/19 with septic shock and NSTEMI.. Pt developed chronic respiratory failure and was transferred to [facility]. During his treatment for sepsis, pt was noted to have localized colon cancer. Given he was initially deemed high risk for surgery he had a stent placed to bypass the malignancy obstruction 01/20 pt underwent a Laparoscopic converted to open low anterior resection of the Sigmoid/Rectal adenocarcinoma with end colostomy. Intraoperatively he was noted to also have adhesions. Pt is currently recovering in the ICU Subjective hx not possible: other (pt is lethargic) Eyes: no complaints ENT: no complaints Respiratory: shortness of breath Gastrointestinal: decreased appetite Genitourinary: no complaints Musculoskeletal: back pain, bone/joint pain Skin: no complaints Neurologic: dizziness, headache Endocrine: no complaints Lymphatic: no complaints Psychological: anxiety, depression Past Medical History afib trach dependancy DM Medical History: high cholesterol, hypertension, other (See HPI) Home Meds Active Scripts Pantoprazole (Protonix) 40 Mg Tabec, 40 MG PO BID, #60 TAB 1 Refill Prov:SAIRA GARCIAEEP S. 11/22/18 Reported Medications Calcium Citrate/Vitamin D (Citracal-Vitamin D 200 MG-250) 1 Each Tablet, 1 EACH PO BID, TAB 11/19/18 Ibuprofen* (Ibuprofen*) 600 Mg Tablet, 600 MG PO Q6H PRN for PAIN LEVEL 1-5, TAB 11/19/18 Hydralazine Hcl* (Hydralazine Hcl*) 50 Mg Tablet, 50 MG PO Q6H, #60 TAB 11/19/18 Metformin* (Glucophage*) 500 Mg Tab, 500 MG PO WITH BREAKFAST, #30 TAB 11/19/18 Multivitamins* (Theragran*) 1 Tab Tab, 1 TAB PO DAILY, TAB 11/19/18 Aripiprazole* (Abilify*) 5 Mg Tab, 5 MG PO DAILY, #30 TAB 11/19/18 Diltiazem Hcl* (Cardizem SR*) 120 Mg Cap.sr.12h, 120 MG PO Q12, CAP 11/19/18 Pioglitazone Hcl* (Pioglitazone Hcl*) 30 Mg Tablet, 30 MG PO DAILY, TAB 11/19/18 Escitalopram Oxalate* (Escitalopram Oxalate*) 20 Mg Tablet, 20 MG PO DAILY, #30 TAB 11/19/18 Benazepril Hcl* (Benazepril Hcl*) 20 Mg Tablet, 20 MG PO DAILY, #30 TAB 11/19/18 Tamsulosin Hcl* (Tamsulosin Hcl*) 0.4 Mg Cap.er.24h, 0.4 MG PO HS, CAP 11/19/18 Aspirin Ec (Aspir 81) 81 Mg Tablet.dr, 81 MG PO DAILY, #30 TAB 11/19/18 Loratadine* (Loratadine*) 10 Mg Tablet, 10 MG PO DAILY, #30 TAB 11/19/18 Potassium Chloride* (Potassium Chloride*) 8 Meq Capsule.er, 8 MEQ PO DAILY, CAP 11/19/18 Furosemide* (Furosemide*) 80 Mg Tablet, 80 MG PO DAILY, #30 TAB 11/19/18 Atenolol* (Atenolol*) 50 Mg Tablet, 50 MG PO DAILY, #30 TAB 11/19/18 Digoxin* (Lanoxin*) 0.25 Mg Tablet, 0.25 MG PO DAILY, TAB 11/19/18 Medications Current Medications Oxycodone/ Acetaminophen (Percocet (5/ 325)) 1 tab Q6H PRN GTB PAIN LEVEL 6-10 Last administered on 01/20/19at 09:05; Admin Dose 1 TAB; Start 01/19/19 at 20:30 Acetaminophen (Tylenol Tab) 650 mg Q6H PRN PEG MILD PAIN(1-3)OR ELEVATED TEMP; Start 01/19/19 at 20:30 IV Flush (NS 3 ml) 3 ml PER PROTOCOL IV ; Start 01/19/19 at 20:30 Dextrose/Sodium Chloride 1,000 ml @ 100 mls/hr Q10H IV Last administered on 01/21/19at 01:35; Admin Dose 100 MLS/HR; Start 01/20/19 at 02:07 Ondansetron HCl (Zofran Inj) 4 mg Q6H PRN IV NAUSEA AND/OR VOMITING; Start 01/20/19 at 02:30 Albuterol (Ventolin Hfa) 4 puff Q2H RESP THERAPY PRN INH SHORTNESS OF BREATH; Start 01/20/19 at 02:30 Ipratropium [place]row (Atrovent Hfa) 4 puff Q2H RESP THERAPY PRN INH SHORTNESS OF BREATH; Start 01/20/19 at 02:30 Pantoprazole (Protonix Iv) 40 mg DAILY@06 IV Last administered on 01/21/19at 05:27; Admin Dose 40 MG; Start 01/20/19 at 06:00 Atenolol (Tenormin) 25 mg DAILY PO Last administered on 01/20/19at 09:04; Admin Dose 25 MG; Start 01/20/19 at 09:00 Digoxin (Digoxin) 0.25 mg DAILY@1300 PO Last administered on 01/20/19at 14:26; Admin Dose 0.25 MG; Start 01/20/19 at 13:00 Furosemide (Lasix) 80 mg DAILY@0600 PO Last administered on 01/20/19at 05:24; Admin Dose 80 MG; Start 01/20/19 at 06:00 Miscellaneous Information 1 ea NOTE XX ; Start 01/20/19 at 02:30 Glucose (Glutose) 15 gm Q15M PRN PO DECREASED GLUCOSE; Start 01/20/19 at 02:30 Glucose (Glutose) 22.5 gm Q15M PRN PO DECREASED GLUCOSE; Start 01/20/19 at 02:30 Dextrose (D50w Syringe) 25 ml Q15M PRN IV DECREASED GLUCOSE; Start 01/20/19 at 02:30 Dextrose (D50w Syringe) 50 ml Q15M PRN IV DECREASED GLUCOSE; Start 01/20/19 at 02:30 Glucagon (Glucagen) 1 mg Q15M PRN IM DECREASED GLUCOSE; Start 01/20/19 at 02:30 Glucose (Glutose) 15 gm Q15M PRN BUCCAL DECREASED GLUCOSE; Start 01/20/19 at 02:30 Miscellaneous Information (Pending Santyl Order For Wound Care) This patient huff... PRN PRN XX WOUND CARE; Start 01/20/19 at 08:30 Morphine Sulfate (morphine) 1 mg Q2H PRN IV breakthrough pain Last administered on 01/21/19at 09:28; Admin Dose 1 MG; Start 01/20/19 at 12:30 Insulin Aspart (Novolog Insulin Pen) NOVOLOG *MILD* ALGORI... Q6 SC ; Start 01/21/19 at 12:00 Allergies: Coded Allergies: No Known Allergy (Unverified , 01/20/19) Past Surgical History Past Surgical Hx: other (Tracheostomy, G tube, S/p Colon surgery now ) Social History Alcohol Use: none Smoking Status: Unknown if ever smoked Drug Use: none, other (Unknown) Exam/Review of Systems Exam Vitals Vital Signs Date Temp Pulse Resp B/P (MAP) Pulse Ox O2 O2 Flow FiO2 Time Delivery Rate 01/21/19 83 25 93 40 09:20 01/21/19 104/42 Mechanical 06:00 (62) Ventilator 01/21/19 98.5 04:00 Intake and Output 01/20/19 01/20/19 01/21/19 1515:00 23:00 07:00 IntakeIntake Total 1900 ml 800 ml 400 ml OutputOutput Total 125 ml 389 ml 325 ml BalanceBalance 1775 ml 411 ml 75 ml Constitutional: alert, oriented, distress, frail Psych: anxiety, depression Head: normocephalic Eyes: nl conjunctiva ENMT: nl external ears & nose Neck: other (trach in place) Respiratory: diminished breath sounds, labored breathing Cardiovascular: regular rate and rhythm Gastrointestinal: soft Musculoskeletal: nl extremities to inspection Extremities: normal pulses Results Result Diagram: 01/21/19 0400 01/21/19 0400 Results 24hrs Laboratory Tests Test 01/20/19 14:27 01/20/19 16:18 01/20/19 17:52 01/20/19 20:06 Bedside Glucose 140 117 110 Creatine Kinase 106 Creatine Kinase 1.7 Index Creatinine Kinase 1.76 MB (Mass) Troponin I 0.040 Test 01/21/19 00:26 01/21/19 01:04 01/21/19 04:00 01/21/19 05:26 Creatine Kinase 102 Creatine Kinase 1.3 Index Creatinine Kinase 1.31 MB (Mass) Troponin I 0.043 Bedside Glucose 97 108 White Blood Count 9.6 Red Blood Count 2.60 L Hemoglobin 7.2 L Hematocrit 23.7 L Mean Corpuscular 91.2 Volume Mean Corpuscular 27.7 L Hemoglobin Mean Corpuscular 30.4 L Hemoglobin Concen t Red Cell 17.4 H Distribution Width Platelet Count 242 Mean Platelet 12.8 H Volume Immature 0.500 H Granulocytes % Neutrophils % 76.8 Lymphocytes % 13.2 L Monocytes % 6.8 Eosinophils % 2.4 Basophils % 0.3 Nucleated Red 0.0 Blood Cells % Immature 0.050 H Granulocytes # Neutrophils # 7.4 Lymphocytes # 1.3 Monocytes # 0.7 Eosinophils # 0.2 Basophils # 0.0 Nucleated Red 0.0 Blood Cells # Sodium Level 145 H Potassium Level 3.9 Chloride Level 118 H Carbon Dioxide 20 L Level Anion Gap 7 Blood Urea 57 H Nitrogen Creatinine 1.54 H Est Glomerular Filtrat Rate mL/min Glucose Level 98 Calcium Level 8.0 L Test 01/21/19 07:00 01/21/19 08:33 Blood Gas Blood arterial Specimen Source Arterial Blood 01/21/2019 7:22:27 Date Drawn AM Arterial Blood pH 7.387 (Temp corrected) Arterial Blood 35.7 pCO2 (Temp correct) Arterial Blood 65.6 L pO2 (Temp corrected) Arterial Blood 21.0 L HCO3 Arterial Blood -3.6 L Base Excess Arterial Blood 92.3 L Oxygen Saturation Nilson Test N/A Arterial Blood A-Line Gas Puncture Site Arterial 0.7 Blood Carboxyhemo globin Arterial Blood 0.7 Methemoglobin Blood Gas A-a O2 106.4 H Differential Oxyhemoglobin 91.0 L Percent Blood Gas 37.0 Temperature Blood Gas 16.0 Respiration Rate Blood Gas Actual 21 Respiration Rate Blood Gas VENT - AC Modality FiO2 30.0 Blood Gas Tidal 550.0 Volume Blood Gas Low 5.0 PEEP Setting Blood Gas TM Notified Whom Blood Gas 01/21/2019 7:29:11 Notified Time AM Bedside Glucose 109 Medications Medication Current Medications Oxycodone/ Acetaminophen (Percocet (5/ 325)) 1 tab Q6H PRN GTB PAIN LEVEL 6-10 Last administered on 01/20/19at 09:05; Admin Dose 1 TAB; Start 01/19/19 at 20:30 Acetaminophen (Tylenol Tab) 650 mg Q6H PRN PEG MILD PAIN(1-3)OR ELEVATED TEMP; Start 01/19/19 at 20:30 IV Flush (NS 3 ml) 3 ml PER PROTOCOL IV ; Start 01/19/19 at 20:30 Dextrose/Sodium Chloride 1,000 ml @ 100 mls/hr Q10H IV Last administered on 01/21/19at 01:35; Admin Dose 100 MLS/HR; Start 01/20/19 at 02:07 Ondansetron HCl (Zofran Inj) 4 mg Q6H PRN IV NAUSEA AND/OR VOMITING; Start 12/25 07/11 at 02:30 Albuterol (Ventolin Hfa) 4 puff Q2H RESP THERAPY PRN INH SHORTNESS OF BREATH; Start 01/20/19 at 02:30 Ipratropium [place]row (Atrovent Hfa) 4 puff Q2H RESP THERAPY PRN INH SHORTNESS OF BREATH; Start 01/20/19 at 02:30 Pantoprazole (Protonix Iv) 40 mg DAILY@06 IV Last administered on 01/21/19at 05:27; Admin Dose 40 MG; Start 01/20/19 at 06:00 Atenolol (Tenormin) 25 mg DAILY PO Last administered on 01/20/19at 09:04; Admin Dose 25 MG; Start 01/20/19 at 09:00 Digoxin (Digoxin) 0.25 mg DAILY@1300 PO Last administered on 01/20/19at 14:26; Admin Dose 0.25 MG; Start 01/20/19 at 13:00 Furosemide (Lasix) 80 mg DAILY@0600 PO Last administered on 01/20/19at 05:24; Admin Dose 80 MG; Start 01/20/19 at 06:00 Miscellaneous Information 1 ea NOTE XX ; Start 01/20/19 at 02:30 Glucose (Glutose) 15 gm Q15M PRN PO DECREASED GLUCOSE; Start 01/20/19 at 02:30 Glucose (Glutose) 22.5 gm Q15M PRN PO DECREASED GLUCOSE; Start 01/20/19 at 02:30 Dextrose (D50w Syringe) 25 ml Q15M PRN IV DECREASED GLUCOSE; Start 01/20/19 at 02:30 Dextrose (D50w Syringe) 50 ml Q15M PRN IV DECREASED GLUCOSE; Start 01/20/19 at 02:30 Glucagon (Glucagen) 1 mg Q15M PRN IM DECREASED GLUCOSE; Start 01/20/19 at 02:30 Glucose (Glutose) 15 gm Q15M PRN BUCCAL DECREASED GLUCOSE; Start 01/20/19 at 02:30 Miscellaneous Information (Pending Santyl Order For Wound Care) This patient huff... PRN PRN XX WOUND CARE; Start 01/20/19 at 08:30 Morphine Sulfate (morphine) 1 mg Q2H PRN IV breakthrough pain Last administered on 01/21/19at 09:28; Admin Dose 1 MG; Start 01/20/19 at 12:30 Insulin Aspart (Novolog Insulin Pen) NOVOLOG *MILD* ALGORI... Q6 SC ; Start 01/21/19 at 12:00 EVERT VILLAFANA M.D. Jan 21, 2019 11:09
--- NOTE | 2019-01-21 11:41 | CONS ---
Assessment/Plan Assessment/Plan Assessment/Plan (Daily) 1. acute kidney injury on CKD III due to ATN and prerenal azotemia 2. 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 acute on chronic respiratory failure s/p tracheostomy 4. Atrial fibrillation:rate controlled 5. H/o Diabetes melitus 6. H/O HTN 7. Dysphagia: Status post G-tube 8. UTI with Urine Cx growing Klebsiella ESBL Plan: pt remains on ventilator, Hemodynamically stable, BUN/Cr slightly improving 57/1.54, Na 145- d/c current IVF of D51/2 NS, will start D5W with KCl 10mEQ at 80 cc/hr IV Flagyl stopped, IV abx meropenem for ESBL Klebsiella UTI Renally dose all abx, monitor electrolytes General surgery following will follow up Consultation Date/Type/Reason Admit Date/Time Jan 19, 2019 at 10:30 Initial Consult Date 01/21/19 Type of Consult NEPHROLOGY Requesting Provider: GEO DELEON Date/Time of Note DATE: 01/21/19 TIME: 11:41 24 HR Interval Summary Free Text/Dictation pt remains on ventilator, Hemodynamically stable, BUN/Cr slightly improving Exam/Review of Systems Exam Vitals Vital Signs Date Temp Pulse Resp B/P (MAP) Pulse Ox O2 O2 Flow FiO2 Time Delivery Rate 01/21/19 83 25 93 40 09:20 01/21/19 104/42 Mechanical 06:00 (62) Ventilator 01/21/19 98.5 04:00 Intake and Output 01/20/19 01/20/19 01/21/19 1515:00 23:00 07:00 IntakeIntake Total 1900 ml 800 ml 400 ml OutputOutput Total 125 ml 389 ml 325 ml BalanceBalance 1775 ml 411 ml 75 ml Exam Constitutional: alert, other (oriented x 2 ), + tracheostomy in place Respiratory: congested cough, crackles/rales, diminished breath sounds Cardiovascular: regular rate and rhythm, nl pulses Gastrointestinal: soft, other (abdominal dressing + ) Musculoskeletal: nl extremities to inspection Extremities: normal pulses Neurological: alert, awake, no focal deficits Skin: nl turgor Results Result Diagram: 01/21/19 0400 01/21/19 0400 Results 24hrs Laboratory Tests Test 01/20/19 14:27 01/20/19 16:18 01/20/19 17:52 01/20/19 20:06 Bedside Glucose 140 117 110 Creatine Kinase 106 Creatine Kinase 1.7 Index Creatinine Kinase 1.76 MB (Mass) Troponin I 0.040 Test 01/21/19 00:26 01/21/19 01:04 01/21/19 04:00 01/21/19 05:26 Creatine Kinase 102 Creatine Kinase 1.3 Index Creatinine Kinase 1.31 MB (Mass) Troponin I 0.043 Bedside Glucose 97 108 White Blood Count 9.6 Red Blood Count 2.60 L Hemoglobin 7.2 L Hematocrit 23.7 L Mean Corpuscular 91.2 Volume Mean Corpuscular 27.7 L Hemoglobin Mean Corpuscular 30.4 L Hemoglobin Concen t Red Cell 17.4 H Distribution Width Platelet Count 242 Mean Platelet 12.8 H Volume Immature 0.500 H Granulocytes % Neutrophils % 76.8 Lymphocytes % 13.2 L Monocytes % 6.8 Eosinophils % 2.4 Basophils % 0.3 Nucleated Red 0.0 Blood Cells % Immature 0.050 H Granulocytes # Neutrophils # 7.4 Lymphocytes # 1.3 Monocytes # 0.7 Eosinophils # 0.2 Basophils # 0.0 Nucleated Red 0.0 Blood Cells # Sodium Level 145 H Potassium Level 3.9 Chloride Level 118 H Carbon Dioxide 20 L Level Anion Gap 7 Blood Urea 57 H Nitrogen Creatinine 1.54 H Est Glomerular Filtrat Rate mL/min Glucose Level 98 Calcium Level 8.0 L Test 01/21/19 07:00 01/21/19 08:33 01/21/19 11:39 Blood Gas Blood arterial Specimen Source Arterial Blood 01/21/2019 7:22:27 Date Drawn AM Arterial Blood pH 7.387 (Temp corrected) Arterial Blood 35.7 pCO2 (Temp correct) Arterial Blood 65.6 L pO2 (Temp corrected) Arterial Blood 21.0 L HCO3 Arterial Blood -3.6 L Base Excess Arterial Blood 92.3 L Oxygen Saturation Nilson Test N/A Arterial Blood A-Line Gas Puncture Site Arterial 0.7 Blood Carboxyhemo globin Arterial Blood 0.7 Methemoglobin Blood Gas A-a O2 106.4 H Differential Oxyhemoglobin 91.0 L Percent Blood Gas 37.0 Temperature Blood Gas 16.0 Respiration Rate Blood Gas Actual 21 Respiration Rate Blood Gas VENT - AC Modality FiO2 30.0 Blood Gas Tidal 550.0 Volume Blood Gas Low 5.0 PEEP Setting Blood Gas TM Notified Whom Blood Gas 01/21/2019 7:29:11 Notified Time AM Bedside Glucose 109 111 Medications Medication Current Medications Oxycodone/ Acetaminophen (Percocet (5/ 325)) 1 tab Q6H PRN GTB PAIN LEVEL 6-10 Last administered on 01/20/19at 09:05; Admin Dose 1 TAB; Start 01/19/19 at 20:30 Acetaminophen (Tylenol Tab) 650 mg Q6H PRN PEG MILD PAIN(1-3)OR ELEVATED TEMP; Start 01/19/19 at 20:30 IV Flush (NS 3 ml) 3 ml PER PROTOCOL IV ; Start 01/19/19 at 20:30 Dextrose/Sodium Chloride 1,000 ml @ 100 mls/hr Q10H IV Last administered on 01/21/19at 11:28; Admin Dose 100 MLS/HR; Start 01/20/19 at 02:07 Ondansetron HCl (Zofran Inj) 4 mg Q6H PRN IV NAUSEA AND/OR VOMITING; Start 01/20/19 at 02:30 Albuterol (Ventolin Hfa) 4 puff Q2H RESP THERAPY PRN INH SHORTNESS OF BREATH; Start 01/20/19 at 02:30 Ipratropium [place] (Atrovent Hfa) 4 puff Q2H RESP THERAPY PRN INH SHORTNESS OF BREATH; Start 01/20/19 at 02:30 Pantoprazole (Protonix Iv) 40 mg DAILY@06 IV Last administered on 01/21/19at 05:27; Admin Dose 40 MG; Start 01/20/19 at 06:00 Atenolol (Tenormin) 25 mg DAILY PO Last administered on 01/20/19at 09:04; Admin Dose 25 MG; Start 01/20/19 at 09:00 Digoxin (Digoxin) 0.25 mg DAILY@1300 PO Last administered on 01/20/19at 14:26; Admin Dose 0.25 MG; Start 01/20/19 at 13:00 Furosemide (Lasix) 80 mg DAILY@0600 PO Last administered on 01/20/19at 05:24; Admin Dose 80 MG; Start 01/20/19 at 06:00 Miscellaneous Information 1 ea NOTE XX ; Start 01/20/19 at 02:30 Glucose (Glutose) 15 gm Q15M PRN PO DECREASED GLUCOSE; Start 01/20/19 at 02:30 Glucose (Glutose) 22.5 gm Q15M PRN PO DECREASED GLUCOSE; Start 01/20/19 at 02:30 Dextrose (D50w Syringe) 25 ml Q15M PRN IV DECREASED GLUCOSE; Start 01/20/19 at 02:30 Dextrose (D50w Syringe) 50 ml Q15M PRN IV DECREASED GLUCOSE; Start 01/20/19 at 02:30 Glucagon (Glucagen) 1 mg Q15M PRN IM DECREASED GLUCOSE; Start 01/20/19 at 02:30 Glucose (Glutose) 15 gm Q15M PRN BUCCAL DECREASED GLUCOSE; Start 01/20/19 at 02:30 Miscellaneous Information (Pending Santyl Order For Wound Care) This patient huff... PRN PRN XX WOUND CARE; Start 01/20/19 at 08:30 Morphine Sulfate (morphine) 1 mg Q2H PRN IV breakthrough pain Last administered on 01/21/19at 09:28; Admin Dose 1 MG; Start 01/20/19 at 12:30 Insulin Aspart (Novolog Insulin Pen) NOVOLOG *MILD* ALGORI... Q6 SC ; Start 01/21/19 at 12:00 RENAN HERNANDEZ MD Jan 21, 2019 11:41
[2019-01-21] MEDS: DIGOXIN 0.25 MG TAB PO SCH (12:07)
--- NOTE | 2019-01-21 12:17 | CONS ---
Consult Date/Type/Reason Admit Date/Time Jan 19, 2019 at 10:30 Initial Consult Date 01/21/19 Type of Consult Pulmonary Requesting Provider: GEO DELEON Date/Time of Note DATE: 01/21/19 TIME: 12:13 Subjective Patient remains intermittently agitated however hemodynamically stable. Objective Vital Signs Date Temp Pulse Resp B/P (MAP) Pulse Ox O2 O2 Flow FiO2 Time Delivery Rate 01/21/19 74 17 97 40 11:10 01/21/19 104/42 Mechanical 06:00 (62) Ventilator 01/21/19 98.5 04:00 Intake and Output 01/20/19 01/20/19 01/21/19 1515:00 23:00 07:00 IntakeIntake Total 1900 ml 800 ml 400 ml OutputOutput Total 125 ml 389 ml 325 ml BalanceBalance 1775 ml 411 ml 75 ml Exam PHYSICAL EXAMINATION: GENERAL: Well-nourished, well-developed gentleman, comfortable at rest, no acute distress. VITAL SIGNS: NECK: Trach site clean and intact. CARDIAC: S1, S2, no added sounds or murmurs. CHEST: Diminished air entry bilaterally. ABDOMEN: Soft, nontender. No guarding or rebound. EXTREMITIES: No cyanosis, clubbing or edema. NEUROLOGIC: No focal deficits. Vent Setting Ventilator Support Mode: AC Fraction of Inspired Oxygen pe: 40 Positive End Expiratory Pressu: 5.0 Results/Medications Result Diagram: 01/21/19 0400 01/21/19 0400 Results 24 hrs Laboratory Tests Test 01/20/19 14:27 01/20/19 16:18 01/20/19 17:52 01/20/19 20:06 Bedside Glucose 140 117 110 Creatine Kinase 106 Creatine Kinase 1.7 Index Creatinine Kinase 1.76 MB (Mass) Troponin I 0.040 Test 01/21/19 00:26 01/21/19 01:04 01/21/19 04:00 01/21/19 05:26 Creatine Kinase 102 Creatine Kinase 1.3 Index Creatinine Kinase 1.31 MB (Mass) Troponin I 0.043 Bedside Glucose 97 108 White Blood Count 9.6 Red Blood Count 2.60 L Hemoglobin 7.2 L Hematocrit 23.7 L Mean Corpuscular 91.2 Volume Mean Corpuscular 27.7 L Hemoglobin Mean Corpuscular 30.4 L Hemoglobin Concen t Red Cell 17.4 H Distribution Width Platelet Count 242 Mean Platelet 12.8 H Volume Immature 0.500 H Granulocytes % Neutrophils % 76.8 Lymphocytes % 13.2 L Monocytes % 6.8 Eosinophils % 2.4 Basophils % 0.3 Nucleated Red 0.0 Blood Cells % Immature 0.050 H Granulocytes # Neutrophils # 7.4 Lymphocytes # 1.3 Monocytes # 0.7 Eosinophils # 0.2 Basophils # 0.0 Nucleated Red 0.0 Blood Cells # Sodium Level 145 H Potassium Level 3.9 Chloride Level 118 H Carbon Dioxide 20 L Level Anion Gap 7 Blood Urea 57 H Nitrogen Creatinine 1.54 H Est Glomerular Filtrat Rate mL/min Glucose Level 98 Calcium Level 8.0 L Test 01/21/19 07:00 01/21/19 08:33 01/21/19 11:39 Blood Gas Blood arterial Specimen Source Arterial Blood 01/21/2019 7:22:27 Date Drawn AM Arterial Blood pH 7.387 (Temp corrected) Arterial Blood 35.7 pCO2 (Temp correct) Arterial Blood 65.6 L pO2 (Temp corrected) Arterial Blood 21.0 L HCO3 Arterial Blood -3.6 L Base Excess Arterial Blood 92.3 L Oxygen Saturation Nilson Test N/A Arterial Blood A-Line Gas Puncture Site Arterial 0.7 Blood Carboxyhemo globin Arterial Blood 0.7 Methemoglobin Blood Gas A-a O2 106.4 H Differential Oxyhemoglobin 91.0 L Percent Blood Gas 37.0 Temperature Blood Gas 16.0 Respiration Rate Blood Gas Actual 21 Respiration Rate Blood Gas VENT - AC Modality FiO2 30.0 Blood Gas Tidal 550.0 Volume Blood Gas Low 5.0 PEEP Setting Blood Gas TM Notified Whom Blood Gas 01/21/2019 7:29:11 Notified Time AM Bedside Glucose 109 111 Medications Current Medications Oxycodone/ Acetaminophen (Percocet (5/ 325)) 1 tab Q6H PRN GTB PAIN LEVEL 6-10 Last administered on 01/20/19at 09:05; Admin Dose 1 TAB; Start 01/19/19 at 20:30 Acetaminophen (Tylenol Tab) 650 mg Q6H PRN PEG MILD PAIN(1-3)OR ELEVATED TEMP; Start 01/19/19 at 20:30 IV Flush (NS 3 ml) 3 ml PER PROTOCOL IV ; Start 01/19/19 at 20:30 Dextrose/Sodium Chloride 1,000 ml @ 100 mls/hr Q10H IV Last administered on 01/21/19at 11:28; Admin Dose 100 MLS/HR; Start 01/20/19 at 02:07 Ondansetron HCl (Zofran Inj) 4 mg Q6H PRN IV NAUSEA AND/OR VOMITING; Start 01/20/19 at 02:30 Albuterol (Ventolin Hfa) 4 puff Q2H RESP THERAPY PRN INH SHORTNESS OF BREATH; Start 01/20/19 at 02:30 Ipratropium [place] (Atrovent Hfa) 4 puff Q2H RESP THERAPY PRN INH SHORTNESS OF BREATH; Start 01/20/19 at 02:30 Pantoprazole (Protonix Iv) 40 mg DAILY@06 IV Last administered on 01/21/19at 05:27; Admin Dose 40 MG; Start 01/20/19 at 06:00 Atenolol (Tenormin) 25 mg DAILY PO Last administered on 01/20/19at 09:04; Admin Dose 25 MG; Start 01/20/19 at 09:00 Digoxin (Digoxin) 0.25 mg DAILY@1300 PO Last administered on 01/21/19at 12:07; Admin Dose 0.25 MG; Start 01/20/19 at 13:00 Furosemide (Lasix) 80 mg DAILY@0600 PO Last administered on 01/20/19at 05:24; Admin Dose 80 MG; Start 01/20/19 at 06:00 Miscellaneous Information 1 ea NOTE XX ; Start 01/20/19 at 02:30 Glucose (Glutose) 15 gm Q15M PRN PO DECREASED GLUCOSE; Start 01/20/19 at 02:30 Glucose (Glutose) 22.5 gm Q15M PRN PO DECREASED GLUCOSE; Start 01/20/19 at 02:30 Dextrose (D50w Syringe) 25 ml Q15M PRN IV DECREASED GLUCOSE; Start 01/20/19 at 02:30 Dextrose (D50w Syringe) 50 ml Q15M PRN IV DECREASED GLUCOSE; Start 01/20/19 at 02:30 Glucagon (Glucagen) 1 mg Q15M PRN IM DECREASED GLUCOSE; Start 01/20/19 at 02:30 Glucose (Glutose) 15 gm Q15M PRN BUCCAL DECREASED GLUCOSE; Start 01/20/19 at 02:30 Miscellaneous Information (Pending Santyl Order For Wound Care) This patient huff... PRN PRN XX WOUND CARE; Start 01/20/19 at 08:30 Morphine Sulfate (morphine) 1 mg Q2H PRN IV breakthrough pain Last administered on 01/21/19at 09:28; Admin Dose 1 MG; Start 01/20/19 at 12:30 Insulin Aspart (Novolog Insulin Pen) NOVOLOG *MILD* ALGORI... Q6 SC ; Start 01/21/19 at 12:00 Assessment/Plan Hospital Course (Demo Recall) IMPRESSION 1. Chronic respiratory failure with tracheostomy placed several months ago prior to the surgery patient had been weaned off mechanical ventilation for the past 3 weeks. 2. Sigmoid tumor status post resection 3. 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 Continue mechanical ventilation. 2. Tube feeding. General surgery 3. Physical therapy eval 4. Postoperative antibiotics. 5. DC arterial line 6. Deep vein thrombosis and GI prophylaxis. cc40 mins J[facility] BERG MD, [facility] Jan 21, 2019 12:17
--- NOTE | 2019-01-21 13:32 | RADRPT ---
Vent Rate: 85 bpm RR Interval: 0 msec RI Interval: 206 msec QRS Duration: 144 msec QT Interval: 438 msec QTC Interval: 521 msec P-R-T [place]: 69 - -70 - 52 degrees Normal sinus rhythm Right bundle branch block Left anterior fascicular block Bifascicular block Abnormal ECG Electronically Signed By: Alec Ferro
--- NOTE | 2019-01-21 14:14 | PN ---
Date/Time of Note Date/Time of Note DATE: 01/21/19 TIME: 14:12 Assessment/Plan VTE Prophylaxis Risk score (from [facility])>0 risk: 4 SCD applied (from [facility]): Yes Pharmacological prophylaxis: NA/contraindicated Pharm contraindication: surgical contra Lines/Catheters IV Catheter Type (from [facility]): Mid Line Assessment/Plan Hospital Course 78-year-old male who is trach dependent with a history of diabetes, atrial fibrillation, obstructive uropathy, dysphagia status post G-tube, sigmoid/colon carcinoma status post stent admitted to ICU status post Laparoscopic converted to open low anterior resection with end colostomy, splenic mobilization and a laparoscopic appendectomy. 1. 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 Trach dependent respiratory failure: Currently on a vent -Pulmonary to manage 3. Atrial fibrillation: Continue meds. Adjust as needed. Will hold Cardizem and atenolol given current hypotension 4. Hypotension-resolved -Improved with bolus -Monitor urine output 5. Diabetes: Insulin 6. Acute kidney injury on CKD -Nephrology consultation appreciated 7. UTI -Urine culture is growing Klebsiella pneumonia ESBL -Start meropenem -Follow-up on UA 8. Dysphagia: Status post G-tube Prophylaxis: SCDs Result Diagram: 01/21/19 0400 01/21/19 0400 Results 24hrs Laboratory Tests Test 01/20/19 14:27 01/20/19 16:18 01/20/19 17:52 01/20/19 20:06 Bedside Glucose 140 117 110 Creatine Kinase 106 Creatine Kinase 1.7 Index Creatinine Kinase 1.76 MB (Mass) Troponin I 0.040 Test 01/21/19 00:26 01/21/19 01:04 01/21/19 04:00 01/21/19 05:26 Creatine Kinase 102 Creatine Kinase 1.3 Index Creatinine Kinase 1.31 MB (Mass) Troponin I 0.043 Bedside Glucose 97 108 White Blood Count 9.6 Red Blood Count 2.60 L Hemoglobin 7.2 L Hematocrit 23.7 L Mean Corpuscular 91.2 Volume Mean Corpuscular 27.7 L Hemoglobin Mean Corpuscular 30.4 L Hemoglobin Concen t Red Cell 17.4 H Distribution Width Platelet Count 242 Mean Platelet 12.8 H Volume Immature 0.500 H Granulocytes % Neutrophils % 76.8 Lymphocytes % 13.2 L Monocytes % 6.8 Eosinophils % 2.4 Basophils % 0.3 Nucleated Red 0.0 Blood Cells % Immature 0.050 H Granulocytes # Neutrophils # 7.4 Lymphocytes # 1.3 Monocytes # 0.7 Eosinophils # 0.2 Basophils # 0.0 Nucleated Red 0.0 Blood Cells # Sodium Level 145 H Potassium Level 3.9 Chloride Level 118 H Carbon Dioxide 20 L Level Anion Gap 7 Blood Urea 57 H Nitrogen Creatinine 1.54 H Est Glomerular Filtrat Rate mL/min Glucose Level 98 Calcium Level 8.0 L Test 01/21/19 07:00 01/21/19 08:33 01/21/19 11:39 Blood Gas Blood arterial Specimen Source Arterial Blood 01/21/2019 7:22:27 Date Drawn AM Arterial Blood pH 7.387 (Temp corrected) Arterial Blood 35.7 pCO2 (Temp correct) Arterial Blood 65.6 L pO2 (Temp corrected) Arterial Blood 21.0 L HCO3 Arterial Blood -3.6 L Base Excess Arterial Blood 92.3 L Oxygen Saturation [place] Test N/A Arterial Blood A-Line Gas Puncture Site Arterial 0.7 Blood Carboxyhemo globin Arterial Blood 0.7 Methemoglobin Blood Gas A-a O2 106.4 H Differential Oxyhemoglobin 91.0 L Percent Blood Gas 37.0 Temperature Blood Gas 16.0 Respiration Rate Blood Gas Actual 21 Respiration Rate Blood Gas VENT - AC Modality FiO2 30.0 Blood Gas Tidal 550.0 Volume Blood Gas Low 5.0 PEEP Setting Blood Gas TM Notified Whom Blood Gas 01/21/2019 7:29:11 Notified Time AM Bedside Glucose 109 111 Subjective 24 Hr Interval Summary Subjective hx not possible: pt non-verbal Exam/Review of Systems Exam Vitals Vital Signs Date Temp Pulse Resp B/P (MAP) Pulse Ox O2 O2 Flow FiO2 Time Delivery Rate 01/21/19 76 16 96/56 (69) 98 Mechanical 13:00 Ventilator 01/21/19 30 12:00 01/21/19 98.9 12:00 Intake and Output 01/20/19 01/20/19 01/21/19 1414:59 22:59 06:59 IntakeIntake Total 2000 ml 900 ml 400 ml OutputOutput Total 175 ml 347 ml 367 ml BalanceBalance 1825 ml 553 ml 33 ml Respiratory: clear to auscultation Cardiovascular: regular rate and rhythm Gastrointestinal: soft; No distended Musculoskeletal: nl extremities to inspection Results Results 24hrs Laboratory Tests Test 01/20/19 14:27 01/20/19 16:18 01/20/19 17:52 01/20/19 20:06 Bedside Glucose 140 117 110 Creatine Kinase 106 Creatine Kinase 1.7 Index Creatinine Kinase 1.76 MB (Mass) Troponin I 0.040 Test 01/21/19 00:26 01/21/19 01:04 01/21/19 04:00 01/21/19 05:26 Creatine Kinase 102 Creatine Kinase 1.3 Index Creatinine Kinase 1.31 MB (Mass) Troponin I 0.043 Bedside Glucose 97 108 White Blood Count 9.6 Red Blood Count 2.60 L Hemoglobin 7.2 L Hematocrit 23.7 L Mean Corpuscular 91.2 Volume Mean Corpuscular 27.7 L Hemoglobin Mean Corpuscular 30.4 L Hemoglobin Concen t Red Cell 17.4 H Distribution Width Platelet Count 242 Mean Platelet 12.8 H Volume Immature 0.500 H Granulocytes % Neutrophils % 76.8 Lymphocytes % 13.2 L Monocytes % 6.8 Eosinophils % 2.4 Basophils % 0.3 Nucleated Red 0.0 Blood Cells % Immature 0.050 H Granulocytes # Neutrophils # 7.4 Lymphocytes # 1.3 Monocytes # 0.7 Eosinophils # 0.2 Basophils # 0.0 Nucleated Red 0.0 Blood Cells # Sodium Level 145 H Potassium Level 3.9 Chloride Level 118 H Carbon Dioxide 20 L Level Anion Gap 7 Blood Urea 57 H Nitrogen Creatinine 1.54 H Est Glomerular Filtrat Rate mL/min Glucose Level 98 Calcium Level 8.0 L Test 01/21/19 07:00 01/21/19 08:33 01/21/19 11:39 Blood Gas Blood arterial Specimen Source Arterial Blood 01/21/2019 7:22:27 Date Drawn AM Arterial Blood pH 7.387 (Temp corrected) Arterial Blood 35.7 pCO2 (Temp correct) Arterial Blood 65.6 L pO2 (Temp corrected) Arterial Blood 21.0 L HCO3 Arterial Blood -3.6 L Base Excess Arterial Blood 92.3 L Oxygen Saturation [place] Test N/A Arterial Blood A-Line Gas Puncture Site Arterial 0.7 Blood Carboxyhemo globin Arterial Blood 0.7 Methemoglobin Blood Gas A-a O2 106.4 H Differential Oxyhemoglobin 91.0 L Percent Blood Gas 37.0 Temperature Blood Gas 16.0 Respiration Rate Blood Gas Actual 21 Respiration Rate Blood Gas VENT - AC Modality FiO2 30.0 Blood Gas Tidal 550.0 Volume Blood Gas Low 5.0 PEEP Setting Blood Gas TM Notified Whom Blood Gas 01/21/2019 7:29:11 Notified Time AM Bedside Glucose 109 111 Medications Medication Current Medications Oxycodone/ Acetaminophen (Percocet (5/ 325)) 1 tab Q6H PRN GTB PAIN LEVEL 6-10 Last administered on 01/20/19at 09:05; Admin Dose 1 TAB; Start 01/19/19 at 20:30 Acetaminophen (Tylenol Tab) 650 mg Q6H PRN PEG MILD PAIN(1-3)OR ELEVATED TEMP; Start 01/19/19 at 20:30 IV Flush (NS 3 ml) 3 ml PER PROTOCOL IV ; Start 01/19/19 at 20:30 Ondansetron HCl (Zofran Inj) 4 mg Q6H PRN IV NAUSEA AND/OR VOMITING; Start 01/20/19 at 02:30 Albuterol (Ventolin Hfa) 4 puff Q2H RESP THERAPY PRN INH SHORTNESS OF BREATH; Start 01/20/19 at 02:30 Ipratropium [place] (Atrovent Hfa) 4 puff Q2H RESP THERAPY PRN INH SHORTNESS OF BREATH; Start 01/20/19 at 02:30 Pantoprazole (Protonix Iv) 40 mg DAILY@06 IV Last administered on 01/21/19at 05:27; Admin Dose 40 MG; Start 01/20/19 at 06:00 Atenolol (Tenormin) 25 mg DAILY PO Last administered on 01/20/19at 09:04; Admin Dose 25 MG; Start 01/20/19 at 09:00 Digoxin (Digoxin) 0.25 mg DAILY@1300 PO Last administered on 01/21/19at 12:07; Ad min Dose 0.25 MG; Start 01/20/19 at 13:00 Furosemide (Lasix) 80 mg DAILY@0600 PO Last administered on 01/20/19at 05:24; Admin Dose 80 MG; Start 01/20/19 at 06:00 Miscellaneous Information 1 ea NOTE XX ; Start 01/20/19 at 02:30 Glucose (Glutose) 15 gm Q15M PRN PO DECREASED GLUCOSE; Start 01/20/19 at 02:30 Glucose (Glutose) 22.5 gm Q15M PRN PO DECREASED GLUCOSE; Start 01/20/19 at 02:30 Dextrose (D50w Syringe) 25 ml Q15M PRN IV DECREASED GLUCOSE; Start 01/20/19 at 02:30 Dextrose (D50w Syringe) 50 ml Q15M PRN IV DECREASED GLUCOSE; Start 01/20/19 at 02:30 Glucagon (Glucagen) 1 mg Q15M PRN IM DECREASED GLUCOSE; Start 01/20/19 at 02:30 Glucose (Glutose) 15 gm Q15M PRN BUCCAL DECREASED GLUCOSE; Start 01/20/19 at 02:30 Miscellaneous Information (Pending [facility] Order For Wound Care) This patient huff... PRN PRN XX WOUND CARE; Start 01/20/19 at 08:30 Morphine Sulfate (morphine) 1 mg Q2H PRN IV breakthrough pain Last administered on 01/21/19at 09:28; Admin Dose 1 MG; Start 01/20/19 at 12:30 Insulin Aspart (Novolog Insulin Pen) NOVOLOG *MILD* ALGORI... Q6 SC ; Start 01/21/19 at 12:00 Meropenem/Sodium Chloride 50 ml @ 100 mls/hr Q12 IVPB ; Start 01/21/19 at 21:00 Potassium Chloride 10 meq/ Dextrose 1,005 ml @ 80 mls/hr [id number] IV ; Start 01/21/19 at 15:00 GEO DELEON Jan 21, 2019 14:14
[2019-01-21] MEDS: POTASSIUM CHLORIDE 10 MEQ in DEXTROSE 5% 1,000 ML IV SCH (15:08)
--- NOTE | 2019-01-21 15:11 | RADRPT ---
Vent Rate: 72 bpm RR Interval: 0 msec [place] Interval: 170 msec QRS Duration: 144 msec QT Interval: 406 msec QTC Interval: 444 msec P-R-T [place]: 37 - -67 - 50 degrees Normal sinus rhythm Right bundle branch block Left anterior fascicular block Bifascicular block Abnormal ECG Electronically Signed By: Alec Ferro
--- NOTE | 2019-01-21 15:26 | PN ---
Date/Time of Note Date/Time of Note DATE: 01/21/19 TIME: 15:21 Assessment/Plan Lines/Catheters IV Catheter Type (from [facility]rs[facility]): Mid Line Assessment/Plan Chief Complaint/Hosp Course 1. Sigmoid/rectal adenocarcinoma with obstruction, status post stent and significant adhesions, colorectal bleed with anemia: Status post laparoscopic converted to open low anterior resection with end colostomy and laparoscopic appendectomy 01/19/19 -Continue n.p.o. for now -ambulate as able -ice pack to abdominal wall -Drain -Pain management -Close monitoring 2.Leukocytosis: Resolved 3. Hypochromic anemia: Some blood noted in ostomy bag; drop in H&H -Monitor for now and transfuse as needed 4. Mild hypernatremia: Improved -Judicious fluid management 5. VDRF: Mild bibasilar atelectasis versus airspace disease -Pulmonary toilet -vap prevention 6. Dysphagia status post PEG tube -Eventual tube feed resumption as above 7. SIMI: -Limit nephrotoxic meds -Renally dose meds -Per renal -Judicious fluids Thank you. Patient seen and examined in collaboration with Dr. Srini Rose. Subjective 24 Hr Interval Summary Hypotension improved. + Flatus per ostomy. Some bleeding noted per ostomy. No fevers, labored breathing, congested cough, arrhythmias, nausea, vomiting, diarrhea, dysuria/hematuria. Exam/Review of Systems Vital Signs Vitals Vital Signs Date Temp Pulse Resp B/P (MAP) Pulse Ox O2 O2 Flow FiO2 Time Delivery Rate 01/21/19 76 17 98/56 (70) 96 Mechanical 14:00 Ventilator 01/21/19 40 13:05 01/21/19 98.9 12:00 Intake and Output 01/20/19 01/20/19 01/21/19 1515:00 23:00 07:00 IntakeIntake Total 1900 ml 800 ml 500 ml OutputOutput Total 125 ml 389 ml 325 ml BalanceBalance 1775 ml 411 ml 175 ml Exam Free Text/Dictation Constitutional: alert; No oriented Psych: confusion Head: normocephalic, atraumatic Eyes: nl conjunctiva, nl lids, nl sclera ENMT: nl external ears & nose, mucosa pink and moist; No nl lips & teeth (Edentulous-bottom) Neck: supple, non-tender, other (Tracheostomy) Respiratory: normal air movement; No congested cough, No labored breathing Cardiovascular: regular rate and rhythm (Sinus rhythm); No edema Gastrointestinal: soft, distended (Minimal), other (Incision sites: (Midline: Staple line clean with minimal serosanguineous drainage); ELIUD drain serosanguineous; colostomy: Moist, + flatus) Genitourinary - Male: nl penis, nl scrotum, other ([place]) Musculoskeletal: nl extremities to inspection Extremities: normal pulses, pitting pedal edema Neurological: confused; No nl mental status, No nl speech, No nl strength (Generalized weakness) Skin: No rash or lesions Results Result Diagram: 01/21/1939901/21/19399 TRACY FERREIRA NP Jan 21, 2019 15:26
[2019-01-21] MEDS: LORAZEPAM 2 MG INJ IV PRN (18:11)
[2019-01-21] MEDS: MEROPENEM 1 GM/50ML(PMX) 50 ML IVPB SCH (21:40)
[2019-01-22] VITALS (34 sets, daily range): BP systolic 86–139; BP diastolic 48–78; PULSE 58–92; RESP 16–27
[2019-01-22] MEDS: LORAZEPAM 2 MG INJ IV PRN ×3 (00:45→16:41)
[2019-01-22] MEDS: POTASSIUM CHLORIDE 10 MEQ in DEXTROSE 5% 1,000 ML IV SCH ×2 (05:01→17:22)
[2019-01-22] MEDS: PANTOPRAZOLE 40 MG INJ IV SCH (05:43)
[2019-01-22] MEDS: FUROSEMIDE 40 MG TAB PO SCH (05:46)
[2019-01-22] MEDS: INSULIN ASPART [NOVOLOG] 3 ML PEN SC SCH ×4 (05:47→17:30)
[2019-01-22] MEDS: ATENOLOL 50 MG TAB PO SCH (09:44)
[2019-01-22] MEDS: MEROPENEM 1 GM/50ML(PMX) 50 ML IVPB SCH ×2 (09:45→21:42)
--- NOTE | 2019-01-22 10:43 | CONS ---
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 As stated it our prior notes, he will not be able to tolerate po Xeloda given this cannot be crushed and given through the g tube. We will have to assess if and when he would be a candidate for IV adjuvant chemotherapy #Afib -cards on board. currently off cardizem drip #DM -continue meds per PMD # Anemia - spone unit PRBC-Hgb 8.0 Consultation Date/Type/Reason Admit Date/Time Jan 19, 2019 at 10:30 Initial Consult Date 01/21/19 Type of Consult Oncology Reason for Consultation Sigmoid Colon ca Requesting Provider: GEO DELEON Date/Time of Note DATE: 01/22/19 TIME: 10:42 24 HR Interval Summary Free Text/Dictation resting; seems comfortable on supplement oxygen no new events reported last night Subjective hx not possible: pt non-verbal Constitutional: requiring IVF, requiring O2 Exam/Review of Systems Exam Vitals Vital Signs Date Temp Pulse Resp B/P (MAP) Pulse Ox O2 O2 Flow FiO2 Time Delivery Rate 01/22/19 81 18 116/65 100 Mechanical 06:00 (82) Ventilator Trach Collar 01/22/19 40 05:30 01/22/19 99.8 04:00 Intake and Output 01/21/19 01/21/19 01/22/19 1515:00 23:00 07:00 IntakeIntake Total 875 ml 690 ml 560 ml OutputOutput Total 375 ml 135 ml 50 ml BalanceBalance 500 ml 555 ml 510 ml Constitutional: alert, non-verbal, frail Psych: nl mood/affect Eyes: nl lids, nl sclera ENMT: nl external ears & nose Neck: non-tender, other (trach intact) Respiratory: diminished breath sounds (bilaterally at bases) Cardiovascular: nl pulses, other (s1s2) Gastrointestinal: soft, other (gt intact) Musculoskeletal: muscle weakness, range of motion Extremities: edema Neurological: confused Lymph: nontender Results Result Diagram: 01/22/19 0621 01/22/19 0621 Results 24hrs Laboratory Tests Test 01/21/19 11:39 01/21/19 15:00 01/21/19 18:12 01/22/19 00:40 Bedside Glucose 111 104 82 Urine Color YELLOW Urine Clarity CLOUDY A Urine pH 5.0 Urine Specific 1.013 [place] Urine Ketones NEGATIVE Urine Nitrite NEGATIVE Urine Bilirubin NEGATIVE Urine Urobilinogen NEGATIVE Urine Leukocyte 2+ H Esterase Urine Microscopic 6 H RBC Urine Microscopic 42 H WBC Urine Amorphous FEW A Crystals Urine Bacteria FEW A Urine Hemoglobin 1+ H Urine Glucose NEGATIVE Urine Total Protein 1+ H Test 01/22/19 05:14 01/22/19 05:47 01/22/19 06:21 Lab Scanned Report BLOOD TRANSFUSION Bedside Glucose 91 White Blood Count 8.7 Red Blood Count 2.88 L Hemoglobin 8.0 L Hematocrit 26.8 L Mean Corpuscular 93.1 Volume Mean Corpuscular 27.8 L Hemoglobin Mean Corpuscular 29.9 L Hemoglobin Concent Red Cell 16.7 H Distribution Width Platelet Count 225 Mean Platelet 11.9 H Volume Immature 0.300 Granulocytes % Neutrophils % 78.1 H Lymphocytes % 11.1 L Monocytes % 7.2 Eosinophils % 3.1 Basophils % 0.2 Nucleated Red Blood 0.0 Cells % Immature 0.030 Granulocytes # Neutrophils # 6.8 Lymphocytes # 1.0 Monocytes # 0.6 Eosinophils # 0.3 Basophils # 0.0 Nucleated Red Blood 0.0 Cells # Sodium Level 145 H Potassium Level 4.0 Chloride Level 117 H Carbon Dioxide 20 L Level Anion Gap 8 Blood Urea Nitrogen 39 #H Creatinine 1.35 H Est Glomerular Filtrat Rate mL/min Glucose Level 86 Calcium Level 8.4 Magnesium Level 1.7 Medications Medication Current Medications Oxycodone/ Acetaminophen (Percocet (5/ 325)) 1 tab Q6H PRN GTB PAIN LEVEL 6-10 Last administered on 01/20/19at 09:05; Admin Dose 1 TAB; Start 01/19/19 at 20:30 Acetaminophen (Tylenol Tab) 650 mg Q6H PRN PEG MILD PAIN(1-3)OR ELEVATED TEMP; Start 01/19/19 at 20:30 IV Flush (NS 3 ml) 3 ml PER PROTOCOL IV ; Start 01/19/19 at 20:30 Ondansetron HCl (Zofran Inj) 4 mg Q6H PRN IV NAUSEA AND/OR VOMITING; Start 01/20/19 at 02:30 Albuterol (Ventolin Hfa) 4 puff Q2H RESP THERAPY PRN INH SHORTNESS OF BREATH; Start 01/20/19 at 02:30 Ipratropium [place] (Atrovent Hfa) 4 puff Q2H RESP THERAPY PRN INH SHORTNESS OF BREATH; Start 01/20/19 at 02:30 Pantoprazole (Protonix Iv) 40 mg DAILY@06 IV Last administered on 01/22/19at 05:43; Admin Dose 40 MG; Start 01/20/19 at 06:00 Atenolol (Tenormin) 25 mg DAILY PO Last administered on 01/22/19at 09:44; Admin Dose 25 MG; Start 01/20/19 at 09:00 Digoxin (Digoxin) 0.25 mg DAILY@1300 PO Last administered on 01/21/19at 12:07; Admin Dose 0.25 MG; Start 01/20/19 at 13:00 Furosemide (Lasix) 80 mg DAILY@0600 PO Last administered on 01/22/19at 05:46; Admin Dose 80 MG; Start 01/20/19 at 06:00 Miscellaneous Information 1 ea NOTE XX ; Start 01/20/19 at 02:30 Glucose (Glutose) 15 gm Q15M PRN PO DECREASED GLUCOSE; Start 01/20/19 at 02:30 Glucose (Glutose) 22.5 gm Q15M PRN PO DECREASED GLUCOSE; Start 01/20/19 at 02:30 Dextrose (D50w Syringe) 25 ml Q15M PRN IV DECREASED GLUCOSE; Start 01/20/19 at 02:30 Dextrose (D50w Syringe) 50 ml Q15M PRN IV DECREASED GLUCOSE; Start 01/20/19 at 02:30 Glucagon (Glucagen) 1 mg Q15M PRN IM DECREASED GLUCOSE; Start 01/20/19 at 02:30 Glucose (Glutose) 15 gm Q15M PRN BUCCAL DECREASED GLUCOSE; Start 01/20/19 at 02:30 Miscellaneous Information (Pending [facility] Order For Wound Care) This patient huff... PRN PRN XX WOUND CARE; Start 01/20/19 at 08:30 Morphine Sulfate (morphine) 1 mg Q2H PRN IV breakthrough pain Last administered on 01/21/19at 17:54; Admin Dose 1 MG; Start 01/20/19 at 12:30 Insulin Aspart (Novolog Insulin Pen) NOVOLOG *MILD* ALGORI... Q6 SC ; Start 01/21/19 at 12:00 Meropenem/Sodium Chloride 50 ml @ 100 mls/hr Q12 IVPB Last administered on 01/22/19at 09:45; Admin Dose 100 MLS/HR; Start 01/21/19 at 21:00 Potassium Chloride 10 meq/ Dextrose 1,005 ml @ 80 mls/hr [id number] IV Last administered on 01/22/19at 05:01; Admin Dose 80 MLS/HR; Start 01/21/19 at 15:00 Lorazepam (Ativan) 1 mg Q6H PRN IV AGITATION Last administered on 01/22/19at 10:00; Admin Dose 1 MG; Start 01/21/19 at 18:00 DORIAN MOSS Jan 22, 2019 10:43
--- NOTE | 2019-01-22 12:06 | CONS ---
Consult Date/Type/Reason Admit Date/Time Jan 19, 2019 at 10:30 Initial Consult Date 01/21/19 Type of Consultation: Pulm/CC Requesting Provider: GEO DELEON Date/Time of Note DATE: 01/22/19 TIME: 12:01 Subjective No events. On vent. A bit somnolent this am. Objective Vitals Vital Signs Date Temp Pulse Resp B/P (MAP) Pulse Ox O2 O2 Flow FiO2 Time Delivery Rate 01/22/19 67 08:00 01/22/19 40 08:00 01/22/19 18 116/65 100 Mechanical 06:00 (82) Ventilator Trach Collar 01/22/19 99.8 04:00 Intake and Output 01/21/19 01/21/19 01/22/19 1515:00 23:00 07:00 IntakeIntake Total 875 ml 690 ml 560 ml OutputOutput Total 375 ml 135 ml 50 ml BalanceBalance 500 ml 555 ml 510 ml Exam NECK: Trach site clean and intact. CARDIAC: S1, S2, no added sounds or murmurs. CHEST: Diminished air entry bilaterally. ABDOMEN: Soft, nontender. No guarding or rebound. Wound clean and dry. EXTREMITIES: No cyanosis, clubbing or edema. NEUROLOGIC: No focal deficits. Results/Medications Result Diagram: 01/22/1962001/22/19 06 Results 24 hrs Laboratory Tests Test 01/21/19 15:00 01/21/19 18:12 01/22/19 00:40 01/22/19 05:14 Urine Color YELLOW Urine Clarity CLOUDY A Urine pH 5.0 Urine Specific 1.013 [place] Urine Ketones NEGATIVE Urine Nitrite NEGATIVE Urine Bilirubin NEGATIVE Urine Urobilinogen NEGATIVE Urine Leukocyte 2+ H Esterase Urine Microscopic 6 H RBC Urine Microscopic 42 H WBC Urine Amorphous FEW A Crystals Urine Bacteria FEW A Urine Hemoglobin 1+ H Urine Glucose NEGATIVE Urine Total Protein 1+ H Bedside Glucose 104 82 Lab Scanned Report BLOOD TRANSFUSION Test 01/22/19 05:47 01/22/19 06:21 Bedside Glucose 91 White Blood Count 8.7 Red Blood Count 2.88 L Hemoglobin 8.0 L Hematocrit 26.8 L Mean Corpuscular 93.1 Volume Mean Corpuscular 27.8 L Hemoglobin Mean Corpuscular 29.9 L Hemoglobin Concent Red Cell 16.7 H Distribution Width Platelet Count 225 Mean Platelet 11.9 H Volume Immature 0.300 Granulocytes % Neutrophils % 78.1 H Lymphocytes % 11.1 L Monocytes % 7.2 Eosinophils % 3.1 Basophils % 0.2 Nucleated Red Blood 0.0 Cells % Immature 0.030 Granulocytes # Neutrophils # 6.8 Lymphocytes # 1.0 Monocytes # 0.6 Eosinophils # 0.3 Basophils # 0.0 Nucleated Red Blood 0.0 Cells # Sodium Level 145 H Potassium Level 4.0 Chloride Level 117 H Carbon Dioxide 20 L Level Anion Gap 8 Blood Urea Nitrogen 39 #H Creatinine 1.35 H Est Glomerular Filtrat Rate mL/min Glucose Level 86 Calcium Level 8.4 Magnesium Level 1.7 Home Meds Active Scripts Pantoprazole (Protonix) 40 Mg Tabec, 40 MG PO BID, #60 TAB 1 Refill Prov:NAYANA GARCIA. 11/22/18 Reported Medications Calcium Citrate/Vitamin D (Citracal-Vitamin D 200 MG-250) 1 Each Tablet, 1 EACH PO BID, TAB 11/19/18 Ibuprofen* (Ibuprofen*) 600 Mg Tablet, 600 MG PO Q6H PRN for PAIN LEVEL 1-5, TAB 11/19/18 Hydralazine Hcl* (Hydralazine Hcl*) 50 Mg Tablet, 50 MG PO Q6H, #60 TAB 11/19/18 Metformin* (Glucophage*) 500 Mg Tab, 500 MG PO WITH BREAKFAST, #30 TAB 11/19/18 Multivitamins* (Theragran*) 1 Tab Tab, 1 TAB PO DAILY, TAB 11/19/18 Aripiprazole* (Abilify*) 5 Mg Tab, 5 MG PO DAILY, #30 TAB 11/19/18 Diltiazem Hcl* (Cardizem SR*) 120 Mg Cap.sr.12h, 120 MG PO Q12, CAP 11/19/18 Pioglitazone Hcl* (Pioglitazone Hcl*) 30 Mg Tablet, 30 MG PO DAILY, TAB 11/19/18 Escitalopram Oxalate* (Escitalopram Oxalate*) 20 Mg Tablet, 20 MG PO DAILY, #30 TAB 11/19/18 Benazepril Hcl* (Benazepril Hcl*) 20 Mg Tablet, 20 MG PO DAILY, #30 TAB 11/19/18 Tamsulosin Hcl* (Tamsulosin Hcl*) 0.4 Mg Cap.er.24h, 0.4 MG PO HS, CAP 11/19/18 Aspirin Ec (Aspir 81) 81 Mg Tablet.dr, 81 MG PO DAILY, #30 TAB 11/19/18 Loratadine* (Loratadine*) 10 Mg Tablet, 10 MG PO DAILY, #30 TAB 11/19/18 Potassium Chloride* (Potassium Chloride*) 8 Meq Capsule.er, 8 MEQ PO DAILY, CAP 11/19/18 Furosemide* (Furosemide*) 80 Mg Tablet, 80 MG PO DAILY, #30 TAB 11/19/18 Atenolol* (Atenolol*) 50 Mg Tablet, 50 MG PO DAILY, #30 TAB 11/19/18 Digoxin* (Lanoxin*) 0.25 Mg Tablet, 0.25 MG PO DAILY, TAB 11/19/18 Medications Current Medications Oxycodone/ Acetaminophen (Percocet (5/ 325)) 1 tab Q6H PRN GTB PAIN LEVEL 6-10 Last administered on 01/20/19at 09:05; Admin Dose 1 TAB; Start 01/19/19 at 20:30 Acetaminophen (Tylenol Tab) 650 mg Q6H PRN PEG MILD PAIN(1-3)OR ELEVATED TEMP; Start 01/19/19 at 20:30 IV Flush (NS 3 ml) 3 ml PER PROTOCOL IV ; Start 01/19/19 at 20:30 Ondansetron HCl (Zofran Inj) 4 mg Q6H PRN IV NAUSEA AND/OR VOMITING; Start 01/20/19 at 02:30 Albuterol (Ventolin Hfa) 4 puff Q2H RESP THERAPY PRN INH SHORTNESS OF BREATH; Start 01/20/19 at 02:30 Ipratropium [place] (Atrovent Hfa) 4 puff Q2H RESP THERAPY PRN INH SHORTNESS OF BREATH; Start 01/20/19 at 02:30 Pantoprazole (Protonix Iv) 40 mg DAILY@06 IV Last administered on 01/22/19at 05:43; Admin Dose 40 MG; Start 01/20/19 at 06:00 Atenolol (Tenormin) 25 mg DAILY PO Last administered on 01/22/19at 09:44; Admin Dose 25 MG; Start 01/20/19 at 09:00 Digoxin (Digoxin) 0.25 mg DAILY@1300 PO Last administered on 01/21/19at 12:07; Admin Dose 0.25 MG; Start 01/20/19 at 13:00 Furosemide (Lasix) 80 mg DAILY@0600 PO Last administered on 01/22/19at 05:46; Admin Dose 80 MG; Start 01/20/19 at 06:00 Miscellaneous Information 1 ea NOTE XX ; Start 01/20/19 at 02:30 Glucose (Glutose) 15 gm Q15M PRN PO DECREASED GLUCOSE; Start 01/20/19 at 02:30 Glucose (Glutose) 22.5 gm Q15M PRN PO DECREASED GLUCOSE; Start 01/20/19 at 02:30 Dextrose (D50w Syringe) 25 ml Q15M PRN IV DECREASED GLUCOSE; Start 01/20/19 at 02:30 Dextrose (D50w Syringe) 50 ml Q15M PRN IV DECREASED GLUCOSE; Start 01/20/19 at 02:30 Glucagon (Glucagen) 1 mg Q15M PRN IM DECREASED GLUCOSE; Start 01/20/19 at 02:30 Glucose (Glutose) 15 gm Q15M PRN BUCCAL DECREASED GLUCOSE; Start 01/20/19 at 02:30 Miscellaneous Information (Pending [facility] Order For Wound Care) This patient huff... PRN PRN XX WOUND CARE; Start 01/20/19 at 08:30 Morphine Sulfate (morphine) 1 mg Q2H PRN IV breakthrough pain Last administered on 01/21/19at 17:54; Admin Dose 1 MG; Start 01/20/19 at 12:30 Insulin Aspart (Novolog Insulin Pen) NOVOLOG *MILD* ALGORI... Q6 SC ; Start 01/21/19 at 12:00 Meropenem/Sodium Chloride 50 ml @ 100 mls/hr Q12 IVPB Last administered on 01/22/19at 09:45; Admin Dose 100 MLS/HR; Start 01/21/19 at 21:00 Potassium Chloride 10 meq/ Dextrose 1,005 ml @ 80 mls/hr [id number] IV Last administered on 01/22/19at 05:01; Admin Dose 80 MLS/HR; Start 01/21/19 at 15:00 Lorazepam (Ativan) 1 mg Q6H PRN IV AGITATION Last administered on 01/22/19at 10:00; Admin Dose 1 MG; Start 01/21/19 at 18:00 Assessment/Plan Assessment/Plan (Daily) IMP: 1. Chronic respiratory failure with tracheostomy placed several months ago prior to the surgery patient had been weaned off mechanical ventilation for the past 3 weeks. 2. Sigmoid tumor status post resection 3. 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 Azotemia RECS: 1. Continue mechanical ventilation. 2. Will wean to trach collar once more awake 3. At that time, may resume PMV trials for phonation 4. Follow-up pathology cc40 mins KATHY HUTCHINSON MD Jan 22, 2019 12:06
--- NOTE | 2019-01-22 12:08 | PN ---
Date/Time of Note Date/Time of Note DATE: 01/22/19 TIME: 12:07 Assessment/Plan VTE Prophylaxis Risk score (from Ns)>0 risk: 9 SCD applied (from Ns): Yes Pharmacological prophylaxis: NA/contraindicated Pharm contraindication: surgical contra Lines/Catheters IV C[facility]ter Type [facility]from [facility]): Peripheral IV Urinary Cath still in place: No Assessment/Plan Hospital Course 78-year-old male who is trach dependent with a history of diabetes, atrial fibrillation, obstructive uropathy, dysphagia status post G-tube, sigmoid/colon carcinoma status post stent admitted to ICU status post Laparoscopic converted to open low anterior resection with end colostomy, splenic mobilization and a laparoscopic appendectomy. 1. 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 Trach dependent respiratory failure: Currently on a vent -Pulmonary to manage 3. Atrial fibrillation: Continue meds. Adjust as needed. Will hold Cardizem and atenolol given current hypotension 4. Hypotension-resolved -Improved with bolus -Monitor urine output 5. Diabetes: Insulin 6. Acute kidney injury on CKD -Nephrology consultation appreciated 7. UTI -Urine culture is growing Klebsiella pneumonia ESBL -Continue meropenem -UA is positive 8. Dysphagia: Status post G-tube Prophylaxis: SCDs Result Diagram: 01/22/1962001/22/19 06 Results 24hrs Laboratory Tests Test 01/21/19 15:00 01/21/19 18:12 01/22/19 00:40 01/22/19 05:14 Urine Color YELLOW Urine Clarity CLOUDY A Urine pH 5.0 Urine Specific 1.013 [place] Urine Ketones NEGATIVE Urine Nitrite NEGATIVE Urine Bilirubin NEGATIVE Urine Urobilinogen NEGATIVE Urine Leukocyte 2+ H Esterase Urine Microscopic 6 H RBC Urine Microscopic 42 H WBC Urine Amorphous FEW A Crystals Urine Bacteria FEW A Urine Hemoglobin 1+ H Urine Glucose NEGATIVE Urine Total Protein 1+ H Bedside Glucose 104 82 Lab Scanned Report BLOOD TRANSFUSION Test 01/22/19 05:47 01/22/19 06:21 Bedside Glucose 91 White Blood Count 8.7 Red Blood Count 2.88 L Hemoglobin 8.0 L Hematocrit 26.8 L Mean Corpuscular 93.1 Volume Mean Corpuscular 27.8 L Hemoglobin Mean Corpuscular 29.9 L Hemoglobin Concent Red Cell 16.7 H Distribution Width Platelet Count 225 Mean Platelet 11.9 H Volume Immature 0.300 Granulocytes % Neutrophils % 78.1 H Lymphocytes % 11.1 L Monocytes % 7.2 Eosinophils % 3.1 Basophils % 0.2 Nucleated Red Blood 0.0 Cells % Immature 0.030 Granulocytes # Neutrophils # 6.8 Lymphocytes # 1.0 Monocytes # 0.6 Eosinophils # 0.3 Basophils # 0.0 Nucleated Red Blood 0.0 Cells # Sodium Level 145 H Potassium Level 4.0 Chloride Level 117 H Carbon Dioxide 20 L Level Anion Gap 8 Blood Urea Nitrogen 39 #H Creatinine 1.35 H Est Glomerular Filtrat Rate mL/min Glucose Level 86 Calcium Level 8.4 Magnesium Level 1.7 Subjective 24 Hr Interval Summary Subjective hx not possible: pt non-verbal Exam/Review of Systems Exam Vitals Vital Signs Date Temp Pulse Resp B/P (MAP) Pulse Ox O2 O2 Flow FiO2 Time Delivery Rate 01/22/19 67 08:00 01/22/19 40 08:00 01/22/19 18 116/65 100 Mechanical 06:00 (82) Ventilator Trach Collar 01/22/19 99.8 04:00 Intake and Output 01/21/19 01/21/19 01/22/19 1515:00 23:00 07:00 IntakeIntake Total 875 ml 690 ml 560 ml OutputOutput Total 375 ml 135 ml 50 ml BalanceBalance 500 ml 555 ml 510 ml Constitutional: non-verbal Respiratory: clear to auscultation Cardiovascular: regular rate and rhythm Gastrointestinal: soft; No distended Musculoskeletal: nl extremities to inspection Results Results 24hrs Laboratory Tests Test 01/21/19 15:00 01/21/19 18:12 01/22/19 00:40 01/22/19 05:14 Urine Color YELLOW Urine Clarity CLOUDY A Urine pH 5.0 Urine Specific 1.013 [place] Urine Ketones NEGATIVE Urine Nitrite NEGATIVE Urine Bilirubin NEGATIVE Urine Urobilinogen NEGATIVE Urine Leukocyte 2+ H Esterase Urine Microscopic 6 H RBC Urine Microscopic 42 H WBC Urine Amorphous FEW A Crystals Urine Bacteria FEW A Urine Hemoglobin 1+ H Urine Glucose NEGATIVE Urine Total Protein 1+ H Bedside Glucose 104 82 Lab Scanned Report BLOOD TRANSFUSION Test 01/22/19 05:47 01/22/19 06:21 Bedside Glucose 91 White Blood Count 8.7 Red Blood Count 2.88 L Hemoglobin 8.0 L Hematocrit 26.8 L Mean Corpuscular 93.1 Volume Mean Corpuscular 27.8 L Hemoglobin Mean Corpuscular 29.9 L Hemoglobin Concent Red Cell 16.7 H Distribution Width Platelet Count 225 Mean Platelet 11.9 H Volume Immature 0.300 Granulocytes % Neutrophils % 78.1 H Lymphocytes % 11.1 L Monocytes % 7.2 Eosinophils % 3.1 Basophils % 0.2 Nucleated Red Blood 0.0 Cells % Immature 0.030 Granulocytes # Neutrophils # 6.8 Lymphocytes # 1.0 Monocytes # 0.6 Eosinophils # 0.3 Basophils # 0.0 Nucleated Red Blood 0.0 Cells # Sodium Level 145 H Potassium Level 4.0 Chloride Level 117 H Carbon Dioxide 20 L Level Anion Gap 8 Blood Urea Nitrogen 39 #H Creatinine 1.35 H Est Glomerular Filtrat Rate mL/min Glucose Level 86 Calcium Level 8.4 Magnesium Level 1.7 Medications Medication Current Medications Oxycodone/ Acetaminophen (Percocet (5/ 325)) 1 tab Q6H PRN GTB PAIN LEVEL 6-10 Last administered on 01/20/19at 09:05; Admin Dose 1 TAB; Start 01/19/19 at 20:30 Acetaminophen (Tylenol Tab) 650 mg Q6H PRN PEG MILD PAIN(1-3)OR ELEVATED TEMP; Start 01/19/19 at 20:30 IV Flush (NS 3 ml) 3 ml PER PROTOCOL IV ; Start 01/19/19 at 20:30 Ondansetron HCl (Zofran Inj) 4 mg Q6H PRN IV NAUSEA AND/OR VOMITING; Start 01/20/19 at 02:30 Albuterol (Ventolin Hfa) 4 puff Q2H RESP THERAPY PRN INH SHORTNESS OF BREATH; Start 01/20/19 at 02:30 Ipratropium [place] (Atrovent Hfa) 4 puff Q2H RESP THERAPY PRN INH SHORTNESS OF BREATH; Start 01/20/19 at 02:30 Pantoprazole (Protonix Iv) 40 mg DAILY@06 IV Last administered on 01/22/19at 05:43; Admin Dose 40 MG; Start 01/20/19 at 06:00 Atenolol (Tenormin) 25 mg DAILY PO Last administered on 01/22/19at 09:44; Admin Dose 25 MG; Start 01/20/19 at 09:00 Digoxin (Digoxin) 0.25 mg DAILY@1300 PO Last administered on 01/21/19at 12:07; Admin Dose 0.25 MG; Start 01/20/19 at 13:00 Furosemide (Lasix) 80 mg DAILY@0600 PO Last administered on 01/22/19at 05:46; Admin Dose 80 MG; Start 01/20/19 at 06:00 Miscellaneous Information 1 ea NOTE XX ; Start 01/20/19 at 02:30 Glucose (Glutose) 15 gm Q15M PRN PO DECREASED GLUCOSE; Start 01/20/19 at 02:30 Glucose (Glutose) 22.5 gm Q15M PRN PO DECREASED GLUCOSE; Start 01/20/19 at 02:30 Dextrose (D50w Syringe) 25 ml Q15M PRN IV DECREASED GLUCOSE; Start 01/20/19 at 02:30 Dextrose (D50w Syringe) 50 ml Q15M PRN IV DECREASED GLUCOSE; Start 01/20/19 at 02:30 Glucagon (Glucagen) 1 mg Q15M PRN IM DECREASED GLUCOSE; Start 01/20/19 at 02:30 Glucose (Glutose) 15 gm Q15M PRN BUCCAL DECREASED GLUCOSE; Start 01/20/19 at 02:30 [facility] This patient huff... PRN PRN XX WOUND CARE; Start 01/20/19 at 08:30 Morphine Sulfate (morphine) 1 mg Q2H PRN IV breakthrough pain Last administered on 01/21/19at 17:54; Admin Dose 1 MG; Start 01/20/19 at 12:30 Insulin Aspart (Novolog Insulin Pen) NOVOLOG *MILD* ALGORI... Q6 SC ; Start 01/21/19 at 12:00 Meropenem/Sodium Chloride 50 ml @ 100 mls/hr Q12 IVPB Last administered on 01/22/19at 09:45; Admin Dose 100 MLS/HR; Start 01/21/19 at 21:00 Potassium Chloride 10 meq/ Dextrose 1,005 ml @ 80 mls/hr [id number] IV Last administered on 01/22/19at 05:01; Admin Dose 80 MLS/HR; Start 01/21/19 at 15:00 Lorazepam (Ativan) 1 mg Q6H PRN IV AGITATION Last administered on 01/22/19at 10:00; Admin Dose 1 MG; Start 01/21/19 at 18:00 GEO DELEON Jan 22, 2019 12:08
--- NOTE | 2019-01-22 12:26 | CONS ---
Consult Date/Type/Reason Admit Date/Time Jan 19, 2019 at 10:30 Initial Consult Date 01/21/19 Type of Consultation: Pulm/CC Requesting Provider: GEO DELEON Date/Time of Note DATE: 01/22/19 TIME: 12:24 Subjective No acute events - pt in ICU now - no CP noted - con't resp RX. ROS: No fever, no chills, no nausea, no vomiting, no diarrhea/constipation - per nurse Objective Vitals Vital Signs Date Temp Pulse Resp B/P (MAP) Pulse Ox O2 O2 Flow FiO2 Time Delivery Rate 01/22/19 67 08:00 01/22/19 40 08:00 01/22/19 18 116/65 100 Mechanical 06:00 (82) Ventilator Trach Collar 01/22/19 99.8 04:00 Intake and Output 01/21/19 01/21/19 01/22/19 1414:59 22:59 06:59 IntakeIntake Total 975 ml 610 ml 640 ml OutputOutput Total 335 ml 175 ml 50 ml BalanceBalance 640 ml 435 ml 590 ml Exam General: WN/WD/NAD, AOx 0 HEENT: Unicetric/atraumatic/EOMI (does not follow commands) NECK: no LAD Lymph: no lymphadenopathy HEART: regular with no S3, II/ systolic murmur at apex, PMI L LUNGS: Coarse sounds ABD: soft, NT, ND, +BS : Intact Neuro: non focal SKIN: chronic changes EXT: trace edema Results/Medications Result Diagram: 01/22/1962001/22/19 0621 Results 24 hrs Laboratory Tests Test 01/21/19 15:00 01/21/19 18:12 01/22/19 00:40 01/22/19 05:14 Urine Color YELLOW Urine Clarity CLOUDY A Urine pH 5.0 Urine Specific 1.013 [place] Urine Ketones NEGATIVE Urine Nitrite NEGATIVE Urine Bilirubin NEGATIVE Urine Urobilinogen NEGATIVE Urine Leukocyte 2+ H Esterase Urine Microscopic 6 H RBC Urine Microscopic 42 H WBC Urine Amorphous FEW A Crystals Urine Bacteria FEW A Urine Hemoglobin 1+ H Urine Glucose NEGATIVE Urine Total Protein 1+ H Bedside Glucose 104 82 Lab Scanned Report BLOOD TRANSFUSION Test 01/22/19 05:47 01/22/19 06:21 Bedside Glucose 91 White Blood Count 8.7 Red Blood Count 2.88 L Hemoglobin 8.0 L Hematocrit 26.8 L Mean Corpuscular 93.1 Volume Mean Corpuscular 27.8 L Hemoglobin Mean Corpuscular 29.9 L Hemoglobin Concent Red Cell 16.7 H Distribution Width Platelet Count 225 Mean Platelet 11.9 H Volume Immature 0.300 Granulocytes % Neutrophils % 78.1 H Lymphocytes % 11.1 L Monocytes % 7.2 Eosinophils % 3.1 Basophils % 0.2 Nucleated Red Blood 0.0 Cells % Immature 0.030 Granulocytes # Neutrophils # 6.8 Lymphocytes # 1.0 Monocytes # 0.6 Eosinophils # 0.3 Basophils # 0.0 Nucleated Red Blood 0.0 Cells # Sodium Level 145 H Potassium Level 4.0 Chloride Level 117 H Carbon Dioxide 20 L Level Anion Gap 8 Blood Urea Nitrogen 39 #H Creatinine 1.35 H Est Glomerular Filtrat Rate mL/min Glucose Level 86 Calcium Level 8.4 Magnesium Level 1.7 Home Meds Active Scripts Pantoprazole (Protonix) 40 Mg Tabec, 40 MG PO BID, #60 TAB 1 Refill Prov:NAYANA GARCIA. 11/22/18 Reported Medications Calcium Citrate/Vitamin D (Citracal-Vitamin D 200 MG-250) 1 Each Tablet, 1 EACH PO BID, TAB 11/19/18 Ibuprofen* (Ibuprofen*) 600 Mg Tablet, 600 MG PO Q6H PRN for PAIN LEVEL 1-5, TAB 11/19/18 Hydralazine Hcl* (Hydralazine Hcl*) 50 Mg Tablet, 50 MG PO Q6H, #60 TAB 11/19/18 Metformin* (Glucophage*) 500 Mg Tab, 500 MG PO WITH BREAKFAST, #30 TAB 11/19/18 Multivitamins* (Theragran*) 1 Tab Tab, 1 TAB PO DAILY, TAB 11/19/18 Aripiprazole* (Abilify*) 5 Mg Tab, 5 MG PO DAILY, #30 TAB 11/19/18 Diltiazem Hcl* (Cardizem SR*) 120 Mg Cap.sr.12h, 120 MG PO Q12, CAP 11/19/18 Pioglitazone Hcl* (Pioglitazone Hcl*) 30 Mg Tablet, 30 MG PO DAILY, TAB 11/19/18 Escitalopram Oxalate* (Escitalopram Oxalate*) 20 Mg Tablet, 20 MG PO DAILY, #30 TAB 11/19/18 Benazepril Hcl* (Benazepril Hcl*) 20 Mg Tablet, 20 MG PO DAILY, #30 TAB 11/19/18 Tamsulosin Hcl* (Tamsulosin Hcl*) 0.4 Mg Cap.er.24h, 0.4 MG PO HS, CAP 11/19/18 Aspirin Ec (Aspir 81) 81 Mg Tablet.dr, 81 MG PO DAILY, #30 TAB 11/19/18 Loratadine* (Loratadine*) 10 Mg Tablet, 10 MG PO DAILY, #30 TAB 11/19/18 Potassium Chloride* (Potassium Chloride*) 8 Meq Capsule.er, 8 MEQ PO DAILY, CAP 11/19/18 Furosemide* (Furosemide*) 80 Mg Tablet, 80 MG PO DAILY, #30 TAB 11/19/18 Atenolol* (Atenolol*) 50 Mg Tablet, 50 MG PO DAILY, #30 TAB 11/19/18 Digoxin* (Lanoxin*) 0.25 Mg Tablet, 0.25 MG PO DAILY, TAB 11/19/18 Medications Current Medications Oxycodone/ Acetaminophen (Percocet (5/ 325)) 1 tab Q6H PRN GTB PAIN LEVEL 6-10 Last administered on 01/20/19at 09:05; Admin Dose 1 TAB; Start 01/19/19 at 20:30 Acetaminophen (Tylenol Tab) 650 mg Q6H PRN PEG MILD PAIN(1-3)OR ELEVATED TEMP; Start 01/19/19 at 20:30 IV Flush (NS 3 ml) 3 ml PER PROTOCOL IV ; Start 01/19/19 at 20:30 Ondansetron HCl (Zofran Inj) 4 mg Q6H PRN IV NAUSEA AND/OR VOMITING; Start 01/20/19 at 02:30 Albuterol (Ventolin Hfa) 4 puff Q2H RESP THERAPY PRN INH SHORTNESS OF BREATH; Start 01/20/19 at 02:30 Ipratropium [place] (Atrovent Hfa) 4 puff Q2H RESP THERAPY PRN INH SHORTNESS OF BREATH; Start 01/20/19 at 02:30 Pantoprazole (Protonix Iv) 40 mg DAILY@06 IV Last administered on 01/22/19at 05:43; Admin Dose 40 MG; Start 01/20/19 at 06:00 Atenolol (Tenormin) 25 mg DAILY PO Last administered on 01/22/19at 09:44; Admin Dose 25 MG; Start 01/20/19 at 09:00 Digoxin (Digoxin) 0.25 mg DAILY@1300 PO Last administered on 01/21/19at 12:07; Admin Dose 0.25 MG; Start 01/20/19 at 13:00 Furosemide (Lasix) 80 mg DAILY@0600 PO Last administered on 01/22/19at 05:46; Admin Dose 80 MG; Start 01/20/19 at 06:00 Miscellaneous Information 1 ea NOTE XX ; Start 01/20/19 at 02:30 Glucose (Glutose) 15 gm Q15M PRN PO DECREASED GLUCOSE; Start 01/20/19 at 02:30 Glucose (Glutose) 22.5 gm Q15M PRN PO DECREASED GLUCOSE; Start 01/20/19 at 02:30 Dextrose (D50w Syringe) 25 ml Q15M PRN IV DECREASED GLUCOSE; Start 01/20/19 at 02:30 Dextrose (D50w Syringe) 50 ml Q15M PRN IV DECREASED GLUCOSE; Start 01/20/19 at 02:30 Glucagon (Glucagen) 1 mg Q15M PRN IM DECREASED GLUCOSE; Start 01/20/19 at 02:30 Glucose (Glutose) 15 gm Q15M PRN BUCCAL DECREASED GLUCOSE; Start 01/20/19 at 02:30 Miscellaneous Information (Pending [facility] Order For Wound Care) This patient huff... PRN PRN XX WOUND CARE; Start 01/20/19 at 08:30 Morphine Sulfate (morphine) 1 mg Q2H PRN IV breakthrough pain Last administered on 01/21/19at 17:54; Admin Dose 1 MG; Start 01/20/19 at 12:30 Insulin Aspart (Novolog Insulin Pen) NOVOLOG *MILD* ALGORI... Q6 SC ; Start 01/21/19 at 12:00 Meropenem/Sodium Chloride 50 ml @ 100 mls/hr Q12 IVPB Last administered on 01/22/19at 09:45; Admin Dose 100 MLS/HR; Start 01/21/19 at 21:00 Potassium Chloride 10 meq/ Dextrose 1,005 ml @ 80 mls/hr [id number] IV Last administered on 01/22/19at 05:01; Admin Dose 80 MLS/HR; Start 01/21/19 at 15:00 Lorazepam (Ativan) 1 mg Q6H PRN IV AGITATION Last administered on 01/22/19at 10:00; Admin Dose 1 MG; Start 01/21/19 at 18:00 Assessment/Plan Hospital Course (Demo Recall) 1. Tachycardia, intermittent consistent with sinus tachycardia, likely in the setting of pain and anxiety-improved - rate controlled. will monitor now 2. Hypotension, borderline after given pain meds, ensure good volume status - stable, con't ICU care 3. Abnormal electrocardiogram, right bundle branch block, secondary repolarization abnormalities, assess for heart block, rule out acute coronary syndrome postoperatively - not a good candidate for pacer/interventions 4. Colon carcinoma, status post resection, postop day #2 - poor prognosis 5. Anemia. 6. Renal failure, improving. 7. Altered mental state/encephalopathy- stable. 8. Diabetes mellitus - on meds, keep euglycemic. 9. Leukocytosis. 10. Hypernatremia. SCARLET HARDWICK MD Jan 22, 2019 12:26
[2019-01-22] MEDS: DIGOXIN 0.25 MG TAB PO SCH (12:41)
--- NOTE | 2019-01-22 12:52 | CONS ---
Assessment/Plan Assessment/Plan Assessment/Plan (Daily) 1. acute kidney injury on CKD III due to ATN and prerenal azotemia 2. 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 acute on chronic respiratory failure s/p tracheostomy 4. Atrial fibrillation:rate controlled 5. H/o Diabetes melitus 6. H/O HTN 7. Dysphagia: Status post G-tube 8. UTI with Urine Cx growing Klebsiella ESBL Plan: pt remains on ventilator, Hemodynamically stable, BUN/Cr slightly improving 39/1.35 Na 145- continue D5W with KCl 10mEQ at 80 cc/hr IV Flagyl stopped, IV abx meropenem for ESBL Klebsiella UTI Renally dose all abx, monitor electrolytes General surgery following will follow up Consultation Date/Type/Reason Admit Date/Time Jan 19, 2019 at 10:30 Initial Consult Date 01/21/19 Type of Consult NEPHROLOGY Requesting Provider: GEO DELEON Date/Time of Note DATE: 01/22/19 TIME: 12:52 Exam/Review of Systems Exam Vitals Vital Signs Date Temp Pulse Resp B/P (MAP) Pulse Ox O2 O2 Flow FiO2 Time Delivery Rate 01/22/19 67 08:00 01/22/19 40 08:00 01/22/19 18 116/65 100 Mechanical 06:00 (82) Ventilator Trach Collar 01/22/19 99.8 04:00 Intake and Output 01/21/19 01/21/19 01/22/19 1515:00 23:00 07:00 IntakeIntake Total 875 ml 690 ml 560 ml OutputOutput Total 375 ml 135 ml 50 ml BalanceBalance 500 ml 555 ml 510 ml Exam Constitutional: alert, other (oriented x 2 ), + tracheostomy in place Respiratory: congested cough, crackles/rales, diminished breath sounds Cardiovascular: regular rate and rhythm, nl pulses Gastrointestinal: soft, other (abdominal dressing + ) Musculoskeletal: nl extremities to inspection Extremities: normal pulses Neurological: alert, awake, no focal deficits Skin: nl turgor Results Result Diagram: 01/22/19 0621 01/22/19 0621 Results 24hrs Laboratory Tests Test 01/21/19 15:00 01/21/19 18:12 01/22/19 00:40 01/22/19 05:14 Urine Color YELLOW Urine Clarity CLOUDY A Urine pH 5.0 Urine Specific 1.013 [place] Urine Ketones NEGATIVE Urine Nitrite NEGATIVE Urine Bilirubin NEGATIVE Urine Urobilinogen NEGATIVE Urine Leukocyte 2+ H Esterase Urine Microscopic 6 H RBC Urine Microscopic 42 H WBC Urine Amorphous FEW A Crystals Urine Bacteria FEW A Urine Hemoglobin 1+ H Urine Glucose NEGATIVE Urine Total Protein 1+ H Bedside Glucose 104 82 Lab Scanned Report BLOOD TRANSFUSION Test 01/22/19 05:47 01/22/19 06:21 01/22/19 12:39 Bedside Glucose 91 91 White Blood Count 8.7 Red Blood Count 2.88 L Hemoglobin 8.0 L Hematocrit 26.8 L Mean Corpuscular 93.1 Volume Mean Corpuscular 27.8 L Hemoglobin Mean Corpuscular 29.9 L Hemoglobin Concent Red Cell 16.7 H Distribution Width Platelet Count 225 Mean Platelet 11.9 H Volume Immature 0.300 Granulocytes % Neutrophils % 78.1 H Lymphocytes % 11.1 L Monocytes % 7.2 Eosinophils % 3.1 Basophils % 0.2 Nucleated Red Blood 0.0 Cells % Immature 0.030 Granulocytes # Neutrophils # 6.8 Lymphocytes # 1.0 Monocytes # 0.6 Eosinophils # 0.3 Basophils # 0.0 Nucleated Red Blood 0.0 Cells # Sodium Level 145 H Potassium Level 4.0 Chloride Level 117 H Carbon Dioxide 20 L Level Anion Gap 8 Blood Urea Nitrogen 39 #H Creatinine 1.35 H Est Glomerular Filtrat Rate mL/min Glucose Level 86 Calcium Level 8.4 Magnesium Level 1.7 Medications Medication Current Medications Oxycodone/ Acetaminophen (Percocet (5/ 325)) 1 tab Q6H PRN GTB PAIN LEVEL 6-10 Last administered on 01/20/19at 09:05; Admin Dose 1 TAB; Start 01/19/19 at 20:30 Acetaminophen (Tylenol Tab) 650 mg Q6H PRN PEG MILD PAIN(1-3)OR ELEVATED TEMP; Start 01/19/19 at 20:30 IV Flush (NS 3 ml) 3 ml PER PROTOCOL IV ; Start 01/19/19 at 20:30 Ondansetron HCl (Zofran Inj) 4 mg Q6H PRN IV NAUSEA AND/OR VOMITING; Start 01/20/19 at 02:30 Albuterol (Ventolin Hfa) 4 puff Q2H RESP THERAPY PRN INH SHORTNESS OF BREATH; Start 01/20/19 at 02:30 Ipratropium [place] (Atrovent Hfa) 4 puff Q2H RESP THERAPY PRN INH SHORTNESS OF BREATH; Start 01/20/19 at 02:30 Pantoprazole (Protonix Iv) 40 mg DAILY@06 IV Last administered on 01/22/19at 05:43; Admin Dose 40 MG; Start 01/20/19 at 06:00 Atenolol (Tenormin) 25 mg DAILY PO Last administered on 01/22/19at 09:44; Admin Dose 25 MG; Start 01/20/19 at 09:00 Digoxin (Digoxin) 0.25 mg DAILY@1300 PO Last administered on 01/22/19at 12:41; Admin Dose 0.25 MG; Start 01/20/19 at 13:00 Furosemide (Lasix) 80 mg DAILY@0600 PO Last administered on 01/22/19at 05:46; Admin Dose 80 MG; Start 01/20/19 at 06:00 Miscellaneous Information 1 ea NOTE XX ; Start 01/20/19 at 02:30 Glucose (Glutose) 15 gm Q15M PRN PO DECREASED GLUCOSE; Start 01/20/19 at 02:30 Glucose (Glutose) 22.5 gm Q15M PRN PO DECREASED GLUCOSE; Start 01/20/19 at 02:30 Dextrose (D50w Syringe) 25 ml Q15M PRN IV DECREASED GLUCOSE; Start 01/20/19 at 02:30 Dextrose (D50w Syringe) 50 ml Q15M PRN IV DECREASED GLUCOSE; Start 01/20/19 at 02:30 Glucagon (Glucagen) 1 mg Q15M PRN IM DECREASED GLUCOSE; Start 01/20/19 at 02:30 Glucose (Glutose) 15 gm Q15M PRN BUCCAL DECREASED GLUCOSE; Start 01/20/19 at 02:30 Miscellaneous Information (Pending [facility] Order For Wound Care) This patient huff... PRN PRN XX WOUND CARE; Start 01/20/19 at 08:30 Morphine Sulfate (morphine) 1 mg Q2H PRN IV breakthrough pain Last administered on 01/21/19at 17:54; Admin Dose 1 MG; Start 01/20/19 at 12:30 Insulin Aspart (Novolog Insulin Pen) NOVOLOG *MILD* ALGORI... Q6 SC ; Start 3/1/19 at 12:00 Meropenem/Sodium Chloride 50 ml @ 100 mls/hr Q12 IVPB Last administered on 01/22at 09:45; Admin Dose 100 MLS/HR; Start 01/21/19 at 21:00 Potassium Chloride 10 meq/ Dextrose 1,005 ml @ 80 mls/hr [id number] IV Last administered on 01/22/19at 05:01; Admin Dose 80 MLS/HR; Start 01/21/19 at 15:00 Lorazepam (Ativan) 1 mg Q6H PRN IV AGITATION Last administered on 01/22/19at 10:00; Admin Dose 1 MG; Start 01/21/19 at 18:00 RENAN HERNANDEZ MD Jan 22, 2019 12:52
--- NOTE | 2019-01-22 16:14 | PN ---
Date/Time of Note Date/Time of Note DATE: 01/22/19 TIME: 16:09 Assessment/Plan Lines/Catheters IV Catheter Type (from Nrs): Saline Lock Ballard in Place (from Nrs): No Assessment/Plan Chief Complaint/Hosp Course 1. Sigmoid/rectal adenocarcinoma with obstruction, status post stent and significant adhesions, colorectal bleed with anemia: Status post laparoscopic co nverted to open low anterior resection with end colostomy and laparoscopic appendectomy 01/19/19 -Resumption of tube feeds -ambulate as able -ice pack to abdominal wall -Drain -Pain management -Close monitoring 2. Hypochromic anemia: Some blood noted in ostomy bag; drop in H&H: Status post PRBC transfusion -Monitor for now and transfuse as needed 3. UTI: -abx per sensitivity -frequent bladder emptying/cath care 4. Mild hypernatremia: Improved -Judicious fluid management 5. VDRF: Mild bibasilar atelectasis versus airspace disease -Pulmonary toilet -vap prevention 6. Dysphagia status post PEG tube -Eventual tube feed resumption as above 7. SIMI: -Limit nephrotoxic meds -Renally dose meds -Per renal -Judicious fluids Thank you. Patient seen and examined in collaboration with Dr. Srini Rose. Subjective 24 Hr Interval Summary Status post PRBC transfusion yesterday. Still with some blood from ostomy. Abdominal tenderness improved. Continues to have ELIUD drain output. Min temp. No labored breathing, congested cough, arrhythmias, vomiting, diarrhea, seizure, rash. Exam/Review of Systems Vital Signs Vitals Vital Signs Date Temp Pulse Resp B/P (MAP) Pulse Ox O2 O2 Flow FiO2 Time Delivery Rate 01/22/19 59 16 98 40 17:00 01/22/19 99.0 126/73 Mechanical 16:00 (90) Ventilator Intake and Output 01/21/19 01/21/19 01/22/19 1515:00 23:00 07:00 IntakeIntake Total 875 ml 690 ml 640 ml OutputOutput Total 375 ml 135 ml 50 ml BalanceBalance 500 ml 555 ml 590 ml Exam Free Text/Dictation Constitutional: alert; follows simple commands Psych: confusion Head: normocephalic, atraumatic Eyes: nl conjunctiva, nl lids, nl sclera ENMT: nl external ears & nose, mucosa pink and moist; No nl lips & teeth (Edentulous-bottom) Neck: supple, non-tender, other (Tracheostomy) Respiratory: normal air movement; No congested cough, No labored breathing Cardiovascular: regular rate and rhythm (Sinus rhythm); No edema Gastrointestinal: soft, distended (Minimal), other (Incision sites: (Midline: Staple line clean with minimal serosanguineous drainage); ELIUD drain serosanguineous; colostomy: Moist, + flatus, blood in ostomy bag) Genitourinary - Male: nl penis, nl scrotum Musculoskeletal: nl extremities to inspection Extremities: normal pulses, pitting pedal edema Neurological: confused; No nl mental status, No nl speech, No nl strength (Generalized weakness) Skin: No rash or lesions Results Result Diagram: 01/22/1962001/22/19620 TRACY FERREIRA NP Jan 22, 2019 16:14
[2019-01-23] VITALS (28 sets, daily range): BP systolic 117–144; BP diastolic 59–70; PULSE 73–89; RESP 17–25
[2019-01-23] MEDS: morphine 2 MG INJ IV PRN ×2 (00:40→20:08)
[2019-01-23] MEDS: LORAZEPAM 2 MG INJ IV PRN ×2 (00:41→20:09)
[2019-01-23] MEDS: PANTOPRAZOLE 40 MG INJ IV SCH (05:07)
[2019-01-23] MEDS: FUROSEMIDE 40 MG TAB PO SCH (05:08)
[2019-01-23] MEDS: INSULIN ASPART [NOVOLOG] 3 ML PEN SC SCH ×4 (05:13→17:30)
[2019-01-23] MEDS: POTASSIUM CHLORIDE 10 MEQ in DEXTROSE 5% 1,000 ML IV SCH ×3 (06:41→23:15)
[2019-01-23] MEDS: MEROPENEM 1 GM/50ML(PMX) 50 ML IVPB SCH ×2 (08:39→20:08)
[2019-01-23] MEDS: ATENOLOL 50 MG TAB PO SCH (08:40)
--- NOTE | 2019-01-23 10:10 | CONS ---
Assessment/Plan Assessment/Plan Assessment/Plan (Daily) 1. Acute kidney injury on CKD III due to ATN and prerenal azotemia 2. 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 acute on chronic respiratory failure s/p tracheostomy 4. Atrial fibrillation:rate controlled 5. H/o Diabetes melitus 6. H/O HTN 7. Dysphagia: Status post G-tube 8. UTI with Urine Cx growing Klebsiella ESBL Plan: Na 141, BUN/Cr 28/1.09- continue D5W with KCl 10mEQ at 80 cc/hr IV abx meropenem for ESBL Klebsiella UTI Renally dose all abx, monitor electrolytes General surgery following will follow up Consultation Date/Type/Reason Admit Date/Time Jan 19, 2019 at 10:30 Initial Consult Date 01/21/19 Type of Consult NEPHROLOGY Requesting Provider: GEO DELEON Date/Time of Note DATE: 01/23/19 TIME: 10:10 Exam/Review of Systems Exam Vitals Vital Signs Date Temp Pulse Resp B/P (MAP) Pulse Ox O2 O2 Flow FiO2 Time Delivery Rate 01/23/19 89 17 99 30 09:00 01/23/19 101.5 126/67 07:49 (86) 01/22/19 [place] 20:00 l Ventilato r Trach Collar Intake and Output 01/22/19 01/22/19 01/23/19 1515:00 23:00 07:00 IntakeIntake Total 730 ml 1093 ml 262 ml OutputOutput Total 695 ml 390 ml 1100 ml BalanceBalance 35 ml 703 ml -838 ml Exam Constitutional: alert, other (oriented x 2 ), + tracheostomy in place Respiratory: congested cough, crackles/rales, diminished breath sounds Cardiovascular: regular rate and rhythm, nl pulses Gastrointestinal: soft, other (abdominal dressing + ) Musculoskeletal: nl extremities to inspection Extremities: normal pulses Neurological: alert, awake, no focal deficits Skin: nl turgor Results Result Diagram: 01/23/19 0458 01/23/19 0458 Results 24hrs Laboratory Tests Test 01/22/19 12:39 01/22/19 17:25 01/22/19 23:53 01/23/19 04:58 Bedside Glucose 91 95 90 White Blood Count 8.3 Red Blood Count 2.86 L Hemoglobin 7.9 L Hematocrit 25.8 L Mean Corpuscular 90.2 Volume Mean Corpuscular 27.6 L Hemoglobin Mean Corpuscular 30.6 L Hemoglobin Concent Red Cell 16.1 H Distribution Width Platelet Count 250 Mean Platelet 12.1 H Volume Immature 0.200 Granulocytes % Neutrophils % 74.2 Lymphocytes % 14.1 L Monocytes % 7.3 Eosinophils % 3.8 Basophils % 0.4 Nucleated Red 0.0 Blood Cells % Immature 0.020 Granulocytes # Neutrophils # 6.2 Lymphocytes # 1.2 Monocytes # 0.6 Eosinophils # 0.3 Basophils # 0.0 Nucleated Red 0.0 Blood Cells # Sodium Level 141 Potassium Level 4.2 Chloride Level 112 H Carbon Dioxide 22 Level Anion Gap 7 Blood Urea 28 #H Nitrogen Creatinine 1.09 Est Glomerular Filtrat Rate mL/min Glucose Level 82 Lactic Acid Level 0.7 Calcium Level 8.4 Test 01/23/19 05:00 01/23/19 05:11 Blood Gas Specimen Blood arterial Source Arterial Blood 01/23/2019 4:31:00 Date Drawn AM Arterial Blood pH 7.436 (Temp corrected) Arterial Blood 32.1 L pCO2 (Temp correct) Arterial Blood pO2 85.7 (Temp corrected) Arterial Blood 21.1 L HCO3 Arterial Blood -2.4 Base Excess Arterial Blood 96.8 Oxygen Saturation [place]son Test N/A Arterial Blood Gas LB Puncture Site Arterial 0.1 Blood Carboxyhemog lobin Arterial Blood 0.3 Methemoglobin Blood Gas A-a O2 90.5 H Differential Oxyhemoglobin 96.4 Percent Blood Gas 37.0 Temperature Blood Gas 16.0 Respiration Rate Blood Gas Actual 21 Respiration Rate Blood Gas Modality VENT - AC FiO2 30.0 Blood Gas Tidal 550.0 Volume Blood Gas Low PEEP 5.0 Setting Blood Gas 22.0 Inspiratory Pressure Blood Gas Notified RTR Whom Blood Gas Notified 01/23/2019 4:45:14 Time AM Bedside Glucose 93 Medications Medication Current Medications Oxycodone/ Acetaminophen (Percocet (5/ 325)) 1 tab Q6H PRN GTB PAIN LEVEL 6-10 Last administered on 01/20/19at 09:05; Admin Dose 1 TAB; Start 01/19/19 at 20:30 Acetaminophen (Tylenol Tab) 650 mg Q6H PRN PEG MILD PAIN(1-3)OR ELEVATED TEMP; Start 01/19/19 at 20:30 IV Flush (NS 3 ml) 3 ml PER PROTOCOL IV ; Start 01/19/19 at 20:30 Ondansetron HCl (Zofran Inj) 4 mg Q6H PRN IV NAUSEA AND/OR VOMITING; Start 01/20/19 at 02:30 Albuterol (Ventolin Hfa) 4 puff Q2H RESP THERAPY PRN INH SHORTNESS OF BREATH; Start 01/20/19 at 02:30 Ipratropium [place] (Atrovent Hfa) 4 puff Q2H RESP THERAPY PRN INH SHORTNESS OF BREATH; Start 01/20/19 at 02:30 Pantoprazole (Protonix Iv) 40 mg DAILY@06 IV Last administered on 01/23/19at 05:07; Admin Dose 40 MG; Start 01/20/19 at 06:00 Atenolol (Tenormin) 25 mg DAILY PO Last administered on 01/23/19at 08:40; Admin Dose 25 MG; Start 01/20/19 at 09:00 Digoxin (Digoxin) 0.25 mg DAILY@1300 PO Last administered on 01/22/19at 12:41; Admin Dose 0.25 MG; Start 01/20/19 at 13:00 Furosemide (Lasix) 80 mg DAILY@0600 PO Last administered on 01/23/19at 05:08; Admin Dose 80 MG; Start 01/20/19 at 06:00 Miscellaneous Information 1 ea NOTE XX ; Start 01/20/19 at 02:30 Glucose (Glutose) 15 gm Q15M PRN PO DECREASED GLUCOSE; Start 01/20/19 at 02:30 Glucose (Glutose) 22.5 gm Q15M PRN PO DECREASED GLUCOSE; Start 01/20/19 at 02:30 Dextrose (D50w Syringe) 25 ml Q15M PRN IV DECREASED GLUCOSE; Start 01/20/19 at 02:30 Dextrose (D50w Syringe) 50 ml Q15M PRN IV DECREASED GLUCOSE; Start 01/20/19 at 02:30 Glucagon (Glucagen) 1 mg Q15M PRN IM DECREASED GLUCOSE; Start 01/20/19 at 02:30 Glucose (Glutose) 15 gm Q15M PRN BUCCAL DECREASED GLUCOSE; Start 01/20/19 at 02:30 Miscellaneous Information (Pending [facility] Order For Wound Care) This patient huff... PRN PRN XX WOUND CARE; Start 01/20/19 at 08:30 Morphine Sulfate (morphine) 1 mg Q2H PRN IV breakthrough pain Last administered on 01/23/19at 00:40; Admin Dose 1 MG; Start 01/20/19 at 12:30 Insulin Aspart (Novolog Insulin Pen) NOVOLOG *MILD* ALGORI... Q6 SC ; Start 01/21/19 at 12:00 Meropenem/Sodium Chloride 50 ml @ 100 mls/hr Q12 IVPB Last administered on 01/23/19at 08:39; Admin Dose 100 MLS/HR; Start 01/21/19 at 21:00 Potassium Chloride 10 meq/ Dextrose 1,005 ml @ 80 mls/hr [id number] IV Last administered on 01/23/19at 06:41; Admin Dose 80 MLS/HR; Start 01/21/19 at 15:00 Lorazepam (Ativan) 1 mg Q6H PRN IV AGITATION Last administered on 01/23/19at 00:41; Admin Dose 1 MG; Start 01/21/19 at 18:00 RENAN HERNANDEZ MD Jan 23, 2019 10:10
--- NOTE | 2019-01-23 10:58 | CONS ---
Consult Date/Type/Reason Admit Date/Time Jan 19, 2019 at 10:30 Initial Consult Date 01/21/19 Type of Consultation: Urology Reason for Consultation Benign prostatic hypertrophy and history of urinary retention Requesting Provider: GEO DELEON Date/Time of Note DATE: 01/23/19 TIME: 10:54 Subjective Patient is on a respirator. He opens his eyes and recognized me as I have seen him before. Objective Vitals Vital Signs Date Temp Pulse Resp B/P (MAP) Pulse Ox O2 O2 Flow FiO2 Time Delivery Rate 01/23/19 100.0 73 19 141/68 99 10:00 (92) 01/23/19 30 09:00 01/22/19 [place] 20:00 l Ventilato r Trach Collar Intake and Output 01/22/19 01/22/19 01/23/19 1515:00 23:00 07:00 IntakeIntake Total 730 ml 1093 ml 262 ml OutputOutput Total 695 ml 390 ml 1100 ml BalanceBalance 35 ml 703 ml -838 ml Exam Ballard catheter is draining clear urine. Patient does have a G-tube and a colostomy and drains from his recent colon resection Results/Medications Result Diagram: 01/23/19 0458 01/23/19 0458 Results 24 hrs Laboratory Tests Test 01/22/19 12:39 01/22/19 17:25 01/22/19 23:53 01/23/19 04:58 Bedside Glucose 91 95 90 White Blood Count 8.3 Red Blood Count 2.86 L Hemoglobin 7.9 L Hematocrit 25.8 L Mean Corpuscular 90.2 Volume Mean Corpuscular 27.6 L Hemoglobin Mean Corpuscular 30.6 L Hemoglobin Concent Red Cell 16.1 H Distribution Width Platelet Count 250 Mean Platelet 12.1 H Volume Immature 0.200 Granulocytes % Neutrophils % 74.2 Lymphocytes % 14.1 L Monocytes % 7.3 Eosinophils % 3.8 Basophils % 0.4 Nucleated Red 0.0 Blood Cells % Immature 0.020 Granulocytes # Neutrophils # 6.2 Lymphocytes # 1.2 Monocytes # 0.6 Eosinophils # 0.3 Basophils # 0.0 Nucleated Red 0.0 Blood Cells # Sodium Level 141 Potassium Level 4.2 Chloride Level 112 H Carbon Dioxide 22 Level Anion Gap 7 Blood Urea 28 #H Nitrogen Creatinine 1.09 Est Glomerular Filtrat Rate mL/min Glucose Level 82 Lactic Acid Level 0.7 Calcium Level 8.4 Test 01/23/19 05:00 01/23/19 05:11 Blood Gas Specimen Blood arterial Source Arterial Blood 01/23/2019 4:31:00 Date Drawn AM Arterial Blood pH 7.436 (Temp corrected) Arterial Blood 32.1 L pCO2 (Temp correct) Arterial Blood pO2 85.7 (Temp corrected) Arterial Blood 21.1 L HCO3 Arterial Blood -2.4 Base Excess Arterial Blood 96.8 Oxygen Saturation [place] Test N/A Arterial Blood Gas LB Puncture Site Arterial 0.1 Blood Carboxyhemog lobin Arterial Blood 0.3 Methemoglobin Blood Gas A-a O2 90.5 H Differential Oxyhemoglobin 96.4 Percent Blood Gas 37.0 Temperature Blood Gas 16.0 Respiration Rate Blood Gas Actual 21 Respiration Rate Blood Gas Modality VENT - AC FiO2 30.0 Blood Gas Tidal 550.0 Volume Blood Gas Low PEEP 5.0 Setting Blood Gas 22.0 Inspiratory Pressure Blood Gas Notified RTR Whom Blood Gas Notified 01/23/2019 4:45:14 Time AM Bedside Glucose 93 Home Meds Active Scripts Pantoprazole (Protonix) 40 Mg Tabec, 40 MG PO BID, #60 TAB 1 Refill Prov:NAYANA GARCIA. 11/22/18 Reported Medications Calcium Citrate/Vitamin D (Citracal-Vitamin D 200 MG-250) 1 Each Tablet, 1 EACH PO BID, TAB 11/19/18 Ibuprofen* (Ibuprofen*) 600 Mg Tablet, 600 MG PO Q6H PRN for PAIN LEVEL 1-5, TAB 11/19/18 Hydralazine Hcl* (Hydralazine Hcl*) 50 Mg Tablet, 50 MG PO Q6H, #60 TAB 11/19/18 Metformin* (Glucophage*) 500 Mg Tab, 500 MG PO WITH BREAKFAST, #30 TAB 11/19/18 Multivitamins* (Theragran*) 1 Tab Tab, 1 TAB PO DAILY, TAB 11/19/18 Aripiprazole* (Abilify*) 5 Mg Tab, 5 MG PO DAILY, #30 TAB 11/19/18 Diltiazem Hcl* (Cardizem SR*) 120 Mg Cap.sr.12h, 120 MG PO Q12, CAP 11/19/18 Pioglitazone Hcl* (Pioglitazone Hcl*) 30 Mg Tablet, 30 MG PO DAILY, TAB 11/19/18 Escitalopram Oxalate* (Escitalopram Oxalate*) 20 Mg Tablet, 20 MG PO DAILY, #30 TAB 11/19/18 Benazepril Hcl* (Benazepril Hcl*) 20 Mg Tablet, 20 MG PO DAILY, #30 TAB 11/19/18 Tamsulosin Hcl* (Tamsulosin Hcl*) 0.4 Mg Cap.er.24h, 0.4 MG PO HS, CAP 11/19/18 Aspirin Ec (Aspir 81) 81 Mg Tablet.dr, 81 MG PO DAILY, #30 TAB 11/19/18 Loratadine* (Loratadine*) 10 Mg Tablet, 10 MG PO DAILY, #30 TAB 11/19/18 Potassium Chloride* (Potassium Chloride*) 8 Meq Capsule.er, 8 MEQ PO DAILY, CAP 11/19/18 Furosemide* (Furosemide*) 80 Mg Tablet, 80 MG PO DAILY, #30 TAB 11/19/18 Atenolol* (Atenolol*) 50 Mg Tablet, 50 MG PO DAILY, #30 TAB 11/19/18 Digoxin* (Lanoxin*) 0.25 Mg Tablet, 0.25 MG PO DAILY, TAB 11/19/18 Medications Current Medications Oxycodone/ Acetaminophen (Percocet (5/ 325)) 1 tab Q6H PRN GTB PAIN LEVEL 6-10 Last administered on 01/20/19at 09:05; Admin Dose 1 TAB; Start 01/19/19 at 20:30 Acetaminophen (Tylenol Tab) 650 mg Q6H PRN PEG MILD PAIN(1-3)OR ELEVATED TEMP; Start 01/19/19 at 20:30 IV Flush (NS 3 ml) 3 ml PER PROTOCOL IV ; Start 01/19/19 at 20:30 Ondansetron HCl (Zofran Inj) 4 mg Q6H PRN IV NAUSEA AND/OR VOMITING; Start 01/20/19 at 02:30 Albuterol (Ventolin Hfa) 4 puff Q2H RESP THERAPY PRN INH SHORTNESS OF BREATH; Start 01/20/19 at 02:30 Ipratropium [place] (Atrovent Hfa) 4 puff Q2H RESP THERAPY PRN INH SHORTNESS OF BREATH; Start 01/20/19 at 02:30 Pantoprazole (Protonix Iv) 40 mg DAILY@06 IV Last administered on 01/23/19at 05:07; Admin Dose 40 MG; Start 01/20/19 at 06:00 Atenolol (Tenormin) 25 mg DAILY PO Last administered on 01/23/19at 08:40; Admin Dose 25 MG; Start 01/20/19 at 09:00 Digoxin (Digoxin) 0.25 mg DAILY@1300 PO Last administered on 01/22/19at 12:41; Admin Dose 0.25 MG; Start 01/20/19 at 13:00 Furosemide (Lasix) 80 mg DAILY@0600 PO Last administered on 01/23/19at 05:08; Admin Dose 80 MG; Start 01/20/19 at 06:00 Miscellaneous Information 1 ea NOTE XX ; Start 01/20/19 at 02:30 Glucose (Glutose) 15 gm Q15M PRN PO DECREASED GLUCOSE; Start 01/20/19 at 02:30 Glucose (Glutose) 22.5 gm Q15M PRN PO DECREASED GLUCOSE; Start 01/20/19 at 02:30 Dextrose (D50w Syringe) 25 ml Q15M PRN IV DECREASED GLUCOSE; Start 01/20/19 at 02:30 Dextrose (D50w Syringe) 50 ml Q15M PRN IV DECREASED GLUCOSE; Start 01/20/19 at 02:30 Glucagon (Glucagen) 1 mg Q15M PRN IM DECREASED GLUCOSE; Start 01/20/19 at 02:30 Glucose (Glutose) 15 gm Q15M PRN BUCCAL DECREASED GLUCOSE; Start 01/20/19 at 02:30 Miscellaneous Information (Pending [facility] Order For Wound Care) This patient huff... PRN PRN XX WOUND CARE; Start 01/20/19 at 08:30 Morphine Sulfate (morphine) 1 mg Q2H PRN IV breakthrough pain Last administered on 01/23/19at 00:40; Admin Dose 1 MG; Start 01/20/19 at 12:30 Insulin Aspart (Novolog Insulin Pen) NOVOLOG *MILD* ALGORI... Q6 SC ; Start 01/21/19 at 12:00 Meropenem/Sodium Chloride 50 ml @ 100 mls/hr Q12 IVPB Last administered on 01/23/19at 08:39; Admin Dose 100 MLS/HR; Start 01/21/19 at 21:00 Potassium Chloride 10 meq/ Dextrose 1,005 ml @ 80 mls/hr [id number] IV Last administered on 01/23/19at 06:41; Admin Dose 80 MLS/HR; Start 01/21/19 at 15:00 Lorazepam (Ativan) 1 mg Q6H PRN IV AGITATION Last administered on 01/23/19at 00:41; Admin Dose 1 MG; Start 01/21/19 at 18:00 Assessment/Plan Hospital Course (Demo Recall) 78-year-old male known to have a history of benign prostatic hypertrophy and urinary retention. He underwent surgery for colon cancer. The patient is on a respirator and has a G-tube and an indwelling Ballard catheter now. Previously we had him on doxazosin to help him with his voiding and he was voiding with a low postvoid residual. Once he is better one could restart the doxazosin and try to remove the Ballard catheter and see if he is able to urinate on his own. MARILEE CHAVEZ MD Jan 23, 2019 10:58
[2019-01-23] MEDS: DIGOXIN 0.25 MG TAB PO SCH (12:42)
--- NOTE | 2019-01-23 12:59 | CONS ---
Consult Date/Type/Reason Admit Date/Time Jan 19, 2019 at 10:30 Initial Consult Date 01/21/19 Type of Consultation: Urology Requesting Provider: GEO DELEON Date/Time of Note DATE: 01/23/19 TIME: 12:55 Subjective NO acute events - pt stable, out of ICU now -rate controlled now. ROS: No fever, no chills, no nausea, no vomiting, no diarrhea/constipation - per nurse , chronic SOB Objective Vitals Vital Signs Date Temp Pulse Resp B/P (MAP) Pulse Ox O2 O2 Flow FiO2 Time Delivery Rate 01/23/19 82 12:36 01/23/19 99.8 20 144/70 98 11:53 (94) 01/23/19 30 11:26 01/22/19 Mechanical 20:00 Ventilator Trach Collar Intake and Output 01/22/19 01/22/19 01/23/19 1515:00 23:00 07:00 IntakeIntake Total 730 ml 1093 ml 262 ml OutputOutput Total 695 ml 390 ml 1100 ml BalanceBalance 35 ml 703 ml -838 ml Exam General: WN/WD/NAD, AOx comfortable HEENT: Unicetric/atraumatic/EOMI (does not follow commands) NECK: trach Lymph: no lymphadenopathy HEART: regular with no S3, II/ systolic murmur at apex, PMI L LUNGS: Coarse sounds ABD: soft, NT, ND, +BS : Intact Neuro: non focal SKIN: chronic changes EXT: trace edema Results/Medications Result Diagram: 01/23/19 0458 01/23/19 0458 Results 24 hrs Laboratory Tests Test 01/22/19 17:25 01/22/19 23:53 01/23/19 04:58 01/23/19 05:00 Bedside Glucose 95 90 White Blood Count 8.3 Red Blood Count 2.86 L Hemoglobin 7.9 L Hematocrit 25.8 L Mean Corpuscular 90.2 Volume Mean Corpuscular 27.6 L Hemoglobin Mean Corpuscular 30.6 L Hemoglobin Concent Red Cell 16.1 H Distribution Width Platelet Count 250 Mean Platelet 12.1 H Volume Immature 0.200 Granulocytes % Neutrophils % 74.2 Lymphocytes % 14.1 L Monocytes % 7.3 Eosinophils % 3.8 Basophils % 0.4 Nucleated Red 0.0 Blood Cells % Immature 0.020 Granulocytes # Neutrophils # 6.2 Lymphocytes # 1.2 Monocytes # 0.6 Eosinophils # 0.3 Basophils # 0.0 Nucleated Red 0.0 Blood Cells # Sodium Level 141 Potassium Level 4.2 Chloride Level 112 H Carbon Dioxide 22 Level Anion Gap 7 Blood Urea 28 #H Nitrogen Creatinine 1.09 Est Glomerular Filtrat Rate mL/min Glucose Level 82 Lactic Acid Level 0.7 Calcium Level 8.4 Blood Gas Specimen Blood arterial Source Arterial Blood 01/23/2019 4:31:00 Date Drawn AM Arterial Blood pH 7.436 (Temp corrected) Arterial Blood 32.1 L pCO2 (Temp correct) Arterial Blood pO2 85.7 (Temp corrected) Arterial Blood 21.1 L HCO3 Arterial Blood -2.4 Base Excess Arterial Blood 96.8 Oxygen Saturation Nilson Test N/A Arterial Blood Gas LB Puncture Site Arterial 0.1 Blood Carboxyhemog lobin Arterial Blood 0.3 Methemoglobin Blood Gas A-a O2 90.5 H Differential Oxyhemoglobin 96.4 Percent Blood Gas 37.0 Temperature Blood Gas 16.0 Respiration Rate Blood Gas Actual 21 Respiration Rate Blood Gas Modality VENT - AC FiO2 30.0 Blood Gas Tidal 550.0 Volume Blood Gas Low PEEP 5.0 Setting Blood Gas 22.0 Inspiratory Pressure Blood Gas Notified RTR Whom Blood Gas Notified 01/23/2019 4:45:14 Time AM Test 01/23/19 05:11 01/23/19 11:49 Bedside Glucose 93 102 Home Meds Active Scripts Pantoprazole (Protonix) 40 Mg Tabec, 40 MG PO BID, #60 TAB 1 Refill Prov:NAYANA GARCIA. 11/22/18 Reported Medications Calcium Citrate/Vitamin D (Citracal-Vitamin D 200 MG-250) 1 Each Tablet, 1 EACH PO BID, TAB 11/19/18 Ibuprofen* (Ibuprofen*) 600 Mg Tablet, 600 MG PO Q6H PRN for PAIN LEVEL 1-5, TAB 11/19/18 Hydralazine Hcl* (Hydralazine Hcl*) 50 Mg Tablet, 50 MG PO Q6H, #60 TAB 11/19/18 Metformin* (Glucophage*) 500 Mg Tab, 500 MG PO WITH BREAKFAST, #30 TAB 11/19/18 Multivitamins* (Theragran*) 1 Tab Tab, 1 TAB PO DAILY, TAB 11/19/18 Aripiprazole* (Abilify*) 5 Mg Tab, 5 MG PO DAILY, #30 TAB 11/19/18 Diltiazem Hcl* (Cardizem SR*) 120 Mg Cap.sr.12h, 120 MG PO Q12, CAP 11/19/18 Pioglitazone Hcl* (Pioglitazone Hcl*) 30 Mg Tablet, 30 MG PO DAILY, TAB 11/19/18 Escitalopram Oxalate* (Escitalopram Oxalate*) 20 Mg Tablet, 20 MG PO DAILY, #30 TAB 11/19/18 Benazepril Hcl* (Benazepril Hcl*) 20 Mg Tablet, 20 MG PO DAILY, #30 TAB 11/19/18 Tamsulosin Hcl* (Tamsulosin Hcl*) 0.4 Mg Cap.er.24h, 0.4 MG PO HS, CAP 11/19/18 Aspirin Ec (Aspir 81) 81 Mg Tablet.dr, 81 MG PO DAILY, #30 TAB 11/19/18 Loratadine* (Loratadine*) 10 Mg Tablet, 10 MG PO DAILY, #30 TAB 11/19/18 Potassium Chloride* (Potassium Chloride*) 8 Meq Capsule.er, 8 MEQ PO DAILY, CAP 11/19/18 Furosemide* (Furosemide*) 80 Mg Tablet, 80 MG PO DAILY, #30 TAB 11/19/18 Atenolol* (Atenolol*) 50 Mg Tablet, 50 MG PO DAILY, #30 TAB 11/19/18 Digoxin* (Lanoxin*) 0.25 Mg Tablet, 0.25 MG PO DAILY, TAB 11/19/18 Medications Current Medications Oxycodone/ Acetaminophen (Percocet (5/ 325)) 1 tab Q6H PRN GTB PAIN LEVEL 6-10 Last administered on 01/20/19at 09:05; Admin Dose 1 TAB; Start 01/19/19 at 20:30 Acetaminophen (Tylenol Tab) 650 mg Q6H PRN PEG MILD PAIN(1-3)OR ELEVATED TEMP; Start 01/19/19 at 20:30 IV Flush (NS 3 ml) 3 ml PER PROTOCOL IV ; Start 01/19/19 at 20:30 Ondansetron HCl (Zofran Inj) 4 mg Q6H PRN IV NAUSEA AND/OR VOMITING; Start 01/20/19 at 02:30 Albuterol (Ventolin Hfa) 4 puff Q2H RESP THERAPY PRN INH SHORTNESS OF BREATH; Start 01/20/19 at 02:30 Ipratropium [place] (Atrovent Hfa) 4 puff Q2H RESP THERAPY PRN INH SHORTNESS OF BREATH; Start 01/20/19 at 02:30 Pantoprazole (Protonix Iv) 40 mg DAILY@06 IV Last administered on 01/23/19at 05:07; Admin Dose 40 MG; Start 01/20/19 at 06:00 Atenolol (Tenormin) 25 mg DAILY PO Last administered on 01/23/19at 08:40; Admin Dose 25 MG; Start 01/20/19 at 09:00 Digoxin (Digoxin) 0.25 mg DAILY@1300 PO Last administered on 01/22/19at 12:41; Admin Dose 0.25 MG; Start 01/20/19 at 13:00 Furosemide (Lasix) 80 mg DAILY@0600 PO Last administered on 01/23/19at 05:08; Admin Dose 80 MG; Start 01/20/19 at 06:00 Miscellaneous Information 1 ea NOTE XX ; Start 01/20/19 at 02:30 Glucose (Glutose) 15 gm Q15M PRN PO DECREASED GLUCOSE; Start 01/20/19 at 02:30 Glucose (Glutose) 22.5 gm Q15M PRN PO DECREASED GLUCOSE; Start 01/20/19 at 02:30 Dextrose (D50w Syringe) 25 ml Q15M PRN IV DECREASED GLUCOSE; Start 01/20/19 at 02:30 Dextrose (D50w Syringe) 50 ml Q15M PRN IV DECREASED GLUCOSE; Start 01/20/19 at 02:30 Glucagon (Glucagen) 1 mg Q15M PRN IM DECREASED GLUCOSE; Start 01/20/19 at 02:30 Glucose (Glutose) 15 gm Q15M PRN BUCCAL DECREASED GLUCOSE; Start 01/20/19 at 02:30 Miscellaneous Information (Pending [facility] Order For Wound Care) This patient huff... PRN PRN XX WOUND CARE; Start 01/20/19 at 08:30 Morphine Sulfate (morphine) 1 mg Q2H PRN IV breakthrough pain Last administered on 01/23/19at 00:40; Admin Dose 1 MG; Start 01/20/19 at 12:30 Insulin Aspart (Novolog Insulin Pen) NOVOLOG *MILD* ALGORI... Q6 SC ; Start 01/21/19 at 12:00 Meropenem/Sodium Chloride 50 ml @ 100 mls/hr Q12 IVPB Last administered on 01/23/19at 08:39; Admin Dose 100 MLS/HR; Start 01/21/19 at 21:00 Potassium Chloride 10 meq/ Dextrose 1,005 ml @ 80 mls/hr [id number] IV Last administered on 01/23/19at 06:41; Admin Dose 80 MLS/HR; Start 01/21/19 at 15:00 Lorazepam (Ativan) 1 mg Q6H PRN IV AGITATION Last administered on 01/23/19at 00:41; Admin Dose 1 MG; Start 01/21/19 at 18:00 Assessment/Plan Hospital Course (Demo Recall) 1. Tachycardia, intermittent consistent with sinus tachycardia, likely in the setting of pain and anxiety-improved - rate controlled. will monitor now - better now, to tele 2. Hypotension, borderline after given pain meds, ensure good volume status - stable, con't ICU care - improved BP now 3. Abnormal electrocardiogram, right bundle branch block, secondary repolarization abnormalities, assess for heart block, rule out acute coronary syndrome postoperatively - not a good candidate for pacer/interventions - satble HR 4. Colon carcinoma, status post resection - poor prognosis still 5. Anemia- con;t to monitopr H/H - 7.9 now - primary follows 6. Renal failure, improving. 7. Altered mental state/encephalopathy- stable. 8. Diabetes mellitus - on meds, keep euglycemic. 9. Leukocytosis. 10. Hypernatremia. SCARLET HARDWICK MD Jan 23, 2019 12:59
--- NOTE | 2019-01-23 14:06 | PN ---
Date/Time of Note Date/Time of Note DATE: 01/23/19 TIME: 14:06 Assessment/Plan Lines/Catheters IV Catheter Type (from Nrs): Saline Lock Ballard in Place (from Nrs): No Assessment/Plan Chief Complaint/Hosp Course 1. Sigmoid/rectal adenocarcinoma with obstruction, status post stent and significant adhesions, colorectal bleed with anemia: Status post laparoscopic co nverted to open low anterior resection with end colostomy and laparoscopic appendectomy 01/19/19 -continue tube feeds titrate to goal, monitor bowel function -ambulate as able -ice pack to abdominal wall -continue Drain -Pain management -Close monitoring 2. Fever: WBC nl -close monitoring, further workup if persistent 3. UTI: -abx per sensitivity -frequent bladder emptying/cath care 4. Hypochromic anemia: Some blood noted in ostomy bag; drop in H&H: Status post PRBC transfusion -Monitor for now and transfuse as needed 5. VDRF: Mild bibasilar atelectasis versus airspace disease -Pulmonary toilet -vap prevention 6. Dysphagia status post PEG tube -tube feed resumption as above 7. SIMI: -Limit nephrotoxic meds -Renally dose meds -Per renal -Judicious fluids Thank you. Patient seen and examined in collaboration with Dr. Srini Rose. Subjective 24 Hr Interval Summary Fevers. Tolerating TF. + flatus. Appears comfortable. Nonverbal indicators of pain not present. No labored breathing, congested cough, n/v/d/dysuria. Exam/Review of Systems Vital Signs Vitals Vital Signs Date Temp Pulse Resp B/P (MAP) Pulse Ox O2 O2 Flow FiO2 Time Delivery Rate 01/23/19 101.3 21:56 01/23/19 82 19 140/65 96 20:00 (90) 01/23/19 30 19:01 01/22/19 [place] 20:00 l Ventilato r Trach Collar Intake and Output 01/22/19 01/22/19 01/23/19 1515:00 23:00 07:00 IntakeIntake Total 730 ml 1093 ml 262 ml OutputOutput Total 695 ml 390 ml 1100 ml BalanceBalance 35 ml 703 ml -838 ml Exam Free Text/Dictation Constitutional: alert; follows simple commands Psych: confusion Head: normocephalic, atraumatic Eyes: nl conjunctiva, nl lids, nl sclera ENMT: nl external ears & nose, mucosa pink and moist; No nl lips & teeth (Edentulous-bottom) Neck: supple, non-tender, other (Tracheostomy) Respiratory: normal air movement; No congested cough, No labored breathing Cardiovascular: regular rate and rhythm (Sinus rhythm); No edema Gastrointestinal: soft, distended (Minimal), other (Incision sites: (Midline: Staple line clean, no cristina-incisional erythema/drainage); ELIUD drain serosanguineous; colostomy: Moist, + flatus) Genitourinary - Male: nl penis, nl scrotum Musculoskeletal: nl extremities to inspection Extremities: normal pulses, pitting pedal edema Neurological: confused; No nl mental status, No nl speech, No nl strength (Generalized weakness) Skin: No rash or lesions Results Result Diagram: 01/23/19 0458 01/23/19 0458 TRACY FERREIRA NP Jan 23, 2019 14:06
--- NOTE | 2019-01-23 14:34 | CONS ---
Consult Date/Type/Reason Admit Date/Time Jan 19, 2019 at 10:30 Initial Consult Date 01/21/19 Type of Consultation: Pulm Requesting Provider: GEO DELEON Date/Time of Note DATE: 01/23/19 TIME: 14:32 Subjective No events overnight. Stable on the vent. Objective Vitals Vital Signs Date Temp Pulse Resp B/P (MAP) Pulse Ox O2 O2 Flow FiO2 Time Delivery Rate 01/23/19 89 19 96 30 13:30 01/23/19 99.8 144/70 11:53 (94) 01/22/19 Mechanical 20:00 Ventilator Trach Collar Intake and Output 01/22/19 01/22/19 01/23/19 1515:00 23:00 07:00 IntakeIntake Total 730 ml 1093 ml 262 ml OutputOutput Total 695 ml 390 ml 1100 ml BalanceBalance 35 ml 703 ml -838 ml Exam NECK: Trach site clean and intact. CARDIAC: S1, S2, no added sounds or murmurs. CHEST: Diminished air entry bilaterally. ABDOMEN: Soft, nontender. No guarding or rebound. Wound clean and dry. EXTREMITIES: No cyanosis, clubbing or edema. NEUROLOGIC: No focal deficits. Results/Medications Result Diagram: 01/23/19 0458 01/23/19 0458 Results 24 hrs Laboratory Tests Test 01/22/19 17:25 01/22/19 23:53 01/23/19 04:58 01/23/19 05:00 Bedside Glucose 95 90 White Blood Count 8.3 Red Blood Count 2.86 L Hemoglobin 7.9 L Hematocrit 25.8 L Mean Corpuscular 90.2 Volume Mean Corpuscular 27.6 L Hemoglobin Mean Corpuscular 30.6 L Hemoglobin Concent Red Cell 16.1 H Distribution Width Platelet Count 250 Mean Platelet 12.1 H Volume Immature 0.200 Granulocytes % Neutrophils % 74.2 Lymphocytes % 14.1 L Monocytes % 7.3 Eosinophils % 3.8 Basophils % 0.4 Nucleated Red 0.0 Blood Cells % Immature 0.020 Granulocytes # Neutrophils # 6.2 Lymphocytes # 1.2 Monocytes # 0.6 Eosinophils # 0.3 Basophils # 0.0 Nucleated Red 0.0 Blood Cells # Sodium Level 141 Potassium Level 4.2 Chloride Level 112 H Carbon Dioxide 22 Level Anion Gap 7 Blood Urea 28 #H Nitrogen Creatinine 1.09 Est Glomerular Filtrat Rate mL/min Glucose Level 82 Lactic Acid Level 0.7 Calcium Level 8.4 Blood Gas Specimen Blood arterial Source Arterial Blood 01/23/2019 4:31:00 Date Drawn AM Arterial Blood pH 7.436 (Temp corrected) Arterial Blood 32.1 L pCO2 (Temp correct) Arterial Blood pO2 85.7 (Temp corrected) Arterial Blood 21.1 L HCO3 Arterial Blood -2.4 Base Excess Arterial Blood 96.8 Oxygen Saturation Nilson Test N/A Arterial Blood Gas LB Puncture Site Arterial 0.1 Blood Carboxyhemog lobin Arterial Blood 0.3 Methemoglobin Blood Gas A-a O2 90.5 H Differential Oxyhemoglobin 96.4 Percent Blood Gas 37.0 Temperature Blood Gas 16.0 Respiration Rate Blood Gas Actual 21 Respiration Rate Blood Gas Modality VENT - AC FiO2 30.0 Blood Gas Tidal 550.0 Volume Blood Gas Low PEEP 5.0 Setting Blood Gas 22.0 Inspiratory Pressure Blood Gas Notified RTR Whom Blood Gas Notified 01/23/2019 4:45:14 Time AM Test 01/23/19 05:11 01/23/19 11:49 Bedside Glucose 93 102 Home Meds Active Scripts Pantoprazole (Protonix) 40 Mg Tabec, 40 MG PO BID, #60 TAB 1 Refill Prov:NAYANA GARCIA. 11/22/18 Reported Medications Calcium Citrate/Vitamin D (Citracal-Vitamin D 200 MG-250) 1 Each Tablet, 1 EACH PO BID, TAB 11/19/18 Ibuprofen* (Ibuprofen*) 600 Mg Tablet, 600 MG PO Q6H PRN for PAIN LEVEL 1-5, TAB 11/19/18 Hydralazine Hcl* (Hydralazine Hcl*) 50 Mg Tablet, 50 MG PO Q6H, #60 TAB 11/19/18 Metformin* (Glucophage*) 500 Mg Tab, 500 MG PO WITH BREAKFAST, #30 TAB 11/19/18 Multivitamins* (Theragran*) 1 Tab Tab, 1 TAB PO DAILY, TAB 11/19/18 Aripiprazole* (Abilify*) 5 Mg Tab, 5 MG PO DAILY, #30 TAB 11/19/18 Diltiazem Hcl* (Cardizem SR*) 120 Mg Cap.sr.12h, 120 MG PO Q12, CAP 11/19/18 Pioglitazone Hcl* (Pioglitazone Hcl*) 30 Mg Tablet, 30 MG PO DAILY, TAB 11/19/18 Escitalopram Oxalate* (Escitalopram Oxalate*) 20 Mg Tablet, 20 MG PO DAILY, #30 TAB 11/19/18 Benazepril Hcl* (Benazepril Hcl*) 20 Mg Tablet, 20 MG PO DAILY, #30 TAB 11/19/18 Tamsulosin Hcl* (Tamsulosin Hcl*) 0.4 Mg Cap.er.24h, 0.4 MG PO HS, CAP 11/19/18 Aspirin Ec (Aspir 81) 81 Mg Tablet.dr, 81 MG PO DAILY, #30 TAB 11/19/18 Loratadine* (Loratadine*) 10 Mg Tablet, 10 MG PO DAILY, #30 TAB 11/19/18 Potassium Chloride* (Potassium Chloride*) 8 Meq Capsule.er, 8 MEQ PO DAILY, CAP 11/19/18 Furosemide* (Furosemide*) 80 Mg Tablet, 80 MG PO DAILY, #30 TAB 11/19/18 Atenolol* (Atenolol*) 50 Mg Tablet, 50 MG PO DAILY, #30 TAB 11/19/18 Digoxin* (Lanoxin*) 0.25 Mg Tablet, 0.25 MG PO DAILY, TAB 11/19/18 Medications Current Medications Oxycodone/ Acetaminophen (Percocet (5/ 325)) 1 tab Q6H PRN GTB PAIN LEVEL 6-10 Last administered on 01/20/19at 09:05; Admin Dose 1 TAB; Start 01/19/19 at 20:30 Acetaminophen (Tylenol Tab) 650 mg Q6H PRN PEG MILD PAIN(1-3)OR ELEVATED TEMP; Start 01/19/19 at 20:30 IV Flush (NS 3 ml) 3 ml PER PROTOCOL IV ; Start 01/19/19 at 20:30 Ondansetron HCl (Zofran Inj) 4 mg Q6H PRN IV NAUSEA AND/OR VOMITING; Start 01/20/19 at 02:30 Albuterol (Ventolin Hfa) 4 puff Q2H RESP THERAPY PRN INH SHORTNESS OF BREATH; Start 01/20/19 at 02:30 Ipratropium [place] (Atrovent Hfa) 4 puff Q2H RESP THERAPY PRN INH SHORTNESS OF BREATH; Start 01/20/19 at 02:30 Pantoprazole (Protonix Iv) 40 mg DAILY@06 IV Last administered on 01/23/19at 05:07; Admin Dose 40 MG; Start 01/20/19 at 06:00 Atenolol (Tenormin) 25 mg DAILY PO Last administered on 01/23/19at 08:40; Admin Dose 25 MG; Start 01/20/19 at 09:00 Digoxin (Digoxin) 0.25 mg DAILY@1300 PO Last administered on 01/22/19at 12:41; Admin Dose 0.25 MG; Start 01/20/19 at 13:00 Furosemide (Lasix) 80 mg DAILY@0600 PO Last administered on 01/23/19at 05:08; Admin Dose 80 MG; Start 01/20/19 at 06:00 Miscellaneous Information 1 ea NOTE XX ; Start 01/20/19 at 02:30 Glucose (Glutose) 15 gm Q15M PRN PO DECREASED GLUCOSE; Start 01/20/19 at 02:30 Glucose (Glutose) 22.5 gm Q15M PRN PO DECREASED GLUCOSE; Start 01/20/19 at 02:30 Dextrose (D50w Syringe) 25 ml Q15M PRN IV DECREASED GLUCOSE; Start 01/20/19 at 02:30 Dextrose (D50w Syringe) 50 ml Q15M PRN IV DECREASED GLUCOSE; Start 01/20/19 at 02:30 Glucagon (Glucagen) 1 mg Q15M PRN IM DECREASED GLUCOSE; Start 01/20/19 at 02:30 Glucose (Glutose) 15 gm Q15M PRN BUCCAL DECREASED GLUCOSE; Start 01/20/19 at 02:30 Miscellaneous Information (Pending [facility] Order For Wound Care) This patient huff... PRN PRN XX WOUND CARE; Start 01/20/19 at 08:30 Morphine Sulfate (morphine) 1 mg Q2H PRN IV breakthrough pain Last administered on 01/23/19at 00:40; Admin Dose 1 MG; Start 01/20/19 at 12:30 Insulin Aspart (Novolog Insulin Pen) NOVOLOG *MILD* ALGORI... Q6 SC ; Start 01/21/19 at 12:00 Meropenem/Sodium Chloride 50 ml @ 100 mls/hr Q12 IVPB Last administered on 01/23/19at 08:39; Admin Dose 100 MLS/HR; Start 01/21/19 at 21:00 Potassium Chloride 10 meq/ Dextrose 1,005 ml @ 80 mls/hr [id number] IV Last administered on 01/23/19at 06:41; Admin Dose 80 MLS/HR; Start 01/21/19 at 15:00 Lorazepam (Ativan) 1 mg Q6H PRN IV AGITATION Last administered on 01/23/19at 00:41; Admin Dose 1 MG; Start 01/21/19 at 18:00 Assessment/Plan Assessment/Plan (Daily) IMP: 1. Chronic respiratory failure with tracheostomy placed several months ago prior to the surgery patient had been weaned off mechanical ventilation for the past 3 weeks. 2. Sigmoid tumor status post resection 3. 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 Azotemia RECS: 1. Continue mechanical ventilation 2. Will wean to trach collar once more awake 3. May soon resume PMV trials for phonation 4. Follow-up pathology KATHY HUTCHINSON MD Jan 23, 2019 14:34
--- NOTE | 2019-01-23 15:56 | CONS ---
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 As stated it our prior notes, he will not be able to tolerate po Xeloda given this cannot be crushed and given through the g tube. We will have to assess if and when he would be a candidate for IV adjuvant chemotherapy #Afib -cards on board. currently off cardizem drip #DM -continue meds per PMD # Anemia - sp one unit PRBC-Hgb 7.9 Patient seen in collaboration with Dr Langley Consultation Date/Type/Reason Admit Date/Time Jan 19, 2019 at 10:30 Initial Consult Date 01/21/19 Type of Consult Oncology Reason for Consultation Sigmoid Colon ca Requesting Provider: GEO DELEON Date/Time of Note DATE: 01/23/19 TIME: 15:56 24 HR Interval Summary Free Text/Dictation resting; seems comfortable on supplement oxygen alert/ awake/ confused no new events reported last night Subjective hx not possible: pt non-verbal Constitutional: requiring O2 Exam/Review of Systems Exam Vitals Vital Signs Date Temp Pulse Resp B/P (MAP) Pulse Ox O2 O2 Flow FiO2 Time Delivery Rate 01/23/19 86 22 99 30 15:24 01/23/19 99.8 144/70 11:53 (94) 01/22/19 Mechanical 20:00 Ventilator Trach Collar Intake and Output 01/22/19 01/22/19 01/23/19 1515:00 23:00 07:00 IntakeIntake Total 730 ml 1093 ml 262 ml OutputOutput Total 695 ml 390 ml 1100 ml BalanceBalance 35 ml 703 ml -838 ml Constitutional: alert, well developed, non-verbal, frail Psych: nl mood/affect, confusion Eyes: nl lids, nl sclera ENMT: nl external ears & nose Neck: other (trach intact) Respiratory: diminished breath sounds (bilaterally at base) Cardiovascular: nl pulses, other (s1s2) Gastrointestinal: soft, other (gt intact) Musculoskeletal: muscle weakness Extremities: edema Neurological: confused Results Result Diagram: 01/23/19 0458 01/23/19 0458 Results 24hrs Laboratory Tests Test 01/22/19 17:25 01/22/19 23:53 01/23/19 04:58 01/23/19 05:00 Bedside Glucose 95 90 White Blood Count 8.3 Red Blood Count 2.86 L Hemoglobin 7.9 L Hematocrit 25.8 L Mean Corpuscular 90.2 Volume Mean Corpuscular 27.6 L Hemoglobin Mean Corpuscular 30.6 L Hemoglobin Concent Red Cell 16.1 H Distribution Width Platelet Count 250 Mean Platelet 12.1 H Volume Immature 0.200 Granulocytes % Neutrophils % 74.2 Lymphocytes % 14.1 L Monocytes % 7.3 Eosinophils % 3.8 Basophils % 0.4 Nucleated Red 0.0 Blood Cells % Immature 0.020 Granulocytes # Neutrophils # 6.2 Lymphocytes # 1.2 Monocytes # 0.6 Eosinophils # 0.3 Basophils # 0.0 Nucleated Red 0.0 Blood Cells # Sodium Level 141 Potassium Level 4.2 Chloride Level 112 H Carbon Dioxide 22 Level Anion Gap 7 Blood Urea 28 #H Nitrogen Creatinine 1.09 Est Glomerular Filtrat Rate mL/min Glucose Level 82 Lactic Acid Level 0.7 Calcium Level 8.4 Blood Gas Specimen Blood arterial Source Arterial Blood 01/23/2019 4:31:00 Date Drawn AM Arterial Blood pH 7.436 (Temp corrected) Arterial Blood 32.1 L pCO2 (Temp correct) Arterial Blood pO2 85.7 (Temp corrected) Arterial Blood 21.1 L HCO3 Arterial Blood -2.4 Base Excess Arterial Blood 96.8 Oxygen Saturation Nilson Test N/A Arterial Blood Gas LB Puncture Site Arterial 0.1 Blood Carboxyhemog lobin Arterial Blood 0.3 Methemoglobin Blood Gas A-a O2 90.5 H Differential Oxyhemoglobin 96.4 Percent Blood Gas 37.0 Temperature Blood Gas 16.0 Respiration Rate Blood Gas Actual 21 Respiration Rate Blood Gas Modality VENT - AC FiO2 30.0 Blood Gas Tidal 550.0 Volume Blood Gas Low PEEP 5.0 Setting Blood Gas 22.0 Inspiratory Pressure Blood Gas Notified RTR Whom Blood Gas Notified 01/23/2019 4:45:14 Time AM Test 01/23/19 05:11 01/23/19 11:49 Bedside Glucose 93 102 Medications Medication Current Medications Oxycodone/ Acetaminophen (Percocet (5/ 325)) 1 tab Q6H PRN GTB PAIN LEVEL 6-10 Last administered on 01/20/19at 09:05; Admin Dose 1 TAB; Start 01/19/19 at 20:30 Acetaminophen (Tylenol Tab) 650 mg Q6H PRN PEG MILD PAIN(1-3)OR ELEVATED TEMP; Start 01/19/19 at 20:30 IV Flush (NS 3 ml) 3 ml PER PROTOCOL IV ; Start 01/19/19 at 20:30 Ondansetron HCl (Zofran Inj) 4 mg Q6H PRN IV NAUSEA AND/OR VOMITING; Start 01/20/19 at 02:30 Albuterol (Ventolin Hfa) 4 puff Q2H RESP THERAPY PRN INH SHORTNESS OF BREATH; Start 01/20/19 at 02:30 Ipratropium [place] (Atrovent Hfa) 4 puff Q2H RESP THERAPY PRN INH SHORTNESS OF BREATH; Start 01/20/19 at 02:30 Pantoprazole (Protonix Iv) 40 mg DAILY@06 IV Last administered on 01/23/19at 05:07; Admin Dose 40 MG; Start 01/20/19 at 06:00 Atenolol (Tenormin) 25 mg DAILY PO Last administered on 01/23/19at 08:40; Admin Dose 25 MG; Start 01/20/19 at 09:00 Digoxin (Digoxin) 0.25 mg DAILY@1300 PO Last administered on 01/22/19at 12:41; Admin Dose 0.25 MG; Start 01/20/19 at 13:00 Furosemide (Lasix) 80 mg DAILY@0600 PO Last administered on 01/23/19at 05:08; Admin Dose 80 MG; Start 01/20/19 at 06:00 Miscellaneous Information 1 ea NOTE XX ; Start 01/20/19 at 02:30 Glucose (Glutose) 15 gm Q15M PRN PO DECREASED GLUCOSE; Start 01/20/19 at 02:30 Glucose (Glutose) 22.5 gm Q15M PRN PO DECREASED GLUCOSE; Start 01/20/19 at 02:3 0 Dextrose (D50w Syringe) 25 ml Q15M PRN IV DECREASED GLUCOSE; Start 01/20/19 at 02:30 Dextrose (D50w Syringe) 50 ml Q15M PRN IV DECREASED GLUCOSE; Start 01/20/19 at 02:30 Glucagon (Glucagen) 1 mg Q15M PRN IM DECREASED GLUCOSE; Start 01/20/19 at 02:30 Glucose (Glutose) 15 gm Q15M PRN BUCCAL DECREASED GLUCOSE; Start 01/20/19 at 02:30 Miscellaneous Information (Pending [place] Order For Wound Care) This patient huff... PRN PRN XX WOUND CARE; Start 01/20/19 at 08:30 Morphine Sulfate (morphine) 1 mg Q2H PRN IV breakthrough pain Last administered on 01/23/19at 00:40; Admin Dose 1 MG; Start 01/20/19 at 12:30 Insulin Aspart (Novolog Insulin Pen) NOVOLOG *MILD* ALGORI... Q6 SC ; Start 01/21/19 at 12:00 Meropenem/Sodium Chloride 50 ml @ 100 mls/hr Q12 IVPB Last administered on 01/23/19at 08:39; Admin Dose 100 MLS/HR; Start 01/21/19 at 21:00 Potassium Chloride 10 meq/ Dextrose 1,005 ml @ 80 mls/hr [id number] IV Last administered on 01/23/19at 06:41; Admin Dose 80 MLS/HR; Start 01/21/19 at 15:00 Lorazepam (Ativan) 1 mg Q6H PRN IV AGITATION Last administered on 01/23/19at 00:41; Admin Dose 1 MG; Start 01/21/19 at 18:00 DORIAN MOSS Jan 23, 2019 15:56
--- NOTE | 2019-01-23 17:29 | PN ---
Date/Time of Note Date/Time of Note DATE: 01/23/19 TIME: 17:28 Assessment/Plan VTE Prophylaxis Risk score (from [facility] [place]0 risk: 6 SCD applied (from [facility] [place]): Yes Pharmacological prophylaxis: NA/contraindicated Pharm contraindication: surgical contra Lines/Catheters IV Catheter Type (from [facility]): Saline Lock Urinary Cath still in place: No Assessment/Plan Hospital Course 78-year-old male who is trach dependent with a history of diabetes, atrial fibrillation, obstructive uropathy, dysphagia status post G-tube, sigmoid/colon carcinoma status post stent admitted to ICU status post Laparoscopic converted to open low anterior resection with end colostomy, splenic mobilization and a laparoscopic appendectomy. 1. 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 Trach dependent respiratory failure: Currently on a vent -Pulmonary to manage 3. Atrial fibrillation: Continue meds. Adjust as needed. Will hold Cardizem and atenolol given current hypotension 4. Hypotension-resolved -Improved with bolus 5. Diabetes: Insulin 6. Acute kidney injury on CKD -Nephrology consultation appreciated 7. UTI -Urine culture is growing Klebsiella pneumonia ESBL -Continue meropenem -UA is positive 8. Dysphagia: Status post G-tube Prophylaxis: SCDs DC planning: Anticipate DC back to [place] this coming week, follow-up on surgery recommendations for DC planning Result Diagram: 01/23/19 0458 01/23/19 0458 Results 24hrs Laboratory Tests Test 01/22/19 23:53 01/23/19 04:58 01/23/19 05:00 01/23/19 05:11 Bedside Glucose 90 93 White Blood Count 8.3 Red Blood Count 2.86 L Hemoglobin 7.9 L Hematocrit 25.8 L Mean Corpuscular 90.2 Volume Mean Corpuscular 27.6 L Hemoglobin Mean Corpuscular 30.6 L Hemoglobin Concent Red Cell 16.1 H Distribution Width Platelet Count 250 Mean Platelet 12.1 H Volume Immature 0.200 Granulocytes % Neutrophils % 74.2 Lymphocytes % 14.1 L Monocytes % 7.3 Eosinophils % 3.8 Basophils % 0.4 Nucleated Red 0.0 Blood Cells % Immature 0.020 Granulocytes # Neutrophils # 6.2 Lymphocytes # 1.2 Monocytes # 0.6 Eosinophils # 0.3 Basophils # 0.0 Nucleated Red 0.0 Blood Cells # Sodium Level 141 Potassium Level 4.2 Chloride Level 112 H Carbon Dioxide 22 Level Anion Gap 7 Blood Urea 28 #H Nitrogen Creatinine 1.09 Est Glomerular Filtrat Rate mL/min Glucose Level 82 Lactic Acid Level 0.7 Calcium Level 8.4 Blood Gas Specimen Blood arterial Source Arterial Blood 01/23/2019 4:31:00 Date Drawn AM Arterial Blood pH 7.436 (Temp corrected) Arterial Blood 32.1 L pCO2 (Temp correct) Arterial Blood pO2 85.7 (Temp corrected) Arterial Blood 21.1 L HCO3 Arterial Blood -2.4 Base Excess Arterial Blood 96.8 Oxygen Saturation Nilson Test N/A Arterial Blood Gas LB Puncture Site Arterial 0.1 Blood Carboxyhemog lobin Arterial Blood 0.3 Methemoglobin Blood Gas A-a O2 90.5 H Differential Oxyhemoglobin 96.4 Percent Blood Gas 37.0 Temperature Blood Gas 16.0 Respiration Rate Blood Gas Actual 21 Respiration Rate Blood Gas Modality VENT - AC FiO2 30.0 Blood Gas Tidal 550.0 Volume Blood Gas Low PEEP 5.0 Setting Blood Gas 22.0 Inspiratory Pressure Blood Gas Notified RTR Whom Blood Gas Notified 01/23/2019 4:45:14 Time AM Test 01/23/19 11:49 Bedside Glucose 102 Subjective 24 Hr Interval Summary Constitutional: no complaints Exam/Review of Systems Exam Vitals Vital Signs Date Temp Pulse Resp B/P (MAP) Pulse Ox O2 O2 Flow FiO2 Time Delivery Rate 01/23/19 83 20 96 30 17:15 01/23/19 99.5 123/59 15:53 (80) 01/22/19 Mechanical 20:00 Ventilator Trach Collar Intake and Output 01/22/19 01/22/19 01/23/19 1515:00 23:00 07:00 IntakeIntake Total 730 ml 1093 ml 262 ml OutputOutput Total 695 ml 390 ml 1100 ml BalanceBalance 35 ml 703 ml -838 ml Constitutional: alert Respiratory: clear to auscultation Cardiovascular: regular rate and rhythm Gastrointestinal: soft; No distended Musculoskeletal: nl extremities to inspection Results Results 24hrs Laboratory Tests Test 01/22/19 23:53 01/23/19 04:58 01/23/19 05:00 01/23/19 05:11 Bedside Glucose 90 93 White Blood Count 8.3 Red Blood Count 2.86 L Hemoglobin 7.9 L Hematocrit 25.8 L Mean Corpuscular 90.2 Volume Mean Corpuscular 27.6 L Hemoglobin Mean Corpuscular 30.6 L Hemoglobin Concent Red Cell 16.1 H Distribution Width Platelet Count 250 Mean Platelet 12.1 H Volume Immature 0.200 Granulocytes % Neutrophils % 74.2 Lymphocytes % 14.1 L Monocytes % 7.3 Eosinophils % 3.8 Basophils % 0.4 Nucleated Red 0.0 Blood Cells % Immature 0.020 Granulocytes # Neutrophils # 6.2 Lymphocytes # 1.2 Monocytes # 0.6 Eosinophils # 0.3 Basophils # 0.0 Nucleated Red 0.0 Blood Cells # Sodium Level 141 Potassium Level 4.2 Chloride Level 112 H Carbon Dioxide 22 Level Anion Gap 7 Blood Urea 28 #H Nitrogen Creatinine 1.09 Est Glomerular Filtrat Rate mL/min Glucose Level 82 Lactic Acid Level 0.7 Calcium Level 8.4 Blood Gas Specimen Blood arterial Source Arterial Blood 01/23/2019 4:31:00 Date Drawn AM Arterial Blood pH 7.436 (Temp corrected) Arterial Blood 32.1 L pCO2 (Temp correct) Arterial Blood pO2 85.7 (Temp corrected) Arterial Blood 21.1 L HCO3 Arterial Blood -2.4 Base Excess Arterial Blood 96.8 Oxygen Saturation Nilson Test N/A Arterial Blood Gas LB Puncture Site Arterial 0.1 Blood Carboxyhemog lobin Arterial Blood 0.3 Methemoglobin Blood Gas A-a O2 90.5 H Differential Oxyhemoglobin 96.4 Percent Blood Gas 37.0 Temperature Blood Gas 16.0 Respiration Rate Blood Gas Actual 21 Respiration Rate Blood Gas Modality VENT - AC FiO2 30.0 Blood Gas Tidal 550.0 Volume Blood Gas Low PEEP 5.0 Setting Blood Gas 22.0 Inspiratory Pressure Blood Gas Notified RTR Whom Blood Gas Notified 01/23/2019 4:45:14 Time AM Test 01/23/19 11:49 Bedside Glucose 102 Medications Medication Current Medications Oxycodone/ Acetaminophen (Percocet (5/ 325)) 1 tab Q6H PRN GTB PAIN LEVEL 6-10 Last administered on 01/20/19at 09:05; Admin Dose 1 TAB; Start 01/19/19 at 20:30 Acetaminophen (Tylenol Tab) 650 mg Q6H PRN PEG MILD PAIN(1-3)OR ELEVATED TEMP; Start 01/19/19 at 20:30 IV Flush (NS 3 ml) 3 ml PER PROTOCOL IV ; Start 01/19/19 at 20:30 Ondansetron HCl (Zofran Inj) 4 mg Q6H PRN IV NAUSEA AND/OR VOMITING; Start 01/20/19 at 02:30 Albuterol (Ventolin Hfa) 4 puff Q2H RESP THERAPY PRN INH SHORTNESS OF BREATH; Start 01/20/19 at 02:30 Ipratropium [place] (Atrovent Hfa) 4 puff Q2H RESP THERAPY PRN INH SHORTNESS OF BREATH; Start 01/20/19 at 02:30 Pantoprazole (Protonix Iv) 40 mg DAILY@06 IV Last administered on 01/23/19at 05:07; Admin Dose 40 MG; Start 01/20/19 at 06:00 Atenolol (Tenormin) 25 mg DAILY PO Last administered on 01/23/19at 08:40; Admin Dose 25 MG; Start 01/20/19 at 09:00 Digoxin (Digoxin) 0.25 mg DAILY@1300 PO Last administered on 01/22/19at 12:41; Admin Dose 0.25 MG; Start 01/20/19 at 13:00 Furosemide (Lasix) 80 mg DAILY@0600 PO Last administered on 01/23/19at 05:08; Admin Dose 80 MG; Start 01/20/19 at 06:00 Miscellaneous Information 1 ea NOTE XX ; Start 01/20/19 at 02:30 Glucose (Glutose) 15 gm Q15M PRN PO DECREASED GLUCOSE; Start 01/20/19 at 02:30 Glucose (Glutose) 22.5 gm Q15M PRN PO DECREASED GLUCOSE; Start 01/20/19 at 02:30 Dextrose (D50w Syringe) 25 ml Q15M PRN IV DECREASED GLUCOSE; Start 01/20/19 at 02:30 Dextrose (D50w Syringe) 50 ml Q15M PRN IV DECREASED GLUCOSE; Start 01/20/19 at 02:30 Glucagon (Glucagen) 1 mg Q15M PRN IM DECREASED GLUCOSE; Start 01/20/19 at 02:30 Glucose (Glutose) 15 gm Q15M PRN BUCCAL DECREASED GLUCOSE; Start 01/20/19 at 02:30 Miscellaneous Information (Pending [facility] Order For Wound Care) This patient huff... PRN PRN XX WOUND CARE; Start 01/20/19 at 08:30 Morphine Sulfate (morphine) 1 mg Q2H PRN IV breakthrough pain Last administered on 01/23/19at 00:40; Admin Dose 1 MG; Start 01/20/19 at 12:30 Insulin Aspart (Novolog Insulin Pen) NOVOLOG *MILD* ALGORI... Q6 SC ; Start 01/21/19 at 12:00 Meropenem/Sodium Chloride 50 ml @ 100 mls/hr Q12 IVPB Last administered on 01/23/19at 08:39; Admin Dose 100 MLS/HR; Start 01/21/19 at 21:00 Potassium Chloride 10 meq/ Dextrose 1,005 ml @ 80 mls/hr [id number] IV Last administered on 01/23/19 06:41; Admin Dose 80 MLS/HR; Start 01/21/19 at 15:00 Lorazepam (Ativan) 1 mg Q6H PRN IV AGITATION Last administered on 01/23/19 00:41; Admin Dose 1 MG; Start 01/21/19 at 18:00 GEO DELEON Jan 23, 2019 17:29
[2019-01-23] MEDS: ACETAMINOPHEN 325 MG TAB PEG PRN (21:56)
[2019-01-24] VITALS (22 sets, daily range): BP systolic 103–143; BP diastolic 54–75; PULSE 57–97; RESP 16–26
[2019-01-24] MEDS: FUROSEMIDE 40 MG TAB PO SCH (05:59)
[2019-01-24] MEDS: PANTOPRAZOLE 40 MG INJ IV SCH (05:59)
[2019-01-24] MEDS: INSULIN ASPART [NOVOLOG] 3 ML PEN SC SCH ×5 (06:00→23:45)
[2019-01-24] MEDS: ATENOLOL 50 MG TAB PO SCH (08:39)
[2019-01-24] MEDS: MEROPENEM 1 GM/50ML(PMX) 50 ML IVPB SCH ×2 (08:39→21:03)
--- NOTE | 2019-01-24 09:50 | CONS ---
Assessment/Plan Assessment/Plan Assessment/Plan (Daily) Ventilator setting; AC of 16, tidal volume 550, PEEP of 5, 30% FiO2. Assessment recommendations; 1. Patient with history of chronic respiratory failure admitted for sigmoid resection because of recently diagnosed sigmoid adenocarcinoma. 2. History of recent severe sepsis and pneumonia, patient however was weaned down to T-piece at rehab center. Now requiring invasive mechanical ventilation because of recent surgery. 3. History of recent severe pneumonia with significant radiological improv ement. Continue current supportive care. Start weaning from ventilator as tolerated. Consultation Date/Type/Reason Admit Date/Time Jan 19, 2019 at 10:30 Initial Consult Date 01/21/19 Type of Consult Pulmonary Patient's condition is stable. Has remained hemodynamically stable. General exam; elderly male, on ventilator via tracheostomy, currently no distress. Reason for Consultation HEENT exam; supple neck, no JVD. No lymphadenopathy. Midline trachea. No thyromegaly. Tracheostomy in place. Patient has fair dentition. Chest exam; clear to auscultation. S1-S2 audible, no murmurs. Regular rhythm. Abdomen exam; soft, nondistended. G-tube in place. Midline dressing in place. Left lower quadrant colostomy in place. Bowel sounds audible. Abdomen is nondistended. Extremity exam; no edema. [employer] exam; no focal deficit. Requesting Provider: GEO DELEON Date/Time of Note DATE: 01/24/19 TIME: 09:48 Exam/Review of Systems Exam Vitals Vital Signs Date Temp Pulse Resp B/P (MAP) Pulse Ox O2 O2 Flow FiO2 Time Delivery Rate 01/24/19 68 22 97 30 09:16 01/24/19 99.3 115/57 07:46 (76) 01/22/19 Mechanical 20:00 Ventilator Trach Collar Intake and Output 01/23/19 01/23/19 01/24/19 1515:00 23:00 07:00 IntakeIntake Total 50 ml 1370 ml 1461 ml OutputOutput Total 950 ml 1425 ml BalanceBalance 50 ml 420 ml 36 ml Results Result Diagram: 01/23/19 0458 01/23/19 0458 Results 24hrs Laboratory Tests Test 01/23/19 11:49 01/23/19 17:26 01/24/19 00:24 01/24/19 06:00 Bedside Glucose 102 112 108 114 Medications Medication Current Medications Oxycodone/ Acetaminophen (Percocet (5/ 325)) 1 tab Q6H PRN GTB PAIN LEVEL 6-10 Last administered on 01/20/19at 09:05; Admin Dose 1 TAB; Start 01/19/19 at 20:30 Acetaminophen (Tylenol Tab) 650 mg Q6H PRN PEG MILD PAIN(1-3)OR ELEVATED TEMP Last administered on 01/23/19at 21:56; Admin Dose 650 MG; Start 01/19/19 at 20:30 IV Flush (NS 3 ml) 3 ml PER PROTOCOL IV ; Start 01/19/19 at 20:30 Ondansetron HCl (Zofran Inj) 4 mg Q6H PRN IV NAUSEA AND/OR VOMITING; Start 01/20/19 at 02:30 Albuterol (Ventolin Hfa) 4 puff Q2H RESP THERAPY PRN INH SHORTNESS OF BREATH; Start 01/20/19 at 02:30 Ipratropium [place] (Atrovent Hfa) 4 puff Q2H RESP THERAPY PRN INH SHORTNESS OF BREATH; Start 01/20/19 at 02:30 Pantoprazole (Protonix Iv) 40 mg DAILY@06 IV Last administered on 01/24/19at 05:59; Admin Dose 40 MG; Start 01/20/19 at 06:00 Atenolol (Tenormin) 25 mg DAILY PO Last administered on 01/24/19at 08:39; Admin Dose 25 MG; Start 01/20/19 at 09:00 Digoxin (Digoxin) 0.25 mg DAILY@1300 PO Last administered on 01/22/19at 12:41; Admin Dose 0.25 MG; Start 01/20/19 at 13:00 Furosemide (Lasix) 80 mg DAILY@0600 PO Last administered on 01/24/19at 05:59; Admin Dose 80 MG; Start 01/20/19 at 06:00 Miscellaneous Information 1 ea NOTE XX ; Start 01/20/19 at 02:30 Glucose (Glutose) 15 gm Q15M PRN PO DECREASED GLUCOSE; Start 01/20/19 at 02:30 Glucose (Glutose) 22.5 gm Q15M PRN PO DECREASED GLUCOSE; Start 01/20/19 at 02:30 Dextrose (D50w Syringe) 25 ml Q15M PRN IV DECREASED GLUCOSE; Start 01/20/19 at 02:30 Dextrose (D50w Syringe) 50 ml Q15M PRN IV DECREASED GLUCOSE; Start 01/20/19 at 02:30 Glucagon (Glucagen) 1 mg Q15M PRN IM DECREASED GLUCOSE; Start 01/20/19 at 02:30 Glucose (Glutose) 15 gm Q15M PRN BUCCAL DECREASED GLUCOSE; Start 01/20/19 at 02:30 Miscellaneous Information (Pending [facility] Order For Wound Care) This patient huff... PRN PRN XX WOUND CARE; Start 01/20/19 at 08:30 Morphine Sulfate (morphine) 1 mg Q2H PRN IV breakthrough pain Last administered on 01/23/19 20:08; Admin Dose 1 MG; Start 01/20/19 at 12:30 Insulin Aspart (Novolog Insulin Pen) NOVOLOG *MILD* ALGORI... Q6 SC ; Start 01/21/19 at 12:00 Meropenem/Sodium Chloride 50 ml @ 100 mls/hr Q12 IVPB Last administered on 08:39; Admin Dose 100 MLS/HR; Start 01/21/19 at 21:00 Potassium Chloride 10 meq/ Dextrose 1,005 ml @ 80 mls/hr [id number] IV Last administered on 01/23/19 23:15; Admin Dose 80 MLS/HR; Start 01/21/19 at 15:00 Lorazepam (Ativan) 1 mg Q6H PRN IV AGITATION Last administered on 01/23/19 20:09; Admin Dose 1 MG; Start 01/21/19 at 18:00 OK SOOD Jan 24, 2019 09:50
--- NOTE | 2019-01-24 11:30 | PN ---
Date/Time of Note Date/Time of Note DATE: 01/24/19 TIME: 11:27 Assessment/Plan Lines/Catheters IV Catheter Type (from Nrs): Saline Lock [place] in Place (from Nrs): No Assessment/Plan Chief Complaint/Hosp Course 1. Sigmoid/rectal adenocarcinoma with obstruction, status post stent and significant adhesions, colorectal bleed with anemia: Status post laparoscopic co nverted to open low anterior resection with end colostomy and laparoscopic appendectomy 01/19/19 -continue tube feeds titrate to goal, monitor bowel function -ambulate as able -ice pack to abdominal wall -continue Drain -Pain management -Close monitoring -path pending 2. Fever, improved -close monitoring, further workup if persistent 3. UTI s/p abx per sensitivity -frequent bladder emptying/cath care 4. Hypochromic anemia: Some blood noted in ostomy bag; drop in H&H: Status post PRBC transfusion -Monitor for now and transfuse as needed 5. VDRF: Mild bibasilar atelectasis versus airspace disease -Pulmonary toilet 6. Dysphagia status post PEG tube -tube feed as tolerated 7. SIMI: -Limit nephrotoxic meds -Renally dose meds -Judicious fluids Thank you, Subjective 24 Hr Interval Summary Fevers improved. Tolerating TF. Bowel function. Appears comfortable. No labored breathing, congested cough, vomiting, sz. Min blood. No bloating. Exam/Review of Systems Vital Signs Vitals Vital Signs Date Temp Pulse Resp B/P (MAP) Pulse Ox O2 O2 Flow FiO2 Time Delivery Rate 01/24/19 99.0 66 26 118/58 98 10:00 (78) 01/24/19 30 09:16 01/22/19 Mechanical 20:00 Ventilator Trach Collar Intake and Output 01/23/19 01/23/19 01/24/19 1414:59 22:59 06:59 IntakeIntake Total 50 ml 1370 ml 1461 ml OutputOutput Total 950 ml 1425 ml BalanceBalance 50 ml 420 ml 36 ml Exam Free Text/Dictation Constitutional: alert; follows simple commands Psych: confusion Head: normocephalic, atraumatic Eyes: nl conjunctiva, nl lids, nl sclera ENMT: nl external ears & nose, mucosa pink and moist; No nl lips & teeth (Edentulous-bottom) Neck: supple, non-tender, other (Tracheostomy) Respiratory: normal air movement; No congested cough, No labored breathing Cardiovascular: regular rate and rhythm (Sinus rhythm); No edema Gastrointestinal: soft, distended (Minimal), other (Incision sites: (Midline: Staple line clean, no cristina-incisional erythema/drainage); ELIUD drain serosanguineous; colostomy: min dusky, functional) Genitourinary - Male: nl penis, nl scrotum Musculoskeletal: nl extremities to inspection Extremities: normal pulses, pitting pedal edema Neurological: confused; No nl mental status, No nl speech, No nl strength (Generalized weakness) Skin: No rash or lesions Results Result Diagram: 01/23/19 0458 01/23/19 0458 NIMO HOPKINS MD Jan 24, 2019 11:30
--- NOTE | 2019-01-24 11:41 | CONS ---
Assessment/Plan Assessment/Plan Hospital Course (Demo Recall) IMPRESSION: 1. Tachycardia, intermittent consistent with sinus tachycardia, likely in the setting of pain and anxiety-improved 2. Hypotension, borderline after given pain meds, ensure good volume status. 3. Abnormal electrocardiogram, right bundle branch block, secondary repolarization abnormalities, assess for heart block, rule out acute coronary syndrome postoperatively. 4. Colon carcinoma, status post resection 5. Anemia. 6. Renal failure, improved currently 7. Altered mental state/encephalopathy. 8. Diabetes mellitus. 9. Leukocytosis. 10. Hypernatremia. Recc: -Tele -Continue BB as tolerated only -Follow volume status clsoely on daily lasix -Continue abx's and f/u cx data -routine post-op care -pain control Consultation Date/Type/Reason Admit Date/Time Jan 19, 2019 at 10:30 Initial Consult Date 01/20/19 Type of Consult Cardiology Reason for Consultation tachycardia Requesting Provider: GEO DELEON Date/Time of Note DATE: 01/24/19 TIME: 11:38 Exam/Review of Systems Vital Signs Vitals Vital Signs Date Temp Pulse Resp B/P (MAP) Pulse Ox O2 O2 Flow FiO2 Time Delivery Rate 01/24/19 64 24 97 30 11:15 01/24/19 99.0 118/58 10:00 (78) 01/22/19 Mechanical 20:00 Ventilator Trach Collar Intake and Output 01/23/19 01/23/19 01/24/19 1515:00 23:00 07:00 IntakeIntake Total 50 ml 1370 ml 1461 ml OutputOutput Total 950 ml 1425 ml BalanceBalance 50 ml 420 ml 36 ml Exam Exam Review of Systems: CONSTITUTIONAL: No fevers, chills. PULMONARY: trached CARDIOVASCULAR: No chest pain/palpitations GASTROINTESTINAL: No nausea/vomiting. GENITOURINARY: No hematuria/dysuria. MUSCULOSKELETAL: No myagias/arthalgias. PSYCHIATRIC: The patient denies depression. NEUROLOGIC: No weakness Constitutional: alert Psych: no complaints Head: normocephalic ENMT: other (trached) Neck: supple, jvd (9 cm water) Respiratory: diminished breath sounds (at bases/B) Cardiovascular: regular rate and rhythm Gastrointestinal: soft, other (covered by dressing) Musculoskeletal: muscle weakness (generalized) Extremities: edema (none) Neurological: other (NO focal deficits) Labs Result Diagram: 01/23/19 0458 01/23/19 0458 Results 24hrs Laboratory Tests Test 01/23/19 11:49 01/23/19 17:26 01/24/19 00:24 01/24/19 06:00 Bedside Glucose 102 112 108 114 Test 01/24/19 11:27 Bedside Glucose 115 Medications Medications Current Medications Oxycodone/ Acetaminophen (Percocet (5/ 325)) 1 tab Q6H PRN GTB PAIN LEVEL 6-10 Last administered on 01/20/19 09:05; Admin Dose 1 TAB; Start 01/19/19 at 20:30 Acetaminophen (Tylenol Tab) 650 mg Q6H PRN PEG MILD PAIN(1-3)OR ELEVATED TEMP Last administered on 01/23/19 21:56; Admin Dose 650 MG; Start 01/19/19 at 20:30 IV Flush (NS 3 ml) 3 ml PER PROTOCOL IV ; Start 01/19/19 at 20:30 Ondansetron HCl (Zofran Inj) 4 mg Q6H PRN IV NAUSEA AND/OR VOMITING; Start 01/20/19 at 02:30 Albuterol (Ventolin Hfa) 4 puff Q2H RESP THERAPY PRN INH SHORTNESS OF BREATH; Start 01/20/19 at 02:30 Ipratropium [place] (Atrovent Hfa) 4 puff Q2H RESP THERAPY PRN INH SHORTNESS OF BREATH; Start 01/20/19 at 02:30 Pantoprazole (Protonix Iv) 40 mg DAILY@06 IV Last administered on 01/24/19 05:59; Admin Dose 40 MG; Start 01/20/19 at 06:00 Atenolol (Tenormin) 25 mg DAILY PO Last administered on 01/24/19 08:39; Admin Dose 25 MG; Start 01/20/19 at 09:00 Digoxin (Digoxin) 0.25 mg DAILY@1300 PO Last administered on 01/22/19 12:41; Admin Dose 0.25 MG; Start 01/20/19 at 13:00 Furosemide (Lasix) 80 mg DAILY@0600 PO Last administered on 01/24/19 05:59; Admin Dose 80 MG; Start 01/20/19 at 06:00 Miscellaneous Information 1 ea NOTE XX ; Start 01/20/19 at 02:30 Glucose (Glutose) 15 gm Q15M PRN PO DECREASED GLUCOSE; Start 01/20/19 at 02:30 Glucose (Glutose) 22.5 gm Q15M PRN PO DECREASED GLUCOSE; Start 01/20/19 at 02:30 Dextrose (D50w Syringe) 25 ml Q15M PRN IV DECREASED GLUCOSE; Start 01/20/19 at 02:30 Dextrose (D50w Syringe) 50 ml Q15M PRN IV DECREASED GLUCOSE; Start 01/20/19 at 02:30 Glucagon (Glucagen) 1 mg Q15M PRN IM DECREASED GLUCOSE; Start 01/20/19 at 02:30 Glucose (Glutose) 15 gm Q15M PRN BUCCAL DECREASED GLUCOSE; Start 01/20/19 at 02:30 Miscellaneous Information [facility] This patient huff... PRN PRN XX WOUND CARE; Start 01/20/19 at 08:30 Morphine Sulfate (morphine) 1 mg Q2H PRN IV breakthrough pain Last administered on 01/23/19 20:08; Admin Dose 1 MG; Start 01/20/19 at 12:30 Insulin Aspart (Novolog Insulin Pen) NOVOLOG *MILD* ALGORI... Q6 SC ; Start 01/21/19 at 12:00 Meropenem/Sodium Chloride 50 ml @ 100 mls/hr Q12 IVPB Last administered on 01/24/19 08:39; Admin Dose 100 MLS/HR; Start 01/21/19 at 21:00 Potassium Chloride 10 meq/ Dextrose 1,005 ml @ 80 mls/hr [id number] IV Last administered on 01/23/19at 23:15; Admin Dose 80 MLS/HR; Start 01/21/19 at 15:00 Lorazepam (Ativan) 1 mg Q6H PRN IV AGITATION Last administered on 01/23/19 20:09; Admin Dose 1 MG; Start 01/21/19 at 18:00 TWAN ESTEVEZ Jan 24, 2019 11:40
--- NOTE | 2019-01-24 11:52 | CONS ---
Assessment/Plan Assessment/Plan Assessment/Plan (Daily) 1. Acute kidney injury on CKD III due to ATN and prerenal azotemia 2. 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 acute on chronic respiratory failure s/p tracheostomy 4. Atrial fibrillation:rate controlled 5. H/o Diabetes melitus 6. H/O HTN 7. Dysphagia: Status post G-tube 8. UTI with Urine Cx growing Klebsiella ESBL Plan: Na 141, BUN/Cr 20/12.09- continue D5W with KCl 10mEQ at 50 cc/hr IV abx meropenem for ESBL Klebsiella UTI Renally dose all abx, monitor electrolytes General surgery following will follow up Consultation Date/Type/Reason Admit Date/Time Jan 19, 2019 at 10:30 Initial Consult Date 01/21/19 Type of Consult NEPHROLOGY Requesting Provider: GEO DELEON Date/Time of Note DATE: 01/24/19 TIME: 11:52 24 HR Interval Summary Free Text/Dictation on cool aerosol for trach Exam/Review of Systems Exam Vitals Vital Signs Date Temp Pulse Resp B/P (MAP) Pulse Ox O2 O2 Flow FiO2 Time Delivery Rate 01/24/19 64 24 97 30 11:15 01/24/19 99.0 118/58 10:00 (78) 01/22/19 Mechanical 20:00 Ventilator Trach Collar Intake and Output 01/23/19 01/23/19 01/24/19 1515:00 23:00 07:00 IntakeIntake Total 50 ml 1370 ml 1461 ml OutputOutput Total 950 ml 1425 ml BalanceBalance 50 ml 420 ml 36 ml Results Result Diagram: 01/23/19 0458 01/23/19 0458 Results 24hrs Laboratory Tests Test 01/23/19 17:26 01/24/19 00:24 01/24/19 06:00 01/24/19 11:27 Bedside Glucose 112 108 114 115 Medications Medication Current Medications Oxycodone/ Acetaminophen (Percocet (5/ 325)) 1 tab Q6H PRN GTB PAIN LEVEL 6-10 Last administered on 01/20/19at 09:05; Admin Dose 1 TAB; Start 01/19/19 at 20:30 Acetaminophen (Tylenol Tab) 650 mg Q6H PRN PEG MILD PAIN(1-3)OR ELEVATED TEMP Last administered on 01/23/19at 21:56; Admin Dose 650 MG; Start 01/19/19 at 20:30 IV Flush (NS 3 ml) 3 ml PER PROTOCOL IV ; Start 01/19/19 at 20:30 Ondansetron HCl (Zofran Inj) 4 mg Q6H PRN IV NAUSEA AND/OR VOMITING; Start 01/20/19 at 02:30 Albuterol (Ventolin Hfa) 4 puff Q2H RESP THERAPY PRN INH SHORTNESS OF BREATH; Start 01/20/19 at 02:30 Ipratropium [place] (Atrovent Hfa) 4 puff Q2H RESP THERAPY PRN INH SHORTNESS OF BREATH; Start 01/20/19 at 02:30 Pantoprazole (Protonix Iv) 40 mg DAILY@06 IV Last administered on 01/24/19at 05:59; Admin Dose 40 MG; Start 01/20/19 at 06:00 Atenolol (Tenormin) 25 mg DAILY PO Last administered on 01/24/19at 08:39; Admin Dose 25 MG; Start 01/20/19 at 09:00 Digoxin (Digoxin) 0.25 mg DAILY@1300 PO Last administered on 01/22/19at 12:41; Admin Dose 0.25 MG; Start 01/20/19 at 13:00 Furosemide (Lasix) 80 mg DAILY@0600 PO Last administered on 01/24/19at 05:59; Admin Dose 80 MG; Start 01/20/19 at 06:00 Miscellaneous Information 1 ea NOTE XX ; Start 01/20/19 at 02:30 Glucose (Glutose) 15 gm Q15M PRN PO DECREASED GLUCOSE; Start 01/20/19 at 02:30 Glucose (Glutose) 22.5 gm Q15M PRN PO DECREASED GLUCOSE; Start 01/20/19 at 02:30 Dextrose (D50w Syringe) 25 ml Q15M PRN IV DECREASED GLUCOSE; Start 01/20/19 at 02:30 Dextrose (D50w Syringe) 50 ml Q15M PRN IV DECREASED GLUCOSE; Start 01/20/19 at 02:30 Glucagon (Glucagen) 1 mg Q15M PRN IM DECREASED GLUCOSE; Start 01/20/19 at 02:30 Glucose (Glutose) 15 gm Q15M PRN BUCCAL DECREASED GLUCOSE; Start 01/20/19 at 02:30 Miscellaneous Information (Pending [facility] Order For Wound Care) This patient huff... PRN PRN XX WOUND CARE; Start 01/20/19 at 08:30 Morphine Sulfate (morphine) 1 mg Q2H PRN IV breakthrough pain Last administered on 01/23/19at 20:08; Admin Dose 1 MG; Start 01/20/19 at 12:30 Insulin Aspart (Novolog Insulin Pen) NOVOLOG *MILD* ALGORI... Q6 SC ; Start 01/21/19 at 12:00 Meropenem/Sodium Chloride 50 ml @ 100 mls/hr Q12 IVPB Last administered on 01/24/19 08:39; Admin Dose 100 MLS/HR; Start 01/21/19 at 21:00 Potassium Chloride 10 meq/ Dextrose 1,005 ml @ 80 mls/hr [id number] IV Last administered on 01/23/19at 23:15; Admin Dose 80 MLS/HR; Start 01/21/19 at 15:00 Lorazepam (Ativan) 1 mg Q6H PRN IV AGITATION Last administered on 01/23/19at 20:09; Admin Dose 1 MG; Start 01/21/19 at 18:00 RENAN HERNANDEZ MD Jan 24, 2019 11:52
[2019-01-24] MEDS: DIGOXIN 0.25 MG TAB PO SCH (12:11)
--- NOTE | 2019-01-24 13:46 | PN ---
Date/Time of Note Date/Time of Note DATE: 01/24/19 TIME: 13:46 Assessment/Plan VTE Prophylaxis Risk score (from Ns)>0 risk: 12 SCD applied (from Ns): Yes Pharmacological prophylaxis: heparin Lines/Catheters IV Catheter Type (from Nrsg): [place] Urinary Cath still in place: No Assessment/Plan Hospital Course 78-year-old male who is trach dependent with a history of diabetes, atrial fibrillation, obstructive uropathy, dysphagia status post G-tube, sigmoid/colon carcinoma status post stent admitted to ICU status post Laparoscopic converted to open low anterior resection with end colostomy, splenic mobilization and a laparoscopic appendectomy. 1. 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 Trach dependent respiratory failure: Currently on a vent -Pulmonary to manage 3. Atrial fibrillation: Continue meds. Adjust as needed. Will hold Cardizem and atenolol given current hypotension 4. Hypotension-resolved -Improved with bolus 5. Diabetes: Insulin 6. Acute kidney injury on CKD -Nephrology consultation appreciated 7. UTI -Urine culture is growing Klebsiella pneumonia ESBL -Continue meropenem -UA is positive 8. Dysphagia: Status post G-tube Prophylaxis: SCDs DC planning: Anticipate DC back to [place] this coming week, follow-up on surgery recommendations for DC planning Result Diagram: 01/23/19 0458 01/23/19 0458 Results 24hrs Laboratory Tests Test 01/23/19 17:26 01/24/19 00:24 01/24/19 06:00 01/24/19 11:27 Bedside Glucose 112 108 114 115 Subjective 24 Hr Interval Summary Free Text/Dictation No acute events Stable Comfortable Exam/Review of Systems Exam Vitals Vital Signs Date Temp Pulse Resp B/P (MAP) Pulse Ox O2 O2 Flow FiO2 Time Delivery Rate 01/24/19 98 12.0 13:37 01/24/19 30 12:12 01/24/19 64 12:01 01/24/19 98.9 20 120/60 11:53 (80) 01/22/19 Mechanical 20:00 Ventilator Trach Collar Intake and Output 01/23/19 01/23/19 01/24/19 1515:00 23:00 07:00 IntakeIntake Total 50 ml 1370 ml 1461 ml OutputOutput Total 950 ml 1425 ml BalanceBalance 50 ml 420 ml 36 ml Exam Appears comfortable on ventilator Trach Alert, interactive Results Results 24hrs Laboratory Tests Test 01/23/19 17:26 01/24/19 00:24 01/24/19 06:00 01/24/19 11:27 Bedside Glucose 112 108 114 115 Medications Medication Current Medications Oxycodone/ Acetaminophen (Percocet (5/ 325)) 1 tab Q6H PRN GTB PAIN LEVEL 6-10 Last administered on 01/20/19at 09:05; Admin Dose 1 TAB; Start 01/19/19 at 20:30 Acetaminophen (Tylenol Tab) 650 mg Q6H PRN PEG MILD PAIN(1-3)OR ELEVATED TEMP Last administered on 01/23/19 21:56; Admin Dose 650 MG; Start 01/19/19 at 20:30 IV Flush (NS 3 ml) 3 ml PER PROTOCOL IV ; Start 01/19/19 at 20:30 Ondansetron HCl (Zofran Inj) 4 mg Q6H PRN IV NAUSEA AND/OR VOMITING; Start 01/20/19 at 02:30 Albuterol (Ventolin Hfa) 4 puff Q2H RESP THERAPY PRN INH SHORTNESS OF BREATH; Start 01/20/19 at 02:30 Ipratropium [place] (Atrovent Hfa) 4 puff Q2H RESP THERAPY PRN INH SHORTNESS OF BREATH; Start 01/20/19 at 02:30 Pantoprazole (Protonix Iv) 40 mg DAILY@06 IV Last administered on 01/24/19 05:59; Admin Dose 40 MG; Start 01/20/19 at 06:00 Atenolol (Tenormin) 25 mg DAILY PO Last administered on 01/24/19 08:39; Admin Dose 25 MG; Start 01/20/19 at 09:00 Digoxin (Digoxin) 0.25 mg DAILY@1300 PO Last administered on 01/24/19 12:11; Admin Dose 0.25 MG; Start 01/20/19 at 13:00 Furosemide (Lasix) 80 mg DAILY@0600 PO Last administered on 01/24/19 05:59; Admin Dose 80 MG; Start 01/20/19 at 06:00 Miscellaneous Information 1 ea NOTE XX ; Start 01/20/19 at 02:30 Glucose (Glutose) 15 gm Q15M PRN PO DECREASED GLUCOSE; Start 01/20/19 at 02:30 Glucose (Glutose) 22.5 gm Q15M PRN PO DECREASED GLUCOSE; Start 01/20/19 at 02:30 Dextrose (D50w Syringe) 25 ml Q15M PRN IV DECREASED GLUCOSE; Start 01/20/19 at 02:30 Dextrose (D50w Syringe) 50 ml Q15M PRN IV DECREASED GLUCOSE; Start 01/20/19 at 02:30 Glucagon (Glucagen) 1 mg Q15M PRN IM DECREASED GLUCOSE; Start 01/20/19 at 02:30 Glucose (Glutose) 15 gm Q15M PRN BUCCAL DECREASED GLUCOSE; Start 01/20/19 at 02:30 Miscellaneous Information (Pending [facility] Order For Wound Care) This patient huff... PRN PRN XX WOUND CARE; Start 01/20/19 at 08:30 Morphine Sulfate (morphine) 1 mg Q2H PRN IV breakthrough pain Last administered on 01/23/19 20:08; Admin Dose 1 MG; Start 01/20/19 at 12:30 Insulin Aspart (Novolog Insulin Pen) NOVOLOG *MILD* ALGORI... Q6 SC ; Start 01/21/19 at 12:00 Meropenem/Sodium Chloride 50 ml @ 100 mls/hr Q12 IVPB Last administered on 01/24/19 08:39; Admin Dose 100 MLS/HR; Start 01/21/19 at 21:00 Potassium Chloride 10 meq/ Dextrose 1,005 ml @ 80 mls/hr [id number] IV Last administered on 01/23/19 23:15; Admin Dose 80 MLS/HR; Start 01/21/19 at 15:00 Lorazepam (Ativan) 1 mg Q6H PRN IV AGITATION Last administered on 01/23/19 20:09; Admin Dose 1 MG; Start 01/21/19 at 18:00 ABBY AL MD Jan 24, 2019 13:46
--- NOTE | 2019-01-24 14:38 | CONS ---
Assessment/Plan Assessment/Plan Hospital Course (Demo Recall) #Sigmoid Colon ca adenoca -need to follow up final surgical pathology, await LN status and T stage to accurately assign pathologic stage -given this was an obstructing tumor, regardless of LN status he would likely benefit from adjuvant chemotherapy. he will not be able to tolerate po Xeloda given this cannot be crushed and given through the g tube. We will have to assess if and when he would be a candidate for IV adjuvant chemotherapy once he is ready for discharge. would likely recommend 5FU therapy depending on his performance status and stage Consultation Date/Type/Reason Admit Date/Time Jan 19, 2019 at 10:30 Initial Consult Date 01/21/19 Requesting Provider: GEO DELEON Date/Time of Note DATE: 01/24/19 TIME: 14:38 Exam/Review of Systems Exam Vitals Vital Signs Date Temp Pulse Resp B/P (MAP) Pulse Ox O2 O2 Flow FiO2 Time Delivery Rate 01/24/19 98 12.0 13:37 01/24/19 30 12:12 01/24/19 64 12:01 01/24/19 98.9 20 120/60 11:53 (80) 01/22/19 Mechanical 20:00 Ventilator Trach Collar Intake and Output 01/23/19 01/23/19 01/24/19 1515:00 23:00 07:00 IntakeIntake Total 50 ml 1370 ml 1461 ml OutputOutput Total 950 ml 1425 ml BalanceBalance 50 ml 420 ml 36 ml Constitutional: frail Psych: no complaints, nl mood/affect Head: normocephalic, atraumatic Eyes: nl conjunctiva, EOMI, nl lids, nl sclera, PERRL ENMT: nl external ears & nose, nl lips & teeth, nl nasal mucosa & septum Neck: supple, non-tender Gastrointestinal: surgical scars Results Result Diagram: 01/23/19 0458 01/23/19 0458 Results 24hrs Laboratory Tests Test 01/23/19 17:26 01/24/19 00:24 01/24/19 06:00 01/24/19 11:27 Bedside Glucose 112 108 114 115 Medications Medication Current Medications Oxycodone/ Acetaminophen (Percocet (5/ 325)) 1 tab Q6H PRN GTB PAIN LEVEL 6-10 Last administered on 01/20/19at 09:05; Admin Dose 1 TAB; Start 01/19/19 at 20:30 Acetaminophen (Tylenol Tab) 650 mg Q6H PRN PEG MILD PAIN(1-3)OR ELEVATED TEMP Last administered on 01/23/19at 21:56; Admin Dose 650 MG; Start 01/19/19 at 20:30 IV Flush (NS 3 ml) 3 ml PER PROTOCOL IV ; Start 01/19/19 at 20:30 Ondansetron HCl (Zofran Inj) 4 mg Q6H PRN IV NAUSEA AND/OR VOMITING; Start 01/20/19 at 02:30 Albuterol (Ventolin Hfa) 4 puff Q2H RESP THERAPY PRN INH SHORTNESS OF BREATH; Start 01/20/19 at 02:30 Ipratropium [place] (Atrovent Hfa) 4 puff Q2H RESP THERAPY PRN INH SHORTNESS OF BREATH; Start 01/20/19 at 02:30 Pantoprazole (Protonix Iv) 40 mg DAILY@06 IV Last administered on 01/24/19at 05:59; Admin Dose 40 MG; Start 01/20/19 at 06:00 Atenolol (Tenormin) 25 mg DAILY PO Last administered on 01/24/19 08:39; Admin Dose 25 MG; Start 01/20/19 at 09:00 Digoxin (Digoxin) 0.25 mg DAILY@1300 PO Last administered on 01/24/19at 12:11; Admin Dose 0.25 MG; Start 01/20/19 at 13:00 Furosemide (Lasix) 80 mg DAILY@0600 PO Last administered on 01/24/19 05:59; Admin Dose 80 MG; Start 01/20/19 at 06:00 Miscellaneous Information 1 ea NOTE XX ; Start 01/20/19 at 02:30 Glucose (Glutose) 15 gm Q15M PRN PO DECREASED GLUCOSE; Start 01/20/19 at 02:30 Glucose (Glutose) 22.5 gm Q15M PRN PO DECREASED GLUCOSE; Start 01/20/19 at 02:30 Dextrose (D50w Syringe) 25 ml Q15M PRN IV DECREASED GLUCOSE; Start 01/20/19 at 02:30 Dextrose (D50w Syringe) 50 ml Q15M PRN IV DECREASED GLUCOSE; Start 01/20/19 at 02:30 Glucagon (Glucagen) 1 mg Q15M PRN IM DECREASED GLUCOSE; Start 01/20/19 at 02:30 Glucose (Glutose) 15 gm Q15M PRN BUCCAL DECREASED GLUCOSE; Start 01/20/19 at 02:30 Miscellaneous Information (Pending [facility] Order For Wound Care) This patient huff. .. PRN PRN XX WOUND CARE; Start 01/20/19 at 08:30 Morphine Sulfate (morphine) 1 mg Q2H PRN IV breakthrough pain Last administered on 01/23/19at 20:08; Admin Dose 1 MG; Start 01/20/19 at 12:30 Insulin Aspart (Novolog Insulin Pen) NOVOLOG *MILD* ALGORI... Q6 SC ; Start 01/21/19 at 12:00 Meropenem/Sodium Chloride 50 ml @ 100 mls/hr Q12 IVPB Last administered on 01/24/19 08:39; Admin Dose 100 MLS/HR; Start 01/21/19 at 21:00 Potassium Chloride 10 meq/ Dextrose 1,005 ml @ 80 mls/hr [id number] IV Last a dministered on 01/23/19at 23:15; Admin Dose 80 MLS/HR; Start 01/21/19 at 15:00 Lorazepam (Ativan) 1 mg Q6H PRN IV AGITATION Last administered on 01/23/19 20:09; Admin Dose 1 MG; Start 01/21/19 at 18:00 TEO LOZOYA Jan 24, 2019 14:38
[2019-01-24] MEDS: POTASSIUM CHLORIDE 10 MEQ in DEXTROSE 5% 1,000 ML IV SCH (17:50)
[2019-01-24] MEDS: LORAZEPAM 2 MG INJ IV PRN (20:56)
[2019-01-24] MEDS: morphine 2 MG INJ IV PRN (23:45)
[2019-01-25] VITALS (24 sets, daily range): BP systolic 95–128; BP diastolic 55–67; PULSE 67–92; RESP 17–26
[2019-01-25] MEDS: POTASSIUM CHLORIDE 10 MEQ in DEXTROSE 5% 1,000 ML IV SCH (02:59)
[2019-01-25] MEDS: LORAZEPAM 2 MG INJ IV PRN ×2 (04:03→21:16)
[2019-01-25] MEDS: FUROSEMIDE 40 MG TAB PO SCH (05:25)
[2019-01-25] MEDS: PANTOPRAZOLE 40 MG INJ IV SCH (05:26)
[2019-01-25] MEDS: INSULIN ASPART [NOVOLOG] 3 ML PEN SC SCH ×3 (05:29→17:22)
[2019-01-25] MEDS: ACETAMINOPHEN 325 MG TAB PEG PRN (08:10)
[2019-01-25] MEDS: MEROPENEM 1 GM/50ML(PMX) 50 ML IVPB SCH ×2 (08:10→21:23)
[2019-01-25] MEDS: ATENOLOL 50 MG TAB PO SCH (08:10)
--- NOTE | 2019-01-25 08:40 | CONS ---
Assessment/Plan Assessment/Plan Assessment/Plan (Daily) Assessment recommendations; 1. Patient with history of chronic respiratory failure admitted for sigmoid colon resection because of recently diagnosed adenocarcinoma status post colostomy. 2. History of recent severe bilateral pneumonia. 3. Critical illness neuropathy myopathy. 4. Mild anemia. Continue current supportive care. Patient responding well to current treatment regimen. Obtain ABG. Consultation Date/Type/Reason Admit Date/Time Jan 19, 2019 at 10:30 Initial Consult Date 01/21/19 Type of Consult Pulmonary Patient's condition is stable. Has remained hemodynamically stable. General exam; elderly male, on ventilator via tracheostomy, currently no distress. Requesting Provider: GEO DELEON Date/Time of Note DATE: 01/25/19 TIME: 08:38 24 HR Interval Summary Free Text/Dictation Patient's condition is stable. Has been weaned down to T-piece. General exam; elderly male, on T-piece via tracheostomy, awake, currently in no distress. Exam/Review of Systems Exam Vitals Vital Signs Date Temp Pulse Resp B/P (MAP) Pulse Ox O2 O2 Flow FiO2 Time Delivery Rate 01/25/19 100.5 08:10 01/25/19 97 8.0 35 07:50 01/25/19 90 21 112/59 07:43 (76) 01/24/19 Simple 13:30 Mask Intake and Output 01/24/19 01/24/19 01/25/19 1414:59 22:59 06:59 IntakeIntake Total 50 ml 1625 ml 1910 ml OutputOutput Total 1935 ml 1660 ml BalanceBalance 50 ml -310 ml 250 ml Exam HEENT exam; supple neck, no JVD. No lymphadenopathy. Midline trachea. No thyromegaly. Patient has fair dentition. Tracheostomy in place. Attached to T piece. Insertion site is clean. Chest exam; diminished but clear breath sounds. S1-S2 audible, no murmurs. Regular rhythm. Abdomen exam; soft, colostomy in place. G-tube in place. Bowel sounds audible. Midline dressing in place. Abdomen is nondistended. Extremity exam; no peripheral edema. [employer] OPERATOR exam; patient is awake and responsive appropriately. Results Result Diagram: 01/25/19 0529 01/25/19 0529 Results 24hrs Laboratory Tests Test 01/24/19 11:27 01/24/19 17:11 01/24/19 23:43 01/25/19 05:29 Bedside Glucose 115 110 113 101 White Blood Count 8.0 Red Blood Count 3.22 L Hemoglobin 8.9 L Hematocrit 28.5 L Mean Corpuscular Volume 88.5 Mean Corpuscular 27.6 L Hemoglobin Mean Corpuscular 31.2 L Hemoglobin Concent Red Cell Distribution 15.0 H Width Platelet Count 276 Mean Platelet Volume 11.0 H Immature Granulocytes % 0.400 Neutrophils % 67.0 Lymphocytes % 19.8 Monocytes % 9.0 Eosinophils % 3.6 Basophils % 0.2 Nucleated Red Blood 0.0 Cells % Immature Granulocytes # 0.030 Neutrophils # 5.4 Lymphocytes # 1.6 Monocytes # 0.7 Eosinophils # 0.3 Basophils # 0.0 Nucleated Red Blood 0.0 Cells # Sodium Level 135 Potassium Level 4.0 Chloride Level 98 Carbon Dioxide Level 28 Anion Gap 9 Blood Urea Nitrogen 25 H Creatinine 1.05 Est Glomerular Filtrat Rate mL/min Glucose Level 101 Calcium Level 8.1 L Medications Medication Current Medications Oxycodone/ Acetaminophen (Percocet (5/ 325)) 1 tab Q6H PRN GTB PAIN LEVEL 6-10 Last administered on 01/20/19at 09:05; Admin Dose 1 TAB; Start 01/19/19 at 20:30 Acetaminophen (Tylenol Tab) 650 mg Q6H PRN PEG MILD PAIN(1-3)OR ELEVATED TEMP Last administered on 01/25/19at 08:10; Admin Dose 650 MG; Start 01/19/19 at 20:30 IV Flush (NS 3 ml) 3 ml PER PROTOCOL IV ; Start 01/19/19 at 20:30 Ondansetron HCl (Zofran Inj) 4 mg Q6H PRN IV NAUSEA AND/OR VOMITING; Start 01/20/19 at 02:30 Albuterol (Ventolin Hfa) 4 puff Q2H RESP THERAPY PRN INH SHORTNESS OF BREATH; Start 01/20/19 at 02:30 Ipratropium [place] (Atrovent Hfa) 4 puff Q2H RESP THERAPY PRN INH SHORTNESS OF BREATH; Start 01/20/19 at 02:30 Pantoprazole (Protonix Iv) 40 mg DAILY@06 IV Last administered on 01/25/19at 05:26; Admin Dose 40 MG; Start 01/20/19 at 06:00 Atenolol (Tenormin) 25 mg DAILY PO Last administered on 01/25/19 08:10; Admin Dose 25 MG; Start 01/20/19 at 09:00 Digoxin (Digoxin) 0.25 mg DAILY@1300 PO Last administered on 01/24/19at 12:11; Admin Dose 0.25 MG; Start 01/20/19 at 13:00 Furosemide (Lasix) 80 mg DAILY@0600 PO Last administered on 01/25/19at 05:25; Admin Dose 80 MG; Start 01/20/19 at 06:00 Miscellaneous Information 1 ea NOTE XX ; Start 01/20/19 at 02:30 Glucose (Glutose) 15 gm Q15M PRN PO DECREASED GLUCOSE; Start 01/20/19 at 02:30 Glucose (Glutose) 22.5 gm Q15M PRN PO DECREASED GLUCOSE; Start 01/20/19 at 02:30 Dextrose (D50w Syringe) 25 ml Q15M PRN IV DECREASED GLUCOSE; Start 01/20/19 at 02:30 Dextrose (D50w Syringe) 50 ml Q15M PRN IV DECREASED GLUCOSE; Start 01/20/19 at 02:30 Glucagon (Glucagen) 1 mg Q15M PRN IM DECREASED GLUCOSE; Start 01/20/19 at 02:30 Glucose (Glutose) 15 gm Q15M PRN BUCCAL DECREASED GLUCOSE; Start 01/20/19 at 02:30 Miscellaneous Information (Pending [facility] Order For Wound Care) This patient huff... PRN PRN XX WOUND CARE; Start 01/20/19 at 08:30 Morphine Sulfate (morphine) 1 mg Q2H PRN IV breakthrough pain Last administered on 01/24/19at 23:45; Admin Dose 1 MG; Start 01/20/19 at 12:30 Insulin Aspart (Novolog Insulin Pen) NOVOLOG *MILD* ALGORI... Q6 SC ; Start 01/21/19 at 12:00 Meropenem/Sodium Chloride 50 ml @ 100 mls/hr Q12 IVPB Last administered on at 08:10; Admin Dose 100 MLS/HR; Start 01/21/19 at 21:00 Potassium Chloride 10 meq/ Dextrose 1,005 ml @ 50 mls/hr Q20H6M IV Last administered on 01/25/19at 02:59; Admin Dose 50 MLS/HR; Start 01/21/19 at 15:00 Lorazepam (Ativan) 1 mg Q6H PRN IV AGITATION Last administered on 01/25/19at 04:03; Admin Dose 1 MG; Start 01/21/19 at 18:00 OK SOOD Jan 25, 2019 08:40
--- NOTE | 2019-01-25 10:28 | CONS ---
Consult Date/Type/Reason Admit Date/Time Jan 19, 2019 at 10:30 Initial Consult Date 01/21/19 Type of Consultation: Pulm Requesting Provider: GEO DELEON Date/Time of Note DATE: 01/25/19 TIME: 10:26 Subjective No acute events - pt comfortable - con't supportive Rx - intermittent tachy on tele. ROS: Per nurse - NO F/C/N/V/D + agitation + SOB Objective Vitals Vital Signs Date Temp Pulse Resp B/P (MAP) Pulse Ox O2 O2 Flow FiO2 Time Delivery Rate 01/25/19 100.5 09:02 01/25/19 30 08:15 01/25/19 92 08:01 01/25/19 97 8.0 07:50 01/25/19 21 112/59 07:43 (76) 01/24/19 Simple 13:30 Mask Intake and Output 01/24/19 01/24/19 01/25/19 1414:59 22:59 06:59 IntakeIntake Total 50 ml 1625 ml 1910 ml OutputOutput Total 1935 ml 1660 ml BalanceBalance 50 ml -310 ml 250 ml Exam General: WN/WD/NAD, AOx comfortable HEENT: Unicetric/atraumatic/EOMI (does not follow commands) NECK: trach Lymph: no lymphadenopathy HEART: regular with no S3, II/ systolic murmur at apex LUNGS: Coarse sounds ABD: soft, NT, ND, +BS : Intact Neuro: non focal SKIN: chronic changes EXT: trace edema, mittens on Results/Medications Result Diagram: 01/25/19 0529 01/25/19 0529 Results 24 hrs Laboratory Tests Test 01/24/19 11:27 01/24/19 17:11 01/24/19 23:43 01/25/19 05:29 Bedside Glucose 115 110 113 101 White Blood Count 8.0 Red Blood Count 3.22 L Hemoglobin 8.9 L Hematocrit 28.5 L Mean Corpuscular 88.5 Volume Mean Corpuscular 27.6 L Hemoglobin Mean Corpuscular 31.2 L Hemoglobin Concent Red Cell 15.0 H Distribution Width Platelet Count 276 Mean Platelet 11.0 H Volume Immature 0.400 Granulocytes % Neutrophils % 67.0 Lymphocytes % 19.8 Monocytes % 9.0 Eosinophils % 3.6 Basophils % 0.2 Nucleated Red 0.0 Blood Cells % Immature 0.030 Granulocytes # Neutrophils # 5.4 Lymphocytes # 1.6 Monocytes # 0.7 Eosinophils # 0.3 Basophils # 0.0 Nucleated Red 0.0 Blood Cells # Sodium Level 135 Potassium Level 4.0 Chloride Level 98 Carbon Dioxide 28 Level Anion Gap 9 Blood Urea 25 H Nitrogen Creatinine 1.05 Est Glomerular Filtrat Rate mL/min Glucose Level 101 Calcium Level 8.1 L Test 01/25/19 08:40 Blood Gas Specimen Blood arterial Source Arterial Blood 01/25/2019 9:08:06 Date Drawn AM Arterial Blood pH 7.487 H (Temp corrected) Arterial Blood 40.3 pCO2 (Temp correct) Arterial Blood pO2 71.8 L (Temp corrected) Arterial Blood 29.8 H HCO3 Arterial Blood 6.0 H Base Excess Arterial Blood 94.8 L Oxygen Saturation Nilson Test N/A Arterial Blood Gas Right Brachial Puncture Site Arterial 0.3 Blood Carboxyhemog lobin Arterial Blood 0.2 Methemoglobin Blood Gas A-a O2 130.9 H Differential Oxyhemoglobin 94.3 Percent Blood Gas 37.0 Temperature Blood Gas Modality TRACH COLLAR FiO2 35.0 Blood Gas Notified TM Whom Blood Gas Notified 01/25/2019 9:25:41 Time AM Home Meds Active Scripts Pantoprazole (Protonix) 40 Mg Tabec, 40 MG PO BID, #60 TAB 1 Refill Prov:NAYANA GARCIA. 11/22/18 Reported Medications Calcium Citrate/Vitamin D (Citracal-Vitamin D 200 MG-250) 1 Each Tablet, 1 EACH PO BID, TAB 11/19/18 Ibuprofen* (Ibuprofen*) 600 Mg Tablet, 600 MG PO Q6H PRN for PAIN LEVEL 1-5, TAB 11/19/18 Hydralazine Hcl* (Hydralazine Hcl*) 50 Mg Tablet, 50 MG PO Q6H, #60 TAB 11/19/18 Metformin* (Glucophage*) 500 Mg Tab, 500 MG PO WITH BREAKFAST, #30 TAB 11/19/18 Multivitamins* (Theragran*) 1 Tab Tab, 1 TAB PO DAILY, TAB 11/19/18 Aripiprazole* (Abilify*) 5 Mg Tab, 5 MG PO DAILY, #30 TAB 11/19/18 Diltiazem Hcl* (Cardizem SR*) 120 Mg Cap.sr.12h, 120 MG PO Q12, CAP 11/19/18 Pioglitazone Hcl* (Pioglitazone Hcl*) 30 Mg Tablet, 30 MG PO DAILY, TAB 11/19/18 Escitalopram Oxalate* (Escitalopram Oxalate*) 20 Mg Tablet, 20 MG PO DAILY, #30 TAB 11/19/18 Benazepril Hcl* (Benazepril Hcl*) 20 Mg Tablet, 20 MG PO DAILY, #30 TAB 11/19/18 Tamsulosin Hcl* (Tamsulosin Hcl*) 0.4 Mg Cap.er.24h, 0.4 MG PO HS, CAP 11/19/18 Aspirin Ec (Aspir 81) 81 Mg Tablet.dr, 81 MG PO DAILY, #30 TAB 11/19/18 Loratadine* (Loratadine*) 10 Mg Tablet, 10 MG PO DAILY, #30 TAB 11/19/18 Potassium Chloride* (Potassium Chloride*) 8 Meq Capsule.er, 8 MEQ PO DAILY, CAP 11/19/18 Furosemide* (Furosemide*) 80 Mg Tablet, 80 MG PO DAILY, #30 TAB 11/19/18 Atenolol* (Atenolol*) 50 Mg Tablet, 50 MG PO DAILY, #30 TAB 11/19/18 Digoxin* (Lanoxin*) 0.25 Mg Tablet, 0.25 MG PO DAILY, TAB 11/19/18 Medications Current Medications Oxycodone/ Acetaminophen (Percocet (5/ 325)) 1 tab Q6H PRN GTB PAIN LEVEL 6-10 Last administered on 01/20/19at 09:05; Admin Dose 1 TAB; Start 01/19/19 at 20:30 Acetaminophen (Tylenol Tab) 650 mg Q6H PRN PEG MILD PAIN(1-3)OR ELEVATED TEMP Last administered on 01/25/19at 08:10; Admin Dose 650 MG; Start 01/19/19 at 20:30 IV Flush (NS 3 ml) 3 ml PER PROTOCOL IV ; Start 01/19/19 at 20:30 Ondansetron HCl (Zofran Inj) 4 mg Q6H PRN IV NAUSEA AND/OR VOMITING; Start 01/20/19 at 02:30 Albuterol (Ventolin Hfa) 4 puff Q2H RESP THERAPY PRN INH SHORTNESS OF BREATH; Start 01/20/19 at 02:30 Ipratropium [place] (Atrovent Hfa) 4 puff Q2H RESP THERAPY PRN INH SHORTNESS OF BREATH; Start 01/20/19 at 02:30 Pantoprazole (Protonix Iv) 40 mg DAILY@06 IV Last administered on 01/25/19at 05: 26; Admin Dose 40 MG; Start 01/20/19 at 06:00 Atenolol (Tenormin) 25 mg DAILY PO Last administered on 01/25/19at 08:10; Admin Dose 25 MG; Start 01/20/19 at 09:00 Digoxin (Digoxin) 0.25 mg DAILY@1300 PO Last administered on 01/24/19at 12:11; Admin Dose 0.25 MG; Start 01/20/19 at 13:00 Furosemide (Lasix) 80 mg DAILY@0600 PO Last administered on 01/25/19at 05:25; Admin Dose 80 MG; Start 01/20/19 at 06:00 Miscellaneous Information 1 ea NOTE XX ; Start 01/20/19 at 02:30 Glucose (Glutose) 15 gm Q15M PRN PO DECREASED GLUCOSE; Start 01/20/19 at 02:30 Glucose (Glutose) 22.5 gm Q15M PRN PO DECREASED GLUCOSE; Start 01/20/19 at 02:30 Dextrose (D50w Syringe) 25 ml Q15M PRN IV DECREASED GLUCOSE; Start 01/20/19 at 02:30 Dextrose (D50w Syringe) 50 ml Q15M PRN IV DECREASED GLUCOSE; Start 01/20/19 at 02:30 Glucagon (Glucagen) 1 mg Q15M PRN IM DECREASED GLUCOSE; Start 01/20/19 at 02:30 Glucose (Glutose) 15 gm Q15M PRN BUCCAL DECREASED GLUCOSE; Start 01/20/19 at 02:30 Miscellaneous Information (Pending Santyl Order For Wound Care) This patient huff... PRN PRN XX WOUND CARE; Start 01/20/19 at 08:30 Morphine Sulfate (morphine) 1 mg Q2H PRN IV breakthrough pain Last administered on 01/24/19at 23:45; Admin Dose 1 MG; Start 01/20/19 at 12:30 Insulin Aspart (Novolog Insulin Pen) NOVOLOG *MILD* ALGORI... Q6 SC ; Start 01/21/19 at 12:00 Meropenem/Sodium Chloride 50 ml @ 100 mls/hr Q12 IVPB Last administered on 01/25/19at 08:10; Admin Dose 100 MLS/HR; Start 01/21/19 at 21:00 Potassium Chloride 10 meq/ Dextrose 1,005 ml @ 50 mls/hr Q20H6M IV Last administered on 01/25/19at 02:59; Admin Dose 50 MLS/HR; Start 01/21/19 at 15:00 Lorazepam (Ativan) 1 mg Q6H PRN IV AGITATION Last administered on 01/25/19at 04: 03; Admin Dose 1 MG; Start 01/21/19 at 18:00 Assessment/Plan Hospital Course (Demo Recall) 1. Tachycardia, intermittent consistent with sinus tachycardia, likely in the setting of pain and anxiety-improved - rate controlled. will monitor now - better now, to tele - rate reasnably controlled 2. Hypotension, borderline after given pain meds, ensure good volume status - stable, con't ICU care - improved BP now - better now 3. Abnormal electrocardiogram, right bundle branch block, secondary repolarization abnormalities, assess for heart block, rule out acute coronary syndrome postoperatively - not a good candidate for pacer/interventions - satble HR 4. Colon carcinoma, status post resection - poor prognosis still 5. Anemia- con;t to monitopr H/H - 8.9 now - primary follows - better 6. Renal failure, improving cr 1.05 7. Altered mental state/encephalopathy- stable. 8. Diabetes mellitus - on meds, keep euglycemic. 9. Leukocytosis. 10. Hypernatremia. SCARLET HARDWICK MD Jan 25, 2019 10:28
--- NOTE | 2019-01-25 11:42 | PN ---
Date/Time of Note Date/Time of Note DATE: 01/25/19 TIME: 11:38 Assessment/Plan Lines/Catheters IV Catheter Type (from Nrs): Saline Lock [place] in Place (from Nrs): No Assessment/Plan Chief Complaint/Hosp Course 1. Sigmoid/rectal adenocarcinoma with obstruction, status post stent and significant adhesions, colorectal bleed with anemia: Status post laparoscopic co nverted to open low anterior resection with end colostomy and laparoscopic appendectomy 01/19/19 -continue tube feeds titrate to goal, monitor bowel function -ambulate as able -ice pack to abdominal wall -continue Drain -Pain management -Close monitoring -path pending -dc planning once no febrile episodes 2. Fever, episode this morning -close monitoring, further workup if persistent 3. UTI s/p abx per sensitivity -frequent bladder emptying/cath care 4. Hypochromic anemia: Some blood noted in ostomy bag; drop in H&H: Status post PRBC transfusion -Monitor for now and transfuse as needed 5. VDRF: Mild bibasilar atelectasis versus airspace disease -Pulmonary toilet 6. Dysphagia status post PEG tube -tube feed as tolerated 7. SIMI: -Limit nephrotoxic meds -Renally dose meds -Judicious fluids Thank you. Patient seen and examined in collaboration with Dr. Srini Rose. Subjective 24 Hr Interval Summary Fever. + bowel function. Dark blood per rectum- none at this time. No labored breathing, congested cough, vomiting, hematuria. HH stable. Exam/Review of Systems Vital Signs Vitals Vital Signs Date Temp Pulse Resp B/P (MAP) Pulse Ox O2 O2 Flow FiO2 Time Delivery Rate 01/25/19 98.8 86 20 110/61 98 10:56 (77) 01/25/19 30 08:15 01/25/19 8.0 07:50 01/24/19 Simple 13:30 Mask Intake and Output 01/24/19 01/24/19 01/25/19 1515:00 23:00 07:00 IntakeIntake Total 50 ml 1625 ml 1910 ml OutputOutput Total 1935 ml 1660 ml BalanceBalance 50 ml -310 ml 250 ml Exam Free Text/Dictation Constitutional: alert; follows simple commands Psych: confusion Head: normocephalic, atraumatic Eyes: nl conjunctiva, nl lids, nl sclera ENMT: nl external ears & nose, mucosa pink and moist; No nl lips & teeth (Edentulous-bottom) Neck: supple, non-tender, other (Tracheostomy) Respiratory: normal air movement; No congested cough, No labored breathing Cardiovascular: regular rate and rhythm (Sinus rhythm); No edema Gastrointestinal: soft, distended (Minimal), other (Incision sites: (Midline: Staple line clean, no cristina-incisional erythema/drainage); ELIUD drain serosanguineous; colostomy: min dusky, functional) Genitourinary - Male: nl penis, nl scrotum Musculoskeletal: nl extremities to inspection Extremities: normal pulses, pitting pedal edema Neurological: confused; No nl mental status, No nl speech, No nl strength (Generalized weakness) Skin: No rash or lesions Results Result Diagram: 01/25/19 0529 01/25/19 0529 TRACY FERREIRA NP Jan 25, 2019 11:42
[2019-01-25] MEDS: DIGOXIN 0.25 MG TAB PO SCH (12:16)
--- NOTE | 2019-01-25 15:47 | PN ---
Date/Time of Note Date/Time of Note DATE: 01/25/19 TIME: 15:46 Assessment/Plan VTE Prophylaxis Risk score (from Ns)>0 risk: 11 SCD applied (from Ns): Yes Pharmacological prophylaxis: heparin Lines/Catheters IV Catheter Type (from Nrs): Saline Lock Urinary Cath still in place: No Assessment/Plan Hospital Course 78-year-old male who is trach dependent with a history of diabetes, atrial fibrillation, obstructive uropathy, dysphagia status post G-tube, sigmoid/colon carcinoma status post stent admitted to ICU status post Laparoscopic converted to open low anterior resection with end colostomy, splenic mobilization and a laparoscopic appendectomy. Fever: - Ann culture - Hold off on abx for now 1. 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 Trach dependent respiratory failure: Currently on a vent -Pulmonary to manage 3. Atrial fibrillation: Continue meds. Adjust as needed. Will hold Cardizem and atenolol given current hypotension 4. Hypotension-resolved -Improved with bolus 5. Diabetes: Insulin 6. Acute kidney injury on CKD -Nephrology consultation appreciated 7. UTI -Urine culture is growing Klebsiella pneumonia ESBL -Continue meropenem -UA is positive 8. Dysphagia: Status post G-tube Prophylaxis: SCDs DC planning: Anticipate DC back to [place] this coming week, follow-up on surgery recommendations for DC planning Result Diagram: 01/25/19 0529 01/25/19 0529 Results 24hrs Laboratory Tests Test 01/24/19 17:11 01/24/19 23:43 01/25/19 05:29 01/25/19 08:40 Bedside Glucose 110 113 101 White Blood Count 8.0 Red Blood Count 3.22 L Hemoglobin 8.9 L Hematocrit 28.5 L Mean Corpuscular 88.5 Volume Mean Corpuscular 27.6 L Hemoglobin Mean Corpuscular 31.2 L Hemoglobin Concent Red Cell 15.0 H Distribution Width Platelet Count 276 Mean Platelet 11.0 H Volume Immature 0.400 Granulocytes % Neutrophils % 67.0 Lymphocytes % 19.8 Monocytes % 9.0 Eosinophils % 3.6 Basophils % 0.2 Nucleated Red 0.0 Blood Cells % Immature 0.030 Granulocytes # Neutrophils # 5.4 Lymphocytes # 1.6 Monocytes # 0.7 Eosinophils # 0.3 Basophils # 0.0 Nucleated Red 0.0 Blood Cells # Sodium Level 135 Potassium Level 4.0 Chloride Level 98 Carbon Dioxide 28 Level Anion Gap 9 Blood Urea 25 H Nitrogen Creatinine 1.05 Est Glomerular Filtrat Rate mL/min Glucose Level 101 Calcium Level 8.1 L Blood Gas Specimen Blood arterial Source Arterial Blood 01/25/2019 9:08:06 Date Drawn AM Arterial Blood pH 7.487 H (Temp corrected) Arterial Blood 40.3 pCO2 (Temp correct) Arterial Blood pO2 71.8 L (Temp corrected) Arterial Blood 29.8 H HCO3 Arterial Blood 6.0 H Base Excess Arterial Blood 94.8 L Oxygen Saturation Nilson Test N/A Arterial Blood Gas Right Brachial Puncture Site Arterial 0.3 Blood Carboxyhemog lobin Arterial Blood 0.2 Methemoglobin Blood Gas A-a O2 130.9 H Differential Oxyhemoglobin 94.3 Percent Blood Gas 37.0 Temperature Blood Gas Modality TRACH COLLAR FiO2 35.0 Blood Gas Notified TM Whom Blood Gas Notified 01/25/2019 9:25:41 Time AM Test 01/25/19 11:47 Bedside Glucose 111 Subjective 24 Hr Interval Summary Free Text/Dictation Fever overnight, HD stable Otherwise unchanged Exam/Review of Systems Exam Vitals Vital Signs Date Temp Pulse Resp B/P (MAP) Pulse Ox O2 O2 Flow FiO2 Time Delivery Rate 01/25/19 99.7 67 18 128/63 95 15:40 (84) 01/25/19 30 08:15 01/25/19 8.0 07:50 01/24/19 Simple 13:30 Mask Intake and Output 01/24/19 01/24/19 01/25/19 1515:00 23:00 07:00 IntakeIntake Total 50 ml 1625 ml 1910 ml OutputOutput Total 1935 ml 1660 ml BalanceBalance 50 ml -310 ml 250 ml Constitutional: alert, oriented, well developed Psych: no complaints, nl mood/affect Head: normocephalic, atraumatic Eyes: nl conjunctiva, EOMI, nl lids, nl sclera, PERRL ENMT: nl external ears & nose, nl lips & teeth, nl nasal mucosa & septum Neck: supple, non-tender Respiratory: clear to auscultation, normal air movement Cardiovascular: regular rate and rhythm, nl pulses Gastrointestinal: soft, nl liver, spleen, non-tender Musculoskeletal: nl extremities to inspection, nl gait and stance Extremities: normal pulses 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8 Monocytes % 9.0 Eosinophils % 3.6 Basophils % 0.2 Nucleated Red 0.0 Blood Cells % Immature 0.030 Granulocytes # Neutrophils # 5.4 Lymphocytes # 1.6 Monocytes # 0.7 Eosinophils # 0.3 Basophils # 0.0 Nucleated Red 0.0 Blood Cells # Sodium Level 135 Potassium Level 4.0 Chloride Level 98 Carbon Dioxide 28 Level Anion Gap 9 Blood Urea 25 H Nitrogen Creatinine 1.05 Est Glomerular Filtrat Rate mL/min Glucose Level 101 Calcium Level 8.1 L Blood Gas Specimen Blood arterial Source Arterial Blood 01/25/2019 9:08:06 Date Drawn AM Arterial Blood pH 7.487 H (Temp corrected) Arterial Blood 40.3 pCO2 (Temp correct) Arterial Blood pO2 71.8 L (Temp corrected) Arterial Blood 29.8 H HCO3 Arterial Blood 6.0 H Base Excess Arterial Blood 94.8 L Oxygen Saturation Nilson Test N/A Arterial Blood Gas Right Brachial Puncture Site Arterial 0.3 Blood Carboxyhemog lobin Arterial Blood 0.2 Methemoglobin Blood Gas A-a O2 130.9 H Differential Oxyhemoglobin 94.3 Percent Blood Gas 37.0 Temperature Blood Gas Modality TRACH COLLAR FiO2 35.0 Blood Gas Notified TM Whom Blood Gas Notified 01/25/2019 9:25:41 Time AM Test 01/25/19 11:47 Bedside Glucose 111 Medications Medication Current Medications Oxycodone/ Acetaminophen (Percocet (5/ 325)) 1 tab Q6H PRN GTB PAIN LEVEL 6-10 Last administered on 01/20/19at 09:05; Admin Dose 1 TAB; Start 01/19/19 at 20:30 Acetaminophen (Tylenol Tab) 650 mg Q6H PRN PEG MILD PAIN(1-3)OR ELEVATED TEMP Last administered on 01/25/19at 08:10; Admin Dose 650 MG; Start 01/19/19 at 20:30 IV Flush (NS 3 ml) 3 ml PER PROTOCOL IV ; Start 01/19/19 at 20:30 Ondansetron HCl (Zofran Inj) 4 mg Q6H PRN IV NAUSEA AND/OR VOMITING; Start 01/20/19 at 02:30 Albuterol (Ventolin Hfa) 4 puff Q2H RESP THERAPY PRN INH SHORTNESS OF BREATH; Start 01/20/19 at 02:30 Ipratropium [place] (Atrovent Hfa) 4 puff Q2H RESP THERAPY PRN INH SHORTNESS OF BREATH; Start 01/20/19 at 02:30 Pantoprazole (Protonix Iv) 40 mg DAILY@06 IV Last administered on 01/25/19at 05:26; Admin Dose 40 MG; Start 01/20/19 at 06:00 Atenolol (Tenormin) 25 mg DAILY PO Last administered on 01/25/19at 08:10; Admin Dose 25 MG; Start 01/20/19 at 09:00 Digoxin (Digoxin) 0.25 mg DAILY@1300 PO Last administered on 01/25/19at 12:16; Admin Dose 0.25 MG; Start 01/20/19 at 13:00 Furosemide (Lasix) 80 mg DAILY@0600 PO Last administered on 01/25/19at 05:25; Admin Dose 80 MG; Start 01/20/19 at 06:00 Miscellaneous Information 1 ea NOTE XX ; Start 01/20/19 at 02:30 Glucose (Glutose) 15 gm Q15M PRN PO DECREASED GLUCOSE; Start 01/20/19 at 02:30 Glucose (Glutose) 22.5 gm Q15M PRN PO DECREASED GLUCOSE; Start 01/20/19 at 02:30 Dextrose (D50w Syringe) 25 ml Q15M PRN IV DECREASED GLUCOSE; Start 01/20/19 at 02:30 Dextrose (D50w Syringe) 50 ml Q15M PRN IV DECREASED GLUCOSE; Start 01/20/19 at 02:30 Glucagon (Glucagen) 1 mg Q15M PRN IM DECREASED GLUCOSE; Start 01/20/19 at 02:30 Glucose (Glutose) 15 gm Q15M PRN BUCCAL DECREASED GLUCOSE; Start 01/20/19 at 02:30 Miscellaneous Information (Pending Santyl Order For Wound Care) This patient huff... PRN PRN XX WOUND CARE; Start 01/20/19 at 08:30 Morphine Sulfate (morphine) 1 mg Q2H PRN IV breakthrough pain Last administered on 01/24/19at 23:45; Admin Dose 1 MG; Start 01/20/19 at 12:30 Insulin Aspart (Novolog Insulin Pen) NOVOLOG *MILD* ALGORI... Q6 SC ; Start 01/21/19 at 12:00 Meropenem/Sodium Chloride 50 ml @ 100 mls/hr Q12 IVPB Last administered on 01/25/19 08:10; Admin Dose 100 MLS/HR; Start 01/21/19 at 21:00 Potassium Chloride 10 meq/ Dextrose 1,005 ml @ 50 mls/hr Q20H6M IV Last administered on 01/25/19at 02:59; Admin Dose 50 MLS/HR; Start 01/21/19 at 15:00 Lorazepam (Ativan) 1 mg Q6H PRN IV AGITATION Last administered on 01/25/19 04:03; Admin Dose 1 MG; Start 01/21/19 at 18:00 ABBY AL MD Jan 25, 2019 15:47
--- NOTE | 2019-01-25 18:41 | CONS ---
Assessment/Plan Assessment/Plan Assessment/Plan (Daily) 1. Acute kidney injury on CKD III due to ATN and prerenal azotemia 2. 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 acute on chronic respiratory failure s/p tracheostomy 4. Atrial fibrillation:rate controlled 5. H/o Diabetes melitus 6. H/O HTN 7. Dysphagia: Status post G-tube 8. UTI with Urine Cx growing Klebsiella ESBL Plan: Na 135, BUN/Cr 25/1.05- continue D5W with KCl 10mEQ at 50 cc/hr IV abx meropenem for ESBL Klebsiella UTI Renally dose all abx, monitor electrolytes General surgery following will follow up Consultation Date/Type/Reason Admit Date/Time Jan 19, 2019 at 10:30 Initial Consult Date 01/21/19 Type of Consult NEPHROLOGY Requesting Provider: GEO DELEON Date/Time of Note DATE: 01/25/19 TIME: 18:41 Exam/Review of Systems Exam Vitals Vital Signs Date Temp Pulse Resp B/P (MAP) Pulse Ox O2 O2 Flow FiO2 Time Delivery Rate 01/25/19 99.0 69 20 113/62 98 18:04 (79) 01/25/19 8.0 17:40 01/25/19 30 08:15 01/24/19 Simple 13:30 Mask Intake and Output 01/24/19 01/24/19 01/25/19 1515:00 23:00 07:00 IntakeIntake Total 50 ml 1625 ml 1910 ml OutputOutput Total 1935 ml 1660 ml BalanceBalance 50 ml -310 ml 250 ml Exam Constitutional: alert, other (oriented x 2 ), + tracheostomy in place Respiratory: congested cough, crackles/rales, diminished breath sounds Cardiovascular: regular rate and rhythm, nl pulses Gastrointestinal: soft, other (abdominal dressing + ) Musculoskeletal: nl extremities to inspection Extremities: normal pulses Neurological: alert, awake, no focal deficits Skin: nl turgor Results Result Diagram: 01/25/19 0529 01/25/1929 Results 24hrs Laboratory Tests Test 01/24/19 23:43 01/25/19 05:29 01/25/19 08:40 01/25/19 11:47 Bedside Glucose 113 101 111 White Blood Count 8.0 Red Blood Count 3.22 L Hemoglobin 8.9 L Hematocrit 28.5 L Mean Corpuscular 88.5 Volume Mean Corpuscular 27.6 L Hemoglobin Mean Corpuscular 31.2 L Hemoglobin Concent Red Cell 15.0 H Distribution Width Platelet Count 276 Mean Platelet 11.0 H Volume Immature 0.400 Granulocytes % Neutrophils % 67.0 Lymphocytes % 19.8 Monocytes % 9.0 Eosinophils % 3.6 Basophils % 0.2 Nucleated Red 0.0 Blood Cells % Immature 0.030 Granulocytes # Neutrophils # 5.4 Lymphocytes # 1.6 Monocytes # 0.7 Eosinophils # 0.3 Basophils # 0.0 Nucleated Red 0.0 Blood Cells # Sodium Level 135 Potassium Level 4.0 Chloride Level 98 Carbon Dioxide 28 Level Anion Gap 9 Blood Urea 25 H Nitrogen Creatinine 1.05 Est Glomerular Filtrat Rate mL/min Glucose Level 101 Calcium Level 8.1 L Blood Gas Specimen Blood arterial Source Arterial Blood 01/25/2019 9:08:06 Date Drawn AM Arterial Blood pH 7.487 H (Temp corrected) Arterial Blood 40.3 pCO2 (Temp correct) Arterial Blood pO2 71.8 L (Temp corrected) Arterial Blood 29.8 H HCO3 Arterial Blood 6.0 H Base Excess Arterial Blood 94.8 L Oxygen Saturation Nilson Test N/A Arterial Blood Gas Right Brachial Puncture Site Arterial 0.3 Blood Carboxyhemog lobin Arterial Blood 0.2 Methemoglobin Blood Gas A-a O2 130.9 H Differential Oxyhemoglobin 94.3 Percent Blood Gas 37.0 Temperature Blood Gas Modality TRACH COLLAR FiO2 35.0 Blood Gas Notified TM Whom Blood Gas Notified 01/25/2019 9:25:41 Time AM Test 01/25/19 17:19 Bedside Glucose 107 Medications Medication Current Medications Oxycodone/ Acetaminophen (Percocet (5/ 325)) 1 tab Q6H PRN GTB PAIN LEVEL 6-10 Last administered on 01/20/19at 09:05; Admin Dose 1 TAB; Start 01/19/19 at 20:30 Acetaminophen (Tylenol Tab) 650 mg Q6H PRN PEG MILD PAIN(1-3)OR ELEVATED TEMP Last administered on 01/25/19 08:10; Admin Dose 650 MG; Start 01/19/19 at 20:30 IV Flush (NS 3 ml) 3 ml PER PROTOCOL IV ; Start 01/19/19 at 20:30 Ondansetron HCl (Zofran Inj) 4 mg Q6H PRN IV NAUSEA AND/OR VOMITING; Start 01/20/19 at 02:30 Albuterol (Ventolin Hfa) 4 puff Q2H RESP THERAPY PRN INH SHORTNESS OF BREATH; Start 01/20/19 at 02:30 Ipratropium [place] (Atrovent Hfa) 4 puff Q2H RESP THERAPY PRN INH SHORTNESS OF BREATH; Start 01/20/19 at 02:30 Pantoprazole (Protonix Iv) 40 mg DAILY@06 IV Last administered on 01/25/19at 05:26; Admin Dose 40 MG; Start 01/20/19 at 06:00 Atenolol (Tenormin) 25 mg DAILY PO Last administered on 01/25/19at 08:10; Admin Dose 25 MG; Start 01/20/19 at 09:00 Digoxin (Digoxin) 0.25 mg DAILY@1300 PO Last administered on 01/25/19at 12:16; Admin Dose 0.25 MG; Start 01/20/19 at 13:00 Furosemide (Lasix) 80 mg DAILY@0600 PO Last administered on 01/25/19at 05:25; Admin Dose 80 MG; Start 01/20/19 at 06:00 Miscellaneous Information 1 ea NOTE XX ; Start 01/20/19 at 02:30 Glucose (Glutose) 15 gm Q15M PRN PO DECREASED GLUCOSE; Start 01/20/19 at 02:30 Glucose (Glutose) 22.5 gm Q15M PRN PO DECREASED GLUCOSE; Start 01/20/19 at 02:30 Dextrose (D50w Syringe) 25 ml Q15M PRN IV DECREASED GLUCOSE; Start 01/20/19 at 02:30 Dextrose (D50w Syringe) 50 ml Q15M PRN IV DECREASED GLUCOSE; Start 01/20/19 at 02:30 Glucagon (Glucagen) 1 mg Q15M PRN IM DECREASED GLUCOSE; Start 01/20/19 at 02:30 Glucose (Glutose) 15 gm Q15M PRN BUCCAL DECREASED GLUCOSE; Start 01/20/19 at 02:30 Miscellaneous Information (Pending [facility] Order For Wound Care) This patient huff... PRN PRN XX WOUND CARE; Start 01/20/19 at 08:30 Morphine Sulfate (morphine) 1 mg Q2H PRN IV breakthrough pain Last administered on 01/24/19at 23:45; Admin Dose 1 MG; Start 01/20/19 at 12:30 Insulin Aspart (Novolog Insulin Pen) NOVOLOG *MILD* ALGORI... Q6 SC ; Start 01/21/19 at 12:00 Meropenem/Sodium Chloride 50 ml @ 100 mls/hr Q12 IVPB Last administered on 01/25/19at 08:10; Admin Dose 100 MLS/HR; Start 01/21/19 at 21:00 Lorazepam (Ativan) 1 mg Q6H PRN IV AGITATION Last administered on 01/25/19at 04:03; Admin Dose 1 MG; Start 01/21/19 at 18:00 RENAN HERNANDEZ MD Jan 25, 2019 18:41
[2019-01-26] VITALS (23 sets, daily range): BP systolic 100–126; BP diastolic 55–90; PULSE 75–98; RESP 16–27
[2019-01-26] MEDS: INSULIN ASPART [NOVOLOG] 3 ML PEN SC SCH ×4 (06:00→18:00)
[2019-01-26] MEDS: PANTOPRAZOLE 40 MG INJ IV SCH (06:14)
[2019-01-26] MEDS: FUROSEMIDE 40 MG TAB PO SCH (06:16)
[2019-01-26] MEDS: ACETAMINOPHEN 325 MG TAB PEG PRN (06:41)
--- NOTE | 2019-01-26 08:57 | CONS ---
Assessment/Plan Assessment/Plan Assessment/Plan (Daily) 1. Acute kidney injury on CKD III due to ATN and prerenal azotemia 2. 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 acute on chronic respiratory failure s/p tracheostomy 4. Atrial fibrillation:rate controlled 5. H/o Diabetes melitus 6. H/O HTN 7. Dysphagia: Status post G-tube 8. UTI with Urine Cx growing Klebsiella ESBL Plan: Na 135, BUN/Cr 25/1.05- No labs today to review yet Lasix 80mg po daily IV abx meropenem for ESBL Klebsiella UTI Renally dose all abx, monitor electrolytes General surgery following will follow up Consultation Date/Type/Reason Admit Date/Time Jan 19, 2019 at 10:30 Initial Consult Date 01/21/19 Type of Consult NEPHROLOGY Requesting Provider: GEO DELEON Date/Time of Note DATE: 01/26/19 TIME: 08:57 Exam/Review of Systems Exam Vitals Vital Signs Date Temp Pulse Resp B/P (MAP) Pulse Ox O2 O2 Flow FiO2 Time Delivery Rate 01/26/19 8.0 35 08:13 01/26/19 98.7 87 16 100/58 99 Mechanical 07:38 (72) Ventilator Intake and Output 01/25/19 01/25/19 01/26/19 1515:00 23:00 07:00 IntakeIntake Total 1350 ml 870 ml OutputOutput Total 2000 ml 1060 ml BalanceBalance -650 ml -190 ml Exam Constitutional: alert, other (oriented x 2 ), + tracheostomy in place Respiratory: congested cough, crackles/rales, diminished breath sounds Cardiovascular: regular rate and rhythm, nl pulses Gastrointestinal: soft, other (abdominal dressing + ) Musculoskeletal: nl extremities to inspection Extremities: normal pulses Neurological: alert, awake, no focal deficits Skin: nl turgor Results Result Diagram: 01/25/1929 01/25/19528 Results 24hrs Laboratory Tests Test 01/25/19 11:47 01/25/19 17:19 01/26/19 00:29 01/26/19 05:37 Bedside Glucose 111 107 104 97 Medications Medication Current Medications Oxycodone/ Acetaminophen (Percocet (5/ 325)) 1 tab Q6H PRN GTB PAIN LEVEL 6-10 Last administered on 01/20/19at 09:05; Admin Dose 1 TAB; Start 01/19/19 at 20:30 Acetaminophen (Tylenol Tab) 650 mg Q6H PRN PEG MILD PAIN(1-3)OR ELEVATED TEMP Last administered on 01/26/19at 06:41; Admin Dose 650 MG; Start 01/19/19 at 20:30 IV Flush (NS 3 ml) 3 ml PER PROTOCOL IV ; Start 01/19/19 at 20:30 Ondansetron HCl (Zofran Inj) 4 mg Q6H PRN IV NAUSEA AND/OR VOMITING; Start 01/20/19 at 02:30 Albuterol (Ventolin Hfa) 4 puff Q2H RESP THERAPY PRN INH SHORTNESS OF BREATH; Start 01/20/19 at 02:30 Ipratropium [place] (Atrovent Hfa) 4 puff Q2H RESP THERAPY PRN INH SHORTNESS OF BREATH; Start 01/20/19 at 02:30 Pantoprazole (Protonix Iv) 40 mg DAILY@06 IV Last administered on 01/26/19at 06:14; Admin Dose 40 MG; Start 01/20/19 at 06:00 Atenolol (Tenormin) 25 mg DAILY PO Last administered on 01/25/19at 08:10; Admin Dose 25 MG; Start 01/20/19 at 09:00 Digoxin (Digoxin) 0.25 mg DAILY@1300 PO Last administered on 01/25/19at 12:16; Admin Dose 0.25 MG; Start 01/20/19 at 13:00 Furosemide (Lasix) 80 mg DAILY@0600 PO Last administered on 01/26/19at 06:16; Admin Dose 80 MG; Start 01/20/19 at 06:00 Miscellaneous Information 1 ea NOTE XX ; Start 01/20/19 at 02:30 Glucose (Glutose) 15 gm Q15M PRN PO DECREASED GLUCOSE; Start 01/20/19 at 02:30 Glucose (Glutose) 22.5 gm Q15M PRN PO DECREASED GLUCOSE; Start 01/20/19 at 02:30 Dextrose (D50w Syringe) 25 ml Q15M PRN IV DECREASED GLUCOSE; Start 01/20/19 at 02:30 Dextrose (D50w Syringe) 50 ml Q15M PRN IV DECREASED GLUCOSE; Start 01/20/19 at 02:30 Glucagon (Glucagen) 1 mg Q15M PRN IM DECREASED GLUCOSE; Start 01/20/19 at 02:30 Glucose (Glutose) 15 gm Q15M PRN BUCCAL DECREASED GLUCOSE; Start 01/20/19 at 02:30 Miscellaneous [facility] This patient huff... PRN PRN XX WOUND CARE; Start 01/20/19 at 08:30 Morphine Sulfate (morphine) 1 mg Q2H PRN IV breakthrough pain Last administered on 01/24/19at 23:45; Admin Dose 1 MG; Start 01/20/19 at 12:30 Insulin Aspart (Novolog Insulin Pen) NOVOLOG *MILD* ALGORI... Q6 SC ; Start 01/21/19 at 12:00 Meropenem/Sodium Chloride 50 ml @ 100 mls/hr Q12 IVPB Last administered on 01/25/19at 21:23; Admin Dose 100 MLS/HR; Start 01/21/19 at 21:00 Lorazepam (Ativan) 1 mg Q6H PRN IV AGITATION Last administered on 01/25/19at 21:16; Admin Dose 1 MG; Start 01/21/19 at 18:00 RENAN HERNANDEZ MD Jan 26, 2019 08:57
[2019-01-26] MEDS: MEROPENEM 1 GM/50ML(PMX) 50 ML IVPB SCH ×2 (09:00→20:10)
[2019-01-26] MEDS: ATENOLOL 50 MG TAB PO SCH (09:00)
--- NOTE | 2019-01-26 10:04 | CONS ---
Assessment/Plan Assessment/Plan Assessment/Plan (Daily) Assessment recommendations; 1. Patient admitted for sigmoid colon resection due to recently diagnosed adenocarcinoma. 2. History of respiratory failure, patient weaned down to T-piece with stable p ulmonary status. 3. Interval resolution of encephalopathy. 4. History of recent severe pneumonia and sepsis. 5. UTI growing Klebsiella pneumonia. Patient currently on appropriate antimicrobial regimen. 6. Critical illness neuropathy/myopathy with interval improvement as well. Continue current supportive care. Consider discharge to rehab. Consultation Date/Type/Reason Admit Date/Time Jan 19, 2019 at 10:30 Initial Consult Date 01/21/19 Type of Consult Pulmonary Patient's condition is stable. Has remained hemodynamically stable. General exam; elderly male, on ventilator via tracheostomy, currently no distress. Requesting Provider: GEO DELEON Date/Time of Note DATE: 01/26/19 TIME: 10:02 24 HR Interval Summary Free Text/Dictation Patient's condition is stable. Remains awake and alert. Has remained hemodynamically stable. General exam; elderly male, on T-piece via tracheostomy, currently no distress. Exam/Review of Systems Exam Vitals Vital Signs Date Temp Pulse Resp B/P (MAP) Pulse Ox O2 O2 Flow FiO2 Time Delivery Rate 01/26/19 8.0 35 08:13 01/26/19 89 08:00 01/26/19 98.7 08:00 01/26/19 16 100/58 99 Mechanical 07:38 (72) Ventilator Intake and Output 01/25/19 01/25/19 01/26/19 1414:59 22:59 06:59 IntakeIntake Total 1350 ml 870 ml OutputOutput Total 2000 ml 1060 ml BalanceBalance -650 ml -190 ml Exam H HEENT exam; supple neck, no JVD. No lymphadenopathy. Midline trachea. No th yromegaly. Tracheostomy in place. Patient has fair dentition. Chest exam; diminished but clear breath sounds. S1-S2 audible, no murmurs. Regular rhythm. Abdomen exam; soft, colostomy in place. G-tube in place. Midline dressing in place. Abdomen is nontender and nondistended. Bowel sounds audible. Extremity exam; no peripheral edema. TURBINE ENGINEER exam; no focal deficit. Results Result Diagram: 01/25/1929 01/25/19528 Results 24hrs Laboratory Tests Test 01/25/19 11:47 01/25/19 17:19 01/26/19 00:29 01/26/19 05:37 Bedside Glucose 111 107 104 97 Medications Medication Current Medications Oxycodone/ Acetaminophen (Percocet (5/ 325)) 1 tab Q6H PRN GTB PAIN LEVEL 6-10 Last administered on 01/20/19at 09:05; Admin Dose 1 TAB; Start 01/19/19 at 20:30 Acetaminophen (Tylenol Tab) 650 mg Q6H PRN PEG MILD PAIN(1-3)OR ELEVATED TEMP Last administered on 01/26/19at 06:41; Admin Dose 650 MG; Start 01/19/19 at 20:30 IV Flush (NS 3 ml) 3 ml PER PROTOCOL IV ; Start 01/19/19 at 20:30 Ondansetron HCl (Zofran Inj) 4 mg Q6H PRN IV NAUSEA AND/OR VOMITING; Start 01/20/19 at 02:30 Albuterol (Ventolin Hfa) 4 puff Q2H RESP THERAPY PRN INH SHORTNESS OF BREATH; Start 01/20/19 at 02:30 Ipratropium [place] (Atrovent Hfa) 4 puff Q2H RESP THERAPY PRN INH SHORTNESS OF BREATH; Start 01/20/19 at 02:30 Pantoprazole (Protonix Iv) 40 mg DAILY@06 IV Last administered on 01/26/19at 06:14; Admin Dose 40 MG; Start 01/20/19 at 06:00 Atenolol (Tenormin) 25 mg DAILY PO Last administered on 01/26/19at 09:00; Admin Dose 25 MG; Start 01/20/19 at 09:00 Digoxin (Digoxin) 0.25 mg DAILY@1300 PO Last administered on 01/25/19at 12:16; Admin Dose 0.25 MG; Start 01/20/19 at 13:00 Furosemide (Lasix) 80 mg DAILY@0600 PO Last administered on 01/26/19at 06:16; Admin Dose 80 MG; Start 01/20/19 at 06:00 Miscellaneous Information 1 ea NOTE XX ; Start 01/20/19 at 02:30 Glucose (Glutose) 15 gm Q15M PRN PO DECREASED GLUCOSE; Start 01/20/19 at 02:30 Glucose (Glutose) 22.5 gm Q15M PRN PO DECREASED GLUCOSE; Start 01/20/19 at 02:30 Dextrose (D50w Syringe) 25 ml Q15M PRN IV DECREASED GLUCOSE; Start 01/20/19 at 02:30 Dextrose (D50w Syringe) 50 ml Q15M PRN IV DECREASED GLUCOSE; Start 01/20/19 at 02:30 Glucagon (Glucagen) 1 mg Q15M PRN IM DECREASED GLUCOSE; Start 01/20/19 at 02:30 Glucose (Glutose) 15 gm Q15M PRN BUCCAL DECREASED GLUCOSE; Start 01/20/19 at 02:30 Miscellaneous Information (Pending [facility] Order For Wound Care) This patient huff... PRN PRN XX WOUND CARE; Start 01/20/19 at 08:30 Morphine Sulfate (morphine) 1 mg Q2H PRN IV breakthrough pain Last administered on 01/24/19at 23:45; Admin Dose 1 MG; Start 01/20/19 at 12:30 Insulin Aspart (Novolog Insulin Pen) NOVOLOG *MILD* ALGORI... Q6 SC ; Start 01/21/19 at 12:00 Meropenem/Sodium Chloride 50 ml @ 100 mls/hr Q12 IVPB Last administered on 01/26/19at 09:00; Admin Dose 100 MLS/HR; Start 01/21/19 at 21:00 Lorazepam (Ativan) 1 mg Q6H PRN IV AGITATION Last administered on 01/25/19at 21:16; Admin Dose 1 MG; Start 01/21/19 at 18:00 OK SOOD 6, 2019 10:04
--- NOTE | 2019-01-26 11:58 | PN ---
Date/Time of Note Date/Time of Note DATE: 01/26/19 TIME: 11:53 Assessment/Plan Lines/Catheters IV Catheter Type (from [facility]): Saline Lock Ballard in Place (from [facility]): No Assessment/Plan Chief Complaint/Hosp Course 1. Sigmoid/rectal adenocarcinoma with obstruction, status post stent and significant adhesions, colorectal bleed with anemia: Status post laparoscopic co nverted to open low anterior resection with end colostomy and laparoscopic appendectomy 01/19/19; Path: Moderately differentiated adenocarcinoma with ulceration and marked luminal stenosis involving upper rectum, invades muscularis propria into pericolorectal tissue, focally involving mesenteric margin and colonic serosa. -- Metastatic adenocarcinoma with extranodal extension involving twelve (12) of nineteen (19) mesenteric lymph nodes, associated with tumor deposits. -continue tube feeds titrate to goal, monitor bowel function -ambulate as able -ice pack to abdominal wall -continue Drain -Pain management -Close monitoring -oncology f/u 2. Fever, episode this morning -further w/u; imaging today 3. UTI s/p abx per sensitivity -frequent bladder emptying/cath care 4. Hypochromic anemia: Some blood noted in ostomy bag; drop in H&H: Status post PRBC transfusion -Monitor for now and transfuse as needed 5. VDRF: Mild bibasilar atelectasis versus airspace disease -Pulmonary toilet 6. Dysphagia status post PEG tube -tube feed as tolerated 7. SIMI: -Limit nephrotoxic meds -Renally dose meds -Judicious fluids Thank you. Patient seen and examined in collaboration with Dr. Srini Rose. Subjective 24 Hr Interval Summary Fever this morning. +bowel function. No labored breathing, congested cough, arrhythmias, v/d/hematuria. Exam/Review of Systems Vital Signs Vitals Vital Signs Date Temp Pulse Resp B/P (MAP) Pulse Ox O2 O2 Flow FiO2 Time Delivery Rate 01/26/19 76 20 99 Aerosol 8.0 35 10:55 T Tube 01/26/19 97.8 104/57 10:00 (73) Intake and Output 01/25/19 01/25/19 01/26/19 1515:00 23:00 07:00 IntakeIntake Total 1350 ml 870 ml OutputOutput Total 2000 ml 1060 ml BalanceBalance -650 ml -190 ml Exam Free Text/Dictation Constitutional: alert; follows simple commands Psych: confusion Head: normocephalic, atraumatic Eyes: nl conjunctiva, nl lids, nl sclera ENMT: nl external ears & nose, mucosa pink and moist; No nl lips & teeth (Edentulous-bottom) Neck: supple, non-tender, other (Tracheostomy) Respiratory: normal air movement; No congested cough, No labored breathing Cardiovascular: regular rate and rhythm (Sinus rhythm); No edema Gastrointestinal: soft, distended (Minimal), other (Incision sites: (Midline: Staple line clean, no cristina-incisional erythema/drainage); ELIUD drain serosanguineous; colostomy: min dusky, functional) Genitourinary - Male: nl penis, nl scrotum Musculoskeletal: nl extremities to inspection Extremities: normal pulses, pitting pedal edema Neurological: confused; No nl mental status, No nl speech, No nl strength (Generalized weakness) Skin: No rash or lesions Results Result Diagram: 01/25/19 0529 01/25/19 0529 TRACY FERREIRA NP Jan 26, 2019 11:58
--- NOTE | 2019-01-26 12:27 | CONS ---
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 this is fairly locally advanced, if he were stronger and had better performance status he would be a candidate for adjuvant 5FU based therapy + oxaliplatin, however given his age and poor PS he would likely derive more harm than benefit. may potentially be a candidate for adjuvant 5FU alone -once he is recovered can consider giving adjuvant chemo. I explained to his son at bedside that his disease is considered locally advanced and that LN involvement predicts a poorer prognosis. Consultation Date/Type/Reason Admit Date/Time Jan 19, 2019 at 10:30 Initial Consult Date 01/21/19 Requesting Provider: GEO DELEON Date/Time of Note DATE: 01/26/19 TIME: 12:24 24 HR Interval Summary Free Text/Dictation pathology reveals pT4a pNb2.adenoca Exam/Review of Systems Exam Vitals Vital Signs Date Temp Pulse Resp B/P (MAP) Pulse Ox O2 O2 Flow FiO2 Time Delivery Rate 01/26/19 97.7 80 18 110/55 96 12:20 (73) 01/26/19 Aerosol 8.0 35 10:55 T Tube Intake and Output 01/25/19 01/25/19 01/26/19 1515:00 23:00 07:00 IntakeIntake Total 1350 ml 870 ml OutputOutput Total 2000 ml 1060 ml BalanceBalance -650 ml -190 ml Constitutional: frail Psych: no complaints, nl mood/affect Head: normocephalic, atraumatic Eyes: nl conjunctiva, EOMI, nl lids, nl sclera, PERRL ENMT: nl external ears & nose, nl lips & teeth, nl nasal mucosa & septum Neck: supple, non-tender Cardiovascular: regular rate and rhythm, nl pulses Gastrointestinal: soft, nl liver, spleen, non-tender Musculoskeletal: nl extremities to inspection, nl gait and stance Results Result Diagram: 01/25/1952801/25/19528 Results 24hrs Laboratory Tests Test 01/25/19 17:19 01/26/19 00:29 01/26/19 05:37 01/26/19 12:19 Bedside Glucose 107 104 97 110 Medications Medication Current Medications Oxycodone/ Acetaminophen (Percocet (5/ 325)) 1 tab Q6H PRN GTB PAIN LEVEL 6-10 Last administered on 01/20/19at 09:05; Admin Dose 1 TAB; Start 01/19/19 at 20:30 Acetaminophen (Tylenol Tab) 650 mg Q6H PRN PEG MILD PAIN(1-3)OR ELEVATED TEMP Last administered on 01/26/19at 06:41; Admin Dose 650 MG; Start 01/19/19 at 20:30 IV Flush (NS 3 ml) 3 ml PER PROTOCOL IV ; Start 01/19/19 at 20:30 Ondansetron HCl (Zofran Inj) 4 mg Q6H PRN IV NAUSEA AND/OR VOMITING; Start 01/20/19 at 02:30 Albuterol (Ventolin Hfa) 4 puff Q2H RESP THERAPY PRN INH SHORTNESS OF BREATH; Start 01/20/19 at 02:30 Ipratropium [place] (Atrovent Hfa) 4 puff Q2H RESP THERAPY PRN INH SHORTNESS OF BREATH; Start 01/20/19 at 02:30 Pantoprazole (Protonix Iv) 40 mg DAILY@06 IV Last administered on 01/26/19at 06:14; Admin Dose 40 MG; Start 01/20/19 at 06:00 Atenolol (Tenormin) 25 mg DAILY PO Last administered on 01/26/19at 09:00; Admin Dose 25 MG; Start 01/20/19 at 09:00 Digoxin (Digoxin) 0.25 mg DAILY@1300 PO Last administered on 01/25/19at 12:16; Admin Dose 0.25 MG; Start 01/20/19 at 13:00 Furosemide (Lasix) 80 mg DAILY@0600 PO Last administered on 01/26/19at 06:16; Admin Dose 80 MG; Start 01/20/19 at 06:00 Miscellaneous Information 1 ea NOTE XX ; Start 01/20/19 at 02:30 Glucose (Glutose) 15 gm Q15M PRN PO DECREASED GLUCOSE; Start 01/20/19 at 02:30 Glucose (Glutose) 22.5 gm Q15M PRN PO DECREASED GLUCOSE; Start 01/20/19 at 02:30 Dextrose (D50w Syringe) 25 ml Q15M PRN IV DECREASED GLUCOSE; Start 01/20/19 at 02:30 Dextrose (D50w Syringe) 50 ml Q15M PRN IV DECREASED GLUCOSE; Start 01/20/19 at 02:30 Glucagon (Glucagen) 1 mg Q15M PRN IM DECREASED GLUCOSE; Start 01/20/19 at 02:30 Glucose (Glutose) 15 gm Q15M PRN BUCCAL DECREASED GLUCOSE; Start 01/20/19 at 02:30 [facility] This patient huff... PRN PRN XX WOUND CARE; Start 01/20/19 at 08:30 Morphine Sulfate (morphine) 1 mg Q2H PRN IV breakthrough pain Last administered on 01/24/19at 23:45; Admin Dose 1 MG; Start 01/20/19 at 12:30 Insulin Aspart (Novolog Insulin Pen) NOVOLOG *MILD* ALGORI... Q6 SC ; Start 01/21/19 at 12:00 Meropenem/Sodium Chloride 50 ml @ 100 mls/hr Q12 IVPB Last administered on 01/26/19 09:00; Admin Dose 100 MLS/HR; Start 01/21/19 at 21:00 Lorazepam (Ativan) 1 mg Q6H PRN IV AGITATION Last administered on 01/25/19at 21:16; Admin Dose 1 MG; Start 01/21/19 at 18:00 TEO LOZOYA Jan 26, 2019 12:27
[2019-01-26] MEDS: DIGOXIN 0.25 MG TAB PO SCH (13:06)
--- NOTE | 2019-01-26 14:04 | CONS ---
Assessment/Plan Assessment/Plan Hospital Course (Demo Recall) IMPRESSION: 1. Tachycardia, intermittent consistent with sinus tachycardia, likely in the setting of pain and anxiety-improved 2. Hypotension, borderline after given pain meds, ensure good volume status. 3. Abnormal electrocardiogram, right bundle branch block, secondary repolarization abnormalities, assess for heart block, rule out acute coronary syndrome postoperatively. 4. Colon carcinoma, status post resection 5. Anemia. 6. Renal failure, improved currently 7. Altered mental state/encephalopathy. 8. Diabetes mellitus. 9. Leukocytosis. 10. Hypernatremia-resolved 11. Fevers Recc: -Tele -Continue BB as tolerated only -Follow volume status closely on daily lasix -Continue abx's and f/u cx data -Rx fevers -pain control Consultation Date/Type/Reason Admit Date/Time Jan 19, 2019 at 10:30 Initial Consult Date 01/20/19 Type of Consult Cardiology Reason for Consultation tachycardia Requesting Provider: GEO DELEON Date/Time of Note DATE: 01/26/19 TIME: 14:01 Exam/Review of Systems Vital Signs Vitals Vital Signs Date Temp Pulse Resp B/P (MAP) Pulse Ox O2 O2 Flow FiO2 Time Delivery Rate 01/26/19 97.7 80 18 110/55 96 12:20 (73) 01/26/19 Aerosol 8.0 35 10:55 T Tube Intake and Output 01/25/19 01/25/19 01/26/19 1515:00 23:00 07:00 IntakeIntake Total 1350 ml 870 ml OutputOutput Total 2000 ml 1060 ml BalanceBalance -650 ml -190 ml Exam Exam Review of Systems: CONSTITUTIONAL: No fevers, chills. PULMONARY: No sob CARDIOVASCULAR: No chest pain/palpitations GASTROINTESTINAL: No nausea/vomiting. GENITOURINARY: No hematuria/dysuria. MUSCULOSKELETAL: No myagias/arthalgias. PSYCHIATRIC: The patient denies depression. NEUROLOGIC: somewhat lethargic Constitutional: alert Psych: no complaints ENMT: mucosa pink and moist Neck: other (trached) Respiratory: diminished breath sounds (at bases/B) Cardiovascular: regular rate and rhythm Gastrointestinal: soft, non-tender Musculoskeletal: muscle weakness (mild generalized) Extremities: edema (none) Neurological: other (No focal deficits) Labs Result Diagram: 01/25/1952801/25/19528 Results 24hrs Laboratory Tests Test 01/25/19 17:19 01/26/19 00:29 01/26/19 05:37 01/26/19 12:19 Bedside Glucose 107 104 97 110 Medications Medications Current Medications Oxycodone/ Acetaminophen (Percocet (5/ 325)) 1 tab Q6H PRN GTB PAIN LEVEL 6-10 Last administered on 01/20/19at 09:05; Admin Dose 1 TAB; Start 01/19/19 at 20:30 Acetaminophen (Tylenol Tab) 650 mg Q6H PRN PEG MILD PAIN(1-3)OR ELEVATED TEMP Last administered on 01/26/19at 06:41; Admin Dose 650 MG; Start 01/19/19 at 20:30 IV Flush (NS 3 ml) 3 ml PER PROTOCOL IV ; Start 01/19/19 at 20:30 Ondansetron HCl (Zofran Inj) 4 mg Q6H PRN IV NAUSEA AND/OR VOMITING; Start 01/20/19 at 02:30 Albuterol (Ventolin Hfa) 4 puff Q2H RESP THERAPY PRN INH SHORTNESS OF BREATH; Start 01/20/19 at 02:30 Ipratropium [place] (Atrovent Hfa) 4 puff Q2H RESP THERAPY PRN INH SHORTNESS OF BREATH; Start 01/20/19 at 02:30 Pantoprazole (Protonix Iv) 40 mg DAILY@06 IV Last administered on 01/26/19at 06:14; Admin Dose 40 MG; Start 01/20/19 at 06:00 Atenolol (Tenormin) 25 mg DAILY PO Last administered on 01/26/19at 09:00; Admin Dose 25 MG; Start 01/20/19 at 09:00 Digoxin (Digoxin) 0.25 mg DAILY@1300 PO Last administered on 01/26/19at 13:06; Admin Dose 0.25 MG; Start 01/20/19 at 13:00 Furosemide (Lasix) 80 mg DAILY@0600 PO Last administered on 01/26/19at 06:16; Admin Dose 80 MG; Start 01/20/19 at 06:00 Miscellaneous Information 1 ea NOTE XX ; Start 01/20/19 at 02:30 Glucose (Glutose) 15 gm Q15M PRN PO DECREASED GLUCOSE; Start 01/20/19 at 02:30 Glucose (Glutose) 22.5 gm Q15M PRN PO DECREASED GLUCOSE; Start 01/20/19 at 02:30 Dextrose (D50w Syringe) 25 ml Q15M PRN IV DECREASED GLUCOSE; Start 01/20/19 at 02:30 Dextrose (D50w Syringe) 50 ml Q15M PRN IV DECREASED GLUCOSE; Start 01/20/19 at 02:30 Glucagon (Glucagen) 1 mg Q15M PRN IM DECREASED GLUCOSE; Start 01/20/19 at 02:30 Glucose (Glutose) 15 gm Q15M PRN BUCCAL DECREASED GLUCOSE; Start 01/20/19 at 02:30 Miscellaneous Information (Pending [facility]yl Order For Wound Care) This patient huff... PRN PRN XX WOUND CARE; Start 01/20/19 at 08:30 Morphine Sulfate (morphine) 1 mg Q2H PRN IV breakthrough pain Last administered on 01/24/19at 23:45; Admin Dose 1 MG; Start 01/20/19 at 12:30 Insulin Aspart (Novolog Insulin Pen) NOVOLOG *MILD* ALGORI... Q6 SC ; Start 01/21/19 at 12:00 Meropenem/Sodium Chloride 50 ml @ 100 mls/hr Q12 IVPB Last administered on 01/26/19at 09:00; Admin Dose 100 MLS/HR; Start 01/21/19 at 21:00 Lorazepam (Ativan) 1 mg Q6H PRN IV AGITATION Last administered on 01/25/19at 21:16; Admin Dose 1 MG; Start 01/21/19 at 18:00 TWAN ESTEVEZ Jan 26, 2019 14:04
[2019-01-26] MEDS ORDERED: IOHEXOL 300MG/ML 150 ML BTL ONE (15:07)
[2019-01-26] MEDS ORDERED: SOD CHLORIDE 0.9% 100 ML ONE (15:07)
--- NOTE | 2019-01-26 19:40 | PN ---
Date/Time of Note Date/Time of Note DATE: 01/26/19 TIME: 19:40 Assessment/Plan VTE Prophylaxis Risk score (from Ns)>0 risk: 14 SCD applied (from Ns): Yes Pharmacological prophylaxis: heparin Lines/Catheters IV Catheter Type (from Nrsg): Saline Lock Urinary Cath still in place: No Assessment/Plan Hospital Course 78-year-old male who is trach dependent with a history of diabetes, atrial fibrillation, obstructive uropathy, dysphagia status post G-tube, sigmoid/colon carcinoma status post stent admitted to ICU status post Laparoscopic converted to open low anterior resection with end colostomy, splenic mobilization and a laparoscopic appendectomy. Fever: - Ann culture - Hold off on abx for now 1. 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 Trach dependent respiratory failure: Currently on a vent -Pulmonary to manage 3. Atrial fibrillation: Continue meds. Adjust as needed. Will hold Cardizem and atenolol given current hypotension 4. Hypotension-resolved -Improved with bolus 5. Diabetes: Insulin 6. Acute kidney injury on CKD -Nephrology consultation appreciated 7. UTI -Urine culture is growing Klebsiella pneumonia ESBL -Continue meropenem -UA is positive 8. Dysphagia: Status post G-tube Prophylaxis: SCDs DC planning: Anticipate DC back to [place] this coming week, follow-up on surgery recommendations for DC planning Result Diagram: 01/25/19 0529 01/25/19 0529 Results 24hrs Laboratory Tests Test 01/26/19 00:29 01/26/19 05:37 01/26/19 12:19 01/26/19 18:26 Bedside Glucose 104 97 110 101 Exam/Review of Systems Exam Vitals Vital Signs Date Temp Pulse Resp B/P (MAP) Pulse Ox O2 O2 Flow FiO2 Time Delivery Rate 01/26/19 98.2 82 18 114/65 99 18:19 (81) 01/26/19 Aerosol 8.0 35 13:44 T Tube Intake and Output 01/25/19 01/25/19 01/26/19 1515:00 23:00 07:00 IntakeIntake Total 1350 ml 870 ml OutputOutput Total 2000 ml 1060 ml BalanceBalance -650 ml -190 ml Results Results 24hrs Laboratory Tests Test 01/26/19 00:29 01/26/19 05:37 01/26/19 12:19 01/26/19 18:26 Bedside Glucose 104 97 110 101 Medications Medication Current Medications Oxycodone/ Acetaminophen (Percocet (5/ 325)) 1 tab Q6H PRN GTB PAIN LEVEL 6-10 Last administered on 01/20/19at 09:05; Admin Dose 1 TAB; Start 01/19/19 at 20:30 Acetaminophen (Tylenol Tab) 650 mg Q6H PRN PEG MILD PAIN(1-3)OR ELEVATED TEMP Last administered on 01/26/19at 06:41; Admin Dose 650 MG; Start 01/19/19 at 20:30 IV Flush (NS 3 ml) 3 ml PER PROTOCOL IV ; Start 01/19/19 at 20:30 Ondansetron HCl (Zofran Inj) 4 mg Q6H PRN IV NAUSEA AND/OR VOMITING; Start 01/20/19 at 02:30 Albuterol (Ventolin Hfa) 4 puff Q2H RESP THERAPY PRN INH SHORTNESS OF BREATH; Start 01/20/19 at 02:30 Ipratropium [place] (Atrovent Hfa) 4 puff Q2H RESP THERAPY PRN INH SHORTNESS OF BREATH; Start 01/20/19 at 02:30 Pantoprazole (Protonix Iv) 40 mg DAILY@06 IV Last administered on 01/26/19at 06:14; Admin Dose 40 MG; Start 01/20/19 at 06:00 Atenolol (Tenormin) 25 mg DAILY PO Last administered on 01/26/19at 09:00; Admin Dose 25 MG; Start 01/20/19 at 09:00 Furosemide (Lasix) 80 mg DAILY@0600 PO Last administered on 01/26/19at 06:16; Admin Dose 80 MG; Start 01/20/19 at 06:00 Miscellaneous Information 1 ea NOTE XX ; Start 01/20/19 at 02:30 Glucose (Glutose) 15 gm Q15M PRN PO DECREASED GLUCOSE; Start 01/20/19 at 02:30 Glucose (Glutose) 22.5 gm Q15M PRN PO DECREASED GLUCOSE; Start 01/20/19 at 02:30 Dextrose (D50w Syringe) 25 ml Q15M PRN IV DECREASED GLUCOSE; Start 01/20/19 at 02:30 Dextrose (D50w Syringe) 50 ml Q15M PRN IV DECREASED GLUCOSE; Start 01/20/19 at 02:30 Glucagon (Glucagen) 1 mg Q15M PRN IM DECREASED GLUCOSE; Start 01/20/19 at 02:30 Glucose (Glutose) 15 gm Q15M PRN BUCCAL DECREASED GLUCOSE; Start 01/20/19 at 02:30 Miscellaneous Information (Pending [facility]yl Order For Wound Care) This patient huff... PRN PRN XX WOUND CARE; Start 01/20/19 at 08:30 Morphine Sulfate (morphine) 1 mg Q2H PRN IV breakthrough pain Last administered on 01/24/19at 23:45; Admin Dose 1 MG; Start 01/20/19 at 12:30 Insulin Aspart (Novolog Insulin Pen) NOVOLOG *MILD* ALGORI... Q6 SC ; Start 01/21/19 at 12:00 Meropenem/Sodium Chloride 50 ml @ 100 mls/hr Q12 IVPB Last administered on 01/26/19at 09:00; Admin Dose 100 MLS/HR; Start 01/21/19 at 21:00 Lorazepam (Ativan) 1 mg Q6H PRN IV AGITATION Last administered on 01/25/19at 21:16; Admin Dose 1 MG; Start 01/21/19 at 18:00 ABBY AL MD Jan 26, 2019 19:40
[2019-01-27] VITALS (21 sets, daily range): BP systolic 95–138; BP diastolic 53–72; PULSE 20–104; RESP 16–83
[2019-01-27] MEDS: LORAZEPAM 2 MG INJ IV PRN (00:57)
[2019-01-27] MEDS: PANTOPRAZOLE 40 MG INJ IV SCH (05:25)
[2019-01-27] MEDS: FUROSEMIDE 40 MG TAB PO SCH (05:25)
[2019-01-27] MEDS: INSULIN ASPART [NOVOLOG] 3 ML PEN SC SCH ×3 (05:26→12:00)
[2019-01-27] MEDS: ATENOLOL 50 MG TAB PO SCH (09:00)
--- NOTE | 2019-01-27 09:38 | CONS ---
Assessment/Plan Assessment/Plan Assessment/Plan (Daily) Assessment and recommendations; 1. Patient admitted for elective sigmoid resection due to recently diagnosed adenocarcinoma. Doing well postoperatively. 2. Chronic respiratory failure, wean down to T-piece with adequate pulmonary status. 3. Marked improvement in encephalopathy. 4. 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 5. History of recent severe bilateral pneumonia 6. Mild anemia. 7. UTI due to Klebsiella pneumonia. Continue current supportive care. Consider transfer to rehab center. Consider stopping antibiotics. Consultation Date/Type/Reason Admit Date/Time Jan 19, 2019 at 10:30 Initial Consult Date 01/21/19 Type of Consult Pulmonary Patient's condition is stable. Has remained hemodynamically stable. General exam; elderly male, on ventilator via tracheostomy, currently no distress. Requesting Provider: GEO DELEON Date/Time of Note DATE: 01/27/19 TIME: 09:36 24 HR Interval Summary Free Text/Dictation Patient's condition is stable. Remains awake and alert. Doing very well on T-piece. Has remained hemodynamically stable. General exam; elderly male, on T-piece via tracheostomy. Awake and alert. Currently no distress. Exam/Review of Systems Exam Vitals Vital Signs Date Temp Pulse Resp B/P (MAP) Pulse Ox O2 O2 Flow FiO2 Time Delivery Rate 01/27/19 106 26 98 Aerosol 8.0 35 09:26 01/27/19 98.0 121/67 07:59 (85) Intake and Output 01/26/19 01/26/19 01/27/19 1515:00 23:00 07:00 IntakeIntake Total 900 ml 820 ml OutputOutput Total 1000 ml 1155 ml BalanceBalance -100 ml -335 ml Exam HEENT exam; supple neck, no JVD. No lymphadenopathy. Midline trachea. No thyromegaly. Tracheostomy in place. Patient has fair dentition. No neck masses. Chest exam; clear to auscultation. S1-S2 audible, no murmurs. Regular rhythm. Abdomen exam; soft, nontender. No organomegaly. G-tube in place. Colostomy in place. Midline dressing in place. Bowel sounds audible. Abdomen is nontender and nondistended. Extremity exam; no peripheral edema clubbing. SET UP WORK[employer] exam; no focal deficit. Results Result Diagram: 01/25/1952801/25/19528 Results 24hrs Laboratory Tests Test 01/26/19 12:19 01/26/19 18:26 01/27/19 00:16 01/27/19 05:23 Bedside Glucose 110 101 110 97 Medications Medication Current Medications Oxycodone/ Acetaminophen (Percocet (5/ 325)) 1 tab Q6H PRN GTB PAIN LEVEL 6-10 Last administered on 01/20/19at 09:05; Admin Dose 1 TAB; Start 01/19/19 at 20:30 Acetaminophen (Tylenol Tab) 650 mg Q6H PRN PEG MILD PAIN(1-3)OR ELEVATED TEMP Last administered on 01/26/19at 06:41; Admin Dose 650 MG; Start 01/19/19 at 20:30 IV Flush (NS 3 ml) 3 ml PER PROTOCOL IV ; Start 01/19/19 at 20:30 Ondansetron HCl (Zofran Inj) 4 mg Q6H PRN IV NAUSEA AND/OR VOMITING; Start 01/20/19 at 02:30 Albuterol (Ventolin Hfa) 4 puff Q2H RESP THERAPY PRN INH SHORTNESS OF BREATH; Start 01/20/19 at 02:30 Ipratropium [place] (Atrovent Hfa) 4 puff Q2H RESP THERAPY PRN INH SHORTNESS OF BREATH; Start 01/20/19 at 02:30 Pantoprazole (Protonix Iv) 40 mg DAILY@06 IV Last administered on 01/27/19at 05:25; Admin Dose 40 MG; Start 01/20/19 at 06:00 Atenolol (Tenormin) 25 mg DAILY PO Last administered on 01/26/19at 09:00; Admin Dose 25 MG; Start 01/20/19 at 09:00 Furosemide (Lasix) 80 mg DAILY@0600 PO Last administered on 01/27/19at 05:25; Admin Dose 80 MG; Start 01/20/19 at 06:00 Miscellaneous Information 1 ea NOTE XX ; Start 01/20/19 at 02:30 Glucose (Glutose) 15 gm Q15M PRN PO DECREASED GLUCOSE; Start 01/20/19 at 02:30 Glucose (Glutose) 22.5 gm Q15M PRN PO DECREASED GLUCOSE; Start 01/20/19 at 02:30 Dextrose (D50w Syringe) 25 ml Q15M PRN IV DECREASED GLUCOSE; Start 01/20/19 at 02:30 Dextrose (D50w Syringe) 50 ml Q15M PRN IV DECREASED GLUCOSE; Start 01/20/19 at 02:30 Glucagon (Glucagen) 1 mg Q15M PRN IM DECREASED GLUCOSE; Start 01/20/19 at 02:30 Glucose (Glutose) 15 gm Q15M PRN BUCCAL DECREASED GLUCOSE; Start 01/20/19 at 02:30 [facility] This patient huff... PRN PRN XX WOUND CARE; Start 01/20/19 at 08:30 Morphine Sulfate (morphine) 1 mg Q2H PRN IV breakthrough pain Last administered on 01/24/19at 23:45; Admin Dose 1 MG; Start 01/20/19 at 12:30 Insulin Aspart (Novolog Insulin Pen) NOVOLOG *MILD* ALGORI... Q6 SC ; Start 01/21/19 at 12:00 Meropenem/Sodium Chloride 50 ml @ 100 mls/hr Q12 IVPB Last administered on 01/26/19at 20:10; Admin Dose 100 MLS/HR; Start 01/21/19 at 21:00 Lorazepam (Ativan) 1 mg Q6H PRN IV AGITATION Last administered on 01/27/19at 00:57; Admin Dose 1 MG; Start 01/21/19 at 18:00 OK SOOD Jan 27, 2019 09:38
[2019-01-27] MEDS: MEROPENEM 1 GM/50ML(PMX) 50 ML IVPB SCH ×2 (10:35→20:48)
--- NOTE | 2019-01-27 10:47 | PN ---
Date/Time of Note Date/Time of Note DATE: 01/27/19 TIME: 10:41 Assessment/Plan Lines/Catheters IV Catheter Type (from [facility]): Saline Lock [place] in Place (from [facility]): No Assessment/Plan Chief Complaint/Hosp Course 1. Sigmoid/rectal adenocarcinoma with obstruction, status post stent and significant adhesions, colorectal bleed with anemia: Status post laparoscopic co nverted to open low anterior resection with end colostomy and laparoscopic appendectomy 01/19/19; CT noted: Possible abscess Path: Moderately differentiated adenocarcinoma with ulceration and marked luminal stenosis involving upper rectum, invades muscularis propria into pericolorectal tissue, focally involving mesenteric margin and colonic serosa. -- Metastatic adenocarcinoma with extranodal extension involving twelve (12) of nineteen (19) mesenteric lymph nodes, associated with tumor deposits. -Antibiotics- ID Consult (already notified: Dr. Damian/GEOPHYSICAL LABORATORY DIRECTOR [place]) -will get in touch with radiology to determine if abscess is drainable -continue tube feeds titrate to goal, monitor bowel function -ambulate as able -ice pack to abdominal wall -continue Drain -Pain management -Close monitoring -oncology f/u 2. Fever, no episodes this morning -As above 3. UTI : Possible cystitis per recent CT -Urology follow-up -frequent bladder emptying/cath care 4. Hypochromic anemia: Some blood noted in ostomy bag; drop in H&H: Status post PRBC transfusion -Monitor for now and transfuse as needed 5. VDRF: Mild bibasilar atelectasis versus airspace disease -Pulmonary toilet 6. Dysphagia status post PEG tube -tube feed as tolerated 7. SIMI: -Limit nephrotoxic meds -Renally dose meds -Judicious fluids Thank you. Patient seen and examined in collaboration with Dr. Srini Rose. Subjective [address] noted. No fevers overnight. + Bowel function. Tolerating tube feeds. No labored breathing, congested cough, cp, palpitations, huff, dizziness, n/v/d/dysuria. Exam/Review of Systems Vital Signs Vitals Vital Signs Date Temp Pulse Resp B/P (MAP) Pulse Ox O2 O2 Flow FiO2 Time Delivery Rate 01/27/19 106 26 98 Aerosol 8.0 35 09:26 01/27/19 98.0 121/67 07:59 (85) Intake and Output 01/26/19 01/26/19 01/27/19 1515:00 23:00 07:00 IntakeIntake Total 900 ml 820 ml OutputOutput Total 1000 ml 1155 ml BalanceBalance -100 ml -335 ml Exam Free Text/Dictation Constitutional: alert; follows simple commands Psych: confusion Head: normocephalic, atraumatic Eyes: nl conjunctiva, nl lids, nl sclera ENMT: nl external ears & nose, mucosa pink and moist; No nl lips & teeth (Edentulous-bottom) Neck: supple, non-tender, other (Tracheostomy) Respiratory: normal air movement; No congested cough, No labored breathing Cardiovascular: regular rate and rhythm (Sinus rhythm); No edema Gastrointestinal: soft, distended (Minimal), other (Incision sites: (Midline: Staple line clean, no cristina-incisional erythema/drainage); ELIUD drain serosanguineous; colostomy: functional) Genitourinary - Male: nl penis, nl scrotum Musculoskeletal: nl extremities to inspection Extremities: normal pulses, pitting pedal edema Neurological: confused; No nl mental status, No nl speech, No nl strength (Generalized weakness) Skin: No rash or lesions Results Result Diagram: 01/25/19 0529 01/25/19 0529 TRACY FERREIRA NP Jan 27, 2019 10:47
--- NOTE | 2019-01-27 12:01 | CONS ---
Assessment/Plan Assessment/Plan Assessment/Plan (Daily) 1. Acute kidney injury on CKD III due to ATN and prerenal azotemia 2. 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 acute on chronic respiratory failure s/p tracheostomy 4. Atrial fibrillation:rate controlled 5. H/o Diabetes melitus 6. H/O HTN 7. Dysphagia: Status post G-tube 8. UTI with Urine Cx growing Klebsiella ESBL Plan: Lasix 80mg po daily IV abx meropenem for ESBL Klebsiella UTI Renally dose all abx, monitor electrolytes General surgery following will follow up Consultation Date/Type/Reason Admit Date/Time Jan 19, 2019 at 10:30 Initial Consult Date 01/21/19 Type of Consult NEPHROLOGY Requesting Provider: GEO DELEON Date/Time of Note DATE: 01/27/19 TIME: 12:01 Exam/Review of Systems Exam Vitals Vital Signs Date Temp Pulse Resp B/P (MAP) Pulse Ox O2 O2 Flow FiO2 Time Delivery Rate 01/27/19 98.5 86 16 95/53 (67) 94 Mechanical 11:40 Ventilator 01/27/19 8.0 35 09:26 Intake and Output 01/26/19 01/26/19 01/27/19 1515:00 23:00 07:00 IntakeIntake Total 900 ml 820 ml OutputOutput Total 1000 ml 1155 ml BalanceBalance -100 ml -335 ml Results Result Diagram: 01/25/19 0529 01/25/19 0529 Results 24hrs Laboratory Tests Test 01/26/19 12:19 01/26/19 18:26 01/27/19 00:16 01/27/19 05:23 Bedside Glucose 110 101 110 97 Medications Medication Current Medications Oxycodone/ Acetaminophen (Percocet (5/ 325)) 1 tab Q6H PRN GTB PAIN LEVEL 6-10 Last administered on 01/20/19at 09:05; Admin Dose 1 TAB; Start 01/19/19 at 20:30 Acetaminophen (Tylenol Tab) 650 mg Q6H PRN PEG MILD PAIN(1-3)OR ELEVATED TEMP Last administered on 01/26/19at 06:41; Admin Dose 650 MG; Start 01/19/19 at 20:30 IV Flush (NS 3 ml) 3 ml PER PROTOCOL IV ; Start 01/19/19 at 20:30 Ondansetron HCl (Zofran Inj) 4 mg Q6H PRN IV NAUSEA AND/OR VOMITING; Start 01/20/19 at 02:30 Albuterol (Ventolin Hfa) 4 puff Q2H RESP THERAPY PRN INH SHORTNESS OF BREATH; Start 01/20/19 at 02:30 Ipratropium [place] (Atrovent Hfa) 4 puff Q2H RESP THERAPY PRN INH SHORTNESS OF BREATH; Start 01/20/19 at 02:30 Pantoprazole (Protonix Iv) 40 mg DAILY@06 IV Last administered on 01/27/19at 05:25; Admin Dose 40 MG; Start 01/20/19 at 06:00 Atenolol (Tenormin) 25 mg DAILY PO Last administered on 01/27/19at 09:00; Admin Dose 25 MG; Start 01/20/19 at 09:00 Furosemide (Lasix) 80 mg DAILY@0600 PO Last administered on 01/27/19at 05:25; Admin Dose 80 MG; Start 01/20/19 at 06:00 Miscellaneous Information 1 ea NOTE XX ; Start 01/20/19 at 02:30 Glucose (Glutose) 15 gm Q15M PRN PO DECREASED GLUCOSE; Start 01/20/19 at 02:30 Glucose (Glutose) 22.5 gm Q15M PRN PO DECREASED GLUCOSE; Start 01/20/19 at 02:3 0 Dextrose (D50w Syringe) 25 ml Q15M PRN IV DECREASED GLUCOSE; Start 01/20/19 at 02:30 Dextrose (D50w Syringe) 50 ml Q15M PRN IV DECREASED GLUCOSE; Start 01/20/19 at 02:30 Glucagon (Glucagen) 1 mg Q15M PRN IM DECREASED GLUCOSE; Start 01/20/19 at 02:30 Glucose (Glutose) 15 gm Q15M PRN BUCCAL DECREASED GLUCOSE; Start 01/20/19 at 02:30 Miscellaneous Information (Pending [facility] Order For Wound Care) This patient huff... PRN PRN XX WOUND CARE; Start 01/20/19 at 08:30 Morphine Sulfate (morphine) 1 mg Q2H PRN IV breakthrough pain Last administered on 01/24/19at 23:45; Admin Dose 1 MG; Start 01/20/19 at 12:30 Insulin Aspart (Novolog Insulin Pen) NOVOLOG *MILD* ALGORI... Q6 SC ; Start 01/21/19 at 12:00 Meropenem/Sodium Chloride 50 ml @ 100 mls/hr Q12 IVPB Last administered on 01/27/19at 10:35; Admin Dose 100 MLS/HR; Start 01/21/19 at 21:00 Lorazepam (Ativan) 1 mg Q6H PRN IV AGITATION Last administered on 01/27/19at 00:57; Admin Dose 1 MG; Start 01/21/19 at 18:00 RENAN HERNANDEZ MD Jan 27, 2019 12:01
--- NOTE | 2019-01-27 12:14 | CONS ---
Assessment/Plan Assessment/Plan Hospital Course (Demo Recall) IMPRESSION: 1. Tachycardia, intermittent consistent with sinus tachycardia, likely in the setting of pain and anxiety-improved 2. Hypotension, borderline after given pain meds, ensure good volume status. 3. Abnormal electrocardiogram, right bundle branch block, secondary repolarization abnormalities, assess for heart block, rule out acute coronary syndrome postoperatively. 4. Colon carcinoma, status post resection and now s/p abd CT with questionable liver lesion 5. Anemia. 6. Renal failure, improved currently 7. Altered mental state/encephalopathy. 8. Diabetes mellitus. 9. Leukocytosis. 10. Hypernatremia-resolved 11. Fevers Recc: -Tele -Continue BB as tolerated only -Follow volume status closely on daily lasix -Continue abx's and f/u cx data -Rx fevers -pain control -Ongoing Onc eval Consultation Date/Type/Reason Admit Date/Time Jan 19, 2019 at 10:30 Initial Consult Date 01/20/19 Type of Consult Cardiology Reason for Consultation tachycardia Requesting Provider: GEO DELEON Date/Time of Note DATE: 01/27/19 TIME: 12:12 Exam/Review of Systems Vital Signs Vitals Vital Signs Date Temp Pulse Resp B/P (MAP) Pulse Ox O2 O2 Flow FiO2 Time Delivery Rate 01/27/19 98.5 86 16 95/53 (67) 94 Mechanical 11:40 Ventilator 01/27/19 8.0 35 09:26 Intake and Output 01/26/19 01/26/19 01/27/19 1515:00 23:00 07:00 IntakeIntake Total 900 ml 820 ml OutputOutput Total 1000 ml 1155 ml BalanceBalance -100 ml -335 ml Exam Exam Review of Systems: CONSTITUTIONAL: No fevers, chills. PULMONARY: trached CARDIOVASCULAR: No chest pain/palpitations GASTROINTESTINAL: No nausea/vomiting. GENITOURINARY: No hematuria/dysuria. MUSCULOSKELETAL: No myagias/arthalgias. PSYCHIATRIC: The patient denies depression. NEUROLOGIC: No weakness Constitutional: alert Head: normocephalic ENMT: mucosa pink and moist Neck: supple, jvd Respiratory: diminished breath sounds (at bases/B) Cardiovascular: regular rate and rhythm Gastrointestinal: soft Musculoskeletal: muscle tone (normal) Extremities: edema (`none) Neurological: other (No focal deficits) Labs Result Diagram: 01/25/19 0529 01/25/19 0529 Results 24hrs Laboratory Tests Test 01/26/19 12:19 01/26/19 18:26 01/27/19 00:16 01/27/19 05:23 Bedside Glucose 110 101 110 97 Medications Medications Current Medications Oxycodone/ Acetaminophen (Percocet (5/ 325)) 1 tab Q6H PRN GTB PAIN LEVEL 6-10 Last administered on 01/20/19at 09:05; Admin Dose 1 TAB; Start 01/19/19 at 20:30 Acetaminophen (Tylenol Tab) 650 mg Q6H PRN PEG MILD PAIN(1-3)OR ELEVATED TEMP Last administered on 01/26/19at 06:41; Admin Dose 650 MG; Start 01/19/19 at 20:30 IV Flush (NS 3 ml) 3 ml PER PROTOCOL IV ; Start 01/19/19 at 20:30 Ondansetron HCl (Zofran Inj) 4 mg Q6H PRN IV NAUSEA AND/OR VOMITING; Start 01/20/19 at 02:30 Albuterol (Ventolin Hfa) 4 puff Q2H RESP THERAPY PRN INH SHORTNESS OF BREATH; Start 01/20/19 at 02:30 Ipratropium [place] (Atrovent Hfa) 4 puff Q2H RESP THERAPY PRN INH SHORTNESS OF BREATH; Start 01/20/19 at 02:30 Pantoprazole (Protonix Iv) 40 mg DAILY@06 IV Last administered on 01/27/19at 05:25; Admin Dose 40 MG; Start 01/20/19 at 06:00 Atenolol (Tenormin) 25 mg DAILY PO Last administered on 01/27/19at 09:00; Admin Dose 25 MG; Start 01/20/19 at 09:00 Furosemide (Lasix) 80 mg DAILY@0600 PO Last administered on 01/27/19at 05:25; Admin Dose 80 MG; Start 01/20/19 at 06:00 Miscellaneous Information 1 ea NOTE XX ; Start 01/20/19 at 02:30 Glucose (Glutose) 15 gm Q15M PRN PO DECREASED GLUCOSE; Start 01/20/19 at 02:30 Glucose (Glutose) 22.5 gm Q15M PRN PO DECREASED GLUCOSE; Start 01/20/19 at 02:30 Dextrose (D50w Syringe) 25 ml Q15M PRN IV DECREASED GLUCOSE; Start 01/20/19 at 02:30 Dextrose (D50w Syringe) 50 ml Q15M PRN IV DECREASED GLUCOSE; Start 01/20/19 at 02:30 Glucagon (Glucagen) 1 mg Q15M PRN IM DECREASED GLUCOSE; Start 01/20/19 at 02:30 Glucose (Glutose) 15 gm Q15M PRN BUCCAL DECREASED GLUCOSE; Start 01/20/19 at 02:30 Miscellaneous Information (Pending Santyl Order For Wound Care) This patient huff... PRN PRN XX WOUND CARE; Start 01/20/19 at 08:30 Morphine Sulfate (morphine) 1 mg Q2H PRN IV breakthrough pain Last administered on 01/24/19at 23:45; Admin Dose 1 MG; Start 01/20/19 at 12:30 Insulin Aspart (Novolog Insulin Pen) NOVOLOG *MILD* ALGORI... Q6 SC ; Start 01/21/19 at 12:00 Meropenem/Sodium Chloride 50 ml @ 100 mls/hr Q12 IVPB Last administered on 01/27/19at 10:35; Admin Dose 100 MLS/HR; Start 01/21/19 at 21:00 Lorazepam (Ativan) 1 mg Q6H PRN IV AGITATION Last administered on 01/27/19at 00:57; Admin Dose 1 MG; Start 01/21/19 at 18:00 TWAN ESTEVEZ Jan 27, 2019 12:14
--- NOTE | 2019-01-27 14:40 | PN ---
Date/Time of Note Date/Time of Note DATE: 01/27/19 TIME: 14:32 Assessment/Plan VTE Prophylaxis Risk score (from Ns)>0 risk: 17 SCD applied (from [facility] [place] Yes Pharmacological prophylaxis: heparin Lines/Catheters IV Catheter Type (from [facility]): [place] Urinary Cath still in place: No Assessment/Plan Hospital Course 78-year-old male who presented with anemia of anasarca, found to have severe anemia. Workup revealed colon cancer. Progressed to prolonged respiratory failure from pneumonia which required tracheostomy. Went to [place] for optimization. 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: - Now status post laparoscopic converted to open resection with end colostomy -Management per surgery and oncology Chronic respiratory failure: - s/p trach, wean as tolerated Atrial fibrillation: - Continue atenolol, rate controlled - hold off on AC given bleeding Acute kidney injury: - Resolved UTI -Urine culture is growing Klebsiella pneumonia ESBL -Continue meropenem -UA is positive Dysphagia: Status post G-tube Prophylaxis: SCDs DC planning: Anticipate DC back to [place] this coming week, follow-up on surgery recommendations for DC planning Result Diagram: 01/25/1929 01/25/19528 Results 24hrs Laboratory Tests Test 01/26/19 18:26 01/26/19 22:00 01/27/19 00:16 01/27/19 05:23 Bedside Glucose 101 110 97 Urine Color YELLOW Urine Clarity SLIGHTLY CLOUDY A Urine pH 5.0 Urine Specific 1.041 H [place] Urine Ketones NEGATIVE Urine Nitrite NEGATIVE Urine Bilirubin NEGATIVE Urine Urobilinogen NEGATIVE Urine Leukocyte 1+ H Esterase Urine Microscopic 2 RBC Urine Microscopic 41 H WBC Urine Bacteria FEW A Urine Hemoglobin 1+ H Urine Glucose NEGATIVE Urine Total 1+ H Protein Test 01/27/19 12:30 Bedside Glucose 113 Subjective 24 Hr Interval Summary Free Text/Dictation No fever x 24 hours Spoke at length with son at bedside. Aware of clinical condition Exam/Review of Systems Exam Vitals Vital Signs Date Temp Pulse Resp B/P (MAP) Pulse Ox O2 O2 Flow FiO2 Time Delivery Rate 01/27/19 98.5 86 16 95/53 (67) 94 Mechanical 11:40 Ventilator 01/27/19 8.0 35 09:26 Intake and Output 01/26/19 01/26/19 01/27/19 1515:00 23:00 07:00 IntakeIntake Total 900 ml 820 ml OutputOutput Total 1000 ml 1155 ml BalanceBalance -100 ml -335 ml Exam Alert, interactive Trach collar Drains in abdomen, ostomy with liquid stool Breathin comfortably RRR No edema Results Results 24hrs Laboratory Tests Test 01/26/19 18:26 01/26/19 22:00 01/27/19 00:16 01/27/19 05:23 Bedside Glucose 101 110 97 Urine Color YELLOW Urine Clarity SLIGHTLY CLOUDY A Urine pH 5.0 Urine Specific 1.041 H [place] Urine Ketones NEGATIVE Urine Nitrite NEGATIVE Urine Bilirubin NEGATIVE Urine Urobilinogen NEGATIVE Urine Leukocyte 1+ H Esterase Urine Microscopic 2 RBC Urine Microscopic 41 H WBC Urine Bacteria FEW A Urine Hemoglobin 1+ H Urine Glucose NEGATIVE Urine Total 1+ H Protein Test 01/27/19 12:30 Bedside Glucose 113 Medications Medication Current Medications Oxycodone/ Acetaminophen (Percocet (5/ 325)) 1 tab Q6H PRN GTB PAIN LEVEL 6-10 Last administered on 01/20/19at 09:05; Admin Dose 1 TAB; Start 01/19/19 at 20:30 Acetaminophen (Tylenol Tab) 650 mg Q6H PRN PEG MILD PAIN(1-3)OR ELEVATED TEMP Last administered on 01/26/19at 06:41; Admin Dose 650 MG; Start 01/19/19 at 20:30 IV Flush (NS 3 ml) 3 ml PER PROTOCOL IV ; Start 01/19/19 at 20:30 Ondansetron HCl (Zofran Inj) 4 mg Q6H PRN IV NAUSEA AND/OR VOMITING; Start 01/20/19 at 02:30 Albuterol (Ventolin Hfa) 4 puff Q2H RESP THERAPY PRN INH SHORTNESS OF BREATH; Start 01/20/19 at 02:30 Ipratropium [place] (Atrovent Hfa) 4 puff Q2H RESP THERAPY PRN INH SHORTNESS OF BREATH; Start 01/20/19 at 02:30 Pantoprazole (Protonix Iv) 40 mg DAILY@06 IV Last administered on 01/27/19at 05:25; Admin Dose 40 MG; Start 01/20/19 at 06:00 Atenolol (Tenormin) 25 mg DAILY PO Last administered on 01/27/19at 09:00; Admin Dose 25 MG; Start 01/20/19 at 09:00 Furosemide (Lasix) 80 mg DAILY@0600 PO Last administered on 01/27/19at 05:25; Admin Dose 80 MG; Start 01/20/19 at 06:00 Miscellaneous Information 1 ea NOTE XX ; Start 01/20/19 at 02:30 Glucose (Glutose) 15 gm Q15M PRN PO DECREASED GLUCOSE; Start 01/20/19 at 02:30 Glucose (Glutose) 22.5 gm Q15M PRN PO DECREASED GLUCOSE; Start 01/20/19 at 02:30 Dextrose (D50w Syringe) 25 ml Q15M PRN IV DECREASED GLUCOSE; Start 01/20/19 at 02:30 Dextrose (D50w Syringe) 50 ml Q15M PRN IV DECREASED GLUCOSE; Start 01/20/19 at 02:30 Glucagon (Glucagen) 1 mg Q15M PRN IM DECREASED GLUCOSE; Start 01/20/19 at 02:30 Glucose (Glutose) 15 gm Q15M PRN BUCCAL DECREASED GLUCOSE; Start 01/20/19 at 02:30 Miscellaneous Information (Pending Santyl Order For Wound Care) This patient huff... PRN PRN XX WOUND CARE; Start 01/20/19 at 08:30 Morphine Sulfate (morphine) 1 mg Q2H PRN IV breakthrough pain Last administered on 01/24/19at 23:45; Admin Dose 1 MG; Start 01/20/19 at 12:30 Insulin Aspart (Novolog Insulin Pen) NOVOLOG *MILD* ALGORI... Q6 SC ; Start 01/21/19 at 12:00 Meropenem/Sodium Chloride 50 ml @ 100 mls/hr Q12 IVPB Last administered on 01/27/19at 10:35; Admin Dose 100 MLS/HR; Start 01/21/19 at 21:00 Lorazepam (Ativan) 1 mg Q6H PRN IV AGITATION Last administered on 01/27/19at 00:57; Admin Dose 1 MG; Start 01/21/19 at 18:00 ABBY LA MD Jan 27, 2019 14:40
--- NOTE | 2019-01-27 15:52 | CONS ---
DATE OF ADMISSION: 01/19/2019 DATE OF CONSULTATION: 01/27/2019 TYPE OF CONSULTATION: Infectious disease. REQUESTING PHYSICIAN: Sasha Sparks NP and Nimo Rose MD Thank you for this consultation. 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 The patient had been stable postoperatively. He received a dose of Flagyl on 01/19/2019 with Ancef. He continued on Flagyl for another 24 hours. His vital signs had been stable except that he started to spike fevers started on 01/25/2019. The fever was as high as 101.3. His white blood cell count had been stable with WBC yesterday of 8, H and H of 8.9 and 28.5, platelets 276, no shift, no bands. BUN is 25, creatinine 1.5. MICROBIOLOGY: Urine culture on admission on 01/19/2019 grew Klebsiella pneumoniae, ESBL. MRSA swab was negative. DIAGNOSTICS: The patient had a CT of chest, abdomen and pelvis yesterday that revealed postsurgical changes of sigmoid resection with left lower quadrant diverting colostomy and Dorina pouch formatio n, small amount of fluid in mid lower abdominal wall may represent a seroma/hematoma. Small loculate d fluid collection in the mid pelvis may represent an abscess. Mildly enlarged mid pelvic lymph node s increasing in size. Metastatic disease is not excluded. Thick-walled urinary bladder. I recommen d correlation with urinalysis to exclude cystitis. Mild prostatomegaly with eccentric defect suggest martell of prior TURP procedure. Nodular appearance of the left base of the prostate gland, prostate mas s cannot be excluded based on this examination and correlation with PSA is recommended. Questionable small hypodense liver lesion could be further evaluated with multiphase MRI or CT. Trace bilateral pleural effusion and associated atelectasis, decreased; cholelithiasis without CT evidence of acute c holecystitis and mild splenomegaly. The patient had a urinalysis yesterday that revealed positive leukocyte esterase, WBC and few bacteri a. He was started on meropenem on 01/21/2019 and continued to be on meropenem. PAST MEDICAL HISTORY: As per history of present illness. The patient has a PSA , colon carcino ma status post resection, encephalopathy, diabetes, anemia, history of TURP. VITAL SIGNS: Today, temperature 98.5, pulse 86, respirations 16, blood pressure 95/53, saturation 94 on vent. LABORATORY DATA: WBC today 8 with H and H of 8.9 and 28.5, platelets 276. INDWELLINGS: The patient has trach, PEG, right abdominal ELIUD, left-sided colostomy, right upper extre mity PICC line. PHYSICAL EXAMINATION: GENERAL: This is a well-developed, chronically ill-appearing, elderly man who is noncommunicative, l ooks comfortable. The patient is in no distress. HEENT: Head is atraumatic, normocephalic. Sclerae are anicteric. Buccal mucosa is dry. NECK: Supple. CHEST: Rise symmetrical. Breath sounds diminished to bases. HEART: S1, S2. ABDOMEN: Soft. Bowel tones are present. EXTREMITIES: Without cyanosis. DIAGNOSTIC IMPRESSION: This is a 78-year-old man with multiple medical problems who underwent laparo scopic converted to open resection with end colostomy, also laparoscopic appendectomy. The patient i s also with Klebsiella pneumoniae, extended-spectrum beta-lactamase urinary tract infection on admiss ion with positive urinalysis that is concerning for recurrent urinary tract infection. He has a hist ory of TURP and possible retention. The patient is spiking fevers and had been on meropenem. Today is day #7. CT of the abdomen and pelvis and chest revealed possible abscess in his pelvis, also ques tionable metastatic disease and possible cystitis. The patient is currently on meropenem and is afeb rile; however was slightly tachycardic earlier. We will repeat urine culture and order blood culture s. We will continue him on meropenem for now. We will discuss with surgery if pelvic abscess can be IR drained. If he spikes fever, we will start him on vancomycin. Further recommendations per maribel nt's clinical course, cultures and diagnostics. I discussed with Dr. Orlando Ludwig. Dictated By: GEENA KENDALL RN CHILD for ORLANDO HICKEY/JOANN Conf#: [id number] [facility]#: [id number] CC: AJ PIERRE MD; ABBY AL MD; NIMO ROSE MD;*[facility]*
[2019-01-27] MEDS ORDERED: NAPHAZOLINE 0.012% 15 ML OPH BOTH EYES PRN (21:00)
[2019-01-28] VITALS (29 sets, daily range): BP systolic 98–146; BP diastolic 54–81; PULSE 81–101; RESP 16–28
[2019-01-28] MEDS: LORAZEPAM 2 MG INJ IV PRN (01:41)
[2019-01-28] MEDS: PANTOPRAZOLE (EC) 40 MG TAB PO SCH (05:35)
[2019-01-28] MEDS: FUROSEMIDE 40 MG TAB PO SCH (05:35)
--- NOTE | 2019-01-28 07:24 | CONS ---
Assessment/Plan Assessment/Plan Assessment/Plan (Daily) 1. Acute kidney injury on CKD III due to ATN and prerenal azotemia 2. 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 acute on chronic respiratory failure s/p tracheostomy 4. Atrial fibrillation:rate controlled 5. H/o Diabetes melitus 6. H/O HTN 7. Dysphagia: Status post G-tube 8. UTI with Urine Cx growing Klebsiella ESBL Plan: Lasix 80mg po daily, BUN/Cr 34/1.7- if continues to rise then we will decrease lasix to 20mg PO BID IV abx meropenem for ESBL Klebsiella UTI Renally dose all abx, monitor electrolytes General surgery following will follow up Consultation Date/Type/Reason Admit Date/Time Jan 19, 2019 at 10:30 Initial Consult Date 01/21/19 Type of Consult NEPHROLOGY Requesting Provider: GEO DELEON Date/Time of Note DATE: 01/28/19 TIME: 07:24 Exam/Review of Systems Exam Vitals Vital Signs Date Temp Pulse Resp B/P (MAP) Pulse Ox O2 O2 Flow FiO2 Time Delivery Rate 01/28/19 101 24 137/76 100 Mechanical 06:00 (96) Ventilator 01/28/19 30 05:11 01/28/19 98.2 04:00 01/27/19 8.0 19:38 Intake and Output 01/27/19 01/27/19 01/28/19 1515:00 23:00 07:00 IntakeIntake Total 870 ml 870 ml OutputOutput Total 900 ml 406 ml BalanceBalance -30 ml 464 ml Exam Constitutional: alert, other (oriented x 2 ), + tracheostomy in place Respiratory: congested cough, crackles/rales, diminished breath sounds Cardiovascular: regular rate and rhythm, nl pulses Gastrointestinal: soft, other (abdominal dressing + ) Musculoskeletal: nl extremities to inspection Extremities: normal pulses Neurological: alert, awake, no focal deficits Skin: nl turgor Results Result Diagram: 01/28/19 0606 01/25/19 0529 Results 24hrs Laboratory Tests Test 01/27/19 12:30 01/28/19 06:06 Bedside Glucose 113 White Blood Count 9.3 Red Blood Count 3.67 L Hemoglobin 10.0 L Hematocrit 32.2 L Mean Corpuscular Volume 87.7 Mean Corpuscular Hemoglobin 27.2 L Mean Corpuscular Hemoglobin Concent 31.1 L Red Cell Distribution Width 15.2 H Platelet Count 405 # Mean Platelet Volume 11.9 H Immature Granulocytes % 0.300 Neutrophils % 66.4 Lymphocytes % 20.0 Monocytes % 8.7 Eosinophils % 4.1 Basophils % 0.5 Nucleated Red Blood Cells % 0.0 Immature Granulocytes # 0.030 Neutrophils # 6.2 Lymphocytes # 1.9 Monocytes # 0.8 Eosinophils # 0.4 Basophils # 0.1 Nucleated Red Blood Cells # 0.0 Medications Medication Current Medications Oxycodone/ Acetaminophen (Percocet (5/ 325)) 1 tab Q6H PRN GTB PAIN LEVEL 6-10 Last administered on 01/20/19at 09:05; Admin Dose 1 TAB; Start 01/19/19 at 20:30 Acetaminophen (Tylenol Tab) 650 mg Q6H PRN PEG MILD PAIN(1-3)OR ELEVATED TEMP Last administered on 01/26/19at 06:41; Admin Dose 650 MG; Start 01/19/19 at 20:30 IV Flush (NS 3 ml) 3 ml PER PROTOCOL IV ; Start 01/19/19 at 20:30 Ondansetron HCl (Zofran Inj) 4 mg Q6H PRN IV NAUSEA AND/OR VOMITING; Start 01/20/19 at 02:30 Albuterol (Ventolin Hfa) 4 puff Q2H RESP THERAPY PRN INH SHORTNESS OF BREATH; Start 01/20/19 at 02:30 Ipratropium [place] (Atrovent Hfa) 4 puff Q2H RESP THERAPY PRN INH SHORTNESS OF BREATH; Start 01/20/19 at 02:30 Atenolol (Tenormin) 25 mg DAILY PO Last administered on 01/27/19at 09:00; Admin Dose 25 MG; Start 01/20/19 at 09:00 Furosemide (Lasix) 80 mg DAILY@0600 PO Last administered on 01/28/19at 05:35; Admin Dose 80 MG; Start 01/20/19 at 06:00 Miscellaneous Information 1 ea NOTE XX ; Start 01/20/19 at 02:30 Miscellaneous Information (Pending [facility] Order For Wound Care) This patient huff... PRN PRN XX WOUND CARE; Start 01/20/19 at 08:30 Morphine Sulfate (morphine) 1 mg Q2H PRN IV breakthrough pain Last administered on 01/24/19 23:45; Admin Dose 1 MG; Start 01/20/19 at 12:30 Meropenem/Sodium Chloride 50 ml @ 100 mls/hr Q12 IVPB Last administered on 01/27/19 20:48; Admin Dose 100 MLS/HR; Start 01/21/19 at 21:00 Lorazepam (Ativan) 1 mg Q6H PRN IV AGITATION Last administered on 01/28/19at 01:41; Admin Dose 1 MG; Start 01/21/19 at 18:00 Pantoprazole (Protonix Tab) 40 mg DAILY@06 PO Last administered on 01/28/19 05:35; Admin Dose 40 MG; Start 01/28/19 at 06:00 Naphazoline HCl (Clear Eyes / Naphcon) 2 drop Q4H PRN BOTH EYES EYE IRRITATION; Start 01/27/19 at 21:00 RENAN HERNANDEZ MD Jan 28, 2019 07:24
--- NOTE | 2019-01-28 07:44 | CONS ---
Assessment/Plan Assessment/Plan Assessment/Plan (Daily) Assessment and recommendations; 1. Patient admitted for elective sigmoid resection due to history of recently diagnosed adenocarcinoma. 2. Chronic respiratory failure, patient now weaned down to T-piece with stable clinical status. 3. History of recent severe bilateral pneumonia. 4. 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 5. Possibly superimposed mild CHF. 6. Left lung pneumonia UTI. Currently on appropriate antimicrobial regimen. Urine analysis from 6 of this month showing persistent UTI. Possibly colonization. 7. Stable hypertension. Continue current supportive care. Consider discharge to rehab center. Consultation Date/Type/Reason Admit Date/Time Jan 19, 2019 at 10:30 Initial Consult Date 01/21/19 Type of Consult Pulmonary Patient's condition is stable. Has remained hemodynamically stable. General exam; elderly male, on ventilator via tracheostomy, currently no distress. Requesting Provider: GEO DELEON Date/Time of Note DATE: 01/28/19 TIME: 07:42 24 HR Interval Summary Free Text/Dictation Patient's condition is stable. Remains awake and alert. Patient has remained hemodynamically stable and also exhibiting stable pulmonary status on T-piece. General exam; elderly male, awake alert, currently no distress. Exam/Review of Systems Exam Vitals Vital Signs Date Temp Pulse Resp B/P (MAP) Pulse Ox O2 O2 Flow FiO2 Time Delivery Rate 01/28/19 101 24 137/76 100 Mechanical 06:00 (96) Ventilator 01/28/19 30 05:11 01/28/19 98.2 04:00 01/27/19 8.0 19:38 Intake and Output 01/27/19 01/27/19 01/28/19 1515:00 23:00 07:00 IntakeIntake Total 870 ml 870 ml OutputOutput Total 900 ml 406 ml BalanceBalance -30 ml 464 ml Exam H EENT exam; supple neck, no JVD. No lymphadenopathy. Midline trachea. No thyromegaly. Tracheostomy in place. Patient has fair dentition. No neck masses. Chest exam; diminished but clear breath sounds. S1-S2 audible, no murmurs. Regular rhythm. Abdomen exam; soft, midline dressing in place. Nontender. Nondistended. G-tube in place. Colostomy in place. Bowel sounds audible. Extremity exam; peripheral edema clubbing. PICKLE PUMPER exam; no focal deficit. Results Result Diagram: 01/28/19 0606 01/28/19 0606 Results 24hrs Laboratory Tests Test 01/27/19 12:30 01/28/19 06:06 Bedside Glucose 113 White Blood Count 9.3 Red Blood Count 3.67 L Hemoglobin 10.0 L Hematocrit 32.2 L Mean Corpuscular Volume 87.7 Mean Corpuscular Hemoglobin 27.2 L Mean Corpuscular Hemoglobin Concent 31.1 L Red Cell Distribution Width 15.2 H Platelet Count 405 # Mean Platelet Volume 11.9 H Immature Granulocytes % 0.300 Neutrophils % 66.4 Lymphocytes % 20.0 Monocytes % 8.7 Eosinophils % 4.1 Basophils % 0.5 Nucleated Red Blood Cells % 0.0 Immature Granulocytes # 0.030 Neutrophils # 6.2 Lymphocytes # 1.9 Monocytes # 0.8 Eosinophils # 0.4 Basophils # 0.1 Nucleated Red Blood Cells # 0.0 Sodium Level 140 Potassium Level 4.4 Chloride Level 100 Carbon Dioxide Level 29 Anion Gap 11 Blood Urea Nitrogen 34 H Creatinine 1.72 H Est Glomerular Filtrat Rate mL/min Glucose Level 110 Calcium Level 8.8 Total Bilirubin 0.2 Direct Bilirubin 0.00 Indirect Bilirubin 0.2 Aspartate Amino Transf (AST/SGOT) 19 Alanine Aminotransferase (ALT/SGPT) 7 L Alkaline Phosphatase 105 Total Protein 7.7 Albumin 3.3 Globulin 4.40 H Albumin/Globulin Ratio 0.75 Medications Medication Current Medications Oxycodone/ Acetaminophen (Percocet (5/ 325)) 1 tab Q6H PRN GTB PAIN LEVEL 6-10 Last administered on 01/20/19at 09:05; Admin Dose 1 TAB; Start 01/19/19 at 20:30 Acetaminophen (Tylenol Tab) 650 mg Q6H PRN PEG MILD PAIN(1-3)OR ELEVATED TEMP Last administered on 01/26/19at 06:41; Admin Dose 650 MG; Start 01/19/19 at 20:30 IV Flush (NS 3 ml) 3 ml PER PROTOCOL IV ; Start 01/19/19 at 20:30 Ondansetron HCl (Zofran Inj) 4 mg Q6H PRN IV NAUSEA AND/OR VOMITING; Start 01/20/19 at 02:30 Albuterol (Ventolin Hfa) 4 puff Q2H RESP THERAPY PRN INH SHORTNESS OF BREATH; Start 01/20/19 at 02:30 Ipratropium [place] (Atrovent Hfa) 4 puff Q2H RESP THERAPY PRN INH SHORTNESS OF BREATH; Start 01/20/19 at 02:30 Atenolol (Tenormin) 25 mg DAILY PO Last administered on 01/27/19 09:00; Admin Dose 25 MG; Start 01/20/19 at 09:00 Furosemide (Lasix) 80 mg DAILY@0600 PO Last administered on 01/28/19 05:35; Admin Dose 80 MG; Start 01/20/19 at 06:00 Miscellaneous Information 1 ea NOTE XX ; Start 01/20/19 at 02:30 Miscellaneous Information (Pending [facility] Order For Wound Care) This patient huff... PRN PRN XX WOUND CARE; Start 01/20/19 at 08:30 Morphine Sulfate (morphine) 1 mg Q2H PRN IV breakthrough pain Last administered on 01/24/19 23:45; Admin Dose 1 MG; Start 01/20/19 at 12:30 Meropenem/Sodium Chloride 50 ml @ 100 mls/hr Q12 IVPB Last administered on 01/27/19 20:48; Admin Dose 100 MLS/HR; Start 01/21/19 at 21:00 Lorazepam (Ativan) 1 mg Q6H PRN IV AGITATION Last administered on 01/28/19 01:41; Admin Dose 1 MG; Start 01/21/19 at 18:00 Pantoprazole (Protonix Tab) 40 mg DAILY@06 PO Last administered on 01/28/19 05:35; Admin Dose 40 MG; Start 01/28/19 at 06:00 Naphazoline HCl (Clear Eyes / Naphcon) 2 drop Q4H PRN BOTH EYES EYE IRRITATION; Start 01/27/19 at 21:00 OK SOOD Jan 28, 2019 07:44
[2019-01-28] MEDS: MEROPENEM 1 GM/50ML(PMX) 50 ML IVPB SCH ×2 (08:34→21:39)
[2019-01-28] MEDS: ATENOLOL 50 MG TAB PO SCH (08:34)
--- NOTE | 2019-01-28 12:20 | CONS ---
Assessment/Plan Assessment/Plan Hospital Course (Demo Recall) IMPRESSION: 1. Tachycardia, intermittent consistent with sinus tachycardia, likely in the setting of pain and anxiety-improved 2. Hypotension, borderline after given pain meds, ensure good volume status. 3. Abnormal electrocardiogram, right bundle branch block, secondary repolarization abnormalities, assess for heart block, rule out acute coronary syndrome postoperatively. 4. Colon carcinoma, status post resection and now s/p abd CT with questionable liver lesion 5. Anemia. 6. Renal failure- today by labs with onset ARF 7. Altered mental state/encephalopathy. 8. Diabetes mellitus. 9. Leukocytosis. 10. Hypernatremia-resolved 11. Fevers Recc: -Tele -Continue BB as tolerated only -Follow volume status and creatnine closely on daily lasix -Continue abx's and f/u cx data -Rx fevers -pain control -Ongoing Onc eval -Ongoing renal f/u Consultation Date/Type/Reason Admit Date/Time Jan 19, 2019 at 10:30 Initial Consult Date 01/20/19 Type of Consult Cardiology Reason for Consultation [email or web address] Requesting Provider: GEO DELEON Date/Time of Note DATE: 01/28/19 TIME: 12:17 Exam/Review of Systems Vital Signs Vitals Vital Signs Date Temp Pulse Resp B/P (MAP) Pulse Ox O2 O2 Flow FiO2 Time Delivery Rate 01/28/19 98.1 90 16 108/57 100 Mechanical 11:40 (74) Ventilator 01/28/19 40 11:35 01/28/19 8.0 11:09 Intake and Output 01/27/19 01/27/19 01/28/19 1515:00 23:00 07:00 IntakeIntake Total 870 ml 870 ml OutputOutput Total 900 ml 406 ml BalanceBalance -30 ml 464 ml Exam Exam Review of Systems: CONSTITUTIONAL: No fevers, chills. PULMONARY:trached CARDIOVASCULAR: No chest pain/palpitations GASTROINTESTINAL: No nausea/vomiting. GENITOURINARY: No hematuria/dysuria. MUSCULOSKELETAL: No myagias/arthalgias. PSYCHIATRIC: The patient denies depression. NEUROLOGIC: No weakness Constitutional: alert Psych: no complaints Head: normocephalic ENMT: mucosa pink and moist Neck: supple, jvd (9 cm water) Respiratory: other (upper airway rhoncherous sounds) Cardiovascular: regular rate and rhythm Gastrointestinal: soft Musculoskeletal: muscle weakness (generalized) Extremities: edema (trace/B) Neurological: other (No focal deficits) Labs Result Diagram: 01/28/1960501/28/19 06 Results 24hrs Laboratory Tests Test 01/27/19 12:30 01/28/19 06:06 Bedside Glucose 113 White Blood Count 9.3 Red Blood Count 3.67 L Hemoglobin 10.0 L Hematocrit 32.2 L Mean Corpuscular Volume 87.7 Mean Corpuscular Hemoglobin 27.2 L Mean Corpuscular Hemoglobin Concent 31.1 L Red Cell Distribution Width 15.2 H Platelet Count 405 # Mean Platelet Volume 11.9 H Immature Granulocytes % 0.300 Neutrophils % 66.4 Lymphocytes % 20.0 Monocytes % 8.7 Eosinophils % 4.1 Basophils % 0.5 Nucleated Red Blood Cells % 0.0 Immature Granulocytes # 0.030 Neutrophils # 6.2 Lymphocytes # 1.9 Monocytes # 0.8 Eosinophils # 0.4 Basophils # 0.1 Nucleated Red Blood Cells # 0.0 Prothrombin Time 15.0 H Prothrombin Time Ratio 1.2 INR International Normalized Ratio 1.17 Activated Partial Thromboplast Time 36.8 H Sodium Level 140 Potassium Level 4.4 Chloride Level 100 Carbon Dioxide Level 29 Anion Gap 11 Blood Urea Nitrogen 34 H Creatinine 1.72 H Est Glomerular Filtrat Rate mL/min Glucose Level 110 Calcium Level 8.8 Magnesium Level 1.2 L Total Bilirubin 0.2 Direct Bilirubin 0.00 Indirect Bilirubin 0.2 Aspartate Amino Transf (AST/SGOT) 19 Alanine Aminotransferase (ALT/SGPT) 7 L Alkaline Phosphatase 105 Total Protein 7.7 Albumin 3.3 Globulin 4.40 H Albumin/Globulin Ratio 0.75 Medications Medications Current Medications Oxycodone/ Acetaminophen (Percocet (5/ 325)) 1 tab Q6H PRN GTB PAIN LEVEL 6-10 Last administered on 01/20/19at 09:05; Admin Dose 1 TAB; Start 01/19/19 at 20:30 Acetaminophen (Tylenol Tab) 650 mg Q6H PRN PEG MILD PAIN(1-3)OR ELEVATED TEMP Last administered on 01/26/19at 06:41; Admin Dose 650 MG; Start 01/19/19 at 20:30 IV Flush (NS 3 ml) 3 ml PER PROTOCOL IV ; Start 01/19/19 at 20:30 Ondansetron HCl (Zofran Inj) 4 mg Q6H PRN IV NAUSEA AND/OR VOMITING; Start 01/20/19 at 02:30 Albuterol (Ventolin Hfa) 4 puff Q2H RESP THERAPY PRN INH SHORTNESS OF BREATH; Start 01/20/19 at 02:30 Ipratropium [place] (Atrovent Hfa) 4 puff Q2H RESP THERAPY PRN INH SHORTNESS OF BREATH; Start 01/20/19 at 02:30 Atenolol (Tenormin) 25 mg DAILY PO Last administered on 01/28/19 08:34; Admin Dose 25 MG; Start 01/20/19 at 09:00 Furosemide (Lasix) 80 mg DAILY@0600 PO Last administered on 01/28/19 05:35; Admin Dose 80 MG; Start 01/20/19 at 06:00 Miscellaneous Information 1 ea NOTE XX ; Start 01/20/19 at 02:30 Miscellaneous Information (Pending [facility] Order For Wound Care) This patient huff... PRN PRN XX WOUND CARE; Start 01/20/19 at 08:30 Morphine Sulfate (morphine) 1 mg Q2H PRN IV breakthrough pain Last administered on 01/24/19 23:45; Admin Dose 1 MG; Start 01/20/19 at 12:30 Meropenem/Sodium Chloride 50 ml @ 100 mls/hr Q12 IVPB Last administered on 01/28/19 08:34; Admin Dose 100 MLS/HR; Start 01/21/19 at 21:00 Lorazepam (Ativan) 1 mg Q6H PRN IV AGITATION Last administered on 01/28/19 01:41; Admin Dose 1 MG; Start 01/21/19 at 18:00 Pantoprazole (Protonix Tab) 40 mg DAILY@06 PO Last administered on 01/28/19 05:35; Admin Dose 40 MG; Start 01/28/19 at 06:00 Naphazoline HCl (Clear Eyes / Naphcon) 2 drop Q4H PRN BOTH EYES EYE IRRITATION Last administered on 01/28/19 08:35; Admin Dose 2 DROP; Start 01/27/19 at 21:00 TWAN ESTEVEZ Jan 28, 2019 12:20
--- NOTE | 2019-01-28 13:05 | PN ---
Date/Time of Note Date/Time of Note DATE: 01/28/19 TIME: 12:59 Assessment/Plan Lines/Catheters IV Catheter Type (from Nrs): Saline Lock Ballard in Place (from Nrs): No Assessment/Plan Chief Complaint/Hosp Course 1. Sigmoid/rectal adenocarcinoma with obstruction, status post stent and significant adhesions, colorectal bleed with anemia: Status post laparoscopic co nverted to open low anterior resection with end colostomy and laparoscopic appendectomy 01/19/19; CT noted: Possible abscess> discussed with IR who recommends medical mgt (abx tx), no drainage Path: Moderately differentiated adenocarcinoma with ulceration and marked luminal stenosis involving upper rectum, invades muscularis propria into pericolorectal tissue, focally involving mesenteric margin and colonic serosa. -- Metastatic adenocarcinoma with extranodal extension involving twelve (12) of nineteen (19) mesenteric lymph nodes, associated with tumor deposits. -Antibiotics per ID -continue tube feeds titrate to goal, monitor bowel function -ambulate as able -ice pack to abdominal wall -continue Drain -Pain management -Close monitoring -oncology f/u 2. Fever: resolved -As above -close monitoring 3. UTI : Possible cystitis per recent CT -Urology follow-up -frequent bladder emptying/cath care 4. Hypochromic anemia: Some blood noted in ostomy bag; drop in H&H: Status post PRBC transfusion -Monitor for now and transfuse as needed 5. VDRF: Mild bibasilar atelectasis versus airspace disease -Pulmonary toilet 6. Dysphagia status post PEG tube -tube feed as tolerated 7. SIMI: -Limit nephrotoxic meds -Renally dose meds -Judicious fluids Thank you. Patient seen and examined in collaboration with Dr. Srini Rose. Subjective 24 Hr Interval Summary + bowel function per ostomy. No fevers, chills, sob, congested cough, cp, palpitations, huff, dizziness, n/v/d/dysuria. Tolerating tf. Exam/Review of Systems Vital Signs Vitals Vital Signs Date Temp Pulse Resp B/P (MAP) Pulse Ox O2 O2 Flow FiO2 Time Delivery Rate 01/28/19 95 16 98 30 12:56 01/28/19 98.1 105/57 Mechanical 12:10 (73) Ventilator 01/28/19 8.0 11:09 Intake and Output 01/27/19 01/27/19 01/28/19 1515:00 23:00 07:00 IntakeIntake Total 870 ml 870 ml OutputOutput Total 900 ml 406 ml BalanceBalance -30 ml 464 ml Exam Free Text/Dictation Constitutional: alert; follows simple commands Psych: confusion Head: normocephalic, atraumatic Eyes: nl conjunctiva, nl lids, nl sclera ENMT: nl external ears & nose, mucosa pink and moist; No nl lips & teeth (Edentulous-bottom) Neck: supple, non-tender, other (Tracheostomy) Respiratory: normal air movement; No congested cough, No labored breathing Cardiovascular: regular rate and rhythm (Sinus rhythm); No edema Gastrointestinal: soft, distended (Minimal), other (Incision sites: (Midline: Staple line clean, no cristina-incisional erythema/drainage); ELIUD drain serosanguineous; colostomy: functional) Genitourinary - Male: nl penis, nl scrotum Musculoskeletal: nl extremities to inspection Extremities: normal pulses, pitting pedal edema Neurological: confused; No nl mental status, No nl speech, No nl strength (Generalized weakness) Skin: No rash or lesions Results Result Diagram: 01/28/1960501/28/19 0606 TRACY FERREIRA NP Jan 28, 2019 13:05
--- NOTE | 2019-01-28 15:24 | CONS ---
Assessment/Plan Assessment/Plan Hospital Course (Demo Recall) No acute events overnight. Patient had been afebrile he is noncommunicative looks comfortable in no distress. WBC 9.3 with platelets 405 no shift no bands BUN 34 creatinine 1.72. Microbiology: Repeat urine culture from 2 days ago negative, urine culture on admission grew Klebsiella ESBL. Blood cultures pending. Abx: Merrem Indwelling: Trach, PEG, abdominal ELIUD, Ballard PHYSICAL EXAMINATION: GENERAL: This is a well-developed, chronically ill-appearing, elderly man who is noncommunicative, looks comfortable. The patient is in no distress. HEENT: Head is atraumatic, normocephalic. Sclerae are anicteric. Buccal mucosa is dry. NECK: Supple. CHEST: Rise symmetrical. Breath sounds diminished to bases. HEART: S1, S2. ABDOMEN: Soft. Bowel tones are present. EXTREMITIES: Without cyanosis. Assessment: 1. Status post fevers 2. Questionable pelvic abscess 3. 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 Status post urinary tract infection 5. Chronic respiratory failure and dysphagia 6. Acute kidney injury Plan: Patient remains stable, he is afebrile, he is being followed by multiple consultants, per surgical note continue medical management with antibiotics. If patient spikes fever we will add vancomycin to the regimen Consultation Date/Type/Reason Admit Date/Time Jan 19, 2019 at 10:30 Initial Consult Date 01/21/19 Type of Consult id Requesting Provider: GEO DELEON Date/Time of Note DATE: 01/28/19 TIME: 15:24 Exam/Review of Systems Exam Vitals Vital Signs Date Temp Pulse Resp B/P (MAP) Pulse Ox O2 O2 Flow FiO2 Time Delivery Rate 01/28/19 92 16 98 30 15:06 01/28/19 98/54 (69) 14:46 01/28/19 98.1 Mechanical 12:10 Ventilator 01/28/19 8.0 11:09 Intake and Output 01/27/19 01/27/19 01/28/19 1414:59 22:59 06:59 IntakeIntake Total 870 ml 870 ml OutputOutput Total 900 ml 406 ml BalanceBalance -30 ml 464 ml Results Result Diagram: 01/28/19 0606 01/28/19 0606 Results 24hrs Laboratory Tests Test 01/28/19 06:06 White Blood Count 9.3 Red Blood Count 3.67 L Hemoglobin 10.0 L Hematocrit 32.2 L Mean Corpuscular Volume 87.7 Mean Corpuscular Hemoglobin 27.2 L Mean Corpuscular Hemoglobin Concent 31.1 L Red Cell Distribution Width 15.2 H Platelet Count 405 # Mean Platelet Volume 11.9 H Immature Granulocytes % 0.300 Neutrophils % 66.4 Lymphocytes % 20.0 Monocytes % 8.7 Eosinophils % 4.1 Basophils % 0.5 Nucleated Red Blood Cells % 0.0 Immature Granulocytes # 0.030 Neutrophils # 6.2 Lymphocytes # 1.9 Monocytes # 0.8 Eosinophils # 0.4 Basophils # 0.1 Nucleated Red Blood Cells # 0.0 Prothrombin Time 15.0 H Prothrombin Time Ratio 1.2 INR International Normalized Ratio 1.17 Activated Partial Thromboplast Time 36.8 H Sodium Level 140 Potassium Level 4.4 Chloride Level 100 Carbon Dioxide Level 29 Anion Gap 11 Blood Urea Nitrogen 34 H Creatinine 1.72 H Est Glomerular Filtrat Rate mL/min Glucose Level 110 Calcium Level 8.8 Magnesium Level 1.2 L Total Bilirubin 0.2 Direct Bilirubin 0.00 Indirect Bilirubin 0.2 Aspartate Amino Transf (AST/SGOT) 19 Alanine Aminotransferase (ALT/SGPT) 7 L Alkaline Phosphatase 105 Total Protein 7.7 Albumin 3.3 Globulin 4.40 H Albumin/Globulin Ratio 0.75 Medications Medication Current Medications Oxycodone/ Acetaminophen (Percocet (5/ 325)) 1 tab Q6H PRN GTB PAIN LEVEL 6-10 Last administered on 01/20/19at 09:05; Admin Dose 1 TAB; Start 01/19/19 at 20:30 Acetaminophen (Tylenol Tab) 650 mg Q6H PRN PEG MILD PAIN(1-3)OR ELEVATED TEMP Last administered on 01/26/19at 06:41; Admin Dose 650 MG; Start 01/19/19 at 20:30 IV Flush (NS 3 ml) 3 ml PER PROTOCOL IV ; Start 01/19/19 at 20:30 Ondansetron HCl (Zofran Inj) 4 mg Q6H PRN IV NAUSEA AND/OR VOMITING; Start 01/20/19 at 02:30 Albuterol (Ventolin Hfa) 4 puff Q2H RESP THERAPY PRN INH SHORTNESS OF BREATH; Start 01/20/19 at 02:30 Ipratropium [place] (Atrovent Hfa) 4 puff Q2H RESP THERAPY PRN INH SHORTNESS OF BREATH; Start 01/20/19 at 02:30 Atenolol (Tenormin) 25 mg DAILY PO Last administered on 01/28/19 08:34; Admin Dose 25 MG; Start 01/20/19 at 09:00 Furosemide (Lasix) 80 mg DAILY@0600 PO Last administered on 01/28/19 05:35; Admin Dose 80 MG; Start 01/20/19 at 06:00 Miscellaneous Information 1 ea NOTE XX ; Start 01/20/19 at 02:30 Miscellaneous Information (Pending [facility] Order For Wound Care) This patient huff... PRN PRN XX WOUND CARE; Start 01/20/19 at 08:30 Morphine Sulfate (morphine) 1 mg Q2H PRN IV breakthrough pain Last administered on 01/24/19 23:45; Admin Dose 1 MG; Start 01/20/19 at 12:30 Meropenem/Sodium Chloride 50 ml @ 100 mls/hr Q12 IVPB Last administered on 01/28/19 08:34; Admin Dose 100 MLS/HR; Start 01/21/19 at 21:00 Lorazepam (Ativan) 1 mg Q6H PRN IV AGITATION Last administered on 01/28/19 01:41; Admin Dose 1 MG; Start 01/21/19 at 18:00 Pantoprazole (Protonix Tab) 40 mg DAILY@06 PO Last administered on 01/28/19 05:35; Admin Dose 40 MG; Start 01/28/19 at 06:00 Naphazoline HCl (Clear Eyes / Naphcon) 2 drop Q4H PRN BOTH EYES EYE IRRITATION Last administered on 01/28/19 08:35; Admin Dose 2 DROP; Start 01/27/19 at 21:00 GEENA KENDALL NP Jan 28, 2019 15:24
--- NOTE | 2019-01-28 16:08 | PN ---
Date/Time of Note Date/Time of Note DATE: 01/28/19 TIME: 16:02 Assessment/Plan VTE Prophylaxis Risk score (from [facility])>0 risk: 18 SCD applied (from [facility] [place]): Yes Pharmacological prophylaxis: heparin Lines/Catheters IV Catheter Type (from [facility] [place] Urinary Cath still in place: No Assessment/Plan Hospital Course 78-year-old male who presented with anemia of anasarca, found to have severe anemia. Workup revealed colon cancer. Progressed to prolonged respiratory failure from pneumonia which required tracheostomy. Went to [facility] for optimization. 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: - Now status post laparoscopic converted to open resection with end colostomy -Management per surgery and oncology Chronic respiratory failure: - s/p trach, wean as tolerated Atrial fibrillation: - Continue atenolol, rate controlled - hold off on AC given bleeding Acute kidney injury: - Resolved UTI -Urine culture is growing Klebsiella pneumonia ESBL -Continue meropenem -UA is positive Dysphagia: Status post G-tube Prophylaxis: SCDs DC planning: Anticipate DC back to [facility] this coming week, follow-up on surgery recommendations for DC planning Result Diagram: 01/28/19 0606 01/28/19 0606 Results 24hrs Laboratory Tests Test 01/28/19 06:06 White Blood Count 9.3 Red Blood Count 3.67 L Hemoglobin 10.0 L Hematocrit 32.2 L Mean Corpuscular Volume 87.7 Mean Corpuscular Hemoglobin 27.2 L Mean Corpuscular Hemoglobin Concent 31.1 L Red Cell Distribution Width 15.2 H Platelet Count 405 # Mean Platelet Volume 11.9 H Immature Granulocytes % 0.300 Neutrophils % 66.4 Lymphocytes % 20.0 Monocytes % 8.7 Eosinophils % 4.1 Basophils % 0.5 Nucleated Red Blood Cells % 0.0 Immature Granulocytes # 0.030 Neutrophils # 6.2 Lymphocytes # 1.9 Monocytes # 0.8 Eosinophils # 0.4 Basophils # 0.1 Nucleated Red Blood Cells # 0.0 Prothrombin Time 15.0 H Prothrombin Time Ratio 1.2 INR International Normalized Ratio 1.17 Activated Partial Thromboplast Time 36.8 H Sodium Level 140 Potassium Level 4.4 Chloride Level 100 Carbon Dioxide Level 29 Anion Gap 11 Blood Urea Nitrogen 34 H Creatinine 1.72 H Est Glomerular Filtrat Rate mL/min Glucose Level 110 Calcium Level 8.8 Magnesium Level 1.2 L Total Bilirubin 0.2 Direct Bilirubin 0.00 Indirect Bilirubin 0.2 Aspartate Amino Transf (AST/SGOT) 19 Alanine Aminotransferase (ALT/SGPT) 7 L Alkaline Phosphatase 105 Total Protein 7.7 Albumin 3.3 Globulin 4.40 H Albumin/Globulin Ratio 0.75 Subjective 24 Hr Interval Summary Free Text/Dictation No change to clinical status Failed swallow Fevers resolved Exam/Review of Systems Exam Vitals Vital Signs Date Temp Pulse Resp B/P (MAP) Pulse Ox O2 O2 Flow FiO2 Time Delivery Rate 01/28/19 98.7 88 18 114/55 98 Mechanical 15:58 (74) Ventilator 01/28/19 30 15:06 01/28/19 8.0 11:09 Intake and Output 01/27/19 01/27/19 01/28/19 1414:59 22:59 06:59 IntakeIntake Total 870 ml 870 ml OutputOutput Total 900 ml 406 ml BalanceBalance -30 ml 464 ml Exam Alert, appears well RRR On vent via trach Clear lungs Abdomen soft nt nd PEG Ext no edema Results Results 24hrs Laboratory Tests Test 01/28/19 06:06 White Blood Count 9.3 Red Blood Count 3.67 L Hemoglobin 10.0 L Hematocrit 32.2 L Mean Corpuscular Volume 87.7 Mean Corpuscular Hemoglobin 27.2 L Mean Corpuscular Hemoglobin Concent 31.1 L Red Cell Distribution Width 15.2 H Platelet Count 405 # Mean Platelet Volume 11.9 H Immature Granulocytes % 0.300 Neutrophils % 66.4 Lymphocytes % 20.0 Monocytes % 8.7 Eosinophils % 4.1 Basophils % 0.5 Nucleated Red Blood Cells % 0.0 Immature Granulocytes # 0.030 Neutrophils # 6.2 Lymphocytes # 1.9 Monocytes # 0.8 Eosinophils # 0.4 Basophils # 0.1 Nucleated Red Blood Cells # 0.0 Prothrombin Time 15.0 H Prothrombin Time Ratio 1.2 INR International Normalized Ratio 1.17 Activated Partial Thromboplast Time 36.8 H Sodium Level 140 Potassium Level 4.4 Chloride Level 100 Carbon Dioxide Level 29 Anion Gap 11 Blood Urea Nitrogen 34 H Creatinine 1.72 H Est Glomerular Filtrat Rate mL/min Glucose Level 110 Calcium Level 8.8 Magnesium Level 1.2 L Total Bilirubin 0.2 Direct Bilirubin 0.00 Indirect Bilirubin 0.2 Aspartate Amino Transf (AST/SGOT) 19 Alanine Aminotransferase (ALT/SGPT) 7 L Alkaline Phosphatase 105 Total Protein 7.7 Albumin 3.3 Globulin 4.40 H Albumin/Globulin Ratio 0.75 Medications Medication Current Medications Oxycodone/ Acetaminophen (Percocet (5/ 325)) 1 tab Q6H PRN GTB PAIN LEVEL 6-10 Last administered on 01/20/19at 09:05; Admin Dose 1 TAB; Start 01/19/19 at 20:30 Acetaminophen (Tylenol Tab) 650 mg Q6H PRN PEG MILD PAIN(1-3)OR ELEVATED TEMP Last administered on 01/26/19at 06:41; Admin Dose 650 MG; Start 01/19/19 at 20:30 IV Flush (NS 3 ml) 3 ml PER PROTOCOL IV ; Start 01/19/19 at 20:30 Ondansetron HCl (Zofran Inj) 4 mg Q6H PRN IV NAUSEA AND/OR VOMITING; Start 01/20/19 at 02:30 Albuterol (Ventolin Hfa) 4 puff Q2H RESP THERAPY PRN INH SHORTNESS OF BREATH; Start 01/20/19 at 02:30 Ipratropium [place] (Atrovent Hfa) 4 puff Q2H RESP THERAPY PRN INH SHORTNESS OF BREATH; Start 01/20/19 at 02:30 Atenolol (Tenormin) 25 mg DAILY PO Last administered on 01/28/19at 08:34; Admin Dose 25 MG; Start 01/20/19 at 09:00 Furosemide (Lasix) 80 mg DAILY@0600 PO Last administered on 01/28/19at 05:35; Admin Dose 80 MG; Start 01/20/19 at 06:00 Miscellaneous Information 1 ea NOTE XX ; Start 01/20/19 at 02:30 Miscellaneous Information (Pending [facility] Order For Wound Care) This patient huff... PRN PRN XX WOUND CARE; Start 01/20/19 at 08:30 Morphine Sulfate (morphine) 1 mg Q2H PRN IV breakthrough pain Last administered on 01/24/19at 23:45; Admin Dose 1 MG; Start 01/20/19 at 12:30 Meropenem/Sodium Chloride 50 ml @ 100 mls/hr Q12 IVPB Last administered on 01/28/19 08:34; Admin Dose 100 MLS/HR; Start 01/21/19 at 21:00 Lorazepam (Ativan) 1 mg Q6H PRN IV AGITATION Last administered on 01/28/19 01:41; Admin Dose 1 MG; Start 01/21/19 at 18:00 Pantoprazole (Protonix Tab) 40 mg DAILY@06 PO Last administered on 01/28/19 05:35; Admin Dose 40 MG; Start 01/28/19 at 06:00 Naphazoline HCl (Clear Eyes / Naphcon) 2 drop Q4H PRN BOTH EYES EYE IRRITATION Last administered on 01/28/19 08:35; Admin Dose 2 DROP; Start 01/27/19 at 21:00 ABBY AL MD Jan 28, 2019 16:08
[2019-01-29] VITALS (17 sets, daily range): BP systolic 101–139; BP diastolic 54–84; PULSE 64–97; RESP 16–34
[2019-01-29] MEDS: PANTOPRAZOLE (EC) 40 MG TAB PO SCH (05:54)
[2019-01-29] MEDS: ATENOLOL 50 MG TAB PO SCH (10:05)
[2019-01-29] MEDS: MEROPENEM 1 GM/50ML(PMX) 50 ML IVPB SCH ×2 (10:05→20:48)
--- NOTE | 2019-01-29 11:51 | CONS ---
Consult Date/Type/Reason Admit Date/Time Jan 19, 2019 at 10:30 Initial Consult Date 01/21/19 Type of Consult Pulmonary Requesting Provider: GEO DELEON Date/Time of Note DATE: 01/29/19 TIME: 11:49 Subjective Remains stable off mechanical ventilation. Family anxious about feeding patient. Objective Vital Signs Date Temp Pulse Resp B/P (MAP) Pulse Ox O2 O2 Flow FiO2 Time Delivery Rate 01/29/19 98 8.0 35 08:20 01/29/19 93 20 Aerosol 08:20 Aerosol Mask 01/29/19 97.9 139/84 08:00 (102) Intake and Output 01/28/19 01/28/19 01/29/19 1515:00 23:00 07:00 IntakeIntake Total 870 ml 870 ml OutputOutput Total 200 ml 600 ml 605 ml BalanceBalance -200 ml 270 ml 265 ml Exam GENERAL: Elderly appearing gentleman comfortable at rest no acute distress VITAL SIGNS: per chart NECK: Supple. No JVD or lymphadenopathy. CARDIAC EXAM: S1, S2. No added sounds or murmurs. CHEST: clear bilaterally, No added sounds, rales or wheezes ABDOMEN: Soft, nontender. No guarding or rebound. EXTREMITIES: No cyanosis, clubbing or edema. NEUROLOGIC: Generalized weakness. No focal deficits. Vent Setting Ventilator Support Mode: AC, VC plus Fraction of Inspired Oxygen pe: 35 Positive End Expiratory Pressu: 5.0 Results/Medications Result Diagram: 01/29/19 0549 01/29/19 0549 Results 24 hrs Laboratory Tests Test 01/29/19 05:49 White Blood Count 7.2 # Red Blood Count 3.46 L Hemoglobin 9.5 L Hematocrit 30.7 L Mean Corpuscular Volume 88.7 Mean Corpuscular Hemoglobin 27.5 L Mean Corpuscular Hemoglobin Concent 30.9 L Red Cell Distribution Width 14.9 H Platelet Count 355 Mean Platelet Volume 11.9 H Immature Granulocytes % 0.300 Neutrophils % 62.4 Lymphocytes % 24.0 Monocytes % 9.0 Eosinophils % 3.9 Basophils % 0.4 Nucleated Red Blood Cells % 0.0 Immature Granulocytes # 0.020 Neutrophils # 4.5 Lymphocytes # 1.7 Monocytes # 0.7 Eosinophils # 0.3 Basophils # 0.0 Nucleated Red Blood Cells # 0.0 Sodium Level 140 Potassium Level 4.4 Chloride Level 102 Carbon Dioxide Level 27 Anion Gap 11 Blood Urea Nitrogen 46 #H Creatinine 1.93 H Est Glomerular Filtrat Rate mL/min Glucose Level 101 Calcium Level 8.6 Medications Current Medications Oxycodone/ Acetaminophen (Percocet (5/ 325)) 1 tab Q6H PRN GTB PAIN LEVEL 6-10 Last administered on 01/20/19 09:05; Admin Dose 1 TAB; Start 01/19/19 at 20:30 Acetaminophen (Tylenol Tab) 650 mg Q6H PRN PEG MILD PAIN(1-3)OR ELEVATED TEMP Last administered on 01/26/19 06:41; Admin Dose 650 MG; Start 01/19/19 at 20:30 IV Flush (NS 3 ml) 3 ml PER PROTOCOL IV ; Start 01/19/19 at 20:30 Ondansetron HCl (Zofran Inj) 4 mg Q6H PRN IV NAUSEA AND/OR VOMITING; Start 01/20/19 at 02:30 Albuterol (Ventolin Hfa) 4 puff Q2H RESP THERAPY PRN INH SHORTNESS OF BREATH; Start 01/20/19 at 02:30 Ipratropium [place] (Atrovent Hfa) 4 puff Q2H RESP THERAPY PRN INH SHORTNESS OF BREATH; Start 01/20/19 at 02:30 Atenolol (Tenormin) 25 mg DAILY PO Last administered on 01/29/19 10:05; Admin Dose 25 MG; Start 01/20/19 at 09:00 Miscellaneous Information 1 ea NOTE XX ; Start 01/20/19 at 02:30 Miscellaneous Information (Pending [facility] Order For Wound Care) This patient huff... PRN PRN XX WOUND CARE; Start 01/20/19 at 08:30 Morphine Sulfate (morphine) 1 mg Q2H PRN IV breakthrough pain Last administered on 01/24/19 23:45; Admin Dose 1 MG; Start 01/20/19 at 12:30 Meropenem/Sodium Chloride 50 ml @ 100 mls/hr Q12 IVPB Last administered on 01/29/19 10:05; Admin Dose 100 MLS/HR; Start 01/21/19 at 21:00 Lorazepam (Ativan) 1 mg Q6H PRN IV AGITATION Last administered on 01/28/19 01:41; Admin Dose 1 MG; Start 01/21/19 at 18:00 Pantoprazole (Protonix Tab) 40 mg DAILY@06 PO Last administered on 01/29/19at 05:54; Admin Dose 40 MG; Start 01/28/19 at 06:00 Naphazoline HCl (Clear Eyes / Naphcon) 2 drop Q4H PRN BOTH EYES EYE IRRITATION Last administered on 01/28/19at 08:35; Admin Dose 2 DROP; Start 01/27/19 at 21:00 Assessment/Plan Hospital Course (Demo Recall) Assessment 1. Patient admitted for elective sigmoid resection due to history of recently diagnosed adenocarcinoma. 2. Chronic respiratory failure, patient now weaned down to T-piece with stable clinical status. 3. History of recent severe bilateral pneumonia. 4. 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 5. Possibly superimposed mild CHF. 6. Left lung pneumonia UTI. Currently on appropriate antimicrobial regimen. Urine analysis from 6 of this month showing persistent UTI. Possibly colonization. 7. Stable hypertension. Plan 1. Continue cool aerosol 2. Continue tube feeding 3. Speech therapy evaluation regarding ability to swallow 4 renal recommendations 5. Anticipate transfer to [facility] soon. Long discussion with son at bedside. JANNET BERG MD, [facility] Jan 29, 2019 11:51
--- NOTE | 2019-01-29 12:41 | CONS ---
Assessment/Plan Assessment/Plan Assessment/Plan (Daily) 1. Acute kidney injury on CKD III due to ATN and prerenal azotemia 2. 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 acute on chronic respiratory failure s/p tracheostomy 4. Atrial fibrillation:rate controlled 5. H/o Diabetes melitus 6. H/O HTN 7. Dysphagia: Status post G-tube 8. UTI with Urine Cx growing Klebsiella ESBL Plan: Lasix 80mg po daily, BUN/Cr 34/1.7- if continues to rise then we will decrease lasix to 20mg PO BID IV abx meropenem for ESBL Klebsiella UTI Renally dose all abx, monitor electrolytes General surgery following will follow up Consultation Date/Type/Reason Admit Date/Time Jan 19, 2019 at 10:30 am Initial Consult Date 01/21/19 Type of Consult Oncology Requesting Provider: GEO DELEON Date/Time of Note DATE: 01/29/19 TIME: 12:33 24 HR Interval Summary Free Text/Dictation low mag- replace UO - 1.4 L No new issues Constitutional: requiring IVF, requiring O2 Exam/Review of Systems Exam Vitals Vital Signs Date Temp Pulse Resp B/P (MAP) Pulse Ox O2 O2 Flow FiO2 Time Delivery Rate 01/29/19 98.7 73 16 125/59 98 Venturi 12:00 (81) Mask 01/29/19 8.0 35 08:20 Intake and Output 01/28/19 01/28/19 01/29/19 1414:59 22:59 06:59 IntakeIntake Total 870 ml 870 ml OutputOutput Total 200 ml 600 ml 605 ml BalanceBalance -200 ml 270 ml 265 ml Constitutional: alert Psych: nl mood/affect Eyes: nl lids, nl sclera ENMT: nl external ears & nose Respiratory: diminished breath sounds Cardiovascular: nl pulses, other Gastrointestinal: soft, non-tender Musculoskeletal: muscle weakness Extremities: normal pulses Lymph: nontender Results Result Diagram: 01/29/19 0549 01/29/19 0549 Results 24hrs Laboratory Tests Test 01/29/19 05:49 White Blood Count 7.2 # Red Blood Count 3.46 L Hemoglobin 9.5 L Hematocrit 30.7 L Mean Corpuscular Volume 88.7 Mean Corpuscular Hemoglobin 27.5 L Mean Corpuscular Hemoglobin Concent 30.9 L Red Cell Distribution Width 14.9 H Platelet Count 355 Mean Platelet Volume 11.9 H Immature Granulocytes % 0.300 Neutrophils % 62.4 Lymphocytes % 24.0 Monocytes % 9.0 Eosinophils % 3.9 Basophils % 0.4 Nucleated Red Blood Cells % 0.0 Immature Granulocytes # 0.020 Neutrophils # 4.5 Lymphocytes # 1.7 Monocytes # 0.7 Eosinophils # 0.3 Basophils # 0.0 Nucleated Red Blood Cells # 0.0 Sodium Level 140 Potassium Level 4.4 Chloride Level 102 Carbon Dioxide Level 27 Anion Gap 11 Blood Urea Nitrogen 46 #H Creatinine 1.93 H Est Glomerular Filtrat Rate mL/min Glucose Level 101 Calcium Level 8.6 Medications Medication Current Medications Oxycodone/ Acetaminophen (Percocet (5/ 325)) 1 tab Q6H PRN GTB PAIN LEVEL 6-10 Last administered on 01/20/19at 09:05; Admin Dose 1 TAB; Start 01/19/19 at 20:30 Acetaminophen (Tylenol Tab) 650 mg Q6H PRN PEG MILD PAIN(1-3)OR ELEVATED TEMP Last administered on 01/26/19at 06:41; Admin Dose 650 MG; Start 01/19/19 at 20:30 IV Flush (NS 3 ml) 3 ml PER PROTOCOL IV ; Start 01/19/19 at 20:30 Ondansetron HCl (Zofran Inj) 4 mg Q6H PRN IV NAUSEA AND/OR VOMITING; Start 01/20/19 at 02:30 Albuterol (Ventolin Hfa) 4 puff Q2H RESP THERAPY PRN INH SHORTNESS OF BREATH; Start 01/20/19 at 02:30 Ipratropium [place] (Atrovent Hfa) 4 puff Q2H RESP THERAPY PRN INH SHORTNESS OF BREATH; Start 01/20/19 at 02:30 Atenolol (Tenormin) 25 mg DAILY PO Last administered on 01/29/19at 10:05; Admin Dose 25 MG; Start 01/20/19 at 09:00 Miscellaneous Information 1 ea NOTE XX ; Start 01/20/19 at 02:30 Miscellaneous Information (Pending [facility] Order For Wound Care) This patient huff... PRN PRN XX WOUND CARE; Start 01/20/19 at 08:30 Morphine Sulfate (morphine) 1 mg Q2H PRN IV breakthrough pain Last administered on 01/24/19 23:45; Admin Dose 1 MG; Start 01/20/19 at 12:30 Meropenem/Sodium Chloride 50 ml @ 100 mls/hr Q12 IVPB Last administered on 01/29/19 10:05; Admin Dose 100 MLS/HR; Start 01/21/19 at 21:00 Lorazepam (Ativan) 1 mg Q6H PRN IV AGITATION Last administered on 01/28/19 01:41; Admin Dose 1 MG; Start 01/21/19 at 18:00 Pantoprazole (Protonix Tab) 40 mg DAILY@06 PO Last administered on 01/29/19 05:54; Admin Dose 40 MG; Start 01/28/19 at 06:00 Naphazoline HCl (Clear Eyes / Naphcon) 2 drop Q4H PRN BOTH EYES EYE IRRITATION Last administered on 01/28/19 08:35; Admin Dose 2 DROP; Start 01/27/19 at 21:00 DORIAN MOSS Jan 29, 2019 12:41 pm
[2019-01-29] MEDS ORDERED: MAGNESIUM SULFATE 2 GM/50 ML 50 ML IVPB ONE (13:00)
[2019-01-29] MEDS ORDERED: DEXTROSE 5%-0.45% NACL 1,000 ML IV SCH (13:00)
--- NOTE | 2019-01-29 13:42 | PN ---
Date/Time of Note Date/Time of Note DATE: 01/29/19 TIME: 13:41 Assessment/Plan VTE Prophylaxis Risk score (from [facility])>0 risk: 11 SCD applied (from [facility]): Yes Pharmacological prophylaxis: heparin Lines/Catheters IV Catheter Type (from [facility]): [place] Urinary Cath still in place: No Assessment/Plan Hospital Course 78-year-old male who presented with anemia of anasarca, found to have severe anemia. Workup revealed colon cancer. Progressed to prolonged respiratory failure from pneumonia which required tracheostomy. Went to [place] for optimization. Then admitted to undergo LAR and colostomy, now POD8 Possible abscess on CT - Medical management with merrem. ID follwowing. 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: - Now status post laparoscopic converted to open resection with end colostomy -Management per surgery and oncology Chronic respiratory failure: - s/p trach, wean as tolerated Atrial fibrillation: - Continue atenolol, rate controlled - hold off on AC given bleeding Acute kidney injury: - Resolved UTI -Urine culture is growing Klebsiella pneumonia ESBL -Continue meropenem per iD -UA is positive Dysphagia: Status post G-tube Prophylaxis: SCDs DC planning: Anticipate DC back to [place] when accpeted, follow-up on surgery recommendations for DC planning Result Diagram: 01/29/19 0549 01/29/19 0549 Results 24hrs Laboratory Tests Test 01/29/19 05:49 White Blood Count 7.2 # Red Blood Count 3.46 L Hemoglobin 9.5 L Hematocrit 30.7 L Mean Corpuscular Volume 88.7 Mean Corpuscular Hemoglobin 27.5 L Mean Corpuscular Hemoglobin Concent 30.9 L Red Cell Distribution Width 14.9 H Platelet Count 355 Mean Platelet Volume 11.9 H Immature Granulocytes % 0.300 Neutrophils % 62.4 Lymphocytes % 24.0 Monocytes % 9.0 Eosinophils % 3.9 Basophils % 0.4 Nucleated Red Blood Cells % 0.0 Immature Granulocytes # 0.020 Neutrophils # 4.5 Lymphocytes # 1.7 Monocytes # 0.7 Eosinophils # 0.3 Basophils # 0.0 Nucleated Red Blood Cells # 0.0 Sodium Level 140 Potassium Level 4.4 Chloride Level 102 Carbon Dioxide Level 27 Anion Gap 11 Blood Urea Nitrogen 46 #H Creatinine 1.93 H Est Glomerular Filtrat Rate mL/min Glucose Level 101 Calcium Level 8.6 Subjective 24 Hr Interval Summary Free Text/Dictation Afebrile Doing well on trach collar Using PMV with speech therapy Exam/Review of Systems Exam Vitals Vital Signs Date Temp Pulse Resp B/P (MAP) Pulse Ox O2 O2 Flow FiO2 Time Delivery Rate 01/29/19 98.7 73 16 125/59 98 Venturi 12:00 (81) Mask 01/29/19 8.0 35 08:20 Intake and Output 01/28/19 01/28/19 01/29/19 1515:00 23:00 07:00 IntakeIntake Total 870 ml 870 ml OutputOutput Total 200 ml 600 ml 605 ml BalanceBalance -200 ml 270 ml 265 ml Exam Alert, interactive RRR Trach collar Breatghign comfortably ELIUD drain, ostomy Results Results 24hrs Laboratory Tests Test 01/29/19 05:49 White Blood Count 7.2 # Red Blood Count 3.46 L Hemoglobin 9.5 L Hematocrit 30.7 L Mean Corpuscular Volume 88.7 Mean Corpuscular Hemoglobin 27.5 L Mean Corpuscular Hemoglobin Concent 30.9 L Red Cell Distribution Width 14.9 H Platelet Count 355 Mean Platelet Volume 11.9 H Immature Granulocytes % 0.300 Neutrophils % 62.4 Lymphocytes % 24.0 Monocytes % 9.0 Eosinophils % 3.9 Basophils % 0.4 Nucleated Red Blood Cells % 0.0 Immature Granulocytes # 0.020 Neutrophils # 4.5 Lymphocytes # 1.7 Monocytes # 0.7 Eosinophils # 0.3 Basophils # 0.0 Nucleated Red Blood Cells # 0.0 Sodium Level 140 Potassium Level 4.4 Chloride Level 102 Carbon Dioxide Level 27 Anion Gap 11 Blood Urea Nitrogen 46 #H Creatinine 1.93 H Est Glomerular Filtrat Rate mL/min Glucose Level 101 Calcium Level 8.6 Medications Medication Current Medications Oxycodone/ Acetaminophen (Percocet (5/ 325)) 1 tab Q6H PRN GTB PAIN LEVEL 6-10 Last administered on 01/20/19at 09:05; Admin Dose 1 TAB; Start 01/19/19 at 20:30 Acetaminophen (Tylenol Tab) 650 mg Q6H PRN PEG MILD PAIN(1-3)OR ELEVATED TEMP Last administered on 01/26/19at 06:41; Admin Dose 650 MG; Start 01/19/19 at 20:30 IV Flush (NS 3 ml) 3 ml PER PROTOCOL IV ; Start 01/19/19 at 20:30 Ondansetron HCl (Zofran Inj) 4 mg Q6H PRN IV NAUSEA AND/OR VOMITING; Start 01/20/19 at 02:30 Albuterol (Ventolin Hfa) 4 puff Q2H RESP THERAPY PRN INH SHORTNESS OF BREATH; Start 01/20/19 at 02:30 Ipratropium [place] (Atrovent Hfa) 4 puff Q2H RESP THERAPY PRN INH SHORTNESS OF BREATH; Start 01/20/19 at 02:30 Atenolol (Tenormin) 25 mg DAILY PO Last administered on 01/29/19 10:05; Admin Dose 25 MG; Start 01/20/19 at 09:00 Miscellaneous Information 1 ea NOTE XX ; Start 01/20/19 at 02:30 Miscellaneous Information (Pending [facility] Order For Wound Care) This patient huff... PRN PRN XX WOUND CARE; Start 01/20/19 at 08:30 Morphine Sulfate (morphine) 1 mg Q2H PRN IV breakthrough pain Last administered on 01/24/19 23:45; Admin Dose 1 MG; Start 01/20/19 at 12:30 Meropenem/Sodium Chloride 50 ml @ 100 mls/hr Q12 IVPB Last administered on 01/29/19 10:05; Admin Dose 100 MLS/HR; Start 01/21/19 at 21:00 Lorazepam (Ativan) 1 mg Q6H PRN IV AGITATION Last administered on 01/28/19 01:41; Admin Dose 1 MG; Start 01/21/19 at 18:00 Pantoprazole (Protonix Tab) 40 mg DAILY@06 PO Last administered on 01/29/19 05:54; Admin Dose 40 MG; Start 01/28/19 at 06:00 Naphazoline HCl (Clear Eyes / Naphcon) 2 drop Q4H PRN BOTH EYES EYE IRRITATION Last administered on 01/28/19 08:35; Admin Dose 2 DROP; Start 01/27/19 at 21:00 Magnesium Sulfate 50 ml @ 25 mls/hr ONCE ONCE IVPB ; Start 01/29/19 at 13:00; Stop 01/29/19 at 14:59 Dextrose/Sodium Chloride 1,000 ml @ 50 mls/hr Q20H IV ; Start 01/29/19 at 13:00; Stop 01/30/19 at 08:59 ABBY AL MD Jan 29, 2019 13:42
--- NOTE | 2019-01-29 14:12 | CONS ---
Consultation Date/Type/Reason Admit Date/Time Jan 19, 2019 at 10:30 Initial Consult Date SUBJECTIVE: Patient is nonverbal. Afebrile, no acute distress. VS: stable T: 98.7 LABS: Reviewed. WBC- 7.2 Microbiology: Repeat urine culture from 2 days ago negative, urine culture on admission grew Klebsiella ESBL. Blood cultures pending. Abx: Merrem Indwelling: Trach, PEG, abdominal ELIUD, [place] PHYSICAL EXAMINATION: GENERAL: This is a well-developed, chronically ill-appearing, elderly man who is noncommunicative, looks comfortable. The patient is in no distress. HEENT: Head is atraumatic, normocephalic. Sclerae are anicteric. Buccal mu cosa is dry. NECK: Supple. CHEST: Rise symmetrical. Breath sounds diminished to bases. HEART: S1, S2. ABDOMEN: Soft. Bowel tones are present. EXTREMITIES: Without cyanosis. Assessment: 1. Status post fevers 2. Questionable pelvic abscess 3. 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 Status post urinary tract infection 5. Chronic respiratory failure and dysphagia 6. Acute kidney injury Plan: Patient remains stable. Will continue current antbx treatment. No fevers and WBC is WNL. Requesting Provider: GEO DELEON Date/Time of Note DATE: 01/29/19 TIME: 14:09 Exam/Review of Systems Exam Vitals Vital Signs Date Temp Pulse Resp B/P (MAP) Pulse Ox O2 O2 Flow FiO2 Time Delivery Rate 01/29/19 94 8.0 35 13:46 01/29/19 73 Aerosol 13:46 T Tube 01/29/19 98.7 16 125/59 12:00 (81) Intake and Output 01/28/19 01/28/19 01/29/19 1515:00 23:00 07:00 IntakeIntake Total 870 ml 870 ml OutputOutput Total 200 ml 600 ml 605 ml BalanceBalance -200 ml 270 ml 265 ml Results Result Diagram: 01/29/19 0549 01/29/19 0549 Results 24hrs Laboratory Tests Test 01/29/19 05:49 White Blood Count 7.2 # Red Blood Count 3.46 L Hemoglobin 9.5 L Hematocrit 30.7 L Mean Corpuscular Volume 88.7 Mean Corpuscular Hemoglobin 27.5 L Mean Corpuscular Hemoglobin Concent 30.9 L Red Cell Distribution Width 14.9 H Platelet Count 355 Mean Platelet Volume 11.9 H Immature Granulocytes % 0.300 Neutrophils % 62.4 Lymphocytes % 24.0 Monocytes % 9.0 Eosinophils % 3.9 Basophils % 0.4 Nucleated Red Blood Cells % 0.0 Immature Granulocytes # 0.020 Neutrophils # 4.5 Lymphocytes # 1.7 Monocytes # 0.7 Eosinophils # 0.3 Basophils # 0.0 Nucleated Red Blood Cells # 0.0 Sodium Level 140 Potassium Level 4.4 Chloride Level 102 Carbon Dioxide Level 27 Anion Gap 11 Blood Urea Nitrogen 46 #H Creatinine 1.93 H Est Glomerular Filtrat Rate mL/min Glucose Level 101 Calcium Level 8.6 Medications Medication Current Medications Oxycodone/ Acetaminophen (Percocet (5/ 325)) 1 tab Q6H PRN GTB PAIN LEVEL 6-10 Last administered on 01/20/19at 09:05; Admin Dose 1 TAB; Start 01/19/19 at 20:30 Acetaminophen (Tylenol Tab) 650 mg Q6H PRN PEG MILD PAIN(1-3)OR ELEVATED TEMP Last administered on 01/26/19at 06:41; Admin Dose 650 MG; Start 01/19/19 at 20:30 IV Flush (NS 3 ml) 3 ml PER PROTOCOL IV ; Start 01/19/19 at 20:30 Ondansetron HCl (Zofran Inj) 4 mg Q6H PRN IV NAUSEA AND/OR VOMITING; Start 01/20/19 at 02:30 Albuterol (Ventolin Hfa) 4 puff Q2H RESP THERAPY PRN INH SHORTNESS OF BREATH; Start 01/20/19 at 02:30 Ipratropium [place] (Atrovent Hfa) 4 puff Q2H RESP THERAPY PRN INH SHORTNESS OF BREATH; Start 01/20/19 at 02:30 Atenolol (Tenormin) 25 mg DAILY PO Last administered on 01/29/19at 10:05; Admin Dose 25 MG; Start 01/20/19 at 09:00 Miscellaneous Information 1 ea NOTE XX ; Start 01/20/19 at 02:30 Miscellaneous Information (Pending Santyl Order For Wound Care) This patient huff... PRN PRN XX WOUND CARE; Start 01/20/19 at 08:30 Morphine Sulfate (morphine) 1 mg Q2H PRN IV breakthrough pain Last administered on 01/24/19at 23:45; Admin Dose 1 MG; Start 01/20/19 at 12:30 Meropenem/Sodium Chloride 50 ml @ 100 mls/hr Q12 IVPB Last administered on 01/29/19at 10:05; Admin Dose 100 MLS/HR; Start 01/21/19 at 21:00 Lorazepam (Ativan) 1 mg Q6H PRN IV AGITATION Last administered on 01/28/19at 01:41; Admin Dose 1 MG; Start 01/21/19 at 18:00 Pantoprazole (Protonix Tab) 40 mg DAILY@06 PO Last administered on 01/29/19 05:54; Admin Dose 40 MG; Start 01/28/19 at 06:00 Naphazoline HCl (Clear Eyes / Naphcon) 2 drop Q4H PRN BOTH EYES EYE IRRITATION Last administered on 01/28/19at 08:35; Admin Dose 2 DROP; Start 01/27/19 at 21:00 Magnesium Sulfate 50 ml @ 25 mls/hr ONCE ONCE IVPB ; Start 01/29/19 at 13:00; Stop 01/29/19 at 14:59 Dextrose/Sodium Chloride 1,000 ml @ 50 mls/hr Q20H IV ; Start 01/29/19 at 13:00; Stop 01/30/19 at 08:59 AMY PAYNE Jan 29, 2019 14:12
--- NOTE | 2019-01-29 15:35 | CONS ---
Assessment/Plan Assessment/Plan Hospital Course (Demo Recall) IMPRESSION: 1. Tachycardia, intermittent consistent with sinus tachycardia, likely in the setting of pain and anxiety-improved 2. Hypotension, borderline after given pain meds, ensure good volume status. 3. Abnormal electrocardiogram, right bundle branch block, secondary repolarization abnormalities, assess for heart block, rule out acute coronary syndrome postoperatively. 4. Colon carcinoma, status post resection and now s/p abd CT with questionable liver lesion 5. Anemia. 6. Renal failure- worsening renal function 7. Altered mental state/encephalopathy. 8. Diabetes mellitus. 9. Leukocytosis. 10. Hypernatremia-resolved 11. Fevers Recc: -Tele -Continue BB as tolerated only -Follow volume status and creatnine closely with lasix held in the setting of ARF -Continue abx's and f/u cx data -Rx fevers -pain control -Ongoing Onc eval -Ongoing renal f/u Consultation Date/Type/Reason Admit Date/Time Jan 19, 2019 at 10:30 Initial Consult Date 01/20/19 Type of Consult Cardiology Reason for Consultation tachycardia Requesting Provider: GEO DELEON Date/Time of Note DATE: 01/29/19 TIME: 15:34 Exam/Review of Systems Vital Signs Vitals Vital Signs Date Temp Pulse Resp B/P (MAP) Pulse Ox O2 O2 Flow FiO2 Time Delivery Rate 01/29/19 94 8.0 35 13:46 01/29/19 73 Aerosol 13:46 T Tube 01/29/19 98.7 16 125/59 12:00 (81) Intake and Output 01/28/19 01/28/19 01/29/19 1515:00 23:00 07:00 IntakeIntake Total 870 ml 870 ml OutputOutput Total 200 ml 600 ml 605 ml BalanceBalance -200 ml 270 ml 265 ml Exam Exam Review of Systems: CONSTITUTIONAL: No fevers, chills. PULMONARY: No sob CARDIOVASCULAR: No chest pain/palpitations GASTROINTESTINAL: No nausea/vomiting. GENITOURINARY: No hematuria/dysuria. MUSCULOSKELETAL: No myagias/arthalgias. PSYCHIATRIC: The patient denies depression. NEUROLOGIC: No weakness Constitutional: alert Psych: no complaints Head: normocephalic ENMT: mucosa pink and moist Neck: supple, jvd (9 cm water) Respiratory: clear to auscultation Cardiovascular: regular rate and rhythm Gastrointestinal: soft, non-tender Musculoskeletal: muscle weakness (generalized) Extremities: edema (none) Labs Result Diagram: 01/29/19 0549 01/29/19 0549 Results 24hrs Laboratory Tests Test 01/29/19 05:49 White Blood Count 7.2 # Red Blood Count 3.46 L Hemoglobin 9.5 L Hematocrit 30.7 L Mean Corpuscular Volume 88.7 Mean Corpuscular Hemoglobin 27.5 L Mean Corpuscular Hemoglobin Concent 30.9 L Red Cell Distribution Width 14.9 H Platelet Count 355 Mean Platelet Volume 11.9 H Immature Granulocytes % 0.300 Neutrophils % 62.4 Lymphocytes % 24.0 Monocytes % 9.0 Eosinophils % 3.9 Basophils % 0.4 Nucleated Red Blood Cells % 0.0 Immature Granulocytes # 0.020 Neutrophils # 4.5 Lymphocytes # 1.7 Monocytes # 0.7 Eosinophils # 0.3 Basophils # 0.0 Nucleated Red Blood Cells # 0.0 Sodium Level 140 Potassium Level 4.4 Chloride Level 102 Carbon Dioxide Level 27 Anion Gap 11 Blood Urea Nitrogen 46 #H Creatinine 1.93 H Est Glomerular Filtrat Rate mL/min Glucose Level 101 Calcium Level 8.6 Medications Medications Current Medications Oxycodone/ Acetaminophen (Percocet (5/ 325)) 1 tab Q6H PRN GTB PAIN LEVEL 6-10 Last administered on 01/20/19at 09:05; Admin Dose 1 TAB; Start 01/19/19 at 20:30 Acetaminophen (Tylenol Tab) 650 mg Q6H PRN PEG MILD PAIN(1-3)OR ELEVATED TEMP Last administered on 01/26/19at 06:41; Admin Dose 650 MG; Start 01/19/19 at 20:30 IV Flush (NS 3 ml) 3 ml PER PROTOCOL IV ; Start 01/19/19 at 20:30 Ondansetron HCl (Zofran Inj) 4 mg Q6H PRN IV NAUSEA AND/OR VOMITING; Start 01/20/19 at 02:30 Albuterol (Ventolin Hfa) 4 puff Q2H RESP THERAPY PRN INH SHORTNESS OF BREATH; Start 01/20/19 at 02:30 Ipratropium [place] (Atrovent Hfa) 4 puff Q2H RESP THERAPY PRN INH SHORTNESS OF BREATH; Start 01/20/19 at 02:30 Atenolol (Tenormin) 25 mg DAILY PO Last administered on 01/29/19 10:05; Admin Dose 25 MG; Start 01/20/19 at 09:00 Miscellaneous Information 1 ea NOTE XX ; Start 01/20/19 at 02:30 Miscellaneous Information (Pending Santyl Order For Wound Care) This patient huff... PRN PRN XX WOUND CARE; Start 01/20/19 at 08:30 Morphine Sulfate (morphine) 1 mg Q2H PRN IV breakthrough pain Last administered on 01/24/19 23:45; Admin Dose 1 MG; Start 01/20/19 at 12:30 Meropenem/Sodium Chloride 50 ml @ 100 mls/hr Q12 IVPB Last administered on 01/29/19 10:05; Admin Dose 100 MLS/HR; Start 01/21/19 at 21:00 Lorazepam (Ativan) 1 mg Q6H PRN IV AGITATION Last administered on 01/28/19 01:41; Admin Dose 1 MG; Start 01/21/19 at 18:00 Pantoprazole (Protonix Tab) 40 mg DAILY@06 PO Last administered on 01/29/19 05:54; Admin Dose 40 MG; Start 01/28/19 at 06:00 Naphazoline HCl (Clear Eyes / Naphcon) 2 drop Q4H PRN BOTH EYES EYE IRRITATION Last administered on 01/28/19 08:35; Admin Dose 2 DROP; Start 01/27/19 at 21:00 Dextrose/Sodium Chloride 1,000 ml @ 50 mls/hr Q20H IV Last administered on 01/29/19 15:00; Admin Dose 50 MLS/HR; Start 01/29/19 at 13:00; Stop 01/30/19 at 08:59 TWAN ESTEVEZ Jan 29, 2019 15:35
--- NOTE | 2019-01-29 18:51 | CONS ---
Consult Date/Type/Reason Admit Date/Time Jan 19, 2019 at 10:30 Initial Consult Date 01/21/19 Type of Consultation: Urology Reason for Consultation Urinary retention Requesting Provider: GEO DELEON Date/Time of Note DATE: 01/29/19 TIME: 18:48 Subjective Patient is awake and alert and is comfortable. He is voiding on his own through the condom catheter that he has. Objective Vitals Vital Signs Date Temp Pulse Resp B/P (MAP) Pulse Ox O2 O2 Flow FiO2 Time Delivery Rate 01/29/19 96 8.0 35 17:47 01/29/19 78 20 Aerosol 17:47 Aerosol Mask 01/29/19 98.7 125/59 12:00 (81) Intake and Output 01/28/19 01/28/19 01/29/19 1414:59 22:59 06:59 IntakeIntake Total 870 ml 870 ml OutputOutput Total 200 ml 600 ml 605 ml BalanceBalance -200 ml 270 ml 265 ml Exam Condom catheter his own and is draining well. Results/Medications Result Diagram: 01/29/19 0549 01/29/19 0549 Results 24 hrs Laboratory Tests Test 01/29/19 05:49 White Blood Count 7.2 # Red Blood Count 3.46 L Hemoglobin 9.5 L Hematocrit 30.7 L Mean Corpuscular Volume 88.7 Mean Corpuscular Hemoglobin 27.5 L Mean Corpuscular Hemoglobin Concent 30.9 L Red Cell Distribution Width 14.9 H Platelet Count 355 Mean Platelet Volume 11.9 H Immature Granulocytes % 0.300 Neutrophils % 62.4 Lymphocytes % 24.0 Monocytes % 9.0 Eosinophils % 3.9 Basophils % 0.4 Nucleated Red Blood Cells % 0.0 Immature Granulocytes # 0.020 Neutrophils # 4.5 Lymphocytes # 1.7 Monocytes # 0.7 Eosinophils # 0.3 Basophils # 0.0 Nucleated Red Blood Cells # 0.0 Sodium Level 140 Potassium Level 4.4 Chloride Level 102 Carbon Dioxide Level 27 Anion Gap 11 Blood Urea Nitrogen 46 #H Creatinine 1.93 H Est Glomerular Filtrat Rate mL/min Glucose Level 101 Calcium Level 8.6 Home Meds Active Scripts Pantoprazole (Protonix) 40 Mg Tabec, 40 MG PO BID, #60 TAB 1 Refill Prov:NAYANA GARCIA 12/31/18 Reported Medications Calcium Citrate/Vitamin D (Citracal-Vitamin D 200 MG-250) 1 Each Tablet, 1 EACH PO BID, TAB 11/19/18 Ibuprofen* (Ibuprofen*) 600 Mg Tablet, 600 MG PO Q6H PRN for PAIN LEVEL 1-5, TAB 11/19/18 Hydralazine Hcl* (Hydralazine Hcl*) 50 Mg Tablet, 50 MG PO Q6H, #60 TAB 11/19/18 Metformin* (Glucophage*) 500 Mg Tab, 500 MG PO WITH BREAKFAST, #30 TAB 11/19/18 Multivitamins* (Theragran*) 1 Tab Tab, 1 TAB PO DAILY, TAB 11/19/18 Aripiprazole* (Abilify*) 5 Mg Tab, 5 MG PO DAILY, #30 TAB 11/19/18 Diltiazem Hcl* (Cardizem SR*) 120 Mg Cap.sr.12h, 120 MG PO Q12, CAP 11/19/18 Pioglitazone Hcl* (Pioglitazone Hcl*) 30 Mg Tablet, 30 MG PO DAILY, TAB 11/19/18 Escitalopram Oxalate* (Escitalopram Oxalate*) 20 Mg Tablet, 20 MG PO DAILY, #30 TAB 11/19/18 Benazepril Hcl* (Benazepril Hcl*) 20 Mg Tablet, 20 MG PO DAILY, #30 TAB 11/19/18 Tamsulosin Hcl* (Tamsulosin Hcl*) 0.4 Mg Cap.er.24h, 0.4 MG PO HS, CAP 11/19/18 Aspirin Ec (Aspir 81) 81 Mg Tablet.dr, 81 MG PO DAILY, #30 TAB 11/19/18 Loratadine* (Loratadine*) 10 Mg Tablet, 10 MG PO DAILY, #30 TAB 18 Potassium Chloride* (Potassium Chloride*) 8 Meq Capsule.er, 8 MEQ PO DAILY, CAP 11/19/18 Furosemide* (Furosemide*) 80 Mg Tablet, 80 MG PO DAILY, #30 TAB 11/19/18 Atenolol* (Atenolol*) 50 Mg Tablet, 50 MG PO DAILY, #30 TAB 18 Digoxin* (Lanoxin*) 0.25 Mg Tablet, 0.25 MG PO DAILY, TAB 11/19/18 Medications Current Medications Oxycodone/ Acetaminophen (Percocet (5/ 325)) 1 tab Q6H PRN GTB PAIN LEVEL 6-10 Last administered on 01/20/19 09:05; Admin Dose 1 TAB; Start 01/19/19 at 20:30 Acetaminophen (Tylenol Tab) 650 mg Q6H PRN PEG MILD PAIN(1-3)OR ELEVATED TEMP Last administered on 01/26/19 06:41; Admin Dose 650 MG; Start 01/19/19 at 20:30 IV Flush (NS 3 ml) 3 ml PER PROTOCOL IV ; Start 01/19/19 at 20:30 Ondansetron HCl (Zofran Inj) 4 mg Q6H PRN IV NAUSEA AND/OR VOMITING; Start 01/20/19 at 02:30 Albuterol (Ventolin Hfa) 4 puff Q2H RESP THERAPY PRN INH SHORTNESS OF BREATH; Start 01/20/19 at 02:30 Ipratropium [place] (Atrovent Hfa) 4 puff Q2H RESP THERAPY PRN INH SHORTNESS OF BREATH; Start 01/20/19 at 02:30 Atenolol (Tenormin) 25 mg DAILY PO Last administered on 01/29/19at 10:05; Admin Dose 25 MG; Start 01/20/19 at 09:00 Miscellaneous Information 1 ea NOTE XX ; Start 01/20/19 at 02:30 Miscellaneous Information (Pending [facility] Order For Wound Care) This patient huff... PRN PRN XX WOUND CARE; Start 01/20/19 at 08:30 Morphine Sulfate (morphine) 1 mg Q2H PRN IV breakthrough pain Last administered on 01/24/19at 23:45; Admin Dose 1 MG; Start 01/20/19 at 12:30 Meropenem/Sodium Chloride 50 ml @ 100 mls/hr Q12 IVPB Last administered on 01/29/19 10:05; Admin Dose 100 MLS/HR; Start 01/21/19 at 21:00 Lorazepam (Ativan) 1 mg Q6H PRN IV AGITATION Last administered on 01/28/19 01:4 1; Admin Dose 1 MG; Start 01/21/19 at 18:00 Pantoprazole (Protonix Tab) 40 mg DAILY@06 PO Last administered on 01/29/19 05:54; Admin Dose 40 MG; Start 01/28/19 at 06:00 Naphazoline HCl (Clear Eyes / Naphcon) 2 drop Q4H PRN BOTH EYES EYE IRRITATION Last administered on 01/28/19at 08:35; Admin Dose 2 DROP; Start 01/27/19 at 21:00 Dextrose/Sodium Chloride 1,000 ml @ 50 mls/hr Q20H IV Last administered on 01/29/19at 15:00; Admin Dose 50 MLS/HR; Start 01/29/19 at 13:00; Stop 01/30/19 at 08:59 Assessment/Plan Hospital Course (Demo Recall) 78-year-old male known to have a history of benign prostatic hypertrophy and urinary retention. He underwent surgery for colon cancer. The patient has a tracheostomy. Previously we had him on doxazosin to help him with his voiding and he was voiding with a low postvoid residual. He has been voiding well through the condom catheter and his postvoid residual is minimal. Continue present treatment MARILEE CHAVEZ MD Jan 29, 2019 18:51
--- NOTE | 2019-01-29 23:36 | PN ---
Date/Time of Note Date/Time of Note DATE: 01/29/19 TIME: 23:33 Assessment/Plan Lines/Catheters IV Catheter Type (from [facility]): Mid Line [place] in Place (from [facility]): No Assessment/Plan Chief Complaint/Hosp Course 1. Sigmoid/rectal adenocarcinoma with obstruction, status post stent and significant adhesions, colorectal bleed with anemia: Status post laparoscopic converted to open low anterior resection with end colostomy and laparoscopic appendectomy 01/19/19; CT noted: Possible abscess> discussed with IR who recommends medical mgt (abx tx), no drainage Path: Moderately differentiated adenocarcinoma with ulceration and marked luminal stenosis involving upper rectum, invades muscularis propria into pericolorectal tissue, focally involving mesenteric margin and colonic serosa. -- Metastatic adenocarcinoma with extranodal extension involving twelve (12) of nineteen (19) mesenteric lymph nodes, associated with tumor deposits. -Antibiotics per ID -continue tube feeds titrate to goal, monitor bowel function -ambulate as able -ice pack to abdominal wall -continue Drain -Close monitoring -oncology f/u 2. Fever: resolved -As above -close monitoring 3. UTI : Possible cystitis per recent CT -Urology follow-up -frequent bladder emptying/cath care 4. Hypochromic anemia: Some blood noted in ostomy bag; drop in H&H: Status post PRBC transfusion -Monitor for now and transfuse as needed 5. VDRF: Mild bibasilar atelectasis versus airspace disease -Pulmonary toilet 6. Dysphagia status post PEG tube -tube feed as tolerated 7. SIMI: worsening Cr -Limit nephrotoxic meds -Renally dose meds -Judicious fluids Thank you Subjective 24 Hr Interval Summary Path noted. Bowel function per ostomy. No fevers, chills, sob, congested cough, cp, palpitations, huff, dizziness, n/v. Tolerating tf. Exam/Review of Systems Vital Signs Vitals Vital Signs Date Temp Pulse Resp B/P (MAP) Pulse Ox O2 O2 Flow FiO2 Time Delivery Rate 01/29/19 98.3 66 16 136/65 99 23:00 (88) 01/29/19 8.0 35 17:47 01/29/19 Aerosol 17:47 Aerosol Mask Intake and Output 01/29/19 01/29/19 01/30/19 1515:00 23:00 07:00 IntakeIntake Total 50 ml 1220 ml OutputOutput Total 10 ml BalanceBalance 50 ml 1210 ml Exam Free Text/Dictation Constitutional: alert; follows simple commands Psych: confusion Head: normocephalic, atraumatic Eyes: nl conjunctiva, nl lids, nl sclera ENMT: nl external ears & nose, mucosa pink and moist; No nl lips & teeth (Edentulous-bottom) Neck: supple, non-tender, other (Tracheostomy) Respiratory: normal air movement; No congested cough, No labored breathing Cardiovascular: regular rate and rhythm (Sinus rhythm); No edema Gastrointestinal: soft, distended (Minimal), other (Incision sites: (Midline: Staple line clean, no cristina-incisional erythema/drainage); ELIUD drain serosanguineous; colostomy with darkened discoloration) Genitourinary - Male: nl penis, nl scrotum Musculoskeletal: nl extremities to inspection Extremities: normal pulses, pitting pedal edema Neurological: confused; No nl mental status, No nl speech, No nl strength (Generalized weakness) Skin: No rash or lesions Results Result Diagram: 01/29/19 0549 01/29/19 0549 NIMO HOPKINS MD Jan 29, 2019 23:35
[2019-01-30] VITALS (19 sets, daily range): BP systolic 117–131; BP diastolic 58–68; PULSE 32–90; RESP 16–39
--- NOTE | 2019-01-30 00:50 | PN ---
Date/Time of Note Date/Time of Note DATE: 01/30/19 TIME: 00:49 Assessment/Plan Lines/Catheters IV Catheter Type (from [facility]): Mid Line [place] in Place (from [facility]): No Assessment/Plan Chief Complaint/Hosp Course 1. Sigmoid/rectal adenocarcinoma with obstruction, status post stent and significant adhesions, colorectal bleed with anemia: Status post laparoscopic converted to open low anterior resection with end colostomy and laparoscopic appendectomy 01/19/19; CT noted: Possible abscess> discussed with IR who recommends medical mgt (abx tx), no drainage Path: Moderately differentiated adenocarcinoma with ulceration and marked luminal stenosis involving upper rectum, invades muscularis propria into pericolorectal tissue, focally involving mesenteric margin and colonic serosa. -- Metastatic adenocarcinoma with extranodal extension involving twelve (12) of nineteen (19) mesenteric lymph nodes, associated with tumor deposits. -Antibiotics per ID -continue tube feeds titrate to goal, monitor bowel function -ambulate as able -ice pack to abdominal wall -continue Drain -Close monitoring -oncology f/u 2. Fever: resolved -As above -close monitoring 3. UTI : Possible cystitis per recent CT -Urology follow-up -frequent bladder emptying/cath care 4. Hypochromic anemia: Some blood noted in ostomy bag; drop in H&H: Status post PRBC transfusion -Monitor for now and transfuse as needed 5. VDRF: Mild bibasilar atelectasis versus airspace disease -Pulmonary toilet 6. Dysphagia status post PEG tube -tube feed as tolerated 7. SIMI: worsening Cr -Limit nephrotoxic meds -Renally dose meds -Judicious fluids Thank you Subjective 24 Hr Interval Summary Bowel function per ostomy. No fevers, chills, sob, congested cough, cp, palpitations, huff, dizziness, n/v. Tolerating TFs. Exam/Review of Systems Vital Signs Vitals Vital Signs Date Temp Pulse Resp B/P (MAP) Pulse Ox O2 O2 Flow FiO2 Time Delivery Rate 01/29/19 98.3 66 16 136/65 99 23:00 (88) 01/29/19 8.0 35 17:47 01/29/19 Aerosol 17:47 Aerosol Mask Intake and Output 01/29/19 01/29/19 01/30/19 1515:00 23:00 07:00 IntakeIntake Total 50 ml 1220 ml OutputOutput Total 10 ml BalanceBalance 50 ml 1210 ml Exam Free Text/Dictation Constitutional: alert; follows simple commands Psych: confusion Head: normocephalic, atraumatic Eyes: nl conjunctiva, nl lids, nl sclera ENMT: nl external ears & nose, mucosa pink and moist; No nl lips & teeth (Edentulous-bottom) Neck: supple, non-tender, other (Tracheostomy) Respiratory: normal air movement; No congested cough, No labored breathing Cardiovascular: regular rate and rhythm (Sinus rhythm); No edema Gastrointestinal: soft, distended (Minimal), other (Incision sites: (Midline: Staple line clean, no cristina-incisional erythema/drainage); ELIUD drain serosangu ineous; colostomy with darkened discoloration) Genitourinary - Male: nl penis, nl scrotum Musculoskeletal: nl extremities to inspection Extremities: normal pulses, pitting pedal edema Neurological: confused; No nl mental status, No nl speech, No nl strength (Generalized weakness) Skin: No rash or lesions Results Result Diagram: 01/29/19 0549 01/29/19 0549 NIMO HOPKINS MD Jan 30, 2019 00:50
[2019-01-30] MEDS: LORAZEPAM 2 MG INJ IV PRN ×2 (01:08→09:42)
[2019-01-30] MEDS: PANTOPRAZOLE (EC) 40 MG TAB PO SCH (05:49)
[2019-01-30] MEDS: ATENOLOL 50 MG TAB PO SCH (09:24)
[2019-01-30] MEDS: MEROPENEM 1 GM/50ML(PMX) 50 ML IVPB SCH ×2 (09:25→21:59)
--- NOTE | 2019-01-30 10:47 | CONS ---
Consult Date/Type/Reason Admit Date/Time Jan 19, 2019 at 10:30 Initial Consult Date 01/21/19 Type of Consult Pulmonary Requesting Provider: GEO DELEON Date/Time of Note DATE: 01/30/19 TIME: 10:46 Subjective Patient stable this morning no respiratory distress continues cool aerosol Objective Vital Signs Date Temp Pulse Resp B/P (MAP) Pulse Ox O2 O2 Flow FiO2 Time Delivery Rate 01/30/19 97 8.0 35 08:24 01/30/19 82 23 08:15 01/30/19 98.6 131/68 07:58 (89) 01/29/19 Aerosol 17:47 Aerosol Mask Intake and Output 01/29/19 01/29/19 01/30/19 1414:59 22:59 06:59 IntakeIntake Total 50 ml 1220 ml 1470 ml OutputOutput Total 10 ml 325 ml BalanceBalance 50 ml 1210 ml 1145 ml Exam GENERAL: Elderly appearing gentleman comfortable at rest no acute distress VITAL SIGNS: per chart NECK: Supple. No JVD or lymphadenopathy. CARDIAC EXAM: S1, S2. No added sounds or murmurs. CHEST: clear bilaterally, No added sounds, rales or wheezes ABDOMEN: Soft, nontender. No guarding or rebound. EXTREMITIES: No cyanosis, clubbing or edema. NEUROLOGIC: Generalized weakness. No focal deficits. Vent Setting Ventilator Support Mode: AC, VC plus Fraction of Inspired Oxygen pe: 35 Positive End Expiratory Pressu: 5.0 Results/Medications Result Diagram: 01/30/19 0620 01/30/19 0620 Results 24 hrs Laboratory Tests Test 01/30/19 06:20 White Blood Count 8.0 Red Blood Count 3.39 L Hemoglobin 9.2 L Hematocrit 29.8 L Mean Corpuscular Volume 87.9 Mean Corpuscular Hemoglobin 27.1 L Mean Corpuscular Hemoglobin Concent 30.9 L Red Cell Distribution Width 15.1 H Platelet Count 436 #H Mean Platelet Volume 11.5 H Immature Granulocytes % 0.400 Neutrophils % 65.2 Lymphocytes % 21.7 Monocytes % 7.6 Eosinophils % 4.4 Basophils % 0.7 Nucleated Red Blood Cells % 0.0 Immature Granulocytes # 0.030 Neutrophils # 5.2 Lymphocytes # 1.7 Monocytes # 0.6 Eosinophils # 0.4 Basophils # 0.1 Nucleated Red Blood Cells # 0.0 Sodium Level 142 Potassium Level 4.2 Chloride Level 104 Carbon Dioxide Level 29 Anion Gap 9 Blood Urea Nitrogen 42 H Creatinine 1.62 H Est Glomerular Filtrat Rate mL/min Glucose Level 100 Calcium Level 8.9 Magnesium Level 2.0 Medications Current Medications Oxycodone/ Acetaminophen (Percocet (5/ 325)) 1 tab Q6H PRN GTB PAIN LEVEL 6-10 Last administered on 01/20/19at 09:05; Admin Dose 1 TAB; Start 01/19/19 at 20:30 Acetaminophen (Tylenol Tab) 650 mg Q6H PRN PEG MILD PAIN(1-3)OR ELEVATED TEMP Last administered on 01/26/19at 06:41; Admin Dose 650 MG; Start 01/19/19 at 20:30 IV Flush (NS 3 ml) 3 ml PER PROTOCOL IV ; Start 01/19/19 at 20:30 Ondansetron HCl (Zofran Inj) 4 mg Q6H PRN IV NAUSEA AND/OR VOMITING; Start 01/20/19 at 02:30 Albuterol (Ventolin Hfa) 4 puff Q2H RESP THERAPY PRN INH SHORTNESS OF BREATH; Start 01/20/19 at 02:30 Ipratropium [place] (Atrovent Hfa) 4 puff Q2H RESP THERAPY PRN INH SHORTNESS OF BREATH; Start 01/20/19 at 02:30 Atenolol (Tenormin) 25 mg DAILY PO Last administered on 01/30/19at 09:24; Admin Dose 25 MG; Start 01/20/19 at 09:00 Miscellaneous Information 1 ea NOTE XX ; Start 01/20/19 at 02:30 Miscellaneous Information ([facility]) This patient huff... PRN PRN XX WOUND CARE; Start 01/20/19 at 08:30 Morphine Sulfate (morphine) 1 mg Q2H PRN IV breakthrough pain Last administered on 01/24/19at 23:45; Admin Dose 1 MG; Start 01/20/19 at 12:30 Meropenem/Sodium Chloride 50 ml @ 100 mls/hr Q12 IVPB Last administered on 01/30/19at 09:25; Admin Dose 100 MLS/HR; Start 01/21/19 at 21:00 Lorazepam (Ativan) 1 mg Q6H PRN IV AGITATION Last administered on 01/30/19at 09:42; Admin Dose 1 MG; Start 01/21/19 at 18:00 Pantoprazole (Protonix Tab) 40 mg DAILY@06 PO Last administered on 01/30/19at 05:49; Admin Dose 40 MG; Start 01/28/19 at 06:00 Naphazoline HCl (Clear Eyes / Naphcon) 2 drop Q4H PRN BOTH EYES EYE IRRITATION Last administered on 01/28/19at 08:35; Admin Dose 2 DROP; Start 01/27/19 at 21:00 Assessment/Plan Hospital Course (Demo Recall) Assessment 1. Patient admitted for elective sigmoid resection due to history of recently diagnosed adenocarcinoma. 2. Chronic respiratory failure, patient now weaned down to T-piece with stable clinical status. 3. History of recent severe bilateral pneumonia. 4. 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 5. Possibly superimposed mild CHF. 6. Left lung pneumonia UTI. Currently on appropriate antimicrobial regimen. Urine analysis from 6 of this month showing persistent UTI. Possibly colonization. 7. Stable hypertension. Plan 1. Continue cool aerosol 2. Continue tube feeding 3. Speech therapy evaluation regarding ability to swallow 4 renal recommendations 5. Anticipate transfer to [facility] soon. JANNET BERG MD, [facility] Jan 30, 2019 10:47
--- NOTE | 2019-01-30 11:49 | CONS ---
Consultation Date/Type/Reason Admit Date/Time Jan 19, 2019 at 10:30 Initial Consult Date SUBJECTIVE: Patient is nonverbal. Afebrile, no acute distress. No acute events over night. VS: stable T: 98.6 LABS: Reviewed. WBC- 8.0 Microbiology: Repeat urine culture from 2 days ago negative, urine culture on admission grew Klebsiella ESBL. Blood cultures pending. Abx: Merrem Indwelling: Trach, PEG, abdominal ELIUD, [place] PHYSICAL EXAMINATION: GENERAL: This is a well-developed, chronically ill-appearing, elderly man who is noncommunicative, looks comfortable. The patient is in no distress. HEENT: Head is atraumatic, normocephalic. Sclerae are anicteric. Buccal mucosa is dry. NECK: Supple. CHEST: Rise symmetrical. Breath sounds diminished to bases. HEART: S1, S2. ABDOMEN: Soft. Bowel tones are present. EXTREMITIES: Without cyanosis. Assessment: 1. Status post fevers 2. Questionable pelvic abscess 3. 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 Status post urinary tract infection 5. Chronic respiratory failure and dysphagia 6. Acute kidney injury Plan: Patient remains stable. Will continue current antbx treatment. D/C planning to [place] Requesting Provider: GEO DELEON Date/Time of Note DATE: 01/30/19 TIME: 11:48 Exam/Review of Systems Exam Vitals Vital Signs Date Temp Pulse Resp B/P (MAP) Pulse Ox O2 O2 Flow FiO2 Time Delivery Rate 01/30/19 97 8.0 35 11:37 01/30/19 98.6 80 22 129/67 11:22 (87) 01/30/19 Aerosol 08:24 Intake and Output 01/29/19 01/29/19 01/30/19 1515:00 23:00 07:00 IntakeIntake Total 50 ml 1220 ml 1470 ml OutputOutput Total 10 ml 325 ml BalanceBalance 50 ml 1210 ml 1145 ml Results Result Diagram: 01/30/19 0620 01/30/19 0620 Results 24hrs Laboratory Tests Test 01/30/19 06:20 White Blood Count 8.0 Red Blood Count 3.39 L Hemoglobin 9.2 L Hematocrit 29.8 L Mean Corpuscular Volume 87.9 Mean Corpuscular Hemoglobin 27.1 L Mean Corpuscular Hemoglobin Concent 30.9 L Red Cell Distribution Width 15.1 H Platelet Count 436 #H Mean Platelet Volume 11.5 H Immature Granulocytes % 0.400 Neutrophils % 65.2 Lymphocytes % 21.7 Monocytes % 7.6 Eosinophils % 4.4 Basophils % 0.7 Nucleated Red Blood Cells % 0.0 Immature Granulocytes # 0.030 Neutrophils # 5.2 Lymphocytes # 1.7 Monocytes # 0.6 Eosinophils # 0.4 Basophils # 0.1 Nucleated Red Blood Cells # 0.0 Sodium Level 142 Potassium Level 4.2 Chloride Level 104 Carbon Dioxide Level 29 Anion Gap 9 Blood Urea Nitrogen 42 H Creatinine 1.62 H Est Glomerular Filtrat Rate mL/min Glucose Level 100 Calcium Level 8.9 Magnesium Level 2.0 Medications Medication Current Medications Oxycodone/ Acetaminophen (Percocet (5/ 325)) 1 tab Q6H PRN GTB PAIN LEVEL 6-10 Last administered on 01/20/19at 09:05; Admin Dose 1 TAB; Start 01/19/19 at 20:30 Acetaminophen (Tylenol Tab) 650 mg Q6H PRN PEG MILD PAIN(1-3)OR ELEVATED TEMP Last administered on 01/26/19at 06:41; Admin Dose 650 MG; Start 01/19/19 at 20:30 IV Flush (NS 3 ml) 3 ml PER PROTOCOL IV ; Start 01/19/19 at 20:30 Ondansetron HCl (Zofran Inj) 4 mg Q6H PRN IV NAUSEA AND/OR VOMITING; Start 01/20/19 at 02:30 Albuterol (Ventolin Hfa) 4 puff Q2H RESP THERAPY PRN INH SHORTNESS OF BREATH; Start 01/20/19 at 02:30 Ipratropium [place] (Atrovent Hfa) 4 puff Q2H RESP THERAPY PRN INH SHORTNESS OF BREATH; Start 01/20/19 at 02:30 Atenolol (Tenormin) 25 mg DAILY PO Last administered on 01/30/19at 09:24; Admin Dose 25 MG; Start 01/20/19 at 09:00 Miscellaneous Information 1 ea NOTE XX ; Start 01/20/19 at 02:30 Miscellaneous Information (Pending [facility] Order For Wound Care) This patient huff... PRN PRN XX WOUND CARE; Start 01/20/19 at 08:30 Morphine Sulfate (morphine) 1 mg Q2H PRN IV breakthrough pain Last administered on 01/24/19 23:45; Admin Dose 1 MG; Start 01/20/19 at 12:30 Meropenem/Sodium Chloride 50 ml @ 100 mls/hr Q12 IVPB Last administered on 01/30/19 09:25; Admin Dose 100 MLS/HR; Start 01/21/19 at 21:00 Lorazepam (Ativan) 1 mg Q6H PRN IV AGITATION Last administered on 01/30/19 09:42; Admin Dose 1 MG; Start 01/21/19 at 18:00 Pantoprazole (Protonix Tab) 40 mg DAILY@06 PO Last administered on 01/30/19 05:49; Admin Dose 40 MG; Start 01/28/19 at 06:00 Naphazoline HCl (Clear Eyes / Naphcon) 2 drop Q4H PRN BOTH EYES EYE IRRITATION Last administered on 01/28/19 08:35; Admin Dose 2 DROP; Start 01/27/19 at 21:00 AMY PAYNE Jan 30, 2019 11:49
--- NOTE | 2019-01-30 14:15 | CONS ---
Consult Date/Type/Reason Admit Date/Time Jan 19, 2019 at 10:30 Initial Consult Date 01/21/19 Type of Consultation: Urology Reason for Consultation Urinary retention Requesting Provider: GEO DELEON Date/Time of Note DATE: 01/30/19 TIME: 14:12 Subjective Patient is much more alert and awake. He denies having any pain with urination. Objective Vitals Vital Signs Date Temp Pulse Resp B/P (MAP) Pulse Ox O2 O2 Flow FiO2 Time Delivery Rate 01/30/19 73 12:01 01/30/19 97 8.0 35 11:37 01/30/19 98.6 22 129/67 11:22 (87) 01/30/19 Aerosol 08:24 Intake and Output 01/29/19 01/29/19 01/30/19 1515:00 23:00 07:00 IntakeIntake Total 50 ml 1220 ml 1470 ml OutputOutput Total 10 ml 325 ml BalanceBalance 50 ml 1210 ml 1145 ml Exam Patient is voiding well and his urine is clear Results/Medications Result Diagram: 01/30/19 0620 01/30/19 0620 Results 24 hrs Laboratory Tests Test 01/30/19 06:20 White Blood Count 8.0 Red Blood Count 3.39 L Hemoglobin 9.2 L Hematocrit 29.8 L Mean Corpuscular Volume 87.9 Mean Corpuscular Hemoglobin 27.1 L Mean Corpuscular Hemoglobin Concent 30.9 L Red Cell Distribution Width 15.1 H Platelet Count 436 #H Mean Platelet Volume 11.5 H Immature Granulocytes % 0.400 Neutrophils % 65.2 Lymphocytes % 21.7 Monocytes % 7.6 Eosinophils % 4.4 Basophils % 0.7 Nucleated Red Blood Cells % 0.0 Immature Granulocytes # 0.030 Neutrophils # 5.2 Lymphocytes # 1.7 Monocytes # 0.6 Eosinophils # 0.4 Basophils # 0.1 Nucleated Red Blood Cells # 0.0 Sodium Level 142 Potassium Level 4.2 Chloride Level 104 Carbon Dioxide Level 29 Anion Gap 9 Blood Urea Nitrogen 42 H Creatinine 1.62 H Est Glomerular Filtrat Rate mL/min Glucose Level 100 Calcium Level 8.9 Magnesium Level 2.0 Home Meds Active Scripts Pantoprazole (Protonix) 40 Mg Tabec, 40 MG PO BID, #60 TAB 1 Refill Prov:NAYANA GARCIA 11/22/18 Reported Medications Calcium Citrate/Vitamin D (Citracal-Vitamin D 200 MG-250) 1 Each Tablet, 1 EACH PO BID, TAB 11/19/18 Ibuprofen* (Ibuprofen*) 600 Mg Tablet, 600 MG PO Q6H PRN for PAIN LEVEL 1-5, TAB 11/19/18 Hydralazine Hcl* (Hydralazine Hcl*) 50 Mg Tablet, 50 MG PO Q6H, #60 TAB 11/19/18 Metformin* (Glucophage*) 500 Mg Tab, 500 MG PO WITH BREAKFAST, #30 TAB 11/19/18 Multivitamins* (Theragran*) 1 Tab Tab, 1 TAB PO DAILY, TAB 11/19/18 Aripiprazole* (Abilify*) 5 Mg Tab, 5 MG PO DAILY, #30 TAB 11/19/18 Diltiazem Hcl* (Cardizem SR*) 120 Mg Cap.sr.12h, 120 MG PO Q12, CAP 11/19/18 Pioglitazone Hcl* (Pioglitazone Hcl*) 30 Mg Tablet, 30 MG PO DAILY, TAB 11/19/18 Escitalopram Oxalate* (Escitalopram Oxalate*) 20 Mg Tablet, 20 MG PO DAILY, #30 TAB 11/19/18 Benazepril Hcl* (Benazepril Hcl*) 20 Mg Tablet, 20 MG PO DAILY, #30 TAB 11/19/18 Tamsulosin Hcl* (Tamsulosin Hcl*) 0.4 Mg Cap.er.24h, 0.4 MG PO HS, CAP 11/19/18 Aspirin Ec (Aspir 81) 81 Mg Tablet.dr, 81 MG PO DAILY, #30 TAB 11/19/18 Loratadine* (Loratadine*) 10 Mg Tablet, 10 MG PO DAILY, #30 TAB 11/19/18 Potassium Chloride* (Potassium Chloride*) 8 Meq Capsule.er, 8 MEQ PO DAILY, CAP 11/19/18 Furosemide* (Furosemide*) 80 Mg Tablet, 80 MG PO DAILY, #30 TAB 11/19/18 Atenolol* (Atenolol*) 50 Mg Tablet, 50 MG PO DAILY, #30 TAB 11/19/18 Digoxin* (Lanoxin*) 0.25 Mg Tablet, 0.25 MG PO DAILY, TAB 11/19/18 Medications Current Medications Oxycodone/ Acetaminophen (Percocet (5/ 325)) 1 tab Q6H PRN GTB PAIN LEVEL 6-10 Last administered on 01/20/19 09:05; Admin Dose 1 TAB; Start 01/19/19 at 20:30 Acetaminophen (Tylenol Tab) 650 mg Q6H PRN PEG MILD PAIN(1-3)OR ELEVATED TEMP Last administered on 01/26/19 06:41; Admin Dose 650 MG; Start 01/19/19 at 20:30 IV Flush (NS 3 ml) 3 ml PER PROTOCOL IV ; Start 01/19/19 at 20:30 Ondansetron HCl (Zofran Inj) 4 mg Q6H PRN IV NAUSEA AND/OR VOMITING; Start 12/25 07/11 at 02:30 Albuterol (Ventolin Hfa) 4 puff Q2H RESP THERAPY PRN INH SHORTNESS OF BREATH; Start 01/20/19 at 02:30 Ipratropium [place] (Atrovent Hfa) 4 puff Q2H RESP THERAPY PRN INH SHORTNESS OF BREATH; Start 01/20/19 at 02:30 Atenolol (Tenormin) 25 mg DAILY PO Last administered on 01/30/19 09:24; Admin Dose 25 MG; Start 01/20/19 at 09:00 Miscellaneous Information 1 ea NOTE XX ; Start 01/20/19 at 02:30 Miscellaneous Information (Pending [facility] Order For Wound Care) This patient huff... PRN PRN XX WOUND CARE; Start 01/20/19 at 08:30 Morphine Sulfate (morphine) 1 mg Q2H PRN IV breakthrough pain Last administered on 01/24/19 23:45; Admin Dose 1 MG; Start 01/20/19 at 12:30 Meropenem/Sodium Chloride 50 ml @ 100 mls/hr Q12 IVPB Last administered on 01/30/19 09:25; Admin Dose 100 MLS/HR; Start 01/21/19 at 21:00 Lorazepam (Ativan) 1 mg Q6H PRN IV AGITATION Last administered on 01/30/19 09:42; Admin Dose 1 MG; Start 01/21/19 at 18:00 Pantoprazole (Protonix Tab) 40 mg DAILY@06 PO Last administered on 01/30/19 05:49; Admin Dose 40 MG; Start 01/28/19 at 06:00 Naphazoline HCl (Clear Eyes / Naphcon) 2 drop Q4H PRN BOTH EYES EYE IRRITATION Last administered on 01/28/19at 08:35; Admin Dose 2 DROP; Start 01/27/19 at 21:00 Assessment/Plan Hospital Course (Demo Recall) 78-year-old male known to have a history of benign prostatic hypertrophy and urinary retention. He underwent surgery for colon cancer. The patient has a tracheostomy. Previously we had him on doxazosin to help him with his voiding and he was voiding with a low postvoid residual. Presently he has been voiding well through the condom catheter and his postvoid residual is minimal. On 01/19/2019 he had Klebsiella ESBL UTI. He was treated and now urine culture on January 26, 2019 showed no growth after 48 hours. Continue present treatment MARILEE CHAVEZ MD Jan 30, 2019 14:15
--- NOTE | 2019-01-30 15:19 | CONS ---
Assessment/Plan Assessment/Plan Hospital Course (Demo Recall) IMPRESSION: 1. Tachycardia, intermittent consistent with sinus tachycardia, likely in the setting of pain and anxiety-improved 2. Hypotension, borderline after given pain meds, ensure good volume status. 3. Abnormal electrocardiogram, right bundle branch block, secondary repolarization abnormalities, assess for heart block, rule out acute coronary syndrome postoperatively. 4. Colon carcinoma, status post resection and now s/p abd CT with questionable liver lesion 5. Anemia. 6. Renal failure- worsening renal function 7. Altered mental state/encephalopathy. 8. Diabetes mellitus. 9. Leukocytosis. 10. Hypernatremia-resolved 11. Fevers Recc: -Tele -Continue BB as tolerated only -Follow volume status and creatnine closely with lasix held in the setting of ARF -Continue abx's and f/u cx data -Rx fevers -pain control -Ongoing Onc eval -Ongoing renal f/u Consultation Date/Type/Reason Admit Date/Time Jan 19, 2019 at 10:30 Initial Consult Date 01/20/19 Type of Consult Cardiology Reason for Consultation tachycardia Requesting Provider: GEO DELEON Date/Time of Note DATE: 01/30/19 TIME: 15:17 Exam/Review of Systems Vital Signs Vitals Vital Signs Date Temp Pulse Resp B/P (MAP) Pulse Ox O2 O2 Flow FiO2 Time Delivery Rate 01/30/19 8.0 35 13:30 01/30/19 77 20 99 Aerosol 12:55 01/30/19 98.6 129/67 11:22 (87) Intake and Output 01/29/19 01/29/19 01/30/19 1515:00 23:00 07:00 IntakeIntake Total 50 ml 1220 ml 1470 ml OutputOutput Total 10 ml 325 ml BalanceBalance 50 ml 1210 ml 1145 ml Exam Exam Review of Systems: CONSTITUTIONAL: No fevers, chills. PULMONARY: trached CARDIOVASCULAR: No chest pain/palpitations GASTROINTESTINAL: No nausea/vomiting. GENITOURINARY: No hematuria/dysuria. MUSCULOSKELETAL: No myagias/arthalgias. PSYCHIATRIC: The patient denies depression. NEUROLOGIC: No weakness Constitutional: alert, oriented Psych: no complaints Head: normocephalic ENMT: mucosa pink and moist Neck: other (trached) Respiratory: diminished breath sounds (at bases/B) Cardiovascular: regular rate and rhythm Gastrointestinal: soft, non-tender, other (covered by dressing) Musculoskeletal: muscle weakness (generalized weakness) Extremities: edema (none) Neurological: other (No focal deficits) Labs Result Diagram: 01/30/19 0620 01/30/19 0620 Results 24hrs Laboratory Tests Test 01/30/19 06:20 White Blood Count 8.0 Red Blood Count 3.39 L Hemoglobin 9.2 L Hematocrit 29.8 L Mean Corpuscular Volume 87.9 Mean Corpuscular Hemoglobin 27.1 L Mean Corpuscular Hemoglobin Concent 30.9 L Red Cell Distribution Width 15.1 H Platelet Count 436 #H Mean Platelet Volume 11.5 H Immature Granulocytes % 0.400 Neutrophils % 65.2 Lymphocytes % 21.7 Monocytes % 7.6 Eosinophils % 4.4 Basophils % 0.7 Nucleated Red Blood Cells % 0.0 Immature Granulocytes # 0.030 Neutrophils # 5.2 Lymphocytes # 1.7 Monocytes # 0.6 Eosinophils # 0.4 Basophils # 0.1 Nucleated Red Blood Cells # 0.0 Sodium Level 142 Potassium Level 4.2 Chloride Level 104 Carbon Dioxide Level 29 Anion Gap 9 Blood Urea Nitrogen 42 H Creatinine 1.62 H Est Glomerular Filtrat Rate mL/min Glucose Level 100 Calcium Level 8.9 Magnesium Level 2.0 Medications Medications Current Medications Oxycodone/ Acetaminophen (Percocet (5/ 325)) 1 tab Q6H PRN GTB PAIN LEVEL 6-10 Last administered on 01/20/19at 09:05; Admin Dose 1 TAB; Start 01/19/19 at 20:30 Acetaminophen (Tylenol Tab) 650 mg Q6H PRN PEG MILD PAIN(1-3)OR ELEVATED TEMP Last administered on 01/26/19at 06:41; Admin Dose 650 MG; Start 01/19/19 at 20:30 IV Flush (NS 3 ml) 3 ml PER PROTOCOL IV ; Start 01/19/19 at 20:30 Ondansetron HCl (Zofran Inj) 4 mg Q6H PRN IV NAUSEA AND/OR VOMITING; Start 01/20/19 at 02:30 Albuterol (Ventolin Hfa) 4 puff Q2H RESP THERAPY PRN INH SHORTNESS OF BREATH; Start 01/20/19 at 02:30 Ipratropium [place] (Atrovent Hfa) 4 puff Q2H RESP THERAPY PRN INH SHORTNESS OF BREATH; Start 01/20/19 at 02:30 Atenolol (Tenormin) 25 mg DAILY PO Last administered on 01/30/19 09:24; Admin Dose 25 MG; Start 01/20/19 at 09:00 Miscellaneous Information 1 ea NOTE XX ; Start 01/20/19 at 02:30 Miscellaneous Information (Pending [facility] Order For Wound Care) This patient huff... PRN PRN XX WOUND CARE; Start 01/20/19 at 08:30 Morphine Sulfate (morphine) 1 mg Q2H PRN IV breakthrough pain Last administered on 01/24/19 23:45; Admin Dose 1 MG; Start 01/20/19 at 12:30 Meropenem/Sodium Chloride 50 ml @ 100 mls/hr Q12 IVPB Last administered on 01/30/19 09:25; Admin Dose 100 MLS/HR; Start 01/21/19 at 21:00 Lorazepam (Ativan) 1 mg Q6H PRN IV AGITATION Last administered on 01/30/19 09:42; Admin Dose 1 MG; Start 01/21/19 at 18:00 Pantoprazole (Protonix Tab) 40 mg DAILY@06 PO Last administered on 01/30/19 05:49; Admin Dose 40 MG; Start 01/28/19 at 06:00 Naphazoline HCl (Clear Eyes / Naphcon) 2 drop Q4H PRN BOTH EYES EYE IRRITATION Last administered on 01/28/19 08:35; Admin Dose 2 DROP; Start 01/27/19 at 21:00 TWAN ESTEVEZ Jan 30, 2019 15:19
--- NOTE | 2019-01-30 15:49 | PN ---
Date/Time of Note Date/Time of Note DATE: 01/30/19 TIME: 15:46 Assessment/Plan VTE Prophylaxis Risk score (from Ns)>0 risk: 7 SCD applied [place]from [facility] [place] Yes Pharmacological prophylaxis: heparin Lines/Catheters IV Catheter Type (from [facility]): Mid Line Urinary Cath still in place: No Assessment/Plan Hospital Course 78-year-old male who presented with anemia of anasarca, found to have severe anemia. Workup revealed colon cancer. Progressed to prolonged respiratory failure from pneumonia which required tracheostomy. Went to [place] for optimization. Then admitted to undergo LAR and colostomy, now POD8 Possible abscess on CT - Medical management with merrem. ID follwowing. 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 Patient accpeted, however patient's son Ang does not want the patient to be transferred until ELIUD drain is removed Result Diagram: 01/30/19 0620 01/30/19 0620 Results 24hrs Laboratory Tests Test 01/30/19 06:20 White Blood Count 8.0 Red Blood Count 3.39 L Hemoglobin 9.2 L Hematocrit 29.8 L Mean Corpuscular Volume 87.9 Mean Corpuscular Hemoglobin 27.1 L Mean Corpuscular Hemoglobin Concent 30.9 L Red Cell Distribution Width 15.1 H Platelet Count 436 #H Mean Platelet Volume 11.5 H Immature Granulocytes % 0.400 Neutrophils % 65.2 Lymphocytes % 21.7 Monocytes % 7.6 Eosinophils % 4.4 Basophils % 0.7 Nucleated Red Blood Cells % 0.0 Immature Granulocytes # 0.030 Neutrophils # 5.2 Lymphocytes # 1.7 Monocytes # 0.6 Eosinophils # 0.4 Basophils # 0.1 Nucleated Red Blood Cells # 0.0 Sodium Level 142 Potassium Level 4.2 Chloride Level 104 Carbon Dioxide Level 29 Anion Gap 9 Blood Urea Nitrogen 42 H Creatinine 1.62 H Est Glomerular Filtrat Rate mL/min Glucose Level 100 Calcium Level 8.9 Magnesium Level 2.0 Subjective 24 Hr Interval Summary Free Text/Dictation No change to clinical status Awaiting dc plan Exam/Review of Systems Exam Vitals Vital Signs Date Temp Pulse Resp B/P (MAP) Pulse Ox O2 O2 Flow FiO2 Time Delivery Rate 01/30/19 98.5 84 18 127/66 99 15:27 (86) 01/30/19 8.0 35 13:30 01/30/19 Aerosol 12:55 Intake and Output 01/29/19 01/29/19 01/30/19 1515:00 23:00 07:00 IntakeIntake Total 50 ml 1220 ml 1470 ml OutputOutput Total 10 ml 325 ml BalanceBalance 50 ml 1210 ml 1145 ml Exam Alert no distress Breathing comfortably on T piece RRR Colosomty, ELIUD drain with minimal drainage Abd soft nt nd Results Results 24hrs Laboratory Tests Test 01/30/19 06:20 White Blood Count 8.0 Red Blood Count 3.39 L Hemoglobin 9.2 L Hematocrit 29.8 L Mean Corpuscular Volume 87.9 Mean Corpuscular Hemoglobin 27.1 L Mean Corpuscular Hemoglobin Concent 30.9 L Red Cell Distribution Width 15.1 H Platelet Count 436 #H Mean Platelet Volume 11.5 H Immature Granulocytes % 0.400 Neutrophils % 65.2 Lymphocytes % 21.7 Monocytes % 7.6 Eosinophils % 4.4 Basophils % 0.7 Nucleated Red Blood Cells % 0.0 Immature Granulocytes # 0.030 Neutrophils # 5.2 Lymphocytes # 1.7 Monocytes # 0.6 Eosinophils # 0.4 Basophils # 0.1 Nucleated Red Blood Cells # 0.0 Sodium Level 142 Potassium Level 4.2 Chloride Level 104 Carbon Dioxide Level 29 Anion Gap 9 Blood Urea Nitrogen 42 H Creatinine 1.62 H Est Glomerular Filtrat Rate mL/min Glucose Level 100 Calcium Level 8.9 Magnesium Level 2.0 Medications Medication Current Medications Oxycodone/ Acetaminophen (Percocet (5/ 325)) 1 tab Q6H PRN GTB PAIN LEVEL 6-10 Last administered on 01/20/19at 09:05; Admin Dose 1 TAB; Start 01/19/19 at 20:30 Acetaminophen (Tylenol Tab) 650 mg Q6H PRN PEG MILD PAIN(1-3)OR ELEVATED TEMP Last administered on 01/26/19 06:41; Admin Dose 650 MG; Start 01/19/19 at 20:30 IV Flush (NS 3 ml) 3 ml PER PROTOCOL IV ; Start 01/19/19 at 20:30 Ondansetron HCl (Zofran Inj) 4 mg Q6H PRN IV NAUSEA AND/OR VOMITING; Start 01/20/19 at 02:30 Albuterol (Ventolin Hfa) 4 puff Q2H RESP THERAPY PRN INH SHORTNESS OF BREATH; Start 01/20/19 at 02:30 Ipratropium [place] (Atrovent Hfa) 4 puff Q2H RESP THERAPY PRN INH SHORTNESS OF BREATH; Start 01/20/19 at 02:30 Atenolol (Tenormin) 25 mg DAILY PO Last administered on 01/30/19 09:24; Admin Dose 25 MG; Start 01/20/19 at 09:00 Miscellaneous Information 1 ea NOTE XX ; Start 01/20/19 at 02:30 Miscellaneous Information (Pending [facility] Order For Wound Care) This patient huff... PRN PRN XX WOUND CARE; Start 01/20/19 at 08:30 Morphine Sulfate (morphine) 1 mg Q2H PRN IV breakthrough pain Last administered on 01/24/19 23:45; Admin Dose 1 MG; Start 01/20/19 at 12:30 Meropenem/Sodium Chloride 50 ml @ 100 mls/hr Q12 IVPB Last administered on 01/30/19 09:25; Admin Dose 100 MLS/HR; Start 01/21/19 at 21:00 Lorazepam (Ativan) 1 mg Q6H PRN IV AGITATION Last administered on 01/30/19 09:42; Admin Dose 1 MG; Start 01/21/19 at 18:00 Pantoprazole (Protonix Tab) 40 mg DAILY@06 PO Last administered on 01/30/19 05:49; Admin Dose 40 MG; Start 01/28/19 at 06:00 Naphazoline HCl (Clear Eyes / Naphcon) 2 drop Q4H PRN BOTH EYES EYE IRRITATION Last administered on 01/28/19 08:35; Admin Dose 2 DROP; Start 01/27/19 at 21:00 ABBY AL MD Jan 30, 2019 15:49
--- NOTE | 2019-01-30 16:09 | CONS ---
Assessment/Plan Assessment/Plan Assessment/Plan (Daily) - hypomagnesium- resloved 1. Acute kidney injury on CKD III due to ATN and prerenal azotemia BUN/Cr - 46/1.93 2. 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 acute on chronic respiratory failure s/p tracheostomy 4. Atrial fibrillation:rate controlled 5. H/o Diabetes melitus 6. H/O HTN 7. Dysphagia: Status post G-tube 8. UTI with Urine Cx growing Klebsiella ESBL Plan: Lasix 80mg po daily,BUN/Cr - 46/1.93 trended down if continues to rise then we will decrease lasix to 20mg PO BID IV abx meropenem for ESBL Klebsiella UTI Renally dose all abx, monitor electrolytes General surgery following will follow up Consultation Date/Type/Reason Admit Date/Time Jan 19, 2019 at 10:30 Type of Consult Oncology Date/Time of Note DATE: 01/30/19 TIME: 15:50 Past Medical History Medical History: high cholesterol, hypertension, other (See HPI) Home Meds Active Scripts Pantoprazole (Protonix) 40 Mg Tabec, 40 MG PO BID, #60 TAB 1 Refill Prov:NAYANA GARCIA S. 11/22/18 Reported Medications Calcium Citrate/Vitamin D (Citracal-Vitamin D 200 MG-250) 1 Each Tablet, 1 EACH PO BID, TAB 11/19/18 Ibuprofen* (Ibuprofen*) 600 Mg Tablet, 600 MG PO Q6H PRN for PAIN LEVEL 1-5, TAB 11/19/18 Hydralazine Hcl* (Hydralazine Hcl*) 50 Mg Tablet, 50 MG PO Q6H, #60 TAB 11/19/18 Metformin* (Glucophage*) 500 Mg Tab, 500 MG PO WITH BREAKFAST, #30 TAB 11/19/18 Multivitamins* (Theragran*) 1 Tab Tab, 1 TAB PO DAILY, TAB 11/19/18 Aripiprazole* (Abilify*) 5 Mg Tab, 5 MG PO DAILY, #30 TAB 11/19/18 Diltiazem Hcl* (Cardizem SR*) 120 Mg Cap.sr.12h, 120 MG PO Q12, CAP 11/19/18 Pioglitazone Hcl* (Pioglitazone Hcl*) 30 Mg Tablet, 30 MG PO DAILY, TAB 11/19/18 Escitalopram Oxalate* (Escitalopram Oxalate*) 20 Mg Tablet, 20 MG PO DAILY, #30 TAB 11/19/18 Benazepril Hcl* (Benazepril Hcl*) 20 Mg Tablet, 20 MG PO DAILY, #30 TAB 11/19/18 Tamsulosin Hcl* (Tamsulosin Hcl*) 0.4 Mg Cap.er.24h, 0.4 MG PO HS, CAP 11/19/18 Aspirin Ec (Aspir 81) 81 Mg Tablet.dr, 81 MG PO DAILY, #30 TAB 11/19/18 Loratadine* (Loratadine*) 10 Mg Tablet, 10 MG PO DAILY, #30 TAB 11/19/18 Potassium Chloride* (Potassium Chloride*) 8 Meq Capsule.er, 8 MEQ PO DAILY, CAP 11/19/18 Furosemide* (Furosemide*) 80 Mg Tablet, 80 MG PO DAILY, #30 TAB 11/19/18 Atenolol* (Atenolol*) 50 Mg Tablet, 50 MG PO DAILY, #30 TAB 11/19/18 Digoxin* (Lanoxin*) 0.25 Mg Tablet, 0.25 MG PO DAILY, TAB 11/19/18 Medications Current Medications Oxycodone/ Acetaminophen (Percocet (5/ 325)) 1 tab Q6H PRN GTB PAIN LEVEL 6-10 Last administered on 01/20/19at 09:05; Admin Dose 1 TAB; Start 01/19/19 at 20:30 Acetaminophen (Tylenol Tab) 650 mg Q6H PRN PEG MILD PAIN(1-3)OR ELEVATED TEMP Last administered on 01/26/19at 06:41; Admin Dose 650 MG; Start 01/19/19 at 20:30 IV Flush (NS 3 ml) 3 ml PER PROTOCOL IV ; Start 01/19/19 at 20:30 Ondansetron HCl (Zofran Inj) 4 mg Q6H PRN IV NAUSEA AND/OR VOMITING; Start 01/20/19 at 02:30 Albuterol (Ventolin Hfa) 4 puff Q2H RESP THERAPY PRN INH SHORTNESS OF BREATH; Start 01/20/19 at 02:30 Ipratropium [place] (Atrovent Hfa) 4 puff Q2H RESP THERAPY PRN INH SHORTNESS OF BREATH; Start 01/20/19 at 02:30 Atenolol (Tenormin) 25 mg DAILY PO Last administered on 01/30/19at 09:24; Admin Dose 25 MG; Start 01/20/19 at 09:00 Miscellaneous Information 1 ea NOTE XX ; Start 01/20/19 at 02:30 Miscellaneous Information (Pending [facility] Order For Wound Care) This patient huff... PRN PRN XX WOUND CARE; Start 01/20/19 at 08:30 Morphine Sulfate (morphine) 1 mg Q2H PRN IV breakthrough pain Last administered on 01/24/19 23:45; Admin Dose 1 MG; Start 01/20/19 at 12:30 Meropenem/Sodium Chloride 50 ml @ 100 mls/hr Q12 IVPB Last administered on 01/30/19 09:25; Admin Dose 100 MLS/HR; Start 01/21/19 at 21:00 Lorazepam (Ativan) 1 mg Q6H PRN IV AGITATION Last administered on 01/30/19 09:42; Admin Dose 1 MG; Start 01/21/19 at 18:00 Pantoprazole (Protonix Tab) 40 mg DAILY@06 PO Last administered on 01/30/19at 05:49; Admin Dose 40 MG; Start 01/28/19 at 06:00 Naphazoline HCl (Clear Eyes / Naphcon) 2 drop Q4H PRN BOTH EYES EYE IRRITATION Last administered on 01/28/19at 08:35; Admin Dose 2 DROP; Start 01/27/19 at 21:00 Allergies: Coded Allergies: No Known Allergy (Unverified , 01/20/19) Past Surgical History Past Surgical Hx: other (Tracheostomy, G tube, S/p Colon surgery now ) Social History Alcohol Use: none Smoking Status: Unknown if ever smoked Drug Use: none, other (Unknown) Exam/Review of Systems Exam Vitals Vital Signs Date Temp Pulse Resp B/P (MAP) Pulse Ox O2 O2 Flow FiO2 Time Delivery Rate 01/30/19 98.5 84 18 127/66 99 15:27 (86) 01/30/19 8.0 35 13:30 01/30/19 Aerosol 12:55 Intake and Output 01/29/19 01/29/19 01/30/19 1515:00 23:00 07:00 IntakeIntake Total 50 ml 1220 ml 1470 ml OutputOutput Total 10 ml 325 ml BalanceBalance 50 ml 1210 ml 1145 ml Results Result Diagram: 01/30/19 0620 01/30/19 0620 Results 24hrs Laboratory Tests Test 01/30/19 06:20 White Blood Count 8.0 Red Blood Count 3.39 L Hemoglobin 9.2 L Hematocrit 29.8 L Mean Corpuscular Volume 87.9 Mean Corpuscular Hemoglobin 27.1 L Mean Corpuscular Hemoglobin Concent 30.9 L Red Cell Distribution Width 15.1 H Platelet Count 436 #H Mean Platelet Volume 11.5 H Immature Granulocytes % 0.400 Neutrophils % 65.2 Lymphocytes % 21.7 Monocytes % 7.6 Eosinophils % 4.4 Basophils % 0.7 Nucleated Red Blood Cells % 0.0 Immature Granulocytes # 0.030 Neutrophils # 5.2 Lymphocytes # 1.7 Monocytes # 0.6 Eosinophils # 0.4 Basophils # 0.1 Nucleated Red Blood Cells # 0.0 Sodium Level 142 Potassium Level 4.2 Chloride Level 104 Carbon Dioxide Level 29 Anion Gap 9 Blood Urea Nitrogen 42 H Creatinine 1.62 H Est Glomerular Filtrat Rate mL/min Glucose Level 100 Calcium Level 8.9 Magnesium Level 2.0 Medications Medication Current Medications Oxycodone/ Acetaminophen (Percocet (5/ 325)) 1 tab Q6H PRN GTB PAIN LEVEL 6-10 Last administered on 01/20/19at 09:05; Admin Dose 1 TAB; Start 01/19/19 at 20:30 Acetaminophen (Tylenol Tab) 650 mg Q6H PRN PEG MILD PAIN(1-3)OR ELEVATED TEMP Last administered on 01/26/19at 06:41; Admin Dose 650 MG; Start 01/19/19 at 20:30 IV Flush (NS 3 ml) 3 ml PER PROTOCOL IV ; Start 01/19/19 at 20:30 Ondansetron HCl (Zofran Inj) 4 mg Q6H PRN IV NAUSEA AND/OR VOMITING; Start 01/20/19 at 02:30 Albuterol (Ventolin Hfa) 4 puff Q2H RESP THERAPY PRN INH SHORTNESS OF BREATH; Start 01/20/19 at 02:30 Ipratropium [place] (Atrovent Hfa) 4 puff Q2H RESP THERAPY PRN INH SHORTNESS OF BREATH; Start 01/20/19 at 02:30 Atenolol (Tenormin) 25 mg DAILY PO Last administered on 01/30/19 09:24; Admin Dose 25 MG; Start 01/20/19 at 09:00 Miscellaneous Information 1 ea NOTE XX ; Start 01/20/19 at 02:30 Miscellaneous Information (Pending [facility] Order For Wound Care) This patient huff... PRN PRN XX WOUND CARE; Start 01/20/19 at 08:30 Morphine Sulfate (morphine) 1 mg Q2H PRN IV breakthrough pain Last administered on 01/24/19 23:45; Admin Dose 1 MG; Start 01/20/19 at 12:30 Meropenem/Sodium Chloride 50 ml @ 100 mls/hr Q12 IVPB Last administered on 01/30/19 09:25; Admin Dose 100 MLS/HR; Start 01/21/19 at 21:00 Lorazepam (Ativan) 1 mg Q6H PRN IV AGITATION Last administered on 01/30/19 09:42; Admin Dose 1 MG; Start 01/21/19 at 18:00 Pantoprazole (Protonix Tab) 40 mg DAILY@06 PO Last administered on 01/30/19 05:49; Admin Dose 40 MG; Start 01/28/19 at 06:00 Naphazoline HCl (Clear Eyes / Naphcon) 2 drop Q4H PRN BOTH EYES EYE IRRITATION Last administered on 01/28/19 08:35; Admin Dose 2 DROP; Start 01/27/19 at 21:00 DORIAN MOSS Jan 30, 2019 16:00
[2019-01-30] MEDS ORDERED: ATROPINE 1 MG/10 ML SYRINGE ONE (21:47)
[2019-01-31] VITALS (14 sets, daily range): BP systolic 110–128; BP diastolic 61–88; PULSE 59–92; RESP 16–40
[2019-01-31] MEDS: PANTOPRAZOLE (EC) 40 MG TAB PO SCH (05:48)
[2019-01-31] MEDS: MEROPENEM 1 GM/50ML(PMX) 50 ML IVPB SCH (08:41)
--- NOTE | 2019-01-31 09:52 | CONS ---
Assessment/Plan Assessment/Plan Assessment/Plan (Daily) Assessment and recommendations; 1. Patient with history of chronic respiratory failure maintained on T-piece admitted for elective sigmoid resection due to recently diagnosed adenocarcinoma. 2. History of recent severe pneumonia with marked overall clinical improvement. 3. Interval resolution of encephalopathy. 4. 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 5. Mild anemia. 6. Possibly pelvic abscess. Currently on appropriate antimicrobial regimen. Continue current supportive care. Consider discharge to rehab center. Consultation Date/Type/Reason Admit Date/Time Jan 19, 2019 at 10:30 Initial Consult Date 01/21/19 Type of Consult Pulmonary Patient's condition is stable. Has remained hemodynamically stable. General exam; elderly male, on ventilator via tracheostomy, currently no d istress. Requesting Provider: GEO DELEON Date/Time of Note DATE: 01/31/19 TIME: 09:49 24 HR Interval Summary Free Text/Dictation Patient's condition is stable. Remains awake and alert. Has remained hemodynamically stable. Also exhibiting stable pulmonary status on T-piece. General exam; elderly male, awake alert, currently in no distress. Exam/Review of Systems Exam Vitals Vital Signs Date Temp Pulse Resp B/P (MAP) Pulse Ox O2 O2 Flow FiO2 Time Delivery Rate 01/31/19 66 29 95 30 08:44 01/31/19 98.2 110/71 07:33 (84) 01/30/19 8.0 19:46 01/30/19 Aerosol 18:24 Intake and Output 01/30/19 01/30/19 01/31/19 1414:59 22:59 06:59 IntakeIntake Total 1520 ml 970 ml OutputOutput Total 350 ml 575 ml BalanceBalance 1170 ml 395 ml Exam HEENT exam; supple neck, no JVD. No lymphadenopathy. Midline trachea. No thyromegaly. Tracheostomy in place. Attached to T piece. Patient has fair dentition. No neck masses. Chest exam; clear to auscultation. S1-S2 audible, no murmurs. Regular rhythm. Abdomen exam; soft, no organomegaly. Colostomy in place. G-tube in place. Midline dressing in place. Bowel sounds audible. Abdomen is nontender. Extremity exam; no peripheral edema clubbing. 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 Results Result Diagram: 01/30/19 0620 01/30/19 0620 Results 24hrs Laboratory Tests Test 01/30/19 21:47 01/31/19 04:09 Troponin I 0.037 0.026 Medications Medication Current Medications Oxycodone/ Acetaminophen (Percocet (5/ 325)) 1 tab Q6H PRN GTB PAIN LEVEL 6-10 Last administered on 01/20/19 09:05; Admin Dose 1 TAB; Start 01/19/19 at 20:30 Acetaminophen (Tylenol Tab) 650 mg Q6H PRN PEG MILD PAIN(1-3)OR ELEVATED TEMP Last administered on 01/26/19 06:41; Admin Dose 650 MG; Start 01/19/19 at 20:30 IV Flush (NS 3 ml) 3 ml PER PROTOCOL IV ; Start 01/19/19 at 20:30 Ondansetron HCl (Zofran Inj) 4 mg Q6H PRN IV NAUSEA AND/OR VOMITING; Start 01/20/19 at 02:30 Albuterol (Ventolin Hfa) 4 puff Q2H RESP THERAPY PRN INH SHORTNESS OF BREATH; Start 01/20/19 at 02:30 Ipratropium [place] (Atrovent Hfa) 4 puff Q2H RESP THERAPY PRN INH SHORTNESS OF BREATH; Start 01/20/19 at 02:30 Atenolol (Tenormin) 25 mg DAILY PO Last administered on 01/30/19 09:24; Admin Dose 25 MG; Start 01/20/19 at 09:00; Status Hold Miscellaneous Information 1 ea NOTE XX ; Start 01/20/19 at 02:30 [facility] This patient huff... PRN PRN XX WOUND CARE; Start 01/20/19 at 08:30 Morphine Sulfate (morphine) 1 mg Q2H PRN IV breakthrough pain Last administered on 01/24/19 23:45; Admin Dose 1 MG; Start 01/20/19 at 12:30 Meropenem/Sodium Chloride 50 ml @ 100 mls/hr Q12 IVPB Last administered on 01/31/19 08:41; Admin Dose 100 MLS/HR; Start 01/21/19 at 21:00 Lorazepam (Ativan) 1 mg Q6H PRN IV AGITATION Last administered on 01/30/19 09:42; Admin Dose 1 MG; Start 01/21/19 at 18:00 Pantoprazole (Protonix Tab) 40 mg DAILY@06 PO Last administered on 01/31/19 05:48; Admin Dose 40 MG; Start 01/28/19 at 06:00 Naphazoline HCl (Clear Eyes / Naphcon) 2 drop Q4H PRN BOTH EYES EYE IRRITATION Last administered on 01/28/19 08:35; Admin Dose 2 DROP; Start 01/27/19 at 21:00 OK SOOD Jan 31, 2019 09:52
--- NOTE | 2019-01-31 10:50 | CONS ---
Assessment/Plan Assessment/Plan Assessment/Plan (Daily) 1. Acute kidney injury on CKD III due to ATN and prerenal azotemia 2. 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 acute on chronic respiratory failure s/p tracheostomy 4. Atrial fibrillation:rate controlled 5. H/o Diabetes melitus 6. H/O HTN 7. Dysphagia: Status post G-tube 8. UTI with Urine Cx growing Klebsiella ESBL Plan: , BUN/C 42/1.62- other electrolytes stable IV abx meropenem for ESBL Klebsiella UTI Renally dose all abx, monitor electrolytes General surgery following will follow up Consultation Date/Type/Reason Admit Date/Time Jan 19, 2019 at 10:30 Initial Consult Date 01/21/19 Type of Consult NEPHROLOGY Requesting Provider: GEO DELEON Date/Time of Note DATE: 01/31/19 TIME: 10:50 Exam/Review of Systems Exam Vitals Vital Signs Date Temp Pulse Resp B/P (MAP) Pulse Ox O2 O2 Flow FiO2 Time Delivery Rate 01/31/19 90 20 98 Aerosol 8.0 35 10:00 Mask 01/31/19 98.2 110/71 07:33 (84) Intake and Output 01/30/19 01/30/19 01/31/19 1414:59 22:59 06:59 IntakeIntake Total 1520 ml 970 ml OutputOutput Total 350 ml 575 ml BalanceBalance 1170 ml 395 ml Results Result Diagram: 01/30/19 0620 01/30/19 0620 Results 24hrs Laboratory Tests Test 01/30/19 21:47 01/31/19 04:09 Troponin I 0.037 0.026 Medications Medication Current Medications Oxycodone/ Acetaminophen (Percocet (5/ 325)) 1 tab Q6H PRN GTB PAIN LEVEL 6-10 Last administered on 01/20/19at 09:05; Admin Dose 1 TAB; Start 01/19/19 at 20:30 Acetaminophen (Tylenol Tab) 650 mg Q6H PRN PEG MILD PAIN(1-3)OR ELEVATED TEMP Last administered on 01/26/19at 06:41; Admin Dose 650 MG; Start 01/19/19 at 20:30 IV Flush (NS 3 ml) 3 ml PER PROTOCOL IV ; Start 01/19/19 at 20:30 Ondansetron HCl (Zofran Inj) 4 mg Q6H PRN IV NAUSEA AND/OR VOMITING; Start 01/20/19 at 02:30 Albuterol (Ventolin Hfa) 4 puff Q2H RESP THERAPY PRN INH SHORTNESS OF BREATH; Start 01/20/19 at 02:30 Ipratropium [place] (Atrovent Hfa) 4 puff Q2H RESP THERAPY PRN INH SHORTNESS OF BREATH; Start 01/20/19 at 02:30 Atenolol (Tenormin) 25 mg DAILY PO Last administered on 01/30/19 09:24; Admin Dose 25 MG; Start 01/20/19 at 09:00; Status Hold Miscellaneous Information 1 ea NOTE XX ; Start 01/20/19 at 02:30 [facility] This patient huff... PRN PRN XX WOUND CARE; Start 01/20/19 at 08:30 Morphine Sulfate (morphine) 1 mg Q2H PRN IV breakthrough pain Last administered on 01/24/19 23:45; Admin Dose 1 MG; Start 01/20/19 at 12:30 Meropenem/Sodium Chloride 50 ml @ 100 mls/hr Q12 IVPB Last administered on 01/31/19 08:41; Admin Dose 100 MLS/HR; Start 01/21/19 at 21:00 Lorazepam (Ativan) 1 mg Q6H PRN IV AGITATION Last administered on 01/30/19 09:42; Admin Dose 1 MG; Start 01/21/19 at 18:00 Pantoprazole (Protonix Tab) 40 mg DAILY@06 PO Last administered on 01/31/19 05:48; Admin Dose 40 MG; Start 01/28/19 at 06:00 Naphazoline HCl (Clear Eyes / Naphcon) 2 drop Q4H PRN BOTH EYES EYE IRRITATION Last administered on 01/28/19 08:35; Admin Dose 2 DROP; Start 01/27/19 at 21:00 RENAN HERNANDEZ MD Jan 31, 2019 10:50
[2019-01-31] MEDS ORDERED: BARIUM SULFATE 135 ML (E-Z HD) PO ONE (12:40)
--- NOTE | 2019-01-31 12:48 | CONS ---
Assessment/Plan Assessment/Plan Hospital Course (Demo Recall) IMPRESSION: 1. Tachycardia, intermittent consistent with sinus tachycardia, likely in the setting of pain and anxiety-improved 2. Hypotension, borderline after given pain meds, ensure good volume status.- now improved and stable 3. Abnormal electrocardiogram, right bundle branch block, secondary repolarization abnormalities, assess for heart block, rule out acute coronary syndrome postoperatively. 4. Colon carcinoma, status post resection and now s/p abd CT with questionable liver lesion 5. Anemia. 6. Renal failure- worsening renal function 7. Altered mental state/encephalopathy. 8. Diabetes mellitus. 9. Leukocytosis. 10. Hypernatremia-resolved 11. Fevers 12. Pause-overnight up to 3.6 seconds. ? primary cardiac versus pulmonary as patient trached. Trop neg x 2 since pauses Recc: -Tele -Holding BB and following for any recurrent pause -Follow volume status and creatnine closely with lasix still held in the setting of ARF -Continue abx's and f/u cx data -Rx fevers -pain control -Ongoing Onc eval -Ongoing renal f/u -Barium swallow today Consultation Date/Type/Reason Admit Date/Time Jan 19, 2019 at 10:30 Initial Consult Date 01/20/19 Type of Consult Cardiology Reason for Consultation tachycardia/arrythmia/nstemi Requesting Provider: GEO DELEON Date/Time of Note DATE: 01/31/19 TIME: 12:44 Exam/Review of Systems Vital Signs Vitals Vital Signs Date Temp Pulse Resp B/P (MAP) Pulse Ox O2 O2 Flow FiO2 Time Delivery Rate 01/31/19 97.5 76 18 115/62 97 10:53 (79) 01/31/19 Aerosol 8.0 35 10:00 Mask Intake and Output 01/30/19 01/30/19 01/31/19 1414:59 22:59 06:59 IntakeIntake Total 1520 ml 970 ml OutputOutput Total 350 ml 575 ml BalanceBalance 1170 ml 395 ml Exam Exam Review of Systems: CONSTITUTIONAL: No fevers, chills. PULMONARY: No sob CARDIOVASCULAR:pauses overnight GASTROINTESTINAL: No nausea/vomiting. GENITOURINARY: No hematuria/dysuria. MUSCULOSKELETAL: No myagias/arthalgias. PSYCHIATRIC: The patient denies depression. NEUROLOGIC: No weakness Constitutional: alert, oriented Neck: jvd (9 cm water), other (trached) Respiratory: diminished breath sounds (at bases/B) Cardiovascular: regular rate and rhythm Gastrointestinal: soft, non-tender Musculoskeletal: muscle tone (normal) Extremities: edema (none) Labs Result Diagram: 01/30/1961901/30/19619 Results 24hrs Laboratory Tests Test 01/30/19 21:47 01/31/19 04:09 Troponin I 0.037 0.026 Medications Medications Current Medications Oxycodone/ Acetaminophen (Percocet (5/ 325)) 1 tab Q6H PRN GTB PAIN LEVEL 6-10 Last administered on 01/20/19at 09:05; Admin Dose 1 TAB; Start 01/19/19 at 20:30 Acetaminophen (Tylenol Tab) 650 mg Q6H PRN PEG MILD PAIN(1-3)OR ELEVATED TEMP Last administered on 01/26/19at 06:41; Admin Dose 650 MG; Start 01/19/19 at 20:30 IV Flush (NS 3 ml) 3 ml PER PROTOCOL IV ; Start 01/19/19 at 20:30 Ondansetron HCl (Zofran Inj) 4 mg Q6H PRN IV NAUSEA AND/OR VOMITING; Start 01/20/19 at 02:30 Albuterol (Ventolin Hfa) 4 puff Q2H RESP THERAPY PRN INH SHORTNESS OF BREATH; Start 01/20/19 at 02:30 Ipratropium [place] (Atrovent Hfa) 4 puff Q2H RESP THERAPY PRN INH SHORTNESS OF BREATH; Start 01/20/19 at 02:30 Atenolol (Tenormin) 25 mg DAILY PO Last administered on 01/30/19at 09:24; Admin Dose 25 MG; Start 01/20/19 at 09:00; Status Hold Miscellaneous Information 1 ea NOTE XX ; Start 01/20/19 at 02:30 Miscellaneous Information (Pending [facility] Order For Wound Care) This patient huff... PRN PRN XX WOUND CARE; Start 01/20/19 at 08:30 Morphine Sulfate (morphine) 1 mg Q2H PRN IV breakthrough pain Last administered on 01/24/19at 23:45; Admin Dose 1 MG; Start 01/20/19 at 12:30 Meropenem/Sodium Chloride 50 ml @ 100 mls/hr Q12 IVPB Last administered on 01/31/19 08:41; Admin Dose 100 MLS/HR; Start 01/21/19 at 21:00 Lorazepam (Ativan) 1 mg Q6H PRN IV AGITATION Last administered on 01/30/19 09:42; Admin Dose 1 MG; Start 01/21/19 at 18:00 Pantoprazole (Protonix Tab) 40 mg DAILY@06 PO Last administered on 01/31/19 05:48; Admin Dose 40 MG; Start 01/28/19 at 06:00 Naphazoline HCl (Clear Eyes / Naphcon) 2 drop Q4H PRN BOTH EYES EYE IRRITATION Last administered on 01/28/19 08:35; Admin Dose 2 DROP; Start 01/27/19 at 21:00 TWAN ESTEVEZ Jan 31, 2019 12:48
--- NOTE | 2019-01-31 13:04 | CONS ---
Assessment/Plan Assessment/Plan Hospital Course (Demo Recall) No acute events overnight. Patient is awake and looks comfortable no fevers overnight Microbiology: Repeat urine culture from 2 days ago negative, urine culture on admission grew Klebsiella ESBL. Blood cultures pending. Abx: Merrem Indwelling: Trach, PEG, abdominal ELIUD, [place] PHYSICAL EXAMINATION: GENERAL: This is a well-developed, chronically ill-appearing, elderly man who is noncommunicative, looks comfortable. The patient is in no distress. HEENT: Head is atraumatic, normocephalic. Sclerae are anicteric. Buccal mucosa is dry. NECK: Supple. CHEST: Rise symmetrical. Breath sounds diminished to bases. HEART: S1, S2. ABDOMEN: Soft. Bowel tones are present. EXTREMITIES: Without cyanosis. Assessment: 1. Status post fevers 2. Questionable pelvic abscess 3. 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 Status post urinary tract infection 5. Chronic respiratory failure and dysphagia 6. Acute kidney injury Plan: Patient remains stable, no fevers, continue present care, recommend another 7 days of at least antibiotics, possible transfer to [place] Consultation Date/Type/Reason Admit Date/Time Jan 19, 2019 at 10:30 Initial Consult Date 01/21/19 Type of Consult id Requesting Provider: GEO DELEON Date/Time of Note DATE: 01/31/19 TIME: 13:03 Exam/Review of Systems Exam Vitals Vital Signs Date Temp Pulse Resp B/P (MAP) Pulse Ox O2 O2 Flow FiO2 Time Delivery Rate 01/31/19 97.5 76 18 115/62 97 10:53 (79) 01/31/19 Aerosol 8.0 35 10:00 Mask Intake and Output 01/30/19 01/30/19 01/31/19 1414:59 22:59 06:59 IntakeIntake Total 1520 ml 970 ml OutputOutput Total 350 ml 575 ml BalanceBalance 1170 ml 395 ml Results Result Diagram: 01/30/1961901/30/19 0620 Results 24hrs Laboratory Tests Test 01/30/19 21:47 01/31/19 04:09 Troponin I 0.037 0.026 Medications Medication Current Medications Oxycodone/ Acetaminophen (Percocet (5/ 325)) 1 tab Q6H PRN GTB PAIN LEVEL 6-10 Last administered on 01/20/19 09:05; Admin Dose 1 TAB; Start 01/19/19 at 20:30 Acetaminophen (Tylenol Tab) 650 mg Q6H PRN PEG MILD PAIN(1-3)OR ELEVATED TEMP Last administered on 01/26/19 06:41; Admin Dose 650 MG; Start 01/19/19 at 20:30 IV Flush (NS 3 ml) 3 ml PER PROTOCOL IV ; Start 01/19/19 at 20:30 Ondansetron HCl (Zofran Inj) 4 mg Q6H PRN IV NAUSEA AND/OR VOMITING; Start 01/20/19 at 02:30 Albuterol (Ventolin Hfa) 4 puff Q2H RESP THERAPY PRN INH SHORTNESS OF BREATH; Start 01/20/19 at 02:30 Ipratropium [place] (Atrovent Hfa) 4 puff Q2H RESP THERAPY PRN INH SHORTNESS OF BREATH; Start 01/20/19 at 02:30 Atenolol (Tenormin) 25 mg DAILY PO Last administered on 01/30/19 09:24; Admin Dose 25 MG; Start 01/20/19 at 09:00; Status Hold Miscellaneous Information 1 ea NOTE XX ; Start 01/20/19 at 02:30 Miscellaneous Information (Pending [facility] Order For Wound Care) This patient huff... PRN PRN XX WOUND CARE; Start 01/20/19 at 08:30 Morphine Sulfate (morphine) 1 mg Q2H PRN IV breakthrough pain Last administered on 01/24/19 23:45; Admin Dose 1 MG; Start 01/20/19 at 12:30 Meropenem/Sodium Chloride 50 ml @ 100 mls/hr Q12 IVPB Last administered on 01/31/19 08:41; Admin Dose 100 MLS/HR; Start 01/21/19 at 21:00 Lorazepam (Ativan) 1 mg Q6H PRN IV AGITATION Last administered on 01/30/19 09:42; Admin Dose 1 MG; Start 01/21/19 at 18:00 Pantoprazole (Protonix Tab) 40 mg DAILY@06 PO Last administered on 01/31/19 05:48; Admin Dose 40 MG; Start 01/28/19 at 06:00 Naphazoline HCl (Clear Eyes / Naphcon) 2 drop Q4H PRN BOTH EYES EYE IRRITATION Last administered on 01/28/19at 08:35; Admin Dose 2 DROP; Start 01/27/19 at 21:00 GEENA KENDALL NP Jan 31, 2019 13:04
--- NOTE | 2019-01-31 17:07 | PN ---
Date/Time of Note Date/Time of Note DATE: 01/31/19 TIME: 17:04 Assessment/Plan Lines/Catheters IV Catheter Type (from [facility]): Mid Line Ballard in Place (from [facility]): No Assessment/Plan Chief Complaint/Hosp Course 1. Sigmoid/rectal adenocarcinoma with obstruction, status post stent and significant adhesions, colorectal bleed with anemia: Status post laparoscopic converted to open low anterior resection with end colostomy and laparoscopic appendectomy 01/19/19; CT noted: Possible abscess> discussed with IR who recommends medical mgt (abx tx), no drainage Path: Moderately differentiated adenocarcinoma with ulceration and marked luminal stenosis involving upper rectum, invades muscularis propria into pericolorectal tissue, focally involving mesenteric margin and colonic serosa. -- Metastatic adenocarcinoma with extranodal extension involving twelve (12) of nineteen (19) mesenteric lymph nodes, associated with tumor deposits. -Antibiotics per ID -continue tube feeds titrate to goal, monitor bowel function -PT -ice pack to abdominal wall prn -continue Drain -oncology f/u 2. Fever: resolved -As above -close monitoring 3. UTI : Possible cystitis per recent CT -Urology follow-up -frequent bladder emptying/cath care 4. Hypochromic anemia: Some blood noted in ostomy bag; drop in H&H: Status post PRBC transfusion -Monitor for now and transfuse as needed 5. VDRF: Mild bibasilar atelectasis versus airspace disease -Pulmonary toilet 6. Dysphagia status post PEG tube. Failed swallow eval. -tube feed as tolerated 7. SIMI: Cr improving -Limit nephrotoxic meds -Renally dose meds -Judicious fluids Thank you Subjective 24 Hr Interval Summary Didnt pass swallow eval. Tachypnic and tachycardic during process. Bowel function per ostomy. No fevers, chills, sob, congested cough, cp, palpitations, huff, dizziness, n/v. Tolerating TFs. Exam/Review of Systems Vital Signs Vitals Vital Signs Date Temp Pulse Resp B/P (MAP) Pulse Ox O2 O2 Flow FiO2 Time Delivery Rate 01/31/19 93 20 100 30 15:30 01/31/19 97.5 119/61 15:14 (80) 01/31/19 Aerosol 10.0 13:35 Mask Intake and Output 01/30/19 01/30/19 01/31/19 1515:00 23:00 07:00 IntakeIntake Total 50 ml 1470 ml 970 ml OutputOutput Total 350 ml 575 ml BalanceBalance 50 ml 1120 ml 395 ml Exam Free Text/Dictation Constitutional: alert; follows simple commands Psych: confusion Head: normocephalic, atraumatic Eyes: nl conjunctiva, nl lids, nl sclera ENMT: nl external ears & nose, mucosa pink and moist; No nl lips & teeth (Edentulous-bottom) Neck: supple, non-tender, other (Tracheostomy) Respiratory: normal air movement; No congested cough, No labored breathing Cardiovascular: regular rate and rhythm (Sinus rhythm); No edema Gastrointestinal: soft, distended (Minimal), other (Incision sites: (Midline: Staple line clean, no cristina-incisional erythema/drainage); ELIUD drain serosanguineous; colostomy with darkened discoloration) Genitourinary - Male: nl penis, nl scrotum Musculoskeletal: nl extremities to inspection Extremities: normal pulses, pitting pedal edema Neurological: confused; No nl mental status, No nl speech, No nl strength (Generalized weakness) Skin: No rash or lesions Results Result Diagram: 01/30/1961901/30/19619 NIMO HOPKINS MD Jan 31, 2019 17:07
--- NOTE | 2019-01-31 18:35 | RADRPT ---
Vent Rate: 56 bpm RR Interval: 0 msec NM Interval: 200 msec QRS Duration: 144 msec QT Interval: 430 msec QTC Interval: 414 msec P-R-T [place]: 78 - 80 - -85 degrees Sinus bradycardia with marked sinus arrhythmia Right bundle branch block T wave abnormality, consider inferior ischemia Abnormal ECG Electronically Signed By: Alec Ferro
--- NOTE | 2019-01-31 19:08 | DS ---
Date/Time of Note Date/Time of Note DATE: 01/31/19 TIME: 19:01 Discharge Summary Admission/Discharge Info Admit Date/Time Jan 19, 2019 at 10:30 Discharge Date/Time January 31, 2019 Discharge Diagnosis 1. Sigmoid/colon carcinoma with a history of stent: Now status post laparoscopic converted to open resection with end colostomy and questionable abscess -No indication for intervention, recommendation is to continue antibiotics for the 7 days -DC back to [place] 2. Trach dependent respiratory failure: Currently on a vent -Pulmonary to manage at [place] 3. Atrial fibrillation: Continue meds. Adjust as needed. Will hold Cardizem and atenolol given current hypotension 4. Hypotension-resolved -Improved with bolus 5. Diabetes: Insulin 6. Acute kidney injury on CKD -Nephrology consultation appreciated 7. UTI -Urine culture is growing Klebsiella pneumonia ESBL -Continue meropenem -UA is positive 8. Dysphagia: Status post G-tube Patient Condition: Good Hospital Course Patient is a 78-year-old male who is trach dependent with a history of diabetes, atrial fibrillation, obstructive uropathy, dysphagia status post G-tube, sigmoid/colon carcinoma status post stent admitted to ICU status post Laparoscopic converted to open low anterior resection with end colostomy, splenic mobilization and a laparoscopic appendectomy. Patient did have a questionable postop abscess has been treated with IV antibiotics per surgery and IR. Patient is being seen by ID and recommendation is to continue meropenem for at least 7 days at [place]. On the day of discharge patient vitals, labs and physical exam are stable. Home Meds Active Scripts Pantoprazole (Protonix) 40 Mg Tabec, 40 MG PO BID, #60 TAB 1 Refill Prov:NAYANA GARCIA 11/22/18 Reported Medications Calcium Citrate/Vitamin D (Citracal-Vitamin D 200 MG-250) 1 Each Tablet, 1 EACH PO BID, TAB 11/19/18 Ibuprofen* (Ibuprofen*) 600 Mg Tablet, 600 MG PO Q6H PRN for PAIN LEVEL 1-5, TAB 11/19/18 Hydralazine Hcl* (Hydralazine Hcl*) 50 Mg Tablet, 50 MG PO Q6H, #60 TAB 11/19/18 Metformin* (Glucophage*) 500 Mg Tab, 500 MG PO WITH BREAKFAST, #30 TAB 11/19/18 Multivitamins* (Theragran*) 1 Tab Tab, 1 TAB PO DAILY, TAB 11/19/18 Aripiprazole* (Abilify*) 5 Mg Tab, 5 MG PO DAILY, #30 TAB 11/19/18 Diltiazem Hcl* (Cardizem SR*) 120 Mg Cap.sr.12h, 120 MG PO Q12, CAP 11/19/18 Pioglitazone Hcl* (Pioglitazone Hcl*) 30 Mg Tablet, 30 MG PO DAILY, TAB 11/19/18 Escitalopram Oxalate* (Escitalopram Oxalate*) 20 Mg Tablet, 20 MG PO DAILY, #30 TAB 11/19/18 Benazepril Hcl* (Benazepril Hcl*) 20 Mg Tablet, 20 MG PO DAILY, #30 TAB 11/19/18 Tamsulosin Hcl* (Tamsulosin Hcl*) 0.4 Mg Cap.er.24h, 0.4 MG PO HS, CAP 11/19/18 Aspirin Ec (Aspir 81) 81 Mg Tablet.dr, 81 MG PO DAILY, #30 TAB 11/19/18 Loratadine* (Loratadine*) 10 Mg Tablet, 10 MG PO DAILY, #30 TAB 11/19/18 Potassium Chloride* (Potassium Chloride*) 8 Meq Capsule.er, 8 MEQ PO DAILY, CAP 11/19/18 Furosemide* (Furosemide*) 80 Mg Tablet, 80 MG PO DAILY, #30 TAB 11/19/18 Atenolol* (Atenolol*) 50 Mg Tablet, 50 MG PO DAILY, #30 TAB 11/19/18 Digoxin* (Lanoxin*) 0.25 Mg Tablet, 0.25 MG PO DAILY, TAB 11/19/18 Follow-up Plan Follow-up with physicians at [place] Primary Care Provider Alvin Elizabeth [facility] MD Susanne Time spent on discharge: > 30 minutes GEO DELEON Jan 31, 2019 19:08
== END 2019-01-31 19:09 | DRG 329 ==
LOC: ICU 10:30 → 6WM 01-22 20:32 → BAR 01-31 18:41
PROVIDERS: ADMIT Internal Medicine; ATTEND Internal Medicine
PROC: 0DBP0ZZ Excision of Rectum, Open Approach (ICD-10-PCS; 2019-01-19)
PROC: 0D1M0Z4 Bypass Descending Colon to Cutaneous, Open Approach (ICD-10-PCS; 2019-01-19)
PROC: 0DJD4ZZ Inspection of Lower Intestinal Tract, Percutaneous Endoscopic Approach (ICD-10-PCS; 2019-01-19)
PROC: 0DN80ZZ Release Small Intestine, Open Approach (ICD-10-PCS; 2019-01-19)
PROC: 0DNE0ZZ Release Large Intestine, Open Approach (ICD-10-PCS; 2019-01-19)
PROC: 0DTJ0ZZ Resection of Appendix, Open Approach (ICD-10-PCS; 2019-01-19)
PROC: 0TNB0ZZ Release Bladder, Open Approach (ICD-10-PCS; 2019-01-19)
PROC: 0DJD8ZZ Inspection of Lower Intestinal Tract, Via Natural or Artificial Opening Endoscopic (ICD-10-PCS; 2019-01-19)
PROC: 0DTN0ZZ Resection of Sigmoid Colon, Open Approach (ICD-10-PCS; principal; 2019-01-19 16:30)
PROC: 5A1955Z Respiratory Ventilation, Greater than 96 Consecutive Hours (ICD-10-PCS; 2019-01-20)
PROC: 30233N1 Transfusion of Nonautologous Red Blood Cells into Peripheral Vein, Percutaneous Approach (ICD-10-PCS; 2019-01-21)
DX: C19 Malignant neoplasm of rectosigmoid junction (principal); N17.0 Acute kidney failure with tubular necrosis; J96.20 Acute and chronic respiratory failure, unspecified whether with hypoxia or hypercapnia; K65.1 Peritoneal abscess; G93.40 Encephalopathy, unspecified; E87.0 Hyperosmolality and hypernatremia; N39.0 Urinary tract infection, site not specified; K62.5 Hemorrhage of anus and rectum; C77.2 Secondary and unspecified malignant neoplasm of intra-abdominal lymph nodes; G72.81 Critical illness myopathy; I48.91 Unspecified atrial fibrillation; E11.22 Type 2 diabetes mellitus with diabetic chronic kidney disease; B96.1 Klebsiella pneumoniae [K. pneumoniae] as the cause of diseases classified elsewhere; R13.10 Dysphagia, unspecified; D50.0 Iron deficiency anemia secondary to blood loss (chronic); K66.0 Peritoneal adhesions (postprocedural) (postinfection); N32.89 Other specified disorders of bladder; I95.81 Postprocedural hypotension; I25.2 Old myocardial infarction; I12.9 Hypertensive chronic kidney disease with stage 1 through stage 4 chronic kidney disease, or unspecified chronic kidney disease; N18.3 Chronic kidney disease, stage 3 (moderate); N40.1 Benign prostatic hyperplasia with lower urinary tract symptoms; R33.8 Other retention of urine; N13.9 Obstructive and reflux uropathy, unspecified; Z93.1 Gastrostomy status; Z93.0 Tracheostomy status
CPT/HCPCS: 36430; 36600; 71045; 71260; 74177; 74230; 80048; 80053; 81001; 82550; 82553; 82803; 82962; 83605; 83735; 84484; 85025; 85610; 85730; 86850; 86900; 86901; 86920; 87040; 87081; 87086; 87205; 88304; 88305; 92526; 92610; 92611; 93005; 94002; 94003; 97110; 97162; 97530; C9113; J0461; J0690; J1170; J1815; J2060; J2185; J2270; J2370; J2405; J3475; J3480; J7030; J7040; J7042; J7070; P9016; P9045; Q4166; Q9967

== ENCOUNTER → 2019-06-09 | Outpatient (CLI) | payer MEDICARE, OTHER ==
[~2019-06-09] MED LIST changes: +BARIUM SULF 2% 450 ML BTL (BERRY SMOOTHIE) PO ONE; +IODIXANOL LOCM 100 ML BTL ONE; +SOD CHLORIDE 0.9% 100 ML ONE
== END | disposition home or self-care (01) ==
LOC: C/S 14:54
PROVIDERS: ATTEND Internal Medicine Hematology & Oncology
DX: C18.9 Malignant neoplasm of colon, unspecified (principal)
CPT/HCPCS: 74178; Q9967